=== PATIENT | female | born 1950 | race Caucasian/White ===

== ENCOUNTER 2017-04-25 09:00 | Emergency (ER) | payer MEDICARE, MEDICAID, SELFPAY ==
[2017-04-25 09:00] VITALS: BP 155/60; PULSE 74; RESP 18; TEMP 37.9; O2SAT 96; BMI 32.0
--- NOTE | 2017-04-25 09:07 | RAD_ITS ---
STUDY: X-RAY CHEST REASON FOR EXAM: Female, 67 years old. Fever and productive cough. TECHNIQUE: PA and lateral views of the chest. COMPARISON: Comparison is made with prior study dated April 19, 2015. FINDINGS: Right infrahilar infiltrate. There is no demonstrated pleural abnormality. Normal size heart. Normal mediastinum and artis. Normal visualized pulmonary arteries. There is atherosclerotic calcification of the aortic arch with tortuosity. There are degenerative changes of the visualized thoracic spine. Normal visualized ribs, clavicles, and shoulders. There is no demonstrated abnormality of the visualized soft tissue structures of the upper abdomen. RAD/Chest PA and Lateral IMPRESSION: Right infrahilar infiltrate. Electronically Signed: Brown Yanes MD at 9:59 EST Tel [phone], Service support ,
--- NOTE | 2017-04-25 09:14 | ED.VISSUMM ---
- ER Visit Summary Date of Service: 04/25/17 Chief Complaint: Headache, fever with chills, productive cough and myalgias arthralgias that started last evening History of Present Illness: The patient is a 67 F multiple medical problems who presents with flulike symptoms that started last evening. She complains of headache without photophobia or neck stiffness. She denies rash. She does complain of rhinorrhea, nasal congestion postnasal drainage as well as sore throat. She denies ear discomfort. She does have a cough which is productive. She states she has not looked at her sputum. She denies any chest pain. She does complain of myalgias and arthralgias. She states she did get a flu shot this year. She continues to smoke. She has no GI or symptoms. Please read written note for complete review of systems, which was otherwise negative. Physical Examination: No signs are marked for an elevated temperature and blood pressure. She appears ill. She does not appear toxic. HEENT exam is remarkable for rhinorrhea and postnasal drainage. There is no erythema or exudate. Neck is supple. TMs are normal. She has no photophobia. Lungs are clear to auscultation with good mirror bilateral. Heart is regular without murmur, gallop or rub. There is no asymmetry, swelling, discoloration, leg vein distention, palpable cords or tenderness along the distribution of the deep venous system. There are no skin lesions or rash noted. Exam is nonfocal. Test Results: Chest x-ray was reviewed by me and reveals an infiltrate on the lateral only. The radiologist interpretation was read and he is in agreement. Emergency Department Course and Treatment: Since patient has history of COPD and reports productive cough chest x-ray was obtained and rapid influenza test. Treatment Plan: She is not febrile, tachypnic, tachycardic or hypoxic she was treated as an outpatient. She received her first dose of antibiotic in the department. She was instructed to follow-up with Dr. Calero or Dr. Marx if not better within 48-72 hours. Disposition: Discharged to home Impression: Community-acquired pneumonia This note was generated with [employer] dictation software. It may contain incorrect words, spelling, and punctuation that were not noted in review of the chart prior to signing ED Disposition - Plan for ED Patient: Disposition: Home or Assisted Living Chief Complaint: Fever Instructions: ED Pneumonia Adult Prescriptions: Doxycycline [Vibramycin] 100 mg PO BID #14 cap Referrals: Feng Hayes MD [Primary Care Provider] - 3-5 Days if not improving Additional Instructions: Your prescription was electronically transmitted to [facility] [place] your designated pharmacy of choice
[2017-04-25 10:35] VITALS: O2SAT 95
[2017-04-25 10:45] VITALS: BP 162/68; PULSE 67; RESP 18; TEMP 39; O2SAT 95
[2017-04-25] MEDS: Doxycycline 100 MG CAPSULE PO (10:51)
--- NOTE | 2017-04-25 10:56 | ED.RN ---
1052-Verbal and written d/c instructions given. All questions answered. Aware of when to come back to ED and when to follow up with PCP. Gait slow and steady out of department.
== END 2017-04-25 10:55 | disposition home or self-care (01) ==
PROVIDERS: Emergency Provider Emergency Medicine; Family Provider Family Medicine; PCP Family Medicine
DX: J18.9 Pneumonia, unspecified organism (principal); J34.89 Other specified disorders of nose and nasal sinuses; R09.81 Nasal congestion; R09.82 Postnasal drip; J02.9 Acute pharyngitis, unspecified; I25.10 Atherosclerotic heart disease of native coronary artery without angina pectoris; J44.9 Chronic obstructive pulmonary disease, unspecified; I10 Essential (primary) hypertension; E78.00 Pure hypercholesterolemia, unspecified; I73.9 Peripheral vascular disease, unspecified; Z79.01 Long term (current) use of anticoagulants; Z79.02 Long term (current) use of antithrombotics/antiplatelets; Z79.899 Other long term (current) drug therapy; Z72.0 Tobacco use
CPT/HCPCS: 71046; 87804; 99283

== ENCOUNTER 2017-04-26 11:20 | Emergency (ER) | payer MEDICARE, MEDICAID, SELFPAY ==
[2017-04-26 11:22] VITALS: BP 123/67; PULSE 79; RESP 20; TEMP 38.3; O2SAT 94; BMI 32.0
[2017-04-26 11:50] VITALS: O2SAT 92
--- NOTE | 2017-04-26 12:00 | ED.VISSUMM ---
- ER Visit Summary Date of Service: 04/26/17 Chief Complaint: Seen yesterday for pneumonia and no better History of Present Illness: The patient is a 67 F seen by me yesterday and diagnosed with pneumonia. She was placed on antibiotics. She is taken a total of 3 doses. She was given first dose in the emergency department. She took a dose last evening and 1 dose today. She states she does not feel better. She denies headache, visual, ocular or auditory symptoms. Her cough is productive. There is no chest pain. There is no leg pain, swelling discoloration. She has no GI or symptoms. Daughter stated I want her admitted . Physical Examination: Vital signs are unremarkable. She is not hypoxic. She is not tachycardic or tachypneic. She is febrile with temperature 101 which is an improvement from yesterday. She does not appear ill or toxic. HEENT exam is remarkable for nasal congestion. Lungs reveal diminished breath sounds posteriorly on the right in the area of the infiltrate noted on x-ray obtained yesterday. There is egophony. Heart is regular without murmur, gallop or rub. Abdomen is soft nontender. Lower extremity exam reveals no swelling, discoloration, asymmetry, leg vein distention, palpable cords times on the disposition deep venous system. She is alert oriented ?3. Test Results: She was ambulated. Prior to ambulation pulse ox 93% on room air. During ambulation her pulse ox went up to 95%. Emergency Department Course and Treatment: Since she is not tachycardic, tachypnic or hypoxic and is not worse than yesterday and if anything better than yesterday based on my exam patient will be discharged home. Both the patient and the daughter were informed she does not meet criteria for admission. Daughter seemed miffed. Treatment Plan: To new antibiotics. Stop smoking. Disposition: Discharge to home to follow-up with her primary care physician Impression: Community acquired pneumonia, reevaluation This note was generated with [employer] dictation software. It may contain incorrect words, spelling, and punctuation that were not noted in review of the chart prior to signing ED Disposition - Plan for ED Patient: Disposition: Home or Assisted Living Chief Complaint: Shortness of Breath Instructions: ED Pneumonia Adult Referrals: Feng Hayes MD [Primary Care Provider] - 1-2 Days if not improving Additional Instructions: It is in your best interest to stop smoking.
[2017-04-26 12:08] VITALS: BP 138/79; PULSE 91; RESP 22; O2SAT 94
--- NOTE | 2017-04-26 12:09 | ED.RN ---
THIS NURSE REVIEWED D/C INSTRUCTIONS WITH PT. PT VERBALIZED UNDERSTANDING OF INSTRUCTIONS. PT DENIES FURTHER NEEDS OR QUESTIONS AT THIS TIME
== END 2017-04-26 12:10 | disposition home or self-care (01) ==
PROVIDERS: Emergency Provider Emergency Medicine; Family Provider Family Medicine; PCP Family Medicine
DX: J18.9 Pneumonia, unspecified organism (principal); E66.9 Obesity, unspecified; I25.10 Atherosclerotic heart disease of native coronary artery without angina pectoris; J44.9 Chronic obstructive pulmonary disease, unspecified; I10 Essential (primary) hypertension; E78.00 Pure hypercholesterolemia, unspecified; I25.2 Old myocardial infarction; I48.91 Unspecified atrial fibrillation; Z79.2 Long term (current) use of antibiotics; Z79.02 Long term (current) use of antithrombotics/antiplatelets; Z79.01 Long term (current) use of anticoagulants; Z79.899 Other long term (current) drug therapy; Z72.0 Tobacco use
CPT/HCPCS: 99282

== ENCOUNTER → 2017-05-06 09:48 | Outpatient (CLI) | payer MEDICARE, MEDICAID, SELFPAY ==
--- NOTE | 2017-05-06 11:00 | ADU_ITS ---
Reason For Study: PVD Right Velocities Left Velocities Common Femoral Artery, mid = 163 cm./sec. Common Femoral Artery, mid = 193 cm./sec. Supf Femoral Artery, prox = 41.6 cm./sec. Supf. Femoral Artery, prox = 172 cm./sec. Unable to obtain flow from SFA prox/mid through SFA prox/mid= 255 cm/s. SFA distal. Supf. Femoral Artery, mid = 61.3 cm./sec. Profunda Femoral Artery = 151 cm./sec. Supf. Femoral Artery, dist = 73.1 cm./sec. Popliteal Artery, mid = 63.9 cm./sec. Profunda Femoral Artery = 372 cm./sec. Post. Tibial Artery, prox = 61.6 cm./sec. Popliteal Artery, mid = 130 cm./sec. Post. Tibial Artery, mid = 65.7 cm./sec. Post. Tibial Artery, prox = 83.8 cm./sec. Post. Tibial Artery, dist = 78.6 cm./sec. Post Tibial Artery, mid = 102 cm./sec. Peroneal Artery, prox = 35.2 cm./sec. Post Tibial Artery, dist. = 256 cm./sec. Peroneal Artery, mid = 42.8 cm./sec. Peroneal Artery, prox = 45.7 cm./sec. Peroneal Artery,dist = 36.9 cm./sec. Peroneal Artery, mid = 76.8 cm./sec. Ant. Tibial Artery, prox = 24.6 cm./sec. Peroneal Artery,dist. = 81.5 cm./sec. Ant. Tibial Artery, mid = 34.6 cm./sec. Ant.Tibial Artery, prox = 38.1 cm./sec. Ant. Tibial Artery, dist = 35.8 cm./sec. Ant. Tibial Artery, distal = 69.8 cm./sec. Unable to obtain flow in Mid KELLY. Interpretation Summary Occluded right superficial femoral artery. 3 vessel right infra-geniculate run off Severe stenosis left profunda femoral artery Patent left superfcial femoral artery Greater than 50% stenosis left posterior tibial artery Possibly occluded left mid anterior tibial artery Ordering Physician: Sathish Gar Performed By: Russell Irene RVT
--- NOTE | 2017-05-06 15:35 | LEAS ---
Arterial Study - Arterial Study Arterial Study: Bilateral lower extremity noninvasive arterial exam with exercise Right lower extremity The right calf index at rest are 0.78 with a right PT and DP ankle-brachial index at rest of 0.70.61 respectively with a digital index of only 0.35. The right PT and DP have biphasic and monophasic Doppler waveforms. With exercise the right BARON goes from resting 0.7 to media after exercise 2.3 there is recovery at 5 minutes Left lower extremity Left calf index is 0.94. The left PT and DP ankle-brachial index at rest is 0.92 and 1. The digital index is 0.74. The left posterior tibial and dorsalis pedis demonstrate triphasic waveforms at rest. Volume pulse recordings demonstrate maintained waveforms at the calf ankle and digital level. With exercise the left BARON goes from resting 1 to immediately after exercise at 0.95. Impression Findings are consistent with occlusion of the right superficial femoral artery or inflow vessels.. Findings are well within the range of vascular claudication bordering upon rest pain. The left lower extremity would suggest mild occlusive disease with abnormal ankle-brachial index at the calf. There is a very slight decline with exercise. Critical ischemia is not identified. These findings would be correlating with mild vascular claudication. Location of the disease not identified on this examination. This examination is correlated with duplex imaging of bilateral lower extremity and on that examination occlusion of the right superficial femoral artery was identified Sathish Gar M.D., F.A.C.S.
== END ==
PROVIDERS: Family Provider Family Medicine; PCP Family Medicine; Visit Provider Surgery
DX: I73.9 Peripheral vascular disease, unspecified (principal); M79.606 Pain in leg, unspecified
CPT/HCPCS: 93924; 93925

== ENCOUNTER → 2017-05-28 10:05 | Outpatient (CLI) | payer MEDICARE, MEDICAID, SELFPAY ==
[2017-05-28 12:43] LABS: AST(SGOT) 19 U/L (15-37); Alanine Aminotransfer ALT/SGPT 31 U/L (13-56); Albumin, Serum 3.4 g/dL (3.2-5.0); Alkaline Phosphatase 114 U/L (45-117); Bilirubin, Direct 0.16 mg/dL (0.00-0.30); Cholesterol 125 mg/dL (200); Globulin 3.5 g/dL (2.2-4.2); High Density Lipoprotein 46 mg/dL; Protein, Total 6.9 g/dL (6.4-8.2); Triglycerides 109 mg/dL; Very Low Density Lipoprotein 22 mg/dL (5-40)
== END ==
PROVIDERS: Family Provider Family Medicine; PCP Family Medicine; Visit Provider Internal Medicine Cardiovascular Disease
DX: I25.10 Atherosclerotic heart disease of native coronary artery without angina pectoris (principal); E78.5 Hyperlipidemia, unspecified
CPT/HCPCS: 36415; 80061; 80076

== ENCOUNTER 2017-07-28 18:33 | Emergency (ER) | payer MEDICARE, MEDICAID, SELFPAY ==
[2017-07-28] VITALS (8 sets, daily range): BP systolic 137–222; BP diastolic 56–97; PULSE 46–57; RESP 17–98; O2SAT 95–97; BMI 32.3
--- NOTE | 2017-07-28 18:40 | RAD_ITS ---
XR Chest 1 View INDICATION: CHEST PAIN COMPARISON: October 01, 2016, April 25, 2017 FINDINGS: Heart size and pulmonary vascularity are within normal limits. The lungs are clear without evidence of airspace consolidation or pleural effusion. The osseous structures are grossly unremarkable. RAD/Chest 1 View (Portable) IMPRESSION: No radiographic evidence of acute intrathoracic disease. at 1902 Reported and signed by: Delmy Simmons MD Electronically Signed: Delmy Simmons MD at 19:01 EDT Tel , Service support ,
--- NOTE | 2017-07-28 18:40 | EKG12_ITS ---
Test Reason : CP Blood Pressure : / mmHG Vent. Rate : 057 BPM Atrial Rate : 057 BPM P-R Int : 180 ms QRS Dur : 108 ms QT Int : 500 ms P-R-T Axes : 066 -04 058 degrees QTc Int : 486 ms Sinus bradycardia Septal infarct , age undetermined Abnormal ECG Confirmed by HUYEN JEAN-BAPTISTE, TAYLOR ([id number]), proposal editor HARMONY CORRIGAN ([id number]) on 08/01/2017 2:51:12 PM Referred By: ZACHERY Confirmed By:TAYLOR MATSON MD
--- NOTE | 2017-07-28 18:41 | ED.RN ---
CALLED FOR EKG PER RN REQUEST, PULLED OLD EKG'S FOR
[2017-07-28 18:58] LABS: Absolute Lymphocyte Count 1.51 X10^3/ul (0.83-4.51); Absolute Neutrophil Count 4.7 X10^3/uL (2.0-7.7); Basophil# 0.01 X10^3/uL; Basophil% 0.1 % (0-1); Eosinophil# 0.17 X10^3/uL; Eosinophils% 2.5 % (0-5); Hematocrit 39.9 % (37-47); Hemoglobin 13.5 g/dl (12.0-15.0); Lymphocyte # 1.51 X10^3/ul (4.0); Lymphocyte % 22.1 % (19-41); Mean Corp Hgb Conc 33.8 g/gl (32-36); Mean Corpuscular Hgb 29.5 pg (27.0-32.0); Mean Corpuscular Volume 87.3 fL (81-99); Monocyte# 0.44 X10^3/uL; Monocyte% 6.5 % (0-10); Neutrophil # 4.67 X10^3/uL (2.7-7.7); Neutrophil % 68.5 % (47-70); POSITIVE COUNT NO; POSITIVE DIFFERENTIAL NO; POSITIVE MORPHOLOGY NO; Platelet Count 213 K/mm3 (150-450); RBC Distribution Width CV 13.7 % (11.6-14.6); RBC Distribution Width SD 43.2 fl (35.1-43.9); Red Blood Count 4.57 M/mm3 (4.2-5.4); White Blood Count 6.8 K/mm3 (4.4-11.0)
[2017-07-28] MEDS: Aspirin 81 MG TAB.CHEW 324 MG PO (18:59)
--- NOTE | 2017-07-28 18:59 | ED.VISSUMM ---
- ER Visit Summary Date of Service: 07/28/17 Chief Complaint: Chest pain History of Present Illness: The patient is a 67 F with history of significant coronary vascular disease status post stents by 7, paroxysmal atrial fibrillation, peripheral vascular disease presents to the emergency department chest pain. Patient follows with Dr. Treviño. She states she has been in her normal state of health. Today, at approximately 4:00, she had a left-sided chest pain that went into her left neck and left arm. It started while she was driving. She states that she took 3 of her nitro at home and help the pain. The pain then returned. She states this is very similar to when she is a heart attack in the past. She did have a stress test about a year ago. Her last heart catheterization she thinks was 2 years ago. She did have to get new stent at that time. She has been compliant with all of her medications. She is on Xarelto and Plavix. Physical Examination: Vital signs reviewed General: Well-nourished, well-developed Head: Normocephalic, atraumatic Eyes: Pupils equal and reactive, extraocular muscles intact Neck, supple, no lymphadenopathy Heart: Regular rate and rhythm Respiratory: No distress, clear bilaterally Abdomen: Soft, nontender, nondistended, no peritoneal signs Back: Nontender Extremities: Nontender, no edema, no cords Skin: Normal color no rash Neuro: Alert and oriented, no focal or lateralizing deficits Test Results: [] Emergency Department Course and Treatment: The patient presents with chest pain. She was given sublingual nitro nitro paste was applied. She was pain-free. Her initial EKG did not show acute ischemic change. A repeat EKG was also unremarkable. My plan was to admit the patient for cardiac rule out especially given her significant history. The patient states that she cannot stay. She has custody of her grandchild and has no one that can take care of it. I did discuss this with Dr. Treviño who actually came and saw the patient in the emergency department. He did agree with my plan for at least a repeat troponin to make sure she was not actively infarcting. The patient agreed with this. She had a repeat cardiac enzymes which were normal. A repeat EKG was also unchanged. She remained pain-free. We are going to increase her Imdur at this time. The patient will leave AGAINST MEDICAL ADVICE, but is aware that if anything changes she will return immediately. She does have capacity to make her own decisions. The patient is discharged. Treatment Plan: [] Disposition: Discharge Impression:. Chest pain with history of coronary vascular disease This note was generated with [employer] dictation software. It may contain incorrect words, spelling, and punctuation that were not noted in review of the chart prior to signing ED Disposition - Plan for ED Patient: Disposition: Home or Assisted Living Chief Complaint: Chest Pain Instructions: ED Chest Pain Atypical Unkn Cause Prescriptions: Isosorbide Mononitrate [Imdur] 60 mg PO BID #60 tab Referrals: Jaime Treviño MD [STAFF PHYSICIAN] -
[2017-07-28] MEDS: 0.9% Normal Saline 1,000 ML 150 ML IV (19:05)
--- NOTE | 2017-07-28 19:05 | EKG12_ITS ---
Test Reason : REPEAT Blood Pressure : / mmHG Vent. Rate : 047 BPM Atrial Rate : 047 BPM P-R Int : 154 ms QRS Dur : 104 ms QT Int : 536 ms P-R-T Axes : -15 -08 041 degrees QTc Int : 474 ms Sinus bradycardia Otherwise normal ECG Confirmed by TAYLOR MATSON MD ([id number]), primer expeditor and drier HARMONY CORRIGAN ([id number]) on 08/01/2017 2:51:33 PM Referred By: ADRIAN Confirmed By:TAYLOR MATSON MD
[2017-07-28 19:16] LABS: Anion Gap 6 (5-15); BUN 12 mg/dL (7-18); BUN/Creat Ratio 12.5 RATIO (10-20); Calcium,Total 8.9 mg/dL (8.5-10.1); Chloride 108 mmol/L (98-107); Creatinine, Serum 0.96 mg/dL (0.55-1.02); EST Glomerular Filtration Rate 61 mL/min (>60); Est Glom Filt Rate - Afr Amer 74 mL/min (>60); Estimated Creatinine Clearance 44.36 ml/min; Glucose 95 mg/dL (74-106); Potassium 3.6 mmol/L (3.5-5.1); Sodium Level 143 mmol/L (136-145)
[2017-07-28] MEDS: Nitroglycerin Oint 1 INCH PACKET TRANSDERM. (19:16)
--- NOTE | 2017-07-28 22:23 | ED.RN ---
REVIEWED D/C INSTRUCTIONS, FOLLOW UP CARE, AND S/S THAT WOULD WARRANT A RETURN TO THE ED WITH PT. PT VERBALIZED AN UNDERSTANDING AND DENIES FURTHER QUESTIONS FOR THIS RN. PT SKIN P/W/D, RESP EVEN AND UNLABORED, PT A&O X3, NO DISTRESS NOTED. PT AMBULATED OUT OF ED, GAIT STEADY.
== END 2017-07-28 22:24 | disposition home or self-care (01) ==
LOC: ED 19:04
PROVIDERS: Emergency Provider Emergency Medicine; Family Provider Family Medicine; PCP Family Medicine
DX: R07.9 Chest pain, unspecified (principal); I25.10 Atherosclerotic heart disease of native coronary artery without angina pectoris; R11.0 Nausea; R61 Generalized hyperhidrosis; R06.00 Dyspnea, unspecified; I73.9 Peripheral vascular disease, unspecified; I48.0 Paroxysmal atrial fibrillation; I25.2 Old myocardial infarction; E11.9 Type 2 diabetes mellitus without complications; I10 Essential (primary) hypertension; E78.00 Pure hypercholesterolemia, unspecified; Z87.891 Personal history of nicotine dependence; Z95.5 Presence of coronary angioplasty implant and graft; Z79.01 Long term (current) use of anticoagulants; Z79.02 Long term (current) use of antithrombotics/antiplatelets; Z79.899 Other long term (current) drug therapy
CPT/HCPCS: 71045; 80048; 84484; 85025; 93005; 96360; 96361; 99285; A4216

== ENCOUNTER → 2017-08-12 14:50 | Outpatient (CLI) | payer MEDICARE, MEDICAID, SELFPAY ==
[2017-08-12 17:07] LABS: Thyroid Stim Hormone (TSH) 1.85 uIU/mL (0.358-3.74)
== END ==
PROVIDERS: Physician Assistant Medical; Family Provider Family Medicine; PCP Family Medicine; Visit Provider Internal Medicine Cardiovascular Disease
DX: I10 Essential (primary) hypertension (principal)
CPT/HCPCS: 36415; 84436; 84443

== ENCOUNTER 2018-02-18 12:55 | Emergency (ER) | payer MEDICARE, MEDICAID, SELFPAY ==
[2018-02-18 12:55] VITALS: BMI 32.0
[2018-02-18 12:56] VITALS: BP 137/78; PULSE 56; RESP 16; TEMP 36.2; O2SAT 98; BMI 32.2
--- NOTE | 2018-02-18 13:15 | ED.VISSUMM ---
- ER Visit Summary Date of Service: 02/18/18 Chief Complaint: Left ring finger laceration History of Present Illness: The patient is a 68 F who presents with laceration to her left ring finger that occurred last night. Patient with using scissors and accidentally cut her left ring finger. Patient states the bleeding is been persistent. Patient states she is on Xarelto and Plavix. Patient denies any paresthesias or weakness. Patient states her last tetanus was less than 5 years ago. Patient states her pain is mild. Physical Examination: Vital signs are stable. Patient is afebrile. Patient is in no acute distress. Skin is warm and dry. There is a 1 cm partial-thickness avulsion laceration over the dorsal aspect of the PIP joint of the left ring finger. There is some mild bleeding noted. There is full range of motion of the MP, PIP, DIP joints. Sensation was intact light touch in all digits. Capillary refill is less than 2 seconds in all digits. The remaining physical exam is within normal limits. Emergency Department Course and Treatment: A Gelfoam and tube gauze dressing was applied. Patient was instructed to keep the left hand elevated. Patient was instructed to follow-up with her primary care physician in 5-7 days. Patient understood and was agreeable with the plan. All questions were answered. Disposition: Discharge home Impression: Avulsion laceration left ring finger This note was generated with [employer] dictation software. It may contain incorrect words, spelling, and punctuation that were not noted in review of the chart prior to signing ED Disposition - Plan for ED Patient: Chief Complaint: Laceration Diagnosis: Laceration of left ring finger w/o foreign body w/o damage to nail Instructions: ED Laceration Small Superf No Sutr, ED Laceration Old Not Sutr Referrals: Feng Hayes MD [Primary Care Provider] -
[2018-02-18 13:57] VITALS: BP 125/74; PULSE 62; RESP 14; O2SAT 98
== END 2018-02-18 14:00 | disposition home or self-care (01) ==
PROVIDERS: Emergency Provider Emergency Medicine; Family Provider Family Medicine; PCP Family Medicine
DX: S61.215A Laceration without foreign body of left ring finger without damage to nail, initial encounter (principal); W26.8XXA Contact with other sharp object(s), not elsewhere classified, initial encounter; Y93.9 Activity, unspecified; Y92.9 Unspecified place or not applicable; Z79.01 Long term (current) use of anticoagulants; Z79.02 Long term (current) use of antithrombotics/antiplatelets
CPT/HCPCS: 99283

== ENCOUNTER 2018-04-04 00:40 | Emergency (ER) | payer MEDICARE, MEDICAID, SELFPAY ==
[2018-04-04 00:41] VITALS: BP 146/67; PULSE 54; RESP 16; TEMP 36.8; O2SAT 98; BMI 32.4
--- NOTE | 2018-04-04 01:08 | ED.VISSUMM ---
- ER Visit Summary Date of Service: 04/04/18 Chief Complaint: Right leg wound History of Present Illness: The patient is a 68 F who presents with right leg wounds. About 1 week ago she tripped while walking up the steps and hit her right ha on the edge of some steps. She complains of sharp pain and some mild redness. She saw her primary care physician and was started on topical mupirocin as well as oral Keflex. She states the redness has not worsened but has not really changed either. No systemic symptoms such as fevers vomiting diarrhea. She is not diabetic. No leg swelling or calf pain. Physical Examination: Afebrile vitals are normal Moist mucous membranes Heart regular rate and rhythm Lungs clear Abdomen soft Patient has poorly healing 3 cm laceration of the right ha and a second 2 cm laceration. There is mild surrounding erythema more consistent with healing process then appearing cellulitic it is not hot to the touch there is no lymphangitic streaking Test Results: Not indicated Emergency Department Course and Treatment: I am not really convinced that the patient has cellulitis. This just appears to be poorly healing wound. There is no drainage. There is no streaking. It is not hot to the touch. She was advised to continue her current antibiotics but I would not change therapy. She was referred to the wound clinic. She understands return for new or worsening symptoms. She was discharged. Treatment Plan: [] Disposition: Discharge Impression: Wound check right leg This note was generated with [employer] dictation software. It may contain incorrect words, spelling, and punctuation that were not noted in review of the chart prior to signing ED Disposition - Plan for ED Patient: Chief Complaint: Other, Pain/Inj Referrals: Feng Hayes MD [Primary Care Provider] -
--- NOTE | 2018-04-04 01:10 | ED.DEP ---
ED Disposition - Plan for ED Patient: Chief Complaint: Other, Pain/Inj Instructions: ED Sutr Check No Infec Referrals: Feng Hayes MD [Primary Care Provider] - Clinic,Wound [None] -
[2018-04-04 01:25] VITALS: BP 140/74; PULSE 60; RESP 16; O2SAT 98
--- OUTSIDE RECORDS SUMMARY | 2018-06-08 09:04 | XMS RPT_ITS ---
:1950 Author Organization OHIP Support Name Relationship Address Phone R Unavailable Unavailable Unavailable WHITE, JEY Unavailable [address] + [place] [address] R Unavailable Unavailable Unavailable WHITE, JEY Unavailable [address] + [place] [address] R Unavailable Unavailable Unavailable WHITE, JEY Unavailable [address] + [place] [address] R Unavailable Unavailable Unavailable WHITE, JEY Unavailable [address] + [place] [address] R Unavailable Unavailable Unavailable WHITE, JEY Unavailable [address] + [place] [address] R Unavailable Unavailable Unavailable WHITE, JEY Unavailable [address] + [place] [address] R Unavailable Unavailable Unavailable WHITE, JEY Unavailable [address] + [place] [address] R Unavailable Unavailable Unavailable WHITE, JEY Unavailable [address] + [place] [address] R Unavailable Unavailable Unavailable WHITE, JEY Unavailable [address] + [place] [address] R Unavailable Unavailable Unavailable WHITE, JEY Unavailable [address] + [place] [address] R Unavailable Unavailable Unavailable WHITE, JEY Unavailable [address] + [place] [address] R Unavailable Unavailable Unavailable WHITE, JEY Unavailable [address] + [place] [address] R Unavailable Unavailable Unavailable WHITE, JEY Unavailable [address] + [place] [address] R Unavailable Unavailable Unavailable WHITE, JEY Unavailable [address] + [place] [address] R Unavailable Unavailable Unavailable WHITE, JEY Unavailable [address] + [place] [address] R Unavailable Unavailable Unavailable WHITE, JEY Unavailable [address] + [place] [address] R Unavailable Unavailable Unavailable WHITE, JEY Unavailable [address] + [place] [address] R Unavailable Unavailable Unavailable Care Team Providers Name Role Phone CORINNE GRACE (VOCATIONAL NURSING INSTRUCTOR) Attending Unavailable RUTTI, CORINNE (VOCATIONAL NURSING INSTRUCTOR) Referring Unavailable RUTTI, CORINNE (VOCATIONAL NURSING INSTRUCTOR) Attending Unavailable RUTTI, CORINNE (VOCATIONAL NURSING INSTRUCTOR) Referring Unavailable BRIANNE, CHERIE (VOCATIONAL NURSING INSTRUCTOR) Attending Unavailable CATHI HAYES) Attending Unavailable SUGEY, CORINNE (VOCATIONAL NURSING INSTRUCTOR) Referring Unavailable CATHI HAYES) Referring Unavailable RUTTI, CORINNE (VOCATIONAL NURSING INSTRUCTOR) Attending Unavailable FARIHA GUDINO Attending Unavailable CATHI HAYES) Attending Unavailable CATHI HAYES) Referring Unavailable BRIANNECHERIE MOHR (VOCATIONAL NURSING INSTRUCTOR) Attending Unavailable CATHI HAYES) Attending Unavailable PODLOGARAMINATA (VOCATIONAL NURSING INSTRUCTOR) Attending Unavailable CATHI HAYES) Referring Unavailable CATHI HAYES) Referring Unavailable JOSE LEAL (PT) Attending Unavailable PODLOGAMINATA KABA (VOCATIONAL NURSING INSTRUCTOR) Referring Unavailable FARIHA GUDINO Attending Unavailable CATHI HAYES) Attending Unavailable RUTTI, CORINNE (VANESSA) Attending Unavailable RUTTI, CORINNE (VANESSA) Attending Unavailable RUTTI, CORINNE (VOCATIONAL NURSING INSTRUCTOR) Referring Unavailable Bursley, Feng Primary Care Unavailable Johnathan Ponce Attending Unavailable Sathish Gar Attending Unavailable Bursley, Feng Referring Unavailable Bland, Werner Attending Unavailable Bursley, Feng Primary Care Unavailable Bursley, Feng Primary Care Unavailable Bland, Werner Attending Unavailable Sathish Gar Attending Unavailable Sathish Gar Referring Unavailable Bursley, Feng Primary Care Unavailable Sathish Gar Attending Unavailable Bursley, Feng Referring Unavailable Bursley, Feng Primary Care Unavailable Virgen Saha Attending Unavailable Kamila, Jackson Attending Unavailable Valorie Cox Referring Unavailable Bursley, Feng Primary Care Unavailable Kamila, Jaime Attending Unavailable Kamila, Jaime Referring Unavailable Bursley, Feng Primary Care Unavailable Sathish Gar Attending Unavailable Sathish Gar Attending Unavailable Bursley, Feng Primary Care Unavailable Antonio Mckeon Attending Unavailable CollierEvelyn Attending Unavailable Bursley, Feng Referring Unavailable Bursley, Feng Primary Care Unavailable Kamila, Jackson Attending Unavailable Kamila, Jackson Referring Unavailable Bursley, Feng Primary Care Unavailable Evelyn Collier Attending Unavailable Evelyn Collier Referring Unavailable Bursley, Feng Primary Care Unavailable Evelyn Collier Attending Unavailable Bursley, Feng Referring Unavailable Bursley, Feng Primary Care Unavailable Zack Marx Attending Unavailable Bursley, Feng Referring Unavailable Bursley, Feng Primary Care Unavailable Angel Can Attending Unavailable PROBLEMS PROBLEMS DATE TYPE CONDITION / CODE ATTENDING STATUS SOURCE 12/23/2017 Active Other specified NA Active [place] abnormal findings of Clinic Main blood chemistry / [place] R79.89(ICD-10) Repository 12/23/2017 Active Mixed hyperlipidemia NA Active [place] / E78.2(ICD-10) Clinic Main [place] Repository 11/25/2017 Unknown I25.10 - Collier, Active [place] Atherosclerotic heart [facility] coronary artery Repository without angina pectoris / I25.10(ICD-10) 11/25/2017 Unknown E78.5 - Collier, Active [place] Hyperlipidemia, [facility] unspecified / Hospital E78.5(ICD-10) Repository 11/25/2017 Unknown I48.0 - Paroxysmal Collier, Active [place] atrial fibrillation / [facility] I48.0(ICD-10) Hospital Repository 11/21/2017 Active Unknown / CHERIE PERKINS Active [place] UNK(Unknown) (VOCATIONAL NURSING INSTRUCTOR) Clinic Main [place] Repository 11/10/2017 Active Other injury of [facility] unspecified body Clinic Main region, initial [place] encounter / Repository T14.8XXA(ICD-10) 11/10/2017 Active Spontaneous NA [facility] ecchymoses / Clinic Main R23.3(ICD-10) [place] Repository 09/05/2017 Active Essential (primary) NA Active [place] hypertension / Clinic Main I10(ICD-10) [place] Repository 09/05/2017 Active 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 Clinic Main therapy / [place] Z79.899(ICD-10) Repository 08/12/2017 Unknown I10 - Essential Nando, Active [place] (primary) Evelyn Gerard [facility] hypertension / Hospital I10(ICD-10) Repository 08/12/2017 Unknown R07.9 - Chest pain, Nando, Active [place] unspecified / Evelyn Gerard [facility] R07.9(ICD-10) Hospital Repository 05/06/2017 Unknown M79.606 - Pain in CebulSathish Active [place] leg, unspecified / Community M79.606(ICD-10) Hospital Repository 06/20/2017 Unknown I73.9 - Peripheral CebuSathish amos Active [place] vascular disease, Community unspecified / Hospital I73.9(ICD-10) Repository 04/30/2017 Active Other specified NA Active [place] symptoms and signs Clinic Main involving the [place] circulatory and Repository respiratory systems / R09.89(ICD-10) PROCEDURES PROCEDURES No Procedure Records FoundRESULTS RESULTS PROGRESS Observed: 04/10/2018 Status: COMPLETED Source: [place] 1:01 PM [facility] REPOSITORY HNO ID: [id number] Author: Corinne Grace Service: (none) Author Type: Nurse Practitioner Type: Progress Notes Filed: 04/10/2018 1:50 PM Note Text: 04/10/2018 Patient presents with: Recheck: 1wk fall SUBJECTIVE: This is a 68 year old that is here today for follow up skin infection after a fall. She states that she feels that things are getting better. Her daughter is helping her clean and dress the wounds BID. She states that they seem to be getting smaller. polishing machine tender. No warmth. No drainage. No fever or chills. No streaking. She states that she has not had any further falls. She is now wearing shoes on the stairs that she fell on rather than house shoes. PAST MEDICAL HISTORY Diagnosis Date - Atrial fibrillation (HCC) 07/16/2011 - CAD (coronary artery disease) seeing Dr. Treviño - Chronic lower back pain - DDD (degenerative disc disease), lumbar - Depression - GERD (gastroesophageal reflux disease) - H/O heart artery stent 7 Stents, last 2006 - Hypertension - IBS (irritable bowel syndrome) - Myocardial infarction ([facility]) x2 - Obesity - Ovarian cancer ([facility]) 09/13/[address] Blank - PAD (peripheral artery disease) ([facility]) Dr. Sathish Gar - Restless leg syndrome 07/16/2011 - Sleep apnea on Bipap - Tobacco use - Vulvovaginitis 07/16/2011 ALLERGIES Patient has no known allergies. MEDICATIONS Current Outpatient Prescriptions: ranitidine (ZANTAC) 150 mg tablet Take 1 tablet by mouth twice daily. cephALEXin (KEFLEX) 500 mg capsule Take 1 capsule by mouth four times daily for 10 days. dicyclomine (BENTYL) 10 mg capsule Take 1 capsule by mouth before meals and at bedtime. mupirocin (BACTROBAN) 2 % cream Apply 1 application to affected area twice daily. Location: left ring finger ADVAIR DISKUS 500-50 mcg/dose dsdv Inhale 1 Puff as instructed once daily. phenazopyridine (PYRIDIUM) 100 mg tablet Take 1 tablet by mouth three times daily as needed. atorvastatin (LIPITOR) 40 mg tablet TAKE 1 TABLET EVERY DAY amitriptyline (ELAVIL) 25 mg tablet TAKE 3 TABLETS AT BEDTIME pramipexole (MIRAPEX) 1 mg tablet Take 1 tablet by mouth daily at bedtime. citalopram (CELEXA) 40 mg tablet TAKE 1 TABLET EVERY DAY Cholecalciferol, Vitamin D3, (VITAMIN D) 1,000 unit cap Take 1,000 Units by mouth once daily. isosorbide mononitrate ER (IMDUR) 60 mg 24 hr tablet Take 1 tablet by mouth once daily. metoprolol tartrate, short acting, (LOPRESSOR) 100 mg tablet Take 1 tablet by mouth twice daily. ascorbic acid, vitamin C, (VITAMIN C) 500 mg tablet Take 500 mg by mouth once daily. ALBUTEROL SULFATE (VENTOLIN HFA INHALATION) Inhale 1 Puff as instructed as needed. amLODIPine (NORVASC) 10 mg tablet Take 1 tablet by mouth once daily. clopidogrel (PLAVIX) 75 mg tablet Take 1 tablet by mouth once daily. amiodarone (PACERONE) 200 mg tablet Take 1 tablet by mouth once daily. Multivitamin capsule Take 1 capsule by mouth once daily. VITAMIN E, BULK, MISC lisinopril (ZESTRIL, PRINIVIL) 40 mg tablet Take 1 tablet by mouth once daily. acetaminophen (TYLENOL EXTRA STRENGTH) 500 mg tablet Take 500 mg by mouth every 6 hours as needed. diphenoxylate-atropine sulfate (LOMOTIL) 2.5-0.025 mg/5 mL liquid Take 5 mL by mouth four times daily as needed. rivaroxaban (XARELTO) 20 mg tablet Take 20 mg by mouth daily with dinner. MELATONIN ORAL Take by mouth once daily. lidocaine (LIDODERM) 5 %(700 mg/patch) Apply 1 Patch as directed every 12 hours. nitroglycerin sublingual (NITROSTAT) 0.4 mg SL tablet Dissolve 1 tablet under the tongue as needed. FOR CHEST PAIN. IF NO RELIEF CALL 911 No current facility-administered medications for this visit. Medications and allergies reviewed by this provider. SOCIAL HISTORY Social History Marital status: Spouse name: Years of education: Number of children: 3 Occupational History Occupation Employer Comment Retired Social History Main Topics Smoking status: Former Smoker Packs/day: 0.00 Years: 47.00 Types: Cigarettes Quit date: 04/24/2017 Smokeless tobacco: Never Used Comment: <5 per day Alcohol use: No Drug use: No Sexual activity: No Comment: Postmenopausal REVIEW OF SYSTEMS see HPI OBJECTIVE: BP 112/70 Pulse (!) 53 Resp 12 Wt 77.1 kg (170 lb) SpO2 98% BMI 32.51 kg/m? . Vital signs reviewed by this provider. PHYSICAL EXAMINATION: General appearance: Well appearing, alert, in no acute distress, well-hydrated, well nourished. Skin: Skin color, texture, turgor normal, no suspicious rashes or lesions. Proximal wound still open no drainage now measuring 1.5 x 0.5 with surrounding erythema 3 x 1.5 and distal mostly closed measuring 0.25 x 1 with surrounding erythema 1 x 1. Both improved. No heat. Lungs: lungs clear to auscultation. No wheezing, rhonchi, rales Heart: RRR without murmur, gallop, or rubs. No ectopy Extremities: No deformities, edema, see skin. Good capillary refill. ASSESSMENT/PLAN: 1. Skin infection - ICD9: 686.9, ICD10: L08.9 - Continue treatment with Cephalaxin (Keflex) - No lymphangetic streaking, this was defined for patient to watch for and to seek medical care immediately if appears - Follow up as needed if does not continue to improve Corinne Grace APRN.CNP CNOV Observed: 04/10/2018 Status: COMPLETED Source: [place] 12:40 PM [facility] REPOSITORY Office Visit (FAMPWS) KATHY PURI ([id number]) 1950 F Date Time Provider Department 04/10/18 12:40 PM CORINNE GRACE (VANESSA) FAMPWS During your visit today, we recorded the following information about you: Pulse Respiration Blood pressure Weight 53/minute 12/minute 112/70 77.1 kg Corinne Grace APRN.CNP 04/10/2018 1:50 PM Signed 04/10/2018 Patient presents with: Recheck: 1wk fall SUBJECTIVE: This is a 68 year old that is here today for follow up skin infection after a fall. She states that she feels that things are getting better. Her daughter is helping her clean and dress the wounds BID. She states that they seem to be getting smaller. polishing machine tender. No warmth. No drainage. No fever or chills. No streaking. She states that she has not had any further falls. She is now wearing shoes on the stairs that she fell on rather than house shoes. PAST MEDICAL HISTORY Diagnosis Date - Atrial fibrillation ([facility]) 07/16/2011 - CAD (coronary artery disease) seeing Dr. Treviño - Chronic lower back pain - DDD (degenerative disc disease), lumbar - Depression - GERD (gastroesophageal reflux disease) - H/O heart artery stent 7 Stents, last 2006 - Hypertension - IBS (irritable bowel syndrome) - Myocardial infarction ([facility]) x2 - Obesity - Ovarian cancer ([facility]) 09/13/[address] Blank - PAD (peripheral artery disease) ([facility]) Dr. Sathish Gar - Restless leg syndrome 07/16/2011 - Sleep apnea on Bipap - Tobacco use - Vulvovaginitis 07/16/2011 ALLERGIES Patient has no known allergies. MEDICATIONS Current Outpatient Prescriptions: ranitidine (ZANTAC) 150 mg tablet Take 1 tablet by mouth twice daily. cephALEXin (KEFLEX) 500 mg capsule Take 1 capsule by mouth four times daily for 10 days. dicyclomine (BENTYL) 10 mg capsule Take 1 capsule by mouth before meals and at bedtime. mupirocin (BACTROBAN) 2 % cream Apply 1 application to affected area twice daily. Location: left ring finger ADVAIR DISKUS 500-50 mcg/dose dsdv Inhale 1 Puff as instructed once daily. phenazopyridine (PYRIDIUM) 100 mg tablet Take 1 tablet by mouth three times daily as needed. atorvastatin (LIPITOR) 40 mg tablet TAKE 1 TABLET EVERY DAY amitriptyline (ELAVIL) 25 mg tablet TAKE 3 TABLETS AT BEDTIME pramipexole (MIRAPEX) 1 mg tablet Take 1 tablet by mouth daily at bedtime. citalopram (CELEXA) 40 mg tablet TAKE 1 TABLET EVERY DAY Cholecalciferol, Vitamin D3, (VITAMIN D) 1,000 unit cap Take 1,000 Units by mouth once daily. isosorbide mononitrate ER (IMDUR) 60 mg 24 hr tablet Take 1 tablet by mouth once daily. metoprolol tartrate, short acting, (LOPRESSOR) 100 mg tablet Take 1 tablet by mouth twice daily. ascorbic acid, vitamin C, (VITAMIN C) 500 mg tablet Take 500 mg by mouth once daily. ALBUTEROL SULFATE (VENTOLIN HFA INHALATION) Inhale 1 Puff as instructed as needed. amLODIPine (NORVASC) 10 mg tablet Take 1 tablet by mouth once daily. clopidogrel (PLAVIX) 75 mg tablet Take 1 tablet by mouth once daily. amiodarone (PACERONE) 200 mg tablet Take 1 tablet by mouth once daily. Multivitamin capsule Take 1 capsule by mouth once daily. VITAMIN E, BULK, MISC lisinopril (ZESTRIL, PRINIVIL) 40 mg tablet Take 1 tablet by mouth once daily. acetaminophen (TYLENOL EXTRA STRENGTH) 500 mg tablet Take 500 mg by mouth every 6 hours as needed. diphenoxylate-atropine sulfate (LOMOTIL) 2.5-0.025 mg/5 mL liquid Take 5 mL by mouth four times daily as needed. rivaroxaban (XARELTO) 20 mg tablet Take 20 mg by mouth daily with dinner. MELATONIN ORAL Take by mouth once daily. lidocaine (LIDODERM) 5 %(700 mg/patch) Apply 1 Patch as directed every 12 hours. nitroglycerin sublingual (NITROSTAT) 0.4 mg SL tablet Dissolve 1 tablet under the tongue as needed. FOR CHEST PAIN. IF NO RELIEF CALL 911 No current facility-administered medications for this visit. Medications and allergies reviewed by this provider. SOCIAL HISTORY Social History Marital status: Spouse name: Years of education: Number of children: 3 Occupational History Occupation Employer Comment Retired Social History Main Topics Smoking status: Former Smoker Packs/day: 0.00 Years: 47.00 Types: Cigarettes Quit date: 04/24/2017 Smokeless tobacco: Never Used Comment: <5 per day Alcohol use: No Drug use: No Sexual activity: No Comment: Postmenopausal REVIEW OF SYSTEMS see HPI OBJECTIVE: BP 112/70 Pulse (!) 53 Resp 12 Wt 77.1 kg (170 lb) SpO2 98% BMI 32.51 kg/m? . Vital signs reviewed by this provider. PHYSICAL EXAMINATION: General appearance: Well appearing, alert, in no acute distress, well-hydrated, well nourished. Skin: Skin color, texture, turgor normal, no suspicious rashes or lesions. Proximal wound still open no drainage now measuring 1.5 x 0.5 with surrounding erythema 3 x 1.5 and distal mostly closed measuring 0.25 x 1 with surrounding erythema 1 x 1. Both improved. No heat. Lungs: lungs clear to auscultation. No wheezing, rhonchi, rales Heart: RRR without murmur, gallop, or rubs. No ectopy Extremities: No deformities, edema, see skin. Good capillary refill. ASSESSMENT/PLAN: 1. Skin infection - ICD9: 686.9, ICD10: L08.9 - Continue treatment with Cephalaxin (Keflex) - No lymphangetic streaking, this was defined for patient to watch for and to seek medical care immediately if appears - Follow up as needed if does not continue to improve Corinne Grace APRN.VOCATIONAL NURSING INSTRUCTOR Referring Provider: CORINNE GRACE ([facility]) [[id number]] Allergies As of Date: 04/10/2018 (No Known Allergies) Date Reviewed: 04/10/2018 Reviewed by: Velia Saleh) EMMY Roy - Fully Assessed Reason for Visit: Recheck [92] Cmt: 1wk fall Primary Visit Diagnosis:Skin infection [L08.9] Prescriptions as of 04/10/2018 Sig: RANITIDINE 150 MG TABLET Take 1 tablet by mouth twice * CEPHALEXIN 500 MG CAPSULE Take 1 capsule by mouth four * DICYCLOMINE 10 MG CAPSULE Take 1 capsule by mouth befor* MUPIROCIN 2 % TOPICAL CREAM Apply 1 application to affect* ADVAIR DISKUS 500 MCG-50 MCG/* Inhale 1 Puff as instructed o* PHENAZOPYRIDINE 100 MG TABLET Take 1 tablet by mouth three * ATORVASTATIN 40 MG TABLET TAKE 1 TABLET EVERY DAY AMITRIPTYLINE 25 MG TABLET TAKE 3 TABLETS AT BEDTIME PRAMIPEXOLE 1 MG TABLET Take 1 tablet by mouth daily * CITALOPRAM 40 MG TABLET TAKE 1 TABLET EVERY DAY CHOLECALCIFEROL (VITAMIN D3) * Take 1,000 Units by mouth onc* ISOSORBIDE MONONITRATE ER 60 * Take 1 tablet by mouth once d* METOPROLOL TARTRATE 100 MG TA* Take 1 tablet by mouth twice * ASCORBIC ACID (VITAMIN C) 500* Take 500 mg by mouth once elliott* VENTOLIN HFA INHALATION Inhale 1 Puff as instructed a* AMLODIPINE 10 MG TABLET Take 1 tablet by mouth once d* CLOPIDOGREL 75 MG TABLET Take 1 tablet by mouth once d* AMIODARONE 200 MG TABLET Take 1 tablet by mouth once d* MULTIVITAMIN CAPSULE Take 1 capsule by mouth once * VITAMIN E (BULK) MISC LISINOPRIL 40 MG TABLET Take 1 tablet by mouth once d* ACETAMINOPHEN 500 MG TABLET Take 500 mg by mouth every 6 * DIPHENOXYLATE-ATROPINE 2.5 MG* Take 5 mL by mouth four times* RIVAROXABAN 20 MG TABLET Take 20 mg by mouth daily wit* MELATONIN ORAL Take by mouth once daily. LIDOCAINE 5 % TOPICAL PATCH Apply 1 Patch as directed orly* NITROGLYCERIN 0.4 MG SUBLINGU* Dissolve 1 tablet under the t* Problem List As Of Date 04/10/2018 Noted Resolved Vulvovaginitis [N76.0] INVALID FOR*01/13/2014 Atrial fibrillation [I48.91] INVALID FOR* Restless leg syndrome [G25.81] INVALID FOR* Hypertension [I10] Heart disease [I51.9] 01/29/2017 More... Pelvic mass in female [R19.00] INVALID FOR*05/07/2013 PAD (peripheral artery disease) [I73.9] INVALID FOR* History of myocardial infarction [I25.2] INVALID FOR* Ovarian cancer [C56.9] INVALID FOR*05/07/2013 Cellulitis, abdominal wall [L03.311] INVALID FOR*01/29/2017 Personal history of malignant neoplasm of ovary*INVALID FOR* Chronic pain [G89.29] INVALID FOR* Lumbar radiculopathy [M54.16] INVALID FOR* DDD (degenerative disc disease), lumbar [M51.36]INVALID FOR* Myofascial pain [M79.18] INVALID FOR* Pelvic pain INVALID FOR*01/02/2016 Urinary frequency [R35.0] INVALID FOR* Hematuria, microscopic [R31.29] INVALID FOR* Nocturia [R35.1] INVALID FOR* S/P coronary artery stent placement [Z95.5] INVALID FOR* Tobacco abuse [Z72.0] INVALID FOR* Family history of ischemic heart disease [Z82.4*INVALID FOR* Dyslipidemia [E78.5] INVALID FOR* Shortness of breath [R06.02] INVALID FOR* Pain of left lower extremity [M79.605] INVALID FOR* CAD (coronary artery disease) [I25.10] GERD (gastroesophageal reflux disease) [K21.9] Multiple falls [R29.6] INVALID FOR* Disposition: Return if symptoms worsen or fail to improve. Follow-up and Disposition History Recorded Encounter Status:Closed by CORINNE GRACE on 04/10/18 DISCHARGE INSTRUCTION Observed: 04/04/2018 Status: F Source: [place] 1:11 AM [facility] REPOSITORY [facility] Medical Records Department [address] [place] [address] Discharge Instruction 04/04/180 MR#: [id number] Acct: [id number] Name: KATHY PURI Rojas Rep #: [id number] : 1950 68 From: Johnathan Ponce MD PCP: Feng Hayes MD Status: PRE ER ED Disposition - Plan for ED Patient: Chief Complaint: Other, Pain/Inj Instructions: ED Sutr Check No Infec Referrals: Feng Hayes MD [Primary Care Provider] - Clinic,Wound [None] - What to do if you have Problems For any increased pain, shortness of breath, bleeding, nausea or vomiting, chest pain, or any unexpected problems, contact your Primary Care Provider. Call [facility] ([phone]) or report to the closest Emergency Room. Call 911 if necessary. 04/04/18 0111 <Electronically signed by Johnathan Ponce MD> Date Johnathan Ponce MD Cosigner Signature (If Indicated): Date CC: Feng Hayes MD EMERGENCY DEPARTMENT Observed: 04/04/2018 Status: F Source: [place] SUMMARY 1:10 AM [facility] REPOSITORY [facility] Medical Records Department [address] [place] [address] Emergency Department Summary 04/04/18 0108 MR#: [id number] Acct: [id number] Name: KATHY PURI Rep #: [id number] : 1950 68 From: Johnathan Ponce MD PCP: Feng Hayes MD Status: PRE ER - ER Visit Summary Date of Service: 04/04/18 Chief Complaint: Right leg wound History of Present Illness: The patient is a 68 F who presents with right leg wounds. About 1 week ago she tripped while walking up the steps and hit her right ha on the edge of some steps. She complains of sharp pain and some mild redness. She saw her primary care physician and was started on topical mupirocin as well as oral Keflex. She states the redness has not worsened but has not really changed either. No systemic symptoms such as fevers vomiting diarrhea. She is not diabetic. No leg swelling or calf pain. Physical Examination: Afebrile vitals are normal Moist mucous membranes Heart regular rate and rhythm Lungs clear Abdomen soft Patient has poorly healing 3 cm laceration of the right ha and a second 2 cm laceration. There is mild surrounding erythema more consistent with healing process then appearing cellulitic it is not hot to the touch there is no lymphangitic streaking Test Results: Not indicated Emergency Department Course and Treatment: I am not really convinced that the patient has cellulitis. This just appears to be poorly healing wound. There is no drainage. There is no streaking. It is not hot to the touch. She was advised to continue her current antibiotics but I would not change therapy. She was referred to the wound clinic. She understands return for new or worsening symptoms. She was discharged. Treatment Plan: [] Disposition: Discharge Impression: Wound check right leg This note was generated with Noom dictation software. It may contain incorrect words, spelling, and punctuation that were not noted in review of the chart prior to signing ED Disposition - Plan for ED Patient: Chief Complaint: Other, Pain/Inj Referrals: Feng Hayes MD [Primary Care Provider] - What to do if you have Problems For any increased pain, shortness of breath, bleeding, nausea or vomiting, chest pain, or any unexpected problems, contact your Primary Care Provider. Call [facility] ([phone]) or report to the closest Emergency Room. Call 911 if necessary. 04/04/18 0110 <Electronically signed by Johnathan Ponce MD> Date Johnathan Ponce MD Cosigner Signature (If Indicated): Date CC: Feng Hayes MD PROGRESS Observed: 04/01/2018 Status: COMPLETED Source: [place] 11:[address] [facility] [place] REPOSITORY HNO ID: [id number] Author: Corinne Grace Service: (none) Author Type: Nurse Practitioner Type: Progress Notes Filed: 04/01/2018 11:45 AM Note Text: 04/01/2018 Patient presents with: Fall: friday right leg SUBJECTIVE: This is a 68 year old that is here today for concern for wounds on her leg. She states that she fell this past weekend when she was going up the stairs. Her house shoe caught the step and she fell forward. She did not fall down the stairs and she did not hit her head or any other parts of her body. She has 2 scabbed wound on the right ha that are now red around them and her daughter was worried. She states that it bled a lot at the time, but has not bled at all since that day. She denies any drainage. She has been using bactroban ointment on it that she was prescribed for another skin concern last month. She has been washing it with soap and water. There is no drainage. She denies fever or chills. The area is warm to touch. She also has some bruising mostly to the ankle. She is able to bear weight and it is tender to touch, but she has broken her ankle before and she is not concerned that this is broken. No swelling. PAST MEDICAL HISTORY Diagnosis Date - Atrial fibrillation ([facility]) 07/16/2011 - CAD (coronary artery disease) seeing Dr. Treviño - Chronic lower back pain - DDD (degenerative disc disease), lumbar - Depression - GERD (gastroesophageal reflux disease) - H/O heart artery stent 7 Stents, last 2006 - Hypertension - IBS (irritable bowel syndrome) - Myocardial infarction ([facility]) x2 - Obesity - Ovarian cancer ([facility]) 09/13/[address] Blank - PAD (peripheral artery disease) ([facility]) Dr. Sathish Gar - Restless leg syndrome 07/16/2011 - Sleep apnea on Bipap - Tobacco use - Vulvovaginitis 07/16/2011 ALLERGIES Patient has no known allergies. MEDICATIONS Current Outpatient Prescriptions: ranitidine (ZANTAC) 150 mg tablet Take 1 tablet by mouth twice daily. dicyclomine (BENTYL) 10 mg capsule Take 1 capsule by mouth before meals and at bedtime. mupirocin (BACTROBAN) 2 % cream Apply 1 application to affected area twice daily. Location: left ring finger ADVAIR DISKUS 500-50 mcg/dose dsdv Inhale 1 Puff as instructed once daily. phenazopyridine (PYRIDIUM) 100 mg tablet Take 1 tablet by mouth three times daily as needed. atorvastatin (LIPITOR) 40 mg tablet TAKE 1 TABLET EVERY DAY amitriptyline (ELAVIL) 25 mg tablet TAKE 3 TABLETS AT BEDTIME pramipexole (MIRAPEX) 1 mg tablet Take 1 tablet by mouth daily at bedtime. citalopram (CELEXA) 40 mg tablet TAKE 1 TABLET EVERY DAY Cholecalciferol, Vitamin D3, (VITAMIN D) 1,000 unit cap Take 1,000 Units by mouth once daily. isosorbide mononitrate ER (IMDUR) 60 mg 24 hr tablet Take 1 tablet by mouth once daily. metoprolol tartrate, short acting, (LOPRESSOR) 100 mg tablet Take 1 tablet by mouth twice daily. ascorbic acid, vitamin C, (VITAMIN C) 500 mg tablet Take 500 mg by mouth once daily. ALBUTEROL SULFATE (VENTOLIN HFA INHALATION) Inhale 1 Puff as instructed as needed. amLODIPine (NORVASC) 10 mg tablet Take 1 tablet by mouth once daily. clopidogrel (PLAVIX) 75 mg tablet Take 1 tablet by mouth once daily. amiodarone (PACERONE) 200 mg tablet Take 1 tablet by mouth once daily. Multivitamin capsule Take 1 capsule by mouth once daily. VITAMIN E, BULK, MISC lisinopril (ZESTRIL, PRINIVIL) 40 mg tablet Take 1 tablet by mouth once daily. acetaminophen (TYLENOL EXTRA STRENGTH) 500 mg tablet Take 500 mg by mouth every 6 hours as needed. diphenoxylate-atropine sulfate (LOMOTIL) 2.5-0.025 mg/5 mL liquid Take 5 mL by mouth four times daily as needed. rivaroxaban (XARELTO) 20 mg tablet Take 20 mg by mouth daily with dinner. MELATONIN ORAL Take by mouth once daily. lidocaine (LIDODERM) 5 %(700 mg/patch) Apply 1 Patch as directed every 12 hours. nitroglycerin sublingual (NITROSTAT) 0.4 mg SL tablet Dissolve 1 tablet under the tongue as needed. FOR CHEST PAIN. IF NO RELIEF CALL 911 cephALEXin (KEFLEX) 500 mg capsule Take 1 capsule by mouth four times daily for 10 days. No current facility-administered medications for this visit. Medications and allergies reviewed by this provider. SOCIAL HISTORY Social History Marital status: Spouse name: Years of education: Number of children: 3 Occupational History Occupation Employer Comment Retired Social History Main Topics Smoking status: Former Smoker Packs/day: 0.00 Years: 47.00 Types: Cigarettes Quit date: 04/24/2017 Smokeless tobacco: Never Used Comment: <5 per day Alcohol use: No Drug use: No Sexual activity: No Comment: Postmenopausal REVIEW OF SYSTEMS see HPI OBJECTIVE: BP 114/68 Pulse 62 Resp 12 Wt 77.1 kg (170 lb) SpO2 99% BMI 32.51 kg/m? . Vital signs reviewed by this provider. PHYSICAL EXAMINATION: General appearance: Well appearing, alert, in no acute distress, well-hydrated, well nourished. Skin: Skin color, texture, turgor normal. 2 scabbed wounds to the right lower anterior leg. The distal one measures 2x1 with erythema surrounding equaling 3x2, the proximal one is 3.5x2 with erythema equalling 4.5x3. Erythema is warm to touch. No drainage. No swelling. + bruising to the anterior ankle. Lungs: lungs clear to auscultation. No wheezing, rhonchi, rales Heart: RRR without murmur, gallop, or rubs. No ectopy Extremities: No deformities, edema, skin discoloration, clubbing or cyanosis. Good capillary refill. , see skin ASSESSMENT/PLAN: 1. Skin infection - ICD9: 686.9, ICD10: L08.9 (primary diagnosis) - Begin treatment with Cephalaxin (Keflex) - No lymphangetic streaking, this was defined for patient to watch for and to seek medical care immediately if appears - Area of cellulitis defined with pen, seek further attention if this area continues to enlarge - Follow up for recheck in 1 week or sooner if needed 2. Fall (on) (from) other stairs and steps, initial encounter - ICD9: E880.9, ICD10: W10.8XXA Corinne Grace APRN.VANESSA CORDOVAOV Observed: 04/01/2018 Status: COMPLETED Source: [place] 11:20 AM [facility] REPOSITORY [facility] KATHY PURI ([id number]) 1950 F Date Time Provider Department 04/01/18 11:20 AM CORINNE GRACE (VANESSA) ANA During your visit today, we recorded the following information about you: Pulse Respiration Blood pressure Weight 62/minute 12/minute 114/68 77.1 kg Corinne Grace APRN.CNP 04/01/2018 11:45 AM Signed 04/01/2018 Patient presents with: Fall: friday right leg SUBJECTIVE: This is a 68 year old that is here today for concern for wounds on her leg. She states that she fell this past weekend when she was going up the stairs. Her house shoe caught the step and she fell forward. She did not fall down the stairs and she did not hit her head or any other parts of her body. She has 2 scabbed wound on the right ha that are now red around them and her daughter was worried. She states that it bled a lot at the time, but has not bled at all since that day. She denies any drainage. She has been using bactroban ointment on it that she was prescribed for another skin concern last month. She has been washing it with soap and water. There is no drainage. She denies fever or chills. The area is warm to touch. She also has some bruising mostly to the ankle. She is able to bear weight and it is tender to touch, but she has broken her ankle before and she is not concerned that this is broken. No swelling. PAST MEDICAL HISTORY Diagnosis Date - Atrial fibrillation ([facility]) 07/16/2011 - CAD (coronary artery disease) seeing Dr. Treviño - Chronic lower back pain - DDD (degenerative disc disease), lumbar - Depression - GERD (gastroesophageal reflux disease) - H/O heart artery stent 7 Stents, last 2006 - Hypertension - IBS (irritable bowel syndrome) - Myocardial infarction ([facility]) x2 - Obesity - Ovarian cancer ([facility]) 09/13/[address] Blank - PAD (peripheral artery disease) ([facility]) Dr. Sathish Gar - Restless leg syndrome 07/16/2011 - Sleep apnea on Bipap - Tobacco use - Vulvovaginitis 07/16/2011 ALLERGIES Patient has no known allergies. MEDICATIONS Current Outpatient Prescriptions: ranitidine (ZANTAC) 150 mg tablet Take 1 tablet by mouth twice daily. dicyclomine (BENTYL) 10 mg capsule Take 1 capsule by mouth before meals and at bedtime. mupirocin (BACTROBAN) 2 % cream Apply 1 application to affected area twice daily. Location: left ring finger ADVAIR DISKUS 500-50 mcg/dose dsdv Inhale 1 Puff as instructed once daily. phenazopyridine (PYRIDIUM) 100 mg tablet Take 1 tablet by mouth three times daily as needed. atorvastatin (LIPITOR) 40 mg tablet TAKE 1 TABLET EVERY DAY amitriptyline (ELAVIL) 25 mg tablet TAKE 3 TABLETS AT BEDTIME pramipexole (MIRAPEX) 1 mg tablet Take 1 tablet by mouth daily at bedtime. citalopram (CELEXA) 40 mg tablet TAKE 1 TABLET EVERY DAY Cholecalciferol, Vitamin D3, (VITAMIN D) 1,000 unit cap Take 1,000 Units by mouth once daily. isosorbide mononitrate ER (IMDUR) 60 mg 24 hr tablet Take 1 tablet by mouth once daily. metoprolol tartrate, short acting, (LOPRESSOR) 100 mg tablet Take 1 tablet by mouth twice daily. ascorbic acid, vitamin C, (VITAMIN C) 500 mg tablet Take 500 mg by mouth once daily. ALBUTEROL SULFATE (VENTOLIN HFA INHALATION) Inhale 1 Puff as instructed as needed. amLODIPine (NORVASC) 10 mg tablet Take 1 tablet by mouth once daily. clopidogrel (PLAVIX) 75 mg tablet Take 1 tablet by mouth once daily. amiodarone (PACERONE) 200 mg tablet Take 1 tablet by mouth once daily. Multivitamin capsule Take 1 capsule by mouth once daily. VITAMIN E, BULK, MISC lisinopril (ZESTRIL, PRINIVIL) 40 mg tablet Take 1 tablet by mouth once daily. acetaminophen (TYLENOL EXTRA STRENGTH) 500 mg tablet Take 500 mg by mouth every 6 hours as needed. diphenoxylate-atropine sulfate (LOMOTIL) 2.5-0.025 mg/5 mL liquid Take 5 mL by mouth four times daily as needed. rivaroxaban (XARELTO) 20 mg tablet Take 20 mg by mouth daily with dinner. MELATONIN ORAL Take by mouth once daily. lidocaine (LIDODERM) 5 %(700 mg/patch) Apply 1 Patch as directed every 12 hours. nitroglycerin sublingual (NITROSTAT) 0.4 mg SL tablet Dissolve 1 tablet under the tongue as needed. FOR CHEST PAIN. IF NO RELIEF CALL 911 cephALEXin (KEFLEX) 500 mg capsule Take 1 capsule by mouth four times daily for 10 days. No current facility-administered medications for this visit. Medications and allergies reviewed by this provider. SOCIAL HISTORY Social History Marital status: Spouse name: Years of education: Number of children: 3 Occupational History Occupation Employer Comment Retired Social History Main Topics Smoking status: Former Smoker Packs/day: 0.00 Years: 47.00 Types: Cigarettes Quit date: 04/24/2017 Smokeless tobacco: Never Used Comment: <5 per day Alcohol use: No Drug use: No Sexual activity: No Comment: Postmenopausal REVIEW OF SYSTEMS see HPI OBJECTIVE: BP 114/68 Pulse 62 Resp 12 Wt 77.1 kg (170 lb) SpO2 99% BMI 32.51 kg/m? . Vital signs reviewed by this provider. PHYSICAL EXAMINATION: General appearance: Well appearing, alert, in no acute distress, well-hydrated, well nourished. Skin: Skin color, texture, turgor normal. 2 scabbed wounds to the right lower anterior leg. The distal one measures 2x1 with erythema surrounding equaling 3x2, the proximal one is 3.5x2 with erythema equalling 4.5x3. Erythema is warm to touch. No drainage. No swelling. + bruising to the anterior ankle. Lungs: lungs clear to auscultation. No wheezing, rhonchi, rales Heart: RRR without murmur, gallop, or rubs. No ectopy Extremities: No deformities, edema, skin discoloration, clubbing or cyanosis. Good capillary refill. , see skin ASSESSMENT/PLAN: 1. Skin infection - ICD9: 686.9, ICD10: L08.9 (primary diagnosis) - Begin treatment with Cephalaxin (Keflex) - No lymphangetic streaking, this was defined for patient to watch for and to seek medical care immediately if appears - Area of cellulitis defined with pen, seek further attention if this area continues to enlarge - Follow up for recheck in 1 week or sooner if needed 2. Fall (on) (from) other stairs and steps, initial encounter - ICD9: E880.9, ICD10: W10.8XXA Corinnegeovanna Grace APRN.VOCATIONAL NURSING INSTRUCTOR Referring Provider: SELF [200] Allergies As of Date: 04/01/2018 (No Known Allergies) Date Reviewed: 04/01/2018 Reviewed by: Velia (Emmy) EMMY Roy - Fully Assessed Reason for Visit: Fall [218] Cmt: friday right leg Primary Visit Diagnosis:Skin infection [L08.9] Other Visit Diagnosis:Fall (on) (from) other stairs and steps, initial encounter [W10.8XXA] Order(s):cephALEXin (KEFLEX) 500 mg capsuleTake 1 capsule by mouth four times daily for 10 days.Disp: 40 capsuleRfl: 0 Prescriptions as of 04/01/2018 Sig: RANITIDINE 150 MG TABLET Take 1 tablet by mouth twice * DICYCLOMINE 10 MG CAPSULE Take 1 capsule by mouth befor* MUPIROCIN 2 % TOPICAL CREAM Apply 1 application to affect* ADVAIR DISKUS 500 MCG-50 MCG/* Inhale 1 Puff as instructed o* PHENAZOPYRIDINE 100 MG TABLET Take 1 tablet by mouth three * ATORVASTATIN 40 MG TABLET TAKE 1 TABLET EVERY DAY AMITRIPTYLINE 25 MG TABLET TAKE 3 TABLETS AT BEDTIME PRAMIPEXOLE 1 MG TABLET Take 1 tablet by mouth daily * CITALOPRAM 40 MG TABLET TAKE 1 TABLET EVERY DAY X RANITIDINE 150 MG TABLET Take 1 tablet by mouth twice * CHOLECALCIFEROL (VITAMIN D3) * Take 1,000 Units by mouth onc* ISOSORBIDE MONONITRATE ER 60 * Take 1 tablet by mouth once d* METOPROLOL TARTRATE 100 MG TA* Take 1 tablet by mouth twice * ASCORBIC ACID (VITAMIN C) 500* Take 500 mg by mouth once elliott* VENTOLIN HFA INHALATION Inhale 1 Puff as instructed a* AMLODIPINE 10 MG TABLET Take 1 tablet by mouth once d* CLOPIDOGREL 75 MG TABLET Take 1 tablet by mouth once d* AMIODARONE 200 MG TABLET Take 1 tablet by mouth once d* MULTIVITAMIN CAPSULE Take 1 capsule by mouth once * VITAMIN E (BULK) MISC LISINOPRIL 40 MG TABLET Take 1 tablet by mouth once d* ACETAMINOPHEN 500 MG TABLET Take 500 mg by mouth every 6 * DIPHENOXYLATE-ATROPINE 2.5 MG* Take 5 mL by mouth four times* RIVAROXABAN 20 MG TABLET Take 20 mg by mouth daily wit* MELATONIN ORAL Take by mouth once daily. LIDOCAINE 5 % TOPICAL PATCH Apply 1 Patch as directed roly* NITROGLYCERIN 0.4 MG SUBLINGU* Dissolve 1 tablet under the t* CEPHALEXIN 500 MG CAPSULE Take 1 capsule by mouth four * Problem List As Of Date 04/01/2018 Noted Resolved Vulvovaginitis [N76.0] INVALID FOR*01/13/2014 Atrial fibrillation [I48.91] INVALID FOR* Restless leg syndrome [G25.81] INVALID FOR* Hypertension [I10] Heart disease [I51.9] 01/29/2017 More... Pelvic mass in female [R19.00] INVALID FOR*05/07/2013 PAD (peripheral artery disease) [I73.9] INVALID FOR* History of myocardial infarction [I25.2] INVALID FOR* Ovarian cancer [C56.9] INVALID FOR*05/07/2013 Cellulitis, abdominal wall [L03.311] INVALID FOR*01/29/2017 Personal history of malignant neoplasm of ovary*INVALID FOR* Chronic pain [G89.29] INVALID FOR* Lumbar radiculopathy [M54.16] INVALID FOR* DDD (degenerative disc disease), lumbar [M51.36]INVALID FOR* Myofascial pain [M79.18] INVALID FOR* Pelvic pain INVALID FOR*01/02/2016 Urinary frequency [R35.0] INVALID FOR* Hematuria, microscopic [R31.29] INVALID FOR* Nocturia [R35.1] INVALID FOR* S/P coronary artery stent placement [Z95.5] INVALID FOR* Tobacco abuse [Z72.0] INVALID FOR* Family history of ischemic heart disease [Z82.4*INVALID FOR* Dyslipidemia [E78.5] INVALID FOR* Shortness of breath [R06.02] INVALID FOR* Pain of left lower extremity [M79.605] INVALID FOR* CAD (coronary artery disease) [I25.10] GERD (gastroesophageal reflux disease) [K21.9] Multiple falls [R29.6] INVALID FOR* Prescriptions ordered this encounter Disp Refills Start End CEPHALEXIN 500 MG CAPSULE 40 c* 0 04/01/2018 04/11/2018 Route: ORAL Sig: Take 1 capsule by mouth four times daily for 10 days. Disposition: Return in about 1 week (around 04/08/2018) for skin infection. Follow-up and Disposition History Recorded Encounter Status:Closed by CORINNE GRACE on 04/01/18 OBSOLETE Observed: 04/01/2018 Status: COMPLETED Source: [place] 12:00 AM [facility] REPOSITORY Refill ([facility]) KATHY PURI ([id number]) 1950 F Date Time Provider Department 04/01/18 CATHI HAYES) [facility] During your visit today, we recorded the following information about you: Marcela Oneill Ma 04/01/2018 9:30 AM Signed Patient has been identified by name and date of : Yes Pending Prescriptions Disp Refills RANITIDINE 150 MG TABLET 180 tablet 1 Sig: Take 1 tablet by mouth twice daily. MOUNA: No RX INSTRUCTIONS: Patient aware RX will be sent to pharmacy. No need to notify patient. Marcela Oneill Ma Last ov: 02/2018 Last refill: 10/2017 180 tablets 1 refill Nov: 03/2018 Allergies As of Date: 04/01/2018 (No Known Allergies) Date Reviewed: 03/05/2018 Reviewed by: Adriano Toscano Ma - Fully Assessed Reason for Visit: Refill Request [94] Order(s):ranitidine (ZANTAC) 150 mg tabletTake 1 tablet by mouth twice daily.Disp: 180 tabletRfl: 1 Prescriptions as of 04/01/2018 Sig: RANITIDINE 150 MG TABLET Take 1 tablet by mouth twice * DICYCLOMINE 10 MG CAPSULE Take 1 capsule by mouth befor* MUPIROCIN 2 % TOPICAL CREAM Apply 1 application to affect* ADVAIR DISKUS 500 MCG-50 MCG/* Inhale 1 Puff as instructed o* PHENAZOPYRIDINE 100 MG TABLET Take 1 tablet by mouth three * ATORVASTATIN 40 MG TABLET TAKE 1 TABLET EVERY DAY AMITRIPTYLINE 25 MG TABLET TAKE 3 TABLETS AT BEDTIME PRAMIPEXOLE 1 MG TABLET Take 1 tablet by mouth daily * CITALOPRAM 40 MG TABLET TAKE 1 TABLET EVERY DAY CHOLECALCIFEROL (VITAMIN D3) * Take 1,000 Units by mouth onc* ISOSORBIDE MONONITRATE ER 60 * Take 1 tablet by mouth once d* METOPROLOL TARTRATE 100 MG TA* Take 1 tablet by mouth twice * ASCORBIC ACID (VITAMIN C) 500* Take 500 mg by mouth once elliott* VENTOLIN HFA INHALATION Inhale 1 Puff as instructed a* AMLODIPINE 10 MG TABLET Take 1 tablet by mouth once d* CLOPIDOGREL 75 MG TABLET Take 1 tablet by mouth once d* AMIODARONE 200 MG TABLET Take 1 tablet by mouth once d* MULTIVITAMIN CAPSULE Take 1 capsule by mouth once * VITAMIN E (BULK) MISC LISINOPRIL 40 MG TABLET Take 1 tablet by mouth once d* ACETAMINOPHEN 500 MG TABLET Take 500 mg by mouth every 6 * DIPHENOXYLATE-ATROPINE 2.5 MG* Take 5 mL by mouth four times* RIVAROXABAN 20 MG TABLET Take 20 mg by mouth daily wit* MELATONIN ORAL Take by mouth once daily. LIDOCAINE 5 % TOPICAL PATCH Apply 1 Patch as directed orly* NITROGLYCERIN 0.4 MG SUBLINGU* Dissolve 1 tablet under the t* Problem List As Of Date 04/01/2018 Noted Resolved Vulvovaginitis [N76.0] INVALID FOR*01/13/2014 Atrial fibrillation [I48.91] INVALID FOR* Restless leg syndrome [G25.81] INVALID FOR* Hypertension [I10] Heart disease [I51.9] 01/29/2017 More... Pelvic mass in female [R19.00] INVALID FOR*05/07/2013 PAD (peripheral artery disease) [I73.9] INVALID FOR* History of myocardial infarction [I25.2] INVALID FOR* Ovarian cancer [C56.9] INVALID FOR*05/07/2013 Cellulitis, abdominal wall [L03.311] INVALID FOR*01/29/2017 Personal history of malignant neoplasm of ovary*INVALID FOR* Chronic pain [G89.29] INVALID FOR* Lumbar radiculopathy [M54.16] INVALID FOR* DDD (degenerative disc disease), lumbar [M51.36]INVALID FOR* Myofascial pain [M79.18] INVALID FOR* Pelvic pain INVALID FOR*01/02/2016 Urinary frequency [R35.0] INVALID FOR* Hematuria, microscopic [R31.29] INVALID FOR* Nocturia [R35.1] INVALID FOR* S/P coronary artery stent placement [Z95.5] INVALID FOR* Tobacco abuse [Z72.0] INVALID FOR* Family history of ischemic heart disease [Z82.4*INVALID FOR* Dyslipidemia [E78.5] INVALID FOR* Shortness of breath [R06.02] INVALID FOR* Pain of left lower extremity [M79.605] INVALID FOR* CAD (coronary artery disease) [I25.10] GERD (gastroesophageal reflux disease) [K21.9] Multiple falls [R29.6] INVALID FOR* Prescriptions ordered this encounter Disp Refills Start End RANITIDINE 150 MG TABLET 180 * 1 04/01/2018 Route: ORAL Sig: Take 1 tablet by mouth twice daily. Medications Discontinued During This Encounter ranitidine (ZANTAC) 150 mg tablet 180 * 1 11/07/2017 04/01/2018 Route: ORAL Sig: Take 1 tablet by mouth twice daily. Disc: Reason for discontinue is not on file. Encounter Status:Closed by CATHI HAYES MD on 04/01/18 OBSOLETE Observed: 03/27/2018 Status: COMPLETED Source: [place] 12:00 AM [facility] REPOSITORY Refill ([facility]) KATHY PURI ([id number]) 1950 F Date Time Provider Department 03/27/18 CATHI HAYES) [facility] During your visit today, we recorded the following information about you: Laura Butcherr 03/27/2018 3:37 PM Signed Patient has been identified by name and date of : Yes Pending Prescriptions Disp Refills DICYCLOMINE 10 MG CAPSULE 120 capsule 1 Sig: Take 1 capsule by mouth before meals and at bedtime. MOUNA: No RX INSTRUCTIONS: Patient aware RX will be sent to pharmacy. No need to notify patient. Laura Davila Psr Allergies As of Date: 03/27/2018 (No Known Allergies) Date Reviewed: 03/05/2018 Reviewed by: Adriano Toscano Ma - Fully Assessed Reason for Visit: Refill Request [94] Reason For Visit History Recorded Order(s):dicyclomine (BENTYL) 10 mg capsuleTake 1 capsule by mouth before meals and at bedtime.Disp: 120 capsuleRfl: 2 Prescriptions as of 03/27/2018 Sig: DICYCLOMINE 10 MG CAPSULE Take 1 capsule by mouth befor* MUPIROCIN 2 % TOPICAL CREAM Apply 1 application to affect* ADVAIR DISKUS 500 MCG-50 MCG/* Inhale 1 Puff as instructed o* PHENAZOPYRIDINE 100 MG TABLET Take 1 tablet by mouth three * ATORVASTATIN 40 MG TABLET TAKE 1 TABLET EVERY DAY AMITRIPTYLINE 25 MG TABLET TAKE 3 TABLETS AT BEDTIME PRAMIPEXOLE 1 MG TABLET Take 1 tablet by mouth daily * CITALOPRAM 40 MG TABLET TAKE 1 TABLET EVERY DAY RANITIDINE 150 MG TABLET Take 1 tablet by mouth twice * CHOLECALCIFEROL (VITAMIN D3) * Take 1,000 Units by mouth onc* ISOSORBIDE MONONITRATE ER 60 * Take 1 tablet by mouth once d* METOPROLOL TARTRATE 100 MG TA* Take 1 tablet by mouth twice * ASCORBIC ACID (VITAMIN C) 500* Take 500 mg by mouth once elliott* VENTOLIN HFA INHALATION Inhale 1 Puff as instructed a* AMLODIPINE 10 MG TABLET Take 1 tablet by mouth once d* CLOPIDOGREL 75 MG TABLET Take 1 tablet by mouth once d* AMIODARONE 200 MG TABLET Take 1 tablet by mouth once d* MULTIVITAMIN CAPSULE Take 1 capsule by mouth once * VITAMIN E (BULK) MISC LISINOPRIL 40 MG TABLET Take 1 tablet by mouth once d* ACETAMINOPHEN 500 MG TABLET Take 500 mg by mouth every 6 * DIPHENOXYLATE-ATROPINE 2.5 MG* Take 5 mL by mouth four times* RIVAROXABAN 20 MG TABLET Take 20 mg by mouth daily wit* MELATONIN ORAL Take by mouth once daily. LIDOCAINE 5 % TOPICAL PATCH Apply 1 Patch as directed orly* NITROGLYCERIN 0.4 MG SUBLINGU* Dissolve 1 tablet under the t* Problem List As Of Date 03/27/2018 Noted Resolved Vulvovaginitis [N76.0] INVALID FOR*01/13/2014 Atrial fibrillation [I48.91] INVALID FOR* Restless leg syndrome [G25.81] INVALID FOR* Hypertension [I10] Heart disease [I51.9] 01/29/2017 More... Pelvic mass in female [R19.00] INVALID FOR*05/07/2013 PAD (peripheral artery disease) [I73.9] INVALID FOR* History of myocardial infarction [I25.2] INVALID FOR* Ovarian cancer [C56.9] INVALID FOR*05/07/2013 Cellulitis, abdominal wall [L03.311] INVALID FOR*01/29/2017 Personal history of malignant neoplasm of ovary*INVALID FOR* Chronic pain [G89.29] INVALID FOR* Lumbar radiculopathy [M54.16] INVALID FOR* DDD (degenerative disc disease), lumbar [M51.36]INVALID FOR* Myofascial pain [M79.18] INVALID FOR* Pelvic pain INVALID FOR*01/02/2016 Urinary frequency [R35.0] INVALID FOR* Hematuria, microscopic [R31.29] INVALID FOR* Nocturia [R35.1] INVALID FOR* S/P coronary artery stent placement [Z95.5] INVALID FOR* Tobacco abuse [Z72.0] INVALID FOR* Family history of ischemic heart disease [Z82.4*INVALID FOR* Dyslipidemia [E78.5] INVALID FOR* Shortness of breath [R06.02] INVALID FOR* Pain of left lower extremity [M79.605] INVALID FOR* CAD (coronary artery disease) [I25.10] GERD (gastroesophageal reflux disease) [K21.9] Multiple falls [R29.6] INVALID FOR* Prescriptions ordered this encounter Disp Refills Start End DICYCLOMINE 10 MG CAPSULE 120 * 2 03/27/2018 Route: ORAL Sig: Take 1 capsule by mouth before meals and at bedtime. Medications Discontinued During This Encounter dicyclomine (BENTYL) 10 mg capsule 120 * 1 01/02/2018 03/27/2018 Cmt: Med-syn patient. If too soon, we will put new RX on hold for next cycle. Sig: take 1 capsule before meals and at bedtime Disc: Reason for discontinue is not on file. Encounter Status:Closed by CATHI HAYES MD on 03/27/18 PROGRESS Observed: 03/05/2018 Status: COMPLETED Source: [place] 12:01 PM [facility] REPOSITORY HNO ID: [id number] Author: Cathi Garrison) Abigail Service: (none) Author Type: Physician Type: Progress Notes Filed: 03/05/2018 1:37 PM Note Text: Chief Complaint Patient presents with: infected finger: left ring finger - cut on scissors while crocheting - 7 days ago HPI Kathy Puri is a 68 year old female who presents here today for Above Complaints.. Patient was crocheting about a week ago and cut her left ring finger with scissors on accident. Healing slowly and has been applying OTC antibacterial ointment. Noticed some redness around the wound without purulent drainage, streaking, fever/chills, warmth to touch, TTP. In today for evaluatoin. Past medical history, appointments, medications, allergies reviewed. Previous Medical History PAST MEDICAL HISTORY Diagnosis Date - Atrial fibrillation (HCC) 07/16/2011 - CAD (coronary artery disease) seeing Dr. Treviño - Chronic lower back pain - DDD (degenerative disc disease), lumbar - Depression - GERD (gastroesophageal reflux disease) - H/O heart artery stent 7 Stents, last 2006 - Hypertension - IBS (irritable bowel syndrome) - Myocardial infarction ([facility]) x2 - Obesity - Ovarian cancer ([facility]) 09/13/[address] Blank - PAD (peripheral artery disease) ([facility]) Dr. Sathish Gar - Restless leg syndrome 07/16/2011 - Sleep apnea on Bipap - Tobacco use - Vulvovaginitis 07/16/2011 Previous Surgical History PAST SURGICAL HISTORY Procedure Laterality Date - CATARACT EXTRACTION HX Bilateral 03/2017 - COLONOSCOP W/ OR W/O BRSH SPEC 06/16/13 Colonoscopy - EGD W/O OR W/BRUSH/WASH 06/16/13 EGD - REMOVE TONSILS/ADENOIDS,<12 Y/O - REVSC OPN/PRG FEM/POP W/ANGIOPLASTY UNI Right 01/05/15 - REVSC OPN/PRG FEM/POP W/ANGIOPLASTY UNI Left 02-15-15 - REVSC OPN/PRG FEM/POP W/ANGIOPLASTY UNI Left 09/23/2016 - REVSC OPN/PRQ FEM/POP W/STNT/ANGIOP [facility] 11-26-13 - REVSC OPN/PRQ FEM/POP W/STNT/ANGIOP [facility] 01/07/14 - STENTS (SPECIFY) 1999 AND 2006 7 Stents - TOTAL ABD HYSTEREC+LTD NODES 2012 DIOMEDES BSO ovarian cancer Family History FAMILY HISTORY Problem Relation Age of Onset - Heart Father [place] - Stroke Maternal Grandfather - Hypertension Sister - Psychiatry Sister Patient Allergies ALLERGIES No Known Allergies Current Medications Current Outpatient Prescriptions on File Prior to Visit: acetaminophen (TYLENOL EXTRA STRENGTH) 500 mg tablet Take 500 mg by mouth every 6 hours as needed. ADVAIR DISKUS 500-50 mcg/dose dsdv Inhale 1 Puff as instructed once daily. ALBUTEROL SULFATE (VENTOLIN HFA INHALATION) Inhale 1 Puff as instructed as needed. amiodarone (PACERONE) 200 mg tablet Take 1 tablet by mouth once daily. amitriptyline (ELAVIL) 25 mg tablet TAKE 3 TABLETS AT BEDTIME amLODIPine (NORVASC) 10 mg tablet Take 1 tablet by mouth once daily. ascorbic acid, vitamin C, (VITAMIN C) 500 mg tablet Take 500 mg by mouth once daily. atorvastatin (LIPITOR) 40 mg tablet TAKE 1 TABLET EVERY DAY Cholecalciferol, Vitamin D3, (VITAMIN D) 1,000 unit cap Take 1,000 Units by mouth once daily. citalopram (CELEXA) 40 mg tablet TAKE 1 TABLET EVERY DAY clopidogrel (PLAVIX) 75 mg tablet Take 1 tablet by mouth once daily. dicyclomine (BENTYL) 10 mg capsule take 1 capsule before meals and at bedtime diphenoxylate-atropine sulfate (LOMOTIL) 2.5-0.025 mg/5 mL liquid Take 5 mL by mouth four times daily as needed. isosorbide mononitrate ER (IMDUR) 60 mg 24 hr tablet Take 1 tablet by mouth once daily. lidocaine (LIDODERM) 5 %(700 mg/patch) Apply 1 Patch as directed every 12 hours. lisinopril (ZESTRIL, PRINIVIL) 40 mg tablet Take 1 tablet by mouth once daily. MELATONIN ORAL Take by mouth once daily. metoprolol tartrate, short acting, (LOPRESSOR) 100 mg tablet Take 1 tablet by mouth twice daily. Multivitamin capsule Take 1 capsule by mouth once daily. nitroglycerin sublingual (NITROSTAT) 0.4 mg SL tablet Dissolve 1 tablet under the tongue as needed. FOR CHEST PAIN. IF NO RELIEF CALL 911 phenazopyridine (PYRIDIUM) 100 mg tablet Take 1 tablet by mouth three times daily as needed. pramipexole (MIRAPEX) 1 mg tablet Take 1 tablet by mouth daily at bedtime. ranitidine (ZANTAC) 150 mg tablet Take 1 tablet by mouth twice daily. rivaroxaban (XARELTO) 20 mg tablet Take 20 mg by mouth daily with dinner. VITAMIN E, BULK, MISC No current facility-administered medications on file prior to visit. Social History Social History Marital status: Spouse name: Years of education: Number of children: 3 Occupational History Occupation Employer Comment Retired Social History Main Topics Smoking status: Former Smoker Packs/day: 0.00 Years: 47.00 Types: Cigarettes Quit date: 04/24/2017 Smokeless tobacco: Never Used Comment: <5 per day Alcohol use: No Drug use: No Sexual activity: No Comment: Postmenopausal Review of Symptoms REVIEW OF SYSTEMS See HPI EXAM: BP 148/78 Pulse (!) 54 Temp 36.1 ?C (96.9 ?F) (Tympanic) Resp 12 Wt 78.5 kg (173 lb) BMI 33.09 kg/m? General Appearance: Well appearing, alert, in no acute distress, well-hydrated, well nourished.. Skin: healing laceration over PIP of left 4th digit without cellulitis, streaking, or drainage. Health Maintenance List MAMMOGRAM due on 03/13/2018 STATIN MED ADHERENCE due on 03/17/2018 COLORECTAL CANCER SCREENING,SEE MODIFIER due on 06/16/2018 BP CONTROLLED (<130/80) due on 12/08/2018 LDL CHOLESTEROL due on 12/23/2018 ANNUAL PCP TEAM CHRONIC DISEASE VISIT due on 02/07/2019 DIABETES SCREEN due on 09/05/2020 LIPID SCREEN due on 12/23/2022 DTAP,TDAP,TD(2 - Td) due on 12/09/2027 BONE DENSITY Completed ADULT PREVNAR-13 Completed INFLUENZA Completed HEPATITIS C SCREENING Completed PNEUMOVAX AGE 65 AND OVER WITH 5YR LOOKBACK Completed ASSESSMENT/PLAN: 1. Laceration of finger of left hand without foreign body without damage to nail, unspecified finger, initial encounter - ICD9: 883.0, ICD10: S61.219A (primary diagnosis) Healing slowly. Start bactroban BID and update tetanus booster. To call with red flag symptoms as discussed. - TETANUS/DIPTHERIA BOOSTER (OVER 7), PF IM - MUPIROCIN 2 % TOPICAL CREAM 2. Need for vaccination - ICD9: V05.9, ICD10: Z23 - TETANUS/DIPTHERIA BOOSTER (OVER 7), PF IM - MUPIROCIN 2 % TOPICAL CREAM Cathi Hayes MD CNOV Observed: 03/05/2018 Status: COMPLETED Source: [place] 11:40 AM [facility] REPOSITORY [facility] KATHY PURI ([id number]) 1950 F Date Time Provider Department 03/05/18 11:40 AM [facility] HAYES[facility] During your visit today, we recorded the following information about you: Temperature Pulse Respiration Blood pressure 96.9 degrees 54/minute 12/minute 148/78 Weight 78.5 kg Cathi Hayes MD 03/05/2018 1:37 PM Signed Chief Complaint Patient presents with: infected finger: left ring finger - cut on scissors while crocheting - 7 days ago HPI Kathyrojas Puri is a 68 year old female who presents here today for Above Complaints.. Patient was crocheting about a week ago and cut her left ring finger with scissors on accident. Healing slowly and has been applying OTC antibacterial ointment. Noticed some redness around the wound without purulent drainage, streaking, fever/chills, warmth to touch, TTP. In today for evaluatoin. Past medical history, appointments, medications, allergies reviewed. Previous Medical History PAST MEDICAL HISTORY Diagnosis Date - Atrial fibrillation (HCC) 07/16/2011 - CAD (coronary artery disease) seeing Dr. Treviño - Chronic lower back pain - DDD (degenerative disc disease), lumbar - Depression - GERD (gastroesophageal reflux disease) - H/O heart artery stent 7 Stents, last 2006 - Hypertension - IBS (irritable bowel syndrome) - Myocardial infarction (HCC) x2 - Obesity - Ovarian cancer (HCC) 09/13/[address] Blank - PAD (peripheral artery disease) ([facility]) Dr. Sathish Gar - Restless leg syndrome 07/16/2011 - Sleep apnea on Bipap - Tobacco use - Vulvovaginitis 07/16/2011 Previous Surgical History PAST SURGICAL HISTORY Procedure Laterality Date - CATARACT EXTRACTION HX Bilateral 03/2017 - COLONOSCOP W/ OR W/O BRSH SPEC 06/16/13 Colonoscopy - EGD W/O OR W/BRUSH/WASH 06/16/13 EGD - REMOVE TONSILS/ADENOIDS,<12 Y/O - REVSC OPN/PRG FEM/POP W/ANGIOPLASTY [facility] Right 01/05/15 - REVSC OPN/PRG FEM/POP W/ANGIOPLASTY [facility] Left 02-15-15 - REVSC OPN/PRG FEM/POP W/ANGIOPLASTY [facility] Left 09/23/2016 - REVSC OPN/PRQ FEM/POP W/STNT/ANGIOP [facility] 11-26-13 - REVSC OPN/PRQ FEM/POP W/STNT/ANGIOP [facility] 01/07/14 - STENTS (SPECIFY) 1999 AND 2006 7 Stents - TOTAL ABD HYSTEREC+LTD NODES 2012 DIOMEDES BSO ovarian cancer Family History FAMILY HISTORY Problem Relation Age of Onset - Heart Father [place] - Stroke Maternal Grandfather - Hypertension Sister - Psychiatry Sister Patient Allergies ALLERGIES No Known Allergies Current Medications Current Outpatient Prescriptions on File Prior to Visit: acetaminophen (TYLENOL EXTRA STRENGTH) 500 mg tablet Take 500 mg by mouth every 6 hours as needed. ADVAIR DISKUS 500-50 mcg/dose dsdv Inhale 1 Puff as instructed once daily. ALBUTEROL SULFATE (VENTOLIN HFA INHALATION) Inhale 1 Puff as instructed as needed. amiodarone (PACERONE) 200 mg tablet Take 1 tablet by mouth once daily. amitriptyline (ELAVIL) 25 mg tablet TAKE 3 TABLETS AT BEDTIME amLODIPine (NORVASC) 10 mg tablet Take 1 tablet by mouth once daily. ascorbic acid, vitamin C, (VITAMIN C) 500 mg tablet Take 500 mg by mouth once daily. atorvastatin (LIPITOR) 40 mg tablet TAKE 1 TABLET EVERY DAY Cholecalciferol, Vitamin D3, (VITAMIN D) 1,000 unit cap Take 1,000 Units by mouth once daily. citalopram (CELEXA) 40 mg tablet TAKE 1 TABLET EVERY DAY clopidogrel (PLAVIX) 75 mg tablet Take 1 tablet by mouth once daily. dicyclomine (BENTYL) 10 mg capsule take 1 capsule before meals and at bedtime diphenoxylate-atropine sulfate (LOMOTIL) 2.5-0.025 mg/5 mL liquid Take 5 mL by mouth four times daily as needed. isosorbide mononitrate ER (IMDUR) 60 mg 24 hr tablet Take 1 tablet by mouth once daily. lidocaine (LIDODERM) 5 %(700 mg/patch) Apply 1 Patch as directed every 12 hours. lisinopril (ZESTRIL, PRINIVIL) 40 mg tablet Take 1 tablet by mouth once daily. MELATONIN ORAL Take by mouth once daily. metoprolol tartrate, short acting, (LOPRESSOR) 100 mg tablet Take 1 tablet by mouth twice daily. Multivitamin capsule Take 1 capsule by mouth once daily. nitroglycerin sublingual (NITROSTAT) 0.4 mg SL tablet Dissolve 1 tablet under the tongue as needed. FOR CHEST PAIN. IF NO RELIEF CALL 911 phenazopyridine (PYRIDIUM) 100 mg tablet Take 1 tablet by mouth three times daily as needed. pramipexole (MIRAPEX) 1 mg tablet Take 1 tablet by mouth daily at bedtime. ranitidine (ZANTAC) 150 mg tablet Take 1 tablet by mouth twice daily. rivaroxaban (XARELTO) 20 mg tablet Take 20 mg by mouth daily with dinner. VITAMIN E, BULK, MISC No current facility-administered medications on file prior to visit. Social History Social History Marital status: Spouse name: Years of education: Number of children: 3 Occupational History Occupation Employer Comment Retired Social History Main Topics Smoking status: Former Smoker Packs/day: 0.00 Years: 47.00 Types: Cigarettes Quit date: 04/24/2017 Smokeless tobacco: Never Used Comment: <5 per day Alcohol use: No Drug use: No Sexual activity: No Comment: Postmenopausal Review of Symptoms REVIEW OF SYSTEMS See HPI EXAM: BP 148/78 Pulse (!) 54 Temp 36.1 ?C (96.9 ?F) (Tympanic) Resp 12 Wt 78.5 kg (173 lb) BMI 33.09 kg/m? General Appearance: Well appearing, alert, in no acute distress, well-hydrated, well nourished.. Skin: healing laceration over PIP of left 4th digit without cellulitis, streaking, or drainage. Health Maintenance List MAMMOGRAM due on 03/13/2018 STATIN MED ADHERENCE due on 03/17/2018 COLORECTAL CANCER SCREENING,SEE MODIFIER due on 06/16/2018 BP CONTROLLED (<130/80) due on 12/08/2018 LDL CHOLESTEROL due on 12/23/2018 ANNUAL PCP TEAM CHRONIC DISEASE VISIT due on 02/07/2019 DIABETES SCREEN due on 09/05/2020 LIPID SCREEN due on 12/23/2022 DTAP,TDAP,TD(2 - Td) due on 12/09/2027 BONE DENSITY Completed ADULT PREVNAR-13 Completed INFLUENZA Completed HEPATITIS C SCREENING Completed PNEUMOVAX AGE 65 AND OVER WITH 5YR LOOKBACK Completed ASSESSMENT/PLAN: 1. Laceration of finger of left hand without foreign body without damage to nail, unspecified finger, initial encounter - ICD9: 883.0, ICD10: S61.219A (primary diagnosis) Healing slowly. Start bactroban BID and update tetanus booster. To call with red flag symptoms as discussed. - TETANUS/DIPTHERIA BOOSTER (OVER 7), PF IM - MUPIROCIN 2 % TOPICAL CREAM 2. Need for vaccination - ICD9: V05.9, ICD10: Z23 - TETANUS/DIPTHERIA BOOSTER (OVER 7), PF IM - MUPIROCIN 2 % TOPICAL CREAM Cathi Hayes MD Referring Provider: SELF [200] Allergies As of Date: 03/05/2018 (No Known Allergies) Date Reviewed: 03/05/2018 Reviewed by: Adriano Toscano Ma - Fully Assessed Reason for Visit: infected finger [Other] Cmt: left ring finger - cut on scissors while crocheting - 7 days ago Primary Visit Diagnosis:Laceration of finger of left hand without foreign body without damage to nail, unspecified finger, initial encounter [S61.219A] Other Visit Diagnosis:Need for vaccination [Z23] Order(s):TETANUS/DIPTHERIA BOOSTER (OVER 7), PF IM [[id number]] Order #: [id number] mupirocin (BACTROBAN) 2 % creamApply 1 application to affected area twice daily. Location: left ring fingerDisp: 1 TubeRfl: 1 Prescriptions as of 03/05/2018 Sig: ACETAMINOPHEN 500 MG TABLET Take 500 mg by mouth every 6 * ADVAIR DISKUS 500 MCG-50 MCG/* Inhale 1 Puff as instructed o* VENTOLIN HFA INHALATION Inhale 1 Puff as instructed a* AMIODARONE 200 MG TABLET Take 1 tablet by mouth once d* AMITRIPTYLINE 25 MG TABLET TAKE 3 TABLETS AT BEDTIME AMLODIPINE 10 MG TABLET Take 1 tablet by mouth once d* ASCORBIC ACID (VITAMIN C) 500* Take 500 mg by mouth once elliott* ATORVASTATIN 40 MG TABLET TAKE 1 TABLET EVERY DAY CHOLECALCIFEROL (VITAMIN D3) * Take 1,000 Units by mouth onc* CITALOPRAM 40 MG TABLET TAKE 1 TABLET EVERY DAY CLOPIDOGREL 75 MG TABLET Take 1 tablet by mouth once d* DICYCLOMINE 10 MG CAPSULE take 1 capsule before meals a* DIPHENOXYLATE-ATROPINE 2.5 MG* Take 5 mL by mouth four times* ISOSORBIDE MONONITRATE ER 60 * Take 1 tablet by mouth once d* LIDOCAINE 5 % TOPICAL PATCH Apply 1 Patch as directed orly* LISINOPRIL 40 MG TABLET Take 1 tablet by mouth once d* MELATONIN ORAL Take by mouth once daily. METOPROLOL TARTRATE 100 MG TA* Take 1 tablet by mouth twice * MULTIVITAMIN CAPSULE Take 1 capsule by mouth once * NITROGLYCERIN 0.4 MG SUBLINGU* Dissolve 1 tablet under the t* PHENAZOPYRIDINE 100 MG TABLET Take 1 tablet by mouth three * PRAMIPEXOLE 1 MG TABLET Take 1 tablet by mouth daily * RANITIDINE 150 MG TABLET Take 1 tablet by mouth twice * RIVAROXABAN 20 MG TABLET Take 20 mg by mouth daily wit* VITAMIN E (BULK) MISC MUPIROCIN 2 % TOPICAL CREAM Apply 1 application to affect* Problem List As Of Date 03/05/2018 Noted Resolved Vulvovaginitis [N76.0] INVALID FOR*01/13/2014 Atrial fibrillation [I48.91] INVALID FOR* Restless leg syndrome [G25.81] INVALID FOR* Hypertension [I10] Heart disease [I51.9] 01/29/2017 More... Pelvic mass in female [R19.00] INVALID FOR*05/07/2013 PAD (peripheral artery disease) [I73.9] INVALID FOR* History of myocardial infarction [I25.2] INVALID FOR* Ovarian cancer [C56.9] INVALID FOR*05/07/2013 Cellulitis, abdominal wall [L03.311] INVALID FOR*01/29/2017 Personal history of malignant neoplasm of ovary*INVALID FOR* Chronic pain [G89.29] INVALID FOR* Lumbar radiculopathy [M54.16] INVALID FOR* DDD (degenerative disc disease), lumbar [M51.36]INVALID FOR* Myofascial pain [M79.18] INVALID FOR* Pelvic pain INVALID FOR*01/02/2016 Urinary frequency [R35.0] INVALID FOR* Hematuria, microscopic [R31.29] INVALID FOR* Nocturia [R35.1] INVALID FOR* S/P coronary artery stent placement [Z95.5] INVALID FOR* Tobacco abuse [Z72.0] INVALID FOR* Family history of ischemic heart disease [Z82.4*INVALID FOR* Dyslipidemia [E78.5] INVALID FOR* Shortness of breath [R06.02] INVALID FOR* Pain of left lower extremity [M79.605] INVALID FOR* CAD (coronary artery disease) [I25.10] GERD (gastroesophageal reflux disease) [K21.9] Multiple falls [R29.6] INVALID FOR* Prescriptions ordered this encounter Disp Refills Start End MUPIROCIN 2 % TOPICAL CREAM 1 * 03/05/2018 Route: TOPICAL Sig: Apply 1 application to affected area twice daily. Location: left ring finger Encounter Status:Closed by CATHI HAYES MD on 03/05/18 EMERGENCY DEPARTMENT Observed: 02/18/2018 Status: F Source: [place] SUMMARY 1:24 PM [facility] REPOSITORY [facility] Medical Records Department [address] [place] [id number] Emergency Department Summary 02/18/18 1315 MR#: [id number] Acct: [id number] Name: KATHY PURI Rep #: [id number] : 1950 68 From: Angel Can DO PCP: Feng Hayes MD Status: PRE ER - ER Visit Summary Date of Service: 02/18/18 Chief Complaint: Left ring finger laceration History of Present Illness: The patient is a 68 F who presents with laceration to her left ring finger that occurred last night. Patient with using scissors and accidentally cut her left ring finger. Patient states the bleeding is been persistent. Patient states she is on Xarelto and Plavix. Patient denies any paresthesias or weakness. Patient states her last tetanus was less than 5 years ago. Patient states her pain is mild. Physical Examination: Vital signs are stable. Patient is afebrile. Patient is in no acute distress. Skin is warm and dry. There is a 1 cm partial- thickness avulsion laceration over the dorsal aspect of the PIP joint of the left ring finger. There is some mild bleeding noted. There is full range of motion of the MP, PIP, DIP joints. Sensation was intact light touch in all digits. Capillary refill is less than 2 seconds in all digits. The remaining physical exam is within normal limits. Emergency Department Course and Treatment: A Gelfoam and tube gauze dressing was applied. Patient was instructed to keep the left hand elevated. Patient was instructed to follow-up with her primary care physician in 5-7 days. Patient understood and was agreeable with the plan. All questions were answered. Disposition: Discharge home Impression: Avulsion laceration left ring finger This note was generated with Noom dictation software. It may contain incorrect words, spelling, and punctuation that were not noted in review of the chart prior to signing ED Disposition - Plan for ED Patient: Chief Complaint: Laceration Diagnosis: Laceration of left ring finger w/o foreign body w/o damage to nail Instructions: ED Laceration Small Superf No Sutr, ED Laceration Old Not Sutr Referrals: Feng Hayes MD [Primary Care Provider] - What to do if you have Problems For any increased pain, shortness of breath, bleeding, nausea or vomiting, chest pain, or any unexpected problems, contact your Primary Care Provider. Call [facility] ([phone]) or report to the closest Emergency Room. Call 911 if necessary. 02/18/18 1326 <Electronically signed by Angel Can DO> Date Angel Can DO Cosigner Signature (If Indicated): Date CC: Feng Hayes MD Observed: 02/07/2018 Status: F Source: [place] URINE CULTURE 2:03 PM [facility] REPOSITORY Sp. Request/Comment: - Specimen received in preservative Culture Result - 10,000 - <50,000 CFU/ml Escherichia coli --> ABNORMAL ALERT ORGANISM: Escherichia coli METHOD: Minimum inhibitory concentration(Vitek) Antibiotic Interp HOLLI Status Ampicillin SUSCEPTIBLE 4 F Gentamicin SUSCEPTIBLE <=1 F Trimeth sulfameth SUSCEPTIBLE <=20 F Cefazolin SUSCEPTIBLE <=4 F CLSI breakpoints for therapy of uncomplicated UTI's due to E.coli, K.pneumoniae, and P.mirabilis were applied and may be used to predict the activity of oral agents(cefaclor, cefdinir, cefpodoxime, cefp rozil, cefuroxime, cephalexin, loracarbef). Ciprofloxacin SUSCEPTIBLE <=0.25 F Nitrofurantoin SUSCEPTIBLE <=16 F Cefepime SUSCEPTIBLE <=1 F Piperacillin/Tazobac SUSCEPTIBLE <=4 F Ampicillin Sulbact SUSCEPTIBLE 4 F Ceftriaxone SUSCEPTIBLE <=1 F Meropenem SUSCEPTIBLE <=0.25 F Ertapenem SUSCEPTIBLE <=0.5 F Performed By: #### URCUL #### [facility] [address] [address] CNOV Observed: 02/07/2018 Status: COMPLETED Source: [place] 11:40 AM [facility] REPOSITORY Office Visit ([facility]) KATHY PURI ([id number]) 1950 F Date Time Provider Department 02/07/18 11:40 AM FARIHA GUDINO [facility] During your visit today, we recorded the following information about you: Temperature Pulse Respiration Blood pressure 97 degrees 60/minute 10/minute 138/86 Weight 77.1 kg Fariha Gudino MD 02/07/2018 12:00 PM Signed Chief Complaint Patient presents with: UTI HPI Kathy E White is a 68 year old female who presents here today for urinary issues. Two days of urinary frequency and dysuria; no fever, abd pain, vomiting, new back pain. No history of frequent or recurrent UTIs. Past medical history, appointments, medications, allergies reviewed. Previous Medical History PAST MEDICAL HISTORY Diagnosis Date - Atrial fibrillation (HCC) 07/16/2011 - CAD (coronary artery disease) seeing Dr. Treviño - Chronic lower back pain - DDD (degenerative disc disease), lumbar - Depression - GERD (gastroesophageal reflux disease) - H/O heart artery stent 7 Stents, last 2006 - Hypertension - IBS (irritable bowel syndrome) - Myocardial infarction ([facility]) x2 - Obesity - Ovarian cancer ([facility]) 09/13/[address] Blank - PAD (peripheral artery disease) ([facility]) Dr. Sathish Gar - Restless leg syndrome 07/16/2011 - Sleep apnea on Bipap - Tobacco use - Vulvovaginitis 07/16/2011 Previous Surgical History PAST SURGICAL HISTORY Procedure Laterality Date - CATARACT EXTRACTION HX Bilateral 03/2017 - COLONOSCOP W/ OR W/O [facility] SPEC 06/16/13 Colonoscopy - EGD W/O OR W/BRUSH/WASH 06/16/13 EGD - REMOVE TONSILS/ADENOIDS,<12 Y/O - REVSC OPN/PRG FEM/POP W/ANGIOPLASTY [facility] Right 01/05/15 - REVSC OPN/PRG FEM/POP W/ANGIOPLASTY [facility] Left 02-15-15 - REVSC OPN/PRG FEM/POP W/ANGIOPLASTY [facility] Left 09/23/2016 - REVSC OPN/PRQ FEM/POP W/STNT/ANGIOP [facility] 11-26-13 - REVSC OPN/PRQ FEM/POP W/STNT/ANGIOP [facility] 01/07/14 - STENTS (SPECIFY) 1999 AND 2006 7 Stents - TOTAL ABD HYSTEREC+LTD NODES 2011 DIOMEDES BSO ovarian cancer Family History FAMILY HISTORY Problem Relation Age of Onset - Heart Father [place] - Stroke Maternal Grandfather - Hypertension Sister - Psychiatry Sister Patient Allergies ALLERGIES No Known Allergies Current Medications Current Outpatient Prescriptions on File Prior to Visit: atorvastatin (LIPITOR) 40 mg tablet TAKE 1 TABLET EVERY DAY amitriptyline (ELAVIL) 25 mg tablet TAKE 3 TABLETS AT BEDTIME dicyclomine (BENTYL) 10 mg capsule take 1 capsule before meals and at bedtime pramipexole (MIRAPEX) 1 mg tablet Take 1 tablet by mouth daily at bedtime. citalopram (CELEXA) 40 mg tablet TAKE 1 TABLET EVERY DAY ranitidine (ZANTAC) 150 mg tablet Take 1 tablet by mouth twice daily. Cholecalciferol, Vitamin D3, (VITAMIN D) 1,000 unit cap Take 1,000 Units by mouth once daily. isosorbide mononitrate ER (IMDUR) 60 mg 24 hr tablet Take 1 tablet by mouth once daily. metoprolol tartrate, short acting, (LOPRESSOR) 100 mg tablet Take 1 tablet by mouth twice daily. ascorbic acid, vitamin C, (VITAMIN C) 500 mg tablet Take 500 mg by mouth once daily. ADVAIR DISKUS 500-50 mcg/dose dsdv Inhale 1 Puff as instructed once daily. ALBUTEROL SULFATE (VENTOLIN HFA INHALATION) Inhale 1 Puff as instructed as needed. amLODIPine (NORVASC) 10 mg tablet Take 1 tablet by mouth once daily. clopidogrel (PLAVIX) 75 mg tablet Take 1 tablet by mouth once daily. amiodarone (PACERONE) 200 mg tablet Take 1 tablet by mouth once daily. Multivitamin capsule Take 1 capsule by mouth once daily. VITAMIN E, BULK, MISC lisinopril (ZESTRIL, PRINIVIL) 40 mg tablet Take 1 tablet by mouth once daily. acetaminophen (TYLENOL EXTRA STRENGTH) 500 mg tablet Take 500 mg by mouth every 6 hours as needed. diphenoxylate-atropine sulfate (LOMOTIL) 2.5-0.025 mg/5 mL liquid Take 5 mL by mouth four times daily as needed. rivaroxaban (XARELTO) 20 mg tablet Take 20 mg by mouth daily with dinner. MELATONIN ORAL Take by mouth once daily. lidocaine (LIDODERM) 5 %(700 mg/patch) Apply 1 Patch as directed every 12 hours. nitroglycerin sublingual (NITROSTAT) 0.4 mg SL tablet Dissolve 1 tablet under the tongue as needed. FOR CHEST PAIN. IF NO RELIEF CALL 911 No current facility-administered medications on file prior to visit. Social History Social History Marital status: Spouse name: Years of education: Number of children: 3 Occupational History Occupation Employer Comment Retired Social History Main Topics Smoking status: Former Smoker Packs/day: 0.00 Years: 47.00 Types: Cigarettes Quit date: 04/24/2017 Smokeless tobacco: Never Used Comment: <5 per day Alcohol use: No Drug use: No Sexual activity: No Comment: Postmenopausal EXAM: BP 138/86 Pulse 60 Temp 36.1 ?C (97 ?F) (Right Tympanic) Resp 10 Wt 77.1 kg (170 lb) BMI 32.51 kg/m? General Appearance: Well appearing, alert, in no acute distress, well-hydrated, well nourished.. Lungs: lungs clear to auscultation. No wheezing, rhonchi, rales. Heart: RRR without murmur, gallop, or rubs. No ectopy. Abdomen: mild lower abd tenderness. Health Maintenance List STATIN MED ADHERENCE due on 02/14/2018 MAMMOGRAM due on 03/13/2018 COLORECTAL CANCER SCREENING,SEE MODIFIER due on 06/16/2018 ANNUAL PCP TEAM CHRONIC DISEASE VISIT due on 12/08/2018 BP CONTROLLED (<130/80) due on 12/08/2018 LDL CHOLESTEROL due on 12/23/2018 PAP EVERY 3 YEARS (65-80 YEARS OLD) due on 08/01/2020 DIABETES SCREEN due on 09/05/2020 LIPID SCREEN due on 12/23/2022 DTAP,TDAP,TD(2 - Td) due on 12/09/2027 BONE DENSITY Completed ADULT PREVNAR-13 Completed INFLUENZA Completed HEPATITIS C SCREENING Completed PNEUMOVAX AGE 65 AND OVER WITH 5YR LOOKBACK Completed Data reviewed UA pos leuk and blood ASSESSMENT/PLAN: 1. Acute cystitis with hematuria - ICD9: 595.0, ICD10: N30.01 - UA DIP, URINE (POC) - UA DIP, URINE (POC) - URINE CULTURE - PHENAZOPYRIDINE 100 MG TABLET -Macrobid Call if not improving in 3-4 days Fariha Gudino MD Referring Provider: SELF [200] Allergies As of Date: 02/07/2018 (No Known Allergies) Date Reviewed: 02/07/2018 Reviewed by: Krystin Martin Ma - Fully Assessed Reason for Visit: UTI [116] Primary Visit Diagnosis:Acute cystitis with hematuria [N30.01] Order(s):UA DIP, URINE (POC) [[id number]] Order #: [id number] UA DIP, URINE (POC) [[id number]] Order #: [id number]. #:[id number] URINE CULTURE [[id number]] Order #: [id number] phenazopyridine (PYRIDIUM) 100 mg tabletTake 1 tablet by mouth three times daily as needed.Disp: 6 tabletRfl: 1 nitrofurantoin monohydrate and macrocrystal (MACROBID) 100 mg capsuleTake 1 capsule by mouth twice daily with meals for 7 days.Disp: 14 capsuleRfl: 0 Prescriptions as of 02/07/2018 Sig: ATORVASTATIN 40 MG TABLET TAKE 1 TABLET EVERY DAY AMITRIPTYLINE 25 MG TABLET TAKE 3 TABLETS AT BEDTIME DICYCLOMINE 10 MG CAPSULE take 1 capsule before meals a* PRAMIPEXOLE 1 MG TABLET Take 1 tablet by mouth daily * CITALOPRAM 40 MG TABLET TAKE 1 TABLET EVERY DAY RANITIDINE 150 MG TABLET Take 1 tablet by mouth twice * CHOLECALCIFEROL (VITAMIN D3) * Take 1,000 Units by mouth onc* ISOSORBIDE MONONITRATE ER 60 * Take 1 tablet by mouth once d* METOPROLOL TARTRATE 100 MG TA* Take 1 tablet by mouth twice * ASCORBIC ACID (VITAMIN C) 500* Take 500 mg by mouth once elliott* ADVAIR DISKUS 500 MCG-50 MCG/* Inhale 1 Puff as instructed o* VENTOLIN HFA INHALATION Inhale 1 Puff as instructed a* AMLODIPINE 10 MG TABLET Take 1 tablet by mouth once d* CLOPIDOGREL 75 MG TABLET Take 1 tablet by mouth once d* AMIODARONE 200 MG TABLET Take 1 tablet by mouth once d* MULTIVITAMIN CAPSULE Take 1 capsule by mouth once * VITAMIN E (BULK) MISC LISINOPRIL 40 MG TABLET Take 1 tablet by mouth once d* ACETAMINOPHEN 500 MG TABLET Take 500 mg by mouth every 6 * DIPHENOXYLATE-ATROPINE 2.5 MG* Take 5 mL by mouth four times* RIVAROXABAN 20 MG TABLET Take 20 mg by mouth daily wit* MELATONIN ORAL Take by mouth once daily. LIDOCAINE 5 % TOPICAL PATCH Apply 1 Patch as directed orly* NITROGLYCERIN 0.4 MG SUBLINGU* Dissolve 1 tablet under the t* PHENAZOPYRIDINE 100 MG TABLET Take 1 tablet by mouth three * NITROFURANTOIN MONOHYDRATE AND * Take 1 capsule by mouth twice* Problem List As Of Date 02/07/2018 Noted Resolved Vulvovaginitis [N76.0] INVALID FOR*01/13/2014 Atrial fibrillation [I48.91] INVALID FOR* Restless leg syndrome [G25.81] INVALID FOR* Hypertension [I10] Heart disease [I51.9] 01/29/2017 More... Pelvic mass in female [R19.00] INVALID FOR*05/07/2013 PAD (peripheral artery disease) [I73.9] INVALID FOR* History of myocardial infarction [I25.2] INVALID FOR* Ovarian cancer [C56.9] INVALID FOR*05/07/2013 Cellulitis, abdominal wall [L03.311] INVALID FOR*01/29/2017 Personal history of malignant neoplasm of ovary*INVALID FOR* Chronic pain [G89.29] INVALID FOR* Lumbar radiculopathy [M54.16] INVALID FOR* DDD (degenerative disc disease), lumbar [M51.36]INVALID FOR* Myofascial pain [M79.18] INVALID FOR* Pelvic pain INVALID FOR*01/02/2016 Urinary frequency [R35.0] INVALID FOR* Hematuria, microscopic [R31.29] INVALID FOR* Nocturia [R35.1] INVALID FOR* S/P coronary artery stent placement [Z95.5] INVALID FOR* Tobacco abuse [Z72.0] INVALID FOR* Family history of ischemic heart disease [Z82.4*INVALID FOR* Dyslipidemia [E78.5] INVALID FOR* Shortness of breath [R06.02] INVALID FOR* Pain of left lower extremity [M79.605] INVALID FOR* CAD (coronary artery disease) [I25.10] GERD (gastroesophageal reflux disease) [K21.9] Multiple falls [R29.6] INVALID FOR* Prescriptions ordered this encounter Disp Refills Start End PHENAZOPYRIDINE 100 MG TABLET 6 ta* 1 02/07/2018 Route: ORAL Sig: Take 1 tablet by mouth three times daily as needed. NITROFURANTOIN MONOHYDRATE AND MACROCR* 14 c* 0 02/07/2018 02/14/2018 Route: ORAL Sig: Take 1 capsule by mouth twice daily with meals for 7 days. Disposition: Return if symptoms worsen or fail to improve. Follow-up and Disposition History Recorded Encounter Status:Closed by FARIHA GUDINO MD on 02/07/18 PROGRESS Observed: 02/07/2018 Status: COMPLETED Source: [place] 11:[address] [facility] REPOSITORY HNO ID: [id number] Author: Fariha Gudino Service: (none) Author Type: Physician Type: Progress Notes Filed: 02/07/2018 12:00 PM Note Text: Chief Complaint Patient presents with: UTI HPI Kathy Puri is a 68 year old female who presents here today for urinary issues. Two days of urinary frequency and dysuria; no fever, abd pain, vomiting, new back pain. No history of frequent or recurrent UTIs. Past medical history, appointments, medications, allergies reviewed. Previous Medical History PAST MEDICAL HISTORY Diagnosis Date - Atrial fibrillation (HCC) 07/16/2011 - CAD (coronary artery disease) seeing Dr. Treviño - Chronic lower back pain - DDD (degenerative disc disease), lumbar - Depression - GERD (gastroesophageal reflux disease) - H/O heart artery stent 7 Stents, last 2006 - Hypertension - IBS (irritable bowel syndrome) - Myocardial infarction ([facility]) x2 - Obesity - Ovarian cancer ([facility]) 09/13/[address] Blank - PAD (peripheral artery disease) ([facility]) Dr. Sathish Gar - Restless leg syndrome 07/16/2011 - Sleep apnea on Bipap - Tobacco use - Vulvovaginitis 07/16/2011 Previous Surgical History PAST SURGICAL HISTORY Procedure Laterality Date - CATARACT EXTRACTION HX Bilateral 03/2017 - COLONOSCOP W/ OR W/O [facility] SPEC 06/16/13 Colonoscopy - EGD W/O OR W/BRUSH/WASH 06/16/13 EGD - REMOVE TONSILS/ADENOIDS,<12 Y/O - REVSC OPN/PRG FEM/POP W/ANGIOPLASTY [facility]I Right 01/05/15 - REVSC OPN/PRG FEM/POP W/ANGIOPLASTY [facility] Left 02-15-15 - REVSC OPN/PRG FEM/POP W/ANGIOPLASTY [facility] Left 09/23/2016 - REVSC OPN/PRQ FEM/POP W/STNT/ANGIOP [facility] 11-26-13 - REVSC OPN/PRQ FEM/POP W/STNT/ANGIOP [facility] 01/07/14 - STENTS (SPECIFY) 1999 AND 2006 7 Stents - TOTAL ABD HYSTEREC+LTD NODES 2012 DIOMEDES BSO ovarian cancer Family History FAMILY HISTORY Problem Relation Age of Onset - Heart Father [place] - Stroke Maternal Grandfather - Hypertension Sister - Psychiatry Sister Patient Allergies ALLERGIES No Known Allergies Current Medications Current Outpatient Prescriptions on File Prior to Visit: atorvastatin (LIPITOR) 40 mg tablet TAKE 1 TABLET EVERY DAY amitriptyline (ELAVIL) 25 mg tablet TAKE 3 TABLETS AT BEDTIME dicyclomine (BENTYL) 10 mg capsule take 1 capsule before meals and at bedtime pramipexole (MIRAPEX) 1 mg tablet Take 1 tablet by mouth daily at bedtime. citalopram (CELEXA) 40 mg tablet TAKE 1 TABLET EVERY DAY ranitidine (ZANTAC) 150 mg tablet Take 1 tablet by mouth twice daily. Cholecalciferol, Vitamin D3, (VITAMIN D) 1,000 unit cap Take 1,000 Units by mouth once daily. isosorbide mononitrate ER (IMDUR) 60 mg 24 hr tablet Take 1 tablet by mouth once daily. metoprolol tartrate, short acting, (LOPRESSOR) 100 mg tablet Take 1 tablet by mouth twice daily. ascorbic acid, vitamin C, (VITAMIN C) 500 mg tablet Take 500 mg by mouth once daily. ADVAIR DISKUS 500-50 mcg/dose dsdv Inhale 1 Puff as instructed once daily. ALBUTEROL SULFATE (VENTOLIN HFA INHALATION) Inhale 1 Puff as instructed as needed. amLODIPine (NORVASC) 10 mg tablet Take 1 tablet by mouth once daily. clopidogrel (PLAVIX) 75 mg tablet Take 1 tablet by mouth once daily. amiodarone (PACERONE) 200 mg tablet Take 1 tablet by mouth once daily. Multivitamin capsule Take 1 capsule by mouth once daily. VITAMIN E, BULK, MISC lisinopril (ZESTRIL, PRINIVIL) 40 mg tablet Take 1 tablet by mouth once daily. acetaminophen (TYLENOL EXTRA STRENGTH) 500 mg tablet Take 500 mg by mouth every 6 hours as needed. diphenoxylate-atropine sulfate (LOMOTIL) 2.5-0.025 mg/5 mL liquid Take 5 mL by mouth four times daily as needed. rivaroxaban (XARELTO) 20 mg tablet Take 20 mg by mouth daily with dinner. MELATONIN ORAL Take by mouth once daily. lidocaine (LIDODERM) 5 %(700 mg/patch) Apply 1 Patch as directed every 12 hours. nitroglycerin sublingual (NITROSTAT) 0.4 mg SL tablet Dissolve 1 tablet under the tongue as needed. FOR CHEST PAIN. IF NO RELIEF CALL 911 No current facility-administered medications on file prior to visit. Social History Social History Marital status: Spouse name: Years of education: Number of children: 3 Occupational History Occupation Employer Comment Retired Social History Main Topics Smoking status: Former Smoker Packs/day: 0.00 Years: 47.00 Types: Cigarettes Quit date: 04/24/2017 Smokeless tobacco: Never Used Comment: <5 per day Alcohol use: No Drug use: No Sexual activity: No Comment: Postmenopausal EXAM: BP 138/86 Pulse 60 Temp 36.1 ?C (97 ?F) (Right Tympanic) Resp 10 Wt 77.1 kg (170 lb) BMI 32.51 kg/m? General Appearance: Well appearing, alert, in no acute distress, well-hydrated, well nourished.. Lungs: lungs clear to auscultation. No wheezing, rhonchi, rales. Heart: RRR without murmur, gallop, or rubs. No ectopy. Abdomen: mild lower abd tenderness. Health Maintenance List STATIN MED ADHERENCE due on 02/14/2018 MAMMOGRAM due on 03/13/2018 COLORECTAL CANCER SCREENING,SEE MODIFIER due on 06/16/2018 ANNUAL PCP TEAM CHRONIC DISEASE VISIT due on 12/08/2018 BP CONTROLLED (<130/80) due on 12/08/2018 LDL CHOLESTEROL due on 12/23/2018 PAP EVERY 3 YEARS (65-80 YEARS OLD) due on 08/01/2020 DIABETES SCREEN due on 09/05/2020 LIPID SCREEN due on 12/23/2022 DTAP,TDAP,TD(2 - Td) due on 12/09/2027 BONE DENSITY Completed ADULT PREVNAR-13 Completed INFLUENZA Completed HEPATITIS C SCREENING Completed PNEUMOVAX AGE 65 AND OVER WITH 5YR LOOKBACK Completed Data reviewed UA pos leuk and blood ASSESSMENT/PLAN: 1. Acute cystitis with hematuria - ICD9: 595.0, ICD10: N30.01 - UA DIP, URINE (POC) - UA DIP, URINE (POC) - URINE CULTURE - PHENAZOPYRIDINE 100 MG TABLET -Macrobid Call if not improving in 3-4 days Fariha Gudino MD PROGRESS Observed: 12/31/2017 Status: COMPLETED Source: [place] 1:[facility] PM [facility] RE[facility]ITORY HNO ID: [id number] Author: Jose (Pt) Elvis Service: (none) Author Type: Physical Therapist Type: Progress Notes Filed: 12/31/2017 1:32 PM Note Text: Episode Visit Count: 1 Therapist That Will Oversee The Plan Of Care: Jose Leal PT Start of Care Date: 12/31/17 Onset Date: 12/31/12 Plan of Care Certification Date: 12/31/17 Patient Identified by Name and Date of : Yes REHABILITATION AND SPORTS THERAPY PHYSICAL THERAPY EVALUATION PLAN OF CARE: Assessment: Kathy Puri presents with the chief complaint of clumsiness, weakness and balance deficits resulting in frequent falls. She presents with impairments of LE weakness/endurance deficits, balance deficits and reported frequent falls. She may benefit from skilled therapy services to improve strength, endurance, balance, safety, proper use of cane and prevent future falls and injuries from falls. Assessment Fall Risk : Inactive at risk Prognosis: Good Good due to: Prognosis may be limited;current objective clinical presentation;within-session changes at evaluation;good support system/ coping skills Prognosis may be limited by: chronic nature of impairments;limited tolerance to activity;multiple co- morbidities Goals for Episode of Care: created on 12/31/17 through 02/25/18 Patient will report no falls. Improve score on Timed Up and Go Test to 7.24 seconds to reflect decreased fall risk. Improve performance on 4 Stage Balance Test to 30 seconds for SLS to reflect decreased fall risk. [place] in home exercise program including cardiovascular exercise. Patient will demonstrate independent and proper use of assisstive device to allow for improved walking quality and safety therefore reducing the risk of falls. Patient will improve his/her AM-PAC T-scale score by 4 points to indicate a Minimal Clincial Important Difference. Increase strength of core and LEs functionally to WFL in order to increase standing and walking tolerance with increased safety and stability. G CODE REPORTING Based on clinical assessment and the score on the AM-PAC Scale Score Assessment Tool, the G code and corresponding severity modifiers are documented below. Evaluation: 12/31/2017 Current Status: Mobility: Walking and Moving Around: G8978 CJ 20-39% impaired Goal Status: Mobility: Walking and Moving Around: G8979 CJ 20-39% impaired Planned Interventions, Frequency, and Duration: Current Frequency: 2x/week Duration: 8 weeks Total Number of Visits Planned: 16 Planned Treatment Interventions: Therapeutic exercise;Neuromuscular re-education;Therapeutic activities;Self-senior living management;Gait Training;Patient/Family/Caregiver Education;Body Mechanics Training;Functional training;General Conditioning PLAN FOR NEXT VISIT: review and progress HEP as tolerated, begin high level balance and gait training since pt was encouraged to bring cane next visit and begin functional strength/endurance training for B LEs and core. Balance training is definitely appropriate but her falls may be related more to LE strength and endurance deficits from circulatory limitations and therefore strength training is appropriate. Patient demonstrates good understanding of plan of care and treatment. The above goals and plan of care were discussed and agreed upon by patient/family. SUBJECTIVE: Kathy Puri is a 67 year old female seen today for intermittent difficulties with balance and stability. She denies use of an assistive device. She reports falling daily. She reports that falls typically occur when she gets in a hurry. She denies any consistent explanation for falls. Pt reports circulatory problems in her LEs that cause her LE weakness and fatigue. She even reports that she may need additional vascular surgery on her LEs but that she is not currently a surgical candidate for 3 other reasons. Patient Goals: fall less to prevent injury Functional Limitations: stair negotiation;walking (prolonged walking) Prior Level of Function: Independent without limitations Relevant History Medical Conditions: Cardiac ([place] x2 in past and current chest pains, last [place] 2006, Afib) Surgical Conditions: Other: See Comment (7 stent placements in heart and one in each leg, ) Employment: Retired Home Environment Patient Lives With: (Daughter and grandson) Assistance Available: PRN Home Type: Multi-Level Entry To Home: Stairs;With Rail Number Of Stairs Into Home: 5 Number Of Stairs To Bed/Bath: 12 Stairs to Bed/Bath with: Unilateral Rail Equipment Owned: Cane Intake Information: Prescription present Previous Treatment: None Falls Interview: Two or more falls in the last year Falls Intervention: Falls Specific Functional Performance Tests Falls History # of falls in past year: 100 # of falls resulting in an injury in past year: 2 Pain Score: 0/10 Post Treatment Pain Score: 0/10 Pain Location: (no pain) Post Treatment Symptoms: Pt reported feeling generally better after session today OBJECTIVE MEASURES WITH LEVEL OF FUNCTION: Posture / Alignment Posture: Forward head;Rounded shoulders LE PROM R LE PROM: WNL L LE PROM : WNL LE Strength R LE Strength: Pt's reported functional difficulties are indications that she will benefit from increased functional LE strength. It is quite possible that pt's frequent falls are related to lack of LE strength and endurance and less related to pure balance deficits. She may be tripping because of poor foot clearance. L LE Strength: Pt's reported functional difficulties are indications that she will benefit from increased functional LE strength. It is quite possible that pt's frequent falls are related to lack of LE strength and endurance and less related to pure balance deficits. She may be tripping because of poor foot clearance. Gait Stairs: Pt reports frequent falls on the steps. Balance Dynamic Standing Balance: Tandem Walking (heel to toe) Tandem Walking: fair+ Functional Performance Test Results Assistive Device: (none) 30 Second Sit to Stand Test (reps): 13 reps Chair Stand Test: 13 reps Timed Up and Go (sec): 9.4 sec 4 Stage Balance Test Narrow base of support (sec): 60 sec Semi-tandem base of support (sec): 60 sec Tandem base of support (sec): 14 sec Single leg stance - right (sec): 33 sec Single leg stance - left (sec): 18 sec Education: Education Learning Preferences: Demonstration;Explanation;Performance;Printed Materials Barriers: None Learning/educational needs: Gait Training;Plan of Care;Home exercise program;Safety;Health promotion;Lifestyle changes Education Provided: Yes, see treatment interventions for education provided Education Provided To: Patient Education Mode/Type: Demonstration;Explanation/Discussion;Literature/Printed Materials;Performance Response to Education/Teach Back: States/Identifies;Return Demonstration;Requires Review/Additional Education TREATMENT: Evaluation Therapeutic Exercise: 1: Pt was educated on all exam findings and likely source of functional limitations. She was educated on recommended treatment plan with rationale. Pt was asked to bring her cane to next visit and to start using this. She was encouraged to pace herself with functional task performance at home to decrease fatigue and decrease risk of falls. She was instructed to always perform LE therex seated to decrease the risk of falls. She was educated on the dangers of furniture walking and that she should not do this. 2: *seated B ankle DF/PF 2x20 3: *seated B marching 2x10 4: *seated B alt knee extension 2x10 Skilled Intervention: Patient was educated in proper exercise technique and purpose for exercises. Reviewed and educated patient on additions/changes for home exercise program as above (*) Skilled judgment was provided in selection of appropriate interventions. Provided written instruction for home exercise program to facilitate proper performance and compliance. Correct performance of therapeutic exercises was facilitated with verbal, visual and tactile cuing. Billing: [facility]: Evaluation - Moderate Complexity (36297) Therapeutic Exercise (96982): 1:1 time: 15 minutes (1 unit: 8-22 mins) Total time: 45 minutes Jose Leal PT CNTHERAPY Observed: 12/31/2017 Status: COMPLETED Source: [place] 10:30 AM [facility] REPOSITORY OT/PT/Speech Visit (PTWS) KATHY PURI ([id number]) 1950 F Date Time Provider Department 12/31/17 10:30 AM JOSE LEAL (PT) PTWS Date Time Provider Department Center 12/31/2017 10:30 AM [id number], BRENT (PT) PTWS [facility] Reason for Visit: PT Eval [747] Patient Education [91] Visit Diagnosis:Multiple falls [R29.6] Allergies As of Date: 12/31/2017 (No Known Allergies) Date Reviewed: 12/08/2017 Reviewed by: Ivis Gerard (Kandis) KANDIS Muller - Fully Assessed Prescriptions as of 12/31/2017 Sig: CITALOPRAM 40 MG TABLET TAKE 1 TABLET EVERY DAY DICYCLOMINE 10 MG CAPSULE take 1 capsule before meals a* ATORVASTATIN 40 MG TABLET Take 1 tablet by mouth once d* RANITIDINE 150 MG TABLET Take 1 tablet by mouth twice * AMITRIPTYLINE 25 MG TABLET TAKE 3 TABLETS DAILY AT BEDTI* CHOLECALCIFEROL (VITAMIN D3) * Take 1,000 Units by mouth onc* ISOSORBIDE MONONITRATE ER 60 * Take 1 tablet by mouth once d* METOPROLOL TARTRATE 100 MG TA* Take 1 tablet by mouth twice * ASCORBIC ACID (VITAMIN C) 500* Take 500 mg by mouth once elliott* ADVAIR DISKUS 500 MCG-50 MCG/* Inhale 1 Puff as instructed o* VENTOLIN HFA INHALATION Inhale 1 Puff as instructed a* AMLODIPINE 10 MG TABLET Take 1 tablet by mouth once d* PRAMIPEXOLE 1 MG TABLET Take 1 tablet by mouth daily * CLOPIDOGREL 75 MG TABLET Take 1 tablet by mouth once d* AMIODARONE 200 MG TABLET Take 1 tablet by mouth once d* MULTIVITAMIN CAPSULE Take 1 capsule by mouth once * VITAMIN E (BULK) MISC LISINOPRIL 40 MG TABLET Take 1 tablet by mouth once d* ACETAMINOPHEN 500 MG TABLET Take 500 mg by mouth every 6 * DIPHENOXYLATE-ATROPINE 2.5 MG* Take 5 mL by mouth four times* RIVAROXABAN 20 MG TABLET Take 20 mg by mouth daily wit* MELATONIN ORAL Take by mouth once daily. LIDOCAINE 5 % TOPICAL PATCH Apply 1 Patch as directed oryl* NITROGLYCERIN 0.4 MG SUBLINGU* Dissolve 1 tablet under the t* Progress Notes: Jose Leal PT 12/31/2017 1:32 PM Signed Episode Visit Count: 1 Therapist That Will Oversee The Plan Of Care: Jose Leal PT Start of Care Date: 12/31/17 Onset Date: 12/31/12 Plan of Care Certification Date: 12/31/17 Patient Identified by Name and Date of : Yes REHABILITATION AND SPORTS THERAPY PHYSICAL THERAPY EVALUATION PLAN OF CARE: Assessment: Kathy Puri presents with the chief complaint of clumsiness, weakness and balance deficits resulting in frequent falls. She presents with impairments of LE weakness/endurance deficits, balance deficits and reported frequent falls. She may benefit from skilled therapy services to improve strength, endurance, balance, safety, proper use of cane and prevent future falls and injuries from falls. Assessment Fall Risk : Inactive at risk Prognosis: Good Good due to: Prognosis may be limited;current objective clinical presentation;within-session changes at evaluation;good support system/ coping skills Prognosis may be limited by: chronic nature of impairments;limited tolerance to activity;multiple co- morbidities Goals for Episode of Care: created on 12/31/17 through 02/25/18 Patient will report no falls. Improve score on Timed Up and Go Test to 7.24 seconds to reflect decreased fall risk. Improve performance on 4 Stage Balance Test to 30 seconds for SLS to reflect decreased fall risk. [place] in home exercise program including cardiovascular exercise. Patient will demonstrate independent and proper use of assisstive device to allow for improved walking quality and safety therefore reducing the risk of falls. Patient will improve his/her AM-PAC T-scale score by 4 points to indicate a Minimal Clincial Important Difference. Increase strength of core and LEs functionally to WFL in order to increase standing and walking tolerance with increased safety and stability. G CODE REPORTING Based on clinical assessment and the score on the AM-PAC Scale Score Assessment Tool, the G code and corresponding severity modifiers are documented below. Evaluation: 12/31/2017 Current Status: Mobility: Walking and Moving Around: [id number] 20-39% impaired Goal Status: Mobility: Walking and Moving Around: G8979 20-39% impaired Planned Interventions, Frequency, and Duration: Current Frequency: 2x/week Duration: 8 weeks Total Number of Visits Planned: 16 Planned Treatment Interventions: Therapeutic exercise;Neuromuscular re-education;Therapeutic activities;Self-senior living management;Gait Training;Patient/Family/Caregiver Education;Body Mechanics Training;Functional training;General Conditioning PLAN FOR NEXT VISIT: review and progress HEP as tolerated, begin high level balance and gait training since pt was encouraged to bring cane next visit and begin functional strength/endurance training for B LEs and core. Balance training is definitely appropriate but her falls may be related more to LE strength and endurance deficits from circulatory limitations and therefore strength training is appropriate. Patient demonstrates good understanding of plan of care and treatment. The above goals and plan of care were discussed and agreed upon by patient/family. SUBJECTIVE: Kathy Puri is a 67 year old female seen today for intermittent difficulties with balance and stability. She denies use of an assistive device. She reports falling daily. She reports that falls typically occur when she gets in a hurry. She denies any consistent explanation for falls. Pt reports circulatory problems in her LEs that cause her LE weakness and fatigue. She even reports that she may need additional vascular surgery on her LEs but that she is not currently a surgical candidate for 3 other reasons. Patient Goals: fall less to prevent injury Functional Limitations: stair negotiation;walking (prolonged walking) Prior Level of Function: Independent without limitations Relevant History Medical Conditions: Cardiac ([place] x2 in past and current chest pains, last [place] 2006, Afib) Surgical Conditions: Other: See Comment (7 stent placements in heart and one in each leg, ) Employment: Retired Home Environment Patient Lives With: (Daughter and grandson) Assistance Available: PRN Home Type: Multi-Level Entry To Home: Stairs;With Rail Number Of Stairs Into Home: 5 Number Of Stairs To Bed/Bath: 12 Stairs to Bed/Bath with: Unilateral Rail Equipment Owned: Cane Intake Information: Prescription present Previous Treatment: None Falls Interview: Two or more falls in the last year Falls Intervention: Falls Specific Functional Performance Tests Falls History # of falls in past year: 100 # of falls resulting in an injury in past year: 2 Pain Score: 0/10 Post Treatment Pain Score: 0/10 Pain Location: (no pain) Post Treatment Symptoms: Pt reported feeling generally better after session today OBJECTIVE MEASURES WITH LEVEL OF FUNCTION: Posture / Alignment Posture: Forward head;Rounded shoulders LE PROM R LE PROM: WNL L LE PROM : WNL LE Strength R LE Strength: Pt's reported functional difficulties are indications that she will benefit from increased functional LE strength. It is quite possible that pt's frequent falls are related to lack of LE strength and endurance and less related to pure balance deficits. She may be tripping because of poor foot clearance. L LE Strength: Pt's reported functional difficulties are indications that she will benefit from increased functional LE strength. It is quite possible that pt's frequent falls are related to lack of LE strength and endurance and less related to pure balance deficits. She may be tripping because of poor foot clearance. Gait Stairs: Pt reports frequent falls on the steps. Balance Dynamic Standing Balance: Tandem Walking (heel to toe) Tandem Walking: fair+ Functional Performance Test Results Assistive Device: (none) 30 Second Sit to Stand Test (reps): 13 reps Chair Stand Test: 13 reps Timed Up and Go (sec): 9.4 sec 4 Stage Balance Test Narrow base of support (sec): 60 sec Semi-tandem base of support (sec): 60 sec Tandem base of support (sec): 14 sec Single leg stance - right (sec): 33 sec Single leg stance - left (sec): 18 sec Education: Education Learning Preferences: Demonstration;Explanation;Performance;Printed Materials Barriers: None Learning/educational needs: Gait Training;Plan of Care;Home exercise program;Safety;Health promotion;Lifestyle changes Education Provided: Yes, see treatment interventions for education provided Education Provided To: Patient Education Mode/Type: Demonstration;Explanation/Discussion;Literature/Printed Materials;Performance Response to Education/Teach Back: States/Identifies;Return Demonstration;Requires Review/Additional Education TREATMENT: Evaluation Therapeutic Exercise: 1: Pt was educated on all exam findings and likely source of functional limitations. She was educated on recommended treatment plan with rationale. Pt was asked to bring her cane to next visit and to start using this. She was encouraged to pace herself with functional task performance at home to decrease fatigue and decrease risk of falls. She was instructed to always perform LE therex seated to decrease the risk of falls. She was educated on the dangers of furniture walking and that she should not do this. 2: *seated B ankle DF/PF 2x20 3: *seated B marching 2x10 4: *seated B alt knee extension 2x10 Skilled Intervention: Patient was educated in proper exercise technique and purpose for exercises. Reviewed and educated patient on additions/changes for home exercise program as above (*) Skilled judgment was provided in selection of appropriate interventions. Provided written instruction for home exercise program to facilitate proper performance and compliance. Correct performance of therapeutic exercises was facilitated with verbal, visual and tactile cuing. Billing: [facility]: Evaluation - Moderate Complexity (71091) Therapeutic Exercise (35895): 1:1 time: 15 minutes (1 unit: 8-22 mins) Total time: 45 minutes Jose Leal PT LIPID PANEL, BASIC Collected: 12/23/2017 Status: F Source: [place] 9:[address] [facility] [place] REPOSITORY TYPE CODE TESTS RESULT OUT OF REFERENCE UNITS RANGE LAB CHOL <200 mg/dL Cholesterol 127 Result Comment: <200 mg/dL, Desirable 200-239 mg/dL, Borderline high >239 mg/dL, High LAB TRIGLY <150 mg/dL Triglyceride 111 Result Comment: <150 mg/dL, Normal 150-199 mg/dL, Borderline high 200-499 mg/dL, High >499 mg/dL, Very high LAB HDL >39 mg/dL HDL-Cholesterol 45 Result Comment: 40-59 mg/dL, Acceptable >59 mg/dL, High: Negative risk factor for coronary heart disease <40 mg/dL, Low: Positive risk factor for coronary heart disease LAB LDL <100 mg/dL LDL-Cholesterol 60 Result Comment: <100 mg/dL, Optimal 100-129 mg/dL, Near optimal/above optimal 130-159 mg/dL, Borderline high 160-189 mg/dL, High >189 mg/dL, Very high Secondary prevention optimal LDL Cholesterol levels are recommended to be < 70 mg/dL LAB NONHDL <130 mg/dL Non HDL Cholesterol 82 Result Comment: <130 mg/dL, Optimal 130-159 mg/dL, Near optimal/above optimal 160-189 mg/dL, Borderline high 190-219 mg/dL, High >219 mg/dL, Very high Secondary prevention optimal non HDL Cholesterol levels are recommended to be < 100 mg/dL LAB FT hrs Fasting Time 13 LAB VLDL <30 mg/dL VLDL Cholesterol 22 LAB TCHDL <5.10 TC:HDL Ratio 2.82 LAB LDLHDL <2.54 LDL:HDL Ratio 1.33 Result Comment: Reference: 1. National Cholesterol Education Program ATP III Guideline At-A-Glance Quick Desk Reference: National Heart, Lung, and Blood [place]. National Institutes of Health. 2001: NIH Publication No. 01-3305. 2. An International Atherosclerosis Society position paper: global recommendations for the management of dyslipidemia: executive summary, Atherosclerosis. 2014: 232(2):410-413. Performed By: #### LIPB, STREV #### [facility] [address] [place], [place] [address] STAFF REV W CBCDIF Collected: 12/23/2017 Status: F Source: [place] 9:03 AM [facility] REPOSITORY TYPE CODE TESTS RESULT OUT OF REFERENCE UNITS RANGE LAB WBC 3.70-11.00 k/uL WBC 6.89 LAB RBC 3.90-5.20 m/uL RBC 4.28 LAB HGB 11.5-15.5 g/dL Hemoglobin 13.4 LAB HCT 36.0-46.0 % Hematocrit 39.3 LAB MCV 80.0-100.0 fL MCV 91.8 LAB MCH 26.0-34.0 pG MCH 31.3 LAB MCHC 30.5-36.0 g/dL MCHC 34.1 LAB RDWCV 11.5-15.0 % RDW-CV 13.1 LAB PLTCT 150-400 k/uL Platelet Count 206 LAB MPV 9.0-12.7 fL MPV 11.3 LAB ANEUT % Neut% 67.1 LAB AANEUT 1.45-7.50 k/uL Abs Neut 4.62 LAB ALYMP % Lymph% 22.9 LAB AALYMP 1.00-4.00 k/uL Abs Lymph 1.58 LAB AMONO % [place]% 7.4 LAB AAMONO <0.87 k/uL Abs [place] 0.51 LAB AEOS % Eosin% 2.2 LAB AAEOS <0.46 k/uL Abs Eosin 0.15 LAB ABASO % Baso% 0.4 LAB AABASO <0.11 k/uL Abs Baso 0.03 LAB AUNRBC 0 /100 WBC NRBCs 0.0 LAB ABNRBC <0.01 k/uL Absolute nRBC <0.01 LAB DTYP DTYPE Auto Diff LAB SREVW Staff Review SEE COMMENT Result Comment: The Staff Review on this sample was cancelled because the hematology analyzer did not flag any parameters as requiring manual review. If there is a specific clinical concern for which yo u would like a staff pathologist to review the blood smear, please call Lab Client Services within 28 days. Account Credited LAB SRPATH Pathologist The Staff Review on this sample was cancelled because the hematology analyzer did not flag any parameters as requiring manual review. If there is a specific clinical concern for which you would like a staff pathologist to review the blood smear, please call Lab Client Services within 28 days. Result Comment: Account Credited Performed By: #### LIPB, STREV #### [facility] [address] [place], [place] [address] PROGRESS Observed: 12/08/2017 Status: COMPLETED Source: [place] 10:[address] [facility] REPOSITORY HNO ID: [id number] Author: Aminata Valladares) Podlogar Service: (none) Author Type: Nurse Practitioner Type: Progress Notes Filed: 12/09/2017 7:26 AM Note Text: 12/08/2017 Patient presents with: Recheck: 3 month Imm/Inj: Flu Vaccine SUBJECTIVE: This is a 67 year old that is here today for Above Complaints. GERD: taking zantac 150 mg twice daily- sometimes will go a couple weeks and it will be ok then has a couple days will act up- will take TUMS and use milk which will help. Does not eat after 7PM. Has not elevated HOB as recommend. Reports she has tried decreasing foods that cause it but reports it does not seem to help. HTN: Patient is compliant with meds Yes Monitors bp at home: Yes. Getting similar to what we got today 11's over 60's Denies side effects: Yes. Chest pain: No. Dyspnea: No. Edema: No. Palpitations: No. Syncope: No. Headache: No. Dizziness: No. HYPERLIPIDEMIA: Patient is taking medications: Yes. Patient is watching diet: Yes. Patient denies myalgias: No. Patient denies gi upset: No Smoking: Smoking anywhere from 1-3 a day. Setting quit day for her birthday 2019. Fell last Thrusday while going up steps- had stuff in hands- reports fell forward onto carpet at stop of steps and fell on right hip. Denies pain or bruising today. Reports it tends to happen when she doesn't have her shoes on and is wearing footies or flip-flops. Has hand railings on stairs PAST MEDICAL HISTORY Diagnosis Date - Atrial fibrillation ([facility]) 07/16/2011 - CAD (coronary artery disease) seeing Dr. Treviño - Chronic lower back pain - DDD (degenerative disc disease), lumbar - Depression - GERD (gastroesophageal reflux disease) - H/O heart artery stent 7 Stents, last 2006 - Hypertension - IBS (irritable bowel syndrome) - Myocardial infarction ([facility]) x2 - Obesity - Ovarian cancer ([facility]) 09/13/[address] Blank - PAD (peripheral artery disease) ([facility]) Dr. Sathish Gar - Restless leg syndrome 07/16/2011 - Sleep apnea on Bipap - Tobacco use - Vulvovaginitis 07/16/2011 ALLERGIES Patient has no known allergies. MEDICATIONS Current Outpatient Prescriptions: dicyclomine (BENTYL) 10 mg capsule take 1 capsule before meals and at bedtime atorvastatin (LIPITOR) 40 mg tablet Take 1 tablet by mouth once daily. ranitidine (ZANTAC) 150 mg tablet Take 1 tablet by mouth twice daily. amitriptyline (ELAVIL) 25 mg tablet TAKE 3 TABLETS DAILY AT BEDTIME Cholecalciferol, Vitamin D3, (VITAMIN D) 1,000 unit cap Take 1,000 Units by mouth once daily. isosorbide mononitrate ER (IMDUR) 60 mg 24 hr tablet Take 1 tablet by mouth once daily. metoprolol tartrate, short acting, (LOPRESSOR) 100 mg tablet Take 1 tablet by mouth twice daily. citalopram (CELEXA) 40 mg tablet TAKE 1 TABLET EVERY DAY ascorbic acid, vitamin C, (VITAMIN C) 500 mg tablet Take 500 mg by mouth once daily. ADVAIR DISKUS 500-50 mcg/dose dsdv Inhale 1 Puff as instructed once daily. ALBUTEROL SULFATE (VENTOLIN HFA INHALATION) Inhale 1 Puff as instructed as needed. amLODIPine (NORVASC) 10 mg tablet Take 1 tablet by mouth once daily. pramipexole (MIRAPEX) 1 mg tablet Take 1 tablet by mouth daily at bedtime. clopidogrel (PLAVIX) 75 mg tablet Take 1 tablet by mouth once daily. amiodarone (PACERONE) 200 mg tablet Take 1 tablet by mouth once daily. Multivitamin capsule Take 1 capsule by mouth once daily. VITAMIN E, BULK, MISC diphenoxylate-atropine sulfate (LOMOTIL) 2.5-0.025 mg/5 mL liquid Take 5 mL by mouth four times daily as needed. rivaroxaban (XARELTO) 20 mg tablet Take 20 mg by mouth daily with dinner. MELATONIN ORAL Take by mouth once daily. lidocaine (LIDODERM) 5 %(700 mg/patch) Apply 1 Patch as directed every 12 hours. nitroglycerin sublingual (NITROSTAT) 0.4 mg SL tablet Dissolve 1 tablet under the tongue as needed. FOR CHEST PAIN. IF NO RELIEF CALL 911 lisinopril (ZESTRIL, PRINIVIL) 40 mg tablet Take 1 tablet by mouth once daily. acetaminophen (TYLENOL EXTRA STRENGTH) 500 mg tablet Take 500 mg by mouth every 6 hours as needed. No current facility-administered medications for this visit. Medications and allergies reviewed by this provider. SOCIAL HISTORY Social History Marital status: Spouse name: Years of education: Number of children: 3 Occupational History Occupation Employer Comment Retired Social History Main Topics Smoking status: Former Smoker Packs/day: 0.00 Years: 47.00 Types: Cigarettes Quit date: 04/24/2017 Smokeless tobacco: Never Used Comment: <5 per day Alcohol use: No Drug use: No Sexual activity: No Comment: Postmenopausal REVIEW OF SYSTEMS GENERAL: No weight loss, malaise or fevers RESPIRATORY: Negative for cough, hemoptysis, wheezing, COPD, dyspnea or shortness of breath CARDIOVASCULAR: Negative for chest pain, leg swelling, hypertension, CHF or palpitations GI: No nausea, vomiting, or diarrhea MUSCULOSKELETAL: See HPI SKIN: See HPI All other reviewed and negative other than HPI. OBJECTIVE: BP 110/56 (BP Site: Left Arm, BP Position: Sitting, BP Cuff Size: Regular Adult) Pulse (!) 58 Resp 16 Wt 76.7 kg (169 lb) BMI 32.32 kg/m? . Vital signs reviewed by this provider. APPEARANCE Well appearing, alert, in no acute distress, well-hydrated, well nourished. HEART RRR with normal S1 and S2, no murmurs, no gallops, no JVD appreciated LUNG clear to auscultation ABDOMEN bowel sounds normoactive, no bruits, soft, non-tender, non-distended EXTREMITIES Extremities normal, No deformities, No skin discoloration, No edema and Normal pulses bilaterally. SKIN Skin color, texture, turgor normal, no suspicious rashes or lesions HIPS: Location: bilateral Redness: Warmth Range of Motion: WNL Tenderness: none Pain with movement: None LDL CHOLESTEROL due on 04/22/2016 INFLUENZA(1) due on 11/15/2017 STATIN MED ADHERENCE due on 12/15/2017 MAMMOGRAM due on 03/13/2018 COLORECTAL CANCER SCREENING,SEE MODIFIER due on 06/16/2018 ANNUAL PCP TEAM CHRONIC DISEASE VISIT due on 11/21/2018 BP CONTROLLED (<130/80) due on 12/08/2018 LIPID SCREEN due on 04/22/2020 DIABETES SCREEN due on 09/05/2020 DTAP,TDAP,TD(2 - Td) due on 12/09/2027 BONE DENSITY Completed ADULT PREVNAR-13 Completed HEPATITIS C SCREENING Completed PNEUMOVAX AGE 65 AND OVER WITH 5YR LOOKBACK Completed ASSESSMENT/PLAN: 1. Essential hypertension - ICD9: 401.9, ICD10: I10 (primary diagnosis) - good control - Continue current medication(s) - Encouraged dietary sodium restriction/DASH diet - Recommended regular aerobic exercise. - Recommend home blood pressure monitoring, to bring results in on next visit - Discussed need and benefit for weight loss. - Recheck in 6 months, sooner should new symptoms or problems arise. - Goal of BP <130/80 - Patient counselled on smoking cessation. 2. Hyperlipidemia, mixed - ICD9: 272.2, ICD10: E78.2 - to be determined upon return of lab results - Continue current medication. - Encouraged following a low fat, low cholesterol diet. - Discussed the benefits of regular aerobic exercise and weight loss. - Encouraged following a low carbohydrate, healthy oil intake diet. - LIPID PANEL BASIC 3. Tobacco abuse - ICD9: 305.1, ICD10: Z72.0 - Cessation encouraged. - Physiologic and physical aspects of tobacco addiction as well as strategies for quitting were discussed. - Counseling was given focusing on the harmful effects of this addiction especially given the patient's medical condition(s) which will be worsened because of the chemicals in tobacco. - Counseling was given 3-4 minutes. 4. Frequent falls - ICD9: V15.88, ICD10: R29.6 - falls at home are mechanical and always involve the stairs which are wood without carpeting or consumer lender tape. Discussed adding consumer lender tape, wearingtennis shoes instead of flip flops or footies, and not carrying things up an down stairs. Does not feel she needs walker or cane. -FALLS RISK PLAN: The patient would benefit from a concentrated outpatient falls prevention program. Will evaluate and treat functional restrictions and develop a safe home exercise program. - CONSULT TO PHYSICAL THERAPY 5. Need for vaccination - ICD9: V05.9, ICD10: Z23 - INFLUENZA SEASONAL HIGH DOSE AGE 65+ Aminata Podlogar, LEGAL FILE CLERK.VOCATIONAL NURSING INSTRUCTOR Prescription instructions reviewed with patient as applicable. Patient advised if symptoms do not improve or if symptoms worsen sooner, to contact their primary care physician. Potential red flag symptoms discussed with the patient. Reviewed appropriate action plan to take if red flag symptoms occur. Patient agreeable to treatment plan. PROGRESS Observed: 12/08/2017 Status: COMPLETED Source: [place] 10:[address] [facility] [place] REPOSITORY [facility] ID: [id number] Author: Ivis Gerard (Kandis) KANDIS Muller Service: (none) Author Type: LICENSED NURSE Type: Progress Notes Filed: 12/09/2017 7:26 AM Note Text: 67 year old female here for INACTIVATED INFLUENZA VACCINE. 3159-3303 Season Patient is identified by name and date of : Yes [] CONTRAINDICATIONS color enhanced section Age less than 6 months? No Allergy to eggs, chicken, chicken feathers, or chicken dander? No Allergy to thimerosal (a preservative) or formaldehyde, gelatin? No History of severe reaction to any vaccine component or a previous dose of influenza vaccination? No History of Guillain-Simpson Syndrome within 6 weeks after a previous influenza vaccine? No Patient is not moderately or severely ill? No Current temperature greater or equal to 100.4F? No History of Bone Marrow Transplant prior 6 months or solid organ transplant in the past 3 months ? No History of fainting after a prior injection or medical procedure? No- ? If patient has fainted in the past, the CDC recommends sitting or lying down for 15 minutes after the vaccination. [] VERIFICATION color enhanced section Was the answer Yes for any of the above contraindications? No contraindications present. Acceptable to proceed with vaccine. Patient/guardian agrees the above answers are true to the best of their knowledge? Yes Flu vaccine information sheet given? Yes See immunization activity in [facility] for details of immunizations adminstered today. Patient age: [age] year old For The 7882-8417 Flu Season 6-35 months old: Fluzone 0.25 ml - IM (Preservative Free) 3 years of age: Fluzone 0.5 ml - IM (Preservative Free) 3 years and older: Fluzone 0.5 ml- IM-(with Preservatives) 65+ years old: 2-49 years old Fluzone High-Dose 0.5 ml - IM (Preservative Free) FLUMIST- intranasal REMEMBER: If patient is less than 9 years of age and this is the first vaccine of Influenza to be received in any flu season, they should receive a second dose in one months time. CNOV Observed: 12/08/2017 Status: COMPLETED Source: [place] 10:20 AM [facility] REPOSITORY Office Visit (FAMPWS) KATHY PURI ([id number]) 1950 F Date Time Provider Department 12/08/17 10:20 AM AMINATA BARRERA (VOCATIONAL NURSING INSTRUCTOR) FAMPWS During your visit today, we recorded the following information about you: Pulse Respiration Blood pressure Weight 58/minute 16/minute 110/56 76.7 kg Ivis Muller LPN, KANDIS 12/09/2017 7:26 AM Signed 67 year old female here for INACTIVATED INFLUENZA VACCINE. 6924-5688 Season Patient is identified by name and date of : Yes [] CONTRAINDICATIONS color enhanced section Age less than 6 months? No Allergy to eggs, chicken, chicken feathers, or chicken dander? No Allergy to thimerosal (a preservative) or formaldehyde, gelatin? No History of severe reaction to any vaccine component or a previous dose of influenza vaccination? No History of Guillain-Simpson Syndrome within 6 weeks after a previous influenza vaccine? No Patient is not moderately or severely ill? No Current temperature greater or equal to 100.4F? No History of Bone Marrow Transplant prior 6 months or solid organ transplant in the past 3 months ? No History of fainting after a prior injection or medical procedure? No- ? If patient has fainted in the past, the CDC recommends sitting or lying down for 15 minutes after the vaccination. [] VERIFICATION color enhanced section Was the answer Yes for any of the above contraindications? No contraindications present. Acceptable to proceed with vaccine. Patient/guardian agrees the above answers are true to the best of their knowledge? Yes Flu vaccine information sheet given? Yes See immunization activity in [facility] for details of immunizations adminstered today. Patient age: [age] year old For The 0052-3137 Flu Season 6-35 months old: Fluzone 0.25 ml - IM (Preservative Free) 3 years of age: Fluzone 0.5 ml - IM (Preservative Free) 3 years and older: Fluzone 0.5 ml- IM-(with Preservatives) 65+ years old: 2-49 years old Fluzone High-Dose 0.5 ml - IM (Preservative Free) FLUMIST- intranasal REMEMBER: If patient is less than 9 years of age and this is the first vaccine of Influenza to be received in any flu season, they should receive a second dose in one months time. Aminata Barrera, MAY.VOCATIONAL NURSING INSTRUCTOR 12/09/2017 7:26 AM Signed 12/08/2017 Patient presents with: Recheck: 3 month Imm/Inj: Flu Vaccine SUBJECTIVE: This is a 67 year old that is here today for Above Complaints. GERD: taking zantac 150 mg twice daily- sometimes will go a couple weeks and it will be ok then has a couple days will act up- will take TUMS and use milk which will help. Does not eat after 7PM. Has not elevated HOB as recommend. Reports she has tried decreasing foods that cause it but reports it does not seem to help. HTN: Patient is compliant with meds Yes Monitors bp at home: Yes. Getting similar to what we got today 11's over 60's Denies side effects: Yes. Chest pain: No. Dyspnea: No. Edema: No. Palpitations: No. Syncope: No. Headache: No. Dizziness: No. HYPERLIPIDEMIA: Patient is taking medications: Yes. Patient is watching diet: Yes. Patient denies myalgias: No. Patient denies gi upset: No Smoking: Smoking anywhere from 1-3 a day. Setting quit day for her birthday 2019. Fell last Thrusday while going up steps- had stuff in hands- reports fell forward onto carpet at stop of steps and fell on right hip. Denies pain or bruising today. Reports it tends to happen when she doesn't have her shoes on and is wearing footies or flip-flops. Has hand railings on stairs PAST MEDICAL HISTORY Diagnosis Date - Atrial fibrillation ([facility]) 07/16/2011 - CAD (coronary artery disease) seeing Dr. Treviño - Chronic lower back pain - DDD (degenerative disc disease), lumbar - Depression - GERD (gastroesophageal reflux disease) - H/O heart artery stent 7 Stents, last 2006 - Hypertension - IBS (irritable bowel syndrome) - Myocardial infarction ([facility]) x2 - Obesity - Ovarian cancer ([facility]) 09/13/[address] Blank - PAD (peripheral artery disease) ([facility]) Dr. Sathish Gar - Restless leg syndrome 07/16/2011 - Sleep apnea on Bipap - Tobacco use - Vulvovaginitis 07/16/2011 ALLERGIES Patient has no known allergies. MEDICATIONS Current Outpatient Prescriptions: dicyclomine (BENTYL) 10 mg capsule take 1 capsule before meals and at bedtime atorvastatin (LIPITOR) 40 mg tablet Take 1 tablet by mouth once daily. ranitidine (ZANTAC) 150 mg tablet Take 1 tablet by mouth twice daily. amitriptyline (ELAVIL) 25 mg tablet TAKE 3 TABLETS DAILY AT BEDTIME Cholecalciferol, Vitamin D3, (VITAMIN D) 1,000 unit cap Take 1,000 Units by mouth once daily. isosorbide mononitrate ER (IMDUR) 60 mg 24 hr tablet Take 1 tablet by mouth once daily. metoprolol tartrate, short acting, (LOPRESSOR) 100 mg tablet Take 1 tablet by mouth twice daily. citalopram (CELEXA) 40 mg tablet TAKE 1 TABLET EVERY DAY ascorbic acid, vitamin C, (VITAMIN C) 500 mg tablet Take 500 mg by mouth once daily. ADVAIR DISKUS 500-50 mcg/dose dsdv Inhale 1 Puff as instructed once daily. ALBUTEROL SULFATE (VENTOLIN HFA INHALATION) Inhale 1 Puff as instructed as needed. amLODIPine (NORVASC) 10 mg tablet Take 1 tablet by mouth once daily. pramipexole (MIRAPEX) 1 mg tablet Take 1 tablet by mouth daily at bedtime. clopidogrel (PLAVIX) 75 mg tablet Take 1 tablet by mouth once daily. amiodarone (PACERONE) 200 mg tablet Take 1 tablet by mouth once daily. Multivitamin capsule Take 1 capsule by mouth once daily. VITAMIN E, BULK, MISC diphenoxylate-atropine sulfate (LOMOTIL) 2.5-0.025 mg/5 mL liquid Take 5 mL by mouth four times daily as needed. rivaroxaban (XARELTO) 20 mg tablet Take 20 mg by mouth daily with dinner. MELATONIN ORAL Take by mouth once daily. lidocaine (LIDODERM) 5 %(700 mg/patch) Apply 1 Patch as directed every 12 hours. nitroglycerin sublingual (NITROSTAT) 0.4 mg SL tablet Dissolve 1 tablet under the tongue as needed. FOR CHEST PAIN. IF NO RELIEF CALL 911 lisinopril (ZESTRIL, PRINIVIL) 40 mg tablet Take 1 tablet by mouth once daily. acetaminophen (TYLENOL EXTRA STRENGTH) 500 mg tablet Take 500 mg by mouth every 6 hours as needed. No current facility-administered medications for this visit. Medications and allergies reviewed by this provider. SOCIAL HISTORY Social History Marital status: Spouse name: Years of education: Number of children: 3 Occupational History Occupation Employer Comment Retired Social History Main Topics Smoking status: Former Smoker Packs/day: 0.00 Years: 47.00 Types: Cigarettes Quit date: 04/24/2017 Smokeless tobacco: Never Used Comment: <5 per day Alcohol use: No Drug use: No Sexual activity: No Comment: Postmenopausal REVIEW OF SYSTEMS GENERAL: No weight loss, malaise or fevers RESPIRATORY: Negative for cough, hemoptysis, wheezing, COPD, dyspnea or shortness of breath CARDIOVASCULAR: Negative for chest pain, leg swelling, hypertension, CHF or palpitations GI: No nausea, vomiting, or diarrhea MUSCULOSKELETAL: See HPI SKIN: See HPI All other reviewed and negative other than HPI. OBJECTIVE: BP 110/56 (BP Site: Left Arm, BP Position: Sitting, BP Cuff Size: Regular Adult) Pulse (!) 58 Resp 16 Wt 76.7 kg (169 lb) BMI 32.32 kg/m? . Vital signs reviewed by this provider. APPEARANCE Well appearing, alert, in no acute distress, well- hydrated, well nourished. HEART RRR with normal S1 and S2, no murmurs, no gallops, no JVD appreciated LUNG clear to auscultation ABDOMEN bowel sounds normoactive, no bruits, soft, non-tender, non-distended EXTREMITIES Extremities normal, No deformities, No skin discoloration, No edema and Normal pulses bilaterally. SKIN Skin color, texture, turgor normal, no suspicious rashes or lesions HIPS: Location: bilateral Redness: Warmth Range of Motion: WNL Tenderness: none Pain with movement: None LDL CHOLESTEROL due on 04/22/2016 INFLUENZA(1) due on 11/15/2017 STATIN MED ADHERENCE due on 12/15/2017 MAMMOGRAM due on 03/13/2018 COLORECTAL CANCER SCREENING,SEE MODIFIER due on 06/16/2018 ANNUAL PCP TEAM CHRONIC DISEASE VISIT due on 11/21/2018 BP CONTROLLED (<130/80) due on 12/08/2018 LIPID SCREEN due on 04/22/2020 DIABETES SCREEN due on 09/05/2020 DTAP,TDAP,TD(2 - Td) due on 12/09/2027 BONE DENSITY Completed ADULT PREVNAR-13 Completed HEPATITIS C SCREENING Completed PNEUMOVAX AGE 65 AND OVER WITH 5YR LOOKBACK Completed ASSESSMENT/PLAN: 1. Essential hypertension - ICD9: 401.9, ICD10: I10 (primary diagnosis) - good control - Continue current medication(s) - Encouraged dietary sodium restriction/DASH diet - Recommended regular aerobic exercise. - Recommend home blood pressure monitoring, to bring results in on next visit - Discussed need and benefit for weight loss. - Recheck in 6 months, sooner should new symptoms or problems arise. - Goal of BP <130/80 - Patient counselled on smoking cessation. 2. Hyperlipidemia, mixed - ICD9: 272.2, ICD10: E78.2 - to be determined upon return of lab results - Continue current medication. - Encouraged following a low fat, low cholesterol diet. - Discussed the benefits of regular aerobic exercise and weight loss. - Encouraged following a low carbohydrate, healthy oil intake diet. - LIPID PANEL BASIC 3. Tobacco abuse - ICD9: 305.1, ICD10: Z72.0 - Cessation encouraged. - Physiologic and physical aspects of tobacco addiction as well as strategies for quitting were discussed. - Counseling was given focusing on the harmful effects of this addiction especially given the patient's medical condition(s) which will be worsened because of the chemicals in tobacco. - Counseling was given 3-4 minutes. 4. Frequent falls - ICD9: V15.88, ICD10: R29.6 - falls at home are mechanical and always involve the stairs which are wood without carpeting or consumer lender tape. Discussed adding consumer lender tape, wearingtennis shoes instead of flip flops or footies, and not carrying things up an down stairs. Does not feel she needs walker or cane. -FALLS RISK PLAN: The patient would benefit from a concentrated outpatient falls prevention program. Will evaluate and treat functional restrictions and develop a safe home exercise program. - CONSULT TO PHYSICAL THERAPY 5. Need for vaccination - ICD9: V05.9, ICD10: Z23 - INFLUENZA SEASONAL HIGH DOSE AGE 65+ Aminata Podlogar, LEGAL FILE CLERK.VOCATIONAL NURSING INSTRUCTOR Prescription instructions reviewed with patient as applicable. Patient advised if symptoms do not improve or if symptoms worsen sooner, to contact their primary care physician. Potential red flag symptoms discussed with the patient. Reviewed appropriate action plan to take if red flag symptoms occur. Patient agreeable to treatment plan. Aminata Barrera, MERLIN 12/08/2017 12:32 PM Addendum ADVICE FOR PATIENTS WITH REFLUX (LPR = LARYNGOPHARNGEAL REFLUX) 1. Elevate headboard of your bed about 8 inches. use bed blocks so as to create an incline to sleep on. Be sure the bed is secure. Pillows do not work well. Bed blocks can be purchased at a medical supply store or made with bricks, concrete blocks or boards. 2. Moderate or avoid cigarettes, fatty foods, alcohoL, chocolate, coffee,citrus juices and tomato products. 3. Avoid Valium, sleeping pills and aspirin. 4. Avoid late evening meals. Never eat within 2 hours of bedtime. 5. If you are overweight, try vigorously to trim down. 6. Antacids should be taken in full dose immediately after meals and at bedtime. Liquid antacids are more effective than tablets. 7. Over the counter medications for decreasing acid production are available and may be effective. They are advertised as Axid AR, Pepcid AC, Tagamet HB and Zantac 75. Follow directions carefully if you try them. 8. If more vigorous management is required with prescription medications or even surgery, we prefer to have this discussed with and managed by your vp customer development or family physician. 9. If taking medication TWICE A DAY it is best taken on an empty stomach as follows: Dose 1: Upon awakening (don't eat for about 30 minutes) Dose 2: 30-60 minutes before dinner (if you forget, or cannot time that dose, take it before bed.) 10. If taking medication ONCE A DAY, it can be taken as Dose 1 or Dose 2 as listed above. WHAT YOU CAN DO TO PREVENT FALLS Many falls can be prevented. By making some changes, you can lower your chances of falling. Four things YOU can do to prevent falls for you* and your caregiver 1. Begin a regular exercise program Exercise is one of the most important ways to lower your chances of falling. It makes you stronger and helps you feel better. Exercises that improve balance and coordination (like Lasha Chi) are the most helpful. Lack of exercise leads to weakness and increases your chances of falling. Ask your doctor or health care provider about the best type of exercise program for you. 2. Have your health care provider review your medicines Have your doctor or pharmacist review all the medicines you take, even boxp-lgs-jldxruv medicines. As you get older, the way medicines work in your body can change. Some medicines, or combinations of medicines, can make you sleepy or dizzy and can cause you to fall. 3. Have your vision checked Have your eyes checked by an eye doctor at least once a year. You may be wearing the wrong glasses or have a condition like glaucoma or cataracts that limits your vision. Poor vision can increase your chances of falling. 4. Make your home safer About half of all falls happen at home. To make your home safer: ? Remove things you can trip over (like papers, books, clothes, and shoes) from stairs and places where you walk. ? Remove small throw rugs or use double-sided tape to keep the rugs from slipping. ? Keep items you use often in cabinets you can reach easily without using a step stool. ? Have grab bars put in next to your toilet and in the tub or shower. ? Use non-slip mats in the bathtub and on shower floors. ? Improve the lighting in your home. ? As you get older, you need brighter lights to see well. ? Hang light-weight curtains or shades to reduce glare. ? Have handrails and lights put in on all staircases. ? Wear shoes both inside and outside the house. ? Avoid going barefoot or wearing slippers. For more information, contact: Centers for Disease Control and Prevention 090-540-8550 www.cdc.gov/injury * This information may not apply if you have certain medical conditions. Referring Provider: CATHI HAYES) [[id number]] Allergies As of Date: 12/08/2017 (No Known Allergies) Date Reviewed: 12/08/2017 Reviewed by: Ivis Gerard (Kandis) KANDIS Muller - Fully Assessed Reason for Visit: Recheck [92] Cmt: 3 month Imm/Inj [58] Cmt: Flu Vaccine Reason For Visit History Recorded Primary Visit Diagnosis:Essential hypertension [I10] Other Visit Diagnoses:Hyperlipidemia, mixed [E78.2] Tobacco abuse [Z72.0] Frequent falls [R29.6] Need for vaccination [Z23] Order(s):INFLUENZA SEASONAL HIGH DOSE AGE 65+ [80213XMP] Order #: [id number] LIPID PANEL BASIC [SQLIPB] Order #: [id number] FUTURE CONSULT TO PHYSICAL THERAPY [9032] Order #: [id number]: 1 FALLS RISK EDUCATION [2802437] Order #: [id number]: 1 Prescriptions as of 12/08/2017 Sig: DICYCLOMINE 10 MG CAPSULE take 1 capsule before meals a* ATORVASTATIN 40 MG TABLET Take 1 tablet by mouth once d* RANITIDINE 150 MG TABLET Take 1 tablet by mouth twice * AMITRIPTYLINE 25 MG TABLET TAKE 3 TABLETS DAILY AT BEDTI* CHOLECALCIFEROL (VITAMIN D3) * Take 1,000 Units by mouth onc* ISOSORBIDE MONONITRATE ER 60 * Take 1 tablet by mouth once d* METOPROLOL TARTRATE 100 MG TA* Take 1 tablet by mouth twice * CITALOPRAM 40 MG TABLET TAKE 1 TABLET EVERY DAY ASCORBIC ACID (VITAMIN C) 500* Take 500 mg by mouth once elliott* ADVAIR DISKUS 500 MCG-50 MCG/* Inhale 1 Puff as instructed o* VENTOLIN HFA INHALATION Inhale 1 Puff as instructed a* AMLODIPINE 10 MG TABLET Take 1 tablet by mouth once d* PRAMIPEXOLE 1 MG TABLET Take 1 tablet by mouth daily * CLOPIDOGREL 75 MG TABLET Take 1 tablet by mouth once d* AMIODARONE 200 MG TABLET Take 1 tablet by mouth once d* MULTIVITAMIN CAPSULE Take 1 capsule by mouth once * VITAMIN E (BULK) MISC DIPHENOXYLATE-ATROPINE 2.5 MG* Take 5 mL by mouth four times* RIVAROXABAN 20 MG TABLET Take 20 mg by mouth daily wit* MELATONIN ORAL Take by mouth once daily. LIDOCAINE 5 % TOPICAL PATCH Apply 1 Patch as directed orly* NITROGLYCERIN 0.4 MG SUBLINGU* Dissolve 1 tablet under the t* LISINOPRIL 40 MG TABLET Take 1 tablet by mouth once d* ACETAMINOPHEN 500 MG TABLET Take 500 mg by mouth every 6 * Problem List As Of Date 12/08/2017 Noted Resolved Vulvovaginitis [N76.0] INVALID FOR*01/13/2014 Atrial fibrillation [I48.91] INVALID FOR* Restless leg syndrome [G25.81] INVALID FOR* Hypertension [I10] Heart disease [I51.9] 01/29/2017 More... Pelvic mass in female [R19.00] INVALID FOR*05/07/2013 PAD (peripheral artery disease) [I73.9] INVALID FOR* History of myocardial infarction [I25.2] INVALID FOR* Ovarian cancer [C56.9] INVALID FOR*05/07/2013 Cellulitis, abdominal wall [L03.311] INVALID FOR*01/29/2017 Personal history of malignant neoplasm of ovary*INVALID FOR* Chronic pain [G89.29] INVALID FOR* Lumbar radiculopathy [M54.16] INVALID FOR* DDD (degenerative disc disease), lumbar [M51.36]INVALID FOR* Myofascial pain [M79.1] INVALID FOR* Pelvic pain INVALID FOR*01/02/2016 Urinary frequency [R35.0] INVALID FOR* Hematuria, microscopic [R31.29] INVALID FOR* Nocturia [R35.1] INVALID FOR* S/P coronary artery stent placement [Z95.5] INVALID FOR* Tobacco abuse [Z72.0] INVALID FOR* Family history of ischemic heart disease [Z82.4*INVALID FOR* Dyslipidemia [E78.5] INVALID FOR* Shortness of breath [R06.02] INVALID FOR* Pain of left lower extremity [M79.605] INVALID FOR* CAD (coronary artery disease) [I25.10] GERD (gastroesophageal reflux disease) [K21.9] Other instructions from your clinician: ADVICE FOR PATIENTS WITH REFLUX (LPR = LARYNGOPHARNGEAL REFLUX) 1. Elevate headboard of your bed about 8 inches. use bed blocks so as to create an incline to sleep on. Be sure the bed is secure. Pillows do not work well. Bed blocks can be purchased at a medical supply store or made with bricks, concrete blocks or boards. 2. Moderate or avoid cigarettes, fatty foods, alcohoL, chocolate, coffee,citrus juices and tomato products. 3. Avoid Valium, sleeping pills and aspirin. 4. Avoid late evening meals. Never eat within 2 hours of bedtime. 5. If you are overweight, try vigorously to trim down. 6. Antacids should be taken in full dose immediately after meals and at bedtime. Liquid antacids are more effective than tablets. 7. Over the counter medications for decreasing acid production are available and may be effective. They are advertised as Axid AR, Pepcid AC, Tagamet HB and Zantac 75. Follow directions carefully if you try them. 8. If more vigorous management is required with prescription medications or even surgery, we prefer to have this discussed with and managed by your vp customer development or family physician. 9. If taking medication TWICE A DAY it is best taken on an empty stomach as follows: Dose 1: Upon awakening (don't eat for about 30 minutes) Dose 2: 30-60 minutes before dinner (if you forget, or cannot time that dose, take it before bed.) 10. If taking medication ONCE A DAY, it can be taken as Dose 1 or Dose 2 as listed above. WHAT YOU CAN DO TO PREVENT FALLS Many falls can be prevented. By making some changes, you can lower your chances of falling. Four things YOU can do to prevent falls for you* and your caregiver 1. Begin a regular exercise program Exercise is one of the most important ways to lower your chances of falling. It makes you stronger and helps you feel better. Exercises that improve balance and coordination (like Lasha Chi) are the most helpful. Lack of exercise leads to weakness and increases your chances of falling. Ask your doctor or health care provider about the best type of exercise program for you. 2. Have your health care provider review your medicines Have your doctor or pharmacist review all the medicines you take, even uxvz-qgq-vdkbedm medicines. As you get older, the way medicines work in your body can change. Some medicines, or combinations of medicines, can make you sleepy or dizzy and can cause you to fall. 3. Have your vision checked Have your eyes checked by an eye doctor at least once a year. You may be wearing the wrong glasses or have a condition like glaucoma or cataracts that limits your vision. Poor vision can increase your chances of falling. 4. Make your home safer About half of all falls happen at home. To make your home safer: ? Remove things you can trip over (like papers, books, clothes, and shoes) from stairs and places where you walk. ? Remove small throw rugs or use double-sided tape to keep the rugs from slipping. ? Keep items you use often in cabinets you can reach easily without using a step stool. ? Have grab bars put in next to your toilet and in the tub or shower. ? Use non-slip mats in the bathtub and on shower floors. ? Improve the lighting in your home. ? As you get older, you need brighter lights to see well. ? Hang light-weight curtains or shades to reduce glare. ? Have handrails and lights put in on all staircases. ? Wear shoes both inside and outside the house. ? Avoid going barefoot or wearing slippers. For more information, contact: Centers for Disease Control and Prevention [phone] www.cdc.gov/injury * This information may not apply if you have certain medical conditions. Follow-up and Disposition History Recorded Encounter Status:Closed by AMINATA BARRERA CNP on 12/09/17 CARDIOLOGY VISIT Observed: 11/27/2017 Status: F Source: [facility] 10:37 AM [facility] REPOSITORY [facility] [address] [place] [address] OFFICE VISIT Date of Service: 11/25/17 MR#: [id number] Acct: [id number] Name: KATHY PURI Rep #: [id number] : 1950 Provider: Evelyn Collier Age/Sex: 67/F Location: [facility] [place] Status: Signed HPI HPI Details: KATHY PURI, is a 67 F who presents to the office today for a cardiovascular follow-up. She has a history of paroxysmal atrial fibrillation, coronary artery disease with angioplasty and stenting of her RCA and angioplasty of her first obtuse marginal and hyperlipidemia. She also has a history of peripheral arterial disease and does see Dr. Gar for this. Pt was supposed to have a stress test done in August, this was not done. Pt sts that she had one episodes of chest pain while doing laundry, this lasted 10-15 seconds. She has not needed to use any NTG. Her exercise tolerance is stable, she joined the [facility]. She does not have any worsening SOB. She does not have any orthopnea. She does not have any lightheadedness/dizziness. She does not have any syncope. She does occasionally have palpitations- this occurs a few times a day, this does not last long. She does not have any edema. Intake Vital Signs11/25/17 Height 5 ft 2 in 11/25/17 Weight: 166 lb 11/25/17 Body Mass Index (BMI) 30.3 11/25/17 Blood Pressure 142/64 11/25/17 Blood Pressure Location Lt brachial Intake Visit Reasons: 5 M Technical Sales Representatives Required: No Accompanied by: Grandson Is patient in pain?: No Allergies No Known Allergies Allergy (Verified 11/25/17 11:12) Medications Amitriptyline HCl [Elavil] 75 mg PO QHS 11/25/13 [History Confirmed 11/25/17] Citalopram [Celexa] 40 mg PO DAILY 11/25/13 [History Confirmed 11/25/17] Multivitamins,Therapeutic [Multivitamin] 1 tab PO DAILY 11/25/13 [History Confirmed 11/25/17] Pramipexole Di-HCl [Mirapex] 1 mg PO QHS 11/25/13 [History Confirmed 11/25/17] Albuterol Inhaler [Ventolin Hfa] 1 - 2 puff INHALATION Q4H PRN PRN #1 inhaler 10/02/16 [Rx Confirmed 11/25/17] Dicyclomine HCl 10 mg PO 4X/DAY 04/25/17 [History Confirmed 11/25/17] Melatonin 3 mg PO QHS PRN 04/25/17 [History Confirmed 11/25/17] amlodipine 10 mg tablet 10 mg PO DAILY #90 tab 05/20/17 [Rx Confirmed 11/25/17] atorvastatin 40 mg tablet 40 mg PO QDAY 05/20/17 [History Confirmed 11/25/17] lisinopril 40 mg tablet 40 mg PO BID #180 tab 05/20/17 [Rx Confirmed 11/25/17] nitroglycerin 0.4 mg sublingual tablet 0.4 mg SUBLINGUAL Q5M PRN #25 tab 05/20/17 [Rx Confirmed 11/25/17] fluticasone 500 mcg-salmeterol 50 mcg/dose blistr powdr for inhalation 1 inh INHALATION Q12H #60 ea 06/04/17 [Rx Confirmed 11/25/17] metoprolol tartrate 50 mg tablet 50 mg PO BID #180 tab 07/29/17 [Rx Confirmed 11/25/17] amiodarone 200 mg tablet 200 mg PO DAILY #90 tab 08/12/17 [Rx Confirmed 11/25/17] isosorbide mononitrate ER 60 mg tablet,extended release 24 hr 60 mg PO BID #180 tab 08/12/17 [Rx Confirmed 11/25/17] ranitidine 150 mg tablet PO 90 Days #180 08/12/17 [History Confirmed 11/25/17] rivaroxaban 20 mg tablet 20 mg PO DAILY #90 tab 08/12/17 [Rx Confirmed 11/25/17] vitamin E (dl, acetate) 400 unit capsule 400 unit PO QDAY 08/12/17 [History Confirmed 11/25/17] clopidogrel 75 mg tablet 75 mg PO DAILY #90 tab 11/25/17 [Rx Confirmed 11/25/17] Ejection fraction %: 60 to 64 PFSH Medical History Nicotine abuse (Chronic) Atherosclerotic peripheral vascular disease (Chronic) Atherosclerotic heart disease of [place] coronary artery without angina pectoris (Chronic) Encounter for long-term (current) use of other medications (Chronic) Body mass index 32.0-32.9, adult (Chronic) Family history of hypertension (Chronic) Tobacco abuse (Chronic) Dyspnea on exertion (Chronic) Wheezing (Chronic) Obesity (Chronic) Paroxysmal atrial fibrillation (Chronic) Tobacco user (Chronic) Atrial fibrillation with RVR (Chronic) Hypokalemia (Resolved) HTN (hypertension) (Chronic) IBS (irritable bowel syndrome) (Chronic) Non-STEMI (non-ST elevated myocardial infarction) (Chronic) HLD (hyperlipidemia) (Chronic) Anxiety and depression (Chronic) Angina pectoris (Resolved) CAD (coronary artery disease) (Chronic) PAD (peripheral artery disease) (Chronic) Surgical History History of left heart catheterization (Chronic) Stented coronary artery (Chronic) History of coronary angioplasty (Resolved) History of bilateral leg stents (Resolved) History of bunionectomy of right great toe (Resolved) History of hysterectomy (Resolved) History of tonsillectomy (Resolved) Status post left foot surgery (Resolved) Family History Father Heart disease Hypertension Seizures Sister CVA (cerebral vascular accident) Hypertension Other Family history of hypertension Social History Smoking Status: Light Smoker (<10/day) second hand exposure: No alcohol intake: never substance use type: does not use caffeine: No what type of physical activity do you participate in: none ROS Const Const: Negative for weakness, fatigue, fever(s) or headache(s) Eyes Eyes: Negative for blind spots, loss of peripheral vision or transient loss of vision ENT ENT: Negative for headache(s), dizziness, tinnitus or Nosebleed/epistaxis Cardio Chest Pain: Yes Edema: None Muscle aches with walking: None Resp Respiratory: Positive for SOB with activity; negative for SOB at rest, SOB orthopnea\SOB lying down or Cough GI GI: Negative nausea, vomiting, heartburn or vomiting blood/hematemesis : Negative for hematuria Musc Musc: Negative for muscle aches/ myalgia Neuro Neuro: Negative for weakness, headache(s), dizziness, near syncope, syncope, lightheadedness or orthostatic symptoms Igor Hematologic/Lymphatic: Negative for easy bleeding Endo Endo: Negative for fatigue Cardiology Exam Const Appearance: cooperative, healthy appearing, well developed, well groomed and no acute distress Nutritional Appearance: well nourished and average body habitus Orientation: alert, awake and oriented x3 Head Head: normal to inspection, normocephalic and atraumatic Ears: hearing grossly normal bilaterally and external ears normal Nose: external nose normal, nasal mucous membranes and turbinates normal, nares normal, septum normal, no nasal discharge Face and Sinus: face symmetric Mouth: oral mucosae normal, tongue normal, oropharynx normal and moist mucous membranes Teeth and gingiva: dentition normal Throat: posterior oropharynx normal, tonsils normal and uvula midline Eyes General: appearance normal, both eyes and all related structures Eyelids: eyelids normal Conjunctivae: conjunctivae normal Pupils: PERRL, normal by confrontation and accommodation normal EOM: EOM intact bilaterally Neck Neck: normal visual inspection, trachea midline and no JVD JVD: +5 Carotids: normal carotid upstroke and bounding pulses Chest Chest inspection: normal inspection of the chest, symmetric chest movement and normal respiratory effort Auscultation: Bilateral: Clear to Auscultation Cardio Palpation: normal PMI Rate: regular rate Rhythm: regular rhythm Heart sounds: S1 normal, S2 normal and normal, physiologic split S2; negative rub, gallop or murmur GI GI: normal to inspection, soft, no hepatosplenomegaly and bowel sounds present Neuro General: alert, awake, oriented x3, no focal sensory deficit, gait normal and moves all extremities Skin Skin: no rashes or lesions noted Extremities Pulses: Normal: Right Femoral Pulse, Left Femoral Pulse, Right Dorsalis Pedis Pulse, Left Dorsalis Pedis Pulse, Right Posterior Tibial Pulse, Left Posterior Tibial Pulse, Right Radial Pulse, Left Radial Pulse Lower Extremity Edema: None: Bilateral Musculoskel Musculoskeletal: No joint tenderness Psych Psychological: normal affect Supplemental Info Echocardiogram in 2017 demonstrated ejection fraction 60%. Mild to moderate concentric LVH. Left atrium is mildly enlarged. Mild to moderate mitral calcification. Mild to moderate mitral insufficiency. Mild tricuspid insufficiency. Trivial aortic and pulmonic insufficiency. Assessment AND Plan 1. Atherosclerosis of [place] coronary artery of [place] heart without angina pectoris I25.10 PTCA with CARMEN to distal CX and OM 03/20/99; PTCA and CARMEN of distal RCA and PTCA of ostium of posterolateral branch for stent jailing; PTCA and CARMEN to RCA including PDA descending branch with multiple complex CARMEN 02/20; PTCA and CARMEN to RCA in-stent restenosis @ [facility] 04/21/2015 Plan - GABRIELLA Mancuso Patient has not needed to use any additional nitroglycerin since her emergency room stay. She was advised that if she has any worsening symptoms of chest discomfort or continued use of nitroglycerin that she should give our office a call and we will obtain a stress test at that time. She did have a stress test last year which was negative for ischemia. Orders Orders: 2. Essential hypertension I10 Plan - GABRIELLA Mancuso Blood pressure is well controlled on current medications, we do not recommend any changes at this time. 3. Pure hypercholesterolemia E78.00; E78.0 Plan - GABRIELLA Mancuso Patient is due to have her lipids checked in the near future. Will adjust medications accordingly. 4. Atrial fibrillation with RVR I48.91 Paroxsymal Plan - GABRIELLA Mancuso Patient has maintained sinus rhythm. She is on amiodarone. Will continue to monitor hepatic and thyroid panels routinely. She will also remain on a factor Xa inhibitor. 5. PAD (peripheral artery disease) I73.9 Plan - GABRIELLA Mancuso Patient does follow with Dr. Hurley for this. Plan Detail Other Orders Orders: Other Medications New: Refilled: Additional Comments - GABRIELLA Mancuso Discussed with Dr. Treviño, he agrees with plan of care. Thank you for allowing us to participate in patient's plan of care, if you have any questions please do not hesitate to call. This note was generated using a voice recognition system and there may be incorrect words, spelling or punctuation errors that were not noted when reviewing the office note prior to saving. Follow Up 6 Months (6-9 months RANGE AIDE) Coding Level of Care Code Off vis,est,level 3 Diagnoses Atherosclerosis of [place] coronary artery of [place] heart without angina pectoris I25.10 [place] vs. transplanted heart: [place] heart Essential hypertension I10 Hypertension type: essential hypertension Pure hypercholesterolemia E78.00; E78.0 Hyperlipidemia type: pure hypercholesterolemia Atrial fibrillation with RVR I48.91 PAD (peripheral artery disease) I73.9 Coding Level of Care Code Off vis,est,level 3 Diagnoses Atherosclerosis of [place] coronary artery of [place] heart without angina pectoris I25.10 [place] vs. transplanted heart: [place] heart Essential hypertension I10 Hypertension type: essential hypertension Pure hypercholesterolemia E78.00; E78.0 Hyperlipidemia type: pure hypercholesterolemia Atrial fibrillation with RVR I48.91 PAD (peripheral artery disease) I73.9 11/25/17 1153 <Electronically signed by Evelyn QUIROZ> Date Evelyn QUIROZ 11/27/17 1037<Electronically signed by Jaime Treviño MD> Cosigner Signature: Date (if applicable) Jaime Treviño MD CC: Feng Hayes [facility] Observed: 11/25/2017 Status: COMPLETED Source: [place] 12:00 AM [facility] REPOSITORY Patient Outreach (INTMWH) KATHY PURI ([id number]) 1950 F Date Time Provider Department 11/25/17 CATHI HAYES) [facility] During your visit today, we recorded the following information about you: Allergies As of Date: 11/25/2017 (No Known Allergies) Date Reviewed: 11/21/2017 Reviewed by: Adriano Toscano Ma - Fully Assessed Visit Diagnosis:Medication management [Z79.899] Order(s):LIPID PANEL BASIC [SQLIPB] Order #: [id number] FUTURE Prescriptions as of 11/25/2017 Sig: ATORVASTATIN 40 MG TABLET Take 1 tablet by mouth once d* RANITIDINE 150 MG TABLET Take 1 tablet by mouth twice * AMITRIPTYLINE 25 MG TABLET TAKE 3 TABLETS DAILY AT BEDTI* CHOLECALCIFEROL (VITAMIN D3) * Take 1,000 Units by mouth onc* ISOSORBIDE MONONITRATE ER 60 * Take 1 tablet by mouth once d* METOPROLOL TARTRATE 100 MG TA* Take 1 tablet by mouth twice * X CITALOPRAM 40 MG TABLET TAKE 1 TABLET EVERY DAY ASCORBIC ACID (VITAMIN C) 500* Take 500 mg by mouth once elliott* ADVAIR DISKUS 500 MCG-50 MCG/* Inhale 1 Puff as instructed o* VENTOLIN HFA INHALATION Inhale 1 Puff as instructed a* AMLODIPINE 10 MG TABLET Take 1 tablet by mouth once d* PRAMIPEXOLE 1 MG TABLET Take 1 tablet by mouth daily * CLOPIDOGREL 75 MG TABLET Take 1 tablet by mouth once d* AMIODARONE 200 MG TABLET Take 1 tablet by mouth once d* X DICYCLOMINE 10 MG CAPSULE Take 1 capsule by mouth befor* MULTIVITAMIN CAPSULE Take 1 capsule by mouth once * VITAMIN E (BULK) MISC LISINOPRIL 40 MG TABLET Take 1 tablet by mouth once d* ACETAMINOPHEN 500 MG TABLET Take 500 mg by mouth every 6 * DIPHENOXYLATE-ATROPINE 2.5 MG* Take 5 mL by mouth four times* RIVAROXABAN 20 MG TABLET Take 20 mg by mouth daily wit* MELATONIN ORAL Take by mouth once daily. LIDOCAINE 5 % TOPICAL PATCH Apply 1 Patch as directed orly* NITROGLYCERIN 0.4 MG SUBLINGU* Dissolve 1 tablet under the t* Problem List As Of Date 11/25/2017 Noted Resolved Vulvovaginitis [N76.0] INVALID FOR*01/13/2014 Atrial fibrillation [I48.91] INVALID FOR* Restless leg syndrome [G25.81] INVALID FOR* Hypertension [I10] Heart disease [I51.9] 01/29/2017 More... Pelvic mass in female [R19.00] INVALID FOR*05/07/2013 PAD (peripheral artery disease) [I73.9] INVALID FOR* History of myocardial infarction [I25.2] INVALID FOR* Ovarian cancer [C56.9] INVALID FOR*05/07/2013 Cellulitis, abdominal wall [L03.311] INVALID FOR*01/29/2017 Personal history of malignant neoplasm of ovary*INVALID FOR* Chronic pain [G89.29] INVALID FOR* Lumbar radiculopathy [M54.16] INVALID FOR* DDD (degenerative disc disease), lumbar [M51.36]INVALID FOR* Myofascial pain [M79.18] INVALID FOR* Pelvic pain INVALID FOR*01/02/2016 Urinary frequency [R35.0] INVALID FOR* Hematuria, microscopic [R31.29] INVALID FOR* Nocturia [R35.1] INVALID FOR* S/P coronary artery stent placement [Z95.5] INVALID FOR* Tobacco abuse [Z72.0] INVALID FOR* Family history of ischemic heart disease [Z82.4*INVALID FOR* Dyslipidemia [E78.5] INVALID FOR* Shortness of breath [R06.02] INVALID FOR* Pain of left lower extremity [M79.605] INVALID FOR* CAD (coronary artery disease) [I25.10] GERD (gastroesophageal reflux disease) [K21.9] Encounter Status:Closed by SURY RANDHAWA on 12/26/17 JEFF Observed: 11/21/2017 Status: COMPLETED Source: [place] 10:40 AM [facility] REPOSITORY Office Visit (FAMPWS) KATHY PURI ([id number]) 1950 F Date Time Provider Department 11/21/17 10:40 AM CATHI HAYES) [facility] During your visit today, we recorded the following information about you: Pulse Respiration Blood pressure Weight 56/minute 12/minute 138/76 74.8 kg Cathi Hayes MD 11/21/2017 11:35 AM Signed Chief Complaint Patient presents with: issues with arms HPI Kathy Xie Jaxson is a 67 year old female who presents here today for Above Complaints.. Patient seen on 11/10 for same complaint, thinks petechial rash is worsening. Spreading up her right arm with some itching. Denies pain, bleeding, increased bruising. Reviewed recent CBC which showed normal platelets. Past medical history, appointments, medications, allergies reviewed. Previous Medical History PAST MEDICAL HISTORY Diagnosis Date - Atrial fibrillation ([facility]) 07/16/2011 - CAD (coronary artery disease) seeing Dr. Treviño - Chronic lower back pain - DDD (degenerative disc disease), lumbar - Depression - GERD (gastroesophageal reflux disease) - H/O heart artery stent 7 Stents, last 2006 - Hypertension - IBS (irritable bowel syndrome) - Myocardial infarction ([facility]) x2 - Obesity - Ovarian cancer ([facility]) 09/13/[address] Blank - PAD (peripheral artery disease) ([facility]) Dr. Sathish Gar - Restless leg syndrome 07/16/2011 - Sleep apnea on Bipap - Tobacco use - Vulvovaginitis 07/16/2011 Previous Surgical History PAST SURGICAL HISTORY Procedure Laterality Date - CATARACT EXTRACTION HX Bilateral 03/2017 - COLONOSCOP W/ OR W/O [facility] SPEC 06/16/13 Colonoscopy - EGD W/O OR W/BRUSH/WASH 06/16/13 EGD - REMOVE TONSILS/ADENOIDS,<12 Y/O - REVSC OPN/PRG FEM/POP W/ANGIOPLASTY UNI Right 01/05/15 - REVSC OPN/PRG FEM/POP W/ANGIOPLASTY UNI Left 02-15-15 - REVSC OPN/PRG FEM/POP W/ANGIOPLASTY UNI Left 09/23/2016 - REVSC OPN/PRQ FEM/POP W/STNT/ANGIOP VSL 11-26-13 - REVSC OPN/PRQ FEM/POP W/STNT/ANGIOP VS 01/07/14 - STENTS (SPECIFY) 1999 AND 2006 7 Stents - TOTAL ABD HYSTEREC+LTD NODES 2011 DIOMEDES BSO ovarian cancer Family History FAMILY HISTORY Problem Relation Age of Onset - Heart Father [place] - Stroke Maternal Grandfather - Hypertension Sister - Psychiatry Sister Patient Allergies ALLERGIES No Known Allergies Current Medications Current Outpatient Prescriptions on File Prior to Visit: atorvastatin (LIPITOR) 40 mg tablet Take 1 tablet by mouth once daily. ranitidine (ZANTAC) 150 mg tablet Take 1 tablet by mouth twice daily. amitriptyline (ELAVIL) 25 mg tablet TAKE 3 TABLETS DAILY AT BEDTIME Cholecalciferol, Vitamin D3, (VITAMIN D) 1,000 unit cap Take 1,000 Units by mouth once daily. isosorbide mononitrate ER (IMDUR) 60 mg 24 hr tablet Take 1 tablet by mouth once daily. metoprolol tartrate, short acting, (LOPRESSOR) 100 mg tablet Take 1 tablet by mouth twice daily. citalopram (CELEXA) 40 mg tablet TAKE 1 TABLET EVERY DAY ascorbic acid, vitamin C, (VITAMIN C) 500 mg tablet Take 500 mg by mouth once daily. ADVAIR DISKUS 500-50 mcg/dose dsdv Inhale 1 Puff as instructed once daily. ALBUTEROL SULFATE (VENTOLIN HFA INHALATION) Inhale 1 Puff as instructed as needed. amLODIPine (NORVASC) 10 mg tablet Take 1 tablet by mouth once daily. dicyclomine (BENTYL) 10 mg capsule Take 1 capsule by mouth before meals and at bedtime. pramipexole (MIRAPEX) 1 mg tablet Take 1 tablet by mouth daily at bedtime. clopidogrel (PLAVIX) 75 mg tablet Take 1 tablet by mouth once daily. amiodarone (PACERONE) 200 mg tablet Take 1 tablet by mouth once daily. Multivitamin capsule Take 1 capsule by mouth once daily. VITAMIN E, BULK, MISC lisinopril (ZESTRIL, PRINIVIL) 40 mg tablet Take 1 tablet by mouth once daily. acetaminophen (TYLENOL EXTRA STRENGTH) 500 mg tablet Take 500 mg by mouth every 6 hours as needed. diphenoxylate-atropine sulfate (LOMOTIL) 2.5-0.025 mg/5 mL liquid Take 5 mL by mouth four times daily as needed. rivaroxaban (XARELTO) 20 mg tablet Take 20 mg by mouth daily with dinner. MELATONIN ORAL Take by mouth once daily. lidocaine (LIDODERM) 5 %(700 mg/patch) Apply 1 Patch as directed every 12 hours. nitroglycerin sublingual (NITROSTAT) 0.4 mg SL tablet Dissolve 1 tablet under the tongue as needed. FOR CHEST PAIN. IF NO RELIEF CALL 911 No current facility-administered medications on file prior to visit. Social History Social History Marital status: Spouse name: Years of education: Number of children: 3 Occupational History Occupation Employer Comment Retired Social History Main Topics Smoking status: Former Smoker Packs/day: 0.00 Years: 47.00 Types: Cigarettes Quit date: 04/24/2017 Smokeless tobacco: Never Used Comment: <5 per day Alcohol use: No Drug use: No Sexual activity: No Comment: Postmenopausal Review of Symptoms REVIEW OF SYSTEMS See HPI EXAM: BP 138/76 Pulse (!) 56 Resp 12 Wt 74.8 kg (165 lb) BMI 31.56 kg/m? General Appearance: Well appearing, alert, in no acute distress, well-hydrated, well nourished.. Skin: bruising on forearms bilaterally without signs of infection, hematoma or active bleeding. Petechiae as well, right worse than left . Health Maintenance List BP CONTROLLED (<130/80) due on 1967 DTAP,TDAP,TD(1 - Tdap) due on 01/24/1968 LDL CHOLESTEROL due on 04/22/2016 INFLUENZA(1) due on 11/15/2017 STATIN MED ADHERENCE due on 12/15/2017 MAMMOGRAM due on 03/13/2018 COLORECTAL CANCER SCREENING,SEE MODIFIER due on 06/16/2018 ANNUAL PCP TEAM CHRONIC DISEASE VISIT due on 11/10/2018 LIPID SCREEN due on 04/22/2020 DIABETES SCREEN due on 09/05/2020 BONE DENSITY Completed ADULT PREVNAR-13 Completed HEPATITIS C SCREENING Completed PNEUMOVAX AGE 65 AND OVER WITH 5YR LOOKBACK Completed Data reviewed Component Latest Ref Rng AND Units 09/05/2017 11/10/2017 WBC 3.70 - 11.00 k/uL 7.69 6.71 RBC 3.90 - 5.20 m/uL 4.47 4.60 Hemoglobin 11.5 - 15.5 g/dL 13.4 13.4 Hematocrit 36.0 - 46.0 % 39.8 41.7 MCV 80.0 - 100.0 fL 89.0 90.7 MCH 26.0 - 34.0 pG 30.0 29.1 MCHC 30.5 - 36.0 g/dL 33.7 32.1 RDW-CV 11.5 - 15.0 % 13.1 13.2 Platelet Count 150 - 400 k/uL 204 201 MPV 9.0 - 12.7 fL 11.9 11.9 Neut% % 70.2 Abs Neut (ANC) 1.45 - 7.50 k/uL 4.69 Lymph% % 20.6 Abs Lymph 1.00 - 4.00 k/uL 1.38 [place]% % 6.9 Abs [place] <0.87 k/uL 0.46 Eosin% % 1.9 Abs Eosin <0.46 k/uL 0.13 Baso% % 0.4 Abs Baso <0.11 k/uL 0.03 Nucleated Reds 0 /100 WBC 0.1 (H) Absolute nRBC <0.01 k/uL <0.01 0.01 (H) Diff Type Auto Diff Protein, Total 6.3 - 8.0 g/dL 6.5 Albumin 3.9 - 4.9 g/dL 3.9 Calcium 8.5 - 10.2 mg/dL 9.3 Bilirubin, Total 0.2 - 1.3 mg/dL 0.2 Alkaline Phosphatase 32 - 117 U/L 96 AST 13 - 35 U/L 21 Glucose 74 - 99 mg/dL 98 BUN 7 - 21 mg/dL 16 Creatinine 0.58 - 0.96 mg/dL 0.91 Sodium 136 - 144 mmol/L 140 Potassium 3.7 - 5.1 mmol/L 4.1 Chloride 97 - 105 mmol/L 105 CO2 22 - 30 mmol/L 25 Anion Gap 9 - 18 mmol/L 10 ALT 7 - 38 U/L 9 eGFR- >60 eGFR-All Other Races . >60 Hemoglobin A1C 4.3 - 5.6 % 5.4 Estimated Average Glucose mg/dL 108 ASSESSMENT/PLAN: 1. Petechial rash - ICD9: 782.7, ICD10: R23.3 (primary diagnosis) Refer to derm for biopsy, possible vasculitis. Hydrocortisone cream for itching PRN. - CONSULT TO DERMATOLOGY 2. Abnormal CBC - ICD9: 790.6, ICD10: R79.89 Repeat CBC for elevated nucleated RBCs. - CBC + DIFF - STAFF REVIEW WITH CBC AND DIFF Cathi Hayes MD Referring Provider: SELF [200] Allergies As of Date: 11/21/2017 (No Known Allergies) Date Reviewed: 11/21/2017 Reviewed by: Adriano Toscano Ma - Fully Assessed Reason for Visit: issues with arms [Other] Primary Visit Diagnosis:Petechial rash [R23.3] Other Visit Diagnosis:Abnormal CBC [R79.89] Order(s):CONSULT TO DERMATOLOGY [9006] Order #: [id number]: 1 STAFF REVIEW WITH CBC AND DIFF [SQSTREV] Order #: [id number] FUTURE Prescriptions as of 11/21/2017 Sig: ATORVASTATIN 40 MG TABLET Take 1 tablet by mouth once d* RANITIDINE 150 MG TABLET Take 1 tablet by mouth twice * AMITRIPTYLINE 25 MG TABLET TAKE 3 TABLETS DAILY AT BEDTI* CHOLECALCIFEROL (VITAMIN D3) * Take 1,000 Units by mouth onc* ISOSORBIDE MONONITRATE ER 60 * Take 1 tablet by mouth once d* METOPROLOL TARTRATE 100 MG TA* Take 1 tablet by mouth twice * CITALOPRAM 40 MG TABLET TAKE 1 TABLET EVERY DAY ASCORBIC ACID (VITAMIN C) 500* Take 500 mg by mouth once elliott* ADVAIR DISKUS 500 MCG-50 MCG/* Inhale 1 Puff as instructed o* VENTOLIN HFA INHALATION Inhale 1 Puff as instructed a* AMLODIPINE 10 MG TABLET Take 1 tablet by mouth once d* DICYCLOMINE 10 MG CAPSULE Take 1 capsule by mouth befor* PRAMIPEXOLE 1 MG TABLET Take 1 tablet by mouth daily * CLOPIDOGREL 75 MG TABLET Take 1 tablet by mouth once d* AMIODARONE 200 MG TABLET Take 1 tablet by mouth once d* MULTIVITAMIN CAPSULE Take 1 capsule by mouth once * VITAMIN E (BULK) MISC LISINOPRIL 40 MG TABLET Take 1 tablet by mouth once d* ACETAMINOPHEN 500 MG TABLET Take 500 mg by mouth every 6 * DIPHENOXYLATE-ATROPINE 2.5 MG* Take 5 mL by mouth four times* RIVAROXABAN 20 MG TABLET Take 20 mg by mouth daily wit* MELATONIN ORAL Take by mouth once daily. LIDOCAINE 5 % TOPICAL PATCH Apply 1 Patch as directed orly* NITROGLYCERIN 0.4 MG SUBLINGU* Dissolve 1 tablet under the t* Problem List As Of Date 11/21/2017 Noted Resolved Vulvovaginitis [N76.0] INVALID FOR*01/13/2014 Atrial fibrillation [I48.91] INVALID FOR* Restless leg syndrome [G25.81] INVALID FOR* Hypertension [I10] Heart disease [I51.9] 01/29/2017 More... Pelvic mass in female [R19.00] INVALID FOR*05/07/2013 PAD (peripheral artery disease) [I73.9] INVALID FOR* History of myocardial infarction [I25.2] INVALID FOR* Ovarian cancer [C56.9] INVALID FOR*05/07/2013 Cellulitis, abdominal wall [L03.311] INVALID FOR*01/29/2017 Personal history of malignant neoplasm of ovary*INVALID FOR* Chronic pain [G89.29] INVALID FOR* Lumbar radiculopathy [M54.16] INVALID FOR* DDD (degenerative disc disease), lumbar [M51.36]INVALID FOR* Myofascial pain [M79.1] INVALID FOR* Pelvic pain INVALID FOR*01/02/2016 Urinary frequency [R35.0] INVALID FOR* Hematuria, microscopic [R31.29] INVALID FOR* Nocturia [R35.1] INVALID FOR* S/P coronary artery stent placement [Z95.5] INVALID FOR* Tobacco abuse [Z72.0] INVALID FOR* Family history of ischemic heart disease [Z82.4*INVALID FOR* Dyslipidemia [E78.5] INVALID FOR* Shortness of breath [R06.02] INVALID FOR* Pain of left lower extremity [M79.605] INVALID FOR* CAD (coronary artery disease) [I25.10] GERD (gastroesophageal reflux disease) [K21.9] Disposition: Return if symptoms worsen or fail to improve. Follow-up and Disposition History Recorded Encounter Status:Closed by CATHI HAYES MD on 11/21/17 PROGRESS Observed: 11/21/2017 Status: COMPLETED Source: [place] 10:[address] [facility] [place] REPOSITORY HNO ID: [id number] Author: Cathi Garrison) Abigail Service: (none) Author Type: Physician Type: Progress Notes Filed: 11/21/2017 11:35 AM Note Text: Chief Complaint Patient presents with: issues with arms HPI Kathy Puri is a 67 year old female who presents here today for Above Complaints.. Patient seen on 11/10 for same complaint, thinks petechial rash is worsening. Spreading up her right arm with some itching. Denies pain, bleeding, increased bruising. Reviewed recent CBC which showed normal platelets. Past medical history, appointments, medications, allergies reviewed. Previous Medical History PAST MEDICAL HISTORY Diagnosis Date - Atrial fibrillation ([facility]) 07/16/2011 - CAD (coronary artery disease) seeing Dr. Treviño - Chronic lower back pain - DDD (degenerative disc disease), lumbar - Depression - GERD (gastroesophageal reflux disease) - H/O heart artery stent 7 Stents, last 2006 - Hypertension - IBS (irritable bowel syndrome) - Myocardial infarction ([facility]) x2 - Obesity - Ovarian cancer ([facility]) 09/13/[address] Blank - PAD (peripheral artery disease) ([facility]) Dr. Sathish Gar - Restless leg syndrome 07/16/2011 - Sleep apnea on Bipap - Tobacco use - Vulvovaginitis 07/16/2011 Previous Surgical History PAST SURGICAL HISTORY Procedure Laterality Date - CATARACT EXTRACTION HX Bilateral 03/2017 - COLONOSCOP W/ OR W/O [facility] SPEC 06/16/13 Colonoscopy - EGD W/O OR W/BRUSH/WASH 06/16/13 EGD - REMOVE TONSILS/ADENOIDS,<12 Y/O - REVSC OPN/PRG FEM/POP W/ANGIOPLASTY UNI Right 01/05/15 - REVSC OPN/PRG FEM/POP W/ANGIOPLASTY UNI Left 02-15-15 - REVSC OPN/PRG FEM/POP W/ANGIOPLASTY UNI Left 09/23/2016 - REVSC OPN/PRQ FEM/POP W/STNT/ANGIOP VS 11-26-13 - REVSC OPN/PRQ FEM/POP W/STNT/ANGIOP VSL 01/07/14 - STENTS (SPECIFY) 1999 AND 2006 7 Stents - TOTAL ABD HYSTEREC+LTD NODES 2012 DIOMEDES BSO ovarian cancer Family History FAMILY HISTORY Problem Relation Age of Onset - Heart Father [place] - Stroke Maternal Grandfather - Hypertension Sister - Psychiatry Sister Patient Allergies ALLERGIES No Known Allergies Current Medications Current Outpatient Prescriptions on File Prior to Visit: atorvastatin (LIPITOR) 40 mg tablet Take 1 tablet by mouth once daily. ranitidine (ZANTAC) 150 mg tablet Take 1 tablet by mouth twice daily. amitriptyline (ELAVIL) 25 mg tablet TAKE 3 TABLETS DAILY AT BEDTIME Cholecalciferol, Vitamin D3, (VITAMIN D) 1,000 unit cap Take 1,000 Units by mouth once daily. isosorbide mononitrate ER (IMDUR) 60 mg 24 hr tablet Take 1 tablet by mouth once daily. metoprolol tartrate, short acting, (LOPRESSOR) 100 mg tablet Take 1 tablet by mouth twice daily. citalopram (CELEXA) 40 mg tablet TAKE 1 TABLET EVERY DAY ascorbic acid, vitamin C, (VITAMIN C) 500 mg tablet Take 500 mg by mouth once daily. ADVAIR DISKUS 500-50 mcg/dose dsdv Inhale 1 Puff as instructed once daily. ALBUTEROL SULFATE (VENTOLIN HFA INHALATION) Inhale 1 Puff as instructed as needed. amLODIPine (NORVASC) 10 mg tablet Take 1 tablet by mouth once daily. dicyclomine (BENTYL) 10 mg capsule Take 1 capsule by mouth before meals and at bedtime. pramipexole (MIRAPEX) 1 mg tablet Take 1 tablet by mouth daily at bedtime. clopidogrel (PLAVIX) 75 mg tablet Take 1 tablet by mouth once daily. amiodarone (PACERONE) 200 mg tablet Take 1 tablet by mouth once daily. Multivitamin capsule Take 1 capsule by mouth once daily. VITAMIN E, BULK, MISC lisinopril (ZESTRIL, PRINIVIL) 40 mg tablet Take 1 tablet by mouth once daily. acetaminophen (TYLENOL EXTRA STRENGTH) 500 mg tablet Take 500 mg by mouth every 6 hours as needed. diphenoxylate-atropine sulfate (LOMOTIL) 2.5-0.025 mg/5 mL liquid Take 5 mL by mouth four times daily as needed. rivaroxaban (XARELTO) 20 mg tablet Take 20 mg by mouth daily with dinner. MELATONIN ORAL Take by mouth once daily. lidocaine (LIDODERM) 5 %(700 mg/patch) Apply 1 Patch as directed every 12 hours. nitroglycerin sublingual (NITROSTAT) 0.4 mg SL tablet Dissolve 1 tablet under the tongue as needed. FOR CHEST PAIN. IF NO RELIEF CALL 911 No current facility-administered medications on file prior to visit. Social History Social History Marital status: Spouse name: Years of education: Number of children: 3 Occupational History Occupation Employer Comment Retired Social History Main Topics Smoking status: Former Smoker Packs/day: 0.00 Years: 47.00 Types: Cigarettes Quit date: 04/24/2017 Smokeless tobacco: Never Used Comment: <5 per day Alcohol use: No Drug use: No Sexual activity: No Comment: Postmenopausal Review of Symptoms REVIEW OF SYSTEMS See HPI EXAM: BP 138/76 Pulse (!) 56 Resp 12 Wt 74.8 kg (165 lb) BMI 31.56 kg/m? General Appearance: Well appearing, alert, in no acute distress, well-hydrated, well nourished.. Skin: bruising on forearms bilaterally without signs of infection, hematoma or active bleeding. Petechiae as well, right worse than left . Health Maintenance List BP CONTROLLED (<130/80) due on 1967 DTAP,TDAP,TD(1 - Tdap) due on 01/24/1968 LDL CHOLESTEROL due on 04/22/2016 INFLUENZA(1) due on 11/15/2017 STATIN MED ADHERENCE due on 12/15/2017 MAMMOGRAM due on 03/13/2018 COLORECTAL CANCER SCREENING,SEE MODIFIER due on 06/16/2018 ANNUAL PCP TEAM CHRONIC DISEASE VISIT due on 11/10/2018 LIPID SCREEN due on 04/22/2020 DIABETES SCREEN due on 09/05/2020 BONE DENSITY Completed ADULT PREVNAR-13 Completed HEPATITIS C SCREENING Completed PNEUMOVAX AGE 65 AND OVER WITH 5YR LOOKBACK Completed Data reviewed Component Latest Ref Rng AND Units 09/05/2017 11/10/2017 WBC 3.70 - 11.00 k/uL 7.69 6.71 RBC 3.90 - 5.20 m/uL 4.47 4.60 Hemoglobin 11.5 - 15.5 g/dL 13.4 13.4 Hematocrit 36.0 - 46.0 % 39.8 41.7 MCV 80.0 - 100.0 fL 89.0 90.7 MCH 26.0 - 34.0 pG 30.0 29.1 MCHC 30.5 - 36.0 g/dL 33.7 32.1 RDW-CV 11.5 - 15.0 % 13.1 13.2 Platelet Count 150 - 400 k/uL 204 201 MPV 9.0 - 12.7 fL 11.9 11.9 Neut% % 70.2 Abs Neut (ANC) 1.45 - 7.50 k/uL 4.69 Lymph% % 20.6 Abs Lymph 1.00 - 4.00 k/uL 1.38 [place]% % 6.9 Abs [place] <0.87 k/uL 0.46 Eosin% % 1.9 Abs Eosin <0.46 k/uL 0.13 Baso% % 0.4 Abs Baso <0.11 k/uL 0.03 Nucleated Reds 0 /100 WBC 0.1 (H) Absolute nRBC <0.01 k/uL <0.01 0.01 (H) Diff Type Auto Diff Protein, Total 6.3 - 8.0 g/dL 6.5 Albumin 3.9 - 4.9 g/dL 3.9 Calcium 8.5 - 10.2 mg/dL 9.3 Bilirubin, Total 0.2 - 1.3 mg/dL 0.2 Alkaline Phosphatase 32 - 117 U/L 96 AST 13 - 35 U/L 21 Glucose 74 - 99 mg/dL 98 BUN 7 - 21 mg/dL 16 Creatinine 0.58 - 0.96 mg/dL 0.91 Sodium 136 - 144 mmol/L 140 Potassium 3.7 - 5.1 mmol/L 4.1 Chloride 97 - 105 mmol/L 105 CO2 22 - 30 mmol/L 25 Anion Gap 9 - 18 mmol/L 10 ALT 7 - 38 U/L 9 eGFR- >60 eGFR-All Other Races . >60 Hemoglobin A1C 4.3 - 5.6 % 5.4 Estimated Average Glucose mg/dL 108 ASSESSMENT/PLAN: 1. Petechial rash - ICD9: 782.7, ICD10: R23.3 (primary diagnosis) Refer to derm for biopsy, possible vasculitis. Hydrocortisone cream for itching PRN. - CONSULT TO DERMATOLOGY 2. Abnormal CBC - ICD9: 790.6, ICD10: R79.89 Repeat CBC for elevated nucleated RBCs. - CBC + DIFF - STAFF REVIEW WITH CBC AND DIFF Cathi Hayes MD Observed: 11/21/2017 Status: F Source: [place] BACT/CAND VAG GRM [facility] 9:31 AM [facility] REPOSITORY Sp. Request/Comment: - Swab Smear Result - BACTERIAL VAGINOSIS RESULT: Stain results indicate mixed morphotypes consistent with transition from normal vaginal jordana. No Yeast observed Performed By: #### BVCNSM #### [facility] [address] [place], [place] [address] CNOV Observed: 11/21/2017 Status: COMPLETED Source: [place] 9:00 AM [facility] REPOSITORY Office Visit (WOOB) KATHY PURI ([id number]) 1950 F Date Time Provider Department 11/21/17 9:00 AM CHERIE PERKINS (VANESSA) WOOB During your visit today, we recorded the following information about you: Blood pressure Weight 130/66 75.2 kg Cherie Perkins APRN.CNP 11/21/2017 9:30 AM Signed Kathy Xie Jaxson is a 67 year old female who presents for vaginal pruritis and discharge for 1 week(s). Vaginal discharge: moderate amount, thin and white. Itching: YES Dyspareunia: No Fever/chills: No Abdominal pain: Yes, Bladder: Negative for dysuria or frequency Bowel: No blood in stool, pain with BM, tarry stool, persistent diarrhea or constipation Any new sexual partners or concern for STD exposure: Not sexually active Are you currently taking any medications to treat vaginitis: No Do you use feminine sprays, douches or deodorants: No Menstrual cycle: no menses - postmenopausal Past medical, surgical, social history, medications and allergies reviewed and updated. OBJECTIVE: Wt 165 lb 12.8 oz (75.2kg) GENERAL: Well developed, well nourished in no apparent distress ABDOMEN: soft, non-tender and no masses PELVIC: external genitalia normal, normal Bartholin's glands, urethra, [place]'s glands, no vulvar lesions, physiologic discharge present, normal appearing perineal body and perianal region, cervix surgically absent BIMANUAL: non-tender and uterus surgically absent. RECTOVAGINAL: deferred. ASSESSMENT/PLAN: B/O BV- negative BV/yeast culture sent Recommended using [email or web address] Will call with results Cherie Perkins, LEGAL FILE CLERK.VOCATIONAL NURSING INSTRUCTOR Referring Provider: SELF [[id number]] Allergies As of Date: 11/21/2017 (No Known Allergies) Date Reviewed: 11/21/2017 Reviewed by: Cherie (Vanessa) Brianne - Fully Assessed Reason for Visit: Vaginal Infection [241] Cmt: itching, discharge and odor x1 week Primary Visit Diagnosis:Acute vaginitis [N76.0] Order(s):RAPID BV B/O [[id number]] Order #: [id number] BACT/CHAYO VAG GRAM STAIN [SQBVCNSM] Order #: [id number] FUTURE Prescriptions as of 11/21/2017 Sig: ATORVASTATIN 40 MG TABLET Take 1 tablet by mouth once d* RANITIDINE 150 MG TABLET Take 1 tablet by mouth twice * AMITRIPTYLINE 25 MG TABLET TAKE 3 TABLETS DAILY AT BEDTI* CHOLECALCIFEROL (VITAMIN D3) * Take 1,000 Units by mouth onc* ISOSORBIDE MONONITRATE ER 60 * Take 1 tablet by mouth once d* METOPROLOL TARTRATE 100 MG TA* Take 1 tablet by mouth twice * CITALOPRAM 40 MG TABLET TAKE 1 TABLET EVERY DAY ASCORBIC ACID (VITAMIN C) 500* Take 500 mg by mouth once elliott* ADVAIR DISKUS 500 MCG-50 MCG/* Inhale 1 Puff as instructed o* VENTOLIN HFA INHALATION Inhale 1 Puff as instructed a* AMLODIPINE 10 MG TABLET Take 1 tablet by mouth once d* DICYCLOMINE 10 MG CAPSULE Take 1 capsule by mouth befor* PRAMIPEXOLE 1 MG TABLET Take 1 tablet by mouth daily * CLOPIDOGREL 75 MG TABLET Take 1 tablet by mouth once d* AMIODARONE 200 MG TABLET Take 1 tablet by mouth once d* MULTIVITAMIN CAPSULE Take 1 capsule by mouth once * VITAMIN E (BULK) MISC LISINOPRIL 40 MG TABLET Take 1 tablet by mouth once d* ACETAMINOPHEN 500 MG TABLET Take 500 mg by mouth every 6 * DIPHENOXYLATE-ATROPINE 2.5 MG* Take 5 mL by mouth four times* RIVAROXABAN 20 MG TABLET Take 20 mg by mouth daily wit* MELATONIN ORAL Take by mouth once daily. LIDOCAINE 5 % TOPICAL PATCH Apply 1 Patch as directed orly* NITROGLYCERIN 0.4 MG SUBLINGU* Dissolve 1 tablet under the t* Problem List As Of Date 11/21/2017 Noted Resolved Vulvovaginitis [N76.0] INVALID FOR*01/13/2014 Atrial fibrillation [I48.91] INVALID FOR* Restless leg syndrome [G25.81] INVALID FOR* Hypertension [I10] Heart disease [I51.9] 01/29/2017 More... Pelvic mass in female [R19.00] INVALID FOR*05/07/2013 PAD (peripheral artery disease) [I73.9] INVALID FOR* History of myocardial infarction [I25.2] INVALID FOR* Ovarian cancer [C56.9] INVALID FOR*05/07/2013 Cellulitis, abdominal wall [L03.311] INVALID FOR*01/29/2017 Personal history of malignant neoplasm of ovary*INVALID FOR* Chronic pain [G89.29] INVALID FOR* Lumbar radiculopathy [M54.16] INVALID FOR* DDD (degenerative disc disease), lumbar [M51.36]INVALID FOR* Myofascial pain [M79.1] INVALID FOR* Pelvic pain INVALID FOR*01/02/2016 Urinary frequency [R35.0] INVALID FOR* Hematuria, microscopic [R31.29] INVALID FOR* Nocturia [R35.1] INVALID FOR* S/P coronary artery stent placement [Z95.5] INVALID FOR* Tobacco abuse [Z72.0] INVALID FOR* Family history of ischemic heart disease [Z82.4*INVALID FOR* Dyslipidemia [E78.5] INVALID FOR* Shortness of breath [R06.02] INVALID FOR* Pain of left lower extremity [M79.605] INVALID FOR* CAD (coronary artery disease) [I25.10] GERD (gastroesophageal reflux disease) [K21.9] Encounter Status:Closed by CHERIE PERKINS on 11/21/17 PROGRESS Observed: 11/21/2017 Status: COMPLETED Source: [place] 8:53 AM [facility] REPOSITORY HNO ID: [id number] Author: Cherie Perkins Service: (none) Author Type: Nurse Practitioner Type: Progress Notes Filed: 11/21/2017 9:30 AM Note Text: Kathyrojas Puri is a 67 year old female who presents for vaginal pruritis and discharge for 1 week(s). Vaginal discharge: moderate amount, thin and white. Itching: YES Dyspareunia: No Fever/chills: No Abdominal pain: Yes, Bladder: Negative for dysuria or frequency Bowel: No blood in stool, pain with BM, tarry stool, persistent diarrhea or constipation Any new sexual partners or concern for STD exposure: Not sexually active Are you currently taking any medications to treat vaginitis: No Do you use feminine sprays, douches or deodorants: No Menstrual cycle: no menses - postmenopausal Past medical, surgical, social history, medications and allergies reviewed and updated. OBJECTIVE: Wt 165 lb 12.8 oz (75.2kg) GENERAL: Well developed, well nourished in no apparent distress ABDOMEN: soft, non-tender and no masses PELVIC: external genitalia normal, normal Bartholin's glands, urethra, [place]'s glands, no vulvar lesions, physiologic discharge present, normal appearing perineal body and perianal region, cervix surgically absent BIMANUAL: non-tender and uterus surgically absent. RECTOVAGINAL: deferred. ASSESSMENT/PLAN: B/O BV- negative BV/yeast culture sent Recommended using [email or web address] Will call with results Cherie Perkins APRN.VANESSA CABALLERO Observed: 11/11/2017 Status: COMPLETED Source: [place] 12:00 AM [facility] REPOSITORY Telephone (FAMPWS) JAXSONKATHY ([id number]) 1950 F Date Time Provider Department 8/28/18 CATHI HAYES) FAMPWS During your visit today, we recorded the following information about you: Bhavesh Snow, RN, RN 11/11/2017 9:26 AM Signed Pt calls requesting results of labs done yesterday. Aware PCP is out of office this AM. Component Results Component Value Range AND Units Status Performing Lab WBC 6.71 3.70 - 11.00 k/uL Final CCM RBC 4.60 3.90 - 5.20 m/uL Final CCM Hemoglobin 13.4 11.5 - 15.5 g/dL Final CCM Hematocrit 41.7 36.0 - 46.0 % Final CCM MCV 90.7 80.0 - 100.0 fL Final CCM MCH 29.1 26.0 - 34.0 pG Final CCM MCHC 32.1 30.5 - 36.0 g/dL Final CCM RDW-CV 13.2 11.5 - 15.0 % Final CCM Platelet Count 201 150 - 400 k/uL Final CCM MPV 11.9 9.0 - 12.7 fL Final CCM Neut% 70.2 % Final CCM Abs Neut (ANC) 4.69 1.45 - 7.50 k/uL Final CCM Lymph% 20.6 % Final CCM Abs Lymph 1.38 1.00 - 4.00 k/uL Final CCM [place]% 6.9 % Final CCM Abs [place] 0.46 <0.87 k/uL Final CCM Eosin% 1.9 % Final CCM Abs Eosin 0.13 <0.46 k/uL Final CCM Baso% 0.4 % Final CCM Abs Baso 0.03 <0.11 k/uL Final CCM Nucleated Reds 0.1 (H) 0 /100 WBC Final CCM Absolute nRBC 0.01 (H) <0.01 k/uL Final CCM Diff Type Auto Diff Final CCM Cathi Hayes MD 11/11/2017 12:01 PM Signed See results. Adriano Toscano Ma 11/11/2017 12:33 PM Signed Patient notified of results via [facility] [employer]. Chloe oDyle LPN 11/12/2017 9:58 AM Signed Patient returned call and went over results, notes from Dr Hayes that had been sent by my chart patient does not have my chart access anymore changed on her chart. Allergies As of Date: 11/11/2017 (No Known Allergies) Date Reviewed: 11/10/2017 Reviewed by: Adriano Toscano Ma - Fully Assessed Reason for Visit: Results [95] Prescriptions as of 11/11/2017 Sig: ATORVASTATIN 40 MG TABLET Take 1 tablet by mouth once d* RANITIDINE 150 MG TABLET Take 1 tablet by mouth twice * AMITRIPTYLINE 25 MG TABLET TAKE 3 TABLETS DAILY AT BEDTI* AMOXICILLIN 875 MG-POTASSIUM * Take 1 tablet by mouth twice * CHOLECALCIFEROL (VITAMIN D3) * Take 1,000 Units by mouth onc* ISOSORBIDE MONONITRATE ER 60 * Take 1 tablet by mouth once d* METOPROLOL TARTRATE 100 MG TA* Take 1 tablet by mouth twice * CITALOPRAM 40 MG TABLET TAKE 1 TABLET EVERY DAY ASCORBIC ACID (VITAMIN C) 500* Take 500 mg by mouth once elliott* ADVAIR DISKUS 500 MCG-50 MCG/* Inhale 1 Puff as instructed o* VENTOLIN HFA INHALATION Inhale 1 Puff as instructed a* AMLODIPINE 10 MG TABLET Take 1 tablet by mouth once d* DICYCLOMINE 10 MG CAPSULE Take 1 capsule by mouth befor* PRAMIPEXOLE 1 MG TABLET Take 1 tablet by mouth daily * CLOPIDOGREL 75 MG TABLET Take 1 tablet by mouth once d* AMIODARONE 200 MG TABLET Take 1 tablet by mouth once d* MULTIVITAMIN CAPSULE Take 1 capsule by mouth once * VITAMIN E (BULK) MISC LISINOPRIL 40 MG TABLET Take 1 tablet by mouth once d* ACETAMINOPHEN 500 MG TABLET Take 500 mg by mouth every 6 * DIPHENOXYLATE-ATROPINE 2.5 MG* Take 5 mL by mouth four times* RIVAROXABAN 20 MG TABLET Take 20 mg by mouth daily wit* MELATONIN ORAL Take by mouth once daily. LIDOCAINE 5 % TOPICAL PATCH Apply 1 Patch as directed orly* NITROGLYCERIN 0.4 MG SUBLINGU* Dissolve 1 tablet under the t* Problem List As Of Date 11/11/2017 Noted Resolved Vulvovaginitis [N76.0] INVALID FOR*01/13/2014 Atrial fibrillation [I48.91] INVALID FOR* Restless leg syndrome [G25.81] INVALID FOR* Hypertension [I10] Heart disease [I51.9] 01/29/2017 More... Pelvic mass in female [R19.00] INVALID FOR*05/07/2013 PAD (peripheral artery disease) [I73.9] INVALID FOR* History of myocardial infarction [I25.2] INVALID FOR* Ovarian cancer [C56.9] INVALID FOR*05/07/2013 Cellulitis, abdominal wall [L03.311] INVALID FOR*01/29/2017 Personal history of malignant neoplasm of ovary*INVALID FOR* Chronic pain [G89.29] INVALID FOR* Lumbar radiculopathy [M54.16] INVALID FOR* DDD (degenerative disc disease), lumbar [M51.36]INVALID FOR* Myofascial pain [M79.1] INVALID FOR* Pelvic pain INVALID FOR*01/02/2016 Urinary frequency [R35.0] INVALID FOR* Hematuria, microscopic [R31.29] INVALID FOR* Nocturia [R35.1] INVALID FOR* S/P coronary artery stent placement [Z95.5] INVALID FOR* Tobacco abuse [Z72.0] INVALID FOR* Family history of ischemic heart disease [Z82.4*INVALID FOR* Dyslipidemia [E78.5] INVALID FOR* Shortness of breath [R06.02] INVALID FOR* Pain of left lower extremity [M79.605] INVALID FOR* CAD (coronary artery disease) [I25.10] GERD (gastroesophageal reflux disease) [K21.9] Encounter Status:Closed by ADRIANO TOSCANO MA on 11/11/17 CBC AND DIFFERENTIAL Collected: 11/10/2017 Status: F Source: [place] 1:42 PM [facility] REPOSITORY TYPE CODE TESTS RESULT OUT OF REFERENCE UNITS RANGE LAB WBC 3.70-11.00 k/uL WBC 6.71 LAB RBC 3.90-5.20 m/uL RBC 4.60 LAB HGB 11.5-15.5 g/dL Hemoglobin 13.4 LAB HCT 36.0-46.0 % Hematocrit 41.7 LAB MCV 80.0-100.0 fL MCV 90.7 LAB MCH 26.0-34.0 pG MCH 29.1 LAB MCHC 30.5-36.0 g/dL MCHC 32.1 LAB RDWCV 11.5-15.0 % RDW-CV 13.2 LAB PLTCT 150-400 k/uL Platelet Count 201 LAB MPV 9.0-12.7 fL MPV 11.9 LAB ANEUT % Neut% 70.2 LAB AANEUT 1.45-7.50 k/uL Abs Neut 4.69 LAB ALYMP % Lymph% 20.6 LAB AALYMP 1.00-4.00 k/uL Abs Lymph 1.38 LAB AMONO % [place]% 6.9 LAB AAMONO <0.87 k/uL Abs [place] 0.46 LAB AEOS % Eosin% 1.9 LAB AAEOS <0.46 k/uL Abs Eosin 0.13 LAB ABASO % Baso% 0.4 LAB AABASO <0.11 k/uL Abs Baso 0.03 LAB AUNRBC 0 /100 WBC NRBCs High 0.1 LAB ABNRBC <0.01 k/uL Absolute High nRBC 0.01 LAB DTYP DTYPE Auto Diff Performed By: #### CBCDIF #### [facility] [address] [place] [address] PROGRESS Observed: 11/10/2017 Status: COMPLETED Source: [place] 1:[address] [facility] REPOSITORY HNO ID: [id number] Author: Cathi Garrison) Abigail Service: (none) Author Type: Physician Type: Progress Notes Filed: 11/10/2017 1:46 PM Note Text: Chief Complaint Patient presents with: blood blisters on arms x 4 days HPI Kathy Puri is a 67 year old female who presents here today for Above Complaints.. States that she noticed bruising on her forearms bilaterally without obvious cause. Taking Xarelto and plavix as prescribed without other bruising or bleeding. Denies recent trauma or falls. Has not had any recent lightheadedness/vertigo, SOB, syncope. Past medical history, appointments, medications, allergies reviewed. Previous Medical History PAST MEDICAL HISTORY Diagnosis Date - Atrial fibrillation (HCC) 07/16/2011 - CAD (coronary artery disease) seeing Dr. Treviño - Chronic lower back pain - DDD (degenerative disc disease), lumbar - Depression - GERD (gastroesophageal reflux disease) - H/O heart artery stent 7 Stents, last 2006 - Hypertension - IBS (irritable bowel syndrome) - Myocardial infarction ([facility]) x2 - Obesity - Ovarian cancer ([facility]) 09/13/[address] Blank - PAD (peripheral artery disease) ([facility]) Dr. Sathish Gar - Restless leg syndrome 07/16/2011 - Sleep apnea on Bipap - Tobacco use - Vulvovaginitis 07/16/2011 Previous Surgical History PAST SURGICAL HISTORY Procedure Laterality Date - CATARACT EXTRACTION HX Bilateral 03/2017 - COLONOSCOP W/ OR W/O BRSH SPEC 06/16/13 Colonoscopy - EGD W/O OR W/BRUSH/WASH 06/16/13 EGD - REMOVE TONSILS/ADENOIDS,<12 Y/O - REVSC OPN/PRG FEM/POP W/ANGIOPLASTY UNI Right 01/05/15 - REVSC OPN/PRG FEM/POP W/ANGIOPLASTY UNI Left 02-15-15 - REVSC OPN/PRG FEM/POP W/ANGIOPLASTY UNI Left 09/23/2016 - REVSC OPN/PRQ FEM/POP W/STNT/ANGIOP [facility] 11-26-13 - REVSC OPN/PRQ FEM/POP W/STNT/ANGIOP VS 01/07/14 - STENTS (SPECIFY) 1999 AND 2006 7 Stents - TOTAL ABD HYSTEREC+LTD NODES 2011 DIOMEDES BSO ovarian cancer Family History FAMILY HISTORY Problem Relation Age of Onset - Heart Father [place] - Stroke Maternal Grandfather - Hypertension Sister - Psychiatry Sister Patient Allergies ALLERGIES No Known Allergies Current Medications Current Outpatient Prescriptions on File Prior to Visit: atorvastatin (LIPITOR) 40 mg tablet Take 1 tablet by mouth once daily. ranitidine (ZANTAC) 150 mg tablet Take 1 tablet by mouth twice daily. amitriptyline (ELAVIL) 25 mg tablet TAKE 3 TABLETS DAILY AT BEDTIME amoxicillin-clavulanic acid (AUGMENTIN) 875-125 mg per tablet Take 1 tablet by mouth twice daily for 10 days. Cholecalciferol, Vitamin D3, (VITAMIN D) 1,000 unit cap Take 1,000 Units by mouth once daily. isosorbide mononitrate ER (IMDUR) 60 mg 24 hr tablet Take 1 tablet by mouth once daily. metoprolol tartrate, short acting, (LOPRESSOR) 100 mg tablet Take 1 tablet by mouth twice daily. citalopram (CELEXA) 40 mg tablet TAKE 1 TABLET EVERY DAY ascorbic acid, vitamin C, (VITAMIN C) 500 mg tablet Take 500 mg by mouth once daily. ADVAIR DISKUS 500-50 mcg/dose dsdv Inhale 1 Puff as instructed once daily. ALBUTEROL SULFATE (VENTOLIN HFA INHALATION) Inhale 1 Puff as instructed as needed. amLODIPine (NORVASC) 10 mg tablet Take 1 tablet by mouth once daily. dicyclomine (BENTYL) 10 mg capsule Take 1 capsule by mouth before meals and at bedtime. pramipexole (MIRAPEX) 1 mg tablet Take 1 tablet by mouth daily at bedtime. clopidogrel (PLAVIX) 75 mg tablet Take 1 tablet by mouth once daily. amiodarone (PACERONE) 200 mg tablet Take 1 tablet by mouth once daily. Multivitamin capsule Take 1 capsule by mouth once daily. VITAMIN E, BULK, MISC lisinopril (ZESTRIL, PRINIVIL) 40 mg tablet Take 1 tablet by mouth once daily. acetaminophen (TYLENOL EXTRA STRENGTH) 500 mg tablet Take 500 mg by mouth every 6 hours as needed. diphenoxylate-atropine sulfate (LOMOTIL) 2.5-0.025 mg/5 mL liquid Take 5 mL by mouth four times daily as needed. rivaroxaban (XARELTO) 20 mg tablet Take 20 mg by mouth daily with dinner. MELATONIN ORAL Take by mouth once daily. lidocaine (LIDODERM) 5 %(700 mg/patch) Apply 1 Patch as directed every 12 hours. nitroglycerin sublingual (NITROSTAT) 0.4 mg SL tablet Dissolve 1 tablet under the tongue as needed. FOR CHEST PAIN. IF NO RELIEF CALL 911 No current facility-administered medications on file prior to visit. Social History Social History Marital status: Spouse name: Years of education: Number of children: 3 Occupational History Occupation Employer Comment Retired Social History Main Topics Smoking status: Former Smoker Packs/day: 0.00 Years: 47.00 Types: Cigarettes Quit date: 04/24/2017 Smokeless tobacco: Never Used Comment: <5 per day Alcohol use: No Drug use: No Sexual activity: No Comment: Postmenopausal Review of Symptoms REVIEW OF SYSTEMS GENERAL: No weight loss, malaise or fevers RESPIRATORY: Negative for cough, hemoptysis, wheezing, COPD, dyspnea or shortness of breath CARDIOVASCULAR: Negative for chest pain, leg swelling, hypertension, CHF or palpitations GI: No nausea, vomiting, or diarrhea SKIN: See HPI EXAM: BP 136/74 Pulse (!) 54 Resp 12 Wt 73.9 kg (163 lb) BMI 31.18 kg/m? General Appearance: Well appearing, alert, in no acute distress, well-hydrated, well nourished.. Skin: bruising on forearms bilaterally without signs of infection, hematoma or active bleeding. Petechiae as well, right worse than left . Lungs: Lungs clear to auscultation. No wheezing, rhonchi, rales. Heart: RRR without murmur, gallop, or rubs. No ectopy. Health Maintenance List DTAP,TDAP,TD(1 - Tdap) due on 01/24/1968 LDL CHOLESTEROL due on 04/22/2016 INFLUENZA(1) due on 11/15/2017 STATIN MED ADHERENCE due on 11/15/2017 MAMMOGRAM due on 03/13/2018 COLORECTAL CANCER SCREENING,SEE MODIFIER due on 06/16/2018 ANNUAL PCP TEAM CHRONIC DISEASE VISIT due on 11/06/2018 BLOOD PRESSURE CONTROLLED due on 11/06/2018 LIPID SCREEN due on 04/22/2020 DIABETES SCREEN due on 09/05/2020 BONE DENSITY Completed ADULT PREVNAR-13 Completed HEPATITIS C SCREENING Completed PNEUMOVAX AGE 65 AND OVER WITH 5YR LOOKBACK Completed ASSESSMENT/PLAN: 1. Bruising - ICD9: 924.9, ICD10: T14.8XXA (primary diagnosis) Likely 2/2 xarelto and plavix. Will check CBC and call with results. Advised caution as slight bumps can cause bleeding on these medications. To call with worsening symptoms. - CBC + DIFF 2. Petechiae - ICD9: 782.7, ICD10: R23.3 See above. - CBC + DIFF Cathi Hayes MD CNOV Observed: 11/10/2017 Status: COMPLETED Source: [place] 1:20 PM [facility] REPOSITORY Office Visit (FAMPWS) KATHY PURI ([id number]) 1950 F Date Time Provider Department 11/10/17 1:20 PM CATHI HAYES) FAMPWS During your visit today, we recorded the following information about you: Pulse Respiration Blood pressure Weight 54/minute 12/minute 136/74 73.9 kg Cathi Hayes MD 11/10/2017 1:46 PM Signed Chief Complaint Patient presents with: blood blisters on arms x 4 days HPI Kathy Puri is a 67 year old female who presents here today for Above Complaints.. States that she noticed bruising on her forearms bilaterally without obvious cause. Taking Xarelto and plavix as prescribed without other bruising or bleeding. Denies recent trauma or falls. Has not had any recent lightheadedness/vertigo, SOB, syncope. Past medical history, appointments, medications, allergies reviewed. Previous Medical History PAST MEDICAL HISTORY Diagnosis Date - Atrial fibrillation (HCC) 07/16/2011 - CAD (coronary artery disease) seeing Dr. Treviño - Chronic lower back pain - DDD (degenerative disc disease), lumbar - Depression - GERD (gastroesophageal reflux disease) - H/O heart artery stent 7 Stents, last 2006 - Hypertension - IBS (irritable bowel syndrome) - Myocardial infarction ([facility]) x2 - Obesity - Ovarian cancer ([facility]) 09/13/[address] Blank - PAD (peripheral artery disease) ([facility]) Dr. Sathish Gar - Restless leg syndrome 07/16/2011 - Sleep apnea on Bipap - Tobacco use - Vulvovaginitis 07/16/2011 Previous Surgical History PAST SURGICAL HISTORY Procedure Laterality Date - CATARACT EXTRACTION HX Bilateral 03/2017 - COLONOSCOP W/ OR W/O BRSH SPEC 06/16/13 Colonoscopy - EGD W/O OR W/BRUSH/WASH 06/16/13 EGD - REMOVE TONSILS/ADENOIDS,<12 Y/O - REVSC OPN/PRG FEM/POP W/ANGIOPLASTY UNI Right 01/05/15 - REVSC OPN/PRG FEM/POP W/ANGIOPLASTY UNI Left 02-15-15 - REVSC OPN/PRG FEM/POP W/ANGIOPLASTY [facility] Left 09/23/2016 - REVSC OPN/PRQ FEM/POP W/STNT/ANGIOP [facility] 11-26-13 - REVSC OPN/PRQ FEM/POP W/STNT/ANGIOP [facility] 01/07/14 - STENTS (SPECIFY) 1999 AND 2006 7 Stents - TOTAL ABD HYSTEREC+LTD NODES 2012 DIOMEDES BSO ovarian cancer Family History FAMILY HISTORY Problem Relation Age of Onset - Heart Father [place] - Stroke Maternal Grandfather - Hypertension Sister - Psychiatry Sister Patient Allergies ALLERGIES No Known Allergies Current Medications Current Outpatient Prescriptions on File Prior to Visit: atorvastatin (LIPITOR) 40 mg tablet Take 1 tablet by mouth once daily. ranitidine (ZANTAC) 150 mg tablet Take 1 tablet by mouth twice daily. amitriptyline (ELAVIL) 25 mg tablet TAKE 3 TABLETS DAILY AT BEDTIME amoxicillin-clavulanic acid (AUGMENTIN) 875-125 mg per tablet Take 1 tablet by mouth twice daily for 10 days. Cholecalciferol, Vitamin D3, (VITAMIN D) 1,000 unit cap Take 1,000 Units by mouth once daily. isosorbide mononitrate ER (IMDUR) 60 mg 24 hr tablet Take 1 tablet by mouth once daily. metoprolol tartrate, short acting, (LOPRESSOR) 100 mg tablet Take 1 tablet by mouth twice daily. citalopram (CELEXA) 40 mg tablet TAKE 1 TABLET EVERY DAY ascorbic acid, vitamin C, (VITAMIN C) 500 mg tablet Take 500 mg by mouth once daily. ADVAIR DISKUS 500-50 mcg/dose dsdv Inhale 1 Puff as instructed once daily. ALBUTEROL SULFATE (VENTOLIN HFA INHALATION) Inhale 1 Puff as instructed as needed. amLODIPine (NORVASC) 10 mg tablet Take 1 tablet by mouth once daily. dicyclomine (BENTYL) 10 mg capsule Take 1 capsule by mouth before meals and at bedtime. pramipexole (MIRAPEX) 1 mg tablet Take 1 tablet by mouth daily at bedtime. clopidogrel (PLAVIX) 75 mg tablet Take 1 tablet by mouth once daily. amiodarone (PACERONE) 200 mg tablet Take 1 tablet by mouth once daily. Multivitamin capsule Take 1 capsule by mouth once daily. VITAMIN E, BULK, MISC lisinopril (ZESTRIL, PRINIVIL) 40 mg tablet Take 1 tablet by mouth once daily. acetaminophen (TYLENOL EXTRA STRENGTH) 500 mg tablet Take 500 mg by mouth every 6 hours as needed. diphenoxylate-atropine sulfate (LOMOTIL) 2.5-0.025 mg/5 mL liquid Take 5 mL by mouth four times daily as needed. rivaroxaban (XARELTO) 20 mg tablet Take 20 mg by mouth daily with dinner. MELATONIN ORAL Take by mouth once daily. lidocaine (LIDODERM) 5 %(700 mg/patch) Apply 1 Patch as directed every 12 hours. nitroglycerin sublingual (NITROSTAT) 0.4 mg SL tablet Dissolve 1 tablet under the tongue as needed. FOR CHEST PAIN. IF NO RELIEF CALL 911 No current facility-administered medications on file prior to visit. Social History Social History Marital status: Spouse name: Years of education: Number of children: 3 Occupational History Occupation Employer Comment Retired Social History Main Topics Smoking status: Former Smoker Packs/day: 0.00 Years: 47.00 Types: Cigarettes Quit date: 04/24/2017 Smokeless tobacco: Never Used Comment: <5 per day Alcohol use: No Drug use: No Sexual activity: No Comment: Postmenopausal Review of Symptoms REVIEW OF SYSTEMS GENERAL: No weight loss, malaise or fevers RESPIRATORY: Negative for cough, hemoptysis, wheezing, COPD, dyspnea or shortness of breath CARDIOVASCULAR: Negative for chest pain, leg swelling, hypertension, CHF or palpitations GI: No nausea, vomiting, or diarrhea SKIN: See HPI EXAM: BP 136/74 Pulse (!) 54 Resp 12 Wt 73.9 kg (163 lb) BMI 31.18 kg/m? General Appearance: Well appearing, alert, in no acute distress, well-hydrated, well nourished.. Skin: bruising on forearms bilaterally without signs of infection, hematoma or active bleeding. Petechiae as well, right worse than left . Lungs: Lungs clear to auscultation. No wheezing, rhonchi, rales. Heart: RRR without murmur, gallop, or rubs. No ectopy. Health Maintenance List DTAP,TDAP,TD(1 - Tdap) due on 01/24/1968 LDL CHOLESTEROL due on 04/22/2016 INFLUENZA(1) due on 11/15/2017 STATIN MED ADHERENCE due on 11/15/2017 MAMMOGRAM due on 03/13/2018 COLORECTAL CANCER SCREENING,SEE MODIFIER due on 06/16/2018 ANNUAL PCP TEAM CHRONIC DISEASE VISIT due on 11/06/2018 BLOOD PRESSURE CONTROLLED due on 11/06/2018 LIPID SCREEN due on 04/22/2020 DIABETES SCREEN due on 09/05/2020 BONE DENSITY Completed ADULT PREVNAR-13 Completed HEPATITIS C SCREENING Completed PNEUMOVAX AGE 65 AND OVER WITH 5YR LOOKBACK Completed ASSESSMENT/PLAN: 1. Bruising - ICD9: 924.9, ICD10: T14.8XXA (primary diagnosis) Likely 2/2 xarelto and plavix. Will check CBC and call with results. Advised caution as slight bumps can cause bleeding on these medications. To call with worsening symptoms. - CBC + DIFF 2. Petechiae - ICD9: 782.7, ICD10: R23.3 See above. - CBC + DIFF Cathi Hayes MD Referring Provider: SELF [200] Allergies As of Date: 11/10/2017 (No Known Allergies) Date Reviewed: 11/10/2017 Reviewed by: Adriano Toscano Ma - Fully Assessed Reason for Visit: blood blisters on arms x 4 days [Other] Primary Visit Diagnosis:Bruising [T14.8XXA] Other Visit Diagnosis:Petechiae [R23.3] Order(s):CBC + DIFF [SQCBCDIF] Order #: [id number] FUTURE Prescriptions as of 11/10/2017 Sig: ATORVASTATIN 40 MG TABLET Take 1 tablet by mouth once d* RANITIDINE 150 MG TABLET Take 1 tablet by mouth twice * AMITRIPTYLINE 25 MG TABLET TAKE 3 TABLETS DAILY AT BEDTI* AMOXICILLIN 875 MG-POTASSIUM * Take 1 tablet by mouth twice * CHOLECALCIFEROL (VITAMIN D3) * Take 1,000 Units by mouth onc* ISOSORBIDE MONONITRATE ER 60 * Take 1 tablet by mouth once d* METOPROLOL TARTRATE 100 MG TA* Take 1 tablet by mouth twice * CITALOPRAM 40 MG TABLET TAKE 1 TABLET EVERY DAY ASCORBIC ACID (VITAMIN C) 500* Take 500 mg by mouth once elliott* ADVAIR DISKUS 500 MCG-50 MCG/* Inhale 1 Puff as instructed o* VENTOLIN HFA INHALATION Inhale 1 Puff as instructed a* AMLODIPINE 10 MG TABLET Take 1 tablet by mouth once d* DICYCLOMINE 10 MG CAPSULE Take 1 capsule by mouth befor* PRAMIPEXOLE 1 MG TABLET Take 1 tablet by mouth daily * CLOPIDOGREL 75 MG TABLET Take 1 tablet by mouth once d* AMIODARONE 200 MG TABLET Take 1 tablet by mouth once d* MULTIVITAMIN CAPSULE Take 1 capsule by mouth once * VITAMIN E (BULK) MISC LISINOPRIL 40 MG TABLET Take 1 tablet by mouth once d* ACETAMINOPHEN 500 MG TABLET Take 500 mg by mouth every 6 * DIPHENOXYLATE-ATROPINE 2.5 MG* Take 5 mL by mouth four times* RIVAROXABAN 20 MG TABLET Take 20 mg by mouth daily wit* MELATONIN ORAL Take by mouth once daily. LIDOCAINE 5 % TOPICAL PATCH Apply 1 Patch as directed orly* NITROGLYCERIN 0.4 MG SUBLINGU* Dissolve 1 tablet under the t* Problem List As Of Date 11/10/2017 Noted Resolved Vulvovaginitis [N76.0] INVALID FOR*01/13/2014 Atrial fibrillation [I48.91] INVALID FOR* Restless leg syndrome [G25.81] INVALID FOR* Hypertension [I10] Heart disease [I51.9] 01/29/2017 More... Pelvic mass in female [R19.00] INVALID FOR*05/07/2013 PAD (peripheral artery disease) [I73.9] INVALID FOR* History of myocardial infarction [I25.2] INVALID FOR* Ovarian cancer [C56.9] INVALID FOR*05/07/2013 Cellulitis, abdominal wall [L03.311] INVALID FOR*01/29/2017 Personal history of malignant neoplasm of ovary*INVALID FOR* Chronic pain [G89.29] INVALID FOR* Lumbar radiculopathy [M54.16] INVALID FOR* DDD (degenerative disc disease), lumbar [M51.36]INVALID FOR* Myofascial pain [M79.1] INVALID FOR* Pelvic pain INVALID FOR*01/02/2016 Urinary frequency [R35.0] INVALID FOR* Hematuria, microscopic [R31.29] INVALID FOR* Nocturia [R35.1] INVALID FOR* S/P coronary artery stent placement [Z95.5] INVALID FOR* Tobacco abuse [Z72.0] INVALID FOR* Family history of ischemic heart disease [Z82.4*INVALID FOR* Dyslipidemia [E78.5] INVALID FOR* Shortness of breath [R06.02] INVALID FOR* Pain of left lower extremity [M79.605] INVALID FOR* CAD (coronary artery disease) [I25.10] GERD (gastroesophageal reflux disease) [K21.9] Disposition: Return if symptoms worsen or fail to improve. Follow-up and Disposition History Recorded Encounter Status:Closed by CATHI HAYES MD on 11/10/17 FEDERICO Observed: 11/10/2017 Status: COMPLETED Source: [place] 12:00 AM [facility] REPOSITORY Telephone (FAMPWS) JAXSONKATHY Rojas ([id number]) 1950 F Date Time Provider Department 11/10/17 [facility]AYES[facility] During your visit today, we recorded the following information about you: Bhavesh Snow, RN, RN 11/10/2017 10:34 AM Signed Pt calls stating she has blood blisters on her arms x 4 days. States one opened and is sore, the others are intact and tender to touch. Pt denies injury, contact with anything unusual. Pt on blood thinners. Scheduled same day appt with PCP. Allergies As of Date: 11/10/2017 (No Known Allergies) Date Reviewed: 11/10/2017 Reviewed by: Adriano Toscano Ma - Fully Assessed Reason for Visit: Blood Blisters [Other] Prescriptions as of 11/10/2017 Sig: ATORVASTATIN 40 MG TABLET Take 1 tablet by mouth once d* RANITIDINE 150 MG TABLET Take 1 tablet by mouth twice * AMITRIPTYLINE 25 MG TABLET TAKE 3 TABLETS DAILY AT BEDTI* AMOXICILLIN 875 MG-POTASSIUM * Take 1 tablet by mouth twice * CHOLECALCIFEROL (VITAMIN D3) * Take 1,000 Units by mouth onc* ISOSORBIDE MONONITRATE ER 60 * Take 1 tablet by mouth once d* METOPROLOL TARTRATE 100 MG TA* Take 1 tablet by mouth twice * CITALOPRAM 40 MG TABLET TAKE 1 TABLET EVERY DAY ASCORBIC ACID (VITAMIN C) 500* Take 500 mg by mouth once elliott* ADVAIR DISKUS 500 MCG-50 MCG/* Inhale 1 Puff as instructed o* VENTOLIN HFA INHALATION Inhale 1 Puff as instructed a* AMLODIPINE 10 MG TABLET Take 1 tablet by mouth once d* DICYCLOMINE 10 MG CAPSULE Take 1 capsule by mouth befor* PRAMIPEXOLE 1 MG TABLET Take 1 tablet by mouth daily * CLOPIDOGREL 75 MG TABLET Take 1 tablet by mouth once d* AMIODARONE 200 MG TABLET Take 1 tablet by mouth once d* MULTIVITAMIN CAPSULE Take 1 capsule by mouth once * VITAMIN E (BULK) MISC LISINOPRIL 40 MG TABLET Take 1 tablet by mouth once d* ACETAMINOPHEN 500 MG TABLET Take 500 mg by mouth every 6 * DIPHENOXYLATE-ATROPINE 2.5 MG* Take 5 mL by mouth four times* RIVAROXABAN 20 MG TABLET Take 20 mg by mouth daily wit* MELATONIN ORAL Take by mouth once daily. LIDOCAINE 5 % TOPICAL PATCH Apply 1 Patch as directed orly* NITROGLYCERIN 0.4 MG SUBLINGU* Dissolve 1 tablet under the t* Problem List As Of Date 11/10/2017 Noted Resolved Vulvovaginitis [N76.0] INVALID FOR*01/13/2014 Atrial fibrillation [I48.91] INVALID FOR* Restless leg syndrome [G25.81] INVALID FOR* Hypertension [I10] Heart disease [I51.9] 01/29/2017 More... Pelvic mass in female [R19.00] INVALID FOR*05/07/2013 PAD (peripheral artery disease) [I73.9] INVALID FOR* History of myocardial infarction [I25.2] INVALID FOR* Ovarian cancer [C56.9] INVALID FOR*05/07/2013 Cellulitis, abdominal wall [L03.311] INVALID FOR*01/29/2017 Personal history of malignant neoplasm of ovary*INVALID FOR* Chronic pain [G89.29] INVALID FOR* Lumbar radiculopathy [M54.16] INVALID FOR* DDD (degenerative disc disease), lumbar [M51.36]INVALID FOR* Myofascial pain [M79.1] INVALID FOR* Pelvic pain INVALID FOR*01/02/2016 Urinary frequency [R35.0] INVALID FOR* Hematuria, microscopic [R31.29] INVALID FOR* Nocturia [R35.1] INVALID FOR* S/P coronary artery stent placement [Z95.5] INVALID FOR* Tobacco abuse [Z72.0] INVALID FOR* Family history of ischemic heart disease [Z82.4*INVALID FOR* Dyslipidemia [E78.5] INVALID FOR* Shortness of breath [R06.02] INVALID FOR* Pain of left lower extremity [M79.605] INVALID FOR* CAD (coronary artery disease) [I25.10] GERD (gastroesophageal reflux disease) [K21.9] Encounter Status:Closed by BHAVESH SNOW on 11/10/17 JEFF Observed: 11/06/2017 Status: COMPLETED Source: [place] 4:20 PM [facility] REPOSITORY Office Visit (FAMPWS) KATHY PURI ([id number]) 1950 F Date Time Provider Department 11/06/17 4:20 PM [facility] During your visit today, we recorded the following information about you: Pulse Respiration Blood pressure Weight 76/minute 16/minute 118/72 73.2 kg Fariha Gudino MD 11/07/2017 4:25 PM Signed Chief Complaint Patient presents with: Abdominal Pain: x1 day HPI Kathy Rojas Puri is a 67 year old female who presents here today for an acute visit. Abdominal pain - Diagnosed with IBS 20 years ago, she occasionally has flare ups that medication will control. Pain started yesterday morning and felt on the verge of severe menstrual cramps and labor. States that none of her medications are really helping her. Pain located mid lower abdomen, rates pain a 6/10 currently and described as sore and tender. Denies any vomiting. Admits to being nauseas and having minimal diarrhea. Doesn't know if she has any blood in her stool. Colonoscopy in 2013; did show multiple diverticuli Past medical history, appointments, medications, allergies reviewed. Previous Medical History PAST MEDICAL HISTORY Diagnosis Date - Atrial fibrillation (HCC) 07/16/2011 - CAD (coronary artery disease) seeing Dr. Treviño - Chronic lower back pain - DDD (degenerative disc disease), lumbar - Depression - GERD (gastroesophageal reflux disease) - H/O heart artery stent 7 Stents, last 2006 - Hypertension - IBS (irritable bowel syndrome) - Myocardial infarction ([facility]) x2 - Obesity - Ovarian cancer ([facility]) 09/13/[address] Blank - PAD (peripheral artery disease) ([facility]) Dr. Sathish Gar - Restless leg syndrome 07/16/2011 - Sleep apnea on Bipap - Tobacco use - Vulvovaginitis 07/16/2011 Previous Surgical History PAST SURGICAL HISTORY Procedure Laterality Date - CATARACT EXTRACTION HX Bilateral 03/2017 - COLONOSCOP W/ OR W/O BRSH SPEC 06/16/13 Colonoscopy - EGD W/O OR W/BRUSH/WASH 06/16/13 EGD - REMOVE TONSILS/ADENOIDS,<12 Y/O - REVSC OPN/PRG FEM/POP W/ANGIOPLASTY UNI Right 01/05/15 - REVSC OPN/PRG FEM/POP W/ANGIOPLASTY UNI Left 02-15-15 - REVSC OPN/PRG FEM/POP W/ANGIOPLASTY UNI Left 09/23/2016 - REVSC OPN/PRQ FEM/POP W/STNT/ANGIOP SM VSL 11-26-13 - REVSC OPN/PRQ FEM/POP W/STNT/ANGIOP VSL 01/07/14 - STENTS (SPECIFY) 1999 AND 2006 7 Stents - TOTAL ABD HYSTEREC+LTD NODES 2012 DIOMEDES BSO ovarian cancer Family History FAMILY HISTORY Problem Relation Age of Onset - Heart Father [place] - Stroke Maternal Grandfather - Hypertension Sister - Psychiatry Sister Patient Allergies ALLERGIES No Known Allergies Current Medications Current Outpatient Prescriptions on File Prior to Visit: Cholecalciferol, Vitamin D3, (VITAMIN D) 1,000 unit cap Take 1,000 Units by mouth once daily. ranitidine (ZANTAC) 150 mg tablet TAKE 1 TABLET TWICE DAILY atorvastatin (LIPITOR) 40 mg tablet Take 1 tablet by mouth once daily. isosorbide mononitrate ER (IMDUR) 60 mg 24 hr tablet Take 1 tablet by mouth once daily. metoprolol tartrate, short acting, (LOPRESSOR) 100 mg tablet Take 1 tablet by mouth twice daily. citalopram (CELEXA) 40 mg tablet TAKE 1 TABLET EVERY DAY amitriptyline (ELAVIL) 25 mg tablet TAKE 3 TABLETS DAILY AT BEDTIME ascorbic acid, vitamin C, (VITAMIN C) 500 mg tablet Take 500 mg by mouth once daily. ADVAIR DISKUS 500-50 mcg/dose dsdv Inhale 1 Puff as instructed once daily. ALBUTEROL SULFATE (VENTOLIN HFA INHALATION) Inhale 1 Puff as instructed as needed. amLODIPine (NORVASC) 10 mg tablet Take 1 tablet by mouth once daily. dicyclomine (BENTYL) 10 mg capsule Take 1 capsule by mouth before meals and at bedtime. pramipexole (MIRAPEX) 1 mg tablet Take 1 tablet by mouth daily at bedtime. clopidogrel (PLAVIX) 75 mg tablet Take 1 tablet by mouth once daily. amiodarone (PACERONE) 200 mg tablet Take 1 tablet by mouth once daily. Multivitamin capsule Take 1 capsule by mouth once daily. VITAMIN E, BULK, MISC lisinopril (ZESTRIL, PRINIVIL) 40 mg tablet Take 1 tablet by mouth once daily. acetaminophen (TYLENOL EXTRA STRENGTH) 500 mg tablet Take 500 mg by mouth every 6 hours as needed. diphenoxylate-atropine sulfate (LOMOTIL) 2.5-0.025 mg/5 mL liquid Take 5 mL by mouth four times daily as needed. rivaroxaban (XARELTO) 20 mg tablet Take 20 mg by mouth daily with dinner. MELATONIN ORAL Take by mouth once daily. lidocaine (LIDODERM) 5 %(700 mg/patch) Apply 1 Patch as directed every 12 hours. nitroglycerin sublingual (NITROSTAT) 0.4 mg SL tablet Dissolve 1 tablet under the tongue as needed. FOR CHEST PAIN. IF NO RELIEF CALL 911 No current facility-administered medications on file prior to visit. Social History Social History Marital status: Spouse name: Years of education: Number of children: 3 Occupational History Occupation Employer Comment Retired Social History Main Topics Smoking status: Former Smoker Packs/day: 0.00 Years: 47.00 Types: Cigarettes Quit date: 04/24/2017 Smokeless tobacco: Never Used Comment: <5 per day Alcohol use: No Drug use: No Sexual activity: No Comment: Postmenopausal EXAM: BP 118/72 (BP Site: Right Arm, BP Position: Sitting, BP Cuff Size: Regular Adult) Pulse 76 Resp 16 Wt 73.2 kg (161 lb 6.4 oz) BMI 30.87 kg/m? General Appearance: Well appearing, alert, in no acute distress, well-hydrated, well nourished.. Lungs: Lungs clear to auscultation. No wheezing, rhonchi, rales. Heart: RRR without murmur, gallop, or rubs. No ectopy. Abdomen: soft, normal bowel sounds, mild LLQ tenderness, no guarding or rebound. Health Maintenance List BLOOD PRESSURE CONTROLLED due on 1967 DTAP,TDAP,TD(1 - Tdap) due on 01/24/1968 LDL CHOLESTEROL due on 04/22/2016 INFLUENZA(1) due on 11/15/2017 STATIN MED ADHERENCE due on 11/15/2017 MAMMOGRAM due on 03/13/2018 COLORECTAL CANCER SCREENING,SEE MODIFIER due on 06/16/2018 ANNUAL PCP TEAM CHRONIC DISEASE VISIT due on 10/15/2018 LIPID SCREEN due on 04/22/2020 DIABETES SCREEN due on 09/05/2020 BONE DENSITY Completed ADULT PREVNAR-13 Completed HEPATITIS C SCREENING Completed PNEUMOVAX AGE 65 AND OVER WITH 5YR LOOKBACK Completed Data reviewed None ASSESSMENT/PLAN: 1. Diverticulitis - ICD9: 562.11, ICD10: K57.92 Augmentin, advance diet as able Call if not improving in 2-4 days I agree with the Chief Complaint, ROS, and Past Histories independently gathered by the clinical support assistant and the remaining scribed note accurately describes my personal service to the patient. Fariha Gudino MD The documentation for this note was completed by Alberta Christine Ma acting as scribe for Fariha Gudino MD. November 06, 2017 4:04 PM. Referring Provider: SELF [200] Allergies As of Date: 11/06/2017 (No Known Allergies) Date Reviewed: 11/06/2017 Reviewed by: Alberta Christine Ma - Fully Assessed Reason for Visit: Abdominal Pain [1] Cmt: x1 day Primary Visit Diagnosis:Diverticulitis [K57.92] Order(s):amoxicillin-clavulanic acid (AUGMENTIN) 875-125 mg per tabletTake 1 tablet by mouth twice daily for 10 days.Disp: 14 tabletRfl: 0 Prescriptions as of 11/06/2017 Sig: CHOLECALCIFEROL (VITAMIN D3) * Take 1,000 Units by mouth onc* X RANITIDINE 150 MG TABLET TAKE 1 TABLET TWICE DAILY X ATORVASTATIN 40 MG TABLET Take 1 tablet by mouth once d* ISOSORBIDE MONONITRATE ER 60 * Take 1 tablet by mouth once d* METOPROLOL TARTRATE 100 MG TA* Take 1 tablet by mouth twice * CITALOPRAM 40 MG TABLET TAKE 1 TABLET EVERY DAY X AMITRIPTYLINE 25 MG TABLET TAKE 3 TABLETS DAILY AT BEDTI* ASCORBIC ACID (VITAMIN C) 500* Take 500 mg by mouth once elliott* ADVAIR DISKUS 500 MCG-50 MCG/* Inhale 1 Puff as instructed o* VENTOLIN HFA INHALATION Inhale 1 Puff as instructed a* AMLODIPINE 10 MG TABLET Take 1 tablet by mouth once d* DICYCLOMINE 10 MG CAPSULE Take 1 capsule by mouth befor* PRAMIPEXOLE 1 MG TABLET Take 1 tablet by mouth daily * CLOPIDOGREL 75 MG TABLET Take 1 tablet by mouth once d* AMIODARONE 200 MG TABLET Take 1 tablet by mouth once d* MULTIVITAMIN CAPSULE Take 1 capsule by mouth once * VITAMIN E (BULK) MISC LISINOPRIL 40 MG TABLET Take 1 tablet by mouth once d* ACETAMINOPHEN 500 MG TABLET Take 500 mg by mouth every 6 * DIPHENOXYLATE-ATROPINE 2.5 MG* Take 5 mL by mouth four times* RIVAROXABAN 20 MG TABLET Take 20 mg by mouth daily wit* MELATONIN ORAL Take by mouth once daily. LIDOCAINE 5 % TOPICAL PATCH Apply 1 Patch as directed orly* NITROGLYCERIN 0.4 MG SUBLINGU* Dissolve 1 tablet under the t* AMOXICILLIN 875 MG-POTASSIUM * Take 1 tablet by mouth twice * Problem List As Of Date 11/06/2017 Noted Resolved Vulvovaginitis [N76.0] INVALID FOR*01/13/2014 Atrial fibrillation [I48.91] INVALID FOR* Restless leg syndrome [G25.81] INVALID FOR* Hypertension [I10] Heart disease [I51.9] 01/29/2017 More... Pelvic mass in female [R19.00] INVALID FOR*05/07/2013 PAD (peripheral artery disease) [I73.9] INVALID FOR* History of myocardial infarction [I25.2] INVALID FOR* Ovarian cancer [C56.9] INVALID FOR*05/07/2013 Cellulitis, abdominal wall [L03.311] INVALID FOR*01/29/2017 Personal history of malignant neoplasm of ovary*INVALID FOR* Chronic pain [G89.29] INVALID FOR* Lumbar radiculopathy [M54.16] INVALID FOR* DDD (degenerative disc disease), lumbar [M51.36]INVALID FOR* Myofascial pain [M79.1] INVALID FOR* Pelvic pain INVALID FOR*01/02/2016 Urinary frequency [R35.0] INVALID FOR* Hematuria, microscopic [R31.29] INVALID FOR* Nocturia [R35.1] INVALID FOR* S/P coronary artery stent placement [Z95.5] INVALID FOR* Tobacco abuse [Z72.0] INVALID FOR* Family history of ischemic heart disease [Z82.4*INVALID FOR* Dyslipidemia [E78.5] INVALID FOR* Shortness of breath [R06.02] INVALID FOR* Pain of left lower extremity [M79.605] INVALID FOR* CAD (coronary artery disease) [I25.10] GERD (gastroesophageal reflux disease) [K21.9] Prescriptions ordered this encounter Disp Refills Start End AMOXICILLIN 875 MG-POTASSIUM CLAVULA* 14 t* 0 11/06/2017 11/16/2017 Route: ORAL Sig: Take 1 tablet by mouth twice daily for 10 days. Medications Discontinued During This Encounter Ketorolac Tromethamine (ACLUAR LS) 0* 0 05/15/2017 11/06/2017 Class: Historical Med Route: LEFT EYE Sig: Use 1 Drop in the left eye four times daily. 3 days before surgery and continue after surgery. Disc: Course of therapy completed Disposition: Return if symptoms worsen or fail to improve. Follow-up and Disposition History Recorded Encounter Status:Closed by FARIHA GUDINO MD on 11/07/17 [place]GRESS Observed: 11/06/2017 Status: COMPLETED Source: [place] 4:[address] [facility] [place] REPOSITORY O ID: [id number] Author: Fariha Gudino Service: (none) Author Type: Physician Type: Progress Notes Filed: 11/07/2017 4:25 PM Note Text: Chief Complaint Patient presents with: Abdominal Pain: x1 day HPI Kathy Puri is a 67 year old female who presents here today for an acute visit. Abdominal pain - Diagnosed with IBS 20 years ago, she occasionally has flare ups that medication will control. Pain started yesterday morning and felt on the verge of severe menstrual cramps and labor. States that none of her medications are really helping her. Pain located mid lower abdomen, rates pain a 6/10 currently and described as sore and tender. Denies any vomiting. Admits to being nauseas and having minimal diarrhea. Doesn't know if she has any blood in her stool. Colonoscopy in 2013; did show multiple diverticuli Past medical history, appointments, medications, allergies reviewed. Previous Medical History PAST MEDICAL HISTORY Diagnosis Date - Atrial fibrillation (HCC) 07/16/2011 - CAD (coronary artery disease) seeing Dr. Treviño - Chronic lower back pain - DDD (degenerative disc disease), lumbar - Depression - GERD (gastroesophageal reflux disease) - H/O heart artery stent 7 Stents, last 2006 - Hypertension - IBS (irritable bowel syndrome) - Myocardial infarction (HCC) x2 - Obesity - Ovarian cancer (HCC) 09/13/[address] Blank - PAD (peripheral artery disease) ([facility]) Dr. Sathish Gar - Restless leg syndrome 07/16/2011 - Sleep apnea on Bipap - Tobacco use - Vulvovaginitis 07/16/2011 Previous Surgical History PAST SURGICAL HISTORY Procedure Laterality Date - CATARACT EXTRACTION HX Bilateral 03/2017 - COLONOSCOP W/ OR W/O BRSH SPEC 06/16/13 Colonoscopy - EGD W/O OR W/BRUSH/WASH 06/16/13 EGD - REMOVE TONSILS/ADENOIDS,<12 Y/O - REVSC OPN/PRG FEM/POP W/ANGIOPLASTY [facility] Right 01/05/15 - REVSC OPN/PRG FEM/POP W/ANGIOPLASTY [facility] Left 02-15-15 - REVSC OPN/PRG FEM/POP W/ANGIOPLASTY [facility] Left 09/23/2016 - REVSC OPN/PRQ FEM/POP W/STNT/ANGIOP VSL 11-26-13 - REVSC OPN/PRQ FEM/POP W/STNT/ANGIOP VS 01/07/14 - STENTS (SPECIFY) 1999 AND 2006 7 Stents - TOTAL ABD HYSTEREC+LTD NODES 2011 DIOMEDES BSO ovarian cancer Family History FAMILY HISTORY Problem Relation Age of Onset - Heart Father [place] - Stroke Maternal Grandfather - Hypertension Sister - Psychiatry Sister Patient Allergies ALLERGIES No Known Allergies Current Medications Current Outpatient Prescriptions on File Prior to Visit: Cholecalciferol, Vitamin D3, (VITAMIN D) 1,000 unit cap Take 1,000 Units by mouth once daily. ranitidine (ZANTAC) 150 mg tablet TAKE 1 TABLET TWICE DAILY atorvastatin (LIPITOR) 40 mg tablet Take 1 tablet by mouth once daily. isosorbide mononitrate ER (IMDUR) 60 mg 24 hr tablet Take 1 tablet by mouth once daily. metoprolol tartrate, short acting, (LOPRESSOR) 100 mg tablet Take 1 tablet by mouth twice daily. citalopram (CELEXA) 40 mg tablet TAKE 1 TABLET EVERY DAY amitriptyline (ELAVIL) 25 mg tablet TAKE 3 TABLETS DAILY AT BEDTIME ascorbic acid, vitamin C, (VITAMIN C) 500 mg tablet Take 500 mg by mouth once daily. ADVAIR DISKUS 500-50 mcg/dose dsdv Inhale 1 Puff as instructed once daily. ALBUTEROL SULFATE (VENTOLIN HFA INHALATION) Inhale 1 Puff as instructed as needed. amLODIPine (NORVASC) 10 mg tablet Take 1 tablet by mouth once daily. dicyclomine (BENTYL) 10 mg capsule Take 1 capsule by mouth before meals and at bedtime. pramipexole (MIRAPEX) 1 mg tablet Take 1 tablet by mouth daily at bedtime. clopidogrel (PLAVIX) 75 mg tablet Take 1 tablet by mouth once daily. amiodarone (PACERONE) 200 mg tablet Take 1 tablet by mouth once daily. Multivitamin capsule Take 1 capsule by mouth once daily. VITAMIN E, BULK, MISC lisinopril (ZESTRIL, PRINIVIL) 40 mg tablet Take 1 tablet by mouth once daily. acetaminophen (TYLENOL EXTRA STRENGTH) 500 mg tablet Take 500 mg by mouth every 6 hours as needed. diphenoxylate-atropine sulfate (LOMOTIL) 2.5-0.025 mg/5 mL liquid Take 5 mL by mouth four times daily as needed. rivaroxaban (XARELTO) 20 mg tablet Take 20 mg by mouth daily with dinner. MELATONIN ORAL Take by mouth once daily. lidocaine (LIDODERM) 5 %(700 mg/patch) Apply 1 Patch as directed every 12 hours. nitroglycerin sublingual (NITROSTAT) 0.4 mg SL tablet Dissolve 1 tablet under the tongue as needed. FOR CHEST PAIN. IF NO RELIEF CALL 911 No current facility-administered medications on file prior to visit. Social History Social History Marital status: Spouse name: Years of education: Number of children: 3 Occupational History Occupation Employer Comment Retired Social History Main Topics Smoking status: Former Smoker Packs/day: 0.00 Years: 47.00 Types: Cigarettes Quit date: 04/24/2017 Smokeless tobacco: Never Used Comment: <5 per day Alcohol use: No Drug use: No Sexual activity: No Comment: Postmenopausal EXAM: BP 118/72 (BP Site: Right Arm, BP Position: Sitting, BP Cuff Size: Regular Adult) Pulse 76 Resp 16 Wt 73.2 kg (161 lb 6.4 oz) BMI 30.87 kg/m? General Appearance: Well appearing, alert, in no acute distress, well-hydrated, well nourished.. Lungs: Lungs clear to auscultation. No wheezing, rhonchi, rales. Heart: RRR without murmur, gallop, or rubs. No ectopy. Abdomen: soft, normal bowel sounds, mild LLQ tenderness, no guarding or rebound. Health Maintenance List BLOOD PRESSURE CONTROLLED due on 1967 DTAP,TDAP,TD(1 - Tdap) due on 01/24/1968 LDL CHOLESTEROL due on 04/22/2016 INFLUENZA(1) due on 11/15/2017 STATIN MED ADHERENCE due on 11/15/2017 MAMMOGRAM due on 03/13/2018 COLORECTAL CANCER SCREENING,SEE MODIFIER due on 06/16/2018 ANNUAL PCP TEAM CHRONIC DISEASE VISIT due on 10/15/2018 LIPID SCREEN due on 04/22/2020 DIABETES SCREEN due on 09/05/2020 BONE DENSITY Completed ADULT PREVNAR-13 Completed HEPATITIS C SCREENING Completed PNEUMOVAX AGE 65 AND OVER WITH 5YR LOOKBACK Completed Data reviewed None ASSESSMENT/PLAN: 1. Diverticulitis - ICD9: 562.11, ICD10: K57.92 Augmentin, advance diet as able Call if not improving in 2-4 days I agree with the Chief Complaint, ROS, and Past Histories independently gathered by the clinical support assistant and the remaining scribed note accurately describes my personal service to the patient. Fariha Gudino MD The documentation for this note was completed by Alberta Christine Ma acting as scribe for Fariha Gudino MD. November 06, 2017 4:04 PM. PROGRESS Observed: 10/15/2017 Status: COMPLETED Source: [place] 9:[address] [facility] REPOSITORY HNO ID: [id number] Author: Corinne Grace Service: (none) Author Type: Nurse Practitioner Type: Progress Notes Filed: 10/15/2017 9:39 AM Note Text: 10/15/2017 Patient presents with: Abrasion: left side of nose started as pin prick and spread in two days SUBJECTIVE: This is a 67 year old that is here today for skin change on nose. She states that on 10/12, she thought that she had a small pimple the size of a pin prick. She admits to picking at it and it bled significantly. She is on plavix and xarelto, but a friend mentioned that she should not be on 2 blood thinners and the pharmacist she asked agreed. She discussed with her data entry technician Dr. Treviño's office and she was told that they work differently and he would like her to stay on both. She woke up the next morning to the left nostril being red, swollen and looking like an abrasion. It is tender to touch- sharp. She states that it was never blistered. She denies burning pain. It has not changed in size over the last 2 days. She denies fever or chills, CP, or SOB. She has not used anything to treat. PAST MEDICAL HISTORY Diagnosis Date - Atrial fibrillation ([facility]) 07/16/2011 - CAD (coronary artery disease) seeing Dr. Treviño - Chronic lower back pain - DDD (degenerative disc disease), lumbar - Depression - GERD (gastroesophageal reflux disease) - H/O heart artery stent 7 Stents, last 2006 - Hypertension - IBS (irritable bowel syndrome) - Myocardial infarction ([facility]) x2 - Obesity - Ovarian cancer ([facility]) 09/13/[address] Blank - PAD (peripheral artery disease) ([facility]) Dr. Sathish Gar - Restless leg syndrome 07/16/2011 - Sleep apnea on Bipap - Tobacco use - Vulvovaginitis 07/16/2011 ALLERGIES Patient has no known allergies. MEDICATIONS Current Outpatient Prescriptions: Cholecalciferol, Vitamin D3, (VITAMIN D) 1,000 unit cap Take 1,000 Units by mouth once daily. ranitidine (ZANTAC) 150 mg tablet TAKE 1 TABLET TWICE DAILY atorvastatin (LIPITOR) 40 mg tablet Take 1 tablet by mouth once daily. isosorbide mononitrate ER (IMDUR) 60 mg 24 hr tablet Take 1 tablet by mouth once daily. metoprolol tartrate, short acting, (LOPRESSOR) 100 mg tablet Take 1 tablet by mouth twice daily. citalopram (CELEXA) 40 mg tablet TAKE 1 TABLET EVERY DAY amitriptyline (ELAVIL) 25 mg tablet TAKE 3 TABLETS DAILY AT BEDTIME ascorbic acid, vitamin C, (VITAMIN C) 500 mg tablet Take 500 mg by mouth once daily. ADVAIR DISKUS 500-50 mcg/dose dsdv Inhale 1 Puff as instructed once daily. Ketorolac Tromethamine (ACLUAR LS) 0.4 % drop Use 1 Drop in the left eye four times daily. 3 days before surgery and continue after surgery. ALBUTEROL SULFATE (VENTOLIN HFA INHALATION) Inhale 1 Puff as instructed as needed. amLODIPine (NORVASC) 10 mg tablet Take 1 tablet by mouth once daily. dicyclomine (BENTYL) 10 mg capsule Take 1 capsule by mouth before meals and at bedtime. pramipexole (MIRAPEX) 1 mg tablet Take 1 tablet by mouth daily at bedtime. clopidogrel (PLAVIX) 75 mg tablet Take 1 tablet by mouth once daily. amiodarone (PACERONE) 200 mg tablet Take 1 tablet by mouth once daily. Multivitamin capsule Take 1 capsule by mouth once daily. VITAMIN E, BULK, MISC lisinopril (ZESTRIL, PRINIVIL) 40 mg tablet Take 1 tablet by mouth once daily. acetaminophen (TYLENOL EXTRA STRENGTH) 500 mg tablet Take 500 mg by mouth every 6 hours as needed. diphenoxylate-atropine sulfate (LOMOTIL) 2.5-0.025 mg/5 mL liquid Take 5 mL by mouth four times daily as needed. rivaroxaban (XARELTO) 20 mg tablet Take 20 mg by mouth daily with dinner. MELATONIN ORAL Take by mouth once daily. lidocaine (LIDODERM) 5 %(700 mg/patch) Apply 1 Patch as directed every 12 hours. nitroglycerin sublingual (NITROSTAT) 0.4 mg SL tablet Dissolve 1 tablet under the tongue as needed. FOR CHEST PAIN. IF NO RELIEF CALL 911 mupirocin (BACTROBAN) 2 % cream Apply 1 application to affected area three times daily for 10 days. No current facility-administered medications for this visit. Medications and allergies reviewed by this provider. SOCIAL HISTORY Social History Marital status: Spouse name: Years of education: Number of children: 3 Occupational History Occupation Employer Comment Retired Social History Main Topics Smoking status: Former Smoker Packs/day: 0.00 Years: 47.00 Types: Cigarettes Quit date: 04/24/2017 Smokeless tobacco: Never Used Comment: <5 per day Alcohol use: No Drug use: No Sexual activity: No Comment: Postmenopausal REVIEW OF SYSTEMS see HPI OBJECTIVE: BP 122/80 Pulse (!) 56 Resp 16 Wt 73.9 kg (163 lb) BMI 31.18 kg/m? . Vital signs reviewed by this provider. PHYSICAL EXAMINATION: General appearance: Well appearing, alert, in no acute distress, well-hydrated, well nourished. Skin: skin on left nostril erythematous, slightly swollen with an appearance of an abrasion with darker scabbed areas. Tender to touch. Rough texture. No vesicles or drainage. No heat to touch. Lungs: Lungs clear to auscultation. No wheezing, rhonchi, rales Heart: RRR without murmur, gallop, or rubs. No ectopy ASSESSMENT/PLAN: 1. Skin infection - ICD9: 686.9, ICD10: L08.9 - Begin treatment with bactroban - keep area clean and dry- wash with gentle soap, no scents. - No lymphangetic streaking, this was defined for patient to watch for and to seek medical care immediately if appears - Area of cellulitis defined, seek further attention if this area continues to enlarge - with description of sharp pain, did discuss shingles and what to watch for- immediately needs to be seen if going toward eye - follow up in 1 week or sooner if no improvement or worsening symptoms. Corinne Grace APRN.[facility] Observed: 10/15/2017 Status: COMPLETED Source: [place] 9:00 AM [facility] REPOSITORY Office Visit (FAMPWS) KATHY PURI ([id number]) 1950 F Date Time Provider Department 10/15/17 9:00 AM CORINNE GRACE ([facility]) FAMPWS During your visit today, we recorded the following information about you: Pulse Respiration Blood pressure Weight 56/minute 16/minute 122/80 73.9 kg Corinne Grace APRN.CNP 10/15/2017 9:39 AM Signed 10/15/2017 Patient presents with: Abrasion: left side of nose started as pin prick and spread in two days SUBJECTIVE: This is a 67 year old that is here today for skin change on nose. She states that on 10/12, she thought that she had a small pimple the size of a pin prick. She admits to picking at it and it bled significantly. She is on plavix and xarelto, but a friend mentioned that she should not be on 2 blood thinners and the pharmacist she asked agreed. She discussed with her data entry technician Dr. Treviño's office and she was told that they work differently and he would like her to stay on both. She woke up the next morning to the left nostril being red, swollen and looking like an abrasion. It is tender to touch- sharp. She states that it was never blistered. She denies burning pain. It has not changed in size over the last 2 days. She denies fever or chills, CP, or SOB. She has not used anything to treat. PAST MEDICAL HISTORY Diagnosis Date - Atrial fibrillation ([facility]) 07/16/2011 - CAD (coronary artery disease) seeing Dr. Treviño - Chronic lower back pain - DDD (degenerative disc disease), lumbar - Depression - GERD (gastroesophageal reflux disease) - H/O heart artery stent 7 Stents, last 2006 - Hypertension - IBS (irritable bowel syndrome) - Myocardial infarction ([facility]) x2 - Obesity - Ovarian cancer ([facility]) 09/13/[address] Blank - PAD (peripheral artery disease) ([facility]) Dr. Sathish aGr - Restless leg syndrome 07/16/2011 - Sleep apnea on Bipap - Tobacco use - Vulvovaginitis 07/16/2011 ALLERGIES Patient has no known allergies. MEDICATIONS Current Outpatient Prescriptions: Cholecalciferol, Vitamin D3, (VITAMIN D) 1,000 unit cap Take 1,000 Units by mouth once daily. ranitidine (ZANTAC) 150 mg tablet TAKE 1 TABLET TWICE DAILY atorvastatin (LIPITOR) 40 mg tablet Take 1 tablet by mouth once daily. isosorbide mononitrate ER (IMDUR) 60 mg 24 hr tablet Take 1 tablet by mouth once daily. metoprolol tartrate, short acting, (LOPRESSOR) 100 mg tablet Take 1 tablet by mouth twice daily. citalopram (CELEXA) 40 mg tablet TAKE 1 TABLET EVERY DAY amitriptyline (ELAVIL) 25 mg tablet TAKE 3 TABLETS DAILY AT BEDTIME ascorbic acid, vitamin C, (VITAMIN C) 500 mg tablet Take 500 mg by mouth once daily. ADVAIR DISKUS 500-50 mcg/dose dsdv Inhale 1 Puff as instructed once daily. Ketorolac Tromethamine (ACLUAR LS) 0.4 % drop Use 1 Drop in the left eye four times daily. 3 days before surgery and continue after surgery. ALBUTEROL SULFATE (VENTOLIN HFA INHALATION) Inhale 1 Puff as instructed as needed. amLODIPine (NORVASC) 10 mg tablet Take 1 tablet by mouth once daily. dicyclomine (BENTYL) 10 mg capsule Take 1 capsule by mouth before meals and at bedtime. pramipexole (MIRAPEX) 1 mg tablet Take 1 tablet by mouth daily at bedtime. clopidogrel (PLAVIX) 75 mg tablet Take 1 tablet by mouth once daily. amiodarone (PACERONE) 200 mg tablet Take 1 tablet by mouth once daily. Multivitamin capsule Take 1 capsule by mouth once daily. VITAMIN E, BULK, MISC lisinopril (ZESTRIL, PRINIVIL) 40 mg tablet Take 1 tablet by mouth once daily. acetaminophen (TYLENOL EXTRA STRENGTH) 500 mg tablet Take 500 mg by mouth every 6 hours as needed. diphenoxylate-atropine sulfate (LOMOTIL) 2.5-0.025 mg/5 mL liquid Take 5 mL by mouth four times daily as needed. rivaroxaban (XARELTO) 20 mg tablet Take 20 mg by mouth daily with dinner. MELATONIN ORAL Take by mouth once daily. lidocaine (LIDODERM) 5 %(700 mg/patch) Apply 1 Patch as directed every 12 hours. nitroglycerin sublingual (NITROSTAT) 0.4 mg SL tablet Dissolve 1 tablet under the tongue as needed. FOR CHEST PAIN. IF NO RELIEF CALL 911 mupirocin (BACTROBAN) 2 % cream Apply 1 application to affected area three times daily for 10 days. No current facility-administered medications for this visit. Medications and allergies reviewed by this provider. SOCIAL HISTORY Social History Marital status: Spouse name: Years of education: Number of children: 3 Occupational History Occupation Employer Comment Retired Social History Main Topics Smoking status: Former Smoker Packs/day: 0.00 Years: 47.00 Types: Cigarettes Quit date: 04/24/2017 Smokeless tobacco: Never Used Comment: <5 per day Alcohol use: No Drug use: No Sexual activity: No Comment: Postmenopausal REVIEW OF SYSTEMS see HPI OBJECTIVE: BP 122/80 Pulse (!) 56 Resp 16 Wt 73.9 kg (163 lb) BMI 31.18 kg/m? . Vital signs reviewed by this provider. PHYSICAL EXAMINATION: General appearance: Well appearing, alert, in no acute distress, well-hydrated, well nourished. Skin: skin on left nostril erythematous, slightly swollen with an appearance of an abrasion with darker scabbed areas. Tender to touch. Rough texture. No vesicles or drainage. No heat to touch. Lungs: Lungs clear to auscultation. No wheezing, rhonchi, rales Heart: RRR without murmur, gallop, or rubs. No ectopy ASSESSMENT/PLAN: 1. Skin infection - ICD9: 686.9, ICD10: L08.9 - Begin treatment with bactroban - keep area clean and dry- wash with gentle soap, no scents. - No lymphangetic streaking, this was defined for patient to watch for and to seek medical care immediately if appears - Area of cellulitis defined, seek further attention if this area continues to enlarge - with description of sharp pain, did discuss shingles and what to watch for- immediately needs to be seen if going toward eye - follow up in 1 week or sooner if no improvement or worsening symptoms. Corinne Grace APRN.[facility] Referring Provider: SELF [[id number]] Allergies As of Date: 10/15/2017 (No Known Allergies) Date Reviewed: 10/15/2017 Reviewed by: Corinne ([facility]) Sugey - Fully Assessed Reason for Visit: Abrasion [1954] Cmt: left side of nose started as pin prick and spread in two days Primary Visit Diagnosis:Skin infection [L08.9] Order(s):mupirocin (BACTROBAN) 2 % creamApply 1 application to affected area three times daily for 10 days.Disp: 1 TubeRfl: 0 Prescriptions as of 10/15/2017 Sig: CHOLECALCIFEROL (VITAMIN D3) * Take 1,000 Units by mouth onc* RANITIDINE 150 MG TABLET TAKE 1 TABLET TWICE DAILY ATORVASTATIN 40 MG TABLET Take 1 tablet by mouth once d* ISOSORBIDE MONONITRATE ER 60 * Take 1 tablet by mouth once d* METOPROLOL TARTRATE 100 MG TA* Take 1 tablet by mouth twice * CITALOPRAM 40 MG TABLET TAKE 1 TABLET EVERY DAY AMITRIPTYLINE 25 MG TABLET TAKE 3 TABLETS DAILY AT BEDTI* ASCORBIC ACID (VITAMIN C) 500* Take 500 mg by mouth once elliott* ADVAIR DISKUS 500 MCG-50 MCG/* Inhale 1 Puff as instructed o* KETOROLAC 0.4 % EYE DROPS Use 1 Drop in the left eye fo* VENTOLIN HFA INHALATION Inhale 1 Puff as instructed a* AMLODIPINE 10 MG TABLET Take 1 tablet by mouth once d* DICYCLOMINE 10 MG CAPSULE Take 1 capsule by mouth befor* PRAMIPEXOLE 1 MG TABLET Take 1 tablet by mouth daily * CLOPIDOGREL 75 MG TABLET Take 1 tablet by mouth once d* AMIODARONE 200 MG TABLET Take 1 tablet by mouth once d* MULTIVITAMIN CAPSULE Take 1 capsule by mouth once * VITAMIN E (BULK) MISC LISINOPRIL 40 MG TABLET Take 1 tablet by mouth once d* ACETAMINOPHEN 500 MG TABLET Take 500 mg by mouth every 6 * DIPHENOXYLATE-ATROPINE 2.5 MG* Take 5 mL by mouth four times* RIVAROXABAN 20 MG TABLET Take 20 mg by mouth daily wit* MELATONIN ORAL Take by mouth once daily. LIDOCAINE 5 % TOPICAL PATCH Apply 1 Patch as directed orly* NITROGLYCERIN 0.4 MG SUBLINGU* Dissolve 1 tablet under the t* MUPIROCIN 2 % TOPICAL CREAM Apply 1 application to affect* Medication notes this encounter CIPROFLOXACIN 0.3 % EYE DROPS >> Velia Roy MA, MA 10/15/2017 8:58 AM >> VELIA ROY FriOct 15, 2017 8:58 AM No longer taking PREDNISOLONE ACETATE 1 % EYE DROPS,SUSPENSION >> Velia Roy MA, MA 10/15/2017 8:59 AM >> VELIA ROY FriOct 15, 2017 8:59 AM No longer taking Problem List As Of Date 10/15/2017 Noted Resolved Vulvovaginitis [N76.0] INVALID FOR*01/13/2014 Atrial fibrillation [I48.91] INVALID FOR* Restless leg syndrome [G25.81] INVALID FOR* Hypertension [I10] Heart disease [I51.9] 01/29/2017 More... Pelvic mass in female [R19.00] INVALID FOR*05/07/2013 PAD (peripheral artery disease) [I73.9] INVALID FOR* History of myocardial infarction [I25.2] INVALID FOR* Ovarian cancer [C56.9] INVALID FOR*05/07/2013 Cellulitis, abdominal wall [L03.311] INVALID FOR*01/29/2017 Personal history of malignant neoplasm of ovary*INVALID FOR* Chronic pain [G89.29] INVALID FOR* Lumbar radiculopathy [M54.16] INVALID FOR* DDD (degenerative disc disease), lumbar [M51.36]INVALID FOR* Myofascial pain [M79.1] INVALID FOR* Pelvic pain INVALID FOR*01/02/2016 Urinary frequency [R35.0] INVALID FOR* Hematuria, microscopic [R31.29] INVALID FOR* Nocturia [R35.1] INVALID FOR* S/P coronary artery stent placement [Z95.5] INVALID FOR* Tobacco abuse [Z72.0] INVALID FOR* Family history of ischemic heart disease [Z82.4*INVALID FOR* Dyslipidemia [E78.5] INVALID FOR* Shortness of breath [R06.02] INVALID FOR* Pain of left lower extremity [M79.605] INVALID FOR* CAD (coronary artery disease) [I25.10] GERD (gastroesophageal reflux disease) [K21.9] Prescriptions ordered this encounter Disp Refills Start End MUPIROCIN 2 % TOPICAL CREAM 1 Tu* 0 10/15/2017 10/25/2017 Route: TOPICAL Sig: Apply 1 application to affected area three times daily for 10 days. Medications Discontinued During This Encounter prednisoLONE acetate (PRED FORTE, EC* 1 05/15/2017 10/15/2017 Class: Historical Med Route: LEFT EYE Sig: Use 1 Drop in the left eye four times daily. 3 days before surgery and continue after surgery. Disc: Reason for discontinue is not on file. ciprofloxacin HCl (CILOXAN) 0.3 % op* 0 05/15/2017 10/15/2017 Class: Historical Med Route: LEFT EYE Sig: Use 1 Drop in the left eye four times daily. 3 days before surgery then continue after surgery. Disc: Reason for discontinue is not on file. Encounter Status:Closed by CORINNE GRACE on 10/15/17 CBC Collected: 09/05/2017 Status: F Source: [place] 9:44 AM [facility] REPOSITORY TYPE CODE TESTS RESULT OUT OF REFERENCE UNITS RANGE LAB WBC 3.70-11.00 k/uL WBC 7.69 LAB RBC 3.90-5.20 m/uL RBC 4.47 LAB HGB 11.5-15.5 g/dL Hemoglobin 13.4 LAB HCT 36.0-46.0 % Hematocrit 39.8 LAB MCV 80.0-100.0 fL MCV 89.0 LAB MCH 26.0-34.0 pG MCH 30.0 LAB MCHC 30.5-36.0 g/dL MCHC 33.7 LAB RDWCV 11.5-15.0 % RDW-CV 13.1 LAB PLTCT 150-400 k/uL Platelet Count 204 LAB MPV 9.0-12.7 fL MPV 11.9 LAB ABSNUC <0.01 k/uL Absolute nRBC <0.01 Performed By: #### CBC, CMP #### [facility] [address] [place] [address] COMP METABOLIC PANEL Collected: 09/05/2017 Status: F Source: [place] 9:44 AM [facility] REPOSITORY TYPE CODE TESTS RESULT OUT OF REFERENCE UNITS RANGE LAB TP 6.3-8.0 g/dL Protein, Total 6.5 LAB ALB 3.9-4.9 g/dL Albumin 3.9 LAB CA 8.5-10.2 mg/dL Calcium, Total 9.3 LAB TBIL 0.2-1.3 mg/dL Bilirubin, Total 0.2 LAB ALKP 32-117 U/L Alkaline Phosphatase 96 LAB AST 13-35 U/L AST 21 LAB GLU 74-99 mg/dL Glucose 98 Result Comment: The [place] [employer] Association (ADA) provides guidance for cutoff values for fasting glucose and random glucose. The ADA defines fasting as no caloric intake for at least 8 hours. Fas ting plasma glucose results between 100 to 125 mg/dL indicate increased risk for diabetes (prediabetes). Fasting plasma glucose results greater than or equal to 126 mg/dL meet the criteria for diagnosis of diabetes. In the absence of unequivocal hyperglycemia, results should be confirmed by repeat testing. In a patient with classic symptoms of hyperglycemia or hyperglycemic crisis, random plasma glucose results greater than or equal to 200 mg/dL meet the criteria for diagnosis of diabetes. Reference: Standards of Medical Care in Diabetes 2016, [place] [employer] Association. Diabetes Care. 2016.39(Suppl 1). LAB BUN 7-21 mg/dL BUN 16 LAB CRET 0.58-0.96 mg/dL Creatinine 0.91 LAB NA 136-144 mmol/L Sodium 140 LAB K 3.7-5.1 mmol/L Potassium 4.1 LAB CL 97-105 mmol/L Chloride 105 LAB CO2 22-30 mmol/L CO2 25 LAB AGAP 9-18 mmol/L Anion Gap 10 LAB ALT 7-38 U/L ALT 9 LAB GFRAA eGFR- Amer. >60 LAB GFRNAA . eGFR-All Other Races >60 Result Comment: eGFR (Estimated GFR) Units of measure: mL/min/1.73 meters squared eGFR is derived from the reexpressed MDRD Study equation using the following parameters: serum creatinine, age, gender and race. The creatinine assay has been calibrated to be traceable to IDMS. An eGFR <60 mL/min/1.73m2 for >3 months is consistent with chronic kidney disease. Refer to KDOQI guidelines for clinical interpretation. In patients with unstable renal function, e.g. those with acute kidney injury, the eGFR may not accurately reflect actual GFR. Performed By: #### CBC, CMP #### [facility] [address], [place] [address] HEMOGLOBIN A1C Collected: 09/05/2017 Status: F Source: [place] 9:44 AM [facility] REPOSITORY TYPE CODE TESTS RESULT OUT OF REFERENCE UNITS RANGE LAB HGBA1C 4.3-5.6 % Hemoglobin A1c 5.4 LAB HBA0 mg/dL Est. Average Glucose 108 Result Comment: eAG: (Estimated average glucose) is a calculated value from HgbA1c and is floor representative of the average blood glucose level in the last 2-3 month period. Performed By: #### HBA1C #### [facility] [address], [place] [address] PROGRESS Observed: 09/05/2017 Status: COMPLETED Source: [place] 9:03 AM [facility] REPOSITORY HNO ID: [id number] Author: Cathi Garrison) Abigail Service: (none) Author Type: Physician Type: Progress Notes Filed: 09/05/2017 9:52 AM Note Text: Chief Complaint Patient presents with: F/U 3 Month HPI Kathy Puri is a 67 year old female who presents here today for 3 month follow up. Had fall at home 8-9 days ago going up the stairs. Tripped and feel sideways onto the railing and hit her left arm causing bruising. Healing slowly without any significant pain and has normal ROM. Had fall at home on the stairs about 1-2 months ago landing on left hip. Denies pain or bruising there today. Also notes that she was seen in the [facility] ED for chest pain about a month ago and followed up with Dr. Treviño after discharge. Left AMA from the ED after nitro paste. Was supposed to have stress test, but has been having trouble getting approved. Needs to call Dr. Treviño's office. At follow up appointment, she believes they changed her dose of Imdur, but records for this are not available. Has not had any further chest pain. Using Bipap nightly for BELLE which is working well. GERD symptoms uncontrolled on Zantac. Has been on Prilosec in the past that worked well for her. Discussed interaction of PPI with plavix. Will have her work on lifestyle changes and continue Tums PRN. Smoking 2-3 cigarettes per day and is working on cutting it out completely. Hopes to be done by the end of summer. Discussed quit date and benefits of smoking. Quit date: October 14. Reviewed recent normal lipid panel on external labs. Past medical history, appointments, medications, allergies reviewed. Previous Medical History PAST MEDICAL HISTORY Diagnosis Date - Atrial fibrillation (HCC) 07/16/2011 - CAD (coronary artery disease) seeing Dr. Treviño - Chronic lower back pain - DDD (degenerative disc disease), lumbar - Depression - GERD (gastroesophageal reflux disease) - H/O heart artery stent 7 Stents, last 2006 - Hypertension - IBS (irritable bowel syndrome) - Myocardial infarction (HCC) x2 - Obesity - Ovarian cancer (HCC) 09/13/[address] Blank - PAD (peripheral artery disease) ([facility]) Dr. Sathish Gar - Restless leg syndrome 07/16/2011 - Sleep apnea on Bipap - Tobacco use - Vulvovaginitis 07/16/2011 Previous Surgical History PAST SURGICAL HISTORY Procedure Laterality Date - COLONOSCOP W/ OR W/O [facility] SPEC 06/16/13 Colonoscopy - EGD W/O OR W/BRUSH/WASH 06/16/13 EGD - REMOVE TONSILS/ADENOIDS,<12 Y/O - REVSC OPN/PRG FEM/POP W/ANGIOPLASTY UNI Right 01/05/15 - REVSC OPN/PRG FEM/POP W/ANGIOPLASTY UNI Left 02-15-15 - REVSC OPN/PRG FEM/POP W/ANGIOPLASTY UNI Left 09/23/2016 - REVSC OPN/PRQ FEM/POP W/STNT/ANGIOP SM VSL 11-26-13 - REVSC OPN/PRQ FEM/POP W/STNT/ANGIOP VSL 01/07/14 - STENTS (SPECIFY) 1999 AND 2006 7 Stents - TOTAL ABD HYSTEREC+LTD NODES 2011 DIOMEDES BSO ovarian cancer Family History FAMILY HISTORY Problem Relation Age of Onset - Heart Father [place] - Stroke Maternal Grandfather - Hypertension Sister - Psychiatry Sister Patient Allergies ALLERGIES No Known Allergies Current Medications Current Outpatient Prescriptions on File Prior to Visit: ranitidine (ZANTAC) 150 mg tablet TAKE 1 TABLET TWICE DAILY atorvastatin (LIPITOR) 40 mg tablet Take 1 tablet by mouth once daily. isosorbide mononitrate ER (IMDUR) 60 mg 24 hr tablet Take 1 tablet by mouth once daily. metoprolol tartrate, short acting, (LOPRESSOR) 100 mg tablet Take 1 tablet by mouth twice daily. citalopram (CELEXA) 40 mg tablet TAKE 1 TABLET EVERY DAY amitriptyline (ELAVIL) 25 mg tablet TAKE 3 TABLETS DAILY AT BEDTIME ascorbic acid, vitamin C, (VITAMIN C) 500 mg tablet Take 500 mg by mouth once daily. ADVAIR DISKUS 500-50 mcg/dose dsdv Inhale 1 Puff as instructed once daily. ALBUTEROL SULFATE (VENTOLIN HFA INHALATION) Inhale 1 Puff as instructed as needed. amLODIPine (NORVASC) 10 mg tablet Take 1 tablet by mouth once daily. dicyclomine (BENTYL) 10 mg capsule Take 1 capsule by mouth before meals and at bedtime. pramipexole (MIRAPEX) 1 mg tablet Take 1 tablet by mouth daily at bedtime. clopidogrel (PLAVIX) 75 mg tablet Take 1 tablet by mouth once daily. amiodarone (PACERONE) 200 mg tablet Take 1 tablet by mouth once daily. Multivitamin capsule Take 1 capsule by mouth once daily. VITAMIN E, BULK, MISC lisinopril (ZESTRIL, PRINIVIL) 40 mg tablet Take 1 tablet by mouth once daily. acetaminophen (TYLENOL EXTRA STRENGTH) 500 mg tablet Take 500 mg by mouth every 6 hours as needed. rivaroxaban (XARELTO) 20 mg tablet Take 20 mg by mouth daily with dinner. MELATONIN ORAL Take by mouth once daily. lidocaine (LIDODERM) 5 %(700 mg/patch) Apply 1 Patch as directed every 12 hours. nitroglycerin sublingual (NITROSTAT) 0.4 mg SL tablet Dissolve 1 tablet under the tongue as needed. FOR CHEST PAIN. IF NO RELIEF CALL 911 ciprofloxacin HCl (CILOXAN) 0.3 % ophthalmic solution Use 1 Drop in the left eye four times daily. 3 days before surgery then continue after surgery. Ketorolac Tromethamine (ACLUAR LS) 0.4 % drop Use 1 Drop in the left eye four times daily. 3 days before surgery and continue after surgery. prednisoLONE acetate (PRED FORTE, ECONOPRED PLUS) 1 % ophthalmic suspension Use 1 Drop in the left eye four times daily. 3 days before surgery and continue after surgery. diphenoxylate-atropine sulfate (LOMOTIL) 2.5-0.025 mg/5 mL liquid Take 5 mL by mouth four times daily as needed. (Patient not taking: Reported on 09/05/2017 ) No current facility-administered medications on file prior to visit. Social History Social History Marital status: Spouse name: Years of education: Number of children: 3 Occupational History Occupation Employer Comment Retired Social History Main Topics Smoking status: Former Smoker Packs/day: 0.00 Years: 47.00 Types: Cigarettes Quit date: 04/24/2017 Smokeless tobacco: Never Used Comment: <5 per day Alcohol use: No Drug use: No Sexual activity: No Comment: Postmenopausal Review of Symptoms REVIEW OF SYSTEMS GENERAL: No weight loss, malaise or fevers RESPIRATORY: Negative for cough, hemoptysis, wheezing, COPD, dyspnea or shortness of breath CARDIOVASCULAR: Negative for chest pain, leg swelling, hypertension, CHF or palpitations GI: No nausea, vomiting, or diarrhea MUSCULOSKELETAL: See HPI SKIN: See HPI EXAM: BP 134/82 Pulse 60 Resp 16 Wt 74.4 kg (164 lb) BMI 31.37 kg/m? General Appearance: Well appearing, alert, in no acute distress, well-hydrated, well nourished.. Skin: 3-4 cm of bruising on left upper arm in various stages of healing. No evidence of hematoma. Non tender. Lungs: Lungs clear to auscultation. No wheezing, rhonchi, rales. Heart: RRR without murmur, gallop, or rubs. No ectopy. Abdomen: Normal abdominal exam, Abdomen soft, non-tender. Bowel sounds normal. No masses, organomegaly. Extremities: No deformities, edema, skin discoloration, clubbing or cyanosis. Good capillary refill. . HIP: Location: left Redness: No. Warmth: No. Range of motion: WNL Tenderness over trochanteric bursa: No Pain with movement: Yes, external rotation. Health Maintenance List DTAP,TDAP,TD(1 - Tdap) due on 01/24/1968 ZOSTER VACCINE (SHINGRIX)(1 of 2) due on 1999 PNEUMOVAX AGE 65 AND OVER WITH 5YR LOOKBACK(1) due on 08/30/2016 MAMMOGRAM due on 03/13/2018 DIABETES SCREEN due on 04/22/2018 COLORECTAL CANCER SCREENING,SEE MODIFIER due on 06/16/2018 LIPID SCREEN due on 04/22/2020 BONE DENSITY Completed ADULT PREVNAR-13 Completed INFLUENZA Completed HEPATITIS C SCREENING Completed ASSESSMENT/PLAN: 1. Fall in home, initial encounter - ICD9: E888.9, E849.0, ICD10: W19.XXXA, Y92.009 (primary diagnosis) Falls at home were mechanical and always involved stairs which are wood without carpeting or consumer lender tape. Discussed adding consumer lender to middle of stairs to help with sliding. Does not feel she needs walker or cane at this time. Will recheck in 3 months. 2. Superficial bruising of arm, left, initial encounter - ICD9: 923.9, ICD10: S40.022A Healing, will monitor and check CBC. 3. Paroxysmal atrial fibrillation (HCC) - ICD9: 427.31, ICD10: I48.0 Rate controlled. Continue current regimen and follow up with cardiology. 4. Essential hypertension - ICD9: 401.9, ICD10: I10 - good control - Continue current medication(s) - Encouraged dietary sodium restriction/DASH diet - Recommended regular aerobic exercise. - Reviewed risks of HTN and principles of treatment - Goal of BP <140/90 - COMP METABOLIC PANEL - CBC 5. PAD (peripheral artery disease) (HCC) - ICD9: 443.9, ICD10: I73.9 Continue Plavix, stop smoking, follow up with Dr. Gar regarding future vascular procedure after she stops smoking. 6. Coronary artery disease involving [place] coronary artery of [place] heart without angina pectoris - ICD9: 414.01, ICD10: I25.10 Asymptomatic. Continue current regimen. Recommendations per cardiology. 7. Gastroesophageal reflux disease, esophagitis presence not specified - ICD9: 530.81, ICD10: K21.9 - Discussed lifestyle modifications including losing weight, limiting caffeine, no meals three hours before sleep and head of bed elevation - Continue treatment with Zantac 150 mg BID 8. Dyslipidemia - ICD9: 272.4, ICD10: E78.5 - good control - Continue current medication. - Encouraged following a low fat, low cholesterol diet. - Discussed the benefits of regular aerobic exercise and weight loss. 9. Tobacco abuse - ICD9: 305.1, ICD10: Z72.0 - Cessation encouraged. - Physiologic and physical aspects of tobacco addiction as well as strategies for quitting were discussed. - Counseling was given focusing on the harmful effects of this addiction especially given the patient's medical condition(s) which will be worsened because of the chemicals in tobacco. 10. Need for vaccination - ICD9: V05.9, ICD10: Z23 - PNEUMOCOCCAL IMMUNIZATION PPSV 23 Cathi Hayes MD CNOV Observed: 09/05/2017 Status: COMPLETED Source: [place] 9:00 AM [facility] REPOSITORY Office Visit (FAMPWS) KATHY PURI ([id number]) 1950 F Date Time Provider Department 09/05/17 9:00 AM CATHI HAYES) FAMPWS During your visit today, we recorded the following information about you: Pulse Respiration Blood pressure Weight 60/minute 16/minute 134/82 74.4 kg Cathi Hayes MD 09/05/2017 9:52 AM Signed Chief Complaint Patient presents with: F/U 3 Month HPI Kathy Puri is a 67 year old female who presents here today for 3 month follow up. Had fall at home 8-9 days ago going up the stairs. Tripped and feel sideways onto the railing and hit her left arm causing bruising. Healing slowly without any significant pain and has normal ROM. Had fall at home on the stairs about 1-2 months ago landing on left hip. Denies pain or bruising there today. Also notes that she was seen in the [facility] ED for chest pain about a month ago and followed up with Dr. Treviño after discharge. Left AMA from the ED after nitro paste. Was supposed to have stress test, but has been having trouble getting approved. Needs to call Dr. Treviño's office. At follow up appointment, she believes they changed her dose of Imdur, but records for this are not available. Has not had any further chest pain. Using Bipap nightly for BELLE which is working well. GERD symptoms uncontrolled on Zantac. Has been on Prilosec in the past that worked well for her. Discussed interaction of PPI with plavix. Will have her work on lifestyle changes and continue Tums PRN. Smoking 2-3 cigarettes per day and is working on cutting it out completely. Hopes to be done by the end of summer. Discussed quit date and benefits of smoking. Quit date: October 14. Reviewed recent normal lipid panel on external labs. Past medical history, appointments, medications, allergies reviewed. Previous Medical History PAST MEDICAL HISTORY Diagnosis Date - Atrial fibrillation (HCC) 07/16/2011 - CAD (coronary artery disease) seeing Dr. Treviño - Chronic lower back pain - DDD (degenerative disc disease), lumbar - Depression - GERD (gastroesophageal reflux disease) - H/O heart artery stent 7 Stents, last 2006 - Hypertension - IBS (irritable bowel syndrome) - Myocardial infarction (HCC) x2 - Obesity - Ovarian cancer (HCC) 09/13/[address] Blank - PAD (peripheral artery disease) ([facility]) Dr. Sathish Gar - Restless leg syndrome 07/16/2011 - Sleep apnea on Bipap - Tobacco use - Vulvovaginitis 07/16/2011 Previous Surgical History PAST SURGICAL HISTORY Procedure Laterality Date - COLONOSCOP W/ OR W/O [facility] SPEC 06/16/13 Colonoscopy - EGD W/O OR W/BRUSH/WASH 06/16/13 EGD - REMOVE TONSILS/ADENOIDS,<12 Y/O - REVSC OPN/PRG FEM/POP W/ANGIOPLASTY UNI Right 01/05/15 - REVSC OPN/PRG FEM/POP W/ANGIOPLASTY UNI Left 02-15-15 - REVSC OPN/PRG FEM/POP W/ANGIOPLASTY UNI Left 09/23/2016 - REVSC OPN/PRQ FEM/POP W/STNT/ANGIOP VSL 11-26-13 - REVSC OPN/PRQ FEM/POP W/STNT/ANGIOP [facility] 01/07/14 - STENTS (SPECIFY) 1999 AND 2006 7 Stents - TOTAL ABD HYSTEREC+LTD NODES 2011 DIOMEDES BSO ovarian cancer Family History FAMILY HISTORY Problem Relation Age of Onset - Heart Father [place] - Stroke Maternal Grandfather - Hypertension Sister - Psychiatry Sister Patient Allergies ALLERGIES No Known Allergies Current Medications Current Outpatient Prescriptions on File Prior to Visit: ranitidine (ZANTAC) 150 mg tablet TAKE 1 TABLET TWICE DAILY atorvastatin (LIPITOR) 40 mg tablet Take 1 tablet by mouth once daily. isosorbide mononitrate ER (IMDUR) 60 mg 24 hr tablet Take 1 tablet by mouth once daily. metoprolol tartrate, short acting, (LOPRESSOR) 100 mg tablet Take 1 tablet by mouth twice daily. citalopram (CELEXA) 40 mg tablet TAKE 1 TABLET EVERY DAY amitriptyline (ELAVIL) 25 mg tablet TAKE 3 TABLETS DAILY AT BEDTIME ascorbic acid, vitamin C, (VITAMIN C) 500 mg tablet Take 500 mg by mouth once daily. ADVAIR DISKUS 500-50 mcg/dose dsdv Inhale 1 Puff as instructed once daily. ALBUTEROL SULFATE (VENTOLIN HFA INHALATION) Inhale 1 Puff as instructed as needed. amLODIPine (NORVASC) 10 mg tablet Take 1 tablet by mouth once daily. dicyclomine (BENTYL) 10 mg capsule Take 1 capsule by mouth before meals and at bedtime. pramipexole (MIRAPEX) 1 mg tablet Take 1 tablet by mouth daily at bedtime. clopidogrel (PLAVIX) 75 mg tablet Take 1 tablet by mouth once daily. amiodarone (PACERONE) 200 mg tablet Take 1 tablet by mouth once daily. Multivitamin capsule Take 1 capsule by mouth once daily. VITAMIN E, BULK, MISC lisinopril (ZESTRIL, PRINIVIL) 40 mg tablet Take 1 tablet by mouth once daily. acetaminophen (TYLENOL EXTRA STRENGTH) 500 mg tablet Take 500 mg by mouth every 6 hours as needed. rivaroxaban (XARELTO) 20 mg tablet Take 20 mg by mouth daily with dinner. MELATONIN ORAL Take by mouth once daily. lidocaine (LIDODERM) 5 %(700 mg/patch) Apply 1 Patch as directed every 12 hours. nitroglycerin sublingual (NITROSTAT) 0.4 mg SL tablet Dissolve 1 tablet under the tongue as needed. FOR CHEST PAIN. IF NO RELIEF CALL 911 ciprofloxacin HCl (CILOXAN) 0.3 % ophthalmic solution Use 1 Drop in the left eye four times daily. 3 days before surgery then continue after surgery. Ketorolac Tromethamine (ACLUAR LS) 0.4 % drop Use 1 Drop in the left eye four times daily. 3 days before surgery and continue after surgery. prednisoLONE acetate (PRED FORTE, ECONOPRED PLUS) 1 % ophthalmic suspension Use 1 Drop in the left eye four times daily. 3 days before surgery and continue after surgery. diphenoxylate-atropine sulfate (LOMOTIL) 2.5-0.025 mg/5 mL liquid Take 5 mL by mouth four times daily as needed. (Patient not taking: Reported on 09/05/2017 ) No current facility-administered medications on file prior to visit. Social History Social History Marital status: Spouse name: Years of education: Number of children: 3 Occupational History Occupation Employer Comment Retired Social History Main Topics Smoking status: Former Smoker Packs/day: 0.00 Years: 47.00 Types: Cigarettes Quit date: 04/24/2017 Smokeless tobacco: Never Used Comment: <5 per day Alcohol use: No Drug use: No Sexual activity: No Comment: Postmenopausal Review of Symptoms REVIEW OF SYSTEMS GENERAL: No weight loss, malaise or fevers RESPIRATORY: Negative for cough, hemoptysis, wheezing, COPD, dyspnea or shortness of breath CARDIOVASCULAR: Negative for chest pain, leg swelling, hypertension, CHF or palpitations GI: No nausea, vomiting, or diarrhea MUSCULOSKELETAL: See HPI SKIN: See HPI EXAM: BP 134/82 Pulse 60 Resp 16 Wt 74.4 kg (164 lb) BMI 31.37 kg/m? General Appearance: Well appearing, alert, in no acute distress, well-hydrated, well nourished.. Skin: 3-4 cm of bruising on left upper arm in various stages of healing. No evidence of hematoma. Non tender. Lungs: Lungs clear to auscultation. No wheezing, rhonchi, rales. Heart: RRR without murmur, gallop, or rubs. No ectopy. Abdomen: Normal abdominal exam, Abdomen soft, non-tender. Bowel sounds normal. No masses, organomegaly. Extremities: No deformities, edema, skin discoloration, clubbing or cyanosis. Good capillary refill. . HIP: Location: left Redness: No. Warmth: No. Range of motion: WNL Tenderness over trochanteric bursa: No Pain with movement: Yes, external rotation. Health Maintenance List DTAP,TDAP,TD(1 - Tdap) due on 01/24/1968 ZOSTER VACCINE (SHINGRIX)(1 of 2) due on 1999 PNEUMOVAX AGE 65 AND OVER WITH 5YR LOOKBACK(1) due on 08/30/2016 MAMMOGRAM due on 03/13/2018 DIABETES SCREEN due on 04/22/2018 COLORECTAL CANCER SCREENING,SEE MODIFIER due on 06/16/2018 LIPID SCREEN due on 04/22/2020 BONE DENSITY Completed ADULT PREVNAR-13 Completed INFLUENZA Completed HEPATITIS C SCREENING Completed ASSESSMENT/PLAN: 1. Fall in home, initial encounter - ICD9: E888.9, E849.0, ICD10: W19.XXXA, Y92.009 (primary diagnosis) Falls at home were mechanical and always involved stairs which are wood without carpeting or consumer lender tape. Discussed adding consumer lender to middle of stairs to help with sliding. Does not feel she needs walker or cane at this time. Will recheck in 3 months. 2. Superficial bruising of arm, left, initial encounter - ICD9: 923.9, ICD10: S40.022A Healing, will monitor and check CBC. 3. Paroxysmal atrial fibrillation (HCC) - ICD9: 427.31, ICD10: I48.0 Rate controlled. Continue current regimen and follow up with cardiology. 4. Essential hypertension - ICD9: 401.9, ICD10: I10 - good control - Continue current medication(s) - Encouraged dietary sodium restriction/DASH diet - Recommended regular aerobic exercise. - Reviewed risks of HTN and principles of treatment - Goal of BP <140/90 - COMP METABOLIC PANEL - CBC 5. PAD (peripheral artery disease) (HCC) - ICD9: 443.9, ICD10: I73.9 Continue Plavix, stop smoking, follow up with Dr. Gar regarding future vascular procedure after she stops smoking. 6. Coronary artery disease involving [place] coronary artery of [place] heart without angina pectoris - ICD9: 414.01, ICD10: I25.10 Asymptomatic. Continue current regimen. Recommendations per cardiology. 7. Gastroesophageal reflux disease, esophagitis presence not specified - ICD9: 530.81, ICD10: K21.9 - Discussed lifestyle modifications including losing weight, limiting caffeine, no meals three hours before sleep and head of bed elevation - Continue treatment with Zantac 150 mg BID 8. Dyslipidemia - ICD9: 272.4, ICD10: E78.5 - good control - Continue current medication. - Encouraged following a low fat, low cholesterol diet. - Discussed the benefits of regular aerobic exercise and weight loss. 9. Tobacco abuse - ICD9: 305.1, ICD10: Z72.0 - Cessation encouraged. - Physiologic and physical aspects of tobacco addiction as well as strategies for quitting were discussed. - Counseling was given focusing on the harmful effects of this addiction especially given the patient's medical condition(s) which will be worsened because of the chemicals in tobacco. 10. Need for vaccination - ICD9: V05.9, ICD10: Z23 - PNEUMOCOCCAL IMMUNIZATION PPSV 23 Cathi Hayes MD Referring Provider: CORINNE GRACE ([facility]) [[id number]] Allergies As of Date: 09/05/2017 (No Known Allergies) Date Reviewed: 09/05/2017 Reviewed by: Adriano Toscano Ma - Fully Assessed Reason for Visit: F/U 3 Month [443] Primary Visit Diagnosis:Fall in home, initial encounter [W19.XXXA, Y92.009] Other Visit Diagnoses:Superficial bruising of arm, left, initial encounter [S40.022A] Paroxysmal atrial fibrillation (HCC) [I48.0] Essential hypertension [I10] PAD (peripheral artery disease) ([facility]) [I73.9] Coronary artery disease involving [place] coronary artery of [place] heart without angina pectoris [I25.10] Gastroesophageal reflux disease, esophagitis presence not specified [K21.9] Dyslipidemia [E78.5] Tobacco abuse [Z72.0] Need for vaccination [Z23] Order(s):PNEUMOCOCCAL IMMUNIZATION PPSV 23 [[id number]] Order #: [id number] COMP METABOLIC PANEL [SQCMP] Order #: [id number] FUTURE CBC [SQCBC] Order #: [id number] FUTURE Prescriptions as of 09/05/2017 Sig: CHOLECALCIFEROL (VITAMIN D3) * Take 1,000 Units by mouth onc* RANITIDINE 150 MG TABLET TAKE 1 TABLET TWICE DAILY ATORVASTATIN 40 MG TABLET Take 1 tablet by mouth once d* ISOSORBIDE MONONITRATE ER 60 * Take 1 tablet by mouth once d* METOPROLOL TARTRATE 100 MG TA* Take 1 tablet by mouth twice * CITALOPRAM 40 MG TABLET TAKE 1 TABLET EVERY DAY AMITRIPTYLINE 25 MG TABLET TAKE 3 TABLETS DAILY AT BEDTI* ASCORBIC ACID (VITAMIN C) 500* Take 500 mg by mouth once elliott* ADVAIR DISKUS 500 MCG-50 MCG/* Inhale 1 Puff as instructed o* VENTOLIN HFA INHALATION Inhale 1 Puff as instructed a* AMLODIPINE 10 MG TABLET Take 1 tablet by mouth once d* DICYCLOMINE 10 MG CAPSULE Take 1 capsule by mouth befor* PRAMIPEXOLE 1 MG TABLET Take 1 tablet by mouth daily * CLOPIDOGREL 75 MG TABLET Take 1 tablet by mouth once d* AMIODARONE 200 MG TABLET Take 1 tablet by mouth once d* MULTIVITAMIN CAPSULE Take 1 capsule by mouth once * VITAMIN E (BULK) MISC LISINOPRIL 40 MG TABLET Take 1 tablet by mouth once d* ACETAMINOPHEN 500 MG TABLET Take 500 mg by mouth every 6 * RIVAROXABAN 20 MG TABLET Take 20 mg by mouth daily wit* MELATONIN ORAL Take by mouth once daily. LIDOCAINE 5 % TOPICAL PATCH Apply 1 Patch as directed orly* NITROGLYCERIN 0.4 MG SUBLINGU* Dissolve 1 tablet under the t* CIPROFLOXACIN 0.3 % EYE DROPS Use 1 Drop in the left eye fo* KETOROLAC 0.4 % EYE DROPS Use 1 Drop in the left eye fo* PREDNISOLONE ACETATE 1 % EYE * Use 1 Drop in the left eye fo* DIPHENOXYLATE-ATROPINE 2.5 MG* Take 5 mL by mouth four times* Patient not taking: Reported on 09/05/2017 Problem List As Of Date 09/05/2017 Noted Resolved Vulvovaginitis [N76.0] INVALID FOR*01/13/2014 Atrial fibrillation [I48.91] INVALID FOR* Restless leg syndrome [G25.81] INVALID FOR* Hypertension [I10] Heart disease [I51.9] 01/29/2017 More... Pelvic mass in female [R19.00] INVALID FOR*05/07/2013 PAD (peripheral artery disease) [I73.9] INVALID FOR* History of myocardial infarction [I25.2] INVALID FOR* Ovarian cancer [C56.9] INVALID FOR*05/07/2013 Cellulitis, abdominal wall [L03.311] INVALID FOR*01/29/2017 Personal history of malignant neoplasm of ovary*INVALID FOR* Chronic pain [G89.29] INVALID FOR* Lumbar radiculopathy [M54.16] INVALID FOR* DDD (degenerative disc disease), lumbar [M51.36]INVALID FOR* Myofascial pain [M79.1] INVALID FOR* Pelvic pain INVALID FOR*01/02/2016 Urinary frequency [R35.0] INVALID FOR* Hematuria, microscopic [R31.29] INVALID FOR* Nocturia [R35.1] INVALID FOR* S/P coronary artery stent placement [Z95.5] INVALID FOR* Tobacco abuse [Z72.0] INVALID FOR* Family history of ischemic heart disease [Z82.4*INVALID FOR* Dyslipidemia [E78.5] INVALID FOR* Shortness of breath [R06.02] INVALID FOR* Pain of left lower extremity [M79.605] INVALID FOR* CAD (coronary artery disease) [I25.10] GERD (gastroesophageal reflux disease) [K21.9] Disposition: Return in about 3 months (around 12/06/2017). Follow-up and Disposition History Recorded Encounter Status:Closed by CATHI HAYES MD on 09/05/17 CARDIOLOGY VISIT Observed: 08/27/2017 Status: F Source: [place] RE[place] 8:21 AM [facility] REPOSITORY [facility] [address] [place] [address] OFFICE VISIT Date of Service: 08/12/17 MR#: [id number] Acct: [id number] Name: KATHY PURI Rep #: [id number] : 1950 Provider: Evelyn Collier Age/Sex: 67/F Location: [facility] Status: Signed HPI HPI Details: KATHY PURI, is a 67 F who presents to the office today for a follow-up visit from an emergency room stay. She has a history of paroxysmal atrial fibrillation, coronary artery disease with angioplasty and stenting of her RCA and angioplasty of her first obtuse marginal and hyperlipidemia. She also has a history of peripheral arterial disease and does see Dr. Gar for this. Her troponins were negative, her isosorbide was increased. They had recommended that she stay overnight for further evaluation however patient declined Pt sts that she had taken 3 NTG which eased the chest pain prior to her coming to the ER. She She has had chest tightness since her ER visit. She describes that as chest pain/heaviness that radiated around to her back and down her arm. She has not used NTG since her ER visit. She does have SOB with exertion, she was SOB walking to our office. She does not feel that this is worse than before. She does not have any lightheadedness/dizziness. She does not have any syncope. She does occasionally have palpitations. She does not have any edema. 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 Accompanied by: grandson Is patient in pain?: No Allergies No Known Allergies Allergy (Verified 08/12/17 13:58) Medications Amitriptyline HCl [Elavil] 75 mg PO QHS 11/25/13 [History Confirmed 08/12/17] Citalopram [Celexa] 40 mg PO DAILY 11/25/13 [History Confirmed 08/12/17] Multivitamins,Therapeutic [Multivitamin] 1 tab PO DAILY 11/25/13 [History Confirmed 08/12/17] Pramipexole Di-HCl [Mirapex] 1 mg PO QHS 11/25/13 [History Confirmed 08/12/17] Albuterol Inhaler [Ventolin Hfa] 1 - 2 puff INHALATION Q4H PRN PRN #1 inhaler 10/02/16 [Rx Confirmed 08/12/17] Dicyclomine HCl 10 mg PO 4X/DAY 04/25/17 [History Confirmed 08/12/17] Melatonin 3 mg PO QHS PRN 04/25/17 [History Confirmed 08/12/17] amlodipine 10 mg tablet 10 mg PO DAILY #90 tab 05/20/17 [Rx Confirmed 08/12/17] atorvastatin 40 mg tablet 40 mg PO QDAY 05/20/17 [History Confirmed 08/12/17] clopidogrel 75 mg tablet 75 mg PO DAILY #90 tab 05/20/17 [Rx Confirmed 08/12/17] lisinopril 40 mg tablet 40 mg PO BID #180 tab 05/20/17 [Rx Confirmed 08/12/17] nitroglycerin 0.4 mg sublingual tablet 0.4 mg SUBLINGUAL Q5M PRN #25 tab 05/20/17 [Rx Confirmed 08/12/17] fluticasone 500 mcg-salmeterol 50 mcg/dose blistr powdr for inhalation 1 inh INHALATION Q12H #60 ea 06/04/17 [Rx Confirmed 08/12/17] metoprolol tartrate 50 mg tablet 50 mg PO BID #180 tab 07/29/17 [Rx Confirmed 08/12/17] amiodarone 200 mg tablet 200 mg PO DAILY #90 tab 08/12/17 [Rx Confirmed 08/12/17] isosorbide mononitrate ER 60 mg tablet,extended release 24 hr 60 mg PO BID #180 tab 08/12/17 [Rx Confirmed 08/12/17] ranitidine 150 mg tablet PO 90 Days #180 08/12/17 [History Confirmed 08/12/17] rivaroxaban 20 mg tablet 20 mg PO DAILY #90 tab 08/12/17 [Rx Confirmed 08/12/17] vitamin E (dl, acetate) 400 unit capsule 400 unit PO QDAY 08/12/17 [History Confirmed 08/12/17] Ejection fraction %: 60 to 64 PFSH Medical History Nicotine abuse (Chronic) Atherosclerotic peripheral vascular disease (Chronic) Atherosclerotic heart disease of [place] coronary artery without angina pectoris (Chronic) Encounter for long-term (current) use of other medications (Chronic) Body mass index 32.0-32.9, adult (Chronic) Family history of hypertension (Chronic) Tobacco abuse (Chronic) Dyspnea on exertion (Chronic) Wheezing (Chronic) Obesity (Chronic) Paroxysmal atrial fibrillation (Chronic) Tobacco user (Chronic) Atrial fibrillation with RVR (Chronic) Hypokalemia (Resolved) HTN (hypertension) (Chronic) IBS (irritable bowel syndrome) (Chronic) Non-STEMI (non-ST elevated myocardial infarction) (Chronic) HLD (hyperlipidemia) (Chronic) Anxiety and depression (Chronic) Angina pectoris (Resolved) CAD (coronary artery disease) (Chronic) PAD (peripheral artery disease) (Chronic) Surgical History History of left heart catheterization (Chronic) Stented coronary artery (Chronic) History of coronary angioplasty (Resolved) Family History Father Heart disease Hypertension Seizures Sister CVA (cerebral vascular accident) Hypertension Other Family history of hypertension Social History Smoking Status: Current every day smoker second hand exposure: No alcohol intake: current alcohol intake frequency: 0-2 drinks per day substance use type: does not use what type of physical activity do you participate in: none ROS Const Const: Negative for weakness, fatigue, fever(s) or headache(s) Eyes Eyes: Negative for blind spots, loss of peripheral vision or transient loss of vision ENT ENT: Negative for headache(s), dizziness, tinnitus or Nosebleed/epistaxis Cardio Chest Pain: Yes Palpitations: Yes Edema: None Muscle aches with walking: None Resp Respiratory: Positive for SOB with activity; negative for SOB at rest, SOB orthopnea\SOB lying down or Cough GI GI: Negative nausea, vomiting, heartburn or vomiting blood/hematemesis : Negative for hematuria Musc Musc: Negative for muscle aches/ myalgia Neuro Neuro: Negative for weakness, headache(s), dizziness, near syncope, syncope, lightheadedness or orthostatic symptoms Igor Hematologic/Lymphatic: Negative for easy bleeding Endo Endo: Negative for fatigue Cardiology Exam Const Appearance: cooperative, healthy appearing, well developed, well groomed and no acute distress Nutritional Appearance: well nourished and average body habitus Orientation: alert, awake and oriented x3 Head Head: normal to inspection, normocephalic and atraumatic Ears: hearing grossly normal bilaterally and external ears normal Nose: external nose normal, nasal mucous membranes and turbinates normal, nares normal, septum normal, no nasal discharge Face and Sinus: face symmetric Mouth: oral mucosae normal, tongue normal, oropharynx normal and moist mucous membranes Teeth and gingiva: dentition normal Throat: posterior oropharynx normal, tonsils normal and uvula midline Eyes General: appearance normal, both eyes and all related structures Eyelids: eyelids normal Conjunctivae: conjunctivae normal Pupils: PERRL, normal by confrontation and accommodation normal EOM: EOM intact bilaterally Neck Neck: normal visual inspection, trachea midline and no JVD JVD: +5 Carotids: normal carotid upstroke and bounding pulses Chest Chest inspection: normal inspection of the chest, symmetric chest movement and normal respiratory effort Auscultation: Bilateral: Clear to Auscultation Cardio Palpation: normal PMI Rate: regular rate Rhythm: regular rhythm Heart sounds: S1 normal, S2 normal and normal, physiologic split S2; negative rub, gallop or murmur GI GI: normal to inspection, soft, no hepatosplenomegaly and bowel sounds present Neuro General: alert, awake, oriented x3, no focal sensory deficit, gait normal and moves all extremities Skin Skin: no rashes or lesions noted Extremities Pulses: Normal: Right Femoral Pulse, Left Femoral Pulse, Right Dorsalis Pedis Pulse, Left Dorsalis Pedis Pulse, Right Posterior Tibial Pulse, Left Posterior Tibial Pulse, Right Radial Pulse, Left Radial Pulse Lower Extremity Edema: None: Bilateral Musculoskel Musculoskeletal: No joint tenderness Psych Psychological: normal affect Supplemental Info Echocardiogram in 2017 demonstrated ejection fraction 60%. Mild to moderate concentric LVH. Left atrium is mildly enlarged. Mild to moderate mitral calcification. Mild to moderate mitral insufficiency. Mild tricuspid insufficiency. Trivial aortic and pulmonic insufficiency. Assessment AND Plan 1. Coronary artery disease of [place] artery of [place] heart with stable angina pectoris I25.118 Plan - GABRIELLA Mancuso Patient has had that episode of angina. Would like to obtain a stress test to evaluate for ischemia. She is tolerating the increased dose of isosorbide. Will follow up accordingly after stress test. 2. Hyperlipidemia, unspecified hyperlipidemia type E78.5 Plan - GABRIELLA Mancuso Lipid profile from May 2017 demonstrates total cholesterol 125, HDL 46, LDL 57. Will not make any adjustments. 3. Essential hypertension I10 Plan - GABRIELLA Mancuso Blood pressure is well controlled on current medications, we do not recommend any changes at this time. Orders Orders: 4. Paroxysmal atrial fibrillation I48.0 Plan - GABRIELLA Mancuso Patient has not had any symptomatic recurrence that she is aware of. She will continue with a rate limiting medications. She will also continue with a factor Xa inhibitor. Plan Detail Other Orders Orders: Other Medications New: Refilled: Additional Comments - GABRIELLA Mancuso Thank you for allowing us to participate in patient's plan of care, if you have any questions please do not hesitate to call. This note was generated using a voice recognition system and there may be incorrect words, spelling or punctuation errors that were not noted when reviewing the office note prior to saving. Follow Up 08/12/17 (Keep as is) Coding Level of Care Code Off vis,est,level 4 Diagnoses Coronary artery disease of [place] artery of [place] heart with stable angina pectoris I25.118 Coronary Disease-Associated Artery/Lesion type: [place] artery [place] vs. transplanted heart: [place] heart Associated angina: with stable angina Hyperlipidemia, unspecified hyperlipidemia type E78.5 Hyperlipidemia type: unspecified Essential hypertension I10 Hypertension type: essential hypertension Paroxysmal atrial fibrillation I48.0 Coding Level of Care Code Off vis,est,level 4 Diagnoses Coronary artery disease of [place] artery of [place] heart with stable angina pectoris I25.118 Coronary Disease-Associated Artery/Lesion type: [place] artery [place] vs. transplanted heart: [place] heart Associated angina: with stable angina Hyperlipidemia, unspecified hyperlipidemia type E78.5 Hyperlipidemia type: unspecified Essential hypertension I10 Hypertension type: essential hypertension Paroxysmal atrial fibrillation I48.0 08/12/17 1442 <Electronically signed by Evelyn QUIROZ> Date Evelyn QUIROZ 08/27/17 0821<Electronically signed by Jaime Treviño MD> Cosigner Signature: Date (if applicable) Jaime Treviño MD CC: Feng Hayes MD CNPTOUTREACH Observed: 08/19/2017 Status: COMPLETED Source: [place] 12:00 AM [facility] REPOSITORY Patient Outreach (INT[facility]) KATHY PURI ([id number]) 1950 F Date Time Provider Department 08/19/17 CATHI HAYES) [facility] During your visit today, we recorded the following information about you: Allergies As of Date: 08/19/2017 (No Known Allergies) Date Reviewed: 08/01/2017 Reviewed by: Cherie Valladares) Brianne - Fully Assessed Visit Diagnosis:Medication management [Z79.899] Order(s):HGB A1C [CAWXX9Y] Order #: [id number] FUTURE LIPID PANEL BASIC [SQLIPB] Order #: [id number] FUTURE Prescriptions as of 08/19/2017 Sig: X RANITIDINE 150 MG TABLET TAKE 1 TABLET TWICE DAILY X ATORVASTATIN 40 MG TABLET Take 1 tablet by mouth once d* ISOSORBIDE MONONITRATE ER 60 * Take 1 tablet by mouth once d* METOPROLOL TARTRATE 100 MG TA* Take 1 tablet by mouth twice * X CITALOPRAM 40 MG TABLET TAKE 1 TABLET EVERY DAY X AMITRIPTYLINE 25 MG TABLET TAKE 3 TABLETS DAILY AT BEDTI* ASCORBIC ACID (VITAMIN C) 500* Take 500 mg by mouth once elliott* ADVAIR DISKUS 500 MCG-50 MCG/* Inhale 1 Puff as instructed o* VENTOLIN HFA INHALATION Inhale 1 Puff as instructed a* X CIPROFLOXACIN 0.3 % EYE DROPS Use 1 Drop in the left eye fo* X KETOROLAC 0.4 % EYE DROPS Use 1 Drop in the left eye fo* X PREDNISOLONE ACETATE 1 % EYE * Use 1 Drop in the left eye fo* AMLODIPINE 10 MG TABLET Take 1 tablet by mouth once d* PRAMIPEXOLE 1 MG TABLET Take 1 tablet by mouth daily * CLOPIDOGREL 75 MG TABLET Take 1 tablet by mouth once d* AMIODARONE 200 MG TABLET Take 1 tablet by mouth once d* X DICYCLOMINE 10 MG CAPSULE Take 1 capsule by mouth befor* MULTIVITAMIN CAPSULE Take 1 capsule by mouth once * VITAMIN E (BULK) MISC LISINOPRIL 40 MG TABLET Take 1 tablet by mouth once d* ACETAMINOPHEN 500 MG TABLET Take 500 mg by mouth every 6 * DIPHENOXYLATE-ATROPINE 2.5 MG* Take 5 mL by mouth four times* RIVAROXABAN 20 MG TABLET Take 20 mg by mouth daily wit* MELATONIN ORAL Take by mouth once daily. LIDOCAINE 5 % TOPICAL PATCH Apply 1 Patch as directed orly* NITROGLYCERIN 0.4 MG SUBLINGU* Dissolve 1 tablet under the t* Problem List As Of Date 08/19/2017 Noted Resolved Vulvovaginitis [N76.0] INVALID FOR*01/13/2014 Atrial fibrillation [I48.91] INVALID FOR* Restless leg syndrome [G25.81] INVALID FOR* Hypertension [I10] Heart disease [I51.9] 01/29/2017 More... Pelvic mass in female [R19.00] INVALID FOR*05/07/2013 PAD (peripheral artery disease) [I73.9] INVALID FOR* History of myocardial infarction [I25.2] INVALID FOR* Ovarian cancer [C56.9] INVALID FOR*05/07/2013 Cellulitis, abdominal wall [L03.311] INVALID FOR*01/29/2017 Personal history of malignant neoplasm of ovary*INVALID FOR* Chronic pain [G89.29] INVALID FOR* Lumbar radiculopathy [M54.16] INVALID FOR* DDD (degenerative disc disease), lumbar [M51.36]INVALID FOR* Myofascial pain [M79.18] INVALID FOR* Pelvic pain INVALID FOR*01/02/2016 Urinary frequency [R35.0] INVALID FOR* Hematuria, microscopic [R31.29] INVALID FOR* Nocturia [R35.1] INVALID FOR* S/P coronary artery stent placement [Z95.5] INVALID FOR* Tobacco abuse [Z72.0] INVALID FOR* Family history of ischemic heart disease [Z82.4*INVALID FOR* Dyslipidemia [E78.5] INVALID FOR* Shortness of breath [R06.02] INVALID FOR* Pain of left lower extremity [M79.605] INVALID FOR* CAD (coronary artery disease) [I25.10] GERD (gastroesophageal reflux disease) [K21.9] Encounter Status:Closed by EPIC, PRODUSER on 12/26/17 T4 TOTAL, THYROXIN Collected: 08/12/2017 Status: F Source: [place] 2:53 PM [facility] REPOSITORY TYPE CODE TESTS RESULT OUT OF RANGE REFERENCE UNITS LAB L501.9310 4.8-13.9 ug/dL T4 Normal THYROXIN 12.0 Performed By: #### L501.9310, L501.9520 #### [facility] [address]. [place], [place], [address] THYROID STIM HORMONE Collected: 08/12/2017 Status: F Source: [place] (TSH) 2:53 PM [facility] REPOSITORY TYPE CODE TESTS RESULT OUT OF RANGE REFERENCE UNITS LAB L501.9520 0.358-3.74 uIU/mL Normal TSH 1.85 Performed By: #### L501.9310, L501.9520 #### [facility] [address]. [place], [place], [address] PROGRESS Observed: 08/07/2017 Status: COMPLETED Source: [place] 1:32 PM [facility] REPOSITORY O ID: [id number] Author: Lena Juan Psr Service: (none) Author Type: (none) Type: Progress Notes Filed: 08/07/2017 1:32 PM Note Text: pap logged, letter sent. Lena Juan Psr 12 LEAD ELECTROCARDIOGRAM Observed: 08/01/2017 Status: F Source: [place] 2:52 PM [facility] REPOSITORY [facility] Cardiovascular Services [address] [place] [address] 12 Lead EKG 07/28/171915 MR#: [id number] Acct: [id number] Name: KATHY PURI Rep #: [id number] : 1950 67 From: Jaime Treviño MD Attending Dr: Status: DEP ER Ordering Dr: Antonio Mckeon MD Date: 07/28/17 Location: ED Sex: F C Admitted: Test Reason : REPEAT Blood Pressure : / mmHG Vent. Rate : 047 BPM Atrial Rate : 047 BPM P-R Int : 154 ms QRS Dur : 104 ms QT Int : 536 ms P-R-T Axes : -15 -08 041 degrees QTc Int : 474 ms Sinus bradycardia Otherwise normal ECG Confirmed by JAIME TREVIÑO MD ([id number]), managing editor DELMY CORRIGAN ([id number]) on 08/01/2017 2:51:33 PM Referred By: ADRIAN Confirmed By:JAIME TREVIÑO MD 08/01/171450 Date Jaime Treviño MD CC: Feng Hayes MD; Antonio Mckeon MD Signed 12 LEAD ELECTROCARDIOGRAM Observed: 08/01/2017 Status: F Source: [place] 2:51 PM [facility] REPOSITORY [facility] Cardiovascular Services [address] [place] [id number] 12 Lead EKG 07/28/17 1837 MR#: [id number] Acct: [id number] Name: KATHY PURI Rep #: [id number] : 1950 67 From: Jaime Treviño MD Attending Dr: Status: DEP ER Ordering Dr: Antonio Mckeon MD Date: 07/28/17 Location: ED Sex: F C Admitted: Test Reason : CP Blood Pressure : / mmHG Vent. Rate : 057 BPM Atrial Rate : 057 BPM P-R Int : 180 ms QRS Dur : 108 ms QT Int : 500 ms P-R-T Axes : 066 -04 058 degrees QTc Int : 486 ms Sinus bradycardia Septal infarct , age undetermined Abnormal ECG Confirmed by JAIME TREVIÑO MD ([id number]), managing editor DELMY CORRIGAN ([id number]) on 08/01/2017 2:51:12 PM Referred By: ADRIAN/FROY Confirmed By:JAIME TREVIÑO MD 08/01/17 639 Date Jaime Treviño MD CC: Feng Hayes MD; Antonio Mckeon MD Signed Observed: 08/01/2017 Status: F Source: [place] BACT/CAND VAG [facility] 10:[address] [facility] REPOSITORY Sp. Request/Comment: - Swab Smear Result - Stain results consistent with bacterial vaginosis. No Yeast observed Few Polymorphonuclear leukocytes Few Epithelial cells Performed By: #### BVCNSM #### [facility] [address] [place], [place] [address] CYTOLOGY Observed: 08/01/2017 Status: F Source: [place] 9:[address] [facility] REPOSITORY Specimen originated from [facility] Specimen #: [id number] Submitting Physician: CHERIE PERKINS SPECIMEN SUBMITTED A: VAGINAL VAULT,DIAGNOSTIC, FLUID FINAL DIAGNOSIS A. VAGINAL VAULT,DIAGNOSTIC, FLUID Satisfactory for interpretation. Negative for intraepithelial lesion or malignancy. This specimen has been analyzed by the ThinPrep Imaging System, an automated imaging and review system, which assists the laboratory in evaluating cells on ThinPrep Pap tests. Following automated imaging, selected ruffin from every slide are reviewed by a automobile wrecker. NARENDRA Lopez (ASCP) (Electronic Signature) CLINICAL DATA HIST MALIGNANCY H/O OVARIAN CANCER HPV Testing: Yes, Reflex HPV for ASCUS Date of Last Menstrual Period: Hysterectomy STAINS A: VAGINAL VAULT,DIAGNOSTIC, FLUID THIN PREP CLINICAL TRANSFORMATION SPECIALIST Elinor Humphries M.D., Recyclable Materials Sorter Date of Report: 08/07/2017 Date of Procedure: 08/01/2017 Date of Receipt: 08/04/2017 Submitted by: CHERIE PERKINS Location: [facility] Diagnostic interpretation performed at [facility], [address], [facility] [address]. The Pap Smear is a screening test for cervical cancer. False negative results occur with all screening tests, emphasizing the need for rescreening at recommended intervals, and clinical correlation. CNOV Observed: 08/01/2017 Status: COMPLETED Source: [place] 9:[address] [facility] [place] REPOSITORY Office Visit (WOOB) KATHY PURI ([id number]) 1950 F Date Time Provider Department 08/01/17 9:30 AM CHERIE PERKINS (VANESSA) [facility] During your visit today, we recorded the following information about you: Blood pressure Weight Height 152/80 75.8 kg 1.54 m Cherie Perkins APRN.CNP 08/01/2017 10:00 AM Signed Kathy Xie Jaxson is a 67 year old who presents for her annual gynecologic exam with complaints, vaginal discharge and vaginal itching. Postmenopausal: Yes since 2011 HRT use: No. Last Pap: 2016 normal History of abnormal pap: Yes benign Last mammogram: 2017 normal History of abnormal mammogram: No Sexually active: No Obstetric History T3 L3 SAB0 TAB0 Ectopic0 Multiple0 Live Births0 Comment: Vaginal deliveries X 3 PAST MEDICAL HISTORY Diagnosis Date - Atrial fibrillation ([facility]) 07/16/2011 - CAD (coronary artery disease) seeing Dr. Treivño - Chronic lower back pain - DDD (degenerative disc disease), lumbar - Depression - GERD (gastroesophageal reflux disease) - H/O heart artery stent 7 Stents, last 2006 - Hypertension - IBS (irritable bowel syndrome) - Myocardial infarction ([facility]) x2 - Obesity - Ovarian cancer ([facility]) 09/13/[address] Blank - PAD (peripheral artery disease) ([facility]) Dr. Sathish Gar - Restless leg syndrome 07/16/2011 - Sleep apnea on Bipap - Tobacco use - Vulvovaginitis 07/16/2011 PAST SURGICAL HISTORY Procedure Laterality Date - COLONOSCOP W/ OR W/O BRSH SPEC 06/16/13 Colonoscopy - EGD W/O OR W/BRUSH/WASH 06/16/13 EGD - REMOVE TONSILS/ADENOIDS,<12 Y/O - REVSC OPN/PRG FEM/POP W/ANGIOPLASTY UNI Right 01/05/15 - REVSC OPN/PRG FEM/POP W/ANGIOPLASTY UNI Left 02-15-15 - REVSC OPN/PRG FEM/POP W/ANGIOPLASTY UNI Left 09/23/2016 - REVSC OPN/PRQ FEM/POP W/STNT/ANGIOP SM VSL 11-26-13 - REVSC OPN/PRQ FEM/POP W/STNT/ANGIOP SM VSL 01/07/14 - STENTS (SPECIFY) 1999 AND 2006 7 Stents - TOTAL ABD HYSTEREC+LTD NODES 2012 DIOMEDES BSO ovarian cancer FAMILY HISTORY Problem Relation Age of Onset - Heart Father [place] - Stroke Maternal Grandfather - Hypertension Sister - Psychiatry Sister SOCIAL HISTORY Social History Substance Use Topics - Smoking status: Former Smoker Years: 47.00 Types: Cigarettes Quit date: 04/24/2017 - Smokeless tobacco: Never Used Comment: <5 per day - Alcohol use No REVIEW OF SYSTEMS Abdomen: No abdominal pain, nausea, vomiting, or constipation. No bloating, early satiety, indigestion, or increased flatulence. IBS- diarrhea Bladder: No dysuria, gross hematuria, urinary frequency, urinary urgency, or incontinence Breast: No breast lumps, nipple d/c, overlying skin changes, redness or skin retraction Allergies and current medication updated:Yes EXAM: There were no vitals taken for this visit. GENERAL: pleasant, female in no apparent distress HEENT: Normocephalic, atraumatic, mucus membranes moist and no lesions NECK: Supple, full range of motion, no adenopathy and thyroid normal DERMATOLOGY: Normal, without lesions, non-icteric and non-hirsute BREAST: soft, non-tender, symmetric, no dominant mass, normal nipple-areolar complex, no lymphadenopathy and no nipple discharge CHEST: Normal inspiratory effort ABDOMEN: soft, non-tender and no masses PELVIC: external genitalia normal, normal Bartholin's glands, urethra, [place]'s glands, no vulvar lesions, physiologic discharge present, normal appearing perineal body and perianal region, cervix surgically absent BIMANUAL: non-tender and uterus surgically absent RECTOVAGINAL: deferred. NEURO: alert and oriented x3,exam grossly non-focal EXTREMITIES: normal ASSESSMENT/PLAN: 1) Health maintenance: Pap done with HPV. Pap/HPV up to date. Mammogram ordered Nutrition, exercise and routine health maintenance exams reviewed. Calcium/Vitamin D supplementation information provided. 2) Follow up one year or sooner as needed 3) Diflucan ordered 4) BV and yeast sent Cherie Perkins, MAY.VANESSA Juan Psr 08/07/2017 1:32 PM Signed pap logged, letter sent. Lena Juan Psr Referring Provider: SELF [200] Allergies As of Date: 08/01/2017 (No Known Allergies) Date Reviewed: 08/01/2017 Reviewed by: Cherie Valladares) Brianne - Fully Assessed Reason for Visit: Yearly Exam [187] Primary Visit Diagnosis:Encounter for gynecological examination without abnormal finding [Z01.419] Other Visit Diagnoses:Encounter for screening mammogram for malignant neoplasm of breast [Z12.31] Personal history of ovarian cancer [Z85.43] Vaginal irritation [N89.8] Order(s):DENTON SCREENING [[id number]] Order #: [id number] FUTURE PAP FLUID VAGINAL VAULT DIAGNOSTIC [[id number]] Order #: [id number]. #:[id number] [] fluconazole (DIFLUCAN) 150 mg tabletTake 1 tablet by mouth one time only for 1 dose.Disp: 1 tabletRfl: 0 BACT/CHAYO VAG GRAM STAIN [SQBVCNSM] Order #: [id number] FUTURE Prescriptions as of 08/01/2017 Sig: ISOSORBIDE MONONITRATE ER 60 * Take 1 tablet by mouth once d* METOPROLOL TARTRATE 100 MG TA* Take 1 tablet by mouth twice * CITALOPRAM 40 MG TABLET TAKE 1 TABLET EVERY DAY AMITRIPTYLINE 25 MG TABLET TAKE 3 TABLETS DAILY AT BEDTI* ASCORBIC ACID (VITAMIN C) 500* Take 500 mg by mouth once elliott* ADVAIR DISKUS 500 MCG-50 MCG/* Inhale 1 Puff as instructed o* VENTOLIN HFA INHALATION Inhale 1 Puff as instructed a* AMLODIPINE 10 MG TABLET Take 1 tablet by mouth once d* DICYCLOMINE 10 MG CAPSULE Take 1 capsule by mouth befor* PRAMIPEXOLE 1 MG TABLET Take 1 tablet by mouth daily * CLOPIDOGREL 75 MG TABLET Take 1 tablet by mouth once d* AMIODARONE 200 MG TABLET Take 1 tablet by mouth once d* X RANITIDINE 150 MG TABLET Take 1 tablet by mouth twice * X ATORVASTATIN 40 MG TABLET Take 1 tablet by mouth once d* MULTIVITAMIN CAPSULE Take 1 capsule by mouth once * VITAMIN E (BULK) MISC LISINOPRIL 40 MG TABLET Take 1 tablet by mouth once d* ACETAMINOPHEN 500 MG TABLET Take 500 mg by mouth every 6 * DIPHENOXYLATE-ATROPINE 2.5 MG* Take 5 mL by mouth four times* RIVAROXABAN 20 MG TABLET Take 20 mg by mouth daily wit* MELATONIN ORAL Take by mouth once daily. LIDOCAINE 5 % TOPICAL PATCH Apply 1 Patch as directed orly* NITROGLYCERIN 0.4 MG SUBLINGU* Dissolve 1 tablet under the t* FLUCONAZOLE 150 MG TABLET Take 1 tablet by mouth one ti* CIPROFLOXACIN 0.3 % EYE DROPS Use 1 Drop in the left eye fo* KETOROLAC 0.4 % EYE DROPS Use 1 Drop in the left eye fo* PREDNISOLONE ACETATE 1 % EYE * Use 1 Drop in the left eye fo* Problem List As Of Date 08/01/2017 Noted Resolved Vulvovaginitis [N76.0] INVALID FOR*01/13/2014 Atrial fibrillation [I48.91] INVALID FOR* Restless leg syndrome [G25.81] INVALID FOR* Hypertension [I10] Heart disease [I51.9] 01/29/2017 More... Pelvic mass in female [R19.00] INVALID FOR*05/07/2013 PAD (peripheral artery disease) [I73.9] INVALID FOR* History of myocardial infarction [I25.2] INVALID FOR* Ovarian cancer [C56.9] INVALID FOR*05/07/2013 Cellulitis, abdominal wall [L03.311] INVALID FOR*01/29/2017 Personal history of malignant neoplasm of ovary*INVALID FOR* Chronic pain [G89.29] INVALID FOR* Lumbar radiculopathy [M54.16] INVALID FOR* DDD (degenerative disc disease), lumbar [M51.36]INVALID FOR* Myofascial pain [M79.1] INVALID FOR* Pelvic pain INVALID FOR*01/02/2016 Urinary frequency [R35.0] INVALID FOR* Hematuria, microscopic [R31.29] INVALID FOR* Nocturia [R35.1] INVALID FOR* S/P coronary artery stent placement [Z95.5] INVALID FOR* Tobacco abuse [Z72.0] INVALID FOR* Family history of ischemic heart disease [Z82.4*INVALID FOR* Dyslipidemia [E78.5] INVALID FOR* Shortness of breath [R06.02] INVALID FOR* Pain of left lower extremity [M79.605] INVALID FOR* CAD (coronary artery disease) [I25.10] GERD (gastroesophageal reflux disease) [K21.9] Prescriptions ordered this encounter Disp Refills Start End FLUCONAZOLE 150 MG TABLET 1 ta* 0 08/01/2017 08/01/2017 Route: ORAL Sig: Take 1 tablet by mouth one time only for 1 dose. Disposition: Return in about 1 year (around 08/01/2018) for Routine CLINICAL TRANSFORMATION SPECIALIST exam. Follow-up and Disposition History Recorded Letter Text Cherie Perkins CNP [facility] [address], [place] [address] Kathy Puri [address] [facility] [address] 08/07/2017 [facility]: [id number] Dear Kathy, We are pleased to inform you that your recent Pap Test was within normal limits. Because Pap tests are so effective in the early detection of cervical cancer, you are encouraged to continue having the test at regular intervals. You will be due for a 1 year Gynecological Exam after this date 08/07/2018. If you have any questions regarding the above information, do not hesitate to call our office at between the hours of 8:00 a.m. and 5:00 p.m. Sincerely, Cherie Perkins CNP Encounter Status:Closed by CHERIE PERKINS on 08/01/17 PROGRESS Observed: 08/01/2017 Status: COMPLETED Source: [place] 9:[address] [facility] REPOSITORY O ID: [id number] Author: Cherie (Pre Press Proofer) Brianne Service: (none) Author Type: Nurse Practitioner Type: Progress Notes Filed: 08/01/2017 10:00 AM Note Text: Kathy Puri is a 67 year old who presents for her annual gynecologic exam with complaints, vaginal discharge and vaginal itching. Postmenopausal: Yes since 2011 HRT use: No. Last Pap: 2016 normal History of abnormal pap: Yes benign Last mammogram: 2017 normal History of abnormal mammogram: No Sexually active: No Obstetric History T3 L3 SAB0 TAB0 Ectopic0 Multiple0 Live Births0 Comment: Vaginal deliveries X 3 PAST MEDICAL HISTORY Diagnosis Date - Atrial fibrillation ([facility]) 07/16/2011 - CAD (coronary artery disease) seeing Dr. Treviño - Chronic lower back pain - DDD (degenerative disc disease), lumbar - Depression - GERD (gastroesophageal reflux disease) - H/O heart artery stent 7 Stents, last 2006 - Hypertension - IBS (irritable bowel syndrome) - Myocardial infarction ([facility]) x2 - Obesity - Ovarian cancer ([facility]) 09/13/[address] Blank - PAD (peripheral artery disease) ([facility]) Dr. Sathish Gar - Restless leg syndrome 07/16/2011 - Sleep apnea on Bipap - Tobacco use - Vulvovaginitis 07/16/2011 PAST SURGICAL HISTORY Procedure Laterality Date - COLONOSCOP W/ OR W/O BRSH SPEC 06/16/13 Colonoscopy - EGD W/O OR W/BRUSH/WASH 06/16/13 EGD - REMOVE TONSILS/ADENOIDS,<12 Y/O - REVSC OPN/PRG FEM/POP W/ANGIOPLASTY UNI Right 01/05/15 - REVSC OPN/PRG FEM/POP W/ANGIOPLASTY UNI Left 02-15-15 - REVSC OPN/PRG FEM/POP W/ANGIOPLASTY [facility] Left 09/23/2016 - REVSC OPN/PRQ FEM/POP W/STNT/ANGIOP VS 11-26-13 - REVSC OPN/PRQ FEM/POP W/STNT/ANGIOP [facility] 01/07/14 - STENTS (SPECIFY) 1999 AND 2006 7 Stents - TOTAL ABD HYSTEREC+LTD NODES 2012 DIOMEDES BSO ovarian cancer FAMILY HISTORY Problem Relation Age of Onset - Heart Father [place] - Stroke Maternal Grandfather - Hypertension Sister - Psychiatry Sister SOCIAL HISTORY Social History Substance Use Topics - Smoking status: Former Smoker Years: 47.00 Types: Cigarettes Quit date: 04/24/2017 - Smokeless tobacco: Never Used Comment: <5 per day - Alcohol use No REVIEW OF SYSTEMS Abdomen: No abdominal pain, nausea, vomiting, or constipation. No bloating, early satiety, indigestion, or increased flatulence. IBS- diarrhea Bladder: No dysuria, gross hematuria, urinary frequency, urinary urgency, or incontinence Breast: No breast lumps, nipple d/c, overlying skin changes, redness or skin retraction Allergies and current medication updated:Yes EXAM: There were no vitals taken for this visit. GENERAL: pleasant, female in no apparent distress HEENT: Normocephalic, atraumatic, mucus membranes moist and no lesions NECK: Supple, full range of motion, no adenopathy and thyroid normal DERMATOLOGY: Normal, without lesions, non-icteric and non-hirsute BREAST: soft, non-tender, symmetric, no dominant mass, normal nipple-areolar complex, no lymphadenopathy and no nipple discharge CHEST: Normal inspiratory effort ABDOMEN: soft, non-tender and no masses PELVIC: external genitalia normal, normal Bartholin's glands, urethra, [place]'s glands, no vulvar lesions, physiologic discharge present, normal appearing perineal body and perianal region, cervix surgically absent BIMANUAL: non-tender and uterus surgically absent RECTOVAGINAL: deferred. NEURO: alert and oriented x3,exam grossly non-focal EXTREMITIES: normal ASSESSMENT/PLAN: 1) Health maintenance: Pap done with HPV. Pap/HPV up to date. Mammogram ordered Nutrition, exercise and routine health maintenance exams reviewed. Calcium/Vitamin D supplementation information provided. 2) Follow up one year or sooner as needed 3) Diflucan ordered 4) BV and yeast sent Cherie Perkins APRN.[facility] EMERGENCY DEPARTMENT Observed: 07/28/2017 Status: F Source: [place] SUMMARY 11:18 PM [facility] REPOSITORY [facility] Medical Records Department [address] [place] [address] Emergency Department Summary 07/28/17 1859 MR#: [id number] Acct: [id number] Name: KATHY PURI Rep #: [id number] : 1950 67 From: Antonio Mckeon MD PCP: Feng Hayes MD Status: DEP ER - ER Visit Summary Date of Service: 07/28/17 Chief Complaint: Chest pain History of Present Illness: The patient is a 67 F with history of significant coronary vascular disease status post stents by 7, paroxysmal atrial fibrillation, peripheral vascular disease presents to the emergency department chest pain. Patient follows with Dr. Treviño. She states she has been in her normal state of health. Today, at approximately 4:00, she had a left-sided chest pain that went into her left neck and left arm. It started while she was driving. She states that she took 3 of her nitro at home and help the pain. The pain then returned. She states this is very similar to when she is a heart attack in the past. She did have a stress test about a year ago. Her last heart catheterization she thinks was 2 years ago. She did have to get new stent at that time. She has been compliant with all of her medications. She is on Xarelto and Plavix. Physical Examination: Vital signs reviewed General: Well-nourished, well-developed Head: Normocephalic, atraumatic Eyes: Pupils equal and reactive, extraocular muscles intact Neck, supple, no lymphadenopathy Heart: Regular rate and rhythm Respiratory: No distress, clear bilaterally Abdomen: Soft, nontender, nondistended, no peritoneal signs Back: Nontender Extremities: Nontender, no edema, no cords Skin: Normal color no rash Neuro: Alert and oriented, no focal or lateralizing deficits Test Results: [] Emergency Department Course and Treatment: The patient presents with chest pain. She was given sublingual nitro nitro paste was applied. She was pain-free. Her initial EKG did not show acute ischemic change. A repeat EKG was also unremarkable. My plan was to admit the patient for cardiac rule out especially given her significant history. The patient states that she cannot stay. She has custody of her grandchild and has no one that can take care of it. I did discuss this with Dr. Treviño who actually came and saw the patient in the emergency department. He did agree with my plan for at least a repeat troponin to make sure she was not actively infarcting. The patient agreed with this. She had a repeat cardiac enzymes which were normal. A repeat EKG was also unchanged. She remained pain-free. We are going to increase her Imdur at this time. The patient will leave AGAINST MEDICAL ADVICE, but is aware that if anything changes she will return immediately. She does have capacity to make her own decisions. The patient is discharged. Treatment Plan: [] Disposition: Discharge Impression:. Chest pain with history of coronary vascular disease This note was generated with Noom dictation software. It may contain incorrect words, spelling, and punctuation that were not noted in review of the chart prior to signing ED Disposition - Plan for ED Patient: Disposition: Home or Assisted Living Chief Complaint: Chest Pain Instructions: ED Chest Pain Atypical Unkn Cause Prescriptions: Isosorbide Mononitrate [Imdur] 60 mg PO BID #60 tab Referrals: Jaime Treviño MD [STAFF PHYSICIAN] - What to do if you have Problems For any increased pain, shortness of breath, bleeding, nausea or vomiting, chest pain, or any unexpected problems, contact your Primary Care Provider. Call [facility] ([phone]) or report to the closest Emergency Room. Call 911 if necessary. 07/28/17 2318 <Electronically signed by Antonio Mckeon MD> Date Antonio Mckeon MD Cosigner Signature (If Indicated): Date CC: Feng Hayes MD TROPONIN-I Collected: 07/28/2017 Status: F Source: [place] 9:40 PM [facility] REPOSITORY Order Comment: Comments: Should be drawn 2H after initial Troponin obtained TYPE CODE TESTS RESULT OUT OF RANGE REFERENCE UNITS LAB L501.4010 <0.045 ng/mL Normal < 0.015 TROPONIN-I Result Comment: TROPONIN-I EXPECTED VALUES <0.045 Negative 0.045 - 0.590 Consistent with Cardiac Damage > OR = 0.600 Critical Value Not every elevated troponin is indicative of [place]. These values should be used with clinical judgement in examining the patient's clinical picture for diagnosis. To establish a diagnosis of [place] versus myocardial injury, there must be a demonstrated rise and/or fall in the troponin values, in addition to ischemic symptoms, EKG changes, new regional wall motion abnormality, and/or angiographical evidence. PLEASE NOTE: REFERENCE RANGES EDITED 17 Performed By: #### L501.4010 #### [facility] [address] [place], [address] CHEST 1 VIEW Observed: 07/28/2017 Status: F Source: [place] ([place]) 6:40 PM [facility] REPOSITORY [facility] Imaging Services [address] [place] [address] Chest 1 View (Portable) MR#: [id number] Acct: [id number] Name: KATHY PURI Rep #: [id number] : 1950 F 67 From: Delmy Simmons MD PCP: Feng Hayes MD Status: REG ER Study: Chest 1 View (Portable) Date of Exam: 07/28/17 Exam# [id number] Ordering Dr: Antonio Mckeon MD XR Chest 1 View INDICATION: CHEST PAIN COMPARISON: October 01, 2016, April 25, 2017 FINDINGS: Heart size and pulmonary vascularity are within normal limits. The lungs are clear without evidence of airspace consolidation or pleural effusion. The osseous structures are grossly unremarkable. RAD/Chest 1 View (Portable) IMPRESSION: No radiographic evidence of acute intrathoracic disease. at 1902 Reported and signed by: Delmy Simmons MD Electronically Signed: Delmy Simmons MD at 19:01 EDT Tel , Service support , CC: Feng Hayes MD; Antonio Mckeon MD [employer] Coach: Signed CBC W/DIFF, AUTOMATED Collected: 07/28/2017 Status: F Source: [place] 6:37 PM [facility] REPOSITORY TYPE CODE TESTS RESULT OUT OF RANGE REFERENCE UNITS LAB L100.1000 4.4-11.0 K/mm3 Normal WBC 6.8 LAB L100.1200 4.2-5.4 M/mm3 Normal RBC 4.57 LAB L100.1300 12.0-15.0 g/dl Normal HGB 13.5 LAB L100.1400 37-47 % Normal HCT 39.9 LAB L100.1500 81-99 fL Normal MCV 87.3 LAB L100.1600 27.0-32.0 pg Normal MCH 29.5 LAB L100.1700 32-36 g/gl Normal MCHC 33.8 LAB L100.1810 11.6-14.6 % Normal RDW CV 13.7 LAB L100.1820 35.1-43.9 fl Normal RDW SD 43.2 LAB L100.1900 150-450 K/mm3 Normal PLT 213 LAB L100.2000 6.2-12.0 fl Normal MPV 11.0 LAB L100.2100 47-70 % Normal NEUT% 68.5 LAB L100.2200 19-41 % Normal LY% 22.1 LAB L100.2300 0-10 % Normal MONO% 6.5 LAB L100.2400 0-5 % Normal EO% 2.5 LAB L100.2500 0-1 % Normal BASO% 0.1 LAB L100.2550 0.0-0.9 % Normal IM GRAN % 0.300 Result Comment: IG% - Immature Granulocytes (promyelocytes, myelocytes and metamyelocytes) > 1% indicates that a LEFT SHIFT is Present. LAB L100.2620 2.0-7.7 X10 3/uL Normal Absolute Neut 4.7 LAB L100.2720 0.83-4.51 X10 3/ul Normal Absolute Lymph 1.51 Performed By: #### L100.0100 #### [facility] [address] [place], [address] BASIC METABOLIC Collected: 07/28/2017 Status: F Source: [place] PROFILE ([facility]) 6:37 PM [facility] REPOSITORY TYPE CODE TESTS RESULT OUT OF RANGE REFERENCE UNITS LAB L501.0100 74-106 mg/dL Normal GLU 95 Result Comment: Please note revised GLUCOSE reference range effective 2017. LAB L501.1000 7-18 mg/dL Normal BUN 12 LAB L501.1100 0.55-1.02 mg/dL Normal CREAT,SERUM 0.96 Result Comment: The validity of the calculated GFR AND GFRAA in patients over 70 years has not been determined. Clinical correlation is essential. LAB L501.1110 >60 mL/min Normal EST GFR 61 Result Comment: Non- GFR Calc LAB L501.1115 >60 mL/min Normal EST GFR - AA 74 Result Comment: GFR Calc LAB L501.1255 ml/min Normal Estimated CRCL 44.36 LAB L501.1300 10-20 RATIO Normal BUN/CRE 12.5 LAB L501.2200 8.5-10 mg/dL Normal .1 CA 8.9 LAB L501.5300 136-14 mmol/L Normal 5 NA 143 LAB L501.5600 3.5-5. mmol/L Normal 1 K 3.6 LAB L501.5900 98-107 mmol/L High CL 108 LAB L501.6100 21.0-3 mmol/L Normal 2.0 CO2 29.0 LAB L501.6200 5-15 Normal GAP 6 Performed By: #### L500.2500, L501.4010 #### [facility] [address] [facility] [place], [place], [address] TROPONIN-I Collected: 07/28/2017 Status: F Source: [place] 6:37 PM [facility] REPOSITORY TYPE CODE TESTS RESULT OUT OF RANGE REFERENCE UNITS LAB L501.4010 <0.045 ng/mL Normal < 0.015 TROPONIN-I Result Comment: TROPONIN-I EXPECTED VALUES <0.045 Negative 0.045 - 0.590 Consistent with Cardiac Damage > OR = 0.600 Critical Value Not every elevated troponin is indicative of [place]. These values should be used with clinical judgement in examining the patient's clinical picture for diagnosis. To establish a diagnosis of [place] versus myocardial injury, there must be a demonstrated rise and/or fall in the troponin values, in addition to ischemic symptoms, EKG changes, new regional wall motion abnormality, and/or angiographical evidence. PLEASE NOTE: REFERENCE RANGES EDITED 17 Performed By: #### L500.2500, L501.4010 #### [facility] [address] [place], [place], [address] LIVER PROFILE Collected: 05/28/2017 Status: F Source: [place] 10:08 AM [facility] REPOSITORY TYPE CODE TESTS RESULT OUT OF RANGE REFERENCE UNITS LAB L501.1500 6.4-8.2 g/dL Normal T PROT 6.9 LAB L501.1800 3.2-5.0 g/dL Normal ALB 3.4 LAB L501.1950 2.2-4.2 g/dL Normal GLOB 3.5 LAB L501.4100 15-37 U/L Normal AST 19 LAB L501.4305 45-117 U/L Normal ALK P 114 LAB L501.4405 13-56 U/L Normal ALT 31 Result Comment: Please note revised ALT reference range effective 2017. LAB L501.4600 0.20-1.00 mg/dL Normal T BILI 0.60 LAB L501.4700 0.00-0.30 mg/dL Normal D BILI 0.16 Performed By: #### L500.3400, L500.4100 #### [facility] [address] [facility] [place], [place], [address] LIPID PROFILE Collected: 05/28/2017 Status: F Source: [place] 10:08 AM [facility] REPOSITORY TYPE CODE TESTS RESULT OUT OF RANGE REFERENCE UNITS LAB L501.4900 200 mg/dL Normal CHOL 125 Result Comment: <200 mg/dL Desirable 200-240 mg/dL Borderline >240 mg/dL High Risk LAB L501.5000 mg/dL Normal TRIG 109 Result Comment: The drugs N-Acetylcysteine and Metamizole may falsely depress this assay. Serum Triglycerides Reference Interval Normal <150 mg/dL Borderline high 150 - 199 mg/dL High 200 - 499 mg/dL Very High > or = 500 mg/dL LAB L501.6400 mg/dL Normal HDL 46 Result Comment: The drugs N-Acetylcysteine and Metamizole may falsely depress this assay. Reference Range HDL <40 mg/dL Low HDL Cholesterol HDL >or= 60 mg/dL High HDL Cholesterol LAB L501.6500 0-130 mg/dL Normal LDL 57 LAB L501.6600 5-40 mg/dL Normal VLDL 22 Performed By: #### L500.3400, L500.4100 #### [facility] [address] [facility] [place], [place], [address] CNOV Observed: 05/22/2017 Status: COMPLETED Source: [place] 10:20 AM [facility] REPOSITORY Office Visit (FAMPWS) KATHY PURI ([id number]) 1950 F Date Time Provider Department 05/22/17 10:20 AM CORINNE GRACE (VANESSA) FAMPWS During your visit today, we recorded the following information about you: Temperature Pulse Respiration Blood pressure 98.1 degrees 102/minute 16/minute 102/76 Weight 77.6 kg Corinne Grace CNP 05/22/2017 12:43 PM Signed 05/22/2017 Patient presents with: F/U 3 months SUBJECTIVE: This is a 67 year old that is here today for follow up chronic conditions. She states that she recovered well from the pneumonia. HTN: Ms. Puri indicates that she is feeling well and denies any symptoms referable to elevated blood pressure. Specifically denies headache, palpitations, dyspnea and peripheral edema. Patient denies any side effects of her medication(s) and is compliant with their regimen. She does not check BP's generally. Kathy gets minimal exercise. She watches her diet for sodium, low fat and low cholesterol most of the time. Last 3 Encounter BP Readings: Date: BP: 05/22/2017 102/76 04/28/2017 112/68 02/13/2017 138/70 Cardiac: She saw Dr. Treviño yesterday and ordered blood work and f/u in 6 months. She states that he did not make any medical changes. She states that the JVD that was noted resolved on its own. No new symptoms. She has required nitro twice since the last time she was seen in this office. PAD: Dr. Gar wants her to stop smoking. Lose weight and exercise before he will do more stents or procedures. Car not working, so walking more now. She smokes in the attic and she has been able to cut back by leaving her cigarettes up there. She states that she doesn't see them, so doen't think about wanting to smoke. She is down from 9-10 cigarettes a day to 3. She is confident that she will be able to quit using this method. He will f/u with her in 6 months to discuss a bypass as long as she can make these changes. No concerns from pt today. GERD: zantac works, but not always. No certain triggers. Will occasionally wake up with sour taste in mouth. Does not eat 3 hours before bed. She does drink quite a bit of caffinated coffee a day and chews a lot of gum. She feels that she can cut back on the caffeine and switch to decaf coffee and she can cut out the peppermint to see if she will notice a change in symptoms. Depression/Anxiety/Sleep: She states that she has been doing well until son had stroke 2 weeks ago, she states that she is struggling at times. She is seeing a counsleor every 2 weeks and able to go more if needed. She does not have a strong relationship with her sons and their wives, so the fact that she doesn't see her grandchildren is hard. She feels that she is able to manage right now with the new stressors and will reach out if needed. Fall: she mentions that she fell down a few stairs a couple to times in the last couple of months. It was more like a lose of footing that required her to fall back and sit hard. She denies tripping. Denies feeling dizzy or lightheaded. She is wondering if it should be her strength or balance that is causing it. She denies any injury from these falls other than some slight soreness for a couple of days after. PAST MEDICAL HISTORY Diagnosis Date - Atrial fibrillation ([facility]) 07/16/2011 - CAD (coronary artery disease) seeing Dr. Treviño - Chronic lower back pain - DDD (degenerative disc disease), lumbar - Depression - GERD (gastroesophageal reflux disease) - H/O heart artery stent 7 Stents, last 2006 - Hypertension - IBS (irritable bowel syndrome) - Myocardial infarction ([facility]) x2 - Obesity - Ovarian cancer ([facility]) 09/13/[address] Blank - PAD (peripheral artery disease) ([facility]) Dr. Sathish Gar - Restless leg syndrome 07/16/2011 - Sleep apnea on Bipap - Tobacco use - Vulvovaginitis 07/16/2011 ALLERGIES Review of patient's allergies indicates no known allergies. MEDICATIONS Current Outpatient Prescriptions: ascorbic acid, vitamin C, (VITAMIN C) 500 mg tablet Take 500 mg by mouth once daily. ciprofloxacin HCl (CILOXAN) 0.3 % ophthalmic solution Use 1 Drop in the left eye four times daily. 3 days before surgery then continue after surgery. ADVAIR DISKUS 500-50 mcg/dose dsdv Inhale 1 Puff as instructed once daily. prednisoLONE acetate (PRED FORTE, ECONOPRED PLUS) 1 % ophthalmic suspension Use 1 Drop in the left eye four times daily. 3 days before surgery and continue after surgery. ALBUTEROL SULFATE (VENTOLIN HFA INHALATION) Inhale 1 Puff as instructed as needed. ranitidine (ZANTAC) 150 mg tablet Take 1 tablet by mouth twice daily. amLODIPine (NORVASC) 10 mg tablet Take 1 tablet by mouth once daily. dicyclomine (BENTYL) 10 mg capsule Take 1 capsule by mouth before meals and at bedtime. pramipexole (MIRAPEX) 1 mg tablet Take 1 tablet by mouth daily at bedtime. isosorbide mononitrate ER (IMDUR) 60 mg 24 hr tablet Take 1 tablet by mouth once daily. clopidogrel (PLAVIX) 75 mg tablet Take 1 tablet by mouth once daily. amiodarone (PACERONE) 200 mg tablet Take 1 tablet by mouth once daily. atorvastatin (LIPITOR) 40 mg tablet Take 1 tablet by mouth once daily. citalopram (CELEXA) 40 mg tablet Take 1 tablet by mouth once daily. amitriptyline (ELAVIL) 25 mg tablet Take 3 tablets by mouth daily at bedtime. Multivitamin capsule Take 1 capsule by mouth once daily. VITAMIN E, BULK, MISC lisinopril (ZESTRIL, PRINIVIL) 40 mg tablet Take 1 tablet by mouth once daily. acetaminophen (TYLENOL EXTRA STRENGTH) 500 mg tablet Take 500 mg by mouth every 6 hours as needed. diphenoxylate-atropine sulfate (LOMOTIL) 2.5-0.025 mg/5 mL liquid Take 5 mL by mouth four times daily as needed. rivaroxaban (XARELTO) 20 mg tablet Take 20 mg by mouth daily with dinner. MELATONIN ORAL Take by mouth once daily. lidocaine (LIDODERM) 5 %(700 mg/patch) Apply 1 Patch as directed every 12 hours. nitroglycerin sublingual (NITROSTAT) 0.4 mg SL tablet Dissolve 1 tablet under the tongue as needed. FOR CHEST PAIN. IF NO RELIEF CALL 911 metoprolol tartrate, short acting, (LOPRESSOR) 100 mg tablet Take 100 mg by mouth twice daily. Ketorolac Tromethamine (ACLUAR LS) 0.4 % drop Use 1 Drop in the left eye four times daily. 3 days before surgery and continue after surgery. doxycycline hyclate (VIBRAMYCIN) 100 mg capsule hydrOXYzine (ATARAX) 10 mg/[address] 1-2 drops on tongue, wait 1/2 hour, if not drowsy may repeat CALCIUM CARBONATE (CALCIUM 300 ORAL) Take by mouth. triamcinolone acetonide (KENALOG) 0.1 % cream Apply 1 application to affected area twice daily. Apply sparingly to area for rash/itching. No current facility-administered medications for this visit. Medications and allergies reviewed by this provider. SOCIAL HISTORY Social History Marital status: Spouse name: Years of education: Number of children: 3 Occupational History Occupation Employer Comment Retired Social History Main Topics Smoking status: Former Smoker Packs/day: 0.00 Years: 47.00 Types: Cigarettes Quit date: 04/24/2017 Smokeless status: Never Used Comment: ANDlt;5 per day Alcohol use: No Drug use: No Sexual activity: No Comment: Postmenopausal REVIEW OF SYSTEMS see HPI OBJECTIVE: BP 102/76 (BP Site: Left Arm, BP Position: Sitting, BP Cuff Size: Regular Adult) Pulse 102 Temp 36.7 ?C (98.1 ?F) (Left Tympanic) Resp 16 Wt 77.6 kg (171 lb 1.9 oz) SpO2 97% BMI 32.87 kg/m2. Vital signs reviewed by this provider. PHYSICAL EXAMINATION: General appearance: Well appearing, alert, in no acute distress, well-hydrated, well nourished. Head: Normocephalic, no masses, lesions, tenderness or abnormalities Eyes: Anicteric sclera. Pupils are equally round and reactive to light. Extraocular movements are intact. Neck: Supple, no adenopathy; thyroid symmetric, normal size, no bruits, no JVD Lungs: Lungs clear to auscultation. No wheezing, rhonchi, rales Heart: RRR without murmur, gallop, or rubs. No ectopy Abdomen: Normal abdominal exam, Abdomen soft, non-tender. Bowel sounds normal. No masses, organomegaly Extremities: No deformities, edema, clubbing or cyanosis. Good capillary refill. ASSESSMENT/PLAN: 1. Essential hypertension - ICD9: 401.9, ICD10: I10 (primary diagnosis) - good control - Continue current medication(s) - Encouraged dietary sodium restriction/DASH diet - Recommended regular aerobic exercise. - Discussed need and benefit for weight loss. - Recheck in 3 months, sooner should new symptoms or problems arise. - Goal of BP ANDlt;140/90 - Patient counselled on smoking cessation. - Recommended no refined sugar, low refined starch, healthy oil intake (olive oil), healthy protein (fish) along the lines of the Mediterranean diet. 2. Dyslipidemia - ICD9: 272.4, ICD10: E78.5 - to be determined upon return of lab results- she believes that this was ordered by Dr. Treviño- will need to get records - Continue current medication. 3. PAD (peripheral artery disease) (HCC) - ICD9: 443.9, ICD10: I73.9 - continue to follow with Dr. Gar and follow plan developed with him 4. Gastroesophageal reflux disease, esophagitis presence not specified - ICD9: 530.81, ICD10: K21.9 - Discussed lifestyle modifications including losing weight, limiting caffeine, no meals three hours before sleep and head of bed elevation - Continue treatment with Zantac 150 mg BID 5. Fall, sequela - ICD9: 909.4, E929.3, ICD10: W19.XXXS - Discussed home safety - discussed monitoring symptoms that may be surrounding the time of a fall if it occurs again - CONSULT TO PHYSICAL THERAPY - Follow up if having more frequent falls 6. Tobacco abuse - ICD9: 305.1, ICD10: Z72.0 - commended efforts made to cut back. Encouraged to reach out if she would like pharmacological treatment - Cessation encouraged. - Physiologic and physical aspects of tobacco addiction as well as strategies for quitting were discussed. - Counseling was given focusing on the harmful effects of this addiction especially given the patient's medical condition(s) which will be worsened because of the chemicals in tobacco. Corinne Grace CNP Referring Provider: CORINNE GRACE ([facility]) [[id number]] Allergies As of Date: 05/22/2017 (No Known Allergies) Date Reviewed: 05/22/2017 Reviewed by: James Palma Ma - Fully Assessed Reason for Visit: F/U 3 months [1176] Primary Visit Diagnosis:Essential hypertension [I10] Other Visit Diagnoses:Dyslipidemia [E78.5] PAD (peripheral artery disease) (HCC) [I73.9] Gastroesophageal reflux disease, esophagitis presence not specified [K21.9] Fall, sequela [W19.XXXS] Tobacco abuse [Z72.0] Order(s):CONSULT TO PHYSICAL THERAPY [9032] Order #: [id number]: 1 Prescriptions as of 05/22/2017 Sig: ASCORBIC ACID (VITAMIN C) 500* Take 500 mg by mouth once elliott* CIPROFLOXACIN 0.3 % EYE DROPS Use 1 Drop in the left eye fo* ADVAIR DISKUS 500 MCG-50 MCG/* Inhale 1 Puff as instructed o* PREDNISOLONE ACETATE 1 % EYE * Use 1 Drop in the left eye fo* VENTOLIN HFA INHALATION Inhale 1 Puff as instructed a* RANITIDINE 150 MG TABLET Take 1 tablet by mouth twice * AMLODIPINE 10 MG TABLET Take 1 tablet by mouth once d* DICYCLOMINE 10 MG CAPSULE Take 1 capsule by mouth befor* PRAMIPEXOLE 1 MG TABLET Take 1 tablet by mouth daily * ISOSORBIDE MONONITRATE ER 60 * Take 1 tablet by mouth once d* CLOPIDOGREL 75 MG TABLET Take 1 tablet by mouth once d* AMIODARONE 200 MG TABLET Take 1 tablet by mouth once d* ATORVASTATIN 40 MG TABLET Take 1 tablet by mouth once d* CITALOPRAM 40 MG TABLET Take 1 tablet by mouth once d* AMITRIPTYLINE 25 MG TABLET Take 3 tablets by mouth daily* MULTIVITAMIN CAPSULE Take 1 capsule by mouth once * VITAMIN E (BULK) MISC LISINOPRIL 40 MG TABLET Take 1 tablet by mouth once d* ACETAMINOPHEN 500 MG TABLET Take 500 mg by mouth every 6 * DIPHENOXYLATE-ATROPINE 2.5 MG* Take 5 mL by mouth four times* RIVAROXABAN 20 MG TABLET Take 20 mg by mouth daily wit* MELATONIN ORAL Take by mouth once daily. LIDOCAINE 5 % TOPICAL PATCH Apply 1 Patch as directed orly* NITROGLYCERIN 0.4 MG SUBLINGU* Dissolve 1 tablet under the t* * METOPROLOL TARTRATE 100 MG TA* Take 100 mg by mouth twice da* KETOROLAC 0.4 % EYE DROPS Use 1 Drop in the left eye fo* Medication notes this encounter DOXYCYCLINE HYCLATE 100 MG CAPSULE >> James Haumesser Emmy 05/22/2017 9:52 AM >> HAUMESSER JAMES BOOTH [facility] May 22, 2017 9:52 AM Therapy complete. HYDROXYZINE HCL 10 MG/5 ML ORAL SOLUTION >> James Haumesser Emmy 05/22/2017 9:52 AM >> HAUMESSER JAMES BOOTH Saniya May 22, 2017 9:52 AM Therapy complete. CALCIUM 300 ORAL >> James Haumesser Emmy 05/22/2017 9:50 AM >> HAUMESSER JAMES BOOTH [facility] May 22, 2017 9:50 AM Vitamin C >> James Haumesser Emmy 05/22/2017 9:51 AM >> HAUMESSER JAMES BOOTH Saniya May 22, 2017 9:51 AM >> James Haumesser Emmy 05/22/2017 9:51 AM >> HAUMESSER JAMES BOOTH [facility] May 22, 2017 9:51 AM No longer taking. TRIAMCINOLONE ACETONIDE 0.1 % TOPICAL CREAM >> James Haumesser Emmy 05/22/2017 9:53 AM >> HAUMESSER JAMES BOOTH [facility] May 22, 2017 9:53 AM Therapy complete. Problem List As Of Date 05/22/2017 Noted Resolved Vulvovaginitis [N76.0] INVALID FOR*01/13/2014 Atrial fibrillation [I48.91] INVALID FOR* Restless leg syndrome [G25.81] INVALID FOR* Hypertension [I10] Heart disease [I51.9] 01/29/2017 More... Pelvic mass in female [R19.00] INVALID FOR*05/07/2013 PAD (peripheral artery disease) [I73.9] INVALID FOR* History of myocardial infarction [I25.2] INVALID FOR* Ovarian cancer [C56.9] INVALID FOR*05/07/2013 Cellulitis, abdominal wall [L03.311] INVALID FOR*01/29/2017 Personal history of malignant neoplasm of ovary*INVALID FOR* Chronic pain [G89.29] INVALID FOR* Lumbar radiculopathy [M54.16] INVALID FOR* DDD (degenerative disc disease), lumbar [M51.36]INVALID FOR* Myofascial pain [M79.1] INVALID FOR* Pelvic pain INVALID FOR*01/02/2016 Urinary frequency [R35.0] INVALID FOR* Hematuria, microscopic [R31.29] INVALID FOR* Nocturia [R35.1] INVALID FOR* S/P coronary artery stent placement [Z95.5] INVALID FOR* Tobacco abuse [Z72.0] INVALID FOR* Family history of ischemic heart disease [Z82.4*INVALID FOR* Dyslipidemia [E78.5] INVALID FOR* Shortness of breath [R06.02] INVALID FOR* Pain of left lower extremity [M79.605] INVALID FOR* CAD (coronary artery disease) [I25.10] GERD (gastroesophageal reflux disease) [K21.9] Medications Discontinued During This Encounter doxycycline hyclate (VIBRAMYCIN) 100* 04/25/2017 05/22/2017 Class: Historical Med Sig: Disc: Reason for discontinue is not on file. hydrOXYzine (ATARAX) 10 mg/5 mL syrup 100 * 1 03/19/2017 05/22/2017 Sig: Place 1-2 drops on tongue, wait 1/2 hour, if not drowsy may repeat Disc: Reason for discontinue is not on file. CALCIUM CARBONATE (CALCIUM 300 ORAL) 05/22/2017 Class: Historical Med Route: ORAL Sig: Take by mouth. Disc: Reason for discontinue is not on file. triamcinolone acetonide (KENALOG) 0.* 01/29/2017 05/22/2017 Class: Med Update Route: TOPICAL Sig: Apply 1 application to affected area twice daily. Apply sparingly to area for rash/itching. Disc: Reason for discontinue is not on file. Disposition: Return in about 3 months (around 08/22/2017). Follow-up and Disposition History Recorded Encounter Status:Closed by CORINNE GRACE on 05/22/17 PROGRESS Observed: 05/22/2017 Status: COMPLETED Source: [place] 10:[address] [facility] [place] REPOSITORY HNO ID: [id number] Author: Corinne ([employer]) Sugey Service: (none) Author Type: Nurse Practitioner Type: Progress Notes Filed: 05/22/2017 12:43 PM Note Text: 05/22/2017 Patient presents with: F/U 3 months SUBJECTIVE: This is a 67 year old that is here today for follow up chronic conditions. She states that she recovered well from the pneumonia. HTN: Ms. Puri indicates that she is feeling well and denies any symptoms referable to elevated blood pressure. Specifically denies headache, palpitations, dyspnea and peripheral edema. Patient denies any side effects of her medication(s) and is compliant with their regimen. She does not check BP's generally. Kathy gets minimal exercise. She watches her diet for sodium, low fat and low cholesterol most of the time. Last 3 Encounter BP Readings: Date: BP: 05/22/2017 102/76 04/28/2017 112/68 02/13/2017 138/70 Cardiac: She saw Dr. Treviño yesterday and ordered blood work and f/u in 6 months. She states that he did not make any medical changes. She states that the JVD that was noted resolved on its own. No new symptoms. She has required nitro twice since the last time she was seen in this office. PAD: Dr. Gar wants her to stop smoking. Lose weight and exercise before he will do more stents or procedures. Car not working, so walking more now. She smokes in the attic and she has been able to cut back by leaving her cigarettes up there. She states that she doesn't see them, so doen't think about wanting to smoke. She is down from 9-10 cigarettes a day to 3. She is confident that she will be able to quit using this method. He will f/u with her in 6 months to discuss a bypass as long as she can make these changes. No concerns from pt today. GERD: zantac works, but not always. No certain triggers. Will occasionally wake up with sour taste in mouth. Does not eat 3 hours before bed. She does drink quite a bit of caffinated coffee a day and chews a lot of gum. She feels that she can cut back on the caffeine and switch to decaf coffee and she can cut out the peppermint to see if she will notice a change in symptoms. Depression/Anxiety/Sleep: She states that she has been doing well until son had stroke 2 weeks ago, she states that she is struggling at times. She is seeing a counsleor every 2 weeks and able to go more if needed. She does not have a strong relationship with her sons and their wives, so the fact that she doesn't see her grandchildren is hard. She feels that she is able to manage right now with the new stressors and will reach out if needed. Fall: she mentions that she fell down a few stairs a couple to times in the last couple of months. It was more like a lose of footing that required her to fall back and sit hard. She denies tripping. Denies feeling dizzy or lightheaded. She is wondering if it should be her strength or balance that is causing it. She denies any injury from these falls other than some slight soreness for a couple of days after. PAST MEDICAL HISTORY Diagnosis Date - Atrial fibrillation ([facility]) 07/16/2011 - CAD (coronary artery disease) seeing Dr. Treviño - Chronic lower back pain - DDD (degenerative disc disease), lumbar - Depression - GERD (gastroesophageal reflux disease) - H/O heart artery stent 7 Stents, last 2006 - Hypertension - IBS (irritable bowel syndrome) - Myocardial infarction ([facility]) x2 - Obesity - Ovarian cancer ([facility]) 09/13/[address] Blank - PAD (peripheral artery disease) ([facility]) Dr. Sathish Gar - Restless leg syndrome 07/16/2011 - Sleep apnea on Bipap - Tobacco use - Vulvovaginitis 07/16/2011 ALLERGIES Review of patient's allergies indicates no known allergies. MEDICATIONS Current Outpatient Prescriptions: ascorbic acid, vitamin C, (VITAMIN C) 500 mg tablet Take 500 mg by mouth once daily. ciprofloxacin HCl (CILOXAN) 0.3 % ophthalmic solution Use 1 Drop in the left eye four times daily. 3 days before surgery then continue after surgery. ADVAIR DISKUS 500-50 mcg/dose dsdv Inhale 1 Puff as instructed once daily. prednisoLONE acetate (PRED FORTE, ECONOPRED PLUS) 1 % ophthalmic suspension Use 1 Drop in the left eye four times daily. 3 days before surgery and continue after surgery. ALBUTEROL SULFATE (VENTOLIN HFA INHALATION) Inhale 1 Puff as instructed as needed. ranitidine (ZANTAC) 150 mg tablet Take 1 tablet by mouth twice daily. amLODIPine (NORVASC) 10 mg tablet Take 1 tablet by mouth once daily. dicyclomine (BENTYL) 10 mg capsule Take 1 capsule by mouth before meals and at bedtime. pramipexole (MIRAPEX) 1 mg tablet Take 1 tablet by mouth daily at bedtime. isosorbide mononitrate ER (IMDUR) 60 mg 24 hr tablet Take 1 tablet by mouth once daily. clopidogrel (PLAVIX) 75 mg tablet Take 1 tablet by mouth once daily. amiodarone (PACERONE) 200 mg tablet Take 1 tablet by mouth once daily. atorvastatin (LIPITOR) 40 mg tablet Take 1 tablet by mouth once daily. citalopram (CELEXA) 40 mg tablet Take 1 tablet by mouth once daily. amitriptyline (ELAVIL) 25 mg tablet Take 3 tablets by mouth daily at bedtime. Multivitamin capsule Take 1 capsule by mouth once daily. VITAMIN E, BULK, MISC lisinopril (ZESTRIL, PRINIVIL) 40 mg tablet Take 1 tablet by mouth once daily. acetaminophen (TYLENOL EXTRA STRENGTH) 500 mg tablet Take 500 mg by mouth every 6 hours as needed. diphenoxylate-atropine sulfate (LOMOTIL) 2.5-0.025 mg/5 mL liquid Take 5 mL by mouth four times daily as needed. rivaroxaban (XARELTO) 20 mg tablet Take 20 mg by mouth daily with dinner. MELATONIN ORAL Take by mouth once daily. lidocaine (LIDODERM) 5 %(700 mg/patch) Apply 1 Patch as directed every 12 hours. nitroglycerin sublingual (NITROSTAT) 0.4 mg SL tablet Dissolve 1 tablet under the tongue as needed. FOR CHEST PAIN. IF NO RELIEF CALL 911 metoprolol tartrate, short acting, (LOPRESSOR) 100 mg tablet Take 100 mg by mouth twice daily. Ketorolac Tromethamine (ACLUAR LS) 0.4 % drop Use 1 Drop in the left eye four times daily. 3 days before surgery and continue after surgery. doxycycline hyclate (VIBRAMYCIN) 100 mg capsule hydrOXYzine (ATARAX) 10 mg/[address] 1-2 drops on tongue, wait 1/2 hour, if not drowsy may repeat CALCIUM CARBONATE (CALCIUM 300 ORAL) Take by mouth. triamcinolone acetonide (KENALOG) 0.1 % cream Apply 1 application to affected area twice daily. Apply sparingly to area for rash/itching. No current facility-administered medications for this visit. Medications and allergies reviewed by this provider. SOCIAL HISTORY Social History Marital status: Spouse name: Years of education: Number of children: 3 Occupational History Occupation Employer Comment Retired Social History Main Topics Smoking status: Former Smoker Packs/day: 0.00 Years: 47.00 Types: Cigarettes Quit date: 04/24/2017 Smokeless status: Never Used Comment: <5 per day Alcohol use: No Drug use: No Sexual activity: No Comment: Postmenopausal REVIEW OF SYSTEMS see HPI OBJECTIVE: BP 102/76 (BP Site: Left Arm, BP Position: Sitting, BP Cuff Size: Regular Adult) Pulse 102 Temp 36.7 ?C (98.1 ?F) (Left Tympanic) Resp 16 Wt 77.6 kg (171 lb 1.9 oz) SpO2 97% BMI 32.87 kg/m2. Vital signs reviewed by this provider. PHYSICAL EXAMINATION: General appearance: Well appearing, alert, in no acute distress, well-hydrated, well nourished. Head: Normocephalic, no masses, lesions, tenderness or abnormalities Eyes: Anicteric sclera. Pupils are equally round and reactive to light. Extraocular movements are intact. Neck: Supple, no adenopathy; thyroid symmetric, normal size, no bruits, no JVD Lungs: Lungs clear to auscultation. No wheezing, rhonchi, rales Heart: RRR without murmur, gallop, or rubs. No ectopy Abdomen: Normal abdominal exam, Abdomen soft, non-tender. Bowel sounds normal. No masses, organomegaly Extremities: No deformities, edema, clubbing or cyanosis. Good capillary refill. ASSESSMENT/PLAN: 1. Essential hypertension - ICD9: 401.9, ICD10: I10 (primary diagnosis) - good control - Continue current medication(s) - Encouraged dietary sodium restriction/DASH diet - Recommended regular aerobic exercise. - Discussed need and benefit for weight loss. - Recheck in 3 months, sooner should new symptoms or problems arise. - Goal of BP <140/90 - Patient counselled on smoking cessation. - Recommended no refined sugar, low refined starch, healthy oil intake (olive oil), healthy protein (fish) along the lines of the Mediterranean diet. 2. Dyslipidemia - ICD9: 272.4, ICD10: E78.5 - to be determined upon return of lab results- she believes that this was ordered by Dr. Treviño- will need to get records - Continue current medication. 3. PAD (peripheral artery disease) (HCC) - ICD9: 443.9, ICD10: I73.9 - continue to follow with Dr. Gar and follow plan developed with him 4. Gastroesophageal reflux disease, esophagitis presence not specified - ICD9: 530.81, ICD10: K21.9 - Discussed lifestyle modifications including losing weight, limiting caffeine, no meals three hours before sleep and head of bed elevation - Continue treatment with Zantac 150 mg BID 5. Fall, sequela - ICD9: 909.4, E929.3, ICD10: W19.XXXS - Discussed home safety - discussed monitoring symptoms that may be surrounding the time of a fall if it occurs again - CONSULT TO PHYSICAL THERAPY - Follow up if having more frequent falls 6. Tobacco abuse - ICD9: 305.1, ICD10: Z72.0 - commended efforts made to cut back. Encouraged to reach out if she would like pharmacological treatment - Cessation encouraged. - Physiologic and physical aspects of tobacco addiction as well as strategies for quitting were discussed. - Counseling was given focusing on the harmful effects of this addiction especially given the patient's medical condition(s) which will be worsened because of the chemicals in tobacco. Corinne Grace CNP CARDIOLOGY VISIT Observed: 05/20/2017 Status: F Source: [place] 10:53 AM [facility] REPOSITORY [facility] [address] [place] [address] OFFICE VISIT Date of Service: 05/20/17 MR#: [id number] Acct: [id number] Name: KATHY PURI Rep #: [id number] : 1950 Provider: Jaime Treviño MD Age/Sex: 67/F Location: [facility] [place] Status: Signed [facility] Chief Complaint: Follow-up visit. Details: KATHY PURI, is a 67 F who presents to the office today for a follow-up visit. She is a lady with a history of coronary artery disease paroxysmal atrial fibrillation status post angioplasty and stenting of her right coronary artery as well as her first acute marginal vessel. She returns for routine follow-up visit. She denies any chest discomfort suggestive of angina. She did have an episode of sharp chest pain which came on suddenly she went to the emergency room was evaluated and was told that it was unlikely to be a myocardial ischemic event. She is done well since then denying any dizziness or diaphoresis no near syncope or syncope. She has been compliant with her medications. She still uses tobacco products but very infrequently and a very small amount. Her physical exam today demonstrates clear lung ruffin regular rate and rhythm and no pedal edema. Intake Vital Signs05/20/17 Height 5 ft 2 in 05/20/17 Weight: 170 lb 05/20/17 Body Mass Index (BMI) 31.1 05/20/17 Blood Pressure 124/60 05/20/17 Blood Pressure Location Lt brachial Intake Visit Reasons: 6 M FU Is patient in pain?: No Allergies No Known Allergies Allergy (Verified 05/19/17 09:45) Medications Amitriptyline HCl [Elavil] 75 mg PO QHS 11/25/13 [History Confirmed 05/20/17] Citalopram [Celexa] 40 mg PO DAILY 11/25/13 [History Confirmed 05/20/17] Multivitamins,Therapeutic [Multivitamin] 1 tab PO DAILY 11/25/13 [History Confirmed 05/20/17] Pramipexole Di-HCl [Mirapex] 1 mg PO QHS 11/25/13 [History Confirmed 05/20/17] Amiodarone HCl 200 mg PO DAILY 07/06/16 [History Confirmed 05/20/17] Rivaroxaban [Xarelto] 20 mg PO DAILY 07/06/16 [History Confirmed 05/20/17] Lidocaine [Lidoderm Patch] 1 patch TOPICAL PRN PRN 09/20/16 [History Confirmed 05/20/17] Albuterol Inhaler [Ventolin Hfa] 1 - 2 puff INHALATION Q4H PRN PRN #1 inhaler 10/02/16 [Rx Confirmed 05/20/17] Metoprolol Tartrate [Lopressor (beta declan)] 50 mg PO BID #60 tab 10/02/16 [Rx Confirmed 05/20/17] Dicyclomine HCl 10 mg PO 4X/DAY 04/25/17 [History Confirmed 05/20/17] Melatonin 3 mg PO QHS PRN 04/25/17 [History Confirmed 05/20/17] lansoprazole 30 mg capsule,delayed release 30 mg PO QDAY cap 05/14/17 [History Confirmed 05/20/17] amlodipine 10 mg tablet 10 mg PO DAILY #90 tab 05/20/17 [Rx Confirmed 05/20/17] atorvastatin 40 mg tablet 40 mg PO QDAY 05/20/17 [History Confirmed 05/20/17] clopidogrel 75 mg tablet 75 mg PO DAILY #90 tab 05/20/17 [Rx Confirmed 05/20/17] fluticasone 500 mcg-salmeterol 50 mcg/dose blistr powdr for inhalation 1 inh INHALATION Q12H 05/20/17 [History Confirmed 05/20/17] isosorbide mononitrate ER 60 mg tablet,extended release 24 hr 60 mg PO QAM 05/20/17 [History Confirmed 05/20/17] ketorolac 0.4 % eye drops 3 drp OPHTHALMIC Q6H PRN ml 05/20/17 [History Confirmed 05/20/17] lisinopril 40 mg tablet 40 mg PO BID #180 tab 05/20/17 [Rx Confirmed 05/20/17] nitroglycerin 0.4 mg sublingual tablet 0.4 mg SUBLINGUAL Q5M PRN #25 tab 05/20/17 [Rx Confirmed 05/20/17] ranitidine 150 mg capsule 150 mg PO BID cap 05/20/17 [History Confirmed 05/20/17] PFSH Medical History Nicotine abuse (Chronic) Atherosclerotic peripheral vascular disease (Chronic) Atherosclerotic heart disease of [place] coronary artery without angina pectoris (Chronic) Encounter for long-term (current) use of other medications (Chronic) Body mass index 32.0-32.9, adult (Chronic) Family history of hypertension (Chronic) Tobacco abuse (Chronic) Dyspnea on exertion (Chronic) Wheezing (Chronic) Obesity (Chronic) Paroxysmal atrial fibrillation (Chronic) Tobacco user (Chronic) Atrial fibrillation with RVR (Chronic) Hypokalemia (Resolved) HTN (hypertension) (Chronic) IBS (irritable bowel syndrome) (Chronic) Non-STEMI (non-ST elevated myocardial infarction) (Chronic) HLD (hyperlipidemia) (Chronic) Anxiety and depression (Chronic) Angina pectoris (Resolved) CAD (coronary artery disease) (Chronic) PAD (peripheral artery disease) (Chronic) Surgical History History of left heart catheterization (Chronic) Stented coronary artery (Chronic) History of coronary angioplasty (Resolved) Family History Father Heart disease Hypertension Seizures Sister CVA (cerebral vascular accident) Hypertension Other Family history of hypertension Social History Smoking Status: Current every day smoker second hand exposure: No alcohol intake: current alcohol intake frequency: 0-2 drinks per day substance use type: does not use what type of physical activity do you participate in: none ROS Const Const: Negative for fatigue, weakness, body ache, fever(s), headache(s), chills, frequent falls, night sweats, daytime sleepiness, difficulty sleeping, excessive sweating, weight gain, weight loss, increased appetite, poor appetite, anorexia or other Eyes Eyes: Negative for blind spots, loss of peripheral vision, transient loss of vision, blurry vision, change in vision, double vision, floaters, tunnel vision or other ENT ENT: Negative for headache(s), dizziness, hearing loss, tinnitus, Nosebleed/epistaxis, balance problems, post nasal drip, lip swelling, tongue swelling, bleeding gums, hoarseness, neck pain, dry mouth or other Cardio Chest Pain: Yes (A couple episodes past 2 weeks, son had CVA, under much stress) Frequency: other (most recent episode last ) Onset: at rest Location: other (outer left breast near ribcage and armpit) Duration: brief (one minute) Exacerbation: other (spontaneous) Relieving: other (spontaneous) Palpitations: Yes Edema: None Muscle aches with walking: None Resp Respiratory: Positive for SOB with activity; negative for SOB at rest, SOB orthopnea\SOB lying down, Coughing up blood/hemoptysis, chest congestion, pain on inspiration, snoring, stridor, wheezing, crackles, paroxysmal nocturnal dyspnea or other GI GI: Negative nausea, vomiting, heartburn, constipation, belching, bloating, cramping, vomiting blood/hematemesis, bright, red blood in stools, black,tarry stools, loose stools, Difficulty Swallowing or other : Negative for hematuria, frequent nighttime urination/ nocturia, erectile dysfunction or abnormal vaginal bleeding Musc Musc: Negative for balance problems, muscle aches/ myalgia, muscle weakness or joint pain Skin Skin: Negative redness, non-healing lesions, rash, unusual bruising, skin ulcer, wounds, jaundice or other Neuro Neuro: Negative for weakness, headache(s), frequent falls, blurry vision, double vision, dizziness, lightheadedness, near syncope, syncope, orthostatic symptoms, confusion, memory loss, restless legs, vertigo, seizures, lack of coordination or other Igor Hematologic/Lymphatic: Negative for easy bleeding, easy bruising, enlarged lymph nodes or other Endo Endo: Negative for fatigue, excessive sweating, cold intolerance, heat intolerance, flushing, increased thirst/drinking, increased hunger, hair loss, hair growth or other Psych Psych: Negative for anxiety, depression, thoughts of harming anyone, thoughts of harming yourself, visual hallucinations, panic attacks or audible hallucinations Allergy Allergy/Immunology: Negative for lip swelling, Negative for tongue swelling, Negative for rash, Negative for throat swelling, Negative for hives Cardiology Exam Const Appearance: cooperative, healthy appearing, well developed, well groomed and no acute distress Nutritional Appearance: well nourished and average body habitus Orientation: alert, awake and oriented x3 Head Head: normal to inspection, normocephalic and atraumatic Ears: hearing grossly normal bilaterally and external ears normal Nose: external nose normal, nasal mucous membranes and turbinates normal, nares normal, septum normal, no nasal discharge Face and Sinus: face symmetric Mouth: oral mucosae normal, tongue normal, oropharynx normal and moist mucous membranes Teeth and gingiva: dentition normal Throat: posterior oropharynx normal, tonsils normal and uvula midline Eyes General: appearance normal, both eyes and all related structures Eyelids: eyelids normal Conjunctivae: conjunctivae normal Pupils: PERRL, normal by confrontation and accommodation normal EOM: EOM intact bilaterally Neck Neck: normal visual inspection, trachea midline and no JVD JVD: +5 Carotids: normal carotid upstroke and bounding pulses Chest Chest inspection: normal inspection of the chest, symmetric chest movement and normal respiratory effort Auscultation: Bilateral: Clear to Auscultation Cardio Palpation: normal PMI Rate: regular rate Rhythm: regular rhythm Heart sounds: S1 normal, S2 normal and normal, physiologic split S2; negative rub, gallop or murmur GI GI: normal to inspection, soft, no hepatosplenomegaly and bowel sounds present Neuro General: alert, awake, oriented x3, no focal sensory deficit, gait normal and moves all extremities Skin Skin: no rashes or lesions noted Extremities Pulses: Normal: Right Femoral Pulse, Left Femoral Pulse, Right Dorsalis Pedis Pulse, Left Dorsalis Pedis Pulse, Right Posterior Tibial Pulse, Left Posterior Tibial Pulse, Right Radial Pulse, Left Radial Pulse Lower Extremity Edema: None: Bilateral Musculoskel Musculoskeletal: No joint tenderness Psych Psychological: normal affect Assessment AND Plan 1. Atherosclerosis of [place] coronary artery of [place] heart without angina pectoris I25.10 PTCA with CARMEN to distal CX and OM 03/20/99; PTCA and CARMEN of distal RCA and PTCA of ostium of posterolateral branch for stent jailing; PTCA and CARMEN to RCA including PDA descending branch with multiple complex CARMEN 02/20; PTCA and CARMEN to RCA in-stent restenosis @ [facility] 04/21/2015 Plan She continues to do well at this time and the plan is to remain on the same medications without any changes. Smoking cessation has been emphasized to her. Her last stress test in September 2016 did not demonstrate any evidence of ischemia. Orders Orders: 2. Paroxysmal atrial fibrillation I48.0 Plan She appears to be maintaining sinus rhythm on the current medical therapy. She is on a factor X inhibitor as well as the amiodarone for maintenance of sinus rhythm. 3. Essential hypertension I10 Plan Her blood pressure appears to be under good control on the current medical regimen and I would not suggest any changes. Her last echocardiogram had demonstrated preserved ejection fraction with mild mitral tricuspid and aortic regurgitation. 4. PAD (peripheral artery disease) I73.9 Plan She does have mild peripheral vascular disease and smoking cessation has been emphasized. She had lower extremity duplex study performed a few weeks ago and the findings were consistent with occlusion of the right superficial femoral artery or inflow blood vessels. No critical ischemia was noted. She will continue to follow-up with Dr. Gar 5. Hyperlipidemia, unspecified hyperlipidemia type E78.5 Plan He is on high intensity statin which will be continued especially in light of her peripheral vascular disease and her coronary disease. Her most recent lipid profile demonstrated total cholesterol 121 LDL of 50 and HDL of 37. A repeat will be performed to optimize her care. Orders Orders: Plan Detail Other Medications New: Discontinued: Follow Up 6 Months (mmm) Coding Level of Care Code Off vis,est,level 4 Diagnoses Atherosclerosis of [place] coronary artery of [place] heart without angina pectoris I25.10 [place] vs. transplanted heart: [place] heart Paroxysmal atrial fibrillation I48.0 Essential hypertension I10 Hypertension type: essential hypertension PAD (peripheral artery disease) I73.9 Hyperlipidemia, unspecified hyperlipidemia type E78.5 Hyperlipidemia type: unspecified Coding Level of Care Code Off vis,est,level 4 Diagnoses Atherosclerosis of [place] coronary artery of [place] heart without angina pectoris I25.10 [place] vs. transplanted heart: [place] heart Paroxysmal atrial fibrillation I48.0 Essential hypertension I10 Hypertension type: essential hypertension PAD (peripheral artery disease) I73.9 Hyperlipidemia, unspecified hyperlipidemia type E78.5 Hyperlipidemia type: unspecified 05/20/17 1053 <Electronically signed by Jaime Treviño MD> Date Jaime Treviño MD Cosigner Signature: Date (if applicable) CC: Feng Hayes MD SURGERY VISIT REPORT Observed: 05/08/2017 Status: F Source: [place] 5:52 PM [facility] [address] [place] [address] OFFICE VISIT Date of Service: 05/08/17 MR#: [id number] Acct: [id number] Name: KATHY PURI Rep #: [id number] : 1950 Provider: Sathish Gar MD Age/Sex: 67/F Location: [facility] Status: Signed with Addenda ADDENDUM by Sathish Gar MD on 05/08/17 at 1752 Addendum entered and electronically signed by Sathish Gar MD 05/08/17 17:52: Unfortunately this chart got closed before documentation could be complete. This is a 67-year-old female. She presents for a 30 minute evve-vs-lsku consultative appointment today regarding bilateral lower extremity peripheral vascular occlusive disease. It is of note that she has had previous bilateral lower extremity superficial femoral artery stenting. Images demonstrate that on February 15, 2015 her right superficial femoral artery was stented and patent at that time. She had an occluded right posterior tibial at that time. More recently on September 23, 2016 while treating her left lower extremity it was identified that she had complete occlusion of the right superficial femoral artery within the stented area. On September 23, 2016 I performed a abdominal pelvic left lower extremity arteriogram with 8 x 40 mm conquest angioplasty of in-stent stenosis within her left superficial femoral artery. Her most recent noninvasive testing was at the [facility] on May 06, 2017. Her right lower extremity demonstrates PT and DP ABIs of 0.7 and 0.61. The digital index is 0.35. The left lower extremity demonstrates PT and DP ankle- brachial indices are 0.92 and 1 respectively. The digital index is 0.74. With exercise the left BARON goes from a resting 1 to media after exercise at 0.95 demonstrating patency of her left superficial femoral artery stenting without evidence that would suggest recurrent stenosis. Also on May 06, 2017 at [facility] she had duplex imaging of bilateral lower extremities. There is no evidence for any in-stent stenosis within the left superficial femoral artery. There are elevated velocities within the left profundofemoral artery consistent with high-grade stenosis. There is a velocity elevation within the distal left posterior tibial at 256 cm/s and there is a velocity decline within the left proximal anterior tibial artery at only 38 cm second. In the mid left anterior tibial artery flow cannot be identified. The patient has been a long-term cigarette smoker. She has stopped in the recent past. She is overweight but she states that she is attempting to lose weight. She has atrial fibrillation and at [place] a cardiovascular disease and she is on both Xarelto and Plavix. Primary care physician is Dr. Hayes and data entry technician is Dr. Jaime Treviño Although patient does do some walking watching a grandchild. She does not have a intentional daily exercise program. She does claudicate with her right lower extremity. She is interested in wanting to know what can be done with her right lower extremity. Physical exam Bilateral femoral pulses are 3+. Left popliteal is 3+. Left PT 3+. Left DP 0 Right PT is 2+. Right DP is 1+ Impression I have reviewed the patient's previous images of September 2016 demonstrating the occlusion within the right superficial femoral artery stent. That stent goes all the way down to the superior popliteal. I do not believe that it would be likely with the anticipated duration of time that she has been occluded that recanalization of such a long area of stenting would be beneficial. I discussed this with the patient. Therefore I believe that if she develops progressive symptoms then treatment option might be a femoral below-knee bypass graft. She would need to have extensive vein available to allow that to occur. As noted she is on 2 different anticoagulants which also would need to be held for such an extensive procedure. At this point I do not believe the patient has critical ischemia to her right foot. I have encouraged her to continue to diet and lose weight. I have strongly encouraged her to initiate a daily exercise program which could be as simple as walking or utilizing an exercise bicycle. At this point I am not pursuing venous duplex mapping of her great saphenous veins. I am not in favor at this moment of pursuing thoughts of right lower extremity femoral-popliteal bypass. I am strongly recommending medical maximization of her care. She has had an opportunity to ask and have questions answered. I anticipate seeing her back in the office at 6 months time though certainly could see her return sooner if there is a change in her symptoms. I appreciate the ongoing opportunity of assisting with her surgical care. Cc: Dr. Abigail Newmanori Sathish Gar M.D., F.A.C.S. Intake Allergies No Known Allergies Allergy (Verified 05/08/17 09:29) Medications Amitriptyline HCl [Elavil] 75 mg PO QHS 11/25/13 [History Confirmed 05/08/17] Citalopram [Celexa] 40 mg PO DAILY 11/25/13 [History Confirmed 05/08/17] Isosorbide Mononitrate [Imdur] 30 mg PO DAILY 11/25/13 [History Confirmed 05/08/17] Lisinopril [Zestril] 40 mg PO BID 11/25/13 [History Confirmed 05/08/17] Multivitamins,Therapeutic [Multivitamin] 1 tab PO DAILY 11/25/13 [History Confirmed 05/08/17] Pramipexole Di-HCl [Mirapex] 1 mg PO QHS 11/25/13 [History Confirmed 05/08/17] Clopidogrel Bisulfate [Plavix] 75 mg PO DAILY 05/10/15 [History Confirmed 05/08/17] Amiodarone HCl 200 mg PO DAILY 07/06/16 [History Confirmed 05/08/17] Atorvastatin Calcium [Lipitor] 40 mg PO QHS 07/06/16 [History Confirmed 05/08/17] Rivaroxaban [Xarelto] 20 mg PO DAILY 07/06/16 [History Confirmed 05/08/17] Lidocaine [Lidoderm Patch] 1 patch TOPICAL PRN PRN 09/20/16 [History Confirmed 05/08/17] Nitroglycerin [Nitrostat] 0.4 mg SUBLINGUAL Q5M PRN 09/20/16 [History Confirmed 05/08/17] Amlodipine [Norvasc] 10 mg PO DAILY 10/01/16 [History Confirmed 05/08/17] Albuterol Inhaler [Ventolin Hfa] 1 - 2 puff INHALATION Q4H PRN PRN #1 inhaler 10/02/16 [Rx Confirmed 05/08/17] Fluticasone/Salmeterol [Advair 250-50 Diskus] 1 ea IH BID #1 blst.w.dev 10/02/16 [Rx Confirmed 05/08/17] Metoprolol Tartrate [Lopressor (beta declan)] 50 mg PO BID #60 tab 10/02/16 [Rx Confirmed 05/08/17] Dicyclomine HCl 10 mg PO 4X/DAY 04/25/17 [History Confirmed 05/08/17] Doxycycline [Vibramycin] 100 mg PO BID #14 cap 04/25/17 [Rx Confirmed 05/08/17] Melatonin 3 mg PO QHS PRN 04/25/17 [History Confirmed 05/08/17] Assessment AND Plan 1. PAD (peripheral artery disease) I73.9 Plan - Sathish Gar MD Medical maximization of her care. Surgical follow-up 6 months. If her right lower extremity deteriorates then could consider a right femoral below-knee popliteal bypass. She would need to have adequate great saphenous vein to allow that to occur. I anticipate ongoing future follow-up of her currently patent stented left superficial femoral artery with no symptoms involving the left leg at this time. As noted her right SFA stent is completely occluded. Sathish Gar M.D., F.A.C.S. [id number] 05/08/17 3971 <Electronically signed by Sathish Gar MD> Date Sathish Gar MD cc: * Signed Intake Intake Visit Reasons: LEG PAIN/HX LEG STENT, F/U PVR @ [facility] 05/06/2017 Technical Sales Representatives Required: No Is patient in pain?: No Allergies No Known Allergies Allergy (Verified 05/08/17 09:29) Medications Amitriptyline HCl [Elavil] 75 mg PO QHS 11/25/13 [History Confirmed 05/08/17] Citalopram [Celexa] 40 mg PO DAILY 11/25/13 [History Confirmed 05/08/17] Isosorbide Mononitrate [Imdur] 30 mg PO DAILY 11/25/13 [History Confirmed 05/08/17] Lisinopril [Zestril] 40 mg PO BID 11/25/13 [History Confirmed 05/08/17] Multivitamins,Therapeutic [Multivitamin] 1 tab PO DAILY 11/25/13 [History Confirmed 05/08/17] Pramipexole Di-HCl [Mirapex] 1 mg PO QHS 11/25/13 [History Confirmed 05/08/17] Clopidogrel Bisulfate [Plavix] 75 mg PO DAILY 05/10/15 [History Confirmed 05/08/17] Amiodarone HCl 200 mg PO DAILY 07/06/16 [History Confirmed 05/08/17] Atorvastatin Calcium [Lipitor] 40 mg PO QHS 07/06/16 [History Confirmed 05/08/17] Rivaroxaban [Xarelto] 20 mg PO DAILY 07/06/16 [History Confirmed 05/08/17] Lidocaine [Lidoderm Patch] 1 patch TOPICAL PRN PRN 09/20/16 [History Confirmed 05/08/17] Nitroglycerin [Nitrostat] 0.4 mg SUBLINGUAL Q5M PRN 09/20/16 [History Confirmed 05/08/17] Amlodipine [Norvasc] 10 mg PO DAILY 10/01/16 [History Confirmed 05/08/17] Albuterol Inhaler [Ventolin Hfa] 1 - 2 puff INHALATION Q4H PRN PRN #1 inhaler 10/02/16 [Rx Confirmed 05/08/17] Fluticasone/Salmeterol [Advair 250-50 Diskus] 1 ea IH BID #1 blst.w.dev 10/02/16 [Rx Confirmed 05/08/17] Metoprolol Tartrate [Lopressor (beta declan)] 50 mg PO BID #60 tab 10/02/16 [Rx Confirmed 05/08/17] Dicyclomine HCl 10 mg PO 4X/DAY 04/25/17 [History Confirmed 05/08/17] Doxycycline [Vibramycin] 100 mg PO BID #14 cap 04/25/17 [Rx Confirmed 05/08/17] Melatonin 3 mg PO QHS PRN 04/25/17 [History Confirmed 05/08/17] PFSH Medical History Atherosclerotic heart disease of [place] coronary artery without angina pectoris (Chronic) Encounter for long-term (current) use of other medications (Chronic) Body mass index 32.0-32.9, adult (Chronic) Family history of hypertension (Chronic) Tobacco abuse (Chronic) Dyspnea on exertion (Chronic) Wheezing (Chronic) Obesity (Chronic) Paroxysmal atrial fibrillation (Chronic) Tobacco user (Chronic) Atrial fibrillation with RVR (Chronic) Hypokalemia (Acute) HTN (hypertension) (Chronic) IBS (irritable bowel syndrome) (Chronic) Non-STEMI (non-ST elevated myocardial infarction) (Chronic) HLD (hyperlipidemia) (Chronic) Anxiety and depression (Chronic) Angina pectoris (Acute) CAD (coronary artery disease) (Chronic) PAD (peripheral artery disease) (Chronic) Surgical History Presence of coronary angioplasty implant and graft (Resolved) History of coronary angioplasty (Resolved) S/P PTCA (percutaneous transluminal coronary angioplasty) (Resolved) Family History Father Heart disease Hypertension Seizures Sister CVA (cerebral vascular accident) Hypertension Social History Smoking Status: Current every day smoker second hand exposure: No alcohol intake: current alcohol intake frequency: 0-2 drinks per day substance use type: does not use what type of physical activity do you participate in: none HPI HPI HPI: KATHY PURI, is a 67 F who presents to the office today for 05/08/17 3704 <Electronically signed by Sathish Gar MD> Date Sathish Gar MD Cosigner Signature: Date (if applicable) CC: LOWER EXT ARTERIAL Observed: 05/06/2017 Status: F Source: [facility] 3:40 PM [facility] REPOSITORY [facility] Cardiovascular Services [address] [place] [address] 05/06/17 1535 MR#: [id number] Acct: [id number] Name: KATHY PURI Rep #: [id number] : 1950 67 From: Sathish Gar MD Attending Dr: Sathish Gar MD Status: REG CLI Ordering Dr: Date: 05/06/17 Location: [facility] Sex: F C Admitted: Arterial Study - Arterial Study Arterial Study: Bilateral lower extremity noninvasive arterial exam with exercise Right lower extremity The right calf index at rest are 0.78 with a right PT and DP ankle-brachial index at rest of 0.70.61 respectively with a digital index of only 0.35. The right PT and DP have biphasic and monophasic Doppler waveforms. With exercise the right BARON goes from resting 0.7 to media after exercise 2.3 there is recovery at 5 minutes Left lower extremity Left calf index is 0.94. The left PT and DP ankle-brachial index at rest is 0.92 and 1. The digital index is 0.74. The left posterior tibial and dorsalis pedis demonstrate triphasic waveforms at rest. Volume pulse recordings demonstrate maintained waveforms at the calf ankle and digital level. With exercise the left BARON goes from resting 1 to immediately after exercise at 0.95. Impression Findings are consistent with occlusion of the right superficial femoral artery or inflow vessels.. Findings are well within the range of vascular claudication bordering upon rest pain. The left lower extremity would suggest mild occlusive disease with abnormal ankle-brachial index at the calf. There is a very slight decline with exercise. Critical ischemia is not identified. These findings would be correlating with mild vascular claudication. Location of the disease not identified on this examination. This examination is correlated with duplex imaging of bilateral lower extremity and on that examination occlusion of the right superficial femoral artery was identified Sathish Gar M.D., F.A.C.S. 05/06/17 1540 <Electronically signed by Sathish Gar MD> Date Sathish Gar MD CC: Feng Hayes MD; Sathish Gar MD Date Dictated: 05/06/17 1535 Date Transcribed: 05/06/171534 High School Sports Coach: CHANDNI Signed ARTERIAL DUPLEX US Observed: 05/06/2017 Status: F Source: [facility] 3:29 PM [facility] REPOSITORY [facility] Cardiovascular Services [address] [place] [address] Art Duplex US Bilat Lower Ext 05/06/17 0952 MR#: [id number] Acct: [id number] Name: KATHY PURI Rep #: [id number] : 1950 67 From: Sathish Gar MD Attending Dr: Sathish Gar MD Status: REG CLI Ordering Dr: Sathish Gar MD Date: 05/06/17 Location: [facility] Sex: F C Admitted: Reason For Study: PVD Right Velocities Left Velocities Common Femoral Artery, mid = 163 cm./sec. Common Femoral Artery, mid = 193 cm./sec. Supf Femoral Artery, prox = 41.6 cm./sec. Supf. Femoral Artery, prox = 172 cm./sec. Unable to obtain flow from SFA prox/mid through SFA prox/mid= 255 cm/s. SFA distal. Supf. Femoral Artery, mid = 61.3 cm./sec. Profunda Femoral Artery = 151 cm./sec. Supf. Femoral Artery, dist = 73.1 cm./sec. Popliteal Artery, mid = 63.9 cm./sec. Profunda Femoral Artery = 372 cm./sec. Post. Tibial Artery, prox = 61.6 cm./sec. Popliteal Artery, mid = 130 cm./sec. Post. Tibial Artery, mid = 65.7 cm./sec. Post. Tibial Artery, prox = 83.8 cm./sec. Post. Tibial Artery, dist = 78.6 cm./sec. Post Tibial Artery, mid = 102 cm./sec. Peroneal Artery, prox = 35.2 cm./sec. Post Tibial Artery, dist. = 256 cm./sec. Peroneal Artery, mid = 42.8 cm./sec. Peroneal Artery, prox = 45.7 cm./sec. Peroneal Artery,dist = 36.9 cm./sec. Peroneal Artery, mid = 76.8 cm./sec. Ant. Tibial Artery, prox = 24.6 cm./sec. Peroneal Artery,dist. = 81.5 cm./sec. Ant. Tibial Artery, mid = 34.6 cm./sec. Ant.Tibial Artery, prox = 38.1 cm./sec. Ant. Tibial Artery, dist = 35.8 cm./sec. Ant. Tibial Artery, distal = 69.8 cm./sec. Unable to obtain flow in Mid KELLY. Interpretation Summary Occluded right superficial femoral artery. 3 vessel right infra-geniculate run off Severe stenosis left profunda femoral artery Patent left superfcial femoral artery Greater than 50% stenosis left posterior tibial artery Possibly occluded left mid anterior tibial artery Ordering Physician: Sathish Gar Performed By: Russell Irene RVT 05/06/17 1528 Date Sathish Gar MD CC: Feng Hayes MD; Sathish Gar MD Date Dictated: 05/06/17 0952 Date Transcribed: 05/06/178 High School Sports Coach: Signed PROGRESS Observed: 04/28/2017 Status: COMPLETED Source: [place] 11:[address] [facility] REPOSITORY HNO ID: [id number] Author: Corinne (Vanessa) Sugey Service: (none) Author Type: Nurse Practitioner Type: Progress Notes Filed: 04/28/2017 12:49 PM Note Text: 04/28/2017 Patient presents with: Cough: [facility] 04/26/17 SUBJECTIVE: This is a 67 year old that is here today for PNA. She was seen and diagnosed with PNA in right infrahilar at [facility] 04/25/17. She was prescribed Doxycycline BID for 7 days. Influenza negative. She returned to [facility] 04/26 stating that she was not better and daughter requesting admission. Admission criteria was not met and she was discharged home. She states that she thought she she follow up with PCP. She states that she is no better, but when asking specific symptoms that she had per the [facility] documentation, she denies SCHMID now stating that she did have one initially and the myalgias have improved. She states that the highest temp she has was Friday 102.1 and yesterday as high as about 100 up and down throughout the day. She states that she is treating fever with tylenol. She stopped smoking last . SOB with exertion. Productive cough- yellow/green. Nasal congestion and occasional rhinorrhea after blowing nose. She is on day 3 of doxycycline. She is drinking 6-9 16 oz water bottles a day, not eating much. She is tired and napping often. She denies CP, SCHMID, change in vision, dizziness, lightheadedness, edema, rash, sore throat, ear pain, facial tenderness, nausea, vomiting. PAST MEDICAL HISTORY Diagnosis Date - Atrial fibrillation (HCC) 07/16/2011 - CAD (coronary artery disease) seeing Dr. Treviño - Chronic lower back pain - DDD (degenerative disc disease), lumbar - Depression - GERD (gastroesophageal reflux disease) - H/O heart artery stent 7 Stents, last 2006 - Hypertension - IBS (irritable bowel syndrome) - Myocardial infarction x2 - Obesity - Ovarian cancer ([facility]) 09/13/[address] Blank - PAD (peripheral artery disease) ([facility]) Dr. Sathish Gar - Restless leg syndrome 07/16/2011 - Sleep apnea on Bipap - Tobacco use - Vulvovaginitis 07/16/2011 ALLERGIES Review of patient's allergies indicates no known allergies. MEDICATIONS Current Outpatient Prescriptions: doxycycline hyclate (VIBRAMYCIN) 100 mg capsule pramipexole (MIRAPEX) 1 mg tablet Take 1 tablet by mouth daily at bedtime. hydrOXYzine (ATARAX) 10 mg/[address] 1-2 drops on tongue, wait 1/2 hour, if not drowsy may repeat citalopram (CELEXA) 40 mg tablet Take 1 tablet by mouth once daily. amitriptyline (ELAVIL) 25 mg tablet Take 3 tablets by mouth daily at bedtime. amLODIPine (NORVASC) 10 mg tablet Take 10 mg by mouth once daily. ranitidine (ZANTAC) 150 mg tablet Take 150 mg by mouth twice daily. Multivitamin capsule Take 1 capsule by mouth once daily. VITAMIN E, BULK, MISC CALCIUM CARBONATE (CALCIUM 300 ORAL) Take by mouth. triamcinolone acetonide (KENALOG) 0.1 % cream Apply 1 application to affected area twice daily. Apply sparingly to area for rash/itching. atorvastatin (LIPITOR) 40 mg tablet Take 1 tablet by mouth once daily. dicyclomine (BENTYL) 10 mg capsule Take 1 capsule by mouth before meals and at bedtime. lisinopril (ZESTRIL, PRINIVIL) 40 mg tablet Take 1 tablet by mouth once daily. acetaminophen (TYLENOL EXTRA STRENGTH) 500 mg tablet Take 500 mg by mouth every 6 hours as needed. diphenoxylate-atropine sulfate (LOMOTIL) 2.5-0.025 mg/5 mL liquid Take 5 mL by mouth four times daily as needed. rivaroxaban (XARELTO) 20 mg tablet Take 20 mg by mouth daily with dinner. amiodarone (PACERONE) 200 mg tablet Take 200 mg by mouth once daily. MELATONIN ORAL Take by mouth once daily. clopidogrel (PLAVIX) 75 mg tablet lidocaine (LIDODERM) 5 %(700 mg/patch) Apply 1 Patch as directed every 12 hours. nitroglycerin sublingual (NITROSTAT) 0.4 mg SL tablet Dissolve 1 tablet under the tongue as needed. FOR CHEST PAIN. IF NO RELIEF CALL 911 isosorbide mononitrate ER (IMDUR) 60 mg 24 hr tablet Take 1 tablet by mouth once daily. metoprolol tartrate, short acting, (LOPRESSOR) 100 mg tablet Take 100 mg by mouth twice daily. No current facility-administered medications for this visit. Medications and allergies reviewed by this provider. SOCIAL HISTORY Social History Marital status: Spouse name: Years of education: Number of children: 3 Occupational History Occupation Employer Comment Retired Social History Main Topics Smoking status: Former Smoker Packs/day: 0.00 Years: 47.00 Types: Cigarettes Quit date: 04/24/2017 Smokeless status: Never Used Comment: <5 per day Alcohol use: No Drug use: No Sexual activity: No Comment: Postmenopausal REVIEW OF SYSTEMS see HPI OBJECTIVE: BP 112/68 Pulse 69 Temp 37.2 ?C (99 ?F) (Temporal Artery) Resp 12 Wt 76.7 kg (169 lb) SpO2 96% BMI 32.46 kg/m2. Vital signs reviewed by this provider. PHYSICAL EXAMINATION: General appearance: Well appearing, alert, in no acute distress, well-hydrated, well nourished., Overweight Skin: Skin color, texture, turgor normal, no suspicious rashes or lesions Head: Normocephalic, no masses, lesions, tenderness or abnormalities Eyes: Anicteric sclera. Pupils are equally round and reactive to light. Extraocular movements are intact. Ears: External ears normal, canals clear, TMs normal Nose/Sinuses: Nares normal, septum midline, mucosa normal, no drainage or sinus tenderness Oropharynx: Positive findings: mild oropharyngeal erythema Neck: Positive findings: pulsating on the right side near the clavicle while sitting up at 90 degrees and when laying back at 45 degrees moves up the neck Lungs: Lungs clear to auscultation. No wheezing, rhonchi, rales Heart: RRR without murmur, gallop, or rubs. No ectopy Extremities: No deformities, edema, skin discoloration, clubbing or cyanosis. Good capillary refill. , Pulses: 2+ Neuro: Negative findings: speech normal, mental status intact, normal gait ASSESSMENT/PLAN: 1. Bacterial pneumonia - ICD9: 482.9, ICD10: J15.9 (primary diagnosis) - continue treatment as prescribed - Appears improved based on documentation from [facility] - discussed importance of adding protein in diet even if decreased appetite to assist with healing and provide energy - Encouraged coughing and deep breathing - Consider humidifier at night - follow up with worsening symptoms or no improvement after antibiotic course 2. JVD (jugular venous distension) - ICD9: 785.9, ICD10: R09.89 - Patient believes that this is a new finding - She has a cardiac history and is followed by Dr. Treviño. Will obtain Echo and may need to follow up with him based on results. Prior study 09/21/15 showed EF 55% mildly enlarged left atrium, mild to mod mitral annular calcification, 1+ mitral valve insufficiency, 1+ aortic valve insufficiency. - Discussed need for ER with any CP, increased SOB, dizziness, lightheadedness, change in mental status, or with any new concerning symptoms. - ECHO Corinne Grace CNP EMERGENCY DEPARTMENT Observed: 04/26/2017 Status: F Source: [place] SUMMARY 12:05 PM [facility] REPOSITORY [facility] Medical Records Department [address] [place] [address] Emergency Department Summary 04/26/17 1200 MR#: [id number] Acct: [id number] Name: KATHY PURI Rep #: [id number] : 1950 67 From: Werner Bland MD PCP: Feng Hayes MD Status: REG ER - ER Visit Summary Date of Service: 04/26/17 Chief Complaint: Seen yesterday for pneumonia and no better History of Present Illness: The patient is a 67 F seen by me yesterday and diagnosed with pneumonia. She was placed on antibiotics. She is taken a total of 3 doses. She was given first dose in the emergency department. She took a dose last evening and 1 dose today. She states she does not feel better. She denies headache, visual, ocular or auditory symptoms. Her cough is productive. There is no chest pain. There is no leg pain, swelling discoloration. She has no GI or symptoms. Daughter stated I want her admitted . Physical Examination: Vital signs are unremarkable. She is not hypoxic. She is not tachycardic or tachypneic. She is febrile with temperature 101 which is an improvement from yesterday. She does not appear ill or toxic. HEENT exam is remarkable for nasal congestion. Lungs reveal diminished breath sounds posteriorly on the right in the area of the infiltrate noted on x-ray obtained yesterday. There is egophony. Heart is regular without murmur, gallop or rub. Abdomen is soft nontender. Lower extremity exam reveals no swelling, discoloration, asymmetry, leg vein distention, palpable cords times on the disposition deep venous system. She is alert oriented 3. Test Results: She was ambulated. Prior to ambulation pulse ox 93% on room air. During ambulation her pulse ox went up to 95%. Emergency Department Course and Treatment: Since she is not tachycardic, tachypnic or hypoxic and is not worse than yesterday and if anything better than yesterday based on my exam patient will be discharged home. Both the patient and the daughter were informed she does not meet criteria for admission. Daughter seemed miffed. Treatment Plan: To new antibiotics. Stop smoking. Disposition: Discharge to home to follow-up with her primary care physician Impression: Community acquired pneumonia, reevaluation This note was generated with Noom dictation software. It may contain incorrect words, spelling, and punctuation that were not noted in review of the chart prior to signing ED Disposition - Plan for ED Patient: Disposition: Home or Assisted Living Chief Complaint: Shortness of Breath Instructions: ED Pneumonia Adult Referrals: Feng Hayes MD [Primary Care Provider] - 1-2 Days if not improving Additional Instructions: It is in your best interest to stop smoking. What to do if you have Problems For any increased pain, shortness of breath, bleeding, nausea or vomiting, chest pain, or any unexpected problems, contact your Primary Care Provider. Call [facility] ([phone]) or report to the closest Emergency Room. Call 911 if necessary. 04/26/17 1205 <Electronically signed by Werner Bland MD> Date Werner Bland MD Cosigner Signature (If Indicated): Date CC: Feng Hayes MD EMERGENCY DEPARTMENT Observed: 04/25/2017 Status: F Source: [place] SUMMARY 10:34 AM [facility] REPOSITORY [facility] Medical Records Department [address] [place] [address] Emergency Department Summary 04/25/17 0914 MR#: [id number] Acct: [id number] Name: KATHY PURI Rep #: [id number] : 1950 67 From: Werner Bland MD PCP: Feng Hayes MD Status: REG ER - ER Visit Summary Date of Service: 04/25/17 Chief Complaint: Headache, fever with chills, productive cough and myalgias arthralgias that started last evening History of Present Illness: The patient is a 67 F multiple medical problems who presents with flulike symptoms that started last evening. She complains of headache without photophobia or neck stiffness. She denies rash. She does complain of rhinorrhea, nasal congestion postnasal drainage as well as sore throat. She denies ear discomfort. She does have a cough which is productive. She states she has not looked at her sputum. She denies any chest pain. She does complain of myalgias and arthralgias. She states she did get a flu shot this year. She continues to smoke. She has no GI or symptoms. Please read written note for complete review of systems, which was otherwise negative. Physical Examination: No signs are marked for an elevated temperature and blood pressure. She appears ill. She does not appear toxic. HEENT exam is remarkable for rhinorrhea and postnasal drainage. There is no erythema or exudate. Neck is supple. TMs are normal. She has no photophobia. Lungs are clear to auscultation with good mirror bilateral. Heart is regular without murmur, gallop or rub. There is no asymmetry, swelling, discoloration, leg vein distention, palpable cords or tenderness along the distribution of the deep venous system. There are no skin lesions or rash noted. Exam is nonfocal. Test Results: Chest x-ray was reviewed by me and reveals an infiltrate on the lateral only. The radiologist interpretation was read and he is in agreement. Emergency Department Course and Treatment: Since patient has history of COPD and reports productive cough chest x-ray was obtained and rapid influenza test. Treatment Plan: She is not febrile, tachypnic, tachycardic or hypoxic she was treated as an outpatient. She received her first dose of antibiotic in the department. She was instructed to follow-up with Dr. Calero or Dr. Marx if not better within 48-72 hours. Disposition: Discharged to home Impression: Community-acquired pneumonia This note was generated with Noom dictation software. It may contain incorrect words, spelling, and punctuation that were not noted in review of the chart prior to signing ED Disposition - Plan for ED Patient: Disposition: Home or Assisted Living Chief Complaint: Fever Instructions: ED Pneumonia Adult Prescriptions: Doxycycline [Vibramycin] 100 mg PO BID #14 cap Referrals: Feng Hayes MD [Primary Care Provider] - 3-5 Days if not improving Additional Instructions: Your prescription was electronically transmitted to [facility] your designated pharmacy of choice What to do if you have Problems For any increased pain, shortness of breath, bleeding, nausea or vomiting, chest pain, or any unexpected problems, contact your Primary Care Provider. Call [facility] ([phone]) or report to the closest Emergency Room. Call 911 if necessary. 04/25/17 1034 <Electronically signed by Werner Bland MD> Date Werner Bland MD Cosigner Signature (If Indicated): Date CC: Feng Hayes MD; Zack Marx MD Observed: 04/25/2017 Status: F Source: [facility] INFLUENZA A+B (RAPID 9:[facility] REPOSITORY Order Date: 04/25/17 FLU A/B Rapid Negative test results should be confirmed by culture. Order Rapid Viral Culture for Influenzae A+B ([id number]) if clinically indicated. Influenza Ag, Direct Presumptive NEGATIVE for Influenza A/B Antigen (See Note) Performed By: #### M101.0101 #### [facility] [address] [place], [address] CHEST PA AND LATERAL Observed: 04/25/2017 Status: F Source: [place] 9:09 AM [facility] REPOSITORY [facility] Imaging Services [address] [place] [address] Chest PA and Lateral MR#: [id number] Acct: [id number] Name: KATHY PURI Rep #: [id number] : 1950 F 67 From: Brown Yanes MD PCP: Feng Hayes MD Status: REG ER Study: Chest PA and Lateral Date of Exam: 04/25/17 Exam# [id number] Ordering Dr: Werner Bland MD STUDY: X-RAY CHEST REASON FOR EXAM: Female, 67 years old. Fever and productive cough. TECHNIQUE: PA and lateral views of the chest. COMPARISON: Comparison is made with prior study dated April 19, 2015. FINDINGS: Right infrahilar infiltrate. There is no demonstrated pleural abnormality. Normal size heart. Normal mediastinum and artis. Normal visualized pulmonary arteries. There is atherosclerotic calcification of the aortic arch with tortuosity. There are degenerative changes of the visualized thoracic spine. Normal visualized ribs, clavicles, and shoulders. There is no demonstrated abnormality of the visualized soft tissue structures of the upper abdomen. RAD/Chest PA and Lateral IMPRESSION: Right infrahilar infiltrate. Electronically Signed: Brown Yanes MD at 9:59 EST Tel [phone], Service support , CC: Feng Hayes MD; Werner Bland MD [employer]: Signed ALLERGIES ALLERGIES DATE TYPE / CODE NAME / CODE REACTION SEVERITY SOURCE 02/18/2018 Drug No Known Unknown [facility] Allergy/416 Allergies/X05378 Hospital 710224(SNOM 0388(RXNORM) Repository ED CT) Drug NO KNOWN [facility] Class/49341 ALLERGIES Main [place] 1003(SNOMED Repository CT) ENCOUNTERS ENCOUNTERS ADMIT/DISCHARGE ACCOUNT ADMITTING ENCOUNTER LOCATION SOURCE NUMBER CLASS 04/10/2018/04/10/19 [id number] Ambulatory [address] Repository 04/04/2018/04/04/19 [id number] Emergency [address] ing:ED Repository 04/01/2018/04/02/19 [id number] Ambulatory [address] Repository 03/05/2018/03/06/20 [id number] Ambulatory [address] Repository 02/18/2018/02/19/20 [id number] Emergency [address] ing:ED Repository 02/07/2018/02/10/20 [id number] Ambulatory [address] Repository 12/31/2017/01/02/20 [id number] Ambulatory [address] Repository 12/23/2017/12/24/19 [id number] Ambulatory [address] Repository 12/08/2017/12/10/19 [id number] Ambulatory [address] Repository 11/27/2017 [id number] Ambulatory BMSBuilding:B [place] [facility] Repository 11/25/2017/11/26/19 [id number] Ambulatory BMSBuilding:B [place] 18 MS.WHG [facility] Repository 11/21/2017/11/25/19 [id number] Ambulatory [address] Repository 11/21/2017/11/25/19 [id number] Ambulatory [address] Repository 11/10/2017/11/11/19 [id number] Ambulatory [address] Repository 11/10/2017/11/12/19 [id number] Ambulatory [address] Repository 11/06/2017/11/11/19 [id number] Ambulatory [address] Repository 10/15/2017/10/17/19 [id number] Ambulatory [address] Repository 09/05/2017/09/06/19 [id number] Ambulatory [address] Repository 09/05/2017/09/09/19 [id number] Ambulatory [address] Repository 08/27/2017 [id number] [facility] Rep[facility] 08/12/2017 [id number] Ambulatory [facility] ing:LAB Repository 08/12/2017/08/13/19 [id number] Ambulatory BMSBuilding:B [place] [facility] Repository 08/01/2017/08/06/19 [id number] Ambulatory [address] Repository 07/28/2017/07/29/19 [id number] Emergency [address] HospitalBuild Hospital ing:ED Repository 05/28/2017 [id number] [facility] Repository 05/22/2017/05/27/19 [id number] Ambulatory [address] Repository 05/20/2017/05/21/19 [id number] Ambulatory BMSBuilding:B [place] 18 [facility] Repository 05/19/2017 [id number] Ambulatory BMSBuilding:B [place] [facility] Repository 05/08/2017/05/08/19 [id number] Ambulatory BMSBuilding:B [place] [facility] Repository 05/06/2017 [id number] Ambulatory [facility] Hospital ing:CVS Repository 05/06/2017 [id number] Ambulatory BMSBuilding:B [place] MS.CF.[facility] Repository 05/06/2017 [id number] Ambulatory BMSBuilding:B [place] MS.[facility] Repository 04/30/2017/05/06/19 [id number] Ambulatory [address] Repository 04/28/2017/04/28/19 [id number] Ambulatory [address] Repository 04/26/2017/04/26/19 [id number] Emergency [place] ing:ED Repository 04/25/2017/04/25/19 [id number] Emergency [place] [facility] ing:ED Repository 04/22/2017 [id number] Ambulatory BMSBuilding:B [place] MS.[facility] Repository PAYERS PAYERS ENCOUNTER GUARANTOR PAYER SUBSCRIBER SOURCE 04/04/2018 KATHY Xie Primary Insurance:[facility] KATHY E [place] [id number] N MCRDUAL COMP HMO* NOT WHITEDOB: [facility] Number: [id number], [place] [id number] Repository 60[address]Mct: (330) Date:7030-56-75PI [phone] (HP) [address] [place] [phone]: 04/04/2018 Secondary NOT GIVENUNK [place] Insurance:SELF PAY [facility] Number: Effective Repository Date:2018-04-04 02/18/2018 KATHY Xie Primary Insurance:[facility] KATHY E [place] [id number] N MCRDUAL COMP HMO* NOT WHITEDOB: [facility] JS [facility] Number: [id number], [place] [id number] Repository [address]Lhy: (330) Date:9787-83-93ZP [phone] (HP) [address] [place] [phone]: 02/18/2018 Secondary NOT GIVENUNK [place] Insurance:SELF PAY [facility] Number: Effective Repository Date:2018-02-18 11/27/2017 KATHY Xie Primary Insurance:O KATHY E [place] [id number] N [facility]ARE[facility] WHITEDOB: [facility] BRITANY Number: [id number], [place] [id number] Repository [address]Xsi: (330) Date:5956-71-11NO [phone] (HP) [address] [place] [phone]: 11/27/2017 Secondary KATHY E [place] Insurance:MEDICAIDPol WHITEDOB: Community [facility] Number: [id number] Hospital [id number] Repository Date:2017-09-16 11/27/2017 Tertiary NOT GIVENUNK [place] Insurance:SELF PAY [facility] Number: Effective Repository Date:2017-11-20 11/25/2017 KATHY E Primary Insurance:UHC KATHY E [place] [id number] N COMMUNITY PLANPolicy [facility]OB[facility] Number: [id number], [place] [id number] Repository [address]Bhj: (330) Date:7325-27-33ZE [phone] () [address] [place] [address]FU: 11/25/2017 Secondary NOT GIVENUNK [place] Insurance:SELF PAY [facility] Number: Effective Repository Date:2017-11-25 08/27/2017 KATHY E Primary Insurance:C KATHY E [place] [id number] N MCRDUAL COMP HMO* NOT WHITEDOB: [facility] BRITANYE CONT[facility] Number: [id number], [place] [id number] Repository [address]Cqe: (330) Date:6046-01-82RL [phone] () [place], [place] [address]LW: 08/27/2017 Secondary NOT GIVENUNK [place] Insurance:SELF PAY [facility] Number: Effective Repository Date:2017-08-12 08/12/2017 KATHY E Primary Insurance:O KATHY E [place] [id number] N MEDICAREPolicy WHITEDOB: Counts include 234 beds at the [facility] Number: [id number] [facility] [id number] Repository [place] [address]Dxz: Date:2685-96-55DU [address] [place] [address] () [phone]: 08/12/2017 Secondary KATHY E [place] Insurance:MEDICAIDPol WHITEDOB: Community icy Number: [id number] Hospital [id number] Repository Date:2017-08-12 08/12/2017 Tertiary NOT GIVENUNK [place] Insurance:SELF PAY [facility] Number: Effective Repository Date:2017-08-12 08/12/2017 KATHY E Primary Insurance:MMO KATHY E [place] [id number] N MEDICAREPolicy WHITEDOB: Counts include 234 beds at the [facility] Number: [id number] Health Network [id number] Repository [place] [address]Kdu: Date:0982-92-37JY [address] [place] [address] () [phone]: 08/12/2017 Secondary KATHY E [place] Insurance:MEDICAIDPol WHITEDOB: [facility] ic Number: [id number] Hospital [id number] Repository Date:2017-08-04 08/12/2017 Tertiary NOT GIVENUNK [place] Insurance:SELF PAY [facility] Number: Effective Repository Date:2017-08-12 07/28/2017 KATHY E Primary Insurance:MMO KATHY E [place] [id number] N MEDICAREPolicy WHITEDOB: Counts include 234 beds at the [facility] Number: [id number], [place] [id number] Repository [address]Rkl: (330) Date:6056-41-74GN [phone] () [address] [place] [phone]: 07/28/2017 Secondary KATHY E [place] Insurance:MEDICAIDPol WHITEDOB: [facility] ic Number: [id number] Hospital [id number] Repository Date:2017-07-28 07/28/2017 Tertiary NOT GIVENUNK [place] Insurance:SELF PAY [facility] Number: Effective Repository Date:2017-07-28 05/28/2017 KATHY E Primary Insurance:MMO KATHY E [place] [id number] N MEDICAREPolicy WHITEDOB: Counts include 234 beds at the [facility] Number: [id number], [place] [id number] Repository [address]Yxb: (330) Date:9269-27-88TY [phone] () [address] [place] [phone]: 05/28/2017 Secondary KATHY E [place] Insurance:MEDICAIDPol WHITEDOB: Community icy Number: [id number] Hospital [id number] Repository Date:2017-05-28 05/28/2017 Tertiary NOT GIVENUNK [place] Insurance:SELF PAY [facility]: Effective Repository Date:2017-05-28 05/20/2017 KATHY E Primary Insurance:MMO KATHY E [place] [id number] N MEDICAREPolicy WHITEDOB: [facility] Number: [id number], [place] [id number] Repository [address]Rax: (330) Date:7980-95-15BG [phone] () [address] [place] [phone]: 05/20/2017 Secondary KATHY E [place] Insurance:MEDICAIDPol WHITEDOB: Community icy Number: [id number] Hospital [id number] Repository Date:2017-02-23 05/20/2017 Tertiary NOT GIVENUNK [place] Insurance:SELF PAY [facility] Number: Effective Repository Date:2017-02-23 05/19/2017 KATHY E Primary Insurance:MMO KATHY E [place] [id number] N MEDICAREPolicy WHITEDOB: [facility] Number: [id number], [place] [id number] Repository [address]Qpq: (330) Date:9468-16-75YG [phone] () [address] [place] [phone]: 05/19/2017 Secondary KATHY E [place] Insurance:MEDICAIDPol WHITEDOB: Community icy Number: [id number] Hospital [id number] Repository Date:2017-05-19 05/19/2017 Tertiary NOT GIVENUNK [place] Insurance:SELF PAY [facility] Number: Effective Repository Date:2017-05-19 05/08/2017 KATHY E Primary Insurance:MMO KATHY E [place] [id number] N MEDICAREPolicy [facility]OB: [facility] Number: [id number], [place] [id number] Repository [address]Khc: (330) Date:5295-98-41SO [phone] () [address] [place], [place] [phone]: 05/08/2017 Secondary KATHY E [place] Insurance:MEDICAIDPol WHITEDOB: [facility] ic Number: [id number] Hospital [id number] Repository Date:2017-04-18 05/08/2017 Tertiary NOT GIVENUNK [place] Insurance:SELF PAY [facility] Number: Effective Repository Date:2017-04-18 05/06/2017 KATHY E Primary Insurance:MMO KATHY E [place] [id number] N MEDICAREPolicy WHITEDOB: Counts include 234 beds at the [facility] Number: [id number], [place] [id number] Repository [address]Joy: (330) Date:8273-09-95DB [phone] () [address] [place], [place] [phone]: 05/06/2017 Secondary KATHY E [place] Insurance:MEDICAIDPol WHITEDOB: [facility] Number: [id number] Hospital [id number] Repository Date:2017-04-09 05/06/2017 Tertiary NOT GIVENUNK [place] Insurance:SELF PAY [facility] Number: Effective Repository Date:2017-04-09 05/06/2017 KATHY E Primary Insurance:MMO KATHY E [place] [id number] N MEDICAREPolicy WHITEDOB: Counts include 234 beds at the [facility] Number: [id number], [place] [id number] Repository 48[address]Wyv: (330) Date:0121-59-79AS [phone] () [address] [place] [id number]: 05/06/2017 Secondary KATHY E [place] Insurance:MEDICAIDPol WHITEDOB: [facility] icy Number: [id number] [id number] Repository Date:2017-04-09 05/06/2017 Tertiary NOT GIVENUNK [place] Insurance:SELF PAY [facility]: Effective Repository Date:2017-05-06 05/06/2017 KATHY E Primary Insurance:MMO KATHY E [place] [id number] N MEDICAREPolicy [facility]: [id number], [place] [id number] Repository [address]Fzw: (330) Date:7298-56-04WL [phone] () [address] [place], [place] [phone]: 05/06/2017 Secondary KATHY E [place] Insurance:MEDICAIDPol WHITEDOB: [facility] icy Number: [id number] [id number] Repository Date:2017-04-09 05/06/2017 Tertiary NOT GIVENUNK [place] Insurance:SELF PAY [facility]: Effective Repository Date:2017-05-06 04/26/2017 KATHY E Primary Insurance:MMO KATHY E [place] [id number] N MEDICAREPolicy WHITEDOB: Counts include 234 beds at the [facility] Number: [id number], [place] [id number] Repository [address]Van: (330) Date:2380-93-03PY [phone] () [address] [place] [id number]: 04/26/2017 Secondary KATHY E [place] Insurance:MEDICAIDPol WHITEDOB: [facility] ic Number: [id number] [id number] Repository Date:2017-04-26 04/26/2017 Tertiary NOT GIVENUNK [place] Insurance:SELF PAY [facility] Number: Effective Repository Date:2017-04-26 04/25/2017 KATHY E Primary Insurance:MMO KATHY E [place] [id number] N MEDICAREPolicy WHITEDOB: Counts include 234 beds at the [facility] Number: [id number], [place] [id number] Repository [address]Bmz: ([facility]) Date:9104-91-45XX [phone] () [address] [place] [id number]: 04/25/2017 Secondary KATHY E [place] Insurance:MEDICAIDPol WHITEDOB: Community icy Number: [id number] Hospital [id number] Repository Date:2017-04-25 04/25/2017 Tertiary NOT GIVENUNK [place] Insurance:SELF PAY [facility] Number: Effective Repository Date:2017-04-25 04/22/2017 KATHY E Primary Insurance:MMO KATHY E [place] [id number] N MEDICAREPolicy WHITEDOB: Community [place]UCKEYE Number: [id number], [place] [id number] Repository [address]Eip: / (HP) Date:8108-04-13[address], [place] [phone]: 04/22/2017 Secondary KATHY E [place] Insurance:MEDICAIDPol WHITEDOB: Community icy Number: [id number] [facility] [id number] Repository Date:2017-04-16 04/22/2017 Tertiary NOT GIVENUNK [place] Insurance:SELF PAY [facility] Number: Effective Repository Date:2017-04-16
== END 2018-04-04 01:28 | disposition home or self-care (01) ==
LOC: ED 01:22
PROVIDERS: Emergency Provider Emergency Medicine; Family Provider Family Medicine; PCP Family Medicine
DX: S81.811A Laceration without foreign body, right lower leg, initial encounter (principal); W01.198A Fall on same level from slipping, tripping and stumbling with subsequent striking against other object, initial encounter; Y93.01 Activity, walking, marching and hiking; Y92.9 Unspecified place or not applicable; I10 Essential (primary) hypertension; E78.00 Pure hypercholesterolemia, unspecified; Z79.01 Long term (current) use of anticoagulants; Z79.899 Other long term (current) drug therapy; Z72.0 Tobacco use
CPT/HCPCS: 99282; A4216

== ENCOUNTER 2018-07-07 06:27 | Day surgery (SDC) | payer MEDICARE, MEDICAID, SELFPAY ==
[2018-06-15 15:45] VITALS: BMI 32.4
[2018-07-07] VITALS (7 sets, daily range): BP systolic 95–136; BP diastolic 45–86; PULSE 42–48; RESP 16; TEMP 36.1–37; O2SAT 92–100; BMI 30.7
--- NOTE | 2018-07-07 08:08 | OP.ENDO_ITS ---
07/07/2018 Feng Hayes Re : Colonoscopy procedure for Kathy Hayes This procedure was performed on Saturday, July 07, 2018. My impressions and recommendations are as follows: Impressions : - Preparation of the colon was fair. - Hemorrhoids found on perianal exam. - Diverticulosis in the sigmoid colon and in the descending colon. - The examination was otherwise normal. - No specimens collected. Recommendations : - Discharge patient to home. - Resume previous diet. - Continue present medications. - Repeat colonoscopy in 5 years for surveillance. My findings are described in the full procedure note, which is enclosed. If I can be of further assistance, please feel free to contact me at Doctor phone number(s): Work: . Sincerely, Sathish Gar MD 07/07/2018 8:08:06 AM This report has been signed electronically.
== END 2018-07-07 08:52 | disposition home or self-care (01) ==
LOC: EN 06:29 → AC 06:29
PROVIDERS: Family Provider Family Medicine; PCP Family Medicine; Referring Provider Family Medicine; Visit Provider Surgery
PROC: 0DJD8ZZ Inspection of Lower Intestinal Tract, Via Natural or Artificial Opening Endoscopic (ICD-10-PCS; CPT 45378; principal; 2018-07-07 07:25)
DX: Z86.010 Personal history of colon polyps (principal); K57.30 Diverticulosis of large intestine without perforation or abscess without bleeding; K64.9 Unspecified hemorrhoids; I25.10 Atherosclerotic heart disease of native coronary artery without angina pectoris; I73.9 Peripheral vascular disease, unspecified; E66.9 Obesity, unspecified; Z68.32 Body mass index [BMI] 32.0-32.9, adult; I48.0 Paroxysmal atrial fibrillation; I11.0 Hypertensive heart disease with heart failure; I50.9 Heart failure, unspecified; K58.9 Irritable bowel syndrome, unspecified; I25.2 Old myocardial infarction; F41.9 Anxiety disorder, unspecified; F32.9 Major depressive disorder, single episode, unspecified; M19.90 Unspecified osteoarthritis, unspecified site; R01.1 Cardiac murmur, unspecified; J44.9 Chronic obstructive pulmonary disease, unspecified; G47.30 Sleep apnea, unspecified; G25.81 Restless legs syndrome; K21.9 Gastro-esophageal reflux disease without esophagitis; E78.00 Pure hypercholesterolemia, unspecified; Z85.43 Personal history of malignant neoplasm of ovary; Z86.2 Personal history of diseases of the blood and blood-forming organs and certain disorders involving the immune mechanism; Z78.0 Asymptomatic menopausal state; Z95.5 Presence of coronary angioplasty implant and graft; Z79.01 Long term (current) use of anticoagulants; Z79.899 Other long term (current) drug therapy; F17.200 Nicotine dependence, unspecified, uncomplicated
CPT/HCPCS: 45378; J7120

== ENCOUNTER 2018-08-02 12:23 | Emergency (ER) | payer MEDICARE, MEDICAID, SELFPAY ==
[2018-07-07 06:50] VITALS: BMI 30.7
[2018-08-02 12:24] VITALS: BP 190/83; PULSE 54; RESP 16; TEMP 36.3; O2SAT 96; BMI 28.9
--- NOTE | 2018-08-02 12:38 | ED.VIS.LOWEX ---
History of Present Illness Chief Complaint: Lower Extremity Injury Informant: Patient Occurred: Today Onset: Today Context: Sudden Onset - tripped and fell down 2 steps, bent her toe back in process Quality of Pain: Throbbing Location: left great toe Current Severity: Moderate Maximum Severity: Severe Associated Symptoms: Negative for: Parasthesia, Weakness, Loss of Funtion Narrative: bumped her left knee, but otherwise no other injuries. able to walk ok. on Plavix and Xarelto; hx of 7 coronary stents and afib. - Past Medical History (1) Anxiety and depression Status: Chronic (2) Atherosclerotic peripheral vascular disease Status: Chronic (3) CAD (coronary artery disease) Status: Chronic (4) Emphysema of lung Status: Chronic (5) HLD (hyperlipidemia) Status: Chronic (6) HTN (hypertension) Status: Chronic (7) IBS (irritable bowel syndrome) Status: Chronic (8) BELLE (obstructive sleep apnea) Status: Chronic Comment: Supposed to be on BiPAP (9) Paroxysmal atrial fibrillation Status: Chronic Past Medical History - Allergies and Home Meds Allergies/Adverse Reactions: Allergies No Known Allergies Allergy (Verified 08/02/18 12:23) Primary Care Physician: Feng Hayes MD [Primary Care Provider] - Surgical History: - - LE intervention for PAD per Dr. Gar, cardiac catheterizations w/ total PCI x 7, Lower back injections, DIOMEDES, T+A, R foot surgery. Smoking Status: Former smoker - Family History Maternal Family History: Family History (Last Reviewed 06/15/18 @ 15:45 by Sarah Regalado) Father Heart disease Hypertension Seizures Sister CVA (cerebral vascular accident) Hypertension Other Family history of hypertension Family History: Reports: Diabetes, High Cholesterol, Heart Disease, Hypertension, Stroke Paternal Family History: Family History (Last Reviewed 06/15/18 @ 15:45 by Sarah Regalado) Father Heart disease Hypertension Seizures Sister CVA (cerebral vascular accident) Hypertension Other Family history of hypertension Family History: Reports: Diabetes, High Cholesterol, Heart Disease, Hypertension, Stroke Review of Systems Musculoskeletal: Reports: Swelling, Extremity Pain Skin: Reports: - - bruising left toe. Denies: Wounds Hematologic: Reports: Easy bruising, Easy bleeding Physical Exam Vital Signs/Narrative: Vital Signs Temp Pulse Resp BP Pulse Ox 08/02/18 12:24 97.4 F L 54 L 16 190/83 H 96 Inital Vital Signs reviewed: Yes - Extremity Exam Left Toe: Contusion, Limited ROM, - - left great toe. tender throughout. nail less tender, painted.. Negative for: Deformity General: Well nourished, Well developed Head: Normocephalic, Atraumatic Skin: Normal color, No rash, - - skin intact, no lacs Neurological: Alert, Oriented x3, Cranial nerves II-XII grossly intact, Normal Strength, Normal Sensation Psychological: Normal affect, Normal Mood Diagnostic/Tx/Re-eval Clinical Impression(s) from Imaging Studies Foot X-Ray 08/02/18 12:42 IMPRESSION: No fracture or dislocation. Mild degenerative changes of the first metatarsal phalangeal joint. Plantar calcaneal spur. Electronically Signed: Jorge Ernst, at 13:28 EDT Tel , Service support , - Medical Decision Making X-rays show no fracture, all of the bruising she has is more likely due to the anticoagulants she takes. Reassured. Offered a postop shoe, supportive care advised. ED Disposition - Plan for ED Patient: Disposition: Home or Assisted Living Diagnosis: Contusion of left great toe without damage to nail Instructions: ED Contusion Lower Ext Referrals: Feng Hayes MD [Primary Care Provider] - As Needed ()
--- NOTE | 2018-08-02 12:42 | RAD_ITS ---
STUDY: X-RAY - LEFT FOOT CLINICAL: Female, 68 years old. First toe pain and swelling. TECHNIQUE: 3 view(s) of the foot. COMPARISON: None. FINDINGS: There is no evidence of fracture or dislocation. There are mild degenerative changes at the first metatarsophalangeal joint. There is a plantar calcaneal spur noted. There are no radiodense foreign bodies. RAD/Foot min 3 Views IMPRESSION: No fracture or dislocation. Mild degenerative changes of the first metatarsal phalangeal joint. Plantar calcaneal spur. Electronically Signed: Jorge Dukes, at 13:28 EDT Tel , Service support ,
[2018-08-02 14:04] VITALS: BP 169/72; PULSE 54; RESP 16; O2SAT 96
== END 2018-08-02 14:05 | disposition home or self-care (01) ==
PROVIDERS: Emergency Provider Emergency Medicine; Family Provider Family Medicine; PCP Family Medicine
DX: S90.112A Contusion of left great toe without damage to nail, initial encounter (principal); M77.32 Calcaneal spur, left foot; W10.9XXA Fall (on) (from) unspecified stairs and steps, initial encounter; Y93.9 Activity, unspecified; Y92.9 Unspecified place or not applicable; F32.9 Major depressive disorder, single episode, unspecified; F41.9 Anxiety disorder, unspecified; I25.10 Atherosclerotic heart disease of native coronary artery without angina pectoris; J43.9 Emphysema, unspecified; E78.5 Hyperlipidemia, unspecified; I10 Essential (primary) hypertension; K58.9 Irritable bowel syndrome, unspecified; G47.33 Obstructive sleep apnea (adult) (pediatric); I48.0 Paroxysmal atrial fibrillation; Z95.5 Presence of coronary angioplasty implant and graft; Z79.01 Long term (current) use of anticoagulants; Z79.02 Long term (current) use of antithrombotics/antiplatelets; Z79.899 Other long term (current) drug therapy; Z87.891 Personal history of nicotine dependence
CPT/HCPCS: 73630; 99283

== ENCOUNTER → 2018-09-07 | Outpatient (CLI) | payer MEDICARE, MEDICAID, SELFPAY ==
--- NOTE | 2018-09-07 10:53 | ART_ITS ---
Reason For Study: PAD Procedure A bilateral lower extremity continuous wave Doppler with analog waveform analysis,segmental pressures,and ankle brachial indexes with exercise. Left Segmental Pressures Left brachial= 144mmHg. Left posterior tibial artery = 150mmHg. Left dorsalis pedis artery = 129mmHg. Left digit = 99 mmHg. The left dorsalis pedis waveforms are biphasic. The left posterior tibial artery waveforms are triphasic. Right Segmental Pressures Right brachial= 148mmHg. Right calf = 109mmHg. Right posterior tibial artery = 92mmHg. Right dorsalis pedis artery = 98mmHg. Right digit = 54 mmHg. The right dorsalis pedis waveforms are monophasic. The right posterior tibial artery waveforms are monophasic. Indices The right ankle brachial index by the dorsalis pedis is 0.66. The right ankle brachial index by the posterior tibial artery is 0.62. The right digital-brachial index is 0.36. The right post exercise ankle brachial index is 0.14. The left ankle brachial index by the dorsalis pedis is 0.87. The left ankle brachial index by the posterior tibial artery is 1.01. The left digital-brachial index is 0.67. The left post exercise ankle brachial index is 0.78. Interpretation Summary Suspect occlusion of the right superficical femoral artery with findings in the range of vascular claudication. This is consistent with duplex imaging that had previously identified occlusion of the right superficial femoral artery on 05/06/17. Marked decline with exercise and recovery at 9 minutes. Severe distal small vessel disease. Normal left PT BARON and mildly abnormal left DP index of 0.87 at rest but decline with exercise and recovery at 7 minutes consistent with vascular claudication. Abnormal left digital index of 0.67 consistent with moderate disease. Ordering Physician: Sathish Gar Referring Physician: Morgan Hayes Performed By: Jacqueline Coffman RVT
== END | disposition home or self-care (01) ==
LOC: CVS 10:50
PROVIDERS: Family Provider Family Medicine; PCP Family Medicine; Referring Provider Surgery; Visit Provider Surgery
DX: I73.9 Peripheral vascular disease, unspecified (principal)
CPT/HCPCS: 93924

== ENCOUNTER 2018-09-20 13:00 | Emergency (ER) | payer MEDICARE, MEDICAID, SELFPAY ==
[2018-09-11 15:18] VITALS: BMI 28.9
[2018-09-20 13:01] VITALS: BP 120/64; PULSE 53; RESP 16; TEMP 36.6; O2SAT 97; BMI 31.1
--- NOTE | 2018-09-20 13:28 | ED.VISSUMM ---
- ER Visit Summary Date of Service: 09/20/18 Chief Complaint: [Wound to nose] History of Present Illness: The patient is a 68 F [the emergency department with a wound on her nose for the last 3 days. Patient states that initially she felt like her nose needed itched and when she scratched it with her finger she noticed that she developed some bleeding from the nose. Patient then dabbed it with a wet paper towel. She developed what looked like abrasions to the top of the nose is been bleeding off and on. Patient is on Plavix and Xarelto. Patient has history of coronary artery disease as well as history of A. fib and hypertension. Patient denies any insect bites coming in contact with any chemicals.] Physical Examination: [HEENT-PERRLA, EOMI. Cranial nerves II through XII grossly intact. TMs clear. Mucous membranes moist. No adenopathy. Nose-patient has what appears like superficial abrasions to the top of the nose with several small areas of punctate bleeding noted. I attempted to clean the wound with some saline and small area had some capillary bleeding that I was able to stop with silver nitrate stick. Cardiovascular-regular rate and rhythm without murmur or ectopy Lungs-clear to auscultation, chest wall stable without crepitus or subcu emphysema Abdomen-normoactive bowel sounds, soft, nontender, no rebound or rigidity, no peritoneal signs. Extremities-intact ?4, normal range of motion, normal pulses, atraumatic] Test Results: [None indicated] Emergency Department Course and Treatment: [Silver nitrate stick to stop bleeding to the top of the nose.] Treatment Plan: [Patient will be started on Keflex. Patient advised to use bacitracin ointment to the wound.] Disposition: [Discharged home stable condition. Patient advised to follow-up with primary care physician for wound check in 3 to 5 days.] Impression: [Abrasion to nose] This note was generated with [employer] dictation software. It may contain incorrect words, spelling, and punctuation that were not noted in review of the chart prior to signing ED Disposition - Plan for ED Patient: Referrals: Feng Hayes MD [Primary Care Provider] -
--- NOTE | 2018-09-20 13:30 | ED.DEP ---
ED Disposition - Plan for ED Patient: Instructions: Abrasion Prescriptions: Cephalexin [Keflex] 500 mg PO Q6 #40 cap Prescription Printed Referrals: Feng Hayes MD [Primary Care Provider] - 3-5 Days
== END 2018-09-20 13:48 | disposition home or self-care (01) ==
LOC: ED 13:37
PROVIDERS: Emergency Provider Emergency Medicine; Family Provider Family Medicine; PCP Family Medicine
DX: S00.31XA Abrasion of nose, initial encounter (principal); X58.XXXA Exposure to other specified factors, initial encounter; Y93.9 Activity, unspecified; Y92.9 Unspecified place or not applicable; I25.10 Atherosclerotic heart disease of native coronary artery without angina pectoris; I48.91 Unspecified atrial fibrillation; I10 Essential (primary) hypertension; Z79.02 Long term (current) use of antithrombotics/antiplatelets; Z79.01 Long term (current) use of anticoagulants; Z79.899 Other long term (current) drug therapy; Z72.0 Tobacco use
CPT/HCPCS: 99282

== ENCOUNTER → 2018-09-25 | Outpatient (CLI) | payer MEDICARE, SELFPAY ==
[2018-09-11 15:18] VITALS: BMI 28.9
[2018-09-22 09:55] VITALS: BMI 30.3
--- NOTE | 2018-09-25 07:46 | ADUL_ITS ---
Reason For Study: PAOD Left Velocities Ext Iliac Artery, dist = 196 cm./sec. Common Femoral Artery, mid = 132.6 cm./sec. Supf. Femoral Artery, prox = 323.7 cm./sec. Supf. Femoral Artery, mid = 86.7 cm./sec. Supf. Femoral Artery, dist = 85.5 cm./sec. Profunda Femoral Artery = 200.2 cm./sec. Popliteal Artery, proximal, = 146.2 cm./sec. Popliteal Artery, mid = 97.9 cm./sec. Popliteal Artery, distal = 125.3 cm./sec. Post. Tibial Artery, prox = 91.6 cm./sec. Post Tibial Artery, mid = 79.4 cm./sec. Post Tibial Artery, dist. = 122 cm./sec. Peroneal Artery, prox = 55.4 cm./sec. Peroneal Artery, mid = 74.3 cm./sec. Peroneal Artery,dist. = 62 cm./sec. Ant.Tibial Artery, prox = 85.1 cm./sec. Ant Tibial Artery, mid = 72.3 cm./sec. Ant. Tibial Artery, distal = 68.8 cm./sec. Procedure Exam performed in department. Interpretation Summary >50% stenosis proximal left superficial femoral artery within area of stent. Otherwise patent left lower extremity arteries. Ordering Physician: Sathish Gar Referring Physician: Morgan Hayes Performed By: Jacqueline Coffman RVT
--- NOTE | 2018-09-25 07:46 | VDLE_ITS ---
Reason For Study: Pre op testing RIGHT LEFT GSV Prox thigh, 0.36 x 0.36 cm. GSV Prox thigh, 0.52 x 0.52 cm. GSV Mid thigh, 0.36 x 0.37 cm. GSV Mid thigh, 0.38 x 0.41 cm. GSV Distal thigh, 0.42 x 0.45 cm. GSV Distal thigh, 0.47 x 0.48 cm. GSV Prox calf, 0.52 x 0.53 cm. GSV Prox calf, 0.42 x 0.42 cm. GSV Mid calf, 0.27 x 0.31 cm. GSV Mid calf, 0.34 x 0.37 cm. GSV Distal calf, 0.35 x 0.38 cm. GSV Distal calf, 0.35 x 0.35 cm. SSV Prox, 0.33 x 0.33 cm. SSV Prox, 0.06 x 0.07 cm. SSV Mid, 0.30 x 0.31 cm. SSV Mid, 0.18 x 0.22 cm. SSV Distal, 0.27 x 0.28 cm. SSV Distal, 0.24 x 0.28 cm. Procedure Exam performed in department. Interpretation Summary Patent and compressible bilateral great saphenous veins and small saphenous veins with dimensions as noted. Ordering Physician: Sathish Gar Referring Physician: Morgan Hayes Performed By: Jacqueline Coffman RVT
--- NOTE | 2018-09-25 08:54 | CT_ITS ---
STUDY: CTA OF THE ABDOMINAL AORTA AND BILATERAL LOWER EXTREMITIES REASON FOR EXAM: Female, 68 years old. Leg pain RADIATION DOSAGE (If Supplied By Facility): CTDIvol = ( 9.31 ) mGy, DLP = ( 1082.26 ) mGycm TECHNIQUE: Axial CT angiography multi-detector data acquisition was obtained from the diaphragm to the toes following intravenous administration of 100 IV Isovue 370. Axial images and MIP images were reconstructed from the axial data set. Post-processing of the angiographic images was performed, with multiplanar reformation and 3D reconstruction. Individualized dose optimization techniques were used for this CT. TECHNICAL QUALITY: Good COMPARISON: None. Descriptors of Narrowing: None (0%) Mild (< 50%) Moderate (50-70%) Severe (70-90%) Subtotal/Total Occlusion (90-100%) Non-Evaluable (technically non-diagnostic FINDINGS: There is atelectasis noted at the lung bases. Visualized portions of the heart and pericardium are within normal limits. There are no calcified gallstones present. The spleen is enlarged, measuring 13.9 cm. The liver, pancreas, adrenal glands and kidneys are within normal limits. There is no bowel obstruction or inflammation. The appendix is normal. There is a large amount of stool in the colon, consistent with constipation. There is no abdominal or pelvic free air, free fluid or lymphadenopathy. There are no destructive osseous lesions. VESSELS: Abdominal aorta: 4.2 x 4.2 cm infrarenal abdominal aortic aneurysm. No evidence of dissection. Celiac and superior mesenteric arteries: No demonstrated narrowing. Inferior mesenteric artery: No demonstrated narrowing. Right renal artery(arteries): No demonstrated narrowing. Left renal artery(arteries): No demonstrated narrowing. Right common iliac artery: No demonstrated narrowing. Right external iliac artery: There is mild diffuse narrowing. Right internal iliac artery: There is mild diffuse narrowing. Left common iliac artery: There is mild diffuse narrowing. Left external iliac artery: There is mild diffuse narrowing. Left internal iliac artery: There is mild diffuse narrowing. RIGHT LOWER EXTREMITY Right common femoral artery: No demonstrated narrowing. Right profundus femoris: No demonstrated narrowing. Right superficial femoral: Occluded stent with reconstitution of the right popliteal artery. Right popliteal artery: No demonstrated narrowing. Right tibioperoneal trunk: No demonstrated narrowing. Right anterior tibial artery: No demonstrated narrowing. Right posterior tibial artery: No demonstrated narrowing. Right peroneal artery: No demonstrated narrowing. LEFT LOWER EXTREMITY Left common femoral artery: No demonstrated narrowing. Left profundus femoris: No demonstrated narrowing. Left superficial femoral: Patent stent. Left popliteal artery: No demonstrated narrowing. Left tibioperoneal trunk: No demonstrated narrowing. Left anterior tibial artery: Patent proximally, but occluded in its mid to distal portions. Left posterior tibial artery: No demonstrated narrowing. Left peroneal artery: No demonstrated narrowing. CT/CTA Abd w/Runoff W/WO Contrast IMPRESSION: 4.2 x 4.2 cm infrarenal abdominal aortic aneurysm. No evidence of aortic dissection. Occluded stent in the right superficial femoral artery with reconstitution of the right popliteal artery. Patent stent in the left superficial femoral artery. Electronically Signed: Jorge Dukes, at 17:04 EDT Tel , Service support ,
[2018-09-25 09:06] LABS: CREATININE FINGERSTICK 0.9 mg/dL (0.55-1.02); EGFR FINGERSTICK > 60.0000 mL/min (>60)
== END | disposition home or self-care (01) ==
LOC: CVS 07:44
PROVIDERS: Family Provider Family Medicine; PCP Family Medicine; Referring Provider Surgery; Visit Provider Surgery
DX: Z01.818 Encounter for other preprocedural examination (principal); I77.9 Disorder of arteries and arterioles, unspecified
CPT/HCPCS: 75635; 93926; 93970; Q9967

== ENCOUNTER → 2018-10-02 | Outpatient (CLI) | payer MEDICARE, MEDICAID, SELFPAY ==
[2018-09-22 09:55] VITALS: BMI 30.3
[2018-09-29 15:29] VITALS: BMI 30.3
--- NOTE | 2018-10-02 15:31 | STRESSREP ---
Stress Test Report Oncologic myocardial perfusion stress test. 68-year-old lady with a history of previous angioplasty of her right coronary artery and obtuse marginal vessel. Stress protocol: Resting EKG demonstrates sinus bradycardia with a rate of 48 bpm normal intervals are noted resting blood pressure 160/62 mmHg. 0.4 mg of regadenoson was infused per usual protocol followed by rapid intravenous illness flush injection continuous EKG monitoring was performed. The patient maintained sinus rhythm throughout the recording. The maximum heart rate attained was 51 bpm which was 33% of maximum predicted heart rate and maximum workload was 1 metabolic equivalent. At rest there were no ST or T wave changes noted suggest abnormal flow reserve at peak infusion nonspecific ST-T wave changes were noted. Resting blood pressure was noted to be 160/62 mmHg final blood pressures 152/68 mmHg. Myocardial perfusion protocol. 11.4 mCi of technetium 99m sestamibi was injected at rest. 0.4 mg of regadenoson was infused per usual protocol. At peak infusion 32.7 mCi of technetium 99m sestamibi was injected stress images were obtained stress and rest images were reconstructed in comparing the short axis vertical and horizontal long axis. Gated images were also obtained Perfusion SPECT analysis: Review of the stress images demonstrate normal uptake of tracer noted in all areas of myocardium. There is mild reduction in the mid anterior wall which is also present on the stress images. The resting images demonstrate a similar pattern. The above may be suggestive of anterior breast wall attenuation. No obvious ischemia is noted. Gated SPECT analysis: The gated ejection fraction is noted to be 69%. Conclusion: Normal pharmacologic myocardial perfusion stress test. Preserved ejection fraction.
== END | disposition home or self-care (01) ==
LOC: CVS 06:17
PROVIDERS: Family Provider Family Medicine; PCP Family Medicine; Referring Provider Internal Medicine Cardiovascular Disease; Visit Provider Internal Medicine Cardiovascular Disease
DX: Z01.810 Encounter for preprocedural cardiovascular examination (principal); I25.10 Atherosclerotic heart disease of native coronary artery without angina pectoris; I10 Essential (primary) hypertension; Z95.5 Presence of coronary angioplasty implant and graft
CPT/HCPCS: 78452; 93017; A9500; A4216; J2785

== ENCOUNTER 2018-12-31 11:49 | Emergency (ER) | payer MEDICARE, MEDICAID, SELFPAY ==
[2018-09-29 15:29] VITALS: BMI 30.3
[2018-12-31 11:49] VITALS: BP 141/72; PULSE 86; RESP 16; TEMP 36.7; O2SAT 96; BMI 29.8
--- NOTE | 2018-12-31 11:56 | RAD_ITS ---
STUDY: X-RAY - RIGHT HAND REASON FOR EXAM: Pain and swelling, fall yesterday with fifth finger injury. TECHNIQUE: 3 view(s) of the hand. COMPARISON: None. FINDINGS: Normal radiocarpal articulation. Normal distal radioulnar joint. Normal visualized carpal bones. There is mild triscaphe joint space narrowing. Normal carpometacarpal articulation of the thumb. Normal second through fifth carpometacarpal joints. Normal metacarpi. Normal metacarpophalangeal joint of the thumb. Normal interphalangeal joint of the thumb. Normal proximal and distal phalanges of the thumb. Normal metacarpophalangeal joints of the second through fifth fingers. There is mild joint space narrowing of the third through fifth distal interphalangeal joints. Normal phalanges of the second through fifth fingers. The soft tissue structures are unremarkable. 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 No demonstrated fracture. Electronically Signed: North Castillo MD at 12:32 EDT Tel , Service support ,
--- NOTE | 2018-12-31 11:57 | ED.VIS.GEN ---
History of Present Illness Chief Complaint: Upper Extremity Injury Informant: Patient Onset: Yesterday Current Severity: Mild Narrative: Presents with injury to the right fifth digit she indicates she fell yesterday and somehow injured her hand she has difficulty with full flexion of the right fifth digit no elbow injury no numbness weeks paresthesias no other complaints he is on Plavix and Xarelto for heart condition is been stable she did not hit her head and her only complaint is the right fifth digit Past Medical History - Allergies and Home Meds Allergies/Adverse Reactions: Allergies No Known Allergies Allergy (Verified 12/31/18 11:51) Primary Care Physician: Feng Hayes MD [Primary Care Provider] - Past Medical History: - Surgical History: - - LE intervention for PAD per Dr. Gar, cardiac catheterizations w/ total PCI x 7, Lower back injections, DIOMEDES, T+A, R foot surgery. Smoking Status: Current some day smoker - Family History Maternal Family History: Family History (Last Reviewed 09/29/18 @ 15:28 by Laura Narayan) Father Heart disease Hypertension Seizures Sister CVA (cerebral vascular accident) Hypertension Other Family history of hypertension Family History: Reports: Diabetes, High Cholesterol, Heart Disease, Hypertension, Stroke Paternal Family History: Family History (Last Reviewed 09/29/18 @ 15:28 by Laura Narayan) Father Heart disease Hypertension Seizures Sister CVA (cerebral vascular accident) Hypertension Other Family history of hypertension Family History: Reports: Diabetes, High Cholesterol, Heart Disease, Hypertension, Stroke Review of Systems ROS: - Includes as above General: Denies: Chills, Fever, Sweats Eyes: Denies: Visual changes - bilaterally, Diplopia ENT: Denies: Rhinorrhea, Sore throat Cardiovascular: Denies: Chest pain, Palpitations Respiratory: Denies: Dyspnea, Cough, Dyspnea on exertion Gastrointestinal: Denies: Abdominal pain, Nausea, Vomiting, Diarrhea, Melena, Hematochezia Genitourinary: Denies: Dysuria, Hematuria, Frequency Musculoskeletal: Reports: Extremity Pain. Denies: Back pain Skin: Denies: Rash, Wounds Neurological: Denies: Headache, Weakness, Numbness Physical Exam Vital Signs/Narrative: Vital Signs Temp Pulse Resp BP Pulse Ox 12/31/18 11:49 98.1 F 86 16 141/72 H 96 General: Well nourished, Well developed, No Acute Distress Head: Normocephalic, Atraumatic Eyes: Perrl, EOMI ENT: Moist mucous membranes, No rhinorrhea Neck: Supple, Nontender Cardiovascular: Regular rate, Regular rhythm, No murmurs Respiratory: No distress, CTA bilaterally, Chest nontender Abdomen: Soft, Nontender, Nondistended, Normal bowel sounds Back: Nontender, Normal Inspection Extremities: Nontender, No edema, - - Very mild pain over the PIP joint fifth digit she is able to flex and extend but is slightly limited to that digit no numbness weeks paresthesias no stability no deformity otherwise Skin: Normal color, No rash Neurological: Alert, Oriented x3, Cranial nerves II-XII grossly intact, Normal Strength, Normal Sensation Psychological: Normal affect, Normal Mood Diagnostic/Tx/Re-eval - Medical Decision Making X-ray of the hand and fifth digit show no acute ab normality arthritis, explained that the patient at this time explained the concept of occult injury she is fitted with a aluminum splint ice elevation she will follow-up with orthopedics cable installation manager Dr. Dl Zhou and return for change in symptoms she will be given 4 [place] use at bedtime as she is on Xarelto and Plavix Home stable Final impression rt Hand fifth digit injury ED Disposition - Plan for ED Patient: Diagnosis: Right hand fifth digit injury Instructions: CRUSH INJURY, Hand/Finger Prescriptions: Hydrocodone Bitart/Apap 5-325 [[place] 5MG-325MG] 1 tab PO Q4H PRN PRN 2 Days #7 tab PRN Reason: Pain Prescription Printed Referrals: Feng Hayes MD [Primary Care Provider] -
[2018-12-31 11:59] VITALS: RESP 18
[2018-12-31] MEDS: Acetaminophen 325 MG Tablet 650 MG PO (12:24)
[2018-12-31 12:51] VITALS: RESP 16
== END 2018-12-31 12:51 | disposition home or self-care (01) ==
LOC: ED 12:19
PROVIDERS: Emergency Provider Emergency Medicine; Family Provider Family Medicine; PCP Family Medicine
DX: S69.91XA Unspecified injury of right wrist, hand and finger(s), initial encounter (principal); W19.XXXA Unspecified fall, initial encounter; Y93.9 Activity, unspecified; Y92.9 Unspecified place or not applicable; I73.9 Peripheral vascular disease, unspecified; I51.9 Heart disease, unspecified; Z79.02 Long term (current) use of antithrombotics/antiplatelets; Z79.01 Long term (current) use of anticoagulants; Z79.899 Other long term (current) drug therapy; F17.200 Nicotine dependence, unspecified, uncomplicated
CPT/HCPCS: 73130; 99283

== ENCOUNTER → 2019-01-07 10:39 | Outpatient (CLI) | payer MEDICARE, MEDICAID, SELFPAY ==
[2018-12-31 11:49] VITALS: BMI 29.8
== END ==
PROVIDERS: Family Provider Family Medicine; PCP Family Medicine; Referring Provider Nurse Practitioner Family; Visit Provider Nurse Practitioner Family
DX: I49.9 Cardiac arrhythmia, unspecified (principal); R06.02 Shortness of breath
CPT/HCPCS: 93225; 93226

== ENCOUNTER 2019-01-31 11:08 | Emergency (ER) | payer MEDICARE, MEDICAID, SELFPAY ==
[2019-01-20 15:03] VITALS: BMI 29.9
[2019-01-31 11:09] VITALS: BP 152/82; PULSE 84; RESP 18; TEMP 36.1; O2SAT 99; BMI 30.4
--- NOTE | 2019-01-31 11:29 | CT_ITS ---
STUDY: CT ABDOMEN AND PELVIS WITHOUT CONTRAST REASON FOR EXAM: Female, 69 years old. Trauma and low back pain RADIATION DOSAGE (If Supplied By Facility): CTDIvol = ( 11.64 ) mGy, DLP = ( 497.28 ) mGycm TECHNIQUE: Transaxial images were obtained from the dome of the diaphragm to the symphysis pubis without oral contrast, and without intravenous contrast. Sagittal and coronal images were reconstructed. Individualized dose optimization techniques were used for this CT. COMPARISON: September 25, 2018 CTA abdomen pelvis FINDINGS: Lung bases demonstrate no evidence for consolidative process. No pericardial effusion. Patchy groundglass densities with intralobular septal thickening seen may relate with congestive changes. Liver and spleen demonstrate no focal lesions. Gallbladder slightly distended. The pancreas are within normal limits. The adrenal glands appear unremarkable. Right-sided renal cysts measuring up to 5 mm No evidence for hydronephrosis. There is redemonstration of abdominal aortic aneurysm seen infrarenally measuring up to 4.4 cm in greatest dimension with peripheral calcifications. Ectasia of the common iliac arteries also seen. Uncomplicated colonic diverticulosis. Nonobstructive bowel gas pattern Normal appendix Stent device is within the common femoral arteries partially visualized. No definite evidence for acute pelvic fractures. Degenerative changes in the cervical spine. Mild wedging of the lower thoracic vertebrae of indeterminate age. Spondylotic changes with multilevel neural foraminal narrowing in the lumbar spine also seen. Spinous processes are intact. Transverse processes are intact IMPRESSION: No evidence for intra-abdominal visceral organ injury is placed on this noncontrast CT. No definite evidence for pelvic fractures. Redemonstration of infrarenal abdominal aortic aneurysm measuring up to 4.4 cm x 4.4 cm essentially similar to previous exam. Electronically Signed: Sudheer Dafne, at 12:31 EST Tel , Service support , CT/Abdomen/Pelvis without Cont
[2019-01-31] MEDS: Acetaminophen 325 MG Tablet 650 MG PO (12:33)
[2019-01-31] MEDS: Ketorolac 15 MG/ML Vial IV (12:33)
--- NOTE | 2019-01-31 13:06 | ED.VIS.GEN ---
History of Present Illness Chief Complaint: Back Informant: Patient Onset: Today Narrative: 69-year-old female presents with back pain. States that she was going up the stairs and tripped. States she did not fall but did stiffen and began to have pain in her left lower back. Denies any trauma. Does have a history of back pain in the past. Has taken aspirin without relief. She denies any urinary retention, saddle anesthesia or stool incontinence. Denies any numbness or weakness. Past Medical History - Allergies and Home Meds Allergies/Adverse Reactions: Allergies No Known Allergies Allergy (Verified 01/31/19 11:10) Primary Care Physician: Feng Hayes MD [Primary Care Provider] - Surgical History: - - LE intervention for PAD per Dr. Gar, cardiac catheterizations w/ total PCI x 7, Lower back injections, DIOMEDES, T+A, R foot surgery. Smoking Status: Current every day smoker - Family History Maternal Family History: Family History (Last Reviewed 09/29/18 @ 15:28 by Laura Narayan) Father Heart disease Hypertension Seizures Sister CVA (cerebral vascular accident) Hypertension Other Family history of hypertension Family History: Reports: Diabetes, High Cholesterol, Heart Disease, Hypertension, Stroke Paternal Family History: Family History (Last Reviewed 09/29/18 @ 15:28 by Laura Narayan) Father Heart disease Hypertension Seizures Sister CVA (cerebral vascular accident) Hypertension Other Family history of hypertension Family History: Reports: Diabetes, High Cholesterol, Heart Disease, Hypertension, Stroke Review of Systems General: Denies: Chills, Fever Cardiovascular: Denies: Chest pain, Palpitations Respiratory: Denies: Dyspnea, Cough, Dyspnea on exertion Gastrointestinal: Denies: Abdominal pain, Nausea, Vomiting Genitourinary: Denies: Dysuria, Hematuria, Frequency Musculoskeletal: Reports: Back pain. Denies: Extremity Pain Skin: Denies: Rash, Wounds Neurological: Denies: Headache, Weakness, Numbness Physical Exam Vital Signs/Narrative: Vital Signs Temp Pulse Resp BP Pulse Ox 01/31/19 11:09 97.0 F L 84 18 152/82 H 99 General: Well nourished, Well developed, No Acute Distress Head: Normocephalic, Atraumatic Eyes: Perrl, EOMI ENT: Moist mucous membranes, No rhinorrhea Neck: Supple, Nontender Cardiovascular: Regular rate, Regular rhythm, No murmurs Respiratory: No distress, CTA bilaterally, Chest nontender Abdomen: Soft, Nontender, Nondistended, Normal bowel sounds Back: - - To left lower lumbar paraspinal muscles and SI region. Extremities: Tenderness, - - 5 out of 5 motor and lower extremities. 2/4 patellar reflexes. Plantar flexion intact. EHL intact. Skin: Normal color, No rash Neurological: Alert, Oriented x3, Cranial nerves II-XII grossly intact, Normal Strength, Normal Sensation Psychological: Normal affect, Normal Mood Diagnostic/Tx/Re-eval - Medical Decision Making Evaluated for back pain. This is nontraumatic. No signs of cauda equina. Given Toradol and Tylenol. I do not feel imaging is indicated. She is neurovascular intact. Appears to be a muscle strain. Patient will be given Tylenol for home. Instructed to follow-up with her primary care provider. Patient was then discharged home ED Disposition - Plan for ED Patient: Disposition: Home or Assisted Living Diagnosis: Back pain Instructions: BACK PAIN (Acute or Chronic) Prescriptions: Acetaminophen [Tylenol Extra Strength] 500 mg PO Q4H PRN PRN #20 tablet PRN Reason: Pain Score 1-10/10 Referrals: Feng Hayes MD [Primary Care Provider] - 3-5 Days
[2019-01-31 13:34] VITALS: RESP 18
== END 2019-01-31 13:34 | disposition home or self-care (01) ==
PROVIDERS: Emergency Provider Emergency Medicine; Family Provider Family Medicine; PCP Family Medicine
DX: S39.012A Strain of muscle, fascia and tendon of lower back, initial encounter (principal); X50.1XXA Overexertion from prolonged static or awkward postures, initial encounter; Y93.9 Activity, unspecified; Y92.9 Unspecified place or not applicable; F17.200 Nicotine dependence, unspecified, uncomplicated
CPT/HCPCS: 74176; 99283; A4216

== ENCOUNTER 2019-03-17 13:59 | Inpatient (IN) | payer MEDICARE, MEDICAID, SELFPAY ==
[2019-03-17] VITALS (9 sets, daily range): BP systolic 98–190; BP diastolic 73–109; PULSE 97–116; RESP 18–24; TEMP 36.8–36.9; O2SAT 94–97; BMI 28.3; BMI 30.5
--- NOTE | 2019-03-17 14:27 | EKG12_ITS ---
Test Reason : SOB Blood Pressure : / mmHG Vent. Rate : 101 BPM Atrial Rate : 057 BPM P-R Int : 000 ms QRS Dur : 112 ms QT Int : 406 ms P-R-T Axes : 000 019 000 degrees QTc Int : 526 ms Atrial fibrillation Incomplete left bundle branch block Nonspecific ST and T wave abnormality Prolonged QT Abnormal ECG Confirmed by GILBERT JEAN-BAPTISTE, FRANCIS ([id number]), food expeditor LIGIA GUTIERREZ ([id number]) on 03/19/2019 2:18:39 PM Referred By: Fernanda Puri Confirmed By:FRANCIS HUNT MD
--- NOTE | 2019-03-17 14:30 | RAD_ITS ---
STUDY: X-RAY CHEST REASON FOR EXAM: Female, 69 years old. SOB WITH PRODUCTIVE COUGH FOR OVER A WEEK, AND ABD PAIN WITH CONSTIPATION. TECHNIQUE: AP COMPARISON: 07/28/2017 FINDINGS: EKG leads project over the chest. Central pulmonary vascular congestion with interstitial reticular opacities new since the prior study. There is slight blunting of bilateral costophrenic angles. There is moderate cardiac enlargement. Normal mediastinum and artis. There is prominence of the pulmonary hilar arteries and peripheral pulmonary arteries, consistent with congestive heart failure (CHF). There is atherosclerotic calcification of the aortic arch with tortuosity. No acute bony process. There is no demonstrated abnormality of the visualized soft tissue structures of the upper abdomen. RAD/Chest 1 View (Portable) IMPRESSION: Unfavorable change. CHF with interstitial edema and trace effusions. Electronically Signed: Hugo Spaulding MD ([place]) at 15:00 EST , Service support ,
--- NOTE | 2019-03-17 14:36 | ED.RN ---
PT REPORTS SOB IS WITH EXERTION AND FEELS LIKE CP AND GETS DIAPHORETIC RESOLVES ABOUT MIN AFTER RESTING.,
--- NOTE | 2019-03-17 14:36 | ED.VIS.GEN ---
History of Present Illness Chief Complaint: General Illness Detail of Chief Complaint: Exertional chest pain and dyspnea, constipation and cough Informant: Patient Onset: Days - Patient states she has not had a bowel movement in 5 to 6 days. She states she is not flagellated. She denies history of abdominal surgery. Is not eaten well for the past several days., Weeks - Exertional chest pain and dyspnea for 2 to 3 weeks. Patient states if she carries a 12 pack of pop she now becomes short of breath after walking 20 feet with chest heaviness that subsides after sitting for 2 to 3 minutes. Context: Onset with activity, Sudden Onset Timing: Intermittent Quality: Pressure/heaviness Location: Midsternal Current Severity: - - No chest discomfort complains of vague abdominal pain Maximum Severity: Moderate Worsened by: Chest pain related to exertion Relieved by: Rest Associated Symptoms: Dyspnea and diaphoresis Narrative: Patient is an elderly woman with history of coronary disease who presents with 3 complaints. She has had exertional chest pain and dyspnea for the past 2 to 3 weeks. She made the comment that if she carries a 5 pound bag of sugar or a 12 pack of pop she becomes short of breath sweaty and has chest heaviness. Her symptoms resolve after sitting for 2 to 3 minutes. She also reports cough. She does have history of lung problems. Her cough is nonproductive. She denies history of PE or DVT. She denies black, maroon or bloody stool. She does have history of IBS. She also reports constipation with no flatus. No history of abdominal surgery. Prior similar symptoms: Yes Recent Illness/Hospitalization: No - Past Medical History (1) Abdominal aortic aneurysm (AAA) Status: Acute (2) Atherosclerotic peripheral vascular disease Status: Chronic (3) Essential (primary) hypertension Status: Chronic (4) HLD (hyperlipidemia) Status: Chronic (5) Nicotine dependence Status: Chronic (6) Non-STEMI (non-ST elevated myocardial infarction) Status: Chronic (7) Paroxysmal atrial fibrillation Status: Chronic (8) History of coronary artery stent placement Status: Resolved Comment: [id number] LCx and OM 03/20/99; PCI-CARMEN of distal RCA and POBA-ostium of posterolateral branch for stent jailing; PCI-CARMEN to RCA and PDA 02/20; PCI-CARMEN to ISR-RCA 04/21/2015 Past Medical History - Allergies and Home Meds Allergies/Adverse Reactions: Allergies No Known Allergies Allergy (Verified 03/17/19 14:00) Primary Care Physician: Feng Hayes MD [Primary Care Provider] - Prior records reviewed: Yes Surgical History: - - LE intervention for PAD per Dr. Gar, cardiac catheterizations w/ total PCI x 7, Lower back injections, DIOMEDES, T+A, R foot surgery. Lives: Alone Smoking Status: Current every day smoker Alcohol: None Drugs: None - Family History Maternal Family History: Family History (Last Reviewed 09/29/18 @ 15:28 by Laura Narayan) Father Heart disease Hypertension Seizures Sister CVA (cerebral vascular accident) Hypertension Other Family history of hypertension Family History: Reports: Diabetes, High Cholesterol, Heart Disease, Hypertension, Stroke Paternal Family History: Family History (Last Reviewed 09/29/18 @ 15:28 by Laura Narayan) Father Heart disease Hypertension Seizures Sister CVA (cerebral vascular accident) Hypertension Other Family history of hypertension Family History: Reports: Diabetes, High Cholesterol, Heart Disease, Hypertension, Stroke Review of Systems General: Denies: Chills, Fever, Subjective, Sweats Eyes: Denies: Visual changes - bilaterally, Blurred Vision - bilaterally ENT: Denies: Bilateral ear pain, Rhinorrhea, Sore throat Cardiovascular: Reports: Chest pain, Palpitations Respiratory: Reports: Dyspnea, Cough, Dyspnea on exertion. Denies: Sputum, Orthopnea, Paroxysmal nocturnal dyspnea Gastrointestinal: Reports: Abdominal pain, Constipation. Denies: Nausea, Vomiting, Diarrhea, Melena, Hematochezia Genitourinary: Denies: Dysuria, Hematuria, Frequency Musculoskeletal: Denies: Myalgias, Arthralgias, Neck pain, Back pain, Swelling, Extremity Pain, -, - Neurological: Denies: Headache, Weakness, Numbness Endocrine: Denies: Polyuria, Polydipsia Hematologic: Reports: - - Patient states she is taking Plavix and Xarelto. Denies: Easy bruising, Easy bleeding Physical Exam Vital Signs/Narrative: Vital Signs Temp Pulse Resp BP Pulse Ox 03/17/19 14:00 98.3 F 116 H 24 H 190/109 H 95 Inital Vital Signs reviewed: Yes General: Well nourished, Well developed, No Acute Distress Head: Normocephalic, Atraumatic Eyes: Perrl, EOMI ENT: Moist mucous membranes, No rhinorrhea Neck: Supple, Nontender, No lymphadenopathy, No JVD Cardiovascular: Regular rate, Regular rhythm, No murmurs, Normal S1, Normal S2 Respiratory: No distress, CTA bilaterally, Chest nontender Abdomen: Soft, Nontender, Nondistended, Normal bowel sounds Rectal: - - No stool in the rectal vault. Material that was noted on examining finger was brown in color. Back: Nontender, Normal Inspection. Negative for: CVA tenderness, Spinal tenderness Extremities: Nontender, No edema. Negative for: Tenderness, Calf Tenderness Skin: No rash, No Trauma, Pallor. Negative for: Cyanosis, Diaphoresis, Jaundice Neurological: Alert, Oriented x3, Cranial nerves II-XII grossly intact, Normal Strength, Normal Sensation Psychological: Normal affect, Normal Mood Diagnostic/Tx/Re-eval Chest X-Ray - ED: 1 View, Normal, Bony Structures, Cardiomegaly, CHF Impressions Chest X-Ray 03/17/19 14:30 IMPRESSION: Unfavorable change. CHF with interstitial edema and trace effusions. Electronically Signed: Hugo Spaulding MD ([place]) at 15:00 EST , Service support , 03/17/19 14:30 Chest 1 View (Portable) [RAD] Stat Laboratory Results 03/17/19 14:30 WBC 7.9 RBC 3.92 L Hgb 11.2 L Hct 34.5 L MCV 88.0 MCH 28.6 MCHC 32.5 RDW Std Deviation 44.4 H RDW Coeff of Natalie 14.0 Plt Count 192 MPV 10.9 Immature Gran % (Auto) 0.400 Neut % (Auto) 79.8 H Lymph % (Auto) 12.1 L Foard % (Auto) 5.9 Eos % (Auto) 1.5 Baso % (Auto) 0.3 Absolute Neuts (auto) 6.3 Absolute Lymphs (auto) 0.95 Nucleated RBC % 0 Agrees there is evidence of congestive heart failure. Patient has classic exertional angina. Spoke with hospitalist she is to be admitted. - EKG Initial EKG Interpretation: Atrial Fibrillation - Ventricular rate is 101. QRS duration 112 ms. QT duration 406 ms. There is a nonspecific intraventricular conduction delay. QT interval is prolonged. This is different from the EKG obtained July 28, 2017. - Medical Decision Making Reyna has classic angina per anthony criteria. EKG and troponin was obtained. Chest x-ray is obtained to assess for pneumonia versus congestive heart failure versus dyspnea secondary to angina. Patient does appear pale. Will obtain CBC to assess H&H. Basic melena panel was obtained to assess renal function. Received Lasix for CHF. Nitropaste for preload reduction. She was not given aspirin since she is on Plavix and Xarelto because of increased risk of bleeding. - Critical Care Time Critical care time (excluding procedures): Discussing w/Patient &/or Family/[employer]al Inspector, Discussing w/Consultants, Arranging Admission or Transfer - cc time 22 minutes ED Disposition - Plan for ED Patient: Disposition: Acute Care Hospital [facility] Diagnosis: Unstable angina pectoris due to coronary arteriosclerosis, Acute congestive heart failure, Atrial fibrillation Referrals: Feng Hayes MD [Primary Care Provider] -
[2019-03-17 14:45] LABS: Absolute Lymphocyte Count 0.95 X10^3/uL (0.83-4.51); Absolute Neutrophil Count 6.3 X10^3/uL (2.0-7.7); Basophil# 0.02 X10^3/uL; Basophil% 0.3 % (0-1); Eosinophil# 0.12 X10^3/uL; Eosinophils% 1.5 % (0-5); Hematocrit 34.5 % (37-47); Hemoglobin 11.2 g/dL (12.0-15.0); Lymphocyte # 0.95 X10^3/ul (4.0); Lymphocyte % 12.1 % (19-41); Mean Corp Hgb Conc 32.5 g/dL (32-36); Mean Corpuscular Hgb 28.6 pg (27.0-32.0); Mean Platelet Vol. 10.9 fl (6.2-12.0); Monocyte# 0.46 X10^3/uL; Monocyte% 5.9 % (0-10); NRBC Flagged by Analyzer 0 % (0-5); Neutrophil # 6.27 X10^3/uL (2.7-7.7); Neutrophil % 79.8 % (47-70); Platelet Count 192 K/mm3 (150-450); RBC Distribution Width SD 44.4 fl (35.1-43.9); Red Blood Count 3.92 M/mm3 (4.2-5.4); White Blood Count 7.9 K/mm3 (4.4-11.0)
[2019-03-17] MEDS: Nitroglycerin Oint 1 INCH PACKET TRANSDERM. (15:08)
[2019-03-17 15:09] LABS: Anion Gap 7 (5-15); BUN 15 mg/dL (7-18); BUN/Creat Ratio 18.7 RATIO (10-20); Calcium,Total 8.7 mg/dL (8.5-10.1); Chloride 111 mmol/L (98-107); EST Glomerular Filtration Rate 75 mL/min (>60); Est Glom Filt Rate - Afr Amer 91 mL/min (>60); Estimated Creatinine Clearance 51.75 ml/min; Glucose 112 mg/dL (74-106); Potassium 3.7 mmol/L (3.5-5.1); Sodium Level 142 mmol/L (136-145)
--- NOTE | 2019-03-17 15:13 | NURSING ---
PCU WHITE EXERTIONAL UNSTABLE ANGINA, CHF, ATRIAL FIB
--- NOTE | 2019-03-17 15:39 | PCM.HP.STD ---
Problem List (1) Chest pain Status: Acute (2) Acute congestive heart failure Status: Acute (3) PAD (peripheral artery disease) Status: Chronic (4) Abdominal aortic aneurysm (AAA) Status: Chronic Qualifiers: Presence of rupture: without rupture Qualified Code(s): I71.4 - Abdominal aortic aneurysm, without rupture (5) Nicotine dependence Status: Chronic (6) Essential (primary) hypertension Status: Chronic (7) History of coronary artery stent placement Status: Resolved Comment: [id number] LCx and OM 03/20/99; PCI-CARMEN of distal RCA and POBA-ostium of posterolateral branch for stent jailing; PCI-CARMEN to RCA and PDA 02/20; PCI-CARMEN to ISR-RCA 04/21/2015 (8) Paroxysmal atrial fibrillation Status: Chronic (9) HLD (hyperlipidemia) Status: Chronic Qualifiers: Hyperlipidemia type: pure hypercholesterolemia Qualified Code(s): E78.00 - Pure hypercholesterolemia, unspecified; E78.0 - Pure hypercholesterolemia (10) Unstable angina pectoris due to coronary arteriosclerosis Status: Acute History of Present Illness Date of Admission: 03/17/19 Chief Complaint: CP and SOB The patient is a 69 year old F with pmhx of CAD with 7 prior stents, PAD with leg stents, paroxysmal Afib, ongoing nicotine abuse, suspected COPD, HLD, HTN, anxiety, who presents to the ER with c/o SOB and Chest pain She has been feeling SOB progressively worsening for about 3 weeks. She also has intermittent chest pain. These both occur with exertion especially with climbing stairs, also with short walks and lifting anything at least 5lbs or more. She has chest pain described as a vice on her chest squeezing her. This is associated with the SOB. Deep breaths improve her CP. It lasts about 3 mins when it occurs. Also when she gets CP she feels faint. She has noticed that she has LLE pitting edema, and notes PND and orthopnea. She had a stress test in September 2018 that was negative. She went to see Dr. Treviño before xmas and her metoprolol was increased. She had an outpatient holter monitor that showed Afib and tachycardia. She has been smoking since age 13, and lately smokes about 1 pack every 2-3 days, however with her SOB she has been unable to smoke. She also complains of constipation and no BM since friday. [] Past Medical History Past Medical History (Chronic Problems): Chronic Problems (Last Reviewed 09/29/18 @ 15:28 by Laura Narayan) PAD (peripheral artery disease) (Chronic) Abdominal aortic aneurysm (AAA) (Chronic) Claudication in peripheral vascular disease (Chronic) Nicotine dependence (Chronic) Essential (primary) hypertension (Chronic) Atherosclerotic peripheral vascular disease (Chronic) Atherosclerotic heart disease of [place] coronary artery without angina pectoris (Chronic) [id number] LCx and OM 03/20/99; PCI-CARMEN of distal RCA and POBA-ostium of posterolateral branch for stent jailing; PCI-CARMEN to RCA and PDA 02/20; PCI-CARMEN to ISR-RCA 04/21/2015 Paroxysmal atrial fibrillation (Chronic) Non-STEMI (non-ST elevated myocardial infarction) (Chronic) HLD (hyperlipidemia) (Chronic) Medical History: Medical History (Last Reviewed 09/29/18 @ 15:28 by Laura Narayan) Abdominal aortic aneurysm (AAA) (Acute) I71.4 Claudication in peripheral vascular disease (Chronic) I73.9 Nicotine dependence (Chronic) F17.200 Essential (primary) hypertension (Chronic) I10 Atherosclerotic peripheral vascular disease (Chronic) I70.209 Atherosclerotic heart disease of [place] coronary artery without angina pectoris (Chronic) I25.10 [id number] LCx and OM 03/20/99; PCI-CARMEN of distal RCA and POBA-ostium of posterolateral branch for stent jailing; PCI-CARMEN to RCA and PDA 02/20; PCI-CARMEN to ISR-RCA 04/21/2015 Paroxysmal atrial fibrillation (Chronic) I48.0 Non-STEMI (non-ST elevated myocardial infarction) (Chronic) I21.4 HLD (hyperlipidemia) (Chronic) E78.5 Anxiety and depression F41.8 Emphysema of lung J43.9 IBS (irritable bowel syndrome) BELLE (obstructive sleep apnea) Supposed to be on BiPAP Obesity E66.9 Angina pectoris (Resolved) I20.9 Atrial fibrillation with RVR (Resolved) I48.91 Paroxsymal History of hysterectomy Z90.710 Hypokalemia (Resolved) E87.6 Dyspnea on exertion (Inactive) R06.09 Wheezing (Inactive) R06.2 Allergies No Known Allergies Allergy (Verified 03/17/19 14:00) Home Medications: Ambulatory Orders Medication Instructions Recorded Amitriptyline HCl [Elavil] 75 mg PO QHS 11/25/13 Citalopram [Celexa] 40 mg PO DAILY 11/25/13 Multivitamins,Therapeutic 1 tab PO DAILY 11/25/13 [Multivitamin] Pramipexole Di-HCl [Mirapex] 1 mg PO QHS 11/25/13 Melatonin 3 mg PO QHS PRN 04/25/17 atorvastatin 40 mg tablet 40 mg PO QDAY 05/20/17 nitroglycerin 0.4 mg sublingual 0.4 mg SUBLINGUAL Q5M PRN #25 tab 05/20/17 tablet ranitidine HCl 150 mg tablet 150 mg PO DAILY 90 Days #180 08/12/17 vitamin E (dl, acetate) 400 unit 400 unit PO QDAY 08/12/17 capsule clopidogrel 75 mg tablet 75 mg PO DAILY #90 tab 11/25/17 ascorbic acid (vitamin C) 500 mg 500 mg PO DAILY cap 06/15/18 capsule cholecalciferol (vitamin D3) 1,000 1,000 unit PO DAILY 06/15/18 unit capsule lidocaine 5 % topical patch 1 patch TOPICAL DAILY 06/15/18 albuterol sulfate 90 mcg/actuation 1 - 2 puff INHALATION Q4H PRN PRN 06/16/18 aerosol inhaler #1 inhaler rivaroxaban 20 mg tablet 20 mg PO DAILY #90 tab 11/13/18 amlodipine 10 mg tablet 10 mg PO DAILY #90 tab 11/18/18 isosorbide mononitrate 60 mg 60 mg PO BID #180 tab 11/18/18 tablet,extended release 24 hr lisinopril 40 mg tablet 40 mg PO BID #180 tab 11/18/18 amiodarone 200 mg tablet 200 mg PO DAILY #90 tab 11/26/18 metoprolol tartrate 50 mg tablet 100 mg PO BID #180 tab 01/20/19 Acetaminophen [Tylenol Extra 500 mg PO Q4H PRN PRN #20 tab 01/31/19 Strength] Surgical History: Surgical History (Last Reviewed 09/29/18 @ 15:28 by Laura Narayan) History of coronary artery stent placement (Resolved) Onset Date: 04/21/15 Z95.5 [id number] LCx and OM 03/20/99; PCI-CARMEN of distal RCA and POBA-ostium of posterolateral branch for stent jailing; PCI-CARMEN to RCA and PDA 02/20; PCI-CARMEN to ISR-RCA 04/21/2015 History of bilateral leg stents History of bunionectomy of right great toe Z98.890 History of colonoscopy Onset Date: ~06/2018 Z98.890 History of left heart catheterization Z98.890 03/20/99, 07/31/99,12/21/02, 06/2003, 02/2007, 12/2010, 04/20/15 History of tonsillectomy Z90.89 Hx of APLL Right X2-01/05/15, 11/26/13 Left X2- 02/15/15, 09/23/2016 Hx of hysterectomy Z90.710 Status post left foot surgery Z98.890 Surgical History: - - LE intervention for PAD per Dr. Gar, cardiac catheterizations w/ total PCI x 7, Lower back injections, DIOMEDES, T+A, R foot surgery. 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 DIRECTOR history Lives: Alone Smoking Status: Current every day smoker Tobacco Use: Cigarettes Alcohol: None Drugs: None - *Family History Maternal Family History: Family History (Last Reviewed 09/29/18 @ 15:28 by Laura Narayan) Father Heart disease Hypertension Seizures Sister CVA (cerebral vascular accident) Hypertension Other Family history of hypertension History Items: Diabetes, High Cholesterol, Heart Disease, Hypertension, Stroke Paternal Family History: Family History (Last Reviewed 09/29/18 @ 15:28 by Laura Narayan) Father Heart disease Hypertension Seizures Sister CVA (cerebral vascular accident) Hypertension Other Family history of hypertension History Items: Diabetes, High Cholesterol, Heart Disease, Hypertension, Stroke Review of Systems Constitutional: Denies: Chills, Fever, Weight Change HEENT: Denies: Head Aches, Sinus Congestion, Sinus Drainage Cardiovascular: Reports: Chest Pain, Edema, Light Headedness, Orthopnea, Paroxysmal Noc. Dyspnea. Denies: Palpitations Respiratory: Reports: Shortness of Breath, Shortness of breath at rest, Shortness of breath upon exertion. Denies: Cough, Pleuritic Pain, Sputum production Gastrointestinal: Denies: Abdominal Pain, Nausea, Vomiting Genitourinary: Denies: Dysuria Musculoskeletal: Denies: Joint Pain, Joint Tenderness Skin: Denies: Rash, Wounds Neurological: Denies: Numbness, Tingling, Focal weakness Psychiatric: Denies: Anxiety, Depression, Homicidal Ideations, Suicidal Ideations Hematologic/ Lymphatic: Denies: Easy Bruising, Easy Bleeding VTE Information - Inpt Only VTE Present on Admission: No VTE Mechan Device Prophylaxis: None VTE Pharm Prophylaxis ordered?: Yes Patient Problems: Active and Suspected Problems (Last Reviewed 09/29/18 @ 15:28 by Laura Narayan) Unstable angina pectoris due to coronary arteriosclerosis (Acute) Acute congestive heart failure (Acute) Atrial fibrillation (Acute) Chest pain (Acute) - Physical Exam Vitals/I&O's: Vital Signs Temp Pulse Resp BP Pulse Ox 98.3 F 110 H 20 H 137/92 H 94 03/17/19 14:00 03/17/19 15:12 03/17/19 15:12 03/17/19 15:12 03/17/19 15:12 Oxygen Flow Rate (L/min) 2 Oxygen Delivery Method Nasal Cannula Weight: 155 lb Body Mass Index (BMI) 28.3 General: Alert, Oriented x3, Cooperative HEENT: Atraumatic, PERRLA, EOMI, Normocephalic Neck: Supple, No JVD, Negative Carotid Bruits Lungs: Clear to auscultation, Normal air movement Cardiovascular: No murmurs, Irregular Rate, Tachycardic Abdomen: Bowel Sounds Present, Soft, Non Tender Extremities: Capillary Refill Less than 3 Seconds, Edema - LLE 2+ pitting edema Skin: No rashes, No breakdown Musculoskeletal: No Tenderness to Palpation of Joints or Extremities Neurological: Cranial nerves II-XII grossly intact Psych/Mental Status: Normal Affect, Appropriate, Alert and oriented to time, place, person, mood and affect Laboratory Results 03/17/19 14:30: WBC 7.9, RBC 3.92 L, Hgb 11.2 L, Hct 34.5 L, MCV 88.0, MCH 28.6, MCHC 32.5, RDW Std Deviation 44.4 H, RDW Coeff of Natalie 14.0, Plt Count 192, MPV 10.9, Immature Gran % (Auto) 0.400, Neut % (Auto) 79.8 H, Lymph % (Auto) 12.1 L, [place] % (Auto) 5.9, Eos % (Auto) 1.5, Baso % (Auto) 0.3, Absolute Neuts (auto) 6.3, Absolute Lymphs (auto) 0.95, Nucleated RBC % 0 03/17/19 14:30: Sodium 142, Potassium 3.7, Chloride 111 H, Carbon Dioxide 24.0, Anion Gap 7, BUN 15, Creatinine 0.80, Estim Creat Clear Calc 51.75, Est GFR (MDRD) Af Amer 91, Est GFR (MDRD) Non-Af 75, BUN/Creatinine Ratio 18.7, Glucose 112 H, Calcium 8.7, Troponin I < 0.015 Assessment/Plan All Active Problems (Last Reviewed 09/29/18 @ 15:28 by Laura Narayan) Unstable angina pectoris due to coronary arteriosclerosis (Acute) Acute congestive heart failure (Acute) Atrial fibrillation (Acute) Chest pain (Acute) Preop cardiovascular exam (Acute) History of coronary artery stent placement (Resolved 04/21/15) Angina pectoris (Resolved) Atrial fibrillation with RVR (Resolved) Hypokalemia (Resolved) 1. Unstable angina - Vice like chest pain worse with exertion especially stairs but consistently occurs with any light exertion. trop neg. EKG with incomplete LBBB, nonspecific ST changes. Obtain prior EKG. 09/2018 negative stress test. Serial EKGs, cycle troponin, consult cardiology, prn nitro. Check BNP and Echo. 2. Acute diastolic CHF exacerbation - no prior hx CHF. EF 69% during last stress test. increased PND and orthopnea, LLE pitting edema, CXR with CHF, interstitial edema, trace pleural effusions. BNP pending. Obtain echo. Check TSH. Start IV lasix. Fluid/Na restrict, daily weights, trend I/O. 3. Long QT - QTc 526 on initial EKG, need to obtain prior EKGs. check serial EKGs, avoid qt prolonging agents. She is on amiodarone 4. pAfib - 12/2018 holter monitor with tachycardia and afib. Pt on xarelto, metoprolol. Mildly tachy here. Check Mag, TSH. 5. CAD - 7 stents prior. Continues to smoke. Continue plavix, statin, metoprolol, lisinopril, imdur. 6. Nicotine abuse - as above still smokes, suspected underlying COPD - prn aerosols. Patch if desired. 7. hx ovarian cancer in remission since 2011 8. hx AAA - CT abd 01/2019 with no significant change, aneurysm 4.4 cmx 4.4 cm. 9. HTN - stable 10. HLD - statin 11. PAD - prior stents, pt of Dr. Gar. 12. Anx/Dep - citalopram DVT ppx: xarelto This patient was seen by Werner Prince PA-C under the supervision of Dr. Puri.
--- NOTE | 2019-03-17 15:55 | EKG12_ITS ---
Test Reason : EKG CHANGE Blood Pressure : / mmHG Vent. Rate : 066 BPM Atrial Rate : 066 BPM P-R Int : 184 ms QRS Dur : 110 ms QT Int : 464 ms P-R-T Axes : 060 025 090 degrees QTc Int : 486 ms Normal sinus rhythm Nonspecific ST and T wave abnormality Prolonged QT Abnormal ECG When compared with ECG of 18-MAR-2019 09:29, MANUAL COMPARISON REQUIRED, DATA IS UNCONFIRMED Confirmed by HUYEN JEAN-BAPTISTE, TAYLOR ([id number]), map editor MAREN GRIMES ([id number]) on 03/23/2019 9:14:05 AM Referred By: Fernanda Puri Confirmed By:TAYLOR MATSON MD
--- NOTE | 2019-03-17 15:55 | ECHOD_ITS ---
Reason For Study: CHF Procedure This was a 2D Doppler, Color Flow transthoracic echocardiogram. Exam performed portable in ICU/CCU. Left Ventricle Normal LV size. Left ventricular systolic function is lower limits of normal. The estimated ejection fraction is 50 %. Unable to assess diastolic dysfunction due to arrhythmia. Mid-Inferior: Mildly hypokinetic. Infero-Basal: Hypokinetic. Basal inferoseptal: Hypokinetic. Right Ventricle Normal RV size. Normal systolic function. Atria The left atrium is moderately enlarged. Normal right atrium. Mitral Valve Mild focal mitral valve calcification of the posterior leaflet. Moderate (2+) eccentric mitral valve insufficiency. Tricuspid Valve Normal tricuspid valve. Mild tricuspid valve insufficiency. Pulmonary artery systolic pressure is 32 mmHg. Aortic Valve Mild focal aortic valve calcification. Trisinus/trileaflet aortic valve. Mild (1+) eccentric aortic valve insufficiency. Pulmonic Valve Normal pulmonic valve. MMode/2D Measurements & Calculations LVIDd: 5.3 cm IVSd: 1.0 cm LVOT diam: 2.0 cm LVIDs: 4.1 cm LVPWd: 1.0 cm LVOT area: 3.3 cm2 RVDd: 3.5 cm FS: 22.6 % Ao root diam: 3.3 cm LAV(MOD-bp): 109.9 ml LVAd ap4: 34.1 cm2 LAV(MOD-bp) Indexed: 62.5 ml/m2 EDV(MOD-sp4): 123.9 ml LAV(MOD-sp2): 90.2 ml EDV(sp4-el): 131.4 ml LAV(MOD-sp4): 133.9 ml LVAs ap4: 26.5 cm2 ESV(MOD-sp4): 86.4 ml ESV(sp4-el): 87.2 ml EF(MOD-sp4): 30.2 % EF(sp4-el): 33.6 % SV(MOD-sp4): 37.5 ml SV(sp4-el): 44.2 ml LA A4 area: 33.1 cm2 LA dimension(2D): 5.1 cm RA A4 area: 14.6 cm2 Doppler Measurements & Calculations MV V2 max: 158.0 cm/sec Ao V2 max: 108.2 cm/sec AI max isaac: 447.1 cm/sec MV max P.0 mmHg Ao max P.7 mmHg AI max P.0 mmHg MV V2 mean: 104.2 cm/sec ADAN(V,D): 2.9 cm2 AI dec slope: 466.3 cm/sec2 MV mean P.9 mmHg AI P1/2t: 280.8 msec MV V2 VTI: 25.8 cm LV V1 max: 95.5 cm/sec PA V2 max: 86.9 cm/sec PI end-d isaac: 120.3 cm/sec LV V1 max P.7 mmHg TR max isaac: 262.0 cm/sec TR max P.4 mmHg Interpretation Summary Normal LV size. Left ventricular systolic function is lower limits of normal. The estimated ejection fraction is 50 %. Unable to assess diastolic dysfunction due to arrhythmia. Moderate (2+) eccentric mitral valve insufficiency. The left atrium is moderately enlarged. Mild (1+) eccentric aortic valve insufficiency. Compared to the previous the wall motion abnormality is new Ordering Physician: Fernanda Puri Referring Physician: CATHI FONTANA Performed By: Sudha Ivan, HORACE, RVT
[2019-03-17 17:05] LABS: Magnesium 1.9 mg/dL (1.6-2.6); Thyroid Stim Hormone (TSH) 2.09 uIU/mL (0.358-3.74)
[2019-03-17] MEDS: Furosemide 40 MG/4 ML Vial IV (17:08)
[2019-03-17] MEDS: Morphine 2 MG/ML Syringe IV (17:24)
[2019-03-17] MEDS: Aspirin 325 MG Tablet PO (17:47)
[2019-03-17 17:51] LABS: Partial Thromboplast Time 29.2 Seconds (24.1-36.2)
[2019-03-17] MEDS: MELATONIN 3 MG TABLET PO (21:58)
[2019-03-17] MEDS: Isosorbide Mononitrate 60 MG Tablet PO (21:59)
[2019-03-17] MEDS: Atorvastatin Calcium 40 MG Tablet PO (22:00)
[2019-03-17] MEDS: Amitriptyline 25 MG Tablet 75 MG PO (22:00)
[2019-03-17] MEDS: Lisinopril 40 MG Tablet PO (22:00)
[2019-03-17] MEDS: Pramipexole Di-HCl 1 MG Tablet PO (22:01)
[2019-03-17] MEDS: Metoprolol Tartrate 100 MG Tablet PO (22:12)
[2019-03-18] VITALS (25 sets, daily range): BP systolic 109–147; BP diastolic 66–88; PULSE 91–116; RESP 15–30; TEMP 35.9–36.8; O2SAT 89–99; BMI 29.9
[2019-03-18 05:12] LABS: Absolute Lymphocyte Count 1.51 X10^3/uL (0.83-4.51); Absolute Neutrophil Count 5.4 X10^3/uL (2.0-7.7); Basophil# 0.02 X10^3/uL; Basophil% 0.3 % (0-1); Eosinophil# 0.13 X10^3/uL; Eosinophils% 1.7 % (0-5); Hematocrit 35.1 % (37-47); Hemoglobin 11.6 g/dL (12.0-15.0); Lymphocyte # 1.51 X10^3/ul (4.0); Lymphocyte % 19.9 % (19-41); Mean Corpuscular Hgb 29.3 pg (27.0-32.0); Mean Corpuscular Volume 88.6 fL (81-99); Monocyte# 0.46 X10^3/uL; Monocyte% 6.1 % (0-10); NRBC Flagged by Analyzer 0 % (0-5); Neutrophil # 5.44 X10^3/uL (2.7-7.7); Neutrophil % 71.7 % (47-70); Platelet Count 206 K/mm3 (150-450); RBC Distribution Width CV 14.2 % (11.6-14.6); RBC Distribution Width SD 45.5 fl (35.1-43.9); Red Blood Count 3.96 M/mm3 (4.2-5.4); White Blood Count 7.6 K/mm3 (4.4-11.0)
[2019-03-18 05:23] LABS: International Normalized Ratio 1.4; Prothrombin Time (Protime)PT. 17.2 SECONDS (11.7-14.9)
[2019-03-18 05:30] LABS: Anion Gap 6 (5-15); BUN 21 mg/dL (7-18); BUN/Creat Ratio 23.3 RATIO (10-20); Chloride 109 mmol/L (98-107); Cholesterol 108 mg/dL (200); EST Glomerular Filtration Rate 66 mL/min (>60); Est Glom Filt Rate - Afr Amer 79 mL/min (>60); Glucose 102 mg/dL (74-106); High Density Lipoprotein 40 mg/dL; Potassium 3.6 mmol/L (3.5-5.1); Sodium Level 143 mmol/L (136-145); Triglycerides 111 mg/dL; Very Low Density Lipoprotein 22 mg/dL (5-40)
--- NOTE | 2019-03-18 05:55 | EKG12_ITS ---
Test Reason : AM EKG Blood Pressure : / mmHG Vent. Rate : 107 BPM Atrial Rate : 234 BPM P-R Int : 000 ms QRS Dur : 108 ms QT Int : 422 ms P-R-T Axes : 000 018 -71 degrees QTc Int : 563 ms Atrial fibrillation with premature ventricular or aberrantly conducted complexes Incomplete left bundle branch block Nonspecific ST and T wave abnormality Prolonged QT Abnormal ECG When compared with ECG of 17-MAR-2019 16:57, MANUAL COMPARISON REQUIRED, DATA IS UNCONFIRMED Confirmed by HUYEN JEAN-BAPTISTE, TAYLOR ([id number]), city editor MAREN GRIMES ([id number]) on 03/23/2019 9:09:02 AM Referred By: Fernanda Puri Confirmed By:TAYLOR MATSON MD
[2019-03-18] MEDS: Amiodarone 200 MG Tablet PO (06:12)
[2019-03-18] MEDS: amLODIPine 10 MG Tablet PO (06:12)
[2019-03-18] MEDS: Lisinopril 40 MG Tablet PO ×2 (06:12→21:38)
[2019-03-18] MEDS: Aspirin 81 MG TAB.CHEW PO (06:12)
[2019-03-18] MEDS: Metoprolol Tartrate 100 MG Tablet PO ×2 (06:12→21:38)
[2019-03-18] MEDS: Clopidogrel Bisulfate 75 MG Tablet PO (06:12)
[2019-03-18] MEDS: Isosorbide Mononitrate 60 MG Tablet PO ×2 (06:13→21:37)
[2019-03-18] MEDS: 0.9% Normal Saline 1,000 ML 15 ML IV (06:58)
[2019-03-18] MEDS: 0.9% Saline Lock 10 ML Syringe IV ×2 (06:58→13:19)
--- NOTE | 2019-03-18 07:55 | CON.PCM_ITS ---
Reason for Consult Date of Consultation: 03/18/19 Reason for Consultation: Chest discomfort History of Present Illness: The patient is a 69 year old F with a history of hypertension, paroxysmal atrial fibrillation, peripheral vascular disease, coronary artery disease status post previous angioplasty and stenting of the right coronary artery in multiple distributions as well as the circumflex artery. She presented to the emergency room with chest discomfort described as a heaviness with some palpitations. She is also had some shortness of breath. She had undergone a stress test in September of this year which demonstrated no obvious ischemia. She did have her metoprolol increased later this year because of increased palpitations. She had remotely undergone angioplasty of the mid right coronary artery as well as the distal right coronary artery. In 2015 she underwent a cardiac catheterization which demonstrated in-stent restenosis of the proximal right coronary artery for which she underwent angioplasty and restenting. [] Past Medical History Allergies/Adverse Reactions: Allergies No Known Allergies Allergy (Verified 03/17/19 14:00) Home Medications: Ambulatory Orders Medication Instructions Recorded Amitriptyline HCl [Elavil] 75 mg PO QHS 11/25/13 Citalopram [Celexa] 40 mg PO DAILY 11/25/13 Multivitamins,Therapeutic 1 tab PO DAILY 11/25/13 [Multivitamin] Pramipexole Di-HCl [Mirapex] 1 mg PO QHS 11/25/13 Melatonin 3 mg PO QHS PRN 04/25/17 atorvastatin 40 mg tablet 40 mg PO BID 05/20/17 nitroglycerin 0.4 mg sublingual 0.4 mg SUBLINGUAL Q5M PRN #25 tab 05/20/17 tablet ranitidine HCl 150 mg tablet 150 mg PO DAILY 90 Days #180 08/12/17 vitamin E (dl, acetate) 400 unit 400 unit PO QDAY 08/12/17 capsule clopidogrel 75 mg tablet 75 mg PO DAILY #90 tab 11/25/17 ascorbic acid (vitamin C) 500 mg 500 mg PO DAILY cap 06/15/18 capsule cholecalciferol (vitamin D3) 1,000 1,000 unit PO DAILY 06/15/18 unit capsule lidocaine 5 % topical patch 1 patch TOPICAL DAILY 06/15/18 albuterol sulfate 90 mcg/actuation 1 - 2 puff INHALATION Q4H PRN PRN 06/16/18 aerosol inhaler #1 inhaler rivaroxaban 20 mg tablet 20 mg PO DAILY #90 tab 11/13/18 amlodipine 10 mg tablet 10 mg PO DAILY #90 tab 11/18/18 isosorbide mononitrate 60 mg 60 mg PO BID #180 tab 11/18/18 tablet,extended release 24 hr lisinopril 40 mg tablet 40 mg PO BID #180 tab 11/18/18 amiodarone 200 mg tablet 200 mg PO DAILY #90 tab 11/26/18 metoprolol tartrate 50 mg tablet 100 mg PO BID #180 tab 01/20/19 Acetaminophen [Tylenol Extra 500 mg PO Q4H PRN PRN #20 tab 01/31/19 Strength] Past Medical History (Chronic Problems): Chronic Problems (Last Reviewed 09/29/18 @ 15:28 by Laura Narayan) PAD (peripheral artery disease) (Chronic) Abdominal aortic aneurysm (AAA) (Chronic) Claudication in peripheral vascular disease (Chronic) Nicotine dependence (Chronic) Essential (primary) hypertension (Chronic) Atherosclerotic peripheral vascular disease (Chronic) Atherosclerotic heart disease of [place] coronary artery without angina pectoris (Chronic) DAO-ZIW-lwioek LCx and OM 03/20/99; PCI-CARMEN of distal RCA and POBA-ostium of posterolateral branch for stent jailing; PCI-CARMEN to RCA and PDA 02/20; PCI- CARMEN to ISR-RCA 04/21/2015 Paroxysmal atrial fibrillation (Chronic) Non-STEMI (non-ST elevated myocardial infarction) (Chronic) HLD (hyperlipidemia) (Chronic) Surgical History: - - LE intervention for PAD per Dr. Gar, cardiac catheterizations w/ total PCI x 7, Lower back injections, DIOMEDES, T+A, R foot s urgery. 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 history - *Family History Maternal Family History: Family History (Last Reviewed 09/29/18 @ 15:28 by Laura Narayan) Father Heart disease Hypertension Seizures Sister CVA (cerebral vascular accident) Hypertension Other Family history of hypertension History Items: Diabetes, High Cholesterol, Heart Disease, Hypertension, Stroke Paternal Family History: Family History (Last Reviewed 09/29/18 @ 15:28 by Laura Narayan) Father Heart disease Hypertension Seizures Sister CVA (cerebral vascular accident) Hypertension Other Family history of hypertension History Items: Diabetes, High Cholesterol, Heart Disease, Hypertension, Stroke Lives: Alone Smoking Status: Current every day smoker Tobacco Use: Cigarettes Alcohol: None Drugs: None Review of Systems - Review of Systems General: Denies: Fever, Night Sweats, Fatigue HEENT: Denies: Vision Change Cardiovascular: Reports: Chest Discomfort at Rest, Chest Discomfort with Exertion. Denies: Chest Discomfort, Shortness of Breath, Orthopnea, PND, Peripheral Edema, Palpitations, Lightheadedness, Dizziness, Near Syncope, Syncope Respiratory: Denies: Cough, Sputum Production, Hemoptysis Gastrointestinal: Denies: Hematemesis, Hematochezia, Melena Genitourinary: Denies: Dysuria, Hematuria Skin: Denies: Rash Neurological: Denies: Dizziness Psychiatric: Denies: Anxiety Endocrine: Denies: Heat Intolerance Hematologic/ Lymphatic: Denies: Lymph Node Enlargement Subjectve: Pleasant lady in no distress Objective: Vital Signs Temp Pulse Resp BP Pulse Ox 97.7 F L 109 H 18 133/73 H 96 03/18/19 06:10 03/18/19 06:50 03/18/19 06:10 03/18/19 06:12 03/18/19 06:10 Oxygen Flow Rate (L/min) 2 Oxygen Delivery Method Nasal Cannula Weight: 164 lb 7.437 oz Body Mass Index (BMI) 30.5 Intake and Output for Last 24 Hours 03/16/19 03/17/19 03/18/19 23:59 23:59 23:59 Intake Total 360 / 360 Output Total 1825 / 1825 Balance -1465 / -1465 General: Awake, Alert, Oriented x 3 HEENT: PERRL, EOMI, Sclera Non Icteric Neck: Supple, Good ROM, No Lymph Node Enlargement Lungs: Clear to auscultation Cardiovascular: Irregular Rhythm, Normal S1, Normal S2, No Murmurs, No Rubs, No Gallops Vascular: No Carotid Bruits, Normal Femoral Pulses, Normal Radial Pulses, Normal Dorsalis Pedal Pulse, Normal Posterior Tibial Pulses Abdomen: Bowel Sounds Present, Soft, Non Tender, No HSM, No Organomegaly Extremities: No Cyanosis, No Clubbing, No edema Musculoskeletal: No Erythema Skin: No Rashes Lymphatic: No Lymph Node Enlargement Neurological: No Focal Motor or Sensory Deficit 03/17/19 14:30: WBC 7.9, RBC 3.92 L, Hgb 11.2 L, Hct 34.5 L, MCV 88.0, MCH 28.6, MCHC 32.5, Plt Count 192, MPV 10.9, Immature Gran % (Auto) 0.400, Neut % (Auto) 79.8 H, Lymph % (Auto) 12.1 L, Spink % (Auto) 5.9, Eos % (Auto) 1.5, Baso % (Auto) 0.3, Absolute Neuts (auto) 6.3, Nucleated RBC % 0 03/17/19 14:30: Sodium 142, Potassium 3.7, Chloride 111 H, Carbon Dioxide 24.0, Anion Gap 7, BUN 15, Creatinine 0.80, Est GFR (MDRD) Af Amer 91, Est GFR (MDRD) Non-Af 75, BUN/Creatinine Ratio 18.7, Glucose 112 H, Calcium 8.7, Troponin I < 0.015 03/17/19 14:30: Magnesium 1.9 03/17/19 14:30: B-Natriuretic Peptide 680.0 H 03/17/19 14:30: APTT 29.2 03/17/19 17:34: Troponin I < 0.015 03/17/19 20:29: Troponin I < 0.015 03/18/19 04:55: Sodium 143, Potassium 3.6, Chloride 109 H, Carbon Dioxide 28.0, Anion Gap 6, BUN 21 H, Creatinine 0.90, Est GFR (MDRD) Af Amer 79, Est GFR (MDRD) Non-Af 66, BUN/Creatinine Ratio 23.3 H, Glucose 102, Calcium 8.0 L, Triglycerides 111, Cholesterol 108, LDL Cholesterol 46, VLDL Cholesterol 22, HDL Cholesterol 40 03/18/19 04:55: WBC 7.6, RBC 3.96 L, Hgb 11.6 L, Hct 35.1 L, MCV 88.6, MCH 29.3, MCHC 33.0, Plt Count 206, MPV 11.0, Immature Gran % (Auto) 0.300, Neut % (Auto) 71.7 H, Lymph % (Auto) 19.9, Spink % (Auto) 6.1, Eos % (Auto) 1.7, Baso % (Auto) 0.3, Absolute Neuts (auto) 5.4, Nucleated RBC % 0 03/18/19 04:55: PT 17.2 H, INR 1.4 Rhythm: EKG: Atrial fibrillation with a rapid ventricular response rate ECHO: Stress Test: Cardiac Cath: PCI: CT Surgery: Holter monitor: EPS: PPM: CXR: Chest CT Scan: Assessment/Plan 1. Chest discomfort * Patient presents with recurrent chest discomfort. The above is suggestive of her previous angina. She has had previous angioplasty and stenting as well as a stress test in September 2018 which did not demonstrate any obvious ischemia. The plan would be for her to undergo repeat cardiac catheterization which she did this morning. It demonstrated the following: Normal left main coronary artery Left anterior descending artery with mild disease First diagonal vessel with 30% proximal ostial stenosis Second diagonal vessel with ostial 50% stenosis Ramus intermedius with mild disease Left circumflex artery which is totally occluded Dominant large right coronary artery with previous stenting involving the proximal vessel which is patent, the mid vessel which is patent, the distal PDA which is also patent. There is an area between the mid and distal PDA with an 80% stenotic lesion. The origin of the posterolateral branch also has a probable 70 to 80% stenosis with poststenotic aneurysmal area. Left ventricular function appears to be fair with an estimated EF of 50%. Postprocedure will resume aspirin, clopidogrel, and Xarelto. 2. Hypertension * Patient's blood pressure appears to be under good control and I would not recommend we make any major changes. * 3. Hyperlipidemia * Continue with aggressive risk factor modification. * 4. Peripheral vascular disease * Patient has known peripheral vascular disease. Unfortunately she continues to use tobacco products. She has been admonished about the above. * 5. Atrial fibrillation * Patient has atrial fibrillation with a controlled ventricular response rate. * Will resume anticoagulation with Xarelto after groin is healed * Continue beta-declan for rate control. * * Thank you for allowing me to participate in the care of your patient. Please don't hesitate to call if any issues arise
--- NOTE | 2019-03-18 07:57 | NURSING ---
Report called to EZEKIEL Langston in ICU
--- NOTE | 2019-03-18 08:13 | CL.D_ITS ---
Patient Name: CURLY MORALES Study Date: 03/18/2019 Performing: Jaime Treviño MD Ht: 61.81 inches 157 cm : 1950 Wt: 165.35 lbs 75 kg Age: 69 Gender: female BSA: 1.76 PROCEDURE(S) PERFORMED [id number]/LV [id number] W OR WO PTCA, SINGLE CORONARY ARTERY CLINICAL PROFILE AND INDICATIONS Indications: Worsening Angina Heart Failure: None Stress/Imaging Stress/Image Study Performed: No CAD Presentations: Unstable angina. CONCLUSIONS Coronary artery disease with mild disease noted in the left anterior descending artery, mild ostial d iagonal vessels, severe disease noted in the mid to distal right coronary artery. Previously placed stents in the right coronary artery noted to be patent. RECOMMENDATIONS Referred for immediate PCI DESCRIPTION OF PROCEDURE The patient arrived to the procedure lab. The risks and benefits of the procedure as well as a full d escription of our services here and current unavailability of surgical backup were fully explained to the patient and/or their significant other prior to the catheterization. The Timeout was completed, verifying the correct patient and procedure. The patient's procedural site was prepped and draped in the usual fashion. Local anesthetic was given subcutaneously to right groin region with Lidocaine 2%. Using a modified Seldinger technique, arterial access was obtained via the right femoral artery, a 5 Fr sheath was inserted. Left Coronary Artery selective angiography was performed in multiple views u sing a 5 Fr. JL4 catheter. Right Coronary Artery selective angiography was then performed in multiple views using a 5 Fr. 3DRC (Dk) catheter. Left Ventriculography was performed in KHAN projection using a 5 Fr. Pigtail catheter. LV to AO pullback pressures were then recorded. CORONARY ANGIOGRAPHY DOMINANCE: Right Dominant LEFT HEART ASSESSMENT Left Ventricular Ejection Fraction: by LV Gram 50 % Inferior Mid Hypokinesis - Mild Normal Left Ventricular systolic function Depressed Left Ventricular systolic function LEFT MAIN: Mild calcification LEFT ANTERIOR DESCENDING ARTERY: Mild luminal irregularities less than 30% DIAGONAL 1: Ostial - 40 % Stenosis DIAGONAL 2: Ostial - 50 % Stenosis CIRCUMFLEX ARTERY: Previously placed stent is occluded RIGHT CORONARY ARTERY: There is a proximally placed stent which appears to be patent with mild in-manjula nt stenosis and a mid right coronary artery stent with approximately 30 to 40% in-stent stenosis. Th ere is a stent placed in the posterior descending artery with minimal in-stent stenosis. Between the mid right coronary artery stent in the PDA stent there is an area of narrowing which is stent free o f approximately 80%. The origin of the posterior lateral branch also has a 75% stenotic lesion with a small area of post aneurysmal dilatation. COLLATERAL FLOW: Collateral flow from Left to Left COMPLICATIONS PROCEDURE MEDICATIONS Versed 1 mg IV Versed 1 mg IV Oxygen: 2 L/min via nasal cannula Heparin 6000 unit(s) IV 03/18/2019 07:57:22 IV Fluids: .9 NaCl increased to W/O ml/hr 03/18/2019 07:58:29 SUMMARY OF HEMODYNAMIC DATA Time AIR REST ECG 07:18:05 AO 121/71 (92) SA 07:37:35 AO 129/75 (96) 07:41:03 LV 137/10, 20 07:45:07 LV 137/10, 20 07:45:13 LV 125/12, 23 07:45:49 LVp 125/16, 22 07:45:53 AOp 128/21 (79) 07:45:58 Signed By Jaime Trevioñ MD On 03/18/2019 08:12:50 Jaime Treviño MD
[2019-03-18 08:45] LABS: ACT Activated Clotting Time 153 sec (74-137)
--- NOTE | 2019-03-18 08:53 | CL.I_ITS ---
Patient Name: CURLY MORALES Study Date: 03/18/2019 Performing: Raji Sinha MD Ht: 61.81 inches 157 cm : 1950 Wt: 165.35 lbs 75 kg Age: 69 Gender: female BSA: 1.76 Amended PROCEDURE(S) PERFORMED [id number] W OR WO PTCA, SINGLE CORONARY ARTERY [id number], EACH ADD'L CORONARY ART, SAME MAJOR [id number] W OR WO PTCA, EACH ADD'L ARTERY, SAME MAJOR CLINICAL PROFILE AND CO-MORBIDITIES Indications: Worsening Angina, ACS > 24 hrs, Worsening Angina, Stable Known CAD Heart Failure: Newly Diagnosed: No, NYHA Class: 1, Heart Failure Type: Systolic Stress/Imaging Stress/Image Study Performed: No Stress/Image Study Performed: No Angina Classification Anginal Classification w/in 2 Weeks: CCS III CAD Presentations: Unstable angina. Unstable angina. Other: Dyspnea on exertion Comorbidities/Risk Factors: Current/Recent Smoker (< 1year) Hypertension Dyslipidemia Prior PCI CONCLUSIONS Successful PTCA/CARMEN to proximal PDA with a 2.5 x 24 Promus Synergy, post dilated throughout with a 2. 5 x 8 NC balloon; 85%-->0%, no dissection. Successful PTCA/CARMEN distal RCA with a 3.0 x 16 Promus Synergy, post dilated throughout with a 3.5 x 8 NC Balloon; 75%-->0%, no dissection. Successful PCI with PTCA to the ostial PL branch with a 2.0 x 12 Emerge balloon; 85%--10%, no dissect ion. Manual sheath removal. RECOMMENDATIONS Highly recommend quitting all tobacco products Follow up with primary delivery driver/supervisor Risk factor modification ASA Indefinitley Plavix for at least 12 months Routine post interventional care Refer for Outpatient Cardiac Rehab Manual sheath removal per protocol Follow up with Dr. Treviño Manual sheath removal. F/u with Dr Gar for RLE in stent stenosis and claudication sx. DESCRIPTION OF PROCEDURE The patient arrived to the procedure lab. The risks and benefits of the procedure as well as a full d escription of our services here and current unavailability of surgical backup were fully explained to the patient and/or their significant other prior to the catheterization. The Timeout was completed, verifying the correct patient and procedure. The patient's procedural site was prepped and draped in the usual fashion. Local anesthetic was given subcutaneously to right groin region with Lidocaine 2% Using a modified Seldinger technique,arterial access was obtained via the right femoral artery, a 5Fr sheath was inserted. Left Coronary Artery selective angiography was performed in multiple views usin g a 5 Fr. JL4 catheter. Right Coronary Artery selective angiography was then performed in multiple vi ews using a 5 Fr. 3DRC (Dk) catheter. Left Ventriculography was performed in KHAN projection usi ng a 5 Fr. Pigtail catheter. LV to AO pullback pressures were then recorded.The images were reviewed and options discussed. A decision was then made to proceed with an Intervention, IVUS o r other adjunct procedure. Arterial sheath was exchanged for a 6 Fr x 45cm Sheath. AL 1 Guide catheter was inserted and enga ged into the RCA. BMW Guide wire was advanced to the RPL. BMW (2) Guide wire was advanced to the Righ t PDA. 2.0 x 12 Emerge Balloon catheter was inserted. Balloon catheter was advanced across lesion in the RPL proximal PTCA balloon inflated at 9 atms for 20 secs. PTCA balloon inflated at 10 atms for 10 secs. 2.0 x 12 Emerge Balloon catheter was advanced across lesion in the right posterior descending, proximal. PTCA balloon inflated at 10 atms for 12 secs. PTCA balloon inflated at 8 atms for 8 secs. PTCA balloon inflated at 12 atms for 10 secs. 2.5 x 24 Synergy Drug Eluting stent was advanced across the lesion in the right posterior descending, proximal. Angiogram performed pre stent deployment. 2. 5 x 8 NC Emerge Balloon catheter was inserted post stent. Angiogram performed pre balloon dilatation. Angiogram performed post balloon dilatation. 2.0 x 12 Emerge Balloon catheter was inserted. Balloon catheter was advanced across lesion in the RPL Branch proximal PTCA balloon inflat ed at 10 atms for 25 secs. Angiogram performed post balloon dilatation. 2.0 x [address] was advanced across lesion in the right coronary, distal. PTCA balloon inflated at 12 atms for 6 secs. PTCA balloon inflated at 12 atms for 9 secs. 3.0 x 16 Synergy Drug Eluting stent was advanced a cross the lesion in the right coronary, distal. Angiogram performed pre stent deployment. Angiogram p erformed post stent deployment. 3.5 x 8 NC Emerge Balloon catheter was inserted post stent. Angiogram performed post balloon dilatation. Contrast was injected through the sheath and the Right Iliac and Femoral artery were assessed for possible closure device. The arterial sheath was pulled and manual compression applied until hemostasis is achieved. INTERVENTION INFORMATION LESION SITE: RPL (1st) Lesion Complexity: High/C, lesion at bifurcation: Yes, thrombus present: No, lesion length: 20 mm, cu lprit lesion: Yes, In-stent restenosis: Yes Pre Stenosis: 85 % Pre intervention EVELINA flow: 3 PROCEDURE: Drug Eluting Stent with pre and post dilatation Post Stenosis: 10 % Post intervention EVELINA flow: 3 Lesion Devices: Cruz .014 BMW [place] Straight 190cm Medtronic 6 Fr AL1.0 100cm Guide Catheter Luc Sci EMERGE MR 2.00x12 BALLOON LESION SITE: RT PDA (Proximal) Lesion Complexity: Non-High/Non-C, lesion at bifurcation: Yes, thrombus present: No, lesion length: 1 0 mm, culprit lesion: No Pre Stenosis: 85 % Pre intervention EVELINA flow: 3 PROCEDURE: Balloon Angioplasty Post Stenosis: 0 % Post intervention EVELINA flow: 3 Lesion Devices: Medtronic 6 Fr AL1.0 100cm Guide Catheter Cruz .014 BMW [place] Straight 190cm Luc Sci EMERGE MR 2.00x12 BALLOON Luc Sci Synergy MR CARMEN 2.50x24 Luc Sci NC EMERGE MR 2.50x08 BALLOON LESION SITE: RCA (Distal) Lesion Complexity: Non-High/Non-C, lesion at bifurcation: No, thrombus present: No, lesion length: 16 mm, culprit lesion: No, In-stent restenosis: Yes Pre Stenosis: 75 % Pre intervention EVELINA flow: 3 PROCEDURE: Drug Eluting Stent with pre and post dilatation 0 % Post intervention EVELINA flow: 3 Lesion Devices: Medtronic 6 Fr AL1.0 100cm Guide Catheter Cruz .014 BMW [place] Straight 190cm Luc Sci EMERGE MR 2.00x12 BALLOON Luc Sci Synergy MR CARMEN 3.00x16 Luc Sci NC EMERGE MR 3.50x08 BALLOON COMPLICATIONS No Complications PROCEDURE MEDICATIONS Versed 1 mg IV Versed 1 mg IV Oxygen: 2 L/min via nasal cannula Oxygen: 4 L/min via nasal cannula Heparin 6000 unit(s) IV 03/18/2019 07:57:22 IV Fluids: .9 NaCl increased to W/O ml/hr 03/18/2019 07:58:29 SUMMARY OF HEMODYNAMIC DATA Time AIR REST ECG 07:18:05 AO 121/71 (92) SA 07:37:35 AO 129/75 (96) 07:41:03 LV 137/10, 20 07:45:07 LV 137/10, 20 07:45:13 LV 125/12, 23 07:45:49 LVp 125/16, 22 07:45:53 AOp 128/21 (79) 07:45:58 Signed By Raji Sinha MD On 03/24/2019 10:16:46 AM Signed By Raji Sinha MD On 03/18/2019 08:52:33 Raji Sinha MD
--- NOTE | 2019-03-18 09:16 | EKG12_ITS ---
Test Reason : POST CATH Blood Pressure : / mmHG Vent. Rate : 112 BPM Atrial Rate : 113 BPM P-R Int : 000 ms QRS Dur : 114 ms QT Int : 370 ms P-R-T Axes : 000 019 103 degrees QTc Int : 505 ms Atrial fibrillation Septal infarct , age undetermined Abnormal ECG When compared with ECG of 18-MAR-2019 06:16, MANUAL COMPARISON REQUIRED, DATA IS UNCONFIRMED Confirmed by HUYEN JEAN-BAPTISTE, TAYLOR ([id number]), order editor MAREN GRIMES ([id number]) on 03/23/2019 9:14:21 AM Referred By: Fernanda Puri Confirmed By:TAYLOR MATSON MD
[2019-03-18] MEDS: 0.9% Normal Saline 1,000 ML 150 ML IV (09:27)
[2019-03-18] MEDS: LORazepam 1 MG Tablet PO (09:44)
--- NOTE | 2019-03-18 10:00 | EKG12_ITS ---
Test Reason : CP Blood Pressure : / mmHG Vent. Rate : 103 BPM Atrial Rate : 125 BPM P-R Int : 000 ms QRS Dur : 108 ms QT Int : 402 ms P-R-T Axes : 000 018 -17 degrees QTc Int : 526 ms Atrial fibrillation Nonspecific ST and T wave abnormality Prolonged QT Abnormal ECG Confirmed by HUYEN JEAN-BAPTISTE, TAYLOR ([id number]), editor city MAREN GRIMES ([id number]) on 03/23/2019 9:21:17 AM Referred By: Fernanda Puri Confirmed By:TAYLOR MATSON MD
--- NOTE | 2019-03-18 11:12 | CRPHASE1 ---
Patient Communication Former Patient:: Phase II PHII Cardiac Rehab Discussed with Patient:: Yes Guide to Cardiac Rehab Given to Patient:: Yes Cardiac Rehab Facility Choice List Given to Patient:: Yes - PT ATTEND [facility] CR IN 2016 Choice Program [facility] CR PHII:: Communication Given to CR, Refer to [facility] Risk Factors/Lifestyle Smoking Status: Current every day smoker Hx Hypertension: Yes Hx Diabetes Mellitus Type 1: No Hx Metabolic Disorders: Yes Hx Dyslipidemia: Yes Hx Obesity: Yes Height: 5 ft 2 in Weight:: 164 lb BMI: 29.9 Post-Menopausal: Yes Family History: Family History (Last Reviewed 09/29/18 @ 15:28 by Laura Narayan) Father Heart disease Hypertension Seizures Sister CVA (cerebral vascular accident) Hypertension Other Family history of hypertension Laboratory Values: Cardiac Rehab Phase I Labs Triglycerides 111 mg/dL (-199) 03/18/19 04:55 Cholesterol 108 mg/dL (200) 03/18/19 04:55 LDL Cholesterol 46 mg/dL (0-130) 03/18/19 04:55 HDL Cholesterol 40 mg/dL (40-) 03/18/19 04:55 Phase I Education Given On:: [place], Nutrition, Antiplatelet medication, CHF, Smoking cessation, Diabetes - Type I, Diabetes - Type II - BOOKLET GIVEN WELL PHONE # TO CR IF HAS ANY QUESTIONS Issues Affecting Care:: None Knowledge of Condition:: Yes - PREVIOUS STENTS ADN CR CLASSES Hospital Course Pain Description: Pressure - PRESSURE AND DYSPNEA Medical/Surgical History Angina:: Yes CAD:: Yes Pulmonary:: Yes COPD:: Yes Asthma:: Yes Diabetes:: No Hypertension:: Yes Dyslipidemia:: Yes Arrhythmias:: Yes - A FIB PAD:: Yes PTCA:: Yes - 2015 AND 2019 ICD:: No Pacemaker:: No Discharge/Home/Social Eval Discharge Disposition: Home - PT ATTENDED CARDIAC REHAB IN 2016 Cardiac Rehabilitation Info Cardiac Rehabilitation Program Information: Cardiac Rehabilitation is important for patients like you who are recovering from a heart problem. Cardiac rehabilitation programs are recognized as integral to the continued care of the patient with coronary heart disease. The cardiac rehabilitation program is designed to optimize a patient's physical, psychological, and social functioning. Health home child care provider work in cardiac rehabilitation programs and assist you with getting the treatments you need to get stronger and healthier - like exercise, healthy eating habits, and medications. Cardiac rehabilitation has been show to help people with heart problems live longer and have better life enjoyment than people who do not go to cardiac rehabilitation. Please contact the Cardiac Rehabilitation Program at [facility] at in two weeks if you have not heard from them.
--- NOTE | 2019-03-18 11:16 | CRPH1.INST_ITS ---
General Education CAD and cardiac anatomy and function:: Not instructed Explanation of diagnoses and procedures:: Not instructed Sign/Symptoms of NE:: Patient communicates acknowledgment, Needs reinforcement Antiplatelet therapy: Patient communicates acknowledgment, Needs reinforcement Proper use of NTG-SL: Not instructed Emergency procedures and activation of EMS: Patient communicates acknowledgment, Needs reinforcement Compliance of all prescribed medications: Patient communicates acknowledgment, Needs reinforcement Smoking Patient Nicotine/Smoking Risk Factors Are:: Cigarettes - WILL ENCOURAGE SMOKE CESSATION PROGRAM ODELL ATTENDS CR PHASE II EVAL Nicotine/Smoking Response Code:: Not instructed Dyslipidemia Dyslipidemia Response Code:: Not instructed Overweight/Obesity Patient Overweight/Obesity Risk Factors Are:: Obesity - > or = 30 - BMI 29.9 Overweight/Obesity:: Not instructed Hypertension Recommendations Include:: Maintain BP <130/85, BP <130/80 if diabetic, DASH diet patrick guidelines, Decrease/maintain normal body weight, Moderation of ETOH - BOOKLET WITH RISH FACTOR MODIFICATIONS GIVEN, ALSO PRIOR CR PATIENT Hypertension:: Not instructed Heart Disease Patient Heart Disease Risk Factors Are:: Previous cardiac event Heart Disease Response Code:: Needs reinforcement Diabetes Patient Diabetes Risk Factors Are:: No documented hx of diabetes Metabolic Syndrome Metabolic Syndrome Response Code:: Not instructed Sedentary Sedentary Response Code:: Not instructed Stress Stress Response Code:: Not instructed
[2019-03-18] MEDS: Citalopram 20 MG Tablet 40 MG PO (12:36)
[2019-03-18] MEDS: Famotidine 20 MG Tablet PO (12:36)
[2019-03-18] MEDS: Morphine 2 MG/ML Syringe IV (13:19)
[2019-03-18] MEDS: Lidocaine 5% Patch 1 PATCH TOPICAL (16:00)
[2019-03-18] MEDS: Furosemide 40 MG/4 ML Vial IV (17:05)
--- NOTE | 2019-03-18 17:41 | PCM.PROGNOTE ---
Subjective: Patient was seen and examined today, she underwent coronary artery catheterization today with balloon angioplasty 3 lesions in the right coronary artery, a drug-eluting stent was also placed in the right coronary artery in the RPL branch. At the time my examination today, patient has no complaints of any chest pain or shortness of breath. - Physical Exam Vitals/I&O's: Vital Signs Temp Pulse Resp BP Pulse Ox 98.1 F 99 18 139/77 H 93 03/18/19 12:10 03/18/19 17:00 03/18/19 17:00 03/18/19 17:00 03/18/19 17:00 Oxygen Flow Rate (L/min) 4 Oxygen Delivery Method Nasal Cannula Weight: 74.389 kg Body Mass Index (BMI) 30.5 Intake and Output for Last 24 Hours 03/16/19 03/17/19 03/18/19 23:59 23:59 23:59 Intake Total 360 / 360 1285.5 / 1285.5 Output Total 1825 / 1825 300 / 300 Balance -1465 / -1465 985.5 / 985.5 General: Alert, Oriented x3, Cooperative, No apparent distress, Well developed, Well nourished HEENT: Atraumatic, PERRLA, EOMI, Normocephalic Oral: Moist Mucosa Neck: Supple, Trachea Midline, Thyroid Normal Size and Texture Lungs: Clear to auscultation, Normal air movement, No rhonchi, No wheeze, No rales Cardiovascular: Regular rate, No murmurs Abdomen: Bowel Sounds Present, Soft, Non Tender, Non-Distended Extremities: No clubbing, No cyanosis, No edema, Capillary Refill Less than 3 Seconds Skin: No rashes, No breakdown Musculoskeletal: No Tenderness to Palpation of Joints or Extremities Neurological: Cranial nerves II-XII grossly intact, Neuro grossly intact, Sensory exam intact to light touch and pain, Coordination normal Psych/Mental Status: Normal Affect, Appropriate, Alert and oriented to time, place, person, mood and affect Laboratory Results 03/17/19 14:30: APTT 29.2 03/17/19 17:34: Troponin I < 0.015 03/17/19 20:29: Troponin I < 0.015 03/18/19 04:55: Sodium 143, Potassium 3.6, Chloride 109 H, Carbon Dioxide 28.0, Anion Gap 6, BUN 21 H, Creatinine 0.90, Estim Creat Clear Calc 46.00, Est GFR (MDRD) Af Amer 79, Est GFR (MDRD) Non-Af 66, BUN/Creatinine Ratio 23.3 H, Glucose 102, Calcium 8.0 L, Triglycerides 111, Cholesterol 108, LDL Cholesterol 46, VLDL Cholesterol 22, HDL Cholesterol 40 03/18/19 04:55: WBC 7.6, RBC 3.96 L, Hgb 11.6 L, Hct 35.1 L, MCV 88.6, MCH 29.3, MCHC 33.0, RDW Std Deviation 45.5 H, RDW Coeff of Natalie 14.2, Plt Count 206, MPV 11.0, Immature Gran % (Auto) 0.300, Neut % (Auto) 71.7 H, Lymph % (Auto) 19.9, Frontier % (Auto) 6.1, Eos % (Auto) 1.7, Baso % (Auto) 0.3, Absolute Neuts (auto) 5.4, Absolute Lymphs (auto) 1.51, Nucleated RBC % 0 03/18/19 04:55: PT 17.2 H, INR 1.4 03/18/19 08:33: Activated Clotting Time 153 H Current Medications Acetaminophen (Tylenol) 650 mg PO Q6H PRN PRN PRN Reason: Pain Score 1-3/10 Hydrocodone Bitart/Acetaminophen ([place] 5mg-325mg) 1 - 2 tablet PO Q4H PRN PRN PRN Reason: Pain Score 4-10/10 Al Hydroxide/Mg Hydroxide (Mylanta Ii) 15 - 30 ml PO Q4H PRN PRN PRN Reason: INDIGESTION Albuterol Sulfate (Ventolin Aerosols) 2.5 mg INHALATION Q2H PRN PRN PRN Reason: dyspnea, wheezing Amiodarone HCl (Cordarone) 200 mg PO DAILY [facility] Last Admin: 03/18/19 06:12 Dose: 200 mg Documented by: Amitriptyline HCl (Elavil) 75 mg PO QHS [facility] Last Admin: 03/17/19 22:00 Dose: 75 mg Documented by: Amlodipine Besylate (Norvasc) 10 mg PO DAILY [facility] Last Admin: 03/18/19 06:12 Dose: 10 mg Documented by: Aspirin (Ecotrin) 81 mg PO DAILY@0800 [facility] Atorvastatin Calcium (Lipitor) 40 mg PO QHS [facility] Last Admin: 03/17/19 22:00 Dose: 40 mg Documented by: Atropine Sulfate () 0.5 mg IV UD PRN PRN Reason: HR <50 bpm Citalopram Hydrobromide (Celexa) 40 mg PO DAILY [facility] Last Admin: 03/18/19 12:36 Dose: 40 mg Documented by: Clopidogrel Bisulfate (Plavix) 75 mg PO DAILY [facility] Last Admin: 03/18/19 06:12 Dose: 75 mg Documented by: Famotidine (Pepcid) 20 mg PO DAILY [facility] Last Admin: 03/18/19 12:36 Dose: 20 mg Documented by: Furosemide (Lasix) 40 mg IV BID@1000,1800 [facility] Last Admin: 03/18/19 17:05 Dose: 40 mg Documented by: Glucagon () 1 mg IM .X1 PRN PRN Reason: Hypoglycemia Heparin Sodium (Beef Lung) (Heparin 500 Unit/5 Ml (100/Ml)) 500 unit IV UD PRN PRN Reason: HEPARIN FLUSH Hydralazine HCl (Apresoline Iv) 10 mg IV Q4H PRN PRN PRN Reason: SBP > 160 Dextrose (Dextrose 10%-Water) 250 mls @ 999 mls/hr IV .Q16M PRN; Protocol PRN Reason: HYPOGLYCEMIA Sodium Chloride () 250 mls @ 15 mls/hr IV .[id number] PRN PRN Reason: Saline Flush Sodium Chloride () 250 mls @ 15 mls/hr IV .[id number] PRN PRN Reason: Additional IVPB Infusion Sodium Chloride () 1,000 mls @ 0 mls/hr IV .Q0M [facility] Last Infusion: 03/18/19 12:40 Dose: Infused Documented by: Isosorbide Mononitrate (Imdur) 60 mg PO BID [facility] Last Admin: 03/18/19 06:13 Dose: 60 mg Documented by: Labetalol HCl (Trandate) 5 mg IV X1 PRN PRN Reason: SBP > 160 PRIOR TO SHEATH PULL Lidocaine (Lidoderm Patch) 1 patch TOPICAL DAILY [facility]; Protocol Last Admin: 03/18/19 16:00 Dose: 1 patch Documented by: Lisinopril (Zestril) 40 mg PO BID [facility] Last Admin: 03/18/19 06:12 Dose: 40 mg Documented by: Lorazepam (Ativan) 1 mg PO Q6H PRN PRN PRN Reason: BACK SPASMS/ANXIETY Last Admin: 03/18/19 09:44 Dose: 1 mg Documented by: Magnesium Hydroxide (Milk Of Magnesia) 30 ml PO DAILY PRN PRN Reason: Constipation Melatonin (Melatonin) 3 mg PO QHS PRN PRN PRN Reason: INSOMNIA Last Admin: 03/17/19 21:58 Dose: 3 mg Documented by: Metoclopramide HCl (Reglan) 5 mg IV Q6H PRN PRN PRN Reason: NAUSEA/VOMITING Metoprolol Tartrate (Lopressor (Beta Alyssa)) 100 mg PO BID [facility] Last Admin: 03/18/19 06:12 Dose: 100 mg Documented by: Morphine Sulfate () 2 - 4 mg IV Q4H PRN PRN PRN Reason: Pain Score 1-10/10 Morphine Sulfate () 2 - 4 mg IV Q4H PRN PRN Last Admin: 03/18/19 13:19 Dose: 2 mg Documented by: Nitroglycerin (Nitrostat) 0.4 mg SUBLINGUAL Q5M PRN PRN Reason: CARDIAC/CHEST PAIN Nutritional Formula (Lactose Free) (Ensure Enlive) 120 ml PO 4X/DAY [facility] Last Admin: 03/18/19 17:05 Dose: Not Given Documented by: Ondansetron HCl (Zofran) 4 mg IV Q8H PRN PRN PRN Reason: NAUSEA/VOMITING Pramipexole Dihydrochloride (Mirapex) 1 mg PO QHS [facility] Last Admin: 03/17/19 22:01 Dose: 1 mg Documented by: Sodium Chloride () 10 - 40 ml IV UD PRN PRN Reason: SALINE FLUSH Last Admin: 03/18/19 13:19 Dose: 10 ml Documented by: Sodium Chloride () 500 ml IV BOLUS PRN PRN Reason: VASO-VAGAL PROTOCOL Medical Necessity - Tobacco Use Smoking Status: Current every day smoker Tobacco Use: Cigarettes Assessment/Plan All Active Problems (Last Updated 03/18/19 @ 17:30 by Anuja Gaviria) Unstable angina pectoris due to coronary arteriosclerosis (Resolved) History of coronary artery stent placement (Resolved 03/18/19) Chest pain (Resolved) Angina pectoris (Resolved) Atrial fibrillation with RVR (Resolved) Hypokalemia (Resolved) Preop cardiovascular exam (Resolved) #1 unstable angina-continue medications per cardiology #2 occlusive coronary artery disease right coronary artery-postop day 0 balloon angioplasty with drug-eluting stent right posterior lateral branch of the right coronary artery and drug-eluting stent placement and distal right coronary artery #3 essential hypertension #4 hyperlipidemia #5 chronic atrial fib #6 peripheral artery disease #7 acute diastolic CHF-continue IV Lasix Code Visit Inpatient E&M: 96259 Subs Hosp L2
[2019-03-18] MEDS: Atorvastatin Calcium 40 MG Tablet PO (21:38)
[2019-03-18] MEDS: Amitriptyline 25 MG Tablet 75 MG PO (21:38)
[2019-03-18] MEDS: Pramipexole Di-HCl 1 MG Tablet PO (21:38)
[2019-03-19] VITALS (32 sets, daily range): BP systolic 91–149; BP diastolic 45–65; PULSE 48–97; RESP 12–26; TEMP 36.1–36.9; O2SAT 88–100
--- NOTE | 2019-03-19 00:30 | EKG12_ITS ---
Test Reason : AM EKG Blood Pressure : / mmHG Vent. Rate : 051 BPM Atrial Rate : 051 BPM P-R Int : 180 ms QRS Dur : 104 ms QT Int : 504 ms P-R-T Axes : 054 018 051 degrees QTc Int : 464 ms Sinus bradycardia with Premature supraventricular complexes Septal infarct , age undetermined Abnormal ECG When compared with ECG of 18-MAR-2019 09:29, MANUAL COMPARISON REQUIRED, DATA IS UNCONFIRMED Confirmed by HUYEN JEAN-BAPTISTE, TAYLOR ([id number]), editorial cartoonist MAREN GRIMES ([id number]) on 03/23/2019 9:13:51 AM Referred By: Fernanda Puri Confirmed By:TAYLOR MATSON MD
--- NOTE | 2019-03-19 00:42 | RAD_ITS ---
STUDY: X-RAY CHEST REASON FOR EXAM: Female, 69 years old. SOB/CHEST PAIN TECHNIQUE: Portable chest COMPARISON: 03/17/2019 FINDINGS: There is stable cardiomegaly. There is development of left lower lobe infiltrate and atelectasis. There there is new right lower lobe infiltrate and subsegmental atelectasis. Is no demonstrated pleural abnormality. There is mild improvement of upper lobe pulmonary vascularity. There are small bilateral pleural effusions. Normal mediastinum and artis. Normal visualized pulmonary arteries. Normal visualized aortic arch and descending thoracic aorta. Normal visualized thoracic spine. Normal visualized ribs, clavicles, and shoulders. There is no demonstrated abnormality of the visualized soft tissue structures of the upper abdomen. RAD/Chest 1 View (Portable) IMPRESSION: Stable cardiomegaly Development of new bilateral lower lobe infiltrates and atelectasis likely pneumonia Improving pulmonary venous congestion Small bilateral pleural effusions Electronically Signed: Sathish Yoo, at 4:05 EST Tel , Service support ,
--- NOTE | 2019-03-19 00:45 | PN_ITS ---
Progress Note Parents report that patient heart rate on monitor was 0 and later on it went into the 30s. Patient had these symptoms while in bed after she had returned from using the bathroom. She had a PCI with stent placed on same day. Patient was seen and examined at bedside. Will replace magnesium and potassium. Of note magnesium was 1.9. Stop Beta-blockers for now. Pacemaker pads already placed on by nursing team. Nurse report discussing the case with enrollment management director who is okay with above orders. Cardiology will follow patient's in a.m. On examination heart: S1-S2 was present with normal rhythm. Patient was wheezing,mild. Bowel sounds were present. Sinus rhythm with a prolonged QTC in the 480s. Bedside orders: Repeat BMP. Check troponin. We will get a chest x-ray. At home patient use a CPAP/BiPAP; resume. STROKE Vital Signs/Narrative: Vital Signs Pulse Resp BP BP Pulse Ox 03/18/19 23:00 98 23 H 143/72 H 97 03/18/19 22:00 100 22 H 147/80 H 95 03/18/19 21:38 100 140/83 H 03/18/19 21:00 99 23 H 140/83 H 98
[2019-03-19] MEDS: Morphine 2 MG/ML Syringe IV (00:49)
[2019-03-19 00:50] LABS: Absolute Lymphocyte Count 1.42 X10^3/uL (0.83-4.51); Absolute Neutrophil Count 6.9 X10^3/uL (2.0-7.7); Basophil# 0.03 X10^3/uL; Basophil% 0.3 % (0-1); Eosinophil# 0.16 X10^3/uL; Eosinophils% 1.8 % (0-5); Hematocrit 35.1 % (37-47); Hemoglobin 11.7 g/dL (12.0-15.0); Lymphocyte # 1.42 X10^3/ul (4.0); Lymphocyte % 15.7 % (19-41); Mean Corp Hgb Conc 33.3 g/dL (32-36); Mean Corpuscular Hgb 29.3 pg (27.0-32.0); Mean Platelet Vol. 10.7 fl (6.2-12.0); Monocyte% 5.5 % (0-10); NRBC Flagged by Analyzer 0 % (0-5); Neutrophil # 6.87 X10^3/uL (2.7-7.7); Neutrophil % 76.3 % (47-70); Platelet Count 234 K/mm3 (150-450); RBC Distribution Width CV 13.9 % (11.6-14.6); RBC Distribution Width SD 44.2 fl (35.1-43.9); Red Blood Count 3.99 M/mm3 (4.2-5.4)
[2019-03-19] MEDS: Potassium Chloride 10mEq/100mL 10 MEQ/100 ML IV.SOLN. 100 MEQ IV BOLUS ×4 (01:08→05:08)
[2019-03-19 01:09] LABS: Anion Gap 5 (5-15); BUN 24 mg/dL (7-18); BUN/Creat Ratio 24.9 RATIO (10-20); Calcium,Total 8.7 mg/dL (8.5-10.1); Chloride 107 mmol/L (98-107); Creatinine, Serum 0.96 mg/dL (0.55-1.02); EST Glomerular Filtration Rate 61 mL/min (>60); Est Glom Filt Rate - Afr Amer 74 mL/min (>60); Estimated Creatinine Clearance 43.13 ml/min; Glucose 144 mg/dL (74-106); Sodium Level 139 mmol/L (136-145)
[2019-03-19 04:20] LABS: Hematocrit 30.3 % (37-47); Hemoglobin 10.1 g/dL (12.0-15.0); Mean Corp Hgb Conc 33.3 g/dL (32-36); Mean Corpuscular Hgb 29.6 pg (27.0-32.0); Mean Corpuscular Volume 88.9 fL (81-99); Mean Platelet Vol. 11.1 fl (6.2-12.0); Platelet Count 185 K/mm3 (150-450); RBC Distribution Width SD 45.1 fl (35.1-43.9); Red Blood Count 3.41 M/mm3 (4.2-5.4); White Blood Count 6.8 K/mm3 (4.4-11.0)
[2019-03-19 05:11] LABS: AST(SGOT) 30 U/L (15-37); Alanine Aminotransfer ALT/SGPT 51 U/L (13-56); Albumin, Serum 2.9 g/dL (3.2-5.0); Alkaline Phosphatase 145 U/L (45-117); Anion Gap 4 (5-15); BUN 25 mg/dL (7-18); BUN/Creat Ratio 29.1 RATIO (10-20); Calcium,Total 7.9 mg/dL (8.5-10.1); Chloride 107 mmol/L (98-107); Cholesterol 99 mg/dL (200); Creatinine, Serum 0.86 mg/dL (0.55-1.02); EST Glomerular Filtration Rate 70 mL/min (>60); Est Glom Filt Rate - Afr Amer 84 mL/min (>60); Estimated Creatinine Clearance 48.14 ml/min; Globulin 2.9 g/dL (2.2-4.2); Glucose 130 mg/dL (74-106); High Density Lipoprotein 35 mg/dL; Potassium 4.3 mmol/L (3.5-5.1); Protein, Total 5.8 g/dL (6.4-8.2); Sodium Level 139 mmol/L (136-145); Triglycerides 122 mg/dL; Very Low Density Lipoprotein 24 mg/dL (5-40)
--- NOTE | 2019-03-19 06:34 | CON.PCM_ITS ---
Reason for Consult Date of Consultation: 03/19/19 Reason for Consultation: Acute hypoxemic respiratory failure History of Present Illness: The patient is a 69-year-old female, with a history as outlined below, who initially presented to the emergency department on March 17 with complaints of shortness of breath, chest pain and cough. The patient was previously being followed by Dr. Zack Marx in the pulmonary medicine clinic due to a history of emphysema, obstructive sleep apnea with pap noncompliance and tobacco dependency. She is also followed by Dr. Treviño in the cardiology clinic due to a history of paroxysmal atrial fibrillation and coronary artery disease. The patient is a current everyday smoker. She did report that prior to her hospitalization she did have a mild productive cough. However, since being admitted, her cough has improved. On presentation to the emergency department, the patient was noted to be afebrile, tachycardic and hypertensive with a blood pressure of 190/109 mmHg. Initial laboratory evaluation revealed no evidence of a leukocytosis. Chemistry profile was largely unremarkable. Initial troponin was negative. However, BNP was elevated to 680. Initial plain film chest x-ray revealed interstitial prominence likely secondary to edema. The patient was subsequently admitted to the hospital with unstable angina and suspected decompensated heart failure. The patient was subsequently seen in consultation by cardiology. She was taken for cardiac catheterization on March 18. A drug-eluting stent was placed to the proximal PDA and distal RCA. No immediate complications were noted post procedure. Overnight, the patient apparently developed worsening shortness of breath and significant bradycardia. The patient does not apparently have a baseline supplemental oxygen requirement but was requiring upwards of 4 L/min via nasal cannula, which was then transition to BiPAP overnight. She did have a mild troponin elevation overnight which peaked at 0.523. Surface echocardiogram from March 18 revealed normal LV size with ejection function at the lower limits of normal. Pulmonary artery systolic pressure was estimated to be 32 mmHg. The patient's beta-declan, which included metoprolol at 100 mg twice daily, was subsequently placed on hold. Nevertheless, she still remains on amiodarone and Norvasc. A repeat chest x-ray was obtained this morning and revealed findings concerning for a left lower lobe infiltrate. There was small bilateral pleural effusions along with what appears to be atelectasis in the right lower lobe. Past Medical History Past Medical History (Chronic Problems): Chronic Problems (Last Updated 03/18/19 @ 17:30 by Anuja Gaviria) Acute on chronic diastolic (congestive) heart failure (Chronic) PAD (peripheral artery disease) (Chronic) Abdominal aortic aneurysm (AAA) (Chronic) Claudication in peripheral vascular disease (Chronic) Nicotine dependence (Chronic) Essential (primary) hypertension (Chronic) Atherosclerotic peripheral vascular disease (Chronic) Atherosclerotic heart disease of [place] coronary artery without angina pectoris (Chronic) Paroxysmal atrial fibrillation (Chronic) Non-STEMI (non-ST elevated myocardial infarction) (Chronic 04/21/15) HLD (hyperlipidemia) (Chronic) Medical History: Medical History (Last Updated 03/18/19 @ 17:30 by Anuja Gaviria) Acute on chronic diastolic (congestive) heart failure (Chronic) I50.33 Unstable angina pectoris due to coronary arteriosclerosis (Resolved) I25.110 PAD (peripheral artery disease) (Chronic) I73.9 Abdominal aortic aneurysm (AAA) (Chronic) I71.4 Claudication in peripheral vascular disease (Chronic) I73.9 Nicotine dependence (Chronic) F17.200 Essential (primary) hypertension (Chronic) I10 Atherosclerotic peripheral vascular disease (Chronic) I70.209 Atherosclerotic heart disease of [place] coronary artery without angina pectoris (Chronic) I25.10 Paroxysmal atrial fibrillation (Chronic) I48.0 Non-STEMI (non-ST elevated myocardial infarction) (Chronic) Onset Date: 04/21/15 I21.4 HLD (hyperlipidemia) (Chronic) E78.5 Anxiety and depression F41.8 Emphysema of lung J43.9 IBS (irritable bowel syndrome) BELLE (obstructive sleep apnea) Supposed to be on BiPAP Obesity E66.9 Angina pectoris (Resolved) I20.9 Atrial fibrillation with RVR (Resolved) I48.91 Paroxsymal History of hysterectomy Z90.710 Hypokalemia (Resolved) E87.6 Dyspnea on exertion (Inactive) R06.09 Wheezing (Inactive) R06.2 Allergies No Known Allergies Allergy (Verified 03/17/19 14:00) Home Medications: Ambulatory Orders Medication Instructions Recorded Amitriptyline HCl [Elavil] 75 mg PO QHS 11/25/13 Citalopram [Celexa] 40 mg PO DAILY 11/25/13 Multivitamins,Therapeutic 1 tab PO DAILY 11/25/13 [Multivitamin] Pramipexole Di-HCl [Mirapex] 1 mg PO QHS 11/25/13 Melatonin 3 mg PO QHS PRN 04/25/17 atorvastatin 40 mg tablet 40 mg PO BID 05/20/17 nitroglycerin 0.4 mg sublingual 0.4 mg SUBLINGUAL Q5M PRN #25 tab 05/20/17 tablet ranitidine HCl 150 mg tablet 150 mg PO DAILY 90 Days #180 08/12/17 vitamin E (dl, acetate) 400 unit 400 unit PO QDAY 08/12/17 capsule clopidogrel 75 mg tablet 75 mg PO DAILY #90 tab 11/25/17 ascorbic acid (vitamin C) 500 mg 500 mg PO DAILY cap 06/15/18 capsule cholecalciferol (vitamin D3) 25 1,000 unit PO DAILY 06/15/18 mcg (1,000 unit) capsule lidocaine 5 % topical patch 1 patch TOPICAL DAILY 06/15/18 albuterol sulfate 90 mcg/actuation 1 - 2 puff INHALATION Q4H PRN PRN 06/16/18 aerosol inhaler #1 inhaler rivaroxaban 20 mg tablet 20 mg PO DAILY #90 tab 11/13/18 amlodipine 10 mg tablet 10 mg PO DAILY #90 tab 11/18/18 isosorbide mononitrate 60 mg 60 mg PO BID #180 tab 11/18/18 tablet,extended release 24 hr lisinopril 40 mg tablet 40 mg PO BID #180 tab 11/18/18 amiodarone 200 mg tablet 200 mg PO DAILY #90 tab 11/26/18 metoprolol tartrate 50 mg tablet 100 mg PO BID #180 tab 01/20/19 Acetaminophen [Tylenol Extra 500 mg PO Q4H PRN PRN #20 tab 01/31/19 Strength] Surgical History: Surgical History (Last Updated 03/18/19 @ 17:27 by Anuja Gaviria) History of coronary artery stent placement (Resolved) Onset Date: 03/18/19 Z95.5 [id number] LCx and OM 03/20/99; PCI-CARMEN of distal RCA and POBA-ostium of posterolateral branch for stent jailing; PCI-CARMEN to RCA and PDA 02/20; PCI- CARMEN to ISR-RCA 04/21/2015; [id number]-Asjb RPDA w/ 2.5 x 24 mm Promus Stent and Distal RCA w/ 3.0 x 16 mm Promus Stent and POBA Ostial RPLB 03/18/2019 History of bilateral leg stents History of bunionectomy of right great toe Z98.890 History of colonoscopy Onset Date: ~06/2018 Z98.890 History of left heart catheterization Z98.890 03/20/99, 07/31/99,12/21/02, 06/2003, 02/2007, 12/2010, 04/20/15 History of tonsillectomy Z90.89 Hx of APLL Right X2-01/05/15, 11/26/13 Left X2- 02/15/15, 09/23/2016 Hx of hysterectomy Z90.710 Status post left foot surgery Z98.890 Surgical History: - - LE intervention for PAD per Dr. Gar, cardiac catheterizations w/ total PCI x 7, Lower back injections, DIOMEDES, T+A, R foot surgery. 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 history Lives: Alone Smoking Status: Current every day smoker Tobacco Use: Cigarettes Alcohol: None Drugs: None - *Family History Maternal Family History: Family History (Last Reviewed 09/29/18 @ 15:28 by Laura Narayan) Father Heart disease Hypertension Seizures Sister CVA (cerebral vascular accident) Hypertension Other Family history of hypertension History Items: Diabetes, High Cholesterol, Heart Disease, Hypertension, Stroke Paternal Family History: Family History (Last Reviewed 09/29/18 @ 15:28 by Laura Narayan) Father Heart disease Hypertension Seizures Sister CVA (cerebral vascular accident) Hypertension Other Family history of hypertension History Items: Diabetes, High Cholesterol, Heart Disease, Hypertension, Stroke Review of Systems Constitutional: Denies: Chills, Fever Eyes: Denies: Blurred vision, Double vision HEENT: Denies: Head Aches, Sinus Congestion, Sinus Drainage Cardiovascular: Denies: Chest Pain, Palpitations Respiratory: Reports: Shortness of Breath. Denies: Cough, Sputum production Gastrointestinal: Denies: Abdominal Pain, Nausea, Vomiting Genitourinary: Denies: Dysuria Musculoskeletal: Denies: Joint Pain, Joint Tenderness Skin: Denies: Rash, Wounds Neurological: Denies: Numbness, Tingling, Focal weakness Psychiatric: Reports: Anxiety, Depression Hematologic/ Lymphatic: Denies: Easy Bruising, Easy Bleeding Objective: The patient's most recent lab work, culture data and imaging studies have all been personally reviewed. - Physical Exam Vitals/I&O's: Vital Signs Temp Pulse Resp BP Pulse Ox 97.1 F L 50 L 19 H 114/58 L 100 03/19/19 04:00 03/19/19 06:00 03/19/19 06:00 03/19/19 06:00 03/19/19 06:00 Oxygen Flow Rate (L/min) 4 Oxygen Delivery Method Bi-pap Weight: 164 lb Body Mass Index (BMI) 30.5 Intake and Output for Last 24 Hours 03/17/19 03/18/19 03/19/19 23:59 23:59 23:59 Intake Total 360 / 360 1485.5 / 1725.5 744.50 / 744.50 Output Total 1825 / 1825 800 / 2500 1700 / 1700 Balance -1465 / -1465 685.5 / -774.5 -955.50 / -955.50 General: Alert, Oriented x3, Cooperative, No apparent distress, - - Sitting upright in bed on nasal cannula supplemental oxygen. HEENT: Atraumatic, PERRLA, Normocephalic Oral: No Gingival or Mucosal Lesions/ Ulcerations Neck: Supple, No Nodes, Trachea Midline Lungs: No rhonchi, No wheeze, No rales, Diminished Cardiovascular: Normal S1, Normal S2, No murmurs, Bradycardic Abdomen: Bowel Sounds Present, Soft, Non Tender Extremities: No clubbing, No cyanosis Skin: No breakdown Musculoskeletal: No Tenderness to Palpation of Joints or Extremities, No Muscle Wasting Lymphatic: No Cervical, Supraclavicular, or Inguinal Adenopathy Neurological: Cranial nerves II-XII grossly intact, Neuro grossly intact Psych/Mental Status: Alert and oriented to time, place, person, mood and affect Labs (Last 48 Hours) 03/17/19 03/17/19 03/17/19 14:30 14:30 14:30 WBC 7.9 RBC 3.92 L Hgb 11.2 L Hct 34.5 L MCV 88.0 MCH 28.6 MCHC 32.5 RDW Std Deviation 44.4 H RDW Coeff of Natalie 14.0 Plt Count 192 MPV 10.9 Immature Gran % (Auto) 0.400 Neut % (Auto) 79.8 H Lymph % (Auto) 12.1 L [place] % (Auto) 5.9 Eos % (Auto) 1.5 Baso % (Auto) 0.3 Absolute Neuts (auto) 6.3 Absolute Lymphs (auto) 0.95 Nucleated RBC % 0 PT INR APTT Activated Clotting Time Sodium 142 Potassium 3.7 Chloride 111 H Carbon Dioxide 24.0 Anion Gap 7 BUN 15 Creatinine 0.80 Estim Creat Clear Calc 51.75 Est GFR (MDRD) Af Amer 91 Est GFR (MDRD) Non-Af 75 BUN/Creatinine Ratio 18.7 Glucose 112 H Calcium 8.7 Magnesium 1.9 Total Bilirubin AST ALT Alkaline Phosphatase Troponin I < 0.015 B-Natriuretic Peptide Total Protein Albumin Globulin Albumin/Globulin Ratio Triglycerides Cholesterol LDL Cholesterol VLDL Cholesterol HDL Cholesterol TSH 2.09 03/17/19 03/17/19 03/17/19 14:30 14:30 17:34 WBC RBC Hgb Hct MCV MCH MCHC RDW Std Deviation RDW Coeff of Natalie Plt Count MPV Immature Gran % (Auto) Neut % (Auto) Lymph % (Auto) [place] % (Auto) Eos % (Auto) Baso % (Auto) Absolute Neuts (auto) Absolute Lymphs (auto) Nucleated RBC % PT INR APTT 29.2 Activated Clotting Time Sodium Potassium Chloride Carbon Dioxide Anion Gap BUN Creatinine Estim Creat Clear Calc Est GFR (MDRD) Af Amer Est GFR (MDRD) Non-Af BUN/Creatinine Ratio Glucose Calcium Magnesium Total Bilirubin AST ALT Alkaline Phosphatase Troponin I < 0.015 B-Natriuretic Peptide 680.0 H Total Protein Albumin Globulin Albumin/Globulin Ratio Triglycerides Cholesterol LDL Cholesterol VLDL Cholesterol HDL Cholesterol TSH 03/17/19 03/18/19 03/18/19 20:29 04:55 04:55 WBC 7.6 RBC 3.96 L Hgb 11.6 L Hct 35.1 L MCV 88.6 MCH 29.3 MCHC 33.0 RDW Std Deviation 45.5 H RDW Coeff of Natalie 14.2 Plt Count 206 MPV 11.0 Immature Gran % (Auto) 0.300 Neut % (Auto) 71.7 H Lymph % (Auto) 19.9 [place] % (Auto) 6.1 Eos % (Auto) 1.7 Baso % (Auto) 0.3 Absolute Neuts (auto) 5.4 Absolute Lymphs (auto) 1.51 Nucleated RBC % 0 PT INR APTT Activated Clotting Time Sodium 143 Potassium 3.6 Chloride 109 H Carbon Dioxide 28.0 Anion Gap 6 BUN 21 H Creatinine 0.90 Estim Creat Clear Calc 46.00 Est GFR (MDRD) Af Amer 79 Est GFR (MDRD) Non-Af 66 BUN/Creatinine Ratio 23.3 H Glucose 102 Calcium 8.0 L Magnesium Total Bilirubin AST ALT Alkaline Phosphatase Troponin I < 0.015 B-Natriuretic Peptide Total Protein Albumin Globulin Albumin/Globulin Ratio Triglycerides 111 Cholesterol 108 LDL Cholesterol 46 VLDL Cholesterol 22 HDL Cholesterol 40 TSH 03/18/19 03/18/19 03/19/19 04:55 08:33 00:40 WBC 9.0 RBC 3.99 L Hgb 11.7 L Hct 35.1 L MCV 88.0 MCH 29.3 MCHC 33.3 RDW Std Deviation 44.2 H RDW Coeff of Natalie 13.9 Plt Count 234 MPV 10.7 Immature Gran % (Auto) 0.400 Neut % (Auto) 76.3 H Lymph % (Auto) 15.7 L [place] % (Auto) 5.5 Eos % (Auto) 1.8 Baso % (Auto) 0.3 Absolute Neuts (auto) 6.9 Absolute Lymphs (auto) 1.42 Nucleated RBC % 0 PT 17.2 H INR 1.4 APTT Activated Clotting Time 153 H Sodium Potassium Chloride Carbon Dioxide Anion Gap BUN Creatinine Estim Creat Clear Calc Est GFR (MDRD) Af Amer Est GFR (MDRD) Non-Af BUN/Creatinine Ratio Glucose Calcium Magnesium Total Bilirubin AST ALT Alkaline Phosphatase Troponin I B-Natriuretic Peptide Total Protein Albumin Globulin Albumin/Globulin Ratio Triglycerides Cholesterol LDL Cholesterol VLDL Cholesterol HDL Cholesterol TSH 03/19/19 03/19/19 03/19/19 00:40 04:00 04:00 WBC 6.8 RBC 3.41 L Hgb 10.1 L Hct 30.3 L MCV 88.9 MCH 29.6 MCHC 33.3 RDW Std Deviation 45.1 H RDW Coeff of Natalie 14.0 Plt Count 185 MPV 11.1 Immature Gran % (Auto) Neut % (Auto) Lymph % (Auto) [place] % (Auto) Eos % (Auto) Baso % (Auto) Absolute Neuts (auto) Absolute Lymphs (auto) Nucleated RBC % PT INR APTT Activated Clotting Time Sodium 139 139 Potassium 4.0 4.3 Chloride 107 107 Carbon Dioxide 27.0 28.0 Anion Gap 5 4 L BUN 24 H 25 H Creatinine 0.96 0.86 Estim Creat Clear Calc 43.13 48.14 Est GFR (MDRD) Af Amer 74 84 Est GFR (MDRD) Non-Af 61 70 BUN/Creatinine Ratio 24.9 H 29.1 H Glucose 144 H 130 H Calcium 8.7 7.9 L Magnesium Total Bilirubin 0.50 AST 30 ALT 51 Alkaline Phosphatase 145 H Troponin I 0.523 H B-Natriuretic Peptide Total Protein 5.8 L Albumin 2.9 L Globulin 2.9 Albumin/Globulin Ratio 1.0 Triglycerides 122 Cholesterol 99 LDL Cholesterol 40 VLDL Cholesterol 24 HDL Cholesterol 35 L TSH 03/19/19 04:00 WBC RBC Hgb Hct MCV MCH MCHC RDW Std Deviation RDW Coeff of Natalie Plt Count MPV Immature Gran % (Auto) Neut % (Auto) Lymph % (Auto) [place] % (Auto) Eos % (Auto) Baso % (Auto) Absolute Neuts (auto) Absolute Lymphs (auto) Nucleated RBC % PT INR APTT Activated Clotting Time Sodium Potassium Chloride Carbon Dioxide Anion Gap BUN Creatinine Estim Creat Clear Calc Est GFR (MDRD) Af Amer Est GFR (MDRD) Non-Af BUN/Creatinine Ratio Glucose Calcium Magnesium Total Bilirubin AST ALT Alkaline Phosphatase Troponin I 0.419 H B-Natriuretic Peptide Total Protein Albumin Globulin Albumin/Globulin Ratio Triglycerides Cholesterol LDL Cholesterol VLDL Cholesterol HDL Cholesterol TSH Clinical Impression(s) from Imaging Studies Chest X-Ray 03/17/19 14:30 IMPRESSION: Unfavorable change. CHF with interstitial edema and trace effusions. Electronically Signed: Hugo Spaulding MD ([place]) at 15:00 EST , Service support , Chest X-Ray 03/19/19 00:42 IMPRESSION: Stable cardiomegaly Development of new bilateral lower lobe infiltrates and atelectasis likely pneumonia Improving pulmonary venous congestion Small bilateral pleural effusions Electronically Signed: Sathish Yoo at 4:05 EST Tel , Service support , Current Medications Acetaminophen (Tylenol) 650 mg PO Q6H PRN PRN PRN Reason: Pain Score 1-3/10 Hydrocodone Bitart/Acetaminophen ([place] 5mg-325mg) 1 - 2 tablet PO Q4H PRN PRN PRN Reason: Pain Score 4-10/10 Al Hydroxide/Mg Hydroxide (Mylanta Ii) 15 - 30 ml PO Q4H PRN PRN PRN Reason: INDIGESTION Albuterol Sulfate (Ventolin Aerosols) 2.5 mg INHALATION Q2H PRN PRN PRN Reason: dyspnea, wheezing Amiodarone HCl (Cordarone) 200 mg PO DAILY [facility] Last Admin: 03/18/19 06:12 Dose: 200 mg Documented by: Amitriptyline HCl (Elavil) 75 mg PO QHS [facility] Last Admin: 03/18/19 21:38 Dose: 75 mg Documented by: Amlodipine Besylate (Norvasc) 10 mg PO DAILY [facility] Last Admin: 03/18/19 06:12 Dose: 10 mg Documented by: Aspirin (Ecotrin) 81 mg PO DAILY@0800 [facility] Atorvastatin Calcium (Lipitor) 40 mg PO QHS [facility] Last Admin: 03/18/19 21:38 Dose: 40 mg Documented by: Atropine Sulfate () 0.5 mg IV UD PRN PRN Reason: HR <50 bpm Citalopram Hydrobromide (Celexa) 40 mg PO DAILY [facility] Last Admin: 03/18/19 12:36 Dose: 40 mg Documented by: Clopidogrel Bisulfate (Plavix) 75 mg PO DAILY [facility] Last Admin: 03/18/19 06:12 Dose: 75 mg Documented by: Famotidine (Pepcid) 20 mg PO DAILY [facility] Last Admin: 03/18/19 12:36 Dose: 20 mg Documented by: Furosemide (Lasix) 40 mg IV BID@1000,1800 [facility] Last Admin: 03/18/19 17:05 Dose: 40 mg Documented by: Glucagon () 1 mg IM .X1 PRN PRN Reason: Hypoglycemia Heparin Sodium (Beef Lung) (Heparin 500 Unit/5 Ml (100/Ml)) 500 unit IV UD PRN PRN Reason: HEPARIN FLUSH Hydralazine HCl (Apresoline Iv) 10 mg IV Q4H PRN PRN PRN Reason: SBP > 160 Dextrose (Dextrose 10%-Water) 250 mls @ 999 mls/hr IV .Q16M PRN; Protocol PRN Reason: HYPOGLYCEMIA Sodium Chloride () 250 mls @ 15 mls/hr IV .[id number] PRN PRN Reason: Saline Flush Last Infusion: 03/19/19 01:14 Dose: 0 mls/hr Documented by: Sodium Chloride () 250 mls @ 15 mls/hr IV .[id number] PRN PRN Reason: Additional IVPB Infusion Last Infusion: 03/19/19 01:14 Dose: 0 mls/hr Documented by: Sodium Chloride () 1,000 mls @ 0 mls/hr IV .Q0M JARED Last Infusion: 03/18/19 12:40 Dose: Infused Documented by: Isosorbide Mononitrate (Imdur) 60 mg PO BID [facility] Last Admin: 03/18/19 21:37 Dose: 60 mg Documented by: Lidocaine (Lidoderm Patch) 1 patch TOPICAL DAILY [facility]; Protocol Last Admin: 03/18/19 16:00 Dose: 1 patch Documented by: Lisinopril (Zestril) 40 mg PO BID [facility] Last Admin: 03/18/19 21:38 Dose: 40 mg Documented by: Lorazepam (Ativan) 1 mg PO Q6H PRN PRN PRN Reason: BACK SPASMS/ANXIETY Last Admin: 03/18/19 09:44 Dose: 1 mg Documented by: Magnesium Hydroxide (Milk Of Magnesia) 30 ml PO DAILY PRN PRN Reason: Constipation Melatonin (Melatonin) 3 mg PO QHS PRN PRN PRN Reason: INSOMNIA Last Admin: 03/17/19 21:58 Dose: 3 mg Documented by: Metoclopramide HCl (Reglan) 5 mg IV Q6H PRN PRN PRN Reason: NAUSEA/VOMITING Morphine Sulfate () 2 - 4 mg IV Q4H PRN PRN PRN Reason: Pain Score 1-10/10 Morphine Sulfate () 2 - 4 mg IV Q4H PRN PRN Last Admin: 03/19/19 00:49 Dose: 2 mg Documented by: Nitroglycerin (Nitrostat) 0.4 mg SUBLINGUAL Q5M PRN PRN Reason: CARDIAC/CHEST PAIN Nutritional Formula (Lactose Free) (Ensure Enlive) 120 ml PO 4X/DAY [facility] Last Admin: 03/18/19 21:39 Dose: Not Given Documented by: Ondansetron HCl (Zofran) 4 mg IV Q8H PRN PRN PRN Reason: NAUSEA/VOMITING Pramipexole Dihydrochloride (Mirapex) 1 mg PO QHS [facility] Last Admin: 03/18/19 21:38 Dose: 1 mg Documented by: Sodium Chloride () 10 - 40 ml IV UD PRN PRN Reason: SALINE FLUSH Last Admin: 03/18/19 13:19 Dose: 10 ml Documented by: Sodium Chloride () 500 ml IV BOLUS PRN PRN Reason: VASO-VAGAL PROTOCOL Assessment/Plan RECOMMENDATIONS: 1. I do not see an indication for antibiotics at this time. 2. Wean supplemental oxygen to maintain saturations at or above 90%. 3. Check BNP, and if elevated, start IV lasix. 4. Encourage incentive spirometer use and mobilize patient as tolerated. 5. Continue bronchodilators. IMPRESSIONS: 1. Acute Hypoxemic Respiratory Failure The patient has had a supplemental oxygen requirement over the course of the hospitalization and did require BIPAP for a period of time overnight. The CXR from this morning appears to be most consistent with effusions and atelectasis, as opposed to focal infiltrates. Given that the patient has no systemic signs of infection and does not currently have a productive cough, I do not feel that antibiotics are indicated. I would plan to check a BNP, and if elevated, start patient on IV lasix. Encourage incentive spirometer use and mobilize patient as tolerated. 2. Continuous tobacco dependency I personally spent 5 minutes discussing the deleterious effects of continued tobacco use with the patient, including modalities which could be utilized to achieve a smoke-free lifestyle. 3. Atrial fibrillation/hypertension/hyperlipidemia Complicates care, management, recovery and prognosis. Continue medical management per cardiology recommendations. This note was generated with [employer] dictation software. It may contain incorrect words, spelling, and punctuation that were not noted in checking the note before signing. Code Visit Inpatient E&M: 01316 Init Hosp L3 - Behavior Interventions Behavior Intervention: 90066 Smoking Cessation 3-10 min
[2019-03-19 08:20] LABS: BNP,B-Type NATRIURETIC PEPTIDE 622.8 pg/mL (0-100)
--- NOTE | 2019-03-19 09:02 | PN.CARD_ITS ---
Subjectve: Patient was doing well up until last evening around 12:20 AM when she got up to go to the bathroom, and had a 9-second sinus pause with a junctional escape rhythm, no presyncope or syncope but the patient did note that she did not feel herself. This then reverted back to normal sinus rhythm/sinus bradycardia. It appears that recently her metoprolol was increased from 50 twice daily to 100 mg twice daily. She continues on amiodarone. No chest pain symptoms. Right groin is clean/dry/intact without evidence of thrills, bruits or hematoma. She also had some shortness of breath and a chest x-ray demonstrated possible bilateral lower infiltrates versus congestive heart failure. The patient has bilateral lower lung field crackles on physical exam today. Her chest x-ray is not to appreciably different than previous chest x-rays. Currently on 4 L nasal cannula which she is not on at home. Objective: Vital Signs Temp Pulse Resp BP Pulse Ox 97.5 F L 54 L 19 H 113/55 L 93 03/19/19 08:00 03/19/19 08:00 03/19/19 08:00 03/19/19 08:00 03/19/19 08:00 Oxygen Flow Rate (L/min) 4 Oxygen Delivery Method Nasal Cannula Weight: 164 lb Body Mass Index (BMI) 30.5 Intake and Output for Last 24 Hours 03/17/19 03/18/19 03/19/19 23:59 23:59 23:59 Intake Total 360 / 360 1485.5 / 1725.5 744.50 / 744.50 Output Total 1825 / 1825 800 / 2500 1700 / 1700 Balance -1465 / -1465 685.5 / -774.5 -955.50 / -955.50 General: Awake, Alert, Oriented x 3 HEENT: PERRL, EOMI, Sclera Non Icteric Neck: Supple, Good ROM, No Lymph Node Enlargement Lungs: Rales - Carlos Bases Cardiovascular: Regular Rhythm, Normal S2, No Rubs, No Gallops Murmur Murmur: Grade 2/6, Holosystolic Vascular: No Carotid Bruits, Normal Femoral Pulses, Normal Radial Pulses, Normal Dorsalis Pedal Pulse, Normal Posterior Tibial Pulses Abdomen: Bowel Sounds Present, Soft, Non Tender, No HSM, No Organomegaly Extremities: No Cyanosis, No Clubbing, No edema Neurological: No Focal Motor or Sensory Deficit 03/19/19 00:40: WBC 9.0, RBC 3.99 L, Hgb 11.7 L, Hct 35.1 L, MCV 88.0, MCH 29.3, MCHC 33.3, Plt Count 234, MPV 10.7, Immature Gran % (Auto) 0.400, Neut % (Auto) 76.3 H, Lymph % (Auto) 15.7 L, [place] % (Auto) 5.5, Eos % (Auto) 1.8, Baso % (Auto) 0.3, Absolute Neuts (auto) 6.9, Nucleated RBC % 0 03/19/19 00:40: Sodium 139, Potassium 4.0, Chloride 107, Carbon Dioxide 27.0, Anion Gap 5, BUN 24 H, Creatinine 0.96, Est GFR (MDRD) Af Amer 74, Est GFR (MDRD) Non-Af 61, BUN/Creatinine Ratio 24.9 H, Glucose 144 H, Calcium 8.7, Troponin I 0.523 H 03/19/19 04:00: WBC 6.8, RBC 3.41 L, Hgb 10.1 L, Hct 30.3 L, MCV 88.9, MCH 29.6, MCHC 33.3, Plt Count 185, MPV 11.1 03/19/19 04:00: Sodium 139, Potassium 4.3, Chloride 107, Carbon Dioxide 28.0, Anion Gap 4 L, BUN 25 H, Creatinine 0.86, Est GFR (MDRD) Af Amer 84, Est GFR (MDRD) Non-Af 70, BUN/Creatinine Ratio 29.1 H, Glucose 130 H, Calcium 7.9 L, Total Bilirubin 0.50, Triglycerides 122, Cholesterol 99, LDL Cholesterol 40, VLDL Cholesterol 24, HDL Cholesterol 35 L 03/19/19 04:00: Troponin I 0.419 H 03/19/19 04:00: B-Natriuretic Peptide 622.8 H 03/19/19 06:54: Troponin I 0.431 H Rhythm: EKG: Sinus bradycardia, old inferior and possible anteroseptal wall myocardial infarction. No acute changes. ECHO: EF of 50%, RVSP of approximately 32 mmHg, 1-2+ mitral vegetation. Stress Test: Cardiac Cath: PCI: CT Surgery: Holter monitor: EPS: PPM: CXR: Chest CT Scan: Medical Necessity - Tobacco Use Smoking Status: Current every day smoker Tobacco Use: Cigarettes Assessment/Plan 1. Coronary artery disease: The patient presented with recurrent anginal symptoms as well as non-ST elevation myocardial infarction. She underwent repeat catheterization yesterday followed by angioplasty and stenting of her RCA and balloon angioplasty only of her ostium posterior lateral branch. Subsequent to this the patient had an episode of sinus pause followed by a junctional escape rhythm which was relatively asymptomatic. She reverted back to sinus bradycardia. She had no chest pain symptoms during that time. Patient is on both high-dose beta-declan therapy, as well as amiodarone for her previous atrial fibrillation. I recommend decreasing her Lopressor back down to 50 mg p.o. twice daily, and continuing amiodarone 200 mg a day. In addition I recommend Lasix 40 mg IV x1 given what appears to be some mild congestive heart failure subsequent to her catheterization and post catheterization hydration therapy. Would also recommend starting her on Lasix 40 mg p.o. daily for her mild LV dysfunction, and mild pulmonary hypertension. I would recommend trying to wean the patient off of oxygen this afternoon and if this is successful, would then recommend discharge home versus keeping her 1 more day. 2. Atrial fibrillation: The patient is currently in normal sinus rhythm and is maintained on this with amiodarone. She has a history of COPD and sees Dr. Marx and recently has been consulted by Dr. Medina for her shortness of breath and hypoxemia. May consider a 6-minute walk test prior to discharge home to see if she requires home oxygen therapy. Would recommend restarting Xarelto on Friday. Her right groin is clean/dry/intact and she is currently in sinus rhythm. 3. Tobacco cessation: I strongly encouraged the patient to refrain from tobacco products. 4. Hyperlipidemia: Continue Lipitor therapy. Repeat lipid profile after cardiac rehab. 5. Provided the patient is off of oxygen and does not require home oxygen, and has no further sinus pauses, she may be discharged home this afternoon otherwise keep 1 more day. Code Visit Inpatient E&M: 37888 Subs Hosp L2
--- NOTE | 2019-03-19 09:21 | CASEMGMT ---
RN CM Assessment Presentation: Respiratory Failure Intro role of CM and purpose of RN CM assessment to patient in room. Pt is awake, alert and able to participate in assessment. Demographics, PCP and Pharmacy verified. Pt states she is independent at home, lives with her daughter. States she is independent with ADL and IADL. PCP: Dr. Morgan Hayes Specialists: Dr. Treviño Pharmacy: [facility] Insurance: [employer] Prescription Benefit: yes LNOK: Daughter Argelia Puri Living Arrangements: Lives in 3 story home. Bedrooms on second floor, and attic area on 3rd floor that pt uses as her area. States all stairways have hand rails and though slow, pt states she is able to manage stairs @ home. Daughter is available to assist. Transportation: drives, or daughter drives DME: [employer] only. If Home oxygen is needed - [facility] first choice. See green sheet on front of chart. HHC/SNF: none Patient DC goals: Home with family DC PLAN: Home with family. May need home oxygen testing prior to discharge. Hailee DHILLON RN ACM
[2019-03-19] MEDS: 0.9% Saline Lock 10 ML Syringe IV (09:45)
[2019-03-19] MEDS: Furosemide 40 MG/4 ML Vial IV ×2 (09:45→18:27)
[2019-03-19] MEDS: Citalopram 20 MG Tablet 40 MG PO (09:45)
[2019-03-19] MEDS: Aspirin E.C. 81 MG Tablet PO (09:46)
[2019-03-19] MEDS: Isosorbide Mononitrate 60 MG Tablet PO ×2 (09:46→22:01)
[2019-03-19] MEDS: Amiodarone 200 MG Tablet PO (09:46)
[2019-03-19] MEDS: Famotidine 20 MG Tablet PO (09:46)
[2019-03-19] MEDS: Clopidogrel Bisulfate 75 MG Tablet PO (09:46)
[2019-03-19] MEDS: Metoprolol Tartrate 50 MG Tablet PO ×2 (09:51→22:00)
[2019-03-19] MEDS: Lisinopril 40 MG Tablet PO ×2 (11:08→22:01)
[2019-03-19] MEDS: amLODIPine 10 MG Tablet PO (11:08)
--- NOTE | 2019-03-19 19:05 | PCM.PROGNOTE ---
Subjective: Patient was seen and examined today, she remains on nasal cannula O2 at 2 L, pulmonary medicine saw the patient today in consultation. Patient's cardiac medication was adjusted by cardiology. - Physical Exam Vitals/I&O's: Vital Signs Temp Pulse Resp BP Pulse Ox 98.5 F 60 24 H 115/52 L 93 03/19/19 18:00 03/19/19 18:00 03/19/19 18:00 03/19/19 18:00 03/19/19 18:00 Oxygen Flow Rate (L/min) 2 Oxygen Delivery Method Nasal Cannula Weight: 74.389 kg Body Mass Index (BMI) 30.5 Intake and Output for Last 24 Hours 03/17/19 03/18/19 03/19/19 23:59 23:59 23:59 Intake Total 360 / 360 1485.5 / 1725.5 1364.50 / 1364.50 Output Total 1825 / 1825 800 / 2500 2800 / 2800 Balance -1465 / -1465 685.5 / -774.5 -1435.50 / -1435.50 General: Alert, Oriented x3, Cooperative, No apparent distress, Well developed, Well nourished HEENT: Atraumatic, PERRLA, EOMI, Normocephalic Oral: Moist Mucosa Neck: Supple, Trachea Midline, Thyroid Normal Size and Texture Lungs: Normal air movement, Wheezes - Scattered expiratory wheezes are noted over the right lung field Cardiovascular: PMI Normal, Irregular Rate, No rub noted Abdomen: Bowel Sounds Present, Soft, Non Tender, Non-Distended Extremities: No clubbing, No cyanosis, No edema, Capillary Refill Less than 3 Seconds Skin: No rashes, No breakdown Musculoskeletal: No Tenderness to Palpation of Joints or Extremities Neurological: Cranial nerves II-XII grossly intact, Neuro grossly intact, Sensory exam intact to light touch and pain Psych/Mental Status: Normal Affect, Appropriate, Alert and oriented to time, place, person, mood and affect Laboratory Results 03/19/19 00:40: WBC 9.0, RBC 3.99 L, Hgb 11.7 L, Hct 35.1 L, MCV 88.0, MCH 29.3, MCHC 33.3, RDW Std Deviation 44.2 H, RDW Coeff of Natalie 13.9, Plt Count 234, MPV 10.7, Immature Gran % (Auto) 0.400, Neut % (Auto) 76.3 H, Lymph % (Auto) 15.7 L, [place] % (Auto) 5.5, Eos % (Auto) 1.8, Baso % (Auto) 0.3, Absolute Neuts (auto) 6.9, Absolute Lymphs (auto) 1.42, Nucleated RBC % 0 03/19/19 00:40: Sodium 139, Potassium 4.0, Chloride 107, Carbon Dioxide 27.0, Anion Gap 5, BUN 24 H, Creatinine 0.96, Estim Creat Clear Calc 43.13, Est GFR (MDRD) Af Amer 74, Est GFR (MDRD) Non-Af 61, BUN/Creatinine Ratio 24.9 H, Glucose 144 H, Calcium 8.7, Troponin I 0.523 H 03/19/19 04:00: WBC 6.8, RBC 3.41 L, Hgb 10.1 L, Hct 30.3 L, MCV 88.9, MCH 29.6, MCHC 33.3, RDW Std Deviation 45.1 H, RDW Coeff of Natalie 14.0, Plt Count 185, MPV 11.1 03/19/19 04:00: Sodium 139, Potassium 4.3, Chloride 107, Carbon Dioxide 28.0, Anion Gap 4 L, BUN 25 H, Creatinine 0.86, Estim Creat Clear Calc 48.14, Est GFR (MDRD) Af Amer 84, Est GFR (MDRD) Non-Af 70, BUN/Creatinine Ratio 29.1 H, Glucose 130 H, Calcium 7.9 L, Total Bilirubin 0.50, AST 30, ALT 51, Alkaline Phosphatase 145 H, Total Protein 5.8 L, Albumin 2.9 L, Globulin 2.9, Albumin/Globulin Ratio 1.0, Triglycerides 122, Cholesterol 99, LDL Cholesterol 40, VLDL Cholesterol 24, HDL Cholesterol 35 L 03/19/19 04:00: Troponin I 0.419 H 03/19/19 04:00: B-Natriuretic Peptide 622.8 H 03/19/19 06:54: Troponin I 0.431 H Current Medications Acetaminophen (Tylenol) 650 mg PO Q6H PRN PRN PRN Reason: Pain Score 1-3/10 Hydrocodone Bitart/Acetaminophen ([place] 5mg-325mg) 1 - 2 tablet PO Q4H PRN PRN PRN Reason: Pain Score 4-10/10 Al Hydroxide/Mg Hydroxide (Mylanta Ii) 15 - 30 ml PO Q4H PRN PRN PRN Reason: INDIGESTION Albuterol Sulfate (Ventolin Aerosols) 2.5 mg INHALATION Q2H PRN PRN PRN Reason: dyspnea, wheezing Amiodarone HCl (Cordarone) 200 mg PO DAILY [facility] Last Admin: 03/19/19 09:46 Dose: 200 mg Documented by: Amitriptyline HCl (Elavil) 75 mg PO QHS [facility] Last Admin: 03/18/19 21:38 Dose: 75 mg Documented by: Amlodipine Besylate (Norvasc) 10 mg PO DAILY [facility] Last Admin: 03/19/19 11:08 Dose: 10 mg Documented by: Aspirin (Ecotrin) 81 mg PO DAILY@0800 [facility] Last Admin: 03/19/19 09:46 Dose: 81 mg Documented by: Atorvastatin Calcium (Lipitor) 40 mg PO QHS [facility] Last Admin: 03/18/19 21:38 Dose: 40 mg Documented by: Atropine Sulfate () 0.5 mg IV UD PRN PRN Reason: HR <50 bpm Citalopram Hydrobromide (Celexa) 40 mg PO DAILY [facility] Last Admin: 03/19/19 09:45 Dose: 40 mg Documented by: Clopidogrel Bisulfate (Plavix) 75 mg PO DAILY [facility] Last Admin: 03/19/19 09:46 Dose: 75 mg Documented by: Famotidine (Pepcid) 20 mg PO DAILY [facility] Last Admin: 03/19/19 09:46 Dose: 20 mg Documented by: Furosemide (Lasix) 40 mg PO DAILY [facility] Glucagon () 1 mg IM .X1 PRN PRN Reason: Hypoglycemia Heparin Sodium (Beef Lung) (Heparin 500 Unit/5 Ml (100/Ml)) 500 unit IV UD PRN PRN Reason: HEPARIN FLUSH Hydralazine HCl (Apresoline Iv) 10 mg IV Q4H PRN PRN PRN Reason: SBP > 160 Dextrose (Dextrose 10%-Water) 250 mls @ 999 mls/hr IV .Q16M PRN; Protocol PRN Reason: HYPOGLYCEMIA Sodium Chloride () 250 mls @ 15 mls/hr IV .[id number] PRN PRN Reason: Saline Flush Last Infusion: 03/19/19 01:14 Dose: 0 mls/hr Documented by: Sodium Chloride () 250 mls @ 15 mls/hr IV .[id number] PRN PRN Reason: Additional IVPB Infusion Last Infusion: 03/19/19 01:14 Dose: 0 mls/hr Documented by: Sodium Chloride () 1,000 mls @ 0 mls/hr IV .Q0M [facility] Last Infusion: 03/18/19 12:40 Dose: Infused Documented by: Isosorbide Mononitrate (Imdur) 60 mg PO BID [facility] Last Admin: 03/19/19 09:46 Dose: 60 mg Documented by: Lidocaine (Lidoderm Patch) 1 patch TOPICAL DAILY [facility]; Protocol Last Admin: 03/19/19 09:47 Dose: Not Given Documented by: Lisinopril (Zestril) 40 mg PO BID [facility] Last Admin: 03/19/19 11:08 Dose: 40 mg Documented by: Magnesium Hydroxide (Milk Of Magnesia) 30 ml PO DAILY PRN PRN Reason: Constipation Metoclopramide HCl (Reglan) 5 mg IV Q6H PRN PRN PRN Reason: NAUSEA/VOMITING Metoprolol Tartrate (Lopressor (Beta Alyssa)) 50 mg PO BID [facility] Last Admin: 03/19/19 09:51 Dose: 50 mg Documented by: Nitroglycerin (Nitrostat) 0.4 mg SUBLINGUAL Q5M PRN PRN Reason: CARDIAC/CHEST PAIN Nutritional Formula (Lactose Free) (Ensure Enlive) 120 ml PO 4X/DAY [facility] Last Admin: 03/19/19 17:01 Dose: 120 ml Documented by: Ondansetron HCl (Zofran) 4 mg IV Q8H PRN PRN PRN Reason: NAUSEA/VOMITING Pramipexole Dihydrochloride (Mirapex) 1 mg PO QHS [facility] Last Admin: 03/18/19 21:38 Dose: 1 mg Documented by: Sodium Chloride () 10 - 40 ml IV UD PRN PRN Reason: SALINE FLUSH Last Admin: 03/19/19 09:45 Dose: 10 ml Documented by: Sodium Chloride () 500 ml IV BOLUS PRN PRN Reason: VASO-VAGAL PROTOCOL Medical Necessity - Tobacco Use Smoking Status: Current every day smoker Tobacco Use: Cigarettes Assessment/Plan All Active Problems (Last Updated 03/18/19 @ 17:30 by Anuja Gaviria) Unstable angina pectoris due to coronary arteriosclerosis (Resolved) History of coronary artery stent placement (Resolved 03/18/19) Chest pain (Resolved) Angina pectoris (Resolved) Atrial fibrillation with RVR (Resolved) Hypokalemia (Resolved) Preop cardiovascular exam (Resolved) #1 unstable angina-continue medications per cardiology #2 occlusive coronary artery disease right coronary artery-postop day 1 balloon angioplasty with drug-eluting stent proximal PDA and PTCA and drug-eluting stent placement distal right coronary artery #3 essential hypertension #4 hyperlipidemia #5 chronic atrial fib #6 peripheral artery disease #7 acute diastolic CHF-continue IV Lasix #8 acute hypoxic respiratory failure-probably in part secondary to congestive heart failure and probably atelectasis-continue to monitor patient, pulmonary medicine is seeing patient Code Visit Inpatient E&M: 64678 Subs Hosp L2
[2019-03-19] MEDS: HYDROcodone Bitartrate/Apap 5/325 Tablet PO (19:36)
[2019-03-19] MEDS: Amitriptyline 25 MG Tablet 75 MG PO (21:59)
[2019-03-19] MEDS: Pramipexole Di-HCl 1 MG Tablet PO (22:00)
[2019-03-19] MEDS: Atorvastatin Calcium 40 MG Tablet PO (22:01)
[2019-03-20] VITALS (27 sets, daily range): BP systolic 105–143; BP diastolic 37–106; PULSE 48–79; RESP 12–35; TEMP 36.3–36.7; O2SAT 86–100
--- NOTE | 2019-03-20 06:09 | PN.CARD_ITS ---
Subjectve: Patient seen and evaluated. Appears to be doing better today. Had a more restful night. Objective: Vital Signs Temp Pulse Resp BP Pulse Ox 97.6 F L 51 L 15 130/70 H 96 03/20/19 04:00 03/20/19 05:00 03/20/19 05:00 03/20/19 05:00 03/20/19 05:00 Oxygen Flow Rate (L/min) 2 Oxygen Delivery Method Bi-pap Weight: 164 lb Body Mass Index (BMI) 30.5 Intake and Output for Last 24 Hours 03/18/19 03/19/19 03/20/19 23:59 23:59 23:59 Intake Total 1485.5 / 1725.5 1364.50 / 1604.50 240 / 240 Output Total 800 / 2500 2800 / 3200 400 / 400 Balance 685.5 / -774.5 -1435.50 / -1595.50 -160 / -160 General: Awake, Alert, Oriented x 3 HEENT: PERRL, EOMI, Sclera Non Icteric Neck: Supple, Good ROM, No Lymph Node Enlargement Lungs: Clear to auscultation Cardiovascular: Regular Rhythm, Normal S1, Normal S2, No Murmurs, No Rubs, No Gallops Vascular: No Carotid Bruits, Normal Femoral Pulses, Normal Radial Pulses, Normal Dorsalis Pedal Pulse, Normal Posterior Tibial Pulses Abdomen: Bowel Sounds Present, Soft, Non Tender, No HSM, No Organomegaly Extremities: No Cyanosis, No Clubbing, No edema Musculoskeletal: No Erythema Skin: No Rashes Lymphatic: No Lymph Node Enlargement Neurological: No Focal Motor or Sensory Deficit Psych/Mental Status: Appropriate 03/19/19 04:00: B-Natriuretic Peptide 622.8 H 03/19/19 06:54: Troponin I 0.431 H Rhythm: EKG: ECHO: Stress Test: Cardiac Cath: PCI: CT Surgery: Holter monitor: EPS: PPM: CXR: Chest CT Scan: Medical Necessity - Tobacco Use Smoking Status: Current every day smoker Tobacco Use: Cigarettes Assessment/Plan 1. Chest discomfort * Patient presented with recurrent chest discomfort. The above is suggestive of her previous angina. She has had previous angioplasty and stenting as well as a stress test in September 2018 which did not demonstrate any obvious ischemia. Her cardiac catheterization demonstrated the following. Normal left main coronary artery Left anterior descending artery with mild disease First diagonal vessel with 30% proximal ostial stenosis Second diagonal vessel with ostial 50% stenosis Ramus intermedius with mild disease Left circumflex artery which is totally occluded Dominant large right coronary artery with previous stenting involving the proximal vessel which is patent, the mid vessel which is patent, the distal PDA which is also patent. There is an area between the mid and distal PDA with an 80% stenotic lesion. The origin of the posterolateral branch also has a probable 70 to 80% stenosis with poststenotic aneurysmal area. Left ventricular function appears to be fair with an estimated EF of 50%. Postprocedure will resume aspirin, clopidogrel, and Xarelto. She underwent angioplasty and stenting of the posterior descending artery as well as the posterolateral vessel. Yesterday she did develop a 9-second pause for which her beta-declan dose was reduced to 50 mg Lopressor twice daily together with the amiodarone. * She did have an episode last night with a 5-second pause which was asymptomatic. I would recommend discontinuing the beta-declan but continuing the amiodarone for now. I would like us to observe her for at least another day. * 2. Hypertension * Patient's blood pressure appears to be under good control and I would not recommend we make any major changes. * 3. Hyperlipidemia * Continue with aggressive risk factor modification. * 4. Peripheral vascular disease * Patient has known peripheral vascular disease. Unfortunately she continues to use tobacco products. She has been admonished about the above. * 5. Atrial fibrillation * Patient has atrial fibrillation with a controlled ventricular response rate. * Will resume anticoagulation with Xarelto after groin is healed * disContinue beta-declan for rate control due to the bradycardia arrhythmia. * * Thank you for allowing me to participate in the care of your patient. Please don't hesitate to call if any issues arise
--- NOTE | 2019-03-20 06:20 | PCM.PN.INT ---
Subjective: The patient was seen and examined at the bedside this morning. Events from the last 24 hours have been reviewed. The patient is currently afebrile and hemodynamically stable. The patient did receive IV Lasix on 2 occasions yesterday. Her creatinine remains stable this morning. She is currently documented to be overall net -2.3 L for the hospital admission. The patient yesterday was able to be weaned down to 2 L/min. Overnight, she did tolerate BiPAP therapy. However, she once again experienced bradycardic episodes with a sinus pause. The patient was already evaluated by cardiology this morning and her beta-declan was discontinued. Objective: The patient's most recent lab work, culture data and imaging studies have all been personally reviewed. General: - - Sleeping but arousable to verbal stimulation. HEENT: Atraumatic, PERRLA, Normocephalic Oral: No Gingival or Mucosal Lesions/ Ulcerations Neck: Supple, No Nodes, Trachea Midline Lungs: No rhonchi, No wheeze, No rales, Diminished Cardiovascular: Normal S1, Normal S2, No murmurs, Bradycardic Abdomen: Bowel Sounds Present, Soft, Non Tender Extremities: No clubbing, No cyanosis Skin: No breakdown Musculoskeletal: No Tenderness to Palpation of Joints or Extremities Lymphatic: No Cervical, Supraclavicular, or Inguinal Adenopathy Neurological: Neuro grossly intact Psych/Mental Status: Normal Affect, Appropriate Vital Signs Temp Pulse Resp BP Pulse Ox 97.6 F L 48 L 15 116/52 L 98 03/20/19 04:00 03/20/19 06:00 03/20/19 06:00 03/20/19 06:00 03/20/19 06:00 Oxygen Flow Rate (L/min) 2 Oxygen Delivery Method Bi-pap Weight: 164 lb Body Mass Index (BMI) 30.5 Intake and Output for Last 24 Hours 03/18/19 03/19/19 03/20/19 23:59 23:59 23:59 Intake Total 1485.5 / 1725.5 1364.50 / 1604.50 240 / 240 Output Total 800 / 2500 2800 / 3200 400 / 400 Balance 685.5 / -774.5 -1435.50 / -1595.50 -160 / -160 Labs (Last 48 Hours) 03/18/19 03/19/19 03/19/19 08:33 00:40 00:40 WBC 9.0 RBC 3.99 L Hgb 11.7 L Hct 35.1 L MCV 88.0 MCH 29.3 MCHC 33.3 RDW Std Deviation 44.2 H RDW Coeff of Natalie 13.9 Plt Count 234 MPV 10.7 Immature Gran % (Auto) 0.400 Neut % (Auto) 76.3 H Lymph % (Auto) 15.7 L [place] % (Auto) 5.5 Eos % (Auto) 1.8 Baso % (Auto) 0.3 Absolute Neuts (auto) 6.9 Absolute Lymphs (auto) 1.42 Nucleated RBC % 0 Activated Clotting Time 153 H Sodium 139 Potassium 4.0 Chloride 107 Carbon Dioxide 27.0 Anion Gap 5 BUN 24 H Creatinine 0.96 Estim Creat Clear Calc 43.13 Est GFR (MDRD) Af Amer 74 Est GFR (MDRD) Non-Af 61 BUN/Creatinine Ratio 24.9 H Glucose 144 H Calcium 8.7 Total Bilirubin AST ALT Alkaline Phosphatase Troponin I 0.523 H B-Natriuretic Peptide Total Protein Albumin Globulin Albumin/Globulin Ratio Triglycerides Cholesterol LDL Cholesterol VLDL Cholesterol HDL Cholesterol 03/19/19 03/19/19 03/19/19 04:00 04:00 04:00 WBC 6.8 RBC 3.41 L Hgb 10.1 L Hct 30.3 L MCV 88.9 MCH 29.6 MCHC 33.3 RDW Std Deviation 45.1 H RDW Coeff of Natalie 14.0 Plt Count 185 MPV 11.1 Immature Gran % (Auto) Neut % (Auto) Lymph % (Auto) [place] % (Auto) Eos % (Auto) Baso % (Auto) Absolute Neuts (auto) Absolute Lymphs (auto) Nucleated RBC % Activated Clotting Time Sodium 139 Potassium 4.3 Chloride 107 Carbon Dioxide 28.0 Anion Gap 4 L BUN 25 H Creatinine 0.86 Estim Creat Clear Calc 48.14 Est GFR (MDRD) Af Amer 84 Est GFR (MDRD) Non-Af 70 BUN/Creatinine Ratio 29.1 H Glucose 130 H Calcium 7.9 L Total Bilirubin 0.50 AST 30 ALT 51 Alkaline Phosphatase 145 H Troponin I 0.419 H B-Natriuretic Peptide Total Protein 5.8 L Albumin 2.9 L Globulin 2.9 Albumin/Globulin Ratio 1.0 Triglycerides 122 Cholesterol 99 LDL Cholesterol 40 VLDL Cholesterol 24 HDL Cholesterol 35 L 03/19/19 03/19/19 04:00 06:54 WBC RBC Hgb Hct MCV MCH MCHC RDW Std Deviation RDW Coeff of Natalie Plt Count MPV Immature Gran % (Auto) Neut % (Auto) Lymph % (Auto) [place] % (Auto) Eos % (Auto) Baso % (Auto) Absolute Neuts (auto) Absolute Lymphs (auto) Nucleated RBC % Activated Clotting Time Sodium Potassium Chloride Carbon Dioxide Anion Gap BUN Creatinine Estim Creat Clear Calc Est GFR (MDRD) Af Amer Est GFR (MDRD) Non-Af BUN/Creatinine Ratio Glucose Calcium Total Bilirubin AST ALT Alkaline Phosphatase Troponin I 0.431 H B-Natriuretic Peptide 622.8 H Total Protein Albumin Globulin Albumin/Globulin Ratio Triglycerides Cholesterol LDL Cholesterol VLDL Cholesterol HDL Cholesterol Clinical Impression(s) from Imaging Studies Chest X-Ray 03/17/19 14:30 IMPRESSION: Unfavorable change. CHF with interstitial edema and trace effusions. Electronically Signed: Hugo Spaulding MD ([place]) at 15:00 EST , Service support , Chest X-Ray 03/19/19 00:42 IMPRESSION: Stable cardiomegaly Development of new bilateral lower lobe infiltrates and atelectasis likely pneumonia Improving pulmonary venous congestion Small bilateral pleural effusions Electronically Signed: Sathish Yoo at 4:05 EST Tel , Service support , Medical Necessity - Tobacco Use Smoking Status: Current every day smoker Tobacco Use: Cigarettes Assessment/Plan All Active Problems (Last Updated 03/18/19 @ 17:30 by Anuja Gaviria) Unstable angina pectoris due to coronary arteriosclerosis (Resolved) History of coronary artery stent placement (Resolved 03/18/19) Chest pain (Resolved) Angina pectoris (Resolved) Atrial fibrillation with RVR (Resolved) Hypokalemia (Resolved) Preop cardiovascular exam (Resolved) RECOMMENDATIONS: 1. Continue to wean supplemental oxygen to maintain saturations at or above 90%. 2. Encourage incentive spirometer use and mobilize patient as tolerated. 3. Continue empiric BiPAP therapy with naps and nightly. 4. Continue attempts at diuresis. 5. Perform walking oximetry study prior to consideration for discharge home. 6. Outpatient pulmonary follow-up within 2 weeks of discharge is recommended. IMPRESSIONS: 1. Acute Hypoxemic Respiratory Failure The patient has had a supplemental oxygen requirement over the course of the hospitalization and did eventually require BiPAP initiation. Her need for overnight BiPAP support was likely secondary to known obstructive sleep apnea, for which she is noncompliant with use of nocturnal Pap therapy. Her plain film chest x-ray revealed findings consistent with effusions and atelectasis, as opposed to focal infiltrates. The patient has not demonstrated any systemic signs of infection and does not currently have a productive cough. Therefore, antibiotics were never indicated. BNP was elevated, nevertheless. The patient's oxygen requirement decreased in the setting of IV diuresis. I would recommend continuing attempts at volume optimization with diuretic therapy. Wean supplemental oxygen and encourage incentive spirometer use. Ideally, the patient should follow-up in the pulmonary medicine clinic within 2 weeks of discharge from the hospital. 2. Continuous tobacco dependency Tobacco cessation counseling was provided. Nicotine replacement therapy can be offered to the patient while admitted to the hospital. I would recommend that repeat pulmonary function studies be obtained on an outpatient basis. 3. Atrial fibrillation/hypertension/hyperlipidemia Complicates care, management, recovery and prognosis. Continue medical management per cardiology recommendations. This note was generated with [employer] dictation software. It may contain incorrect words, spelling, and punctuation that were not noted in checking the note before signing. Code Visit Inpatient E&M: 63321 Subs Hosp L2
[2019-03-20] MEDS: Citalopram 20 MG Tablet 40 MG PO (09:52)
[2019-03-20] MEDS: Lisinopril 40 MG Tablet PO ×2 (09:52→21:12)
[2019-03-20] MEDS: Lidocaine 5% Patch 1 PATCH TOPICAL (09:53)
[2019-03-20] MEDS: Famotidine 20 MG Tablet PO (09:55)
[2019-03-20] MEDS: Furosemide 40 MG Tablet PO (09:55)
[2019-03-20] MEDS: amLODIPine 10 MG Tablet PO (09:56)
[2019-03-20] MEDS: Isosorbide Mononitrate 60 MG Tablet PO ×2 (09:56→21:11)
[2019-03-20] MEDS: Amiodarone 200 MG Tablet PO (09:56)
[2019-03-20] MEDS: Aspirin E.C. 81 MG Tablet PO (09:58)
--- NOTE | 2019-03-20 10:00 | EKG12_ITS ---
Test Reason : AM Blood Pressure : / mmHG Vent. Rate : 049 BPM Atrial Rate : 049 BPM P-R Int : 164 ms QRS Dur : 110 ms QT Int : 550 ms P-R-T Axes : -01 018 -37 degrees QTc Int : 496 ms Marked sinus bradycardia Nonspecific T wave abnormality Prolonged QT Abnormal ECG Confirmed by GILBERT JEAN-BAPTISTE, FRANCIS ([id number]), pictures editor HARMONY CORRIGAN ([id number]) on 03/24/2019 12:57:46 PM Referred By: Fernanda Puri Confirmed By:FRANCIS HUNT MD
[2019-03-20] MEDS: Clopidogrel Bisulfate 75 MG Tablet PO (10:03)
--- NOTE | 2019-03-20 17:55 | PN_ITS ---
Subjective: Patient was seen and examined today in ICU, she remains on nasal cannula oxygen at this time. Patient has no complaints of any chest pain or shortness of breath. Patient's beta-declan today was discontinued by cardiology due to sinus pauses. - Physical Exam Vitals/I&O's: Vital Signs Temp Pulse Resp BP Pulse Ox 98.1 F 62 22 H 142/68 H 98 03/20/19 12:00 03/20/19 17:43 03/20/19 17:00 03/20/19 17:00 03/20/19 17:43 Oxygen Flow Rate (L/min) 4 Oxygen Delivery Method Nasal Cannula Weight: 74.389 kg Body Mass Index (BMI) 30.5 Intake and Output for Last 24 Hours 03/18/19 03/19/19 03/20/19 23:59 23:59 23:59 Intake Total 1485.5 / 1725.5 1364.50 / 1604.50 840 / 840 Output Total 800 / 2500 2800 / 3200 850 / 850 Balance 685.5 / -774.5 -1435.50 / -1595.50 -10 / -10 General: Alert, Oriented x3, Cooperative, No apparent distress, Well developed HEENT: Atraumatic, PERRLA, EOMI, Normocephalic Oral: Moist Mucosa Neck: Supple, Trachea Midline, Thyroid Normal Size and Texture Lungs: Clear to auscultation, Normal air movement, No rhonchi, No wheeze, No rales Cardiovascular: PMI Normal, Irregular Rate, No rub noted, No Gallop Abdomen: Bowel Sounds Present, Soft, Non Tender, Non-Distended, No hernias noted Extremities: No clubbing, No cyanosis, No edema, Capillary Refill Less than 3 Seconds Skin: No rashes, No breakdown Musculoskeletal: No Tenderness to Palpation of Joints or Extremities Neurological: Cranial nerves II-XII grossly intact, Neuro grossly intact, Sensory exam intact to light touch and pain, Coordination normal Psych/Mental Status: Normal Affect, Appropriate, Alert and oriented to time, place, person, mood and affect Current Medications Acetaminophen (Tylenol) 650 mg PO Q6H PRN PRN PRN Reason: Pain Score 1-3/10 Hydrocodone Bitart/Acetaminophen ([place] 5mg-325mg) 1 - 2 tablet PO Q4H PRN PRN PRN Reason: Pain Score 4-10/10 Last Admin: 03/19/19 19:36 Dose: 2 tablet Documented by: Al Hydroxide/Mg Hydroxide (Mylanta Ii) 15 - 30 ml PO Q4H PRN PRN PRN Reason: INDIGESTION Albuterol Sulfate (Ventolin Aerosols) 2.5 mg INHALATION Q2H PRN PRN PRN Reason: dyspnea, wheezing Amiodarone HCl (Cordarone) 200 mg PO DAILY [facility] Last Admin: 03/20/19 09:56 Dose: 200 mg Documented by: Amitriptyline HCl (Elavil) 75 mg PO QHS [facility] Last Admin: 03/19/19 21:59 Dose: 75 mg Documented by: Amlodipine Besylate (Norvasc) 10 mg PO DAILY [facility] Last Admin: 03/20/19 09:56 Dose: 10 mg Documented by: Aspirin (Ecotrin) 81 mg PO DAILY@0800 [facility] Last Admin: 03/20/19 09:58 Dose: 81 mg Documented by: Atorvastatin Calcium (Lipitor) 40 mg PO QHS [facility] Last Admin: 03/19/19 22:01 Dose: 40 mg Documented by: Atropine Sulfate () 0.5 mg IV UD PRN PRN Reason: HR <50 bpm Citalopram Hydrobromide (Celexa) 40 mg PO DAILY [facility] Last Admin: 03/20/19 09:52 Dose: 40 mg Documented by: Clopidogrel Bisulfate (Plavix) 75 mg PO DAILY [facility] Last Admin: 03/20/19 10:03 Dose: 75 mg Documented by: Famotidine (Pepcid) 20 mg PO DAILY [facility] Last Admin: 03/20/19 09:55 Dose: 20 mg Documented by: Furosemide (Lasix) 40 mg PO DAILY [facility] Last Admin: 03/20/19 09:55 Dose: 40 mg Documented by: Glucagon () 1 mg IM .X1 PRN PRN Reason: Hypoglycemia Heparin Sodium (Beef Lung) (Heparin 500 Unit/5 Ml (100/Ml)) 500 unit IV UD PRN PRN Reason: HEPARIN FLUSH Hydralazine HCl (Apresoline Iv) 10 mg IV Q4H PRN PRN PRN Reason: SBP > 160 Dextrose (Dextrose 10%-Water) 250 mls @ 999 mls/hr IV .Q16M PRN; Protocol PRN Reason: HYPOGLYCEMIA Sodium Chloride () 250 mls @ 15 mls/hr IV .[id number] PRN PRN Reason: Saline Flush Last Infusion: 03/19/19 19:44 Dose: Infused Documented by: Sodium Chloride () 250 mls @ 15 mls/hr IV .[id number] PRN PRN Reason: Additional IVPB Infusion Last Infusion: 03/19/19 19:43 Dose: Infused Documented by: Sodium Chloride () 1,000 mls @ 0 mls/hr IV .Q0M [facility] Last Infusion: 03/18/19 12:40 Dose: Infused Documented by: Isosorbide Mononitrate (Imdur) 60 mg PO BID [facility] Last Admin: 03/20/19 09:56 Dose: 60 mg Documented by: Lidocaine (Lidoderm Patch) 1 patch TOPICAL DAILY [facility]; Protocol Last Admin: 03/20/19 09:53 Dose: 1 patch Documented by: Lisinopril (Zestril) 40 mg PO BID [facility] Last Admin: 03/20/19 09:52 Dose: 40 mg Documented by: Magnesium Hydroxide (Milk Of Magnesia) 30 ml PO DAILY PRN PRN Reason: Constipation Metoclopramide HCl (Reglan) 5 mg IV Q6H PRN PRN PRN Reason: NAUSEA/VOMITING Nitroglycerin (Nitrostat) 0.4 mg SUBLINGUAL Q5M PRN PRN Reason: CARDIAC/CHEST PAIN Nutritional Formula (Lactose Free) (Ensure Enlive) 120 ml PO 4X/DAY [facility] Last Admin: 03/20/19 13:07 Dose: 120 ml Documented by: Ondansetron HCl (Zofran) 4 mg IV Q8H PRN PRN PRN Reason: NAUSEA/VOMITING Pramipexole Dihydrochloride (Mirapex) 1 mg PO QHS [facility] Last Admin: 03/19/19 22:00 Dose: 1 mg Documented by: Sodium Chloride () 10 - 40 ml IV UD PRN PRN Reason: SALINE FLUSH Last Admin: 03/19/19 09:45 Dose: 10 ml Documented by: Sodium Chloride () 500 ml IV BOLUS PRN PRN Reason: VASO-VAGAL PROTOCOL Medical Necessity - Tobacco Use Smoking Status: Current every day smoker Tobacco Use: Cigarettes Assessment/Plan All Active Problems (Last Updated 03/18/19 @ 17:30 by Anuja Gaviria) Unstable angina pectoris due to coronary arteriosclerosis (Resolved) History of coronary artery stent placement (Resolved 03/18/19) Chest pain (Resolved) Angina pectoris (Resolved) Atrial fibrillation with RVR (Resolved) Hypokalemia (Resolved) Preop cardiovascular exam (Resolved) #1 unstable angina-continue medications per cardiology #2 occlusive coronary artery disease right coronary artery-postop day 2 balloon angioplasty with drug-eluting stent proximal PDA and PTCA and drug-eluting stent placement distal right coronary artery #3 essential hypertension #4 hyperlipidemia #5 chronic atrial fib #6 peripheral artery disease #7 acute diastolic CHF-continue IV Lasix #8 acute hypoxic respiratory failure-probably in part secondary to congestive heart failure and probably atelectasis-continue to monitor patient, pulmonary medicine is seeing patient Code Visit Inpatient E&M: 46479 Subs Hosp L2
[2019-03-20] MEDS: HYDROcodone Bitartrate/Apap 5/325 Tablet PO (21:10)
[2019-03-20] MEDS: Pramipexole Di-HCl 1 MG Tablet PO (21:11)
[2019-03-20] MEDS: Amitriptyline 25 MG Tablet 75 MG PO (21:11)
[2019-03-20] MEDS: Atorvastatin Calcium 40 MG Tablet PO (21:12)
[2019-03-21] VITALS (24 sets, daily range): BP systolic 108–151; BP diastolic 46–96; PULSE 55–69; RESP 12–23; TEMP 36.6–37; O2SAT 90–100
--- NOTE | 2019-03-21 06:34 | PCM.PN.INT ---
Subjective: The patient was seen and examined at the bedside this morning. Events from the last 24 hours have been reviewed. The patient is currently afebrile, hemodynamically stable and maintaining appropriate oxygen saturations on 3 L/min via nasal cannula. The patient tolerated BiPAP overnight. No further sinus pauses were noted overnight. The patient is currently documented to be overall net -2.7 L for the hospital admission. Objective: The patient's most recent lab work, culture data and imaging studies have all been personally reviewed. General: Alert, Cooperative, No apparent distress HEENT: Atraumatic, PERRLA, Normocephalic Oral: No Gingival or Mucosal Lesions/ Ulcerations Neck: Supple, No Nodes, Trachea Midline Lungs: No rhonchi, No wheeze, No rales, Diminished Cardiovascular: Regular rate, Regular Rhythm, Normal S1, Normal S2, No murmurs Abdomen: Bowel Sounds Present, Soft, Non Tender, Non-Distended Extremities: No clubbing, No cyanosis, No edema Skin: No breakdown Musculoskeletal: No Tenderness to Palpation of Joints or Extremities, No Muscle Wasting Lymphatic: No Cervical, Supraclavicular, or Inguinal Adenopathy Neurological: Cranial nerves II-XII grossly intact, Neuro grossly intact Psych/Mental Status: Alert and oriented to time, place, person, mood and affect Vital Signs Temp Pulse Resp BP Pulse Ox 97.8 F 60 19 H 151/52 H 99 03/21/19 00:00 03/21/19 06:00 03/21/19 06:00 03/21/19 06:00 03/21/19 06:00 Oxygen Flow Rate (L/min) [ 4 AMBULATION with Oxygen] Oxygen Flow Rate (L/min) [ 0 AMBULATING on Room Air] Oxygen Flow Rate (L/min) 4 Oxygen Delivery Method Nasal Cannula Weight: 167 lb 1.766 oz Body Mass Index (BMI) 30.5 Intake and Output for Last 24 Hours 03/19/19 03/20/19 03/21/19 23:59 23:59 23:59 Intake Total 1364.50 / 1604.50 840 / 1080 240 / 240 Output Total 2800 / 3200 850 / 950 750 / 750 Balance -1435.50 / -1595.50 -10 / 130 -510 / -510 Labs (Last 48 Hours) 03/19/19 03/19/19 04:00 06:54 Troponin I 0.431 H B-Natriuretic Peptide 622.8 H Clinical Impression(s) from Imaging Studies Chest X-Ray 03/17/19 14:30 IMPRESSION: Unfavorable change. CHF with interstitial edema and trace effusions. Electronically Signed: Hugo Spaulding MD ([place]) at 15:00 EST , Service support , Chest X-Ray 03/19/19 00:42 IMPRESSION: Stable cardiomegaly Development of new bilateral lower lobe infiltrates and atelectasis likely pneumonia Improving pulmonary venous congestion Small bilateral pleural effusions Electronically Signed: Sathish Yoo at 4:05 EST Tel , Service support , Medical Necessity - Tobacco Use Smoking Status: Current every day smoker Tobacco Use: Cigarettes Assessment/Plan All Active Problems (Last Updated 03/18/19 @ 17:30 by Anuja Gaviria) Unstable angina pectoris due to coronary arteriosclerosis (Resolved) History of coronary artery stent placement (Resolved 03/18/19) Chest pain (Resolved) Angina pectoris (Resolved) Atrial fibrillation with RVR (Resolved) Hypokalemia (Resolved) Preop cardiovascular exam (Resolved) RECOMMENDATIONS: 1. Continue to wean supplemental oxygen to maintain saturations at or above 90%. 2. Encourage incentive spirometer use and mobilize patient as tolerated. 3. Continue empiric BiPAP therapy with naps and nightly. 4. Continue attempts at diuresis. 5. Perform walking oximetry study prior to consideration for discharge home. 6. Outpatient pulmonary follow-up within 2 weeks of discharge is recommended. IMPRESSIONS: 1. Acute Hypoxemic Respiratory Failure The patient has had a supplemental oxygen requirement over the course of the hospitalization and did eventually require BiPAP initiation. Her need for overnight BiPAP support was likely secondary to known obstructive sleep apnea, for which she is noncompliant with use of nocturnal Pap therapy. Her plain film chest x-ray revealed findings consistent with effusions and atelectasis, as opposed to focal infiltrates. The patient has not demonstrated any systemic signs of infection and does not currently have a productive cough. Therefore, antibiotics were never indicated. BNP was elevated, nevertheless. The patient's oxygen requirement decreased in the setting of diuresis. I would recommend continuing attempts at volume optimization with diuretic therapy. Wean supplemental oxygen and encourage incentive spirometer use. Ideally, the patient should follow-up in the pulmonary medicine clinic within 2 weeks of discharge from the hospital. She is in need of repeat pulmonary function studies, given her continued tobacco utilization. 2. Continuous tobacco dependency Tobacco cessation counseling was provided. Nicotine replacement therapy can be offered to the patient while admitted to the hospital. I would recommend that repeat pulmonary function studies be obtained on an outpatient basis. 3. Atrial fibrillation/hypertension/hyperlipidemia Complicates care, management, recovery and prognosis. Continue medical management per cardiology recommendations. This note was generated with [employer] dictation software. It may contain incorrect words, spelling, and punctuation that were not noted in checking the note before signing. Code Visit Inpatient E&M: 89961 Subs Hosp L2
[2019-03-21] MEDS: Lidocaine 5% Patch 1 PATCH TOPICAL (08:29)
[2019-03-21] MEDS: Citalopram 20 MG Tablet 40 MG PO (08:31)
[2019-03-21] MEDS: Isosorbide Mononitrate 60 MG Tablet PO ×2 (08:31→22:48)
[2019-03-21] MEDS: Clopidogrel Bisulfate 75 MG Tablet PO (08:32)
[2019-03-21] MEDS: Amiodarone 200 MG Tablet PO (08:33)
[2019-03-21] MEDS: Lisinopril 40 MG Tablet PO ×2 (08:33→22:49)
[2019-03-21] MEDS: Famotidine 20 MG Tablet PO (08:33)
[2019-03-21] MEDS: Aspirin E.C. 81 MG Tablet PO (08:33)
[2019-03-21] MEDS: amLODIPine 10 MG Tablet PO (08:33)
[2019-03-21] MEDS: Furosemide 40 MG/4 ML Vial IV ×2 (09:01→17:12)
[2019-03-21] MEDS: 0.9% Saline Lock 10 ML Syringe IV ×2 (09:02→17:12)
--- NOTE | 2019-03-21 11:25 | PCM.PROGNOTE ---
Subjective: Patient was seen and examined today, she still is requiring supplemental oxygen, she appears comfortable and does not complain of any chest pain. Patient is going to be moved to PCU today for further care, tomorrow if the patient is still requiring oxygen, she may have to go home on nasal cannula oxygen short-term. - Physical Exam Vitals/I&O's: Vital Signs Temp Pulse Resp BP Pulse Ox 98.1 F 62 18 131/49 H 98 03/21/19 08:00 03/21/19 10:00 03/21/19 10:00 03/21/19 09:00 03/21/19 10:00 Oxygen Flow Rate (L/min) [ 4 AMBULATION with Oxygen] Oxygen Flow Rate (L/min) [ 0 AMBULATING on Room Air] Oxygen Flow Rate (L/min) 2 Oxygen Delivery Method Nasal Cannula Weight: 75.8 kg Body Mass Index (BMI) 30.5 Intake and Output for Last 24 Hours 03/19/19 03/20/19 03/21/19 23:59 23:59 23:59 Intake Total 1364.50 / 1604.50 840 / 1080 240 / 240 Output Total 2800 / 3200 850 / 950 750 / 750 Balance -1435.50 / -1595.50 -10 / 130 -510 / -510 General: Alert, Oriented x3, Cooperative HEENT: Atraumatic, PERRLA, EOMI, Normocephalic Oral: Moist Mucosa Neck: Supple, No JVD, Negative Carotid Bruits Lungs: Normal air movement, Wheezes - Scattered expiratory wheezes are noted bilaterally Cardiovascular: No murmurs, PMI Normal, Irregular Rate, No rub noted Abdomen: Bowel Sounds Present, Soft, Non Tender Extremities: No clubbing, No cyanosis, No edema, Capillary Refill Less than 3 Seconds Skin: No rashes, No breakdown Musculoskeletal: No Tenderness to Palpation of Joints or Extremities Neurological: Cranial nerves II-XII grossly intact, Neuro grossly intact, Sensory exam intact to light touch and pain Psych/Mental Status: Normal Affect, Appropriate, Alert and oriented to time, place, person, mood and affect Current Medications Acetaminophen (Tylenol) 650 mg PO Q6H PRN PRN PRN Reason: Pain Score 1-3/10 Hydrocodone Bitart/Acetaminophen ([place] 5mg-325mg) 1 - 2 tablet PO Q4H PRN PRN PRN Reason: Pain Score 4-10/10 Last Admin: 03/20/19 21:10 Dose: 2 tablet Documented by: Al Hydroxide/Mg Hydroxide (Mylanta Ii) 15 - 30 ml PO Q4H PRN PRN PRN Reason: INDIGESTION Albuterol Sulfate (Ventolin Aerosols) 2.5 mg INHALATION Q2H PRN PRN PRN Reason: dyspnea, wheezing Amiodarone HCl (Cordarone) 200 mg PO DAILY [facility] Last Admin: 03/21/19 08:33 Dose: 200 mg Documented by: Amitriptyline HCl (Elavil) 75 mg PO QHS [facility] Last Admin: 03/20/19 21:11 Dose: 75 mg Documented by: Amlodipine Besylate (Norvasc) 10 mg PO DAILY [facility] Last Admin: 03/21/19 08:33 Dose: 10 mg Documented by: Aspirin (Ecotrin) 81 mg PO DAILY@0800 [facility] Last Admin: 03/21/19 08:33 Dose: 81 mg Documented by: Atorvastatin Calcium (Lipitor) 40 mg PO QHS [facility] Last Admin: 03/20/19 21:12 Dose: 40 mg Documented by: Atropine Sulfate () 0.5 mg IV UD PRN PRN Reason: HR <50 bpm Citalopram Hydrobromide (Celexa) 40 mg PO DAILY [facility] Last Admin: 03/21/19 08:31 Dose: 40 mg Documented by: Clopidogrel Bisulfate (Plavix) 75 mg PO DAILY [facility] Last Admin: 03/21/19 08:32 Dose: 75 mg Documented by: Famotidine (Pepcid) 20 mg PO DAILY [facility] Last Admin: 03/21/19 08:33 Dose: 20 mg Documented by: Furosemide (Lasix) 40 mg IV BID@1000,1800 [facility] Last Admin: 03/21/19 09:01 Dose: 40 mg Documented by: Glucagon () 1 mg IM .X1 PRN PRN Reason: Hypoglycemia Heparin Sodium (Beef Lung) (Heparin 500 Unit/5 Ml (100/Ml)) 500 unit IV UD PRN PRN Reason: HEPARIN FLUSH Hydralazine HCl (Apresoline Iv) 10 mg IV Q4H PRN PRN PRN Reason: SBP > 160 Dextrose (Dextrose 10%-Water) 250 mls @ 999 mls/hr IV .Q16M PRN; Protocol PRN Reason: HYPOGLYCEMIA Sodium Chloride () 250 mls @ 15 mls/hr IV .[id number] PRN PRN Reason: Saline Flush Last Infusion: 03/19/19 19:44 Dose: Infused Documented by: Sodium Chloride () 250 mls @ 15 mls/hr IV .[id number] PRN PRN Reason: Additional IVPB Infusion Last Infusion: 03/19/19 19:43 Dose: Infused Documented by: Sodium Chloride () 1,000 mls @ 0 mls/hr IV .Q0M [facility] Last Infusion: 03/18/19 12:40 Dose: Infused Documented by: Isosorbide Mononitrate (Imdur) 60 mg PO BID [facility] Last Admin: 03/21/19 08:31 Dose: 60 mg Documented by: Lidocaine (Lidoderm Patch) 1 patch TOPICAL DAILY [facility]; Protocol Last Admin: 03/21/19 08:29 Dose: 1 patch Documented by: Lisinopril (Zestril) 40 mg PO BID [facility] Last Admin: 03/21/19 08:33 Dose: 40 mg Documented by: Magnesium Hydroxide (Milk Of Magnesia) 30 ml PO DAILY PRN PRN Reason: Constipation Metoclopramide HCl (Reglan) 5 mg IV Q6H PRN PRN PRN Reason: NAUSEA/VOMITING Nitroglycerin (Nitrostat) 0.4 mg SUBLINGUAL Q5M PRN PRN Reason: CARDIAC/CHEST PAIN Nutritional Formula (Lactose Free) (Ensure Enlive) 120 ml PO 4X/DAY [facility] Last Admin: 03/21/19 08:31 Dose: 120 ml Documented by: Ondansetron HCl (Zofran) 4 mg IV Q8H PRN PRN PRN Reason: NAUSEA/VOMITING Pramipexole Dihydrochloride (Mirapex) 1 mg PO QHS [facility] Last Admin: 03/20/19 21:11 Dose: 1 mg Documented by: Sodium Chloride () 10 - 40 ml IV UD PRN PRN Reason: SALINE FLUSH Last Admin: 03/21/19 09:02 Dose: 10 ml Documented by: Sodium Chloride () 500 ml IV BOLUS PRN PRN Reason: VASO-VAGAL PROTOCOL Medical Necessity - Tobacco Use Smoking Status: Current every day smoker Tobacco Use: Cigarettes Assessment/Plan All Active Problems (Last Updated 03/18/19 @ 17:30 by Anuja Gaviria) Unstable angina pectoris due to coronary arteriosclerosis (Resolved) History of coronary artery stent placement (Resolved 03/18/19) Chest pain (Resolved) Angina pectoris (Resolved) Atrial fibrillation with RVR (Resolved) Hypokalemia (Resolved) Preop cardiovascular exam (Resolved) #1 unstable angina-continue medications per cardiology #2 occlusive coronary artery disease right coronary artery-postop day 3 balloon angioplasty with drug-eluting stent proximal PDA and PTCA and drug-eluting stent placement distal right coronary artery #3 essential hypertension #4 hyperlipidemia #5 chronic atrial fib #6 peripheral artery disease #7 acute diastolic CHF-continue IV Lasix #8 acute hypoxic respiratory failure-probably in part secondary to congestive heart failure and probably atelectasis-continue to monitor patient, pulmonary medicine is seeing patient Code Visit Inpatient E&M: 93635 Subs Hosp L2
--- NOTE | 2019-03-21 16:41 | NURSING ---
report called to pcu for transfer to room 117,transferred per bed with belongings
[2019-03-21] MEDS: Amitriptyline 25 MG Tablet 75 MG PO (22:48)
[2019-03-21] MEDS: Pramipexole Di-HCl 1 MG Tablet PO (22:49)
[2019-03-21] MEDS: Atorvastatin Calcium 40 MG Tablet PO (22:49)
[2019-03-22] VITALS (10 sets, daily range): BP systolic 146–161; BP diastolic 67–70; PULSE 56–141; RESP 12–19; TEMP 36.6–36.7; O2SAT 94–97
--- NOTE | 2019-03-22 07:09 | PN.CARD_ITS ---
Subjectve: Patient seen and evaluated. Appears to be doing much better this morning. No further pauses noted. Objective: Vital Signs Temp Pulse Resp BP Pulse Ox 97.9 F 71 16 147/67 H 95 03/22/19 04:00 03/22/19 04:04 03/22/19 04:00 03/22/19 04:00 03/22/19 04:00 Oxygen Flow Rate (L/min) [ 4 AMBULATION with Oxygen] Oxygen Flow Rate (L/min) [ 0 AMBULATING on Room Air] Oxygen Flow Rate (L/min) 2 Oxygen Delivery Method Nasal Cannula Weight: 165 lb 12.602 oz Body Mass Index (BMI) 30.5 Intake and Output for Last 24 Hours 03/20/19 03/21/19 03/22/19 23:59 23:59 23:59 Intake Total 840 / 1080 540 / 780 540 / 540 Output Total 850 / 950 2650 / 2650 Balance -10 / 130 -2110 / -1870 540 / 540 General: Awake, Alert, Oriented x 3 HEENT: PERRL, EOMI, Sclera Non Icteric Neck: Supple, Good ROM, No Lymph Node Enlargement Lungs: Clear to auscultation Cardiovascular: Regular Rhythm, Normal S1, Normal S2, No Murmurs, No Rubs, No Gallops Vascular: No Carotid Bruits, Normal Femoral Pulses, Normal Radial Pulses, Normal Dorsalis Pedal Pulse, Normal Posterior Tibial Pulses Abdomen: Bowel Sounds Present, Soft, Non Tender, No HSM, No Organomegaly Extremities: No Cyanosis, No Clubbing, No edema Musculoskeletal: No Erythema Skin: No Rashes Lymphatic: No Lymph Node Enlargement Neurological: No Focal Motor or Sensory Deficit Psych/Mental Status: Appropriate Rhythm: EKG: ECHO: Stress Test: Cardiac Cath: PCI: CT Surgery: Holter monitor: EPS: PPM: CXR: Chest CT Scan: Medical Necessity - Tobacco Use Smoking Status: Current every day smoker Tobacco Use: Cigarettes Assessment/Plan 1. Chest discomfort * Patient presented with recurrent chest discomfort. The above is suggestive of her previous angina. She has had previous angioplasty and stenting as well as a stress test in September 2018 which did not demonstrate any obvious ischemia. Her cardiac catheterization demonstrated the following. Normal left main coronary artery Left anterior descending artery with mild disease First diagonal vessel with 30% proximal ostial stenosis Second diagonal vessel with ostial 50% stenosis Ramus intermedius with mild disease Left circumflex artery which is totally occluded Dominant large right coronary artery with previous stenting involving the proximal vessel which is patent, the mid vessel which is patent, the distal PDA which is also patent. There is an area between the mid and distal PDA with an 80% stenotic lesion. The origin of the posterolateral branch also has a probable 70 to 80% stenosis with poststenotic aneurysmal area. Left ventricular function appears to be fair with an estimated EF of 50%. Postprocedure will resume aspirin, clopidogrel, and Xarelto. She underwent angioplasty and stenting of the posterior descending artery as well as the posterolateral vessel. * She has had no further pauses since being off the beta-declan 2. Hypertension * Patient's blood pressure appears to be under good control and I would not recommend we make any major changes. * 3. Hyperlipidemia * Continue with aggressive risk factor modification. * 4. Peripheral vascular disease * Patient has known peripheral vascular disease. Unfortunately she continues to use tobacco products. She has been admonished about the above. * 5. Atrial fibrillation * Patient has atrial fibrillation with a controlled ventricular response rate. * Will resume anticoagulation with Xarelto * 6 mild congestive heart failure * She does appear to have mild congestive heart failure and will remain on daily Lasix dose. * Thank you for allowing me to participate in the care of your patient. Please don't hesitate to call if any issues arise
[2019-03-22] MEDS: Aspirin E.C. 81 MG Tablet PO (09:42)
[2019-03-22] MEDS: Lisinopril 40 MG Tablet PO (09:42)
[2019-03-22] MEDS: Furosemide 40 MG Tablet PO (09:42)
[2019-03-22] MEDS: Clopidogrel Bisulfate 75 MG Tablet PO (09:42)
[2019-03-22] MEDS: Citalopram 20 MG Tablet 40 MG PO (09:42)
[2019-03-22] MEDS: Amiodarone 200 MG Tablet PO (09:42)
[2019-03-22] MEDS: amLODIPine 10 MG Tablet PO (09:42)
[2019-03-22] MEDS: Isosorbide Mononitrate 60 MG Tablet PO (09:42)
[2019-03-22] MEDS: Lidocaine 5% Patch 1 PATCH TOPICAL (09:45)
[2019-03-22] MEDS: Famotidine 20 MG Tablet PO (09:53)
--- NOTE | 2019-03-22 10:44 | EKG12_ITS ---
Test Reason : RHYTHYM CHANGE, AFIB Blood Pressure : / mmHG Vent. Rate : 125 BPM Atrial Rate : 238 BPM P-R Int : 000 ms QRS Dur : 110 ms QT Int : 374 ms P-R-T Axes : 000 -06 190 degrees QTc Int : 539 ms Atrial flutter with variable A-V block ST & T wave abnormality, consider lateral ischemia Abnormal ECG Confirmed by GILBERT JEAN-BAPTISTE, FRANCIS ([id number]), newspaper editor HARMONY CORRIGAN ([id number]) on 03/24/2019 11:40:56 AM Referred By: Fernanda Puri Confirmed By:FRANCIS HUNT MD
--- NOTE | 2019-03-22 10:46 | PCM.PN.PUL ---
Subjective: Patient did well overnight. No acute issues were reported. Patient reportedly had a walking oximetry prior to my arrival and did not drop lower than 94%. Patient feels strong enough to go home. Patient has been tolerating BiPAP overnight. Patient with no complaints at this time. - Physical Exam Vitals/I&O's: Vital Signs Temp Pulse Resp BP Pulse Ox 36.7 C 73 19 H 161/70 H 97 03/22/19 09:33 03/22/19 09:33 03/22/19 09:33 03/22/19 09:33 03/22/19 09:33 Oxygen Flow Rate (L/min) [ 4 AMBULATION with Oxygen] Oxygen Flow Rate (L/min) [ 0 AMBULATING on Room Air] Oxygen Flow Rate (L/min) 2 Oxygen Delivery Method Room Air Weight: 75.2 kg Body Mass Index (BMI) 30.5 Intake and Output for Last 24 Hours 03/20/19 03/21/19 03/22/19 23:59 23:59 23:59 Intake Total 840 / 1080 540 / 780 540 / 540 Output Total 850 / 950 2650 / 2650 Balance -10 / 130 -2110 / -1870 540 / 540 General: Alert, Oriented x3, Cooperative, No apparent distress, Well developed, Well nourished, - - No conversational dyspnea. HEENT: Atraumatic, PERRLA, EOMI, Normocephalic, - - No scleral icterus or injection noted Oral: Moist Mucosa, No Gingival or Mucosal Lesions/ Ulcerations Neck: Supple, No JVD, No Nodes, Trachea Midline Lungs: No rhonchi, No wheeze, No rales, Diminished, - - Symmetric expansion. Cardiovascular: Regular rate, Regular Rhythm, Normal S1, Normal S2, No murmurs, No rub noted, No Gallop Abdomen: Bowel Sounds Present, Soft, Non Tender, Non-Distended Extremities: No clubbing, No cyanosis, No edema Skin: No rashes, No breakdown Musculoskeletal: No Tenderness to Palpation of Joints or Extremities Lymphatic: No Cervical, Supraclavicular, or Inguinal Adenopathy Neurological: Cranial nerves II-XII grossly intact, Neuro grossly intact, Motor Exam 5/5 strength throughout Psych/Mental Status: Alert and oriented to time, place, person, mood and affect Current Medications Acetaminophen (Tylenol) 650 mg PO Q6H PRN PRN PRN Reason: Pain Score 1-3/10 Hydrocodone Bitart/Acetaminophen ([place] 5mg-325mg) 1 - 2 tablet PO Q4H PRN PRN PRN Reason: Pain Score 4-10/10 Last Admin: 03/20/19 21:10 Dose: 2 tablet Documented by: Al Hydroxide/Mg Hydroxide (Mylanta Ii) 15 - 30 ml PO Q4H PRN PRN PRN Reason: INDIGESTION Albuterol Sulfate (Ventolin Aerosols) 2.5 mg INHALATION Q2H PRN PRN PRN Reason: dyspnea, wheezing Amiodarone HCl (Cordarone) 200 mg PO DAILY [facility] Last Admin: 03/22/19 09:42 Dose: 200 mg Documented by: Amitriptyline HCl (Elavil) 75 mg PO QHS [facility] Last Admin: 03/21/19 22:48 Dose: 75 mg Documented by: Amlodipine Besylate (Norvasc) 10 mg PO DAILY [facility] Last Admin: 03/22/19 09:42 Dose: 10 mg Documented by: Aspirin (Ecotrin) 81 mg PO DAILY@0800 [facility] Last Admin: 03/22/19 09:42 Dose: 81 mg Documented by: Atorvastatin Calcium (Lipitor) 40 mg PO QHS [facility] Last Admin: 03/21/19 22:49 Dose: 40 mg Documented by: Citalopram Hydrobromide (Celexa) 40 mg PO DAILY [facility] Last Admin: 03/22/19 09:42 Dose: 40 mg Documented by: Clopidogrel Bisulfate (Plavix) 75 mg PO DAILY [facility] Last Admin: 03/22/19 09:42 Dose: 75 mg Documented by: Famotidine (Pepcid) 20 mg PO DAILY [facility] Last Admin: 03/22/19 09:53 Dose: 20 mg Documented by: Furosemide (Lasix) 40 mg PO DAILY [facility] Last Admin: 03/22/19 09:42 Dose: 40 mg Documented by: Heparin Sodium (Beef Lung) (Heparin 500 Unit/5 Ml (100/Ml)) 500 unit IV UD PRN PRN Reason: HEPARIN FLUSH Sodium Chloride () 250 mls @ 15 mls/hr IV .[id number] PRN PRN Reason: Saline Flush Last Infusion: 03/19/19 19:44 Dose: Infused Documented by: Sodium Chloride () 250 mls @ 15 mls/hr IV .[id number] PRN PRN Reason: Additional IVPB Infusion Last Infusion: 03/19/19 19:43 Dose: Infused Documented by: Sodium Chloride () 1,000 mls @ 0 mls/hr IV .Q0M [facility] Last Infusion: 03/18/19 12:40 Dose: Infused Documented by: Isosorbide Mononitrate (Imdur) 60 mg PO BID [facility] Last Admin: 03/22/19 09:42 Dose: 60 mg Documented by: Lidocaine (Lidoderm Patch) 1 patch TOPICAL DAILY [facility]; Protocol Last Admin: 03/22/19 09:45 Dose: 1 patch Documented by: Lisinopril (Zestril) 40 mg PO BID [facility] Last Admin: 03/22/19 09:42 Dose: 40 mg Documented by: Magnesium Hydroxide (Milk Of Magnesia) 30 ml PO DAILY PRN PRN Reason: Constipation Nitroglycerin (Nitrostat) 0.4 mg SUBLINGUAL Q5M PRN PRN Reason: CARDIAC/CHEST PAIN Ondansetron HCl (Zofran) 4 mg IV Q8H PRN PRN PRN Reason: NAUSEA/VOMITING Pramipexole Dihydrochloride (Mirapex) 1 mg PO QHS [facility] Last Admin: 03/21/19 22:49 Dose: 1 mg Documented by: Rivaroxaban (Xarelto) 20 mg PO DAILY@1700 [facility] Sodium Chloride () 10 - 40 ml IV UD PRN PRN Reason: SALINE FLUSH Last Admin: 03/21/19 17:12 Dose: 10 ml Documented by: Medical Necessity - Tobacco Use Smoking Status: Current every day smoker Tobacco Use: Cigarettes Assessment/Plan All Active Problems (Last Updated 03/18/19 @ 17:30 by Anuja Gaviria) Unstable angina pectoris due to coronary arteriosclerosis (Resolved) History of coronary artery stent placement (Resolved 03/18/19) Chest pain (Resolved) Angina pectoris (Resolved) Atrial fibrillation with RVR (Resolved) Hypokalemia (Resolved) Preop cardiovascular exam (Resolved) RECOMMENDATIONS: 1. Consider outpatient polysomnogram for evaluation of obstructive sleep apnea and PFT 2. Encourage incentive spirometer use and mobilize patient as tolerated. 3. Diuresis per primary service 4. Outpatient pulmonary follow-up within 2 weeks of discharge is recommended. IMPRESSIONS: 1. Acute Hypoxemic Respiratory Failure secondary to probable acute diastolic congestive heart failure Patient appears to be responding well to diuretic therapy. Patient was able to tolerate ambulation without supplemental oxygen. Would defer to hospitalist on continued diuresis. Patient would benefit from initiation of BiPAP therapy at home, but has not been compliant in the past. This would require a repeat polysomnogram. Okay to discharge from a pulmonary perspective with follow-up in our office in 2 weeks. 2. Continuous tobacco dependency Tobacco cessation counseling was provided. Nicotine replacement therapy can be offered to the patient while admitted to the hospital. Pulmonary function test can be completed as an outpatient for quantification and clarification of underlying lung disorder. 3. Atrial fibrillation/hypertension/hyperlipidemia Complicates care, management, recovery and prognosis. Continue medical management per cardiology recommendations. Code Visit Inpatient E&M: 80775 Subs Hosp L2
--- NOTE | 2019-03-22 12:18 | PCM.DC ---
- Discharge Diagnoses Current Active Problems: Current Active and Chronic Problems (Last Updated 03/18/19 @ 17:30 by Anuja Gaviria) Acute on chronic diastolic (congestive) heart failure (Chronic) PAD (peripheral artery disease) (Chronic) You will use the following diet at home:: Cardiac Your food should be the consistency of: Regular Your liquids should be the consistency of: Regular/Thin Discharge Activity: Return to Normal Activity Call your doctor if you observe: Fever of 101 or Higher, Shortness of breath, Dizziness, Fainting spells, Swelling in the ankles, Chest pain, Increased palpitations (irregular heartbeat) Allergies/Adverse Reactions: Allergies No Known Allergies Allergy (Verified 03/17/19 14:00) Medications to take at Discharge Amitriptyline HCl [Elavil] 75 mg PO QHS 11/25/13 Citalopram [Celexa] 40 mg PO DAILY 11/25/13 Multivitamins,Therapeutic [Multivitamin] 1 tab PO DAILY 11/25/13 Pramipexole Di-HCl [Mirapex] 1 mg PO QHS 11/25/13 Melatonin 3 mg PO QHS PRN 04/25/17 atorvastatin 40 mg tablet 40 mg PO BID 05/20/17 nitroglycerin 0.4 mg sublingual tablet 0.4 mg SUBLINGUAL Q5M PRN #25 tab 05/20/17 ranitidine HCl 150 mg tablet 150 mg PO DAILY 90 Days #180 08/12/17 vitamin E (dl, acetate) 400 unit capsule 400 unit PO QDAY 08/12/17 clopidogrel 75 mg tablet 75 mg PO DAILY #90 tab 11/25/17 ascorbic acid (vitamin C) 500 mg capsule 500 mg PO DAILY cap 06/15/18 cholecalciferol (vitamin D3) 25 mcg (1,000 unit) capsule 1,000 unit PO DAILY 06/15/18 lidocaine 5 % topical patch 1 patch TOPICAL DAILY 06/15/18 albuterol sulfate 90 mcg/actuation aerosol inhaler 1 - 2 puff INHALATION Q4H PRN PRN #1 inhaler 06/16/18 rivaroxaban 20 mg tablet 20 mg PO DAILY #90 tab 11/13/18 amlodipine 10 mg tablet 10 mg PO DAILY #90 tab 11/18/18 isosorbide mononitrate 60 mg tablet,extended release 24 hr 60 mg PO BID #180 tab 11/18/18 lisinopril 40 mg tablet 40 mg PO BID #180 tab 11/18/18 amiodarone 200 mg tablet 200 mg PO DAILY #90 tab 11/26/18 Acetaminophen [Tylenol] 500 mg PO Q4H PRN PRN #20 tab 01/31/19 Aspirin E.C. [Ecotrin] 81 mg PO DAILY@0800 #30 tab 03/22/19 Furosemide [Lasix] 40 mg PO DAILY #30 tab 03/22/19 The following prescriptions were given: Aspirin E.C. [Ecotrin] 81 mg PO DAILY@0800 #30 tab Transmission Status: Pending to [facility] Furosemide [Lasix] 40 mg PO DAILY #30 tab Transmission Status: Pending to [facility] Primary Care Physician: Feng Hayes MD [Primary Care Provider] - Please follow up with your Primary Care Physician in: 3-5 days Test Results: Test results from this visit will be discussed in further detail at your follow-up appointment, if applicable. Please Follow Up With: Jaime Treviño MD When: 1-2 weeks
--- NOTE | 2019-03-22 12:20 | PCM.DC.SUM ---
Discharge Date and Diagnosis Date of Admission: 03/17/19 Date of Discharge: 03/22/19 - Secondary Discharge Diagnosis Chronic Problems (Last Updated 03/18/19 @ 17:30 by Anuja Gaviria) Acute on chronic diastolic (congestive) heart failure (Chronic) PAD (peripheral artery disease) (Chronic) Abdominal aortic aneurysm (AAA) (Chronic) Claudication in peripheral vascular disease (Chronic) Nicotine dependence (Chronic) Essential (primary) hypertension (Chronic) Atherosclerotic peripheral vascular disease (Chronic) Atherosclerotic heart disease of [place] coronary artery without angina pectoris (Chronic) Paroxysmal atrial fibrillation (Chronic) Non-STEMI (non-ST elevated myocardial infarction) (Chronic 04/21/15) HLD (hyperlipidemia) (Chronic) Hospital Course and Treatment Imaging Results: CXR: IMPRESSION: Unfavorable change. CHF with interstitial edema and trace effusions. Echo: Interpretation Summary Normal LV size. Left ventricular systolic function is lower limits of normal. The estimated ejection fraction is 50 %. Unable to assess diastolic dysfunction due to arrhythmia. Moderate (2+) eccentric mitral valve insufficiency. The left atrium is moderately enlarged. Mild (1+) eccentric aortic valve insufficiency. Compared to the previous the wall motion abnormality is new Cardiac Cath: CLINICAL PROFILE AND CO-MORBIDITIES Indications: Worsening Angina, ACS > 24 hrs, Worsening Angina, Stable Known CAD Heart Failure: Newly Diagnosed: No, NYHA Class: 1, Heart Failure Type: Systolic Stress/Imaging Stress/Image Study Performed: No Stress/Image Study Performed: No Angina Classification Anginal Classification w/in 2 Weeks: CCS III CAD Presentations: Unstable angina. Unstable angina. Other: Dyspnea on exertion Comorbidities/Risk Factors: Current/Recent Smoker (< 1year) Hypertension Dyslipidemia Prior PCI CONCLUSIONS Successful PTCA/CARMEN to proximal PDA with a 2.5 x 24 Promus Synergy, post dilated throughout with a 2.5 x 8 NC balloon; 85%-->0%, no dissection. Successful PTCA/CARMEN distal RCA with a 3.0 x 16 Promus Synergy, post dilated throughout with a 3.5 x 8 NC Balloon; 75%-->0%, no dissection. Successful PCI with PTCA to the ostial PL branch with a 2.0 x 12 Emerge balloon; 85%--10%, no dissection. Manual sheath removal. RECOMMENDATIONS Highly recommend quitting all tobacco products Follow up with primary butter fat tester Risk factor modification ASA Indefinitley Plavix for at least 12 months Routine post interventional care Refer for Outpatient Cardiac Rehab Manual sheath removal per protocol Follow up with Dr. Treviño Manual sheath removal. F/u with Dr Gar for RLE in stent stenosis and claudication sx. Consults: Cardiology Pulmonology Operations: None Procedures: 2-D Echocardiogram, Cardiac catheterization Summary of Care Provided: Per HPI: The patient is a 69 year old F with pmhx of CAD with 7 prior stents, PAD with leg stents, paroxysmal Afib, ongoing nicotine abuse, suspected COPD, HLD, HTN, anxiety, who presents to the ER with c/o SOB and Chest pain She has been feeling SOB progressively worsening for about 3 weeks. She also has intermittent chest pain. These both occur with exertion especially with climbing stairs, also with short walks and lifting anything at least 5lbs or more. She has chest pain described as a vice on her chest squeezing her. This is associated with the SOB. Deep breaths improve her CP. It lasts about 3 mins when it occurs. Also when she gets CP she feels faint. She has noticed that she has LLE pitting edema, and notes PND and orthopnea. She had a stress test in September 2018 that was negative. She went to see Dr. Treviño before xmas and her metoprolol was increased. She had an outpatient holter monitor that showed Afib and tachycardia. She has been smoking since age 13, and lately smokes about 1 pack every 2-3 days, however with her SOB she has been unable to smoke. She also complains of constipation and no BM since friday. Hospital Course: 1. CAD status post stents with unstable angina/HTN/HLD/chronic A. fib/tobacco [id number]-old female who is a former smoker, states that she quit during this admission, presented with chest pain and elevated troponin indicative of unstable angina. She has had a extensive previous cardiac history with multiple stents. She was found to have another cardiac lesion and had a another drug-eluting stent placed in the distal right coronary artery. She was continued on Xarelto and started on aspirin and Plavix for the new stent. Her stay was complicated by an episode of significant bradycardia and a rhythm pauses on EKG. Her beta-alyssa was discontinued per cardiology and she was continued on amiodarone only. Prior to discharge she went back into A. fib with heart rates in the low 100s. She was asymptomatic and therefore was felt safe to go home per cardiology with a Holter monitor. She will need to follow-up with cardiology in 1 to 2 weeks as well as continue dual antiplatelet therapy for 12 months on top of her Xarelto. We also discussed cessation of all tobacco products which she agrees to. There are no major changes made to her previous blood pressure medications, Lasix was added. 2. Acute hypoxic respiratory failure secondary to possible CHF/BELLE-on her chest x-ray on admission there was signs of fluid overload, this is likely secondary to her unstable angina and NSTEMI. Her BNP was elevated to 680 on admission, and she was started and discharged on Lasix. Her echo did not show any systolic dysfunction and diastolic dysfunction could not be assessed secondary to her chronic A. fib. Prior to discharge she was returned to room air which she tolerated, and she had an ambulatory pulse ox which did not go below 94% on room air. Therefore she can be discharged home with outpatient follow-up to pulmonology in 2 weeks. She does not wear her CPAP mask at home, however she did like the mask that was provided here in the hospital, this can be taken care of on an outpatient basis. 3. Her other medical diagnoses were evaluated and her home medications were continued where appropriate - Physical Exam Vitals/I&O's: Vital Signs Temp Pulse Resp BP Pulse Ox 98.0 F 141 H 19 H 161/70 H 97 03/22/19 09:33 03/22/19 11:28 03/22/19 09:33 03/22/19 09:33 03/22/19 09:33 Oxygen Flow Rate (L/min) [ 4 AMBULATION with Oxygen] Oxygen Flow Rate (L/min) [ 0 AMBULATING on Room Air] Oxygen Flow Rate (L/min) 2 Oxygen Delivery Method Room Air Weight: 165 lb 12.602 oz Body Mass Index (BMI) 30.5 Intake and Output for Last 24 Hours 03/20/19 03/21/19 03/22/19 23:59 23:59 23:59 Intake Total 840 / 1080 540 / 780 990 / 990 Output Total 850 / 950 2650 / 2650 Balance -10 / 130 -2110 / -1870 990 / 990 General: Alert, Oriented x3, Cooperative, No apparent distress HEENT: Atraumatic, PERRLA, EOMI, Normocephalic Oral: Moist Mucosa Neck: Supple, No JVD Lungs: Clear to auscultation, Normal air movement, No rhonchi, No wheeze, No rales, Diminished Cardiovascular: Regular rate, Regular Rhythm, Normal S1, Normal S2, No murmurs Abdomen: Soft, Non Tender, Non-Distended, No Hepato-splenomegaly Extremities: No edema, Capillary Refill Less than 3 Seconds Skin: No rashes, No breakdown Neurological: Neuro grossly intact, Sensory exam intact to light touch and pain Psych/Mental Status: Normal Affect, Appropriate Current Medications Acetaminophen (Tylenol) 650 mg PO Q6H PRN PRN PRN Reason: Pain Score 1-3/10 Hydrocodone Bitart/Acetaminophen ([place] 5mg-325mg) 1 - 2 tablet PO Q4H PRN PRN PRN Reason: Pain Score 4-10/10 Last Admin: 03/20/19 21:10 Dose: 2 tablet Documented by: Al Hydroxide/Mg Hydroxide (Mylanta Ii) 15 - 30 ml PO Q4H PRN PRN PRN Reason: INDIGESTION Albuterol Sulfate (Ventolin Aerosols) 2.5 mg INHALATION Q2H PRN PRN PRN Reason: dyspnea, wheezing Amiodarone HCl (Cordarone) 200 mg PO DAILY ON LICENSE OF [facility] Last Admin: 03/22/19 09:42 Dose: 200 mg Documented by: Amitriptyline HCl (Elavil) 75 mg PO QHS ON LICENSE OF [facility] Last Admin: 03/21/19 22:48 Dose: 75 mg Documented by: Amlodipine Besylate (Norvasc) 10 mg PO DAILY ON LICENSE OF [facility] Last Admin: 03/22/19 09:42 Dose: 10 mg Documented by: Aspirin (Ecotrin) 81 mg PO DAILY@0800 ON LICENSE OF [facility] Last Admin: 03/22/19 09:42 Dose: 81 mg Documented by: Atorvastatin Calcium (Lipitor) 40 mg PO QHS ON LICENSE OF [facility] Last Admin: 03/21/19 22:49 Dose: 40 mg Documented by: Citalopram Hydrobromide (Celexa) 40 mg PO DAILY ON LICENSE OF [facility] Last Admin: 03/22/19 09:42 Dose: 40 mg Documented by: Clopidogrel Bisulfate (Plavix) 75 mg PO DAILY ON LICENSE OF [facility] Last Admin: 03/22/19 09:42 Dose: 75 mg Documented by: Famotidine (Pepcid) 20 mg PO DAILY ON LICENSE OF [facility] Last Admin: 03/22/19 09:53 Dose: 20 mg Documented by: Furosemide (Lasix) 40 mg PO DAILY ON LICENSE OF [facility] Last Admin: 03/22/19 09:42 Dose: 40 mg Documented by: Heparin Sodium (Beef Lung) (Heparin 500 Unit/5 Ml (100/Ml)) 500 unit IV UD PRN PRN Reason: HEPARIN FLUSH Sodium Chloride () 250 mls @ 15 mls/hr IV .[id number] PRN PRN Reason: Saline Flush Last Infusion: 03/19/19 19:44 Dose: Infused Documented by: Sodium Chloride () 250 mls @ 15 mls/hr IV .[id number] PRN PRN Reason: Additional IVPB Infusion Last Infusion: 03/19/19 19:43 Dose: Infused Documented by: Sodium Chloride () 1,000 mls @ 0 mls/hr IV .Q0M ON LICENSE OF [facility] Last Infusion: 03/18/19 12:40 Dose: Infused Documented by: Isosorbide Mononitrate (Imdur) 60 mg PO BID ON LICENSE OF [facility] Last Admin: 03/22/19 09:42 Dose: 60 mg Documented by: Lidocaine (Lidoderm Patch) 1 patch TOPICAL DAILY ON LICENSE OF [facility]; Protocol Last Admin: 03/22/19 09:45 Dose: 1 patch Documented by: Lisinopril (Zestril) 40 mg PO BID ON LICENSE OF [facility] Last Admin: 03/22/19 09:42 Dose: 40 mg Documented by: Magnesium Hydroxide (Milk Of Magnesia) 30 ml PO DAILY PRN PRN Reason: Constipation Nitroglycerin (Nitrostat) 0.4 mg SUBLINGUAL Q5M PRN PRN Reason: CARDIAC/CHEST PAIN Ondansetron HCl (Zofran) 4 mg IV Q8H PRN PRN PRN Reason: NAUSEA/VOMITING Pramipexole Dihydrochloride (Mirapex) 1 mg PO QHS ON LICENSE OF [facility] Last Admin: 03/21/19 22:49 Dose: 1 mg Documented by: Rivaroxaban (Xarelto) 20 mg PO DAILY@1700 ON LICENSE OF [facility] Sodium Chloride () 10 - 40 ml IV UD PRN PRN Reason: SALINE FLUSH Last Admin: 03/21/19 17:12 Dose: 10 ml Documented by: Discharge Activity: Return to Normal Activity Call your doctor if you observe: Fever of 101 or Higher, Shortness of breath, Dizziness, Fainting spells, Swelling in the ankles, Chest pain, Increased palpitations (irregular heartbeat) Home Medications: Medications to take at Discharge Amitriptyline HCl [Elavil] 75 mg PO QHS 11/25/13 Citalopram [Celexa] 40 mg PO DAILY 11/25/13 Multivitamins,Therapeutic [Multivitamin] 1 tab PO DAILY 11/25/13 Pramipexole Di-HCl [Mirapex] 1 mg PO QHS 11/25/13 Melatonin 3 mg PO QHS PRN 04/25/17 atorvastatin 40 mg tablet 40 mg PO BID 05/20/17 nitroglycerin 0.4 mg sublingual tablet 0.4 mg SUBLINGUAL Q5M PRN #25 tab 05/20/17 ranitidine HCl 150 mg tablet 150 mg PO DAILY 90 Days #180 08/12/17 vitamin E (dl, acetate) 400 unit capsule 400 unit PO QDAY 08/12/17 clopidogrel 75 mg tablet 75 mg PO DAILY #90 tab 11/25/17 ascorbic acid (vitamin C) 500 mg capsule 500 mg PO DAILY cap 06/15/18 cholecalciferol (vitamin D3) 25 mcg (1,000 unit) capsule 1,000 unit PO DAILY 06/15/18 lidocaine 5 % topical patch 1 patch TOPICAL DAILY 06/15/18 albuterol sulfate 90 mcg/actuation aerosol inhaler 1 - 2 puff INHALATION Q4H PRN PRN #1 inhaler 06/16/18 rivaroxaban 20 mg tablet 20 mg PO DAILY #90 tab 11/13/18 amlodipine 10 mg tablet 10 mg PO DAILY #90 tab 11/18/18 isosorbide mononitrate 60 mg tablet,extended release 24 hr 60 mg PO BID #180 tab 11/18/18 lisinopril 40 mg tablet 40 mg PO BID #180 tab 11/18/18 amiodarone 200 mg tablet 200 mg PO DAILY #90 tab 11/26/18 Acetaminophen [Tylenol] 500 mg PO Q4H PRN PRN #20 tab 01/31/19 Aspirin E.C. [Ecotrin] 81 mg PO DAILY@0800 #30 tab 03/22/19 Furosemide [Lasix] 40 mg PO DAILY #30 tab 03/22/19 Following Prescrptions Were Given to Patient: Aspirin E.C. [Ecotrin] 81 mg PO DAILY@0800 #30 tab Transmission Status: Pending to [facility] Furosemide [Lasix] 40 mg PO DAILY #30 tab Transmission Status: Pending to [facility] Primary Care Physician: Feng Hayes MD [Primary Care Provider] - Please follow up with your Primary Care Physician in: 3-5 days Please Follow Up With: Jaime Treviño MD When: 1-2 weeks Please Follow Up With: Zack Marx MD When: 2 weeks Disposition: Home Minutes spent on discharge:: 35 Patient Condition:: Stable Medical Necessity - Tobacco Use Smoking Status: Current every day smoker Tobacco Use: Cigarettes Meaningful Use Info Meaningful Use Diagnoses (Choose all that apply): AMI, CHF - AMI Aspirin given w/in 24hrs of arrival?: Yes ASA at discharge?: Yes Statins at discharge?: Yes Rodney/ARB at discharge?: Yes Beta Alyssa at discharge?: No Reason Beta Alyssa not ordered:: Hypotension Done w/ Acute VA measure.: Yes - CHF RODNEY/ARB ordered at discharge?: Yes Documented LVEF (%): 50 Code Visit Inpatient E&M: 15718 Disch Hosp
--- NOTE | 2019-03-22 12:43 | PHA.DC.MC ---
Pharmacy Service has performed discharge medication reconciliation and counseling for this patient. 1. ASPIRIN 81MG PO DAILY 2. FUROSEMIDE 40MG PO DAILY The patient's discharge medication list was reviewed for discrepancies and discrepancies were resolved. Home Medications Amitriptyline HCl [Elavil] 75 mg PO QHS 11/25/13 Citalopram [Celexa] 40 mg PO DAILY 11/25/13 Multivitamins,Therapeutic [Multivitamin] 1 tab PO DAILY 11/25/13 Pramipexole Di-HCl [Mirapex] 1 mg PO QHS 11/25/13 Melatonin 3 mg PO QHS PRN 04/25/17 atorvastatin 40 mg tablet 40 mg PO BID 05/20/17 nitroglycerin 0.4 mg sublingual tablet 0.4 mg SUBLINGUAL Q5M PRN #25 tab 05/20/17 ranitidine HCl 150 mg tablet 150 mg PO DAILY 90 Days #180 08/12/17 vitamin E (dl, acetate) 400 unit capsule 400 unit PO QDAY 08/12/17 clopidogrel 75 mg tablet 75 mg PO DAILY #90 tab 11/25/17 ascorbic acid (vitamin C) 500 mg capsule 500 mg PO DAILY cap 06/15/18 cholecalciferol (vitamin D3) 25 mcg (1,000 unit) capsule 1,000 unit PO DAILY 06/15/18 lidocaine 5 % topical patch 1 patch TOPICAL DAILY 06/15/18 albuterol sulfate 90 mcg/actuation aerosol inhaler 1 - 2 puff INHALATION Q4H PRN PRN #1 inhaler 06/16/18 rivaroxaban 20 mg tablet 20 mg PO DAILY #90 tab 11/13/18 amlodipine 10 mg tablet 10 mg PO DAILY #90 tab 11/18/18 isosorbide mononitrate 60 mg tablet,extended release 24 hr 60 mg PO BID #180 tab 11/18/18 lisinopril 40 mg tablet 40 mg PO BID #180 tab 11/18/18 amiodarone 200 mg tablet 200 mg PO DAILY #90 tab 11/26/18 Acetaminophen [Tylenol] 500 mg PO Q4H PRN PRN #20 tab 01/31/19 Aspirin E.C. [Ecotrin] 81 mg PO DAILY@0800 #30 tab 03/22/19 Furosemide [Lasix] 40 mg PO DAILY #30 tab 03/22/19 The patient was counseled on the following discharge medications and changes in medications for homegoing were reviewed. The Reason for Use, instructions for use, and potential side effects were reviewed for all new medications. The patient's questions regarding all of their medications were answered. The patient was able to verbally demonstrate an understanding of their discharge medications.
--- NOTE | 2019-03-23 15:29 | CASEMGMT ---
Case Management DC F/u call: DC Date: 03/22/2019 DC Diagnosis: Non Listed. Hospital Course: 1. CAD status post stents with unstable angina/HTN/HLD/chronic A. fib/tobacco abuse 2. Acute hypoxic respiratory failure secondary to possible CHF/BELLE DC Disposition: Home with Holter Monitor Lace/Strata: 29/06 Called patient listed cell phone on demographics, no answer and VM did not verify identity, therefor no VM left. Patient has a scheduled f/u appointment with Rosaura Klein CNP 04/06/[address] Hayes 03/25/2019 at 1025. Hortensia Whitmore RNCM
== END 2019-03-22 15:42 | disposition home or self-care (01) | DRG 246 ==
LOC: ED 15:08 → PCU 15:25 → ICU 03-18 08:01 → PCU 03-22 07:17 → ICU 03-22 13:54 → PCU 03-22 13:54
PROVIDERS: Hospitalist; Internal Medicine; Internal Medicine Cardiovascular Disease; Internal Medicine Critical Care Medicine; Admitting Provider Family Medicine; Emergency Provider Emergency Medicine; Family Provider Family Medicine; PCP Family Medicine; Referring Provider Family Medicine; Visit Provider Family Medicine
DX: I25.110 Atherosclerotic heart disease of native coronary artery with unstable angina pectoris (principal); J96.01 Acute respiratory failure with hypoxia; I21.4 Non-ST elevation (NSTEMI) myocardial infarction; I50.33 Acute on chronic diastolic (congestive) heart failure; I48.20 Chronic atrial fibrillation, unspecified; T82.855A Stenosis of coronary artery stent, initial encounter; I11.0 Hypertensive heart disease with heart failure; I71.4 Abdominal aortic aneurysm, without rupture; R00.1 Bradycardia, unspecified; E78.5 Hyperlipidemia, unspecified; I25.2 Old myocardial infarction; Z95.5 Presence of coronary angioplasty implant and graft; F17.210 Nicotine dependence, cigarettes, uncomplicated; Z85.43 Personal history of malignant neoplasm of ovary; Z79.02 Long term (current) use of antithrombotics/antiplatelets; Z79.01 Long term (current) use of anticoagulants; I73.9 Peripheral vascular disease, unspecified; G47.33 Obstructive sleep apnea (adult) (pediatric)
CPT/HCPCS: 36415; 71045; 80048; 80053; 80061; 83735; 83880; 84443; 84484; 85025; 85027; 85347; 85610; 85730; 92921; 92928; 92929; 93005; 93306; 93458; 94002; 94003; 97116; 97162; 97802; 99152; 99153; 99251; 99285; 99406; 99407; J7030; J7050; Q9957; Q9967; A4216; C1725; C1769; C1874; C1887; C1894; C9600; C9601; G0463; J1940

== ENCOUNTER → 2019-03-30 07:51 | Outpatient (CLI) | payer MEDICARE, SELFPAY ==
[2019-03-17 16:34] VITALS: BMI 30.5
[2019-03-18 11:16] VITALS: BMI 29.9
--- NOTE | 2019-03-30 08:26 | PCM.CR.HP2 ---
CR - History & Physical - General Arrival date:: 03/30/19 Arrival time:: 08:50 Date of Referral:: 03/18/19 Date of CR Evaluation:: 03/30/19 Referring Physician: DR. MATSON Primary Diagnosis: PCI WITH STENT - History of Present Cardiac Event Onset Date: Enter Onset Date of cardiac illnesses in Comment field below Current stable Angina Pectoris:: No Acute Myocardial Infarction within 12 months:: Yes Coronary Artery Bypass Graft:: No Heart valve replacement or repair:: No PTCA or coronary stenting:: Yes - TOTAL OF 9 STENTS Heart or Heart-Lung Transplant:: No Heart Failure EF <35%:: No - EF IS 50% Type of Symptoms:: CRUSHING CP WITH NAUSEA Interventions with present event:: STENT X2 Were there any complications?: NONE - Medications Home Medications: Ambulatory Orders Medication Instructions Recorded Amitriptyline HCl [Elavil] 75 mg PO QHS 11/25/13 Citalopram [Celexa] 40 mg PO DAILY 11/25/13 Multivitamins,Therapeutic 1 tab PO DAILY 11/25/13 [Multivitamin] Pramipexole Di-HCl [Mirapex] 1 mg PO QHS 11/25/13 Melatonin 3 mg PO QHS PRN 04/25/17 atorvastatin 40 mg tablet 40 mg PO BID 05/20/17 nitroglycerin 0.4 mg sublingual 0.4 mg SUBLINGUAL Q5M PRN #25 tab 05/20/17 tablet ranitidine HCl 150 mg tablet 150 mg PO DAILY 90 Days #180 08/12/17 vitamin E (dl, acetate) 400 unit 400 unit PO QDAY 08/12/17 capsule clopidogrel 75 mg tablet 75 mg PO DAILY #90 tab 11/25/17 ascorbic acid (vitamin C) 500 mg 500 mg PO DAILY cap 06/15/18 capsule cholecalciferol (vitamin D3) 25 1,000 unit PO DAILY 06/15/18 mcg (1,000 unit) capsule lidocaine 5 % topical patch 1 patch TOPICAL DAILY 06/15/18 albuterol sulfate 90 mcg/actuation 1 - 2 puff INHALATION Q4H PRN PRN 06/16/18 aerosol inhaler #1 inhaler rivaroxaban 20 mg tablet 20 mg PO DAILY #90 tab 11/13/18 amlodipine 10 mg tablet 10 mg PO DAILY #90 tab 11/18/18 isosorbide mononitrate 60 mg 60 mg PO BID #180 tab 11/18/18 tablet,extended release 24 hr lisinopril 40 mg tablet 40 mg PO BID #180 tab 11/18/18 amiodarone 200 mg tablet 200 mg PO DAILY #90 tab 11/26/18 Acetaminophen [Tylenol] 500 mg PO Q4H PRN PRN #20 tab 01/31/19 Aspirin E.C. [Ecotrin] 81 mg PO DAILY@0800 #30 tab 03/22/19 Furosemide [Lasix] 40 mg PO DAILY #30 tab 03/22/19 - Allergies Allergies/Adverse Reactions: Allergies No Known Allergies Allergy (Verified 03/17/19 14:00) - Sleep Disorder Evaluation Hx of Sleep Apnea: Yes Do you snore loudly (louder than talking or can be heard through closed doors)?: Yes Do you often feel tired/ fatigued/ sleepy during daytime?: Yes Has anyone observed you stop breathing during sleep?: Yes History of Hypertension (for STOP score): Yes - PT REQUESTS A REFERRAL, STATES SHE WAS EVAL FOR SLEEP APNEA YRS AGO BUT NEVER FELT COMFORTABLE WITH THE EQUIPMENT STOP Results: Positive Advanced Directives - Advanced Directives Power of Software Engineering Project Manager: No Living Will: No Advance Directives Information Provided: Yes - PT INFORMED OF AVAIL IN MEDICAL RECORD DEPT OF THESE ADV DIRECTIVES Advance Directives on File: No DNR Order?:: No Past Medical History - Past Medical Illness Medical History: Past Medical History (Last Updated 03/27/19 @ 16:08 by Anuja Gaviria) 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 01/21/2019 Essential (primary) hypertension (Chronic) I10 HLD (hyperlipidemia) (Chronic) E78.5 Non-STEMI (non-ST elevated myocardial infarction) (Chronic) Onset Date: 03/19/19 I21.4 04/21/2015, 03/19/2019 Peripheral vascular occlusive disease (Chronic) I73.9 Bilateral SFA stents. Occluded Right SFA and angioplasty of in-stent stenosis of her left SFA. COPD (chronic obstructive pulmonary disease) (Chronic) J44.9 BELLE (obstructive sleep apnea) (Chronic) Supposed to be on BiPAP Nicotine dependence (Chronic) F17.200 Anxiety and depression F41.8 Claudication in peripheral vascular disease I73.9 Emphysema of lung J43.9 IBS (irritable bowel syndrome) Obesity E66.9 Angina pectoris (Resolved) I20.9 Atrial fibrillation with RVR (Resolved) I48.91 Paroxsymal History of hysterectomy Z90.710 Hypokalemia (Resolved) E87.6 Unstable angina pectoris due to coronary arteriosclerosis (Resolved) I25.110 Dyspnea on exertion (Inactive) R06.09 PAD (peripheral artery disease) (Inactive) I73.9 Wheezing (Inactive) R06.2 - Past Surgical History Surgical History: Past Surgical History (Last Updated 03/27/19 @ 16:07 by Anuja Gaviria) History of coronary artery stent placement (Resolved) Onset Date: 03/18/19 Z95.5 [id number] LCx and OM 03/20/99; PCI-CARMEN of distal RCA and POBA-ostium of posterolateral branch for stent jailing; PCI-CARMEN to RCA and PDA 02/20; PCI-CARMEN to ISR-RCA 04/21/2015; [id number]-[id number] RPDA w/ 2.5 x 24 mm Promus Stent and Distal RCA w/ 3.0 x 16 mm Promus Stent and POBA Ostial RPLB 03/18/2019 History of angioplasty of peripheral vessel Z98.62 Bilateral SFA stents. Occluded Right SFA and angioplasty of in-stent stenosis of her left SFA. History of bilateral leg stents History of bunionectomy of right great toe Z98.890 History of colonoscopy Onset Date: ~06/2018 Z98.890 History of left heart catheterization Z98.890 03/20/99, 07/31/99,12/21/02, 06/2003, 02/2007, 12/2010, 04/20/15 History of tonsillectomy Z90.89 Hx of APLL Right X2-01/05/15, 11/26/13 Left X2- 02/15/15, 09/23/2016 Hx of hysterectomy Z90.710 Status post left foot surgery Z98.890 Surgical History: - - LE intervention for PAD per Dr. Hoskins, cardiac catheterizations w/ total PCI x 7, Lower back injections, DIOMEDES, T+A, R foot surgery. - Family History Summary Family History: Family History (Last Reviewed 09/29/18 @ 15:28 by Laura Narayan) Father Heart disease Hypertension Seizures Sister CVA (cerebral vascular accident) Hypertension Other Family history of hypertension Social History - Smoking History Smoking Status: Former smoker Years Smokin Packs Smoked per Day: 0.5 Hx Smoking Cessation Date: 03/18/19 Hx Tobacco Use: Yes Hx Smoking Exposure: Yes - Alcohol Use Alcohol Usage: No - Substance Abuse Hx Substance Use: No - Occupation Occupation (List type of work in comments):: Retired - Hobbies, Recreation, Social Activities Hobbies: Other - [employer], PUZZLES, DECOR[employer] AND REDECOR[employer] Recreational Activities: I am able to engage in most, but not all activities Social Environment - Status Marital Status: - Current Living Arrangements Living Environment:: Family - DAUGHTER AND GRANDSON - Children How many children do you have?: 3 Do any of your children live nearby?: Yes - DAUGHTER LIVES WITH PT - Safety Do you feel safe in your surroundings?: Yes - Assistance Do you need any assistance at home?: NONE Review of Systems - Review of Systems Hints: Right click = Denies ([place]ash). Left click = Reports ([place]) Review of Present Symptoms: Reports: Shortness of Breath with Exertion, PVD - I HAVE 2 STENTS IN LEGS, ONE IN EACH-DR. HOSKINS, Heart Arrhythmia/Irregularities - IN AND OUT OF A FIB, Appetite - Normal, Sleep - Normal. Denies: Shortness of Breath at Rest, Operative Discomfort, Angina, Wound Healing - NON-APPLICABLE, Dizziness/Lightheadedness, Fatigue - Pain Is Patient Pain Free?: Yes Risk Factor Assessment - Chief Complaint Chief Complaint: CURRENT PCI PT HERE TODAY FOR INITIAL CR EVALUATION - Vital Signs Temperature: 98.6 F Respiratory Rate: 16 Pulse Ox: 96 Blood Pressure: 100/62 Nailbeds:: PINK - Pulse Pulse Rate: 80 Pulse Rhythm: Irregular - Hypertension How long have you been treated?: SINCE 1999 On medication(s)?: YES, LISINOPRIL Blood Pressure Sitting - Left Arm: 100/60 - Stress Stress: Recent - STRESS BETWEEN HER DAUGHTER AND SELF,WE SEE THINGS DIFFERENTLY - Blood Cholesterol/Lipids Total Cholesterol (mg/dL) Goal = less than 200 mg/dL: 99 HDL Cholesterol (mg/dL) Goal = less than 40 mg/dL: 35 LDL Cholesterol (mg/dL) Goal = less than 70 mg/dL: 40 Triglycerides (mg/dL) Goal = less than 150 mg/dL: 122 - Diabetes Nutrition Referral for Diabetes: No - Obesity Height: 5 ft 2 in Weight:: 165 lb Weight in Pounds: 165.0 lbs Weight Source: Stated by Patient Body Mass Index (BMI): 30.2 - Physical Inactivity Physical Inactivity: Recreational activity - Risk Stratification Risk Guidelines: Lowest Risk: Risk Factor for Smoking, Risk Factor for Dyslipidemia, Risk Factor for Diabetes, Risk Factor for Obesity - BMI 30.5, Risk Factor for Hypertension, Moderate Risk: Risk Factor for Sedentary Lifestyle, Risk Factor for Depression - TAKE MEDICATION FOR DEPRESSION, Highest Risk: Risk Factor for Obesity - For Smoking Smoking Risk Guidelines: Smoking Low Risk: None or quit greater than 6 months ago. Smoking Moderate Risk: Smoker or quit 6 months or less ago. Smoking High Risk: Smoker - For Dyslipidemia Dyslipidemia Risk Guidelines: Low Risk: Moderate Risk: High Risk: 15-25% fat 25.1-29% fat >/= 30% fat. <7% sat fat 7-9% sat fat >9% sat fat. <150 mg chol 150-299 mg chol >/= 300 mg chol. LDL <100 LDL 100-129 LDL >/= 130. Chol/HDL ratio <5.0 Chol/HDL ratio 5.0-6.0 Chol/HDL ratio >6.0. Triglycerides <100 Triglycerides 100-149 Triglycerides >/= 150 - For Diabetes Mellitus Diabetes Risk Guidelines: Diabetes Low Risk: HgA1c <6.5% and/or FBG <120. Diabetes Moderate Risk: HgA1c 6.6-7.9% and/or FBG 120-180. Diabetes High Risk: HgA1c >/= 8% and/or FBG >180 - For Obesity/Overweight Obesity/Overweight Risk Guidelines: Obesity Low Risk: BMI <25.0. Obesity Moderate Risk: BMI 25-29.9. Obesity High Risk: BMI >/= 30.0 - For Hypertension Hypertension Risk Guidelines: Hypertension Low Risk: Systolic <120 and Diastolic <80. Hypertension Moderate Risk: Systolic 120-139 and Diastolic 80-89. Hypertension High Risk: Systolic >/= 140 and Diastolic >/= 90 - For Sedentary Lifestyle Sedentary Lifestyle Risk Guidelines: Sedentary Lifestyle Low Risk: >/= 1,500 kcal/week. Sedentary Lifestyle Moderate Risk: 700-1,499 kcal/week. Sedentary Lifestyle High Risk: < 700 kcal/week - For Depression Depression Risk Guidelines: Depression Low Risk: Not clinically depressed. Depression Moderate Risk: Mildly depressed. Depression High Risk: Clinically depressed - Family History Family History: Family History (Last Reviewed 09/29/18 @ 15:28 by Laura Narayan) Father Heart disease Hypertension Seizures Sister CVA (cerebral vascular accident) Hypertension Other Family history of hypertension Motivation - Motivation to Participate On a scale of 1 to 10, how prepared are you to commit to attending program?: 10 What do you see as barriers to successfully being able to complete the program?: NONE What do you see as the benefits of succesfully completing the program? In other words, what do you hope to get out of participating in the program?: PEACE OF MIND Are there issues you are dealing with that will interfere with completing the program?: NONE Do you have a spouse or signficant other, family or friends who will help support you to complete the program?: DAUGHTER
--- NOTE | 2019-03-30 08:27 | PCM.CR.ITP ---
General Information - General Information Admitting Diagnosis: PCI WITH STENT - Education/Goals Individual Counseling: Initial Assessment: Stress - DAUGHTE LIVES WITH PT Cardiac Rehabilitation Goals: 1. Maintain the individual as the primary focus of care. 2. To improve the patient's quality of life. 3. Identification of cardiac risk factors and provide cardiac risk factor management. 4. Enhance the psychosocial status of the patient. 5. Reconditioning enough to allow the patient to resume customary activities. 6. Control symptoms of cardiac disease Scale for measuring improvement of personal goals: Enter appropriate number in Comments. 2 = Unchanged. 3 = Slightly Better. 4 = Moderate Improvement. 5 = Met my Goal Personal Goals: Initial Assessment: Quit smoking (participate in smoking cessation - PT QUIT SINCE STENT 03/18/19, Improve management of stress and emotions, Improve energy level, Participate in home exercise program, Get back to work, or to resume activities faster, Improve knowledge of cardiac disease, Improve muscle strength and endurance, Improve diet and eating habits (eat healthier), Control risk factors (learn risk factor modification) Exercise - Initial Assessment - Visit Date of Eval: 03/30/19 - Stages of Change Stages of Change:: Action - Physician Prescribed Exercise Modalities: Treadmill, Biodyne, Rower, Airdyne, NuStep, SciFit Frequency (days/week): 3x/week for 12 weeks [36 sessions] Intensity: 60-80% age predicted maximum heart rate reserve Target Heart Rate:: 97-127 - Hypertension Do any of the following apply?: Yes, Medication - LISINOPRIL - Intervention Home Exercise/Activity Goal:: Sitting Time <3 hrs/day - Education Goals:: Warm-up, RPE JODI Scale, S/S, Safe Exercise, Self-Monitoring - Exercise Program Goals Exercise Program Goals: Aerobic Activity >30 min, B/P <130/80 Nutrition - Initial Assessment - Program Goals Nutrition Program Goals: LDL <70. Total Cholesterol <200. HDL >45. Triglycerides <150. HgbA1C <7%. BMI <25 - Stages of Change Stages of Change:: Action - Lipids Total Cholesterol (mg/dL) Goal = less than 200 mg/dL: 99 HDL Cholesterol (mg/dL) Goal = less than 45 mg/dL: 35 LDL Cholesterol (mg/dL) Goal = less than 70 mg/dL: 40 Triglycerides (mg/dL) Goal = less than 150 mg/dL: 122 Lipid Medication: ATORVASTATIN - Diabetes Diabetes:: No Do you monitor your blood sugar at home?: No - Weight Management Height: 5 ft 2 in Weight:: 165 lb - Intervention Referral to dietitian:: No Referral to Diabetic Clinic:: No Will attend diet classes:: Yes - CR CLASSES - Education Gave educational materials for:: Signs & symptoms of hypoglycemia, Signs & symptoms of hyperglycemia, Relate diabetes to coronary artery disease, Healthy eating - PT INFORMED OF THE 0N-LINE EDUCATION MATERIAL WELL Tobacco - Initial Assessment - Program Goals Tobacco Program Goals: Complete smoking cessation. Attend education classes. Improve Knowledge Test score - Stage of Change Stages of Change:: Action - Learning Barriers Learning Barriers: Vision, Ready to Learn - Family Support Do you have family support?: Yes - Tobacco Use Tobacco Use: Non-smoker How long ago did you quit using tobacco products?: Less than 6 months ago Years Smokin Do you use smokeless tobacco?: No - Intervention Smoking Cessation Referral:: No - PT IS RECENT NON-SMOKER. ENCOURAGED TO LET US KNOW IF SHE DESIRES SMOKE ISAIAH Individual Education/Counseling:: No Education Schedule Given:: Yes - CR CLASSES - Education Attended class for:: Treating Heart Disease, How The Heart Works, What it means to have Heart Disease, How Coronary Artery Disease is Diagnosed, Heart Procedures, What Heart Medications Do, Risk Factors & Modifications, Living an Active Life, Nutrition, Emotions & Heart Disease, Stress Management & Relaxation, Sleep Disorders & Heart Disease - PT INFORMED OF THE EDUCATION MATERIAL AVAIL ON-LINE AT [facility] WEBSITE Psychosocial - Initial Assess - Target Goals Target Goals: Assess presence or absence of depression. Using a valid screening tool, maximizes coping skills. Positive support system - Stages of Change Stages of Change:: Action - Psychosocial Test Tool Used:: HANDS Depression Questionnaire - Intervention PS - Interventions: Yes Attend Stress Management Classes - CR CLASSES, Yes Uses Stress Management Skills - CR CLASSES, No Referral to Mental Health, No Referral to [facility] Case Management, No Referral to Physician - Education Gave educational materials for:: Coping techniques, Signs & symptoms of depression, Stress management, Relaxation techniques - INFORMED OF CR EDUCATION MATERIAL AVAIL ON [facility] WEBSITE - Patient/Program Goal Preventative Medication(s):: Aspirin, ARTURO inhibitor, Clopidogrel, Statin/lipid - Assistive Devices Assistive Devices:: None Fall Risk Assessed:: Yes Patient Health Questionnaire Initial Assessment 1. Little interest or pleasure in doing things: Several days 2. Feeling down, depressed, or hopeless: Not at all 3. Trouble falling or staying asleep, or sleeping too much: Not at all 4. Feeling tired or having little energy: Several days 5. Poor appetite or overeating: Several days 6. Feeling bad about yourself -- or that you are a failure or have let yourself or your family down: Not at all 7. Trouble concentrating on things, such as reading the newspaper or watching television: Not at all 8. Moving or speaking so slowly that other people could have noticed. Or the opposite - being so fidgety or restless that you have been moving around a lot more than usual: Not at all 9. Thoughts that you would be better off , or of hurting yourself in some way: Not at all How difficult have these problems made it for you to do your work, take care of things at home, or get along with other people?: Somewhat difficult Total Score: 3 JOSE-Q SV Test - Statements CAD is a disease of the arteries in the heart: False Examples of risk factors for heart disease: True Angina is chest pain or discomfort: True The benefits of resistance training include: True Eating more meat and dairy products: False Anti-platelet medications such as aspirin are important: True The only effective way to manage stress: False An exercise warm-up slowly increases heart rate: True Prepared, processed foods usually have high sodium: True Depression is common after a heart attack: True The statin medications lower cholesterol: True To control blood pressure, lower the amount of sodium: True If someone gets chest discomfort during walking: False Transfats are partially hydrogenated vegetable oils: I Don't Know Sleep apnea that is not treated increases the risk: False To control cholesterol, one should become a vegetarian: False Someone knows if he/she is exercising at the right level: I Don't Know Diabetes cannot be prevented with exercise & health eating: I Don't Know Stress is a large risk for heart attack: True A diet that can help lower blood pressure is rich in: I Don't Know - Total Score Total Correct Responses: 16 Self-Efficacy Initial Assessment We would like to know how confident you are in doing certain activities. Please select your confidence level for:: Select your confidence level for the following using the scale 1-10 where 1 is not at all confident and 10 is totally confident. Your score is the average of all 6 responses. Fatigue: How confident are you that you can keep the fatigue caused by your disease from interfering with the things you want to do? Select Number: 3 Physical Discomfort or Pain: How confident are you that you can keep the physical discomfort or pain of your disease from interfering with the things you want to do? Emotional Distress: How confident are you that you can keep the emotional distress caused by your disease from interfering with the things you want to do? Select Number: 3 Other Symptoms or Health Problems: How confident are you that you can keep other symptoms or health problems from interfering with the things you want to do? Select Number: 3 Different Tasks and Activities: How confident are you that you can do the different tasks and activities needed to manage your health condition so as to reduce your need to see a doctor? Select Number: 2 Medication: How confident are you that you can do things other than just taking medication to reduce how much your illness affects your everyday life? Select Number: 2 Nutrition Survey - Nutrition Survey Instructions Scoring Instructions: Scoring is as follows: Yes = 1 points. No = 0 point. Patient score that is >/=12 is considered to be at potential nutritional risk and could benefit from a referral to a registered dietitian. - Nutrition Survey Initial Have you lost >10 lbs over the past 2 months without trying?: Yes Are you following a special diet at home for diabetes, low fat, or low salt?: Yes Are you interested in meeting with a dietitian for help understanding your diet?: Yes Do you eat less than 3 meals a day?: Yes Do you eat fatty meats (gillette, sausage, ribs, etc), fried foods, desserts, large amounts of salad dressings, margarine, butter, or cheese most days?: Yes Do you have food allergies? [Enter types in comment field]: No Do you eat in restaurants more than 3 times a week?: No Do you season food with salt, seasoning salt, or garlic salt?: No Do you used canned, boxed, frozen meals, or soups, seasoning packets?: No Total Score:: 5
[2019-03-30 09:02] VITALS: BP 100/60; BP 100/62; PULSE 80; RESP 16; TEMP 37; O2SAT 96; BMI 30.2
== END ==
PROVIDERS: Family Provider Family Medicine; PCP Family Medicine; Referring Provider Internal Medicine Cardiovascular Disease; Visit Provider Internal Medicine Cardiovascular Disease
DX: I25.10 Atherosclerotic heart disease of native coronary artery without angina pectoris (principal); I48.0 Paroxysmal atrial fibrillation; I11.0 Hypertensive heart disease with heart failure; I50.33 Acute on chronic diastolic (congestive) heart failure; I71.4 Abdominal aortic aneurysm, without rupture; E78.5 Hyperlipidemia, unspecified; I25.2 Old myocardial infarction; I73.9 Peripheral vascular disease, unspecified; J43.9 Emphysema, unspecified; F41.8 Other specified anxiety disorders; E66.9 Obesity, unspecified; K58.9 Irritable bowel syndrome, unspecified; Z98.62 Peripheral vascular angioplasty status; Z95.5 Presence of coronary angioplasty implant and graft; Z79.82 Long term (current) use of aspirin; Z79.01 Long term (current) use of anticoagulants; Z79.899 Other long term (current) drug therapy; Z87.891 Personal history of nicotine dependence

== ENCOUNTER → 2019-04-05 11:02 | Outpatient (CLI) | payer MEDICARE, MEDICAID, SELFPAY ==
[2019-03-18 11:16] VITALS: BMI 29.9
[2019-03-30 10:19] VITALS: BMI 28.9
== END ==
PROVIDERS: Family Provider Family Medicine; PCP Family Medicine; Referring Provider Internal Medicine Cardiovascular Disease; Visit Provider Internal Medicine Cardiovascular Disease
DX: I48.0 Paroxysmal atrial fibrillation (principal); I11.0 Hypertensive heart disease with heart failure; I50.33 Acute on chronic diastolic (congestive) heart failure; I25.110 Atherosclerotic heart disease of native coronary artery with unstable angina pectoris; I71.4 Abdominal aortic aneurysm, without rupture; F17.209 Nicotine dependence, unspecified, with unspecified nicotine-induced disorders; I25.2 Old myocardial infarction; Z95.5 Presence of coronary angioplasty implant and graft
CPT/HCPCS: 93225; 93226; 93798

== ENCOUNTER → 2019-04-14 09:15 | Outpatient (CLI) | payer MEDICARE, MEDICAID, SELFPAY ==
[2019-03-18 11:16] VITALS: BMI 29.9
[2019-04-06 08:27] VITALS: BMI 28.9
[2019-04-14 09:30] VITALS: PULSE 61; PULSE 62; PULSE 65; PULSE 73; PULSE 76; PULSE 77; O2SAT 93; O2SAT 95; O2SAT 96; O2SAT 97; O2SAT 98; O2SAT 99
--- NOTE | 2019-04-15 07:32 | WT_ITS ---
PSN 6 Minute Walk Test - 6 Minute Walk Test 6 Minute Walk Test: 6 Minute Walk Test PSN:6-Minute Walk Test Start: 04/14/19 09:47 Freq: Status: Active Protocol: [id number] Document 04/14/19 09:30 [facility] (Rec: 04/14/19 09:52 [facility] [id number]) 6 Minute Walk Test Date Performed 04/14/19 Time Performed 09:30 Height 5 ft 2 in Weight: 158 lb Weight in Pounds 158.[address]: Maya Klein Assistive device used: None Pre-test Oxygen Delivery Method Room Air Pulse Ox (%) 96 Pulse Rate (60-100 beats/min) 62 Dyspnea Sadie Scale (0-10) 0 Exertion Sadie Scale (6-20) 6 1st minute Oxygen Delivery Method Room Air Pulse Ox (%) 98 Pulse Rate (60-100 beats/min) 61 2nd minute Oxygen Delivery Method Room Air Pulse Ox (%) 96 Pulse Rate (60-100 beats/min) 73 3rd minute Oxygen Delivery Method Room Air Pulse Ox (%) 95 Pulse Rate (60-100 beats/min) 76 4th minute Oxygen Delivery Method Room Air Pulse Ox (%) 93 Pulse Rate (60-100 beats/min) 76 5th minute Oxygen Delivery Method Room Air Pulse Ox (%) 97 Pulse Rate (60-100 beats/min) 77 6th minute Oxygen Delivery Method Room Air Pulse Ox (%) 99 Pulse Rate (60-100 beats/min) 73 Dyspnea Sadie Scale (0-10) 1 Exertion Sadie Scale (6-20) 11 Post-test Oxygen Delivery Method Room Air Pulse Ox (%) 99 Pulse Rate (60-100 beats/min) 65 Full Laps Walked 16 Partial Lap, Number of Tiles Walked 13 Total Distance Walked (ft) 957 - Interpretation Interpretation: The patient ambulated 957 feet over the course of 6 minutes beginning on room air without assistive devices or breaks. Pretesting oxygen saturation was noted to be 96% on room air. With ambulation, the tameka oxygen saturation was 93%. There was no significant exertional oxygen desaturation. - Recommendations Recommendations: There is no indication for the use of supplemental oxygen at this time.
== END ==
PROVIDERS: PCP Family Medicine; Referring Provider Nurse Practitioner Acute Care; Visit Provider Nurse Practitioner Acute Care
DX: J44.9 Chronic obstructive pulmonary disease, unspecified (principal)
CPT/HCPCS: 94618

== ENCOUNTER 2019-04-16 08:00 | Outpatient (RCR) | payer MEDICARE, MEDICAID, SELFPAY ==
[2019-03-18 11:16] VITALS: BMI 29.9
[2019-03-30 09:02] VITALS: BMI 30.2
[2019-03-30 10:19] VITALS: BMI 28.9
== END 2019-04-16 23:59 ==
LOC: CR 08:00
PROVIDERS: Family Provider Family Medicine; PCP Family Medicine; Referring Provider Internal Medicine Cardiovascular Disease; Visit Provider Internal Medicine Cardiovascular Disease
DX: I11.0 Hypertensive heart disease with heart failure (principal); I50.33 Acute on chronic diastolic (congestive) heart failure; I25.110 Atherosclerotic heart disease of native coronary artery with unstable angina pectoris; I71.4 Abdominal aortic aneurysm, without rupture; F17.200 Nicotine dependence, unspecified, uncomplicated; I70.209 Unspecified atherosclerosis of native arteries of extremities, unspecified extremity; I25.10 Atherosclerotic heart disease of native coronary artery without angina pectoris; I21.4 Non-ST elevation (NSTEMI) myocardial infarction; I48.0 Paroxysmal atrial fibrillation; Z95.5 Presence of coronary angioplasty implant and graft
CPT/HCPCS: 93798

== ENCOUNTER → 2019-04-21 22:54 | Outpatient (CLI) | payer MEDICARE, MEDICAID, SELFPAY ==
[2019-03-18 11:16] VITALS: BMI 29.9
[2019-04-06 08:27] VITALS: BMI 28.9
== END ==
PROVIDERS: PCP Family Medicine; Referring Provider Nurse Practitioner Acute Care; Visit Provider Nurse Practitioner Acute Care
DX: G47.33 Obstructive sleep apnea (adult) (pediatric) (principal); J44.9 Chronic obstructive pulmonary disease, unspecified
CPT/HCPCS: 95811

== ENCOUNTER → 2019-04-27 11:03 | Outpatient (CLI) | payer MEDICARE, MEDICAID, SELFPAY ==
[2019-03-18 11:16] VITALS: BMI 29.9
[2019-04-06 08:27] VITALS: BMI 28.9
--- NOTE | 2019-04-28 13:37 | PFT ---
INTRODUCTION: The patient is a 69-year-old female that presents for pulmonary function studies secondary to a diagnosis of COPD. Respiratory therapy reports good patient effort. Bronchodilators were used during testing. INTERPRETATION: Forced expiration spirometry demonstrates no evidence of a large airways obstructive ventilatory defect. There was no significant response to aerosolized bronchodilators. Spirograms are of good quality and plateau normally. Body plethysmography was performed and reveals lung volumes to be within normal limits. Diffusing capacity by single breath CO is at the lower limits of normal. When compared to previous pulmonary function studies from October 2016, there has been a 12% reduction in diffusing capacity. IMPRESSION: Normal spirometry and lung volumes. Diffusing capacity is at the lower limits of normal.
== END ==
PROVIDERS: PCP Family Medicine; Referring Provider Nurse Practitioner Acute Care; Visit Provider Nurse Practitioner Acute Care
DX: J44.9 Chronic obstructive pulmonary disease, unspecified (principal)
CPT/HCPCS: 94060; 94726; 94729

== ENCOUNTER 2019-05-14 08:00 | Outpatient (RCR) | payer MEDICARE, MEDICAID, SELFPAY ==
[2019-03-18 11:16] VITALS: BMI 29.9
[2019-04-06 08:27] VITALS: BMI 28.9
--- NOTE | 2019-04-30 08:06 | CR.ITP_ITS ---
Diagnosis - General Information Admitting Diagnosis: PCI w/CORONARY STENTING Personal Learning Style:: Audio/Visual, Written Barriers to Learning: No Barriers Stage of change r/t lifestyle modifications:: Action Gave educational material for:: Treating Heart Disease, Emotions & Heart Disease, Stress Management & Relaxation, Sleep Disorders & Heart Disease, How The Heart Works, What it means to have Heart Disease, How Coronary Artery Disease is Diagnosed, Heart Procedures, What Heart Medications Do, Risk Factors & Modifications, Living an Active Life, Nutrition - Education/Goals Individual Counseling: Initial Assessment: Nicotine/Smoking, Abnormal Cholesterol Levels, High Blood Pressure, Overweight/Obesity Cardiac Rehabilitation Goals: 1. Maintain the individual as the primary focus of care. 2. To improve the patient's quality of life. 3. Identification of cardiac risk factors and provide cardiac risk factor management. 4. Enhance the psychosocial status of the patient. 5. Reconditioning enough to allow the patient to resume customary activities. 6. Control symptoms of cardiac disease Personal Goals: Initial Assessment: Quit smoking (participate in smoking cessation, Improve management of stress and emotions, Improve energy level, Participate in home exercise program, Get back to work, or to resume activities faster, Improve knowledge of cardiac disease, Improve muscle strength and endurance, Improve diet and eating habits (eat healthier), Control risk factors (learn risk factor modification) Scale for measuring improvement of personal goals: Enter appropriate number in Comments. 2 = Unchanged. 3 = Slightly Better. 4 = Moderate Improvement. 5 = Met my Goal - Diagnosis & Disease Process Outcomes/Goals: Pt IDs own risk factors & lifestyle modifications by Session 10, Verbalizes symptoms of angina & response by session 3., Pt independently manages Plan/Interventions: Assist Pt to ID & engage in lifestyle modification to reduce CVD risk, Instruct on individual risk factors, Review symptoms of angina & em ergency actions, Review secondary diagnosis & identify educational needs. 30 day Reassessments:: Progressing - Safety Referral to Physical Therapy: No Referral to [facility] Case Management: No Fall Risk Assessed:: Yes Assistive Devices:: None Exercise - 30-day Assessment - Visit Date of Eval: 04/30/19 Session #:: 12 - Physician Prescribed Exercise Modalities: Treadmill, Airdyne, NuStep Frequency: 3x/week for 12 weeks [36 sessions] Intensity: 60-80% of age predicted maximum heart rate reserve Current METSs:: 3.5 Target Heart Rate:: 97-127 Current RPE:: 12-13 Maximum Excercise HR:: 109 Resting Blood Pressure: 124/66 Maximum Exercise Blood Pressure: 198/60 EKG Type: NSR with rare PAC Current Physical Activity or Exercising minutes: 30 MIN TWICE DAILY - Outcomes & Goals Goals:: Verbalizes understanding of THR, RPE & goal METS by session 6, Documents in home exercise log/reports 30 min aerobic 5 day/wk by DC, Demonstrates accurate pulse taking by DC - Intervention & Plan Exercise Program Goals: Instruct on personal THR & RPE, Instruct on MET level & personal MET goal, Show patient to take own pulse /validate performance until accurate, Instruct on home exercise - 30-day Reassessments 30 day Reassessments:: Progressing - Physical Activity Home Exercise Physical Activity - Home Exercise: Safe Exercise, Warm-up, Self-monitoring, Cool-Down, Home Exercise > 30 min Daily, Sitting Time <3 hours/daily - Outcomes & Goals Outcomes/Goals: Demonstrates correct Warm-up/exercise Cool-Down (S3) if = 2.5 METs, Verbalizes symptoms of exercise intolerance by Session 3 (S3), Demonstrate safe equipment use (S3) & follows exercise prescrition (6) - Intervention & Plan Plan/Intervention: Instruct warm-up & cool-down if exercising at > 2 METs, Instruct on symptoms of exercise intolerance & actions to take, Instruct & monitor on saf, Assess intial functional capacity & safety risk - 30-day Reassessments 30 day Reassessments:: Progressing Nutrition - 30-Day Assessment - Program Goals Nutrition Program Goals: LDL <100 optimal. 100 - 129 Near optimal. 130 - 159 Borderline High. 160 - 189 High. Total Cholesterol <200 desirable. 200 - 239 Borderline High. >/= 240 High. HDL < 40 Low >/=60 High. Triglycerides <150 desirable. <199 optimal. VlDL 5 - 40. HgbA1C <7%. BMI <25 Patient has diagnosis of Hyperlipidemia (ICD E78)?: Yes - Visit Date of Assessment:: 04/30/19 Session #:: 12 - Cholesterol/Lipids Triglycerides (mg/dL): 122 - 03/19/2019 Total Cholesterol (mg/dL): 99 LDL Cholesterol (mg/dL): 40 HDL Cholesterol (mg/dL): 35 Determine presence & major risk factors that modify LDL goal: Cigarette smoking, Hypertension or hypertensive medication, Low HDL cholesterol <40 mg/dL*, Family history of premature CHD in Male < 55 years: female <65 yearsFa, Age men > 45 years; women >/= 55 years Outcomes/Goals: Pt IDs own risk factors & lifestyle modifications by Session 10, Verbalizes symptoms of angina & response by session 3., Pt independently manages Intervention/Plan: Instruct on personal lipid levels & lipid goals/NCEP guidelines, Instruct on cholesterol Referral to dietitian:: Yes - MEDICAL NUTRITION THERAPY - Diabetes (Other Core Measures) Diabetes Type: Not Applicable - Weight Mgt (Other Care) Not Applicable: Yes Height: 5 ft 2 in Weight:: 162 lb BMI: 29.6 Diagnosis Overweight/Obesity BMI> 30% ICD-10 E66: Yes Outcomes/Goals: Pt sets, maintains & shows weight loss goal & trend during rehab Intervention/Plan: Instruct on ideal BMI & set weight loss goal w/patient, Assist pt to ID & incorporate diet changes for weight loss by S9, Refer to Structured Weight Loss program as appropriate, Encourage goal of using 250- 300dcal per session for weight loss 30 day Reassessments:: Not Met - Healthy Eating Habits Will attend diet classes:: Yes Outcomes/Goals:: Consume diet rich in vegs,fruits,whole grain/high fiber,fish,lean meat, Limit sat/trans fats,cholesterol & added salts & sugars Intervention/Plan:: Assess current eating habits 30-day Reassessments:: Progressing - Education Gave educational materials for:: Healthy eating Medical- 30-Day Assessment - Visit Date of Eval: 04/30/19 Session #:: 12 - Medication Compliance Preventative Medication(s):: Aspirin, Clopidogrel/P2Y12 inhibit, Statin/lipid, Beta declan H/O mental health issues: depression, anxiety, or addiction?: No Doesn?t believe in the benefits of treatment?: No Believes medications are unnecessary or harmful?: No Has a concern about medication side effects?: No Expresses concern over the cost of medications?: No Outcomes/Goals: Verbalizes medications,desired effect & common side effects @ DC, Pt self-reports following medication regimen, Keeps card in wallet w/medications listed by DC Interventions/plans: Instruct on medication effects & side effects, Review medication list w/patient every two weeks, Instruct importance of taking meds as ordered & assist problem solving 30-day Reassessments:: Progressing - Tobacco Use Tobacco Use: Cigarettes Do you use smokeless tobacco?: Yes Outcomes/Goals: Smoking cessation achieved or maintained by discharge, Identify aids/strategies for achieving smoking cessation by session 6 Interventions/plan: Instruct on effects of smoking & provide smoking cessation resource, Assist pt to set quit date & provide encouragement, Assist pt to develop strategies to achieve/maintain quit date, Assist pt w/nicotine replacement & medication for cessation success 30-day Reassessments:: Progressing Reassessment Notes & Comments:: ANNETTE STATES SHE HAS CUT BACK BUT CANNOT INDICATE HOW MANY SHE SMOKES PER DAY. - Hypertension Hypertension Diagnosis:: Hypertension ICD-10 I10 Resting Blood Pressure:: 124/66 [employer] Hypertension Guidelines: [employer] Hypertension Guidelines. Normal BP Less than 120/80. Elevated BP 120/80. Hypertension Stage 1: BP 130-139/80-89. Hypertesnion Stage 2: BP 140 or higher/90 or higher. Hypertension Crisis: BP higher than 180/120 Peak Exercise Blood Pressure:: 198/60 Outcomes/Goals: Able to verbalize/achieve optimal blood pressure <130/80, Incorporates diet changes & exercise for blood pressure control by DC Interventions/plan: Instruct on optimal blood pressure, hypertension & medications, Instruct on effects of sodium, alcohol, stress, exercise &hypertension 30 day Reassessments:: Progressing - Tobacco Cessation Referral Smoking Cessation Referral:: Yes - PATIENT IS STILL SMOKING AND EXPRESSED A DESIRE TO QUIT. Individual Education/Counseling:: Yes Education Schedule Given:: Yes Psychosocial - 30-Day Assess - VIsit Date of Eval: 04/30/19 Not Applicable: Yes History of previous Mental disease:: No - Target Goals Target Goals: Assess presence or absence of depression. Using a valid screening tool, maximizes coping skills. Positive support system - Psychosocial Test Tool Used:: Yobany Hernandez QOL Cardiac, PHQ-9 Questionnaire phq-9 Severity: Severity. 1-4 Minimal Depression. 5-9 Mild Depression. 10-14 Moderate Depression. 15-19 Moderately Sever Depression. 20-27 Severe Depression. Rule: Total Score:: 3 - Referral to Behavioral Health PS - Interventions: Yes Attend Stress Management Classes, No Referral to Behavioral Health if PHQ-9 score >9:, No Referral to [facility], No Referral to Physician if PHQ-9 if score is 5-9: - Outcomes/Goals: See list Psychosocial Outcomes/Goals:: ID's personal stressors & 2 strategies to manage stress by discharge - Intervention/Plan: See List Interventions/Plan:: Assess stressors,coping strategies & signs of derpression on admission, Instruct/assist pt to develop coping & personal stress Mgt strategies, Instruct patient to recognize signs & symptoms of depression, Instruct patient to recog Patient Health Questionnaire 30-Day Re-eval Assessment 1. Little interest or pleasure in doing things: Several days 2. Feeling down, depressed, or hopeless: Not at all 3. Trouble falling or staying asleep, or sleeping too much: Not at all 4. Feeling tired or having little energy: Several days 5. Poor appetite or overeating: Several days 6. Feeling bad about yourself -- or that you are a failure or have let yourself or your family down: Not at all 7. Trouble concentrating on things, such as reading the newspaper or watching television: Not at all 8. Moving or speaking so slowly that other people could have noticed. Or the opposite - being so fidgety or restless that you have been moving around a lot more than usual: Not at all 9. Thoughts that you would be better off , or of hurting yourself in some way: Not at all How difficult have these problems made it for you to do your work, take care of things at home, or get along with other people?: Not difficult at all Total Score: 3 Self-Efficacy 30-Day Re-eval Assessment We would like to know how confident you are in doing certain activities. Please select your confidence level for:: Select your confidence level for the following using the scale 1-10 where 1 is not at all confident and 10 is totally confident. Your score is the average of all 6 responses. Fatigue: How confident are you that you can keep the fatigue caused by your disease from interfering with the things you want to do? Select Number: 5 Physical Discomfort or Pain: How confident are you that you can keep the physical discomfort or pain of your disease from interfering with the things you want to do? Select Number: 5 Emotional Distress: How confident are you that you can keep the emotional distress caused by your disease from interfering with the things you want to do? Select Number: 5 Other Symptoms or Health Problems: How confident are you that you can keep other symptoms or health problems from interfering with the things you want to do? Select Number: 4 Different Tasks and Activities: How confident are you that you can do the different tasks and activities needed to manage your health condition so as to reduce your need to see a doctor? Select Number: 5 Medication: How confident are you that you can do things other than just taking medication to reduce how much your illness affects your everyday life? Select Number: 6 Total Score:: 5
[2019-04-30 08:16] VITALS: BP 124/66; BP 198/60; BMI 29.6
== END 2019-05-15 23:59 ==
LOC: CR 08:00
PROVIDERS: Family Provider Family Medicine; PCP Family Medicine; Referring Provider Internal Medicine Cardiovascular Disease; Visit Provider Internal Medicine Cardiovascular Disease
DX: I11.0 Hypertensive heart disease with heart failure (principal); I50.33 Acute on chronic diastolic (congestive) heart failure; I25.110 Atherosclerotic heart disease of native coronary artery with unstable angina pectoris; I71.4 Abdominal aortic aneurysm, without rupture; F17.200 Nicotine dependence, unspecified, uncomplicated; I70.209 Unspecified atherosclerosis of native arteries of extremities, unspecified extremity; I25.10 Atherosclerotic heart disease of native coronary artery without angina pectoris; I21.4 Non-ST elevation (NSTEMI) myocardial infarction; I48.0 Paroxysmal atrial fibrillation; Z95.5 Presence of coronary angioplasty implant and graft
CPT/HCPCS: 93798

== ENCOUNTER 2019-05-30 18:10 | Emergency (ER) | payer MEDICARE, MEDICAID, SELFPAY ==
[2019-04-06 08:27] VITALS: BMI 28.9
[2019-05-21 09:23] VITALS: BMI 28.7
[2019-05-30 18:12] VITALS: BP 106/70; PULSE 59; RESP 17; TEMP 36.8; O2SAT 98; BMI 29.5
--- NOTE | 2019-05-30 19:07 | ED.VIS.GEN ---
History of Present Illness Chief Complaint: Lower Extremity Injury Detail of Chief Complaint: Right leg pain Informant: Patient Onset: Days - 4 days Context: Gradual Onset Current Severity: Moderate Maximum Severity: Moderate Narrative: Patient presents with right leg pain ongoing for the past 4 days. She denies any known injury. She reports pain from her right lower back down to the bottom of her foot. She is had sciatica on the left previously but never on the right. She has also has a history of peripheral arterial disease and has stents in both legs. She states she attempted to call her vascular surgeon to be seen but was told to follow-up with her PCP. She has an appointment tomorrow morning, however realize that she is supposed to be in cardiac rehab at the same time so just came to the emergency room tonight secondary to increased pain. She is been taking Tylenol without significant improvement. - Past Medical History (1) Abdominal aortic aneurysm (AAA) Status: Chronic Comment: Redemonstration of infrarenal abdominal aortic aneurysm measuring up to 4.4 cm x 4.4 cm essentially similar to previous exam. 01/21/2019 (2) Acute on chronic diastolic (congestive) heart failure Status: Chronic (3) Atherosclerotic heart disease of [place] coronary artery without angina pectoris Status: Chronic (4) COPD (chronic obstructive pulmonary disease) Status: Chronic (5) Essential (primary) hypertension Status: Chronic (6) HLD (hyperlipidemia) Status: Chronic (7) Non-STEMI (non-ST elevated myocardial infarction) Status: Chronic Comment: 04/21/2015, 03/19/2019 (8) BELLE (obstructive sleep apnea) Status: Chronic Comment: Supposed to be on BiPAP (9) Paroxysmal atrial fibrillation Status: Chronic (10) Peripheral vascular occlusive disease Status: Chronic Comment: Bilateral SFA stents. Occluded Right SFA and angioplasty of in-stent stenosis of her left SFA. (11) History of coronary artery stent placement Status: Resolved Comment: [id number] LCx and OM 03/20/99; PCI-CARMEN of distal RCA and POBA-ostium of posterolateral branch for stent jailing; PCI-CARMEN to RCA and PDA 02/20; PCI-CARMEN to ISR-RCA 04/21/2015; [id number] RPDA w/ 2.5 x 24 mm Promus Stent and Distal RCA w/ 3.0 x 16 mm Promus Stent and POBA Ostial RPLB 03/18/2019 Past Medical History - Allergies and Home Meds Allergies/Adverse Reactions: Allergies lisinopril Allergy (Verified 04/09/19 09:37) tongue swelling Primary Care Physician: Feng Hayes MD [Primary Care Provider] - 3-5 Days if not improving Prior records reviewed: Yes Surgical History: - - LE intervention for PAD per Dr. Gar, cardiac catheterizations w/ total PCI x 7, Lower back injections, DIOMEDES, T+A, R foot surgery. Smoking Status: Former smoker - Family History Maternal Family History: Family History (Last Reviewed 04/06/19 @ 08:36 by CHINO Hurley) Father Heart disease Hypertension Seizures Sister CVA (cerebral vascular accident) Hypertension Other Family history of hypertension Family History: Reports: Diabetes, High Cholesterol, Heart Disease, Hypertension, Stroke Paternal Family History: Family History (Last Reviewed 04/06/19 @ 08:36 by CHINO Hurley) Father Heart disease Hypertension Seizures Sister CVA (cerebral vascular accident) Hypertension Other Family history of hypertension Family History: Reports: Diabetes, High Cholesterol, Heart Disease, Hypertension, Stroke Review of Systems General: Denies: Chills, Fever Eyes: Denies: Visual changes - bilaterally ENT: Denies: Bilateral ear pain Cardiovascular: Denies: Chest pain Respiratory: Denies: Dyspnea, Cough Gastrointestinal: Denies: Abdominal pain, Nausea, Vomiting, Diarrhea Genitourinary: Denies: Dysuria Musculoskeletal: Reports: Extremity Pain Skin: Denies: Rash Neurological: Reports: Parasthesia. Denies: Weakness Hematologic: Denies: Easy bruising Allergy: Denies: Uticaria Physical Exam Vital Signs/Narrative: Vital Signs Temp Pulse Resp BP Pulse Ox 05/30/19 18:12 98.2 F 59 L 17 106/70 98 Inital Vital Signs reviewed: Yes General: Well nourished, Well developed Head: Normocephalic ENT: Moist mucous membranes Neck: Supple Cardiovascular: Regular rate, Regular rhythm Respiratory: No distress, CTA bilaterally Abdomen: Soft, Nontender Back: - - Reproducible tenderness of the right sciatic notch. No midline thoracic or lumbar tenderness. Extremities: Nontender, - - No reproducible tenderness over the musculature of the thigh or calf. No significant edema noted. Strong distal pulses and normal sensation are noted on testing. Skin: Normal color, No rash Neurological: Alert, Oriented x3, Normal Strength, Normal Sensation Psychological: Normal affect Diagnostic/Tx/Re-eval - Medical Decision Making Patient's exam findings are consistent with sciatica. Because she does have history of arterial disease with stents I will have her come back tomorrow for an arterial study of her legs to ensure no problems with that. Patient has strong distal pulse with a warm foot at this time. She will be treated with a new prescription for [place] as well as Flexeril. She was warned of the sedating side effect of this medication and understands. Because she is on blood thinners I will not add steroids as I do not want to cause increased gastric irritation. Patient voices understanding and agreement. ED Disposition - Plan for ED Patient: Disposition: Home or Assisted Living Diagnosis: Sciatica Instructions: BACK PAIN w/ SCIATICA Prescriptions: cycloBENZAPRine HCl [Flexeril] 10 mg PO TID PRN #20 tab PRN Reason: Muscle Spasm Prescription Printed Hydrocodone Bitart/Apap 5-325 [[place] 5MG-325MG] 1 tab PO Q6H PRN PRN 3 Days #10 tab PRN Reason: Pain Prescription Printed Referrals: Feng Hayes MD [Primary Care Provider] - 3-5 Days if not improving
[2019-05-30 19:55] VITALS: BP 175/75; PULSE 59; RESP 18; O2SAT 98
== END 2019-05-30 19:58 | disposition home or self-care (01) ==
LOC: ED 19:15
PROVIDERS: Emergency Provider Emergency Medicine; PCP Family Medicine
DX: M54.41 Lumbago with sciatica, right side (principal); I71.4 Abdominal aortic aneurysm, without rupture; I11.0 Hypertensive heart disease with heart failure; I50.33 Acute on chronic diastolic (congestive) heart failure; I25.10 Atherosclerotic heart disease of native coronary artery without angina pectoris; J44.9 Chronic obstructive pulmonary disease, unspecified; E78.5 Hyperlipidemia, unspecified; I25.2 Old myocardial infarction; I48.0 Paroxysmal atrial fibrillation; I73.9 Peripheral vascular disease, unspecified; G47.33 Obstructive sleep apnea (adult) (pediatric); Z95.5 Presence of coronary angioplasty implant and graft; Z95.828 Presence of other vascular implants and grafts; Z79.82 Long term (current) use of aspirin; Z79.899 Other long term (current) drug therapy; Z87.891 Personal history of nicotine dependence
CPT/HCPCS: 99282

== ENCOUNTER 2019-06-02 08:00 | Outpatient (RCR) | payer MEDICARE, MEDICAID, SELFPAY ==
[2019-04-06 08:27] VITALS: BMI 28.9
[2019-04-30 08:16] VITALS: BMI 29.6
[2019-05-16 00:51] VITALS: BP 124/66; BP 198/60
--- NOTE | 2019-05-21 09:14 | CR.ITP_ITS ---
Diagnosis - General Information Admitting Diagnosis: PCI w/coronary stenting Personal Learning Style:: Audio/Visual, Written Barriers to Learning: No Barriers Stage of change r/t lifestyle modifications:: Action Gave educational material for:: Treating Heart Disease, Emotions & Heart Disease, Stress Management & Relaxation, Sleep Disorders & Heart Disease, How The Heart Works, What it means to have Heart Disease, How Coronary Artery Disease is Diagnosed, Heart Procedures, What Heart Medications Do, Risk Factors & Modifications, Living an Active Life, Nutrition - Education/Goals Individual Counseling: Initial Assessment: Nicotine/Smoking - continued tobacco abuse, Abnormal Cholesterol Levels - HLD, High Blood Pressure - HTN, Overweight/Obesity - BMI 30.5 Cardiac Rehabilitation Goals: 1. Maintain the individual as the primary focus of care. 2. To improve the patient's quality of life. 3. Identification of cardiac risk factors and provide cardiac risk factor management. 4. Enhance the psychosocial status of the patient. 5. Reconditioning enough to allow the patient to resume customary activities. 6. Control symptoms of cardiac disease Personal Goals: Initial Assessment: Quit smoking (participate in smoking cessation - 2, Improve management of stress and emotions - 3, Improve energy level - 4, Participate in home exercise program - 3, Get back to work, or to resume activities faster - 4, Improve knowledge of cardiac disease - 4, Improve muscle strength and endurance - 4, Improve diet and eating habits (eat healthier) - 3, Control risk factors (learn risk factor modification) - 3 Scale for measuring improvement of personal goals: Enter appropriate number in Comments. 2 = Unchanged. 3 = Slightly Better. 4 = Moderate Improvement. 5 = Met my Goal Exercise - 60-day Assessment - Visit Date of Eval: 05/21/19 Session #:: 22 - Physician Prescribed Exercise Modalities: Treadmill, Rower, Airdyne, NuStep Frequency: 3x/week for 12 weeks [36 sessions] Intensity: 60-80% of age predicted maximum heart rate reserve Current METSs:: 3.5 UNCHANGED Target Heart Rate:: 97-127 Current RPE:: 11-14 Maximum Excercise HR:: 114 Resting Blood Pressure: 148/64 Maximum Exercise Blood Pressure: 192/62 EKG Type: NSR w/BBB rare PVCs. Current Physical Activity or Exercising minutes: Daily active sits <3 hours, no regular home exercise - Outcomes & Goals Goals:: Verbalizes understanding of THR, RPE & goal METS by session 6, Documents in home exercise log/reports 30 min aerobic 5 day/wk by DC, Demonstrates accurate pulse taking by DC - Intervention & Plan Exercise Program Goals: Instruct on personal THR & RPE, Instruct on MET level & personal MET goal, Show patient to take own pulse /validate performance until accurate, Instruct on home exercise - 30-day Reassessments 30 day Reassessments:: Progressing - Physical Activity Home Exercise Physical Activity - Home Exercise: Safe Exercise, Warm-up, Self-monitoring, Cool-Down, Home Exercise > 30 min Daily, Sitting Time <3 hours/daily - Outcomes & Goals Outcomes/Goals: Demonstrates correct Warm-up/exercise Cool-Down (S3) if = 2.5 METs, Verbalizes symptoms of exercise intolerance by Session 3 (S3) - Intervention & Plan Plan/Intervention: Instruct warm-up & cool-down if exercising at > 2 METs, Instruct on symptoms of exercise intolerance & actions to take, Instruct & monitor on saf, Assess intial functional capacity & safety risk - 30-day Reassessments 30 day Reassessments:: Progressing Nutrition - 60-Day Assessment - Program Goals Nutrition Program Goals: LDL <100 optimal. 100 - 129 Near optimal. 130 - 159 B orderline High. 160 - 189 High. Total Cholesterol <200 desirable. 200 - 239 Borderline High. >/= 240 High. HDL < 40 Low >/=60 High. Triglycerides <150 desirable. <199 optimal. VlDL 5 - 40. HgbA1C <7%. BMI <25 Patient has diagnosis of Hyperlipidemia (ICD E78)?: Yes - Visit Date of Assessment:: 05/21/19 Session #:: 22 - Cholesterol/Lipids Triglycerides (mg/dL): 122 - 03/19/2019 Total Cholesterol (mg/dL): 99 LDL Cholesterol (mg/dL): 40 HDL Cholesterol (mg/dL): 35 Determine presence & major risk factors that modify LDL goal: Cigarette smoking, Hypertension or hypertensive medication, Low HDL cholesterol <40 mg/dL*, Age men > 45 years; women >/= 55 years Outcomes/Goals: Pt IDs own risk factors & lifestyle modifications by Session 10, Verbalizes symptoms of angina & response by session 3., Pt independently manages Intervention/Plan: Instruct on personal lipid levels & lipid goals/NCEP guidelines, Instruct on cholesterol Referral to dietitian:: Yes 30-day Reassessments:: Progressing - Diabetes (Other Core Measures) Diabetes Type: Not Applicable - Weight Mgt (Other Care) Not Applicable: No Height: 5 ft 2 in Weight:: 157 lb BMI: 28.7 Diagnosis Overweight/Obesity BMI> 30% ICD-10 E66: No Diagnosis High BMI/Morbid Obesity BMI> 35% ICD-10 Z68: No Outcomes/Goals: Pt sets, maintains & shows weight loss goal & trend during rehab Intervention/Plan: Instruct on ideal BMI & set weight loss goal w/patient, Assist pt to ID & incorporate diet changes for weight loss by S9, Encourage goal of using 250-300dcal per session for weight loss 30 day Reassessments:: Progressing - Healthy Eating Habits Will attend diet classes:: Yes Outcomes/Goals:: Consume diet rich in vegs,fruits,whole grain/high fiber,fish,lean meat, Limit sat/trans fats,cholesterol & added salts & sugars Intervention/Plan:: Assess current eating habits 30-day Reassessments:: Progressing - Education Gave educational materials for:: Healthy eating Medical- 60-Day Assessment - Visit Date of Eval: 05/21/19 Session #:: 22 - Medication Compliance Preventative Medication(s):: Aspirin, Clopidogrel/P2Y12 inhibit, Statin/lipid, Beta declan H/O mental health issues: depression, anxiety, or addiction?: No Doesn?t believe in the benefits of treatment?: No Believes medications are unnecessary or harmful?: No Has a concern about medication side effects?: No Expresses concern over the cost of medications?: No Outcomes/Goals: Verbalizes medications,desired effect & common side effects @ DC, Pt self-reports following medication regimen, Keeps card in wallet w/medications listed by DC Interventions/plans: Instruct on medication effects & side effects, Review medication list w/patient every two weeks, Instruct importance of taking meds as ordered & assist problem solving 30-day Reassessments:: Progressing - Tobacco Use Tobacco Use: Cigarettes Do you use smokeless tobacco?: No Outcomes/Goals: Smoking cessation achieved or maintained by discharge, Identify aids/strategies for achieving smoking cessation by session 6 Interventions/plan: Instruct on effects of smoking & provide smoking cessation resource, Assist pt to set quit date & provide encouragement, Assist pt to develop strategies to achieve/maintain quit date, Assist pt w/nicotine replacement & medication for cessation success 30-day Reassessments:: Not Met - Hypertension Hypertension Diagnosis:: Hypertension ICD-10 I10 Resting Blood Pressure:: 148/84 [employer] Hypertension Guidelines: [employer] Hypertension Guidelines. Normal BP Less than 120/80. Elevated BP 120/80. Hypertension Stage 1: BP 130-139/80-89. Hypertesnion Stage 2: BP 140 or higher/90 or higher. Hypertension Crisis: BP higher than 180/120 Peak Exercise Blood Pressure:: 192/62 Outcomes/Goals: Able to verbalize/achieve optimal blood pressure <130/80, Incorporates diet changes & exercise for blood pressure control by DC Interventions/plan: Instruct on optimal blood pressure, hypertension & medications, Instruct on effects of sodium, alcohol, stress, exercise &hypertension 30 day Reassessments:: Progressing - Tobacco Cessation Referral Smoking Cessation Referral:: Yes Individual Education/Counseling:: Yes Education Schedule Given:: Yes Psychosocial - 60-Day Assess - VIsit Date of Eval: 05/21/19 Session #:: 22 Not Applicable: Yes History of previous Mental disease:: No History of Emotional Disorders: Anxious - Target Goals Target Goals: Assess presence or absence of depression. Using a valid screening tool, maximizes coping skills. Positive support system - Psychosocial Test Tool Used:: [employer] QOL Cardiac, PHQ-9 Questionnaire phq-9 Severity: Severity. 1-4 Minimal Depression. 5-9 Mild Depression. 10-14 Moderate Depression. 15-19 Moderately Sever Depression. 20-27 Severe Depression. Rule: - Referral to Behavioral Health PS - Interventions: Yes Attend Stress Management Classes, No Referral to Behavioral Health if PHQ-9 score >9:, No Referral to [facility], No Referral to Physician if PHQ-9 if score is 5-9: - Outcomes/Goals: See list Psychosocial Outcomes/Goals:: ID's personal stressors & 2 strategies to manage stress by discharge - Intervention/Plan: See List Interventions/Plan:: Assess stressors,coping strategies & signs of derpression on admission, Instruct/assist pt to develop coping & personal stress Mgt strategies, Refer to Behavioral Health if appropriate, Refer to Physician if appropriate, Instruct patient to recognize signs & symptoms of depression, Instruct patient to recog Patient Health Questionnaire 60-Day Re-eval Assessment 1. Little interest or pleasure in doing things: Several days 2. Feeling down, depressed, or hopeless: Not at all 3. Trouble falling or staying asleep, or sleeping too much: Not at all 4. Feeling tired or having little energy: Several days 5. Poor appetite or overeating: Several days 6. Feeling bad about yourself -- or that you are a failure or have let yourself or your family down: Not at all 7. Trouble concentrating on things, such as reading the newspaper or watching television: Not at all 8. Moving or speaking so slowly that other people could have noticed. Or the opposite - being so fidgety or restless that you have been moving around a lot more than usual: Not at all 9. Thoughts that you would be better off , or of hurting yourself in some way: Not at all How difficult have these problems made it for you to do your work, take care of things at home, or get along with other people?: Not difficult at all Total Score: 3 Self-Efficacy 60-Day Re-eval Assessment We would like to know how confident you are in doing certain activities. Please select your confidence level for:: Select your confidence level for the following using the scale 1-10 where 1 is not at all confident and 10 is totally confident. Your score is the average of all 6 responses. Fatigue: How confident are you that you can keep the fatigue caused by your disease from interfering with the things you want to do? Select Number: 6 Physical Discomfort or Pain: How confident are you that you can keep the physical discomfort or pain of your disease from interfering with the things you want to do? Select Number: 6 Emotional Distress: How confident are you that you can keep the emotional distress caused by your disease from interfering with the things you want to do? Select Number: 6 Other Symptoms or Health Problems: How confident are you that you can keep other symptoms or health problems from interfering with the things you want to do? Select Number: 7 Different Tasks and Activities: How confident are you that you can do the different tasks and activities needed to manage your health condition so as to reduce your need to see a doctor? Select Number: 8 Medication: How confident are you that you can do things other than just taking medication to reduce how much your illness affects your everyday life? Select Number: 7 Total Score:: 6
[2019-05-21 09:23] VITALS: BP 148/64; BP 148/84; BP 192/62; BMI 28.7
== END 2019-06-15 23:59 ==
LOC: CR 08:00
PROVIDERS: Family Provider Family Medicine; PCP Family Medicine; Referring Provider Internal Medicine Cardiovascular Disease; Visit Provider Internal Medicine Cardiovascular Disease
DX: I11.0 Hypertensive heart disease with heart failure (principal); I50.33 Acute on chronic diastolic (congestive) heart failure; I25.110 Atherosclerotic heart disease of native coronary artery with unstable angina pectoris; I71.4 Abdominal aortic aneurysm, without rupture; I70.209 Unspecified atherosclerosis of native arteries of extremities, unspecified extremity; I21.4 Non-ST elevation (NSTEMI) myocardial infarction; I48.0 Paroxysmal atrial fibrillation; Z95.5 Presence of coronary angioplasty implant and graft; F17.200 Nicotine dependence, unspecified, uncomplicated
CPT/HCPCS: 93798

== ENCOUNTER 2019-06-02 23:16 | Emergency (ER) | payer MEDICARE, MEDICAID, SELFPAY ==
[2019-05-21 09:23] VITALS: BMI 28.7
[2019-06-02 23:17] VITALS: BP 156/73; PULSE 76; RESP 18; TEMP 36.6; O2SAT 98; BMI 29.9
--- NOTE | 2019-06-02 23:29 | ED.VIS.GEN ---
History of Present Illness Chief Complaint: Itching Detail of Chief Complaint: Rash Informant: Patient Onset: Days Context: Gradual Onset Current Severity: Moderate Maximum Severity: Moderate Narrative: Patient was seen here 3 days ago secondary to right leg pain. She had reproducible pain of the sciatic notch and was diagnosed with sciatica. Patient states that 2 days ago she started to notice a rash. She has a few spots on her buttocks, posterior thigh, and bottom of her foot. She is never had shingles previously. She is currently on [place] and Flexeril for pain. - Past Medical History (1) Abdominal aortic aneurysm (AAA) Status: Chronic Comment: Redemonstration of infrarenal abdominal aortic aneurysm measuring up to 4.4 cm x 4.4 cm essentially similar to previous exam. 01/21/2019 (2) Atherosclerotic heart disease of [place] coronary artery without angina pectoris Status: Chronic (3) COPD (chronic obstructive pulmonary disease) Status: Chronic (4) Essential (primary) hypertension Status: Chronic (5) HLD (hyperlipidemia) Status: Chronic (6) Non-STEMI (non-ST elevated myocardial infarction) Status: Chronic Comment: 04/21/2015, 03/19/2019 (7) BELLE (obstructive sleep apnea) Status: Chronic Comment: Supposed to be on BiPAP (8) Paroxysmal atrial fibrillation Status: Chronic (9) Peripheral vascular occlusive disease Status: Chronic Comment: Bilateral SFA stents. Occluded Right SFA and angioplasty of in-stent stenosis of her left SFA. (10) History of coronary artery stent placement Status: Resolved Comment: [id number] LCx and OM 03/20/99; PCI-CARMEN of distal RCA and POBA-ostium of posterolateral branch for stent jailing; PCI-CARMEN to RCA and PDA 02/20; PCI-CARMEN to ISR-RCA 04/21/2015; [id number] RPDA w/ 2.5 x 24 mm Promus Stent and Distal RCA w/ 3.0 x 16 mm Promus Stent and POBA Ostial RPLB 03/18/2019 Past Medical History - Allergies and Home Meds Allergies/Adverse Reactions: Allergies lisinopril Allergy (Verified 06/02/19 23:20) tongue swelling Primary Care Physician: Feng aHyes MD [Primary Care Provider] - 1 Week Prior records reviewed: Yes Surgical History: - - LE intervention for PAD per Dr. Cebul, cardiac catheterizations w/ total PCI x 7, Lower back injections, DIOMEDES, T+A, R foot surgery. Lives: Alone Smoking Status: Former smoker - Family History Maternal Family History: Family History (Last Reviewed 04/06/19 @ 08:36 by CHINO Hurley) Father Heart disease Hypertension Seizures Sister CVA (cerebral vascular accident) Hypertension Other Family history of hypertension Family History: Reports: Diabetes, High Cholesterol, Heart Disease, Hypertension, Stroke Paternal Family History: Family History (Last Reviewed 04/06/19 @ 08:36 by CHINO Hurley) Father Heart disease Hypertension Seizures Sister CVA (cerebral vascular accident) Hypertension Other Family history of hypertension Family History: Reports: Diabetes, High Cholesterol, Heart Disease, Hypertension, Stroke Review of Systems General: Denies: Chills, Fever Eyes: Denies: Visual changes - bilaterally ENT: Denies: Bilateral ear pain Cardiovascular: Denies: Chest pain Respiratory: Denies: Dyspnea, Cough Gastrointestinal: Denies: Abdominal pain, Nausea, Vomiting Musculoskeletal: Reports: Extremity Pain Skin: Reports: Rash Neurological: Denies: Headache, Parasthesia Allergy: Denies: Uticaria Physical Exam Vital Signs/Narrative: Vital Signs Temp Pulse Resp BP Pulse Ox 06/02/19 23:17 97.9 F 76 18 156/73 H 98 Inital Vital Signs reviewed: Yes General: Well nourished, Well developed Head: Normocephalic ENT: Moist mucous membranes Neck: Supple Cardiovascular: Regular rate, Regular rhythm Respiratory: No distress, CTA bilaterally Abdomen: Soft, Nontender Skin: Pallor, - - Patient has erythematous clusters over the right medial buttock, right posterior thigh, and over the plantar surface of the foot. These lesions are consistent with shingles. No secondary sign of bacterial infection. Neurological: Oriented x3, Normal Strength, Normal Sensation Psychological: Normal affect Diagnostic/Tx/Re-eval - Medical Decision Making [place] for pain. We will add steroids as well as acyclovir. Patient is on ranitidine for stomach acid. ED Disposition - Plan for ED Patient: Disposition: Home or Assisted Living Diagnosis: Shingles Instructions: Shingles (Herpes Zoster) Prescriptions: Prednisone [Deltasone] 40 mg PO DAILY #10 tab Prescription Printed Hydrocodone Bitart/Apap 5-325 [[place] 5MG-325MG] 1 tab PO Q6H PRN PRN 3 Days #10 tab PRN Reason: Pain Prescription Printed Acyclovir [Zovirax] 800 mg PO 5X/DAY #35 tab Prescription Printed Referrals: Feng Hayes MD [Primary Care Provider] - 1 Week
[2019-06-02] MEDS: Acyclovir 800 MG Tablet PO (23:42)
[2019-06-02] MEDS: predniSONE 20 MG Tablet 40 MG PO (23:42)
== END 2019-06-02 23:50 | disposition home or self-care (01) ==
LOC: ED 23:43
PROVIDERS: Emergency Provider Emergency Medicine; PCP Family Medicine
DX: B02.9 Zoster without complications (principal); I71.4 Abdominal aortic aneurysm, without rupture; I25.10 Atherosclerotic heart disease of native coronary artery without angina pectoris; J44.9 Chronic obstructive pulmonary disease, unspecified; I10 Essential (primary) hypertension; E78.5 Hyperlipidemia, unspecified; I25.2 Old myocardial infarction; G47.33 Obstructive sleep apnea (adult) (pediatric); I48.0 Paroxysmal atrial fibrillation; I73.9 Peripheral vascular disease, unspecified; Z95.5 Presence of coronary angioplasty implant and graft; Z79.82 Long term (current) use of aspirin; Z79.899 Other long term (current) drug therapy; Z87.891 Personal history of nicotine dependence
CPT/HCPCS: 99283

== ENCOUNTER → 2019-07-20 09:26 | Outpatient (CLI) | payer MEDICARE, MEDICAID, SELFPAY ==
[2019-05-21 09:23] VITALS: BMI 28.7
[2019-07-09 10:04] VITALS: BMI 29.9
== END ==
PROVIDERS: PCP Family Medicine; Referring Provider Physician Assistant Medical; Visit Provider Physician Assistant Medical
DX: I48.0 Paroxysmal atrial fibrillation (principal); I25.10 Atherosclerotic heart disease of native coronary artery without angina pectoris; Z95.5 Presence of coronary angioplasty implant and graft; I11.0 Hypertensive heart disease with heart failure; I50.33 Acute on chronic diastolic (congestive) heart failure; I71.4 Abdominal aortic aneurysm, without rupture; I21.4 Non-ST elevation (NSTEMI) myocardial infarction; I45.5 Other specified heart block; R00.2 Palpitations
CPT/HCPCS: 93225; 93226

== ENCOUNTER → 2019-07-22 09:34 | Outpatient (CLI) | payer MEDICARE, MEDICAID, SELFPAY ==
[2019-05-21 09:23] VITALS: BMI 28.7
[2019-07-09 10:04] VITALS: BMI 29.9
[2019-07-16 09:26] VITALS: BMI 29.5
--- NOTE | 2019-07-22 09:38 | ART_ITS ---
Reason For Study: PAD Procedure A bilateral lower extremity continuous wave Doppler with analog waveform analysis,segmental pressures,and ankle brachial indexes without exercise. Left Segmental Pressures Left brachial= 137mmHg. Left calf = 148mmHg. Left posterior tibial artery = 135mmHg. Left dorsalis pedis artery = 131mmHg. The left posterior tibial artery waveforms are triphasic. The left dorsalis pedis waveforms are biphasic. Right Segmental Pressures Right brachial= 140mmHg. Right calf = 92mmHg. Right posterior tibial artery = 90mmHg. Right dorsalis pedis artery = 85mmHg. The right dorsalis pedis waveforms are monophasic. The right posterior tibial artery waveforms are monophasic. Indices The right ankle brachial index by the dorsalis pedis is .61. The right ankle brachial index by the posterior tibial artery is .64. The left ankle brachial index by the dorsalis pedis is .94. The left ankle brachial index by the posterior tibial artery is .96. Interpretation Summary Monophasic Doppler waveforms are noted at ankle level on the right. Triphasic and biphasic Doppler waveforms are noted at ankle level on the left. Pulse-volume recording waveform amplitudes appear mildly diminished at calf and ankle level on the right. The resting right ankle-brachial index is moderately diminished. The resting left ankle-brachial index is normal. There is evidence of moderate arterial occlusive disease at ankle level on the right. Arterial flow appears to be normal in the left lower extremity. Ordering Physician: Feng Hayes Performed By: MO BRANDON Evan
== END ==
PROVIDERS: PCP Family Medicine; Referring Provider Family Medicine; Visit Provider Family Medicine
DX: I73.9 Peripheral vascular disease, unspecified (principal)
CPT/HCPCS: 93923

== ENCOUNTER 2019-08-13 08:00 | Outpatient (RCR) | payer MEDICARE, MEDICAID, SELFPAY ==
[2019-05-21 09:23] VITALS: BMI 28.7
[2019-06-16 00:40] VITALS: BP 148/64; BP 148/84; BP 192/62
--- NOTE | 2019-06-18 06:29 | PCM.CR.ITP ---
Exercise - Initial Assessment - Visit Date of Eval: 06/18/19 - Patient CR suspended due to COVID-19 and Cardiac Rehab closing for June 2019.
[2019-07-09 10:04] VITALS: BMI 29.9
--- NOTE | 2019-07-16 09:16 | PCM.CR.ITP ---
Diagnosis - General Information Admitting Diagnosis: PCI with stent Personal Learning Style:: Audio/Visual, Demonstration, Group, Individual Preference, Written Stage of change r/t lifestyle modifications:: Action Gave educational material for:: Treating Heart Disease, Emotions & Heart Disease, Stress Management & Relaxation, Sleep Disorders & Heart Disease, How The Heart Works, What it means to have Heart Disease, How Coronary Artery Disease is Diagnosed, Heart Procedures, What Heart Medications Do, Risk Factors & Modifications, Living an Active Life, Nutrition - Education/Goals Cardiac Rehabilitation Goals: 1. Maintain the individual as the primary focus of care. 2. To improve the patient's quality of life. 3. Identification of cardiac risk factors and provide cardiac risk factor management. 4. Enhance the psychosocial status of the patient. 5. Reconditioning enough to allow the patient to resume customary activities. 6. Control symptoms of cardiac disease Scale for measuring improvement of personal goals: Enter appropriate number in Comments. 2 = Unchanged. 3 = Slightly Better. 4 = Moderate Improvement. 5 = Met my Goal - Diagnosis & Disease Process Outcomes/Goals: Pt IDs own risk factors & lifestyle modifications by Session 10, Verbalizes symptoms of angina & response by session 3., Pt independently manages, Other Additional Outcomes/Goals: Plan/Interventions: Assist Pt to ID & engage in lifestyle modification to reduce CVD risk, Instruct on individual risk factors, Review symptoms of angina & emergency actions, Review secondary diagnosis & identify educational needs., Other see comment 30 day Reassessments:: Progressing 30 day Reassessments:: Progressing 30 day Reassessments:: Progressing 30 day Reassessments:: Progressing - Safety Referral to Physical Therapy: No Referral to [facility] Case Management: No Fall Risk Assessed:: Yes Assistive Devices:: None Exercise - 90-day Assessment - Visit Date of Eval: 07/16/19 Session #:: 28 Comments:: Pt was on hold for COVID 19 precaution. Pt is now resuming rehab. - Physician Prescribed Exercise Modalities: Treadmill, Airdyne, NuStep Frequency: 3x/week for 12 weeks [36 sessions] Intensity: 60-80% of age predicted maximum heart rate reserve Current METSs:: 4 Target Heart Rate:: 97-127 Current RPE:: 12 Maximum Excercise HR:: 92 Resting Blood Pressure: 146/60 Maximum Exercise Blood Pressure: 180/60 EKG Type: Atrial flutter/NSR - Outcomes & Goals Goals:: Verbalizes understanding of THR, RPE & goal METS by session 6, Documents in home exercise log/reports 30 min aerobic 5 day/wk by DC, Demonstrates accurate pulse taking by DC, Other additional outcome/goals: see below - Intervention & Plan Exercise Program Goals: Instruct on personal THR & RPE, Instruct on MET level & personal MET goal, Show patient to take own pulse /validate performance until accurate, Instruct on home exercise, Other additional plan/int - 30-day Reassessments 30 day Reassessments:: Progressing - Physical Activity Home Exercise Physical Activity - Home Exercise: Safe Exercise, Warm-up, Self-monitoring, Cool-Down, Home Exercise > 30 min Daily, Sitting Time <3 hours/daily - Outcomes & Goals Outcomes/Goals: Demonstrates correct Warm-up/exercise Cool-Down (S3) if = 2.5 METs, Verbalizes symptoms of exercise intolerance by Session 3 (S3), Demonstrate safe equipment use (S3) & follows exercise prescrition (6), Other: See below - Intervention & Plan Plan/Intervention: Instruct warm-up & cool-down if exercising at > 2 METs, Instruct on symptoms of exercise intolerance & actions to take, Instruct & monitor on saf, Assess intial functional capacity & safety risk, Other See below - 30-day Reassessments 30 day Reassessments:: Progressing Nutrition - 90-Day Assessment - Program Goals Nutrition Program Goals: LDL <100 optimal. 100 - 129 Near optimal. 130 - 159 Borderline High. 160 - 189 High. Total Cholesterol <200 desirable. 200 - 239 Borderline High. >/= 240 High. HDL < 40 Low >/=60 High. Triglycerides <150 desirable. <199 optimal. VlDL 5 - 40. HgbA1C <7%. BMI <25 Patient has diagnosis of Hyperlipidemia (ICD E78)?: Yes - Visit Date of Assessment:: 07/16/19 Session #:: 28 - Cholesterol/Lipids Determine presence & major risk factors that modify LDL goal: Cigarette smoking, Hypertension or hypertensive medication, Low HDL cholesterol <40 mg/dL*, Family history of premature CHD in Male < 55 years: female <65 yearsFa, Age men > 45 years; women >/= 55 years Outcomes/Goals: Pt IDs own risk factors & lifestyle modifications by Session 10, Verbalizes symptoms of angina & response by session 3., Pt independently manages, Other Additional Outcomes/Goals: Intervention/Plan: Advocate for lipid panel cholesterol medication if applicable, Instruct on personal lipid levels & lipid goals/NCEP guidelines, Instruct on cholesterol, Other additional plan/int Referral to dietitian:: Yes 30-day Reassessments:: Progressing - Diabetes (Other Core Measures) 30-day Reassessments:: Progressing - Weight Mgt (Other Care) Height: 5 ft 2 in Weight:: 73.255 kg BMI: 29.5 Outcomes/Goals: Pt sets, maintains & shows weight loss goal & trend during rehab, Other additional outcomes/goals Intervention/Plan: Instruct on ideal BMI & set weight loss goal w/patient, Assist pt to ID & incorporate diet changes for weight loss by S9, Refer to Structured Weight Loss program as appropriate, Encourage goal of using 250-300dcal per session for weight loss, Other additional plan/interventions 30 day Reassessments:: Progressing - Healthy Eating Habits Will attend diet classes:: Yes Outcomes/Goals:: Consume diet rich in vegs,fruits,whole grain/high fiber,fish,lean meat, Limit sat/trans fats,cholesterol & added salts & sugars, Other additional outcome/goals: 30-day Reassessments:: Progressing - Education Gave educational materials for:: Signs & symptoms of hypoglycemia, Signs & symptoms of hyperglycemia, Relate diabetes to coronary artery disease, Healthy eating Medical- 90-Day Assessment - Visit Date of Eval: 07/16/19 Session #:: 28 - Medication Compliance H/O mental health issues: depression, anxiety, or addiction?: No Believes medications are unnecessary or harmful?: No Has a concern about medication side effects?: No Expresses concern over the cost of medications?: No Outcomes/Goals: Verbalizes medications,desired effect & common side effects @ DC, Pt self-reports following medication regimen, Keeps card in wallet w/medications listed by DC, Other additional outcome/goals: Interventions/plans: Instruct on medication effects & side effects, Review medication list w/patient every two weeks, Instruct importance of taking meds as ordered & assist problem solving, Other additional 30-day Reassessments:: Progressing - Tobacco Use Tobacco Use: Cigarettes Do you use smokeless tobacco?: No Interventions/plan: Instruct on effects of smoking & provide smoking cessation resource, Assist pt to set quit date & provide encouragement, Assist pt to develop strategies to achieve/maintain quit date, Assist pt w/nicotine replacement & medication for cessation success, Other additional plan/interventions 30-day Reassessments:: Progressing - Hypertension [place] [employer] Hypertension Guidelines: [place] [employer] Hypertension Guidelines. Normal BP Less than 120/80. Elevated BP 120/80. Hypertension Stage 1: BP 130-139/80-89. Hypertesnion Stage 2: BP 140 or higher/90 or higher. Hypertension Crisis: BP higher than 180/120 Outcomes/Goals: Able to verbalize/achieve optimal blood pressure <130/80, Incorporates diet changes & exercise for blood pressure control by DC, Other additional outcomes/goals 30 day Reassessments:: Progressing - Tobacco Cessation Referral Smoking Cessation Referral:: Yes Individual Education/Counseling:: Yes Education Schedule Given:: Yes Psychosocial - 90-Day Assess - VIsit Date of Eval: 07/16/19 Session #:: 28 History of Emotional Disorders: Anxious - Target Goals Target Goals: Assess presence or absence of depression. Using a valid screening tool, maximizes coping skills. Positive support system - Psychosocial Test Tool Used:: [employer] QOL Cardiac, PHQ-9 Questionnaire phq-9 Severity: Severity. 1-4 Minimal Depression. 5-9 Mild Depression. 10-14 Moderate Depression. 15-19 Moderately Sever Depression. 20-27 Severe Depression. Rule: - Outcomes/Goals: See list Psychosocial Outcomes/Goals:: ID's personal stressors & 2 strategies to manage stress by discharge, Other Additional outcome/goals: - Intervention/Plan: See List Interventions/Plan:: Assess stressors,coping strategies & signs of derpression on admission, Instruct/assist pt to develop coping & personal stress Mgt strategies, Refer to Behavioral Health if appropriate, Refer to Physician if appropriate, Instruct patient to recognize signs & symptoms of depression, Instruct patient to recog, Other additional plan/intervention - 30-day Reassessments: 30 day Reassessments:: Progressing Patient Health Questionnaire 90-Day Re-eval Assessment 1. Little interest or pleasure in doing things: Several days 2. Feeling down, depressed, or hopeless: Not at all 3. Trouble falling or staying asleep, or sleeping too much: Not at all 4. Feeling tired or having little energy: Several days 5. Poor appetite or overeating: Several days 6. Feeling bad about yourself -- or that you are a failure or have let yourself or your family down: Not at all 7. Trouble concentrating on things, such as reading the newspaper or watching television: Not at all 8. Moving or speaking so slowly that other people could have noticed. Or the opposite - being so fidgety or restless that you have been moving around a lot more than usual: Not at all 9. Thoughts that you would be better off , or of hurting yourself in some way: Not at all How difficult have these problems made it for you to do your work, take care of things at home, or get along with other people?: Not difficult at all Total Score: 3 Self-Efficacy 90-Day Re-eval Assessment We would like to know how confident you are in doing certain activities. Please select your confidence level for:: Select your confidence level for the following using the scale 1-10 where 1 is not at all confident and 10 is totally confident. Your score is the average of all 6 responses. Fatigue: How confident are you that you can keep the fatigue caused by your disease from interfering with the things you want to do? Select Number: 6 Physical Discomfort or Pain: How confident are you that you can keep the physical discomfort or pain of your disease from interfering with the things you want to do? Select Number: 6 Emotional Distress: How confident are you that you can keep the emotional distress caused by your disease from interfering with the things you want to do? Select Number: 6 Other Symptoms or Health Problems: How confident are you that you can keep other symptoms or health problems from interfering with the things you want to do? Select Number: 7 Different Tasks and Activities: How confident are you that you can do the different tasks and activities needed to manage your health condition so as to reduce your need to see a doctor? Select Number: 8 Medication: How confident are you that you can do things other than just taking medication to reduce how much your illness affects your everyday life? Select Number: 7 Total Score:: 6
[2019-07-16 09:26] VITALS: BP 146/60; BMI 29.5
== END 2019-08-15 23:59 ==
LOC: CR 08:00
PROVIDERS: Family Provider Family Medicine; PCP Family Medicine; Referring Provider Internal Medicine Cardiovascular Disease; Visit Provider Internal Medicine Cardiovascular Disease
DX: I11.0 Hypertensive heart disease with heart failure (principal); I50.33 Acute on chronic diastolic (congestive) heart failure; I25.110 Atherosclerotic heart disease of native coronary artery with unstable angina pectoris; I71.4 Abdominal aortic aneurysm, without rupture; F17.200 Nicotine dependence, unspecified, uncomplicated; I70.209 Unspecified atherosclerosis of native arteries of extremities, unspecified extremity; I25.10 Atherosclerotic heart disease of native coronary artery without angina pectoris; I21.4 Non-ST elevation (NSTEMI) myocardial infarction; I48.0 Paroxysmal atrial fibrillation; Z95.5 Presence of coronary angioplasty implant and graft
CPT/HCPCS: 93798

== ENCOUNTER 2019-08-16 06:16 | Outpatient (RCR) | payer MEDICARE, MEDICAID, SELFPAY ==
[2019-07-09 10:04] VITALS: BMI 29.9
[2019-07-16 09:26] VITALS: BMI 29.5
[2019-08-16 00:16] VITALS: BP 146/60; BP 148/84; BP 192/62
== END 2019-09-14 23:59 ==
LOC: CR 06:16
PROVIDERS: Family Provider Family Medicine; PCP Family Medicine; Referring Provider Internal Medicine Cardiovascular Disease; Visit Provider Internal Medicine Cardiovascular Disease
DX: I11.0 Hypertensive heart disease with heart failure (principal); I50.33 Acute on chronic diastolic (congestive) heart failure; I25.110 Atherosclerotic heart disease of native coronary artery with unstable angina pectoris; I71.4 Abdominal aortic aneurysm, without rupture; F17.200 Nicotine dependence, unspecified, uncomplicated; I21.4 Non-ST elevation (NSTEMI) myocardial infarction; I48.0 Paroxysmal atrial fibrillation; Z95.5 Presence of coronary angioplasty implant and graft; I70.219 Atherosclerosis of native arteries of extremities with intermittent claudication, unspecified extremity
CPT/HCPCS: 93798

== ENCOUNTER 2019-08-17 10:55 | Day surgery (SDC) | payer MEDICARE, MEDICAID, SELFPAY ==
[2019-07-09 10:04] VITALS: BMI 29.9
[2019-07-16 09:26] VITALS: BMI 29.5
--- NOTE | 2019-08-16 14:01 | RAD_ITS ---
STUDY: X-RAY CHEST REASON FOR EXAM: Female, 69 years old. SOB/DYSPNEA PATIENT STATES HAS A HX OF AFIB AND SEVERAL STENTS HAVE BEEN INSERTED. PATIENT HAVING A HEART CATH TOMORROW. TECHNIQUE: PA and lateral views of the chest. COMPARISON: Comparison is made with prior study dated March 19, 2019. FINDINGS: Mild increased markings at the lung bases suggest mild basilar scarring. There is no demonstrated pleural abnormality. Normal size heart. Normal mediastinum and artis. Normal visualized pulmonary arteries. There is atherosclerotic calcification of the aortic arch with tortuosity. There are degenerative changes of the visualized thoracic spine. Normal visualized ribs, clavicles, and shoulders. There is no demonstrated abnormality of the visualized soft tissue structures of the upper abdomen. RAD/Chest PA and Lateral IMPRESSION: Mild increased markings at the lung bases suggest some mild basilar scarring. Electronically Signed: Brown Yanes, at 14:35 EDT , Service support ,
[2019-08-16 15:58] LABS: Anion Gap 8 (5-15); BUN 23 mg/dL (7-18); BUN/Creat Ratio 22.5 RATIO (10-20); Calcium,Total 8.7 mg/dL (8.5-10.1); Chloride 107 mmol/L (98-107); Creatinine, Serum 1.02 mg/dL (0.55-1.02); EST Glomerular Filtration Rate 57 mL/min (>60); Est Glom Filt Rate - Afr Amer 69 mL/min (>60); Glucose 84 mg/dL (74-106); Potassium 3.5 mmol/L (3.5-5.1); Sodium Level 144 mmol/L (136-145)
--- NOTE | 2019-08-16 16:51 | PCM.HP.BLA ---
History and Physical Date of Admission: 08/17/19 Addendum: Per Dr. Treviño: Patient was seen having presented for cardioversion. Was noted to be in an atrial flutter with a 2-1 block. This was asymptomatic. In view of the fact that she has had paroxysmal atrial fibrillation I did not think that cardioverting her would be giving her any symptomatic improvement. It was therefore decided to continue her on her current medications and follow her in the office. She can continue cardiac rehabilitation at home. Patient did not proceed with cardioversion. CURLY MORALES, is a 69 F who presents to the laboratory engineer today for an outpatient cardioversion. She has a history of paroxysmal atrial fibrillation, coronary artery disease with angioplasty and stenting of her RCA and angioplasty of her first obtuse marginal and hyperlipidemia. She was admitted to the hospital in March 2019 with chest pain and shortness of breath she underwent angioplasty and stenting of the posterior descending artery as well as the right posterior lateral vessel following cardiac catheterization. She was admitted to the intensive care unit postop and developed some shortness of breath. An echocardiogram demonstrated ejection fraction of 50%. She also had a 9-second pause after her beta-declan dose had been increased it was reduced and this resulted in a 5-second pause this was discontinued and she was observed in the hospital for a few days with no other significant abnormalities. The plan was for her to continue the amiodarone, the beta-declan was discontinued. A previous Holter in December 2018 demonstrated 9% atrial fibrillation with an average heart rate of 84 bpm. She continues with shortness of breath with activity and intermittent lightheadedness with exertion when rolling over in bed. She recently underwent a Holter monitor that was negative for pauses on 07/20/2019. This showed atrial fibrillation approximately 2.3% of scan. She contact the office on 08/11/2019 with lightheaded and dizziness while on treadmill. Conservative medical management was recommended and it was felt at that time that her symptoms correlated with paroxysmal atrial fibrillation. She has had intermittent episodes of atrial fibrillation throughout cardiac rehab. She presents today for outpatient cardioversion. She denies any chest, arm, jaw, or neck discomfort suggestive of angina. She denies any edema, claudication, syncope, presyncope, blood in urine, blood in stool, or fatigue. Intake Vital Signs: See EMR Intake Visit Reasons: DCCV Allergies No Known Allergies Allergy (Verified 03/30/19 10:19) Medications See EMR [facility] Medical History Atherosclerotic heart disease of [place] coronary artery without angina pectoris (Chronic) Paroxysmal atrial fibrillation (Chronic) Acute on chronic diastolic (congestive) heart failure (Chronic) Abdominal aortic aneurysm (AAA) (Chronic) Essential (primary) hypertension (Chronic) HLD (hyperlipidemia) (Chronic) Non-STEMI (non-ST elevated myocardial infarction) (Chronic 03/19/19) Peripheral vascular occlusive disease (Chronic) COPD (chronic obstructive pulmonary disease) (Chronic) BELLE (obstructive sleep apnea) (Chronic) Nicotine dependence (Chronic) Anxiety and depression (Chronic) Claudication in peripheral vascular disease (Chronic) Emphysema of lung (Chronic) IBS (irritable bowel syndrome) (Chronic) Obesity (Chronic) Angina pectoris (Resolved) Atrial fibrillation with RVR (Resolved) History of hysterectomy (Resolved) Hypokalemia (Resolved) Unstable angina pectoris due to coronary arteriosclerosis (Resolved) Dyspnea on exertion (Inactive) PAD (peripheral artery disease) (Inactive) Wheezing (Inactive) Surgical History History of coronary artery stent placement (Resolved 03/18/19) History of angioplasty of peripheral vessel (Resolved) History of bilateral leg stents (Resolved) History of bunionectomy of right great toe (Resolved) History of colonoscopy (Resolved ~06/2018) History of left heart catheterization (Resolved) History of tonsillectomy (Resolved) Hx of APLL (Resolved) Hx of hysterectomy (Resolved) Status post left foot surgery (Resolved) Family History Father Heart disease Hypertension Seizures Sister CVA (cerebral vascular accident) Hypertension Other Family history of hypertension Social History (Updated 03/30/19 @ 11:47 by Jaime Treviño MD) Smoking Status: Former smoker second hand exposure: No alcohol intake: never substance use type: does not use caffeine: Yes what type of physical activity do you participate in: none ROS Const Const: Negative for fatigue, weakness, headache(s), frequent falls, difficulty sleeping or excessive sweating Eyes Eyes: Negative for loss of peripheral vision, transient loss of vision, blurry vision, double vision or tunnel vision ENT ENT: Negative for headache(s), dizziness, Nosebleed/epistaxis or balance problems Cardio Chest Pain: No Palpitations: No Edema: None Muscle aches with walking: None Resp Respiratory: Positive for SOB with activity; negative for SOB at rest, SOB orthopnea\SOB lying down, Cough or paroxysmal nocturnal dyspnea GI GI: Negative nausea, vomiting, heartburn or black,tarry stools : Negative for hematuria Musc Musc: Negative for muscle aches/ myalgia, muscle weakness, joint pain or balance problems Skin Skin: Negative non-healing lesions, rash or unusual bruising Neuro Neuro: Positive for lightheadedness (with exertion and when rolling over in bed); negative for dizziness, near syncope, syncope, orthostatic symptoms, frequent falls, headache(s), weakness, blurry vision, double vision or lack of coordination Igor Hematologic/Lymphatic: Negative for easy bleeding or easy bruising Endo Endo: Negative for fatigue, excessive sweating or increased thirst/drinking Psych Psych: Negative for anxiety or depression Allergy Allergy/Immunology: Negative for hives, Negative for rash Cardiology Exam Const Appearance: cooperative, healthy appearing, no acute distress, well developed and well groomed Nutritional Appearance: average body habitus and well nourished Orientation: alert, awake and oriented x3 Head Head: normal to inspection, normocephalic and atraumatic Ears: hearing grossly normal bilaterally and external ears normal Nose: external nose normal, nares normal, nasal mucous membranes and turbinates normal, septum normal, no nasal discharge Face and Sinus: face symmetric Mouth: oral mucosae normal, tongue normal, oropharynx normal and moist mucous membranes Teeth and gingiva: dentition normal Throat: posterior oropharynx normal, tonsils normal and uvula midline Eyes General: appearance normal, both eyes and all related structures Eyelids: eyelids normal Conjunctivae: conjunctivae normal Pupils: PERRL, normal by confrontation and accommodation normal EOM: EOM intact bilaterally Neck Neck: normal visual inspection, trachea midline and no JVD JVD: +5 Carotids: normal carotid upstroke and bounding pulses Chest Chest inspection: normal inspection of the chest, symmetric chest movement and normal respiratory effort Auscultation: Bilateral: Clear to Auscultation Cardio Palpation: normal PMI Rate: regular rate Rhythm: irregular rhythm Heart sounds: S1 normal, S2 normal and normal, physiologic split S2; negative rub, gallop or murmur GI GI: normal to inspection, soft, no hepatosplenomegaly and bowel sounds present Neuro General: alert, awake, oriented x3, gait normal, moves all extremities and no focal sensory deficit Skin Skin: no rashes or lesions noted Extremities Pulses: Normal: Right Femoral Pulse, Left Femoral Pulse, Right Dorsalis Pedis Pulse, Left Dorsalis Pedis Pulse, Right Posterior Tibial Pulse, Left Posterior Tibial Pulse, Right Radial Pulse, Left Radial Pulse Lower Extremity Edema: None: Bilateral Musculoskel Musculoskeletal: No joint tenderness Psych Psychological: normal affect Assessment & Plan 1. History of coronary artery stent placement Z95.5 [id number] LCx and OM 03/20/99; PCI-CARMEN of distal RCA and POBA-ostium of posterolateral branch for stent jailing; PCI-CARMEN to RCA and PDA 02/20; PCI-CARMEN to ISR-RCA 04/21/2015; [id number] RPDA w/ 2.5 x 24 mm Promus Stent and Distal RCA w/ 3.0 x 16 mm Promus Stent and POBA Ostial RPLB 03/18/2019 Plan She does have a history of previous coronary artery disease status post recent angioplasty and stenting of the posterior descending artery and posterolateral vessel. We will continue to observe her and continue with cardiac rehab 2. Paroxysmal atrial fibrillation I48.0 Plan Her Holter monitor on 07/20/2019 showed an average heart rate of 60 bpm in sinus rhythm, minimum heart of 52 beats minute sinus bradycardia, and maximum heart rate of 100 beats minute in atrial fibrillation. Longest R-R interval was 1.4 seconds. Atrial fibrillation occurred at 2.3% of total scan. She will proceed with outpatient cardioversion as long as her presenting rhythm is atrial fibrillation. She will continue with amiodarone and carvedilol therapy. She also continue with Xarelto therapy. 3. Essential (primary) hypertension I10 Plan Her blood pressure appears to be under good control on the current medical therapy and no other major changes will be made. 4. Pure hypercholesterolemia E78.00 Plan She does have a history of hyperlipidemia and will continue with aggressive risk factor modification. This note was generated using a voice recognition system and there may be incorrect words, spelling or punctuation that were not noted when reviewing the office note prior to saving.
== END 2019-08-17 12:05 | disposition home or self-care (01) ==
LOC: CLSP 10:56
PROVIDERS: PCP Family Medicine; Referring Provider Internal Medicine Cardiovascular Disease; Visit Provider Internal Medicine Cardiovascular Disease
DX: R06.00 Dyspnea, unspecified (principal); E78.5 Hyperlipidemia, unspecified; F17.200 Nicotine dependence, unspecified, uncomplicated; G47.33 Obstructive sleep apnea (adult) (pediatric); I21.4 Non-ST elevation (NSTEMI) myocardial infarction; I25.10 Atherosclerotic heart disease of native coronary artery without angina pectoris; I48.0 Paroxysmal atrial fibrillation; I48.19 Other persistent atrial fibrillation; I11.0 Hypertensive heart disease with heart failure; I50.33 Acute on chronic diastolic (congestive) heart failure; I71.4 Abdominal aortic aneurysm, without rupture; I73.9 Peripheral vascular disease, unspecified; J44.9 Chronic obstructive pulmonary disease, unspecified; Z95.5 Presence of coronary angioplasty implant and graft
CPT/HCPCS: 71046; 80048; 93005

== ENCOUNTER → 2019-08-20 08:32 | Outpatient (CLI) | payer MEDICARE, MEDICAID, SELFPAY ==
[2019-07-09 10:04] VITALS: BMI 29.9
[2019-07-16 09:26] VITALS: BMI 29.5
--- NOTE | 2019-08-20 08:33 | AAAS_ITS ---
Reason For Study: AAA Aorta Measurements Aorta Doppler Measurements Proximal aorta measures2.15 x 2.11cm. in cross- Peak systolic flow velocities within the proximal sectional axis. aorta measure 85.1 cm/sec. Proximal aorta measures2.06cm. in longitudinal Peak systolic flow velocities within the mid aorta axis. measure 46.8 cm/sec. Mid aorta measures4.10 x 4.10cm. in cross- Peak systolic flow velocities within the distal sectional axis. aorta measure 30.2 cm/sec. Mid aorta measures4.05cm. in longitudinal axis. Distal aorta measures3.65cm. in cross-sectional axis. Left Iliac Artery Left iliac artery measures 0.70 x 0.72 cm. in the cross-sectional axis. Left iliac artery measures 0.71 cm. in the longitudinal axis. Peak systolic velocity in the left iliac artery measures 138.9 cm/sec. Right Iliac Artery Right iliac artery measures 0.68 x 0.66 cm. in the cross-sectional axis. Right iliac artery measures 0.65 cm. in the longitudinal axis. Peak systolic velocity in the right iliac artery measures 164.9 cm/sec. Procedure Aorta IVC Iliac vasculature or bypass grafts 73721. Exam performed in department. Interpretation Summary Mid abdominal aorta 4.1 x 4.1 cm aneurysm Right iliac 0.68 x 0.66 cm Left iliac 0.7 x 0.72 cm Minimally increased velocity flow bilateral iliacs Ordering Physician: Sathish Gar Referring Physician: Morgan Hayes Performed By: Jacqueline Coffman RVT
== END ==
PROVIDERS: PCP Family Medicine; Referring Provider Surgery; Visit Provider Surgery
DX: I71.4 Abdominal aortic aneurysm, without rupture (principal)
CPT/HCPCS: 76706

== ENCOUNTER 2019-08-30 08:06 | Observation (INO) | payer MEDICARE, MEDICAID, SELFPAY ==
[2019-07-09 10:04] VITALS: BMI 29.9
[2019-07-16 09:26] VITALS: BMI 29.5
[2019-08-30] VITALS (9 sets, daily range): BP systolic 116–144; BP diastolic 54–69; PULSE 55–62; RESP 16–18; TEMP 36.7–36.9; O2SAT 92–99; BMI 29.9; BMI 28.7
--- NOTE | 2019-08-30 08:08 | RAD_ITS ---
STUDY: X-RAY CHEST REASON FOR EXAM: Female, 69 years old. Chest pain. TECHNIQUE: Single AP portable view of the chest. COMPARISON: Comparison is made with prior study dated August 16, 2019. FINDINGS: EKG electrodes are seen. No focal infiltrate is seen. Minimal increased markings at the lung bases suggest some mild scarring. There is no demonstrated pleural abnormality. There is borderline cardiomegaly. Normal mediastinum and artis. Normal visualized pulmonary arteries. There is atherosclerotic calcification of the aortic arch with tortuosity. There are degenerative changes of the visualized thoracic spine. Normal visualized ribs, clavicles, and shoulders. There is no demonstrated abnormality of the visualized soft tissue structures of the upper abdomen. RAD/Chest 1 View (Portable) IMPRESSION: No acute abnormality is seen. Electronically Signed: Brown Yanes, at 8:48 EDT , Service support ,
--- NOTE | 2019-08-30 08:08 | EKG12_ITS ---
Test Reason : CP Blood Pressure : / mmHG Vent. Rate : 059 BPM Atrial Rate : 059 BPM P-R Int : 152 ms QRS Dur : 112 ms QT Int : 508 ms P-R-T Axes : -09 -17 070 degrees QTc Int : 502 ms Sinus bradycardia Incomplete left bundle branch block Nonspecific ST abnormality Abnormal ECG Confirmed by GILBERT JEAN-BAPTISTE, FRANCIS ([id number]), senior editor HARMONY CORRIGAN ([id number]) on 08/31/2019 11:15:35 AM Referred By: ADRIAN Confirmed By:FRANCIS HUNT MD
--- NOTE | 2019-08-30 08:13 | ED.VIS.GEN ---
History of Present Illness Chief Complaint: Chest Pain Informant: Patient Onset: Today Context: Sudden Onset Timing: Continuous Current Severity: Moderate Maximum Severity: Moderate Narrative: The patient is a 69-year-old female significant cardiovascular history including ME with 3 stents, atrial fibrillation who is anticoagulated, hypertension, and hyperlipidemia that presents to the emergency department with chest pain, neck pain, and back pain. The patient states awoke from sleep. She describes a squeezing pain in her left chest that goes into her neck and left arm. She states this pain feels very similar when she is had a prior ME in the past. Her last heart catheterization was in March of this year where she did receive another stent. She states that she just finished cardiac rehab. She has been compliant with her medications. Prior similar symptoms: Yes Recent Illness/Hospitalization: No Past Medical History - Allergies and Home Meds Allergies/Adverse Reactions: Allergies lisinopril Allergy (Verified 08/30/19 08:10) tongue swelling Primary Care Physician: Feng Hayes MD [Primary Care Provider] - Prior records reviewed: Yes Past Medical History: - - Coronary vascular disease, atrial fibrillation, prior ME, hypertension Surgical History: noncontributory, - - LE intervention for PAD per Dr. Gar, cardiac catheterizations w/ total PCI x 7, Lower back injections, DIOMEDES, T+A, R foot surgery. - Family History Maternal Family History: Family History (Last Reviewed 07/08/19 @ 10:45 by Skylar White) Father Heart disease Hypertension Seizures Sister CVA (cerebral vascular accident) Hypertension Other Family history of hypertension Family History: Reports: Diabetes, High Cholesterol, Heart Disease, Hypertension, Stroke Paternal Family History: Family History (Last Reviewed 07/08/19 @ 10:45 by Skylar White) Father Heart disease Hypertension Seizures Sister CVA (cerebral vascular accident) Hypertension Other Family history of hypertension Family History: Reports: Diabetes, High Cholesterol, Heart Disease, Hypertension, Stroke Review of Systems General: Denies: Chills, Fever, Sweats Eyes: Denies: Visual changes - bilaterally, Diplopia ENT: Denies: Rhinorrhea, Sore throat Cardiovascular: Reports: Chest pain. Denies: Palpitations Respiratory: Reports: Dyspnea. Denies: Cough, Dyspnea on exertion Gastrointestinal: Denies: Abdominal pain, Nausea, Vomiting, Diarrhea, Melena, Hematochezia Genitourinary: Denies: Dysuria, Hematuria, Frequency Musculoskeletal: Denies: Back pain, Extremity Pain Skin: Denies: Rash, Wounds Neurological: Denies: Headache, Weakness, Numbness Physical Exam Vital Signs/Narrative: Vital Signs Temp Pulse Resp BP Pulse Ox 08/30/19 08:07 98.5 F 62 16 144/68 H 98 Inital Vital Signs reviewed: Yes General: Well nourished, Well developed, No Acute Distress Head: Normocephalic, Atraumatic Eyes: Perrl, EOMI ENT: Moist mucous membranes, No rhinorrhea Neck: Supple, Nontender Cardiovascular: Regular rate, Regular rhythm, No murmurs Respiratory: No distress, CTA bilaterally, Chest nontender Abdomen: Soft, Nontender, Nondistended, Normal bowel sounds Back: Nontender, Normal Inspection Extremities: Nontender, No edema Skin: Normal color, No rash Neurological: Alert, Oriented x3, Cranial nerves II-XII grossly intact, Normal Strength, Normal Sensation Psychological: Normal affect, Normal Mood Diagnostic/Tx/Re-eval Chest X-Ray - ED: 1 View, Normal, Lungs, Mediastinum, Cardiomegaly Abnormal Lab Results 08/30/19 08/30/19 08:15 08:15 WBC 7.6 RBC 4.17 L Hgb 12.3 Hct 37.6 MCV 90.2 MCH 29.5 MCHC 32.7 RDW Std Deviation 42.7 RDW Coeff of Natalie 13.2 Plt Count 308 MPV 9.3 Immature Gran % (Auto) 0.500 Neut % (Auto) 72.0 H Lymph % (Auto) 15.5 L [place] % (Auto) 7.2 Eos % (Auto) 4.1 Baso % (Auto) 0.7 Absolute Neuts (auto) 5.5 Absolute Lymphs (auto) 1.18 Nucleated RBC % 0 Sodium 140 Potassium 3.4 L Chloride 105 Carbon Dioxide 31.0 Anion Gap 4 L BUN 23 H Creatinine 1.12 H Estim Creat Clear Calc 36.97 Est GFR (MDRD) Af Amer 62 Est GFR (MDRD) Non-Af 51 L BUN/Creatinine Ratio 20.5 H Glucose 97 Calcium 9.1 Magnesium 2.2 Troponin I < 0.015 - Rhythm Strip Rhythm Strip: Sinus Rhythm Rate: 80 Ectopy: None - EKG Initial EKG Interpretation: Sinus Rhythm, No Acute Injury Pattern Prior: Changed - Medical Decision Making The patient presents with chest pain and back pain that woke her from sleep. She states this is very similar to symptoms she had when she had a prior ME. EKG was obtained on patient arrival. It was sinus rhythm with an incomplete bundle. There is no acute ischemic change. Patient was given aspirin and sublingual nitro along with Nitropaste with market improvement of her pain. Cardiac enzymes were negative. Chest x-ray does not show focal infiltrative process. Given the patient's significant cardiac history, along with her description of pain, I do feel that she would benefit from observation for further cardiac work-up. Impression 1. Chest pain 2. History of coronary vascular disease with stents ED Disposition - Plan for ED Patient: Referrals: Feng Hayes MD [Primary Care Provider] -
[2019-08-30 08:20] LABS: Absolute Lymphocyte Count 1.18 X10^3/uL (0.83-4.51); Absolute Neutrophil Count 5.5 X10^3/uL (2.0-7.7); Basophil# 0.05 X10^3/uL; Basophil% 0.7 % (0-1); Eosinophil# 0.31 X10^3/uL; Eosinophils% 4.1 % (0-5); Hematocrit 37.6 % (37-47); Hemoglobin 12.3 g/dL (12.0-15.0); Lymphocyte # 1.18 X10^3/ul (4.0); Lymphocyte % 15.5 % (19-41); Mean Corp Hgb Conc 32.7 g/dL (32-36); Mean Corpuscular Hgb 29.5 pg (27.0-32.0); Mean Corpuscular Volume 90.2 fL (81-99); Mean Platelet Vol. 9.3 fl (6.2-12.0); Monocyte# 0.55 X10^3/uL; Monocyte% 7.2 % (0-10); NRBC Flagged by Analyzer 0 % (0-5); Platelet Count 308 K/mm3 (150-450); RBC Distribution Width CV 13.2 % (11.6-14.6); RBC Distribution Width SD 42.7 fl (35.1-43.9); Red Blood Count 4.17 M/mm3 (4.2-5.4); White Blood Count 7.6 K/mm3 (4.4-11.0)
[2019-08-30] MEDS: Nitroglycerin Oint 1 INCH PACKET TRANSDERM. (08:31)
[2019-08-30] MEDS: Aspirin 81 MG TAB.CHEW 324 MG PO (08:31)
[2019-08-30 08:36] LABS: Anion Gap 4 (5-15); BUN 23 mg/dL (7-18); BUN/Creat Ratio 20.5 RATIO (10-20); Calcium,Total 9.1 mg/dL (8.5-10.1); Chloride 105 mmol/L (98-107); Creatinine, Serum 1.12 mg/dL (0.55-1.02); EST Glomerular Filtration Rate 51 mL/min (>60); Est Glom Filt Rate - Afr Amer 62 mL/min (>60); Estimated Creatinine Clearance 36.97 ml/min; Glucose 97 mg/dL (74-106); Magnesium 2.2 mg/dL (1.6-2.6); Potassium 3.4 mmol/L (3.5-5.1); Sodium Level 140 mmol/L (136-145)
--- NOTE | 2019-08-30 09:02 | NURSING ---
DR YAIR CAMPBELL
--- NOTE | 2019-08-30 09:03 | PCM.HP.STD ---
Problem List (1) Atypical chest pain Status: Acute (2) BELLE (obstructive sleep apnea) Status: Chronic Comment: Bipap 17/13 cm of H2O (3) Atherosclerotic heart disease of [place] coronary artery without angina pectoris Status: Chronic Qualifiers: [place] vs. transplanted heart: [place] heart Qualified Code(s): I25.10 - Atherosclerotic heart disease of [place] coronary artery without angina pectoris (4) History of coronary artery stent placement Status: Inactive Comment: [id number] LCx and OM 03/20/99; PCI-CARMEN of distal RCA and POBA-ostium of posterolateral branch for stent jailing; PCI-CARMEN to RCA and PDA 02/20; PCI-CARMEN to ISR-RCA 04/21/2015; [id number] RPDA w/ 2.5 x 24 mm Promus Stent and Distal RCA w/ 3.0 x 16 mm Promus Stent and POBA Ostial RPLB 03/18/2019 (5) Paroxysmal atrial fibrillation Status: Chronic (6) Acute on chronic diastolic (congestive) heart failure Status: Chronic (7) Abdominal aortic aneurysm (AAA) Status: Chronic Qualifiers: Presence of rupture: without rupture Qualified Code(s): I71.4 - Abdominal aortic aneurysm, without rupture Comment: Redemonstration of infrarenal abdominal aortic aneurysm measuring up to 4.4 cm x 4.4 cm essentially similar to previous exam. 01/21/2019 (8) Essential (primary) hypertension Status: Chronic (9) HLD (hyperlipidemia) Status: Chronic Qualifiers: Hyperlipidemia type: pure hypercholesterolemia Qualified Code(s): E78.00 - Pure hypercholesterolemia, unspecified; E78.0 - Pure hypercholesterolemia (10) Non-STEMI (non-ST elevated myocardial infarction) Status: Chronic Comment: 04/21/2015, 03/19/2019 (11) Peripheral vascular occlusive disease Status: Chronic Comment: Bilateral SFA stents. Occluded Right SFA and angioplasty of in-stent stenosis of her left SFA. (12) COPD (chronic obstructive pulmonary disease) Status: Chronic Qualifiers: COPD type: unspecified COPD Qualified Code(s): J44.9 - Chronic obstructive pulmonary disease, unspecified (13) BELLE (obstructive sleep apnea) Status: Chronic Comment: Supposed to be on BiPAP (14) Nicotine dependence Status: Chronic Qualifiers: Nicotine product type: cigarettes Substance use status: in remission Qualified Code(s): F17.211 - Nicotine dependence, cigarettes, in remission History of Present Illness Date of Admission: 08/30/19 Chief Complaint: Chest pain today The patient is a 69 year old F with history of coronary artery disease and coronary stents came to ED with chest pain that started about 7 AM, felt like heaviness, but 5?6/10 intensity with radiation to intrascapular area, left upper extremity with tingling sensation and left carotid. This was associated with mild shortness of breath but no palpitation, diaphoresis, near syncope or syncope. Patient took 2 sublingual nitro tablets and her morning pills. She still felt heaviness and came to ER. [] In ED, vitals are in acceptable range except her heart rate 55/min. Twelve-lead EKG shows sinus bradycardia, incomplete left bundle branch block, QRS 112 ms, QTC 402 ms. Previous EKG on 04/18/2019 shows sinus rhythm with first-degree AV block at [address]-T changes noted. Basic labs done in the ER shows BUN 23, creatinine 1.12. K3.4. Past Medical History Past Medical History (Chronic Problems): Chronic Problems (Last Reviewed 07/08/19 @ 10:45 by Skylar White) BELLE (obstructive sleep apnea) (Chronic) Bipap 17/13 cm of H2O Atherosclerotic heart disease of [place] coronary artery without angina pectoris (Chronic) Paroxysmal atrial fibrillation (Chronic) Acute on chronic diastolic (congestive) heart failure (Chronic) Abdominal aortic aneurysm (AAA) (Chronic) Redemonstration of infrarenal abdominal aortic aneurysm measuring up to 4.4 cm x 4.4 cm essentially similar to previous exam. 01/21/2019 Essential (primary) hypertension (Chronic) HLD (hyperlipidemia) (Chronic) Non-STEMI (non-ST elevated myocardial infarction) (Chronic 03/19/19) 04/21/2015, 03/19/2019 Peripheral vascular occlusive disease (Chronic) Bilateral SFA stents. Occluded Right SFA and angioplasty of in-stent stenosis of her left SFA. COPD (chronic obstructive pulmonary disease) (Chronic) BELLE (obstructive sleep apnea) (Chronic) Supposed to be on BiPAP Nicotine dependence (Chronic) Medical History: Medical History (Last Reviewed 07/08/19 @ 10:45 by Skylar White) Atherosclerotic heart disease of [place] coronary artery without angina pectoris (Chronic) I25.10 Paroxysmal atrial fibrillation (Chronic) I48.0 Acute on chronic diastolic (congestive) heart failure (Chronic) I50.33 Abdominal aortic aneurysm (AAA) (Chronic) I71.4 Redemonstration of infrarenal abdominal aortic aneurysm measuring up to 4.4 cm x 4.4 cm essentially similar to previous exam. 01/21/2019 Essential (primary) hypertension (Chronic) I10 HLD (hyperlipidemia) (Chronic) E78.5 Non-STEMI (non-ST elevated myocardial infarction) (Chronic) Onset Date: 03/19/19 I21.4 04/21/2015, 03/19/2019 Peripheral vascular occlusive disease (Chronic) I73.9 Bilateral SFA stents. Occluded Right SFA and angioplasty of in-stent stenosis of her left SFA. COPD (chronic obstructive pulmonary disease) (Chronic) J44.9 BELLE (obstructive sleep apnea) (Chronic) Supposed to be on BiPAP Nicotine dependence (Chronic) F17.200 Anxiety and depression F41.8 Claudication in peripheral vascular disease I73.9 Emphysema of lung J43.9 IBS (irritable bowel syndrome) Obesity E66.9 Angina pectoris (Resolved) I20.9 Atrial fibrillation with RVR (Resolved) I48.91 Paroxsymal Hypokalemia (Resolved) E87.6 Unstable angina pectoris due to coronary arteriosclerosis (Resolved) I25.110 Dyspnea on exertion (Inactive) R06.09 PAD (peripheral artery disease) (Inactive) I73.9 Wheezing (Inactive) R06.2 Allergies lisinopril Allergy (Verified 08/30/19 08:10) tongue swelling Home Medications: Ambulatory Orders Medication Instructions Recorded Amitriptyline HCl [Elavil] 75 mg PO QHS 11/25/13 Citalopram [Celexa] 40 mg PO DAILY 11/25/13 Multivitamins,Therapeutic 1 tab PO DAILY 11/25/13 [Multivitamin] Pramipexole Di-HCl [Mirapex] 1 mg PO QHS 11/25/13 Melatonin 3 mg PO QHS PRN 04/25/17 nitroglycerin 0.4 mg sublingual 0.4 mg SUBLINGUAL Q5M PRN #25 tab 05/20/17 tablet vitamin E (dl, acetate) 400 unit 400 unit PO QDAY 08/12/17 capsule clopidogrel 75 mg tablet 75 mg PO DAILY #90 tab 11/25/17 ascorbic acid (vitamin C) 500 mg 500 mg PO DAILY cap 06/15/18 capsule cholecalciferol (vitamin D3) 25 1,000 unit PO DAILY 06/15/18 mcg (1,000 unit) capsule lidocaine 5 % topical patch 1 patch TOPICAL DAILY 06/15/18 albuterol sulfate 90 mcg/actuation 1 - 2 puff INHALATION Q4H PRN PRN 06/16/18 aerosol inhaler #1 inhaler amlodipine 10 mg tablet 10 mg PO DAILY #90 tab 11/18/18 amiodarone 200 mg tablet 200 mg PO DAILY #90 tab 11/26/18 Acetaminophen [Tylenol] 500 mg PO Q4H PRN PRN #20 tab 01/31/19 Aspirin E.C. [Ecotrin] 81 mg PO DAILY@0800 #30 tab 03/22/19 Furosemide [Lasix] 40 mg PO DAILY #30 tab 03/22/19 atorvastatin 40 mg tablet 40 mg PO DAILY tab 07/09/19 carvedilol 6.25 mg tablet 6.25 mg PO BID #60 tab 07/09/19 dicyclomine 10 mg capsule 10 mg PO 4X/DAY 07/09/19 famotidine 20 mg tablet 20 mg PO DAILY 07/09/19 gabapentin 300 mg capsule 300 mg PO TID 07/09/19 Fluticasone Propion/Salmeterol 1 ea IH BID 08/30/19 [Wixela 500-50 Inhub] Isosorbide Mononitrate [Isosorbide 60 mg PO DAILY 08/30/19 Mononitrate ER] Lisinopril [Zestril] 40 mg PO DAILY 08/30/19 Metoprolol Tartrate 25 mg PO DAILY 08/30/19 Ranitidine [Zantac] 150 mg PO DAILY 08/30/19 Rivaroxaban [Xarelto] 20 mg PO DAILY 08/30/19 Surgical History: Surgical History (Last Reviewed 07/08/19 @ 10:45 by Skylar White) History of coronary artery stent placement (Resolved) Onset Date: 03/18/19 Z95.5 [id number] LCx and OM 03/20/99; PCI-CARMEN of distal RCA and POBA-ostium of posterolateral branch for stent jailing; PCI-CARMEN to RCA and PDA 02/20; PCI-CARMEN to ISR-RCA 04/21/2015; [id number]-QAK-Urnb RPDA w/ 2.5 x 24 mm Promus Stent and Distal RCA w/ 3.0 x 16 mm Promus Stent and POBA Ostial RPLB 03/18/2019 History of angioplasty of peripheral vessel Z98.62 Bilateral SFA stents. Occluded Right SFA and angioplasty of in-stent stenosis of her left SFA. History of bilateral leg stents History of bunionectomy of right great toe Z98.890 History of colonoscopy Onset Date: ~06/2018 Z98.890 History of hysterectomy Z90.710 History of left heart catheterization Z98.890 03/20/99, 07/31/99,12/21/02, 06/2003, 02/2007, 12/2010, 04/20/15 History of tonsillectomy Z90.89 Hx of APLL Right X2-01/05/15, 11/26/13 Left X2- 02/15/15, 09/23/2016 Hx of hysterectomy Z90.710 Status post left foot surgery Z98.890 Surgical History: noncontributory, - - LE intervention for PAD per Dr. Gar, cardiac catheterizations w/ total PCI x 7, Lower back injections, DIOMEDES, T+A, R foot surgery. 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 Smoking Status: Unknown if ever smoked - *Family History Maternal Family History: Family History (Last Reviewed 07/08/19 @ 10:45 by Skylar White) Father Heart disease Hypertension Seizures Sister CVA (cerebral vascular accident) Hypertension Other Family history of hypertension History Items: Diabetes, High Cholesterol, Heart Disease, Hypertension, Stroke Paternal Family History: Family History (Last Reviewed 07/08/19 @ 10:45 by Skylar White) Father Heart disease Hypertension Seizures Sister CVA (cerebral vascular accident) Hypertension Other Family history of hypertension History Items: Diabetes, High Cholesterol, Heart Disease, Hypertension, Stroke Review of Systems Constitutional: Denies: Chills, Fever, Weight Change HEENT: Denies: Head Aches, Sinus Congestion, Sinus Drainage Cardiovascular: Reports: Chest Pain, Chest Pressure, Chest Tightness. Denies: Palpitations Respiratory: Reports: Shortness of breath at rest, Shortness of breath upon exertion. Denies: Cough, Sputum production Gastrointestinal: Denies: Abdominal Pain, Nausea, Vomiting Genitourinary: Denies: Dysuria, Frequency, Retention, Urgency Musculoskeletal: Denies: Joint Pain, Joint Tenderness Skin: Denies: Rash, Wounds Neurological: Denies: Focal weakness, Numbness, Tingling Psychiatric: Denies: Anxiety, Depression, Homicidal Ideations, Suicidal Ideations Hematologic/ Lymphatic: Denies: Easy Bruising, Easy Bleeding VTE Information - Inpt Only VTE Present on Admission: No VTE Mechan Device Prophylaxis: None VTE Pharm Prophylaxis ordered?: Yes Patient Problems: Active and Suspected Problems (Last Reviewed 07/08/19 @ 10:45 by Skylar White) Atypical chest pain (Acute) - Physical Exam Vitals/I&O's: Vital Signs Temp Pulse Resp BP Pulse Ox 98.5 F 60 16 144/69 H 99 08/30/19 08:07 08/30/19 08:31 08/30/19 08:07 08/30/19 08:31 08/30/19 08:20 Oxygen Flow Rate (L/min) 2 Oxygen Delivery Method Nasal Cannula Weight: 163 lb 9.6 oz Body Mass Index (BMI) 29.9 General: Alert, Oriented x3, Cooperative HEENT: Atraumatic, PERRLA, EOMI, Normocephalic Oral: No Gingival or Mucosal Lesions/ Ulcerations, Dry Mucosa Neck: Supple, No JVD, Negative Carotid Bruits Lungs: Clear to auscultation, Normal air movement, No rhonchi, No wheeze, No rales Cardiovascular: Regular rate, Regular Rhythm, Normal S1, Normal S2, No murmurs Abdomen: Bowel Sounds Present, Soft, Non Tender, Non-Distended Extremities: No edema, Capillary Refill Less than 3 Seconds Skin: No rashes, No breakdown Musculoskeletal: No Tenderness to Palpation of Joints or Extremities, Arthritic Changes Neurological: Cranial nerves II-XII grossly intact, Deep Tendon Reflexes 2+/4 and Symmetrical, Neuro grossly intact Psych/Mental Status: Normal Affect, Appropriate Laboratory Results 08/30/19 08:15: WBC 7.6, RBC 4.17 L, Hgb 12.3, Hct 37.6, MCV 90.2, MCH 29.5, MCHC 32.7, RDW Std Deviation 42.7, RDW Coeff of Natalie 13.2, Plt Count 308, MPV 9.3, Immature Gran % (Auto) 0.500, Neut % (Auto) 72.0 H, Lymph % (Auto) 15.5 L, [place] % (Auto) 7.2, Eos % (Auto) 4.1, Baso % (Auto) 0.7, Absolute Neuts (auto) 5.5, Absolute Lymphs (auto) 1.18, Nucleated RBC % 0 08/30/19 08:15: Sodium 140, Potassium 3.4 L, Chloride 105, Carbon Dioxide 31.0, Anion Gap 4 L, BUN 23 H, Creatinine 1.12 H, Estim Creat Clear Calc 36.97, Est GFR (MDRD) Af Amer 62, Est GFR (MDRD) Non-Af 51 L, BUN/Creatinine Ratio 20.5 H, Glucose 97, Calcium 9.1, Magnesium 2.2, Troponin I < 0.015 Current Medications Nitroglycerin (Nitrostat) 0.4 mg SUBLINGUAL Q5M PRN PRN Reason: Chest pain Assessment/Plan All Active Problems (Last Reviewed 07/08/19 @ 10:45 by Skylar White) Atypical chest pain (Acute) Angina pectoris (Resolved) Atrial fibrillation with RVR (Resolved) Chest pain (Resolved) Hypokalemia (Resolved) Preop cardiovascular exam (Resolved) Unstable angina pectoris due to coronary arteriosclerosis (Resolved) This 69-year-old patient woman with history of coronary artery status post multiple stents, chronic heart failure with preserved EF came to ED with sudden onset of chest pain along with shortness of breath suspicion of unstable angina 1. Atypical chest pain: Patient is being admitted in PCU. Serial troponin and EKG. If troponins negative, treadmill nuclear stress test tomorrow a.m. 2. Chronic diastolic heart failure: Last echo on March 2019 reported as EF 50%, HFpEF. Left atrium moderately large, 2+ eccentric MR 1+ AR. Hold Lasix as patient looks dehydrated with elevated BUN and creatinine than his baseline. Baseline creatinine 1.02. BUN/creatinine 23/1.12. IV fluid normal saline 75 mils per hour for 1 L. 3. Coronary artery disease status post multiple stents and peripheral vascular occlusive disease status post bilateral SFA stent: Last cardiac cath in March 2019 reported as dominant large RCA with area between mid and distal PDA about 80% stenotic lesion and 70 to 80% of posterior lateral branch stenosis with poststenotic aneurysm. Had PCI and stenting of PDA and posterolateral vessel. Patient is on aspirin, Plavix, isosorbide mononitrate, Coreg and statin 4. Paroxysmal A. fib: On amiodarone and Xarelto. Prolonged QTc interval, QTC 502 ms 5. COPD, obstructive sleep apnea on CPAP: Patient home inhaler, albuterol inhaler and fluticasone/salmeterol 1 inhalation twice daily continued. No clinical findings suggestive of acute exacerbation. Last PFT done in April 2019 reported as normal spirometry and lung volumes DLCO at lower limit of normal. She follows Dr. Marx. 6. Hypertension, dyslipidemia, cigarette smoking/nicotine dependence, anxiety: Blood pressure is controlled. On amlodipine and Coreg. Patient is not taking lisinopril. Citalopram is hold secondary to prolonged QTc interval. DVT prophylaxis: On Xarelto. Living will/advanced directive/end of life care: Patient does not have living will or advanced directive. After discussion of procedures involved with full code, DNR CC arrest and DNR CC, the patient opted for DNR-CC Arrest Patient does not want artificial life support including intubation, tube feed, ventilator and/chest compression, central venous catheter, vasopressor and DC shock if needed DNR CC arrest. Total time spent in [id number] encounter in discussion of advanced directive 16 minutes. OBSV E&M: 90141 Initial observation care L3 Procedures: 14810 Advncd Care Plan 30 Min
--- NOTE | 2019-08-30 09:06 | NURSING ---
PCU OBS KINA MAZARIEGOS
--- NOTE | 2019-08-30 10:18 | EKG12_ITS ---
Test Reason : ADMISSION: CP Blood Pressure : / mmHG Vent. Rate : 057 BPM Atrial Rate : 057 BPM P-R Int : 154 ms QRS Dur : 108 ms QT Int : 502 ms P-R-T Axes : -10 -16 062 degrees QTc Int : 488 ms Sinus bradycardia Incomplete left bundle branch block Borderline ECG Confirmed by GILBERT JEAN-BAPTISTE, FRANCIS ([id number]), material expeditor MAREN GRIMES ([id number]) on 09/01/2019 1:26:49 PM Referred By: YAIR Confirmed By:FRANCIS HUNT MD
--- NOTE | 2019-08-30 10:26 | CASEMGMT ---
Per Chloe FALCON, pt states that she had a bipap/cpap at home and that she couldn't get supplies and that the company came and took it away. Call to [facility] sleep lab and per compliance report from the last 30 days, pt only used machine 12 days and for an average of 33min, so only 26hours out of 30 days. Per Zully, this is the 2nd time that pt has been non-compliant with pap therapy at home and had equipment taken away. Zully also states that pt will have to go thru all testing to set up again. Pt updated at this time, voices understanding and states that it was set up with [employer]. Pt states that she had problems with equipment and [employer] never came out to check it. THis [facility]KIEL PALMER [facility] and [facility] refused, stating 'I have another cpap at home, I will just use that.' I don't want to deal with them([employer]) again. SStmaxwell FALCON CM
[2019-08-30 10:58] LABS: AST(SGOT) 18 U/L (15-37); Alanine Aminotransfer ALT/SGPT 27 U/L (13-56); Albumin, Serum 3.2 g/dL (3.2-5.0); Alkaline Phosphatase 122 U/L (45-117); Bilirubin, Direct 0.14 mg/dL (0.00-0.30); Globulin 3.6 g/dL (2.2-4.2); Protein, Total 6.8 g/dL (6.4-8.2)
[2019-08-30] MEDS: 0.9% Normal Saline 1,000 ML 75 ML IV (11:06)
[2019-08-30] MEDS: Ipratropium/Albuterol Sulfate 3 ML AMPUL.NEB INHALATION (14:06)
--- NOTE | 2019-08-30 14:36 | STRESSREP ---
Stress Test Report Pharmacologic myocardial perfusion stress test. 69-year-old lady with a history of coronary disease and chest pain. Stress protocol: Resting EKG demonstrates normal sinus rhythm with a rate of 57 bpm. Resting blood pressure is 110/74 mmHg. 0.4 mg of regadenoson was infused per usual protocol followed by rapid intravenous saline flush injection continuous EKG monitoring was performed. The maximum heart rate attained was 77 bpm which was 51% of maximum predicted heart rate the maximum workload was 1 metabolic equivalent. At rest there were no ST or T wave changes noted to suggest abnormal flow reserve at peak infusion nonspecific ST-T wave changes were noted with no meet the criteria for ischemia. The final blood pressure was 124/62 mmHg. Myocardial perfusion protocol. 12.0 mCi of technetium 99m sestamibi was injected at rest. 0.4 mg of regadenoson was infused per usual protocol. At peak infusion 36.0 mCi of technetium 99m sestamibi was injected stress images were obtained stress and rest images were reconstructed and compared in the short axis vertical long horizontal long axis. Gated images were also obtained Perfusion SPECT analysis: Review of the stress images demonstrate normal uptake of tracer noted in all areas of myocardium the resting images similar demonstrate normal uptake of tracer noted in all areas of the myocardium. No areas of reversibility are noted suggest ischemia no previous infarct is noted. Gated SPECT analysis: The gated ejection fraction is 56%. Conclusion: Normal pharmacologic myocardial perfusion stress test. Preserved ejection fraction.
--- NOTE | 2019-08-30 15:10 | DS.PCM_ITS ---
Discharge Date and Diagnosis - Problem List Patient Problems: Active and Suspected Problems (Last Reviewed 07/08/19 @ 10:45 by Skylar White) Atypical chest pain (Acute) Date of Admission: 08/30/19 Date of Discharge: 08/30/19 - Primary Discharge Diagnosis Acute Problems: Active Problems (Last Reviewed 07/08/19 @ 10:45 by Skylar White) Atypical chest pain (Acute) Acute coronary syndrome ruled out - Secondary Discharge Diagnosis Chronic Problems: Chronic Problems (Last Reviewed 07/08/19 @ 10:45 by Skylar White) BELLE (obstructive sleep apnea) (Chronic) Bipap 17/13 cm of H2O Atherosclerotic heart disease of [place] coronary artery without angina pectoris (Chronic) Paroxysmal atrial fibrillation (Chronic) Acute on chronic diastolic (congestive) heart failure (Chronic) Abdominal aortic aneurysm (AAA) (Chronic) Redemonstration of infrarenal abdominal aortic aneurysm measuring up to 4.4 cm x 4.4 cm essentially similar to previous exam. 01/21/2019 Essential (primary) hypertension (Chronic) HLD (hyperlipidemia) (Chronic) Non-STEMI (non-ST elevated myocardial infarction) (Chronic 03/19/19) 04/21/2015, 03/19/2019 Peripheral vascular occlusive disease (Chronic) Bilateral SFA stents. Occluded Right SFA and angioplasty of in-stent stenosis of her left SFA. COPD (chronic obstructive pulmonary disease) (Chronic) BELLE (obstructive sleep apnea) (Chronic) Supposed to be on BiPAP Nicotine dependence (Chronic) Hospital Course and Treatment Imaging Results: 08/30/19 08:08 Chest 1 View (Portable) [RAD] Stat 08/30/19 11:01 Nuclear Stress Test - Chemical [NM] Routine Operations: None Summary of Care Provided: The patient is a 69 year old F with history of multiple coronary stents, chronic heart failure preserved EF came to ER with chest pain severe shortness of breath. Serial EKG was done which shows no significant ST-T changes sensitive ischemia. Serial troponins negative. Patient had pharmacological stress test which shows no ischemia. Patient EKG shows sinus bradycardia at 57 bpm with incomplete left bundle branch, LAD. Repeat QTc interval shows 438 ms, improved from previous EKG 502 ms Patient has history of coronary artery disease with multiple stents, last one in March 2019 when she had 1 a stent in distal PDA and one posterolateral branch. She also proximal A. fib on amiodarone and Xarelto. Her home medications aspirin, Plavix, losartan 100, Coreg and atorvastatin continued. She also history of COPD, obstructive sleep apnea on CPAP. She follows Dr. Marx, is on maintenance inhaler, fluticasone/salmeterol, 500/50 mcg, 1 inhalation twice daily. No acute exacerbation. Her other comorbidities including hypertension, dyslipidemia are controlled. Advised cigarette smoking quitting Discharge medication reconciliation done. Discharge follow-up instructions completed. Discharge process discussed with the patient and all questions were answered to patient's satisfaction. Citalopram dose was decreased to 20 mg daily from tomorrow after holding today. Total time spent, exact 35 minutes on discharge meds reconciliation, examination, coordination of care with nurses and ancillary staff, review of imaging and blood test and discussion with the patient on follow-up instructions Patient Problems: Active and Suspected Problems (Last Reviewed 07/08/19 @ 10:45 by Skylar White) Atypical chest pain (Acute) - Physical Exam Vitals/I&O's: Vital Signs Temp Pulse Resp BP Pulse Ox 98.1 F 55 L 16 121/58 H 92 08/30/19 09:47 08/30/19 10:41 08/30/19 09:47 08/30/19 09:47 08/30/19 09:47 Oxygen Flow Rate (L/min) 2 Oxygen Delivery Method Room Air Weight: 157 lb Body Mass Index (BMI) 28.7 Intake and Output for Last 24 Hours 08/28/19 08/29/19 08/30/19 23:59 23:59 23:59 Intake Total 88.75 / 88.75 Balance 88.75 / 88.75 Laboratory Results 08/30/19 08:15: WBC 7.6, RBC 4.17 L, Hgb 12.3, Hct 37.6, MCV 90.2, MCH 29.5, MCHC 32.7, RDW Std Deviation 42.7, RDW Coeff of Natalie 13.2, Plt Count 308, MPV 9.3, Immature Gran % (Auto) 0.500, Neut % (Auto) 72.0 H, Lymph % (Auto) 15.5 L, [place] % (Auto) 7.2, Eos % (Auto) 4.1, Baso % (Auto) 0.7, Absolute Neuts (auto) 5.5, Absolute Lymphs (auto) 1.18, Nucleated RBC % 0 08/30/19 08:15: Sodium 140, Potassium 3.4 L, Chloride 105, Carbon Dioxide 31.0, Anion Gap 4 L, BUN 23 H, Creatinine 1.12 H, Estim Creat Clear Calc 36.97, Est GFR (MDRD) Af Amer 62, Est GFR (MDRD) Non-Af 51 L, BUN/Creatinine Ratio 20.5 H, Glucose 97, Calcium 9.1, Magnesium 2.2, Troponin I < 0.015 08/30/19 10:30: Total Bilirubin 0.40, Direct Bilirubin 0.14, AST 18, ALT 27, Alkaline Phosphatase 122 H, Troponin I < 0.015, Total Protein 6.8, Albumin 3.2, Globulin 3.6 08/30/19 13:55: Troponin I < 0.015 Current Medications Acetaminophen (Tylenol) 650 mg PO Q6H PRN PRN PRN Reason: Pain Score 1-10/Temp > 100.7 F Albuterol Sulfate (Ventolin Aerosols) 2.5 mg INHALATION Q4H PRN PRN Reason: Dyspnea, wheezing Albuterol/Ipratropium (Duoneb) 3 ml INHALATION Q6HWA.RT [facility] Last Admin: 08/30/19 14:06 Dose: 3 ml Documented by: Amiodarone HCl (Cordarone) 200 mg PO DAILY [facility] Last Admin: 08/30/19 11:11 Dose: Not Given Documented by: Amitriptyline HCl (Elavil) 75 mg PO QHS [facility] Amlodipine Besylate (Norvasc) 10 mg PO DAILY [facility] Last Admin: 08/30/19 11:12 Dose: Not Given Documented by: Aspirin (Ecotrin) 81 mg PO DAILY@0800 [facility] Atorvastatin Calcium (Lipitor) 40 mg PO DAILY@2200 [facility] Budesonide (Pulmicort Aerosol) 0.5 mg INHALATION Q12H.RT [facility] Carvedilol (Coreg) 6.25 mg PO BID [facility] Last Admin: 08/30/19 11:11 Dose: Not Given Documented by: Clopidogrel Bisulfate (Plavix) 75 mg PO QHS [facility] Dextrose (D50w Syringe) 0 gm IV X1 PRN; Protocol PRN Reason: Hypoglycemia Dicyclomine HCl (Bentyl) 10 mg PO ACHS [facility] Famotidine (Pepcid) 20 mg PO QHS [facility] Furosemide (Lasix) 40 mg PO DAILY [facility] Last Admin: 08/30/19 11:12 Dose: Not Given Documented by: Gabapentin (Neurontin) 300 mg PO QHS [facility] Glucagon () 1 mg IM .X1 PRN PRN Reason: Hypoglycemia Sodium Chloride () 250 mls @ 15 mls/hr IV .[id number] PRN PRN Reason: Saline Flush Sodium Chloride () 250 mls @ 15 mls/hr IV .[id number] PRN PRN Reason: Additional IVPB Infusion Sodium Chloride () 1,000 mls @ 75 mls/hr IV .[id number] [facility] Stop: 08/30/19 23:37 Last Infusion: 08/30/19 14:20 Dose: 75 mls/hr Documented by: Isosorbide Mononitrate (Imdur) 60 mg PO DAILY [facility] Last Admin: 08/30/19 11:11 Dose: Not Given Documented by: Lidocaine (Lidoderm Patch) 1 patch TOPICAL DAILY PRN PRN; Protocol PRN Reason: Pain Score 1-10/10 Melatonin (Melatonin) 3 mg PO QHS PRN PRN Reason: insomnia Morphine Sulfate () 2 mg IV Q3H PRN PRN PRN Reason: Pain Score 6-10/10 Nitroglycerin (Nitrostat) 0.4 mg SUBLINGUAL Q5M PRN PRN Reason: CHEST Oxycodone HCl (Oxyir) 5 mg PO Q4H PRN PRN PRN Reason: Pain Score 4-5/10 Pramipexole Dihydrochloride (Mirapex) 1 mg PO QHS [facility] Prochlorperazine Edisylate (Compazine Iv) 5 mg IV Q4H PRN PRN PRN Reason: Breakthrough Nausea/Vomiting Rivaroxaban (Xarelto) 20 mg PO DAILY@1700 [facility] Senna/Docusate Sodium (Senokot-S, Sunni-Colace) 2 tablet PO BID PRN PRN PRN Reason: Constipation Sodium Chloride () 10 - 40 ml IV UD PRN PRN Reason: SALINE FLUSH Vitamin E (Vitamin E) 400 units PO BID [facility] Discharge Activity: May Not Drive - FOR 2-3 DAYS Call your doctor if you observe: Fever of 101 or Higher, Coldness, Increased Pain, Change in Color, Inability to urinate, Inability to have a bowel movement, Using more than one pad per hour, Shortness of breath, Dizziness, Fainting spells, Swelling in the ankles, Chest pain, Prolonged hiccoughing, Increased palpitations (irregular heartbeat), Calf discomfort, Uncontrolled pain Home Medications: Medications to take at Discharge Amitriptyline HCl [Elavil] 75 mg PO QHS 11/25/13 Multivitamins,Therapeutic [Multivitamin] 1 tab PO DAILY 11/25/13 Pramipexole Di-HCl [Mirapex] 1 mg PO QHS 11/25/13 Melatonin 3 mg PO QHS PRN 04/25/17 nitroglycerin 0.4 mg sublingual tablet 0.4 mg SUBLINGUAL Q5M PRN #25 tab 05/20/17 vitamin E (dl, acetate) 400 unit capsule 400 unit PO BID 08/12/17 ascorbic acid (vitamin C) 500 mg capsule 500 mg PO DAILY cap 06/15/18 cholecalciferol (vitamin D3) 25 mcg (1,000 unit) capsule 1,000 unit PO DAILY 06/15/18 lidocaine 5 % topical patch 1 patch TOPICAL DAILY PRN 06/15/18 albuterol sulfate 90 mcg/actuation aerosol inhaler 1 - 2 puff INHALATION Q4H PRN PRN #1 inhaler 06/16/18 amlodipine 10 mg tablet 10 mg PO DAILY #90 tab 11/18/18 amiodarone 200 mg tablet 200 mg PO DAILY #90 tab 11/26/18 Acetaminophen [Tylenol] 500 mg PO Q4H PRN PRN #20 tab 01/31/19 Aspirin E.C. [Ecotrin] 81 mg PO DAILY@0800 #30 tab 03/22/19 atorvastatin 40 mg tablet 40 mg PO QHS tab 07/09/19 carvedilol 6.25 mg tablet 6.25 mg PO BID #60 tab 07/09/19 dicyclomine 10 mg capsule 10 mg PO 4X/DAY 07/09/19 famotidine 20 mg tablet 20 mg PO QHS 07/09/19 gabapentin 300 mg capsule 300 mg PO QHS 07/09/19 Citalopram [Celexa] 20 mg PO QHS #0 08/30/19 Clopidogrel Bisulfate [Plavix] 75 mg PO QHS 08/30/19 Fluticasone Propion/Salmeterol [Wixela 500-50 Inhub] 1 ea IH PRN PRN 08/30/19 Furosemide [Lasix] 40 mg PO DAILY #30 tab 08/30/19 Isosorbide Mononitrate [Isosorbide Mononitrate ER] 60 mg PO DAILY 08/30/19 Metoprolol Tartrate 25 mg PO DAILY 08/30/19 Rivaroxaban [Xarelto] 20 mg PO QHS 08/30/19 Primary Care Physician: Feng Hayes MD [Primary Care Provider] - Please follow up with your Primary Care Physician in: IN 1-2 weeks Please Follow Up With: Jaime Treviño MD When: in 4 weeks Medical Necessity - Tobacco Use Smoking Status: Former smoker Meaningful Use Info Meaningful Use Diagnoses (Choose all that apply): None applicable OBSV E&M: 24027 Observ/hosp same date L3
--- NOTE | 2019-08-30 15:27 | CASEMGMT ---
SW completed Healthcare Power of [employer] and Healthcare Living Will with patient. Copies were made and given to patient along with originals. Copies were also placed in patient's chart. Hawa BEST
== END 2019-08-30 15:09 | disposition home or self-care (01) ==
LOC: ED 08:35 → PCU 09:16
PROVIDERS: Admitting Provider Internal Medicine; Emergency Provider Emergency Medicine; PCP Family Medicine; Visit Provider Internal Medicine
DX: R07.89 Other chest pain (principal); G47.33 Obstructive sleep apnea (adult) (pediatric); I48.0 Paroxysmal atrial fibrillation; I25.10 Atherosclerotic heart disease of native coronary artery without angina pectoris; I11.0 Hypertensive heart disease with heart failure; I50.32 Chronic diastolic (congestive) heart failure; I25.2 Old myocardial infarction; J44.9 Chronic obstructive pulmonary disease, unspecified; I73.9 Peripheral vascular disease, unspecified; E78.5 Hyperlipidemia, unspecified; M54.9 Dorsalgia, unspecified; M54.2 Cervicalgia; M79.602 Pain in left arm; Z79.899 Other long term (current) drug therapy; Z79.82 Long term (current) use of aspirin; Z79.02 Long term (current) use of antithrombotics/antiplatelets; Z95.5 Presence of coronary angioplasty implant and graft; Z87.891 Personal history of nicotine dependence; F41.9 Anxiety disorder, unspecified; F32.9 Major depressive disorder, single episode, unspecified; Z79.01 Long term (current) use of anticoagulants
CPT/HCPCS: 36415; 71045; 78452; 80048; 80076; 83735; 84484; 85025; 93005; 93017; 94640; 96360; 96361; 97802; 99218; 99285; A9500; J7030; A4216; G0378; J2785

== ENCOUNTER → 2019-10-08 15:37 | Outpatient (CLI) | payer MEDICARE, MEDICAID, SELFPAY ==
[2019-07-16 09:26] VITALS: BMI 29.5
[2019-08-30 09:43] VITALS: BMI 28.7
[2019-10-08 17:38] LABS: AST(SGOT) 20 U/L (15-37); Alanine Aminotransfer ALT/SGPT 22 U/L (13-56); Albumin, Serum 3.6 g/dL (3.2-5.0); Alkaline Phosphatase 120 U/L (45-117); Bilirubin, Direct 0.15 mg/dL (0.00-0.30); Globulin 3.6 g/dL (2.2-4.2); Protein, Total 7.2 g/dL (6.4-8.2); Thyroid Stim Hormone (TSH) 2.86 uIU/mL (0.358-3.74)
== END ==
PROVIDERS: PCP Family Medicine; Referring Provider Physician Assistant Medical; Visit Provider Physician Assistant Medical
DX: I48.0 Paroxysmal atrial fibrillation (principal); E78.00 Pure hypercholesterolemia, unspecified
CPT/HCPCS: 36415; 80076; 84443

== ENCOUNTER → 2019-11-19 07:47 | Outpatient (CLI) | payer MEDICARE, MEDICAID, SELFPAY ==
[2019-07-16 09:26] VITALS: BMI 29.5
[2019-11-15 07:46] VITALS: BMI 29.9
--- NOTE | 2019-11-19 07:48 | CT_ITS ---
STUDY: LOW DOSE CT LUNG CANCER SCREENING REASON FOR EXAM: Female, 69 years old. TOBACCO USE, 1/2 PPD X 30 YRS. RADIATION DOSAGE (If Supplied By Facility): CTDIvol = ( 3.02 ) mGy, DLP = ( 99.68 ) mGycm TECHNIQUE: No contrast was administered. Low dose technique was utilized (average mAS-38 and kVp 120). 1.25 mm axial source images with a slice interval of 1.25-mm were reconstructed in lung windows. 2.5 mm axial source images with a slice interval of 2.5-mm were reconstructed in lung windows. 5.0 mm axial source images with a slice interval of 5.0-mm were reconstructed in soft tissue windows. Nodule measured using lung windows on PACS and/or independent workstation with automated measurement of minimum and maximum diameter. Nodule measurement reported as average diameter rounded to the nearest whole number. Growth is defined as an increase ins size of greater than 1.5 mm. COMPARISON: None. NODULES: No nodules are seen. Emphysema: Mild degree of the linear scarring at the lung bases. Endobronchial lesion: None Aorta: Atherosclerotic plaque formation of the aortic arch and descending thoracic aorta. Coronary arteries: Coronary artery calcification. Heart: Unremarkable. Pulmonary artery: Unremarkable. Mediastinal nodes: Small benign-appearing mediastinal lymph nodes. Other chest and abdominal findings: Degenerative changes of the thoracic spine. CT/Low Dose CT Lung Screening IMPRESSION: Lung-RADS category 2 - Continue annual screening with LDCT in 12 months. IMPORTANT NOTES FOR USE: ACR Lung-RADS Version 1.0 Assessment Categories Release Date: July 12, 2013 Category: Coded 0-4 bases on nodule(s) with highest degree of suspicion. Negative screen is defined as categories 1 and 2; a positive screen is defined as categories 3 and 4. Category 3 and 4A nodules that are unchanged on interval CT should be coded as category 2, and individuals returned to screening in 12 months. Category 4X: Category 3 or 4 nodules with additional imaging findings that increase the suspicion of lung cancer, such as spiculation, GGN that doubles in size in 1 year, enlarged lymph notes, etc. Category Modifiers: S (significant finding unrelated to lung cancer) and C (prior history of treated lung cancer) may be added to the 0-4 Lung-RADS Electronically Signed: Brown Yanes, at 9:39 EDT , Service support ,
== END ==
PROVIDERS: PCP Family Medicine; Referring Provider Nurse Practitioner Acute Care; Visit Provider Nurse Practitioner Acute Care
DX: F17.210 Nicotine dependence, cigarettes, uncomplicated (principal)
CPT/HCPCS: G0297

== ENCOUNTER 2019-11-23 14:52 | Observation (INO) | payer MEDICARE, MEDICAID, SELFPAY ==
[2019-07-16 09:26] VITALS: BMI 29.5
[2019-11-15 07:46] VITALS: BMI 29.9
[2019-11-23] VITALS (9 sets, daily range): BP systolic 122–177; BP diastolic 50–85; PULSE 55–60; RESP 13–16; TEMP 36.1–37; O2SAT 96–98; BMI 30.3; BMI 29.7
--- NOTE | 2019-11-23 14:59 | RAD_ITS ---
STUDY: X-RAY CHEST REASON FOR EXAM: Female, 69 years old. CHEST PAIN TECHNIQUE: Single AP portable view of the chest. COMPARISON: 08/30/2019 FINDINGS: EKG leads overlie the chest The lungs are clear and expanded. There is no demonstrated pleural abnormality. Normal size heart. Normal mediastinum and artis. Normal visualized pulmonary arteries. There is atherosclerotic calcification of the aortic arch with tortuosity. Normal visualized thoracic spine. Normal visualized ribs, clavicles, and shoulders. There is no demonstrated abnormality of the visualized soft tissue structures of the upper abdomen. RAD/Chest 1 View (Portable) IMPRESSION: No acute pulmonary process Electronically Signed: Bill Hsu MD at 15:41 EDT , Service support ,
--- NOTE | 2019-11-23 14:59 | EKG12_ITS ---
Test Reason : CP ADMIT Blood Pressure : / mmHG Vent. Rate : 055 BPM Atrial Rate : 055 BPM P-R Int : 148 ms QRS Dur : 112 ms QT Int : 494 ms P-R-T Axes : 019 -11 023 degrees QTc Int : 472 ms Sinus bradycardia Incomplete left bundle branch block Nonspecific ST abnormality Abnormal ECG When compared with ECG of 23-NOV-2019 14:56, MANUAL COMPARISON REQUIRED, DATA IS UNCONFIRMED Confirmed by MARTIN JEAN-BAPTISTE, GABO ([id number]), desk editor LIGIA GTUIERREZ ([id number]) on 11/29/2019 1:31:13 PM Referred By: DR HANCOCK Confirmed By:TITA SALAZAR MD
--- NOTE | 2019-11-23 15:03 | ED.DCSUM_ITS ---
- ER Visit Summary Date of Service: 11/23/19 Chief Complaint: Chest pain History of Present Illness: The patient is a 69 F presenting with chest pain. She states this started around noon. She states she was taking down outdoor decorations and she started to have midsternal chest heaviness. She states the pain radiates to her jaw. She had associated diaphoresis, nausea, shortness of breath with this. She took 3 nitro prior to arrival. Her pain went from a 10 to an 8. She was given aspirin per EMS. She has history of CAD, CHF, hypertension, hypercholesteremia, A. fib. She is a smoker. Physical Examination: Vitals are stable. Patient is afebrile. Alert no acute distress. HEENT exam is unremarkable. Neck is supple. Lungs are clear and equal bilaterally. Heart is regular rate and rhythm. Abdomen is soft nontender nondistended. Extremities are unremarkable. Skin is warm and dry. No focal neurologic deficit. Remainder of exam is unremarkable. Emergency Department Course and Treatment: EKG is sinus bradycardia rate of 57, similar to previous. Patient was given morphine, Zofran. Chest x-ray shows no acute process. CBC unremarkable. Chemistries unremarkable. Troponin is negative. Patient is chest pain-free on reevaluation. Discussed with the hospitalist for observation. Disposition: Observation Impression: Chest pain This note was generated with Bango dictation software. It may contain incorrect words, spelling, and punctuation that were not noted in review of the chart prior to signing ED Disposition - Plan for ED Patient: Disposition: Acute Care [facility]
[2019-11-23] MEDS: Morphine 4 MG/ML Syringe IV (15:30)
[2019-11-23] MEDS: Ondansetron 4 MG/2 ML Vial IV (15:30)
[2019-11-23 15:38] LABS: Absolute Lymphocyte Count 1.49 X10^3/uL (0.83-4.51); Absolute Neutrophil Count 8.8 X10^3/uL (2.0-7.7); Basophil# 0.03 X10^3/uL; Basophil% 0.3 % (0-1); Eosinophil# 0.18 X10^3/uL; Eosinophils% 1.6 % (0-5); Hematocrit 40.1 % (37-47); Hemoglobin 13.3 g/dL (12.0-15.0); Lymphocyte # 1.49 X10^3/ul (4.0); Lymphocyte % 13.6 % (19-41); Mean Corp Hgb Conc 33.2 g/dL (32-36); Mean Corpuscular Hgb 29.5 pg (27.0-32.0); Mean Corpuscular Volume 88.9 fL (81-99); Mean Platelet Vol. 11.1 fl (6.2-12.0); Monocyte# 0.46 X10^3/uL; Monocyte% 4.2 % (0-10); NRBC Flagged by Analyzer 0 % (0-5); Neutrophil # 8.76 X10^3/uL (2.7-7.7); Neutrophil % 79.8 % (47-70); Platelet Count 223 K/mm3 (150-450); RBC Distribution Width CV 12.6 % (11.6-14.6); RBC Distribution Width SD 41.1 fl (35.1-43.9); Red Blood Count 4.51 M/mm3 (4.2-5.4)
[2019-11-23 15:55] LABS: Anion Gap 5 (5-15); BUN 16 mg/dL (7-18); BUN/Creat Ratio 15.8 RATIO (10-20); Calcium,Total 8.9 mg/dL (8.5-10.1); Chloride 106 mmol/L (98-107); Creatinine, Serum 1.01 mg/dL (0.55-1.02); EST Glomerular Filtration Rate 58 mL/min (>60); Est Glom Filt Rate - Afr Amer 70 mL/min (>60); Estimated Creatinine Clearance 40.99 ml/min; Glucose 92 mg/dL (74-106); Lipase 96 U/L (73-393); Potassium 3.5 mmol/L (3.5-5.1); Sodium Level 142 mmol/L (136-145)
--- NOTE | 2019-11-23 17:00 | PCM.HP.STD ---
Problem List (1) Chest pain Status: Acute (2) Abdominal aortic aneurysm (AAA) Status: Chronic Qualifiers: Comment: Redemonstration of infrarenal abdominal aortic aneurysm measuring up to 4.4 cm x 4.4 cm essentially similar to previous exam. 01/21/2019 (3) Acute on chronic diastolic (congestive) heart failure Status: Chronic (4) COPD (chronic obstructive pulmonary disease) Status: Chronic Qualifiers: (5) Essential (primary) hypertension Status: Chronic (6) History of coronary artery stent placement Status: Inactive Comment: [id number] LCx and OM 03/20/99; PCI-CARMEN of distal RCA and POBA-ostium of posterolateral branch for stent jailing; PCI-CARMEN to RCA and PDA 02/20; PCI-CARMEN to ISR-RCA 04/21/2015; [id number] RPDA w/ 2.5 x 24 mm Promus Stent and Distal RCA w/ 3.0 x 16 mm Promus Stent and POBA Ostial RPLB 03/18/2019 (7) HLD (hyperlipidemia) Status: Chronic Qualifiers: (8) Nicotine dependence Status: Chronic Qualifiers: (9) BELLE (obstructive sleep apnea) Status: Chronic Comment: Bipap 17/13 cm of H2O (10) Paroxysmal atrial fibrillation Status: Chronic (11) Peripheral vascular occlusive disease Status: Chronic Comment: Bilateral SFA stents. Occluded Right SFA and angioplasty of in-stent stenosis of her left SFA. History of Present Illness Date of Admission: 11/23/19 Chief Complaint: chest pain The patient is a 69 year old F with past medical history as above, extensive cardiac history, notably recent stent placement in March of this year, recent stress test in August of this year that was negative, who presents to the hospital with complaints of chest pain. She states that this began earlier today approximately noon. She was at rest when it started. She describes it as a pressure that began in her abdomen with bloating and moved into her chest and then radiated into her left arm and her neck and jaw bilaterally. The chest pain continued after 3 doses of nitro with some relief, after receiving 4 doses of baby aspirin in the ER completely resolved. At the moment she has no chest pain, shortness of breath, diaphoresis, lightheadedness or dizziness, palpitations. The patient does continue to smoke. She states that prior to today she has not had any chest pain. [] Past Medical History Past Medical History (Chronic Problems): Chronic Problems (Last Reviewed 11/15/19 @ 07:50 by Maya Klein HAND STONECUTTER, HAND STONECUTTER-C) BELLE (obstructive sleep apnea) (Chronic) Bipap 17/13 cm of H2O Atherosclerotic heart disease of [place] coronary artery without angina pectoris (Chronic) Paroxysmal atrial fibrillation (Chronic) Acute on chronic diastolic (congestive) heart failure (Chronic) Abdominal aortic aneurysm (AAA) (Chronic) Redemonstration of infrarenal abdominal aortic aneurysm measuring up to 4.4 cm x 4.4 cm essentially similar to previous exam. 01/21/2019 Essential (primary) hypertension (Chronic) HLD (hyperlipidemia) (Chronic) Non-STEMI (non-ST elevated myocardial infarction) (Chronic 03/19/19) 04/21/2015, 03/19/2019 Peripheral vascular occlusive disease (Chronic) Bilateral SFA stents. Occluded Right SFA and angioplasty of in-stent stenosis of her left SFA. COPD (chronic obstructive pulmonary disease) (Chronic) BELLE (obstructive sleep apnea) (Chronic) Supposed to be on BiPAP Nicotine dependence (Chronic) Medical History: Medical History (Last Reviewed 11/15/19 @ 07:50 by Maya Klein HAND STONECUTTER, HAND STONECUTTER-C) Atherosclerotic heart disease of [place] coronary artery without angina pectoris (Chronic) I25.10 Paroxysmal atrial fibrillation (Chronic) I48.0 Acute on chronic diastolic (congestive) heart failure (Chronic) I50.33 Abdominal aortic aneurysm (AAA) (Chronic) I71.4 Redemonstration of infrarenal abdominal aortic aneurysm measuring up to 4.4 cm x 4.4 cm essentially similar to previous exam. 01/21/2019 Essential (primary) hypertension (Chronic) I10 HLD (hyperlipidemia) (Chronic) E78.5 Non-STEMI (non-ST elevated myocardial infarction) (Chronic) Onset Date: 03/19/19 I21.4 04/21/2015, 03/19/2019 Peripheral vascular occlusive disease (Chronic) I73.9 Bilateral SFA stents. Occluded Right SFA and angioplasty of in-stent stenosis of her left SFA. COPD (chronic obstructive pulmonary disease) (Chronic) J44.9 BELLE (obstructive sleep apnea) (Chronic) Supposed to be on BiPAP Nicotine dependence (Chronic) F17.200 Anxiety and depression F41.8 Claudication in peripheral vascular disease I73.9 Emphysema of lung J43.9 IBS (irritable bowel syndrome) Obesity E66.9 Angina pectoris (Resolved) I20.9 Atrial fibrillation with RVR (Resolved) I48.91 Paroxsymal Hypokalemia (Resolved) E87.6 Unstable angina pectoris due to coronary arteriosclerosis (Resolved) I25.110 Dyspnea on exertion (Inactive) R06.09 PAD (peripheral artery disease) (Inactive) I73.9 Wheezing (Inactive) R06.2 Allergies lisinopril Allergy (Verified 11/15/19 07:28) tongue swelling Home Medications: Ambulatory Orders Medication Instructions Recorded Amitriptyline HCl [Elavil] 75 mg PO QHS 11/25/13 Multivitamins,Therapeutic 1 tab PO DAILY 11/25/13 [Multivitamin] Pramipexole Di-HCl [Mirapex] 1 mg PO QHS 11/25/13 nitroglycerin 0.4 mg sublingual 0.4 mg SUBLINGUAL Q5M PRN #25 tab 05/20/17 tablet ascorbic acid (vitamin C) 500 mg 500 mg PO BID cap 06/15/18 capsule albuterol sulfate 90 mcg/actuation 1 - 2 puff INHALATION Q4H PRN PRN 06/16/18 aerosol inhaler #1 inhaler Acetaminophen [Tylenol] 500 mg PO Q4H PRN PRN #20 tab 01/31/19 atorvastatin 40 mg tablet 40 mg PO QHS tab 07/09/19 dicyclomine 10 mg capsule 10 mg PO 4X/DAY 07/09/19 famotidine 20 mg tablet 20 mg PO BID 07/09/19 gabapentin 300 mg capsule 300 mg PO QHS 07/09/19 Clopidogrel Bisulfate [Plavix] 75 mg PO QHS 08/30/19 Furosemide [Lasix] 40 mg PO DAILY #30 tab 08/30/19 Rivaroxaban [Xarelto] 20 mg PO QHS 08/30/19 isosorbide mononitrate 60 mg 60 mg PO DAILY tab 10/08/19 tablet,extended release 24 hr Amiodarone HCl 200 mg PO DAILY 11/23/19 Amlodipine Besylate 10 mg PO DAILY 11/23/19 Aspirin E.C. [Ecotrin] 81 mg PO DAILY@199911/23/19 Carvedilol 6.25 mg PO BID 11/23/19 Cholecalciferol (Vitamin D3) 1,000 unit PO DAILY 11/23/19 [Vitamin D3] Vitamin E 400 unit PO BID 11/23/19 Surgical History: Surgical History (Last Reviewed 11/15/19 @ 07:50 by Maya Klein HAND STONECUTTER, HAND STONECUTTER-C) History of coronary artery stent placement (Inactive) Onset Date: 03/18/19 Z95.5 [id number] LCx and OM 03/20/99; PCI-CARMEN of distal RCA and POBA-ostium of posterolateral branch for stent jailing; PCI-CARMEN to RCA and PDA 02/20; PCI-CARMEN to ISR-RCA 04/21/2015; [id number] RPDA w/ 2.5 x 24 mm Promus Stent and Distal RCA w/ 3.0 x 16 mm Promus Stent and POBA Ostial RPLB 03/18/2019 History of angioplasty of peripheral vessel Z98.62 Bilateral SFA stents. Occluded Right SFA and angioplasty of in-stent stenosis of her left SFA. History of bilateral leg stents History of bunionectomy of right great toe Z98.890 History of colonoscopy Onset Date: ~06/2018 Z98.890 History of hysterectomy Z90.710 History of left heart catheterization Z98.890 03/20/99, 07/31/99,12/21/02, 06/2003, 02/2007, 12/2010, 04/20/15 History of tonsillectomy Z90.89 Hx of APLL Right X2-01/05/15, 11/26/13 Left X2- 02/15/15, 09/23/2016 Hx of hysterectomy Z90.710 Status post left foot surgery Z98.890 Surgical History: noncontributory, - - LE intervention for PAD per Dr. Gar, cardiac catheterizations w/ total PCI x 7, Lower back injections, DIOMEDES, T+A, R foot surgery. 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 SPECIALIST history Lives: Alone Smoking Status: Current every day smoker Tobacco Use: Cigarettes Alcohol: None Drugs: None - *Family History Maternal Family History: Family History (Last Reviewed 11/23/19 @ 17:03 by Werner QUIROZ, PA) Father Heart disease Hypertension Seizures Sister CVA (cerebral vascular accident) Hypertension Other Family history of hypertension History Items: Diabetes, High Cholesterol, Heart Disease, Hypertension, Stroke Paternal Family History: Family History (Last Reviewed 11/23/19 @ 17:03 by GABRIELLA Bullock) Father Heart disease Hypertension Seizures Sister CVA (cerebral vascular accident) Hypertension Other Family history of hypertension History Items: Diabetes, High Cholesterol, Heart Disease, Hypertension, Stroke Review of Systems Constitutional: Denies: Chills, Fever, Weight Change HEENT: Denies: Head Aches, Sinus Congestion, Sinus Drainage Cardiovascular: Reports: Chest Pain, Chest Pressure. Denies: Edema, Heaviness, Light Headedness, Palpitations, Paroxysmal Noc. Dyspnea, Syncope Respiratory: Denies: Cough, Shortness of Breath, Shortness of breath at rest, Sputum production, Wheezing Gastrointestinal: Reports: Abdominal Pain. Denies: Diarrhea, Nausea, Vomiting Genitourinary: Denies: Dysuria Musculoskeletal: Denies: Joint Pain, Joint Tenderness Skin: Denies: Rash, Wounds Neurological: Denies: Numbness, Tingling, Focal weakness Psychiatric: Denies: Anxiety, Depression, Homicidal Ideations, Suicidal Ideations Hematologic/ Lymphatic: Denies: Easy Bruising, Easy Bleeding VTE Information - Inpt Only VTE Present on Admission: No VTE Mechan Device Prophylaxis: None VTE Pharm Prophylaxis ordered?: Yes Patient Problems: Active and Suspected Problems (Last Reviewed 11/15/19 @ 07:50 by Maya Klein HAND STONECUTTER, HAND STONECUTTER-C) Chest pain (Acute) - Physical Exam Vitals/I&O's: Vital Signs Temp Pulse Resp BP Pulse Ox 98.5 F 58 L 15 150/85 H 97 11/23/19 14:59 11/23/19 16:08 11/23/19 16:08 11/23/19 14:59 11/23/19 14:59 Oxygen Flow Rate (L/min) 2 Oxygen Delivery Method Nasal Cannula Weight: 165 lb 12.602 oz Body Mass Index (BMI) 30.3 General: Alert, Oriented x3, Cooperative HEENT: Atraumatic, PERRLA, EOMI, Normocephalic Neck: Supple, No JVD, Negative Carotid Bruits Lungs: Clear to auscultation, Normal air movement Cardiovascular: Regular rate, No murmurs Abdomen: Bowel Sounds Present, Soft, Non Tender, Obese Extremities: No edema, Capillary Refill Less than 3 Seconds Skin: No rashes, No breakdown Musculoskeletal: No Tenderness to Palpation of Joints or Extremities Neurological: Cranial nerves II-XII grossly intact Psych/Mental Status: Normal Affect, Appropriate Laboratory Results 11/23/19 15:04: WBC 11.0, RBC 4.51, Hgb 13.3, Hct 40.1, MCV 88.9, MCH 29.5, MCHC 33.2, RDW Std Deviation 41.1, RDW Coeff of Natalie 12.6, Plt Count 223, MPV 11.1, Immature Gran % (Auto) 0.500, Neut % (Auto) 79.8 H, Lymph % (Auto) 13.6 L, [place] % (Auto) 4.2, Eos % (Auto) 1.6, Baso % (Auto) 0.3, Absolute Neuts (auto) 8.8 H, Absolute Lymphs (auto) 1.49, Nucleated RBC % 0 11/23/19 15:04: Sodium 142, Potassium 3.5, Chloride 106, Carbon Dioxide 31.0, Anion Gap 5, BUN 16, Creatinine 1.01, Estim Creat Clear Calc 40.99, Est GFR (MDRD) Af Amer 70, Est GFR (MDRD) Non-Af 58 L, BUN/Creatinine Ratio 15.8, Glucose 92, Calcium 8.9, Troponin I < 0.015, Lipase 96 Assessment/Plan All Active Problems (Last Reviewed 11/15/19 @ 07:50 by Maya Klein HAND STONECUTTER, HAND STONECUTTER-C) Chest pain (Acute) Smoking greater than 30 pack years (Acute) Atypical chest pain (Acute) Angina pectoris (Resolved) Atrial fibrillation with RVR (Resolved) Chest pain (Resolved) Hypokalemia (Resolved) Preop cardiovascular exam (Resolved) Unstable angina pectoris due to coronary arteriosclerosis (Resolved) 1. Chest pain in the setting of CAD, stents placed Mar 2019, stress neg August 2019 - troponin negative. EKG with no new changes. CXR neg. Lipase neg. Cardiology consult - cardiology to see the patient in the AM. Pt may need heart cath. Continue aspirin, plavix, statin, lipitor, imdur, Cycle enzymes, repeat AM EKG. PRN nitro. 2. pAfib - currently SR rate controlled. Continue amiodarone, carvedilol, xarelto. 3. Nicotine abuse - patch if desired. pt need complete nicotine cessation 4. PAD - hx stent, continue aspirin, statin, amlodipine 5. COPD - no acute exacerbation - prn aerosols. 6. Hx AAA - ultrasound 09/03 shows 4.1x4.1 cm aneurysm. DVT ppx: xarelto. This patient was seen by Werner Prince PA-C under the supervision of Doctor Powers.
--- NOTE | 2019-11-23 17:15 | ED.RN ---
per DR Powers, pt informed that she will not have a cath tomorrow d/t being xarelto, pt must by off xarelto for 2 days. And d/t pt c/o abd bloating, pt will not be receiving bentyl while in the hospital d/t side effect of abd bloating.
--- NOTE | 2019-11-23 19:00 | EKG12_ITS ---
Test Reason : CP Blood Pressure : / mmHG Vent. Rate : 057 BPM Atrial Rate : 057 BPM P-R Int : 162 ms QRS Dur : 116 ms QT Int : 502 ms P-R-T Axes : 014 000 072 degrees QTc Int : 488 ms Sinus bradycardia Incomplete left bundle branch block Nonspecific ST and T wave abnormality Abnormal ECG Confirmed by MARTIN JEAN-BAPTISTE, GABO ([id number]), design editor MAREN GRIMES ([id number]) on 11/26/2019 1:27:19 PM Referred By: MIHAI Confirmed By:TITA SALAZAR MD
[2019-11-23] MEDS: Aspirin E.C. 81 MG Tablet PO (20:04)
[2019-11-23] MEDS: Pramipexole Di-HCl 1 MG Tablet PO (22:04)
[2019-11-23] MEDS: Atorvastatin Calcium 40 MG Tablet PO (22:04)
[2019-11-23] MEDS: Amitriptyline 25 MG Tablet 75 MG PO (22:04)
[2019-11-23] MEDS: Gabapentin 300 MG Capsule PO (22:05)
[2019-11-23] MEDS: Famotidine 20 MG Tablet PO (22:05)
[2019-11-23] MEDS: Clopidogrel Bisulfate 75 MG Tablet PO (22:05)
[2019-11-24] VITALS (14 sets, daily range): BP systolic 136–165; BP diastolic 61–85; PULSE 54–57; RESP 16–54; TEMP 36.4–36.9; O2SAT 92–97
--- NOTE | 2019-11-24 07:39 | CON.PCM_ITS ---
Reason for Consult Date of Consultation: 11/24/19 Reason for Consultation: Chest pain History of Present Illness: The patient is a 69 year old F who presented to the emergency room with chest discomfort. She has a history of paroxysmal atrial fibrillation, coronary artery disease with angioplasty and stenting of her RCA and angioplasty of her first obtuse marginal and hyperlipidemia. Her last percutaneous intervention was in 2015. In March 2019 she underwent stenting of the posterior descending as well as the right posterior lateral. She also has a history of hypertension. She also has a history of peripheral arterial disease and apparently scheduled to undergo surgery on her right superficial femoral artery. Following her stenting she had complained of shortness of breath. Echocardiogram demonstrated an EF of 50%. She also had a 9-second pause after her beta-declan dose had been increased it was reduced and this resulted in a 5-second pause this was discontinued and she was observed in the hospital for a few days with no other significant abnormalities. She presented to the emergency room yesterday with chest discomfort she had previously undergone a stress test earlier this year. Her EKG did not demonstrate any significant abnormalities. I was called to evaluate her chest pain. Past Medical History Allergies/Adverse Reactions: Allergies lisinopril Allergy (Verified 11/15/19 07:28) tongue swelling Home Medications: Ambulatory Orders Medication Instructions Recorded Amitriptyline HCl [Elavil] 75 mg PO QHS 11/25/13 Multivitamins,Therapeutic 1 tab PO DAILY 11/25/13 [Multivitamin] Pramipexole Di-HCl [Mirapex] 1 mg PO QHS 11/25/13 nitroglycerin 0.4 mg sublingual 0.4 mg SUBLINGUAL Q5M PRN #25 tab 05/20/17 tablet ascorbic acid (vitamin C) 500 mg 500 mg PO BID cap 06/15/18 capsule albuterol sulfate 90 mcg/actuation 1 - 2 puff INHALATION Q4H PRN PRN 06/16/18 aerosol inhaler #1 inhaler Acetaminophen [Tylenol] 500 mg PO Q4H PRN PRN #20 tab 01/31/19 atorvastatin 40 mg tablet 40 mg PO QHS tab 07/09/19 dicyclomine 10 mg capsule 10 mg PO 4X/DAY 07/09/19 famotidine 20 mg tablet 20 mg PO BID 07/09/19 gabapentin 300 mg capsule 300 mg PO QHS 07/09/19 Clopidogrel Bisulfate [Plavix] 75 mg PO QHS 08/30/19 Furosemide [Lasix] 40 mg PO DAILY #30 tab 08/30/19 Rivaroxaban [Xarelto] 20 mg PO QHS 08/30/19 isosorbide mononitrate 60 mg 60 mg PO DAILY tab 10/08/19 tablet,extended release 24 hr Amiodarone HCl 200 mg PO DAILY 11/23/19 Amlodipine Besylate 10 mg PO DAILY 11/23/19 Aspirin E.C. [Ecotrin] 81 mg PO DAILY@199911/23/19 Carvedilol 6.25 mg PO BID 11/23/19 Cholecalciferol (Vitamin D3) 1,000 unit PO DAILY 11/23/19 [Vitamin D3] Vitamin E 400 unit PO BID 11/23/19 Past Medical History (Chronic Problems): Chronic Problems (Last Reviewed 11/15/19 @ 07:50 by Maya Klein MANAGER COMMODITIES, MANAGER COMMODITIES-C) BELLE (obstructive sleep apnea) (Chronic) Bipap 17/13 cm of H2O Atherosclerotic heart disease of [place] coronary artery without angina pectoris (Chronic) Paroxysmal atrial fibrillation (Chronic) Acute on chronic diastolic (congestive) heart failure (Chronic) Abdominal aortic aneurysm (AAA) (Chronic) Redemonstration of infrarenal abdominal aortic aneurysm measuring up to 4.4 cm x 4.4 cm essentially similar to previous exam. 01/21/2019 Essential (primary) hypertension (Chronic) HLD (hyperlipidemia) (Chronic) Non-STEMI (non-ST elevated myocardial infarction) (Chronic 03/19/19) 04/21/2015, 03/19/2019 Peripheral vascular occlusive disease (Chronic) Bilateral SFA stents. Occluded Right SFA and angioplasty of in-stent stenosis of her left SFA. COPD (chronic obstructive pulmonary disease) (Chronic) BELLE (obstructive sleep apnea) (Chronic) Supposed to be on BiPAP Nicotine dependence (Chronic) Surgical History: noncontributory, - - LE intervention for PAD per Dr. Gar, cardiac catheterizations w/ total PCI x 7, Lower back injections, DIOMEDES, T+A, R foot surgery. 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 BENCH INSPECTOR history - *Family History Maternal Family History: Family History (Last Reviewed 11/23/19 @ 17:03 by Werner Prince PA, PA) Father Heart disease Hypertension Seizures Sister CVA (cerebral vascular accident) Hypertension Other Family history of hypertension History Items: Diabetes, High Cholesterol, Heart Disease, Hypertension, Stroke Paternal Family History: Family History (Last Reviewed 11/23/19 @ 17:03 by GABRIELLA Bullock) Father Heart disease Hypertension Seizures Sister CVA (cerebral vascular accident) Hypertension Other Family history of hypertension History Items: Diabetes, High Cholesterol, Heart Disease, Hypertension, Stroke Lives: Alone Smoking Status: Current every day smoker Tobacco Use: Cigarettes Alcohol: None Drugs: None Review of Systems - Review of Systems General: Denies: Fever, Night Sweats, Fatigue HEENT: Denies: Vision Change Cardiovascular: Denies: Chest Discomfort, Shortness of Breath, Orthopnea, PND, Peripheral Edema, Palpitations, Lightheadedness, Dizziness, Near Syncope, Syncope Respiratory: Denies: Cough, Sputum Production, Hemoptysis Gastrointestinal: Denies: Hematemesis, Hematochezia, Melena Genitourinary: Denies: Dysuria, Hematuria Skin: Denies: Rash Psychiatric: Denies: Anxiety Endocrine: Denies: Unexplained Weight Loss Subjectve: Patient seen and evaluated. Objective: Vital Signs Temp Pulse Resp BP Pulse Ox 97.5 F L 56 L 16 142/61 H 97 11/24/19 03:50 11/24/19 07:00 11/24/19 03:50 11/24/19 03:50 11/24/19 03:50 Oxygen Flow Rate (L/min) 2 Oxygen Delivery Method Nasal Cannula Weight: 162 lb 8 oz Body Mass Index (BMI) 29.7 Intake and Output for Last 24 Hours 11/22/19 11/23/19 11/24/19 23:59 23:59 23:59 Intake Total 240 / 240 240 / 240 Balance 240 / 240 240 / 240 General: Awake, Alert, Oriented x 3 HEENT: PERRL, EOMI, Sclera Non Icteric Neck: Supple, Good ROM, No Lymph Node Enlargement Lungs: Clear to auscultation Cardiovascular: Regular Rhythm, Normal S1, Normal S2, No Murmurs, No Rubs, No Gallops Vascular: No Carotid Bruits, Normal Femoral Pulses, Normal Radial Pulses, Normal Dorsalis Pedal Pulse, Normal Posterior Tibial Pulses Abdomen: Bowel Sounds Present, Soft, Non Tender, No HSM, No Organomegaly Extremities: No Cyanosis, No Clubbing, No edema Musculoskeletal: No Erythema Skin: No Rashes Lymphatic: No Lymph Node Enlargement Neurological: No Focal Motor or Sensory Deficit 11/23/19 15:04: WBC 11.0, RBC 4.51, Hgb 13.3, Hct 40.1, MCV 88.9, MCH 29.5, MCHC 33.2, Plt Count 223, MPV 11.1, Immature Gran % (Auto) 0.500, Neut % (Auto) 79.8 H, Lymph % (Auto) 13.6 L, [place] % (Auto) 4.2, Eos % (Auto) 1.6, Baso % (Auto) 0.3, Absolute Neuts (auto) 8.8 H, Nucleated RBC % 0 11/23/19 15:04: Sodium 142, Potassium 3.5, Chloride 106, Carbon Dioxide 31.0, Anion Gap 5, BUN 16, Creatinine 1.01, Est GFR (MDRD) Af Amer 70, Est GFR (MDRD) Non-Af 58 L, BUN/Creatinine Ratio 15.8, Glucose 92, Calcium 8.9, Troponin I < 0.015 11/23/19 19:15: Troponin I < 0.015 11/23/19 22:27: Troponin I < 0.015 Rhythm: EKG: Normal sinus rhythm with no acute changes ECHO: Stress Test: Cardiac Cath: PCI: CT Surgery: Holter monitor: EPS: PPM: CXR: Chest CT Scan: Assessment/Plan 1. Chest discomfort * Patient presents with recurrent chest discomfort. She has undergone cardiac catheterization angioplasty and stenting earlier this year as well as stress test which have been normal. However she says that the above discomfort is reminiscent of her previous chest discomfort. My recommendation at this time will be for us to pursue an invasive approach with a cardiac catheterization and depending on the results further recommendations will be made. * She is currently on Xarelto and this will be held for 24 hours. I have expressed this to her she understands and agrees to proceed. * 2. Cardiac dysrhythmias * Patient has not had any further cardiac dysrhythmias this admission. We will continue to monitor via telemetry monitoring. Patient can start Xarelto tomorrow. * 3. Hypertension * Good control on the current medical therapy. Will recommend to discontinue Lasix and add hydrochlorothiazide and Cardura 2 mg a day. No other major changes will be made. * * Thank you for allowing me to participate in the care of your patient. Please don't hesitate to call if any issues arise. * * Addendum: Cardiac catheterization performed demonstrated the following: Normal left main coronary artery. Left anterior descending artery with mild disease. Second diagonal vessel with ostial 60% stenosis. Small subtotally occluded left circumflex artery with left to left collaterals. Dominant large right coronary artery previously stented with patent stents noted in 50% ostial posterolateral vessel noted. Preserved left ventricular ejection fraction. Based on the above angiographic findings the patient will be continued on medical therapy.
--- NOTE | 2019-11-24 09:11 | CASEMGMT ---
According to the [facility] website, the following are in-network tertiary facilities: [facility], [place], [facility], [facility], [facility], [facility], and . Barbara FALCON CM
[2019-11-24] MEDS: Aspirin E.C. 81 MG Tablet PO (09:38)
[2019-11-24] MEDS: Famotidine 20 MG Tablet PO (09:38)
[2019-11-24] MEDS: Clopidogrel Bisulfate 75 MG Tablet PO (09:38)
--- NOTE | 2019-11-24 11:14 | NURSING ---
Patient off floor for heart cath at this time
--- NOTE | 2019-11-24 13:17 | CL.D_ITS ---
Patient Name: CURLY MORALES Study Date: 11/24/2019 Performing: Jaime Treviño MD Ht: 61.81 inches 157 cm : 1950 Wt: 163.14 lbs 74 kg Age: 69 Gender: female BSA: 1.75 PROCEDURE(S) PERFORMED [id number]/LV CLINICAL PROFILE AND INDICATIONS Indications: Worsening Angina Heart Failure: None Stress/Imaging Stress/Image Study Performed: No CAD Presentations: Unstable angina. CONCLUSIONS Patent previously paced stent with small subtotal LCX RECOMMENDATIONS Medical therapy DESCRIPTION OF PROCEDURE The patient arrived to the procedure lab. The risks and benefits of the procedure as well as a full d escription of our services here and current unavailability of surgical backup were fully explained to the patient and/or their significant other prior to the catheterization. The Timeout was completed, verifying the correct patient and procedure. The patient's procedural site was prepped and draped in the usual fashion. Local anesthetic was given subcutaneously to right radial region with Lidocaine 2% . Local anesthetic was given subcutaneously to right brachial region with Lidocaine 2%. Local anesthe tic was given subcutaneously to left radial region with Lidocaine 2%. Using a modified Seldinger tech nique, arterial access was obtained via the left radial artery, a 6Fr sheath was inserted. Left Mat nary Artery selective angiography was performed in multiple views using a 5 Fr. JL4 catheter. Right C oronary Artery selective angiography was then performed in multiple views using a 5 Fr. 3DRC (Dk) catheter. Left Ventriculography was performed in KHAN projection using a 5 Fr. Pigtail catheter. LV to AO pullback pressures were then recorded.The arterial sheath was pulled and a TR Ban d was applied for hemostasis CORONARY ANGIOGRAPHY DOMINANCE: Right Dominant LEFT HEART ASSESSMENT Left Ventricular Ejection Fraction: by LV Gram 60 % Normal LV wall motion Normal Left Ventricular systolic function LEFT MAIN: Mild calcification, No significant disease noted LEFT ANTERIOR DESCENDING ARTERY: Mild luminal irregularities DIAGONAL 2: Ostial - 60 % Stenosis CIRCUMFLEX ARTERY: PROX CIRC: subtotatly occluded RIGHT CORONARY ARTERY: MID RCA: Previously placed stent is patent DISTAL RCA: Previously placed stent is patent RT PLV: 60 % Stenosis COLLATERAL FLOW: Collateral flow from Left to Left COMPLICATIONS No Complications PROCEDURE MEDICATIONS Fentanyl 50 mcg IV Versed 1 mg IV Versed 1 mg IV Oxygen: 2 L/min via nasal cannula Heparin diluted in 23cc Heparinized saline. Patient given 10cc IA of this solution. 11/24/2019 12:42:2 7 Verapamil 2.5mg, Ntg 100mcgs, 2000 units of Heparin diluted in 23cc Heparinized saline. Patient give n 10cc IA of this solution. 11/24/2019 12:42:27 SUMMARY OF HEMODYNAMIC DATA Time AIR REST ECG 11:29:43 AO 155/59 (93) SA 12:47:48 LV 166/14, 19 13:01:27 LV 165/13, 17 13:01:33 LV 158/14, 20 13:02:26 LV 159/12, 19 13:02:33 LVp 152/49, 55 13:02:39 AOp 161/57 (94) 13:02:44 Signed By Jaime Treviño MD On 11/24/2019 13:17:06 Jaime Treviño MD
[2019-11-24] MEDS: Acetaminophen 500 MG Tablet PO (13:44)
[2019-11-24] MEDS: 0.9% Normal Saline 1,000 ML 75 ML IV (13:45)
--- NOTE | 2019-11-24 13:45 | PN_ITS ---
<Werner Prince - Last Filed: 11/24/19 13:45> Patient Problems: Active and Suspected Problems (Last Reviewed 11/15/19 @ 07:50 by Maya Klein MOTOR TRANSPORT INSPECTOR, MOTOR TRANSPORT INSPECTOR-C) Chest pain (Acute) Reason for Visit: chest pain Subjective: This morning the patient still complains of chest pressure in the midsternal region, epigastric region, and into the neck. No shortness of breath, lightheadedness, or dizziness. Patient seen and examined prior to heart catheterization. Vitals/I&O's: Vital Signs Temp Pulse Resp BP Pulse Ox 98.1 F 54 L 18 151/75 H 93 11/24/19 13:30 11/24/19 13:30 11/24/19 13:30 11/24/19 13:30 11/24/19 13:30 Oxygen Flow Rate (L/min) 2 Oxygen Delivery Method Room Air Weight: 162 lb 8 oz Body Mass Index (BMI) 29.7 Intake and Output for Last 24 Hours 11/22/19 11/23/19 11/24/19 23:59 23:59 23:59 Intake Total 240 / 240 300 / 300 Balance 240 / 240 300 / 300 General: Alert, Oriented x3, Cooperative HEENT: Atraumatic, PERRLA, EOMI, Normocephalic Neck: Supple, No JVD, Negative Carotid Bruits Lungs: Clear to auscultation, Normal air movement Cardiovascular: Regular rate, No murmurs Abdomen: Bowel Sounds Present, Soft, Non Tender Extremities: No edema, Capillary Refill Less than 3 Seconds Skin: No rashes, No breakdown Musculoskeletal: No Tenderness to Palpation of Joints or Extremities Neurological: Cranial nerves II-XII grossly intact Psych/Mental Status: Normal Affect, Appropriate, Alert and oriented to time, place, person, mood and affect Laboratory Results 11/23/19 15:04: WBC 11.0, RBC 4.51, Hgb 13.3, Hct 40.1, MCV 88.9, MCH 29.5, MCHC 33.2, RDW Std Deviation 41.1, RDW Coeff of Natalie 12.6, Plt Count 223, MPV 11.1, Immature Gran % (Auto) 0.500, Neut % (Auto) 79.8 H, Lymph % (Auto) 13.6 L, Rush % (Auto) 4.2, Eos % (Auto) 1.6, Baso % (Auto) 0.3, Absolute Neuts (auto) 8.8 H, Absolute Lymphs (auto) 1.49, Nucleated RBC % 0 11/23/19 15:04: Sodium 142, Potassium 3.5, Chloride 106, Carbon Dioxide 31.0, Anion Gap 5, BUN 16, Creatinine 1.01, Estim Creat Clear Calc 40.99, Est GFR (MDRD) Af Amer 70, Est GFR (MDRD) Non-Af 58 L, BUN/Creatinine Ratio 15.8, Glucose 92, Calcium 8.9, Troponin I < 0.015, Lipase 96 11/23/19 19:15: Troponin I < 0.015 11/23/19 22:27: Troponin I < 0.015 Current Medications Acetaminophen (Tylenol) 500 mg PO Q4H PRN PRN PRN Reason: Pain Score 1-10 Last Admin: 11/24/19 13:44 Dose: 500 mg Documented by: Amiodarone HCl (Cordarone) 200 mg PO DAILY [facility] Last Admin: 11/24/19 10:24 Dose: Not Given Documented by: Amitriptyline HCl (Elavil) 75 mg PO QHS [facility] Last Admin: 11/23/19 22:04 Dose: 75 mg Documented by: Amlodipine Besylate (Norvasc) 10 mg PO DAILY [facility] Last Admin: 11/24/19 10:23 Dose: Not Given Documented by: Aspirin (Ecotrin) 81 mg PO DAILY@1999 [facility] Last Admin: 11/24/19 09:38 Dose: 81 mg Documented by: Atorvastatin Calcium (Lipitor) 40 mg PO QHS [facility] Last Admin: 11/23/19 22:04 Dose: 40 mg Documented by: Carvedilol (Coreg) 6.25 mg PO BID [facility] Last Admin: 11/24/19 10:23 Dose: Not Given Documented by: Clopidogrel Bisulfate (Plavix) 75 mg PO QHS [facility] Last Admin: 11/24/19 09:38 Dose: 75 mg Documented by: Doxazosin Mesylate (Cardura) 2 mg PO QHS [facility] Famotidine (Pepcid) 20 mg PO BID [facility] Last Admin: 11/24/19 09:38 Dose: 20 mg Documented by: Gabapentin (Neurontin) 300 mg PO QHS [facility] Last Admin: 11/23/19 22:05 Dose: 300 mg Documented by: Hydrochlorothiazide (Hctz) 25 mg PO DAILY [facility] Sodium Chloride () 1,000 mls @ 0 mls/hr IV .Q0M [facility] Sodium Chloride () 1,000 mls @ 75 mls/hr IV .[id number] [facility] Last Admin: 11/24/19 13:45 Dose: 75 mls/hr Documented by: Isosorbide Mononitrate (Imdur) 60 mg PO DAILY [facility] Last Admin: 11/24/19 10:23 Dose: Not Given Documented by: Morphine Sulfate () 4 mg IV Q3H PRN PRN PRN Reason: Pain Score 6-10/10 Ondansetron HCl (Zofran) 4 mg IV Q8H PRN PRN PRN Reason: NAUSEA/VOMITING Pramipexole Dihydrochloride (Mirapex) 1 mg PO QHS [facility] Last Admin: 11/23/19 22:04 Dose: 1 mg Documented by: Sodium Chloride () 10 - 40 ml IV UD PRN PRN Reason: SALINE FLUSH STROKE Vital Signs/Narrative: Vital Signs Temp Pulse Resp BP Pulse Ox 11/24/19 13:30 98.1 F 54 L 18 151/75 H 93 Medical Necessity - Tobacco Use Smoking Status: Current every day smoker Tobacco Use: Cigarettes Assessment/Plan All Active Problems (Last Reviewed 11/15/19 @ 07:50 by Maya Klein MOTOR TRANSPORT INSPECTOR, MOTOR TRANSPORT INSPECTOR- C) Chest pain (Acute) Smoking greater than 30 pack years (Acute) Atypical chest pain (Acute) Angina pectoris (Resolved) Atrial fibrillation with RVR (Resolved) Chest pain (Resolved) Hypokalemia (Resolved) Preop cardiovascular exam (Resolved) Unstable angina pectoris due to coronary arteriosclerosis (Resolved) 1. Chest pain in the setting of CAD, stents placed Mar 2019, stress neg August 2019 - troponin negative. EKG with no new changes. CXR neg. Lipase neg. cardiology took the patient for heart catheterization today, no intervention was performed, medical therapy was recommended. 2. pAfib - currently SR rate controlled. Continue amiodarone, carvedilol, xarelto. 3. Nicotine abuse - patch if desired. pt need complete nicotine cessation 4. PAD - hx stent, continue aspirin, statin, amlodipine 5. COPD - no acute exacerbation - prn aerosols. 6. Hx AAA - ultrasound 6/20 shows 4.1x4.1 cm aneurysm. DVT ppx: xarelto. This patient was seen by Werner Prince PA-C under the supervision of Doctor Danielle <Anjana Santos - Last Filed: 11/24/19 16:11> Vitals/I&O's: Vital Signs Temp Pulse Resp BP Pulse Ox 98.0 F 56 L 18 164/64 H 94 11/24/19 15:15 11/24/19 16:05 11/24/19 16:05 11/24/19 16:05 11/24/19 16:05 Oxygen Flow Rate (L/min) 2 Oxygen Delivery Method Room Air Weight: 162 lb 8 oz Body Mass Index (BMI) 29.7 Intake and Output for Last 24 Hours 11/22/19 11/23/19 11/24/19 23:59 23:59 23:59 Intake Total 240 / 240 300 / 300 Balance 240 / 240 300 / 300 Laboratory Results 11/23/19 19:15: Troponin I < 0.015 11/23/19 22:27: Troponin I < 0.015 Current Medications Acetaminophen (Tylenol) 500 mg PO Q4H PRN PRN PRN Reason: Pain Score 1-10/10 Last Admin: 11/24/19 13:44 Dose: 500 mg Documented by: Amiodarone HCl (Cordarone) 200 mg PO DAILY [facility] Last Admin: 11/24/19 10:24 Dose: Not Given Documented by: Amitriptyline HCl (Elavil) 75 mg PO QHS [facility] Last Admin: 11/23/19 22:04 Dose: 75 mg Documented by: Amlodipine Besylate (Norvasc) 10 mg PO DAILY [facility] Last Admin: 11/24/19 10:23 Dose: Not Given Documented by: Aspirin (Ecotrin) 81 mg PO DAILY@1999 [facility] Last Admin: 11/24/19 09:38 Dose: 81 mg Documented by: Atorvastatin Calcium (Lipitor) 40 mg PO QHS [facility] Last Admin: 11/23/19 22:04 Dose: 40 mg Documented by: Carvedilol (Coreg) 6.25 mg PO BID [facility] Last Admin: 11/24/19 10:23 Dose: Not Given Documented by: Clopidogrel Bisulfate (Plavix) 75 mg PO QHS [facility] Last Admin: 11/24/19 09:38 Dose: 75 mg Documented by: Doxazosin Mesylate (Cardura) 2 mg PO QHS [facility] Famotidine (Pepcid) 20 mg PO BID [facility] Last Admin: 11/24/19 09:38 Dose: 20 mg Documented by: Gabapentin (Neurontin) 300 mg PO QHS [facility] Last Admin: 11/23/19 22:05 Dose: 300 mg Documented by: Hydrochlorothiazide (Hctz) 25 mg PO DAILY [facility] Sodium Chloride () 1,000 mls @ 0 mls/hr IV .Q0M [facility] Sodium Chloride () 1,000 mls @ 75 mls/hr IV .[id number] [facility] Last Admin: 11/24/19 13:45 Dose: 75 mls/hr Documented by: Isosorbide Mononitrate (Imdur) 60 mg PO DAILY [facility] Last Admin: 11/24/19 10:23 Dose: Not Given Documented by: Morphine Sulfate () 4 mg IV Q3H PRN PRN PRN Reason: Pain Score 6-10/10 Ondansetron HCl (Zofran) 4 mg IV Q8H PRN PRN PRN Reason: NAUSEA/VOMITING Pramipexole Dihydrochloride (Mirapex) 1 mg PO QHS [facility] Last Admin: 11/23/19 22:04 Dose: 1 mg Documented by: Sodium Chloride () 10 - 40 ml IV UD PRN PRN Reason: SALINE FLUSH STROKE Vital Signs/Narrative: Vital Signs Temp Pulse Resp BP Pulse Ox 11/24/19 16:05 56 L 18 164/64 H 94 11/24/19 15:15 98.0 F 56 L 18 150/75 H 96 11/24/19 15:00 56 L 11/24/19 14:48 93 11/24/19 14:45 57 L 18 144/66 H 93 11/24/19 14:15 56 L 165/85 H 92 11/24/19 14:00 55 L 54 H 136/78 H 93 11/24/19 13:45 54 L 18 145/62 H 92 11/24/19 13:30 98.1 F 54 L 18 151/75 H 93 Assessment/Plan Patient seen by Werner Prince PA-C under my supervision Patient seen and examined. She was admitted with a complaint of chest pain. She has a significant cardiac history and so she is going for cardiac cath today. She has no complaints this morning. Chest pain has resolved. Review systems otherwise negative. O/E: Vital Signs Temp Pulse Resp BP Pulse Ox 98.0 F 56 L 18 164/64 H 94 11/24/19 15:15 11/24/19 16:05 11/24/19 16:05 11/24/19 16:05 11/24/19 16:05 General: Alert, Oriented x3, Cooperative HEENT: Atraumatic, PERRLA, EOMI, Normocephalic Neck: Supple, No JVD, Negative Carotid Bruits Lungs: Clear to auscultation, Normal air movement Cardiovascular: Regular rate, No murmurs Abdomen: Bowel Sounds Present, Soft, Non Tender Extremities: No edema, Capillary Refill Less than 3 Seconds Skin: No rashes, No breakdown Musculoskeletal: No Tenderness to Palpation of Joints or Extremities Neurological: Cranial nerves II-XII grossly intact Psych/Mental Status: Normal Affect, Appropriate, Alert and oriented to time, place, person, mood and affect Plan is for cardiac cath today. Note, cardiac cath was done which showed patent stents. Medical management therefore located. Continue aspirin and statin. Lasix was stopped and she was started on hydrochlorothiazide. Plan is for discharge home today. Patient also counseled to quit smoking. Rest as per Werner Prince PA-C's notes which I have reviewed and endorsed. OBSV E&M: [id number] Subsequent observation care L2
--- NOTE | 2019-11-24 14:14 | PCM.DC ---
- Discharge Diagnoses Current Active Problems: Current Active and Chronic Problems (Last Reviewed 11/15/19 @ 07:50 by Maya Klein DIESEL POWER SHOVEL OPERATOR, DIESEL POWER SHOVEL OPERATOR-C) Chest pain (Acute) You will use the following diet at home:: Cardiac Your food should be the consistency of: Regular Your liquids should be the consistency of: Regular/Thin Discharge Activity: Return to Normal Activity Call your doctor if you observe: Shortness of breath, Chest pain Allergies/Adverse Reactions: Allergies lisinopril Allergy (Verified 11/15/19 07:28) tongue swelling Medications to take at Discharge Amitriptyline HCl [Elavil] 75 mg PO QHS 11/25/13 Multivitamins,Therapeutic [Multivitamin] 1 tab PO DAILY 11/25/13 Pramipexole Di-HCl [Mirapex] 1 mg PO QHS 11/25/13 nitroglycerin 0.4 mg sublingual tablet 0.4 mg SUBLINGUAL Q5M PRN #25 tab 05/20/17 ascorbic acid (vitamin C) 500 mg capsule 500 mg PO BID cap 06/15/18 albuterol sulfate 90 mcg/actuation aerosol inhaler 1 - 2 puff INHALATION Q4H PRN PRN #1 inhaler 06/16/18 Acetaminophen [Tylenol] 500 mg PO Q4H PRN PRN #20 tab 01/31/19 atorvastatin 40 mg tablet 40 mg PO QHS tab 07/09/19 dicyclomine 10 mg capsule 10 mg PO 4X/DAY 07/09/19 famotidine 20 mg tablet 20 mg PO BID 07/09/19 gabapentin 300 mg capsule 300 mg PO QHS 07/09/19 Clopidogrel Bisulfate [Plavix] 75 mg PO QHS 08/30/19 Rivaroxaban [Xarelto] 20 mg PO QHS 08/30/19 isosorbide mononitrate 60 mg tablet,extended release 24 hr 60 mg PO DAILY tab 10/08/19 Amiodarone HCl 200 mg PO DAILY 11/23/19 Amlodipine Besylate 10 mg PO DAILY 11/23/19 Aspirin E.C. [Ecotrin] 81 mg PO DAILY@199911/23/19 Carvedilol 6.25 mg PO BID 11/23/19 Cholecalciferol (Vitamin D3) [Vitamin D3] 1,000 unit PO DAILY 11/23/19 Vitamin E 400 unit PO BID 11/23/19 Doxazosin Mesylate [Cardura] 2 mg PO QHS #30 tab 11/24/19 Hydrochlorothiazide [Hctz] 25 mg PO DAILY #30 tab 11/24/19 The following prescriptions were given: Doxazosin Mesylate [Cardura] 2 mg PO QHS #30 tab Transmission Status: Pending to [facility] Hydrochlorothiazide [Hctz] 25 mg PO DAILY #30 tab Transmission Status: Pending to [facility] Primary Care Physician: Feng Hayes MD [Primary Care Provider] - Please follow up with your Primary Care Physician in: 1-2 weeks Test Results: Test results from this visit will be discussed in further detail at your follow-up appointment, if applicable. Please Follow Up With: Evelyn Collier PA When: as directed Proposed Discharge Date: 11/24/19
--- NOTE | 2019-11-24 14:15 | DS.PCM_ITS ---
<Werner Prince - Last Filed: 11/24/19 14:15> Discharge Date and Diagnosis - Problem List Patient Problems: Active and Suspected Problems (Last Reviewed 11/15/19 @ 07:50 by Maya Klein FLOATING OPERATOR, FLOATING OPERATOR-C) Chest pain (Acute) Date of Admission: 11/23/19 Date of Discharge: 11/24/19 - Primary Discharge Diagnosis Acute Problems: Active Problems (Last Reviewed 11/15/19 @ 07:50 by Maya Klein FLOATING OPERATOR, FLOATING OPERATOR-C) Chest pain 2/2 CAD Ongoing nicotine abuse - Secondary Discharge Diagnosis Chronic Problems: Chronic Problems (Last Reviewed 11/15/19 @ 07:50 by Maya Klein FLOATING OPERATOR, FLOATING OPERATOR-C) BELLE (obstructive sleep apnea) (Chronic) Bipap 17/13 cm of H2O Atherosclerotic heart disease of [place] coronary artery without angina pectoris (Chronic) Paroxysmal atrial fibrillation (Chronic) Acute on chronic diastolic (congestive) heart failure (Chronic) Abdominal aortic aneurysm (AAA) (Chronic) Redemonstration of infrarenal abdominal aortic aneurysm measuring up to 4.4 cm x 4.4 cm essentially similar to previous exam. 01/21/2019 Essential (primary) hypertension (Chronic) HLD (hyperlipidemia) (Chronic) Non-STEMI (non-ST elevated myocardial infarction) (Chronic 03/19/19) 04/21/2015, 03/19/2019 Peripheral vascular occlusive disease (Chronic) Bilateral SFA stents. Occluded Right SFA and angioplasty of in-stent stenosis of her left SFA. COPD (chronic obstructive pulmonary disease) (Chronic) BELLE (obstructive sleep apnea) (Chronic) Supposed to be on BiPAP Nicotine dependence (Chronic) Hospital Course and Treatment Imaging Results: Diagnostics: RAD/Chest 1 View (Portable) IMPRESSION: No acute pulmonary process Left Heart Cath: CONCLUSIONS Patent previously paced stent with small subtotal LCX RECOMMENDATIONS Medical therapy Consults: Cardiology - [facility] Operations: None Procedures: Cardiac catheterization Summary of Care Provided: Hospital course: The patient is a 69 year old F past medical history as above notably coronary artery disease with multiple stents, most recently earlier this year, followed by a negative stress test in August of this year, with ongoing nicotine abuse who presented to the emergency room with chest pain. This was described as a pain in the epigastric area, substernal chest, and radiating into the neck and jaw bilaterally. In the ER she had a negative EKG, negative troponin, negative chest x-ray. Given her significant cardiac history cardiology was consulted who recommended a heart cath the following day. Patient was admitted on PCU and placed on telemetry with no events overnight. Troponin was negative x3. She was taken for heart cath the following day which demonstrated patent previously placed stent with a small subtotal left circumflex. Medical therapy was advised. At this time cardiology recommended stopping Lasix, starting hydrochlorothiazide, and starting Cardura. The patient was discharged home in stable condition. She will need follow-up with her PCP in 1 to 2 weeks, and follow-up with cardiology as directed. The patient still smokes at least 7 cigarettes/day, I discussed with her the importance of quitting smoking completely given her cardiac health. She stated that she wanted to attempt to quit cold turkey on her own without anyone else's help. This patient was seen by Werner Prince PA-C under the supervision of Doctor Danielle. [] Patient Problems: Active and Suspected Problems (Last Reviewed 11/15/19 @ 07:50 by Maya Klein FLOATING OPERATOR, FLOATING OPERATOR-C) Chest pain (Acute) - Physical Exam Vitals/I&O's: Vital Signs Temp Pulse Resp BP Pulse Ox 98.1 F 55 L 54 H 136/78 H 93 11/24/19 13:30 11/24/19 14:00 11/24/19 14:00 11/24/19 14:00 11/24/19 14:00 Oxygen Flow Rate (L/min) 2 Oxygen Delivery Method Room Air Weight: 162 lb 8 oz Body Mass Index (BMI) 29.7 Intake and Output for Last 24 Hours 11/22/19 11/23/19 11/24/19 23:59 23:59 23:59 Intake Total 240 / 240 300 / 300 Balance 240 / 240 300 / 300 General: Alert, Oriented x3, Cooperative HEENT: Atraumatic, PERRLA, EOMI, Normocephalic Neck: Supple, No JVD, Negative Carotid Bruits Lungs: Clear to auscultation, Normal air movement Cardiovascular: Regular rate, No murmurs Abdomen: Bowel Sounds Present, Soft, Non Tender Extremities: No edema, Capillary Refill Less than 3 Seconds Skin: No rashes, No breakdown Musculoskeletal: No Tenderness to Palpation of Joints or Extremities Neurological: Cranial nerves II-XII grossly intact Psych/Mental Status: Normal Affect, Appropriate, Alert and oriented to time, place, person, mood and affect Laboratory Results 11/23/19 15:04: WBC 11.0, RBC 4.51, Hgb 13.3, Hct 40.1, MCV 88.9, MCH 29.5, MCHC 33.2, RDW Std Deviation 41.1, RDW Coeff of Natalie 12.6, Plt Count 223, MPV 11.1, Immature Gran % (Auto) 0.500, Neut % (Auto) 79.8 H, Lymph % (Auto) 13.6 L, Loup % (Auto) 4.2, Eos % (Auto) 1.6, Baso % (Auto) 0.3, Absolute Neuts (auto) 8.8 H, Absolute Lymphs (auto) 1.49, Nucleated RBC % 0 11/23/19 15:04: Sodium 142, Potassium 3.5, Chloride 106, Carbon Dioxide 31.0, Anion Gap 5, BUN 16, Creatinine 1.01, Estim Creat Clear Calc 40.99, Est GFR (MDRD) Af Amer 70, Est GFR (MDRD) Non-Af 58 L, BUN/Creatinine Ratio 15.8, Glucose 92, Calcium 8.9, Troponin I < 0.015, Lipase 96 11/23/19 19:15: Troponin I < 0.015 11/23/19 22:27: Troponin I < 0.015 Current Medications Acetaminophen (Tylenol) 500 mg PO Q4H PRN PRN PRN Reason: Pain Score 1-10/10 Last Admin: 11/24/19 13:44 Dose: 500 mg Documented by: Amiodarone HCl (Cordarone) 200 mg PO DAILY [facility] Last Admin: 11/24/19 10:24 Dose: Not Given Documented by: Amitriptyline HCl (Elavil) 75 mg PO QHS [facility] Last Admin: 11/23/19 22:04 Dose: 75 mg Documented by: Amlodipine Besylate (Norvasc) 10 mg PO DAILY [facility] Last Admin: 11/24/19 10:23 Dose: Not Given Documented by: Aspirin (Ecotrin) 81 mg PO DAILY@1999 [facility] Last Admin: 11/24/19 09:38 Dose: 81 mg Documented by: Atorvastatin Calcium (Lipitor) 40 mg PO QHS [facility] Last Admin: 09/08/20 22:04 Dose: 40 mg Documented by: Carvedilol (Coreg) 6.25 mg PO BID [facility] Last Admin: 11/24/19 10:23 Dose: Not Given Documented by: Clopidogrel Bisulfate (Plavix) 75 mg PO QHS [facility] Last Admin: 11/24/19 09:38 Dose: 75 mg Documented by: Doxazosin Mesylate (Cardura) 2 mg PO QHS [facility] Famotidine (Pepcid) 20 mg PO BID [facility] Last Admin: 11/24/19 09:38 Dose: 20 mg Documented by: Gabapentin (Neurontin) 300 mg PO QHS [facility] Last Admin: 11/23/19 22:05 Dose: 300 mg Documented by: Hydrochlorothiazide (Hctz) 25 mg PO DAILY [facility] Sodium Chloride () 1,000 mls @ 0 mls/hr IV .Q0M [facility] Sodium Chloride () 1,000 mls @ 75 mls/hr IV .[id number] [facility] Last Admin: 11/24/19 13:45 Dose: 75 mls/hr Documented by: Isosorbide Mononitrate (Imdur) 60 mg PO DAILY [facility] Last Admin: 11/24/19 10:23 Dose: Not Given Documented by: Morphine Sulfate () 4 mg IV Q3H PRN PRN PRN Reason: Pain Score 6-10/10 Ondansetron HCl (Zofran) 4 mg IV Q8H PRN PRN PRN Reason: NAUSEA/VOMITING Pramipexole Dihydrochloride (Mirapex) 1 mg PO QHS [facility] Last Admin: 11/23/19 22:04 Dose: 1 mg Documented by: Sodium Chloride () 10 - 40 ml IV UD PRN PRN Reason: SALINE FLUSH Discharge Diet: Low fat/ Low Cholesterol, 2000 mg Sodium Diet Discharge Activity: Return to Normal Activity Call your doctor if you observe: Shortness of breath, Chest pain Home Medications: Medications to take at Discharge Amitriptyline HCl [Elavil] 75 mg PO QHS 11/25/13 Multivitamins,Therapeutic [Multivitamin] 1 tab PO DAILY 11/25/13 Pramipexole Di-HCl [Mirapex] 1 mg PO QHS 11/25/13 nitroglycerin 0.4 mg sublingual tablet 0.4 mg SUBLINGUAL Q5M PRN #25 tab 05/20/17 ascorbic acid (vitamin C) 500 mg capsule 500 mg PO BID cap 06/15/18 albuterol sulfate 90 mcg/actuation aerosol inhaler 1 - 2 puff INHALATION Q4H PRN PRN #1 inhaler 06/16/18 Acetaminophen [Tylenol] 500 mg PO Q4H PRN PRN #20 tab 01/31/19 atorvastatin 40 mg tablet 40 mg PO QHS tab 07/09/19 dicyclomine 10 mg capsule 10 mg PO 4X/DAY 07/09/19 famotidine 20 mg tablet 20 mg PO BID 07/09/19 gabapentin 300 mg capsule 300 mg PO QHS 07/09/19 Clopidogrel Bisulfate [Plavix] 75 mg PO QHS 08/30/19 Rivaroxaban [Xarelto] 20 mg PO QHS 08/30/19 isosorbide mononitrate 60 mg tablet,extended release 24 hr 60 mg PO DAILY tab 10/08/19 Amiodarone HCl 200 mg PO DAILY 11/23/19 Amlodipine Besylate 10 mg PO DAILY 11/23/19 Aspirin E.C. [Ecotrin] 81 mg PO DAILY@199911/23/19 Carvedilol 6.25 mg PO BID 11/23/19 Cholecalciferol (Vitamin D3) [Vitamin D3] 1,000 unit PO DAILY 11/23/19 Vitamin E 400 unit PO BID 11/23/19 Doxazosin Mesylate [Cardura] 2 mg PO QHS #30 tab 11/24/19 Hydrochlorothiazide [Hctz] 25 mg PO DAILY #30 tab 11/24/19 Following Prescriptions Were Given to Patient: Doxazosin Mesylate [Cardura] 2 mg PO QHS #30 tab Transmission Status: Received by [facility] Hydrochlorothiazide [Hctz] 25 mg PO DAILY #30 tab Transmission Status: Received by [facility] Primary Care Physician: Feng Hayes MD [Primary Care Provider] - Please follow up with your Primary Care Physician in: 1-2 weeks Please Follow Up With: Evelyn Collier PA When: as directed Disposition: Home Minutes spent on discharge:: 35 Patient Condition:: Stable Medical Necessity - Tobacco Use Smoking Status: Current every day smoker Tobacco Use: Cigarettes Meaningful Use Info Meaningful Use Diagnoses (Choose all that apply): None applicable <Anjana Santos - Last Filed: 11/24/19 14:42> Discharge Date and Diagnosis - Primary Discharge Diagnosis Acute Problems: Active Problems (Last Reviewed 11/15/19 @ 07:50 by Maya Klein FLOATING OPERATOR, FLOATING OPERATOR-C) Chest pain (Acute) - Secondary Discharge Diagnosis Chronic Problems: Chronic Problems (Last Reviewed 11/15/19 @ 07:50 by Maya Klein FLOATING OPERATOR, FLOATING OPERATOR-C) BELLE (obstructive sleep apnea) (Chronic) Bipap 17/13 cm of H2O Atherosclerotic heart disease of [place] coronary artery without angina pectoris (Chronic) Paroxysmal atrial fibrillation (Chronic) Acute on chronic diastolic (congestive) heart failure (Chronic) Abdominal aortic aneurysm (AAA) (Chronic) Redemonstration of infrarenal abdominal aortic aneurysm measuring up to 4.4 cm x 4.4 cm essentially similar to previous exam. 01/21/2019 Essential (primary) hypertension (Chronic) HLD (hyperlipidemia) (Chronic) Non-STEMI (non-ST elevated myocardial infarction) (Chronic 03/19/19) 04/21/2015, 03/19/2019 Peripheral vascular occlusive disease (Chronic) Bilateral SFA stents. Occluded Right SFA and angioplasty of in-stent stenosis of her left SFA. COPD (chronic obstructive pulmonary disease) (Chronic) BELLE (obstructive sleep apnea) (Chronic) Supposed to be on BiPAP Nicotine dependence (Chronic) Hospital Course and Treatment Summary of Care Provided: Patient seen by Werner Prince PA-C under my supervision. The patient is a 69 year old F with a past medical history significant for CAD with multiple stents was admitted through the ED with a complaint of chest pain and epigastric pain which radiated to the neck and jaw with associated numbness and tingling. EKG done showed no acute ST changes. Troponins x3 were negative and chest x-ray showed no acute cardiopulmonary process. Given her extensive cardiac history, cardiology was consulted and patient had a cardiac cath on 11/24/2019 which showed a patent previously placed stent with small subtotal left circumflex artery. Medical management was advised and cardiology recommended stopping Lasix and starting patient on hydrochlorothiazide. She was also started on Cardura. Patient was counseled strongly to quit smoking but she still smokes at least 7 cigarettes a day. Patient remained stable and was discharged home on 11/24/2019. She is to follow-up with her primary care doctor and follow-up with cardiology. Patient seen and examined prior to discharge. Symptoms had resolved. She denied any chest pain, shortness of breath, palpitations, dizziness, nausea vomiting or diarrhea. Review of signs otherwise negative. Labs and vitals reviewed. Home medication reviewed and reconciled. O/E: Vital Signs Temp Pulse Resp BP Pulse Ox 98.1 F 56 L 54 H 165/85 H 92 11/24/19 13:30 11/24/19 14:15 11/24/19 14:00 11/24/19 14:15 11/24/19 14:15 [] General: Alert, Oriented x3, Cooperative HEENT: Atraumatic, PERRLA, EOMI, Normocephalic Neck: Supple, No JVD, Negative Carotid Bruits Lungs: Clear to auscultation, Normal air movement Cardiovascular: Regular rate, No murmurs Abdomen: Bowel Sounds Present, Soft, Non Tender Extremities: No edema, Capillary Refill Less than 3 Seconds Skin: No rashes, No breakdown Musculoskeletal: No Tenderness to Palpation of Joints or Extremities Neurological: Cranial nerves II-XII grossly intact Psych/Mental Status: Normal Affect, Appropriate, Alert and oriented to time, place, person, mood and affect Plan is for discharge home today. Rest as per Werner Prince PA-C's notes were reviewed and endorsed. - Physical Exam Vitals/I&O's: Vital Signs Temp Pulse Resp BP Pulse Ox 98.1 F 56 L 54 H 165/85 H 92 11/24/19 13:30 11/24/19 14:15 11/24/19 14:00 11/24/19 14:15 11/24/19 14:15 Oxygen Flow Rate (L/min) 2 Oxygen Delivery Method Room Air Weight: 162 lb 8 oz Body Mass Index (BMI) 29.7 Intake and Output for Last 24 Hours 11/22/19 11/23/19 11/24/19 23:59 23:59 23:59 Intake Total 240 / 240 300 / 300 Balance 240 / 240 300 / 300 Laboratory Results 11/23/19 15:04: WBC 11.0, RBC 4.51, Hgb 13.3, Hct 40.1, MCV 88.9, MCH 29.5, MCHC 33.2, RDW Std Deviation 41.1, RDW Coeff of Natalie 12.6, Plt Count 223, MPV 11.1, Immature Gran % (Auto) 0.500, Neut % (Auto) 79.8 H, Lymph % (Auto) 13.6 L, Loup % (Auto) 4.2, Eos % (Auto) 1.6, Baso % (Auto) 0.3, Absolute Neuts (auto) 8.8 H, Absolute Lymphs (auto) 1.49, Nucleated RBC % 0 11/23/19 15:04: Sodium 142, Potassium 3.5, Chloride 106, Carbon Dioxide 31.0, Anion Gap 5, BUN 16, Creatinine 1.01, Estim Creat Clear Calc 40.99, Est GFR (MDRD) Af Amer 70, Est GFR (MDRD) Non-Af 58 L, BUN/Creatinine Ratio 15.8, Glucose 92, Calcium 8.9, Troponin I < 0.015, Lipase 96 11/23/19 19:15: Troponin I < 0.015 11/23/19 22:27: Troponin I < 0.015 Current Medications Acetaminophen (Tylenol) 500 mg PO Q4H PRN PRN PRN Reason: Pain Score 1-10/10 Last Admin: 11/24/19 13:44 Dose: 500 mg Documented by: Amiodarone HCl (Cordarone) 200 mg PO DAILY [facility] Last Admin: 11/24/19 10:24 Dose: Not Given Documented by: Amitriptyline HCl (Elavil) 75 mg PO QHS [facility] Last Admin: 11/23/19 22:04 Dose: 75 mg Documented by: Amlodipine Besylate (Norvasc) 10 mg PO DAILY [facility] Last Admin: 11/24/19 10:23 Dose: Not Given Documented by: Aspirin (Ecotrin) 81 mg PO DAILY@1999 [facility] Last Admin: 11/24/19 09:38 Dose: 81 mg Documented by: Atorvastatin Calcium (Lipitor) 40 mg PO QHS [facility] Last Admin: 11/23/19 22:04 Dose: 40 mg Documented by: Carvedilol (Coreg) 6.25 mg PO BID [facility] Last Admin: 11/24/19 10:23 Dose: Not Given Documented by: Clopidogrel Bisulfate (Plavix) 75 mg PO QHS [facility] Last Admin: 11/24/19 09:38 Dose: 75 mg Documented by: Doxazosin Mesylate (Cardura) 2 mg PO QHS [facility] Famotidine (Pepcid) 20 mg PO BID [facility] Last Admin: 11/24/19 09:38 Dose: 20 mg Documented by: Gabapentin (Neurontin) 300 mg PO QHS [facility] Last Admin: 11/23/19 22:05 Dose: 300 mg Documented by: Hydrochlorothiazide (Hctz) 25 mg PO DAILY [facility] Sodium Chloride () 1,000 mls @ 0 mls/hr IV .Q0M [facility] Sodium Chloride () 1,000 mls @ 75 mls/hr IV .[id number] [facility] Last Admin: 11/24/19 13:45 Dose: 75 mls/hr Documented by: Isosorbide Mononitrate (Imdur) 60 mg PO DAILY [facility] Last Admin: 11/24/19 10:23 Dose: Not Given Documented by: Morphine Sulfate () 4 mg IV Q3H PRN PRN PRN Reason: Pain Score 6-10/10 Ondansetron HCl (Zofran) 4 mg IV Q8H PRN PRN PRN Reason: NAUSEA/VOMITING Pramipexole Dihydrochloride (Mirapex) 1 mg PO QHS [facility] Last Admin: 11/23/19 22:04 Dose: 1 mg Documented by: Sodium Chloride () 10 - 40 ml IV UD PRN PRN Reason: SALINE FLUSH OBSV E&M: [id number] Observation care discharge
--- NOTE | 2019-11-24 15:53 | CHAPLAIN ---
Type of Pastoral Visit _x__ Initial Visit ___ Follow-up Visit ___ On-call Visit ___ General Patient Visit ___ Spiritual Assessment ___ Family Conference ___ Bereavement ___ Rapid Response ___ Code Blue ___ Other (describe below) Pastoral Care Referral From _x__ Patient ___ Family ___ Nurse ___ Physician ___ Bilingual Kindergarten Teacher ___ Demonstrator [employer] ___ Other (describe below) Sacrament/Intervention _x__ Active listening ___ Anointing ___ Oriental Orthodox ___ Bereavement ___ Communion ___ Ursula exploration ___ _x__ Life review _x__ Prayer ___ Reconciliation ___ Sacrament of Sick ___ Supportive presence ___ Wedding ___ Other (describe below) Pastoral Comments
== END 2019-11-24 16:40 | disposition home or self-care (01) ==
LOC: ED 15:50 → PCU 17:20
PROVIDERS: Admitting Provider Internal Medicine; Emergency Provider Emergency Medicine; PCP Family Medicine; Visit Provider Student in an Organized Health Care Education/Training Program
DX: I25.110 Atherosclerotic heart disease of native coronary artery with unstable angina pectoris (principal); I11.0 Hypertensive heart disease with heart failure; I50.32 Chronic diastolic (congestive) heart failure; J44.9 Chronic obstructive pulmonary disease, unspecified; E78.5 Hyperlipidemia, unspecified; G47.33 Obstructive sleep apnea (adult) (pediatric); F17.210 Nicotine dependence, cigarettes, uncomplicated; I48.0 Paroxysmal atrial fibrillation; I73.9 Peripheral vascular disease, unspecified; I25.2 Old myocardial infarction; F41.9 Anxiety disorder, unspecified; F32.9 Major depressive disorder, single episode, unspecified; K58.9 Irritable bowel syndrome, unspecified; E66.9 Obesity, unspecified; Z79.899 Other long term (current) drug therapy; Z95.5 Presence of coronary angioplasty implant and graft; Z79.02 Long term (current) use of antithrombotics/antiplatelets; Z79.01 Long term (current) use of anticoagulants; Z79.82 Long term (current) use of aspirin; Z68.30 Body mass index [BMI] 30.0-30.9, adult
CPT/HCPCS: 36415; 71045; 80048; 83690; 84484; 85025; 93005; 93458; 96361; 96374; 96375; 99152; 99153; 99218; 99285; J7030; Q9967; A4216; C1769; C1894; G0378; J2405

== ENCOUNTER 2020-01-01 08:01 | Inpatient (IN) | payer MEDICARE, MEDICAID, SELFPAY ==
[2020-01-01] VITALS (14 sets, daily range): BP systolic 96–176; BP diastolic 36–77; PULSE 58–133; RESP 19–26; TEMP 37–38.8; O2SAT 87–99; BMI 28.7
--- NOTE | 2020-01-01 08:23 | EKG12_ITS ---
Test Reason : SOB Blood Pressure : / mmHG Vent. Rate : 070 BPM Atrial Rate : 057 BPM P-R Int : 000 ms QRS Dur : 108 ms QT Int : 426 ms P-R-T Axes : 072 -06 096 degrees QTc Int : 460 ms Wandering atrial pacemaker with some junctional beats Incomplete left bundle branch block Nonspecific ST and T wave abnormality Abnormal ECG Confirmed by MARTIN JEAN-BAPTISTE, GABO ([id number]), photography editor MAREN GRIMES ([id number]) on 01/14/2020 9:36:47 A M Referred By: HODA Confirmed By:TITA SALAZAR MD
--- NOTE | 2020-01-01 08:25 | ED.VIS.GEN ---
History of Present Illness Chief Complaint: General Illness Informant: Patient, Family Narrative: Family states the patient has been disoriented for several days. They note some decreased p.o. A cough with sputum production. She told triage she has had a runny nose and sore throat she tells me no. She denies diarrhea or vomiting. She notes generalized myalgias and malaise. Increased sleeping. Family states they are using a tympanic thermometer at home but have not noticed a fever. Family is unsure of her medications but did bring her pillbox but unfortunately not the names of the medicines. She is a [facility] patient. - Past Medical History (1) Smoking greater than 30 pack years Status: Chronic Comment: Low-dose CT lung screening due November 2020 (2) BELLE (obstructive sleep apnea) Status: Chronic Comment: Bipap 17/13 cm of H2O (3) Atherosclerotic heart disease of [place] coronary artery without angina pectoris Status: Chronic (4) History of coronary artery stent placement Status: Chronic Comment: [id number] LCx and OM 03/20/99; PCI-CARMEN of distal RCA and POBA-ostium of posterolateral branch for stent jailing; PCI-CARMEN to RCA and PDA 02/20; PCI-CARMEN to ISR-RCA 04/21/2015; [id number] RPDA w/ 2.5 x 24 mm Promus Stent and Distal RCA w/ 3.0 x 16 mm Promus Stent and POBA Ostial RPLB 03/18/2019 (5) Paroxysmal atrial fibrillation Status: Chronic (6) Acute on chronic diastolic (congestive) heart failure Status: Chronic (7) Abdominal aortic aneurysm (AAA) Status: Chronic Comment: Redemonstration of infrarenal abdominal aortic aneurysm measuring up to 4.4 cm x 4.4 cm essentially similar to previous exam. 01/21/2019 (8) Essential (primary) hypertension Status: Chronic (9) HLD (hyperlipidemia) Status: Chronic (10) Peripheral vascular occlusive disease Status: Chronic Comment: Bilateral SFA stents. Occluded Right SFA and angioplasty of in-stent stenosis of her left SFA. (11) COPD (chronic obstructive pulmonary disease) Status: Chronic Past Medical History - Allergies and Home Meds Allergies/Adverse Reactions: Allergies lisinopril Allergy (Verified 01/01/20 08:06) tongue swelling Primary Care Physician: Feng Hayes MD [Primary Care Provider] - Surgical History: noncontributory, - - LE intervention for PAD per Dr. Gar, cardiac catheterizations w/ total PCI x 7, Lower back injections, DIOMEDES, T+A, R foot surgery. Lives: With Family Smoking Status: Current every day smoker Drugs: None - Family History Maternal Family History: Family History (Last Reviewed 12/15/19 @ 09:52 by Evelyn QUIROZ, PA) Father Heart disease Hypertension Seizures Sister CVA (cerebral vascular accident) Hypertension Other Family history of hypertension Family History: Reports: Diabetes, High Cholesterol, Heart Disease, Hypertension, Stroke Paternal Family History: Family History (Last Reviewed 12/15/19 @ 09:52 by Evelyn QUIROZ, PA) Father Heart disease Hypertension Seizures Sister CVA (cerebral vascular accident) Hypertension Other Family history of hypertension Family History: Reports: Diabetes, High Cholesterol, Heart Disease, Hypertension, Stroke Review of Systems General: Reports: Chills, Malaise. Denies: Fever, Sweats Eyes: Denies: Visual changes - bilaterally, Diplopia ENT: Reports: Rhinorrhea, Sore throat Cardiovascular: Denies: Chest pain, Palpitations Respiratory: Reports: Dyspnea, Cough, Sputum, Dyspnea on exertion Gastrointestinal: Denies: Abdominal pain, Nausea, Vomiting, Diarrhea, Melena, Hematochezia Genitourinary: Denies: Dysuria, Hematuria, Frequency Musculoskeletal: Denies: Back pain, Extremity Pain Skin: Denies: Rash, Wounds Neurological: Reports: Weakness - Generalized. Denies: Headache, Numbness Physical Exam Vital Signs/Narrative: Vital Signs Temp Pulse Resp BP Pulse Ox 01/01/20 08:03 102.3 F H 74 16 118/58 L 90 Inital Vital Signs reviewed: Yes General: Well nourished, Well developed, No Acute Distress Head: Normocephalic, Atraumatic Eyes: Perrl, EOMI ENT: Moist mucous membranes, No rhinorrhea Neck: Supple, Nontender Cardiovascular: Regular rate, Regular rhythm, No murmurs Respiratory: No distress, CTA bilaterally, Chest nontender Abdomen: Soft, Nontender, Nondistended, Normal bowel sounds Back: Nontender, Normal Inspection Extremities: Nontender, No edema Skin: No rash, Pallor Neurological: Alert - Alert and orientated to place time and self but confused with basic questions, Cranial nerves II-XII grossly intact, Normal Strength, Normal Sensation Diagnostic/Tx/Re-eval STUDY: X-RAY CHEST REASON FOR EXAM: Female, 69 years old. cough, body aches,disoriented TECHNIQUE: Single AP portable view of the chest. COMPARISON: 11/23/2019 FINDINGS: EKG leads overlie the chest Chronic interstitial changes in both lung ruffin with development of subtle opacification in the right lower lobe without effusion. There is no demonstrated pleural abnormality. Normal size heart. Normal mediastinum and artis. Normal visualized pulmonary arteries. There is atherosclerotic calcification of the aortic arch with tortuosity. There are diffuse degenerative changes of the visualized thoracic spine. There is degenerative osteoarthritis of the bilateral shoulders. There is no demonstrated abnormality of the visualized soft tissue structures of the upper abdomen. IMPRESSION: Development of opacification the right lower lung field since the previous study, follow-up recommended to assure complete resolution Electronically Signed: Signature for MD Bill Huertas MD at 9:38 EDT , Service support , Laboratory Last Values WBC 8.0 K/mm3 (4.4-11.0) 01/01/20 08:25 RBC 4.19 M/mm3 (4.2-5.4) L 01/01/20 08:25 Hgb 12.2 g/dL (12.0-15.0) 01/01/20 08:25 Hct 37.4 % (37-47) 01/01/20 08:25 MCV 89.3 fL (81-99) 01/01/20 08:25 MCH 29.1 pg (27.0-32.0) 01/01/20 08:25 MCHC 32.6 g/dL (32-36) 01/01/20 08:25 RDW Std Deviation 44.1 fl (35.1-43.9) H 01/01/20 08:25 RDW Coeff of Natalie 13.5 % (11.6-14.6) 01/01/20 08:25 Plt Count 146 K/mm3 (150-450) L 01/01/20 08:25 MPV 12.1 fl (6.2-12.0) H 01/01/20 08:25 Immature Gran % (Auto) 0.400 % (0.0-0.9) 01/01/20 08:25 Neut % (Auto) 86.2 % (47-70) H 01/01/20 08:25 Lymph % (Auto) 6.7 % (19-41) L 01/01/20 08:25 [place] % (Auto) 6.5 % (0-10) 01/01/20 08:25 Eos % (Auto) 0.1 % (0-5) 01/01/20 08:25 Baso % (Auto) 0.1 % (0-1) 01/01/20 08:25 Absolute Neuts (auto) 6.9 X10^3/uL (2.0-7.7) 01/01/20 08:25 Absolute Lymphs (auto) 0.54 X10^3/uL (0.83-4.51) L 01/01/20 08:25 Nucleated RBC % 0 % (0-5) 01/01/20 08:25 Platelet Estimate ADEQUATE (ADEQ) 01/01/20 08:25 RBC Morphology NORM C+C NORMAL (NORM C&C) 01/01/20 08:25 PT 24.4 SECONDS (11.7-14.9) H 01/01/20 08:25 INR 2.3 01/01/20 08:25 APTT 32.2 Seconds (24.1-36.2) 01/01/20 08:25 Sodium 133 mmol/L (136-145) L 01/01/20 08:25 Potassium 3.6 mmol/L (3.5-5.1) 01/01/20 08:25 Chloride 99 mmol/L (98-107) 01/01/20 08:25 Carbon Dioxide 29.0 mmol/L (21.0-32.0) 01/01/20 08:25 Anion Gap 5 (5-15) 01/01/20 08:25 BUN 20 mg/dL (7-18) H 01/01/20 08:25 Creatinine 0.99 mg/dL (0.55-1.02) 01/01/20 08:25 Estim Creat Clear Calc 43.74 ml/min 01/01/20 08:25 Est GFR (MDRD) Af Amer 71 mL/min (>60) 01/01/20 08:25 Est GFR (MDRD) Non-Af 59 mL/min (>60) L 01/01/20 08:25 BUN/Creatinine Ratio 20.1 RATIO (10-20) H 01/01/20 08:25 Glucose 96 mg/dL (74-106) 01/01/20 08:25 Lactic Acid 1.1 mmol/L (0.4-1.9) 01/01/20 08:25 Calcium 8.3 mg/dL (8.5-10.1) L 01/01/20 08:25 Total Bilirubin 0.70 mg/dL (0.20-1.00) 01/01/20 08:25 AST 30 U/L (15-37) 01/01/20 08:25 ALT 25 U/L (13-56) 01/01/20 08:25 Alkaline Phosphatase 100 U/L (45-117) 01/01/20 08:25 Troponin I < 0.015 ng/mL (<0.045) 01/01/20 08:25 Total Protein 7.0 g/dL (6.4-8.2) 01/01/20 08:25 Albumin 3.3 g/dL (3.2-5.0) 01/01/20 08:25 Globulin 3.7 g/dL (2.2-4.2) 01/01/20 08:25 Albumin/Globulin Ratio 0.9 RATIO (0.9-2.4) 01/01/20 08:25 Abnormal Lab Results 01/01/20 01/01/20 01/01/20 08:25 08:25 08:25 WBC 8.0 RBC 4.19 L Hgb 12.2 Hct 37.4 MCV 89.3 MCH 29.1 MCHC 32.6 RDW Std Deviation 44.1 H RDW Coeff of Natalie 13.5 Plt Count 146 L MPV 12.1 H Immature Gran % (Auto) 0.400 Neut % (Auto) 86.2 H Lymph % (Auto) 6.7 L [place] % (Auto) 6.5 Eos % (Auto) 0.1 Baso % (Auto) 0.1 Absolute Neuts (auto) 6.9 Absolute Lymphs (auto) 0.54 L Nucleated RBC % 0 Platelet Estimate ADEQUATE RBC Morphology NORM C+C PT 24.4 H INR 2.3 APTT 32.2 Sodium 133 L Potassium 3.6 Chloride 99 Carbon Dioxide 29.0 Anion Gap 5 BUN 20 H Creatinine 0.99 Estim Creat Clear Calc 43.74 Est GFR (MDRD) Af Amer 71 Est GFR (MDRD) Non-Af 59 L BUN/Creatinine Ratio 20.1 H Glucose 96 Lactic Acid Calcium 8.3 L Total Bilirubin 0.70 AST 30 ALT 25 Alkaline Phosphatase 100 Troponin I < 0.015 Total Protein 7.0 Albumin 3.3 Globulin 3.7 Albumin/Globulin Ratio 0.9 Urine Color Urine Clarity Urine pH Ur Specific [place] Urine Protein Urine Glucose (UA) Urine Ketones Urine Occult Blood Urine Nitrite Urine Bilirubin Urine Urobilinogen Ur Leukocyte Esterase Urine RBC Urine WBC Ur Squamous Epith Cells Urine Bacteria Urine Mucus COVID-19 (ORI) 01/01/20 01/01/20 01/01/20 08:25 08:40 08:40 WBC RBC Hgb Hct MCV MCH MCHC RDW Std Deviation RDW Coeff of Natalie Plt Count MPV Immature Gran % (Auto) Neut % (Auto) Lymph % (Auto) [place] % (Auto) Eos % (Auto) Baso % (Auto) Absolute Neuts (auto) Absolute Lymphs (auto) Nucleated RBC % Platelet Estimate RBC Morphology PT INR APTT Sodium Potassium Chloride Carbon Dioxide Anion Gap BUN Creatinine Estim Creat Clear Calc Est GFR (MDRD) Af Amer Est GFR (MDRD) Non-Af BUN/Creatinine Ratio Glucose Lactic Acid 1.1 Calcium Total Bilirubin AST ALT Alkaline Phosphatase Troponin I Total Protein Albumin Globulin Albumin/Globulin Ratio Urine Color Urine Clarity Urine pH Ur Specific [place] Urine Protein Urine Glucose (UA) Urine Ketones Urine Occult Blood Urine Nitrite Urine Bilirubin Urine Urobilinogen Ur Leukocyte Esterase Urine RBC Urine WBC Ur Squamous Epith Cells Urine Bacteria Urine Mucus COVID-19 (ORI) Cancelled Detected - Medical Decision Making The patient received IV fluids and Tylenol. Chest x-ray is consistent with pneumonia. Basic labs showed a normal white count with a very mild thrombocytopenia. Lactic acid is normal. Blood cultures were sent as well as a COVID test which is pending. patient received Rocephin and azithromycin for antibiotics. Covid-19 test returned positive. She continues to require supplemental oxygen to keep oxygen saturation greater than 88%. She continues to have some mild encephalopathy as evidenced by me reminding her that she should keep the oxygen in her nose and her not knowing that she had taken her oxygen and put it in between her eyes. ED Disposition - Plan for ED Patient: Disposition: Acute Care [facility] Diagnosis: Pneumonia, Encephalopathy acute, Sepsis, COVID-19 Referrals: Feng Hayes MD [Primary Care Provider] -
[2020-01-01 08:48] LABS: Absolute Lymphocyte Count 0.54 X10^3/uL (0.83-4.51); Absolute Neutrophil Count 6.9 X10^3/uL (2.0-7.7); Basophil# 0.01 X10^3/uL; Basophil% 0.1 % (0-1); Eosinophil# 0.01 X10^3/uL; Eosinophils% 0.1 % (0-5); Hematocrit 37.4 % (37-47); Hemoglobin 12.2 g/dL (12.0-15.0); Lymphocyte # 0.54 X10^3/ul (4.0); Lymphocyte % 6.7 % (19-41); Mean Corp Hgb Conc 32.6 g/dL (32-36); Mean Corpuscular Hgb 29.1 pg (27.0-32.0); Mean Corpuscular Volume 89.3 fL (81-99); Mean Platelet Vol. 12.1 fl (6.2-12.0); Monocyte# 0.52 X10^3/uL; Monocyte% 6.5 % (0-10); NRBC Flagged by Analyzer 0 % (0-5); Neutrophil % 86.2 % (47-70); POSITIVE DIFFERENTIAL YES; Platelet Count 146 K/mm3 (150-450); RBC Distribution Width CV 13.5 % (11.6-14.6); RBC Distribution Width SD 44.1 fl (35.1-43.9); Red Blood Count 4.19 M/mm3 (4.2-5.4)
[2020-01-01 08:50] LABS: Differential Indicated SCAN CRITERIA MET
--- NOTE | 2020-01-01 08:50 | RAD_ITS ---
STUDY: X-RAY CHEST REASON FOR EXAM: Female, 69 years old. cough, body aches,disoriented TECHNIQUE: Single AP portable view of the chest. COMPARISON: 11/23/2019 FINDINGS: EKG leads overlie the chest Chronic interstitial changes in both lung ruffin with development of subtle opacification in the right lower lobe without effusion. There is no demonstrated pleural abnormality. Normal size heart. Normal mediastinum and artis. Normal visualized pulmonary arteries. There is atherosclerotic calcification of the aortic arch with tortuosity. There are diffuse degenerative changes of the visualized thoracic spine. There is degenerative osteoarthritis of the bilateral shoulders. There is no demonstrated abnormality of the visualized soft tissue structures of the upper abdomen. RAD/Chest 1 View (Portable) IMPRESSION: Development of opacification the right lower lung field since the previous study, follow-up recommended to assure complete resolution Electronically Signed: Bill Hsu MD at 9:38 EDT , Service support ,
[2020-01-01 09:16] LABS: International Normalized Ratio 2.3; Prothrombin Time (Protime)PT. 24.4 SECONDS (11.7-14.9)
[2020-01-01 09:17] LABS: Partial Thromboplast Time 32.2 Seconds (24.1-36.2)
[2020-01-01 09:18] LABS: ALB/GLOB Ratio 0.9 RATIO (0.9-2.4); AST(SGOT) 30 U/L (15-37); Alanine Aminotransfer ALT/SGPT 25 U/L (13-56); Albumin, Serum 3.3 g/dL (3.2-5.0); Alkaline Phosphatase 100 U/L (45-117); Anion Gap 5 (5-15); BUN 20 mg/dL (7-18); BUN/Creat Ratio 20.1 RATIO (10-20); Calcium,Total 8.3 mg/dL (8.5-10.1); Chloride 99 mmol/L (98-107); Creatinine, Serum 0.99 mg/dL (0.55-1.02); EST Glomerular Filtration Rate 59 mL/min (>60); Est Glom Filt Rate - Afr Amer 71 mL/min (>60); Estimated Creatinine Clearance 43.74 ml/min; Globulin 3.7 g/dL (2.2-4.2); Glucose 96 mg/dL (74-106); Potassium 3.6 mmol/L (3.5-5.1); Sodium Level 133 mmol/L (136-145)
[2020-01-01 09:19] LABS: Lactic Acid 1.1 mmol/L (0.4-1.9)
[2020-01-01 09:21] LABS: Platelet Estimate ADEQUATE (ADEQ); Red Cell Morphology NORM C+C NORMAL (NORM C&C)
[2020-01-01] MEDS: 0.9% Normal Saline 1,000 ML 999 ML IV ×2 (09:44→10:33)
[2020-01-01] MEDS: Ceftriaxone 1 GM/50 ML BAG IV (09:44)
[2020-01-01] MEDS: Acetaminophen 500 MG Tablet 1000 MG PO (09:52)
[2020-01-01 11:26] LABS: Color, Urine Yellow (Yellow); Glucose, Dipstick Normal (Normal); Ketone-Dipstick 5 mg/dl (Negative); Leukocyte Esterase-Dipstick 25 /ul (Negative); Nitrite-Dipstick Negative (Negative); Occult Blood-Urine 10 /ul (Negative); Protein-Dipstick 30 mg/dl (Negative); Red Blood Cells-Urine 0 SEEN /hpf (0-5); Urine Bilirubin Dipstick Negative (Negative); Urine Clarity Sl. Cloudy (Clear); Urine Urobilinogen 1 mg/dl (Normal)
[2020-01-01 11:32] LABS: Squamous Epithelial Cells - UA 0-5 SEEN /hpf (5-10); White Blood Cells 0-5 SEEN /hpf (0-5)
[2020-01-01 11:33] LABS: Bacteria RARE /hpf (None Seen); Mucous, Urine 1+ /hpf (<or=2+)
[2020-01-01] MEDS: 0.9% Normal Saline 1,000 ML 150 ML IV (12:08)
--- NOTE | 2020-01-01 14:09 | ED.RN ---
PT SLEEPING. AWAKENS EASILY.
--- NOTE | 2020-01-01 14:40 | ED.RN ---
lab called critical of covid +
--- NOTE | 2020-01-01 14:59 | NURSING ---
COVID UNIT COVID 19 PNEUMONIA [facility]
--- NOTE | 2020-01-01 16:10 | HP.PCM_ITS ---
Problem List (1) Pneumonia Status: Acute (2) Encephalopathy acute Status: Acute (3) Sepsis Status: Acute (4) COVID-19 Status: Acute (5) Chest pain Status: Acute (6) Smoking greater than 30 pack years Status: Chronic Comment: Low-dose CT lung screening due November 2020 (7) Atypical chest pain Status: Acute (8) BELLE (obstructive sleep apnea) Status: Chronic Comment: Bipap 17/13 cm of H2O (9) Atherosclerotic heart disease of [place] coronary artery without angina pectoris Status: Chronic Qualifiers: [place] vs. transplanted heart: [place] heart Qualified Code(s): I25.10 - Atherosclerotic heart disease of [place] coronary artery without angina pectoris (10) History of coronary artery stent placement Status: Chronic Comment: [id number] LCx and OM 03/20/99; PCI-CARMEN of distal RCA and POBA-ostium of posterolateral branch for stent jailing; PCI-CARMEN to RCA and PDA 02/20; PCI-CARMEN to ISR-RCA 04/21/2015; QOC-CBS-Ftvy RPDA w/ 2.5 x 24 mm Promus Stent and Distal RCA w/ 3.0 x 16 mm Promus Stent and POBA Ostial RPLB 03/18/2019 (11) Paroxysmal atrial fibrillation Status: Chronic (12) Acute on chronic diastolic (congestive) heart failure Status: Chronic (13) Abdominal aortic aneurysm (AAA) Status: Chronic Qualifiers: Comment: Redemonstration of infrarenal abdominal aortic aneurysm measuring up to 4.4 cm x 4.4 cm essentially similar to previous exam. 01/21/2019 (14) Essential (primary) hypertension Status: Chronic (15) HLD (hyperlipidemia) Status: Chronic Qualifiers: (16) Non-STEMI (non-ST elevated myocardial infarction) Status: Chronic Comment: 04/21/2015, 03/19/2019 (17) Peripheral vascular occlusive disease Status: Chronic Comment: Bilateral SFA stents. Occluded Right SFA and angioplasty of in-stent stenosis of her left SFA. (18) COPD (chronic obstructive pulmonary disease) Status: Chronic Qualifiers: (19) BELLE (obstructive sleep apnea) Status: Chronic Comment: Supposed to be on BiPAP (20) Nicotine dependence Status: Chronic Qualifiers: History of Present Illness Date of Admission: 01/01/20 Ms Puri is a 69 yo female with multiple medical comorbidities as listed below who presented to the ED on 01/01/2020 after being disoriented for the last few days. Per family, with whom she lives, she has had a cough with sputum production, a cough, myalgias, decreased PO intake, fatigue, and malaise. No temperature has noted with a tympanic thermometer. In the ED she was febrile with a temp of 100.9, HR was in the 60's, BP was slightly elevated, she was tachypneic and had an O2 sat of 93% on 3 L. She has no white count. Plt count was 146 which is down from baseline, she is mildly hyponatremic at 133, her troponin was neg, and her COVID-19 is positive. Blood and urine cx were done in the ED. Respiratory Viral panel was negative. Her CXR shows patchy B basilar infiltrates. She was admitted to the the COVID-19 unit and started on Decadron. Pulmonary and ID were consulted for the consideration of Remdesivir and convalescent plasma. I will give her empiric abx but suspicion for bacterial infection is low. Past Medical History Past Medical History (Chronic Problems): Chronic Problems (Last Reviewed 12/15/19 @ 09:52 by Evelyn QUIROZ, PA) Smoking greater than 30 pack years (Chronic) Low-dose CT lung screening due November 2020 BELLE (obstructive sleep apnea) (Chronic) Bipap 17/13 cm of H2O Atherosclerotic heart disease of [place] coronary artery without angina pectoris (Chronic) History of coronary artery stent placement (Chronic 03/18/19) [id number] LCx and OM 03/20/99; PCI-CARMEN of distal RCA and POBA-ostium of posterolateral branch for stent jailing; PCI-CARMEN to RCA and PDA 02/20; PCI- CARMEN to ISR-RCA 04/21/2015; HIC-CKR-Ieae RPDA w/ 2.5 x 24 mm Promus Stent and Distal RCA w/ 3.0 x 16 mm Promus Stent and POBA Ostial RPLB 03/18/2019 Paroxysmal atrial fibrillation (Chronic) Acute on chronic diastolic (congestive) heart failure (Chronic) Abdominal aortic aneurysm (AAA) (Chronic) Redemonstration of infrarenal abdominal aortic aneurysm measuring up to 4.4 cm x 4.4 cm essentially similar to previous exam. 01/21/2019 Essential (primary) hypertension (Chronic) HLD (hyperlipidemia) (Chronic) Non-STEMI (non-ST elevated myocardial infarction) (Chronic 03/19/19) 04/21/2015, 03/19/2019 Peripheral vascular occlusive disease (Chronic) Bilateral SFA stents. Occluded Right SFA and angioplasty of in-stent stenosis of her left SFA. COPD (chronic obstructive pulmonary disease) (Chronic) BELLE (obstructive sleep apnea) (Chronic) Supposed to be on BiPAP Nicotine dependence (Chronic) Medical History: Medical History (Last Reviewed 01/01/20 @ 16:[address] Josselyn Reis, DO) Atherosclerotic heart disease of [place] coronary artery without angina pectoris (Chronic) I25.10 Paroxysmal atrial fibrillation (Chronic) I48.0 Acute on chronic diastolic (congestive) heart failure (Chronic) I50.33 Abdominal aortic aneurysm (AAA) (Chronic) I71.4 Redemonstration of infrarenal abdominal aortic aneurysm measuring up to 4.4 cm x 4.4 cm essentially similar to previous exam. 01/21/2019 Essential (primary) hypertension (Chronic) I10 HLD (hyperlipidemia) (Chronic) E78.5 Non-STEMI (non-ST elevated myocardial infarction) (Chronic) Onset Date: 03/19/19 I21.4 04/21/2015, 03/19/2019 Peripheral vascular occlusive disease (Chronic) I73.9 Bilateral SFA stents. Occluded Right SFA and angioplasty of in-stent stenosis of her left SFA. COPD (chronic obstructive pulmonary disease) (Chronic) J44.9 BELLE (obstructive sleep apnea) (Chronic) Supposed to be on BiPAP Nicotine dependence (Chronic) F17.200 Anxiety and depression F41.8 Claudication in peripheral vascular disease I73.9 Emphysema of lung J43.9 IBS (irritable bowel syndrome) Obesity E66.9 Angina pectoris (Resolved) I20.9 Atrial fibrillation with RVR (Resolved) I48.91 Paroxsymal Hypokalemia (Resolved) E87.6 Unstable angina pectoris due to coronary arteriosclerosis (Resolved) I25.110 Dyspnea on exertion (Inactive) R06.09 PAD (peripheral artery disease) (Inactive) I73.9 Wheezing (Inactive) R06.2 Allergies lisinopril Allergy (Verified 01/01/20 08:06) tongue swelling Home Medications: Ambulatory Orders Medication Instructions Recorded Amitriptyline HCl [Elavil] 75 mg PO QHS 11/25/13 Multivitamins,Therapeutic 1 tab PO DAILY 11/25/13 [Multivitamin] nitroglycerin 0.4 mg sublingual 0.4 mg SUBLINGUAL Q5M PRN #25 tab 05/20/17 tablet ascorbic acid (vitamin C) 500 mg 500 mg PO BID cap 06/15/18 capsule albuterol sulfate 90 mcg/actuation 1 - 2 puff INHALATION Q4H PRN PRN 06/16/18 aerosol inhaler #1 inhaler Acetaminophen [Tylenol] 500 mg PO Q4H PRN PRN #20 tab 01/31/19 atorvastatin 40 mg tablet 40 mg PO QHS tab 07/09/19 dicyclomine 10 mg capsule 10 mg PO 4X/DAY 07/09/19 famotidine 20 mg tablet 20 mg PO BID 07/09/19 gabapentin 300 mg capsule 300 mg PO QHS 07/09/19 Clopidogrel Bisulfate [Plavix] 75 mg PO QHS 08/30/19 Rivaroxaban [Xarelto] 20 mg PO QHS 08/30/19 isosorbide mononitrate 60 mg 60 mg PO DAILY tab 10/08/19 tablet,extended release 24 hr Amlodipine Besylate 10 mg PO DAILY 11/23/19 Aspirin E.C. [Ecotrin] 81 mg PO DAILY@199911/23/19 Carvedilol 6.25 mg PO BID 11/23/19 Cholecalciferol (Vitamin D3) 1,000 unit PO DAILY 11/23/19 [Vitamin D3] Vitamin E 400 unit PO BID 11/23/19 Hydrochlorothiazide [Hctz] 25 mg PO DAILY #30 tab 11/24/19 amiodarone 200 mg tablet 100 mg PO DAILY tab 12/15/19 duloxetine 30 mg capsule,delayed 30 mg PO DAILY 12/15/19 release Surgical History: Surgical History (Last Reviewed 01/01/20 @ 16:[address] Josselyn Reis, DO) History of coronary artery stent placement (Chronic) Onset Date: 03/18/19 Z95.5 BBX-OLX-nrarhe LCx and OM 03/20/99; PCI-CARMEN of distal RCA and POBA-ostium of posterolateral branch for stent jailing; PCI-CARMEN to RCA and PDA 02/20; PCI- CARMEN to ISR-RCA 04/21/2015; DWU-EYS-Sxic RPDA w/ 2.5 x 24 mm Promus Stent and Distal RCA w/ 3.0 x 16 mm Promus Stent and POBA Ostial RPLB 03/18/2019 History of angioplasty of peripheral vessel Z98.62 Bilateral SFA stents. Occluded Right SFA and angioplasty of in-stent stenosis of her left SFA. History of bilateral leg stents History of bunionectomy of right great toe Z98.890 History of colonoscopy Onset Date: ~06/2018 Z98.890 History of hysterectomy Z90.710 History of left heart catheterization Onset Date: 11/25/19 Z98.890 03/20/99, 07/31/99,12/21/02, 06/2003, 02/2007, 12/2010, 04/20/15, 11/25/2019 History of tonsillectomy Z90.89 Hx of APLL Right X2-01/05/15, 11/26/13 Left X2- 02/15/15, 09/23/2016 Hx of hysterectomy Z90.710 Status post left foot surgery Z98.890 Surgical History: noncontributory, - - LE intervention for PAD per Dr. Gar, cardiac catheterizations w/ total PCI x 7, Lower back injections, DIOMEDES, T+A, R foot surgery. 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 Josselyn Reis DO) Father Heart disease Hypertension Seizures Sister CVA (cerebral vascular accident) Hypertension Other Family history of hypertension History Items: Diabetes, High Cholesterol, Heart Disease, Hypertension, Stroke Paternal Family History: Family History (Last Reviewed 01/01/20 @ 16:[address] Josselyn Reis DO) Father Heart disease Hypertension Seizures Sister CVA (cerebral vascular accident) Hypertension Other Family history of hypertension History Items: Diabetes, High Cholesterol, Heart Disease, Hypertension, Stroke Review of Systems Constitutional: Reports: Anorexia, Chills, Fever, Malaise, Weakness, Fatigue. Denies: Night Sweats, Weight Change Eyes: Denies: Blurred vision, Conjunctivae Inflammation, Drainage, Eyelid Inflammation, Pain, Redness, Vision Change HEENT: Denies: Difficulty Hearing, Difficulty Swallowing, Ear Pain, Eye Pain, Hard of Hearing, Head Aches, Hearing Changes, Nasal bleeding, Nasal Congestion, Post Nasal Drip, Sinus Congestion, Sinus Drainage, Sore Throat, Visual Changes Cardiovascular: Denies: Chest Pain, Claudication, Chest Pressure, Chest Tightness, Edema, Heaviness, Light Headedness, Orthopnea, Palpitations, Paroxysmal Noc. Dyspnea, Syncope Respiratory: Reports: Cough, Shortness of Breath, Shortness of breath at rest, Shortness of breath upon exertion, Sputum production. Denies: Hemoptysis, Pleuritic Pain, Wheezing Gastrointestinal: Denies: Abdominal Pain, Constipation, Diarrhea, Dyspepsia, Hematemesis, Hematochezia, Nausea, Melena, Vomiting Genitourinary: Denies: Dysuria, Frequency, Hematuria, Hesitancy, Incontinence, Nocturia, Retention, Urgency Musculoskeletal: Denies: Back Pain, Joint Pain, Joint stiffness, Joint swelling, Joint Tenderness, Muscle pain, Neck Pain Skin: Denies: Dryness, Jaundice, Lesions, Pruritis, Rash, Skin Changes, Wounds Neurological: Denies: Balance problems, Blurred vision, Double vision, Change in Speech, Slurred speech, Confusion, Difficulty swallowing, Focal weakness, Headaches, Incoordination, Numbness, Tingling, Tremor, Seizures Psychiatric: Reports: Anxiety, Depression Endocrine: Denies: Change in Body Habitus, Heat/ Cold Intolerance, Polydipsia, Polyuria Hematologic/ Lymphatic: Denies: Adenopathy, Anemia, Easy Bruising, Easy Bleeding, Petechiae, Purpura VTE Information - Inpt Only VTE Present on Admission: No VTE Mechan Device Prophylaxis: SCD's VTE Pharm Prophylaxis ordered?: No Patient Problems: Active and Suspected Problems (Last Reviewed 12/15/19 @ 09:52 by Evelyn QUIROZ, PA) Pneumonia (Acute) Encephalopathy acute (Acute) Sepsis (Acute) COVID-19 (Acute) - Physical Exam Vitals/I&O's: Vital Signs Temp Pulse Resp BP Pulse Ox 100.3 F H 61 24 H 131/53 H 98 01/01/20 15:16 01/01/20 15:16 01/01/20 15:16 01/01/20 15:16 01/01/20 15:16 Oxygen Flow Rate (L/min) 3 Oxygen Delivery Method Nasal Cannula Weight: 70.76 kg Body Mass Index (BMI) 27.6 Intake and Output for Last 24 Hours 12/30/19 12/31/19 01/01/20 23:59 23:59 23:59 Intake Total 2304 / 230 Balance 2304 General: Alert, Oriented x3, Cooperative, No apparent distress, Well developed, Well nourished, - - older WF lying in bed, appears non-toxic HEENT: Atraumatic, PERRLA, EOMI, Normocephalic, EAC Clear Oral: No Gingival or Mucosal Lesions/ Ulcerations, Dry Mucosa, - - fair dentition Neck: Supple, No JVD, No Nodes, Trachea Midline, Thyroid Normal Size and Texture Lungs: No rhonchi, No wheeze, Diminished, Rales - few at bases Cardiovascular: Regular rate, Regular Rhythm, Normal S1, Normal S2, No murmurs, No Ectopic Activity, No rub noted, No Gallop Abdomen: Bowel Sounds Present, Soft, Non Tender, Non-Distended, No Hepato- splenomegaly, No hernias noted Extremities: No clubbing, No cyanosis, No edema, Capillary Refill Less than 3 Seconds, Peripheral Pulses Normal Skin: No rashes, No breakdown Musculoskeletal: No Tenderness to Palpation of Joints or Extremities, No Muscle Wasting, Arthritic Changes Lymphatic: No Cervical, Supraclavicular, or Inguinal Adenopathy Neurological: Cranial nerves II-XII grossly intact, Neuro grossly intact, Muscle tone normal, Coordination normal Psych/Mental Status: Normal Affect, Appropriate, - - very pleasant Microbiology Past 72 Hours 01/01/20 12:00 Mucosa - Nose Respiratory Panel (PCR) - Final Laboratory Results 01/01/20 08:25: WBC 8.0, RBC 4.19 L, Hgb 12.2, Hct 37.4, MCV 89.3, MCH 29.1, MCHC 32.6, RDW Std Deviation 44.1 H, RDW Coeff of Natalie 13.5, Plt Count 146 L, MPV 12.1 H, Immature Gran % (Auto) 0.400, Neut % (Auto) 86.2 H, Lymph % (Auto) 6.7 L, [place] % (Auto) 6.5, Eos % (Auto) 0.1, Baso % (Auto) 0.1, Absolute Neuts (auto) 6.9, Absolute Lymphs (auto) 0.54 L, Nucleated RBC % 0, Platelet Estimate ADEQUATE, RBC Morphology NORM C+C 01/01/20 08:25: PT 24.4 H, INR 2.3, APTT 32.2 01/01/20 08:25: Sodium 133 L, Potassium 3.6, Chloride 99, Carbon Dioxide 29.0, Anion Gap 5, BUN 20 H, Creatinine 0.99, Estim Creat Clear Calc 43.74, Est GFR (MDRD) Af Amer 71, Est GFR (MDRD) Non-Af 59 L, BUN/Creatinine Ratio 20.1 H, Glucose 96, Calcium 8.3 L, Total Bilirubin 0.70, AST 30, ALT 25, Alkaline Phosphatase 100, Troponin I < 0.015, Total Protein 7.0, Albumin 3.3, Globulin 3.7, Albumin/Globulin Ratio 0.9 01/01/20 08:25: Lactic Acid 1.1 01/01/20 08:40: COVID-19 (ORI) Cancelled 01/01/20 08:40: COVID-19 (ORI) Detected 01/01/20 11:19: Urine Color Yellow, Urine Clarity Sl. Cloudy, Urine pH 5.0, Ur Specific [place] 1.020, Urine Protein 30 H, Urine Glucose (UA) Normal, Urine Ketones 5 H, Urine Occult Blood 10 H, Urine Nitrite Negative, Urine Bilirubin Negative, Urine Urobilinogen 1 H, Ur Leukocyte Esterase 25 H, Urine RBC 0 SEEN, Urine WBC 0-5 SEEN, Ur Squamous Epith Cells 0-5 SEEN, Urine Bacteria RARE, Urine Mucus 1+ Current Medications Sodium Chloride () 1,000 mls @ 150 mls/hr IV .[id number] FOR[facility]LY [facility], 1928–1983 Last Admin: 01/01/20 12:08 Dose: 150 mls/hr Documented by: Assessment/Plan All Active Problems (Last Reviewed 12/15/19 @ 09:52 by Evelyn Collier PA, PA) Pneumonia (Acute) Encephalopathy acute (Acute) Sepsis (Acute) COVID-19 (Acute) Chest pain (Acute) Atypical chest pain (Acute) Angina pectoris (Resolved) Atrial fibrillation with RVR (Resolved) Chest pain (Resolved) Hypokalemia (Resolved) Preop cardiovascular exam (Resolved) Unstable angina pectoris due to coronary arteriosclerosis (Resolved) Acute Hypoxic Respiratory Failure 2/2 COVID-19 -supplemental O2 as needed -on 3 L with SpO2 93% -has sig potential to decompensate quickly -BIPAP at hs unclear on settings so will use 02/19 for now -Decadron started day 03/26 -APAP for fevers -PT/OT for anticipated debility -consult ID/pulm for remdesivir and convalescent plasma Sepsis 2/2 above -see above -empiric zosyn -check MRSA PCR -cx pending but low suspicion for bacterial infection Metabolic Encephalopathy 2/2 COVID19 infection -monitor Thrombocytopenia -suspect related to viral syndrome -monitor -146 today Hyponatremia -suspect hypovolemia -IVF NS at 50 cc/hr CAD/HTN/HPL/PAD -continue asa/statin/coreg/plavix/isosorbide -hold HCTZ for now -had cath 11/24/2019 and EF was 60%, Patent previously paced stent with small subtotal LCX and medical therapy recommended PAF -continue BB and amiodarone -cont NOAC but switch to Eliquis with COVID19 and SAM potential COPD -aerosols prn for now BELLE -BIPAP at HS AAA -was 4.1x4.1 on US 08/2019 Anxiety/Depression -continue home meds Neuropathy -hold gabapentin for now with MS issues Overweight -recommend wgt loss DVT Prophylaxis -NOAC Code Status -Full -daughter to make decisions if pt unable per d/w pt Inpatient E&M: 39487 Init Hosp L3
[2020-01-01] MEDS: 0.9% Normal Saline 1,000 ML 50 ML IV (17:16)
--- NOTE | 2020-01-01 18:06 | PCM.PN.BLA ---
Progress Note Nursing staff mentioned that patient is getting more short of breath, tachypneic and requiring nonrebreather mask. I went to see the patient and she states that actually she feels little bit better than when she was down in the ED. Obviously, she is tachypneic, on nonrebreather mask. She received 2 L of IV fluids in the ED. Chest: Bilateral rhonchi, crackles. Short of breath. Plan: ABG, DC IV fluids, IV Lasix 40 mg x 1. CODE STATUS: Full code, discussed with the patient. She is agreed to CPR, intubation and mechanical ventilation. STROKE Vital Signs/Narrative: Vital Signs Temp Pulse Resp BP Pulse Ox 01/01/20 17:50 102 F H 70 20 H 176/65 H 87 01/01/20 16:09 100.9 F H 63 22 H 140/68 H 93 01/01/20 15:16 100.3 F H 61 24 H 131/53 H 98 01/01/20 14:07 98.6 F 58 L 19 H 117/50 L 92
[2020-01-01 18:21] LABS: Allen Test Positive; Base Excess -1 mmol/L (-2 to +2); Bicarbonate 22.5 mmol/L (22-26); Blood Gas Specimen Type ART; FI02 100; O2 Delivery Device NRB; PO2 56 mmHG (75-100); SITE L Radial; SO2 91 % (95-99); Total Carbon Dioxide 24 mmol/L; pCO2 31.9 mmHg (35-45); pH 7.46 (7.35-7.45)
[2020-01-01] MEDS: Furosemide 40 MG/4 ML Vial IV (18:26)
[2020-01-01] MEDS: Acetaminophen 325 MG Tablet 650 MG PO (18:29)
--- NOTE | 2020-01-01 18:48 | NURSING ---
pt found confused with removal of airvo HR in 140s, O2sat in 70s. Airvo placed again, pt reoriented, HRR eventually back to SR in the 70s
[2020-01-01 20:43] LABS: M R Staph aureus DNA By PCR Negative (Negative); Probe Check PASS; Specimen Processing Control PASS
[2020-01-01] MEDS: APIXABAN 5 MG TABLET PO (21:15)
[2020-01-01] MEDS: Amitriptyline 25 MG Tablet 75 MG PO (21:15)
[2020-01-01] MEDS: Aspirin E.C. 81 MG Tablet PO (21:16)
[2020-01-01] MEDS: Dicyclomine 10 MG Capsule PO (21:16)
[2020-01-01] MEDS: Clopidogrel Bisulfate 75 MG Tablet PO (21:16)
[2020-01-01] MEDS: Atorvastatin Calcium 40 MG Tablet PO (21:16)
[2020-01-01] MEDS: 0.9% Saline Lock 10 ML Syringe IV (21:16)
[2020-01-01] MEDS: Ascorbic Acid 500 MG Tablet PO (21:16)
[2020-01-01] MEDS: Carvedilol 6.25 MG Tablet PO (21:16)
[2020-01-01] MEDS: Famotidine 20 MG Tablet PO (21:20)
[2020-01-02] VITALS (20 sets, daily range): BP systolic 103–138; BP diastolic 47–86; PULSE 51–62; RESP 18–24; TEMP 36.6–38.2; O2SAT 93–100
[2020-01-02 04:41] LABS: Absolute Lymphocyte Count 0.74 X10^3/uL (0.83-4.51); Absolute Neutrophil Count 5.2 X10^3/uL (2.0-7.7); Eosinophil# 0.03 X10^3/uL; Eosinophils% 0.5 % (0-5); Hematocrit 33.1 % (37-47); Hemoglobin 10.8 g/dL (12.0-15.0); Lymphocyte # 0.74 X10^3/ul (4.0); Lymphocyte % 11.5 % (19-41); Mean Corp Hgb Conc 32.6 g/dL (32-36); Mean Corpuscular Hgb 29.2 pg (27.0-32.0); Mean Corpuscular Volume 89.5 fL (81-99); Mean Platelet Vol. 11.5 fl (6.2-12.0); Monocyte# 0.48 X10^3/uL; Monocyte% 7.4 % (0-10); NRBC Flagged by Analyzer 0 % (0-5); Neutrophil # 5.19 X10^3/uL (2.7-7.7); Neutrophil % 80.4 % (47-70); Platelet Count 114 K/mm3 (150-450); RBC Distribution Width CV 13.2 % (11.6-14.6); RBC Distribution Width SD 43.1 fl (35.1-43.9); White Blood Count 6.5 K/mm3 (4.4-11.0)
[2020-01-02 05:07] LABS: ALB/GLOB Ratio 0.8 RATIO (0.9-2.4); AST(SGOT) 39 U/L (15-37); Alanine Aminotransfer ALT/SGPT 32 U/L (13-56); Albumin, Serum 2.7 g/dL (3.2-5.0); Alkaline Phosphatase 74 U/L (45-117); Anion Gap 6 (5-15); BUN 21 mg/dL (7-18); BUN/Creat Ratio 22.2 RATIO (10-20); Calcium,Total 7.5 mg/dL (8.5-10.1); Chloride 101 mmol/L (98-107); Creatinine, Serum 0.95 mg/dL (0.55-1.02); EST Glomerular Filtration Rate 62 mL/min (>60); Est Glom Filt Rate - Afr Amer 75 mL/min (>60); Estimated Creatinine Clearance 43.58 ml/min; Globulin 3.2 g/dL (2.2-4.2); Glucose 78 mg/dL (74-106); Magnesium 1.9 mg/dL (1.6-2.6); Phosphorus 2.7 mg/dL (2.5-4.9); Potassium 2.8 mmol/L (3.5-5.1); Protein, Total 5.9 g/dL (6.4-8.2); Sodium Level 134 mmol/L (136-145); Thyroid Stim Hormone (TSH) 0.38 uIU/mL (0.358-3.74)
[2020-01-02] MEDS: Acetaminophen 325 MG Tablet 650 MG PO (05:25)
[2020-01-02] MEDS: Dicyclomine 10 MG Capsule PO ×4 (05:25→22:53)
[2020-01-02] MEDS: Potassium Chloride 10mEq/100mL 10 MEQ/100 ML IV.SOLN. 100 MEQ IV BOLUS ×4 (05:49→10:51)
[2020-01-02] MEDS: 0.9% Saline Lock 10 ML Syringe IV ×3 (05:49→23:03)
[2020-01-02] MEDS: Ondansetron 4 MG/2 ML Vial IV (08:42)
[2020-01-02] MEDS: dexAMETHasone 4 MG Tablet 6 MG PO (08:44)
[2020-01-02] MEDS: Multivitamins,Therapeutic Tablet 1 TABLET PO (08:46)
[2020-01-02] MEDS: APIXABAN 5 MG TABLET PO ×2 (08:46→22:52)
[2020-01-02] MEDS: Ascorbic Acid 500 MG Tablet PO ×2 (08:46→22:52)
[2020-01-02] MEDS: amLODIPine 10 MG Tablet PO (08:46)
[2020-01-02] MEDS: Isosorbide Mononitrate 60 MG Tablet PO (08:46)
[2020-01-02] MEDS: DULoxetine Hcl 30 MG Capsule PO (08:47)
[2020-01-02] MEDS: Amiodarone 200 MG Tablet 100 MG PO (08:47)
[2020-01-02] MEDS: Carvedilol 6.25 MG Tablet PO ×2 (08:47→22:52)
--- NOTE | 2020-01-02 10:31 | PCM.PN.HOSP ---
Patient Problems: Active and Suspected Problems (Last Reviewed 01/01/20 @ 16:[address] Josselyn Reis, DO) Pneumonia (Acute) Encephalopathy acute (Acute) Sepsis (Acute) COVID-19 (Acute) Chest pain (Acute) Atypical chest pain (Acute) Subjective: Pt decompensated last evening about a hour after she arrived to the floor and is now requiring HFNC. States that she feels better now. Vitals/I&O's: Vital Signs Temp Pulse Resp BP Pulse Ox 99.8 F H 56 L 18 125/54 H 97 01/02/20 09:00 01/02/20 09:00 01/02/20 09:00 01/02/20 09:00 01/02/20 09:00 Oxygen Flow Rate (L/min) 40 Oxygen Delivery Method Airvo Weight: 72.3 kg Body Mass Index (BMI) 28.7 Intake and Output for Last 24 Hours 12/31/19 01/01/20 01/02/20 23:59 23:59 23:59 Intake Total 3111.67 / 3261.67 855.21 / 855.21 Output Total 750 / 1730 1230 / 1230 Balance 2361.67 / 1531.67 -374.79 / -374.79 General: Alert, Oriented x3, Cooperative, No apparent distress, Well developed, Well nourished, - - Older WF on HFNC/AIRVO, appears comfortable and appropriately interactive HEENT: Atraumatic, PERRLA, EOMI, Normocephalic, EAC Clear Oral: Moist Mucosa Lungs: No rhonchi, No wheeze, No rales, Diminished Cardiovascular: Normal S1, Normal S2, No murmurs, No Ectopic Activity, Bradycardic - mild and asymptomatic, No rub noted, No Gallop, - - irreg Abdomen: Bowel Sounds Present, Soft, Non Tender, Non-Distended, No Hepato-splenomegaly, Obese, No hernias noted Extremities: No clubbing, No cyanosis, No edema, Capillary Refill Less than 3 Seconds, Peripheral Pulses Normal Skin: No rashes Neurological: Cranial nerves II-XII grossly intact, Neuro grossly intact Psych/Mental Status: Normal Affect, Appropriate, - - very pleasant Microbiology Past 72 Hours 01/01/20 12:00 Mucosa - Nose Respiratory Panel (PCR) - Final Laboratory Results 01/01/20 08:40: COVID-19 (ORI) Cancelled 01/01/20 08:40: COVID-19 (ORI) Detected 01/01/20 11:19: Urine Color Yellow, Urine Clarity Sl. Cloudy, Urine pH 5.0, Ur Specific [place] 1.020, Urine Protein 30 H, Urine Glucose (UA) Normal, Urine Ketones 5 H, Urine Occult Blood 10 H, Urine Nitrite Negative, Urine Bilirubin Negative, Urine Urobilinogen 1 H, Ur Leukocyte Esterase 25 H, Urine RBC 0 SEEN, Urine WBC 0-5 SEEN, Ur Squamous Epith Cells 0-5 SEEN, Urine Bacteria RARE, Urine Mucus 1+ 01/01/20 18:10: Specimen Type ART, Sample Site L Radial, pH 7.46 H, Bicarbonate Actual 22.5, Total CO2 24, Base Excess -1, O2 Saturation 91 L, O2 % 100, ABG pCO2 31.9 L, ABG pO2 56 L, Shaan Test Positive, O2 Delivery Device NRB 01/01/20 18:30: MRSA (PCR) Negative 01/02/20 04:21: WBC 6.5, RBC 3.70 L, Hgb 10.8 L, Hct 33.1 L, MCV 89.5, MCH 29.2, MCHC 32.6, RDW Std Deviation 43.1, RDW Coeff of Natalie 13.2, Plt Count 114 L, MPV 11.5, Immature Gran % (Auto) 0.200, Neut % (Auto) 80.4 H, Lymph % (Auto) 11.5 L, Dale % (Auto) 7.4, Eos % (Auto) 0.5, Baso % (Auto) 0.0, Absolute Neuts (auto) 5.2, Absolute Lymphs (auto) 0.74 L, Nucleated RBC % 0 01/02/20 04:21: Sodium 134 L, Potassium 2.8 L, Chloride 101, Carbon Dioxide 27.0, Anion Gap 6, BUN 21 H, Creatinine 0.95, Estim Creat Clear Calc 43.58, Est GFR (MDRD) Af Amer 75, Est GFR (MDRD) Non-Af 62, BUN/Creatinine Ratio 22.2 H, Glucose 78, Calcium 7.5 L, Phosphorus 2.7, Magnesium 1.9, Total Bilirubin 0.70, AST 39 H, ALT 32, Alkaline Phosphatase 74, Total Protein 5.9 L, Albumin 2.7 L, Globulin 3.2, Albumin/Globulin Ratio 0.8 L, TSH 0.38 Current Medications Acetaminophen (Acetaminophen 325 Mg Tablet) 650 mg PO Q6H PRN PRN PRN Reason: Pain Score 1-10/Temp > 100.7 F Last Admin: 01/02/20 05:25 Dose: 650 mg Documented by: Albuterol Sulfate (Albuterol 2.5 Mg/3 Ml Vial.Neb.) 2.5 mg INHALATION Q2H PRN PRN PRN Reason: Shortness of Breath/Wheezing Amiodarone HCl (Amiodarone 200 Mg Tablet) 100 mg PO DAILY [facility] Last Admin: 01/02/20 08:47 Dose: 100 mg Documented by: Amitriptyline HCl (Amitriptyline 25 Mg Tablet) 75 mg PO QHS [facility] Last Admin: 01/01/20 21:15 Dose: 75 mg Documented by: Amlodipine Besylate (Amlodipine 10 Mg Tablet) 10 mg PO DAILY [facility] Last Admin: 01/02/20 08:46 Dose: 10 mg Documented by: Apixaban (Apixaban 5 Mg Tablet) 5 mg PO BID [facility] Last Admin: 01/02/20 08:46 Dose: 5 mg Documented by: Ascorbic Acid (Ascorbic Acid 500 Mg Tablet) 500 mg PO BID [facility] Last Admin: 01/02/20 08:46 Dose: 500 mg Documented by: Aspirin (Aspirin E.C. 81 Mg Tablet) 81 mg PO QHS [facility] Last Admin: 01/01/20 21:16 Dose: 81 mg Documented by: Atorvastatin Calcium (Atorvastatin Calcium 40 Mg Tablet) 40 mg PO QHS [facility] Last Admin: 01/01/20 21:16 Dose: 40 mg Documented by: Carvedilol (Carvedilol 6.25 Mg Tablet) 6.25 mg PO BID [facility] Last Admin: 01/02/20 08:47 Dose: 6.25 mg Documented by: Cholecalciferol (Cholecalciferol (Vit D3) 1,000 Unit (25mcg)) 1,000 unit PO DAILY [facility] Last Admin: 01/02/20 08:46 Dose: 1,000 unit Documented by: Clopidogrel Bisulfate (Clopidogrel Bisulfate 75 Mg Tablet) 75 mg PO QHS [facility] Last Admin: 01/01/20 21:16 Dose: 75 mg Documented by: [facility] ([facility] 4 [facility] Last Admin: 01/02/20 08:44 Dose: 6 mg Documented by: Dicyclomine HCl (Dicyclomine 10 Mg Capsule) 10 mg PO 0400,1000,1600,2200 [facility] Last Admin: 01/02/20 08:48 Dose: 10 mg Documented by: Duloxetine HCl (Duloxetine Hcl 30 Mg Capsule) 30 mg PO DAILY [facility] Last Admin: 01/02/20 08:47 Dose: 30 mg Documented by: Famotidine (Famotidine 20 Mg Tablet) 20 mg PO QHS [facility] Last Admin: 01/01/20 21:20 Dose: 20 mg Documented by: Sodium Chloride () 250 mls @ 15 mls/hr IV .[id number] PRN PRN Reason: Saline Flush Sodium Chloride () 250 mls @ 15 mls/hr IV .[id number] PRN PRN Reason: Additional IVPB Infusion Piperacillin Sod/Tazobactam (Sod 3.375 gm/ Sodium Chloride) 50 mls @ 12.5 mls/hr IV Q8 [facility] Last Infusion: 01/02/20 05:49 Dose: 12.5 mls/hr Documented by: Isosorbide Mononitrate (Isosorbide Mononitrate 60 Mg Tablet) 60 mg PO DAILY [facility] Last Admin: 01/02/20 08:46 Dose: 60 mg Documented by: Melatonin (Melatonin 3 Mg Tablet) 3 mg PO QHS PRN PRN PRN Reason: INSOMNIA Morphine Sulfate (Morphine 2 Mg/Ml Syringe) 2 mg IV Q3H PRN PRN PRN Reason: Pain Score 6-10 Multivitamins (Multivitamins,Therapeutic Tablet) 1 tablet PO DAILY [facility] Last Admin: 01/02/20 08:46 Dose: 1 tablet Documented by: Nitroglycerin (Nitroglycerin (Inpatient Use) 0.4 Mg Tab.Subl) 0.4 mg SUBLINGUAL Q5M PRN PRN Reason: .CHEST PAIN Ondansetron HCl (Ondansetron 4 Mg/2 Ml Vial) 4 mg IV Q8H PRN PRN PRN Reason: NAUSEA/VOMITING Last Admin: 01/02/20 08:42 Dose: 4 mg Documented by: Sodium Chloride (0.9% Saline Lock 10 Ml Syringe) 10 - 40 ml IV UD PRN PRN Reason: SALINE FLUSH Last Admin: 01/02/20 08:42 Dose: 10 ml Documented by: Throat Lozenges (Benzocaine/Menthol 1 Lozenge) 1 lozenge MUCOUS MEM Q2H PRN PRN PRN Reason: SORE THROAT STROKE Vital Signs/Narrative: Vital Signs Temp Pulse Resp BP Pulse Ox 01/02/20 09:00 99.8 F H 56 L 18 125/54 H 97 01/02/20 08:30 97 01/02/20 07:00 58 L 01/02/20 06:53 99.9 F H Medical Necessity - Tobacco Use Smoking Status: Current every day smoker Assessment/Plan All Active Problems (Last Reviewed 01/01/20 @ 16:[address] Josselyn Reis, DO) Pneumonia (Acute) Encephalopathy acute (Acute) Sepsis (Acute) COVID-19 (Acute) Chest pain (Acute) Atypical chest pain (Acute) Angina pectoris (Resolved) Atrial fibrillation with RVR (Resolved) Chest pain (Resolved) Hypokalemia (Resolved) Preop cardiovascular exam (Resolved) Unstable angina pectoris due to coronary arteriosclerosis (Resolved) Acute Hypoxic Respiratory Failure 2/2 COVID-19 -supplemental O2 as needed -now on Airvo HFNC at 40 LPM and 60% FiO2 with SpO2 97% -has sig potential to decompensate quickly and require mech vent -continue NOAC--> pt on Xarelto but will use Eliquis for now 2/2 risk of SMA with COVID -BIPAP at hs unclear on settings so will use 02/19 for now -Decadron started day 04/26 -APAP for fevers -PT/OT for anticipated debility -consult ID/pulm for remdesivir and convalescent plasma -d/w Dr. Marx Sepsis 2/2 above -see above -continue empiric zosyn until cx result -MRSA PCR was neg -cx pending but low suspicion for bacterial infection Metabolic Encephalopathy 2/2 COVID19 infection -monitor -improved some today Thrombocytopenia -suspect related to viral syndrome -monitor -114 today Hyponatremia -stable -monitor CAD/HTN/HPL/PAD -continue asa/statin/coreg/plavix/isosorbide -hold HCTZ for now -had cath 11/24/2019 and EF was 60%, Patent previously paced stent with small subtotal LCX and medical therapy recommended PAF -continue BB and amiodarone -cont NOAC but switch to Eliquis with COVID19 and SAM potential COPD -aerosols prn for now BELLE -BIPAP at HS AAA -was 4.1x4.1 on US 08/2019 Anxiety/Depression -continue home meds Neuropathy -continue to hold gabapentin for now with MS issues Overweight -recommend wgt loss DVT Prophylaxis -NOAC Code Status -Full -daughter to make decisions if pt unable per d/w pt Inpatient E&M: 10710 Subs Hosp L2
--- NOTE | 2020-01-02 11:18 | PCM.CONS.PUL ---
Problem List (1) Pneumonia Status: Acute (2) Encephalopathy acute Status: Acute (3) COVID-19 Status: Acute (4) Atypical chest pain Status: Acute (5) BELLE (obstructive sleep apnea) Status: Chronic Comment: Bipap 17/13 cm of H2O (6) Atherosclerotic heart disease of [place] coronary artery without angina pectoris Status: Chronic Qualifiers: [place] vs. transplanted heart: [place] heart Qualified Code(s): I25.10 - Atherosclerotic heart disease of [place] coronary artery without angina pectoris (7) History of coronary artery stent placement Status: Chronic Comment: [id number] LCx and OM 03/20/99; PCI-CARMEN of distal RCA and POBA-ostium of posterolateral branch for stent jailing; PCI-CARMEN to RCA and PDA 02/20; PCI-CARMEN to ISR-RCA 04/21/2015; [id number]-MRI-[id number] RPDA w/ 2.5 x 24 mm Promus Stent and Distal RCA w/ 3.0 x 16 mm Promus Stent and POBA Ostial RPLB 03/18/2019 (8) Acute on chronic diastolic (congestive) heart failure Status: Chronic (9) Abdominal aortic aneurysm (AAA) Status: Chronic Qualifiers: Comment: Redemonstration of infrarenal abdominal aortic aneurysm measuring up to 4.4 cm x 4.4 cm essentially similar to previous exam. 01/21/2019 (10) Essential (primary) hypertension Status: Chronic (11) HLD (hyperlipidemia) Status: Chronic Qualifiers: (12) Non-STEMI (non-ST elevated myocardial infarction) Status: Chronic Comment: 04/21/2015, 03/19/2019 (13) Peripheral vascular occlusive disease Status: Chronic Comment: Bilateral SFA stents. Occluded Right SFA and angioplasty of in-stent stenosis of her left SFA. (14) COPD (chronic obstructive pulmonary disease) Status: Chronic Qualifiers: (15) BELLE (obstructive sleep apnea) Status: Chronic Comment: Supposed to be on BiPAP Reason for Consult Date of Consultation: 01/02/20 Reason for Consultation: Acute hypoxic respiratory failure History of Present Illness: The patient is a 69 year old F, with past medical history listed below and well-known to me from the outpatient office, who presented to [facility] on 01/01/2020 secondary to confusion and decreased p.o. intake for several days. Patient reportedly had had a cough productive of sputum, rhinorrhea and a sore throat. Patient denied any diarrhea, nausea or vomiting. Patient has had generalized myalgias, chills and sleep. Patient does not have a fever, but does not have a thermometer at home. On presentation to the ER, patient was noted to be febrile at 102.3 ?F and saturating 90%. Chest x-ray had shown a right lower lobe infiltrate. Patient did not have a leukocytosis, but INR was elevated at 2.3. Creatinine was within normal limits. Lactate and troponin were negative. Remaining chemistries were unremarkable. Patient had a COVID-19 test returned positive. Patient was placed on Rocephin and azithromycin. Patient's mentation reportedly improved with increased supplemental oxygen and patient was admitted to the cohort unit. Since being on the cohort unit, patient has been transitioned to high flow nasal cannula oxygen to maintain saturations. Patient reports that she feels subjectively improved compared to previous. Patient had not attempted to contact our office with the development of symptoms. Patient is not able to provide much in review of systems as she states that she just feels fine now. Review of systems provided by patient is not reliable in my opinion. Past Medical History Past Medical History (Chronic Problems): Chronic Problems (Last Reviewed 01/01/20 @ 16:[address] Josselyn Reis, DO) Smoking greater than 30 pack years (Chronic) Low-dose CT lung screening due November 2020 BELLE (obstructive sleep apnea) (Chronic) Bipap 17/13 cm of H2O Atherosclerotic heart disease of [place] coronary artery without angina pectoris (Chronic) History of coronary artery stent placement (Chronic 03/18/19) [id number] LCx and OM 03/20/99; PCI-CARMEN of distal RCA and POBA-ostium of posterolateral branch for stent jailing; PCI-CARMEN to RCA and PDA 02/20; PCI-CARMEN to ISR-RCA 04/21/2015; RQN-NBD-Heoy RPDA w/ 2.5 x 24 mm Promus Stent and Distal RCA w/ 3.0 x 16 mm Promus Stent and POBA Ostial RPLB 03/18/2019 Paroxysmal atrial fibrillation (Chronic) Acute on chronic diastolic (congestive) heart failure (Chronic) Abdominal aortic aneurysm (AAA) (Chronic) Redemonstration of infrarenal abdominal aortic aneurysm measuring up to 4.4 cm x 4.4 cm essentially similar to previous exam. 01/21/2019 Essential (primary) hypertension (Chronic) HLD (hyperlipidemia) (Chronic) Non-STEMI (non-ST elevated myocardial infarction) (Chronic 03/19/19) 04/21/2015, 03/19/2019 Peripheral vascular occlusive disease (Chronic) Bilateral SFA stents. Occluded Right SFA and angioplasty of in-stent stenosis of her left SFA. COPD (chronic obstructive pulmonary disease) (Chronic) BELLE (obstructive sleep apnea) (Chronic) Supposed to be on BiPAP Nicotine dependence (Chronic) Medical History: Medical History (Last Reviewed 01/01/20 @ 16:[address] Josselyn Reis, DO) Atherosclerotic heart disease of [place] coronary artery without angina pectoris (Chronic) I25.10 Paroxysmal atrial fibrillation (Chronic) I48.0 Acute on chronic diastolic (congestive) heart failure (Chronic) I50.33 Abdominal aortic aneurysm (AAA) (Chronic) I71.4 Redemonstration of infrarenal abdominal aortic aneurysm measuring up to 4.4 cm x 4.4 cm essentially similar to previous exam. 01/21/2019 Essential (primary) hypertension (Chronic) I10 HLD (hyperlipidemia) (Chronic) E78.5 Non-STEMI (non-ST elevated myocardial infarction) (Chronic) Onset Date: 03/19/19 I21.4 04/21/2015, 03/19/2019 Peripheral vascular occlusive disease (Chronic) I73.9 Bilateral SFA stents. Occluded Right SFA and angioplasty of in-stent stenosis of her left SFA. COPD (chronic obstructive pulmonary disease) (Chronic) J44.9 BELLE (obstructive sleep apnea) (Chronic) Supposed to be on BiPAP Nicotine dependence (Chronic) F17.200 Anxiety and depression F41.8 Claudication in peripheral vascular disease I73.9 Emphysema of lung J43.9 IBS (irritable bowel syndrome) Obesity E66.9 Angina pectoris (Resolved) I20.9 Atrial fibrillation with RVR (Resolved) I48.91 Paroxsymal Hypokalemia (Resolved) E87.6 Unstable angina pectoris due to coronary arteriosclerosis (Resolved) I25.110 Dyspnea on exertion (Inactive) R06.09 PAD (peripheral artery disease) (Inactive) I73.9 Wheezing (Inactive) R06.2 Allergies lisinopril Allergy (Verified 01/01/20 08:06) tongue swelling Home Medications: Ambulatory Orders Medication Instructions Recorded Amitriptyline HCl [Elavil] 75 mg PO QHS 11/25/13 Multivitamins,Therapeutic 1 tab PO DAILY 11/25/13 [Multivitamin] nitroglycerin 0.4 mg sublingual 0.4 mg SUBLINGUAL Q5M PRN #25 tab 05/20/17 tablet ascorbic acid (vitamin C) 500 mg 500 mg PO BID cap 06/15/18 capsule albuterol sulfate 90 mcg/actuation 1 - 2 puff INHALATION Q4H PRN PRN 06/16/18 aerosol inhaler #1 inhaler Acetaminophen [Tylenol] 500 mg PO Q4H PRN PRN #20 tab 01/31/19 atorvastatin 40 mg tablet 40 mg PO QHS tab 07/09/19 dicyclomine 10 mg capsule 10 mg PO 4X/DAY 07/09/19 famotidine 20 mg tablet 20 mg PO BID 07/09/19 gabapentin 300 mg capsule 300 mg PO TID 07/09/19 Clopidogrel Bisulfate [Plavix] 75 mg PO QHS 08/30/19 Rivaroxaban [Xarelto] 20 mg PO QHS 08/30/19 isosorbide mononitrate 60 mg 60 mg PO DAILY tab 10/08/19 tablet,extended release 24 hr Amlodipine Besylate 10 mg PO DAILY 11/23/19 Aspirin E.C. [Ecotrin] 81 mg PO DAILY@199911/23/19 Carvedilol 6.25 mg PO BID 11/23/19 Cholecalciferol (Vitamin D3) 1,000 unit PO DAILY 11/23/19 [Vitamin D3] Vitamin E 400 unit PO BID 11/23/19 Hydrochlorothiazide [Hctz] 25 mg PO DAILY #30 tab 11/24/19 amiodarone 200 mg tablet 200 mg PO DAILY tab 12/15/19 duloxetine 30 mg capsule,delayed 30 mg PO DAILY 12/15/19 release Doxazosin Mesylate [Cardura] 2 mg PO QHS 01/02/20 Furosemide 40 mg PO DAILY 01/02/20 Surgical History: Surgical History (Last Reviewed 01/01/20 @ 16:[address] Josselyn Reis DO) History of coronary artery stent placement (Chronic) Onset Date: 03/18/19 Z95.5 [id number] LCx and OM 03/20/99; PCI-CARMEN of distal RCA and POBA-ostium of posterolateral branch for stent jailing; PCI-CARMEN to RCA and PDA 02/20; PCI-CARMEN to ISR-RCA 04/21/2015; YLU-NUI-Obet RPDA w/ 2.5 x 24 mm Promus Stent and Distal RCA w/ 3.0 x 16 mm Promus Stent and POBA Ostial RPLB 03/18/2019 History of angioplasty of peripheral vessel Z98.62 Bilateral SFA stents. Occluded Right SFA and angioplasty of in-stent stenosis of her left SFA. History of bilateral leg stents History of bunionectomy of right great toe Z98.890 History of colonoscopy Onset Date: ~06/2018 Z98.890 History of hysterectomy Z90.710 History of left heart catheterization Onset Date: 11/25/19 Z98.890 03/20/99, 07/31/99,12/21/02, 06/2003, 02/2007, 12/2010, 04/20/15, 11/25/2019 History of tonsillectomy Z90.89 Hx of APLL Right X2-01/05/15, 11/26/13 Left X2- 02/15/15, 09/23/2016 Hx of hysterectomy Z90.710 Status post left foot surgery Z98.890 Surgical History: noncontributory, - - LE intervention for PAD per Dr. Gar, cardiac catheterizations w/ total PCI x 7, Lower back injections, DIOMEDES, T+A, R foot surgery. Psychiatric History: Anxiety, Depression [employer] History: No pertinent [employer] history Lives: With Family Smoking Status: Current every day smoker Alcohol: Rare Drugs: None - *Family History Maternal Family History: Family History (Last Reviewed 01/01/20 @ 16:[address] Josselyn Reis DO) Father Heart disease Hypertension Seizures Sister CVA (cerebral vascular accident) Hypertension Other Family history of hypertension History Items: Diabetes, High Cholesterol, Heart Disease, Hypertension, Stroke Paternal Family History: Family History (Last Reviewed 01/01/20 @ 16:[address] Josselyn Reis DO) Father Heart disease Hypertension Seizures Sister CVA (cerebral vascular accident) Hypertension Other Family history of hypertension History Items: Diabetes, High Cholesterol, Heart Disease, Hypertension, Stroke Review of Systems Unable to obtain accurate/complete ROS d/t: See HPI Patient Problems: Active and Suspected Problems (Last Reviewed 01/01/20 @ 16:[address] Josselyn Reis, DO) Pneumonia (Acute) Encephalopathy acute (Acute) Sepsis (Acute) COVID-19 (Acute) Chest pain (Acute) Atypical chest pain (Acute) Objective: Chest x-ray was personally reviewed. Patient does have a pulmonary function test from April 2019 showing a isolated reduction in diffusing capacity, but walking oximetry did not show a need for supplemental oxygen previously. Patient did have a low-dose CT scan completed in November that was within normal limits. Patient was recently placed on doxycycline secondary to reported COPD exacerbation. - Physical Exam Vitals/I&O's: Vital Signs Temp Pulse Resp BP Pulse Ox 37.7 C H 56 L 18 125/54 H 97 01/02/20 09:00 01/02/20 09:00 01/02/20 09:00 01/02/20 09:00 01/02/20 09:00 Oxygen Flow Rate (L/min) 40 Oxygen Delivery Method Airvo Weight: 72.3 kg Body Mass Index (BMI) 28.7 Intake and Output for Last 24 Hours 12/31/19 01/01/20 01/02/20 23:59 23:59 23:59 Intake Total 3111.67 / 3261.67 1000.00 / 1000.00 Output Total 750 / 1730 1230 / 1230 Balance 2361.67 / 1531.67 -230.00 / -230.00 General: Alert, Cooperative, Disoriented, - - Mild conversational dyspnea. HEENT: Atraumatic, PERRLA, EOMI, Normocephalic, - - No scleral icterus or injection noted Oral: Moist Mucosa, No Gingival or Mucosal Lesions/ Ulcerations Neck: Supple, No JVD, No Nodes, Trachea Midline Lungs: No rhonchi, No rales, Diminished, Wheezes, - - Symmetric expansion. Cardiovascular: Normal S1, Normal S2, No murmurs, Bradycardic, No rub noted, No Gallop Abdomen: Bowel Sounds Present, Soft, Non Tender, Non-Distended Extremities: No clubbing, No cyanosis, No edema, Capillary Refill Less than 3 Seconds Skin: No rashes, No breakdown Musculoskeletal: No Tenderness to Palpation of Joints or Extremities Lymphatic: No Cervical, Supraclavicular, or Inguinal Adenopathy Neurological: Cranial nerves II-XII grossly intact, Neuro grossly intact, Motor Exam 5/5 strength throughout Psych/Mental Status: Appropriate, Restless Microbiology Past 72 Hours 01/01/20 12:00 Mucosa - Nose Respiratory Panel (PCR) - Final Laboratory Results 01/01/20 08:40: COVID-19 (ORI) Cancelled 01/01/20 08:40: COVID-19 (ORI) Detected 01/01/20 11:19: Urine Color Yellow, Urine Clarity Sl. Cloudy, Urine pH 5.0, Ur Specific [place] 1.020, Urine Protein 30 H, Urine Glucose (UA) Normal, Urine Ketones 5 H, Urine Occult Blood 10 H, Urine Nitrite Negative, Urine Bilirubin Negative, Urine Urobilinogen 1 H, Ur Leukocyte Esterase 25 H, Urine RBC 0 SEEN, Urine WBC 0-5 SEEN, Ur Squamous Epith Cells 0-5 SEEN, Urine Bacteria RARE, Urine Mucus 1+ 01/01/20 18:10: Specimen Type ART, Sample Site L Radial, pH 7.46 H, Bicarbonate Actual 22.5, Total CO2 24, Base Excess -1, O2 Saturation 91 L, O2 % 100, ABG pCO2 31.9 L, ABG pO2 56 L, Shaan Test Positive, O2 Delivery Device NRB 01/01/20 18:30: MRSA (PCR) Negative 01/02/20 04:21: WBC 6.5, RBC 3.70 L, Hgb 10.8 L, Hct 33.1 L, MCV 89.5, MCH 29.2, MCHC 32.6, RDW Std Deviation 43.1, RDW Coeff of Natalie 13.2, Plt Count 114 L, MPV 11.5, Immature Gran % (Auto) 0.200, Neut % (Auto) 80.4 H, Lymph % (Auto) 11.5 L, [place] % (Auto) 7.4, Eos % (Auto) 0.5, Baso % (Auto) 0.0, Absolute Neuts (auto) 5.2, Absolute Lymphs (auto) 0.74 L, Nucleated RBC % 0 01/02/20 04:21: Sodium 134 L, Potassium 2.8 L, Chloride 101, Carbon Dioxide 27.0, Anion Gap 6, BUN 21 H, Creatinine 0.95, Estim Creat Clear Calc 43.58, Est GFR (MDRD) Af Amer 75, Est GFR (MDRD) Non-Af 62, BUN/Creatinine Ratio 22.2 H, Glucose 78, Calcium 7.5 L, Phosphorus 2.7, Magnesium 1.9, Total Bilirubin 0.70, AST 39 H, ALT 32, Alkaline Phosphatase 74, Total Protein 5.9 L, Albumin 2.7 L, Globulin 3.2, Albumin/Globulin Ratio 0.8 L, TSH 0.38 Current Medications Acetaminophen (Acetaminophen 325 Mg Tablet) 650 mg PO Q6H PRN PRN PRN Reason: Pain Score 1-10/Temp > 100.7 F Last Admin: 01/02/20 05:25 Dose: 650 mg Documented by: Albuterol Sulfate (Albuterol 2.5 Mg/3 Ml Vial.Neb.) 2.5 mg INHALATION Q2H PRN PRN PRN Reason: Shortness of Breath/Wheezing Amiodarone HCl (Amiodarone 200 Mg Tablet) 100 mg PO DAILY [facility] Last Admin: 01/02/20 08:47 Dose: 100 mg Documented by: Amitriptyline HCl (Amitriptyline 25 Mg Tablet) 75 mg PO QHS [facility] Last Admin: 01/01/20 21:15 Dose: 75 mg Documented by: Amlodipine Besylate (Amlodipine 10 Mg Tablet) 10 mg PO DAILY [facility] Last Admin: 01/02/20 08:46 Dose: 10 mg Documented by: Apixaban (Apixaban 5 Mg Tablet) 5 mg PO BID [facility] Last Admin: 01/02/20 08:46 Dose: 5 mg Documented by: Ascorbic Acid (Ascorbic Acid 500 Mg Tablet) 500 mg PO BID [facility] Last Admin: 01/02/20 08:46 Dose: 500 mg Documented by: Aspirin (Aspirin E.C. 81 Mg Tablet) 81 mg PO QHS [facility] Last Admin: 01/01/20 21:16 Dose: 81 mg Documented by: Atorvastatin Calcium (Atorvastatin Calcium 40 Mg Tablet) 40 mg PO QHS [facility] Last Admin: 01/01/20 21:16 Dose: 40 mg Documented by: Carvedilol (Carvedilol 6.25 Mg Tablet) 6.25 mg PO BID [facility] Last Admin: 01/02/20 08:47 Dose: 6.25 mg Documented by: Cholecalciferol (Cholecalciferol (Vit D3) 1,000 Unit (25mcg)) 1,000 unit PO DAILY [facility] Last Admin: 01/02/20 08:46 Dose: 1,000 unit Documented by: Clopidogrel Bisulfate (Clopidogrel Bisulfate 75 Mg Tablet) 75 mg PO QHS [facility] Last Admin: 01/01/20 21:16 Dose: 75 mg Documented by: Dexamethasone (Dexamethasone 4 Mg Tablet) 6 mg PO DAILYCM [facility] Last Admin: 01/02/20 08:44 Dose: 6 mg Documented by: Dicyclomine HCl (Dicyclomine 10 Mg Capsule) 10 mg PO 0400,1000,1600,2200 [facility] Last Admin: 01/02/20 08:48 Dose: 10 mg Documented by: Duloxetine HCl (Duloxetine Hcl 30 Mg Capsule) 30 mg PO DAILY [facility] Last Admin: 01/02/20 08:47 Dose: 30 mg Documented by: Famotidine (Famotidine 20 Mg Tablet) 20 mg PO QHS [facility] Last Admin: 01/01/20 21:20 Dose: 20 mg Documented by: Sodium Chloride () 250 mls @ 15 mls/hr IV .[id number] PRN PRN Reason: Saline Flush Sodium Chloride () 250 mls @ 15 mls/hr IV .[id number] PRN PRN Reason: Additional IVPB Infusion Piperacillin Sod/Tazobactam (Sod 3.375 gm/ Sodium Chloride) 50 mls @ 12.5 mls/hr IV Q8 [facility] Last Infusion: 01/02/20 10:34 Dose: Infused Documented by: Isosorbide Mononitrate (Isosorbide Mononitrate 60 Mg Tablet) 60 mg PO DAILY [facility] Last Admin: 01/02/20 08:46 Dose: 60 mg Documented by: Melatonin (Melatonin 3 Mg Tablet) 3 mg PO QHS PRN PRN PRN Reason: INSOMNIA Morphine Sulfate (Morphine 2 Mg/Ml Syringe) 2 mg IV Q3H PRN PRN PRN Reason: Pain Score 6-10 Multivitamins (Multivitamins,Therapeutic Tablet) 1 tablet PO DAILY [facility] Last Admin: 01/02/20 08:46 Dose: 1 tablet Documented by: Nitroglycerin (Nitroglycerin (Inpatient Use) 0.4 Mg Tab.Subl) 0.4 mg SUBLINGUAL Q5M PRN PRN Reason: .CHEST PAIN Ondansetron HCl (Ondansetron 4 Mg/2 Ml Vial) 4 mg IV Q8H PRN PRN PRN Reason: NAUSEA/VOMITING Last Admin: 01/02/20 08:42 Dose: 4 mg Documented by: Sodium Chloride (0.9% Saline Lock 10 Ml Syringe) 10 - 40 ml IV UD PRN PRN Reason: SALINE FLUSH Last Admin: 01/02/20 08:42 Dose: 10 ml Documented by: Throat Lozenges (Benzocaine/Menthol 1 Lozenge) 1 lozenge MUCOUS MEM Q2H PRN PRN PRN Reason: SORE THROAT Clinical Impression(s) from Imaging Studies Chest X-Ray 01/01/20 08:50 IMPRESSION: Development of opacification the right lower lung field since the previous study, follow-up recommended to assure complete resolution Electronically Signed: Bill Hsu MD at 9:38 EDT , Service support , Assessment/Plan All Active Problems (Last Reviewed 01/01/20 @ 16:[address] Josselyn Reis, ) Pneumonia (Acute) Encephalopathy acute (Acute) Sepsis (Acute) COVID-19 (Acute) Chest pain (Acute) Atypical chest pain (Acute) Angina pectoris (Resolved) Atrial fibrillation with RVR (Resolved) Chest pain (Resolved) Hypokalemia (Resolved) Preop cardiovascular exam (Resolved) Unstable angina pectoris due to coronary arteriosclerosis (Resolved) RECOMMENDATIONS: 1. Obtain pro calcitonin, CRP and type and screen 2. Initiate convalescent serum. Reevaluate for Remdesivir tomorrow 3. Wean oxygen as tolerated 4. Continue with Decadron and anticoagulation IMPRESSIONS: 1. Acute hypoxic respiratory failure secondary to COVID-19 Patient with significant FiO2 requirements at this time. Patient was on Xarelto at baseline, but given concern for acute kidney injury, agree with transition to Eliquis therapy. Patient should have BiPAP rescue if necessary, especially with sleeping. Continue with Decadron. Patient will be initiated on convalescent plasma, but feels that she is improving and does not really need experimental therapy unless she gets worse. Will reevaluate for Remdesivir tomorrow. Reasonable to continue with empiric antibiotics. Will obtain a pro calcitonin and CRP. 2. Metabolic encephalopathy secondary to probable hypoxia Patient's mentation appears to be improving. Patient did not recognize me despite seeing me multiple times in the past in the office. Unclear how much history she is able to provide reliably. We will continue with delirium protocol. 3. Anxiety/depression/paroxysmal A. fib/CAD/hyperlipidemia/peripheral artery disease/thrombocytopenia/hyponatremia/AAA/neuropathy Complicates care, management, recovery and prognosis. Recommend holding gabapentin given metabolic encephalopathy. Other medications can likely be continued. Patient did have a stent placed in the last 2 weeks, so antiplatelet therapy will need to be continued. Inpatient E&M: [id number] Init Hosp L3
[2020-01-02 14:27] LABS: Procalcitonin 0.41 ng/mL (0.00-0.09)
[2020-01-02] MEDS: Famotidine 20 MG Tablet PO (22:52)
[2020-01-02] MEDS: Aspirin E.C. 81 MG Tablet PO (22:52)
[2020-01-02] MEDS: Amitriptyline 25 MG Tablet 75 MG PO (22:52)
[2020-01-02] MEDS: Clopidogrel Bisulfate 75 MG Tablet PO (22:52)
[2020-01-02] MEDS: Atorvastatin Calcium 40 MG Tablet PO (22:52)
[2020-01-02] MEDS: MELATONIN 3 MG TABLET PO (22:54)
[2020-01-03] VITALS (14 sets, daily range): BP systolic 112–146; BP diastolic 44–59; PULSE 54–62; RESP 16–20; TEMP 36.4–37; O2SAT 89–98
[2020-01-03] MEDS: Dicyclomine 10 MG Capsule PO ×4 (03:36→21:18)
[2020-01-03 06:27] LABS: Absolute Lymphocyte Count 0.46 X10^3/uL (0.83-4.51); Absolute Neutrophil Count 4.3 X10^3/uL (2.0-7.7); Hemoglobin 9.8 g/dL (12.0-15.0); Lymphocyte # 0.46 X10^3/ul (4.0); Lymphocyte % 9.1 % (19-41); Mean Corp Hgb Conc 32.7 g/dL (32-36); Mean Corpuscular Hgb 29.3 pg (27.0-32.0); Mean Corpuscular Volume 89.6 fL (81-99); Mean Platelet Vol. 11.9 fl (6.2-12.0); Monocyte# 0.28 X10^3/uL; Monocyte% 5.5 % (0-10); NRBC Flagged by Analyzer 0 % (0-5); Neutrophil # 4.31 X10^3/uL (2.7-7.7); POSITIVE DIFFERENTIAL YES; Platelet Count 110 K/mm3 (150-450); RBC Distribution Width CV 13.2 % (11.6-14.6); RBC Distribution Width SD 43.2 fl (35.1-43.9); Red Blood Count 3.35 M/mm3 (4.2-5.4); White Blood Count 5.1 K/mm3 (4.4-11.0)
[2020-01-03 06:36] LABS: Differential Indicated SCAN CRITERIA MET
[2020-01-03 06:52] LABS: Differential Comment SCANNED
[2020-01-03 07:03] LABS: ALB/GLOB Ratio 0.8 RATIO (0.9-2.4); AST(SGOT) 74 U/L (15-37); Alanine Aminotransfer ALT/SGPT 55 U/L (13-56); Albumin, Serum 2.8 g/dL (3.2-5.0); Alkaline Phosphatase 75 U/L (45-117); Anion Gap 7 (5-15); BUN 27 mg/dL (7-18); BUN/Creat Ratio 32.8 RATIO (10-20); Chloride 103 mmol/L (98-107); Creatinine, Serum 0.82 mg/dL (0.55-1.02); EST Glomerular Filtration Rate 73 mL/min (>60); Est Glom Filt Rate - Afr Amer 88 mL/min (>60); Estimated Creatinine Clearance 50.49 ml/min; Globulin 3.6 g/dL (2.2-4.2); Glucose 106 mg/dL (74-106); Potassium 3.7 mmol/L (3.5-5.1); Protein, Total 6.4 g/dL (6.4-8.2); Sodium Level 135 mmol/L (136-145)
--- NOTE | 2020-01-03 07:37 | PN_ITS ---
Patient Problems: Active and Suspected Problems (Last Reviewed 01/01/20 @ 16:[address] Josselyn Reis DO) Pneumonia (Acute) Encephalopathy acute (Acute) Sepsis (Acute) COVID-19 (Acute) Chest pain (Acute) Atypical chest pain (Acute) Reason for Visit: COVID-19 pneumonia Subjective: Patient is a 69-year-old lady admitted with progressive shortness of breath and assessment of acute hypoxic respiratory failure secondary to COVID-19 pneumonia made admitted to regular nursing floor for further management Objective: GENERAL: cooperative HEENT: Atraumatic; EYES; Anicteric, Normal Conjunctiva NECK; supple, normal thyroid, RESPIRATORY: Diminished to auscultation CARDIOVASCULAR: Regular S1 S2, GI: soft, normoactive bowel sounds, : No Renal angle tenderness; EXTREMITIES: No edema, no clubbing, MUSCULOSKELETAL: no muscle waisting NEURO: Awake; no lateralizing signs. SKIN: No Rash PSYCH; Flat affect Vitals/I&O's: Vital Signs Temp Pulse Resp BP Pulse Ox 98.0 F 54 L 16 125/55 H 89 01/03/20 03:38 01/03/20 06:58 01/03/20 06:58 01/03/20 03:38 01/03/20 06:58 Oxygen Flow Rate (L/min) 40 Oxygen Delivery Method Airvo Weight: 72.6 kg Body Mass Index (BMI) 28.7 Intake and Output for Last 24 Hours 01/01/20 01/02/20 01/03/20 23:59 23:59 23:59 Intake Total 3111.67 / 3261.67 2570.00 / 2570.00 290 / 290 Output Total 750 / 1730 1230 / 1230 Balance 2361.67 / 1531.67 1340.00 / 1340.00 290 / 290 Microbiology Past 72 Hours 01/01/20 12:00 Mucosa - Nose Respiratory Panel (PCR) - Final Laboratory Results 01/02/20 12:00: C-React Prot Ext Range 174.00 H 01/02/20 12:00: Procalcitonin 0.41 H 01/02/20 12:00: Blood Type A POSITIVE, Antibody Screen NEGATIVE 01/03/20 05:50: WBC 5.1, RBC 3.35 L, Hgb 9.8 L, Hct 30.0 L, MCV 89.6, MCH 29.3, MCHC 32.7, RDW Std Deviation 43.2, RDW Coeff of Natalie 13.2, Plt Count 110 L, MPV 11.9, Immature Gran % (Auto) 0.400, Neut % (Auto) 85.0 H, Lymph % (Auto) 9.1 L, [place] % (Auto) 5.5, Eos % (Auto) 0.0, Baso % (Auto) 0.0, Absolute Neuts (auto) 4.3, Absolute Lymphs (auto) 0.46 L, Nucleated RBC % 0, Differential Comment SCANNED 01/03/20 05:50: Sodium 135 L, Potassium 3.7, Chloride 103, Carbon Dioxide 25.0, Anion Gap 7, BUN 27 H, Creatinine 0.82, Estim Creat Clear Calc 50.49, Est GFR (MDRD) Af Amer 88, Est GFR (MDRD) Non-Af 73, BUN/Creatinine Ratio 32.8 H, Glucose 106, Calcium 8.0 L, Total Bilirubin 0.60, AST 74 H, ALT 55, Alkaline Phosphatase 75, Total Protein 6.4, Albumin 2.8 L, Globulin 3.6, Albumin/Globulin Ratio 0.8 L Current Medications Acetaminophen (Acetaminophen 325 Mg Tablet) 650 mg PO Q6H PRN PRN PRN Reason: Pain Score 1-10/Temp > 100.7 F Last Admin: 01/02/20 05:25 Dose: 650 mg Documented by: Albuterol Sulfate (Albuterol 2.5 Mg/3 Ml Vial.Neb.) 2.5 mg INHALATION Q2H PRN PRN PRN Reason: Shortness of Breath/Wheezing Amiodarone HCl (Amiodarone 200 Mg Tablet) 100 mg PO DAILY [facility] Last Admin: 01/02/20 08:47 Dose: 100 mg Documented by: Amitriptyline HCl (Amitriptyline 25 Mg Tablet) 75 mg PO QHS [facility] Last Admin: 01/02/20 22:52 Dose: 75 mg Documented by: Amlodipine Besylate (Amlodipine 10 Mg Tablet) 10 mg PO DAILY [facility] Last Admin: 01/02/20 08:46 Dose: 10 mg Documented by: Apixaban (Apixaban 5 Mg Tablet) 5 mg PO BID [facility] Last Admin: 01/02/20 22:52 Dose: 5 mg Documented by: Ascorbic Acid (Ascorbic Acid 500 Mg Tablet) 500 mg PO BID [facility] Last Admin: 01/02/20 22:52 Dose: 500 mg Documented by: Aspirin (Aspirin E.C. 81 Mg Tablet) 81 mg PO QHS [facility] Last Admin: 01/02/20 22:52 Dose: 81 mg Documented by: Atorvastatin Calcium (Atorvastatin Calcium 40 Mg Tablet) 40 mg PO QHS [facility] Last Admin: 01/02/20 22:52 Dose: 40 mg Documented by: Carvedilol (Carvedilol 6.25 Mg Tablet) 6.25 mg PO BID [facility] Last Admin: 01/02/20 22:52 Dose: 6.25 mg Documented by: Cholecalciferol (Cholecalciferol (Vit D3) 1,000 Unit (25mcg)) 1,000 unit PO DAILY [facility] Last Admin: 01/02/20 08:46 Dose: 1,000 unit Documented by: Clopidogrel Bisulfate (Clopidogrel Bisulfate 75 Mg Tablet) 75 mg PO QHS [facility] Last Admin: 01/02/20 22:52 Dose: 75 mg Documented by: [facility] ([facility] Mg [facility] Last Admin: 01/02/20 08:44 Dose: 6 mg Documented by: Dicyclomine HCl (Dicyclomine 10 Mg Capsule) 10 mg PO 0400,1000,1600,2200 [facility] Last Admin: 01/03/20 03:36 Dose: 10 mg Documented by: Duloxetine HCl (Duloxetine Hcl 30 Mg Capsule) 30 mg PO DAILY [facility] Last Admin: 01/02/20 08:47 Dose: 30 mg Documented by: Famotidine (Famotidine 20 Mg Tablet) 20 mg PO QHS [facility] Last Admin: 01/02/20 22:52 Dose: 20 mg Documented by: Sodium Chloride () 250 mls @ 15 mls/hr IV .[id number] PRN PRN Reason: Saline Flush Sodium Chloride () 250 mls @ 15 mls/hr IV .[id number] PRN PRN Reason: Additional IVPB Infusion Piperacillin Sod/Tazobactam (Sod 3.375 gm/ Sodium Chloride) 50 mls @ 12.5 mls/hr IV Q8 [facility] Last Admin: 01/03/20 05:58 Dose: 12.5 mls/hr Documented by: Isosorbide Mononitrate (Isosorbide Mononitrate 60 Mg Tablet) 60 mg PO DAILY [facility] Last Admin: 01/02/20 08:46 Dose: 60 mg Documented by: Melatonin (Melatonin 3 Mg Tablet) 3 mg PO QHS PRN PRN PRN Reason: INSOMNIA Last Admin: 01/02/20 22:54 Dose: 3 mg Documented by: Morphine Sulfate (Morphine 2 Mg/Ml Syringe) 2 mg IV Q3H PRN PRN PRN Reason: Pain Score 6-10 Multivitamins (Multivitamins,Therapeutic Tablet) 1 tablet PO DAILY [facility] Last Admin: 01/02/20 08:46 Dose: 1 tablet Documented by: Nitroglycerin (Nitroglycerin (Inpatient Use) 0.4 Mg Tab.Subl) 0.4 mg SUBLINGUAL Q5M PRN PRN Reason: .CHEST PAIN Ondansetron HCl (Ondansetron 4 Mg/2 Ml Vial) 4 mg IV Q8H PRN PRN PRN Reason: NAUSEA/VOMITING Last Admin: 01/02/20 08:42 Dose: 4 mg Documented by: Sodium Chloride (0.9% Saline Lock 10 Ml Syringe) 10 - 40 ml IV UD PRN PRN Reason: SALINE FLUSH Last Admin: 01/02/20 23:03 Dose: 10 ml Documented by: Throat Lozenges (Benzocaine/Menthol 1 Lozenge) 1 lozenge MUCOUS MEM Q2H PRN PRN PRN Reason: SORE THROAT STROKE Vital Signs/Narrative: Vital Signs Temp Pulse Resp BP Pulse Ox 01/03/20 06:58 54 L 16 89 01/03/20 03:39 93 01/03/20 03:38 98.0 F 57 L 20 H 125/55 H 94 Medical Necessity - Tobacco Use Smoking Status: Current every day smoker Assessment/Plan All Active Problems (Last Reviewed 01/01/20 @ 16:[address] Josselyn Reis, DO) Pneumonia (Acute) Encephalopathy acute (Acute) Sepsis (Acute) COVID-19 (Acute) Chest pain (Acute) Atypical chest pain (Acute) Angina pectoris (Resolved) Atrial fibrillation with RVR (Resolved) Chest pain (Resolved) Hypokalemia (Resolved) Preop cardiovascular exam (Resolved) Unstable angina pectoris due to coronary arteriosclerosis (Resolved) Patient is a 69-year-old lady admitted with progressive shortness of breath and assessment of acute hypoxic respiratory failure secondary to COVID-19 pneumonia made admitted to regular nursing floor for further management 1. Acute hypoxic respiratory failure ?Secondary to COVID-19 pneumonia admitted to regular nursing floor managed with noninvasive ventilation with Airvo maintain saturation greater than 94. Patient also managed with systemic anticoagulation with Eliquis as well as Decadron. Patient has been seen in consultation . Sepsis secondary to above Management as discussed above. WBC count remains elevated 3. Acute metabolic encephalopathy ?Secondary to COVID-19 infection patient level of sensorium continues to improve 4. Thrombocytopenia -Due to COVID-19 infection monitoring counts 5. Mild hyponatremia ?Sodium levels back within normal limit patient is on HCTZ at home held 6. Hypertension - Blood pressure controlled, home medications continued with dose adjustment as needed 7. Dyslipidemia -Patient is on statin therapy, continued at home dose 9. Peripheral arterial disease ?Patient is on antiplatelet 10. Paroxysmal atrial fibrillation ?Rate controlled patient is on beta-blockers as well as amiodarone in addition to systemic anticoagulation 11. COPD ?Aerosol treatments as needed 12. Obstructive sleep apnea ?BiPAP at night 13. Depression with anxiety ?Patient is on amitriptyline 14. Peripheral neuropathy ?Patient is on gabapentin apparently held in view of patient being encephalopathic on admission 15. DVT prophylaxis ?Patient is on Eliquis CODE STATUS full code Active Medications Acetaminophen (Acetaminophen 325 Mg Tablet) 650 mg PO Q6H PRN PRN PRN Reason: Pain Score 1-10/Temp > 100.7 F Last Admin: 01/02/20 05:25 Dose: 650 mg Documented by: Albuterol Sulfate (Albuterol 2.5 Mg/3 Ml Vial.Neb.) 2.5 mg INHALATION Q2H PRN PRN PRN Reason: Shortness of Breath/Wheezing Amiodarone HCl (Amiodarone 200 Mg Tablet) 100 mg PO DAILY [facility] Last Admin: 01/02/20 08:47 Dose: 100 mg Documented by: Amitriptyline HCl (Amitriptyline 25 Mg Tablet) 75 mg PO QHS [facility] Last Admin: 01/02/20 22:52 Dose: 75 mg Documented by: Amlodipine Besylate (Amlodipine 10 Mg Tablet) 10 mg PO DAILY [facility] Last Admin: 01/02/20 08:46 Dose: 10 mg Documented by: Apixaban (Apixaban 5 Mg Tablet) 5 mg PO BID [facility] Last Admin: 01/02/20 22:52 Dose: 5 mg Documented by: Ascorbic Acid (Ascorbic Acid 500 Mg Tablet) 500 mg PO BID [facility] Last Admin: 01/02/20 22:52 Dose: 500 mg Documented by: Aspirin (Aspirin E.C. 81 Mg Tablet) 81 mg PO QHS [facility] Last Admin: 01/02/20 22:52 Dose: 81 mg Documented by: Atorvastatin Calcium (Atorvastatin Calcium 40 Mg Tablet) 40 mg PO QHS [facility] Last Admin: 01/02/20 22:52 Dose: 40 mg Documented by: Carvedilol (Carvedilol 6.25 Mg Tablet) 6.25 mg PO BID [facility] Last Admin: 01/02/20 22:52 Dose: 6.25 mg Documented by: Cholecalciferol (Cholecalciferol (Vit D3) 1,000 Unit (25mcg)) 1,000 unit PO ONDINA LY [facility] Last Admin: 01/02/20 08:46 Dose: 1,000 unit Documented by: Clopidogrel Bisulfate (Clopidogrel Bisulfate 75 Mg Tablet) 75 mg PO QHS [facility] Last Admin: 01/02/20 22:52 Dose: 75 mg Documented by: Dexamethasone (Dexamethasone 4 Mg Tablet) 6 mg PO DAILYCM [facility] Last Admin: 01/02/20 08:44 Dose: 6 mg Documented by: Dicyclomine HCl (Dicyclomine 10 Mg Capsule) 10 mg PO 0400,1000,1600,2200 [facility] Last Admin: 01/03/20 03:36 Dose: 10 mg Documented by: Duloxetine HCl (Duloxetine Hcl 30 Mg Capsule) 30 mg PO DAILY [facility] Last Admin: 01/02/20 08:47 Dose: 30 mg Documented by: Famotidine (Famotidine 20 Mg Tablet) 20 mg PO QHS [facility] Last Admin: 01/02/20 22:52 Dose: 20 mg Documented by: Sodium Chloride () 250 mls @ 15 mls/hr IV .[id number] PRN PRN Reason: Saline Flush Sodium Chloride () 250 mls @ 15 mls/hr IV .[id number] PRN PRN Reason: Additional IVPB Infusion Piperacillin Sod/Tazobactam (Sod 3.375 gm/ Sodium Chloride) 50 mls @ 12.5 mls/hr IV Q8 [facility] Last Admin: 01/03/20 05:58 Dose: 12.5 mls/hr Documented by: Isosorbide Mononitrate (Isosorbide Mononitrate 60 Mg Tablet) 60 mg PO DAILY [facility] Last Admin: 01/02/20 08:46 Dose: 60 mg Documented by: Melatonin (Melatonin 3 Mg Tablet) 3 mg PO QHS PRN PRN PRN Reason: INSOMNIA Last Admin: 01/02/20 22:54 Dose: 3 mg Documented by: Morphine Sulfate (Morphine 2 Mg/Ml Syringe) 2 mg IV Q3H PRN PRN PRN Reason: Pain Score 6-10 Multivitamins (Multivitamins,Therapeutic Tablet) 1 tablet PO DAILY [facility] Last Admin: 01/02/20 08:46 Dose: 1 tablet Documented by: Nitroglycerin (Nitroglycerin (Inpatient Use) 0.4 Mg Tab.Subl) 0.4 mg SUBLINGUAL Q5M PRN PRN Reason: .CHEST PAIN Ondansetron HCl (Ondansetron 4 Mg/2 Ml Vial) 4 mg IV Q8H PRN PRN PRN Reason: NAUSEA/VOMITING Last Admin: 01/02/20 08:42 Dose: 4 mg Documented by: Sodium Chloride (0.9% Saline Lock 10 Ml Syringe) 10 - 40 ml IV UD PRN PRN Reason: SALINE FLUSH Last Admin: 01/02/20 23:03 Dose: 10 ml Documented by: Throat Lozenges (Benzocaine/Menthol 1 Lozenge) 1 lozenge MUCOUS MEM Q2H PRN PRN PRN Reason: SORE THROAT Inpatient E&M: [id number] [facility] L2
[2020-01-03] MEDS: dexAMETHasone 4 MG Tablet 6 MG PO (08:57)
[2020-01-03] MEDS: Amiodarone 200 MG Tablet 100 MG PO (08:58)
[2020-01-03] MEDS: amLODIPine 10 MG Tablet PO (08:59)
[2020-01-03] MEDS: DULoxetine Hcl 30 MG Capsule PO (08:59)
[2020-01-03] MEDS: Ascorbic Acid 500 MG Tablet PO ×2 (08:59→21:17)
[2020-01-03] MEDS: Carvedilol 6.25 MG Tablet PO ×2 (08:59→21:17)
[2020-01-03] MEDS: Isosorbide Mononitrate 60 MG Tablet PO (08:59)
[2020-01-03] MEDS: Multivitamins,Therapeutic Tablet 1 TABLET PO (08:59)
[2020-01-03] MEDS: APIXABAN 5 MG TABLET PO ×2 (08:59→21:17)
[2020-01-03] MEDS: 0.9% Saline Lock 10 ML Syringe IV ×3 (09:04→21:17)
--- NOTE | 2020-01-03 14:00 | PCM.PN.PUL ---
Patient Problems: Active and Suspected Problems (Last Reviewed 01/01/20 @ 16:[address] Josselyn Reis DO) Pneumonia (Acute) Encephalopathy acute (Acute) Sepsis (Acute) COVID-19 (Acute) Chest pain (Acute) Atypical chest pain (Acute) Subjective: The patient was seen and examined at the bedside this morning. Events from the last 24 hours have been reviewed. The patient is currently afebrile, hemodynamically stable and maintaining appropriate oxygen saturations on 2 L/min via nasal cannula. Breathing quality has overall improved. Objective: The patient's most recent lab work, culture data and imaging studies have all been personally reviewed. Coronavirus PCR was positive on December 31. Respiratory viral panel was negative. Blood and urine cultures have shown no growth to date. - Physical Exam Vitals/I&O's: Vital Signs Temp Pulse Resp BP Pulse Ox 97.6 F L 54 L 20 H 146/59 H 94 01/03/20 08:55 01/03/20 08:55 01/03/20 08:55 01/03/20 08:55 01/03/20 11:50 Oxygen Flow Rate (L/min) 2 Oxygen Delivery Method Nasal Cannula Weight: 160 lb 0.889 oz Body Mass Index (BMI) 28.7 Intake and Output for Last 24 Hours 01/01/20 01/02/20 01/03/20 23:59 23:59 23:59 Intake Total 3111.67 / 3261.67 2570.00 / 2570.00 340 / 340 Output Total 750 / 1730 1230 / 1230 Balance 2361.67 / 1531.67 1340.00 / 1340.00 340 / 340 General: Alert, Cooperative HEENT: Atraumatic, Normocephalic Oral: No Gingival or Mucosal Lesions/ Ulcerations Neck: Supple, No Nodes, Trachea Midline Lungs: Diminished Cardiovascular: Normal S1, Normal S2, Bradycardic Abdomen: Bowel Sounds Present, Soft, Non Tender Extremities: No clubbing, No cyanosis, No edema Skin: No breakdown Musculoskeletal: No Tenderness to Palpation of Joints or Extremities Lymphatic: No Cervical, Supraclavicular, or Inguinal Adenopathy Neurological: Cranial nerves II-XII grossly intact, Neuro grossly intact Psych/Mental Status: Flat Affect Labs (Last 48 Hours) 01/01/20 01/01/20 01/01/20 08:40 18:10 18:30 WBC RBC Hgb Hct MCV MCH MCHC RDW Std Deviation RDW Coeff of Natalie Plt Count MPV Immature Gran % (Auto) Neut % (Auto) Lymph % (Auto) Tripp % (Auto) Eos % (Auto) Baso % (Auto) Absolute Neuts (auto) Absolute Lymphs (auto) Nucleated RBC % Differential Comment Specimen Type ART Sample Site L Radial pH 7.46 H Bicarbonate Actual 22.5 Total CO2 24 Base Excess -1 O2 Saturation 91 L O2 % 100 ABG pCO2 31.9 L ABG pO2 56 L Shaan Test Positive O2 Delivery Device NRB Sodium Potassium Chloride Carbon Dioxide Anion Gap BUN Creatinine Estim Creat Clear Calc Est GFR (MDRD) Af Amer Est GFR (MDRD) Non-Af BUN/Creatinine Ratio Glucose Calcium Phosphorus Magnesium Total Bilirubin AST ALT Alkaline Phosphatase C-React Prot Ext Range Total Protein Albumin Globulin Albumin/Globulin Ratio Procalcitonin TSH COVID-19 (ORI) Detected MRSA (PCR) Negative Blood Type Antibody Screen 01/02/20 01/02/20 01/02/20 04:21 04:21 12:00 WBC 6.5 RBC 3.70 L Hgb 10.8 L Hct 33.1 L MCV 89.5 MCH 29.2 MCHC 32.6 RDW Std Deviation 43.1 RDW Coeff of Natalie 13.2 Plt Count 114 L MPV 11.5 Immature Gran % (Auto) 0.200 Neut % (Auto) 80.4 H Lymph % (Auto) 11.5 L Tripp % (Auto) 7.4 Eos % (Auto) 0.5 Baso % (Auto) 0.0 Absolute Neuts (auto) 5.2 Absolute Lymphs (auto) 0.74 L Nucleated RBC % 0 Differential Comment Specimen Type Sample Site pH Bicarbonate Actual Total CO2 Base Excess O2 Saturation O2 % ABG pCO2 ABG pO2 Shaan Test O2 Delivery Device Sodium 134 L Potassium 2.8 L Chloride 101 Carbon Dioxide 27.0 Anion Gap 6 BUN 21 H Creatinine 0.95 Estim Creat Clear Calc 43.58 Est GFR (MDRD) Af Amer 75 Est GFR (MDRD) Non-Af 62 BUN/Creatinine Ratio 22.2 H Glucose 78 Calcium 7.5 L Phosphorus 2.7 Magnesium 1.9 Total Bilirubin 0.70 AST 39 H ALT 32 Alkaline Phosphatase 74 C-React Prot Ext Range 174.00 H Total Protein 5.9 L Albumin 2.7 L Globulin 3.2 Albumin/Globulin Ratio 0.8 L Procalcitonin TSH 0.38 COVID-19 (ORI) MRSA (PCR) Blood Type Antibody Screen 01/02/20 01/02/20 01/03/20 12:00 12:00 05:50 WBC 5.1 RBC 3.35 L Hgb 9.8 L Hct 30.0 L MCV 89.6 MCH 29.3 MCHC 32.7 RDW Std Deviation 43.2 RDW Coeff of Natalie 13.2 Plt Count 110 L MPV 11.9 Immature Gran % (Auto) 0.400 Neut % (Auto) 85.0 H Lymph % (Auto) 9.1 L Tripp % (Auto) 5.5 Eos % (Auto) 0.0 Baso % (Auto) 0.0 Absolute Neuts (auto) 4.3 Absolute Lymphs (auto) 0.46 L Nucleated RBC % 0 Differential Comment SCANNED Specimen Type Sample Site pH Bicarbonate Actual Total CO2 Base Excess O2 Saturation O2 % ABG pCO2 ABG pO2 Shaan Test O2 Delivery Device Sodium Potassium Chloride Carbon Dioxide Anion Gap BUN Creatinine Estim Creat Clear Calc Est GFR (MDRD) Af Amer Est GFR (MDRD) Non-Af BUN/Creatinine Ratio Glucose Calcium Phosphorus Magnesium Total Bilirubin AST ALT Alkaline Phosphatase C-React Prot Ext Range Total Protein Albumin Globulin Albumin/Globulin Ratio Procalcitonin 0.41 H TSH COVID-19 (ORI) MRSA (PCR) Blood Type A POSITIVE Antibody Screen NEGATIVE 01/03/20 05:50 WBC RBC Hgb Hct MCV MCH MCHC RDW Std Deviation RDW Coeff of Natalie Plt Count MPV Immature Gran % (Auto) Neut % (Auto) Lymph % (Auto) Tripp % (Auto) Eos % (Auto) Baso % (Auto) Absolute Neuts (auto) Absolute Lymphs (auto) Nucleated RBC % Differential Comment Specimen Type Sample Site pH Bicarbonate Actual Total CO2 Base Excess O2 Saturation O2 % ABG pCO2 ABG pO2 Shaan Test O2 Delivery Device Sodium 135 L Potassium 3.7 Chloride 103 Carbon Dioxide 25.0 Anion Gap 7 BUN 27 H Creatinine 0.82 Estim Creat Clear Calc 50.49 Est GFR (MDRD) Af Amer 88 Est GFR (MDRD) Non-Af 73 BUN/Creatinine Ratio 32.8 H Glucose 106 Calcium 8.0 L Phosphorus Magnesium Total Bilirubin 0.60 AST 74 H ALT 55 Alkaline Phosphatase 75 C-React Prot Ext Range Total Protein 6.4 Albumin 2.8 L Globulin 3.6 Albumin/Globulin Ratio 0.8 L Procalcitonin TSH COVID-19 (ORI) MRSA (PCR) Blood Type Antibody Screen Microbiology 01/01/20 11:19 Urine, Clean Catch Urine Culture - Final Culture exhibits no growth. 01/01/20 08:25 Blood Culture (Wb) - Anticubital Left Blood Culture - Preliminary No growth in 48 hours. 01/01/20 08:25 Blood Culture (Wb) - Left Hand Blood Culture - Preliminary No growth in 48 hours. 01/01/20 12:00 Mucosa - Nose Respiratory Panel (PCR) - Final Clinical Impression(s) from Imaging Studies Chest X-Ray 01/01/20 08:50 IMPRESSION: Development of opacification the right lower lung field since the previous study, follow-up recommended to assure complete resolution Electronically Signed: Bill Hsu MD at 9:38 EDT , Service support , Current Medications Acetaminophen (Acetaminophen 325 Mg Tablet) 650 mg PO Q6H PRN PRN PRN Reason: Pain Score 1-10/Temp > 100.7 F Last Admin: 01/02/20 05:25 Dose: 650 mg Documented by: Albuterol Sulfate (Albuterol 2.5 Mg/3 Ml Vial.Neb.) 2.5 mg INHALATION Q2H PRN PRN PRN Reason: Shortness of Breath/Wheezing Amiodarone HCl (Amiodarone 200 Mg Tablet) 100 mg PO DAILY [facility] Last Admin: 01/03/20 08:58 Dose: 100 mg Documented by: Amitriptyline HCl (Amitriptyline 25 Mg Tablet) 75 mg PO QHS [facility] Last Admin: 01/02/20 22:52 Dose: 75 mg Documented by: Amlodipine Besylate (Amlodipine 10 Mg Tablet) 10 mg PO DAILY [facility] Last Admin: 01/03/20 08:59 Dose: 10 mg Documented by: Apixaban (Apixaban 5 Mg Tablet) 5 mg PO BID [facility] Last Admin: 01/03/20 08:59 Dose: 5 mg Documented by: Ascorbic Acid (Ascorbic Acid 500 Mg Tablet) 500 mg PO BID [facility] Last Admin: 01/03/20 08:59 Dose: 500 mg Documented by: Aspirin (Aspirin E.C. 81 Mg Tablet) 81 mg PO QHS [facility] Last Admin: 01/02/20 22:52 Dose: 81 mg Documented by: Atorvastatin Calcium (Atorvastatin Calcium 40 Mg Tablet) 40 mg PO QHS [facility] Last Admin: 01/02/20 22:52 Dose: 40 mg Documented by: Carvedilol (Carvedilol 6.25 Mg Tablet) 6.25 mg PO BID [facility] Last Admin: 01/03/20 08:59 Dose: 6.25 mg Documented by: Cholecalciferol (Cholecalciferol (Vit D3) 1,000 Unit (25mcg)) 1,000 unit PO DAILY [facility] Last Admin: 01/03/20 08:59 Dose: 1,000 unit Documented by: Clopidogrel Bisulfate (Clopidogrel Bisulfate 75 Mg Tablet) 75 mg PO QHS [facility] Last Admin: 01/02/20 22:52 Dose: 75 mg Documented by: [facility] Last Admin: 01/03/20 08:57 Dose: 6 mg Documented by: Dicyclomine HCl (Dicyclomine 10 Mg Capsule) 10 mg PO 0400,1000,1600,2200 [facility] Last Admin: 01/03/20 08:58 Dose: 10 mg Documented by: Duloxetine HCl (Duloxetine Hcl 30 Mg Capsule) 30 mg PO DAILY [facility] Last Admin: 01/03/20 08:59 Dose: 30 mg Documented by: Famotidine (Famotidine 20 Mg Tablet) 20 mg PO QHS [facility] Last Admin: 01/02/20 22:52 Dose: 20 mg Documented by: Sodium Chloride () 250 mls @ 15 mls/hr IV .[id number] PRN PRN Reason: Saline Flush Sodium Chloride () 250 mls @ 15 mls/hr IV .[id number] PRN PRN Reason: Additional IVPB Infusion Piperacillin Sod/Tazobactam (Sod 3.375 gm/ Sodium Chloride) 50 mls @ 12.5 mls/hr IV Q8 [facility] Last Infusion: 01/03/20 09:58 Dose: Infused Documented by: Isosorbide Mononitrate (Isosorbide Mononitrate 60 Mg Tablet) 60 mg PO DAILY [facility] Last Admin: 01/03/20 08:59 Dose: 60 mg Documented by: Melatonin (Melatonin 3 Mg Tablet) 3 mg PO QHS PRN PRN PRN Reason: INSOMNIA Last Admin: 01/02/20 22:54 Dose: 3 mg Documented by: Morphine Sulfate (Morphine 2 Mg/Ml Syringe) 2 mg IV Q3H PRN PRN PRN Reason: Pain Score 6-10 Multivitamins (Multivitamins,Therapeutic Tablet) 1 tablet PO DAILY [facility] Last Admin: 01/03/20 08:59 Dose: 1 tablet Documented by: Nitroglycerin (Nitroglycerin (Inpatient Use) 0.4 Mg Tab.Subl) 0.4 mg SUBLINGUAL Q5M PRN PRN Reason: .CHEST PAIN Ondansetron HCl (Ondansetron 4 Mg/2 Ml Vial) 4 mg IV Q8H PRN PRN PRN Reason: NAUSEA/VOMITING Last Admin: 01/02/20 08:42 Dose: 4 mg Documented by: Sodium Chloride (0.9% Saline Lock 10 Ml Syringe) 10 - 40 ml IV UD PRN PRN Reason: SALINE FLUSH Last Admin: 01/03/20 09:04 Dose: 10 ml Documented by: Throat Lozenges (Benzocaine/Menthol 1 Lozenge) 1 lozenge MUCOUS MEM Q2H PRN PRN PRN Reason: SORE THROAT Medical Necessity - Tobacco Use Smoking Status: Current every day smoker Assessment/Plan All Active Problems (Last Reviewed 01/01/20 @ 16:[address] Josselyn Reis, DO) Pneumonia (Acute) Encephalopathy acute (Acute) Sepsis (Acute) COVID-19 (Acute) Chest pain (Acute) Atypical chest pain (Acute) Angina pectoris (Resolved) Atrial fibrillation with RVR (Resolved) Chest pain (Resolved) Hypokalemia (Resolved) Preop cardiovascular exam (Resolved) Unstable angina pectoris due to coronary arteriosclerosis (Resolved) RECOMMENDATIONS: 1. Continue to wean supplemental oxygen to maintain saturations at or above 90%. 2. Continue systemic anticoagulation and Decadron (x 10 days). 3. Continue antimicrobials per infectious diseases recommendations. 4. Encourage incentive spirometer use and mobilize patient as tolerated. 5. At this time, will sign off from a pulmonary/critical care perspective. Please call with any additional questions. IMPRESSIONS: 1. Acute hypoxic respiratory failure secondary to COVID-19 Plan to continue current supportive measures with supplemental oxygen to maintain saturations at or above 90%. The patient has already received convalescent plasma. She remains systemically anticoagulated on Eliquis and is currently receiving Decadron with plans to complete a 10-day treatment course. Antibiotics will be continued per infectious diseases recommendations. Given the overall improvement in the patient's respiratory status over the last 24 hours, I do not see an indication for remdesivir. 2. Anxiety/depression/paroxysmal A. fib/CAD/hyperlipidemia/peripheral artery disease/thrombocytopenia/hyponatremia/AAA/neuropathy Complicates care, management, recovery and prognosis. Continue home medications as indicated. This note was generated with [employer] dictation software. It may contain incorrect words, spelling, and punctuation that were not noted in checking the note before signing. Inpatient E&M: 53819 Subs Hosp L2
--- NOTE | 2020-01-03 14:54 | CON.PCM_ITS ---
Problem List (1) COVID-19 Status: Acute Reason for Consult: covid Consulted by: Dr. Newton History of Present Illness: The patient is a 69 year old F who presented with headache, diarrhea, cough with some green sputum, confusion, and change in smell. Some fever. Daughter and grandchild at home are also sick. Came to ED, admitted on dex. Feeling better. Off O2 this AM. Full ROS performed and neg except as noted above - Medical History Past Medical History (Chronic Problems): Chronic Problems (Last Reviewed 01/01/20 @ 16:[address] 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) History of coronary artery stent placement (Chronic 03/18/19) [id number] LCx and OM 03/20/99; PCI-CARMEN of distal RCA and POBA-ostium of posterolateral branch for stent jailing; PCI-CARMEN to RCA and PDA 02/20; PCI- CARMEN to ISR-RCA 04/21/2015; [id number] RPDA w/ 2.5 x 24 mm Promus Stent and Distal RCA w/ 3.0 x 16 mm Promus Stent and POBA Ostial RPLB 03/18/2019 Paroxysmal atrial fibrillation (Chronic) Acute on chronic diastolic (congestive) heart failure (Chronic) Abdominal aortic aneurysm (AAA) (Chronic) Redemonstration of infrarenal abdominal aortic aneurysm measuring up to 4.4 cm x 4.4 cm essentially similar to previous exam. 01/21/2019 Essential (primary) hypertension (Chronic) HLD (hyperlipidemia) (Chronic) Non-STEMI (non-ST elevated myocardial infarction) (Chronic 03/19/19) 04/21/2015, 03/19/2019 Peripheral vascular occlusive disease (Chronic) Bilateral SFA stents. Occluded Right SFA and angioplasty of in-stent stenosis of her left SFA. COPD (chronic obstructive pulmonary disease) (Chronic) BELLE (obstructive sleep apnea) (Chronic) Supposed to be on BiPAP Nicotine dependence (Chronic) Allergies/Adverse Reactions: Allergies lisinopril Allergy (Verified 01/01/20 08:06) tongue swelling Home Medications: Ambulatory Orders Medication Instructions Recorded Amitriptyline HCl [Elavil] 75 mg PO QHS 11/25/13 Multivitamins,Therapeutic 1 tab PO DAILY 11/25/13 [Multivitamin] nitroglycerin 0.4 mg sublingual 0.4 mg SUBLINGUAL Q5M PRN #25 tab 05/20/17 tablet ascorbic acid (vitamin C) 500 mg 500 mg PO BID cap 06/15/18 capsule albuterol sulfate 90 mcg/actuation 1 - 2 puff INHALATION Q4H PRN PRN 06/16/18 aerosol inhaler #1 inhaler Acetaminophen [Tylenol] 500 mg PO Q4H PRN PRN #20 tab 01/31/19 atorvastatin 40 mg tablet 40 mg PO QHS tab 07/09/19 dicyclomine 10 mg capsule 10 mg PO 4X/DAY 07/09/19 famotidine 20 mg tablet 20 mg PO BID 07/09/19 gabapentin 300 mg capsule 300 mg PO TID 07/09/19 Clopidogrel Bisulfate [Plavix] 75 mg PO QHS 08/30/19 Rivaroxaban [Xarelto] 20 mg PO QHS 08/30/19 isosorbide mononitrate 60 mg 60 mg PO DAILY tab 10/08/19 tablet,extended release 24 hr Amlodipine Besylate 10 mg PO DAILY 11/23/19 Aspirin E.C. [Ecotrin] 81 mg PO DAILY@199911/23/19 Carvedilol 6.25 mg PO BID 11/23/19 Cholecalciferol (Vitamin D3) 1,000 unit PO DAILY 11/23/19 [Vitamin D3] Vitamin E 400 unit PO BID 11/23/19 Hydrochlorothiazide [Hctz] 25 mg PO DAILY #30 tab 11/24/19 amiodarone 200 mg tablet 200 mg PO DAILY tab 12/15/19 duloxetine 30 mg capsule,delayed 30 mg PO DAILY 12/15/19 release Doxazosin Mesylate [Cardura] 2 mg PO QHS 01/02/20 Furosemide 40 mg PO DAILY 01/02/20 - Social History SMOKING STATUS:: Current every day smoker Vital Signs Temp Pulse Resp BP Pulse Ox 98.1 F 59 L 18 112/44 L 96 01/03/20 14:45 01/03/20 14:45 01/03/20 14:45 01/03/20 14:45 01/03/20 14:45 Oxygen Flow Rate (L/min) 2 Oxygen Delivery Method Nasal Cannula Weight: 72.6 kg Body Mass Index (BMI) 28.7 Microbiology Past 72 Hours 01/01/20 11:19 Urine Culture - Final Urine, Clean Catch Culture exhibits no growth. 01/01/20 08:25 Blood Culture - Preliminary Blood Culture (Wb) - Anticubital Left No growth in 48 hours. 01/01/20 08:25 Blood Culture - Preliminary Blood Culture (Wb) - Left Hand No growth in 48 hours. 01/01/20 12:00 Respiratory Panel (PCR) - Final Mucosa - Nose Laboratory Tests Past 24 Hrs 01/02/20 01/03/20 01/03/20 12:00 05:50 05:50 WBC 5.1 RBC 3.35 L Hgb 9.8 L Hct 30.0 L MCV 89.6 MCH 29.3 MCHC 32.7 RDW Std Deviation 43.2 RDW Coeff of Natalie 13.2 Plt Count 110 L MPV 11.9 Immature Gran % (Auto) 0.400 Neut % (Auto) 85.0 H Lymph % (Auto) 9.1 L Sequoyah % (Auto) 5.5 Eos % (Auto) 0.0 Baso % (Auto) 0.0 Absolute Neuts (auto) 4.3 Absolute Lymphs (auto) 0.46 L Nucleated RBC % 0 Differential Comment SCANNED Sodium 135 L Potassium 3.7 Chloride 103 Carbon Dioxide 25.0 Anion Gap 7 BUN 27 H Creatinine 0.82 Estim Creat Clear Calc 50.49 Est GFR (MDRD) Af Amer 88 Est GFR (MDRD) Non-Af 73 BUN/Creatinine Ratio 32.8 H Glucose 106 Calcium 8.0 L Total Bilirubin 0.60 AST 74 H ALT 55 Alkaline Phosphatase 75 Total Protein 6.4 Albumin 2.8 L Globulin 3.6 Albumin/Globulin Ratio 0.8 L Blood Type A POSITIVE Antibody Screen NEGATIVE - Other Studies Radiology: [] reviewed Other Studies: [] Route of nutrition/ use of supplements: [] Nutritional Intake: [] IV Site: [] Jones Catheter: [] - Physical Exam General: Alert, Oriented x3, Cooperative, No apparent distress HEENT: Atraumatic, PERRLA, EOMI Neck: Supple, No Nodes Lungs: Diminished Cardiovascular: Regular rate, Regular Rhythm Abdomen: Soft, Non Tender, Non-Distended Extremities: No edema Skin: No rashes IV Site: Peripheral, without redness Musculoskeletal: No Tenderness to Palpation of Joints or Extremities Neurological: Cranial nerves II-XII grossly intact - Assessment/Plan Antibiotics: [] Assessment/Plan: [] Active and Suspected Problems (Last Reviewed 01/01/20 @ 16:[address] Josselyn Reis, DO) Pneumonia (Acute) Encephalopathy acute (Acute) Sepsis (Acute) COVID-19 (Acute) Chest pain (Acute) Atypical chest pain (Acute) covid with hypoxia - on dex, feeling better, O2 much improved. Ok for discharge home to complete 10 total days of steroids. Recommended quarantine for 7 more days, and family who live with her should get tested. Will follow, thank you
--- NOTE | 2020-01-03 15:15 | CASEMGMT ---
RN CM called patient for initial transition planning/care coordination assessment. RN CM introduced self and role at [facility]. Patient is alert and oriented. Patient willing to participate in assessment and is able to answer all questions appropriately. Care providers, pharmacy, and demographics verified. Patient wishes to discharge home, denies need for home health at this time. Patient states she has no further needs or concerns at this time. CM to follow for discharge planning needs that may arise. PCP: Abigail Specialists: Francisco J, artillery specialist; Kamila engine mechanic Preferred Pharmacy: [facility] Insurance: [employer] Prescription Benefit: yes Living Will/HPOA: none LNOK: daughter Living Arrangements: Patient lives with daughter and son and in 2 story home. Patient is able to ambulate stairs and is independent at home. Transportation: self/ daughter DME/HHC: Patient states she has cane, nebulizer, bipap (but needs new supplies). Denies previous HHC or SNF Disposition Plan: Patient to discharge home with family support and follow-up plans in place. Will monitor need for home oxygen at discharge. Jacqueline CRANDALLN, RN, CM
[2020-01-03] MEDS: Famotidine 20 MG Tablet PO (21:17)
[2020-01-03] MEDS: Amitriptyline 25 MG Tablet 75 MG PO (21:18)
[2020-01-03] MEDS: Atorvastatin Calcium 40 MG Tablet PO (21:18)
[2020-01-03] MEDS: Clopidogrel Bisulfate 75 MG Tablet PO (21:18)
[2020-01-03] MEDS: Aspirin E.C. 81 MG Tablet PO (21:18)
[2020-01-04] VITALS (8 sets, daily range): BP systolic 126–157; BP diastolic 49–101; PULSE 52–72; RESP 16–18; TEMP 36.4–36.5; O2SAT 93–96
[2020-01-04] MEDS: Dicyclomine 10 MG Capsule PO ×4 (04:55→21:11)
[2020-01-04 07:31] LABS: Absolute Lymphocyte Count 0.42 X10^3/uL (0.83-4.51); Absolute Neutrophil Count 6.4 X10^3/uL (2.0-7.7); Basophil# 0.01 X10^3/uL; Basophil% 0.1 % (0-1); Lymphocyte # 0.42 X10^3/ul (4.0); Lymphocyte % 5.8 % (19-41); Mean Corp Hgb Conc 32.3 g/dL (32-36); Mean Corpuscular Hgb 29.2 pg (27.0-32.0); Mean Corpuscular Volume 90.6 fL (81-99); Mean Platelet Vol. 11.7 fl (6.2-12.0); Monocyte# 0.37 X10^3/uL; Monocyte% 5.1 % (0-10); NRBC Flagged by Analyzer 0 % (0-5); Neutrophil # 6.42 X10^3/uL (2.7-7.7); Neutrophil % 88.4 % (47-70); POSITIVE DIFFERENTIAL YES; Platelet Count 146 K/mm3 (150-450); RBC Distribution Width CV 13.2 % (11.6-14.6); RBC Distribution Width SD 43.1 fl (35.1-43.9); Red Blood Count 3.42 M/mm3 (4.2-5.4); White Blood Count 7.3 K/mm3 (4.4-11.0)
[2020-01-04 07:35] LABS: Differential Indicated SCAN CRITERIA MET
[2020-01-04 07:55] LABS: ALB/GLOB Ratio 0.8 RATIO (0.9-2.4); AST(SGOT) 97 U/L (15-37); Alanine Aminotransfer ALT/SGPT 90 U/L (13-56); Alkaline Phosphatase 82 U/L (45-117); Anion Gap 6 (5-15); BUN 24 mg/dL (7-18); BUN/Creat Ratio 30.8 RATIO (10-20); Calcium,Total 8.4 mg/dL (8.5-10.1); Chloride 105 mmol/L (98-107); Creatinine, Serum 0.78 mg/dL (0.55-1.02); EST Glomerular Filtration Rate 77 mL/min (>60); Est Glom Filt Rate - Afr Amer 94 mL/min (>60); Globulin 3.7 g/dL (2.2-4.2); Glucose 101 mg/dL (74-106); Potassium 3.7 mmol/L (3.5-5.1); Protein, Total 6.7 g/dL (6.4-8.2); Sodium Level 139 mmol/L (136-145)
[2020-01-04] MEDS: dexAMETHasone 4 MG Tablet 6 MG PO (08:48)
[2020-01-04] MEDS: Amiodarone 200 MG Tablet 100 MG PO (08:49)
[2020-01-04] MEDS: DULoxetine Hcl 30 MG Capsule PO (08:50)
[2020-01-04] MEDS: Isosorbide Mononitrate 60 MG Tablet PO (08:50)
[2020-01-04] MEDS: APIXABAN 5 MG TABLET PO ×2 (08:50→21:11)
[2020-01-04] MEDS: Carvedilol 6.25 MG Tablet PO ×2 (08:50→21:10)
[2020-01-04] MEDS: Multivitamins,Therapeutic Tablet 1 TABLET PO (08:50)
[2020-01-04] MEDS: Ascorbic Acid 500 MG Tablet PO ×2 (08:51→21:11)
[2020-01-04] MEDS: amLODIPine 10 MG Tablet PO (08:51)
--- NOTE | 2020-01-04 10:40 | PN_ITS ---
Patient Problems: Active and Suspected Problems (Last Reviewed 01/01/20 @ 16:[address] Josselyn Reis DO) Pneumonia (Acute) Encephalopathy acute (Acute) Sepsis (Acute) COVID-19 (Acute) Chest pain (Acute) Atypical chest pain (Acute) Reason for Visit: Covid 19 pneumonia Acute encephalopathy Subjective: Patient was reported to be delirious and agitated during the night. Had a discussion with patient's daughter Argelia Puri, patient has apparently had episodes of confusion in the past intermittently for the past 6 months. Did explain to patient's daughter about her mom who may be ready for discharge within a day or 2. We will involve case management regarding patient's disposition Objective: GENERAL: cooperative HEENT: Atraumatic; EYES; Anicteric, Normal Conjunctiva NECK; supple, normal thyroid, RESPIRATORY: Diminished to auscultation CARDIOVASCULAR: Regular S1 S2, GI: soft, normoactive bowel sounds, : No Renal angle tenderness; EXTREMITIES: No edema, no clubbing, MUSCULOSKELETAL: no muscle waisting NEURO: Awake; no lateralizing signs. SKIN: No Rash PSYCH; Flat affect Vitals/I&O's: Vital Signs Temp Pulse Resp BP Pulse Ox 97.7 F L 58 L 16 131/56 H 95 01/04/20 08:45 01/04/20 08:45 01/04/20 08:45 01/04/20 08:45 01/04/20 08:45 Oxygen Flow Rate (L/min) 2 Oxygen Delivery Method Room Air Weight: 72.3 kg Body Mass Index (BMI) 28.7 Intake and Output for Last 24 Hours 01/02/20 01/03/20 01/04/20 23:59 23:59 23:59 Intake Total 2570.00 / 2570.00 1410 / 1410 158.96 / 158.96 Output Total 1230 / 1230 Balance 1340.00 / 1340.00 1410 / 1410 158.96 / 158.96 Microbiology Past 72 Hours 01/01/20 11:19 Urine, Clean Catch Urine Culture - Final Culture exhibits no growth. 01/01/20 08:25 Blood Culture (Wb) - Anticubital Left Blood Culture - Preliminary No growth in 48 hours. 01/01/20 08:25 Blood Culture (Wb) - Left Hand Blood Culture - Preliminary No growth in 48 hours. 01/01/20 12:00 Mucosa - Nose Respiratory Panel (PCR) - Final Laboratory Results 01/04/20 06:34: WBC 7.3, RBC 3.42 L, Hgb 10.0 L, Hct 31.0 L, MCV 90.6, MCH 29.2, MCHC 32.3, RDW Std Deviation 43.1, RDW Coeff of Natalie 13.2, Plt Count 146 L, MPV 11.7, Immature Gran % (Auto) 0.600, Neut % (Auto) 88.4 H, Lymph % (Auto) 5.8 L, [place] % (Auto) 5.1, Eos % (Auto) 0.0, Baso % (Auto) 0.1, Absolute Neuts (auto) 6.4, Absolute Lymphs (auto) 0.42 L, Nucleated RBC % 0, Differential Comment COMMENT 01/04/20 06:34: Sodium 139, Potassium 3.7, Chloride 105, Carbon Dioxide 28.0, Anion Gap 6, BUN 24 H, Creatinine 0.78, Estim Creat Clear Calc 41.40, Est GFR (MDRD) Af Amer 94, Est GFR (MDRD) Non-Af 77, BUN/Creatinine Ratio 30.8 H, Glucose 101, Calcium 8.4 L, Total Bilirubin 0.60, AST 97 H, ALT 90 H, Alkaline Phosphatase 82, Total Protein 6.7, Albumin 3.0 L, Globulin 3.7, Albumin/Globulin Ratio 0.8 L Current Medications Acetaminophen (Acetaminophen 325 Mg Tablet) 650 mg PO Q6H PRN PRN PRN Reason: Pain Score 1-10/Temp > 100.7 F Last Admin: 01/02/20 05:25 Dose: 650 mg Documented by: Albuterol Sulfate (Albuterol 2.5 Mg/3 Ml Vial.Neb.) 2.5 mg INHALATION Q2H PRN PRN PRN Reason: Shortness of Breath/Wheezing Amiodarone HCl (Amiodarone 200 Mg Tablet) 100 mg PO DAILY [facility] Last Admin: 01/04/20 08:49 Dose: 100 mg Documented by: Amitriptyline HCl (Amitriptyline 25 Mg Tablet) 75 mg PO QHS [facility] Last Admin: 01/03/20 21:18 Dose: 75 mg Documented by: Amlodipine Besylate (Amlodipine 10 Mg Tablet) 10 mg PO DAILY [facility] Last Admin: 01/04/20 08:51 Dose: 10 mg Documented by: Amoxicillin/Clavulanate Potassium (Amox/Clavulanate 875 Mg Tablet) 875 mg PO BID [facility] Apixaban (Apixaban 5 Mg Tablet) 5 mg PO BID [facility] Last Admin: 01/04/20 08:50 Dose: 5 mg Documented by: Ascorbic Acid (Ascorbic Acid 500 Mg Tablet) 500 mg PO BID [facility] Last Admin: 01/04/20 08:51 Dose: 500 mg Documented by: Aspirin (Aspirin E.C. 81 Mg Tablet) 81 mg PO QHS [facility] Last Admin: 01/03/20 21:18 Dose: 81 mg Documented by: Atorvastatin Calcium (Atorvastatin Calcium 40 Mg Tablet) 40 mg PO QHS [facility] Last Admin: 01/03/20 21:18 Dose: 40 mg Documented by: Carvedilol (Carvedilol 6.25 Mg Tablet) 6.25 mg PO BID [facility] Last Admin: 01/04/20 08:50 Dose: 6.25 mg Documented by: Cholecalciferol (Cholecalciferol (Vit D3) 1,000 Unit (25mcg)) 1,000 unit PO DAILY [facility] Last Admin: 01/04/20 08:51 Dose: 1,000 unit Documented by: Clopidogrel Bisulfate (Clopidogrel Bisulfate 75 Mg Tablet) 75 mg PO QHS [facility] Last Admin: 01/03/20 21:18 Dose: 75 mg Documented by: Dexamethasone ([facility]ex[facility] 4 Mg Tablet) [facility] Last Admin: 01/04/20 08:48 Dose: 6 mg Documented by: Dicyclomine HCl (Dicyclomine 10 Mg Capsule) 10 mg PO 0400,1000,1600,2200 [facility] Last Admin: 01/04/20 09:36 Dose: 10 mg Documented by: Duloxetine HCl (Duloxetine Hcl 30 Mg Capsule) 30 mg PO DAILY [facility] Last Admin: 01/04/20 08:50 Dose: 30 mg Documented by: Famotidine (Famotidine 20 Mg Tablet) 20 mg PO QHS [facility] Last Admin: 01/03/20 21:17 Dose: 20 mg Documented by: Sodium Chloride () 250 mls @ 15 mls/hr IV .[id number] PRN PRN Reason: Saline Flush Sodium Chloride () 250 mls @ 15 mls/hr IV .[id number] PRN PRN Reason: Additional IVPB Infusion Isosorbide Mononitrate (Isosorbide Mononitrate 60 Mg Tablet) 60 mg PO DAILY [facility] Last Admin: 01/04/20 08:50 Dose: 60 mg Documented by: Melatonin (Melatonin 3 Mg Tablet) 3 mg PO QHS PRN PRN PRN Reason: INSOMNIA Last Admin: 01/02/20 22:54 Dose: 3 mg Documented by: Morphine Sulfate (Morphine 2 Mg/Ml Syringe) 2 mg IV Q3H PRN PRN PRN Reason: Pain Score 6-10 Multivitamins (Multivitamins,Therapeutic Tablet) 1 tablet PO DAILY [facility] Last Admin: 01/04/20 08:50 Dose: 1 tablet Documented by: Nitroglycerin (Nitroglycerin (Inpatient Use) 0.4 Mg Tab.Subl) 0.4 mg SUBLINGUAL Q5M PRN PRN Reason: .CHEST PAIN Ondansetron HCl (Ondansetron 4 Mg/2 Ml Vial) 4 mg IV Q8H PRN PRN PRN Reason: NAUSEA/VOMITING Last Admin: 01/02/20 08:42 Dose: 4 mg Documented by: Sodium Chloride (0.9% Saline Lock 10 Ml Syringe) 10 - 40 ml IV UD PRN PRN Reason: SALINE FLUSH Last Admin: 01/03/20 21:17 Dose: 10 ml Documented by: Throat Lozenges (Benzocaine/Menthol 1 Lozenge) 1 lozenge MUCOUS MEM Q2H PRN PRN PRN Reason: SORE THROAT STROKE Vital Signs/Narrative: Vital Signs Temp Pulse Resp BP Pulse Ox 01/04/20 08:45 97.7 F L 58 L 16 131/56 H 95 01/04/20 07:00 58 L Medical Necessity - Tobacco Use Smoking Status: Current every day smoker Assessment/Plan All Active Problems (Last Reviewed 01/01/20 @ 16:[address] Josselyn Reis, DO) Pneumonia (Acute) Encephalopathy acute (Acute) Sepsis (Acute) COVID-19 (Acute) Chest pain (Acute) Atypical chest pain (Acute) Angina pectoris (Resolved) Atrial fibrillation with RVR (Resolved) Chest pain (Resolved) Hypokalemia (Resolved) Preop cardiovascular exam (Resolved) Unstable angina pectoris due to coronary arteriosclerosis (Resolved) Patient is a 69-year-old lady admitted with progressive shortness of breath and assessment of acute hypoxic respiratory failure secondary to COVID-19 pneumonia made admitted to regular nursing floor for further management 1. Acute hypoxic respiratory failure ?Secondary to COVID-19 pneumonia admitted to regular nursing floor managed with noninvasive ventilation with Airvo maintain saturation greater than 94. Patient also managed with systemic anticoagulation with Eliquis as well as Decadron. Patient has been seen in consultation . Sepsis secondary to above Management as discussed above. WBC count remains elevated 3. Acute metabolic encephalopathy ?Secondary to COVID-19 infection patient level of sensorium continues to improve 4. Thrombocytopenia -Due to COVID-19 infection monitoring counts 5. Mild hyponatremia ?Sodium levels back within normal limit patient is on HCTZ at home held 6. Hypertension - Blood pressure controlled, home medications continued with dose adjustment as needed 7. Dyslipidemia -Patient is on statin therapy, continued at home dose 9. Peripheral arterial disease ?Patient is on antiplatelet 10. Paroxysmal atrial fibrillation ?Rate controlled patient is on beta-blockers as well as amiodarone in addition to systemic anticoagulation 11. COPD ?Aerosol treatments as needed 12. Obstructive sleep apnea ?BiPAP at night 13. Depression with anxiety ?Patient is on amitriptyline 14. Peripheral neuropathy ?Patient is on gabapentin apparently held in view of patient being encephalopathic on admission 15. DVT prophylaxis ?Patient is on Eliquis 16. Acute encephalopathy ?Do suspect underlying dementia with behavioral agitation prescribed Seroquel 25 mg p.o. nightly 17. Disposition ?Case management to discuss disposition with daughter. Inpatient E&M: 92076 Subs Hosp L2
--- NOTE | 2020-01-04 10:42 | CASEMGMT ---
EZEKIEL PALMER Note: Call received from physician that daughter stated her mother cannot come back to her apartment on discharge. EZEKIEL PALMER called to patient in room. Patient is confused and had difficulty giving straight answer when discussing her living arrangements. EZEKIEL PALMER was not able to ascertain if patient rents this condo or if her daughter does. EZEKIEL PALMER asked patient to contact daughter and discuss dc plans. The patient states she went out without a mask and my daughter is mad at me. -Daughter called to hospital and spoke with EZEKIEL PALMER. Daughter was informed that patient cannot stay @ hospital until COVID negative and plan would be for her to return home with daughter under COVID isolation. Discussed that daughter will need masks, gloves and wipes to clean surfaces. Daughter will contact her physician to discuss how long she and her son also need to be quarantined. Reinforced that daughter will need to be home until her quarantine is complete, so she will be there to assist her mother. Reviewed as they have only one bathroom that surfaces will need to be cleaned after each use. Daughter states she doesn't like this, but I don't have anywhere else for her to go. Reassurance given that detailed instructions would be given on dc re: isolation and quarantine. -Dr. Newton updated on above and that daughter is concerned re: patient's confusion. Plan is to start Seroquel at night. Hailee DHILLON RN ACM
[2020-01-04] MEDS: Amox/Clavulanate 875 MG Tablet PO ×2 (11:32→21:10)
--- NOTE | 2020-01-04 15:10 | PCM.PN.ID ---
Patient Problems: Active and Suspected Problems (Last Reviewed 01/01/20 @ 16:[address] Josselyn Reis DO) Pneumonia (Acute) Encephalopathy acute (Acute) Sepsis (Acute) COVID-19 (Acute) Chest pain (Acute) Atypical chest pain (Acute) Subjective: Feeling better, no fever, some cough. - Physical Exam Vitals/I&O's: Vital Signs Temp Pulse Resp BP Pulse Ox 97.7 F L 59 L 16 142/65 H 96 01/04/20 14:30 01/04/20 14:30 01/04/20 14:30 01/04/20 14:30 01/04/20 14:30 Oxygen Flow Rate (L/min) 2 Oxygen Delivery Method Room Air Weight: 72.3 kg Body Mass Index (BMI) 28.7 Intake and Output for Last 24 Hours 01/02/20 01/03/20 01/04/20 23:59 23:59 23:59 Intake Total 2570.00 / 2570.00 1410 / 1410 518.96 / 518.96 Output Total 1230 / 1230 Balance 1340.00 / 1340.00 1410 / 1410 518.96 / 518.96 General: Alert, Cooperative, No apparent distress Lungs: Clear to auscultation, Normal air movement Cardiovascular: Regular rate, Regular Rhythm Abdomen: Soft, Non Tender, Non-Distended Skin: No rashes Microbiology Past 72 Hours 01/01/20 11:19 Urine, Clean Catch Urine Culture - Final Culture exhibits no growth. 01/01/20 08:25 Blood Culture (Wb) - Anticubital Left Blood Culture - Preliminary No growth in 48 hours. 01/01/20 08:25 Blood Culture (Wb) - Left Hand Blood Culture - Preliminary No growth in 48 hours. 01/01/20 12:00 Mucosa - Nose Respiratory Panel (PCR) - Final Laboratory Results 01/04/20 06:34: WBC 7.3, RBC 3.42 L, Hgb 10.0 L, Hct 31.0 L, MCV 90.6, MCH 29.2, MCHC 32.3, RDW Std Deviation 43.1, RDW Coeff of Natalie 13.2, Plt Count 146 L, MPV 11.7, Immature Gran % (Auto) 0.600, Neut % (Auto) 88.4 H, Lymph % (Auto) 5.8 L, [place] % (Auto) 5.1, Eos % (Auto) 0.0, Baso % (Auto) 0.1, Absolute Neuts (auto) 6.4, Absolute Lymphs (auto) 0.42 L, Nucleated RBC % 0, Differential Comment COMMENT 01/04/20 06:34: Sodium 139, Potassium 3.7, Chloride 105, Carbon Dioxide 28.0, Anion Gap 6, BUN 24 H, Creatinine 0.78, Estim Creat Clear Calc 41.40, Est GFR (MDRD) Af Amer 94, Est GFR (MDRD) Non-Af 77, BUN/Creatinine Ratio 30.8 H, Glucose 101, Calcium 8.4 L, Total Bilirubin 0.60, AST 97 H, ALT 90 H, Alkaline Phosphatase 82, Total Protein 6.7, Albumin 3.0 L, Globulin 3.7, Albumin/Globulin Ratio 0.8 L Current Medications Acetaminophen (Acetaminophen 325 Mg Tablet) 650 mg PO Q6H PRN PRN PRN Reason: Pain Score 1-10/Temp > 100.7 F Last Admin: 01/02/20 05:25 Dose: 650 mg Documented by: Albuterol Sulfate (Albuterol 2.5 Mg/3 Ml Vial.Neb.) 2.5 mg INHALATION Q2H PRN PRN PRN Reason: Shortness of Breath/Wheezing Amiodarone HCl (Amiodarone 200 Mg Tablet) 100 mg PO DAILY [facility] Last Admin: 01/04/20 08:49 Dose: 100 mg Documented by: Amitriptyline HCl (Amitriptyline 25 Mg Tablet) 75 mg PO QHS [facility] Last Admin: 01/03/20 21:18 Dose: 75 mg Documented by: Amlodipine Besylate (Amlodipine 10 Mg Tablet) 10 mg PO DAILY [facility] Last Admin: 01/04/20 08:51 Dose: 10 mg Documented by: Amoxicillin/Clavulanate Potassium (Amox/Clavulanate 875 Mg Tablet) 875 mg PO BID [facility] Last Admin: 01/04/20 11:32 Dose: 875 mg Documented by: Apixaban (Apixaban 5 Mg Tablet) 5 mg PO BID [facility] Last Admin: 01/04/20 08:50 Dose: 5 mg Documented by: Ascorbic Acid (Ascorbic Acid 500 Mg Tablet) 500 mg PO BID [facility] Last Admin: 01/04/20 08:51 Dose: 500 mg Documented by: Aspirin (Aspirin E.C. 81 Mg Tablet) 81 mg PO QHS [facility] Last Admin: 01/03/20 21:18 Dose: 81 mg Documented by: Atorvastatin Calcium (Atorvastatin Calcium 40 Mg Tablet) 40 mg PO QHS [facility] Last Admin: 01/03/20 21:18 Dose: 40 mg Documented by: Carvedilol (Carvedilol 6.25 Mg Tablet) 6.25 mg PO BID [facility] Last Admin: 01/04/20 08:50 Dose: 6.25 mg Documented by: Cholecalciferol (Cholecalciferol (Vit D3) 1,000 Unit (25mcg)) 1,000 unit PO DAILY [facility] Last Admin: 01/04/20 08:51 Dose: 1,000 unit Documented by: Clopidogrel Bisulfate (Clopidogrel Bisulfate 75 Mg Tablet) 75 mg PO QHS [facility] Last Admin: 01/03/20 21:18 Dose: 75 mg Documented by: [facility]amethasone ([facility] 4 Mg Tablet) [facility] Last Admin: 01/04/20 08:48 Dose: 6 mg Documented by: Dicyclomine HCl (Dicyclomine 10 Mg Capsule) 10 mg PO 0400,1000,1600,2200 [facility] Last Admin: 01/04/20 09:36 Dose: 10 mg Documented by: Duloxetine HCl (Duloxetine Hcl 30 Mg Capsule) 30 mg PO DAILY [facility] Last Admin: 01/04/20 08:50 Dose: 30 mg Documented by: Famotidine (Famotidine 20 Mg Tablet) 20 mg PO QHS [facility] Last Admin: 01/03/20 21:17 Dose: 20 mg Documented by: Sodium Chloride () 250 mls @ 15 mls/hr IV .[id number] PRN PRN Reason: Saline Flush Sodium Chloride () 250 mls @ 15 mls/hr IV .[id number] PRN PRN Reason: Additional IVPB Infusion Isosorbide Mononitrate (Isosorbide Mononitrate 60 Mg Tablet) 60 mg PO DAILY [facility] Last Admin: 01/04/20 08:50 Dose: 60 mg Documented by: Melatonin (Melatonin 3 Mg Tablet) 3 mg PO QHS PRN PRN PRN Reason: INSOMNIA Last Admin: 01/02/20 22:54 Dose: 3 mg Documented by: Morphine Sulfate (Morphine 2 Mg/Ml Syringe) 2 mg IV Q3H PRN PRN PRN Reason: Pain Score 6-10 Multivitamins (Multivitamins,Therapeutic Tablet) 1 tablet PO DAILY [facility] Last Admin: 01/04/20 08:50 Dose: 1 tablet Documented by: Nitroglycerin (Nitroglycerin (Inpatient Use) 0.4 Mg Tab.Subl) 0.4 mg SUBLINGUAL Q5M PRN PRN Reason: .CHEST PAIN Ondansetron HCl (Ondansetron 4 Mg/2 Ml Vial) 4 mg IV Q8H PRN PRN PRN Reason: NAUSEA/VOMITING Last Admin: 01/02/20 08:42 Dose: 4 mg Documented by: Quetiapine Fumarate (Quetiapine 25 Mg Tablet) 25 mg PO QHS [facility] Sodium Chloride (0.9% Saline Lock 10 Ml Syringe) 10 - 40 ml IV UD PRN PRN Reason: SALINE FLUSH Last Admin: 01/03/20 21:17 Dose: 10 ml Documented by: Throat Lozenges (Benzocaine/Menthol 1 Lozenge) 1 lozenge MUCOUS MEM Q2H PRN PRN PRN Reason: SORE THROAT Medical Necessity - Tobacco Use Smoking Status: Current every day smoker Route of nutrition/ use of supplements: [] Nutritional Intake: [] IV Site: [] Jones Catheter: [] - Assessment/Plan Antibiotics: [] Assessment/Plan: [] Active and Suspected Problems (Last Reviewed 01/01/20 @ 16:[address] Josselyn Reis, DO) Pneumonia (Acute) Encephalopathy acute (Acute) Sepsis (Acute) COVID-19 (Acute) Chest pain (Acute) Atypical chest pain (Acute) covid with hypoxia - on dex, feeling better, O2 improved. Ok for discharge home to complete 10 total days of steroids. Recommended quarantine for 7 more days, and family who live with her should get tested. Will follow
--- NOTE | 2020-01-04 20:07 | NURSING ---
multiple people have called floor to get medical updates on pt because pt is calling her friends/family on her cell phone asking people to come and get her, instructed friends/family to call husbandry person as she has been updated and will need to discuss discharge planning with disease case manager tomorrow. pt came out of room reoriented pt and instructed her to remain in her room x2.
[2020-01-04] MEDS: Atorvastatin Calcium 40 MG Tablet PO (21:10)
[2020-01-04] MEDS: Amitriptyline 25 MG Tablet 75 MG PO (21:10)
[2020-01-04] MEDS: Clopidogrel Bisulfate 75 MG Tablet PO ×2 (21:10)
[2020-01-04] MEDS: Famotidine 20 MG Tablet PO (21:10)
[2020-01-04] MEDS: QUEtiapine 25 MG Tablet PO (21:11)
[2020-01-04] MEDS: Aspirin E.C. 81 MG Tablet PO (21:11)
[2020-01-05 03:40] VITALS: BP 168/73; PULSE 61; RESP 18; TEMP 36.3; O2SAT 93
[2020-01-05] MEDS: Dicyclomine 10 MG Capsule PO ×4 (03:54→22:12)
[2020-01-05 06:44] LABS: Absolute Lymphocyte Count 0.95 X10^3/uL (0.83-4.51); Absolute Neutrophil Count 5.4 X10^3/uL (2.0-7.7); Basophil# 0.02 X10^3/uL; Basophil% 0.3 % (0-1); Eosinophil# 0.01 X10^3/uL; Eosinophils% 0.1 % (0-5); Hematocrit 32.2 % (37-47); Hemoglobin 10.4 g/dL (12.0-15.0); Lymphocyte # 0.95 X10^3/ul (4.0); Lymphocyte % 13.7 % (19-41); Mean Corp Hgb Conc 32.3 g/dL (32-36); Mean Corpuscular Volume 89.7 fL (81-99); Mean Platelet Vol. 11.5 fl (6.2-12.0); Monocyte# 0.41 X10^3/uL; Monocyte% 5.9 % (0-10); NRBC Flagged by Analyzer 0 % (0-5); Neutrophil # 5.43 X10^3/uL (2.7-7.7); Neutrophil % 78.6 % (47-70); POSITIVE MORPHOLOGY YES; Platelet Count 177 K/mm3 (150-450); RBC Distribution Width CV 13.1 % (11.6-14.6); RBC Distribution Width SD 42.9 fl (35.1-43.9); Red Blood Count 3.59 M/mm3 (4.2-5.4); White Blood Count 6.9 K/mm3 (4.4-11.0)
[2020-01-05 06:58] LABS: Differential Indicated SCAN CRITERIA MET
[2020-01-05 07:02] LABS: Differential Comment SCANNED
[2020-01-05 07:09] LABS: ALB/GLOB Ratio 0.8 RATIO (0.9-2.4); AST(SGOT) 103 U/L (15-37); Alanine Aminotransfer ALT/SGPT 116 U/L (13-56); Albumin, Serum 2.9 g/dL (3.2-5.0); Alkaline Phosphatase 80 U/L (45-117); Anion Gap 6 (5-15); BUN 24 mg/dL (7-18); BUN/Creat Ratio 29.2 RATIO (10-20); Calcium,Total 8.5 mg/dL (8.5-10.1); Chloride 112 mmol/L (98-107); Creatinine, Serum 0.82 mg/dL (0.55-1.02); EST Glomerular Filtration Rate 73 mL/min (>60); Est Glom Filt Rate - Afr Amer 88 mL/min (>60); Estimated Creatinine Clearance 50.49 ml/min; Globulin 3.8 g/dL (2.2-4.2); Glucose 91 mg/dL (74-106); Potassium 3.7 mmol/L (3.5-5.1); Protein, Total 6.7 g/dL (6.4-8.2); Sodium Level 142 mmol/L (136-145)
--- NOTE | 2020-01-05 09:13 | NURSING ---
Daughter phones with concern about patient going home due to confusion. Wants patient placed somewhere. Consult placed for CM regarding same. Dr. Newton also made aware.
[2020-01-05 09:26] VITALS: BP 148/70; PULSE 71; RESP 17; TEMP 37.4; O2SAT 96
[2020-01-05] MEDS: dexAMETHasone 4 MG Tablet 6 MG PO (09:38)
[2020-01-05] MEDS: Amox/Clavulanate 875 MG Tablet PO ×2 (09:40→22:12)
[2020-01-05] MEDS: Amiodarone 200 MG Tablet 100 MG PO (09:41)
[2020-01-05] MEDS: DULoxetine Hcl 30 MG Capsule PO (09:42)
[2020-01-05] MEDS: Carvedilol 6.25 MG Tablet PO ×2 (09:42→22:12)
[2020-01-05] MEDS: Isosorbide Mononitrate 60 MG Tablet PO (09:42)
[2020-01-05] MEDS: APIXABAN 5 MG TABLET PO ×2 (09:42→22:12)
[2020-01-05] MEDS: Ascorbic Acid 500 MG Tablet PO ×2 (09:43→22:12)
[2020-01-05] MEDS: Multivitamins,Therapeutic Tablet 1 TABLET PO (09:43)
[2020-01-05] MEDS: amLODIPine 10 MG Tablet PO (09:43)
[2020-01-05 09:55] VITALS: O2SAT 95
--- NOTE | 2020-01-05 10:45 | PCM.PN.HOSP ---
Patient Problems: Active and Suspected Problems (Last Reviewed 01/01/20 @ 16:[address] Josselyn Reis DO) Pneumonia (Acute) Encephalopathy acute (Acute) Sepsis (Acute) COVID-19 (Acute) Chest pain (Acute) Atypical chest pain (Acute) Reason for Visit: COVID-19 pneumonia. Subjective: Patient seen still remains agitated. Did discuss with patient's daughter regarding patient being discharged home however, Patient's daughter preference will be for patient to be discharged to correction facility Objective: GENERAL: cooperative HEENT: Atraumatic; EYES; Anicteric, Normal Conjunctiva NECK; supple, normal thyroid, RESPIRATORY: Diminished to auscultation CARDIOVASCULAR: Regular S1 S2, GI: soft, normoactive bowel sounds, : No Renal angle tenderness; EXTREMITIES: No edema, no clubbing, MUSCULOSKELETAL: no muscle waisting NEURO: Awake; no lateralizing signs. SKIN: No Rash PSYCH; Flat affect Vitals/I&O's: Vital Signs Temp Pulse Resp BP Pulse Ox 99.3 F H 71 17 148/70 H 96 01/05/20 09:26 01/05/20 09:26 01/05/20 09:26 01/05/20 09:26 01/05/20 09:26 Oxygen Flow Rate (L/min) 2 Oxygen Delivery Method Room Air Weight: 72.3 kg Body Mass Index (BMI) 28.7 Intake and Output for Last 24 Hours 01/03/20 01/04/20 01/05/20 23:59 23:59 23:59 Intake Total 1410 / 1410 1868.96 / 1868.96 360 / 360 Balance 1410 / 1410 1868.96 / 1868.96 360 / 360 Microbiology Past 72 Hours 01/01/20 11:19 Urine, Clean Catch Urine Culture - Final Culture exhibits no growth. 01/01/20 08:25 Blood Culture (Wb) - Anticubital Left Blood Culture - Preliminary No growth in 48 hours. 01/01/20 08:25 Blood Culture (Wb) - Left Hand Blood Culture - Preliminary No growth in 48 hours. Laboratory Results 01/05/20 05:56: WBC 6.9, RBC 3.59 L, Hgb 10.4 L, Hct 32.2 L, MCV 89.7, MCH 29.0, MCHC 32.3, RDW Std Deviation 42.9, RDW Coeff of Natalie 13.1, Plt Count 177, MPV 11.5, Immature Gran % (Auto) 1.400 H, Neut % (Auto) 78.6 H, Lymph % (Auto) 13.7 L, [place] % (Auto) 5.9, Eos % (Auto) 0.1, Baso % (Auto) 0.3, Absolute Neuts (auto) 5.4, Absolute Lymphs (auto) 0.95, Nucleated RBC % 0, Differential Comment SCANNED 01/05/20 05:56: Sodium 142, Potassium 3.7, Chloride 112 H, Carbon Dioxide 24.0, Anion Gap 6, BUN 24 H, Creatinine 0.82, Estim Creat Clear Calc 50.49, Est GFR (MDRD) Af Amer 88, Est GFR (MDRD) Non-Af 73, BUN/Creatinine Ratio 29.2 H, Glucose 91, Calcium 8.5, Total Bilirubin 0.60, AST 103 H, ALT 116 H, Alkaline Phosphatase 80, Total Protein 6.7, Albumin 2.9 L, Globulin 3.8, Albumin/Globulin Ratio 0.8 L Current Medications Acetaminophen (Acetaminophen 325 Mg Tablet) 650 mg PO Q6H PRN PRN PRN Reason: Pain Score 1-10/Temp > 100.7 F Last Admin: 01/02/20 05:25 Dose: 650 mg Documented by: Albuterol Sulfate (Albuterol 2.5 Mg/3 Ml Vial.Neb.) 2.5 mg INHALATION Q2H PRN PRN PRN Reason: Shortness of Breath/Wheezing Amiodarone HCl (Amiodarone 200 Mg Tablet) 100 mg PO DAILY [facility] Last Admin: 01/05/20 09:41 Dose: 100 mg Documented by: Amitriptyline HCl (Amitriptyline 25 Mg Tablet) 75 mg PO QHS [facility] Last Admin: 01/04/20 21:10 Dose: 75 mg Documented by: Amlodipine Besylate (Amlodipine 10 Mg Tablet) 10 mg PO DAILY [facility] Last Admin: 01/05/20 09:43 Dose: 10 mg Documented by: Amoxicillin/Clavulanate Potassium (Amox/Clavulanate 875 Mg Tablet) 875 mg PO BID [facility] Last Admin: 01/05/20 09:40 Dose: 875 mg Documented by: Apixaban (Apixaban 5 Mg Tablet) 5 mg PO BID [facility] Last Admin: 01/05/20 09:42 Dose: 5 mg Documented by: Ascorbic Acid (Ascorbic Acid 500 Mg Tablet) 500 mg PO BID [facility] Last Admin: 01/05/20 09:43 Dose: 500 mg Documented by: Aspirin (Aspirin E.C. 81 Mg Tablet) 81 mg PO QHS [facility] Last Admin: 01/04/20 21:11 Dose: 81 mg Documented by: Atorvastatin Calcium (Atorvastatin Calcium 40 Mg Tablet) 40 mg PO QHS [facility] Last Admin: 01/04/20 21:10 Dose: 40 mg Documented by: Carvedilol (Carvedilol 6.25 Mg Tablet) 6.25 mg PO BID [facility] Last Admin: 01/05/20 09:42 Dose: 6.25 mg Documented by: Cholecalciferol (Cholecalciferol (Vit D3) 1,000 Unit (25mcg)) 1,000 unit PO DAILY [facility] Last Admin: 01/05/20 09:43 Dose: 1,000 unit Documented by: Clopidogrel Bisulfate (Clopidogrel Bisulfate 75 Mg Tablet) 75 mg PO QHS [facility] Last Admin: 01/04/20 21:10 Dose: 75 mg Documented by: Dexamethasone ([facility] 4 Mg [facility]) [facility] Last Admin: 01/05/20 09:38 Dose: 6 mg Documented by: Dicyclomine HCl (Dicyclomine 10 Mg Capsule) 10 mg PO 0400,1000,1600,2200 [facility] Last Admin: 01/05/20 09:40 Dose: 10 mg Documented by: Duloxetine HCl (Duloxetine Hcl 30 Mg Capsule) 30 mg PO DAILY [facility] Last Admin: 01/05/20 09:42 Dose: 30 mg Documented by: Famotidine (Famotidine 20 Mg Tablet) 20 mg PO QHS [facility] Last Admin: 01/04/20 21:10 Dose: 20 mg Documented by: Sodium Chloride () 250 mls @ 15 mls/hr IV .[id number] PRN PRN Reason: Saline Flush Sodium Chloride () 250 mls @ 15 mls/hr IV .[id number] PRN PRN Reason: Additional IVPB Infusion Isosorbide Mononitrate (Isosorbide Mononitrate 60 Mg Tablet) 60 mg PO DAILY [facility] Last Admin: 01/05/20 09:42 Dose: 60 mg Documented by: Melatonin (Melatonin 3 Mg Tablet) 3 mg PO QHS PRN PRN PRN Reason: INSOMNIA Last Admin: 01/02/20 22:54 Dose: 3 mg Documented by: Morphine Sulfate (Morphine 2 Mg/Ml Syringe) 2 mg IV Q3H PRN PRN PRN Reason: Pain Score 6-10 Multivitamins (Multivitamins,Therapeutic Tablet) 1 tablet PO DAILY [facility] Last Admin: 01/05/20 09:43 Dose: 1 tablet Documented by: Nitroglycerin (Nitroglycerin (Inpatient Use) 0.4 Mg Tab.Subl) 0.4 mg SUBLINGUAL Q5M PRN PRN Reason: .CHEST PAIN Ondansetron HCl (Ondansetron 4 Mg/2 Ml Vial) 4 mg IV Q8H PRN PRN PRN Reason: NAUSEA/VOMITING Last Admin: 01/02/20 08:42 Dose: 4 mg Documented by: Quetiapine Fumarate (Quetiapine 25 Mg Tablet) 25 mg PO QHS [facility] Last Admin: 01/04/20 21:11 Dose: 25 mg Documented by: Sodium Chloride (0.9% Saline Lock 10 Ml Syringe) 10 - 40 ml IV UD PRN PRN Reason: SALINE FLUSH Last Admin: 01/03/20 21:17 Dose: 10 ml Documented by: Throat Lozenges (Benzocaine/Menthol 1 Lozenge) 1 lozenge MUCOUS MEM Q2H PRN PRN PRN Reason: SORE THROAT STROKE Vital Signs/Narrative: Vital Signs Temp Pulse Resp BP Pulse Ox 01/05/20 09:26 99.3 F H 71 17 148/70 H 96 Medical Necessity - Tobacco Use Smoking Status: Current every day smoker Assessment/Plan All Active Problems (Last Reviewed 01/01/20 @ 16:[address] Josselyn Reis, DO) Pneumonia (Acute) Encephalopathy acute (Acute) Sepsis (Acute) COVID-19 (Acute) Chest pain (Acute) Atypical chest pain (Acute) Angina pectoris (Resolved) Atrial fibrillation with RVR (Resolved) Chest pain (Resolved) Hypokalemia (Resolved) Preop cardiovascular exam (Resolved) Unstable angina pectoris due to coronary arteriosclerosis (Resolved) Patient is a 69-year-old lady admitted with progressive shortness of breath and assessment of acute hypoxic respiratory failure secondary to COVID-19 pneumonia made admitted to regular nursing floor for further management 1. Acute hypoxic respiratory failure ?Secondary to COVID-19 pneumonia admitted to regular nursing floor managed with noninvasive ventilation with Airvo maintain saturation greater than 94. Patient also managed with systemic anticoagulation with Eliquis as well as Decadron. Patient has been seen in consultation ?01/05/2020; plan is for patient to be discharged home to complete a 10-day course of Decadron as well as recommended by infectious disease 2. Sepsis secondary to above Management as discussed above. WBC count remains elevated 3. Acute metabolic encephalopathy ?Secondary to COVID-19 infection patient level of sensorium continues to improve 4. Thrombocytopenia -Due to COVID-19 infection monitoring counts 5. Mild hyponatremia ?Sodium levels back within normal limit patient is on HCTZ at home held 6. Hypertension - Blood pressure controlled, home medications continued with dose adjustment as needed 7. Dyslipidemia -Patient is on statin therapy, continued at home dose 9. Peripheral arterial disease ?Patient is on antiplatelet 10. Paroxysmal atrial fibrillation ?Rate controlled patient is on beta-blockers as well as amiodarone in addition to systemic anticoagulation 11. COPD ?Aerosol treatments as needed 12. Obstructive sleep apnea ?BiPAP at night 13. Depression with anxiety ?Patient is on amitriptyline 14. Peripheral neuropathy ?Patient is on gabapentin apparently held in view of patient being encephalopathic on admission 15. DVT prophylaxis ?Patient is on Eliquis 16. Acute encephalopathy ?Do suspect underlying dementia with behavioral agitation prescribed Seroquel 25 mg p.o. nightly 17. Disposition ?Case management to discuss disposition with daughter. Inpatient E&M: 34921 Subs Hosp L2
--- NOTE | 2020-01-05 10:51 | CASEMGMT ---
Addendum entered by Therese Samuels 01/05/20 13:59: Follow up call to [facility] and left for Valorie requesting determination if they can accept pt. ARAVIND Tran Original Note: Social Work SW received referral that pt dgt is requesting placement. Phone call to Argelia Puri, pt dgt. Argelia confirms that pt does have a living will and a health care POA naming Argelia. Dgt has documentation but is unable to bring to hospital due to being in quarantine. Argelia stating that pt lives with argelia and argelia's son in a two story home. Prior to illness and hospitalization, pt was exhibiting signs of confusion and Argelia states she talked to pt PCP about possible dementia, however tests were not run by PCP prior to pt illness. Argelia does not feel pt is able to return home at this time as pt is not able to follow directions and would not be safe at home as Argelia does work and pt would be home alone. Argelia is requesting SNF placement and is uncertain if it is short term or computer terminal operator placement. [facility] informed Argelia that no facility in [facility] is able to accept covid + patients and [facility] could investigate facilities that are accepting Covid patients and in network with insurance. Argelia has no preference on facility. Phone call to [facility] who confirms that they are accepting Covid positive pt and they believe they accept pt insurance. Referral faxed to [facility] and will await determination. Plan: SNF, pending acceptance and insurance precert ARAVIND Tran
[2020-01-05 16:55] VITALS: BP 155/70; PULSE 72; RESP 18; TEMP 36.6; O2SAT 95
--- NOTE | 2020-01-05 16:57 | PN.ID_ITS ---
Patient Problems: Active and Suspected Problems (Last Reviewed 01/01/20 @ 16:[address] Josselyn Reis, DO) Pneumonia (Acute) Encephalopathy acute (Acute) Sepsis (Acute) COVID-19 (Acute) Chest pain (Acute) Atypical chest pain (Acute) Subjective: Feeling fine, says she is leaving. No fever. - Physical Exam Vitals/I&O's: Vital Signs Temp Pulse Resp BP Pulse Ox 99.3 F H 71 17 148/70 H 95 01/05/20 09:26 01/05/20 09:26 01/05/20 09:26 01/05/20 09:26 01/05/20 09:55 Oxygen Flow Rate (L/min) 2 Oxygen Delivery Method Room Air Weight: 72.3 kg Body Mass Index (BMI) 28.7 Intake and Output for Last 24 Hours 01/03/20 01/04/20 01/05/20 23:59 23:59 23:59 Intake Total 1410 / 1410 1868.96 / 1868.96 840 / 840 Balance 1410 / 1410 1868.96 / 1868.96 840 / 840 General: Alert, Cooperative, No apparent distress Lungs: Clear to auscultation, Normal air movement Cardiovascular: Regular rate, Regular Rhythm Abdomen: Soft, Non Tender, Non-Distended Skin: No rashes Microbiology Past 72 Hours 01/01/20 11:19 Urine, Clean Catch Urine Culture - Final Culture exhibits no growth. 01/01/20 08:25 Blood Culture (Wb) - Anticubital Left Blood Culture - Preliminary No growth in 48 hours. 01/01/20 08:25 Blood Culture (Wb) - Left Hand Blood Culture - Preliminary No growth in 48 hours. Laboratory Results 01/05/20 05:56: WBC 6.9, RBC 3.59 L, Hgb 10.4 L, Hct 32.2 L, MCV 89.7, MCH 29.0, MCHC 32.3, RDW Std Deviation 42.9, RDW Coeff of Natalie 13.1, Plt Count 177, MPV 11.5, Immature Gran % (Auto) 1.400 H, Neut % (Auto) 78.6 H, Lymph % (Auto) 13.7 L, [place] % (Auto) 5.9, Eos % (Auto) 0.1, Baso % (Auto) 0.3, Absolute Neuts (auto) 5.4, Absolute Lymphs (auto) 0.95, Nucleated RBC % 0, Differential Comment SCANNED 01/05/20 05:56: Sodium 142, Potassium 3.7, Chloride 112 H, Carbon Dioxide 24.0, Anion Gap 6, BUN 24 H, Creatinine 0.82, Estim Creat Clear Calc 50.49, Est GFR (MDRD) Af Amer 88, Est GFR (MDRD) Non-Af 73, BUN/Creatinine Ratio 29.2 H, Glucose 91, Calcium 8.5, Total Bilirubin 0.60, AST 103 H, ALT 116 H, Alkaline Phosphatase 80, Total Protein 6.7, Albumin 2.9 L, Globulin 3.8, Albumin/Globulin Ratio 0.8 L Current Medications Acetaminophen (Acetaminophen 325 Mg Tablet) 650 mg PO Q6H PRN PRN PRN Reason: Pain Score 1-10/Temp > 100.7 F Last Admin: 01/02/20 05:25 Dose: 650 mg Documented by: Albuterol Sulfate (Albuterol 2.5 Mg/3 Ml Vial.Neb.) 2.5 mg INHALATION Q2H PRN PRN PRN Reason: Shortness of Breath/Wheezing Amiodarone HCl (Amiodarone 200 Mg Tablet) 100 mg PO DAILY [facility] Last Admin: 01/05/20 09:41 Dose: 100 mg Documented by: Amitriptyline HCl (Amitriptyline 25 Mg Tablet) 75 mg PO QHS [facility] Last Admin: 01/04/20 21:10 Dose: 75 mg Documented by: Amlodipine Besylate (Amlodipine 10 Mg Tablet) 10 mg PO DAILY [facility] Last Admin: 01/05/20 09:43 Dose: 10 mg Documented by: Amoxicillin/Clavulanate Potassium (Amox/Clavulanate 875 Mg Tablet) 875 mg PO BID [facility] Last Admin: 01/05/20 09:40 Dose: 875 mg Documented by: Apixaban (Apixaban 5 Mg Tablet) 5 mg PO BID [facility] Last Admin: 01/05/20 09:42 Dose: 5 mg Documented by: Ascorbic Acid (Ascorbic Acid 500 Mg Tablet) 500 mg PO BID [facility] Last Admin: 01/05/20 09:43 Dose: 500 mg Documented by: Aspirin (Aspirin E.C. 81 Mg Tablet) 81 mg PO QHS [facility] Last Admin: 01/04/20 21:11 Dose: 81 mg Documented by: Atorvastatin Calcium (Atorvastatin Calcium 40 Mg Tablet) 40 mg PO QHS [facility] Last Admin: 01/04/20 21:10 Dose: 40 mg Documented by: Carvedilol (Carvedilol 6.25 Mg Tablet) 6.25 mg PO BID [facility] Last Admin: 01/05/20 09:42 Dose: 6.25 mg Documented by: Cholecalciferol (Cholecalciferol (Vit D3) 1,000 Unit (25mcg)) 1,000 unit PO ONDINA LY [facility] Last Admin: 01/05/20 09:43 Dose: 1,000 unit Documented by: Clopidogrel Bisulfate (Clopidogrel Bisulfate 75 Mg Tablet) 75 mg PO QHS [facility] Last Admin: 01/04/20 21:10 Dose: 75 mg Documented by: Dexamethasone ([facility] 4 Mg Tablet) [facility] Last Admin: 01/05/20 09:38 Dose: 6 mg Documented by: Dicyclomine HCl (Dicyclomine 10 Mg Capsule) 10 mg PO 0400,1000,1600,2200 [facility] Last Admin: 01/05/20 09:40 Dose: 10 mg Documented by: Duloxetine HCl (Duloxetine Hcl 30 Mg Capsule) 30 mg PO DAILY [facility] Last Admin: 01/05/20 09:42 Dose: 30 mg Documented by: Famotidine (Famotidine 20 Mg Tablet) 20 mg PO QHS [facility] Last Admin: 01/04/20 21:10 Dose: 20 mg Documented by: Sodium Chloride () 250 mls @ 15 mls/hr IV .[id number] PRN PRN Reason: Saline Flush Sodium Chloride () 250 mls @ 15 mls/hr IV .[id number] PRN PRN Reason: Additional IVPB Infusion Isosorbide Mononitrate (Isosorbide Mononitrate 60 Mg Tablet) 60 mg PO DAILY [facility] Last Admin: 01/05/20 09:42 Dose: 60 mg Documented by: Melatonin (Melatonin 3 Mg Tablet) 3 mg PO QHS PRN PRN PRN Reason: INSOMNIA Last Admin: 01/02/20 22:54 Dose: 3 mg Documented by: Morphine Sulfate (Morphine 2 Mg/Ml Syringe) 2 mg IV Q3H PRN PRN PRN Reason: Pain Score 6-10 Multivitamins (Multivitamins,Therapeutic Tablet) 1 tablet PO DAILY [facility] Last Admin: 01/05/20 09:43 Dose: 1 tablet Documented by: Nitroglycerin (Nitroglycerin (Inpatient Use) 0.4 Mg Tab.Subl) 0.4 mg SUBLINGUAL Q5M PRN PRN Reason: .CHEST PAIN Nutritional Formula (Lactose Free) (Ensure Enlive 120 Ml Liquid) 120 ml PO 4X/DAY [facility] Ondansetron HCl (Ondansetron 4 Mg/2 Ml Vial) 4 mg IV Q8H PRN PRN PRN Reason: NAUSEA/VOMITING Last Admin: 01/02/20 08:42 Dose: 4 mg Documented by: Quetiapine Fumarate (Quetiapine 25 Mg Tablet) 25 mg PO QHS [facility] Last Admin: 01/04/20 21:11 Dose: 25 mg Documented by: Sodium Chloride (0.9% Saline Lock 10 Ml Syringe) 10 - 40 ml IV UD PRN PRN Reason: SALINE FLUSH Last Admin: 01/03/20 21:17 Dose: 10 ml Documented by: Throat Lozenges (Benzocaine/Menthol 1 Lozenge) 1 lozenge MUCOUS MEM Q2H PRN PRN PRN Reason: SORE THROAT Medical Necessity - Tobacco Use Smoking Status: Current every day smoker Route of nutrition/ use of supplements: [] Nutritional Intake: [] IV Site: [] Jones Catheter: [] - Assessment/Plan Antibiotics: [] Assessment/Plan: [] Active and Suspected Problems (Last Reviewed 01/01/20 @ 16:[address] Josselyn Reis, DO) Pneumonia (Acute) Encephalopathy acute (Acute) Sepsis (Acute) COVID-19 (Acute) Chest pain (Acute) Atypical chest pain (Acute) covid with hypoxia - on dex, feeling better, O2 improved. Ok for discharge home to complete 10 total days of steroids. Recommended quarantine for 7 more days, and family who live with her should get tested. Stop augmentin tomorrow. Will follow
[2020-01-05 22:11] VITALS: BP 148/83; PULSE 72; RESP 18; TEMP 37.1; O2SAT 96
[2020-01-05] MEDS: Atorvastatin Calcium 40 MG Tablet PO (22:12)
[2020-01-05] MEDS: MELATONIN 3 MG TABLET PO (22:12)
[2020-01-05] MEDS: Amitriptyline 25 MG Tablet 75 MG PO (22:12)
[2020-01-05] MEDS: Famotidine 20 MG Tablet PO (22:12)
[2020-01-05] MEDS: Aspirin E.C. 81 MG Tablet PO (22:12)
[2020-01-05] MEDS: QUEtiapine 25 MG Tablet PO (22:12)
--- NOTE | 2020-01-06 01:00 | NURSING ---
Pt attempted to come out of room and when asked to shut her door she stated she was going to leave. Pt came into dee without mask on and began searching for the exit. [facility] RNs tried to redirect her back into her room and remind her that she is positive Covid and cannot be wandering around or leaving the hospital. ordered x1 IM Haldol but Pt finally went to room. Haldol not given at this time since pt stayed in room. She then continuously called the background investigator department, family members, and friends. She claimed the RN was not giving her her meds, was stealing her prescription meds and giving them to other patients, the staff was keeping the door closed at all times so noone would hear how she was being treated, etc.
--- NOTE | 2020-01-06 04:38 | NURSING ---
Pt turned lights off in room at this time. Vital signs are due and Bentyl is due to be given, but with the major irritation of the pt these will be bypassed for now.
--- NOTE | 2020-01-06 07:32 | PN_ITS ---
Patient Problems: Active and Suspected Problems (Last Reviewed 01/01/20 @ 16:[address] Josselyn Reis, DO) Pneumonia (Acute) Encephalopathy acute (Acute) Sepsis (Acute) COVID-19 (Acute) Chest pain (Acute) Atypical chest pain (Acute) Reason for Visit: Acute COVID-19 infection Subjective: She has seen still remains delirious pacing about in the hallway. Insistent on being discharged. Case management on case plans for patient to be discharged to a custodial facility per family's wishes pending insurance precertification Objective: GENERAL: Agitated HEENT: Atraumatic; EYES; Anicteric, Normal Conjunctiva NECK; supple, normal thyroid, RESPIRATORY: Diminished to auscultation CARDIOVASCULAR: Regular S1 S2, GI: soft, normoactive bowel sounds, : No Renal angle tenderness; EXTREMITIES: No edema, no clubbing, MUSCULOSKELETAL: no muscle waisting NEURO: Awake; no lateralizing signs. SKIN: No Rash PSYCH; agitated Vitals/I&O's: Vital Signs Temp Pulse Resp BP Pulse Ox 98.8 F 72 18 148/83 H 96 01/05/20 22:11 01/05/20 22:11 01/05/20 22:11 01/05/20 22:11 01/05/20 22:11 Oxygen Flow Rate (L/min) 2 Oxygen Delivery Method Room Air Weight: 72.3 kg Body Mass Index (BMI) 28.7 Intake and Output for Last 24 Hours 01/04/20 01/05/20 01/06/20 23:59 23:59 23:59 Intake Total 1868.96 / 1868.96 1200 / 1200 Balance 1868.96 / 1868.96 1200 / 1200 Microbiology Past 72 Hours 01/01/20 11:19 Urine, Clean Catch Urine Culture - Final Culture exhibits no growth. 01/01/20 08:25 Blood Culture (Wb) - Anticubital Left Blood Culture - Pre liminary No growth in 48 hours. 01/01/20 08:25 Blood Culture (Wb) - Left Hand Blood Culture - Preliminary No growth in 48 hours. Current Medications Acetaminophen (Acetaminophen 325 Mg Tablet) 650 mg PO Q6H PRN PRN PRN Reason: Pain Score 1-10/Temp > 100.7 F Last Admin: 01/02/20 05:25 Dose: 650 mg Documented by: Albuterol Sulfate (Albuterol 2.5 Mg/3 Ml Vial.Neb.) 2.5 mg INHALATION Q2H PRN PRN PRN Reason: Shortness of Breath/Wheezing Amiodarone HCl (Amiodarone 200 Mg Tablet) 100 mg PO DAILY [facility] Last Admin: 01/05/20 09:41 Dose: 100 mg Documented by: Amitriptyline HCl (Amitriptyline 25 Mg Tablet) 75 mg PO QHS [facility] Last Admin: 01/05/20 22:12 Dose: 75 mg Documented by: Amlodipine Besylate (Amlodipine 10 Mg Tablet) 10 mg PO DAILY [facility] Last Admin: 01/05/20 09:43 Dose: 10 mg Documented by: Amoxicillin/Clavulanate Potassium (Amox/Clavulanate 875 Mg Tablet) 875 mg PO BID [facility] Last Admin: 01/05/20 22:12 Dose: 875 mg Documented by: Apixaban (Apixaban 5 Mg Tablet) 5 mg PO BID [facility] Last Admin: 01/05/20 22:12 Dose: 5 mg Documented by: Ascorbic Acid (Ascorbic Acid 500 Mg Tablet) 500 mg PO BID [facility] Last Admin: 01/05/20 22:12 Dose: 500 mg Documented by: Aspirin (Aspirin E.C. 81 Mg Tablet) 81 mg PO QHS [facility] Last Admin: 01/05/20 22:12 Dose: 81 mg Documented by: Atorvastatin Calcium (Atorvastatin Calcium 40 Mg Tablet) 40 mg PO QHS [facility] Last Admin: 01/05/20 22:12 Dose: 40 mg Documented by: Carvedilol (Carvedilol 6.25 Mg Tablet) 6.25 mg PO BID [facility] Last Admin: 01/05/20 22:12 Dose: 6.25 mg Documented by: Cholecalciferol (Cholecalciferol (Vit D3) 1,000 Unit (25mcg)) 1,000 unit PO DAILY [facility] Last Admin: 01/05/20 09:43 Dose: 1,000 unit Documented by: Clopidogrel Bisulfate (Clopidogrel Bisulfate 75 Mg Tablet) 75 mg PO QHS [facility] Last Admin: 01/04/20 21:10 Dose: 75 mg Documented by: Dexamethasone ([facility] 4 Mg Tablet) [facility] Last Admin: 01/05/20 09:38 Dose: 6 mg Documented by: Dicyclomine HCl (Dicyclomine 10 Mg Capsule) 10 mg PO 0400,1000,1600,2200 [facility] Last Admin: 01/06/20 04:03 Dose: Not Given Documented by: Duloxetine HCl (Duloxetine Hcl 30 Mg Capsule) 30 mg PO DAILY [facility] Last Admin: 01/05/20 09:42 Dose: 30 mg Documented by: Famotidine (Famotidine 20 Mg Tablet) 20 mg PO QHS [facility] Last Admin: 01/05/20 22:12 Dose: 20 mg Documented by: Sodium Chloride () 250 mls @ 15 mls/hr IV .[id number] PRN PRN Reason: Saline Flush Sodium Chloride () 250 mls @ 15 mls/hr IV .[id number] PRN PRN Reason: Additional IVPB Infusion Isosorbide Mononitrate (Isosorbide Mononitrate 60 Mg Tablet) 60 mg PO DAILY [facility] Last Admin: 01/05/20 09:42 Dose: 60 mg Documented by: Melatonin (Melatonin 3 Mg Tablet) 3 mg PO QHS PRN PRN PRN Reason: INSOMNIA Last Admin: 01/05/20 22:12 Dose: 3 mg Documented by: Morphine Sulfate (Morphine 2 Mg/Ml Syringe) 2 mg IV Q3H PRN PRN PRN Reason: Pain Score 6-10 Multivitamins (Multivitamins,Therapeutic Tablet) 1 tablet PO DAILY [facility] Last Admin: 01/05/20 09:43 Dose: 1 tablet Documented by: Nitroglycerin (Nitroglycerin (Inpatient Use) 0.4 Mg Tab.Subl) 0.4 mg SUBLINGUAL Q5M PRN PRN Reason: .CHEST PAIN Nutritional Formula (Lactose Free) (Ensure Enlive 120 Ml Liquid) 120 ml PO 4X/DAY [facility] Last Admin: 01/05/20 22:12 Dose: Not Given Documented by: Ondansetron HCl (Ondansetron 4 Mg/2 Ml Vial) 4 mg IV Q8H PRN PRN PRN Reason: NAUSEA/VOMITING Last Admin: 01/02/20 08:42 Dose: 4 mg Documented by: Quetiapine Fumarate (Quetiapine 25 Mg Tablet) 25 mg PO QHS [facility] Last Admin: 01/05/20 22:12 Dose: 25 mg Documented by: Sodium Chloride (0.9% Saline Lock 10 Ml Syringe) 10 - 40 ml IV UD PRN PRN Reason: SALINE FLUSH Last Admin: 01/03/20 21:17 Dose: 10 ml Documented by: Throat Lozenges (Benzocaine/Menthol 1 Lozenge) 1 lozenge MUCOUS MEM Q2H PRN PRN PRN Reason: SORE THROAT Medical Necessity - Tobacco Use Smoking Status: Current every day smoker Assessment/Plan All Active Problems (Last Reviewed 01/01/20 @ 16:[address] Josselyn Reis, DO) Pneumonia (Acute) Encephalopathy acute (Acute) Sepsis (Acute) COVID-19 (Acute) Chest pain (Acute) Atypical chest pain (Acute) Angina pectoris (Resolved) Atrial fibrillation with RVR (Resolved) Chest pain (Resolved) Hypokalemia (Resolved) Preop cardiovascular exam (Resolved) Unstable angina pectoris due to coronary arteriosclerosis (Resolved) Patient is a 69-year-old lady admitted with progressive shortness of breath and assessment of acute hypoxic respiratory failure secondary to COVID-19 pneumonia made admitted to regular nursing floor for further management 1. Acute hypoxic respiratory failure ?Secondary to COVID-19 pneumonia admitted to regular nursing floor managed with noninvasive ventilation with Airvo maintain saturation greater than 94. Patient also managed with systemic anticoagulation with Eliquis as well as Decadron. Patient has been seen in consultation ?01/05/2020; plan is for patient to be discharged home to complete a 10-day course of Decadron as well as recommended by infectious disease ?01/05/2020; patient has remained afebrile for the past 24 hours.Plan is for patient to be transferred to a custodial facility pending insurance precertification 2. Sepsis secondary to above Management as discussed above. WBC count remains elevated 3. Acute metabolic encephalopathy ?Secondary to COVID-19 infection patient level of sensorium continues to improve 4. Thrombocytopenia -Due to COVID-19 infection monitoring counts 5. Mild hyponatremia ?Sodium levels back within normal limit patient is on HCTZ at home held 6. Hypertension - Blood pressure controlled, home medications continued with dose adjustment as needed 7. Dyslipidemia -Patient is on statin therapy, continued at home dose 9. Peripheral arterial disease ?Patient is on antiplatelet 10. Paroxysmal atrial fibrillation ?Rate controlled patient is on beta-blockers as well as amiodarone in addition to systemic anticoagulation 11. COPD ?Aerosol treatments as needed 12. Obstructive sleep apnea ?BiPAP at night 13. Depression with anxiety ?Patient is on amitriptyline 14. Peripheral neuropathy ?Patient is on gabapentin apparently held in view of patient being encephalopathic on admission 15. DVT prophylaxis ?Patient is on Eliquis 16. Acute encephalopathy ?Do suspect underlying dementia with behavioral agitation prescribed Seroquel 25 mg p.o. nightly 17. Disposition ?Case management to discuss disposition with daughter. Inpatient E&M: [id number] Subs Hosp L2
[2020-01-06 08:45] VITALS: PULSE 71; RESP 16; TEMP 37.3; O2SAT 98
--- NOTE | 2020-01-06 09:01 | CASEMGMT ---
Addendum entered by Memo Valente 01/06/20 10:22: SNF referral is being made by [facility]. See note. Original Note: RN CM Note: the patient remains confused, leaving the patient room without a mask, calling 911 per nursing and daughter has stated she cannot take care of her at home with being so confused. Per Dr. Newton, the patient has suspected underlying dementia. Call and Referral to [facility] to evaluate for need for geripsych intervention vs home due to complex discharge situation with family and patient. Hailee CRANDALLN RN ACM
--- NOTE | 2020-01-06 09:26 | CASEMGMT ---
Social Work Note Pt is medically ready for discharge. Per notes, pt is confused and was having some paranoia. [facility] placed a call to pt's daughter Argelia to continue discussion of discharge plans. [facility]O explained that pt is medically ready for discharge today. Argelia is adamant that pt is not able to return home at this time due to pt's confusion. KOKO asked Argelia if pt was having wondering behaviors or paranoia at home before this and Argelia stated no. Argelia again states her entire family doesn't feel it is safe for pt to return home. [facility]O explained that pt is walking well (150ft supervision) and that pt will likely get denied SNF. Argelia states that she spoke to pt yesterday and pt is not happy with her. Argelia states pt has already told her that pt is planning on coming home and getting in her car. Argelia states it is not safe for pt to taking her car anywhere due to pt's confusion. KOKO asked Argelia if she thought about taking pt's keys away, taking engine out of car, or placing pt's car somewhere else. Argelia states that the pt will then get really upset with her if she does that. Argelia states if you want to send her home send her home but if anything happens to her I am holding you all responsible. Argelia states I have written down every conversation I've had with staff. Argelia states I am the POA and I am saying pt cannot come home. [facility]O explained that this worker hasn't heard back from [facility] yet so this worker will follow up with [facility]. KOKO asked Argelia if [facility] is not able to accept pt if she had another choice for facility and Argelia stated no that's what the social workers at the hospital are for. KOKO explained that this worker was just asking because this worker didn't know if another SW had explored other SNF with Argelia yesterday. Argelia stated no. KOKO explained that this worker will follow up with [facility] and keep Argelia updated. Argelia states understanding. KOKO placed a call to Genet in admissions at [facility] and left message asking about referral. SW waiting for call back. Pt will need pre-cert and/or LOC under medicaid. Plan: SNF pending acceptance and pre-cert Jacqueline Diaz AXLE BEARING POLISHER, ACCOUNTS PAYABLE ASSISTANT
--- NOTE | 2020-01-06 12:11 | CASEMGMT ---
Social Work Note SW hasn't heard back from [facility] regarding referral. Per previous notes, pt's daughter Argelia has no preference in facility for pt. SW reviewed list of SNF that accept COVID positive patients. [facility] in [place]: No longer taking COVID+ pts [facility] in [place]: No Longer taking COVID+ pts [facility]: 58 minutes away from pt's listed address. They are taking COVID+ pt's and accept pt's insurance [facility]: 52 minutes away from pt's listed address. They are taking COVID+ pt's and accept [facility]'s insurance [facility] [place] [facility]: 1 hr 15 minutes away from pt's address. Not accepting COVID+ pt's at this time. [facility]: 58 minutes away from pt's address. Left message for Christina in admissions. [facility]: 57 minutes from pt's address. SW attempted to call admissions, no answer. [facility]: 1 hr 16 minutes from pt's address. They are taking COVID+ pt's but beds are limited and per Caroline with intake they are filling beds with people in the system. SW faxed both referrals to [facility] and [facility]. SW waiting for responses from facilities. Plan: SNF pending acceptance and pre-cert Jacqueline Diaz AIRCRAFT POWERPLANT REPAIRER, STRAWHAT INSPECTOR AND PACKER
[2020-01-06] MEDS: Multivitamins,Therapeutic Tablet 1 TABLET PO (13:08)
[2020-01-06] MEDS: Amiodarone 200 MG Tablet 100 MG PO (13:09)
[2020-01-06] MEDS: APIXABAN 5 MG TABLET PO ×2 (13:09→21:30)
[2020-01-06] MEDS: Carvedilol 6.25 MG Tablet PO ×2 (13:09→21:26)
[2020-01-06] MEDS: Ascorbic Acid 500 MG Tablet PO ×2 (13:10→21:25)
[2020-01-06] MEDS: DULoxetine Hcl 30 MG Capsule PO (13:10)
[2020-01-06] MEDS: amLODIPine 10 MG Tablet PO (13:10)
[2020-01-06] MEDS: Isosorbide Mononitrate 60 MG Tablet PO (13:10)
[2020-01-06] MEDS: Dicyclomine 10 MG Capsule PO ×2 (13:10→21:24)
[2020-01-06] MEDS: dexAMETHasone 4 MG Tablet 6 MG PO (13:10)
--- NOTE | 2020-01-06 13:52 | PCM.PN.ID ---
Patient Problems: Active and Suspected Problems (Last Reviewed 01/01/20 @ 16:[address] Josselyn Reis, DO) Pneumonia (Acute) Encephalopathy acute (Acute) Sepsis (Acute) COVID-19 (Acute) Chest pain (Acute) Atypical chest pain (Acute) Subjective: Breathing fine, says she's leaving - Physical Exam Vitals/I&O's: Vital Signs Temp Pulse Resp BP Pulse Ox 99.1 F 71 16 148/83 H 98 01/06/20 08:45 01/06/20 08:45 01/06/20 08:45 01/05/20 22:11 01/06/20 08:45 Oxygen Flow Rate (L/min) 2 Oxygen Delivery Method Room Air Weight: 72.3 kg Body Mass Index (BMI) 28.7 Intake and Output for Last 24 Hours 01/04/20 01/05/20 01/06/20 23:59 23:59 23:59 Intake Total 1868.96 / 1868.96 1200 / 1200 450 / 450 Balance 1868.96 / 1868.96 1200 / 1200 450 / 450 General: Alert, Cooperative, No apparent distress Lungs: Clear to auscultation, Normal air movement Cardiovascular: Regular rate, Regular Rhythm Abdomen: Soft, Non Tender, Non-Distended Skin: No rashes Microbiology Past 72 Hours 01/01/20 08:25 Blood Culture (Wb) - Anticubital Left Blood Culture - Final No growth in 5 days. 01/01/20 08:25 Blood Culture (Wb) - Left Hand Blood Culture - Final No growth in 5 days. Current Medications Acetaminophen (Acetaminophen 325 Mg Tablet) 650 mg PO Q6H PRN PRN PRN Reason: Pain Score 1-10/Temp > 100.7 F Last Admin: 01/02/20 05:25 Dose: 650 mg Documented by: Albuterol Sulfate (Albuterol 2.5 Mg/3 Ml Vial.Neb.) 2.5 mg INHALATION Q2H PRN PRN PRN Reason: Shortness of Breath/Wheezing Amiodarone HCl (Amiodarone 200 Mg Tablet) 100 mg PO DAILY [facility] Last Admin: 01/06/20 13:09 Dose: 100 mg Documented by: Amitriptyline HCl (Amitriptyline 25 Mg Tablet) 75 mg PO QHS [facility] Last Admin: 01/05/20 22:12 Dose: 75 mg Documented by: Amlodipine Besylate (Amlodipine 10 Mg Tablet) 10 mg PO DAILY [facility] Last Admin: 01/06/20 13:10 Dose: 10 mg Documented by: Apixaban (Apixaban 5 Mg Tablet) 5 mg PO BID [facility] Last Admin: 01/06/20 13:09 Dose: 5 mg Documented by: Ascorbic Acid (Ascorbic Acid 500 Mg Tablet) 500 mg PO BID [facility] Last Admin: 01/06/20 13:10 Dose: 500 mg Documented by: Aspirin (Aspirin E.C. 81 Mg Tablet) 81 mg PO QHS [facility] Last Admin: 01/05/20 22:12 Dose: 81 mg Documented by: Atorvastatin Calcium (Atorvastatin Calcium 40 Mg Tablet) 40 mg PO QHS [facility] Last Admin: 01/05/20 22:12 Dose: 40 mg Documented by: Carvedilol (Carvedilol 6.25 Mg Tablet) 6.25 mg PO BID [facility] Last Admin: 01/06/20 13:09 Dose: 6.25 mg Documented by: Cholecalciferol (Cholecalciferol (Vit D3) 1,000 Unit (25mcg)) 1,000 unit PO DAILY [facility] Last Admin: 01/06/20 13:10 Dose: 1,000 unit Documented by: Clopidogrel Bisulfate (Clopidogrel Bisulfate 75 Mg Tablet) 75 mg PO QHS [facility] Last Admin: 01/04/20 21:10 Dose: 75 mg Documented by: Dexamethasone (D[facility] 4 Mg Tablet) [facility] Last Admin: 01/06/20 13:10 Dose: 6 mg Documented by: Dicyclomine HCl (Dicyclomine 10 Mg Capsule) 10 mg PO 0400,1000,1600,2200 [facility] Last Admin: 01/06/20 13:10 Dose: 10 mg Documented by: Duloxetine HCl (Duloxetine Hcl 30 Mg Capsule) 30 mg PO DAILY [facility] Last Admin: 01/06/20 13:10 Dose: 30 mg Documented by: Famotidine (Famotidine 20 Mg Tablet) 20 mg PO QHS [facility] Last Admin: 01/05/20 22:12 Dose: 20 mg Documented by: Sodium Chloride () 250 mls @ 15 mls/hr IV .[id number] PRN PRN Reason: Saline Flush Sodium Chloride () 250 mls @ 15 mls/hr IV .[id number] PRN PRN Reason: Additional IVPB Infusion Isosorbide Mononitrate (Isosorbide Mononitrate 60 Mg Tablet) 60 mg PO DAILY [facility] Last Admin: 01/06/20 13:10 Dose: 60 mg Documented by: Melatonin (Melatonin 3 Mg Tablet) 3 mg PO QHS PRN PRN PRN Reason: INSOMNIA Last Admin: 01/05/20 22:12 Dose: 3 mg Documented by: Morphine Sulfate (Morphine 2 Mg/Ml Syringe) 2 mg IV Q3H PRN PRN PRN Reason: Pain Score 6-10 Multivitamins (Multivitamins,Therapeutic Tablet) 1 tablet PO DAILY [facility] Last Admin: 01/06/20 13:08 Dose: 1 tablet Documented by: Nitroglycerin (Nitroglycerin (Inpatient Use) 0.4 Mg Tab.Subl) 0.4 mg SUBLINGUAL Q5M PRN PRN Reason: .CHEST PAIN Nutritional Formula (Lactose Free) (Ensure Enlive 120 Ml Liquid) 120 ml PO 4X/DAY [facility] Last Admin: 01/06/20 13:12 Dose: 120 ml Documented by: Ondansetron HCl (Ondansetron 4 Mg/2 Ml Vial) 4 mg IV Q8H PRN PRN PRN Reason: NAUSEA/VOMITING Last Admin: 01/02/20 08:42 Dose: 4 mg Documented by: Quetiapine Fumarate (Quetiapine 25 Mg Tablet) 25 mg PO QHS [facility] Last Admin: 01/05/20 22:12 Dose: 25 mg Documented by: Sodium Chloride (0.9% Saline Lock 10 Ml Syringe) 10 - 40 ml IV UD PRN PRN Reason: SALINE FLUSH Last Admin: 01/03/20 21:17 Dose: 10 ml Documented by: Throat Lozenges (Benzocaine/Menthol 1 Lozenge) 1 lozenge MUCOUS MEM Q2H PRN PRN PRN Reason: SORE THROAT Medical Necessity - Tobacco Use Smoking Status: Current every day smoker Route of nutrition/ use of supplements: [] Nutritional Intake: [] IV Site: [] Jones Catheter: [] - Assessment/Plan Antibiotics: [] Assessment/Plan: [] Active and Suspected Problems (Last Reviewed 01/01/20 @ 16:[address] Josselyn Reis DO) Pneumonia (Acute) Encephalopathy acute (Acute) Sepsis (Acute) COVID-19 (Acute) Chest pain (Acute) Atypical chest pain (Acute) covid with hypoxia - on dex, feeling better, O2 improved. Ok for discharge home off of steroids. Recommended quarantine for 5 more days, and family who live with her should get tested. Stop augmentin today. Will follow as needed, d/w nursing
[2020-01-06 13:56] VITALS: O2SAT 98
--- NOTE | 2020-01-06 14:45 | PCM.TXEXTCAR ---
- Diet 01/05/20 12:53 Diet: Regular - General Food consistency:: Regular Liquid Consistency:: Regular/Thin Is pt able to select menu?: Yes - Routine Orders/Code Status Code Status: Full Code - Therapies Physical Therapy: Eval and Treat Occupational Therapy: Eval and Treat - Allergies/Procedures Done in Hospital Allergies/Adverse Reactions: Allergies lisinopril Allergy (Verified 01/01/20 08:06) tongue swelling - Type of Care/Length of Stay Estimated LOS: Convalescent Care Less Than 30 days Type of Care Needed: Skilled Rehab Potential: Good Prognosis: Good - Additional Orders/Day of Discharge Day of Discharge: 01/06/20 - Dietary and Speech Recommendations Dietitian Recommendations/Changes: Will liberalize diet to Regular and add ONS at medpass d/t pt decreased po intake and 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 - Follow Up Care Primary Care Physician: Feng Hayes MD [Primary Care Provider] - Please follow up with your Primary Care Physician in: in 2 weeks
--- NOTE | 2020-01-06 14:51 | PCM.DC.SUM ---
Discharge Date and Diagnosis - Problem List Patient Problems: Active and Suspected Problems (Last Reviewed 01/01/20 @ 16:[address] Josselyn Reis DO) Pneumonia (Acute) Encephalopathy acute (Acute) Sepsis (Acute) COVID-19 (Acute) Chest pain (Acute) Atypical chest pain (Acute) Date of Admission: 01/01/20 Date of Discharge: 01/06/20 - Primary Discharge Diagnosis Acute Problems: Active Problems (Last Reviewed 01/01/20 @ 16:[address] Josselyn Reis DO) Pneumonia (Acute) Encephalopathy acute (Acute) Sepsis (Acute) COVID-19 (Acute) Chest pain (Acute) Atypical chest pain (Acute) - Secondary Discharge Diagnosis Chronic Problems: Chronic Problems (Last Reviewed 01/01/20 @ 16:[address] Josselyn Reis DO) Smoking greater than 30 pack years (Chronic) Low-dose CT lung screening due November 2020 BELLE (obstructive sleep apnea) (Chronic) Bipap 17/13 cm of H2O Atherosclerotic heart disease of [place] coronary artery without angina pectoris (Chronic) History of coronary artery stent placement (Chronic 03/18/19) [id number] LCx and OM 03/20/99; PCI-CARMEN of distal RCA and POBA-ostium of posterolateral branch for stent jailing; PCI-CARMEN to RCA and PDA 02/20; PCI-CARMEN to ISR-RCA 04/21/2015; [id number] RPDA w/ 2.5 x 24 mm Promus Stent and Distal RCA w/ 3.0 x 16 mm Promus Stent and POBA Ostial RPLB 03/18/2019 Paroxysmal atrial fibrillation (Chronic) Acute on chronic diastolic (congestive) heart failure (Chronic) Abdominal aortic aneurysm (AAA) (Chronic) Redemonstration of infrarenal abdominal aortic aneurysm measuring up to 4.4 cm x 4.4 cm essentially similar to previous exam. 01/21/2019 Essential (primary) hypertension (Chronic) HLD (hyperlipidemia) (Chronic) Non-STEMI (non-ST elevated myocardial infarction) (Chronic 03/19/19) 04/21/2015, 03/19/2019 Peripheral vascular occlusive disease (Chronic) Bilateral SFA stents. Occluded Right SFA and angioplasty of in-stent stenosis of her left SFA. COPD (chronic obstructive pulmonary disease) (Chronic) BELLE (obstructive sleep apnea) (Chronic) Supposed to be on BiPAP Nicotine dependence (Chronic) Hospital Course and Treatment Operations: None Summary of Care Provided: Patient is a 69-year-old lady admitted with progressive shortness of breath and assessment of acute hypoxic respiratory failure secondary to COVID-19 pneumonia made admitted to regular nursing floor for further management 1. Acute hypoxic respiratory failure ?Secondary to COVID-19 pneumonia admitted to regular nursing floor managed with noninvasive ventilation with Airvo maintain saturation greater than 94. Patient also managed with systemic anticoagulation with Eliquis as well as Decadron. Patient has been seen in consultation ?01/06/2020; was transferred to a longterm facility once insurance precertification was obtained 2. Sepsis secondary to above Management as discussed above. WBC count remains elevated 3. Acute metabolic encephalopathy ?Secondary to COVID-19 infection patient level of sensorium continues to improve 4. Thrombocytopenia -Due to COVID-19 infection monitoring counts 5. Mild hyponatremia ?Sodium levels back within normal limit patient is on HCTZ at home held 6. Hypertension - Blood pressure controlled, home medications continued with dose adjustment as needed 7. Dyslipidemia -Patient is on statin therapy, continued at home dose 9. Peripheral arterial disease ?Patient is on antiplatelet 10. Paroxysmal atrial fibrillation ?Rate controlled patient is on beta-blockers as well as amiodarone in addition to systemic anticoagulation 11. COPD ?Aerosol treatments as needed 12. Obstructive sleep apnea ?BiPAP at night 13. Depression with anxiety ?Patient is on amitriptyline 14. Peripheral neuropathy ?Patient is on gabapentin apparently held in view of patient being encephalopathic on admission 15. DVT prophylaxis ?Patient is on Eliquis 16. Acute encephalopathy ?Do suspect underlying dementia with behavioral agitation prescribed Seroquel 25 mg p.o. nightly 17. Disposition ?Case management to discuss disposition with daughter. Patient Problems: Active and Suspected Problems (Last Reviewed 01/01/20 @ 16:[address] Josselyn Reis, DO) Pneumonia (Acute) Encephalopathy acute (Acute) Sepsis (Acute) COVID-19 (Acute) Chest pain (Acute) Atypical chest pain (Acute) Objective: HEENT: Atraumatic; EYES; Anicteric, Normal Conjunctiva NECK; supple, normal thyroid, RESPIRATORY: Diminished to auscultation CARDIOVASCULAR: Regular S1 S2, GI: soft, normoactive bowel sounds, : No Renal angle tenderness; EXTREMITIES: No edema, no clubbing, MUSCULOSKELETAL: no muscle waisting NEURO: Awake; no lateralizing signs. SKIN: No Rash - Physical Exam Vitals/I&O's: Vital Signs Temp Pulse Resp BP Pulse Ox 99.1 F 71 16 148/83 H 98 01/06/20 08:45 01/06/20 08:45 01/06/20 08:45 01/05/20 22:11 01/06/20 13:56 Oxygen Flow Rate (L/min) 2 Oxygen Delivery Method Room Air Weight: 72.3 kg Body Mass Index (BMI) 28.7 Intake and Output for Last 24 Hours 01/04/20 01/05/20 01/06/20 23:59 23:59 23:59 Intake Total 1868.96 / 1868.96 1200 / 1200 450 / 450 Balance 1868.96 / 1868.96 1200 / 1200 450 / 450 Microbiology Past 72 Hours 01/01/20 08:25 Blood Culture (Wb) - Anticubital Left Blood Culture - Final No growth in 5 days. 01/01/20 08:25 Blood Culture (Wb) - Left Hand Blood Culture - Final No growth in 5 days. Current Medications Acetaminophen (Acetaminophen 325 Mg Tablet) 650 mg PO Q6H PRN PRN PRN Reason: Pain Score 1-10/Temp > 100.7 F Last Admin: 01/02/20 05:25 Dose: 650 mg Documented by: Albuterol Sulfate (Albuterol 2.5 Mg/3 Ml Vial.Neb.) 2.5 mg INHALATION Q2H PRN PRN PRN Reason: Shortness of Breath/Wheezing Amiodarone HCl (Amiodarone 200 Mg Tablet) 100 mg PO DAILY [facility] Last Admin: 01/06/20 13:09 Dose: 100 mg Documented by: Amitriptyline HCl (Amitriptyline 25 Mg Tablet) 75 mg PO QHS [facility] Last Admin: 01/05/20 22:12 Dose: 75 mg Documented by: Amlodipine Besylate (Amlodipine 10 Mg Tablet) 10 mg PO DAILY [facility] Last Admin: 01/06/20 13:10 Dose: 10 mg Documented by: Apixaban (Apixaban 5 Mg Tablet) 5 mg PO BID [facility] Last Admin: 01/06/20 13:09 Dose: 5 mg Documented by: Ascorbic Acid (Ascorbic Acid 500 Mg Tablet) 500 mg PO BID [facility] Last Admin: 01/06/20 13:10 Dose: 500 mg Documented by: Aspirin (Aspirin E.C. 81 Mg Tablet) 81 mg PO QHS [facility] Last Admin: 01/05/20 22:12 Dose: 81 mg Documented by: Atorvastatin Calcium (Atorvastatin Calcium 40 Mg Tablet) 40 mg PO QHS [facility] Last Admin: 01/05/20 22:12 Dose: 40 mg Documented by: Carvedilol (Carvedilol 6.25 Mg Tablet) 6.25 mg PO BID [facility] Last Admin: 01/06/20 13:09 Dose: 6.25 mg Documented by: Cholecalciferol (Cholecalciferol (Vit D3) 1,000 Unit (25mcg)) 1,000 unit PO DAILY [facility] Last Admin: 01/06/20 13:10 Dose: 1,000 unit Documented by: Clopidogrel Bisulfate (Clopidogrel Bisulfate 75 Mg Tablet) 75 mg PO QHS [facility] Last Admin: 01/04/20 21:10 Dose: 75 mg Documented by: Dexamethasone (Dexamethasone 4 Mg Tablet) 6 mg PO DAILYCM [facility] Last Admin: 01/06/20 13:10 Dose: 6 mg Documented by: Dicyclomine HCl (Dicyclomine 10 Mg Capsule) 10 mg PO 0400,1000,1600,2200 [facility] Last Admin: 01/06/20 13:10 Dose: 10 mg Documented by: Duloxetine HCl (Duloxetine Hcl 30 Mg Capsule) 30 mg PO DAILY [facility] Last Admin: 01/06/20 13:10 Dose: 30 mg Documented by: Famotidine (Famotidine 20 Mg Tablet) 20 mg PO QHS [facility] Last Admin: 01/05/20 22:12 Dose: 20 mg Documented by: Sodium Chloride () 250 mls @ 15 mls/hr IV .[id number] PRN PRN Reason: Saline Flush Sodium Chloride () 250 mls @ 15 mls/hr IV .[id number] PRN PRN Reason: Additional IVPB Infusion Isosorbide Mononitrate (Isosorbide Mononitrate 60 Mg Tablet) 60 mg PO DAILY [facility] Last Admin: 01/06/20 13:10 Dose: 60 mg Documented by: Melatonin (Melatonin 3 Mg Tablet) 3 mg PO QHS PRN PRN PRN Reason: INSOMNIA Last Admin: 01/05/20 22:12 Dose: 3 mg Documented by: Morphine Sulfate (Morphine 2 Mg/Ml Syringe) 2 mg IV Q3H PRN PRN PRN Reason: Pain Score 6-10 Multivitamins (Multivitamins,Therapeutic Tablet) 1 tablet PO DAILY [facility] Last Admin: 01/06/20 13:08 Dose: 1 tablet Documented by: Nitroglycerin (Nitroglycerin (Inpatient Use) 0.4 Mg Tab.Subl) 0.4 mg SUBLINGUAL Q5M PRN PRN Reason: .CHEST PAIN Nutritional Formula (Lactose Free) (Ensure Enlive 120 Ml Liquid) 120 ml PO 4X/DAY [facility] Last Admin: 01/06/20 13:12 Dose: 120 ml Documented by: Ondansetron HCl (Ondansetron 4 Mg/2 Ml Vial) 4 mg IV Q8H PRN PRN PRN Reason: NAUSEA/VOMITING Last Admin: 01/02/20 08:42 Dose: 4 mg Documented by: Quetiapine Fumarate (Quetiapine 25 Mg Tablet) 25 mg PO QHS [facility] Last Admin: 01/05/20 22:12 Dose: 25 mg Documented by: Sodium Chloride (0.9% Saline Lock 10 Ml Syringe) 10 - 40 ml IV UD PRN PRN Reason: SALINE FLUSH Last Admin: 01/03/20 21:17 Dose: 10 ml Documented by: Throat Lozenges (Benzocaine/Menthol 1 Lozenge) 1 lozenge MUCOUS MEM Q2H PRN PRN PRN Reason: SORE THROAT Discharge Diet: No Restrictions Discharge Activity: Return to Normal Activity Home Medications: Medications to take at Discharge Amitriptyline HCl [Elavil] 75 mg PO QHS 11/25/13 Multivitamins,Therapeutic [Multivitamin] 1 tab PO DAILY 11/25/13 nitroglycerin 0.4 mg sublingual tablet 0.4 mg SUBLINGUAL Q5M PRN #25 tab 05/20/17 ascorbic acid (vitamin C) 500 mg capsule 500 mg PO BID cap 06/15/18 albuterol sulfate 90 mcg/actuation aerosol inhaler 1 - 2 puff INHALATION Q4H PRN PRN #1 inhaler 06/16/18 Acetaminophen [Tylenol] 500 mg PO Q4H PRN PRN #20 tab 01/31/19 atorvastatin 40 mg tablet 40 mg PO QHS tab 07/09/19 dicyclomine 10 mg capsule 10 mg PO 4X/DAY 07/09/19 famotidine 20 mg tablet 20 mg PO BID 07/09/19 gabapentin 300 mg capsule 300 mg PO TID 07/09/19 Clopidogrel Bisulfate [Plavix] 75 mg PO QHS 08/30/19 Rivaroxaban [Xarelto] 20 mg PO QHS 08/30/19 isosorbide mononitrate 60 mg tablet,extended release 24 hr 60 mg PO DAILY tab 10/08/19 Amlodipine Besylate 10 mg PO DAILY 11/23/19 Aspirin E.C. [Ecotrin] 81 mg PO DAILY@199911/23/19 Carvedilol 6.25 mg PO BID 11/23/19 Cholecalciferol (Vitamin D3) [Vitamin D3] 1,000 unit PO DAILY 11/23/19 Vitamin E 400 unit PO BID 11/23/19 amiodarone 200 mg tablet 200 mg PO DAILY tab 12/15/19 duloxetine 30 mg capsule,delayed release 30 mg PO DAILY 12/15/19 Doxazosin Mesylate [Cardura] 2 mg PO QHS 01/02/20 Ensure Enlive 120 ml PO 4X/DAY liquid 01/06/20 Melatonin 3 mg PO QHS PRN PRN tab 01/06/20 Quetiapine Fumarate [Seroquel] 25 mg PO QHS tab 01/06/20 Primary Care Physician: Feng Hayes MD [Primary Care Provider] - Please follow up with your Primary Care Physician in: in 2 weeks Disposition: Retirement facility Minutes spent on discharge:: 45 Patient Condition:: Stable Medical Necessity - Tobacco Use Smoking Status: Current every day smoker Meaningful Use Info Meaningful Use Diagnoses (Choose all that apply): None applicable Inpatient E&M: 00361 Disch Hosp
--- NOTE | 2020-01-06 15:26 | NURSING ---
removed sitter from room
--- NOTE | 2020-01-06 15:49 | CASEMGMT ---
Social Work Note KOKO received call from Hawa at [facility] [phone] stating they are able to accept pt and will submit for pre-cert. KOKO then received message from Hawa that pre-cert has been obtained and pt is able to discharge today. KOKO went down to [facility] to update staff. KOKO then updated that pt has had a sitter today. KOKO informed that the sitter wasn't due to behavior but due to the fact that pt is COVID+ and was trying to wander around the dee without a mask on and staff couldn't have pt exposing staff and other people to COVID. RN stated that if pt wasn't COVID+, they wouldn't have a sitter with pt. Pt is able to be redirected and hasn't required Haldol. The sitter is mostly for comfort and to keep pt company. KOKO spoke with Hawa at [facility] and updated her on above information. KKOO explained that pt's sitter is NOT behavioral and it is only due to the fact that pt is COVID+ and was trying to wander the halls without a mask on. KOKO explained that pt is confused, able to be redirected and hasn't required Haldol. Hawa states that pt will not be allowed to wander in the halls either at [facility] as pt could expose the rest of the hospital to COVID and since it is still considered a sitter, pt will NOT be able to admit today. Pt has to be sitter free for 24 hours. Hawa states she will update [employer] tomorrow and hopefully pre-cert will still be good. KOKO updated charge nurse and RN. KOKO placed a call to pt's daughter Argelia and updated her that pt has been accepted to [facility], pre-cert has been obtained but pt will not be able to discharge today due to pt having sitter. Argelia states understanding. KOKO received call from Jarod with [facility] stating pt's daughter had called her with concerns about pt's confusion and pt returning home. KOKO updated Jarod on plan for pt to admit to [facility]. Jarod just asked to be updated when pt discharges. KOKO updated physician on how pt will need to be sitter free for 24 hours, will not be able to discharge today. Plan: [facility]. Pt will need to be sitter free for 24 hours. Pt will not be able to get Haldol either. Jacqueline Diaz FAST FOOD MANAGER, INSTALLATION AND REPAIR TECHNICIAN
[2020-01-06 17:36] VITALS: BP 135/61; PULSE 61; RESP 16; TEMP 37.2; O2SAT 97
[2020-01-06 21:23] VITALS: BP 159/70; PULSE 63; RESP 16; TEMP 37.2; O2SAT 100
[2020-01-06] MEDS: Amitriptyline 25 MG Tablet 75 MG PO (21:25)
[2020-01-06] MEDS: QUEtiapine 25 MG Tablet PO (21:25)
[2020-01-06] MEDS: MELATONIN 3 MG TABLET PO (21:26)
[2020-01-06] MEDS: Atorvastatin Calcium 40 MG Tablet PO (21:26)
[2020-01-06] MEDS: Clopidogrel Bisulfate 75 MG Tablet PO (21:26)
[2020-01-06] MEDS: Famotidine 20 MG Tablet PO (21:26)
[2020-01-06] MEDS: Aspirin E.C. 81 MG Tablet PO (21:26)
[2020-01-07 02:52] VITALS: BP 150/70; PULSE 63; RESP 16; TEMP 37; O2SAT 99
[2020-01-07 07:05] VITALS: O2SAT 92
[2020-01-07 07:34] LABS: Absolute Lymphocyte Count 1.24 X10^3/uL (0.83-4.51); Absolute Neutrophil Count 6.8 X10^3/uL (2.0-7.7); Basophil# 0.02 X10^3/uL; Basophil% 0.2 % (0-1); Hematocrit 33.9 % (37-47); Lymphocyte # 1.24 X10^3/ul (4.0); Mean Corp Hgb Conc 32.4 g/dL (32-36); Mean Corpuscular Hgb 28.9 pg (27.0-32.0); Mean Corpuscular Volume 89.2 fL (81-99); Mean Platelet Vol. 10.1 fl (6.2-12.0); Monocyte# 0.53 X10^3/uL; NRBC Flagged by Analyzer 0 % (0-5); Neutrophil % 77.1 % (47-70); Platelet Count 275 K/mm3 (150-450); RBC Distribution Width CV 12.9 % (11.6-14.6); RBC Distribution Width SD 41.9 fl (35.1-43.9); White Blood Count 8.8 K/mm3 (4.4-11.0)
[2020-01-07] MEDS: Dicyclomine 10 MG Capsule PO (07:42)
[2020-01-07] MEDS: Amiodarone 200 MG Tablet 100 MG PO (07:42)
[2020-01-07] MEDS: Multivitamins,Therapeutic Tablet 1 TABLET PO (07:42)
[2020-01-07] MEDS: amLODIPine 10 MG Tablet PO (07:43)
[2020-01-07] MEDS: Carvedilol 6.25 MG Tablet PO (07:43)
[2020-01-07] MEDS: DULoxetine Hcl 30 MG Capsule PO (07:43)
[2020-01-07] MEDS: Ascorbic Acid 500 MG Tablet PO (07:43)
[2020-01-07] MEDS: APIXABAN 5 MG TABLET PO (07:43)
[2020-01-07] MEDS: Isosorbide Mononitrate 60 MG Tablet PO (07:43)
[2020-01-07] MEDS: dexAMETHasone 4 MG Tablet 6 MG PO (07:43)
[2020-01-07 07:46] VITALS: BP 176/73; PULSE 63; RESP 16; TEMP 37.1; O2SAT 95
[2020-01-07 08:13] LABS: ALB/GLOB Ratio 0.8 RATIO (0.9-2.4); AST(SGOT) 42 U/L (15-37); Alanine Aminotransfer ALT/SGPT 85 U/L (13-56); Albumin, Serum 3.2 g/dL (3.2-5.0); Alkaline Phosphatase 91 U/L (45-117); Anion Gap 5 (5-15); BUN 20 mg/dL (7-18); BUN/Creat Ratio 29.1 RATIO (10-20); Calcium,Total 8.8 mg/dL (8.5-10.1); Chloride 110 mmol/L (98-107); Creatinine, Serum 0.69 mg/dL (0.55-1.02); EST Glomerular Filtration Rate 90 mL/min (>60); Est Glom Filt Rate - Afr Amer 108 mL/min (>60); Globulin 3.9 g/dL (2.2-4.2); Glucose 100 mg/dL (74-106); Protein, Total 7.1 g/dL (6.4-8.2); Sodium Level 142 mmol/L (136-145)
--- NOTE | 2020-01-07 09:59 | PN_ITS ---
Patient Problems: Active and Suspected Problems (Last Reviewed 01/01/20 @ 16:[address] Josselyn Reis DO) Pneumonia (Acute) Encephalopathy acute (Acute) Sepsis (Acute) COVID-19 (Acute) Chest pain (Acute) Atypical chest pain (Acute) Reason for Visit: COVID-19 infection Subjective: Plan was for patient to have been transferred to [facility] facility however due to her agitation and patient has been set up at discharge was canceled. Plan is for patient to be transferred to the [facility] facility today if she remains calm throughout the day. Per nursing staff she had a relatively uneventful night. Objective: GENERAL: In no distress HEENT: Atraumatic; EYES; Anicteric, Normal Conjunctiva NECK; supple, normal thyroid, RESPIRATORY: Diminished to auscultation CARDIOVASCULAR: Regular S1 S2, GI: soft, normoactive bowel sounds, : No Renal angle tenderness; EXTREMITIES: No edema, no clubbing, MUSCULOSKELETAL: no muscle waisting NEURO: Awake; no lateralizing signs. SKIN: No Rash PSYCH; flat affect Vitals/I&O's: Vital Signs Temp Pulse Resp BP Pulse Ox 98.7 F 63 16 176/73 H 95 01/07/20 07:46 01/07/20 07:46 01/07/20 07:46 01/07/20 07:46 01/07/20 07:46 Oxygen Flow Rate (L/min) 2 Oxygen Delivery Method Room Air Weight: 68.4 kg Body Mass Index (BMI) 28.7 Intake and Output for Last 24 Hours 01/05/20 01/06/20 01/07/20 23:59 23:59 23:59 Intake Total 1200 / 1200 450 / 550 100 / 100 Balance 1200 / 1200 450 / 550 100 / 100 Microbiology Past 72 Hours 01/01/20 08:25 Blood Culture (Wb) - Anticubital Left Blood Culture - Final No growth in 5 days. 01/01/20 08:25 Blood Culture (Wb) - Left Hand Blood Culture - Final No growth in 5 days. Laboratory Results 01/07/20 07:08: WBC 8.8, RBC 3.80 L, Hgb 11.0 L, Hct 33.9 L, MCV 89.2, MCH 28.9, MCHC 32.4, RDW Std Deviation 41.9, RDW Coeff of Natalie 12.9, Plt Count 275, MPV 10.1, Immature Gran % (Auto) 2.700 H, Neut % (Auto) 77.1 H, Lymph % (Auto) 14.0 L, Cocke % (Auto) 6.0, Eos % (Auto) 0.0, Baso % (Auto) 0.2, Absolute Neuts (auto) 6.8, Absolute Lymphs (auto) 1.24, Nucleated RBC % 0 01/07/20 07:08: Sodium 142, Potassium 4.0, Chloride 110 H, Carbon Dioxide 27.0, Anion Gap 5, BUN 20 H, Creatinine 0.69, Estim Creat Clear Calc 41.40, Est GFR (MDRD) Af Amer 108, Est GFR (MDRD) Non-Af 90, BUN/Creatinine Ratio 29.1 H, Glucose 100, Calcium 8.8, Total Bilirubin 0.70, AST 42 H, ALT 85 H, Alkaline Phosphatase 91, Total Protein 7.1, Albumin 3.2, Globulin 3.9, Albumin/Globulin Ratio 0.8 L Current Medications Acetaminophen (Acetaminophen 325 Mg Tablet) 650 mg PO Q6H PRN PRN PRN Reason: Pain Score 1-10/Temp > 100.7 F Last Admin: 01/02/20 05:25 Dose: 650 mg Documented by: Albuterol Sulfate (Albuterol 2.5 Mg/3 Ml Vial.Neb.) 2.5 mg INHALATION Q2H PRN PRN PRN Reason: Shortness of Breath/Wheezing Amiodarone HCl (Amiodarone 200 Mg Tablet) 100 mg PO DAILY [facility] Last Admin: 01/07/20 07:42 Dose: 100 mg Documented by: Amitriptyline HCl (Amitriptyline 25 Mg Tablet) 75 mg PO QHS [facility] Last Admin: 01/06/20 21:25 Dose: 75 mg Documented by: Amlodipine Besylate (Amlodipine 10 Mg Tablet) 10 mg PO DAILY [facility] Last Admin: 01/07/20 07:43 Dose: 10 mg Documented by: Apixaban (Apixaban 5 Mg Tablet) 5 mg PO BID [facility] Last Admin: 01/07/20 07:43 Dose: 5 mg Documented by: Ascorbic Acid (Ascorbic Acid 500 Mg Tablet) 500 mg PO BID [facility] Last Admin: 01/07/20 07:43 Dose: 500 mg Documented by: Aspirin (Aspirin E.C. 81 Mg Tablet) 81 mg PO QHS [facility] Last Admin: 01/06/20 21:26 Dose: 81 mg Documented by: Atorvastatin Calcium (Atorvastatin Calcium 40 Mg Tablet) 40 mg PO QHS [facility] Last Admin: 01/06/20 21:26 Dose: 40 mg Documented by: Carvedilol (Carvedilol 6.25 Mg Tablet) 6.25 mg PO BID [facility] Last Admin: 01/07/20 07:43 Dose: 6.25 mg Documented by: Cholecalciferol (Cholecalciferol (Vit D3) 1,000 Unit (25mcg)) 1,000 unit PO DAILY [facility] Last Admin: 01/07/20 07:44 Dose: 1,000 unit Documented by: Clopidogrel Bisulfate (Clopidogrel Bisulfate 75 Mg Tablet) 75 mg PO QHS [facility] Last Admin: 01/06/20 21:26 Dose: 75 mg Documented by: Dexamethasone (Dexamethasone 4 Mg Tablet) 6 mg PO DAILYCM [facility] Last Admin: 01/07/20 07:43 Dose: 6 mg Documented by: Dicyclomine HCl (Dicyclomine 10 Mg Capsule) 10 mg PO 0400,1000,1600,2200 [facility] Last Admin: 01/07/20 07:42 Dose: 10 mg Documented by: Duloxetine HCl (Duloxetine Hcl 30 Mg Capsule) 30 mg PO DAILY [facility] Last Admin: 01/07/20 07:43 Dose: 30 mg Documented by: Famotidine (Famotidine 20 Mg Tablet) 20 mg PO QHS [facility] Last Admin: 01/06/20 21:26 Dose: 20 mg Documented by: Sodium Chloride () 250 mls @ 15 mls/hr IV .[id number] PRN PRN Reason: Saline Flush Sodium Chloride () 250 mls @ 15 mls/hr IV .[id number] PRN PRN Reason: Additional IVPB Infusion Isosorbide Mononitrate (Isosorbide Mononitrate 60 Mg Tablet) 60 mg PO DAILY [facility] Last Admin: 01/07/20 07:43 Dose: 60 mg Documented by: Melatonin (Melatonin 3 Mg Tablet) 3 mg PO QHS PRN PRN PRN Reason: INSOMNIA Last Admin: 01/06/20 21:26 Dose: 3 mg Documented by: Morphine Sulfate (Morphine 2 Mg/Ml Syringe) 2 mg IV Q3H PRN PRN PRN Reason: Pain Score 6-10 Multivitamins (Multivitamins,Therapeutic Tablet) 1 tablet PO DAILY [facility] Last Admin: 01/07/20 07:42 Dose: 1 tablet Documented by: Nitroglycerin (Nitroglycerin (Inpatient Use) 0.4 Mg Tab.Subl) 0.4 mg SUBLINGUAL Q5M PRN PRN Reason: .CHEST PAIN Nutritional Formula (Lactose Free) (Ensure Enlive 120 Ml Liquid) 120 ml PO 4X/DAY [facility] Last Admin: 01/07/20 07:55 Dose: Not Given Documented by: Ondansetron HCl (Ondansetron 4 Mg/2 Ml Vial) 4 mg IV Q8H PRN PRN PRN Reason: NAUSEA/VOMITING Last Admin: 01/02/20 08:42 Dose: 4 mg Documented by: Quetiapine Fumarate (Quetiapine 25 Mg Tablet) 25 mg PO QHS [facility] Last Admin: 01/06/20 21:25 Dose: 25 mg Documented by: Sodium Chloride (0.9% Saline Lock 10 Ml Syringe) 10 - 40 ml IV UD PRN PRN Reason: SALINE FLUSH Last Admin: 01/03/20 21:17 Dose: 10 ml Documented by: Throat Lozenges (Benzocaine/Menthol 1 Lozenge) 1 lozenge MUCOUS MEM Q2H PRN PRN PRN Reason: SORE THROAT STROKE Vital Signs/Narrative: Vital Signs Temp Pulse Resp BP Pulse Ox 01/07/20 07:46 98.7 F 63 16 176/73 H 95 Medical Necessity - Tobacco Use Smoking Status: Current every day smoker Assessment/Plan All Active Problems (Last Reviewed 01/01/20 @ 16:[address] Josselyn Reis, DO) Pneumonia (Acute) Encephalopathy acute (Acute) Sepsis (Acute) COVID-19 (Acute) Chest pain (Acute) Atypical chest pain (Acute) Angina pectoris (Resolved) Atrial fibrillation with RVR (Resolved) Chest pain (Resolved) Hypokalemia (Resolved) Preop cardiovascular exam (Resolved) Unstable angina pectoris due to coronary arteriosclerosis (Resolved) Patient is a 69-year-old lady admitted with progressive shortness of breath and assessment of acute hypoxic respiratory failure secondary to COVID-19 pneumonia made admitted to regular nursing floor for further management 1. Acute hypoxic respiratory failure ?Secondary to COVID-19 pneumonia admitted to regular nursing floor managed with noninvasive ventilation with Airvo maintain saturation greater than 94. Patient also managed with systemic anticoagulation with Eliquis as well as Decadron. Patient has been seen in consultation ?01/05/2020; plan is for patient to be discharged home to complete a 10-day course of Decadron as well as recommended by infectious disease ?01/05/2020; patient has remained afebrile for the past 24 hours.Plan is for [facility] to be transferred to a [facility] pending insurance precertification -01/07/2020; patient was approved for transfer to [facility] facility however due to her agitation the day prior to discharge was placed on hold. 2. Sepsis secondary to above Management as discussed above. WBC count remains elevated 3. Acute metabolic encephalopathy ?Secondary to COVID-19 infection patient level of sensorium continues to improve 4. Thrombocytopenia -Due to COVID-19 infection monitoring counts 5. Mild hyponatremia ?Sodium levels back within normal limit patient is on HCTZ at home held 6. Hypertension - Blood pressure controlled, home medications continued with dose adjustment as needed 7. Dyslipidemia -Patient is on statin therapy, continued at home dose 9. Peripheral arterial disease ?Patient is on antiplatelet 10. Paroxysmal atrial fibrillation ?Rate controlled patient is on beta-blockers as well as amiodarone in addition to systemic anticoagulation 11. COPD ?Aerosol treatments as needed 12. Obstructive sleep apnea ?BiPAP at night 13. Depression with anxiety ?Patient is on amitriptyline 14. Peripheral neuropathy ?Patient is on gabapentin apparently held in view of patient being encephalopathic on admission 15. DVT prophylaxis ?Patient is on Eliquis 16. Acute encephalopathy ?Do suspect underlying dementia with behavioral agitation prescribed Seroquel 25 mg p.o. nightly 17. Disposition ?Case management to discuss disposition with daughter. Inpatient E&M: 01235 Subs Hosp L2
--- NOTE | 2020-01-07 11:13 | CASEMGMT ---
Social Work KOKO spoke with RN who states pt has been without sitter since yesterday at 1500. Pt did not receive Haldol or Ativan. Nursing staff has been in and out of room frequently but pt did not require sitter. KOKO placed call to Hawa at [facility] and explained the above. Pt is able to be admitted today. Transportation arranged with [facility] for 2:00 pick and shovel worker. 7000 form completed and orders faxed to facility. Nursing updated. Phone call to pt dgt and informed of d/c plan. Dgt understanding and agreeable with d/c plan. ARAVIND Tran
--- NOTE | 2020-01-07 14:48 | NURSING ---
pt left via ambulance
== END 2020-01-07 14:48 | disposition skilled nursing facility (03) | DRG 871 ==
LOC: ED 14:35 → MS2 15:44
PROVIDERS: Internal Medicine Critical Care Medicine; Admitting Provider Internal Medicine; Emergency Provider Emergency Medicine; PCP Family Medicine; Visit Provider Internal Medicine
DX: A41.89 Other specified sepsis (principal); U07.1 COVID-19; J12.89 Other viral pneumonia; G93.41 Metabolic encephalopathy; J96.01 Acute respiratory failure with hypoxia; I50.33 Acute on chronic diastolic (congestive) heart failure; E87.1 Hypo-osmolality and hyponatremia; J44.0 Chronic obstructive pulmonary disease with (acute) lower respiratory infection; E86.1 Hypovolemia; D69.6 Thrombocytopenia, unspecified; E78.5 Hyperlipidemia, unspecified; G47.33 Obstructive sleep apnea (adult) (pediatric); F41.8 Other specified anxiety disorders; G62.9 Polyneuropathy, unspecified; I11.0 Hypertensive heart disease with heart failure; I71.4 Abdominal aortic aneurysm, without rupture; I48.0 Paroxysmal atrial fibrillation; Z95.5 Presence of coronary angioplasty implant and graft; I25.2 Old myocardial infarction; I25.10 Atherosclerotic heart disease of native coronary artery without angina pectoris; E66.9 Obesity, unspecified; Z68.28 Body mass index [BMI] 28.0-28.9, adult; Z79.01 Long term (current) use of anticoagulants; Z79.82 Long term (current) use of aspirin; Z79.899 Other long term (current) drug therapy; F17.200 Nicotine dependence, unspecified, uncomplicated; Z79.02 Long term (current) use of antithrombotics/antiplatelets
CPT/HCPCS: 36415; 36600; 71045; 80053; 81001; 82803; 83605; 83735; 84100; 84145; 84443; 84484; 85025; 85610; 85730; 86140; 86850; 86900; 86901; 87040; 87086; 87633; 87635; 87641; 93005; 94660; 94760; 94762; 97110; 97116; 97162; 97166; 97530; 97535; 99251; 99281; 99285; 99406; J7030; A4216; G0463; J1940; J2405; U0003

== ENCOUNTER 2020-03-11 03:59 | Emergency (ER) | payer MEDICARE, MEDICAID, SELFPAY ==
[2019-07-16 09:26] VITALS: BMI 29.5
[2020-03-07 11:00] VITALS: BMI 28.3
[2020-03-11 04:01] VITALS: BP 101/75; PULSE 112; RESP 18; TEMP 36; O2SAT 97; BMI 30.7
--- NOTE | 2020-03-11 04:27 | ED.VIS.GEN ---
History of Present Illness Chief Complaint: Lower Extremity Injury Narrative: This patient is a 70-year-old female who presents with a bleeding wound. She got up out of bed and excellently kicked the floor with her right great toe. She has had bleeding since that time which she was unable to control so contacted EMS and was brought here. She is on aspirin, Plavix, Xarelto. She does complain of pain at the toe. No other recent illness. No fevers cough vomiting diarrhea. Past Medical History - Allergies and Home Meds Allergies/Adverse Reactions: Allergies lisinopril Allergy (Verified 03/11/20 04:01) tongue swelling Primary Care Physician: Feng Hayes MD [Primary Care Provider] - Past Medical History: - - Coronary artery disease, atrial fibrillation Surgical History: noncontributory, - - LE intervention for PAD per Dr. Gar, cardiac catheterizations w/ total PCI x 7, Lower back injections, DIOMEDES, T+A, R foot surgery. Smoking Status: Current every day smoker - Family History Maternal Family History: Family History (Last Reviewed 02/02/20 @ 12:33 by Yoanna Gonzales) Father Heart disease Hypertension Seizures Sister CVA (cerebral vascular accident) Hypertension Other Family history of hypertension Family History: Reports: Diabetes, High Cholesterol, Heart Disease, Hypertension, Stroke Paternal Family History: Family History (Last Reviewed 02/02/20 @ 12:33 by Yoanna Gonzales) Father Heart disease Hypertension Seizures Sister CVA (cerebral vascular accident) Hypertension Other Family history of hypertension Family History: Reports: Diabetes, High Cholesterol, Heart Disease, Hypertension, Stroke Review of Systems All systems negative except as indicated General: Denies: Fever Eyes: Denies: Visual changes - bilaterally ENT: Denies: Bilateral ear pain Cardiovascular: Denies: Chest pain Gastrointestinal: Denies: Vomiting, Diarrhea Musculoskeletal: Denies: Myalgias Skin: Reports: Wounds. Denies: Rash Neurological: Denies: Headache Hematologic: Reports: Easy bruising, Easy bleeding Physical Exam Vital Signs/Narrative: Vital Signs Temp Pulse Resp BP Pulse Ox 03/11/20 04:01 96.8 F L 112 H 18 101/75 97 Inital Vital Signs reviewed: Yes General: Well nourished Head: Normocephalic Eyes: EOMI ENT: Moist mucous membranes Neck: Supple Cardiovascular: Regular rhythm, Tachycardia Respiratory: No distress Extremities: - - There is a 1 cm laceration over the superior medial aspect of the right great toe at the level of the nail fold. The nail itself is not avulsed. Laceration extends from the nail fold. Brisk capillary refill distally sensation intact light touch Skin: Normal color Neurological: Alert Psychological: Normal affect Diagnostic/Tx/Re-eval - Medical Decision Making Patient underwent a digital block with 1% lidocaine without epinephrine. Good anesthesia was achieved. Tourniquet applied with a rubber band and hemostat. Hemostasis achieved. Wound was cleansed with sterile saline. A single 4?0 nonabsorbable suture was placed. Hemostatic dressing applied. After the rubber band was removed bleeding appears to be controlled. 3 view toe x-ray was obtained. On my interpretation this shows a fracture at the medial and proximal portion of the distal phalanx of the first toe of the right foot. Toes will be ekaterina taped and patient will be given a postoperative shoe. Given that she does have an overlying laceration we will cover with oral antibiotics as this may communicate is an open fracture. Patient was referred to orthopedics. ED Disposition - Plan for ED Patient: Disposition: Home or Assisted Living Diagnosis: Toe fracture, Toe laceration Instructions: ED Fracture, Toe, Open, ED Laceration: All Closures Prescriptions: Cephalexin [Keflex] 500 mg PO Q6 #40 cap Prescription Printed Hydrocodone Bitart/Apap 5-325 [[place] 5MG-325MG] 1 tab PO Q6H PRN PRN 3 Days #10 tab PRN Reason: Pain Prescription Printed Referrals: Feng Hayes MD [Primary Care Provider] - Brian Carlson DO [STAFF PHYSICIAN] -
--- NOTE | 2020-03-11 04:30 | RAD_ITS ---
STUDY: X-RAY RIGHT FOOT, THE GREAT TOE REASON FOR EXAM: Female, 70 years old patient with right-sided great toe injury. There is uncontrolled bleeding. TECHNIQUE: 3 view(s) of the toe were obtained. COMPARISON: Radiographs of the right foot dated 04/14/2016. FINDINGS: There is demineralization of the metatarsus. Patient appears to have had previous surgery of the first metatarsal possibly secondary to osteotomy. There is arthrosis of the metatarsophalangeal (M.T.P.) joint. There is arthrosis of the interphalangeal joint. There appears to be an intra-articular fracture of the distal phalanx of the hallux. The proximal phalanx appears to be intact. There is soft tissue swelling of the hallux. RAD/Toe(s) Min 2 Views IMPRESSION: 1. Acute fracture distal phalanx of the hallux with associated soft tissue contusion. 2. Osteoporosis. 3. Moderately severe degenerative arthropathy at the first metatarsophalangeal joint. Electronically Signed: Tiki Luevano MD at 4:57 EST , Service support ,
[2020-03-11 05:10] VITALS: RESP 16
[2020-03-11] MEDS: Cephalexin 250 MG Capsule 500 MG PO (05:12)
[2020-03-11] MEDS: Lidocaine 2% (20 ml mdv) 20 ML Vial 10 ML INFILT (05:25)
== END 2020-03-11 06:27 | disposition home or self-care (01) ==
PROVIDERS: Emergency Provider Emergency Medicine; PCP Family Medicine
DX: S92.421A Displaced fracture of distal phalanx of right great toe, initial encounter for closed fracture (principal); S91.111A Laceration without foreign body of right great toe without damage to nail, initial encounter; W22.09XA Striking against other stationary object, initial encounter; Y93.9 Activity, unspecified; Y92.9 Unspecified place or not applicable; I25.10 Atherosclerotic heart disease of native coronary artery without angina pectoris; I48.91 Unspecified atrial fibrillation; Z79.82 Long term (current) use of aspirin; Z79.01 Long term (current) use of anticoagulants; Z79.02 Long term (current) use of antithrombotics/antiplatelets; Z79.899 Other long term (current) drug therapy; F17.200 Nicotine dependence, unspecified, uncomplicated
CPT/HCPCS: 12001; 73660; 99285

== ENCOUNTER → 2020-03-15 20:03 | Outpatient (CLI) | payer MEDICARE, MEDICAID, SELFPAY ==
[2019-07-16 09:26] VITALS: BMI 29.5
[2020-02-02 12:50] VITALS: BMI 29.9
[2020-03-11 04:01] VITALS: BMI 30.7
== END ==
PROVIDERS: PCP Family Medicine; Visit Provider Nurse Practitioner Acute Care
DX: G47.33 Obstructive sleep apnea (adult) (pediatric) (principal)
CPT/HCPCS: 95811

== ENCOUNTER 2020-03-27 14:06 | Inpatient (IN) | payer MEDICARE, MEDICAID, SELFPAY ==
[2019-07-16 09:26] VITALS: BMI 29.5
--- NOTE | 2020-03-20 16:09 | RAD_ITS ---
STUDY: X-RAY CHEST REASON FOR EXAM: Female, 70 years old. PRE-OP CHEST XRAY FOR PACEMAKER PLACEMENT FRIDAY. TECHNIQUE: PA and lateral views of the chest. COMPARISON: 11/23/2019 FINDINGS: The lungs are clear and expanded. There is no demonstrated pleural abnormality. Normal size heart. Normal mediastinum and artis. Normal visualized pulmonary arteries. Normal visualized aortic arch and descending thoracic aorta. Normal visualized thoracic spine. Normal visualized ribs, clavicles, and shoulders. There is no demonstrated abnormality of the visualized soft tissue structures of the upper abdomen. RAD/Chest PA and Lateral IMPRESSION: Normal x-ray examination of the chest. Electronically Signed: Daniel Kimbrough MD at 16:26 EST Tel , Service support ,
[2020-03-20 16:33] LABS: Bacteria 0 SEEN /hpf (None Seen); Mucous, Urine 0 SEEN /hpf (<or=2+); Red Blood Cells-Urine 0 SEEN /hpf (0-5); Squamous Epithelial Cells - UA 0 SEEN /hpf (5-10); White Blood Cells 0 SEEN /hpf (0-5)
[2020-03-20 17:18] LABS: Hematocrit 32.7 % (37-47); Hemoglobin 11.2 g/dL (12.0-15.0); Mean Corp Hgb Conc 34.3 g/dL (32-36); Mean Corpuscular Hgb 29.5 pg (27.0-32.0); Mean Corpuscular Volume 86.1 fL (81-99); Mean Platelet Vol. 11.1 fl (6.2-12.0); Platelet Count 246 K/mm3 (150-450); RBC Distribution Width SD 38.9 fl (35.1-43.9); White Blood Count 5.9 K/mm3 (4.4-11.0)
[2020-03-20 17:25] LABS: International Normalized Ratio 1.7
[2020-03-20 17:31] LABS: Color, Urine Yellow (Yellow); Glucose, Dipstick Normal (Normal); Ketone-Dipstick Negative (Negative); Leukocyte Esterase-Dipstick Negative /ul (Negative); Nitrite-Dipstick Negative (Negative); Occult Blood-Urine Negative /ul (Negative); Protein-Dipstick Negative (Negative); Urine Bilirubin Dipstick Negative (Negative); Urine Clarity Clear (Clear); Urine Urobilinogen Normal (Normal)
[2020-03-20 18:07] LABS: Anion Gap 8 (5-15); BUN 43 mg/dL (7-18); BUN/Creat Ratio 33.9 RATIO (10-20); Chloride 96 mmol/L (98-107); Creatinine, Serum 1.27 mg/dL (0.55-1.02); EST Glomerular Filtration Rate 44 mL/min (>60); Est Glom Filt Rate - Afr Amer 53 mL/min (>60); Glucose 111 mg/dL (74-106); Potassium 2.9 mmol/L (3.5-5.1); Sodium Level 136 mmol/L (136-145)
[2020-03-24 08:54] VITALS: BMI 28.3
[2020-03-27] VITALS (15 sets, daily range): BP systolic 102–117; BP diastolic 71–83; PULSE 102–122; RESP 18–20; TEMP 36.5–37.1; O2SAT 94–99; BMI 28.3
--- NOTE | 2020-03-27 05:00 | HP_ITS ---
HPI HPI History of Present Illness Details: This is a 70-year-old female that presents here today for a hospital follow-up. She has a history of paroxysmal atrial fibrillation, coronary artery disease with angioplasty and stenting of her RCA and angioplasty of her first obtuse marginal and hyperlipidemia. Her last percutaneous intervention was in 2015. In March 2019 she underwent stenting of the posterior descending as well as the right posterior lateral. She also has a history of hypertension. She also has a history of peripheral arterial disease and apparently scheduled to undergo surgery on her right superficial femoral artery. Following her stenting she had complained of shortness of breath. Echocardiogram demonstrated an EF of 50%. She also had a 9-second pause after her beta-declan dose had been increased it was reduced and this resulted in a 5-second pause this was discontinued and she was observed in the hospital for a few days with no other significant abnormalities. The plan was for her to continue the amiodarone, the beta-declan was discontinued. However the BB was restarted. In June during a phone visit we stopped her metoprolol and started coreg to help with better BP control. In November she was noted to have bradycardia, her amiodarone was decreased. We obtain a 30 day event monitor a 4.4 second pause was noted, her amiodarone was stopped. She was in the hospital in December for COVID pneumonia and acute metabolic encephalopathy and spent a few weeks in a SNF. She returns today for a f/u. EKG today demonstrated Atrial fib with a HR of 145. Since being home she has had occasional chest pain. These episodes are vague in her description. She has not needed any NTG. She feels her breathing has been okay. She has noticed Afib episodes. She is not aware of it at this moment. She notices these a few times a day. She does not check her HR at home. She does not have a pulse oximeter or Bp cuff at home. She does have lightheadedness/dizziness- she notes that this is with walking steps and positional changes. She does not have any edema. She does have an appt for a sleep study next week. Intake Vital Signs 03/07/20 Height 5 ft 2 in 03/07/20 Weight: 155 lb 03/07/20 BMI 28.3 03/07/20 BP 111/74 03/07/20 Blood Pressure Location Lt brachial 03/07/20 Position Sitting 03/07/20 Respiration 18 03/07/20 Pulse 119 H 03/07/20 Pulse Source Monitor 03/07/20 Pulse Oximetry (%) 98 Intake Visit Reasons: 6 wk fu Certified Personal Trainer Required: No Accompanied by: None Is patient in pain?: No Allergies lisinopril Allergy (Verified 03/07/20 10:58) tongue swelling Medications Amitriptyline HCl [Elavil] 75 mg PO QHS 11/25/13 [History Confirmed 03/07/20] Multivitamins,Therapeutic [Multivitamin] 1 tab PO DAILY 11/25/13 [History Confirmed 03/07/20] nitroglycerin 0.4 mg sublingual tablet 0.4 mg SUBLINGUAL Q5M PRN #25 tab 05/20/17 [Rx Confirmed 03/07/20] albuterol sulfate 90 mcg/actuation aerosol inhaler 1 - 2 puff INHALATION Q4H PRN PRN #1 inhaler 06/16/18 [Rx Confirmed 03/07/20] Acetaminophen [Tylenol] 500 mg PO Q4H PRN PRN #20 tab 01/31/19 [Rx Confirmed 03/07/20] atorvastatin 40 mg tablet 40 mg PO QHS tab 07/09/19 [History Confirmed 03/07/20] dicyclomine 10 mg capsule 10 mg PO 4X/DAY 07/09/19 [History Confirmed 03/07/20] famotidine 20 mg tablet 20 mg PO BID 07/09/19 [History Confirmed 03/07/20] gabapentin 300 mg capsule 300 mg PO TID 07/09/19 [History Confirmed 03/07/20] Clopidogrel Bisulfate [Plavix] 75 mg PO QHS 08/30/19 [History Confirmed 03/07/20] Rivaroxaban [Xarelto] 20 mg PO QHS 08/30/19 [History Confirmed 03/07/20] isosorbide mononitrate 60 mg tablet,extended release 24 hr 60 mg PO DAILY tab 10/08/19 [History Confirmed 03/07/20] Aspirin E.C. [Ecotrin] 81 mg PO DAILY@199911/23/19 [History Confirmed 03/07/20] duloxetine 30 mg capsule,delayed release 30 mg PO DAILY 12/15/19 [History Confirmed 03/07/20] Doxazosin Mesylate [Cardura] 2 mg PO QHS 01/02/20 [History Confirmed 03/07/20] Melatonin 3 mg PO QHS PRN PRN tab 01/06/20 [Rx Confirmed 03/07/20] hydrochlorothiazide 25 mg tablet 25 mg PO DAILY tab 02/02/20 [History Confirmed 03/07/20] amlodipine 10 mg tablet 10 mg PO DAILY 03/07/20 [History Confirmed 03/07/20] carvedilol 12.5 mg tablet 12.5 mg PO BID #60 tab 03/07/20 [Rx Confirmed 03/07/20] furosemide 20 mg tablet 40 mg PO DAILY tab 03/07/20 [History Confirmed 03/07/20] rotigotine 1 mg/24 hour transdermal 24 hour patch 2 mg TOPICAL DAILY ea 03/07/20 [History Confirmed 03/07/20] [facility] Medical History (Updated 03/08/20 @ 09:35 by Anuja Gaviria) Pneumonia due to 2019 novel coronavirus (Resolved 01/01/20) COVID-19 (Chronic 01/01/20) COPD (chronic obstructive pulmonary disease) (Chronic) BELLE (obstructive sleep apnea) (Chronic) Smoking greater than 30 pack years (Chronic) Nicotine dependence (Chronic) Atherosclerotic heart disease of [place] coronary artery without angina pectoris (Chronic) Paroxysmal atrial fibrillation (Chronic) Acute on chronic diastolic (congestive) heart failure (Chronic) Abdominal aortic aneurysm (AAA) (Chronic) Essential (primary) hypertension (Chronic) HLD (hyperlipidemia) (Chronic) Non-STEMI (non-ST elevated myocardial infarction) (Chronic 03/19/19) Peripheral vascular occlusive disease (Chronic) Anxiety and depression (Chronic) Claudication in peripheral vascular disease (Chronic) Emphysema of lung (Chronic) IBS (irritable bowel syndrome) (Chronic) Obesity (Chronic) Angina pectoris (Resolved) Atrial fibrillation with RVR (Resolved) Hypokalemia (Resolved) Sepsis (Resolved 01/01/20) Unstable angina pectoris due to coronary arteriosclerosis (Resolved) Dyspnea on exertion (Inactive) PAD (peripheral artery disease) (Inactive) Wheezing (Inactive) Surgical History History of coronary artery stent placement (Chronic 03/18/19) History of angioplasty of peripheral vessel (Resolved) History of bilateral leg stents (Resolved) History of bunionectomy of right great toe (Resolved) History of colonoscopy (Resolved ~06/2018) History of hysterectomy (Resolved) History of left heart catheterization (Resolved 11/25/19) History of tonsillectomy (Resolved) Hx of APLL (Resolved) Hx of hysterectomy (Resolved) Status post left foot surgery (Resolved) Family History Father Heart disease Hypertension Seizures Sister CVA (cerebral vascular accident) Hypertension Other Family history of hypertension Social History (Updated 03/08/20 @ 15:21 by Evelyn Collier PA, PA) Smoking Status: Current every day smoker second hand exposure: No alcohol intake: never substance use type: does not use caffeine: Yes what type of physical activity do you participate in: none Cardiology Exam Const Appearance: cooperative, healthy appearing, no acute distress, well developed and well groomed Nutritional Appearance: average body habitus and well nourished Orientation: alert, awake and oriented x3 Head Head: normal to inspection, normocephalic and atraumatic Ears: hearing grossly normal bilaterally and external ears normal Nose: external nose normal, nares normal, nasal mucous membranes and turbinates normal, septum normal, no nasal discharge Face and Sinus: face symmetric Mouth: oral mucosae normal, tongue normal, oropharynx normal and moist mucous membranes Teeth and gingiva: dentition normal Throat: posterior oropharynx normal, tonsils normal and uvula midline Eyes General: appearance normal, both eyes and all related structures Eyelids: eyelids normal Conjunctivae: conjunctivae normal Pupils: PERRL, normal by confrontation and accommodation normal EOM: EOM intact bilaterally Neck Neck: normal visual inspection, trachea midline and no JVD JVD: +5 Carotids: normal carotid upstroke and bounding pulses Chest Chest inspection: normal inspection of the chest, symmetric chest movement and normal respiratory effort Auscultation: Bilateral: Clear to Auscultation Cardio Palpation: normal PMI Rate: tachycardic Rhythm: irregular rhythm Heart sounds: S1 normal, S2 normal and normal, physiologic split S2; negative rub, gallop or murmur GI GI: normal to inspection, soft, no hepatosplenomegaly and bowel sounds present Neuro General: alert, awake, oriented x3, gait normal, moves all extremities and no focal sensory deficit Skin Skin: no rashes or lesions noted Extremities Pulses: Normal: Right Femoral Pulse, Left Femoral Pulse, Right Dorsalis Pedis Pulse, Left Dorsalis Pedis Pulse, Right Posterior Tibial Pulse, Left Posterior Tibial Pulse, Right Radial Pulse, Left Radial Pulse Lower Extremity Edema: None: Bilateral Musculoskel Musculoskeletal: No joint tenderness Psych Psychological: normal affect Assessment & Plan 1. Paroxysmal atrial fibrillation I48.0 Plan Patient does have evidence of tachybradycardia syndrome. Unfortunately she is in atrial fibrillation with RVR today. She is not symptomatic with this. Would like to increase her Coreg to 12.5 mg twice a day. However I am concerned about her history of pauses. This was reviewed with her. We will monitor closely. We will bring her in next week for an EKG and further evaluation. Plan would be to pursue a pacemaker for her tachybradycardia syndrome so that we can optimize her medications. Patient Instructions Increase your coreg to 12.5 mg twice a day Orders Orders: 12 Lead EKG performed by FANNY 03/07/20 2. Atherosclerosis of [place] coronary artery of [place] heart without angina pectoris I25.10 Plan Stable, from a cardiac standpoint patient does not have any symptoms of angina. Reviewed recent heart catheterization. We recommend that they continue with current aggressive medical management and risk factor modification. 3. Essential hypertension I10 Plan Blood pressure is on the lower side however with her elevated heart rate would like to increase her Coreg to 12.5 mg twice a day. She will return next week for further assessment. 4. Pure hypercholesterolemia E78.5 Plan This is managed by her primary care doctor. She will continue with moderate intensity statin. 5. Abdominal aortic aneurysm (AAA) without rupture I71.4 Redemonstration of infrarenal abdominal aortic aneurysm measuring up to 4.4 cm x 4.4 cm essentially similar to previous exam. 01/21/2019 Plan She has followed with Dr. Gar for this. Recommend that she continue to do so. Plan Detail Other Medications Changed: From: carvedilol must administer with a meal/food 6.25 mg PO BID heart To: carvedilol 12.5 mg PO BID 60 tabs 6RF heart Follow Up 03/07/20 (EKG next week- on a friday when PREMIUM REPRESENTATIVE is here) Coding Level of Care Code Off vis,est,level 4 Diagnoses Paroxysmal atrial fibrillation I48.0 Atherosclerosis of [place] coronary artery of [place] heart without angina pectoris I25.10 ??[place] vs. transplanted heart: [place] heart Essential hypertension I10 Pure hypercholesterolemia E78.5 Abdominal aortic aneurysm (AAA) without rupture I71.4 Coding Level of Care Code Off vis,est,level 4 Diagnoses Paroxysmal atrial fibrillation I48.0 Atherosclerosis of [place] coronary artery of [place] heart without angina pectoris I25.10 ??[place] vs. transplanted heart: [place] heart Essential hypertension I10 Pure hypercholesterolemia E78.5 Abdominal aortic aneurysm (AAA) without rupture I71.4 Supplemental Info Supplemental Information Echocardiogram 03/2019: Normal LV size. Left ventricular systolic function is lower limits of normal. The estimated ejection fraction is 50 %. Unable to assess diastolic dysfunction due to arrhythmia. Moderate (2+) eccentric mitral valve insufficiency. The left atrium is moderately enlarged. Mild (1+) eccentric aortic valve insufficiency. Compared to the previous the wall motion abnormality is new CORONARY ANGIOGRAPHY 11/2019 DOMINANCE: Right Dominant LEFT HEART ASSESSMENT Left Ventricular Ejection Fraction: by LV Gram 60 % Normal LV wall motion Normal Left Ventricular systolic function LEFT MAIN: Mild calcification, No significant disease noted LEFT ANTERIOR DESCENDING ARTERY: Mild luminal irregularities DIAGONAL 2: Ostial - 60 % Stenosis CIRCUMFLEX ARTERY: PROX CIRC: subtotatly occluded RIGHT CORONARY ARTERY: MID RCA: Previously placed stent is patent DISTAL RCA: Previously placed stent is patent RT PLV: 60 % Stenosis COLLATERAL FLOW: Collateral flow from Left to Left Diagnostics Electrocardiogram 03/07/20 Chest X-Ray 01/01/20
[2020-03-27 11:38] LABS: Potassium 4.8 mmol/L (3.5-5.1)
[2020-03-27] MEDS: Cefazolin 2 GM in 0.9% Normal Saline 100 ML IV (12:25)
--- NOTE | 2020-03-27 14:16 | CL.IE_ITS ---
Patient: CURLY MORALES Study Date: 03/27/2020 Performing: Jaime Treviño MD : 1950 Age: 70 Gender: female PROCEDURES PERFORMED [id number] PACER INSERT+DUAL LEADS INDICATIONS Sinoatrial node dysfunction/Sick sinus syndrome PROCEDURE DETAILS The patient was brought to the Catheterization Lab in the postabsorptive nonsedated state. Infor med consent was obtained prior to the procedure. Local anesthetic was given subcutaneously to the le ft subclavian region with Lidocaine 2%. Access was achieved and a guidewire was advanced into the lef t subclavian vein. Incision was made to the left subclavicular area. PPM ventricular lead was inserte d / positioned to right ventricular septal wall. PPM ventricular lead testing performed. PPM ventricu lar lead testing performed. The sheath was then removed. PPM atrial lead was inserted / positioned to the right atrial appendage. PPM atrial lead testing performed. PPM atrial lead was repositioned and checked. The Ventricular PM lead sutured in place with 2-0 Vicryl. The Atrial lead sutured in place w ith 2-0 Vicryl. Device pocket was irrigated with antibiotic. PPM generator was attached to the lead(s ) and inserted into the pocket. The PPM generator was sutured in place with 2-0 Silk. Subcutaneous closure was completed with 3-0 Vicryl. Skin closure was completed with 4-0 Vicryl. Instr ument, sponge, and needle counts were noted to be normal. The patient tolerated the procedure well. Estimated Blood Loss: 8 ml's IMPLANTED / EX-PLANTED DEVICES IMPLANTED DEVICE(S): PPM Ventricular lead - [employer] Inspector: [employer], Model # 7841 , Serial # [id number] PPM Atrial lead - [employer] Inspector: [employer], Model # 7840 , Serial # [id number] PPM Generator - Customs And Border [employer] Inspector: [employer], Model # l111 , Serial # [id number] DEVICE PARAMETERS ATRIAL LEAD PARAMETERS: impedence- 528 (OHMS) VENTRICULAR LEAD PARAMETERS: R wave- 12.7 (mV) threshold- .5 (V) impedence- 686 (OHMS) DEVICE PARAMETERS: rate response off Mode- ddd Lower rate- 60 Upper rate- 130 CONCLUSIONS / RECOMMENDATIONS PROCEDURE MEDICATIONS Versed 1 mg IV Fentanyl 50 mcg IV Fentanyl 25 mcg IV Fentanyl 25 mcg IV Oxygen: 2 L/min via nasal cannula Ancef 2 Gm IV @ 03/27/2020 12:25:06 Signed By Jaime Treviño MD On 03/27/2020 14:14:29 Jaime Treviño MD
[2020-03-27] MEDS: Acetaminophen 500 MG Tablet PO (15:06)
[2020-03-27] MEDS: Metoprolol Tartrate 5 MG/5 ML Vial IV (17:19)
[2020-03-27] MEDS: 0.9% Saline Lock 10 ML Syringe IV (17:19)
[2020-03-27] MEDS: Gabapentin 300 MG Capsule PO (17:20)
[2020-03-27] MEDS: Carvedilol 12.5 MG Tablet PO (18:41)
[2020-03-27] MEDS: Aspirin E.C. 81 MG Tablet PO (18:41)
[2020-03-27] MEDS: Famotidine 20 MG Tablet PO (21:41)
[2020-03-27] MEDS: Amitriptyline 25 MG Tablet 75 MG PO (21:41)
[2020-03-27] MEDS: Atorvastatin Calcium 40 MG Tablet PO (21:41)
[2020-03-27] MEDS: MELATONIN 3 MG TABLET PO (21:41)
--- NOTE | 2020-03-27 22:10 | PCS.PANDOC ---
PANDEMIC DOCUMENTATION INITIATED: Date: 03/27/20 Time: 14:24
[2020-03-28] VITALS (34 sets, daily range): BP systolic 101–138; BP diastolic 58–88; PULSE 80–127; RESP 12–22; TEMP 36.7–37.2; O2SAT 84–100
--- NOTE | 2020-03-28 02:41 | NURSING ---
Pt. anxious with SpO2 79% on 2L n/c. Non-rebreather applied, SpO2 to 96% with RT at bedside.
--- NOTE | 2020-03-28 03:43 | RAD_ITS ---
STUDY: X-RAY CHEST REASON FOR EXAM: Female, 70 years old. Shortness of breath. Pacemaker insertion March 27, 2020. TECHNIQUE: AP portable chest. COMPARISON: March 20, 2020. FINDINGS: The lungs are clear and expanded. There is no demonstrated pleural abnormality. No pneumothorax.. There is now mild cardiomegaly. Normal mediastinum and artis. Mild pulmonary vascular congestion. Atherosclerotic calcification of the aortic arch. Cardiac pacemaker left hemithorax. Leads in the expected locations. Normal visualized thoracic spine. Normal visualized ribs, clavicles, and shoulders. There is no demonstrated abnormality of the visualized soft tissue structures of the upper abdomen. RAD/Chest 1 View (Portable) IMPRESSION: Mild cardiomegaly with mild vascular congestion. Cardiac pacemaker left hemithorax. Electronically Signed: Juanpablo Johnson MD at 4:07 EST , Service support ,
[2020-03-28] MEDS: 0.9% Saline Lock 10 ML Syringe IV ×4 (03:57→17:34)
[2020-03-28] MEDS: Furosemide 40 MG/4 ML Vial IV ×2 (03:58→07:57)
[2020-03-28] MEDS: Digoxin 250 MCG/ML Ampul 500 MCG IV (03:58)
--- NOTE | 2020-03-28 04:05 | PCM.PN.HOSP ---
Reason for Visit: Pacemaker placement Subjective: Patient with SOB on a non rebreather mask. Also with Afib with RVR and some runs of no sustained V-tach. Vitals/I&O's: Vital Signs Temp Pulse Resp BP Pulse Ox 98.5 F 110 H 18 112/74 98 03/27/20 21:37 03/27/20 23:00 03/27/20 21:37 03/27/20 21:37 03/27/20 21:37 Oxygen Flow Rate (L/min) 2 Oxygen Delivery Method Nasal Cannula Weight: 70.307 kg Body Mass Index (BMI) 28.3 Intake and Output for Last 24 Hours 03/26/20 03/27/20 03/28/20 23:59 23:59 23:59 Intake Total 790 / 790 Output Total 200 / 200 Balance 590 / 590 General: Alert, Oriented x3 - Patient oriented to self; place and year. Does not remember the month, Cooperative HEENT: Atraumatic, PERRLA, EOMI, Normocephalic Neck: Supple, No JVD, Negative Carotid Bruits Lungs: Rales - modearte, Short of Breath, Tachypneic, Using Accessory Muscles - conversational dyspnea, Wheezes - mild Cardiovascular: Normal S1, Normal S2, No murmurs, Irregular Rate, Tachycardic Abdomen: Bowel Sounds Present, Soft, Non Tender Extremities: No edema, Capillary Refill Less than 3 Seconds Skin: No rashes, No breakdown Musculoskeletal: No Tenderness to Palpation of Joints or Extremities Neurological: Cranial nerves II-XII grossly intact Psych/Mental Status: Normal Affect, Appropriate Laboratory Results 03/27/20 11:10: Potassium 4.8 Current Medications Acetaminophen (Acetaminophen 500 Mg Tablet) 500 mg PO Q4H PRN PRN PRN Reason: Pain Score 1-10 Last Admin: 03/27/20 15:06 Dose: 500 mg Documented by: Amitriptyline HCl (Amitriptyline 25 Mg Tablet) 75 mg PO QHS [facility] Last Admin: 03/27/20 21:41 Dose: 75 mg Documented by: Amlodipine Besylate (Amlodipine 10 Mg Tablet) 10 mg PO DAILY [facility] Aspirin (Aspirin E.C. 81 Mg Tablet) 81 mg PO DAILY@1999 [facility] Last Admin: 03/27/20 18:41 Dose: 81 mg Documented by: Atorvastatin Calcium (Atorvastatin Calcium 40 Mg Tablet) 40 mg PO QHS [facility] Last Admin: 03/27/20 21:41 Dose: 40 mg Documented by: Carvedilol (Carvedilol 12.5 Mg Tablet) 12.5 mg PO BID [facility] Last Admin: 03/27/20 18:41 Dose: 12.5 mg Documented by: Duloxetine HCl (Duloxetine Hcl 30 Mg Capsule) 30 mg PO DAILY [facility] Famotidine (Famotidine 20 Mg Tablet) 20 mg PO BID [facility] Last Admin: 03/27/20 21:41 Dose: 20 mg Documented by: Furosemide (Furosemide 40 Mg Tablet) 40 mg PO DAILY [facility] Gabapentin (Gabapentin 300 Mg Capsule) 300 mg PO TIDCM [facility] Last Admin: 03/27/20 17:20 Dose: 300 mg Documented by: Hydrochlorothiazide (Hydrochlorothiazide 25 Mg Tablet) 25 mg PO DAILY [facility] Sodium Chloride () 1,000 mls @ 0 mls/hr IV .Q0M JARED Sodium Chloride () 250 mls @ 15 mls/hr IV .[id number] PRN PRN Reason: Saline Flush Sodium Chloride () 250 mls @ 15 mls/hr IV .[id number] PRN PRN Reason: Additional IVPB Infusion Isosorbide Mononitrate (Isosorbide Mononitrate 60 Mg Tablet) 60 mg PO DAILY [facility] Melatonin (Melatonin 3 Mg Tablet) 3 mg PO QHS PRN PRN PRN Reason: INSOMNIA Last Admin: 03/27/20 21:41 Dose: 3 mg Documented by: Multivitamins (Multivitamins,Therapeutic Tablet) 1 tablet PO DAILYCM [facility] Nitroglycerin (Nitroglycerin (Inpatient Use) 0.4 Mg Tab.Subl) 0.4 mg SUBLINGUAL Q5M PRN PRN Reason: CHEST Potassium Chloride (Potassium Chloride 20 Meq Tablet) 20 meq PO BIDCM [facility] Last Admin: 03/27/20 17:20 Dose: 20 meq Documented by: Rotigotine (Rotigotine 2 Mg Patch) 2 mg TD DAILY [facility] Sodium Chloride (0.9% Saline Lock 10 Ml Syringe) 10 - 40 ml IV UD PRN PRN Reason: SALINE FLUSH Last Admin: 03/27/20 17:19 Dose: 10 ml Documented by: Medical Necessity - Tobacco Use Smoking Status: Current every day smoker Assessment/Plan All Active Problems (Last Updated 03/18/20 @ 11:24 by Zenobia Moffett) Tachy-erica syndrome (Acute) Pneumonia due to 2019 novel coronavirus (Resolved 01/01/20) Angina pectoris (Resolved) Atrial fibrillation with RVR (Resolved) Atypical chest pain (Resolved) Chest pain (Resolved) Chest pain (Resolved 01/01/20) Encephalopathy acute (Resolved) Hypokalemia (Resolved) Pneumonia (Resolved) Preop cardiovascular exam (Resolved) Unstable angina pectoris due to coronary arteriosclerosis (Resolved) Patient with tachybradycardia syndrome status post pacemaker placement postop day 1 with shortness of breath; A. fib with RVR as well as episodes of nonsustained V. tach. Congestive heart failure Bedside chest x-ray interpreted by myself showed vascular congestion with bipolar pacemaker; worsened from previous. Lasix IV push ordered by cardiology On nonrebreather mask with oxygen saturation 95 to 97%. We will continue to monitor patient. If work of breathing worsens will consider BiPAP. Atrial fibrillation with RVR/nonsustained V. tach. On telemetry. Digoxin per cardiology. CBC; BMP and magnesium in a.m. Pacemaker was interrogated. Inpatient E&M: 76595 Subs Hosp L3
[2020-03-28] MEDS: dilTIAZem 25 MG/5 ML Vial 20 MG IV BOLUS (05:04)
[2020-03-28 05:41] LABS: Blood Gas Specimen Type VEN; O2 Delivery Device BiPAP; PEEP 8; PS 14; SITE R Radial; VBG BASE EXCESS -3 mmol/L (-1.0-3.5); VBG Bicarbonate 22 mmol/L (22-26); VBG PO2 36 mmHg (25-40); VBG SO2 67 % (50-70); VBG TCO2 23 mmol/L (23-33); VBG pCO2 38.9 mmHg (41-51); VBG pH 7.37 (7.32-7.42)
[2020-03-28 05:45] LABS: Absolute Lymphocyte Count 0.68 X10^3/uL (0.83-4.51); Absolute Neutrophil Count 8.1 X10^3/uL (2.0-7.7); Basophil# 0.03 X10^3/uL; Basophil% 0.3 % (0-1); Eosinophil# 0.05 X10^3/uL; Eosinophils% 0.5 % (0-5); Hematocrit 31.5 % (37-47); Hemoglobin 10.1 g/dL (12.0-15.0); Lymphocyte # 0.68 X10^3/ul (4.0); Lymphocyte % 7.1 % (19-41); Mean Corp Hgb Conc 32.1 g/dL (32-36); Mean Corpuscular Hgb 28.1 pg (27.0-32.0); Mean Corpuscular Volume 87.5 fL (81-99); Mean Platelet Vol. 11.3 fl (6.2-12.0); Monocyte# 0.67 X10^3/uL; NRBC Flagged by Analyzer 0 % (0-5); Neutrophil % 84.7 % (47-70); Platelet Count 165 K/mm3 (150-450); RBC Distribution Width CV 13.2 % (11.6-14.6); RBC Distribution Width SD 41.2 fl (35.1-43.9); White Blood Count 9.6 K/mm3 (4.4-11.0)
[2020-03-28 06:08] LABS: Anion Gap 8 (5-15); BUN 36 mg/dL (7-18); BUN/Creat Ratio 28.8 RATIO (10-20); Calcium,Total 8.5 mg/dL (8.5-10.1); Chloride 107 mmol/L (98-107); Creatinine, Serum 1.25 mg/dL (0.55-1.02); EST Glomerular Filtration Rate 45 mL/min (>60); Est Glom Filt Rate - Afr Amer 54 mL/min (>60); Estimated Creatinine Clearance 32.65 ml/min; Glucose 107 mg/dL (74-106); Magnesium 1.9 mg/dL (1.6-2.6); Potassium 4.9 mmol/L (3.5-5.1); Sodium Level 135 mmol/L (136-145)
[2020-03-28 06:53] LABS: Ferritin 50 ng/mL (8-252)
--- NOTE | 2020-03-28 07:07 | ECHOL_ITS ---
Reason For Study: CHF Procedure This was a limited 2D transthoracic echocardiogram. Exam performed portable in patient room. Left Ventricle Normal LV size. Moderate global left ventricular systolic dysfunction. The estimated ejection fraction is 40 %. No regional wall motion abnormalities noted. Right Ventricle Normal RV size. ICD or pacer leads identified within the right ventricle. Normal systolic function. Atria Normal left atrium. Normal right atrium. Mitral Valve Normal mitral valve. Mild (1+) eccentric mitral valve insufficiency. Tricuspid Valve Normal tricuspid valve. Mild to moderate (1-2+) tricuspid valve insufficiency. Pulmonary artery systolic pressure is 35 mmHg. Aortic Valve Trisinus/trileaflet aortic valve. Mild focal aortic valve calcification. Pulmonic Valve Normal pulmonic valve. Great Vessels Normal aortic root. The pulmonary artery is normal size. Normal inferior vena cava. Pericardium/Pleural No pericardial effusion. MMode/2D Measurements & Calculations LVIDd: 5.2 cm IVSd: 0.99 cm LVAd ap4: 33.5 cm2 LVIDs: 4.1 cm LVPWd: 0.96 cm EDV(MOD-sp4): 126.9 ml FS: 20.0 % EDV(sp4-el): 129.7 ml LVAs ap4: 25.5 cm2 ESV(MOD-sp4): 79.2 ml ESV(sp4-el): 80.2 ml EF(MOD-sp4): 37.6 % EF(sp4-el): 38.2 % SV(MOD-sp4): 47.7 ml SV(sp4-el): 49.5 ml Doppler Measurements & Calculations TR max isaac: 282.3 cm/sec TR max P.9 mmHg Interpretation Summary Normal LV size. Moderate global left ventricular systolic dysfunction. The estimated ejection fraction is 40 %. Mild (1+) eccentric mitral valve insufficiency. Pulmonary artery systolic pressure is 35 mmHg. Ordering Physician: Jaime Treviño Referring Physician: CATHI FONTANA Performed By: Karen Bates RDCS
--- NOTE | 2020-03-28 08:37 | NURSING ---
Echocardiogram being performed at the bedside, patient tolerating well. No needs voiced.
--- NOTE | 2020-03-28 09:04 | PN.CARD_ITS ---
Subjectve: Events of last night noted. I was notified at approximately 3 AM of the patient being short of breath and tachycardic. Called in some preliminary orders. Objective: Vital Signs Temp Pulse Resp BP Pulse Ox 98.4 F 117 H 20 H 125/81 H 100 03/28/20 08:01 03/28/20 08:45 03/28/20 08:30 03/28/20 08:45 03/28/20 08:01 Oxygen Flow Rate (L/min) 14 Oxygen Delivery Method Bi-pap Weight: 162 lb 7.691 oz Body Mass Index (BMI) 28.3 Intake and Output for Last 24 Hours 03/26/20 03/27/20 03/28/20 23:59 23:59 23:59 Intake Total 790 / 790 128.58 / 128.58 Output Total 200 / 200 600 / 600 Balance 590 / 590 -471.42 / -471.42 General: Awake, Alert, Oriented x 3, In Acute Distress HEENT: PERRL, EOMI, Sclera Non Icteric Neck: Supple, Good ROM, No Lymph Node Enlargement Lungs: Diminished Carlos Bases Cardiovascular: Irregular Rhythm, Normal S1, Normal S2, No Murmurs, No Rubs, No Gallops 03/27/20 11:10: Potassium 4.8 03/28/20 05:36: VBG pH 7.37, VBG pO2 36, VBG HCO3 22, VBG O2 Sat (Calc) 67, VBG Base Excess -3 L 03/28/20 05:39: WBC 9.6, RBC 3.60 L, Hgb 10.1 L, Hct 31.5 L, MCV 87.5, MCH 28.1, MCHC 32.1, Plt Count 165, MPV 11.3, Immature Gran % (Auto) 0.400, Neut % (Auto) 84.7 H, Lymph % (Auto) 7.1 L, [place] % (Auto) 7.0, Eos % (Auto) 0.5, Baso % (Auto) 0.3, Absolute Neuts (auto) 8.1 H, Nucleated RBC % 0 03/28/20 05:39: Sodium 135 L, Potassium 4.9, Chloride 107, Carbon Dioxide 20.0 L , Anion Gap 8, BUN 36 H, Creatinine 1.25 H, Est GFR (MDRD) Af Amer 54 L, Est GFR (MDRD) Non-Af 45 L, BUN/Creatinine Ratio 28.8 H, Glucose 107 H, Calcium 8.5, Magnesium 1.9 03/28/20 05:39: Ferritin 50 03/28/20 05:39: Troponin I 0.049 H Rhythm: EKG: ECHO: Stress Test: Cardiac Cath: PCI: CT Surgery: Holter monitor: EPS: PPM: CXR: Chest CT Scan: Medical Necessity - Tobacco Use Smoking Status: Current every day smoker Assessment/Plan 1. Congestive heart failure acute systolic * Patient appears to have gone into acute systolic congestive heart failure. The above was likely as a result of atrial fibrillation with rapid ventricular response rate, IV fluids, on top of a previous cardiomyopathy. Ischemia cannot be completely excluded. * Echocardiogram performed this morning demonstrates global reduction in left ventricular systolic function estimated at 35 to 40% * Will continue aggressive IV diuresis * Will wean off BiPAP as tolerated * Was switched from carvedilol to metoprolol for better rate control * Will continue digoxin * As an outpatient will consider DC cardioversion after patient has been started on anticoagulation. * 2. Atrial fibrillation with rapid ventricular response rate * Patient is noted to be in atrial fibrillation with a rapid ventricular response rate. Anticoagulation has been held due to the pacemaker insertion * Will rate control with beta-declan and digoxin * Continue intravenous Cardizem for now and wean as appropriate * Will likely consider DC cardioversion as an outpatient * 3. Status post pacemaker implantation * Pacemaker interrogation this morning demonstrates normally functioning pacer * No pneumothorax noted on chest x-ray * Evidence of fluid redistribution suggestive of congestive heart failure * Will follow up in pacemaker clinic April 03 at 11 AM * 4. Coronary artery disease * Patient has known coronary artery disease * Mild troponin elevation at this time likely from demand ischemia * Will follow * * Appreciate the help of the night nurses as well as the night hospitalist Dr. Oliver
[2020-03-28] MEDS: Multivitamins,Therapeutic Tablet 1 TABLET PO (09:14)
[2020-03-28] MEDS: Isosorbide Mononitrate 60 MG Tablet PO (09:15)
[2020-03-28] MEDS: Gabapentin 300 MG Capsule PO ×2 (09:15→17:33)
[2020-03-28] MEDS: DULoxetine Hcl 30 MG Capsule PO (09:15)
[2020-03-28] MEDS: Furosemide 40 MG Tablet PO (09:16)
[2020-03-28] MEDS: Famotidine 20 MG Tablet PO ×2 (09:18→20:54)
[2020-03-28] MEDS: Metoprolol Tartrate 50 MG Tablet PO ×2 (09:23→20:55)
--- NOTE | 2020-03-28 10:33 | CASEMGMT ---
EZEKIEL PALMER assessment: Face to Face with patient for initial transition planning/care coordination assessment. EZEKIEL PALMER introduced self and role at [facility], pt voices understanding and consents to assessment at this time. Pt is lying in bed in no distress at this time. Pt is A/Ox4 at this time and answers all questions appropriately at this time. Pt is currently on room air at this time. Care providers, pharmacy, and demographics verified at this time. Presentation: OP for pacer, then went into HF/Afib so made inpt Admitting dx: Tachy erica syndrome PCP: Abigail Specialists: Kamila cardio Luciano Pharmacy: [facility] Insurance: [employer] Prescription Benefit: Yes Living Will/HPOA: Pt states has LW/HPOA and is aware that they are on file at [facility] at this time. Pt states her daughter, Argelia Puri, is HPOA. LNOK: Argelia Puri, daughter/HPOA Living Arrangements: Pt states lives with daughter in 2 story home and states no concerns at home at this time. Pt states is independent with ADL's. Transportation: Pt states drives self and states no transportation concerns at this time. DME/HHC: Pt states no current DME at this time and states no need for any DME at this time. Pt states no hx of HHC or SNF in the past. Pt states no concerns with going home at time of discharge. Pt states is retired. Pt states does smokes 1-3cigarettes daily and does not drink ETOH. Pt states no further concerns/needs at this time. CM to follow for home oxygen testing and any further discharge planning/needs. Advised pt to ask for CM if any further questions/concerns/needs arise, voices understanding. Pt Goal: Home Plan: [place] EZEKIEL PALMER
[2020-03-28 13:46] LABS: Allen Test Positive; Base Excess 1 mmol/L (-2 to +2); Bicarbonate 25.7 mmol/L (22-26); Blood Gas Specimen Type ART; FI02 32; O2 Delivery Device Cannula; PO2 62 mmHG (75-100); SITE L Radial; SO2 92 % (95-99); Total Carbon Dioxide 27 mmol/L; pCO2 41.2 mmHg (35-45)
[2020-03-28] MEDS: Furosemide 20 MG/2 ML VIAL IV (17:32)
[2020-03-28] MEDS: Aspirin E.C. 81 MG Tablet PO (20:54)
[2020-03-28] MEDS: Atorvastatin Calcium 40 MG Tablet PO (20:55)
[2020-03-28] MEDS: Amitriptyline 25 MG Tablet 75 MG PO (20:55)
[2020-03-29] VITALS (9 sets, daily range): BP systolic 118–126; BP diastolic 71–95; PULSE 105–130; RESP 19–21; TEMP 37.1–37.4; O2SAT 91–94
--- NOTE | 2020-03-29 07:40 | PN.CARD_ITS ---
Objective: Vital Signs Temp Pulse Resp BP Pulse Ox 99.3 F H 118 H 19 H 118/74 94 03/29/20 03:14 03/29/20 07:27 03/29/20 03:14 03/29/20 03:14 03/29/20 03:14 Oxygen Flow Rate (L/min) 3 Oxygen Delivery Method Nasal Cannula Weight: 157 lb 6.561 oz Body Mass Index (BMI) 28.3 Intake and Output for Last 24 Hours 03/27/20 03/28/20 03/29/20 23:59 23:59 23:59 Intake Total 790 / 790 804.83 / 804.83 240 / 240 Output Total 200 / 200 3100 / 3100 200 / 200 Balance 590 / 590 -2295.17 / -2295.17 40 / 40 General: Awake, Alert, Oriented x 3 HEENT: PERRL, EOMI, Sclera Non Icteric Neck: Supple, Good ROM, No Lymph Node Enlargement Lungs: Clear to auscultation Cardiovascular: Regular Rhythm, Normal S1, Normal S2, No Murmurs, No Rubs, No Gallops Vascular: No Carotid Bruits, Normal Femoral Pulses, Normal Radial Pulses, Normal Dorsalis Pedal Pulse, Normal Posterior Tibial Pulses Abdomen: Bowel Sounds Present, Soft, Non Tender, No HSM, No Organomegaly Extremities: No Cyanosis, No Clubbing, No edema Musculoskeletal: No Erythema Lymphatic: No Lymph Node Enlargement Neurological: No Focal Motor or Sensory Deficit 03/28/20 05:39: Troponin I 0.049 H 03/28/20 13:38: pH 7.40, Bicarbonate Actual 25.7, Base Excess 1, O2 Saturation 92 L, ABG pCO2 41.2, ABG pO2 62 L, Shaan Test Positive Rhythm: EKG: ECHO: Stress Test: Cardiac Cath: PCI: CT Surgery: Holter monitor: EPS: PPM: CXR: Chest CT Scan: Medical Necessity - Tobacco Use Smoking Status: Current every day smoker Assessment/Plan 1. Congestive heart failure acute systolic * Patient appears to have gone into acute systolic congestive heart failure. The above was likely as a result of atrial fibrillation with rapid ventricular response rate, IV fluids, on top of a previous cardiomyopathy. Ischemia cannot be completely excluded. * Echocardiogram performed this morning demonstrates global reduction in left ventricular systolic function estimated at 35 to 40% * Will continue aggressive IV diuresis * Will wean off BiPAP as tolerated * Was switched from carvedilol to metoprolol for better rate control * Will continue digoxin * As an outpatient will consider DC cardioversion after patient has been started on anticoagulation. * 2. Atrial fibrillation with rapid ventricular response rate * Patient is noted to be in atrial fibrillation with a rapid ventricular response rate. Anticoagulation has been held due to the pacemaker insertion * Will rate control with beta-declan and digoxin * * Will likely consider DC cardioversion as an outpatient * 3. Status post pacemaker implantation * Pacemaker interrogation this morning demonstrates normally functioning pacer * No pneumothorax noted on chest x-ray * Evidence of fluid redistribution suggestive of congestive heart failure * Will follow up in pacemaker clinic April 03 at 11 AM * 4. Coronary artery disease * Patient has known coronary artery disease * Mild troponin elevation at this time likely from demand ischemia * Will follow * *
--- NOTE | 2020-03-29 07:41 | PCM.DC.PACE ---
Discharge Diet: No Restrictions Discharge Activity: Return to Normal Activity - as you feel able. No excessive stretching. No lifting your arm over your head (keep elbow below shoulder level) until seen for your pacemaker check. Do not lift your elbow away from your side until you are seen for your first visit. Keep the arm sling on if it helps remind you not to lift your arm. Additional Activity Instructions:: May shower or bathe on []. Do not scrub the incision or soak in the tub. Just wash with soap and let the water run over the incision. Gently pat dry with towel. Medications: Take your pain medication as directed. Refer to your discharge instruction sheet for a list of medications you are to take. Call your doctor if your incision/area has: Continuous Slow Oozing, Sudden Increased Bleeding, Increased Pain/ Swelling, Increased Redness, Foul Smelling Discharge, Swelling at the incision site Call your doctor if you observe: Fever of 101 or Higher, Shortness of breath, Dizziness, Fainting spells, Swelling in the ankles, Chest pain, Prolonged hiccoughing, Increased palpitations (irregular heartbeat) Suture Line Care: Avoid Pulling/Pushing, Avoid Pinching/Bending Cleanse incision/area with: Do not get Incision Wet, Keep Dressing Clean & Dry Additional Dressing/Incision Instructions:: When dressing is removed, wash and dry incision. Keep covered with a light bandage if it is rubbing against your clothing. Do not cover the incision with an airtight bandage. Change the bandage daily. Do not remove steri strips. The strips will fall off on their own. Additional Instructions: Signs and Symptoms to Report to Your Doctor at Once - call your doctor's office or Doctor's Registry ([phone]) Call [phone] or go to the nearest Emergency Department if you feel you need urgent care. *Infection (fever, increased redness or swelling at the incision site, drainage from the incision increased pain at the pacemaker site) *Shortness of breath *Dizziness *Fainting spells *Swelling in the ankles *Chest pain *Prolonged hiccoughing *Increased palpitaitons (irregular heartbeat) Medications: Take your pain medication as directed. Refer to your discharge instruction sheet for a list of medications you are to take. Allergies/Adverse Reactions: Allergies lisinopril Allergy (Verified 03/11/20 04:01) tongue swelling Medications to take at Discharge Amitriptyline HCl [Elavil] 75 mg PO QHS 11/25/13 Multivitamins,Therapeutic [Multivitamin] 1 tab PO DAILY 11/25/13 nitroglycerin 0.4 mg sublingual tablet 0.4 mg SUBLINGUAL Q5M PRN #25 tab 05/20/17 albuterol sulfate 90 mcg/actuation aerosol inhaler 1 - 2 puff INHALATION Q4H PRN PRN #1 inhaler 06/16/18 atorvastatin 40 mg tablet 40 mg PO QHS tab 07/09/19 dicyclomine 10 mg capsule 10 mg PO 4X/DAY 07/09/19 famotidine 20 mg tablet 20 mg PO BID 07/09/19 gabapentin 300 mg capsule 300 mg PO TID 07/09/19 Clopidogrel Bisulfate [Plavix] 75 mg PO QHS 08/30/19 isosorbide mononitrate 60 mg tablet,extended release 24 hr 60 mg PO DAILY tab 10/08/19 Aspirin E.C. [Ecotrin] 81 mg PO DAILY@199911/23/19 duloxetine 30 mg capsule,delayed release 30 mg PO DAILY 12/15/19 Doxazosin Mesylate [Cardura] 2 mg PO QHS 01/02/20 Melatonin 3 mg PO QHS PRN PRN tab 01/06/20 amlodipine 10 mg tablet 10 mg PO DAILY 03/07/20 furosemide 20 mg tablet 40 mg PO DAILY tab 03/07/20 rotigotine 1 mg/24 hour transdermal 24 hour patch 2 mg TOPICAL DAILY ea 03/07/20 Cephalexin [Keflex] 500 mg PO Q6 #40 cap 03/11/20 potassium chloride 20 mEq tablet,extended release 20 meq PO BID #60 tab 03/21/20 Metoprolol Tartrate [Lopressor (beta declan)] 50 mg PO BID #90 tab 03/29/20 The following prescriptions were given: Metoprolol Tartrate [Lopressor (beta declan)] 50 mg PO BID #90 tab Transmission Status: Pending to [id number] Primary Care Physician: Feng Hayes MD [Primary Care Provider] - Test Results: Test results from this visit will be discussed in further detail at your follow-up appointment, if applicable. Please Follow Up With: Pacemaker clinic April 03 AM Proposed Discharge Date: 03/29/20
[2020-03-29] MEDS: Gabapentin 300 MG Capsule PO (08:42)
[2020-03-29] MEDS: Metoprolol Tartrate 50 MG Tablet PO (08:42)
[2020-03-29] MEDS: Furosemide 40 MG Tablet PO (08:42)
[2020-03-29] MEDS: Famotidine 20 MG Tablet PO (08:42)
[2020-03-29] MEDS: Multivitamins,Therapeutic Tablet 1 TABLET PO (08:42)
[2020-03-29] MEDS: Isosorbide Mononitrate 60 MG Tablet PO (08:43)
--- NOTE | 2020-03-29 11:44 | PHA.DC.MR ---
Pharmacy Service has performed discharge medication reconciliation for this patient. The patient's discharge medication list was reviewed for discrepancies and discrepancies were resolved. Home Medications Amitriptyline HCl [Elavil] 75 mg PO QHS 11/25/13 Multivitamins,Therapeutic [Multivitamin] 1 tab PO DAILY 11/25/13 nitroglycerin 0.4 mg sublingual tablet 0.4 mg SUBLINGUAL Q5M PRN #25 tab 05/20/17 albuterol sulfate 90 mcg/actuation aerosol inhaler 1 - 2 puff INHALATION Q4H PRN PRN #1 inhaler 06/16/18 atorvastatin 40 mg tablet 40 mg PO QHS tab 07/09/19 dicyclomine 10 mg capsule 10 mg PO 4X/DAY 07/09/19 famotidine 20 mg tablet 20 mg PO BID 07/09/19 gabapentin 300 mg capsule 300 mg PO TID 07/09/19 Clopidogrel Bisulfate [Plavix] 75 mg PO QHS 08/30/19 isosorbide mononitrate 60 mg tablet,extended release 24 hr 60 mg PO DAILY tab 10/08/19 Aspirin E.C. [Ecotrin] 81 mg PO DAILY@199911/23/19 duloxetine 30 mg capsule,delayed release 30 mg PO DAILY 12/15/19 Doxazosin Mesylate [Cardura] 2 mg PO QHS 01/02/20 Melatonin 3 mg PO QHS PRN PRN tab 01/06/20 amlodipine 10 mg tablet 10 mg PO DAILY 03/07/20 furosemide 20 mg tablet 40 mg PO DAILY tab 03/07/20 rotigotine 1 mg/24 hour transdermal 24 hour patch 2 mg TOPICAL DAILY ea 03/07/20 Cephalexin [Keflex] 500 mg PO Q6 #40 cap 03/11/20 potassium chloride 20 mEq tablet,extended release 20 meq PO BID #60 tab 03/21/20 Metoprolol Tartrate [Lopressor (beta declan)] 50 mg PO BID #90 tab 03/29/20
== END 2020-03-29 11:27 | disposition home or self-care (01) | DRG 260 ==
LOC: PCU 03-28 06:21 → CLSP 03-28 06:24 → PCU 03-28 08:12
PROVIDERS: Hospitalist; Admitting Provider Internal Medicine Cardiovascular Disease; PCP Family Medicine; Referring Provider Internal Medicine Cardiovascular Disease; Visit Provider Internal Medicine Cardiovascular Disease
DX: I48.0 Paroxysmal atrial fibrillation (principal); I50.21 Acute systolic (congestive) heart failure; I24.8 Other forms of acute ischemic heart disease; I47.2 Ventricular tachycardia; I49.5 Sick sinus syndrome; I25.10 Atherosclerotic heart disease of native coronary artery without angina pectoris; I11.0 Hypertensive heart disease with heart failure; E78.5 Hyperlipidemia, unspecified; I71.4 Abdominal aortic aneurysm, without rupture; J44.9 Chronic obstructive pulmonary disease, unspecified; G47.33 Obstructive sleep apnea (adult) (pediatric); I25.2 Old myocardial infarction; I73.9 Peripheral vascular disease, unspecified; E78.00 Pure hypercholesterolemia, unspecified; F41.9 Anxiety disorder, unspecified; F32.9 Major depressive disorder, single episode, unspecified; K58.9 Irritable bowel syndrome, unspecified; E66.9 Obesity, unspecified; Z68.28 Body mass index [BMI] 28.0-28.9, adult; Z95.0 Presence of cardiac pacemaker; Z87.01 Personal history of pneumonia (recurrent); Z86.16 Personal history of COVID-19; Z86.19 Personal history of other infectious and parasitic diseases; Z79.02 Long term (current) use of antithrombotics/antiplatelets; Z79.82 Long term (current) use of aspirin; Z79.899 Other long term (current) drug therapy; F17.200 Nicotine dependence, unspecified, uncomplicated
CPT/HCPCS: 33208; 36415; 36600; 71045; 71046; 80048; 81001; 82728; 82803; 83735; 84132; 84484; 85025; 85027; 85610; 93308; 94002; 94762; 99152; 99153; J7040; J7050; A4216; C1894; J1940

== ENCOUNTER 2020-04-22 09:42 | Inpatient (IN) | payer MEDICARE, MEDICAID, SELFPAY ==
[2019-07-16 09:26] VITALS: BMI 29.5
[2020-03-27 15:42] VITALS: BMI 28.3
[2020-04-22] VITALS (15 sets, daily range): BP systolic 96–119; BP diastolic 64–76; PULSE 104–145; RESP 13–22; TEMP 35.8–36.7; O2SAT 94–100; BMI 30.4; BMI 28.1; BMI 28.2
--- NOTE | 2020-04-22 10:06 | RAD_ITS ---
STUDY: X-RAY CHEST REASON FOR EXAM: Female, 70 years old. chest pain TECHNIQUE: Single AP portable view of the chest. COMPARISON: 03/28/2020 FINDINGS: Left subclavian dual-lead pacemaker which is unchanged. The lungs are clear and expanded. There is no demonstrated pleural abnormality. There is moderate cardiac enlargement. Normal mediastinum and artis. Normal visualized pulmonary arteries. There is atherosclerotic calcification of the aortic arch with tortuosity. Normal visualized thoracic spine. Normal visualized ribs, clavicles, and shoulders. There is no demonstrated abnormality of the visualized soft tissue structures of the upper abdomen. RAD/Chest 1 View (Portable) IMPRESSION: No active disease. Electronically Signed: Daniel Kimbrough MD at 11:03 EST Tel , Service support ,
--- NOTE | 2020-04-22 10:06 | EKG12_ITS ---
Test Reason : CP Blood Pressure : / mmHG Vent. Rate : 138 BPM Atrial Rate : 138 BPM P-R Int : 000 ms QRS Dur : 108 ms QT Int : 334 ms P-R-T Axes : 000 -02 180 degrees QTc Int : 506 ms Atrial fibrillation with rapid ventricular response Incomplete left bundle branch block ST & T wave abnormality, consider lateral ischemia Abnormal ECG Confirmed by HUYEN JEAN-BAPTISTE, TAYLOR ([id number]), assistant editor MAREN GRIMES ([id number]) on 04/25/2020 8:16:04 AM Referred By: HARIKA Confirmed By:TAYLOR MATSON MD
--- NOTE | 2020-04-22 10:07 | ED.VIS.GEN ---
History of Present Illness Chief Complaint: Chest Pain Informant: Patient Narrative: 70-year-old female presenting with chest pain and shortness of breath. Patient describes her chest pain as a tightness in her chest. She states she was feeling unwell this morning and did not want to eat breakfast. Patient also states that she has a long history of atrial fibrillation and is anticoagulated on Xarelto. She takes metoprolol as well. Patient states that she recently had a pacemaker placed, but also states that her heart rate has been tachycardic since that time. Patient denies fever, chills, change in taste or smell. Past Medical History - Allergies and Home Meds Allergies/Adverse Reactions: Allergies lisinopril Allergy (Verified 04/22/20 09:43) tongue swelling Surgical History: noncontributory, - - LE intervention for PAD per Dr. Gar, cardiac catheterizations w/ total PCI x 7, Lower back injections, DIOMEDES, T+A, R foot surgery. Smoking Status: Current every day smoker - Family History Maternal Family History: Family History (Last Reviewed 02/02/20 @ 12:33 by Yoanna Gonzales) Father Heart disease Hypertension Seizures Sister CVA (cerebral vascular accident) Hypertension Other Family history of hypertension Family History: Reports: Diabetes, High Cholesterol, Heart Disease, Hypertension, Stroke Paternal Family History: Family History (Last Reviewed 02/02/20 @ 12:33 by Yoanna Gonzales) Father Heart disease Hypertension Seizures Sister CVA (cerebral vascular accident) Hypertension Other Family history of hypertension Family History: Reports: Diabetes, High Cholesterol, Heart Disease, Hypertension, Stroke Review of Systems General: Denies: Chills, Fever, Sweats Eyes: Denies: Visual changes - bilaterally, Diplopia ENT: Denies: Rhinorrhea, Sore throat Cardiovascular: Reports: Chest pain, Heart racing Respiratory: Reports: Dyspnea. Denies: Cough Gastrointestinal: Reports: Nausea. Denies: Abdominal pain, Vomiting Genitourinary: Denies: Dysuria, Hematuria Musculoskeletal: Denies: Myalgias, Arthralgias Skin: Denies: Rash, Abscess Neurological: Denies: Headache, Weakness, Parasthesia, Numbness Psych: Denies: Depression, Anxiety Physical Exam Vital Signs/Narrative: Vital Signs Temp Pulse Resp BP Pulse Ox 04/22/20 09:49 132 H 18 94 04/22/20 09:45 96.8 F L 140 H 13 112/76 97 Inital Vital Signs reviewed: Yes General: Well nourished Head: Normocephalic, Atraumatic Eyes: Perrl, EOMI ENT: Moist mucous membranes, No rhinorrhea Cardiovascular: Irregular, Tachycardia Respiratory: No distress, CTA bilaterally Extremities: Nontender, No edema Skin: Normal color, No rash. Negative for: Cyanosis, Diaphoresis Neurological: Alert, Oriented x3, Cranial nerves II-XII grossly intact Psychological: Normal affect, Normal Mood Diagnostic/Tx/Re-eval Clinical Impression(s) from Imaging Studies Chest X-Ray 04/22/20 10:06 IMPRESSION: No active disease. Electronically Signed: Daniel Kimbrough MD at 11:03 EST Tel , Service support , Laboratory Data 04/22/20 04/22/20 04/22/20 10:00 10:00 10:17 WBC 6.5 RBC 3.49 L Hgb 9.3 L Hct 30.0 L MCV 86.0 MCH 26.6 L MCHC 31.0 L RDW Std Deviation 44.5 H RDW Coeff of Natalie 14.6 Plt Count 240 MPV 10.2 Immature Gran % (Auto) 0.300 Neut % (Auto) 74.1 H Lymph % (Auto) 13.6 L [place] % (Auto) 10.0 Eos % (Auto) 1.7 Baso % (Auto) 0.3 Absolute Neuts (auto) 4.8 Absolute Lymphs (auto) 0.88 Nucleated RBC % 0 Sodium 134 L Potassium 3.6 Chloride 100 Carbon Dioxide 27.0 Anion Gap 7 BUN 33 H Creatinine 1.32 H Estim Creat Clear Calc 30.92 Est GFR (MDRD) Af Amer 51 L Est GFR (MDRD) Non-Af 42 L BUN/Creatinine Ratio 25.0 H Glucose 112 H Calcium 8.9 Troponin I < 0.015 B-Natriuretic Peptide 534.3 H - Rhythm Strip Rhythm Strip: A-fib Rate: 138 - EKG Initial EKG Interpretation: Atrial Fibrillation - RVR at 138 bpm - Medical Decision Making 70-year-old female presenting with chest pain and shortness of breath. She states she has been tachycardic since she had a pacemaker put in. Today she just felt generally unwell with her chest pain and shortness of breath. She denies fever, chills, change in taste or smell, exposure to Covid. Patient's EKG performed on arrival and interpreted by myself shows atrial fibrillation with rapid ventricular response at 138 bpm. Chest x-ray is interpreted by myself shows no acute process. Radiology does agree. Patient's troponin is negative. Her BNP is elevated over 500. And is slightly increased as well. Patient was given Cardizem 20 mg however her blood pressure is about 100 systolic when she is done. It did drop a little bit lower however heart rate did not significantly respond and at rest she is about 115 to 120 bpm. I did speak with Dr. Shepard who recommended that we admit the patient for monitoring given that her heart rate has been fast for a while. Patient was discussed with hospitalist and we will do 1 more dose of Lopressor in the ER. After this we will determine whether that she needs to change medications such as digoxin. Patient was counseled on findings and admission plan. She is comfortable at this point. Impression: 1. A. fib RVR 2. SAM 3. Chest pain ED Disposition - Plan for ED Patient:
[2020-04-22 10:15] LABS: Absolute Lymphocyte Count 0.88 X10^3/uL (0.83-4.51); Absolute Neutrophil Count 4.8 X10^3/uL (2.0-7.7); Basophil# 0.02 X10^3/uL; Basophil% 0.3 % (0-1); Eosinophil# 0.11 X10^3/uL; Eosinophils% 1.7 % (0-5); Hemoglobin 9.3 g/dL (12.0-15.0); Lymphocyte # 0.88 X10^3/ul (4.0); Lymphocyte % 13.6 % (19-41); Mean Corpuscular Hgb 26.6 pg (27.0-32.0); Mean Platelet Vol. 10.2 fl (6.2-12.0); Monocyte# 0.65 X10^3/uL; NRBC Flagged by Analyzer 0 % (0-5); Neutrophil # 4.81 X10^3/uL (2.7-7.7); Neutrophil % 74.1 % (47-70); Platelet Count 240 K/mm3 (150-450); RBC Distribution Width CV 14.6 % (11.6-14.6); RBC Distribution Width SD 44.5 fl (35.1-43.9); Red Blood Count 3.49 M/mm3 (4.2-5.4); White Blood Count 6.5 K/mm3 (4.4-11.0)
[2020-04-22] MEDS: dilTIAZem 25 MG/5 ML Vial 20 MG IV BOLUS (10:21)
[2020-04-22] MEDS: 0.9% Normal Saline 1,000 ML 1000 ML IV (10:21)
[2020-04-22 10:40] LABS: Anion Gap 7 (5-15); BUN 33 mg/dL (7-18); Calcium,Total 8.9 mg/dL (8.5-10.1); Chloride 100 mmol/L (98-107); Creatinine, Serum 1.32 mg/dL (0.55-1.02); EST Glomerular Filtration Rate 42 mL/min (>60); Est Glom Filt Rate - Afr Amer 51 mL/min (>60); Estimated Creatinine Clearance 30.92 ml/min; Glucose 112 mg/dL (74-106); Potassium 3.6 mmol/L (3.5-5.1); Sodium Level 134 mmol/L (136-145)
[2020-04-22 10:44] LABS: BNP,B-Type NATRIURETIC PEPTIDE 534.3 pg/mL (0-100)
[2020-04-22] MEDS: Metoprolol Tartrate 5 MG/5 ML Vial IV (12:27)
--- NOTE | 2020-04-22 13:42 | HP.PCM_ITS ---
<Werner Prince - Last Filed: 04/22/20 13:42> Problem List (1) Atrial fibrillation with RVR Status: Acute (2) Persistent atrial fibrillation Status: Chronic (3) Tachy-erica syndrome Status: Chronic (4) History of coronary artery stent placement Status: Chronic Comment: [id number] LCx and OM 03/20/99; PCI-CARMEN of distal RCA and POBA-ostium of posterolateral branch for stent jailing; PCI-CARMEN to RCA and PDA 02/20; PCI-CARMEN to ISR-RCA 04/21/2015; [id number] RPDA w/ 2.5 x 24 mm Promus Stent and Distal RCA w/ 3.0 x 16 mm Promus Stent and POBA Ostial RPLB 03/18/2019 (5) Abdominal aortic aneurysm (AAA) Status: Chronic Comment: Redemonstration of infrarenal abdominal aortic aneurysm measuring up to 4.4 cm x 4.4 cm essentially similar to previous exam. 01/21/2019 (6) Essential (primary) hypertension Status: Chronic (7) HLD (hyperlipidemia) Status: Chronic (8) Peripheral vascular occlusive disease Status: Chronic Comment: Bilateral SFA stents. Occluded Right SFA and angioplasty of in-stent stenosis of her left SFA. History of Present Illness Date of Admission: 04/22/20 Chief Complaint: Chest pain The patient is a 70 year old F past medical history notable for paroxysmal atrial fibrillation, tachybradycardia syndrome with a recent pacemaker kathryn cement, CAD with prior stents, peripheral artery disease with prior stents, ischemic cardiomyopathy, systolic congestive heart failure, struct of sleep apnea, who presented to the emergency room with complains of chest pain. She woke up with this pain this morning. It is described as a chest pressure across her entire anterior chest. She has some shortness of breath, lightheadedness, dizziness as well. She has a nonproductive cough. She has no notable lower extremity edema. Patient was brought to the emergency room and found to have atrial fibrillation with rapid ventricular response with a heart rate into the 130s and 140s. She was recently here with this as well at which time she was treated with metoprolol and digoxin. Since that last admission she had had her pacemaker placed, this was done by Dr. Treviño. She was given IV Cardizem and Lopressor in the ER with minimal improvement. Patient states that this feels exactly like when she had her last TX. [] Past Medical History Past Medical History (Chronic Problems): Chronic Problems (Last Updated 04/04/20 @ 18:47 by Anuja Gaviria) Non-ischemic cardiomyopathy (Chronic) Persistent atrial fibrillation (Chronic) History of permanent cardiac pacemaker placement (Chronic 03/27/20) Tachy-erica syndrome (Chronic) Sinus pause (Chronic) 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) Atherosclerotic heart disease of [place] coronary artery without angina pectoris (Chronic) Non-STEMI (non-ST elevated myocardial infarction) (Chronic 03/19/19) 04/21/2015, 03/19/2019 History of coronary artery stent placement (Chronic 03/18/19) [id number] LCx and OM 03/20/99; PCI-CARMEN of distal RCA and POBA-ostium of posterolateral branch for stent jailing; PCI-CARMEN to RCA and PDA 02/20; PCI- CARMEN to ISR-RCA 04/21/2015; [id number] RPDA w/ 2.5 x 24 mm Promus Stent and Distal RCA w/ 3.0 x 16 mm Promus Stent and POBA Ostial RPLB 03/18/2019 Paroxysmal atrial fibrillation (Chronic) Abdominal aortic aneurysm (AAA) (Chronic) Redemonstration of infrarenal abdominal aortic aneurysm measuring up to 4.4 cm x 4.4 cm essentially similar to previous exam. 01/21/2019 Essential (primary) hypertension (Chronic) HLD (hyperlipidemia) (Chronic) Peripheral vascular occlusive disease (Chronic) Bilateral SFA stents. Occluded Right SFA and angioplasty of in-stent stenosis of her left SFA. COPD (chronic obstructive pulmonary disease) (Chronic) BELLE (obstructive sleep apnea) (Chronic) Bipap 17/13 cm of H2O Smoking greater than 30 pack years (Chronic) Low-dose CT lung screening due November 2020 Nicotine dependence (Chronic) Medical History: Medical History (Last Updated 04/04/20 @ 18:47 by Anuja Gaviria) Non-ischemic cardiomyopathy (Chronic) I42.8 Persistent atrial fibrillation (Chronic) I48.19 Tachy-erica syndrome (Chronic) I49.5 Sinus pause (Chronic) I45.5 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) I50.43 Atherosclerotic heart disease of [place] coronary artery without angina pectoris (Chronic) I25.10 Non-STEMI (non-ST elevated myocardial infarction) (Chronic) Onset Date: 03/19/19 I21.4 04/21/2015, 03/19/2019 Paroxysmal atrial fibrillation (Chronic) I48.0 Abdominal aortic aneurysm (AAA) (Chronic) I71.4 Redemonstration of infrarenal abdominal aortic aneurysm measuring up to 4.4 cm x 4.4 cm essentially similar to previous exam. 01/21/2019 Essential (primary) hypertension (Chronic) I10 HLD (hyperlipidemia) (Chronic) E78.5 Peripheral vascular occlusive disease (Chronic) I73.9 Bilateral SFA stents. Occluded Right SFA and angioplasty of in-stent stenosis of her left SFA. COPD (chronic obstructive pulmonary disease) (Chronic) J44.9 BELLE (obstructive sleep apnea) (Chronic) G47.33 Bipap 17/13 cm of H2O Smoking greater than 30 pack years (Chronic) F17.210 Low-dose CT lung screening due November 2020 Nicotine dependence (Chronic) F17.200 Anxiety and depression F41.8 Claudication in peripheral vascular disease I73.9 Emphysema of lung J43.9 IBS (irritable bowel syndrome) Obesity E66.9 Angina pectoris (Resolved) I20.9 Atrial fibrillation with RVR (Resolved) I48.91 Paroxsymal COVID-19 Onset Date: 01/01/20 U07.1 Hypokalemia (Resolved) E87.6 Pneumonia due to 2019 novel coronavirus Onset Date: 01/01/20 U07.1, J12.89 Sepsis Onset Date: 01/01/20 A41.9 Unstable angina pectoris due to coronary arteriosclerosis (Resolved) I25.110 Acute on chronic diastolic (congestive) heart failure (Inactive) I50.33 Dyspnea on exertion (Inactive) R06.09 PAD (peripheral artery disease) (Inactive) I73.9 Wheezing (Inactive) R06.2 Allergies lisinopril Allergy (Verified 04/22/20 09:43) tongue swelling Home Medications: Ambulatory Orders Medication Instructions Recorded Amitriptyline HCl [Elavil] 75 mg PO QHS 11/25/13 Multivitamins,Therapeutic 1 tab PO DAILY 11/25/13 [Multivitamin] nitroglycerin 0.4 mg sublingual 0.4 mg SUBLINGUAL Q5M PRN #25 tab 05/20/17 tablet albuterol sulfate 90 mcg/actuation 1 - 2 puff INHALATION Q4H PRN PRN 06/16/18 aerosol inhaler #1 inhaler atorvastatin 40 mg tablet 40 mg PO QHS tab 07/09/19 dicyclomine 10 mg capsule 10 mg PO 4X/DAY 07/09/19 famotidine 20 mg tablet 20 mg PO BID 07/09/19 gabapentin 300 mg capsule 300 mg PO TID 07/09/19 Clopidogrel Bisulfate [Plavix] 75 mg PO QHS 08/30/19 isosorbide mononitrate 60 mg 60 mg PO DAILY tab 10/08/19 tablet,extended release 24 hr Aspirin E.C. [Ecotrin] 81 mg PO DAILY@199911/23/19 Doxazosin Mesylate [Cardura] 2 mg PO QHS 01/02/20 Melatonin 3 mg PO QHS PRN PRN tab 01/06/20 amlodipine 10 mg tablet 10 mg PO DAILY 03/07/20 furosemide 20 mg tablet 40 mg PO DAILY tab 03/07/20 rotigotine 1 mg/24 hour 2 mg TOPICAL DAILY ea 03/07/20 transdermal 24 hour patch potassium chloride 20 mEq 20 meq PO BID #60 tab 03/21/20 tablet,extended release Metoprolol Tartrate [Lopressor 50 mg PO BID #90 tab 03/29/20 (beta declan)] Surgical History: Surgical History (Last Updated 04/04/20 @ 18:49 by Anuja Gaviria) History of permanent cardiac pacemaker placement (Chronic) Onset Date: 03/27/20 Z95.0 History of coronary artery stent placement (Chronic) Onset Date: 03/18/19 Z95.5 [id number] LCx and OM 03/20/99; PCI-CARMEN of distal RCA and POBA-ostium of posterolateral branch for stent jailing; PCI-CARMEN to RCA and PDA 02/20; PCI- CARMEN to ISR-RCA 04/21/2015; [id number] RPDA w/ 2.5 x 24 mm Promus Stent and Distal RCA w/ 3.0 x 16 mm Promus Stent and POBA Ostial RPLB 03/18/2019 History of angioplasty of peripheral vessel Z98.62 Bilateral SFA stents. Occluded Right SFA and angioplasty of in-stent stenosis of her left SFA. History of bilateral leg stents History of bunionectomy of right great toe Z98.890 History of colonoscopy Onset Date: 06/2018 Z98.890 History of hysterectomy Z90.710 History of left heart catheterization Onset Date: 11/25/19 Z98.890 03/20/99, 07/31/99,12/21/02, 06/2003, 02/2007, 12/2010, 04/20/15, 11/25/2019 History of tonsillectomy Z90.89 Hx of APLL Right X2-01/05/15, 11/26/13 Left X2- 02/15/15, 09/23/2016 Hx of hysterectomy Z90.710 Status post left foot surgery Z98.890 Surgical History: noncontributory, - - LE intervention for PAD per Dr. Gar, cardiac catheterizations w/ total PCI x 7, Lower back injections, DIOMEDES, T+A, R foot surgery. 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 Smoking Status: Current every day smoker - *Family History Maternal Family History: Family History (Last Reviewed 04/22/20 @ 13:45 by GABRIELLA Bullock) Father Heart disease Hypertension Seizures Sister CVA (cerebral vascular accident) Hypertension Other Family history of hypertension History Items: Diabetes, High Cholesterol, Heart Disease, Hypertension, Stroke Paternal Family History: Family History (Last Reviewed 04/22/20 @ 13:45 by Werner QUIROZ PA) Father Heart disease Hypertension Seizures Sister CVA (cerebral vascular accident) Hypertension Other Family history of hypertension History Items: Diabetes, High Cholesterol, Heart Disease, Hypertension, Stroke Review of Systems Constitutional: Denies: Chills, Fever, Weight Change HEENT: Denies: Head Aches, Sinus Congestion, Sinus Drainage Cardiovascular: Reports: Chest Pain, Heaviness, Light Headedness. Denies: Palpitations Respiratory: Reports: Shortness of Breath. Denies: Cough, Shortness of breath at rest, Sputum production Gastrointestinal: Denies: Abdominal Pain, Nausea, Vomiting Genitourinary: Denies: Dysuria Musculoskeletal: Denies: Joint Pain, Joint Tenderness, Muscle pain Skin: Denies: Lesions, Rash, Wounds Neurological: Denies: Numbness, Tingling, Focal weakness Psychiatric: Denies: Anxiety, Depression, Homicidal Ideations, Suicidal Ideations Hematologic/ Lymphatic: Denies: Easy Bruising, Easy Bleeding VTE Information - Inpt Only VTE Present on Admission: No VTE Mechan Device Prophylaxis: None VTE Pharm Prophylaxis ordered?: Yes - Physical Exam Vitals/I&O's: Vital Signs Temp Pulse Resp BP Pulse Ox 97.9 F 111 H 16 109/65 95 04/22/20 13:19 04/22/20 13:19 04/22/20 13:19 04/22/20 13:19 04/22/20 13:19 Oxygen Flow Rate (L/min) 2 Oxygen Delivery Method Room Air Weight: 154 lb 1.6 oz Body Mass Index (BMI) 28.1 Intake and Output for Last 24 Hours 04/20/20 04/21/20 04/22/20 23:59 23:59 23:59 Intake Total 1000 / 1000 Balance 1000 / 1000 General: Alert, Oriented x3, Cooperative HEENT: Atraumatic, PERRLA, EOMI, Normocephalic Neck: Supple, No JVD, Negative Carotid Bruits Lungs: Clear to auscultation, Normal air movement Cardiovascular: No murmurs, Irregular Rate, Tachycardic Abdomen: Bowel Sounds Present, Soft, Non Tender Extremities: No edema, Capillary Refill Less than 3 Seconds Skin: No rashes, No breakdown Musculoskeletal: No Tenderness to Palpation of Joints or Extremities Neurological: Cranial nerves II-XII grossly intact Psych/Mental Status: Normal Affect, Appropriate, Alert and oriented to time, place, person, mood and affect Laboratory Results 04/22/20 10:00: WBC 6.5, RBC 3.49 L, Hgb 9.3 L, Hct 30.0 L, MCV 86.0, MCH 26.6 L , MCHC 31.0 L, RDW Std Deviation 44.5 H, RDW Coeff of Natalie 14.6, Plt Count 240, MPV 10.2, Immature Gran % (Auto) 0.300, Neut % (Auto) 74.1 H, Lymph % (Auto) 13.6 L, [place] % (Auto) 10.0, Eos % (Auto) 1.7, Baso % (Auto) 0.3, Absolute Neuts (auto) 4.8, Absolute Lymphs (auto) 0.88, Nucleated RBC % 0 04/22/20 10:00: Sodium 134 L, Potassium 3.6, Chloride 100, Carbon Dioxide 27.0, Anion Gap 7, BUN 33 H, Creatinine 1.32 H, Estim Creat Clear Calc 30.92, Est GFR (MDRD) Af Amer 51 L, Est GFR (MDRD) Non-Af 42 L, BUN/Creatinine Ratio 25.0 H, Glucose 112 H, Calcium 8.9, Troponin I < 0.015 04/22/20 10:17: B-Natriuretic Peptide 534.3 H Current Medications Acetaminophen (Acetaminophen 325 Mg Tablet) 650 mg PO Q6H PRN PRN PRN Reason: Pain Score 1-10/Temp > 100.7 F Amitriptyline HCl (Amitriptyline 25 Mg Tablet) 75 mg PO QHS JARED Aspirin (Aspirin E.C. 81 Mg Tablet) 81 mg PO DAILY@2000 JARED Atorvastatin Calcium (Atorvastatin Calcium 40 Mg Tablet) 40 mg PO QHS JARED Clopidogrel Bisulfate (Clopidogrel Bisulfate 75 Mg Tablet) 75 mg PO QHS JARED Famotidine (Famotidine 20 Mg Tablet) 20 mg PO QHS JARED Gabapentin (Gabapentin 300 Mg Capsule) 300 mg PO TID JARED Sodium Chloride () 1,000 mls @ 75 mls/hr IV .[id number] JARED Melatonin (Melatonin 3 Mg Tablet) 3 mg PO QHS PRN PRN PRN Reason: INSOMNIA Metoprolol Tartrate (Metoprolol Tartrate 50 Mg Tablet) 75 mg PO BID JARED Ondansetron HCl (Ondansetron 4 Mg/2 Ml Vial) 4 mg IV Q8H PRN PRN PRN Reason: NAUSEA/VOMITING Assessment/Plan All Active Problems (Last Updated 04/04/20 @ 18:47 by Anuja Gaviria) Atrial fibrillation with RVR (Acute) Angina pectoris (Resolved) Atrial fibrillation with RVR (Resolved) Atypical chest pain (Resolved) Chest pain (Resolved) Chest pain (Resolved 01/01/20) Encephalopathy acute (Resolved) Hypokalemia (Resolved) Pneumonia (Resolved) Preop cardiovascular exam (Resolved) Unstable angina pectoris due to coronary arteriosclerosis (Resolved) 1. Atrial fibrillation with rapid ventricular response-history of paroxysmal atrial fibrillation, recent admission with the same. Patient already treated with IV Cardizem and metoprolol with minimal improvement. Will continue home metoprolol. Last admission required digoxin. Will consult cardiology. It does not appear that she is on oral anticoagulation. 2. History of tachybradycardia syndrome with recent pacer placement by Dr. Treviño. 3. Chest pain-patient states that this feels exactly like her last TX. We will cycle troponins. EKG shows A. fib RVR, will need a repeat EKG when her rate is better controlled. Initial troponin is negative. 4. History of systolic congestive heart failure-she does have some rales on exam, elevated BNP, and shortness of breath. She does not have increased oxygen demand at this time. Continue home Lasix, trial IV x1. 5. CAD with prior multiple stents-10 in the past-continue aspirin, statin, Imdur, metoprolol DVT prophylaxis: Lovenox This patient was seen by Werner Prince PA-C under the supervision of Doctor Ryne. <Josias Michele F - Last Filed: 04/22/20 15:38> History of Present Illness The patient is a 70 year old F [] Past Medical History Medical History: Medical History (Last Updated 04/04/20 @ 18:47 by Anuja Gaviria) Non-ischemic cardiomyopathy (Chronic) I42.8 Persistent atrial fibrillation (Chronic) I48.19 Tachy-erica syndrome (Chronic) I49.5 Sinus pause (Chronic) I45.5 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) I50.43 Atherosclerotic heart disease of [place] coronary artery without angina pectoris (Chronic) I25.10 Non-STEMI (non-ST elevated myocardial infarction) (Chronic) Onset Date: 03/19/19 I21.4 04/21/2015, 03/19/2019 Paroxysmal atrial fibrillation (Chronic) I48.0 Abdominal aortic aneurysm (AAA) (Chronic) I71.4 Redemonstration of infrarenal abdominal aortic aneurysm measuring up to 4.4 cm x 4.4 cm essentially similar to previous exam. 01/21/2019 Essential (primary) hypertension (Chronic) I10 HLD (hyperlipidemia) (Chronic) E78.5 Peripheral vascular occlusive disease (Chronic) I73.9 Bilateral SFA stents. Occluded Right SFA and angioplasty of in-stent sten osis of her left SFA. COPD (chronic obstructive pulmonary disease) (Chronic) J44.9 BELLE (obstructive sleep apnea) (Chronic) G47.33 Bipap 17/13 cm of H2O Smoking greater than 30 pack years (Chronic) F17.210 Low-dose CT lung screening due November 2020 Nicotine dependence (Chronic) F17.200 Anxiety and depression F41.8 Claudication in peripheral vascular disease I73.9 Emphysema of lung J43.9 IBS (irritable bowel syndrome) Obesity E66.9 Angina pectoris (Resolved) I20.9 Atrial fibrillation with RVR (Resolved) I48.91 Paroxsymal COVID-19 Onset Date: 01/01/20 U07.1 Hypokalemia (Resolved) E87.6 Pneumonia due to 2019 novel coronavirus Onset Date: 01/01/20 U07.1, J12.89 Sepsis Onset Date: 01/01/20 A41.9 Unstable angina pectoris due to coronary arteriosclerosis (Resolved) I25.110 Acute on chronic diastolic (congestive) heart failure (Inactive) I50.33 Dyspnea on exertion (Inactive) R06.09 PAD (peripheral artery disease) (Inactive) I73.9 Wheezing (Inactive) R06.2 Allergies lisinopril Allergy (Verified 04/22/20 09:43) tongue swelling Surgical History: Surgical History (Last Updated 04/04/20 @ 18:49 by Anuja Gaviria) History of permanent cardiac pacemaker placement (Chronic) Onset Date: 03/27/20 Z95.0 History of coronary artery stent placement (Chronic) Onset Date: 03/18/19 Z95.5 [id number] LCx and OM 03/20/99; PCI-CARMEN of distal RCA and POBA-ostium of posterolateral branch for stent jailing; PCI-CARMEN to RCA and PDA 02/20; PCI- CARMEN to ISR-RCA 04/21/2015; [id number] RPDA w/ 2.5 x 24 mm Promus Stent and Distal RCA w/ 3.0 x 16 mm Promus Stent and POBA Ostial RPLB 03/18/2019 History of angioplasty of peripheral vessel Z98.62 Bilateral SFA stents. Occluded Right SFA and angioplasty of in-stent stenosis of her left SFA. History of bilateral leg stents History of bunionectomy of right great toe Z98.890 History of colonoscopy Onset Date: 06/2018 Z98.890 History of hysterectomy Z90.710 History of left heart catheterization Onset Date: 11/25/19 Z98.890 03/20/99, 07/31/99,12/21/02, 06/2003, 02/2007, 12/2010, 04/20/15, 11/25/2019 History of tonsillectomy Z90.89 Hx of APLL Right X2-01/05/15, 11/26/13 Left X2- 02/15/15, 09/23/2016 Hx of hysterectomy Z90.710 Status post left foot surgery Z98.890 - *Family History Maternal Family History: Family History (Last Reviewed 04/22/20 @ 13:45 by Werner QUIROZ PA) Father Heart disease Hypertension Seizures Sister CVA (cerebral vascular accident) Hypertension Other Family history of hypertension Paternal Family History: Family History (Last Reviewed 04/22/20 @ 13:45 by Werner QUIROZ, PA) Father Heart disease Hypertension Seizures Sister CVA (cerebral vascular accident) Hypertension Other Family history of hypertension - Physical Exam Vitals/I&O's: Vital Signs Temp Pulse Resp BP Pulse Ox 97.9 F 145 H 16 109/65 95 04/22/20 13:19 04/22/20 15:25 04/22/20 13:19 04/22/20 15:25 04/22/20 13:19 Oxygen Flow Rate (L/min) 2 Oxygen Delivery Method Room Air Weight: 154 lb 1.6 oz Body Mass Index (BMI) 28.1 Intake and Output for Last 24 Hours 04/20/20 04/21/20 04/22/20 23:59 23:59 23:59 Intake Total 1000 / 1000 Balance 1000 / 1000 Laboratory Results 04/22/20 10:00: WBC 6.5, RBC 3.49 L, Hgb 9.3 L, Hct 30.0 L, MCV 86.0, MCH 26.6 L , MCHC 31.0 L, RDW Std Deviation 44.5 H, RDW Coeff of Natalie 14.6, Plt Count 240, MPV 10.2, Immature Gran % (Auto) 0.300, Neut % (Auto) 74.1 H, Lymph % (Auto) 13.6 L, [place] % (Auto) 10.0, Eos % (Auto) 1.7, Baso % (Auto) 0.3, Absolute Neuts (auto) 4.8, Absolute Lymphs (auto) 0.88, Nucleated RBC % 0 04/22/20 10:00: Sodium 134 L, Potassium 3.6, Chloride 100, Carbon Dioxide 27.0, Anion Gap 7, BUN 33 H, Creatinine 1.32 H, Estim Creat Clear Calc 30.92, Est GFR (MDRD) Af Amer 51 L, Est GFR (MDRD) Non-Af 42 L, BUN/Creatinine Ratio 25.0 H, Glucose 112 H, Calcium 8.9, Troponin I < 0.015 04/22/20 10:17: B-Natriuretic Peptide 534.3 H 04/22/20 14:00: Troponin I < 0.015 Current Medications Acetaminophen (Acetaminophen 325 Mg Tablet) 650 mg PO Q6H PRN PRN PRN Reason: Pain Score 1-10/Temp > 100.7 F Amitriptyline HCl (Amitriptyline 25 Mg Tablet) 75 mg PO QHS JARED Aspirin (Aspirin E.C. 81 Mg Tablet) 81 mg PO DAILY@2000 JARED Atorvastatin Calcium (Atorvastatin Calcium 40 Mg Tablet) 40 mg PO QHS JARED Clopidogrel Bisulfate (Clopidogrel Bisulfate 75 Mg Tablet) 75 mg PO QHS JARED Digoxin (Digoxin 250 Mcg/Ml Ampul) 125 mcg IV DAILY JARED Famotidine (Famotidine 20 Mg Tablet) 20 mg PO QHS JARED Gabapentin (Gabapentin 300 Mg Capsule) 300 mg PO TID JARED Sodium Chloride () 1,000 mls @ 75 mls/hr IV .[id number] JARED Melatonin (Melatonin 3 Mg Tablet) 3 mg PO QHS PRN PRN PRN Reason: INSOMNIA Metoprolol Tartrate (Metoprolol Tartrate 50 Mg Tablet) 75 mg PO BID JARED Ondansetron HCl (Ondansetron 4 Mg/2 Ml Vial) 4 mg IV Q8H PRN PRN PRN Reason: NAUSEA/VOMITING Addendum: Dr. Michele I personally examined the patient and reviewed the chart. I agree with the above. 70-year-old female presents from home with chest pain, shortness of breath and just not feeling right today. In the ER she was found to be in A. fib with RVR as well as SAM, she was initially given a bolus of 20 of Cardizem and then 5 of Lopressor to control her heart rate however she has maintained in the 110's to 130's. She is already on Xarelto as well as metoprolol she said that she has had a pacemaker placed but states that she has been tachycardic since that time. Will obtain troponins, will increase metoprolol from 50 twice daily to 75 twice daily. And will consult cardiology for assistance. She may need amiodarone or digoxin depending on what her blood pressures can support.
--- NOTE | 2020-04-22 15:18 | CON.PCM_ITS ---
Reason for Consult Date of Consultation: 04/22/20 History of Present Illness: The patient is a 70 year old F [, patient seen and evaluated today at bedside, along with the nursing staff daughter at bedside at time of evaluation Presented to the ER with the symptoms of chest pressure. Patient has extensive cardiac history with multiple coronary stents to the distal left circumflex and right coronary artery last cardiac authorization was in March 18, 2019 which she had PCI and stent of distal RCA and RPDA. Also patient had a history of persistent atrial fibrillation with tachybradycardia arrhythmia and had pacemaker recently in March 27, 2020 her primary hospice massage therapist She been on treatment with beta-declan for A. fib control with digoxin and anticoagulation Xarelto. Also patient had a history of peripheral vascular disease with bilateral SFA/stent Patient continues to smoke, lives at home with the daughter and grandson and had history of COPD, acute on chronic diastolic heart failure, hypertension, hyperlipidemia Cardiac exam underlying cardiac rhythm is A. fib with RVR There is no heart murmur Review of the electrocardiogram showed A. fib with RVR with incomplete left bundle branch block As well there is ST?T wave abnormality clearly demonstrated in the lateral leads. Assessment and plan; 1. We will hold on Xarelto 2. We will start on IV heparin tomorrow for clinical diagnosis of acute coronary syndrome/to rule out RI Initial set of cardiac biomarkers have been negative 3. For better rate control will add digoxin to the current dose of beta-declan 4. We will start on low-dose nitroglycerin as needed. 5. We will evaluate with Lexiscan sestamibi marker perfusion study on Friday, to assess for patency of her coronary stent And evaluate for progression of CAD. Explained cardiac care plan in detail to the patient, daughter and nursing staff. Her primary hospice massage therapist will resume cardiac care plan on Friday. Past Medical History Allergies/Adverse Reactions: Allergies lisinopril Allergy (Verified 04/22/20 09:43) tongue swelling Home Medications: Ambulatory Orders Medication Instructions Recorded Amitriptyline HCl [Elavil] 75 mg PO QHS 11/25/13 Multivitamins,Therapeutic 1 tab PO DAILY 11/25/13 [Multivitamin] nitroglycerin 0.4 mg sublingual 0.4 mg SUBLINGUAL Q5M PRN #25 tab 05/20/17 tablet albuterol sulfate 90 mcg/actuation 1 - 2 puff INHALATION Q4H PRN PRN 06/16/18 aerosol inhaler #1 inhaler atorvastatin 40 mg tablet 40 mg PO QHS tab 07/09/19 dicyclomine 10 mg capsule 10 mg PO 4X/DAY 07/09/19 famotidine 20 mg tablet 20 mg PO BID 07/09/19 gabapentin 300 mg capsule 300 mg PO TID 07/09/19 Clopidogrel Bisulfate [Plavix] 75 mg PO QHS 08/30/19 isosorbide mononitrate 60 mg 60 mg PO DAILY tab 10/08/19 tablet,extended release 24 hr Aspirin E.C. [Ecotrin] 81 mg PO DAILY@199911/23/19 Doxazosin Mesylate [Cardura] 2 mg PO QHS 01/02/20 Melatonin 3 mg PO QHS PRN PRN tab 01/06/20 amlodipine 10 mg tablet 10 mg PO DAILY 03/07/20 furosemide 20 mg tablet 40 mg PO DAILY tab 03/07/20 rotigotine 1 mg/24 hour 2 mg TOPICAL DAILY ea 03/07/20 transdermal 24 hour patch potassium chloride 20 mEq 20 meq PO BID #60 tab 03/21/20 tablet,extended release Metoprolol Tartrate [Lopressor 50 mg PO BID #90 tab 03/29/20 (beta declan)] Past Medical History (Chronic Problems): Chronic Problems (Last Updated 04/04/20 @ 18:47 by Anuja Gaviria) Non-ischemic cardiomyopathy (Chronic) Persistent atrial fibrillation (Chronic) History of permanent cardiac pacemaker placement (Chronic 03/27/20) Tachy-erica syndrome (Chronic) Sinus pause (Chronic) 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) Atherosclerotic heart disease of [place] coronary artery without angina pectoris (Chronic) Non-STEMI (non-ST elevated myocardial infarction) (Chronic 03/19/19) 04/21/2015, 03/19/2019 History of coronary artery stent placement (Chronic 03/18/19) [id number] LCx and OM 03/20/99; PCI-CARMEN of distal RCA and POBA-ostium of posterolateral branch for stent jailing; PCI-CARMEN to RCA and PDA 02/20; PCI- CARMEN to ISR-RCA 04/21/2015; WCL-BHJ-Flcg RPDA w/ 2.5 x 24 mm Promus Stent and Distal RCA w/ 3.0 x 16 mm Promus Stent and POBA Ostial RPLB 03/18/2019 Paroxysmal atrial fibrillation (Chronic) Abdominal aortic aneurysm (AAA) (Chronic) Redemonstration of infrarenal abdominal aortic aneurysm measuring up to 4.4 cm x 4.4 cm essentially similar to previous exam. 01/21/2019 Essential (primary) hypertension (Chronic) HLD (hyperlipidemia) (Chronic) Peripheral vascular occlusive disease (Chronic) Bilateral SFA stents. Occluded Right SFA and angioplasty of in-stent stenosis of her left SFA. COPD (chronic obstructive pulmonary disease) (Chronic) BELLE (obstructive sleep apnea) (Chronic) Bipap 17/13 cm of H2O Smoking greater than 30 pack years (Chronic) Low-dose CT lung screening due November 2020 Nicotine dependence (Chronic) Surgical History: noncontributory, - - LE intervention for PAD per Dr. Gar, cardiac catheterizations w/ total PCI x 7, Lower back injections, DIOMEDES, T+A, R foot surgery. Psychiatric History: Anxiety, Depression STATEMENT PROCESSOR History: No pertinent STATEMENT PROCESSOR history - *Family History Maternal Family History: Family History (Last Reviewed 04/22/20 @ 13:45 by Werner QUIROZ, PA) Father Heart disease Hypertension Seizures Sister CVA (cerebral vascular accident) Hypertension Other Family history of hypertension History Items: Diabetes, High Cholesterol, Heart Disease, Hypertension, Stroke Paternal Family History: Family History (Last Reviewed 04/22/20 @ 13:45 by Werner QUIROZ, PA) Father Heart disease Hypertension Seizures Sister CVA (cerebral vascular accident) Hypertension Other Family history of hypertension History Items: Diabetes, High Cholesterol, Heart Disease, Hypertension, Stroke Smoking Status: Current every day smoker Objective: Vital Signs Temp Pulse Resp BP Pulse Ox 97.9 F 111 H 16 109/65 95 04/22/20 13:19 04/22/20 13:19 04/22/20 13:19 04/22/20 13:19 04/22/20 13:19 Oxygen Flow Rate (L/min) 2 Oxygen Delivery Method Room Air Weight: 154 lb 1.6 oz Body Mass Index (BMI) 28.1 Intake and Output for Last 24 Hours 04/20/20 04/21/20 04/22/20 23:59 23:59 23:59 Intake Total 1000 / 1000 Balance 1000 / 1000 General: Awake, Alert, Oriented x 3 HEENT: PERRL, EOMI, Sclera Non Icteric Neck: Supple, Good ROM, No Lymph Node Enlargement Lungs: Clear to auscultation Cardiovascular: Regular Rhythm, Normal S1, Normal S2, No Murmurs, No Rubs, No Gallops 04/22/20 10:00: WBC 6.5, RBC 3.49 L, Hgb 9.3 L, Hct 30.0 L, MCV 86.0, MCH 26.6 L , MCHC 31.0 L, Plt Count 240, MPV 10.2, Immature Gran % (Auto) 0.300, Neut % (Auto) 74.1 H, Lymph % (Auto) 13.6 L, [place] % (Auto) 10.0, Eos % (Auto) 1.7, Baso % (Auto) 0.3, Absolute Neuts (auto) 4.8, Nucleated RBC % 0 04/22/20 10:00: Sodium 134 L, Potassium 3.6, Chloride 100, Carbon Dioxide 27.0, Anion Gap 7, BUN 33 H, Creatinine 1.32 H, Est GFR (MDRD) Af Amer 51 L, Est GFR (MDRD) Non-Af 42 L, BUN/Creatinine Ratio 25.0 H, Glucose 112 H, Calcium 8.9, Troponin I < 0.015 04/22/20 10:17: B-Natriuretic Peptide 534.3 H 04/22/20 14:00: Troponin I < 0.015 Rhythm: A. fib with RVR EKG: Atrial fibrillation with rapid ventricular rate, incomplete left bundle branch block, ST?T wave abnormality with lateral myocardial ischemia.
[2020-04-22] MEDS: Digoxin 250 MCG/ML Ampul IV (15:25)
[2020-04-22] MEDS: Gabapentin 300 MG Capsule PO ×2 (16:00→21:25)
[2020-04-22] MEDS: 0.9% Normal Saline 1,000 ML 75 ML IV (16:00)
[2020-04-22] MEDS: Metoprolol Tartrate 50 MG Tablet 75 MG PO (18:58)
[2020-04-22] MEDS: Aspirin E.C. 81 MG Tablet PO (19:52)
[2020-04-22] MEDS: Amitriptyline 25 MG Tablet 75 MG PO (21:24)
[2020-04-22] MEDS: Atorvastatin Calcium 40 MG Tablet PO (21:24)
[2020-04-22] MEDS: SALMETEROL IH (21:25)
[2020-04-22] MEDS: FLUTICASONE PROPION IH (21:25)
[2020-04-22] MEDS: Famotidine 20 MG Tablet PO (21:25)
[2020-04-22] MEDS: Clopidogrel Bisulfate 75 MG Tablet PO (21:25)
[2020-04-23] VITALS (13 sets, daily range): BP systolic 100–118; BP diastolic 45–74; PULSE 98–123; RESP 16–18; TEMP 36.3–36.9; O2SAT 88–99
[2020-04-23] MEDS: Metoprolol Tartrate 5 MG/5 ML Vial IV (03:13)
[2020-04-23] MEDS: 0.9% Normal Saline 1,000 ML 75 ML IV ×2 (03:13→16:58)
[2020-04-23] MEDS: Gabapentin 300 MG Capsule PO ×3 (05:52→22:41)
[2020-04-23 07:21] LABS: Absolute Lymphocyte Count 0.95 X10^3/uL (0.83-4.51); Basophil# 0.05 X10^3/uL; Basophil% 0.7 % (0-1); Eosinophil# 0.14 X10^3/uL; Eosinophils% 2.1 % (0-5); Hematocrit 31.6 % (37-47); Hemoglobin 9.5 g/dL (12.0-15.0); Lymphocyte # 0.95 X10^3/ul (4.0); Lymphocyte % 14.2 % (19-41); Mean Corp Hgb Conc 30.1 g/dL (32-36); Mean Corpuscular Hgb 26.8 pg (27.0-32.0); Mean Platelet Vol. 10.5 fl (6.2-12.0); Monocyte# 0.54 X10^3/uL; Monocyte% 8.1 % (0-10); NRBC Flagged by Analyzer 0 % (0-5); Neutrophil # 4.99 X10^3/uL (2.7-7.7); Neutrophil % 74.6 % (47-70); Platelet Count 223 K/mm3 (150-450); RBC Distribution Width CV 14.6 % (11.6-14.6); RBC Distribution Width SD 46.7 fl (35.1-43.9); Red Blood Count 3.55 M/mm3 (4.2-5.4); White Blood Count 6.7 K/mm3 (4.4-11.0)
[2020-04-23 07:50] LABS: Anion Gap 9 (5-15); BUN 39 mg/dL (7-18); BUN/Creat Ratio 29.8 RATIO (10-20); Calcium,Total 8.3 mg/dL (8.5-10.1); Chloride 104 mmol/L (98-107); Creatinine, Serum 1.31 mg/dL (0.55-1.02); EST Glomerular Filtration Rate 43 mL/min (>60); Est Glom Filt Rate - Afr Amer 51 mL/min (>60); Estimated Creatinine Clearance 31.15 ml/min; Glucose 88 mg/dL (74-106); Potassium 3.2 mmol/L (3.5-5.1); Sodium Level 139 mmol/L (136-145)
[2020-04-23] MEDS: SALMETEROL IH ×2 (09:25→22:43)
[2020-04-23] MEDS: FLUTICASONE PROPION IH ×2 (09:25→22:43)
[2020-04-23] MEDS: Metoprolol Tartrate 50 MG Tablet 75 MG PO ×2 (09:25→22:40)
[2020-04-23] MEDS: Digoxin 250 MCG/ML Ampul 125 MCG IV (09:25)
--- NOTE | 2020-04-23 11:02 | PN_ITS ---
Patient Problems: Active and Suspected Problems (Last Updated 04/04/20 @ 18:47 by Anuja Gaviria) Atrial fibrillation with RVR (Acute) Subjective: Doing better, got some sleep overnight. Heart rate is little bit better controlled. No chest pain Vitals/I&O's: Vital Signs Temp Pulse Resp BP Pulse Ox 98.3 F 102 H 18 103/45 L 98 04/23/20 09:28 04/23/20 09:28 04/23/20 09:28 04/23/20 09:28 04/23/20 09:28 Oxygen Flow Rate (L/min) 2 Oxygen Delivery Method Room Air Weight: 154 lb 1.6 oz Body Mass Index (BMI) 28.1 Intake and Output for Last 24 Hours 04/21/20 04/22/20 04/23/20 23:59 23:59 23:59 Intake Total 1200 / 1200 1240 / 1240 Output Total 1800 / 1800 Balance -600 / -600 1240 / 1240 General: Alert, Oriented x3, Cooperative, No apparent distress HEENT: Atraumatic, PERRLA, EOMI, Normocephalic Oral: Moist Mucosa Neck: Supple, No JVD Lungs: Clear to auscultation, Normal air movement, No rhonchi, No wheeze, No rales, Diminished Cardiovascular: Regular Rhythm, Normal S1, Normal S2, No murmurs, Tachycardic Abdomen: Soft, Non Tender, Non-Distended, No Hepato-splenomegaly Extremities: No edema, Capillary Refill Less than 3 Seconds Skin: No rashes, No breakdown Neurological: Neuro grossly intact, Sensory exam intact to light touch and pain Psych/Mental Status: Normal Affect, Appropriate Laboratory Results 04/22/20 14:00: Troponin I < 0.015 04/22/20 16:55: Troponin I < 0.015 04/23/20 06:10: WBC 6.7, RBC 3.55 L, Hgb 9.5 L, Hct 31.6 L, MCV 89.0, MCH 26.8 L , MCHC 30.1 L, RDW Std Deviation 46.7 H, RDW Coeff of Natalie 14.6, Plt Count 223, M PV 10.5, Immature Gran % (Auto) 0.300, Neut % (Auto) 74.6 H, Lymph % (Auto) 14.2 L, [place] % (Auto) 8.1, Eos % (Auto) 2.1, Baso % (Auto) 0.7, Absolute Neuts (auto) 5.0, Absolute Lymphs (auto) 0.95, Nucleated RBC % 0 04/23/20 06:10: Sodium 139, Potassium 3.2 L, Chloride 104, Carbon Dioxide 26.0, Anion Gap 9, BUN 39 H, Creatinine 1.31 H, Estim Creat Clear Calc 31.15, Est GFR (MDRD) Af Amer 51 L, Est GFR (MDRD) Non-Af 43 L, BUN/Creatinine Ratio 29.8 H, Glucose 88, Calcium 8.3 L Current Medications Acetaminophen (Acetaminophen 325 Mg Tablet) 650 mg PO Q6H PRN PRN PRN Reason: Pain Score 1-10/Temp > 100.7 F Amitriptyline HCl (Amitriptyline 25 Mg Tablet) 75 mg PO QHS [facility] Last Admin: 04/22/20 21:24 Dose: 75 mg Documented by: Aspirin (Aspirin E.C. 81 Mg Tablet) 81 mg PO DAILY@1999 [facility] Last Admin: 04/22/20 19:52 Dose: 81 mg Documented by: Atorvastatin Calcium (Atorvastatin Calcium 40 Mg Tablet) 40 mg PO QHS [facility] Last Admin: 04/22/20 21:24 Dose: 40 mg Documented by: Clopidogrel Bisulfate (Clopidogrel Bisulfate 75 Mg Tablet) 75 mg PO QHS [facility] Last Admin: 04/22/20 21:25 Dose: 75 mg Documented by: Digoxin (Digoxin 250 Mcg/Ml Ampul) 125 mcg IV DAILY [facility] Last Admin: 04/23/20 09:25 Dose: 125 mcg Documented by: Famotidine (Famotidine 20 Mg Tablet) 20 mg PO QHS [facility] Last Admin: 04/22/20 21:25 Dose: 20 mg Documented by: Gabapentin (Gabapentin 300 Mg Capsule) 300 mg PO TID [facility] Last Admin: 04/23/20 05:52 Dose: 300 mg Documented by: Sodium Chloride () 1,000 mls @ 75 mls/hr IV .[id number] [facility] Last Admin: 04/23/20 03:13 Dose: 75 mls/hr Documented by: Sodium Chloride () 250 mls @ 15 mls/hr IV .[id number] PRN PRN Reason: Saline Flush Melatonin (Melatonin 3 Mg Tablet) 3 mg PO QHS PRN PRN PRN Reason: INSOMNIA Metoprolol Tartrate (Metoprolol Tartrate 50 Mg Tablet) 75 mg PO BID [facility] Last Admin: 04/23/20 09:25 Dose: 75 mg Documented by: Metoprolol Tartrate (Metoprolol Tartrate 5 Mg/5 Ml Vial) 5 mg IV Q1H PRN PRN PRN Reason: for HR >110 Last Admin: 04/23/20 03:13 Dose: 5 mg Documented by: Ondansetron HCl (Ondansetron 4 Mg/2 Ml Vial) 4 mg IV Q8H PRN PRN PRN Reason: NAUSEA/VOMITING Rotigotine (Rotigotine 2 Mg Patch) 2 mg TD DAILY@2200 [facility] Last Admin: 04/22/20 23:53 Dose: 2 mg Documented by: Sodium Chloride (0.9% Saline Lock 10 Ml Syringe) 10 - 40 ml IV UD PRN PRN Reason: SALINE FLUSH STROKE Vital Signs/Narrative: Vital Signs Temp Pulse Resp BP Pulse Ox 04/23/20 09:28 98.3 F 102 H 18 103/45 L 98 04/23/20 09:25 102 H Medical Necessity - Tobacco Use Smoking Status: Current every day smoker Assessment/Plan All Active Problems (Last Updated 04/04/20 @ 18:47 by Anuja Gaviria) Atrial fibrillation with RVR (Acute) Angina pectoris (Resolved) Atrial fibrillation with RVR (Resolved) Atypical chest pain (Resolved) Chest pain (Resolved) Chest pain (Resolved 01/01/20) Encephalopathy acute (Resolved) Hypokalemia (Resolved) Pneumonia (Resolved) Preop cardiovascular exam (Resolved) Unstable angina pectoris due to coronary arteriosclerosis (Resolved) 1. Paroxysmal A. fib with RVR and chest pain/tachybradycardia syndrome status post pacemaker/CAD status post stent/chronic systolic CHF/tobacco abuse/HTN/HLD/PAD -Hold her Xarelto and place her on a heparin drip today -Increase metoprolol from 50 milligrams twice daily to 75 mg twice daily, continue with digoxin -May need to go up on metoprolol -Troponins are negative, plan for an echo tomorrow as well as a stress test -Continue with aspirin and Plavix, she will have to resume her Xarelto on discharge -We will continue with IV fluids for now secondary to her SAM, can resume Lasix when able -Because the increase in her metoprolol, will hold her other blood pressure medications for now and make adjustments as necessary -Continue with Lipitor -Discussed smoking cessation, she does not want a nicotine patch 2. COPD -Not a current exacerbation -Can continue with her home fluticasone/salmeterol combo 3. Anxiety/depression -Stable -Continue with Elavil DVT: Heparin drip Inpatient E&M: 50117 Subs Hosp L2
[2020-04-23 12:02] LABS: Partial Thromboplast Time 25.3 Seconds (24.1-36.2)
[2020-04-23] MEDS: Heparin Injection (Vial) 5,000 UNIT/ML VIAL 4000 UNIT IV (12:36)
[2020-04-23] MEDS: HEPARIN/D5w 25,000 UNITS 25,000 UNITS/250 ML IV.SOLN. 8 UNITS IV (12:37)
--- NOTE | 2020-04-23 13:07 | PN.CARD_ITS ---
Objective: Vital Signs Temp Pulse Resp BP Pulse Ox 98.3 F 102 H 18 103/45 L 98 04/23/20 09:28 04/23/20 09:28 04/23/20 09:28 04/23/20 09:28 04/23/20 09:28 Oxygen Flow Rate (L/min) 2 Oxygen Delivery Method Room Air Weight: 154 lb 1.6 oz Body Mass Index (BMI) 28.1 Intake and Output for Last 24 Hours 04/21/20 04/22/20 04/23/20 23:59 23:59 23:59 Intake Total 1200 / 1200 1240 / 1240 Output Total 1800 / 1800 Balance -600 / -600 1240 / 1240 Cardiovascular: Irregular Rhythm 04/22/20 14:00: Troponin I < 0.015 04/22/20 16:55: Troponin I < 0.015 04/23/20 06:10: WBC 6.7, RBC 3.55 L, Hgb 9.5 L, Hct 31.6 L, MCV 89.0, MCH 26.8 L , MCHC 30.1 L, Plt Count 223, MPV 10.5, Immature Gran % (Auto) 0.300, Neut % (Auto) 74.6 H, Lymph % (Auto) 14.2 L, [place] % (Auto) 8.1, Eos % (Auto) 2.1, Baso % (Auto) 0.7, Absolute Neuts (auto) 5.0, Nucleated RBC % 0 04/23/20 06:10: Sodium 139, Potassium 3.2 L, Chloride 104, Carbon Dioxide 26.0, Anion Gap 9, BUN 39 H, Creatinine 1.31 H, Est GFR (MDRD) Af Amer 51 L, Est GFR (MDRD) Non-Af 43 L, BUN/Creatinine Ratio 29.8 H, Glucose 88, Calcium 8.3 L 04/23/20 06:10: APTT 25.3 04/23/20 07:06: Magnesium 2.0 Rhythm: Rhythm is A. fib with better controlled ventricular rate with the current treatment Medical Necessity - Tobacco Use Smoking Status: Current every day smoker Assessment/Plan 49-year-old patient, admitted with palpitation and underlying A. fib with RVR Patient has extensive cardiac history with prior multiple coronary artery stents. Today her symptoms of abdominal pain and she had very minor atypical chest pain as well. On review of the telemetry underlying rhythm is A. fib with better controlled ventricular rate on beta-declan and digoxin. Discuss cardiac care plan in detail 1. We will plan for evaluation further with Lexiscan sestamibi myocardial perfusion study. 2. We will hold anticoagulation with Xarelto for now we will continue on heparin 3. Patient will be seen and followed for further cardiac evaluation by the primary operations administrative assistant Cardiac care plan discussed in detail today with the patient and nursing staff
[2020-04-23] MEDS: Ondansetron 4 MG/2 ML Vial IV (13:17)
[2020-04-23] MEDS: Dicyclomine 10 MG Capsule PO ×2 (16:58→22:39)
[2020-04-23 18:33] LABS: Partial Thromboplast Time 51.8 Seconds (24.1-36.2)
[2020-04-23] MEDS: Aspirin E.C. 81 MG Tablet PO (19:46)
[2020-04-23] MEDS: Amitriptyline 25 MG Tablet 75 MG PO (22:39)
[2020-04-23] MEDS: Atorvastatin Calcium 40 MG Tablet PO (22:39)
[2020-04-23] MEDS: MELATONIN 3 MG TABLET PO (22:40)
[2020-04-23] MEDS: Clopidogrel Bisulfate 75 MG Tablet PO (22:41)
[2020-04-23] MEDS: Famotidine 20 MG Tablet PO (22:42)
[2020-04-24] VITALS (7 sets, daily range): BP systolic 104–118; BP diastolic 67–78; PULSE 91–116; RESP 18; TEMP 36.5–36.9; O2SAT 92–98
[2020-04-24 00:10] LABS: Partial Thromboplast Time 46.1 Seconds (24.1-36.2)
--- NOTE | 2020-04-24 05:55 | EKG12_ITS ---
Test Reason : AM EKG Blood Pressure : / mmHG Vent. Rate : 101 BPM Atrial Rate : 085 BPM P-R Int : 000 ms QRS Dur : 112 ms QT Int : 356 ms P-R-T Axes : 000 010 251 degrees QTc Int : 461 ms Atrial fibrillation with occasional ventricular-paced complexes Low voltage QRS Septal infarct , age undetermined ST & T wave abnormality, consider lateral ischemia Abnormal ECG Confirmed by HUYEN JEAN-BAPTISTE, TAYLOR ([id number]), scientific editor MAREN GRIMES ([id number]) on 04/25/2020 8:29:28 AM Referred By: NOE Confirmed By:TAYLOR MATSON MD
[2020-04-24] MEDS: 0.9% Normal Saline 1,000 ML 75 ML IV (06:13)
[2020-04-24 06:40] LABS: Partial Thromboplast Time 40.9 Seconds (24.1-36.2)
[2020-04-24] MEDS: Heparin Injection (Vial) 5,000 UNIT/ML VIAL IV (07:00)
[2020-04-24 07:01] LABS: Anion Gap 7 (5-15); BUN 38 mg/dL (7-18); BUN/Creat Ratio 28.4 RATIO (10-20); Calcium,Total 8.1 mg/dL (8.5-10.1); Chloride 106 mmol/L (98-107); Creatinine, Serum 1.34 mg/dL (0.55-1.02); EST Glomerular Filtration Rate 41 mL/min (>60); Est Glom Filt Rate - Afr Amer 50 mL/min (>60); Estimated Creatinine Clearance 30.46 ml/min; Glucose 86 mg/dL (74-106); Potassium 3.8 mmol/L (3.5-5.1); Sodium Level 138 mmol/L (136-145)
[2020-04-24] MEDS: Digoxin 125 MCG Tablet PO (11:05)
[2020-04-24] MEDS: Dicyclomine 10 MG Capsule PO (11:05)
[2020-04-24] MEDS: Metoprolol Tartrate 50 MG Tablet 75 MG PO (11:05)
--- NOTE | 2020-04-24 11:05 | STRESSREP ---
Stress Test Report Pharmacologic myocardial perfusion stress test. 70-year-old lady with a history of coronary artery disease atrial fibrillation status post permanent pacemaker implantation. Stress protocol: Resting KG demonstrates atrial fibrillation with a rate of 107 bpm normal intervals are noted resting blood pressure is 102/64 mmHg occasional paced beats are noted. 0.4 mg of regadenoson was infused per usual protocol followed by Intravenous saline flush injection continuous EKG monitoring was performed. Nonspecific ST-T wave changes are noted at rest and during infusion. The maximum heart rate was 126 bpm which was 84% of max impacted heart rate the maximum workload was 1 metabolic equivalent. The resting blood pressure is 102/64 with a final blood pressure 120/80 mmHg. Myocardial perfusion protocol. 11.1 mCi of technetium 99m sestamibi was injected at rest. 0.4 mg of regadenoson was infused per usual protocol. At peak infusion 33.3 mCi of technetium 99m sestamibi was injected stress images were obtained stress and rest images were reconstructed and compared in the short axis vertical long horizontal long axis. Gated images were also obtained Perfusion SPECT analysis: Review of the stress images demonstrate a normal cardiac silhouette size. There is mild reduction of perfusion noted in the basal inferior wall on the stress images with a similar pattern on the resting images. Minimal perfusion improvement around the edges are noted suggesting mild jose-infarct ischemia. The rest of the [place] appear to be well perfused. Gated SPECT analysis: The gated ejection fraction of 36%. Conclusion: Mildly abnormal myocardial perfusion stress test with evidence of previous basal inferior infarct and minimal jose-infarct ischemia. Mild cardiomyopathy present.
[2020-04-24] MEDS: FLUTICASONE PROPION IH (11:06)
[2020-04-24] MEDS: SALMETEROL IH (11:06)
--- NOTE | 2020-04-24 11:08 | PN.CARD_ITS ---
Subjectve: Patient seen and evaluated. Appears to be doing well. Objective: Vital Signs Temp Pulse Resp BP Pulse Ox 98.1 F 105 H 18 118/67 92 04/24/20 11:01 04/24/20 11:05 04/24/20 11:01 04/24/20 11:01 04/24/20 11:01 Oxygen Flow Rate (L/min) 5 Oxygen Delivery Method Room Air Weight: 154 lb 1.6 oz Body Mass Index (BMI) 28.1 Intake and Output for Last 24 Hours 04/22/20 04/23/20 04/24/20 23:59 23:59 23:59 Intake Total 1200 / 1200 3128.27 / 3128.27 1350.13 / 1350.13 Output Total 1800 / 1800 Balance -600 / -600 3128.27 / 3128.27 1350.13 / 1350.13 General: Awake, Alert, Oriented x 3 HEENT: PERRL, EOMI, Sclera Non Icteric Neck: Supple, Good ROM, No Lymph Node Enlargement Lungs: Clear to auscultation Cardiovascular: Irregular Rhythm, Normal S1, Normal S2, No Murmurs, No Rubs, No Gallops 04/23/20 06:10: APTT 25.3 04/23/20 07:06: Magnesium 2.0 04/23/20 18:03: APTT 51.8 H 04/23/20 23:55: APTT 46.1 H 04/24/20 06:10: Sodium 138, Potassium 3.8, Chloride 106, Carbon Dioxide 25.0, Anion Gap 7, BUN 38 H, Creatinine 1.34 H, Est GFR (MDRD) Af Amer 50 L, Est GFR (MDRD) Non-Af 41 L, BUN/Creatinine Ratio 28.4 H, Glucose 86, Calcium 8.1 L 04/24/20 06:10: APTT 40.9 H Rhythm: EKG: ECHO: Stress Test: Cardiac Cath: PCI: CT Surgery: Holter monitor: EPS: PPM: CXR: Chest CT Scan: Medical Necessity - Tobacco Use Smoking Status: Current every day smoker Assessment/Plan 1. Atrial fibrillation * Patient presented with atrial fibrillation with rapid ventricular response rate. Appears to be doing better at this time with beta-declan. I will suggest increasing the metoprolol to 100 mg twice a day. I will give her an extra 25 mg of metoprolol today. * Will resume anticoagulation. * Will obtain echocardiogram to assess ventricular function. 2. Coronary artery disease * Patient had previous angioplasty and stenting of the right coronary artery and circumflex artery. Recent stent was in October of last year. The stress test performed today does not demonstrate any significant ischemia and therefore medical therapy will be continued. * 3. Status post pacemaker implantation * Patient is status post dual-chamber pacemaker implantation. * Will continue to follow the above in the office.
[2020-04-24] MEDS: Metoprolol Tartrate 25 MG Tablet PO (11:57)
--- NOTE | 2020-04-24 12:44 | DCINST_ITS ---
- Discharge Diagnoses Current Active Problems: Current Active and Chronic Problems (Last Updated 04/04/20 @ 18:47 by Anuja Gaviria) Atrial fibrillation with RVR (Acute) Persistent atrial fibrillation (Chronic) Tachy-erica syndrome (Chronic) History of coronary artery stent placement (Chronic 03/18/19) [id number] LCx and OM 03/20/99; PCI-CARMEN of distal RCA and POBA-ostium of posterolateral branch for stent jailing; PCI-CARMEN to RCA and PDA 02/20; PCI- CARMEN to ISR-RCA 04/21/2015; [id number] RPDA w/ 2.5 x 24 mm Promus Stent and Distal RCA w/ 3.0 x 16 mm Promus Stent and POBA Ostial RPLB 03/18/2019 Abdominal aortic aneurysm (AAA) (Chronic) Redemonstration of infrarenal abdominal aortic aneurysm measuring up to 4.4 cm x 4.4 cm essentially similar to previous exam. 01/21/2019 Essential (primary) hypertension (Chronic) HLD (hyperlipidemia) (Chronic) Peripheral vascular occlusive disease (Chronic) Bilateral SFA stents. Occluded Right SFA and angioplasty of in-stent stenosis of her left SFA. You will use the following diet at home:: No restrictions Your food should be the consistency of: Regular Your liquids should be the consistency of: Regular/Thin Discharge Activity: Return to Normal Activity Weight Bearing Status: Full weight bearing Allergies/Adverse Reactions: Allergies lisinopril Allergy (Verified 04/22/20 09:43) tongue swelling Medications to take at Discharge Amitriptyline HCl [Elavil] 75 mg PO QHS 11/25/13 albuterol sulfate 90 mcg/actuation aerosol inhaler 1 - 2 puff INHALATION Q4H PRN PRN #1 inhaler 06/16/18 atorvastatin 40 mg tablet 40 mg PO QHS tab 07/09/19 dicyclomine 10 mg capsule 10 mg PO 4X/DAY 07/09/19 famotidine 20 mg tablet 20 mg PO BID 07/09/19 gabapentin 300 mg capsule 300 mg PO TID 07/09/19 Clopidogrel Bisulfate [Plavix] 75 mg PO QHS 08/30/19 Aspirin E.C. [Ecotrin] 81 mg PO DAILY@199911/23/19 Melatonin 3 mg PO QHS PRN PRN tab 10/22/20 furosemide 20 mg tablet 40 mg PO DAILY tab 03/07/20 rotigotine 1 mg/24 hour transdermal 24 hour patch 2 mg TOPICAL DAILY ea 03/07/20 Fluticasone Propion/Salmeterol [Wixela 500-50 Inhub] 1 ea IH BID 04/22/20 Potassium Chloride [K-Tab ER] 20 meq PO BID 04/22/20 Digoxin [Lanoxin] 125 mcg PO DAILY #30 tab 04/24/20 Metoprolol Tartrate [Lopressor (beta declan)] 100 mg PO BID #60 tab 04/24/20 Rivaroxaban [Xarelto] 20 mg PO DAILY@1700 tab 04/24/20 The following prescriptions were given: Digoxin [Lanoxin] 125 mcg PO DAILY #30 tab Transmission Status: Pending to [facility] Metoprolol Tartrate [Lopressor (beta declan)] 100 mg PO BID #60 tab Transmission Status: Pending to [facility] Primary Care Physician: Feng Hayes MD [Primary Care Provider] - Please follow up with your Primary Care Physician in: in 2-3 weeks Test Results: Test results from this visit will be discussed in further detail at your follow- up appointment, if applicable. Please Follow Up With: Jaime Treviño MD When: as directed
--- NOTE | 2020-04-24 16:00 | CASEMGMT ---
Readmission chart review: Pt was initially admitted for pacer placement 03/27-03/29/20 for tachy/erica syndrome and ended up staying an extra night as she went into Afib/HF. Pt was discharged home at that time. Pt returned to [facility] ED on 04/22/20 for c/o CP/SOB that started that am. Pt's HR upon arrival was 140 and pt was in Afib at that time. Pt was seen by Dr. Shepard, started on Digoxin and scheduled for stress test on 04/24/20. Per Dr. Treviño, stress test does not demostrate any significant ischemia and medical therapy to continue. Dr. Treviño also stated to increase pt's metoprolol to 100mg twice daily at this time. Pt then to be discharged. CM to follow for any further discharge planning/needs. Barbara FALCON CM
--- NOTE | 2020-04-25 11:52 | CASEMGMT ---
EZEKIEL CM DC PHONE CALL DC DATE: 04/24/20 DC Disposition: Home Diagnosis on Discharge: Afib RVR/ Pacemaker placement LACE/STRATA: 13 Attempted call to patient. No answer and no messaging with name identifier. Hailee CRANDALLN RN AC
--- NOTE | 2020-04-25 17:34 | PCM.DC.SUM ---
Discharge Date and Diagnosis - Problem List Patient Problems: Active and Suspected Problems (Last Updated 04/04/20 @ 18:47 by Anuja Gaviria) Atrial fibrillation with RVR (Acute) Date of Admission: 04/22/20 Date of Discharge: 04/24/20 - Primary Discharge Diagnosis Acute Problems: Active Problems (Last Updated 04/04/20 @ 18:47 by Anuja Gaviria) Atrial fibrillation with RVR (Acute) Coronary artery disease Chronic obstructive pulmonary disease Anxiety/depression Chronic kidney disease stage III Hypokalemia - Secondary Discharge Diagnosis Chronic Problems: Chronic Problems (Last Updated 04/04/20 @ 18:47 by Anuja Gaviria) Non-ischemic cardiomyopathy (Chronic) Persistent atrial fibrillation (Chronic) History of permanent cardiac pacemaker placement (Chronic 03/27/20) Tachy-erica syndrome (Chronic) Sinus pause (Chronic) 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) Atherosclerotic heart disease of [place] coronary artery without angina pectoris (Chronic) Non-STEMI (non-ST elevated myocardial infarction) (Chronic 03/19/19) 04/21/2015, 03/19/2019 History of coronary artery stent placement (Chronic 03/18/19) [id number] LCx and OM 03/20/99; PCI-CARMEN of distal RCA and POBA-ostium of posterolateral branch for stent jailing; PCI-CARMEN to RCA and PDA 02/20; PCI-CARMEN to ISR-RCA 04/21/2015; PIL-GDW-Htdc RPDA w/ 2.5 x 24 mm Promus Stent and Distal RCA w/ 3.0 x 16 mm Promus Stent and POBA Ostial RPLB 03/18/2019 Paroxysmal atrial fibrillation (Chronic) Abdominal aortic aneurysm (AAA) (Chronic) Redemonstration of infrarenal abdominal aortic aneurysm measuring up to 4.4 cm x 4.4 cm essentially similar to previous exam. 01/21/2019 Essential (primary) hypertension (Chronic) HLD (hyperlipidemia) (Chronic) Peripheral vascular occlusive disease (Chronic) Bilateral SFA stents. Occluded Right SFA and angioplasty of in-stent stenosis of her left SFA. COPD (chronic obstructive pulmonary disease) (Chronic) BELLE (obstructive sleep apnea) (Chronic) Bipap 17/13 cm of H2O Smoking greater than 30 pack years (Chronic) Low-dose CT lung screening due November 2020 Nicotine dependence (Chronic) Hospital Course and Treatment Operations: None Procedures: Nuclear stress test Summary of Care Provided: The patient is a 70 year old F was seen in the emergency room at [facility] with a chief complaint of chest pain and shortness of breath. Patient has a history of chronic atrial fibrillation and she currently was on Xarelto. Work-up in the emergency room included an EKG which showed the patient to be in atrial fibrillation with rapid ventricular response at 138, chest x-ray did not show any acute process, patient's beta natruretic peptide was elevated, she was given Cardizem IV in the emergency room which did help slightly with rate control. Emergency room physician talked with the on-call internet application developer who recommended that the patient be admitted for monitoring. Patient's creatinine was elevated but it appears that this might be the patient's baseline creatinine. Potassium was slightly low at 3.2. Patient was admitted to PCU and she was seen in consultation by cardiology, she was given digoxin and her medications were adjusted for rate control. On 04/24/2020, patient underwent a resting nuclear stress test which showed no evidence of reversible ischemia, she was seen by cardiology on that date and they recommended that the patient follow-up as an outpatient and have an echocardiogram. On 04/24/2020, patient was seen and examined: On examination she appeared in good health and spirits, she does not appear to be in any distress. Vital signs as documented. Skin warm and dry and without overt rashes. Neck without JVD, thyroid appears normal, trachea is midline, neck is supple. Lungs clear, normal air movement was noted. Heart exam notable for irregular rhythm, normal sounds and absence of murmurs, rubs or gallops. Abdomen unremarkable and without evidence of organomegaly, masses, or abdominal aortic enlargement, bowel sounds are present in all 4 quadrants, no abdominal tenderness was noted. Extremities nonedematous, no cyanosis was noted, no clubbing was noted. Neuro: Cranial nerves II through XII are grossly intact, no focal motor deficits were noted, sensation to light touch and pinprick is intact, motor exam 5/5 throughout. Psych: Patient is alert and oriented x3, she does not appear anxious or depressed, she does not appear agitated. On 04/24/2020, patient was seen and examined and felt to be stable for discharge home. Patient Problems: Active and Suspected Problems (Last Updated 04/04/20 @ 18:47 by Anuja Gaviria) Atrial fibrillation with RVR (Acute) - Physical Exam Vitals/I&O's: Vital Signs Temp Pulse Resp BP Pulse Ox 98.1 F 96 18 118/67 92 04/24/20 11:01 04/24/20 11:57 04/24/20 11:01 04/24/20 11:01 04/24/20 11:01 Oxygen Flow Rate (L/min) 5 Oxygen Delivery Method Room Air Weight: 69.899 kg Body Mass Index (BMI) 28.1 Intake and Output for Last 24 Hours 04/23/20 04/24/20 04/25/20 23:59 23:59 23:59 Intake Total 3128.27 / 3128.27 1710.13 / 1710.13 Balance 3128.27 / 3128.27 1710.13 / 1710.13 Discharge Activity: Return to Normal Activity Weight Bearing Status: Full weight bearing Home Medications: Medications to take at Discharge Amitriptyline HCl [Elavil] 75 mg PO QHS 11/25/13 albuterol sulfate 90 mcg/actuation aerosol inhaler 1 - 2 puff INHALATION Q4H PRN PRN #1 inhaler 06/16/18 atorvastatin 40 mg tablet 40 mg PO QHS tab 07/09/19 dicyclomine 10 mg capsule 10 mg PO 4X/DAY 07/09/19 famotidine 20 mg tablet 20 mg PO BID 07/09/19 gabapentin 300 mg capsule 300 mg PO TID 07/09/19 Clopidogrel Bisulfate [Plavix] 75 mg PO QHS 08/30/19 Aspirin E.C. [Ecotrin] 81 mg PO DAILY@199911/23/19 Melatonin 3 mg PO QHS PRN PRN tab 01/06/20 furosemide 20 mg tablet 40 mg PO DAILY tab 03/07/20 rotigotine 1 mg/24 hour transdermal 24 hour patch 2 mg TOPICAL DAILY ea 03/07/20 Fluticasone Propion/Salmeterol [Wixela 500-50 Inhub] 1 ea IH BID 04/22/20 Potassium Chloride [K-Tab ER] 20 meq PO BID 04/22/20 Digoxin [Lanoxin] 125 mcg PO DAILY #30 tab 04/24/20 Metoprolol Tartrate [Lopressor (beta declan)] 100 mg PO BID #60 tab 04/24/20 Rivaroxaban [Xarelto] 20 mg PO DAILY@1700 tab 04/24/20 Following Prescriptions Were Given to Patient: Digoxin [Lanoxin] 125 mcg PO DAILY #30 tab Transmission Status: Received by [facility] Metoprolol Tartrate [Lopressor (beta declan)] 100 mg PO BID #60 tab Transmission Status: Received by [facility] Primary Care Physician: Feng Hayes MD [Primary Care Provider] - Please follow up with your Primary Care Physician in: in 2-3 weeks Please Follow Up With: Jaime Treviño MD When: as directed Disposition: Home Minutes spent on discharge:: 32 Patient Condition:: Stable Medical Necessity - Tobacco Use Smoking Status: Current every day smoker Meaningful Use Info Meaningful Use Diagnoses (Choose all that apply): None applicable Inpatient E&M: [id number] [facility]
== END 2020-04-24 13:46 | disposition home or self-care (01) | DRG 309 ==
LOC: ED 11:25 → PCU 12:38
PROVIDERS: Admitting Provider Family Medicine; Emergency Provider Student in an Organized Health Care Education/Training Program; PCP Family Medicine; Visit Provider Internal Medicine
DX: I48.0 Paroxysmal atrial fibrillation (principal); I13.0 Hypertensive heart and chronic kidney disease with heart failure and stage 1 through stage 4 chronic kidney disease, or unspecified chronic kidney disease; I50.42 Chronic combined systolic (congestive) and diastolic (congestive) heart failure; N18.30 Chronic kidney disease, stage 3 unspecified; I44.7 Left bundle-branch block, unspecified; E78.5 Hyperlipidemia, unspecified; I25.5 Ischemic cardiomyopathy; I25.2 Old myocardial infarction; I49.5 Sick sinus syndrome; J44.9 Chronic obstructive pulmonary disease, unspecified; I42.8 Other cardiomyopathies; F41.8 Other specified anxiety disorders; I73.9 Peripheral vascular disease, unspecified; I71.4 Abdominal aortic aneurysm, without rupture; G47.33 Obstructive sleep apnea (adult) (pediatric); I25.10 Atherosclerotic heart disease of native coronary artery without angina pectoris; Z79.82 Long term (current) use of aspirin; Z79.01 Long term (current) use of anticoagulants; Z95.5 Presence of coronary angioplasty implant and graft; Z95.0 Presence of cardiac pacemaker; Z86.19 Personal history of other infectious and parasitic diseases; Z79.02 Long term (current) use of antithrombotics/antiplatelets; Z79.899 Other long term (current) drug therapy; F17.200 Nicotine dependence, unspecified, uncomplicated
CPT/HCPCS: 36415; 71045; 78452; 80048; 83735; 83880; 84484; 85025; 85730; 93005; 93017; 99285; 99406; A9500; J7030; A4216; J2405; J2785

== ENCOUNTER 2020-05-17 14:37 | Emergency (ER) | payer MEDICARE, MEDICAID, SELFPAY ==
[2019-07-16 09:26] VITALS: BMI 29.5
[2020-04-22 13:18] VITALS: BMI 28.1
[2020-05-17 14:39] VITALS: BP 137/105; PULSE 91; RESP 16; TEMP 35.8; O2SAT 95; BMI 25.9
--- NOTE | 2020-05-17 14:52 | EKG12_ITS ---
Test Reason : FALL Blood Pressure : / mmHG Vent. Rate : 089 BPM Atrial Rate : 187 BPM P-R Int : 000 ms QRS Dur : 106 ms QT Int : 364 ms P-R-T Axes : 000 -17 246 degrees QTc Int : [address] & T wave abnormality, consider inferolateral ischemia Abnormal ECG Confirmed by GILBERT JEAN-BAPTISTE, FRANCIS ([id number]), slot editor MAREN GRIMES ([id number]) on 05/22/2020 2:34:47 PM Referred By: FABIO Confirmed By:FRANCIS HUNT MD
--- NOTE | 2020-05-17 14:52 | CT_ITS ---
STUDY: CT HEAD STROKE PROTOCOL W/O CONTRAST INJECTION REASON FOR EXAM: Female, 70 years old. Neuro deficit, acute, stroke suspected RADIATION DOSAGE (If Supplied By Facility): CTDIvol = ( 60.81 ) mGy, DLP = ( 998.67 ) mGycm TECHNIQUE: Transaxial CT imaging of the brain was performed without administration of intravenous contrast material. Individualized dose optimization techniques were used for this CT. COMPARISON: Comparison is made with prior study dated 11/28/2016. FINDINGS: Normal soft tissue structures. Normal calvarium. There is mild cerebral atrophy with widening of the extra-axial spaces and ventricular dilatation. Normal white matter tracts of the cerebral hemispheres. Normal basal ganglia and thalami. Normal brainstem. Normal cerebellum. Stable prominence of the cisterna magna. There is no intracranial hemorrhage. There are no findings of an acute ischemic infarction. Normal visualized paranasal sinuses. CT/STROKE Brain/Head without Cont IMPRESSION: Chronic involutional changes of the brain. N.B. : The above information has been verbally conveyed by Brown Yanes MD to [facility] on 05/17/2020 15:53:14 (ET). Electronically Signed: Brown Yanes MD at 15:54 EST , Service support ,
[2020-05-17 15:24] VITALS: BP 112/70; PULSE 94; RESP 18; O2SAT 97
--- NOTE | 2020-05-17 15:34 | RAD_ITS ---
STUDY: X-RAY CHEST REASON FOR EXAM: Female, 70 years old. Neuro deficit, acute, stroke suspected TECHNIQUE: Single AP portable view of the chest. COMPARISON: Comparison is made with prior study dated 04/22/2020. FINDINGS: EKG electrodes are seen. The lungs are clear and expanded. There is no demonstrated pleural abnormality. Mild cardiomegaly. A left-sided dual-chamber pacemaker is seen. Normal mediastinum and artis. Normal visualized pulmonary arteries. There is atherosclerotic calcification of the aortic arch with tortuosity. Normal visualized thoracic spine. Normal visualized ribs, clavicles, and shoulders. There is no demonstrated abnormality of the visualized soft tissue structures of the upper abdomen. RAD/Chest 1 View IMPRESSION: No acute abnormality is seen. Electronically Signed: Brown Yanes MD at 15:47 EST , Service support ,
[2020-05-17 15:36] LABS: Absolute Lymphocyte Count 1.15 X10^3/uL (0.83-4.51); Absolute Neutrophil Count 5.4 X10^3/uL (2.0-7.7); Basophil# 0.03 X10^3/uL; Basophil% 0.4 % (0-1); Eosinophil# 0.07 X10^3/uL; Hematocrit 41.7 % (37-47); Hemoglobin 12.9 g/dL (12.0-15.0); Lymphocyte # 1.15 X10^3/ul (4.0); Mean Corp Hgb Conc 30.9 g/dL (32-36); Mean Corpuscular Hgb 26.2 pg (27.0-32.0); Mean Corpuscular Volume 84.6 fL (81-99); Mean Platelet Vol. 10.8 fl (6.2-12.0); Monocyte# 0.51 X10^3/uL; Monocyte% 7.1 % (0-10); NRBC Flagged by Analyzer 0 % (0-5); Neutrophil # 5.42 X10^3/uL (2.7-7.7); Neutrophil % 75.4 % (47-70); Platelet Count 262 K/mm3 (150-450); RBC Distribution Width CV 15.7 % (11.6-14.6); RBC Distribution Width SD 47.1 fl (35.1-43.9); Red Blood Count 4.93 M/mm3 (4.2-5.4); White Blood Count 7.2 K/mm3 (4.4-11.0)
[2020-05-17 15:51] LABS: International Normalized Ratio 1.8; Prothrombin Time (Protime)PT. 20.1 SECONDS (11.7-14.9)
[2020-05-17 15:53] LABS: Partial Thromboplast Time 28.5 Seconds (24.1-36.2)
[2020-05-17 15:58] LABS: Anion Gap 9 (5-15); BUN 35 mg/dL (7-18); BUN/Creat Ratio 21.5 RATIO (10-20); Calcium,Total 9.5 mg/dL (8.5-10.1); Chloride 99 mmol/L (98-107); Creatinine, Serum 1.63 mg/dL (0.55-1.02); EST Glomerular Filtration Rate 33 mL/min (>60); Est Glom Filt Rate - Afr Amer 40 mL/min (>60); Estimated Creatinine Clearance 25.04 ml/min; Glucose 132 mg/dL (74-106); Potassium 3.5 mmol/L (3.5-5.1); Sodium Level 139 mmol/L (136-145)
[2020-05-17 17:17] VITALS: BP 141/52; PULSE 85; RESP 16; O2SAT 94
[2020-05-17 17:36] LABS: Mucous, Urine 0 SEEN /hpf (<or=2+); Red Blood Cells-Urine 0 SEEN /hpf (0-5)
[2020-05-17 17:40] LABS: Color, Urine Yellow (Yellow); Glucose, Dipstick Normal (Normal); Ketone-Dipstick 5 mg/dl (Negative); Leukocyte Esterase-Dipstick 25 /ul (Negative); Nitrite-Dipstick Negative (Negative); Occult Blood-Urine Negative /ul (Negative); Protein-Dipstick Negative (Negative); Specific Gravity, Urine 1.015 (1.002-1.030); Urine Bilirubin Dipstick Negative (Negative); Urine Clarity Clear (Clear); Urine Urobilinogen Normal (Normal)
[2020-05-17 17:47] LABS: Bacteria RARE /hpf (None Seen); Hyaline Cast 0-5 SEEN /lpf (0-5); Squamous Epithelial Cells - UA 0-5 SEEN /hpf (5-10); White Blood Cells 0-5 SEEN /hpf (0-5)
--- NOTE | 2020-05-17 18:29 | ED.DCSUM_ITS ---
- ER Visit Summary Date of Service: 05/17/20 Chief Complaint: Confusion History of Present Illness: The patient is a 70 F presenting with an episode of confusion which occurred this morning. She states when she woke up she did not know where she was and felt very disoriented. She states she walked around her house confused. She was upset that she did not know where she was and called her daughter. She states these symptoms lasted 15 to 20 minutes. She had associated nausea and vertigo at the time. She denies chest pain or shortness of breath. She has a mild headache. She states she fell last Friday and hit her head but did not lose consciousness. She states she has been falling frequently. She had Covid in December and has recovered since. She called her primary care physician and international broadcast music librarian office and was advised to come to the ED. Physical Examination: Vitals are stable. Patient is afebrile. Alert no acute distress. HEENT exam is unremarkable. Neck is supple. Lungs are clear and equal bilaterally. Heart is irregularly irregular Abdomen is soft nontender nondistended. Extremities are unremarkable. Skin is warm and dry. No focal neurologic deficit. NIH 0 Remainder of exam is unremarkable. Emergency Department Course and Treatment: EKG is A. fib rate of [address] depression and T wave inversion, similar to previous. CBC, chemistries unremarkable other than glucose 132, BUN 35, creatinine 1.63. INR 1.8. Urinalysis unremarkable. Troponin 0.017. Chest x-ray shows no acute process. CT head shows chronic changes. Discussed with hospitalist. He does not feel patient requires admission to the hospital. Discussed with cardiology. EKG also reviewed by Dr. Treviño. Patient is scheduled to have cardioversion on Friday. Recommends cardioversion in the ED. Patient initially consented to th is procedure but then declined. She states she is tired of all these medical tests and treatments and just wants to go home. She took her IV out and eloped from the emergency department. Disposition: Elopement Impression: Confusion, resolved; chronic atrial fibrillation This note was generated with Amperion[employer] software. It may contain incorrect words, spelling, and punctuation that were not noted in review of the chart prior to signing ED Disposition - Plan for ED Patient: Disposition: Home or Assisted Living Instructions: ED Confusion Referrals: Feng Hayes MD [Primary Care Provider] - Jaime Treviño MD [STAFF PHYSICIAN] -
--- NOTE | 2020-05-17 18:36 | ED.DEP ---
ED Disposition - Plan for ED Patient: Instructions: ED Confusion Referrals: Feng Hayes MD [Primary Care Provider] - Jaime Treviño MD [STAFF PHYSICIAN] -
== END 2020-05-17 19:02 | disposition home or self-care (01) ==
LOC: ED 15:15
PROVIDERS: Emergency Provider Emergency Medicine; PCP Family Medicine
DX: R41.0 Disorientation, unspecified (principal); I48.20 Chronic atrial fibrillation, unspecified; Z53.21 Procedure and treatment not carried out due to patient leaving prior to being seen by health care provider; I25.10 Atherosclerotic heart disease of native coronary artery without angina pectoris; Z79.01 Long term (current) use of anticoagulants; Z79.02 Long term (current) use of antithrombotics/antiplatelets; Z79.899 Other long term (current) drug therapy; Z87.891 Personal history of nicotine dependence
CPT/HCPCS: 70450; 71045; 80048; 81001; 84484; 85025; 85610; 85730; 93005; 99284; A4216

== ENCOUNTER 2020-05-19 09:56 | Day surgery (SDC) | payer MEDICARE, MEDICAID, SELFPAY ==
[2019-07-16 09:26] VITALS: BMI 29.5
[2020-03-27 15:42] VITALS: BMI 28.3
[2020-05-18 10:41] VITALS: BMI 28.3
--- NOTE | 2020-05-19 12:30 | CARDIOVERS ---
Cardioversion Cardioversion: DC cardioversion. 70-year-old lady with a history of atrial fibrillation status post pacemaker placement. Patient on anticoagulation. The patient was seen by Dr. Marx of the critical care division. Informed consent was obtained. Anterior posterior pads were applied. The patient was then administered 4 mg of intravenous etomidate. 200 J of synchronized DC cardioversion energy were applied with prompt reversal to AV sequential pacing. Patient tolerated the procedure well. Conclusion: Successful DC cardioversion to AV sequential paced rhythm. Continue current medications. Continue amiodarone 200 mg twice daily for 2 weeks and then 200 mg daily.
--- NOTE | 2020-05-19 12:53 | PCM.OP.PRO ---
Problem List (1) Atrial fibrillation with RVR Status: Acute (2) Abdominal aortic aneurysm (AAA) Status: Chronic Qualifiers: Comment: Redemonstration of infrarenal abdominal aortic aneurysm measuring up to 4.4 cm x 4.4 cm essentially similar to previous exam. 01/21/2019 (3) Atherosclerotic heart disease of [place] coronary artery without angina pectoris Status: Chronic Qualifiers: (4) COPD (chronic obstructive pulmonary disease) Status: Chronic Qualifiers: (5) Essential (primary) hypertension Status: Chronic (6) HLD (hyperlipidemia) Status: Chronic Qualifiers: (7) History of permanent cardiac pacemaker placement Status: Chronic (8) Nicotine dependence Status: Chronic Qualifiers: (9) Non-ischemic cardiomyopathy Status: Chronic (10) BELLE (obstructive sleep apnea) Status: Chronic Comment: Bipap 17/13 cm of H2O (11) Peripheral vascular occlusive disease Status: Chronic Comment: Bilateral SFA stents. Occluded Right SFA and angioplasty of in-stent stenosis of her left SFA. Procedure Report Date of Procedure: 05/19/20 - Conscious sedation CONSCIOUS SEDATION REPORT BRIEF HISTORY OF PRESENT ILLNESS: The patient is a 70-year-old female who presented to [facility] for an elective outpatient cardioversion due to underlying atrial fibrillation. The patient is well-known to me from the pulmonary office. The patient reports no PO intake since midnight. The patient does have a history of obstructive sleep apnea. The patient reports a history of smoking and COPD. The patient denies any recent constitutional symptoms such as fevers, chills, nausea or vomiting. The patient denies previous anesthetic complications. Patient's last known ejection fraction was 40%. Patient did take Xarelto on the day of the procedure PHYSICAL EXAMINATION: VITAL SIGNS: Reviewed and were acceptable. GENERAL: The patient is a female, in no apparent distress, speaking in full sentences. HEENT: Normocephalic, atraumatic. Mucous membranes are moist and pink. Good mouth opening noted. Trachea is midline. Good neck mobility. MP II CHEST: S1, S2 irregularly irregular. No murmurs, rubs or gallops were noted. LUNGS: Clear to auscultation bilaterally without appreciable wheezes, rales or rhonchi. ABDOMEN: Soft, nontender, nondistended. Positive bowel sounds. EXTREMITIES: There is no clubbing, cyanosis or edema. ASA Class: II DESCRIPTION OF PROCEDURE: After confirmation of informed consent, the patient's anesthesia plan was reviewed in detail. Etomidate was chosen. Risks and benefits were reviewed and the patient agreed to proceed. At 12:12 PM, the patient was given 4 mg of etomidate. The patient achieved an appropriate level of sedation and received 1 attempt synchronized cardioversion, at [address] Treviño at the bedside. This was successful in achieving normal sinus rhythm. The patient was monitored until 12:23 PM, at which time the patient reached their baseline mental status and function. The patient tolerated the procedure well. COMPLICATIONS: None ESTIMATED BLOOD LOSS: None RECOMMENDATIONS: Okay to recover in usual fashion. [id number]: Other Procedure See Report - [id number]
--- NOTE | 2020-05-26 08:08 | PCM.HP.BLA ---
History and Physical Date of Admission: 05/19/20 History of Present Illness This is a 70-year-old female that presents here today for a cardioversion. She has a history of paroxysmal atrial fibrillation, coronary artery disease with angioplasty and stenting of her RCA and angioplasty of her first obtuse marginal and hyperlipidemia. Her last percutaneous intervention was in 2015. In March 2019 she underwent stenting of the posterior descending as well as the right posterior lateral. She also has a history of hypertension. She also has a history of peripheral arterial disease and apparently scheduled to undergo surgery on her right superficial femoral artery. She underwent a pacemaker placement for sick sinus syndrome in March 2020. She does have a history of paroxysmal atrial fibrillation. Her atrial fibrillation is difficult to control as she does have tachybradycardia syndrome. She had been on amiodarone in the past and she was noted to have a 4.4-second pause. She was admitted to [facility] on April 22 with atrial fibrillation with RVR. Troponins were slightly elevated, her Xarelto was held and due to plans of a heart catheterization. She did have a stress test which was negative for ischemia. Her metoprolol was increased to 100 mg twice a day. Her Xarelto was restarted. She was discharged home on April 24. She did have a pacemaker placed for her tachybradycardia syndrome on March 27, 2020. Post pacemaker implantation she had pulmonary edema due to her atrial flutter with RVR. She did undergo an echocardiogram which demonstrated an ejection fraction of 40%. This is slightly lower than previous, ejection fraction in March 2019 was 50%. She was restarted on her Xarelto on 04/04/2020. With plans of a cardioversion May 08, 2020. 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) Atherosclerotic heart disease of [place] coronary artery without angina pectoris (Chronic) Non-STEMI (non-ST elevated myocardial infarction) (Chronic 03/19/19) Paroxysmal atrial fibrillation (Chronic) Abdominal aortic aneurysm (AAA) (Chronic) Essential (primary) hypertension (Chronic) HLD (hyperlipidemia) (Chronic) Peripheral vascular occlusive disease (Chronic) COPD (chronic obstructive pulmonary disease) (Chronic) BELLE (obstructive sleep apnea) (Chronic) Smoking greater than 30 pack years (Chronic) Nicotine dependence (Chronic) Anxiety and depression (Chronic) Claudication in peripheral vascular disease (Chronic) Emphysema of lung (Chronic) IBS (irritable bowel syndrome) (Chronic) Obesity (Chronic) Angina pectoris (Resolved) Atrial fibrillation with RVR (Resolved) COVID-19 (Resolved 01/01/20) Hypokalemia (Resolved) Pneumonia due to 2019 novel coronavirus (Resolved 01/01/20) Sepsis (Resolved 01/01/20) Unstable angina pectoris due to coronary arteriosclerosis (Resolved) Acute on chronic diastolic (congestive) heart failure (Inactive) Dyspnea on exertion (Inactive) PAD (peripheral artery disease) (Inactive) Wheezing (Inactive) Surgical History History of permanent cardiac pacemaker placement (Chronic 03/27/20) History of coronary artery stent placement (Chronic 03/18/19) History of angioplasty of peripheral vessel (Resolved) History of bilateral leg stents (Resolved) History of bunionectomy of right great toe (Resolved) History of cardioversion (Resolved 05/19/20) History of colonoscopy (Resolved 06/2018) History of hysterectomy (Resolved) History of left heart catheterization (Resolved 11/25/19) History of tonsillectomy (Resolved) Hx of APLL (Resolved) Hx of hysterectomy (Resolved) Status post left foot surgery (Resolved) Family History Father Heart disease Hypertension Seizures Sister CVA (cerebral vascular accident) Hypertension Other Family history of hypertension Social History Smoking Status: Light Smoker (<10/day) second hand exposure: No alcohol intake: never substance use type: does not use caffeine: Yes what type of physical activity do you participate in: none ROS Const Const: Positive for fatigue; negative for weakness, fever(s) or headache(s) Eyes Eyes: Negative for blind spots, loss of peripheral vision or transient loss of vision ENT ENT: Negative for headache(s), dizziness, tinnitus or Nosebleed/epistaxis Cardio Chest Pain: Yes Palpitations: Yes Edema: None Muscle aches with walking: None Resp Respiratory: Positive for SOB with activity, SOB at rest and Cough; negative for SOB orthopnea\SOB lying down GI GI: Negative nausea, vomiting, heartburn or vomiting blood/hematemesis : Negative for hematuria Musc Musc: Negative for muscle aches/ myalgia Neuro Neuro: Negative for dizziness, lightheadedness, near syncope, syncope, orthostatic symptoms, headache(s) or weakness Igor Hematologic/Lymphatic: Negative for easy bleeding Endo Endo: Positive for fatigue Cardiology Exam Const Appearance: cooperative, healthy appearing, no acute distress, well developed and well groomed Nutritional Appearance: average body habitus and well nourished Orientation: alert, awake and oriented x3 Head Head: normal to inspection, normocephalic and atraumatic Ears: hearing grossly normal bilaterally and external ears normal Nose: external nose normal, nares normal, nasal mucous membranes and turbinates normal, septum normal, no nasal discharge Face and Sinus: face symmetric Mouth: oral mucosae normal, tongue normal, oropharynx normal and moist mucous membranes Teeth and gingiva: dentition normal Throat: posterior oropharynx normal, tonsils normal and uvula midline Eyes General: appearance normal, both eyes and all related structures Eyelids: eyelids normal Conjunctivae: conjunctivae normal Pupils: PERRL, normal by confrontation and accommodation normal EOM: EOM intact bilaterally Neck Neck: normal visual inspection, trachea midline and no JVD JVD: +5 Carotids: normal carotid upstroke and bounding pulses Chest Chest inspection: normal inspection of the chest, symmetric chest movement and normal respiratory effort Auscultation: Bilateral: Clear to Auscultation Cardio Palpation: normal PMI Rate: tachycardic Rhythm: irregular rhythm Heart sounds: S1 normal, S2 normal and normal, physiologic split S2; negative rub, gallop or murmur GI GI: normal to inspection, soft, no hepatosplenomegaly and bowel sounds present Neuro General: alert, awake, oriented x3, gait normal, moves all extremities and no focal sensory deficit Skin Skin: no rashes or lesions noted Extremities Pulses: Normal: Right Posterior Tibial Pulse, Left Posterior Tibial Pulse, Right Radial Pulse, Left Radial Pulse Lower Extremity Edema: None: Bilateral Musculoskel Musculoskeletal: No joint tenderness Psych Psychological: normal affect Assessment & Plan Problems 1. Atrial fibrillation with RVR I48.91 2. Non-ischemic cardiomyopathy I42.8 3. Atherosclerosis of [place] coronary artery of [place] heart without angina pectoris I25.10 4. Essential hypertension I10 5. Pure hypercholesterolemia E78.5 6. History of permanent cardiac pacemaker placement Z95.0 Plan - GABRIELLA Knott Patient is scheduled to undergo a cardioversion today. She has been anticoagulated for at least 1 month on her Xarelto. She will also continue with her high dose of metoprolol she is also on digoxin. We will be able to continue to monitor her atrial fibrillation through her pacemaker interrogations. For her coronary artery disease with her recent stenting in November 2019 she remains on her Plavix, metoprolol, isosorbide, and atorvastatin. In regards to her nonischemic cardiomyopathy she remains on her furosemide. She will follow-up in the office closely.
== END 2020-05-19 13:10 | disposition home or self-care (01) ==
LOC: CLSP 10:03
PROVIDERS: PCP Family Medicine; Referring Provider Internal Medicine Cardiovascular Disease; Visit Provider Internal Medicine Cardiovascular Disease
DX: I48.0 Paroxysmal atrial fibrillation (principal); I42.8 Other cardiomyopathies; I25.10 Atherosclerotic heart disease of native coronary artery without angina pectoris; E78.5 Hyperlipidemia, unspecified; Z95.0 Presence of cardiac pacemaker; I25.5 Ischemic cardiomyopathy; I11.0 Hypertensive heart disease with heart failure; I50.43 Acute on chronic combined systolic (congestive) and diastolic (congestive) heart failure; I25.2 Old myocardial infarction; I71.4 Abdominal aortic aneurysm, without rupture; I73.9 Peripheral vascular disease, unspecified; J44.9 Chronic obstructive pulmonary disease, unspecified; G47.33 Obstructive sleep apnea (adult) (pediatric); I49.5 Sick sinus syndrome; Z95.5 Presence of coronary angioplasty implant and graft; F41.9 Anxiety disorder, unspecified; F32.9 Major depressive disorder, single episode, unspecified; K58.9 Irritable bowel syndrome, unspecified; E66.9 Obesity, unspecified; Z86.16 Personal history of COVID-19; Z87.01 Personal history of pneumonia (recurrent); Z86.19 Personal history of other infectious and parasitic diseases; Z79.02 Long term (current) use of antithrombotics/antiplatelets; Z79.01 Long term (current) use of anticoagulants; Z79.899 Other long term (current) drug therapy; F17.200 Nicotine dependence, unspecified, uncomplicated
CPT/HCPCS: 92960; 93005; J7040

== ENCOUNTER 2020-05-21 11:39 | Emergency (ER) | payer MEDICARE, MEDICAID, SELFPAY ==
[2019-07-16 09:26] VITALS: BMI 29.5
[2020-05-18 10:41] VITALS: BMI 28.3
[2020-05-21 11:41] VITALS: BP 143/76; PULSE 67; RESP 18; TEMP 35.7; O2SAT 100; BMI 23.8
--- NOTE | 2020-05-21 11:50 | RAD_ITS ---
STUDY: X-RAY CHEST REASON FOR EXAM: Female, 70 years old. Cough TECHNIQUE: Single AP portable view of the chest. COMPARISON: May 17, 2020 chest x-ray FINDINGS: There is a left-sided pacer with leads overlying the right atrium and ventricle. The lungs are clear and expanded. There is no demonstrated pleural abnormality. There is mild cardiac enlargement. Normal mediastinum and artis. Normal visualized pulmonary arteries. There is atherosclerotic calcification of the aortic arch with tortuosity. There are diffuse degenerative changes of the visualized thoracic spine. Normal visualized ribs, clavicles, and shoulders. There is no demonstrated abnormality of the visualized soft tissue structures of the upper abdomen. RAD/Chest 1 View (Portable) IMPRESSION: Degenerative changes, as described above. Left-sided pacemaker. Mild cardiomegaly. No demonstrated acute cardiopulmonary process. Electronically Signed: Melita Douglas MD at 12:41 EST Tel , Service support ,
--- NOTE | 2020-05-21 11:55 | ED.VIS.GEN ---
History of Present Illness Chief Complaint: General Illness Informant: Patient Narrative: 80-year-old female presenting with a mild cough and runny nose. She states she had COVID-19 in December. She recovered well. Patient states she called the urgent care who told her since she had recent cardioversion she needs to come to the emergency room. Patient denies chest pain, palpitations, shortness of breath. She denies nausea or vomiting. She says she has mild body aches. Has not had a fever. - Past Medical History (1) Atrial fibrillation with RVR Status: Chronic (2) Abdominal aortic aneurysm (AAA) Status: Chronic Comment: Redemonstration of infrarenal abdominal aortic aneurysm measuring up to 4.4 cm x 4.4 cm essentially similar to previous exam. 01/21/2019 (3) Acute on chronic combined systolic (congestive) and diastolic (congestive) heart failure Status: Chronic (4) COPD (chronic obstructive pulmonary disease) Status: Chronic (5) Essential (primary) hypertension Status: Chronic (6) HLD (hyperlipidemia) Status: Chronic Past Medical History - Allergies and Home Meds Allergies/Adverse Reactions: Allergies lisinopril Allergy (Verified 05/21/20 11:41) tongue swelling Primary Care Physician: Feng Hayes MD [Primary Care Provider] - Prior records reviewed: Yes Surgical History: noncontributory, - - LE intervention for PAD per Dr. Gar, cardiac catheterizations w/ total PCI x 7, Lower back injections, DIOMEDES, T+A, R foot surgery. Lives: Alone Smoking Status: Current every day smoker Alcohol: None Drugs: None - Family History Maternal Family History: Family History (Last Reviewed 04/22/20 @ 13:45 by GABRIELLA Bullock) Father Heart disease Hypertension Seizures Sister CVA (cerebral vascular accident) Hypertension Other Family history of hypertension Family History: Reports: Diabetes, High Cholesterol, Heart Disease, Hypertension, Stroke Paternal Family History: Family History (Last Reviewed 04/22/20 @ 13:45 by GABRIELLA Bullock) Father Heart disease Hypertension Seizures Sister CVA (cerebral vascular accident) Hypertension Other Family history of hypertension Family History: Reports: Diabetes, High Cholesterol, Heart Disease, Hypertension, Stroke Review of Systems General: Denies: Chills, Fever, Sweats Eyes: Denies: Visual changes - bilaterally, Diplopia ENT: Reports: Rhinorrhea. Denies: Sore throat Cardiovascular: Denies: Chest pain, Palpitations Respiratory: Reports: Cough. Denies: Dyspnea, Sputum Gastrointestinal: Denies: Abdominal pain, Nausea, Vomiting Genitourinary: Denies: Dysuria, Hematuria Musculoskeletal: Reports: Myalgias. Denies: Arthralgias, Neck pain Skin: Denies: Rash, Abscess Neurological: Denies: Headache, Weakness, Parasthesia Psych: Denies: Depression, Anxiety Physical Exam Vital Signs/Narrative: Vital Signs Temp Pulse Resp BP Pulse Ox 05/21/20 11:41 96.2 F L 67 18 143/76 H 100 Inital Vital Signs reviewed: Yes General: Well nourished, No Acute Distress Head: Normocephalic, Atraumatic Eyes: Perrl, EOMI ENT: Moist mucous membranes, Nasal congestion, Sinus tenderness, - - Rhinorrhea Neck: Supple, Nontender Respiratory: No distress, CTA bilaterally Extremities: Nontender, No edema Skin: Normal color, No rash Neurological: Alert, Oriented x3, Cranial nerves II-XII grossly intact Psychological: Normal affect, Normal Mood ED Disposition - Plan for ED Patient: Disposition: Home or Assisted Living Instructions: Acute Sinusitis Referrals: Feng Hayes MD [Primary Care Provider] -
[2020-05-21 12:52] VITALS: BP 138/75; PULSE 68; RESP 16; O2SAT 98
== END 2020-05-21 12:52 | disposition home or self-care (01) ==
PROVIDERS: Emergency Provider Student in an Organized Health Care Education/Training Program; PCP Family Medicine
DX: J01.90 Acute sinusitis, unspecified (principal); I11.0 Hypertensive heart disease with heart failure; I48.91 Unspecified atrial fibrillation; I50.42 Chronic combined systolic (congestive) and diastolic (congestive) heart failure; J44.9 Chronic obstructive pulmonary disease, unspecified; I71.4 Abdominal aortic aneurysm, without rupture; E78.5 Hyperlipidemia, unspecified; Z86.16 Personal history of COVID-19; Z95.0 Presence of cardiac pacemaker; Z79.01 Long term (current) use of anticoagulants; Z79.899 Other long term (current) drug therapy; F17.200 Nicotine dependence, unspecified, uncomplicated
CPT/HCPCS: 71045; 99282

== ENCOUNTER 2020-06-06 17:13 | Observation (INO) | payer MEDICARE, MEDICAID, SELFPAY ==
[2019-07-16 09:26] VITALS: BMI 29.5
[2020-06-06] VITALS (9 sets, daily range): BP systolic 126–153; BP diastolic 78–83; PULSE 97–104; RESP 12–30; TEMP 36.3–37.6; O2SAT 88–98; BMI 26.9; BMI 28.0; BMI 27.1
--- NOTE | 2020-06-06 17:46 | CT_ITS ---
INDICATION: confusion EXAMINATION: CT BRAIN - CT Head or Brain W/O Contrast Injection TECHNIQUE: Multiple axial images were obtained of the head without intravenous contrast. A radiation dose optimization technique was used for this scan. IV Contrast dosage and agent: None. COMPARISON: 05/17/2020 FINDINGS: BRAIN PARENCHYMA: No intra- or extra-axial hemorrhage. No evidence of acute infarct. Mild periventricular white matter ischemic changes. No intracranial mass or mass effect. There is preservation of the martines/white matter interface. Posterior fossa structures are unremarkable. Incidental finding of fadi cisterna magna which is normal developmental variant CSF SPACES: Appropriate for age. No hydrocephalus. Basal cisterns are patent. Partial empty sella deformity likely of no significance CALVARIUM, SKULL BASE, PARANASAL SINUSES AND MASTOID AIR CELLS: Clear. No discrete lytic or blastic abnormalities. ORBITS: Status post bilateral optic lens implants. Calcification of cavernous carotids. ASPECTS Score for Acute Strokes: 12/24 CT/Brain/Head without Contrast IMPRESSION: Mild periventricular white matter ischemic changes. No evidence for acute intracranial bleed Electronically Signed: Mahin Watkins MD at 18:46 EDT , Service support ,
--- NOTE | 2020-06-06 17:46 | EKG12_ITS ---
Test Reason : FALL Blood Pressure : / mmHG Vent. Rate : 101 BPM Atrial Rate : 101 BPM P-R Int : 246 ms QRS Dur : 110 ms QT Int : 388 ms P-R-T Axes : 084 000 256 degrees QTc Int : 503 ms Atrial tachycardia with 2:[address] & T wave abnormality, consider inferior ischemia ST & T wave abnormality, consider anterolateral ischemia Abnormal ECG Confirmed by HUYEN JEAN-BAPTISTE, TAYLOR ([id number]), newspaper managing editor MAREN GRIMES ([id number]) on 06/07/2020 1:56:14 PM Referred By: BB Confirmed By:TAYLOR MATSON MD
--- NOTE | 2020-06-06 17:49 | ED.VIS.GEN ---
History of Present Illness Chief Complaint: Confusion Informant: Patient, Family Onset: Days - Several Context: Gradual Onset Timing: Intermittent Quality: Visual and auditory hallucinations Current Severity: Moderate Maximum Severity: Moderate Worsened by: Unknown Relieved by: Unknown Associated Symptoms: Intermittent chest heaviness, dyspnea with exertion, headaches Narrative: Patient had an accidental fall 3-4 weeks ago, hitting her head, she was seen in the emergency department several days after that and had a negative CT scan. She continues to have headaches. For the past week or maybe a little less, she has been having dyspnea with little exertion or bending over, or lying flat. Associated chest heaviness, palpitations, weakness with those symptoms. Has a significant cardiac history. States she has 10 stents, still on Plavix in addition to Xarelto because of a history of atrial fibrillation and had a recent cardioversion, also has a pacemaker because of tachybradycardia syndrome. For the past several days she has been having some visual and auditory hallucinations that are off and on. This is new for her. Daughter lives with her, she is concerned that maybe she has been getting dementia because of memory issues and now this. She has had a cough for the last 3 weeks or so, with some rhinorrhea/congestion. No fevers or chills. She was seen here in the ER diagnosed with sinusitis and placed on Augmentin which she finished, she states it did not help and she feels about the same except for the dyspnea now. Her cough is nonproductive. She denies any urinary or GI symptoms except for a bout of loose stool recently. She had Covid last year that was confirmed with a test, and she had similar hallucinations early on in the process of that illness. - Past Medical History (1) Non-ischemic cardiomyopathy Status: Chronic (2) Persistent atrial fibrillation Status: Chronic (3) History of permanent cardiac pacemaker placement Status: Chronic (4) Tachy-erica syndrome Status: Chronic (5) Acute on chronic combined systolic (congestive) and diastolic (congestive) heart failure Status: Chronic (6) Atherosclerotic heart disease of [place] coronary artery without angina pectoris Status: Chronic (7) Abdominal aortic aneurysm (AAA) Status: Chronic Comment: Redemonstration of infrarenal abdominal aortic aneurysm measuring up to 4.4 cm x 4.4 cm essentially similar to previous exam. 01/21/2019 (8) Essential (primary) hypertension Status: Chronic (9) HLD (hyperlipidemia) Status: Chronic (10) Peripheral vascular occlusive disease Status: Chronic Comment: Bilateral SFA stents. Occluded Right SFA and angioplasty of in-stent stenosis of her left SFA. (11) COPD (chronic obstructive pulmonary disease) Status: Chronic (12) BELLE (obstructive sleep apnea) Status: Chronic Comment: Bipap 17/13 cm of H2O Past Medical History - Allergies and Home Meds Allergies/Adverse Reactions: Allergies lisinopril Allergy (Verified 06/06/20 17:15) tongue swelling Primary Care Physician: Feng Hayes MD [Primary Care Provider] - Surgical History: pacemaker implantation, - - LE intervention for PAD per Dr. Gar, cardiac catheterizations w/ total PCI x 7, Lower back injections, DIOMEDES, T+A, R foot surgery. Lives: With Family Smoking Status: Former smoker - Family History Maternal Family History: Family History (Last Reviewed 06/06/20 @ 15:[address] Jaime Treviño MD) Father Heart disease Hypertension Seizures Sister CVA (cerebral vascular accident) Hypertension Other Family history of hypertension Family History: Reports: Diabetes, High Cholesterol, Heart Disease, Hypertension, Stroke Paternal Family History: Family History (Last Reviewed 06/06/20 @ 15:[address] Jaime Treviño MD) Father Heart disease Hypertension Seizures Sister CVA (cerebral vascular accident) Hypertension Other Family history of hypertension Family History: Reports: Diabetes, High Cholesterol, Heart Disease, Hypertension, Stroke Review of Systems General: Denies: Chills, Fever, Sweats Eyes: Denies: Visual changes - bilaterally, Diplopia ENT: Reports: Rhinorrhea. Denies: Bilateral ear pain, Sore throat Cardiovascular: Reports: Chest pain, Palpitations Respiratory: Reports: Cough, Dyspnea on exertion, Orthopnea. Denies: Sputum Gastrointestinal: Denies: Abdominal pain, Nausea, Vomiting, Diarrhea, Melena, Hematochezia Genitourinary: Denies: Dysuria, Hematuria, Frequency Musculoskeletal: Denies: Neck pain, Back pain, Swelling, Extremity Pain Skin: Denies: Rash, Wounds Neurological: Reports: Headache. Denies: Weakness, Numbness Psych: Reports: Anxiety - When she gets dyspneic, - - Intermittent visual and auditory hallucinations, see HPI. Denies: Suicidal thoughts, Suicidal ideations Physical Exam Vital Signs/Narrative: Vital Signs Temp Pulse Resp BP Pulse Ox 06/06/20 17:15 97.3 F L 104 H 16 126/83 H 95 Inital Vital Signs reviewed: Yes General: Well nourished, Well developed, No Acute Distress Head: Normocephalic, Atraumatic Eyes: Perrl, EOMI ENT: Moist mucous membranes, No rhinorrhea Neck: Supple, Nontender Cardiovascular: Regular rate, Regular rhythm, No murmurs Respiratory: No distress, Chest nontender, Rhonchi - Few bibasilar, Wheezing - Mild inspiratory. Negative for: Rales Abdomen: Soft, Nontender, Nondistended, Normal bowel sounds Back: Nontender, Normal Inspection Extremities: Nontender, No edema. Negative for: Calf Tenderness Skin: Normal color, No rash, No Trauma Neurological: Alert, Oriented x3, Cranial nerves II-XII grossly intact, Normal Strength, Normal Sensation Psychological: Normal affect, Normal Mood Diagnostic/Tx/Re-eval Impressions Brain CT 06/06/20 17:46 IMPRESSION: Mild periventricular white matter ischemic changes. No evidence for acute intracranial bleed Electronically Signed: Mahin Watkins MD at 18:46 EDT , Service support , Chest X-Ray 06/06/20 18:03 IMPRESSION: Findings suspicious for Covid 19 pneumonia however clinical correlation recommended. Electronically Signed: Mahin Watkins MD at 18:49 EDT , Service support , 06/06/20 17:46 Brain/Head without Contrast [CT] Stat 06/06/20 18:03 Chest 1 View (Portable) [RAD] Stat 06/06/20 18:00 Mucosa - Nose SARS-CoV-2 Antigen (Rapid) - Final -- NEGATIVE Laboratory Results 06/06/20 06/06/20 06/06/20 18:00 18:00 18:00 WBC 7.3 RBC 3.55 L Hgb 9.7 L Hct 30.8 L MCV 86.8 MCH 27.3 MCHC 31.5 L RDW Std Deviation 52.5 H RDW Coeff of Natalie 16.9 H Plt Count 196 MPV 11.3 Immature Gran % (Auto) 0.700 Neut % (Auto) 76.5 H Lymph % (Auto) 14.8 L [place] % (Auto) 7.3 Eos % (Auto) 0.4 Baso % (Auto) 0.3 Absolute Neuts (auto) 5.6 Absolute Lymphs (auto) 1.08 Nucleated RBC % 0 Sodium 139 Potassium 3.7 Chloride 107 Carbon Dioxide 24.0 Anion Gap 8 BUN 31 H Creatinine 1.12 H Estim Creat Clear Calc 36.44 Est GFR (MDRD) Af Amer 62 Est GFR (MDRD) Non-Af 51 L BUN/Creatinine Ratio 27.7 H Glucose 88 Calcium 8.6 Troponin I 0.055 H B-Natriuretic Peptide 2343.9 H Urine Color Urine Clarity Urine pH Ur Specific [place] Urine Protein Urine Glucose (UA) Urine Ketones Urine Occult Blood Urine Nitrite Urine Bilirubin Urine Urobilinogen Ur Leukocyte Esterase Urine RBC Urine WBC Ur Squamous Epith Cells Amorphous Sediment Urine Bacteria Urine Mucus 06/06/20 18:10 WBC RBC Hgb Hct MCV MCH MCHC RDW Std Deviation RDW Coeff of Natalie Plt Count MPV Immature Gran % (Auto) Neut % (Auto) Lymph % (Auto) [place] % (Auto) Eos % (Auto) Baso % (Auto) Absolute Neuts (auto) Absolute Lymphs (auto) Nucleated RBC % Sodium Potassium Chloride Carbon Dioxide Anion Gap BUN Creatinine Estim Creat Clear Calc Est GFR (MDRD) Af Amer Est GFR (MDRD) Non-Af BUN/Creatinine Ratio Glucose Calcium Troponin I B-Natriuretic Peptide Urine Color Yellow Urine Clarity Sl. Cloudy Urine pH 5.0 Ur Specific [place] 1.010 Urine Protein Negative Urine Glucose (UA) Normal Urine Ketones Negative Urine Occult Blood Negative Urine Nitrite Negative Urine Bilirubin Negative Urine Urobilinogen Normal Ur Leukocyte Esterase Negative Urine RBC 0 SEEN Urine WBC 0 SEEN Ur Squamous Epith Cells 0 SEEN Amorphous Sediment 1+ Urine Bacteria 0 SEEN Urine Mucus 0 SEEN - Rhythm Strip Rhythm Strip: Sinus Tach Rate: 101 Ectopy: None - EKG Initial EKG Interpretation: Sinus Rhythm - With intermittent ventricular pacing, AV Block - First-degree, Inverted T-Waves - Laterally, consistent with LV strain pattern Prior: Unchanged - Medical Decision Making Patient's work-up is consistent with CHF. On my interpretation 1 view chest x-ray shows the failure pattern. Radiology was concerned about a possible Covid pattern, a Covid test was already obtained and is negative, and I am more concerned about this being cardiogenic. She does not have a leukocytosis. She is having exertional chest heaviness and dyspnea and orthopnea. Her troponin is elevated. It is possible that her symptoms of delirium are related to all of this, possibly intermittent hypoxemia, and she actually is mildly hypoxic at rest here in the emergency department at 88% on room air. She was placed on oxygen nasal cannula 2 L. She is not having chest discomfort at rest at this time. She was given Lasix and plan is for admission further evaluation of work-up. ED Disposition - Plan for ED Patient: Disposition: [facility] Diagnosis: Delirium due to another medical condition, Acute exacerbation of congestive heart failure, Elevated troponin, Intermittent chest pain, Hypoxemia Referrals: Feng Hayes MD [Primary Care Provider] -
--- NOTE | 2020-06-06 18:03 | RAD_ITS ---
STUDY: X-RAY CHEST REASON FOR EXAM: Female, 70 years old. cough, sob TECHNIQUE: Cough and shortness of breath COMPARISON: 05/21/2020 FINDINGS: Diffuse bilateral interstitial thickening with focal areas of increased density more pronounced in the lower lobes possibly representing atypical viral pneumonia.. There is no demonstrated pleural abnormality. Pacer noted on the left with electrodes in satisfactory position. Heart is enlarged. Normal mediastinum and artis. Normal visualized pulmonary arteries. Tortuous mildly calcified aortic arch and descending thoracic aorta. Normal visualized thoracic spine. Normal visualized ribs, clavicles, and shoulders. There is no demonstrated abnormality of the visualized soft tissue structures of the upper abdomen. RAD/Chest 1 View (Portable) IMPRESSION: Findings suspicious for Covid 19 pneumonia however clinical correlation recommended. Electronically Signed: Mahin Watkins MD at 18:49 EDT , Service support ,
[2020-06-06 18:17] LABS: Absolute Lymphocyte Count 1.08 X10^3/uL (0.83-4.51); Absolute Neutrophil Count 5.6 X10^3/uL (2.0-7.7); Basophil# 0.02 X10^3/uL; Basophil% 0.3 % (0-1); Eosinophil# 0.03 X10^3/uL; Eosinophils% 0.4 % (0-5); Hematocrit 30.8 % (37-47); Hemoglobin 9.7 g/dL (12.0-15.0); Lymphocyte # 1.08 X10^3/ul (4.0); Lymphocyte % 14.8 % (19-41); Mean Corp Hgb Conc 31.5 g/dL (32-36); Mean Corpuscular Hgb 27.3 pg (27.0-32.0); Mean Corpuscular Volume 86.8 fL (81-99); Mean Platelet Vol. 11.3 fl (6.2-12.0); Monocyte# 0.53 X10^3/uL; Monocyte% 7.3 % (0-10); NRBC Flagged by Analyzer 0 % (0-5); Neutrophil % 76.5 % (47-70); Platelet Count 196 K/mm3 (150-450); RBC Distribution Width CV 16.9 % (11.6-14.6); RBC Distribution Width SD 52.5 fl (35.1-43.9); Red Blood Count 3.55 M/mm3 (4.2-5.4); White Blood Count 7.3 K/mm3 (4.4-11.0)
[2020-06-06 18:23] LABS: Bacteria 0 SEEN /hpf (None Seen); Mucous, Urine 0 SEEN /hpf (<or=2+); Red Blood Cells-Urine 0 SEEN /hpf (0-5); Squamous Epithelial Cells - UA 0 SEEN /hpf (5-10); White Blood Cells 0 SEEN /hpf (0-5)
[2020-06-06 18:26] LABS: Color, Urine Yellow (Yellow); Glucose, Dipstick Normal (Normal); Ketone-Dipstick Negative (Negative); Leukocyte Esterase-Dipstick Negative /ul (Negative); Nitrite-Dipstick Negative (Negative); Occult Blood-Urine Negative /ul (Negative); Protein-Dipstick Negative (Negative); Urine Bilirubin Dipstick Negative (Negative); Urine Clarity Sl. Cloudy (Clear); Urine Urobilinogen Normal (Normal)
[2020-06-06 18:31] LABS: Amorphous Sediment 1+
[2020-06-06 18:37] LABS: Anion Gap 8 (5-15); BNP,B-Type NATRIURETIC PEPTIDE 2343.9 pg/mL (0-100); BUN 31 mg/dL (7-18); BUN/Creat Ratio 27.7 RATIO (10-20); Calcium,Total 8.6 mg/dL (8.5-10.1); Chloride 107 mmol/L (98-107); Creatinine, Serum 1.12 mg/dL (0.55-1.02); EST Glomerular Filtration Rate 51 mL/min (>60); Est Glom Filt Rate - Afr Amer 62 mL/min (>60); Estimated Creatinine Clearance 36.44 ml/min; Glucose 88 mg/dL (74-106); Potassium 3.7 mmol/L (3.5-5.1); Sodium Level 139 mmol/L (136-145)
--- NOTE | 2020-06-06 19:54 | PCM.HP.STD ---
Problem List (1) Hypoxia Status: Acute (2) Acute exacerbation of congestive heart failure Status: Acute Qualifiers: Heart failure type: combined systolic and diastolic Qualified Code(s): I50.43 - Acute on chronic combined systolic (congestive) and diastolic (congestive) heart failure (3) Elevated troponin Status: Acute (4) Intermittent chest pain Status: Acute (5) Non-ischemic cardiomyopathy Status: Chronic (6) History of permanent cardiac pacemaker placement Status: Chronic (7) Tachy-erica syndrome Status: Chronic (8) Acute on chronic combined systolic (congestive) and diastolic (congestive) heart failure Status: Chronic (9) 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 (10) History of coronary artery stent placement Status: Chronic Comment: [id number] LCx and OM 03/20/99; PCI-CARMEN of distal RCA and POBA-ostium of posterolateral branch for stent jailing; PCI-CARMEN to RCA and PDA 02/20; PCI-CARMEN to ISR-RCA 04/21/2015; [id number] RPDA w/ 2.5 x 24 mm Promus Stent and Distal RCA w/ 3.0 x 16 mm Promus Stent and POBA Ostial RPLB 03/18/2019 (11) Paroxysmal atrial fibrillation Status: Chronic (12) Abdominal aortic aneurysm (AAA) Status: Chronic Qualifiers: Comment: Redemonstration of infrarenal abdominal aortic aneurysm measuring up to 4.4 cm x 4.4 cm essentially similar to previous exam. 01/21/2019 (13) Essential (primary) hypertension Status: Chronic (14) HLD (hyperlipidemia) Status: Chronic Qualifiers: Hyperlipidemia type: unspecified Qualified Code(s): E78.5 - Hyperlipidemia, unspecified (15) Peripheral vascular occlusive disease Status: Chronic Comment: Bilateral SFA stents. Occluded Right SFA and angioplasty of in-stent stenosis of her left SFA. (16) COPD (chronic obstructive pulmonary disease) Status: Chronic Qualifiers: COPD type: unspecified COPD Qualified Code(s): J44.9 - Chronic obstructive pulmonary disease, unspecified (17) BELLE (obstructive sleep apnea) Status: Chronic Comment: Bipap 17/13 cm of H2O (18) Nicotine dependence Status: Chronic Qualifiers: Nicotine product type: cigarettes Substance use status: unspecified nicotine-induced disorder Qualified Code(s): F17.219 - Nicotine dependence, cigarettes, with unspecified nicotine-induced disorders History of Present Illness Date of Admission: 06/06/20 Chief Complaint: Dyspnea, cough, orthopnea, chest pressure. The patient is a 70 y/o F w/ PMHx: CKD stage III, Chronic anemia, Hx Infrarenal AAA, Chronic Systolic/Dystolic CHF, HTN, HLD, CAD/PAD s/p significant PCI history, PVOD s/p BL SFA stents/angioplasties, Hx Tachy-erica syndrome s/p pacemaker placement, PAF, Anxiety and Depression, Chronic COPD, BELLE on BIPAP q HS who presents to the [facility] ED on 06/06/20 with history of increased confusion intermittently, visual and auditory hallucinations with also concurrent intermittent chest heaviness, midsternal without radiation with dyspnea associated, worse with exertion over the last approximate 1 week with reportedly dyspnea worse with certain activities including lying flat or bending over with also associated debility, fatigue as well as palpitations. Patient was previously seen secondary to recent cough, congestion, rhinorrhea with suspected sinusitis at that time with discharge on Augmentin regimen which she completed with no specific help or improvement with ongoing nonproductive cough with dyspnea. She does note recent loose stools but this is a singular episode. Patient did have episode of Covid 01/01/2020 which was test confirmed. At that time she had hallucinations per family report. Work-up in the ED included T 97.3 temporally, heart rate 104, BP 126/83, respiratory rate 16, 95% on room air, CBC with WBC 7.3, hemoglobin 9.7, platelet 196 without marked shift, BMP with BUN/creatinine 31/1.12, troponin 0 0.055, BNP 2343.9, urinalysis not marked appearing, Covid rapid antigen negative, CT the brain with mild periventricular white matter ischemic changes with no evidence of acute intracranial bleed, chest x-ray with findings suspicious for possible COVID-19 pneumonia however appearance more concerning for volume overload with CHF/congestion, EKG intermittent sinus tachycardia with ventricular pacing with AV block first-degree with inverted T waves laterally consistent with LV strain unchanged from prior. In the ED patient administered IV lasix 40 mg x 1. Past Medical History Past Medical History (Chronic Problems): Chronic Problems (Last Reviewed 06/06/20 @ 15:[address] 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 (Chronic) Non-STEMI (non-ST elevated myocardial infarction) (Chronic 03/19/19) 04/21/2015, 03/19/2019 History of coronary artery stent placement (Chronic 03/18/19) [id number] LCx and OM 03/20/99; PCI-CARMEN of distal RCA and POBA-ostium of posterolateral branch for stent jailing; PCI-CARMEN to RCA and PDA 02/20; PCI-CARMEN to ISR-RCA 04/21/2015; [id number] RPDA w/ 2.5 x 24 mm Promus Stent and Distal RCA w/ 3.0 x 16 mm Promus Stent and POBA Ostial RPLB 03/18/2019 Paroxysmal atrial fibrillation (Chronic) Abdominal aortic aneurysm (AAA) (Chronic) Redemonstration of infrarenal abdominal aortic aneurysm measuring up to 4.4 cm x 4.4 cm essentially similar to previous exam. 01/21/2019 Essential (primary) hypertension (Chronic) HLD (hyperlipidemia) (Chronic) Peripheral vascular occlusive disease (Chronic) Bilateral SFA stents. Occluded Right SFA and angioplasty of in-stent stenosis of her left SFA. COPD (chronic obstructive pulmonary disease) (Chronic) BELLE (obstructive sleep apnea) (Chronic) Bipap 17/13 cm of H2O Smoking greater than 30 pack years (Chronic) Low-dose CT lung screening due November 2020 Nicotine dependence (Chronic) Medical History: Medical History (Last Reviewed 06/06/20 @ 15:[address] 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 01/21/2019 Essential (primary) hypertension (Chronic) I10 HLD (hyperlipidemia) (Chronic) E78.5 Peripheral vascular occlusive disease (Chronic) I73.9 Bilateral SFA stents. Occluded Right SFA and angioplasty of in-stent stenosis of her left SFA. COPD (chronic obstructive pulmonary disease) (Chronic) J44.9 BELLE (obstructive sleep apnea) (Chronic) G47.33 Bipap 17/13 cm of H2O Smoking greater than 30 pack years (Chronic) F17.210 Low-dose CT lung screening due November 2020 Nicotine dependence (Chronic) F17.200 Anxiety and depression F41.8 Claudication in peripheral vascular disease I73.9 Emphysema of lung J43.9 IBS (irritable bowel syndrome) Obesity E66.9 Angina pectoris (Resolved) I20.9 Atrial fibrillation with RVR (Resolved) I48.91 Paroxsymal COVID-19 Onset Date: 01/01/20 U07.1 Hypokalemia (Resolved) E87.6 Pneumonia due to 2019 novel coronavirus Onset Date: 01/01/20 U07.1, J12.89 Sepsis Onset Date: 01/01/20 A41.9 Unstable angina pectoris due to coronary arteriosclerosis (Resolved) I25.110 Acute on chronic diastolic (congestive) heart failure (Inactive) I50.33 Dyspnea on exertion (Inactive) R06.09 PAD (peripheral artery disease) (Inactive) I73.9 Wheezing (Inactive) R06.2 Allergies lisinopril Allergy (Verified 06/06/20 17:15) tongue swelling Home Medications: Ambulatory Orders Medication Instructions Recorded albuterol sulfate 90 mcg/actuation 1 - 2 puff INHALATION Q4H PRN PRN 06/16/18 aerosol inhaler #1 inhaler atorvastatin 40 mg tablet 40 mg PO QHS tab 07/09/19 dicyclomine 10 mg capsule 10 mg PO 4X/DAY 07/09/19 famotidine 20 mg tablet 20 mg PO DAILY 07/09/19 gabapentin 300 mg capsule 300 mg PO TID 07/09/19 Clopidogrel Bisulfate [Plavix] 75 mg PO QHS 08/30/19 Fluticasone Propion/Salmeterol 1 each IH BID 04/22/20 [Wixela 500-50 Inhub] Potassium Chloride [K-Tab ER] 20 meq PO BID 04/22/20 Furosemide [Lasix] 40 mg PO DAILY 05/17/20 mirtazapine 15 mg tablet 15 mg PO QHS 05/26/20 Amiodarone HCl 200 mg PO .COMPLEX 06/06/20 Isosorbide Mononitrate [Isosorbide 60 mg PO DAILY 06/06/20 Mononitrate ER] Metoprolol Tartrate [Lopressor 100 mg PO BID 06/06/20 (beta declan)] Rivaroxaban [Xarelto] 20 mg PO DAILY@1700 06/06/20 Rotigotine [Neupro] 2 mg TOPICAL DAILY 06/06/20 Surgical History: Surgical History (Last Reviewed 06/06/20 @ 15:[address] Jaime Treviño MD) History of permanent cardiac pacemaker placement (Chronic) Onset Date: 03/27/20 Z95.0 History of coronary artery stent placement (Chronic) Onset Date: 03/18/19 Z95.5 [id number] LCx and OM 03/20/99; PCI-CARMEN of distal RCA and POBA-ostium of posterolateral branch for stent jailing; PCI-CARMEN to RCA and PDA 02/20; PCI-CARMEN to ISR-RCA 04/21/2015; [id number] RPDA w/ 2.5 x 24 mm Promus Stent and Distal RCA w/ 3.0 x 16 mm Promus Stent and POBA Ostial RPLB 03/18/2019 History of angioplasty of peripheral vessel Z98.62 Bilateral SFA stents. Occluded Right SFA and angioplasty of in-stent stenosis of her left SFA. History of bilateral leg stents History of bunionectomy of right great toe Z98.890 History of cardioversion Onset Date: 05/19/20 Z98.890 History of colonoscopy Onset Date: 06/2018 Z98.890 History of hysterectomy Z90.710 History of left heart catheterization Onset Date: 11/25/19 Z98.890 03/20/99, 07/31/99,12/21/02, 06/2003, 02/2007, 12/2010, 04/20/15, 11/25/2019 History of tonsillectomy Z90.89 Hx of APLL Right X2-01/05/15, 11/26/13 Left X2- 02/15/15, 09/23/2016 Hx of hysterectomy Z90.710 Status post left foot surgery Z98.890 Surgical History: pacemaker implantation, - - LE intervention for PAD per Dr. Gar, cardiac catheterizations w/ total PCI x 7, Lower back intervention, DIOMEDES, T+A, R foot surgery, pacemaker. 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 Tobacco Use: Non-smoker Alcohol: None Drugs: None - *Family History Maternal Family History: Family History (Last Reviewed 06/06/20 @ 15:[address] Jaime Treviño MD) Father Heart disease Hypertension Seizures Sister CVA (cerebral vascular accident) Hypertension Other Family history of hypertension History Items: Diabetes, High Cholesterol, Heart Disease, Hypertension, Stroke Paternal Family History: Family History (Last Reviewed 06/06/20 @ 15:[address] Jaime Treviño MD) Father Heart disease Hypertension Seizures Sister CVA (cerebral vascular accident) Hypertension Other Family history of hypertension History Items: Diabetes, High Cholesterol, Heart Disease, Hypertension, Stroke Review of Systems Constitutional: Reports: Malaise, Weakness, Fatigue. Denies: Anorexia, Chills, Fever, Weight Change HEENT: Reports: Head Aches. Denies: Sinus Congestion, Sinus Drainage Cardiovascular: Reports: Chest Pain, Chest Pressure, Heaviness, Orthopnea. Denies: Chest Tightness, Light Headedness, Palpitations, Syncope Respiratory: Reports: Cough, Shortness of Breath, Shortness of breath upon exertion. Denies: Shortness of breath at rest, Sputum production, Wheezing Gastrointestinal: Denies: Abdominal Pain, Nausea, Vomiting Genitourinary: Denies: Dysuria Musculoskeletal: Reports: Back Pain, Joint Pain. Denies: Joint Tenderness Skin: Denies: Rash, Wounds Neurological: Denies: Numbness, Tingling, Focal weakness Psychiatric: Reports: Anxiety, Depression. Denies: Homicidal Ideations, Suicidal Ideations Hematologic/ Lymphatic: Reports: Anemia, Easy Bruising, Easy Bleeding VTE Information - Inpt Only VTE Present on Admission: No VTE Mechan Device Prophylaxis: SCD's VTE Pharm Prophylaxis ordered?: No Reason prophylaxis not ordered:: Treatment Not Indicated - We will continue patient home anticoagulant therapy. Patient Problems: Active and Suspected Problems (Last Reviewed 06/06/20 @ 15:[address] Jaime Treviño MD) Delirium due to another medical condition (Acute) Acute exacerbation of congestive heart failure (Acute) Elevated troponin (Acute) Intermittent chest pain (Acute) Hypoxia (Acute) - Physical Exam Vitals/I&O's: Vital Signs Temp Pulse Resp BP Pulse Ox 97.3 F L 102 H 24 H 141/78 H 96 06/06/20 17:15 06/06/20 19:03 06/06/20 19:03 06/06/20 19:03 06/06/20 19:03 Oxygen Delivery Method Room Air Weight: 153 lb Body Mass Index (BMI) 28.0 Finger Stick Blood Glucose 132 Microbiology Past 72 Hours 06/06/20 18:00 Mucosa - Nose SARS-CoV-2 Antigen (Rapid) - Final Laboratory Results 06/06/20 18:00: Sodium 139, Potassium 3.7, Chloride 107, Carbon Dioxide 24.0, Anion Gap 8, BUN 31 H, Creatinine 1.12 H, Estim Creat Clear Calc 36.44, Est GFR (MDRD) Af Amer 62, Est GFR (MDRD) Non-Af 51 L, BUN/Creatinine Ratio 27.7 H, Glucose 88, Calcium 8.6, Troponin I 0.055 H 06/06/20 18:00: WBC 7.3, RBC 3.55 L, Hgb 9.7 L, Hct 30.8 L, MCV 86.8, MCH 27.3, MCHC 31.5 L, RDW Std Deviation 52.5 H, RDW Coeff of Natalie 16.9 H, Plt Count 196, MPV 11.3, Immature Gran % (Auto) 0.700, Neut % (Auto) 76.5 H, Lymph % (Auto) 14.8 L, [place] % (Auto) 7.3, Eos % (Auto) 0.4, Baso % (Auto) 0.3, Absolute Neuts (auto) 5.6, Absolute Lymphs (auto) 1.08, Nucleated RBC % 0 06/06/20 18:00: B-Natriuretic Peptide 2343.9 H 06/06/20 18:10: Urine Color Yellow, Urine Clarity Sl. Cloudy, Urine pH 5.0, Ur Specific [place] 1.010, Urine Protein Negative, Urine Glucose (UA) Normal, Urine Ketones Negative, Urine Occult Blood Negative, Urine Nitrite Negative, Urine Bilirubin Negative, Urine Urobilinogen Normal, Ur Leukocyte Esterase Negative, Urine RBC 0 SEEN, Urine WBC 0 SEEN, Ur Squamous Epith Cells 0 SEEN, Amorphous Sediment 1+, Urine Bacteria 0 SEEN, Urine Mucus 0 SEEN Assessment/Plan All Active Problems (Last Reviewed 06/06/20 @ 15:[address] Jaime Treviño MD) Delirium due to another medical condition (Acute) Acute exacerbation of congestive heart failure (Acute) Elevated troponin (Acute) Intermittent chest pain (Acute) Hypoxia (Acute) Angina pectoris (Resolved) Atrial fibrillation with RVR (Resolved) Atypical chest pain (Resolved) Chest pain (Resolved) Chest pain (Resolved 01/01/20) Encephalopathy acute (Resolved) Hypokalemia (Resolved) Pneumonia (Resolved) Preop cardiovascular exam (Resolved) Unstable angina pectoris due to coronary arteriosclerosis (Resolved) The patient is a 70 y/o F w/ PMHx: CKD stage III, Chronic anemia, Hx Infrarenal AAA, Chronic Systolic/Dystolic CHF, HTN, HLD, CAD/PAD s/p significant PCI history, PVOD s/p BL SFA stents/angioplasties, Hx Tachy-erica syndrome s/p pacemaker placement, PAF, Anxiety and Depression, Chronic COPD, BELLE on BIPAP q HS who presents to the [facility] ED on 06/06/20 with history of increased confusion intermittently, visual and auditory hallucinations with also concurrent intermittent chest heaviness with dyspnea associated, worse with exertion and concurrent headaches over the last approximate 1 week with reportedly dyspnea worse with certain activities including lying flat or bending over with also associated debility, fatigue as well as palpitations. 1. Acute Decompensated Systolic/Diastolic CHF with associated Hypoxia: CXR obtained in the ED w/ findings suspicious for reportedly possible Covid pneumonia however more consistent with volume overload especially given BNP and negative Covid testing. Patient administered IV lasix in the ED, will admit to PCU, maintain on cardiac telemetry, obtain cardiac enzyme series, obtain serial EKGs, continue IV lasix diuresis, monitor I/Os, maintain on intake restriction, continue medical therapy, obtain TSH and magnesium level. Most recent ECHO noted 03/28/20 w/ normal LV size, moderate global LV systolic dysfunction, EF 40%, mild concentric MVI, PASP 35 mmHg thus will defer repeating. PRN morphine to decrease afterload, continue oxygen supplementation, if necessary will position w/ upright position with legs off bed to decrease preload. 2. Indeterminate cardiac enzyme suspected secondary to demand: ED evaluation w/ chest x-ray with findings suspicious for possible COVID-19 pneumonia, EKG intermittent sinus tachycardia with ventricular pacing with AV block first-degree with inverted T waves laterally consistent with LV strain unchanged from prior, trop 0.055. Will place on a monitored bed to assure no acute myocardial infarction with serial cardiac enzymes and EKGs. Mag pending. ASA, NG, morphine. 3. CAD/PAD: s/p PCI notable history of RCA as well as first obtuse marginal branch, most recent intervention 11/2019 with at that time had proximal circumflex artery subtotally occluded with most recent stress testing 05/07 with evidence of jose-infarct ischemia with a basal inferior infarct with continue medical therapy recommendation at that time, continue home Xarelto, Plavix, metoprolol, statin therapy. ([id number] LCx and OM 03/20/99; PCI-CARMEN of distal RCA and POBA-ostium of posterolateral branch for stent jailing; PCI-CARMEN to RCA and PDA 02/20; PCI-CARMEN to ISR-RCA 04/21/2015; [id number]-JJH-[id number] RPDA w/ 2.5 x 24 mm Promus Stent and Distal RCA w/ 3.0 x 16 mm Promus Stent and POBA Ostial RPLB 03/18/2019) 4. Persistent AF w/ Hx tachy-erica syndrome concurrently: Patient status post dual-chamber pacemaker implantation, prior history of DC cardioversion, continue patient Xarelto, amiodarone, metoprolol home regimen. 5. CKD stage III: Admission BUN/creatinine 31/1.12, baseline prior 1.2-1.3 most recently, had been up to 1.63 on 05/17/2020, will continue to trend. 6. Hypertension: Continue home regimen including isosorbide, metoprolol, Lasix as noted, PRN hydralazine. 7. Hyperlipidemia: Continue home statin regimen. 8. PVOD: Status bilateral lower extremity SFA stents as well as angioplasty, continue patient statin, Xarelto, Plavix, hypertensive regimen as noted. 9. Chronic COPD: We will hold home inhalers, maintain on budesonide scheduled as well as as needed albuterol, encourage head of bed and I-S. 10. Chronic normocytic anemia: Admission hemoglobin 9.7, prior 9-11 range, stable, trend. 11. Anxiety and depression: We will continue patient home mirtazapine regimen. 12. GERD: We will maintain on famotidine home regimen. 13. Hx AAA, Infrarenal: Patient with infrarenal abdominal aortic aneurysm without rupture, most recent evaluation noting 4.4 cm x 4.4 cm similar to prior 01/21/2019 evaluation. 14. BELLE: Continue home BIPAP q HS. 15. Tobacco Abuse: Patient recent tobacco cessation this prior Friday, encouraged continued cessation, inpatient consultation per RT, NR if desired. 16. DVT prophylaxis: SCDs, continue home Xarelto regimen. 17. CODE status: Patient AMBER is her daughter who is present Argelia White and living will is currently in place. Discussed CODE status at length including difference between FULL code, DNR-CCA and DNR-CC status. Following discussions about the differences in these status, requested full code status. Advanced Care Planning Face to Face Time: 16 minutes. Inpatient E&M: 93419 Init Hosp L3 Procedures: [id number] Advncd Care Plan 30 Min
[2020-06-06] MEDS: Furosemide 40 MG/4 ML Vial IV (20:07)
[2020-06-06] MEDS: Amiodarone 200 MG Tablet PO (21:20)
[2020-06-06] MEDS: Gabapentin 300 MG Capsule PO (21:20)
[2020-06-06] MEDS: Mirtazapine 15 MG Tablet PO (21:21)
[2020-06-06] MEDS: Dicyclomine 10 MG Capsule PO (21:21)
[2020-06-06] MEDS: Metoprolol Tartrate 100 MG Tablet PO (21:21)
[2020-06-06] MEDS: Potassium Chloride Oral Tablet 20 MEQ PO (21:21)
[2020-06-06] MEDS: Atorvastatin Calcium 40 MG Tablet PO (21:21)
[2020-06-06] MEDS: Morphine 2 MG/ML Syringe IV (21:28)
[2020-06-06] MEDS: 0.9% Saline Lock 10 ML Syringe IV (21:29)
[2020-06-06 22:23] LABS: Procalcitonin 0.07 ng/mL (0.00-0.09)
[2020-06-07] VITALS (15 sets, daily range): BP systolic 96–124; BP diastolic 65–77; PULSE 98–103; RESP 12–23; TEMP 36.7–36.8; O2SAT 91–100
--- NOTE | 2020-06-07 05:55 | EKG12_ITS ---
Test Reason : AM EKG Blood Pressure : / mmHG Vent. Rate : 101 BPM Atrial Rate : 202 BPM P-R Int : 000 ms QRS Dur : 108 ms QT Int : 366 ms P-R-T Axes : 257 -04 265 degrees QTc Int : 474 ms Atrial flutter with variable A-V block with premature ventricular or aberrantly conducted complexes Incomplete left bundle branch block ST & T wave abnormality, consider inferior ischemia ST & T wave abnormality, consider anterolateral ischemia Abnormal ECG When compared with ECG of 06-JUN-2020 17:56, MANUAL COMPARISON REQUIRED, DATA IS UNCONFIRMED Confirmed by MARTIN JEAN-BAPTISTE, GABO ([id number]), stock handler LIGIA GUTIERREZ ([id number]) on 06/08/2020 12:42:01 PM Referred By: ANDREW Confirmed By:TITA SALAZAR MD
--- NOTE | 2020-06-07 05:55 | RAD_ITS ---
STUDY: X-RAY CHEST REASON FOR EXAM: Female, 70 years old. Dyspnea, cough TECHNIQUE: Single AP portable view of the chest. COMPARISON: Comparison is made with prior study 06/06/2020. FINDINGS: EKG electrodes are seen. Persistent increased interstitial markings in both lungs although there has been mild improvement. This is suggestive mild degree of CHF superimposed on scarring. There is no demonstrated pleural abnormality. Normal size heart. A left-sided dual-chamber pacemaker is seen. Normal mediastinum and artis. Normal visualized pulmonary arteries. There is atherosclerotic calcification of the aortic arch with tortuosity. There is a dextroscoliosis of the thoracic spine. Normal visualized ribs, clavicles, and shoulders. There is no demonstrated abnormality of the visualized soft tissue structures of the upper abdomen. RAD/Chest 1 View (Portable) IMPRESSION: Persistent increased interstitial markings in both lungs suggests a mild degree of CHF superimposed on mild degree of bibasilar scarring. There has been mild improvement. Electronically Signed: Brown Yanes MD at 8:07 EDT , Service support ,
[2020-06-07] MEDS: Dicyclomine 10 MG Capsule PO ×4 (06:47→21:45)
[2020-06-07] MEDS: Gabapentin 300 MG Capsule PO (06:47)
[2020-06-07 06:48] LABS: Absolute Lymphocyte Count 0.89 X10^3/uL (0.83-4.51); Absolute Neutrophil Count 4.3 X10^3/uL (2.0-7.7); Basophil# 0.02 X10^3/uL; Basophil% 0.3 % (0-1); Eosinophil# 0.07 X10^3/uL; Eosinophils% 1.2 % (0-5); Hematocrit 28.9 % (37-47); Hemoglobin 9.2 g/dL (12.0-15.0); Lymphocyte # 0.89 X10^3/ul (4.0); Lymphocyte % 15.3 % (19-41); Mean Corp Hgb Conc 31.8 g/dL (32-36); Mean Corpuscular Hgb 27.5 pg (27.0-32.0); Mean Corpuscular Volume 86.3 fL (81-99); Mean Platelet Vol. 10.8 fl (6.2-12.0); Monocyte# 0.54 X10^3/uL; Monocyte% 9.3 % (0-10); NRBC Flagged by Analyzer 0 % (0-5); Neutrophil # 4.28 X10^3/uL (2.7-7.7); Neutrophil % 73.4 % (47-70); Platelet Count 170 K/mm3 (150-450); RBC Distribution Width CV 17.1 % (11.6-14.6); RBC Distribution Width SD 52.8 fl (35.1-43.9); Red Blood Count 3.35 M/mm3 (4.2-5.4); White Blood Count 5.8 K/mm3 (4.4-11.0)
[2020-06-07] MEDS: Budesonide Respules 0.5 MG/2 ML AMPUL.NEB. INHALATION ×2 (07:06→19:25)
[2020-06-07 07:22] LABS: AST(SGOT) 19 U/L (15-37); Alanine Aminotransfer ALT/SGPT 19 U/L (13-56); Albumin, Serum 2.9 g/dL (3.2-5.0); Alkaline Phosphatase 85 U/L (45-117); Anion Gap 7 (5-15); BUN 29 mg/dL (7-18); Calcium,Total 8.1 mg/dL (8.5-10.1); Chloride 111 mmol/L (98-107); Cholesterol 103 mg/dL (200); Creatinine, Serum 0.97 mg/dL (0.55-1.02); EST Glomerular Filtration Rate 60 mL/min (>60); Est Glom Filt Rate - Afr Amer 73 mL/min (>60); Estimated Creatinine Clearance 42.07 ml/min; Globulin 2.9 g/dL (2.2-4.2); Glucose 79 mg/dL (74-106); High Density Lipoprotein 34 mg/dL; Potassium 3.6 mmol/L (3.5-5.1); Protein, Total 5.8 g/dL (6.4-8.2); Sodium Level 141 mmol/L (136-145); T4 Free Direct 1.31 ng/dL (0.76-1.46); Thyroid Stim Hormone (TSH) 3.12 uIU/mL (0.358-3.74); Triglycerides 98 mg/dL; Very Low Density Lipoprotein 20 mg/dL (5-40)
[2020-06-07] MEDS: 0.9% Saline Lock 10 ML Syringe IV (09:18)
[2020-06-07] MEDS: Potassium Chloride Oral Tablet 20 MEQ PO ×2 (09:18→21:45)
[2020-06-07] MEDS: Furosemide 40 MG/4 ML Vial IV ×2 (09:18→17:29)
[2020-06-07] MEDS: Famotidine 20 MG Tablet PO (09:18)
[2020-06-07] MEDS: Isosorbide Mononitrate 60 MG Tablet PO (09:19)
[2020-06-07] MEDS: Metoprolol Tartrate 100 MG Tablet PO ×2 (09:19→21:45)
[2020-06-07] MEDS: Amiodarone 200 MG Tablet PO ×2 (09:20→21:45)
--- NOTE | 2020-06-07 12:21 | NURSING ---
RN CM Assessment Introduced role of RN CM to patient.? Patient is alert, oriented and able?to participate in RN CM Assessment. ?Care providers, pharmacy, and demographics verified. Admit Dx: CHF exacerbation, Hypoxia Re-Admit: No Barriers/Issues: None PCP: Morgan Hayes Specialists: Cardio- Kamila, Pulm- Francisco J, Ortho- Laurie Gar [facility] Insurance: Toni Urena Rx Benefit:?Yes LNOK: Dtr Argelia Puri LW/HPOA: Has both and are on file at [facility]. HPOA- Dtr Argelia Puri Living Arrangements:? Lives with dtr and her son in a 3SH (including basement). Patient bedroom on 2nd level. 5-6 steps to enter home through front and 4-5 steps to enter through the back. ADL?s: Independent with ambulation and ADLs Transportation: Patient drives, dtr Argelia to transport upon DC DME: Rollator, CPAP-cannot recall DME company and has not used lately d/t current illness. HHC: None SNF: None Goal: Home and does not think will have any needs. Patient is currently at rest on room air. Aware RNCM will continue to follow should any needs arise. Aware nursing may perform walking O2 test prior to DC to ensure Home O2 is not needed on exertion and RNCM to f/u. Given in network list of DME companies and states preference would be [facility]. DC PLAN: Home with possible home O2. JENNIFER Hickman
[2020-06-07] MEDS: Gabapentin 100 MG Capsule 200 MG PO ×2 (12:44→17:29)
--- NOTE | 2020-06-07 15:12 | CASEMGMT ---
Pt qualifies for palliative c/s via [facility] palliative screening tool and Dr. Powers/pt agreeable to c/s. Referral faxed to palliative and Julianne at palliative notified. Barbara FALCON CM
[2020-06-07] MEDS: Rivaroxaban 20 MG Tablet PO (17:30)
--- NOTE | 2020-06-07 17:56 | PN_ITS ---
Patient Problems: Active and Suspected Problems (Last Reviewed 06/06/20 @ 15:[address] Jaime Treviño MD) Delirium due to another medical condition (Acute) Acute exacerbation of congestive heart failure (Acute) Elevated troponin (Acute) Intermittent chest pain (Acute) Hypoxia (Acute) Subjective: Patient was seen and examined today, earlier today she was on nasal cannula oxygen but later this afternoon when I examined her again she was off oxygen. Patient seems unaware that she has had a history of congestive heart failure even though she was admitted here in the past for congestive heart failure. Patient states that she takes gabapentin for nerve pain secondary to shingles, I have decided to reduce her gabapentin to see if this helps with her cognition. - Physical Exam Vitals/I&O's: Vital Signs Temp Pulse Resp BP Pulse Ox 98.1 F 102 H 16 96/77 97 06/07/20 14:50 06/07/20 15:10 06/07/20 14:50 06/07/20 14:50 06/07/20 14:50 Oxygen Flow Rate (L/min) 2 Oxygen Delivery Method Room Air Weight: 66.4 kg Body Mass Index (BMI) 27.1 Finger Stick Blood Glucose 132 Intake and Output for Last 24 Hours 06/05/20 06/06/20 06/07/20 23:59 23:59 23:59 Intake Total 240 / 240 960 / 960 Output Total 200 / 200 Balance 40 / 40 960 / 960 General: Alert, Oriented x3, Cooperative, No apparent distress, Well developed, Well nourished HEENT: Atraumatic, PERRLA, EOMI, Normocephalic Oral: Moist Mucosa Neck: Supple, No JVD, Negative Carotid Bruits Lungs: No rhonchi, No wheeze, Diminished Cardiovascular: Regular rate - Patient is in a paced rhythm, Regular Rhythm, Normal S1, Normal S2, No murmurs, PMI Normal, No rub noted Abdomen: Bowel Sounds Present, Soft, Non Tender Extremities: No edema, Capillary Refill Less than 3 Seconds Skin: No rashes, No breakdown Musculoskeletal: No Tenderness to Palpation of Joints or Extremities Neurological: Cranial nerves II-XII grossly intact, Neuro grossly intact, Sensory exam intact to light touch and pain, Coordination normal Psych/Mental Status: Normal Affect, Appropriate, Alert and oriented to time, place, person, mood and affect Microbiology Past 72 Hours 06/06/20 18:00 Mucosa - Nose SARS-CoV-2 Antigen (Rapid) - Final Laboratory Results 06/06/20 18:00: Sodium 139, Potassium 3.7, Chloride 107, Carbon Dioxide 24.0, Anion Gap 8, BUN 31 H, Creatinine 1.12 H, Estim Creat Clear Calc 36.44, Est GFR (MDRD) Af Amer 62, Est GFR (MDRD) Non-Af 51 L, BUN/Creatinine Ratio 27.7 H, Glucose 88, Calcium 8.6, Troponin I 0.055 H 06/06/20 18:00: WBC 7.3, RBC 3.55 L, Hgb 9.7 L, Hct 30.8 L, MCV 86.8, MCH 27.3, MCHC 31.5 L, RDW Std Deviation 52.5 H, RDW Coeff of Natalie 16.9 H, Plt Count 196, MPV 11.3, Immature Gran % (Auto) 0.700, Neut % (Auto) 76.5 H, Lymph % (Auto) 14.8 L, [place] % (Auto) 7.3, Eos % (Auto) 0.4, Baso % (Auto) 0.3, Absolute Neuts (auto) 5.6, Absolute Lymphs (auto) 1.08, Nucleated RBC % 0 06/06/20 18:00: B-Natriuretic Peptide 2343.9 H 06/06/20 18:00: Magnesium 2.0 06/06/20 18:10: Urine Color Yellow, Urine Clarity Sl. Cloudy, Urine pH 5.0, Ur Specific [place] 1.010, Urine Protein Negative, Urine Glucose (UA) Normal, Urine Ketones Negative, Urine Occult Blood Negative, Urine Nitrite Negative, Urine Bilirubin Negative, Urine Urobilinogen Normal, Ur Leukocyte Esterase Negative, Urine RBC 0 SEEN, Urine WBC 0 SEEN, Ur Squamous Epith Cells 0 SEEN, Amorphous Sediment 1+, Urine Bacteria 0 SEEN, Urine Mucus 0 SEEN 06/06/20 21:30: Procalcitonin 0.07 06/06/20 21:30: Troponin I 0.075 H 06/07/20 00:05: Troponin I 0.195 H 06/07/20 06:10: WBC 5.8, RBC 3.35 L, Hgb 9.2 L, Hct 28.9 L, MCV 86.3, MCH 27.5, MCHC 31.8 L, RDW Std Deviation 52.8 H, RDW Coeff of Natalie 17.1 H, Plt Count 170, MPV 10.8, Immature Gran % (Auto) 0.500, Neut % (Auto) 73.4 H, Lymph % (Auto) 15.3 L, [place] % (Auto) 9.3, Eos % (Auto) 1.2, Baso % (Auto) 0.3, Absolute Neuts (auto) 4.3, Absolute Lymphs (auto) 0.89, Nucleated RBC % 0 06/07/20 06:10: Sodium 141, Potassium 3.6, Chloride 111 H, Carbon Dioxide 23.0, Anion Gap 7, BUN 29 H, Creatinine 0.97, Estim Creat Clear Calc 42.07, Est GFR (MDRD) Af Amer 73, Est GFR (MDRD) Non-Af 60, BUN/Creatinine Ratio 30.0 H, Glucose 79, Calcium 8.1 L, Total Bilirubin 0.80, AST 19, ALT 19, Alkaline Phosphatase 85, Total Protein 5.8 L, Albumin 2.9 L, Globulin 2.9, Albumin/Globulin Ratio 1.0, Triglycerides 98, Cholesterol 103, LDL Cholesterol 49, VLDL Cholesterol 20, HDL Cholesterol 34 L, TSH 3.12, Free T4 1.31 Current Medications Acetaminophen (Acetaminophen 325 Mg Tablet) 650 mg PO Q6H PRN PRN PRN Reason: Pain Score 1-10/Temp > 100.7 F Albuterol Sulfate (Albuterol 2.5 Mg/3 Ml Vial.Neb.) 2.5 mg INHALATION Q2H PRN PRN PRN Reason: Dyspnea, wheezing Amiodarone HCl (Amiodarone 200 Mg Tablet) 200 mg PO BID JARED Stop: 06/08/20 22:01 Last Admin: 06/07/20 09:20 Dose: 200 mg Documented by: Amiodarone HCl (Amiodarone 200 Mg Tablet) 200 mg PO DAILY JARED Atorvastatin Calcium (Atorvastatin Calcium 40 Mg Tablet) 40 mg PO QHS JARED Last Admin: 06/06/20 21:21 Dose: 40 mg Documented by: Budesonide (Budesonide Respules 0.5 Mg/2 Ml Ampul.Neb.) 0.5 mg INHALATION BID.RT JARED Last Admin: 06/07/20 07:06 Dose: 0.5 mg Documented by: Clopidogrel Bisulfate (Clopidogrel Bisulfate 75 Mg Tablet) 75 mg PO QHS [facility] Last Admin: 06/06/20 22:42 Dose: Not Given Documented by: Dicyclomine HCl (Dicyclomine 10 Mg Capsule) 10 mg PO ACHS [facility] Last Admin: 06/07/20 17:29 Dose: 10 mg Documented by: Famotidine (Famotidine 20 Mg Tablet) 20 mg PO DAILY [facility] Last Admin: 06/07/20 09:18 Dose: 20 mg Documented by: Furosemide (Furosemide 40 Mg/4 Ml Vial) 40 mg IV BID@1000,1800 [facility] Last Admin: 06/07/20 17:29 Dose: 40 mg Documented by: Gabapentin (Gabapentin 100 Mg Capsule) 200 mg PO TIDCM [facility] Last Admin: 06/07/20 17:29 Dose: 200 mg Documented by: Isosorbide Mononitrate (Isosorbide Mononitrate 60 Mg Tablet) 60 mg PO DAILY [facility] Last Admin: 06/07/20 09:19 Dose: 60 mg Documented by: Magnesium Hydroxide (Magnesium Hydroxide 30 Ml Udc) 30 ml PO DAILY PRN PRN PRN Reason: Constipation Melatonin (Melatonin 3 Mg Tablet) 3 mg PO QHS PRN PRN PRN Reason: INSOMNIA Metoprolol Tartrate (Metoprolol Tartrate 100 Mg Tablet) 100 mg PO BID [facility] Last Admin: 06/07/20 09:19 Dose: 100 mg Documented by: Mirtazapine (Mirtazapine 15 Mg Tablet) 15 mg PO QHS [facility] Last Admin: 06/06/20 21:21 Dose: 15 mg Documented by: Morphine Sulfate (Morphine 2 Mg/Ml Syringe) 2 mg IV Q3H PRN PRN PRN Reason: Pain Score 6-10 Last Admin: 06/06/20 21:28 Dose: 2 mg Documented by: Nitroglycerin (Nitroglycerin (Inpatient Use) 0.4 Mg Tab.Subl) 0.4 mg SL Q5M PRN PRN Reason: CARDIAC/CHEST PAIN Ondansetron HCl (Ondansetron 4 Mg/2 Ml Vial) 4 mg IV Q8H PRN PRN PRN Reason: NAUSEA/VOMITING Potassium Chloride (Potassium Chloride Oral Tablet 20 Meq) 20 meq PO BID [facility] Last Admin: 06/07/20 09:18 Dose: 20 meq Documented by: Rivaroxaban (Rivaroxaban 20 Mg Tablet) 20 mg PO DAILY@1700 [facility] Last Admin: 06/07/20 17:30 Dose: 20 mg Documented by: Rotigotine (Rotigotine 2 Mg Patch) 2 mg TD DAILY [facility] Last Admin: 06/07/20 09:30 Dose: 2 mg Documented by: Senna/Docusate Sodium (Senna/Docusate Sodium 1 Tablet) 2 tablet PO BID PRN PRN PRN Reason: Constipation Sodium Chloride (0.9% Saline Lock 10 Ml Syringe) 10 - 40 ml IV UD PRN PRN Reason: SALINE FLUSH Last Admin: 06/07/20 09:18 Dose: 10 ml Documented by: Throat Lozenges (Benzocaine/Menthol 1 Lozenge) 1 lozenge MUCOUS MEM Q2H PRN PRN PRN Reason: SORE THROAT Medical Necessity - Tobacco Use Smoking Status: Former smoker Tobacco Use: Non-smoker Assessment/Plan All Active Problems (Last Reviewed 06/06/20 @ 15:[address] Jaime Treviño MD) Delirium due to another medical condition (Acute) Acute exacerbation of congestive heart failure (Acute) Elevated troponin (Acute) Intermittent chest pain (Acute) Hypoxia (Acute) Angina pectoris (Resolved) Atrial fibrillation with RVR (Resolved) Atypical chest pain (Resolved) Chest pain (Resolved) Chest pain (Resolved 01/01/20) Encephalopathy acute (Resolved) Hypokalemia (Resolved) Pneumonia (Resolved) Preop cardiovascular exam (Resolved) Unstable angina pectoris due to coronary arteriosclerosis (Resolved) #1 acute on chronic systolic congestive heart failure-continue IV Lasix, patient is improved over her status at admission #2 hypoxia secondary to #1-patient is currently on room air #3 altered mental status-patient's mental status has improved since her admission, she is a poor informant however, I have taken liberty's to reduce the patient's gabapentin, she will be further observed #4 coronary artery disease #5 peripheral vascular disease #6 chronic obstructive pulmonary disease #7 paroxysmal atrial fibrillation-status post pacemaker implantation March 27 2020 #8 intermediate troponin elevation-I do not feel this is significant #9 nonischemic cardiomyopathy #10 hyperlipidemia #11 essential hypertension Inpatient E&M: 40276 Subs Hosp L2
[2020-06-07] MEDS: Atorvastatin Calcium 40 MG Tablet PO (21:45)
[2020-06-07] MEDS: Mirtazapine 15 MG Tablet PO (21:45)
[2020-06-07] MEDS: Clopidogrel Bisulfate 75 MG Tablet PO (21:45)
[2020-06-07] MEDS: Morphine 2 MG/ML Syringe IV (21:46)
[2020-06-08] VITALS (7 sets, daily range): BP systolic 106–125; BP diastolic 56–63; PULSE 99–101; RESP 12–20; TEMP 36.4–37.1; O2SAT 95–100
[2020-06-08] MEDS: Dicyclomine 10 MG Capsule PO ×2 (06:38→11:35)
[2020-06-08 06:56] LABS: Anion Gap 6 (5-15); BUN 28 mg/dL (7-18); BUN/Creat Ratio 27.7 RATIO (10-20); Calcium,Total 8.2 mg/dL (8.5-10.1); Chloride 108 mmol/L (98-107); Creatinine, Serum 1.01 mg/dL (0.55-1.02); EST Glomerular Filtration Rate 57 mL/min (>60); Est Glom Filt Rate - Afr Amer 69 mL/min (>60); Estimated Creatinine Clearance 40.41 ml/min; Glucose 92 mg/dL (74-106); Potassium 3.8 mmol/L (3.5-5.1); Sodium Level 140 mmol/L (136-145)
[2020-06-08] MEDS: Budesonide Respules 0.5 MG/2 ML AMPUL.NEB. INHALATION (07:06)
[2020-06-08] MEDS: Famotidine 20 MG Tablet PO (09:05)
[2020-06-08] MEDS: Amiodarone 200 MG Tablet PO (09:06)
[2020-06-08] MEDS: Isosorbide Mononitrate 60 MG Tablet PO (09:06)
[2020-06-08] MEDS: Metoprolol Tartrate 100 MG Tablet PO (09:06)
[2020-06-08] MEDS: Gabapentin 100 MG Capsule 200 MG PO ×2 (09:06→11:34)
[2020-06-08] MEDS: Furosemide 40 MG Tablet PO (09:06)
[2020-06-08] MEDS: Potassium Chloride Oral Tablet 20 MEQ PO (09:06)
--- NOTE | 2020-06-08 13:04 | PCM.DC ---
- Discharge Diagnoses Current Active Problems: Current Active and Chronic Problems (Last Reviewed 06/06/20 @ 15:[address] Jaime Treviño MD) Delirium due to another medical condition (Acute) Acute exacerbation of congestive heart failure (Acute) Elevated troponin (Acute) Intermittent chest pain (Acute) Hypoxia (Acute) Non-ischemic cardiomyopathy (Chronic) Persistent atrial fibrillation (Chronic) History of permanent cardiac pacemaker placement (Chronic 03/27/20) Tachy-erica syndrome (Chronic) 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) Atherosclerotic heart disease of [place] coronary artery without angina pectoris (Chronic) History of coronary artery stent placement (Chronic 03/18/19) [id number] LCx and OM 03/20/99; PCI-CARMEN of distal RCA and POBA-ostium of posterolateral branch for stent jailing; PCI-CARMEN to RCA and PDA 02/20; PCI-CARMEN to ISR-RCA 04/21/2015; [id number] RPDA w/ 2.5 x 24 mm Promus Stent and Distal RCA w/ 3.0 x 16 mm Promus Stent and POBA Ostial RPLB 03/18/2019 Paroxysmal atrial fibrillation (Chronic) Abdominal aortic aneurysm (AAA) (Chronic) Redemonstration of infrarenal abdominal aortic aneurysm measuring up to 4.4 cm x 4.4 cm essentially similar to previous exam. 01/21/2019 Essential (primary) hypertension (Chronic) HLD (hyperlipidemia) (Chronic) Peripheral vascular occlusive disease (Chronic) Bilateral SFA stents. Occluded Right SFA and angioplasty of in-stent stenosis of her left SFA. COPD (chronic obstructive pulmonary disease) (Chronic) BELLE (obstructive sleep apnea) (Chronic) Bipap 17/13 cm of H2O Nicotine dependence (Chronic) You will use the following diet at home:: No restrictions Your food should be the consistency of: Regular Your liquids should be the consistency of: Regular/Thin Discharge Activity: Return to Normal Activity Weight Bearing Status: Full weight bearing Allergies/Adverse Reactions: Allergies lisinopril Allergy (Verified 06/06/20 17:15) tongue swelling Medications to take at Discharge albuterol sulfate 90 mcg/actuation aerosol inhaler 1 - 2 puff INHALATION Q4H PRN PRN #1 inhaler 06/16/18 atorvastatin 40 mg tablet 40 mg PO QHS tab 07/09/19 dicyclomine 10 mg capsule 10 mg PO 4X/DAY 07/09/19 famotidine 20 mg tablet 20 mg PO DAILY 07/09/19 Clopidogrel Bisulfate [Plavix] 75 mg PO QHS 08/30/19 Fluticasone Propion/Salmeterol [Wixela 500-50 Inhub] 1 each IH BID 04/22/20 Potassium Chloride [K-Tab ER] 20 meq PO BID 04/22/20 mirtazapine 15 mg tablet 15 mg PO QHS 05/26/20 Isosorbide Mononitrate [Isosorbide Mononitrate ER] 60 mg PO DAILY 06/06/20 Metoprolol Tartrate [Lopressor (beta declan)] 100 mg PO BID 06/06/20 Rivaroxaban [Xarelto] 20 mg PO DAILY@1700 06/06/20 Rotigotine [Neupro] 2 mg TOPICAL DAILY 06/06/20 Amiodarone HCl [Cordarone] 200 mg PO DAILY tablet 06/08/20 Furosemide [Lasix] 40 mg PO BID@1000,1800 #60 tablet 06/08/20 Gabapentin [Neurontin] 200 mg PO TIDCM #180 capsule 06/08/20 The following prescriptions were given: Furosemide [Lasix] 40 mg PO BID@1000,1800 #60 tablet Transmission Status: Pending to [facility]30 Gabapentin [Neurontin] 200 mg PO TIDCM #180 capsule Transmission Status: Pending to [facility] Primary Care Physician: Feng Hayes MD [Primary Care Provider] - Please follow up with your Primary Care Physician in: in two weeks Test Results: Test results from this visit will be discussed in further detail at your follow-up appointment, if applicable. Please Follow Up With: Jaime Treviño MD When: in 4 weeks
--- NOTE | 2020-06-09 14:23 | CASEMGMT ---
Addendum entered by Amanda Fuentes 06/09/20 14:27: EZEKIEL PALMER spoke w/hat sprayer w/Dr Hayes re: appt that was scheduled for tomorrow. Per hat sprayer, someone called in and re-scheduled that appt for 06/27 @ 3:40 PM. Original Note: EZEKIEL PALMER Discharge Follow-Up Phone Call. Lace: 14 Strata: 4 Discharge Date: 06/08/20 Adm Dx: CHF exac, hypoxia Attempted discharge f/u phone call. No answer and VM box is full. Unable to leave for pt to return call. Rayna CRANDALLN EZEKIEL CM
--- NOTE | 2020-06-09 16:53 | DS.PCM_ITS ---
Discharge Date and Diagnosis - Problem List Patient Problems: Active and Suspected Problems (Last Reviewed 06/06/20 @ 15:[address] Jaime Treviño MD) Delirium due to another medical condition (Acute) Acute exacerbation of congestive heart failure (Acute) Elevated troponin (Acute) Intermittent chest pain (Acute) Hypoxia (Acute) Date of Admission: 06/06/20 Date of Discharge: 06/08/20 - Primary Discharge Diagnosis Acute Problems: Active Problems (Last Reviewed 06/06/20 @ 15:[address] Jaime Treviño MD) #1 acute on chronic systolic congestive heart failure #2 hypoxia secondary to #1 #3 altered mental status/encephalopathy secondary to medication reaction (gabapentin) #4 coronary artery disease #5 peripheral vascular disease #6 chronic obstructive pulmonary disease #7 paroxysmal atrial fibrillation-status post pacemaker implantation March 27 2020 #8 intermediate troponin elevation-not significant #9 nonischemic cardiomyopathy #10 hyperlipidemia #11 essential hypertension #12 chronic kidney disease stage IIIa-etiology unclear - Secondary Discharge Diagnosis Chronic Problems: Chronic Problems (Last Reviewed 06/06/20 @ 15:[address] Jaime Treviño MD) Atrial fibrillation with RVR (Chronic) Non-ischemic cardiomyopathy (Chronic) Persistent atrial fibrillation (Chronic) History of permanent cardiac pacemaker placement (Chronic 03/27/20) Tachy-erica syndrome (Chronic) Sinus pause (Chronic) 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) Atherosclerotic heart disease of [place] coronary artery without angina pectoris (Chronic) Non-STEMI (non-ST elevated myocardial infarction) (Chronic 03/19/19) 04/21/2015, 03/19/2019 History of coronary artery stent placement (Chronic 03/18/19) [id number] LCx and OM 03/20/99; PCI-CARMEN of distal RCA and POBA-ostium of posterolateral branch for stent jailing; PCI-CARMEN to RCA and PDA 02/20; PCI- CARMEN to ISR-RCA 04/21/2015; [id number] RPDA w/ 2.5 x 24 mm Promus Stent and Distal RCA w/ 3.0 x 16 mm Promus Stent and POBA Ostial RPLB 03/18/2019 Paroxysmal atrial fibrillation (Chronic) Abdominal aortic aneurysm (AAA) (Chronic) Redemonstration of infrarenal abdominal aortic aneurysm measuring up to 4.4 cm x 4.4 cm essentially similar to previous exam. 01/21/2019 Essential (primary) hypertension (Chronic) HLD (hyperlipidemia) (Chronic) Peripheral vascular occlusive disease (Chronic) Bilateral SFA stents. Occluded Right SFA and angioplasty of in-stent stenosis of her left SFA. COPD (chronic obstructive pulmonary disease) (Chronic) BELLE (obstructive sleep apnea) (Chronic) Bipap 17/13 cm of H2O Smoking greater than 30 pack years (Chronic) Low-dose CT lung screening due November 2020 Nicotine dependence (Chronic) Hospital Course and Treatment Operations: None Procedures: None Summary of Care Provided: The patient is a 70 year old F seen in the emergency room at [facility] with complaints of dyspnea on exertion, intermittent chest heaviness, and visual and auditory hallucinations at home. Work-up in the emergency room included an EKG which showed a sinus rhythm with intermittent ventricular pacing, chest x-ray was consistent with congestive heart failure, Covid antigen test was obtained and this was negative. Troponin was slightly elevated. Patient was also mildly hypoxic in the emergency room with an 88% pulse ox on room air. Patient was admitted to PCU for acute on chronic systolic congestive heart failure and encephalopathy, her medications were adjusted and her gabapentin was decreased, this examiner felt that the gabapentin could have been causing problems with mentation for the patient. Patient was placed on IV diuretics and she was weaned off oxygen. On 06/08/2020, patient was seen and examined: On examination she appeared in good health and spirits, she does not appear to be in any distress. Vital signs as documented. Skin warm and dry and without overt rashes. Neck without JVD, thyroid appears normal, trachea is midline, neck is supple. Lungs clear, normal air movement was noted. Heart exam notable for regular rhythm, normal sounds and absence of murmurs, rubs or gallops. Abdomen unremarkable and without evidence of organomegaly, masses, or abdominal aortic enlargement, bowel sounds are present in all 4 quadrants, no abdominal tenderness was noted. Extremities nonedematous, no cyanosis was noted, no clubbing was noted. Neuro: Cranial nerves II through XII are grossly intact, no focal motor deficits were noted, sensation to light touch and pinprick is intact, motor exam 5/5 throughout. Psych: Patient is alert and oriented x3, she does not appear anxious or depressed, she does not appear agitated. Patient was discharged in stable condition on 06/08/2020. Patient Problems: Active and Suspected Problems (Last Reviewed 06/06/20 @ 15:[address] Jaime Treviño MD) Delirium due to another medical condition (Acute) Acute exacerbation of congestive heart failure (Acute) Elevated troponin (Acute) Intermittent chest pain (Acute) Hypoxia (Acute) - Physical Exam Vitals/I&O's: Vital Signs Temp Pulse Resp BP Pulse Ox 97.5 F L 100 18 125/63 H 95 06/08/20 14:38 06/08/20 14:38 06/08/20 14:38 06/08/20 14:38 06/08/20 14:38 Oxygen Flow Rate (L/min) 2 Oxygen Delivery Method Room Air Weight: 65.8 kg Body Mass Index (BMI) 27.1 Finger Stick Blood Glucose 132 Intake and Output for Last 24 Hours 06/07/20 06/08/20 06/09/20 23:59 23:59 23:59 Intake Total 960 / 1210 610 / 610 Balance 960 / 1210 610 / 610 Microbiology Past 72 Hours 06/06/20 18:00 Mucosa - Nose SARS-CoV-2 Antigen (Rapid) - Final Discharge Activity: Return to Normal Activity Weight Bearing Status: Full weight bearing Home Medications: Medications to take at Discharge albuterol sulfate 90 mcg/actuation aerosol inhaler 1 - 2 puff INHALATION Q4H PRN PRN #1 inhaler 06/16/18 atorvastatin 40 mg tablet 40 mg PO QHS tab 07/09/19 dicyclomine 10 mg capsule 10 mg PO 4X/DAY 07/09/19 famotidine 20 mg tablet 20 mg PO DAILY 07/09/19 Clopidogrel Bisulfate [Plavix] 75 mg PO QHS 08/30/19 Fluticasone Propion/Salmeterol [Wixela 500-50 Inhub] 1 each IH BID 04/22/20 Potassium Chloride [K-Tab ER] 20 meq PO BID 04/22/20 mirtazapine 15 mg tablet 15 mg PO QHS 05/26/20 Isosorbide Mononitrate [Isosorbide Mononitrate ER] 60 mg PO DAILY 06/06/20 Metoprolol Tartrate [Lopressor (beta declan)] 100 mg PO BID 06/06/20 Rivaroxaban [Xarelto] 20 mg PO DAILY@1700 06/06/20 Rotigotine [Neupro] 2 mg TOPICAL DAILY 06/06/20 Amiodarone HCl [Cordarone] 200 mg PO DAILY tablet 06/08/20 Furosemide [Lasix] 40 mg PO BID@1000,1800 #60 tablet 06/08/20 Gabapentin [Neurontin] 200 mg PO TIDCM #180 capsule 06/08/20 Following Prescriptions Were Given to Patient: Furosemide [Lasix] 40 mg PO BID@1000,1800 #60 tablet Transmission Status: Received by [facility] Gabapentin [Neurontin] 200 mg PO TIDCM #180 capsule Transmission Status: Received by [facility] Primary Care Physician: Feng Hayes MD [Primary Care Provider] - Please follow up with your Primary Care Physician in: in two weeks Please Follow Up With: Jaime Treviño MD When: in 4 weeks Please Follow Up With: Feng Hayes MD When: 2 WEEKS Disposition: Home Minutes spent on discharge:: 32 Patient Condition:: Stable Medical Necessity - Tobacco Use Smoking Status: Former smoker Tobacco Use: Non-smoker Meaningful Use Info Meaningful Use Diagnoses (Choose all that apply): CHF - CHF ARTURO/ARB ordered at discharge?: Yes Documented LVEF (%): 40 Inpatient E&M: 75384 Disch Hosp
== END 2020-06-08 14:34 | disposition home or self-care (01) | DRG 291 ==
LOC: ED 19:52 → PCU 06-07 07:01
PROVIDERS: Admitting Provider Family Medicine; Emergency Provider Emergency Medicine; PCP Family Medicine; Visit Provider Internal Medicine
DX: I13.0 Hypertensive heart and chronic kidney disease with heart failure and stage 1 through stage 4 chronic kidney disease, or unspecified chronic kidney disease (principal); G92 Toxic encephalopathy; I50.43 Acute on chronic combined systolic (congestive) and diastolic (congestive) heart failure; F05 Delirium due to known physiological condition; I25.10 Atherosclerotic heart disease of native coronary artery without angina pectoris; I42.8 Other cardiomyopathies; N18.31 Chronic kidney disease, stage 3a; I73.9 Peripheral vascular disease, unspecified; J44.9 Chronic obstructive pulmonary disease, unspecified; E78.5 Hyperlipidemia, unspecified; R79.89 Other specified abnormal findings of blood chemistry; R09.02 Hypoxemia; G47.33 Obstructive sleep apnea (adult) (pediatric); T42.6X5A Adverse effect of other antiepileptic and sedative-hypnotic drugs, initial encounter; Y92.9 Unspecified place or not applicable; I44.0 Atrioventricular block, first degree; F32.9 Major depressive disorder, single episode, unspecified; I25.2 Old myocardial infarction; D64.9 Anemia, unspecified; I48.19 Other persistent atrial fibrillation; I45.5 Other specified heart block; K58.9 Irritable bowel syndrome, unspecified; K21.9 Gastro-esophageal reflux disease without esophagitis; F41.8 Other specified anxiety disorders; Z79.01 Long term (current) use of anticoagulants; Z79.899 Other long term (current) drug therapy; Z79.02 Long term (current) use of antithrombotics/antiplatelets; Z95.0 Presence of cardiac pacemaker; Z95.5 Presence of coronary angioplasty implant and graft; Z86.19 Personal history of other infectious and parasitic diseases; Z86.16 Personal history of COVID-19; Z87.01 Personal history of pneumonia (recurrent); Z87.891 Personal history of nicotine dependence
CPT/HCPCS: 36415; 70450; 71045; 80048; 80053; 80061; 81001; 83735; 83880; 84145; 84439; 84443; 84484; 85025; 87426; 93005; 94002; 94003; 94640; 94762; 96374; 96375; 96376; 97161; 97166; 97802; 99218; 99251; 99285; P9612; A4216; G0378; G0463; J1940

== ENCOUNTER → 2020-07-06 14:13 | Outpatient (CLI) | payer MEDICARE, MEDICAID, SELFPAY ==
[2019-07-16 09:26] VITALS: BMI 29.5
[2020-07-06 12:58] VITALS: BMI 27.6
[2020-07-06 15:50] LABS: Absolute Lymphocyte Count 1.27 X10^3/uL (0.83-4.51); Absolute Neutrophil Count 5.9 X10^3/uL (2.0-7.7); Basophil# 0.06 X10^3/uL; Basophil% 0.7 % (0-1); Eosinophil# 0.09 X10^3/uL; Eosinophils% 1.1 % (0-5); Hematocrit 32.9 % (37-47); Lymphocyte # 1.27 X10^3/ul (0.83-4.51); Lymphocyte % 15.5 % (19-41); Mean Corp Hgb Conc 30.4 g/dL (32-36); Mean Corpuscular Volume 85.5 fL (81-99); Mean Platelet Vol. 10.8 fl (6.2-12.0); Monocyte# 0.81 X10^3/uL; Monocyte% 9.9 % (0-10); NRBC Flagged by Analyzer 0 % (0-5); Neutrophil # 5.93 X10^3/uL (2.7-7.7); Neutrophil % 72.3 % (47-70); Platelet Count 389 K/mm3 (150-450); RBC Distribution Width CV 15.7 % (11.6-14.6); RBC Distribution Width SD 48.5 fl (35.1-43.9); Red Blood Count 3.85 M/mm3 (4.2-5.4); White Blood Count 8.2 K/mm3 (4.4-11.0)
[2020-07-06 16:11] LABS: Anion Gap 6 (5-15); BUN 42 mg/dL (7-18); BUN/Creat Ratio 22.2 RATIO (10-20); Calcium,Total 8.7 mg/dL (8.5-10.1); Chloride 104 mmol/L (98-107); Creatinine, Serum 1.89 mg/dL (0.55-1.02); EST Glomerular Filtration Rate 28 mL/min (>60); Est Glom Filt Rate - Afr Amer 34 mL/min (>60); Glucose 95 mg/dL (74-106); Potassium 3.8 mmol/L (3.5-5.1); Sodium Level 140 mmol/L (136-145)
== END ==
PROVIDERS: PCP Family Medicine; Visit Provider Physician Assistant Medical
DX: I48.19 Other persistent atrial fibrillation (principal); I25.10 Atherosclerotic heart disease of native coronary artery without angina pectoris
CPT/HCPCS: 36415; 80048; 85025

== ENCOUNTER 2020-07-18 10:26 | Day surgery (SDC) | payer MEDICARE, MEDICAID, SELFPAY ==
[2019-07-16 09:26] VITALS: BMI 29.5
[2020-06-15 11:07] VITALS: BMI 27.1
[2020-07-06 12:58] VITALS: BMI 27.6
[2020-07-17 08:08] VITALS: BMI 27.6
--- NOTE | 2020-07-18 09:34 | HP_ITS ---
HPI HPI History of Present Illness Surgical H&P: Yes Details: This is a 71-year-old female that presents here today for a hospital follow-up. Patient was admitted on June 07, 2019 with acute on chronic congestive heart failure, encephalopathy felt to be related to gabapentin. Troponin was mildly elevated. She has a history of paroxysmal atrial fibrillation, coronary artery disease with angioplasty and stenting of her RCA and angioplasty of her first obtuse marginal and hyperlipidemia. Her last percutaneous intervention was in 2015. In March 2019 she underwent stenting of the posterior descending as well as the right posterior lateral. She also has a history of hypertension. She also has a history of peripheral arterial disease and apparently scheduled to undergo surgery on her right superficial femoral artery. She did have a pacemaker placed for tachybradycardia syndrome. She underwent a DC cardioversion on 19 May. Unfortunately this did not hold. We did add amiodarone and digoxin was discontinued. Plan was to proceed with cardioversion at a later date. PPM interrogations demonstrate paroxysmal atrial fibrillation/flutter with RVR. AT AF burden was 61% since May 19, 2020.We will attempt to DC cardioversion at a later date. This was initially scheduled however she needed to cancel due to her own personal schedule. This is in the process of being rescheduled. She is having episodes that do not necessarily correlate with what she is doing. Sometimes at rest or with activity- she finds that her breathing is fast and it is hard breath. She finds that she can not sleep at night. She is fatigued and still having issues with hallucinations. She does occasionally feel flushed. She does feel her heart racing. She is fatigued. She has fallen several times. She has not hit her head since she has been home from the hospital She tells me she does not have blood in her urine or stools. Intake Vital Signs 07/06/20 Pulse Oximetry (%) 90 07/06/20 Oxygen Delivery Method room air 07/06/20 Height 5 ft 2 in 07/06/20 Weight: 151 lb 07/06/20 BMI 27.6 07/06/20 BP 118/62 07/06/20 Blood Pressure Location Lt brachial 07/06/20 Position Sitting 07/06/20 Respiration 18 07/06/20 Pulse 96 07/06/20 Pulse Source Auscultation 07/06/20 Oxygen Delivery Method nasal canula 07/06/20 Oxygen Flow Rate (L/min) 2 07/06/20 Comment Supposed to wear when up and about. Not on at this appointment. 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 Accompanied by: Grandson Is patient in pain?: No Allergies lisinopril Allergy (Verified 07/06/20 13:04) tongue swelling Medications atorvastatin 40 mg tablet 40 mg PO QHS tablet 07/09/19 [History Confirmed 07/06/20] dicyclomine 10 mg capsule 10 mg PO 4X/DAY 07/09/19 [History Confirmed 07/06/20] famotidine 20 mg tablet 20 mg PO DAILY 07/09/19 [History Confirmed 07/06/20] Clopidogrel Bisulfate [Plavix] 75 mg PO QHS 08/30/19 [History Confirmed 07/06/20] Potassium Chloride [K-Tab ER] 20 meq PO BID 04/22/20 [History Confirmed 07/06/20] Isosorbide Mononitrate [Isosorbide Mononitrate ER] 60 mg PO DAILY 06/06/20 [History Confirmed 07/06/20] Metoprolol Tartrate [Lopressor (beta declan)] 100 mg PO BID 06/06/20 [History Confirmed 07/06/20] Rivaroxaban [Xarelto] 20 mg PO DAILY@1700 06/06/20 [History Confirmed 07/06/20] Rotigotine [Neupro] 2 mg TOPICAL DAILY 06/06/20 [History Confirmed 07/06/20] Gabapentin [Neurontin] 200 mg PO TIDCM #180 capsule 06/08/20 [Rx Confirmed 07/06/20] mirtazapine 30 mg tablet 30 mg PO QHS 06/22/20 [History Confirmed 07/06/20] albuterol sulfate 90 mcg/actuation aerosol inhaler 1 - 2 puff INHALATION Q4H PRN PRN #1 inhaler 07/06/20 [Rx] amiodarone 200 mg tablet 200 mg PO DAILY tablet 07/06/20 [History Confirmed 07/07/20] fluticasone 500 mcg-salmeterol 50 mcg/dose blistr powdr for inhalation 1 inh INHALATION BID #60 each 07/06/20 [Rx] furosemide 40 mg tablet 40 mg PO DAILY #0 tablet 07/06/20 [Rx Confirmed 07/07/20] Ejection fraction %: 40 to 44 [facility] Medical History Atrial fibrillation with RVR (Chronic) Non-ischemic cardiomyopathy (Chronic) Persistent atrial fibrillation (Chronic) Tachy-erica syndrome (Chronic) Sinus pause (Chronic) 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) Atherosclerotic heart disease of [place] coronary artery without angina pectoris (Chronic) Non-STEMI (non-ST elevated myocardial infarction) (Chronic 03/19/19) Paroxysmal atrial fibrillation (Chronic) Abdominal aortic aneurysm (AAA) (Chronic) Essential (primary) hypertension (Chronic) HLD (hyperlipidemia) (Chronic) Peripheral vascular occlusive disease (Chronic) COPD (chronic obstructive pulmonary disease) (Chronic) BELLE (obstructive sleep apnea) (Chronic) Smoking greater than 30 pack years (Chronic) Nicotine dependence (Chronic) Anxiety and depression (Chronic) Claudication in peripheral vascular disease (Chronic) Emphysema of lung (Chronic) IBS (irritable bowel syndrome) (Chronic) Obesity (Chronic) Angina pectoris (Resolved) Atrial fibrillation with RVR (Resolved) COVID-19 (Resolved 01/01/20) Hypokalemia (Resolved) Pneumonia due to 2019 novel coronavirus (Resolved 01/01/20) Sepsis (Resolved 01/01/20) Unstable angina pectoris due to coronary arteriosclerosis (Resolved) Acute on chronic diastolic (congestive) heart failure (Inactive) Dyspnea on exertion (Inactive) PAD (peripheral artery disease) (Inactive) Wheezing (Inactive) Surgical History History of permanent cardiac pacemaker placement (Chronic 03/27/20) History of coronary artery stent placement (Chronic 03/18/19) History of angioplasty of peripheral vessel (Resolved) History of bilateral leg stents (Resolved) History of bunionectomy of right great toe (Resolved) History of cardioversion (Resolved 05/19/20) History of colonoscopy (Resolved 06/2018) History of hysterectomy (Resolved) History of left heart catheterization (Resolved 11/25/19) History of tonsillectomy (Resolved) Hx of APLL (Resolved) Hx of hysterectomy (Resolved) Status post left foot surgery (Resolved) Family History Father Heart disease Hypertension Seizures Sister CVA (cerebral vascular accident) Hypertension Other Family history of hypertension Social History (Updated 07/10/20 @ 11:58 by Evelyn QUIROZ PA) Smoking Status: Former smoker how long ago did patient quit smokin months ago alcohol intake: never substance use type: does not use caffeine: No ROS Const Const: Positive for fatigue, weakness and frequent falls; negative for headache(s), difficulty sleeping or excessive sweating Eyes Eyes: Negative for loss of peripheral vision, transient loss of vision, blurry vision, double vision or tunnel vision ENT ENT: Positive for balance problems; negative for headache(s), dizziness or Nosebleed/epistaxis Cardio Chest Pain: Yes Frequency: more than once a day Character: other (throbbing) Onset: exercise, positional Location: other (Entire chest and shoulders) Duration: minutes Palpitations: Yes Edema: None Muscle aches with walking: None Resp Respiratory: Positive for SOB with activity, SOB at rest and Cough; negative for SOB orthopnea\SOB lying down or paroxysmal nocturnal dyspnea GI GI: Negative nausea, vomiting, heartburn or black,tarry stools : Negative for hematuria Musc Musc: Positive for muscle weakness, joint pain and balance problems; negative for muscle aches/ myalgia Skin Skin: Negative non-healing lesions, rash or unusual bruising Neuro Neuro: Positive for frequent falls, weakness and confusion; negative for dizziness, lightheadedness, near syncope, syncope, headache(s), blurry vision, double vision or lack of coordination Igor Hematologic/Lymphatic: Negative for easy bleeding or easy bruising Endo Endo: Positive for fatigue; negative for excessive sweating or increased thirst/drinking Psych Psych: Negative for anxiety or depression Allergy Allergy/Immunology: Negative for hives, Negative for rash Assessment & Plan 1. Persistent atrial fibrillation I48.19 Plan Patient's atrial fibrillation is persistent. We'll have her decrease her amiodarone to 200 mg a day. She will continue with her current dose of metoprolol. She is anticoagulated with a factor Xa inhibitor. She is scheduled for a cardioversion in the near future. Instructions were given to her. Patient symptoms of shortness of breath and palpitations could be related to her atrial fibrillation however they could also be related to anxiety. Patient Instructions I am decreasing your amiodarone to once a day Orders Orders: 12 Lead EKG performed by [facility] 07/06/20 Basic Metabolic Profile (BMP) 07/06/20 CBC W/Diff, Automated 07/06/20 2. Atherosclerosis of [place] coronary artery without angina pectoris, unspecified whether [place] or transplanted heart I25.10 Plan Stable, from a cardiac standpoint patient does not have any symptoms of angina. We recommend that they continue with current aggressive medical management and risk factor modification. Orders Orders: CBC W/Diff, Automated 07/06/20 3. Essential hypertension I10 Plan Blood pressure is well controlled on current medications, we do not recommend any changes at this time. 4. Hyperlipidemia, unspecified hyperlipidemia type E78.5 Plan Patient will continue with moderate intensity statin. 5. BELLE (obstructive sleep apnea) G47.33 Bipap 9/5 cm of H2O Plan Patient does appear fatigued in the office. She has not been compliant with using her CPAP. Feel that her fatigue is a large portion of her symptoms. Patient is not sleeping well did advise that she follow-up with her PCP for this. 6. Peripheral vascular occlusive disease I73.9 Bilateral SFA stents. Occluded Right SFA and angioplasty of in-stent stenosis of her left SFA. Plan Patient will continue with medications. She is not symptomatic. 7. History of permanent cardiac pacemaker placement Z95.0 Plan Pacemaker is functioning appropriately. We will continue to monitor at routine scheduled pacemaker interrogations. 8. Non-ischemic cardiomyopathy I42.8 Plan Patient currently does not have any symptoms of congestive heart failure. She will continue with her metoprolol and furosemide. We'll continue to monitor closely. 9. Anemia D64.9 Plan Patient does have a history of anemia. Would like to obtain blood counts for today. Patient Instructions Please obtain labs today Plan Detail Other Orders Orders: 12 Lead EKG performed by [facility] 07/06/20 I48.0 Other Medications Changed: From: amiodarone 200 mg PO twice a day for 2 weeks then once daily; 200 mg PO BID To: amiodarone 200 mg PO DAILY From: furosemide 40 mg PO BID@1000,1800 60 tabs 0RF To: furosemide 40 mg PO DAILY Follow Up 3 Months (MMM) Coding Level of Care Code Off vis,est,level 4 Diagnoses Persistent atrial fibrillation I48.19 Atherosclerosis of [place] coronary artery without angina pectoris, unspecified whether [place] or transplanted heart I25.10 ??[place] vs. transplanted heart: unspecified whether [place] or transplanted heart Essential hypertension I10 Hyperlipidemia, unspecified hyperlipidemia type E78.5 ??Hyperlipidemia type: unspecified BELLE (obstructive sleep apnea) G47.33 Peripheral vascular occlusive disease I73.9 History of permanent cardiac pacemaker placement Z95.0 Non-ischemic cardiomyopathy I42.8 Anemia D64.9 Coding Level of Care Code Off vis,est,level 4 Diagnoses Persistent atrial fibrillation I48.19 Atherosclerosis of [place] coronary artery without angina pectoris, unspecified whether [place] or transplanted heart I25.10 ??[place] vs. transplanted heart: unspecified whether [place] or transplanted heart Essential hypertension I10 Hyperlipidemia, unspecified hyperlipidemia type E78.5 ??Hyperlipidemia type: unspecified BELLE (obstructive sleep apnea) G47.33 Peripheral vascular occlusive disease I73.9 History of permanent cardiac pacemaker placement Z95.0 Non-ischemic cardiomyopathy I42.8 Anemia D64.9 Supplemental Info Supplemental Information Echocardiogram 03/2019: Normal LV size. Left ventricular systolic function is lower limits of normal. The estimated ejection fraction is 50 %. Unable to assess diastolic dysfunction due to arrhythmia. Moderate (2+) eccentric mitral valve insufficiency. The left atrium is moderately enlarged. Mild (1+) eccentric aortic valve insufficiency. Compared to the previous the wall motion abnormality is new CORONARY ANGIOGRAPHY 11/2019 DOMINANCE: Right Dominant LEFT HEART ASSESSMENT Left Ventricular Ejection Fraction: by LV Gram 60 % Normal LV wall motion Normal Left Ventricular systolic function LEFT MAIN: Mild calcification, No significant disease noted LEFT ANTERIOR DESCENDING ARTERY: Mild luminal irregularities DIAGONAL 2: Ostial - 60 % Stenosis CIRCUMFLEX ARTERY: PROX CIRC: subtotatly occluded RIGHT CORONARY ARTERY: MID RCA: Previously placed stent is patent DISTAL RCA: Previously placed stent is patent RT PLV: 60 % Stenosis COLLATERAL FLOW: Collateral flow from Left to Left Labs LDL Cholesterol 49 mg/dL (0-130) 06/07/20 HDL Cholesterol 34 mg/dL (40-) L 06/07/20 Triglycerides 98 mg/dL (-199) 06/07/20 VLDL Cholesterol 20 mg/dL (5-40) 06/07/20 Diagnostics Electrocardiogram 07/06/20 Pacemaker Check 06/19/20 Chest X-Ray 06/07/20 COVID (Procedure Consent) Procedure Criteria Procedure Criteria: Yes Elective The surgeon/proceduralist and patient have discussed in detail the risk of exposure to and/or potential harm posed by the COVID-19 virus with having a surgery/procedure at this time versus the risk of? delaying the surgery/procedure. It is not possible to know either the risk of delaying the surgery or procedure or chance of getting an infection with perfect accuracy, but a joint decision was made between the patient and the surgeon/proceduralist ?to proceed at this time with the scheduled surgery/procedure as indicated on the consent form.
--- NOTE | 2020-07-18 12:27 | OP.PCM_ITS ---
Operative Report Date of Procedure: 07/18/20 DC cardio version. 70-year-old lady with a history of persistent atrial fibrillation with mildly reduced left ventricular systolic function and coronary artery disease. Patient has been on anticoagulation for minimum of 4 weeks. Patient remains symptomatic and was brought to the cardiac catheterization lab. Patient was seen by Dr. Medina of the critical care division. Informed consent was obtained. Anterior- posterior pads were applied. The patient was administered 4 mg of intravenous etomidate and 200 J of synchronized DC cardioversion energy was applied with prompt reversal to AV sequentially paced rhythm. Conclusion: Successful DC cardioversion to AV sequentially paced. Continue current medications. Follow-up per office protocol.
--- NOTE | 2020-07-18 12:48 | PRO.PCM_ITS ---
Procedure Report Date of Procedure: 07/18/20 CONSCIOUS SEDATION REPORT DATE OF SERVICE: July 18, 2020 BRIEF HISTORY OF PRESENT ILLNESS: The patient is a 70-year-old female who presented to [facility] for an elective outpatient cardioversion due to underlying atrial fibrillation. The patient did undergo a prior cardioversion and May 2020, during which time, 4 mg of etomidate was utilized. The patient is systemically anticoagulated on Xarelto. Her last surface echocardiogram revealed an ejection fraction of appro ximately 40%. She does have a known history of COPD and obstructive sleep apnea, for which she reports compliance with the use of nocturnal Pap therapy. PHYSICAL EXAMINATION: VITAL SIGNS: Reviewed and were acceptable. GENERAL: The patient is a female, in no apparent distress, speaking in full sentences. HEENT: Normocephalic, atraumatic. Mucous membranes are moist and pink. Good mouth opening noted. Trachea is midline. CHEST: S1, S2 irregularly irregular. No murmurs, rubs or gallops were noted. LUNGS: Clear to auscultation bilaterally without appreciable wheezes, rales or rhonchi. ABDOMEN: Soft, nontender, nondistended. Positive bowel sounds. EXTREMITIES: There is no clubbing, cyanosis or edema. ASA Class: II DESCRIPTION OF PROCEDURE: After confirmation of informed consent, the patient's anesthesia plan was reviewed in detail. Etomidate was chosen. Risks and benefits were reviewed and the patient agreed to proceed. At 1223, the patient was given 4 mg of etomida te. The patient achieved an appropriate level of sedation and was given a 200 joule synchronized cardioversion by Dr. Treviño at the bedside. This was successful in achieving normal sinus rhythm. The patient was monitored until 1235, at which time she reached her baseline mental status and function. The patient tolerated the procedure well. COMPLICATIONS: None ESTIMATED BLOOD LOSS: None RECOMMENDATIONS: Okay to recover in usual fashion. Procedures Pulmonary [id number]: Other Procedure See Report ([id number])
== END 2020-07-18 13:40 | disposition home or self-care (01) ==
LOC: CLSP 10:26
PROVIDERS: PCP Family Medicine; Visit Provider Internal Medicine Cardiovascular Disease
DX: I48.19 Other persistent atrial fibrillation (principal); I50.43 Acute on chronic combined systolic (congestive) and diastolic (congestive) heart failure; E66.9 Obesity, unspecified; Z68.27 Body mass index [BMI] 27.0-27.9, adult; D64.9 Anemia, unspecified; E78.5 Hyperlipidemia, unspecified; I25.2 Old myocardial infarction; I71.4 Abdominal aortic aneurysm, without rupture; I73.9 Peripheral vascular disease, unspecified; I42.8 Other cardiomyopathies; I49.5 Sick sinus syndrome; J44.9 Chronic obstructive pulmonary disease, unspecified; I25.10 Atherosclerotic heart disease of native coronary artery without angina pectoris; G47.33 Obstructive sleep apnea (adult) (pediatric); K58.9 Irritable bowel syndrome, unspecified; I13.0 Hypertensive heart and chronic kidney disease with heart failure and stage 1 through stage 4 chronic kidney disease, or unspecified chronic kidney disease; N18.9 Chronic kidney disease, unspecified; I48.0 Paroxysmal atrial fibrillation; I25.110 Atherosclerotic heart disease of native coronary artery with unstable angina pectoris; F41.9 Anxiety disorder, unspecified; Z68.28 Body mass index [BMI] 28.0-28.9, adult; E87.6 Hypokalemia; Z86.16 Personal history of COVID-19; Z87.01 Personal history of pneumonia (recurrent); Z86.19 Personal history of other infectious and parasitic diseases; Z95.0 Presence of cardiac pacemaker; Z95.5 Presence of coronary angioplasty implant and graft; Z79.01 Long term (current) use of anticoagulants; Z79.02 Long term (current) use of antithrombotics/antiplatelets; Z79.899 Other long term (current) drug therapy; Z87.891 Personal history of nicotine dependence
CPT/HCPCS: 71045; 80048; 84484; 85025; 92960; 93005; 99152; 99153; 99283; J7040; A4216

== ENCOUNTER 2020-07-18 14:05 | Emergency (ER) | payer MEDICARE, MEDICAID, SELFPAY ==
[2019-07-16 09:26] VITALS: BMI 29.5
[2020-07-17 08:08] VITALS: BMI 27.6
[2020-07-18 14:07] VITALS: BP 126/81; PULSE 60; RESP 9; TEMP 36.6; O2SAT 99; BMI 28.8
--- NOTE | 2020-07-18 14:14 | EKG12_ITS ---
Test Reason : CP Blood Pressure : / mmHG Vent. Rate : 060 BPM Atrial Rate : 060 BPM P-R Int : 214 ms QRS Dur : 114 ms QT Int : 448 ms P-R-T Axes : 059 -09 238 degrees QTc Int : 448 ms Atrial-paced rhythm with prolonged AV conduction Anterior infarct , age undetermined ST & T wave abnormality, consider lateral ischemia Abnormal ECG Confirmed by HUYEN JEAN-BAPTISTE, TAYLOR ([id number]), slot editor MAREN GRIMES ([id number]) on 07/19/2020 9:23:33 AM Referred By: MYRNA Confirmed By:TAYLOR MATSON MD
--- NOTE | 2020-07-18 14:15 | ED.RN ---
THIS NURSE SPOKE WITH PT DAUGHTER LINCOLN AT [phone] TO UPDATE HER OF PT CONDITION PER PT REQUEST.
--- NOTE | 2020-07-18 14:21 | ED.VIS.CHEST ---
HPI History of Present Illness Chief Complaint: Chest Pain Informant: patient Onset/Context/Timing Activity at onset: sudden Timing: Continuous Quality: Positive for Tightness Location: Substernal Current Severity: 4/10 Maximum Severity: 4/10 Worsened By: Nothing Associated Symptoms: Negative for Nausea, Vomiting, Diaphoresis and Dyspnea Narrative Narrative: 70-year-old female known history of cardiac disease. 3 prior MIs. 10 cardiac stents. Also a pacemaker. Last heart cath was less than 6 months ago. Patient states she had a cardioversion done today for A. fib. She developed chest pain which she describes tightness after the procedure. Cornelia worse and a [employer]ER was called. She was then brought to the emergency department. She states she has had this before. She is never needed to be admitted for it. She said she has had this pain is not exertional and she does not think it is cardiac. She is on aspirin, Plavix and Xarelto. Prior Similar Symptoms: Yes Recent Illness/Hospitalization: Yes PE Risk Factors: Positive for Recent Immobilization [facility] Medical History Abdominal aortic aneurysm (AAA) Acute on chronic combined systolic (congestive) and diastolic (congestive) heart failure Acute on chronic diastolic (congestive) heart failure Angina pectoris Anxiety and depression Atherosclerotic heart disease of [place] coronary artery without angina pectoris Atrial fibrillation with RVR Atrial fibrillation with RVR Claudication in peripheral vascular disease Congestive heart failure (CHF) COPD (chronic obstructive pulmonary disease) COVID-19 (01/01/20) Dyspnea on exertion Emphysema of lung Essential (primary) hypertension HLD (hyperlipidemia) Hypokalemia IBS (irritable bowel syndrome) Nicotine dependence Non-ischemic cardiomyopathy Non-STEMI (non-ST elevated myocardial infarction) (03/19/19) Obesity BELLE (obstructive sleep apnea) PAD (peripheral artery disease) Paroxysmal atrial fibrillation Peripheral vascular occlusive disease Persistent atrial fibrillation Pneumonia due to 2019 novel coronavirus (01/01/20) Sepsis (01/01/20) Sinus pause Smoking greater than 30 pack years Tachy-erica syndrome Unstable angina pectoris due to coronary arteriosclerosis Wheezing Home Medications atorvastatin 40 mg tablet 40 mg PO QHS tablet 07/09/19 [History Last Taken 06/05/20] dicyclomine 10 mg capsule 10 mg PO 4X/DAY 07/09/19 [History Last Taken 06/06/20] famotidine 20 mg tablet 20 mg PO DAILY 07/09/19 [History Last Taken 07/18/20] clopidogrel 75 mg PO QHS 08/30/19 [History Last Taken 07/18/20] potassium chloride 20 meq PO BID 04/22/20 [History Last Taken 06/06/20] isosorbide mononitrate 60 mg PO DAILY 06/06/20 [History Last Taken 07/18/20] metoprolol tartrate 100 mg PO BID 06/06/20 [History Last Taken 07/18/20] rivaroxaban 20 mg PO DAILY@1700 06/06/20 [History Last Taken 07/18/20] rotigotine 2 mg TOPICAL DAILY 06/06/20 [History Last Taken 06/05/20] gabapentin 200 mg PO TIDCM #180 capsule 06/08/20 [Rx Last Taken Unknown] mirtazapine 30 mg tablet 30 mg PO QHS 06/22/20 [History Last Taken Unknown] albuterol sulfate 90 mcg/actuation aerosol inhaler 1 - 2 puff INHALATION Q4H PRN PRN #1 inhaler 07/06/20 [Rx Last Taken Unknown] amiodarone 200 mg tablet 200 mg PO DAILY tablet 07/06/20 [History Last Taken 07/18/20] fluticasone 500 mcg-salmeterol 50 mcg/dose blistr powdr for inhalation 1 inh INHALATION BID #60 each 07/06/20 [Rx Last Taken Unknown] furosemide 40 mg tablet 40 mg PO DAILY #0 tablet 07/06/20 [Rx Last Taken Unknown] Allergy/AdvReac Type Severity Reaction Status Date / Time lisinopril Allergy tongue Verified 07/17/20 08:16 swelling Family History Father Heart disease Hypertension Seizures Sister CVA (cerebral vascular accident) Hypertension Other Family history of hypertension Surgical History History of angioplasty of peripheral vessel History of bilateral leg stents History of bunionectomy of right great toe History of cardioversion (05/19/20) History of colonoscopy (06/2018) History of coronary artery stent placement (03/18/19) History of hysterectomy History of left heart catheterization (11/25/19) History of permanent cardiac pacemaker placement (03/27/20) History of tonsillectomy Hx of APLL Hx of hysterectomy Status post left foot surgery Social History Smoking Status: Former smoker how long ago did patient quit smokin months ago alcohol intake: never substance use type: does not use caffeine: No what type of physical activity do you participate in: none ROS ROS ED Review of Systems ROS Unobtainable: Denies due to encephalopathy Constitutional Constitutional ED: Denies fever(s) Eyes Eyes: Reports none; Denies change in vision ENT ENT ED: Denies sore throat Cardiovascular Cardiovascular: Reports as per HPI; Denies racing heartbeat Respiratory/Chest Respiratory/Chest: Denies cough, dyspnea or sputum Gastrointestinal Gastrointestinal: Denies abdominal pain, nausea or vomiting Genitourinary Genitourinary ED: Denies dysuria, hematuria or urinary frequency Musculoskeletal Musculoskeletal: Denies myalgias Integumentary Denies rash Neurologic Neurologic: Denies headache(s) Psychiatric Psychiatric: Denies depression Endocrine Endocrinology: Denies polyuria Hematologic/Lymphatic Hematologic/Lymphatic: Reports easy bruising Allergic/Immunologic Allergic/Immunologic ED: Denies urticaria EXAM Physical Exam Narrative Exam Narrative: Older female no acute distress. Sitting upright in bed. Vital signs stable. Afebrile. She does not look septic or toxic. She is in no distress. HEENT exam unremarkable. Lungs clear to auscultation bilaterally. Heart regular rhythm no murmur. Rate about 60. Abdomen soft nontender normal bowel sounds no peritoneal signs. Moving all 4 extremities. Calves are nontender without edema or cords. Neurologically she is awake and alert without focal motor deficits. Const Vital Signs: 07/18/20 14:07 07/18/20 14:22 Temperature 98 F Temperature Source Temporal Pulse Rate 60 Respiratory Rate 9 L Respiratory Effort Normal Non-Labored Respiratory Pattern Normal Blood Pressure 126/81 H Blood Pressure Mean 96 Pulse Ox 99 99 Oxygen Delivery Method Room Air Room Air Positive well nourished and well developed General Appearance ED: well developed HEENT normocephalic and atraumatic Eyes PERRL and EOMs intact bilaterally Neck no lymphadenopathy and supple Chest Wall inspection of chest normal Resp normal respiratory effort and clear to auscultation bilaterally Effort and Inspection: respiratory distress GI normal to inspection, nondistended, normoactive bowel sounds, soft to palpation, non-tender, non-distended and no masses Back/Spine no CVA tenderness Extremity normal to inspection General Extremety ED: Yes pulses abnormal and tenderness; Negative for edema General Extremity: pulses abnormal; Negative for edema Neuro oriented x3 and CN's II-XII intact bilaterally Sensorium / Orientation: awake, alert, oriented to person, oriented to place and oriented to time Motor Exam: strength 5/5 throughout Psych mental status grossly normal Skin no rashes or lesions noted and no wounds MDM MDM MDM Narrative Medical decision making narrative: 70-year-old female with a significant cardiac history. Describes chest tightness. She will undergo cardiac evaluation. I am not concerned for PE because she is on multiple different blood thinners. Patient is doing well at 3:10 PM. She wants no further evaluation. She and I went over all of her test results and she wants to be discharged home. Lab Data Labs: Laboratory Results - last 24 hr 07/18/20 07/18/20 14:20 14:20 WBC 7.0 RBC 4.21 Hgb 10.5 L Hct 34.9 L MCV 82.9 MCH 24.9 L MCHC 30.1 L RDW Std Deviation 50.1 H RDW Coeff of Natalie 16.8 H Plt Count 302 MPV 9.9 Immature Gran % (Auto) 0.400 Neut % (Auto) 76.7 H Lymph % (Auto) 14.1 L [place] % (Auto) 7.1 Eos % (Auto) 1.3 Baso % (Auto) 0.4 Absolute Neuts (auto) 5.4 Absolute Lymphs (auto) 0.99 Nucleated RBC % 0 Sodium 139 Potassium 3.4 L Chloride 103 Carbon Dioxide 27.0 Anion Gap 9 BUN 39 H Creatinine 1.98 H Estim Creat Clear Calc 20.61 Est GFR (MDRD) Af Amer 32 L Est GFR (MDRD) Non-Af 26 L BUN/Creatinine Ratio 19.7 Glucose 163 H Calcium 8.6 Troponin I 0.018 Patient has a chronic anemia. She has chronic renal insufficiency. Her troponins unremarkable. Her initial EKG was a paced rhythm with no acute signs of DC or ischemia. Unchanged from the one that earlier today at 1220 in the cardiac catheterization lab. Radiography Chest X-Ray - ED: 1 View, Lungs, Mediastinum, Bony Structures, No Acute Disease, Chronic Changes and Cardiomegaly Diagnostic Testing: Radiology Impression Chest X-Ray 07/18/20 14:40 IMPRESSION: Mild cardiomegaly. Electronically Signed: Brown Yanes MD at 14:48 EDT , Service support , Rhythm Strip Rhythm Strip: Sinus Rhythm Rate: 60 Ectopy: None Treatment and Re-Evaluation Comments:: Repeat exam patient is doing well at 3:10 PM. Symptom-free. Patient I discussed repeat cardiac enzymes and repeat EKGs which she deferred. She states she has had these episodes before and does not want any further evaluation. She does not believe it to be cardiac in etiology and was to be discharged home. Discharge Plan Triage Chief Complaint: Chest Pain ED Provider: Leighton Schwartz Dx/Rx/DC Orders Clinical Impression: Chest pain of uncertain etiology Instructions: ED Chest Pain, Uncertain Cause Prescriptions: No Action atorvastatin 40 mg tablet 40 mg PO QHS RF: 0 famotidine 20 mg tablet 20 mg PO DAILY RF: 0 dicyclomine 10 mg capsule 10 mg PO 4X/DAY RF: 0 amiodarone 200 mg tablet 200 mg PO DAILY RF: 0 furosemide 40 mg tablet 40 mg PO DAILY Qty: 0 RF: 0 clopidogrel 75 MG tablet 75 mg PO QHS RF: 0 potassium chloride 20 MEQ tablet extended release 20 meq PO BID RF: 0 rotigotine 2 MG patch 2 mg TOPICAL DAILY RF: 0 metoprolol tartrate 100 MG tablet 100 mg PO BID RF: 0 isosorbide mononitrate 60 MG tablet extended release 24 hr 60 mg PO DAILY RF: 0 rivaroxaban 20 MG tablet 20 mg PO DAILY@1700 RF: 0 gabapentin 100 MG capsule 200 mg PO TIDCM Qty: 180 RF: 0 mirtazapine 30 mg tablet 30 mg PO QHS RF: 0 albuterol sulfate 90 mcg/actuation HFA aerosol inhaler 1 - 2 puff INHALATION Q4H PRN PRN (Reason: Dyspnea, wheezing) Qty: 1 RF: 6 fluticasone propion-salmeterol 500-50 mcg/dose blister with device 1 inh INHALATION BID Qty: 60 RF: 6 Primary Care Provider: Feng Hayes Referrals: Feng Hayes MD [Primary Care Provider] - 3-5 Days if not improving Activity Restrictions/Additional Instructions: Your work-up today was unremarkable. Return if you are feeling worse. Follow-up with your doctor if not back to normal.
[2020-07-18 14:22] VITALS: O2SAT 99
[2020-07-18] MEDS: Aspirin 81 MG TAB.CHEW 324 MG PO (14:25)
[2020-07-18 14:40] LABS: Absolute Lymphocyte Count 0.99 X10^3/uL (0.83-4.51); Absolute Neutrophil Count 5.4 X10^3/uL (2.0-7.7); Basophil# 0.03 X10^3/uL; Basophil% 0.4 % (0-1); Eosinophil# 0.09 X10^3/uL; Eosinophils% 1.3 % (0-5); Hematocrit 34.9 % (37-47); Hemoglobin 10.5 g/dL (12.0-15.0); Lymphocyte # 0.99 X10^3/ul (0.83-4.51); Lymphocyte % 14.1 % (19-41); Mean Corp Hgb Conc 30.1 g/dL (32-36); Mean Corpuscular Hgb 24.9 pg (27.0-32.0); Mean Corpuscular Volume 82.9 fL (81-99); Mean Platelet Vol. 9.9 fl (6.2-12.0); Monocyte% 7.1 % (0-10); NRBC Flagged by Analyzer 0 % (0-5); Neutrophil # 5.36 X10^3/uL (2.7-7.7); Neutrophil % 76.7 % (47-70); Platelet Count 302 K/mm3 (150-450); RBC Distribution Width CV 16.8 % (11.6-14.6); RBC Distribution Width SD 50.1 fl (35.1-43.9); Red Blood Count 4.21 M/mm3 (4.2-5.4)
--- NOTE | 2020-07-18 14:40 | RAD_ITS ---
STUDY: X-RAY CHEST REASON FOR EXAM: Female, 70 years old. Chest pain TECHNIQUE: Single AP portable view of the chest. COMPARISON: Comparison is made with prior study of 06/07/2020. FINDINGS: EKG electrodes are seen. The lungs are clear and expanded. There is no demonstrated pleural abnormality. There is mild cardiac enlargement. A left-sided dual-chamber pacemaker is seen. Normal mediastinum and artis. Normal visualized pulmonary arteries. There is atherosclerotic calcification of the aortic arch with tortuosity. Normal visualized thoracic spine. Normal visualized ribs, clavicles, and shoulders. There is no demonstrated abnormality of the visualized soft tissue structures of the upper abdomen. RAD/Chest 1 View (Portable) IMPRESSION: Mild cardiomegaly. Electronically Signed: Brown Yanes MD at 14:48 EDT , Service support ,
[2020-07-18 14:54] LABS: Anion Gap 9 (5-15); BUN 39 mg/dL (7-18); BUN/Creat Ratio 19.7 RATIO (10-20); Calcium,Total 8.6 mg/dL (8.5-10.1); Chloride 103 mmol/L (98-107); Creatinine, Serum 1.98 mg/dL (0.55-1.02); EST Glomerular Filtration Rate 26 mL/min (>60); Est Glom Filt Rate - Afr Amer 32 mL/min (>60); Estimated Creatinine Clearance 20.61 ml/min; Glucose 163 mg/dL (74-106); Potassium 3.4 mmol/L (3.5-5.1); Sodium Level 139 mmol/L (136-145)
== END 2020-07-18 16:01 | disposition home or self-care (01) ==
LOC: ED 14:26
PROVIDERS: Emergency Provider Emergency Medicine; PCP Family Medicine
DX: R07.89 Other chest pain (principal); I13.0 Hypertensive heart and chronic kidney disease with heart failure and stage 1 through stage 4 chronic kidney disease, or unspecified chronic kidney disease; N18.9 Chronic kidney disease, unspecified; I48.0 Paroxysmal atrial fibrillation; I50.43 Acute on chronic combined systolic (congestive) and diastolic (congestive) heart failure; I71.4 Abdominal aortic aneurysm, without rupture; I73.9 Peripheral vascular disease, unspecified; I25.110 Atherosclerotic heart disease of native coronary artery with unstable angina pectoris; I48.19 Other persistent atrial fibrillation; E78.5 Hyperlipidemia, unspecified; F32.9 Major depressive disorder, single episode, unspecified; F41.9 Anxiety disorder, unspecified; G47.33 Obstructive sleep apnea (adult) (pediatric); E66.9 Obesity, unspecified; Z68.28 Body mass index [BMI] 28.0-28.9, adult; E87.6 Hypokalemia; K58.9 Irritable bowel syndrome, unspecified; I25.2 Old myocardial infarction; I49.5 Sick sinus syndrome; J44.9 Chronic obstructive pulmonary disease, unspecified; I42.8 Other cardiomyopathies; Z86.16 Personal history of COVID-19; Z87.01 Personal history of pneumonia (recurrent); Z86.19 Personal history of other infectious and parasitic diseases; Z95.0 Presence of cardiac pacemaker; Z95.5 Presence of coronary angioplasty implant and graft; Z79.01 Long term (current) use of anticoagulants; Z79.02 Long term (current) use of antithrombotics/antiplatelets; Z79.82 Long term (current) use of aspirin; Z79.899 Other long term (current) drug therapy; Z87.891 Personal history of nicotine dependence
CPT/HCPCS: 71045; 80048; 84484; 85025; 93005; 99283; A4216

== ENCOUNTER 2020-08-03 14:45 | Emergency (ER) | payer MEDICARE, MEDICAID, SELFPAY ==
[2019-07-16 09:26] VITALS: BMI 29.5
[2020-07-24 11:09] VITALS: BMI 28.8
[2020-08-03 14:46] VITALS: BP 158/78; PULSE 61; RESP 15; TEMP 36.4; O2SAT 95; BMI 28.9
--- NOTE | 2020-08-03 15:00 | RAD_ITS ---
STUDY: X-RAY CHEST REASON FOR EXAM: Female, 70 years old. Chest pain, history of trauma TECHNIQUE: PA and lateral views of the chest. COMPARISON: 07/18/2020 FINDINGS: Stable appearance of a left subclavian pacemaker Lungs are expanded, significant change since the previous study with development of diffuse interstitial and airspace opacifications in both lung ruffin. Differential includes pulmonary contusions from trauma but other possibilities include Covid pneumonia, or multifocal pneumonitis. There is a small left pleural effusion new since the previous study. Normal size heart. Normal mediastinum and artis. Normal visualized pulmonary arteries. There is atherosclerotic calcification of the aortic arch with tortuosity. There are diffuse degenerative changes of the visualized thoracic spine. There is degenerative osteoarthritis of the bilateral shoulders. There is no demonstrated abnormality of the visualized soft tissue structures of the upper abdomen. RAD/Chest PA and Lateral IMPRESSION: Development of diffuse interstitial and airspace opacifications since the previous study, differential as described above. Small left pleural effusion Electronically Signed: Bill Hsu MD at 15:19 EDT , Service support ,
--- NOTE | 2020-08-03 15:07 | EX.ED.UPPERE ---
HPI History of Present Illness Chief Complaint: Upper Extremity Injury Narrative Narrative: Patient sustained a mechanical fall prior to arrival earlier this morning. She is complaining of back pain especially when she takes a deep breath. She felt backwards hitting the furniture with her upper back region she denies any other injuries. She denies any head injury or neck pain no loss of consciousness. She is denying any extremity injuries or any other injuries. [facility] Medical History (Updated 08/03/20 @ 16:[address] Seven Mancilla MD) Abdominal aortic aneurysm (AAA) Acute on chronic combined systolic (congestive) and diastolic (congestive) heart failure Acute on chronic diastolic (congestive) heart failure Angina pectoris Anxiety and depression Atherosclerotic heart disease of [place] coronary artery without angina pectoris Atrial fibrillation with RVR Atrial fibrillation with RVR Chronic kidney disease, stage 4 (severe) Claudication in peripheral vascular disease Congestive heart failure (CHF) COPD (chronic obstructive pulmonary disease) COVID-19 (01/01/20) Dyspnea on exertion Emphysema of lung Essential (primary) hypertension HLD (hyperlipidemia) Hypokalemia IBS (irritable bowel syndrome) Nicotine dependence Non-ischemic cardiomyopathy Non-STEMI (non-ST elevated myocardial infarction) (03/19/19) Obesity BELLE (obstructive sleep apnea) PAD (peripheral artery disease) Paroxysmal atrial fibrillation Peripheral vascular occlusive disease Persistent atrial fibrillation Pneumonia due to 2019 novel coronavirus (01/01/20) Sepsis (01/01/20) Sinus pause Smoking greater than 30 pack years Tachy-erica syndrome Unstable angina pectoris due to coronary arteriosclerosis Wheezing Home Medications atorvastatin 40 mg tablet 40 mg PO QHS tablet 07/09/19 [History Last Taken 06/05/20] dicyclomine 10 mg capsule 10 mg PO 4X/DAY 07/09/19 [History Last Taken 06/06/20] famotidine 20 mg tablet 20 mg PO DAILY 07/09/19 [History Last Taken 07/18/20] clopidogrel 75 mg PO QHS 08/30/19 [History Last Taken 07/18/20] potassium chloride 20 meq PO BID 04/22/20 [History Last Taken 06/06/20] isosorbide mononitrate 60 mg PO DAILY 06/06/20 [History Last Taken 07/18/20] metoprolol tartrate 100 mg PO BID 06/06/20 [History Last Taken 07/18/20] rivaroxaban 20 mg PO DAILY@1700 06/06/20 [History Last Taken 07/18/20] rotigotine 2 mg TOPICAL DAILY 06/06/20 [History Last Taken 06/05/20] gabapentin 200 mg PO TIDCM #180 capsule 06/08/20 [Rx Last Taken Unknown] mirtazapine 30 mg tablet 30 mg PO QHS 06/22/20 [History Last Taken Unknown] albuterol sulfate 90 mcg/actuation aerosol inhaler 1 - 2 puff INHALATION Q4H PRN PRN #1 inhaler 07/06/20 [Rx Last Taken Unknown] amiodarone 200 mg tablet 200 mg PO DAILY tablet 07/06/20 [History Last Taken 07/18/20] fluticasone 500 mcg-salmeterol 50 mcg/dose blistr powdr for inhalation 1 inh INHALATION BID #60 each 07/06/20 [Rx Last Taken Unknown] furosemide 20 mg PO BID 07/26/20 [History Last Taken Unknown] Allergy/AdvReac Type Severity Reaction Status Date / Time lisinopril Allergy tongue Verified 08/03/20 14:47 swelling Family History Father Heart disease Hypertension Seizures Sister CVA (cerebral vascular accident) Hypertension Other Family history of hypertension Surgical History History of angioplasty of peripheral vessel History of bilateral leg stents History of bunionectomy of right great toe History of cardioversion (07/18/20) History of colonoscopy (06/2018) History of coronary artery stent placement (03/18/19) History of hysterectomy History of left heart catheterization (11/25/19) History of permanent cardiac pacemaker placement (03/27/20) History of tonsillectomy Hx of APLL Hx of hysterectomy Status post left foot surgery Social History Smoking Status: Former smoker how long ago did patient quit smokin months ago alcohol intake: never substance use type: does not use caffeine: No what type of physical activity do you participate in: none ROS ROS ED ROS Narrative Social: Noncontributory Medications: Reviewed in the computer. Significant for Plavix and Xarelto Past medical history: Reviewed, remarkable for CKD, CHF, A. fib, nonischemic cardiomyopathy hyperlipidemia, COPD, BELLE Review of systems General: Patient has no head injury or loss of consciousness HEENT: No facial injury Neck: No neck pain Cardiovascular: Patient denies any chest pain or palpitations Chest wall: No chest wall contusions Respiratory: There is no shortness of breath GI: There is no nausea vomiting diarrhea or abdominal pain, no abdominal wall contusions Skin: No lacerations or abrasions Neurological: Patient has no memory loss, confusion, or any focal weakness Psychiatric: No recent behavioral changes Back: Thoracic back pain especially with deep breaths. Musculoskeletal: No extremity injury All other systems are reviewed and normal EXAM Physical Exam Narrative Exam Narrative: Physical exam Vitals reviewed General: Does not appear in significant distress, no obvious injuries HEENT: No facial injury Head: No head injury Eyes: Extraocular movements intact Neck: No C-spine tenderness with full range of motion Heart: Regular rate normal pulses Chest wall: No chest wall pain Lungs clear lungs bilaterally with normal inspiration and expiration without tachypnea GI: Abdomen is soft and nontender there is no mass no guarding no abdominal wall contusion : Stable pelvis Musculoskeletal: No extremity injury, full range of motion Back: There is thoracic tenderness. It is paraspinal and in the thoracic region bilaterally over the ribs. No obvious contusions or hematomas or abrasions seen. Skin: No abrasions or laceration Neurological: Patient is alert and oriented with no focal deficits Const Vital Signs: 08/03/20 14:46 Temperature 97.5 F L Temperature Source Temporal Pulse Rate 61 Respiratory Rate 15 Blood Pressure 158/78 H Blood Pressure Mean 104 Pulse Ox 95 Oxygen Delivery Method Room Air MDM MDM MDM Narrative Medical decision making narrative: Patient does have x-ray consistent with increased pulmonary vasculature and/or pneumonitis, because of this I will add blood work, natruretic peptide as well as a Covid test. Patient will be turned over to the oncoming ED physician. Discharge Plan Triage Chief Complaint: Upper Extremity Injury ED Provider: Seven Mancilla Dx/Rx/DC Orders Clinical Impression: Back contusion, Shortness of breath Instructions: ED Back Contusion Prescriptions: No Action atorvastatin 40 mg tablet 40 mg PO QHS RF: 0 famotidine 20 mg tablet 20 mg PO DAILY RF: 0 dicyclomine 10 mg capsule 10 mg PO 4X/DAY RF: 0 amiodarone 200 mg tablet 200 mg PO DAILY RF: 0 clopidogrel 75 MG tablet 75 mg PO QHS RF: 0 potassium chloride 20 MEQ tablet extended release 20 meq PO BID RF: 0 furosemide 40 mg tablet 20 mg PO BID RF: 0 rotigotine 2 MG patch 2 mg TOPICAL DAILY RF: 0 metoprolol tartrate 100 MG tablet 100 mg PO BID RF: 0 isosorbide mononitrate 60 MG tablet extended release 24 hr 60 mg PO DAILY RF: 0 rivaroxaban 20 MG tablet 20 mg PO DAILY@1700 RF: 0 gabapentin 100 MG capsule 200 mg PO TIDCM Qty: 180 RF: 0 mirtazapine 30 mg tablet 30 mg PO QHS RF: 0 albuterol sulfate 90 mcg/actuation HFA aerosol inhaler 1 - 2 puff INHALATION Q4H PRN PRN (Reason: Dyspnea, wheezing) Qty: 1 RF: 6 fluticasone propion-salmeterol 500-50 mcg/dose blister with device 1 inh INHALATION BID Qty: 60 RF: 6 Primary Care Provider: Feng Hayes Referrals: Feng Hayes MD [Primary Care Provider] -
[2020-08-03] MEDS: Acetaminophen 500 MG Tablet 1000 MG PO (15:36)
--- NOTE | 2020-08-03 16:00 | EKG12_ITS ---
Test Reason : Blood Pressure : / mmHG Vent. Rate : 060 BPM Atrial Rate : 060 BPM P-R Int : 218 ms QRS Dur : 112 ms QT Int : 478 ms P-R-T Axes : 058 002 -74 degrees QTc Int : 478 ms Atrial-paced rhythm with prolonged AV conduction Incomplete left bundle branch block ST & T wave abnormality, consider lateral ischemia Prolonged QT Abnormal ECG Confirmed by MARTIN JEAN-BAPTISTE, GABO ([id number]), index editor MAREN GRIMES ([id number]) on 08/08/2020 10:02:42 A M Referred By: CYNDI Confirmed By:TITA SALAZAR MD
[2020-08-03 16:23] VITALS: BP 149/64; PULSE 61; RESP 18; O2SAT 93
[2020-08-03 16:40] LABS: Absolute Lymphocyte Count 0.84 X10^3/uL (0.83-4.51); Absolute Neutrophil Count 6.5 X10^3/uL (2.0-7.7); Basophil# 0.03 X10^3/uL; Basophil% 0.4 % (0-1); Eosinophil# 0.13 X10^3/uL; Eosinophils% 1.6 % (0-5); Hematocrit 33.8 % (37-47); Hemoglobin 10.2 g/dL (12.0-15.0); Lymphocyte # 0.84 X10^3/ul (0.83-4.51); Lymphocyte % 10.1 % (19-41); Mean Corp Hgb Conc 30.2 g/dL (32-36); Mean Corpuscular Hgb 25.1 pg (27.0-32.0); Mean Platelet Vol. 10.3 fl (6.2-12.0); Monocyte# 0.81 X10^3/uL; Monocyte% 9.7 % (0-10); NRBC Flagged by Analyzer 0 % (0-5); Neutrophil # 6.46 X10^3/uL (2.7-7.7); Neutrophil % 77.7 % (47-70); Platelet Count 318 K/mm3 (150-450); RBC Distribution Width CV 17.9 % (11.6-14.6); RBC Distribution Width SD 51.3 fl (35.1-43.9); Red Blood Count 4.07 M/mm3 (4.2-5.4); White Blood Count 8.3 K/mm3 (4.4-11.0)
[2020-08-03 17:00] LABS: ALB/GLOB Ratio 0.7 RATIO (0.9-2.4); AST(SGOT) 32 U/L (15-37); Alanine Aminotransfer ALT/SGPT 31 U/L (13-56); Albumin, Serum 2.6 g/dL (3.2-5.0); Alkaline Phosphatase 105 U/L (45-117); Anion Gap 7 (5-15); BUN 24 mg/dL (7-18); BUN/Creat Ratio 19.7 RATIO (10-20); Calcium,Total 8.3 mg/dL (8.5-10.1); Chloride 105 mmol/L (98-107); Creatinine, Serum 1.22 mg/dL (0.55-1.02); EST Glomerular Filtration Rate 46 mL/min (>60); Est Glom Filt Rate - Afr Amer 56 mL/min (>60); Estimated Creatinine Clearance 33.45 ml/min; Globulin 3.5 g/dL (2.2-4.2); Glucose 102 mg/dL (74-106); Potassium 4.1 mmol/L (3.5-5.1); Protein, Total 6.1 g/dL (6.4-8.2); Sodium Level 138 mmol/L (136-145)
--- NOTE | 2020-08-03 17:43 | EDS_ITS ---
HPI History of Present Illness Chief Complaint: Upper Extremity Injury [facility] Medical History (Updated 08/03/20 @ 16:[address] Seven Mancilla MD) Abdominal aortic aneurysm (AAA) Acute on chronic combined systolic (congestive) and diastolic (congestive) heart failure Acute on chronic diastolic (congestive) heart failure Angina pectoris Anxiety and depression Atherosclerotic heart disease of [place] coronary artery without angina pectoris Atrial fibrillation with RVR Atrial fibrillation with RVR Chronic kidney disease, stage 4 (severe) Claudication in peripheral vascular disease Congestive heart failure (CHF) COPD (chronic obstructive pulmonary disease) COVID-19 (01/01/20) Dyspnea on exertion Emphysema of lung Essential (primary) hypertension HLD (hyperlipidemia) Hypokalemia IBS (irritable bowel syndrome) Nicotine dependence Non-ischemic cardiomyopathy Non-STEMI (non-ST elevated myocardial infarction) (03/19/19) Obesity BELLE (obstructive sleep apnea) PAD (peripheral artery disease) Paroxysmal atrial fibrillation Peripheral vascular occlusive disease Persistent atrial fibrillation Pneumonia due to 2019 novel coronavirus (01/01/20) Sepsis (01/01/20) Sinus pause Smoking greater than 30 pack years Tachy-erica syndrome Unstable angina pectoris due to coronary arteriosclerosis Wheezing Home Medications atorvastatin 40 mg tablet 40 mg PO QHS tablet 07/09/19 [History Last Taken 06/05/20] dicyclomine 10 mg capsule 10 mg PO 4X/DAY 07/09/19 [History Last Taken 06/06/20] famotidine 20 mg tablet 20 mg PO DAILY 07/09/19 [History Last Taken 07/18/20] clopidogrel 75 mg PO QHS 08/30/19 [History Last Taken 07/18/20] potassium chloride 20 meq PO BID 04/22/20 [History Last Taken 06/06/20] isosorbide mononitrate 60 mg PO DAILY 06/06/20 [History Last Taken 07/18/20] metoprolol tartrate 100 mg PO BID 06/06/20 [History Last Taken 07/18/20] rivaroxaban 20 mg PO DAILY@1700 06/06/20 [History Last Taken 07/18/20] rotigotine 2 mg TOPICAL DAILY 06/06/20 [History Last Taken 06/05/20] gabapentin 200 mg PO TIDCM #180 capsule 06/08/20 [Rx Last Taken Unknown] mirtazapine 30 mg tablet 30 mg PO QHS 06/22/20 [History Last Taken Unknown] albuterol sulfate 90 mcg/actuation aerosol inhaler 1 - 2 puff INHALATION Q4H PRN PRN #1 inhaler 07/06/20 [Rx Last Taken Unknown] amiodarone 200 mg tablet 200 mg PO DAILY tablet 07/06/20 [History Last Taken 07/18/20] fluticasone 500 mcg-salmeterol 50 mcg/dose blistr powdr for inhalation 1 inh I NHALATION BID #60 each 07/06/20 [Rx Last Taken Unknown] furosemide 20 mg PO BID 07/26/20 [History Last Taken Unknown] Allergy/AdvReac Type Severity Reaction Status Date / Time lisinopril Allergy tongue Verified 08/03/20 14:47 swelling Family History Father Heart disease Hypertension Seizures Sister CVA (cerebral vascular accident) Hypertension Other Family history of hypertension Surgical History History of angioplasty of peripheral vessel History of bilateral leg stents History of bunionectomy of right great toe History of cardioversion (07/18/20) History of colonoscopy (06/2018) History of coronary artery stent placement (03/18/19) History of hysterectomy History of left heart catheterization (11/25/19) History of permanent cardiac pacemaker placement (03/27/20) History of tonsillectomy Hx of APLL Hx of hysterectomy Status post left foot surgery Social History Smoking Status: Former smoker how long ago did patient quit smokin months ago alcohol intake: never substance use type: does not use caffeine: No what type of physical activity do you participate in: none EXAM Physical Exam Const Vital Signs: 08/03/20 14:46 08/03/20 16:23 Temperature 97.5 F L Temperature Source Temporal Pulse Rate 61 61 Respiratory Rate 15 18 Blood Pressure 158/78 H 149/64 H Blood Pressure Mean 104 92 Pulse Ox 95 93 Oxygen Delivery Method Room Air Room Air MDM MDM MDM Narrative Medical decision making narrative: The patient was signed out to me pending results of labs. Her BNP is elevated consistent with her chest x-ray showing evidence of CHF. However, her cardiac enzymes are normal. Her Covid test was negative. I did discuss options with the patient. She wants to attempt outpatient therapy. She is not tachypneic or hypoxic. I did have the patient ambulate through the emergency department. She never became hypoxic or tachypneic. I am going to give her a dose of IV Lasix and she will continue her diuretics. The patient will be discharged home. Impression 1. CHF exacerbation 2. Back contusion Lab Data Attestation: I reviewed the patient's lab results. Labs: Laboratory Results - last 24 hr 08/03/20 08/03/20 08/03/20 16:24 16:24 16:24 WBC 8.3 RBC 4.07 L Hgb 10.2 L Hct 33.8 L MCV 83.0 MCH 25.1 L MCHC 30.2 L RDW Std Deviation 51.3 H RDW Coeff of Natalie 17.9 H Plt Count 318 MPV 10.3 Immature Gran % (Auto) 0.500 Neut % (Auto) 77.7 H Lymph % (Auto) 10.1 L [place] % (Auto) 9.7 Eos % (Auto) 1.6 Baso % (Auto) 0.4 Absolute Neuts (auto) 6.5 Absolute Lymphs (auto) 0.84 Nucleated RBC % 0 Sodium 138 Potassium 4.1 Chloride 105 Carbon Dioxide 26.0 Anion Gap 7 BUN 24 H Creatinine 1.22 H Estim Creat Clear Calc 33.45 Est GFR (MDRD) Af Amer 56 L Est GFR (MDRD) Non-Af 46 L BUN/Creatinine Ratio 19.7 Glucose 102 Calcium 8.3 L Total Bilirubin 0.50 AST 32 ALT 31 Alkaline Phosphatase 105 Troponin I < 0.015 B-Natriuretic Peptide 3596.4 H Total Protein 6.1 L Albumin 2.6 L Globulin 3.5 Albumin/Globulin Ratio 0.7 L Radiography Diagnostic Testing: Radiology Impression Chest X-Ray 08/03/20 15:00 IMPRESSION: Development of diffuse interstitial and airspace opacifications since the previous study, differential as described above. Small left pleural effusion Electronically Signed: Bill Hsu MD at 15:19 EDT , Service support , Discharge Plan Triage Chief Complaint: Upper Extremity Injury ED Provider: Antonio Mckeon Dx/Rx/DC Orders Clinical Impression: Back contusion, Shortness of breath Instructions: ED Back Contusion Prescriptions: No Action atorvastatin 40 mg tablet 40 mg PO QHS RF: 0 famotidine 20 mg tablet 20 mg PO DAILY RF: 0 dicyclomine 10 mg capsule 10 mg PO 4X/DAY RF: 0 amiodarone 200 mg tablet 200 mg PO DAILY RF: 0 clopidogrel 75 MG tablet 75 mg PO QHS RF: 0 potassium chloride 20 MEQ tablet extended release 20 meq PO BID RF: 0 furosemide 40 mg tablet 20 mg PO BID RF: 0 rotigotine 2 MG patch 2 mg TOPICAL DAILY RF: 0 metoprolol tartrate 100 MG tablet 100 mg PO BID RF: 0 isosorbide mononitrate 60 MG tablet extended release 24 hr 60 mg PO DAILY RF: 0 rivaroxaban 20 MG tablet 20 mg PO DAILY@1700 RF: 0 gabapentin 100 MG capsule 200 mg PO TIDCM Qty: 180 RF: 0 mirtazapine 30 mg tablet 30 mg PO QHS RF: 0 albuterol sulfate 90 mcg/actuation HFA aerosol inhaler 1 - 2 puff INHALATION Q4H PRN PRN (Reason: Dyspnea, wheezing) Qty: 1 RF: 6 fluticasone propion-salmeterol 500-50 mcg/dose blister with device 1 inh INHALATION BID Qty: 60 RF: 6 Primary Care Provider: Feng Hayes Referrals: Feng Hayes MD [Primary Care Provider] -
[2020-08-03] MEDS: Furosemide 40 MG/4 ML Vial IV (17:57)
[2020-08-03 18:04] VITALS: O2SAT 93
== END 2020-08-03 18:05 | disposition home or self-care (01) ==
PROVIDERS: Emergency Medicine; Emergency Provider Emergency Medicine; PCP Family Medicine
DX: I13.0 Hypertensive heart and chronic kidney disease with heart failure and stage 1 through stage 4 chronic kidney disease, or unspecified chronic kidney disease (principal); I50.43 Acute on chronic combined systolic (congestive) and diastolic (congestive) heart failure; N18.4 Chronic kidney disease, stage 4 (severe); S20.229A Contusion of unspecified back wall of thorax, initial encounter; W19.XXXA Unspecified fall, initial encounter; Y93.9 Activity, unspecified; Y92.9 Unspecified place or not applicable; E66.9 Obesity, unspecified; Z68.28 Body mass index [BMI] 28.0-28.9, adult; E78.5 Hyperlipidemia, unspecified; F32.9 Major depressive disorder, single episode, unspecified; F41.9 Anxiety disorder, unspecified; G47.33 Obstructive sleep apnea (adult) (pediatric); E87.6 Hypokalemia; I25.2 Old myocardial infarction; I44.7 Left bundle-branch block, unspecified; I48.0 Paroxysmal atrial fibrillation; I49.5 Sick sinus syndrome; I42.8 Other cardiomyopathies; I71.4 Abdominal aortic aneurysm, without rupture; I73.9 Peripheral vascular disease, unspecified; J44.9 Chronic obstructive pulmonary disease, unspecified; K58.9 Irritable bowel syndrome, unspecified; I25.119 Atherosclerotic heart disease of native coronary artery with unspecified angina pectoris; Z86.16 Personal history of COVID-19; Z87.01 Personal history of pneumonia (recurrent); Z86.19 Personal history of other infectious and parasitic diseases; Z95.5 Presence of coronary angioplasty implant and graft; Z79.01 Long term (current) use of anticoagulants; Z79.899 Other long term (current) drug therapy; Z87.891 Personal history of nicotine dependence
CPT/HCPCS: 71046; 80053; 83880; 84484; 85025; 87426; 93005; 96374; 99283; A4216; J1940

== ENCOUNTER 2020-08-22 08:03 | Emergency (ER) | payer MEDICARE, MEDICAID, SELFPAY ==
[2019-07-16 09:26] VITALS: BMI 29.5
[2020-08-22 08:05] VITALS: BP 161/82; PULSE 60; RESP 15; TEMP 36.5; O2SAT 94; BMI 28.0
--- NOTE | 2020-08-22 08:05 | EKG12_ITS ---
Test Reason : CP Blood Pressure : / mmHG Vent. Rate : 060 BPM Atrial Rate : 060 BPM P-R Int : 228 ms QRS Dur : 110 ms QT Int : 446 ms P-R-T Axes : 048 -03 016 degrees QTc Int : 446 ms Atrial-paced rhythm with prolonged AV conduction ST & T wave abnormality, consider anterolateral ischemia Abnormal ECG Confirmed by HUYEN JEAN-BAPTISTE, TAYLOR ([id number]), art editor LIGIA GUTIERREZ ([id number]) on 08/25/2020 8:24:13 AM Referred By: DADA Confirmed By:TAYLOR MATSON MD
[2020-08-22 08:13] LABS: Absolute Lymphocyte Count 0.92 X10^3/uL (0.83-4.51); Absolute Neutrophil Count 7.1 X10^3/uL (2.0-7.7); Basophil# 0.04 X10^3/uL; Basophil% 0.4 % (0-1); Eosinophil# 0.23 X10^3/uL; Eosinophils% 2.6 % (0-5); Hematocrit 33.9 % (37-47); Hemoglobin 10.3 g/dL (12.0-15.0); Lymphocyte # 0.92 X10^3/ul (0.83-4.51); Lymphocyte % 10.3 % (19-41); Mean Corp Hgb Conc 30.4 g/dL (32-36); Mean Corpuscular Hgb 25.4 pg (27.0-32.0); Mean Corpuscular Volume 83.5 fL (81-99); Mean Platelet Vol. 10.7 fl (6.2-12.0); Monocyte# 0.62 X10^3/uL; Monocyte% 6.9 % (0-10); NRBC Flagged by Analyzer 0 % (0-5); Neutrophil # 7.12 X10^3/uL (2.7-7.7); Neutrophil % 79.5 % (47-70); Platelet Count 242 K/mm3 (150-450); RBC Distribution Width CV 17.1 % (11.6-14.6); RBC Distribution Width SD 51.8 fl (35.1-43.9); Red Blood Count 4.06 M/mm3 (4.2-5.4)
--- NOTE | 2020-08-22 08:20 | RAD_ITS ---
STUDY: X-RAY CHEST REASON FOR EXAM: Female, 70 years old. Chest pain TECHNIQUE: Single AP portable view of the chest. COMPARISON: Comparison is made with prior study dated 08/03/2020. FINDINGS: EKG electrodes are seen. Mild residual increased interstitial markings in both lungs with areas of confluence although there has been a moderate degree of improvement as compared to prior study. I suspect a mild degree of superimposed CHF. There is no demonstrated pleural abnormality. There is borderline cardiomegaly. A left-sided dual-chamber pacemaker is seen. Normal mediastinum and artis. Normal visualized pulmonary arteries. There is atherosclerotic calcification of the aortic arch with tortuosity. Normal visualized thoracic spine. Normal visualized ribs, clavicles, and shoulders. There is no demonstrated abnormality of the visualized soft tissue structures of the upper abdomen. RAD/Chest 1 View (Portable) IMPRESSION: Mild residual increased interstitial markings in both lungs with areas of confluence as described. Superimposed CHF should be ruled out. Electronically Signed: Brown Yanes MD at 8:43 EDT , Service support ,
[2020-08-22 08:31] LABS: Anion Gap 7 (5-15); BUN 22 mg/dL (7-18); BUN/Creat Ratio 20.8 RATIO (10-20); Calcium,Total 8.7 mg/dL (8.5-10.1); Chloride 103 mmol/L (98-107); Creatinine, Serum 1.06 mg/dL (0.55-1.02); EST Glomerular Filtration Rate 54 mL/min (>60); Est Glom Filt Rate - Afr Amer 66 mL/min (>60); Glucose 109 mg/dL (74-106); Potassium 4.6 mmol/L (3.5-5.1); Sodium Level 138 mmol/L (136-145)
[2020-08-22] MEDS: LORazepam 2 MG/ML Syringe 0.5 MG IV (08:59)
[2020-08-22 09:15] VITALS: BP 167/61; PULSE 60; RESP 19; O2SAT 95
[2020-08-22 09:31] VITALS: O2SAT 96
--- NOTE | 2020-08-22 10:03 | EDS_ITS ---
HPI History of Present Illness Chief Complaint: Chest Pain Informant: patient Narrative Narrative: Patient is a 70-year-old female presenting with chest pain. Patient is a complex medical history including core coronary artery disease, AAA, nonischemic cardiomyopathy and combined systolic and diastolic heart failure. She states that last night when she was in bed she developed a sharp pain underneath her left breast and has had a chest pressure since. She states she feels very anxious. States she could not sleep at night. She states every time she tried to lay back she feels like she cannot sleep and so she could not sleep at all last night. She states that discomfort underneath her left breast has resolved but she still has pressure in her chest. Patient wears 2 L of oxygen intermittently at home. She states she has not really compliant with it. She denies any cough. Denies any swelling or abnormal weight gain. States she does weigh herself daily. She denies any fever or chills. No black or bloody stools. She states she has not missed any doses of her blood thinner. No other complaints at this time. Patient notes she has been very anxious with her recent health. She states that she is very anxious and feels that she needs medicine for anxiety. [facility] Medical History (Updated 08/22/20 @ 12:[address] Veronica Navarro, DO) Abdominal aortic aneurysm (AAA) Acute on chronic combined systolic (congestive) and diastolic (congestive) heart failure Acute on chronic diastolic (congestive) heart failure Angina pectoris Anxiety and depression Atherosclerotic heart disease of [place] coronary artery without angina pectoris Atrial fibrillation with RVR Atrial fibrillation with RVR Chronic kidney disease, stage 4 (severe) Claudication in peripheral vascular disease Congestive heart failure (CHF) COPD (chronic obstructive pulmonary disease) COVID-19 (01/01/20) Dyspnea on exertion Emphysema of lung Essential (primary) hypertension HLD (hyperlipidemia) Hypokalemia IBS (irritable bowel syndrome) Nicotine dependence Non-ischemic cardiomyopathy Non-STEMI (non-ST elevated myocardial infarction) (03/19/19) Obesity BELLE (obstructive sleep apnea) PAD (peripheral artery disease) Paroxysmal atrial fibrillation Peripheral vascular occlusive disease Persistent atrial fibrillation Pneumonia due to 2019 novel coronavirus (01/01/20) Sepsis (01/01/20) Sinus pause Smoking greater than 30 pack years Tachy-erica syndrome Unstable angina pectoris due to coronary arteriosclerosis Wheezing Home Medications atorvastatin 40 mg tablet 40 mg PO QHS tablet 07/09/19 [History Last Taken 06/05/20] dicyclomine 10 mg capsule 10 mg PO 4X/DAY 07/09/19 [History Last Taken 06/06/20] famotidine 20 mg tablet 20 mg PO DAILY 07/09/19 [History Last Taken 07/18/20] clopidogrel 75 mg PO QHS 08/30/19 [History Last Taken 07/18/20] potassium chloride 20 meq PO BID 04/22/20 [History Last Taken 06/06/20] isosorbide mononitrate 60 mg PO DAILY 06/06/20 [History Last Taken 07/18/20] metoprolol tartrate 100 mg PO BID 06/06/20 [History Last Taken 07/18/20] rivaroxaban 20 mg PO DAILY@1700 06/06/20 [History Last Taken 07/18/20] rotigotine 2 mg TOPICAL DAILY 06/06/20 [History Last Taken 06/05/20] mirtazapine 30 mg tablet 30 mg PO QHS 06/22/20 [History Last Taken Unknown] albuterol sulfate 90 mcg/actuation aerosol inhaler 1 - 2 puff INHALATION Q4H PRN PRN #1 inhaler 07/06/20 [Rx Last Taken Unknown] amiodarone 200 mg tablet 200 mg PO DAILY tablet 07/06/20 [History Last Taken 07/18/20] fluticasone 500 mcg-salmeterol 50 mcg/dose blistr powdr for inhalation 1 inh INHALATION BID #60 each 07/06/20 [Rx Last Taken Unknown] furosemide 40 mg tablet 40 mg PO DAILY tab 08/04/20 [History Last Taken Unknown] amlodipine 2.5 mg tablet 2.5 mg PO DAILY #30 tab 08/18/20 [Rx Last Taken Unknown] buspirone 5 mg PO BID #20 tab 08/22/20 [Rx Last Taken Unknown] gabapentin 300 mg PO TIDCM 08/22/20 [History Last Taken Unknown] Allergy/AdvReac Type Severity Reaction Status Date / Time lisinopril Allergy tongue Verified 08/22/20 08:09 swelling Family History Father Heart disease Hypertension Seizures Sister CVA (cerebral vascular accident) Hypertension Other Family history of hypertension Surgical History History of angioplasty of peripheral vessel History of bilateral leg stents History of bunionectomy of right great toe History of cardioversion (07/18/20) History of colonoscopy (06/2018) History of coronary artery stent placement (03/18/19) History of hysterectomy History of left heart catheterization (11/25/19) History of permanent cardiac pacemaker placement (03/27/20) History of tonsillectomy Hx of APLL Hx of hysterectomy Status post left foot surgery Social History (Updated 08/22/20 @ 08:14 by Lexis Gallegos) household members: children and other housing: house Smoking Status: Former smoker how long ago did patient quit smokin months ago alcohol intake: never substance use type: does not use caffeine: No what type of physical activity do you participate in: none ROS ROS ED Constitutional Constitutional ED: Denies fatigue, fever(s), subjective or weakness Eyes Eyes: Denies blurry vision or other visual disturbances Cardiovascular Cardiovascular: Reports chest pain and orthopnea Respiratory/Chest Respiratory/Chest: Reports orthopnea; Denies cough or dyspnea Gastrointestinal Gastrointestinal: Denies abdominal pain, nausea or vomiting Genitourinary Genitourinary ED: Denies decreased urination or dysuria Musculoskeletal Musculoskeletal: Reports other Details: no leg swelling ; Denies extremity pain Integumentary Denies new lesions or rash Neurologic Neurologic: Denies paresthesias or weakness Psychiatric Psychiatric: Denies anxiety or depression Hematologic/Lymphatic Hematologic/Lymphatic: Denies easy bleeding or easy bruising EXAM Physical Exam Const Vital Signs: 08/22/20 08:05 08/22/20 08:11 08/22/20 09:15 Temperature 97.7 F L Temperature Source Oral Pulse Rate 60 60 Respiratory Rate 15 19 H Respiratory Effort Normal Non-Labored Blood Pressure 161/82 H 167/61 H Blood Pressure Mean 108 96 Pulse Ox 94 95 Oxygen Delivery Method Nasal Cannula Nasal Cannula Nasal Cannula Oxygen Flow Rate (L/min) 1.5 2 1.5 08/22/20 10:13 08/22/20 11:02 Temperature Temperature Source Pulse Rate 60 60 Respiratory Rate 14 16 Respiratory Effort Blood Pressure 114/64 Blood Pressure Mean 80 Pulse Ox 97 92 Oxygen Delivery Method Nasal Cannula Room Air Oxygen Flow Rate (L/min) Positive alert and oriented x3 HEENT Reports normocephalic and moist mucous membranes normocephalic Mouth ED: Yes moist mucous membranes normal Eyes PERRL and EOMs intact bilaterally General Eye ED: Yes normal appearance of both eyes Pupil: PERRL Neck supple and no JVD Lymph Lymphatic: no lymphadenopathy noted Chest Wall inspection of chest normal and palpation of chest normal Resp normal respiratory effort and normal air movement Effort and Inspection: Negative for respiratory distress Auscultation: diminished lung sounds Cardio regular rate and regular rhythm Peripheral Pulses: pulses 2+ throughout GI normal to inspection, nondistended, normoactive bowel sounds, non-tender and non-distended Back/Spine no CVA tenderness and normal to inspection Extremity normal to inspection and full ROM General Extremety ED: Negative for edema or pulses abnormal General Extremity: Negative for edema or pulses abnormal Neuro oriented x3, moves all extremities and no focal motor deficits Sensorium / Orientation: awake Psych mental status grossly normal and thought process normal Mood & Affect: anxious and tearful Skin no rashes or lesions noted and no petechiae Heart Score History: Slightly/Non-Suspicious ECG: Nonspecific Repolarization Age: >/= 65 years Risk Factors: >/= 3 Risk Factors or History of CAD Troponin: </= Normal Limit Score: 5 MDM MDM MDM Narrative Medical decision making narrative: Patient is evaluated for chest tightness and discomfort since last night. She is very anxious. She does not have any acute EKG changes. Troponins negative x2. proBNP is elevated but actually trending down from 2 months ago. Her chest x-ray shows no acute process and improvement of pulmonary edema. Patient is ambulated on room air and stays at 98%. From a cardiac standpoint I think her work-up is largely negative. She is on long-term anticoagulation has not missed any doses am not worried about a PE. I do not think she requires admission for this chest discomfort as I think this is more anxiety related. Patient is given dose of Ativan and then Benadryl. Her daughters at the bedside who is wishing to try buspirone for her. Patient is previously been on Seroquel which she had an adverse reaction to. I discussed with PCP on-call, Dr. Wesley who was very agreeable with this plan. Patient be started on BuSpar 5 mg twice a day and given first dose in the emergency room. Patient is evaluated by case management in the ER offer her anxiety. She is safe to go home I do not think she requires [facility] psych at this time. Her PCP does tell me that she is currently under evaluation for cognitive decline/dementia. Daughter and patient are agreeable with this plan of care. Patient is given further local resources. Case is discussed with cardiology on- call, Dr. Carbajal. At this time we both agree that she does not need inpatient cardiac evaluation. In addition patient is currently pain-free. Patient is counseled on signs and symptoms requiring return to the emergency room. Patient verbalizes agreement and understand this plan. Patient discharged home in stable and improved condition. Lab Data Labs: Laboratory Results - last 24 hr 08/22/20 08/22/20 08/22/20 08:05 08:05 08:05 WBC 9.0 RBC 4.06 L Hgb 10.3 L Hct 33.9 L MCV 83.5 MCH 25.4 L MCHC 30.4 L RDW Std Deviation 51.8 H RDW Coeff of Natalie 17.1 H Plt Count 242 MPV 10.7 Immature Gran % (Auto) 0.300 Neut % (Auto) 79.5 H Lymph % (Auto) 10.3 L [place] % (Auto) 6.9 Eos % (Auto) 2.6 Baso % (Auto) 0.4 Absolute Neuts (auto) 7.1 Absolute Lymphs (auto) 0.92 Nucleated RBC % 0 Sodium 138 Potassium 4.6 Chloride 103 Carbon Dioxide 28.0 Anion Gap 7 BUN 22 H Creatinine 1.06 H Estim Creat Clear Calc 38.50 Est GFR (MDRD) Af Amer 66 Est GFR (MDRD) Non-Af 54 L BUN/Creatinine Ratio 20.8 H Glucose 109 H Calcium 8.7 Troponin I < 0.015 B-Natriuretic Peptide 1536.0 H 08/22/20 11:15 WBC RBC Hgb Hct MCV MCH MCHC RDW Std Deviation RDW Coeff of Natalie Plt Count MPV Immature Gran % (Auto) Neut % (Auto) Lymph % (Auto) [place] % (Auto) Eos % (Auto) Baso % (Auto) Absolute Neuts (auto) Absolute Lymphs (auto) Nucleated RBC % Sodium Potassium Chloride Carbon Dioxide Anion Gap BUN Creatinine Estim Creat Clear Calc Est GFR (MDRD) Af Amer Est GFR (MDRD) Non-Af BUN/Creatinine Ratio Glucose Calcium Troponin I < 0.015 B-Natriuretic Peptide Radiography Chest X-Ray - ED: 1 View, Read by ED Physician, Read by Radiologist and No Acute Disease Diagnostic Testing: Radiology Impression Chest X-Ray 08/22/20 08:20 IMPRESSION: Mild residual increased interstitial markings in both lungs with areas of confluence as described. Superimposed CHF should be ruled out. Electronically Signed: Brown Yanes MD at 8:43 EDT , Service support , Rhythm Strip Rhythm Strip: Paced Rate: 60 Ectopy: None EKG Initial EKG: Attestation: I personally reviewed and interpreted this EKG as follows: Interpretation: Paced Comments: Atrial paced rhythm at a rate of 60 Left axis deviation T wave inversions in the lateral precordial leads No change compared to prior EKG on 08/03/2020 Treatment and Re-Evaluation Comments:: Cardiac and CHF work-up largely negative. Patient given aspirin, Ativan and Benadryl. On reevaluation she has resolution of her chest pain and is much [place]. Evaluated by case management. Case discussed with cardiology as well as PCP on-call. Discharge Plan Triage Chief Complaint: Chest Pain ED Provider: Veronica Navarro Dx/Rx/DC Orders Clinical Impression: Intermittent chest pain, Anxiety Instructions: ED Anxiety Reaction, ED Chest Pain, Uncertain Cause Prescriptions: New buspirone 5 mg tablet 5 mg PO BID Qty: 20 RF: 0 No Action atorvastatin 40 mg tablet 40 mg PO QHS RF: 0 famotidine 20 mg tablet 20 mg PO DAILY RF: 0 dicyclomine 10 mg capsule 10 mg PO 4X/DAY RF: 0 amiodarone 200 mg tablet 200 mg PO DAILY RF: 0 clopidogrel 75 MG tablet 75 mg PO QHS RF: 0 potassium chloride 20 MEQ tablet extended release 20 meq PO BID RF: 0 rotigotine 2 MG patch 2 mg TOPICAL DAILY RF: 0 metoprolol tartrate 100 MG tablet 100 mg PO BID RF: 0 isosorbide mononitrate 60 MG tablet extended release 24 hr 60 mg PO DAILY RF: 0 rivaroxaban 20 MG tablet 20 mg PO DAILY@1700 RF: 0 gabapentin 100 MG capsule 300 mg PO TIDCM RF: 0 mirtazapine 30 mg tablet 30 mg PO QHS RF: 0 albuterol sulfate 90 mcg/actuation HFA aerosol inhaler 1 - 2 puff INHALATION Q4H PRN PRN (Reason: Dyspnea, wheezing) Qty: 1 RF: 6 fluticasone propion-salmeterol 500-50 mcg/dose blister with device 1 inh INHALATION BID Qty: 60 RF: 6 furosemide 40 mg tablet 40 mg PO DAILY RF: 0 amlodipine 2.5 mg tablet 2.5 mg PO DAILY Qty: 30 RF: 11 Primary Care Provider: Feng Hayes Referrals: Feng Hayes MD [Primary Care Provider] - Jaime Treviño MD [STAFF PHYSICIAN] - Disposition Disposition: Home, self care
[2020-08-22 10:13] VITALS: BP 114/64; PULSE 60; RESP 14; O2SAT 97
--- NOTE | 2020-08-22 10:35 | CM.ED ---
SOCIAL WORK Referral Source: Dr. Navarro Reason for Consult: Resources Dr. Navarro requesting this worker meet with patient to discuss mental health resources. Patient with anxiety. Met with patient in room. Introduced role and reason for referral. Patient on the phone with daughter. Patient reports increase in anxiety due to medical issues. Patient discussed frustrations with PCP and is thinking about changing. Education provided on local counseling services and provided list of local primary care physicians. Daughter reports patient is currently following with Malena Mitchell and will follow up. Plan: Patient to return home with daughter, resources provided Steph Baker MSW, [employer]
[2020-08-22 11:02] VITALS: PULSE 60; RESP 16; O2SAT 92
[2020-08-22] MEDS: DiphenhydrAMINE 50 MG/ML Syringe 25 MG IV (11:48)
[2020-08-22 12:20] VITALS: BP 161/82; PULSE 60; RESP 22; O2SAT 92
[2020-08-22] MEDS: busPIRone 5 MG Tablet PO (12:40)
== END 2020-08-22 12:41 | disposition home or self-care (01) ==
PROVIDERS: Emergency Provider Emergency Medicine; PCP Family Medicine
DX: R07.89 Other chest pain (principal); F41.9 Anxiety disorder, unspecified; E66.9 Obesity, unspecified; Z68.28 Body mass index [BMI] 28.0-28.9, adult; E78.5 Hyperlipidemia, unspecified; F32.9 Major depressive disorder, single episode, unspecified; G47.33 Obstructive sleep apnea (adult) (pediatric); I13.0 Hypertensive heart and chronic kidney disease with heart failure and stage 1 through stage 4 chronic kidney disease, or unspecified chronic kidney disease; I50.43 Acute on chronic combined systolic (congestive) and diastolic (congestive) heart failure; N18.4 Chronic kidney disease, stage 4 (severe); I49.5 Sick sinus syndrome; E87.6 Hypokalemia; I48.0 Paroxysmal atrial fibrillation; I71.4 Abdominal aortic aneurysm, without rupture; I73.9 Peripheral vascular disease, unspecified; J44.9 Chronic obstructive pulmonary disease, unspecified; I42.8 Other cardiomyopathies; I25.2 Old myocardial infarction; K58.9 Irritable bowel syndrome, unspecified; I25.119 Atherosclerotic heart disease of native coronary artery with unspecified angina pectoris; Z86.16 Personal history of COVID-19; Z86.19 Personal history of other infectious and parasitic diseases; Z87.01 Personal history of pneumonia (recurrent); Z79.01 Long term (current) use of anticoagulants; Z79.02 Long term (current) use of antithrombotics/antiplatelets; Z79.899 Other long term (current) drug therapy; Z87.891 Personal history of nicotine dependence
CPT/HCPCS: 71045; 80048; 83880; 84484; 85025; 93005; 96374; 96375; 99285; J7030; A4216

== ENCOUNTER → 2020-09-25 16:23 | Outpatient (CLI) | payer MEDICARE, MEDICAID, SELFPAY ==
[2019-07-16 09:26] VITALS: BMI 29.5
[2020-09-22 08:17] VITALS: BMI 28.9
== END ==
PROVIDERS: PCP Family Medicine; Visit Provider Nurse Practitioner Acute Care
DX: G47.33 Obstructive sleep apnea (adult) (pediatric) (principal)

== ENCOUNTER → 2020-10-16 09:46 | Outpatient (CLI) | payer MEDICARE, MEDICAID, SELFPAY ==
[2019-07-16 09:26] VITALS: BMI 29.5
[2020-10-06 09:33] VITALS: BMI 28.9
--- NOTE | 2020-10-16 09:47 | CDU_ITS ---
Reason For Study: CAROTID BRUIT Rt. Velocities/BP Lt. Velocities/BP Prox CCA 91.7/16.0 cm/sec. Prox CCA 69.8/7.2 cm/sec. Mid CCA 59.1/13.8 cm/sec. Mid CCA 69.8/13.8 cm/sec. Dist CCA 40.2/18.1 cm/sec. Dist CCA 60.0/12.7 cm/sec. Prox ICA 42.4/11.0 cm/sec. Prox ICA 86.9/23.0 cm/sec. Mid ICA 52.9/14.5 cm/sec. Mid ICA 94.7/18.5 cm/sec. Dist ICA 90.8/27.0 cm/sec. Dist ICA 118.0/21.2 cm/sec. Rt. ICA/CCA = 90.8/91.7=1.0. Lt. ICA/CCA = 118.0/69.8=1.7. Prox ECA 90.7/4.0 cm/sec. Prox ECA 165.5/10.2 cm/sec. Rt. Vert. 71.0/12.7 cm/sec. Lt. Vert. 43.1/12.9 cm/sec. Right Extracranial There is heterogeneous, smooth atherosclerotic plaque noted in the right common carotid artery. There is heterogeneous, irregular atherosclerotic plaque noted in the right internal carotid artery. There is intimal thickening but no significant atherosclerotic plaque noted in the right external carotid artery. Antegrade flow is noted in the right vertebral artery. Left Extracranial There is homogeneous, smooth atherosclerotic plaque noted in the left common carotid artery. There is heterogeneous, smooth atherosclerotic plaque noted in the left internal carotid artery. The tortuous nature of the left internal carotid artery may result in flow velocities overestimating the degree of stenosis. There is heterogeneous, irregular atherosclerotic plaque noted in the left external carotid artery. Antegrade flow is noted in the left vertebral artery. There is heterogeneous, irregular atherosclerotic plaque noted in the left bulb. VL/Carotid Duplex Ultrasound Interpretation Summary Mild irregular calcific plaque of the right internal carotid artery with less t baeza 50% stenosis Less than 50% stenosis right external carotid artery Irregular calcific plaque in the proximal left internal carotid artery with tor tuosity of the left internal carotid artery. Less than 50% stenosis left internal carotid artery Less than 50% stenosis left external carotid Patent and antegrade vertebral arteries bilaterally Ordering Physician: Evelyn Collier Referring Physician: Morgan Hayes Performed By: Laura Farah RVT, RDCS and Student
== END ==
PROVIDERS: PCP Family Medicine; Referring Provider Physician Assistant Medical; Visit Provider Physician Assistant Medical
DX: R09.89 Other specified symptoms and signs involving the circulatory and respiratory systems (principal)
CPT/HCPCS: 93880

== ENCOUNTER 2020-11-21 18:30 | Observation (INO) | payer MEDICARE, MEDICAID, SELFPAY ==
[2019-07-16 09:26] VITALS: BMI 29.5
[2020-11-21 18:31] VITALS: BP 142/61; PULSE 63; RESP 16; TEMP 36.8; O2SAT 98; BMI 24.7
[2020-11-21 21:32] LABS: Absolute Lymphocyte Count 0.98 X10^3/uL (0.83-4.51); Absolute Neutrophil Count 2.9 X10^3/uL (2.0-7.7); Basophil# 0.02 X10^3/uL; Basophil% 0.4 % (0-1); Eosinophil# 0.11 X10^3/uL; Eosinophils% 2.5 % (0-5); Hematocrit 21.5 % (37-47); Hemoglobin 6.7 g/dL (12.0-15.0); Lymphocyte # 0.98 X10^3/ul (0.83-4.51); Mean Corp Hgb Conc 31.2 g/dL (32-36); Mean Corpuscular Hgb 27.2 pg (27.0-32.0); Mean Corpuscular Volume 87.4 fL (81-99); Mean Platelet Vol. 10.3 fl (6.2-12.0); Monocyte# 0.41 X10^3/uL; Monocyte% 9.2 % (0-10); NRBC Flagged by Analyzer 0 % (0-5); Neutrophil # 2.93 X10^3/uL (2.7-7.7); Neutrophil % 65.7 % (47-70); Platelet Count 186 K/mm3 (150-450); RBC Distribution Width CV 12.5 % (11.6-14.6); RBC Distribution Width SD 39.8 fl (35.1-43.9); Red Blood Count 2.46 M/mm3 (4.2-5.4); White Blood Count 4.5 K/mm3 (4.4-11.0)
[2020-11-21 21:40] LABS: Anion Gap 2 (5-15); BUN 21 mg/dL (7-18); BUN/Creat Ratio 17.6 RATIO (10-20); Calcium,Total 8.2 mg/dL (8.5-10.1); Chloride 106 mmol/L (98-107); Creatinine, Serum 1.19 mg/dL (0.55-1.02); EST Glomerular Filtration Rate 47 mL/min (>60); Est Glom Filt Rate - Afr Amer 57 mL/min (>60); Estimated Creatinine Clearance 34.29 ml/min; Glucose 119 mg/dL (74-106); Potassium 3.7 mmol/L (3.5-5.1); Sodium Level 139 mmol/L (136-145)
[2020-11-21 22:12] VITALS: BP 148/58; PULSE 60
--- NOTE | 2020-11-21 22:15 | EKG12_ITS ---
Test Reason : ABD PAIN Blood Pressure : / mmHG Vent. Rate : 060 BPM Atrial Rate : 060 BPM P-R Int : 244 ms QRS Dur : 110 ms QT Int : 464 ms P-R-T Axes : 054 -07 014 degrees QTc Int : 464 ms Atrial-paced rhythm with prolonged AV conduction Incomplete left bundle branch block Abnormal ECG Confirmed by GILBERT JEAN-BAPTISTE, FRANCIS ([id number]), scientific publications editor MAREN GRIMES ([id number]) on 11/27/2020 12:52:06 PM Referred By: NAOMI Confirmed By:FRANCIS HUNT MD
--- NOTE | 2020-11-21 22:15 | ED.VIS.GI ---
HPI HPI - GI History of Present Illness Chief Complaint: Abd Pain Informant: patient Narrative Narrative: Sent in hemoglobin after lab work from urgent care today 7.4. Reports baseline hemoglobin 10-11. With noting black stools tarry stools for the past month at least once a day. She does not take iron. She is on Plavix and Xarelto history of coronary stents and paroxysmal atrial fibrillation. Her last doses was this morning. Denies any chest pains. Denies exertional dyspnea. Denies lightheaded symptoms. Denies history of upper endoscopies in the past. She states colonoscopy years ago. Reports 10 coronary stents in the past the last time this past summer. She does have a pacemaker. Prior similar symptoms: No PFSH PFS Medical History Abdominal aortic aneurysm (AAA) Acute on chronic combined systolic (congestive) and diastolic (congestive) heart failure Acute on chronic diastolic (congestive) heart failure Angina pectoris Anxiety and depression Atherosclerotic heart disease of [place] coronary artery without angina pectoris Atrial fibrillation with RVR Atrial fibrillation with RVR Chronic kidney disease, stage 4 (severe) Claudication in peripheral vascular disease Congestive heart failure (CHF) COPD (chronic obstructive pulmonary disease) COVID-19 (01/01/20) Dyspnea on exertion Emphysema of lung Essential (primary) hypertension HLD (hyperlipidemia) Hypokalemia IBS (irritable bowel syndrome) Nicotine dependence Non-ischemic cardiomyopathy Non-STEMI (non-ST elevated myocardial infarction) (03/19/19) Obesity BELLE (obstructive sleep apnea) PAD (peripheral artery disease) Paroxysmal atrial fibrillation Peripheral vascular occlusive disease Persistent atrial fibrillation Pneumonia due to 2019 novel coronavirus (01/01/20) Sepsis (01/01/20) Sinus pause Smoking greater than 30 pack years Tachy-erica syndrome Unstable angina pectoris due to coronary arteriosclerosis Wheezing Home Medications atorvastatin 40 mg tablet 40 mg PO QHS tablet 07/09/19 [History Last Taken 06/05/20] dicyclomine 10 mg capsule 10 mg PO 4X/DAY 07/09/19 [History Last Taken 06/06/20] famotidine 20 mg tablet 20 mg PO DAILY 07/09/19 [History Last Taken 07/18/20] clopidogrel 75 mg PO QHS 08/30/19 [History Last Taken 07/18/20] potassium chloride 20 meq PO BID 04/22/20 [History Last Taken 06/06/20] isosorbide mononitrate 60 mg PO DAILY 06/06/20 [History Last Taken 07/18/20] metoprolol tartrate 100 mg PO BID 06/06/20 [History Last Taken 07/18/20] rivaroxaban 20 mg PO DAILY@1700 06/06/20 [History Last Taken 07/18/20] albuterol sulfate 90 mcg/actuation aerosol inhaler 1 - 2 puff INHALATION Q4H PRN PRN #1 inhaler 07/06/20 [Rx Last Taken Unknown] amiodarone 200 mg tablet 200 mg PO DAILY tablet 07/06/20 [History Last Taken 07/18/20] fluticasone 500 mcg-salmeterol 50 mcg/dose blistr powdr for inhalation 1 inh INHALATION BID #60 each 07/06/20 [Rx Last Taken Unknown] furosemide 40 mg tablet 40 mg PO DAILY tab 08/04/20 [History Last Taken Unknown] amlodipine 2.5 mg tablet 2.5 mg PO DAILY #30 tab 08/18/20 [Rx Last Taken Unknown] gabapentin See Rx Instructions .ROUTE .COMPLEX 08/22/20 [History Last Taken Unknown] BuSpar See Rx Instructions .ROUTE .COMPLEX 09/21/20 [History Last Taken Unknown] multivitamin 1 tab PO DAILY 10/06/20 [History Last Taken Unknown] Allergy/AdvReac Type Severity Reaction Status Date / Time lisinopril Allergy tongue Verified 11/21/20 18:34 swelling Family History Father Heart disease Hypertension Seizures Sister CVA (cerebral vascular accident) Hypertension Other Family history of hypertension Surgical History History of angioplasty of peripheral vessel History of bilateral leg stents History of bunionectomy of right great toe History of cardioversion (07/18/20) History of colonoscopy (06/2018) History of coronary artery stent placement (03/18/19) History of hysterectomy History of left heart catheterization (11/25/19) History of permanent cardiac pacemaker placement (03/27/20) History of tonsillectomy Hx of APLL Hx of hysterectomy Status post left foot surgery Social History household members: children and other housing: house Smoking Status: Former smoker how long ago did patient quit smokin months ago alcohol intake: never substance use type: does not use caffeine: No what type of physical activity do you participate in: none ROS ROS ED Constitutional Constitutional ED: Denies chills, fever(s) or sweats Eyes Eyes: Denies change in vision ENT ENT ED: Denies dysphagia or sore throat Cardiovascular Cardiovascular: Denies chest pain, leg edema, palpitations or racing heartbeat Respiratory/Chest Respiratory/Chest: Denies cough, dyspnea or dyspnea on exertion Gastrointestinal Gastrointestinal: Reports melena; Denies abdominal pain, diarrhea, nausea or vomiting Genitourinary Genitourinary ED: Denies dysuria, hematuria or urinary frequency Musculoskeletal Musculoskeletal: Denies back pain, extremity pain or neck pain Integumentary Denies rash or wounds Neurologic Neurologic: Denies headache(s), paresthesias or weakness EXAM Physical Exam Const Vital Signs: 11/21/20 18:31 11/21/20 22:12 11/21/20 22:17 Temperature 98.3 F Temperature Source Temporal Pulse Rate 63 60 Pulse Rate [Lying] 60 Pulse Rate [Sitting] 60 Pulse Rate [Standing] 60 Respiratory Rate 16 Blood Pressure 142/61 H 148/58 H Blood Pressure [Lying] 148/58 H Blood Pressure [Sitting] 143/58 H Blood Pressure [Standing] 137/54 H Blood Pressure Mean 88 88 Blood Pressure Mean [Lying] 88 Blood Pressure Mean [Sitting] 86 Blood Pressure Mean [Standing] 81 Pulse Ox 98 Oxygen Delivery Method Room Air Oxygen Flow Rate (L/min) 11/22/20 00:20 11/22/20 00:22 11/22/20 01:13 Temperature 97.9 F Temperature Source Oral Pulse Rate 60 Pulse Rate [Lying] Pulse Rate [Sitting] Pulse Rate [Standing] Respiratory Rate 14 Blood Pressure 142/56 H Blood Pressure [Lying] Blood Pressure [Sitting] Blood Pressure [Standing] Blood Pressure Mean 84 Blood Pressure Mean [Lying] Blood Pressure Mean [Sitting] Blood Pressure Mean [Standing] Pulse Ox 86 100 100 Oxygen Delivery Method Nasal Cannula Nasal Cannula Venturi Mask Oxygen Flow Rate (L/min) 3 3 11/22/20 01:28 Temperature 98.6 F Temperature Source Oral Pulse Rate 60 Pulse Rate [Lying] Pulse Rate [Sitting] Pulse Rate [Standing] Respiratory Rate 16 Blood Pressure 160/63 H Blood Pressure [Lying] Blood Pressure [Sitting] Blood Pressure [Standing] Blood Pressure Mean 95 Blood Pressure Mean [Lying] Blood Pressure Mean [Sitting] Blood Pressure Mean [Standing] Pulse Ox 100 Oxygen Delivery Method Oxygen Flow Rate (L/min) Positive well nourished and well developed General Appearance ED: well developed, NAD and pallor HEENT Reports moist mucous membranes normocephalic and atraumatic Eyes PERRL, EOMs intact bilaterally and conjunctivae normal General Eye ED: Yes normal appearance of both eyes and pale conjunctiva Neck no lymphadenopathy and supple General: Negative for tenderness Chest Wall Chest: Negative for tenderness Resp normal respiratory effort and normal air movement Effort and Inspection: symmetric chest movement; Negative for respiratory distress Cardio regular rate, regular rhythm and no murmurs Peripheral Pulses: pulses 2+ throughout GI normal to inspection, nondistended, normoactive bowel sounds and non-tender GI Narrative: Rectal exam no hemorrhoids, black stools guaiac pending. Palpation: Negative for guarding or rebound tenderness present Back/Spine no CVA tenderness and no thoracic nor lumbar tenderness Extremity normal to inspection General Extremety ED: Negative for edema or tenderness General Extremity: Negative for edema Neuro oriented x3 and no sensory deficits noted Sensorium / Orientation: awake and alert Skin no rashes or lesions noted and no wounds General Skin Exam: pallor MDM MDM MDM Narrative Medical decision making narrative: Patient hemodynamically stable orthostatics was negative. Stool guaiac is positive. Hemoglobin 6.7. She is ordered for 2 units of blood to be transfused slowly with her CHF history. Lasix to be given in between. Protonix 80 mg IV given. I discussed with my hospitalist who requested specialist involvement. I discussed with on-call surgeon Dr. Carlisle, with her being on Plavix, requested I speak with labs for immediate platelets if needed. This would not be immediately available therefore he states she would need to be transferred. This was updated and spoke with the patient. INR is 4.1 she is not on Coumadin. She is on Xarelto her last dose of the medications were yesterday morning. I spoke with transfer line [facility] with Dr. Bailey, medicine [facility]. Accepts the patient when bed is available. Lab Data Labs: Laboratory Results - last 24 hr 11/21/20 11/21/2011/21/21 21:15 21:15 21:15 WBC 4.5 RBC 2.46 L Hgb 6.7 L Hct 21.5 L MCV 87.4 MCH 27.2 MCHC 31.2 L RDW Std Deviation 39.8 RDW Coeff of Natalie 12.5 Plt Count 186 MPV 10.3 Immature Gran % (Auto) 0.200 Neut % (Auto) 65.7 Lymph % (Auto) 22.0 [place] % (Auto) 9.2 Eos % (Auto) 2.5 Baso % (Auto) 0.4 Absolute Neuts (auto) 2.9 Absolute Lymphs (auto) 0.98 Nucleated RBC % 0 PT 38.8 H INR 4.1 H* APTT 36.3 H Sodium 139 Potassium 3.7 Chloride 106 Carbon Dioxide 31.0 Anion Gap 2 L BUN 21 H Creatinine 1.19 H Estim Creat Clear Calc 34.29 Est GFR (MDRD) Af Amer 57 L Est GFR (MDRD) Non-Af 47 L BUN/Creatinine Ratio 17.6 Glucose 119 H Calcium 8.2 L Blood Type Antibody Screen Crossmatch 11/21/20 21:15 WBC RBC Hgb Hct MCV MCH MCHC RDW Std Deviation RDW Coeff of Natalie Plt Count MPV Immature Gran % (Auto) Neut % (Auto) Lymph % (Auto) [place] % (Auto) Eos % (Auto) Baso % (Auto) Absolute Neuts (auto) Absolute Lymphs (auto) Nucleated RBC % PT INR APTT Sodium Potassium Chloride Carbon Dioxide Anion Gap BUN Creatinine Estim Creat Clear Calc Est GFR (MDRD) Af Amer Est GFR (MDRD) Non-Af BUN/Creatinine Ratio Glucose Calcium Blood Type A POSITIVE Antibody Screen NEGATIVE Crossmatch See Detail EKG Initial EKG: Attestation: I personally reviewed and interpreted this EKG as follows: Comments: Atrial paced rate of 60, no ST changes, isolated T wave inversion lead III. Discharge Plan Triage Chief Complaint: Abd Pain ED Provider: Raffi Huitron Dx/Rx/DC Orders Clinical Impression: Acute upper GI bleed, Paroxysmal atrial fibrillation, History of coronary artery stent placement, Acute blood loss anemia Prescriptions: No Action atorvastatin 40 mg tablet 40 mg PO QHS RF: 0 famotidine 20 mg tablet 20 mg PO DAILY RF: 0 dicyclomine 10 mg capsule 10 mg PO 4X/DAY RF: 0 amiodarone 200 mg tablet 200 mg PO DAILY RF: 0 multivitamin Tablet 1 tab PO DAILY RF: 0 clopidogrel 75 MG tablet 75 mg PO QHS RF: 0 potassium chloride 20 MEQ tablet extended release 20 meq PO BID RF: 0 BuSpar 5 mg See Rx Instructions .ROUTE .COMPLEX RF: 0 metoprolol tartrate 100 MG tablet 100 mg PO BID RF: 0 isosorbide mononitrate 60 MG tablet extended release 24 hr 60 mg PO DAILY RF: 0 rivaroxaban 20 MG tablet 20 mg PO DAILY@1700 RF: 0 gabapentin 100 MG capsule See Rx Instructions .ROUTE .COMPLEX RF: 0 albuterol sulfate 90 mcg/actuation HFA aerosol inhaler 1 - 2 puff INHALATION Q4H PRN PRN (Reason: Dyspnea, wheezing) Qty: 1 RF: 6 fluticasone propion-salmeterol 500-50 mcg/dose blister with device 1 inh INHALATION BID Qty: 60 RF: 6 furosemide 40 mg tablet 40 mg PO DAILY RF: 0 amlodipine 2.5 mg tablet 2.5 mg PO DAILY Qty: 30 RF: 11 Primary Care Provider: Cem Jewell Referrals: Cem Jewell MD [Primary Care Provider] - Disposition Disposition: Transfer to Another Type [facility]
[2020-11-21 22:17] VITALS: BP 137/54; BP 143/58; BP 148/58; PULSE 60
[2020-11-21 22:54] LABS: Prothrombin Time (Protime)PT. 38.8 SECONDS (11.7-14.9)
[2020-11-21 22:55] LABS: Partial Thromboplast Time 36.3 Seconds (24.1-36.2)
[2020-11-21 23:00] LABS: International Normalized Ratio 4.1
[2020-11-22] VITALS (21 sets, daily range): BP systolic 132–190; BP diastolic 47–79; PULSE 60–67; RESP 11–18; TEMP 36.6–37.4; O2SAT 86–100; BMI 24.8; BMI 24.7
[2020-11-22] MEDS: Furosemide 20 MG/2 ML VIAL IV (03:43)
--- NOTE | 2020-11-22 07:12 | HP.PCM.HOS_ITS ---
HPI - General General Date of Admission: 11/22/20 HPI Narrative CURLY MORALES, is a 70 F with an extensive PMH as outlined who presents with a complaint of low hemoglobin, per labs done at an urgent care center. She presented at the urgent care with a complaint of dark tarry stools for 1 month prior to admission, with no associated lightheadedness, dizziness, nausea or vomiting. She also complained of lower abdominal pain, but denied any over the counter pain meds. She hasnt had such symptoms in the past before. She is on plavix and xarelto due to a history of CAD s/o stents. Review of systems was otherwise negative. Hemoglobin on admission was 6.7. SHe was transfused with 2 units of PRBCs and is being managed for acute anemia due to probable UGI bleed. Plan was initially to transfer her to [facility] due to nonavailability of platelets in blood bank as she was on plavix. Per blood bank, we dont have platelets in house, but if needed, can be ordered and should arrive from [place] in ~ 2-3 hours. I discussed case with Dr Chu the surgeon medication aide today who agreed to evaluate patient on admission, and was ok with patient staying here. [facility] Medical History Abdominal aortic aneurysm (AAA) Acute on chronic combined systolic (congestive) and diastolic (congestive) heart failure Acute on chronic diastolic (congestive) heart failure Angina pectoris Anxiety and depression Atherosclerotic heart disease of [place] coronary artery without angina pectoris Atrial fibrillation with RVR Atrial fibrillation with RVR Chronic kidney disease, stage 4 (severe) Claudication in peripheral vascular disease Congestive heart failure (CHF) COPD (chronic obstructive pulmonary disease) COVID-19 (01/01/20) Dyspnea on exertion Emphysema of lung Essential (primary) hypertension HLD (hyperlipidemia) Hypokalemia IBS (irritable bowel syndrome) Nicotine dependence Non-ischemic cardiomyopathy Non-STEMI (non-ST elevated myocardial infarction) (03/19/19) Obesity BELLE (obstructive sleep apnea) PAD (peripheral artery disease) Paroxysmal atrial fibrillation Peripheral vascular occlusive disease Persistent atrial fibrillation Pneumonia due to 2019 novel coronavirus (01/01/20) Sepsis (01/01/20) Sinus pause Smoking greater than 30 pack years Tachy-erica syndrome Unstable angina pectoris due to coronary arteriosclerosis Wheezing Home Medications atorvastatin 40 mg tablet 40 mg PO QHS tablet 07/09/19 [History Last Taken 06/05/20] dicyclomine 10 mg capsule 10 mg PO 4X/DAY 07/09/19 [History Last Taken 06/06/20] famotidine 20 mg tablet 20 mg PO DAILY 07/09/19 [History Last Taken 07/18/20] clopidogrel 75 mg PO QHS 08/30/19 [History Last Taken 07/18/20] potassium chloride 20 meq PO BID 04/22/20 [History Last Taken 06/06/20] isosorbide mononitrate 60 mg PO DAILY 06/06/20 [History Last Taken 07/18/20] metoprolol tartrate 100 mg PO BID 06/06/20 [History Last Taken 07/18/20] rivaroxaban 20 mg PO DAILY@1700 06/06/20 [History Last Taken 07/18/20] albuterol sulfate 90 mcg/actuation aerosol inhaler 1 - 2 puff INHALATION Q4H PRN PRN #1 inhaler 07/06/20 [Rx Last Taken Unknown] amiodarone 200 mg tablet 200 mg PO DAILY tablet 07/06/20 [History Last Taken 07/18/20] fluticasone 500 mcg-salmeterol 50 mcg/dose blistr powdr for inhalation 1 inh INHALATION BID #60 each 07/06/20 [Rx Last Taken Unknown] furosemide 40 mg tablet 40 mg PO DAILY tab 08/04/20 [History Last Taken Unknown] gabapentin See Rx Instructions .ROUTE .COMPLEX 08/22/20 [History Last Taken Unknown] BuSpar 10 mg PO/SL TID 09/21/20 [History Last Taken Unknown] multivitamin 1 tab PO DAILY 10/06/20 [History Last Taken Unknown] amlodipine 2.5 mg PO DAILY 11/22/20 [History Last Taken Unknown] melatonin 10 mg PO QHS 11/22/20 [History Last Taken Unknown] trazodone 150 mg PO QHS 11/22/20 [History Last Taken Unknown] Allergy/AdvReac Type Severity Reaction Status Date / Time lisinopril Allergy tongue Verified 11/21/20 18:34 swelling Family History Father Heart disease Hypertension Seizures Sister CVA (cerebral vascular accident) Hypertension Other Family history of hypertension Surgical History History of angioplasty of peripheral vessel History of bilateral leg stents History of bunionectomy of right great toe History of cardioversion (07/18/20) History of colonoscopy (06/2018) History of coronary artery stent placement (03/18/19) History of hysterectomy History of left heart catheterization (11/25/19) History of permanent cardiac pacemaker placement (03/27/20) History of tonsillectomy Hx of APLL Hx of hysterectomy Status post left foot surgery Social History household members: children and other housing: house Smoking Status: Former smoker how long ago did patient quit smokin months ago alcohol intake: never substance use type: does not use caffeine: No what type of physical activity do you participate in: none ROS Constitutional Constitutional: Denies anorexia, change in weight, chills, fatigue, fever(s), malaise or weakness Eyes Eyes: Denies change in vision ENT HEENT: Denies dysphagia, headache(s), nasal discharge or sore throat Cardiovascular Cardiovascular: Denies chest pain, dyspnea on exertion, edema, lightheadedness, orthopnea, palpitations, paroxysmal nocturnal dyspnea, rapid heart rate or syncope Respiratory/Chest Respiratory/Chest: Denies cough, dyspnea, hemoptysis, shortness of breath at rest or shortness of breath with exertion Gastrointestinal Gastrointestinal: Denies abdominal pain or constipation Genitourinary Genitourinary: Denies burning urination, dysuria or urinary frequency Neurologic Neurologic: Denies confusion, dizziness, focal weakness or numbness Psychiatric Psychiatric: Denies anxiety Hematologic/Lymphatic Hematologic/Lymphatic: Reports anemia Vital Signs Vital Signs Vital Signs: 11/21/20 18:31 11/21/20 22:12 11/21/20 22:17 Temperature 98.3 F Temperature Source Temporal Pulse Rate 63 60 Pulse Rate [Lying] 60 Pulse Rate [Sitting] 60 Pulse Rate [Standing] 60 Respiratory Rate 16 Blood Pressure 142/61 H 148/58 H Blood Pressure [Lying] 148/58 H Blood Pressure [Sitting] 143/58 H Blood Pressure [Standing] 137/54 H Blood Pressure Mean 88 88 Blood Pressure Mean [Lying] 88 Blood Pressure Mean [Sitting] 86 Blood Pressure Mean [Standing] 81 Pulse Ox 98 Oxygen Delivery Method Room Air Oxygen Flow Rate (L/min) 11/22/20 00:20 11/22/20 00:22 11/22/20 01:13 Temperature 97.9 F Temperature Source Oral Pulse Rate 60 Pulse Rate [Lying] Pulse Rate [Sitting] Pulse Rate [Standing] Respiratory Rate 14 Blood Pressure 142/56 H Blood Pressure [Lying] Blood Pressure [Sitting] Blood Pressure [Standing] Blood Pressure Mean 84 Blood Pressure Mean [Lying] Blood Pressure Mean [Sitting] Blood Pressure Mean [Standing] Pulse Ox 86 100 100 Oxygen Delivery Method Nasal Cannula Nasal Cannula Venturi Mask Oxygen Flow Rate (L/min) 3 3 11/22/20 01:28 11/22/20 03:22 11/22/20 03:43 Temperature 98.6 F 98.1 F Temperature Source Oral Oral Pulse Rate 60 60 60 Pulse Rate [Lying] Pulse Rate [Sitting] Pulse Rate [Standing] Respiratory Rate 16 14 18 Blood Pressure 160/63 H 168/79 H 185/72 H Blood Pressure [Lying] Blood Pressure [Sitting] Blood Pressure [Standing] Blood Pressure Mean 95 108 109 Blood Pressure Mean [Lying] Blood Pressure Mean [Sitting] Blood Pressure Mean [Standing] Pulse Ox 100 96 99 Oxygen Delivery Method Nasal Cannula Nasal Cannula Oxygen Flow Rate (L/min) 3 11/22/20 03:54 11/22/20 04:09 11/22/20 04:19 Temperature 97.9 F 98.9 F 98.1 F Temperature Source Oral Oral Oral Pulse Rate 60 60 60 Pulse Rate [Lying] Pulse Rate [Sitting] Pulse Rate [Standing] Respiratory Rate 13 18 14 Blood Pressure 185/72 H 155/74 H 190/60 H Blood Pressure [Lying] Blood Pressure [Sitting] Blood Pressure [Standing] Blood Pressure Mean 109 101 103 Blood Pressure Mean [Lying] Blood Pressure Mean [Sitting] Blood Pressure Mean [Standing] Pulse Ox 99 99 99 Oxygen Delivery Method Nasal Cannula Room Air Nasal Cannula Oxygen Flow Rate (L/min) 11/22/20 05:09 Temperature Temperature Source Pulse Rate 60 Pulse Rate [Lying] Pulse Rate [Sitting] Pulse Rate [Standing] Respiratory Rate 15 Blood Pressure 132/47 H Blood Pressure [Lying] Blood Pressure [Sitting] Blood Pressure [Standing] Blood Pressure Mean 75 Blood Pressure Mean [Lying] Blood Pressure Mean [Sitting] Blood Pressure Mean [Standing] Pulse Ox Oxygen Delivery Method Oxygen Flow Rate (L/min) Weight Weight: 135 lb Body Mass Index (BMI) 24.7 Physical Exam Const alert, oriented x3 and no apparent distress General Appearance: cooperative HEENT normocephalic, head/scalp atraumatic, hearing grossly normal bilaterally and azael st oral mucous membranes Eyes PERRL, EOMs intact bilaterally and conjunctivae normal Neck no lymphadenopathy Resp normal respiratory effort, no retractions, no use of accessory muscles and clear to auscultation bilaterally Cardio regular rate, regular rhythm, S1 normal heart sound, S2 normal heart sound and no murmurs GI normal to inspection, nondistended, normoactive bowel sounds, soft to palpation, non-tender and non-distended Extremity normal to inspection, full ROM and no clubbing, cyanosis or edema Peripheral Pulses: Yes pulses 2+ throughout Skin no rashes or lesions noted Neuro oriented x3, CN's II-XII intact bilaterally and moves all extremities Sensorium / Orientation: awake and alert Motor Exam: strength 5/5 throughout Psych affect normal Results Lab / Micro Data Result Diagrams: 11/22/20 14:40 11/21/20 21:15 Labs: Laboratory Results - last 24 hr 11/21/20 21:15: WBC 4.5, RBC 2.46 L, Hgb 6.7 L, Hct 21.5 L, MCV 87.4, MCH 27.2, MCHC 31.2 L, RDW Std Deviation 39.8, RDW Coeff of Natalie 12.5, Plt Count 186, MPV 10.3, Immature Gran % (Auto) 0.200, Neut % (Auto) 65.7, Lymph % (Auto) 22.0, [place] % (Auto) 9.2, Eos % (Auto) 2.5, Baso % (Auto) 0.4, Absolute Neuts (auto) 2.9, Absolute Lymphs (auto) 0.98, Nucleated RBC % 0 11/21/20 21:15: Sodium 139, Potassium 3.7, Chloride 106, Carbon Dioxide 31.0, Anion Gap 2 L, BUN 21 H, Creatinine 1.19 H, Estim Creat Clear Calc 34.29, Est GFR (MDRD) Af Amer 57 L, Est GFR (MDRD) Non-Af 47 L, BUN/Creatinine Ratio 17.6, Glucose 119 H, Calcium 8.2 L 11/21/20 21:15: PT 38.8 H, INR 4.1 H*, APTT 36.3 H 11/21/20 21:15: Blood Type A POSITIVE, Antibody Screen NEGATIVE, Crossmatch See Detail Micro: Microbiology 11/21/20 22:25 Nasal Secretion SARS-CoV-2 Antigen (Rapid) - Final 11/21/20 22:25 Stool Stool Occult Blood (HOLLI) - Final Occult Blood Positive Assessment & Plan Assessment/Plan (1) Acute upper GI bleed: (2) Acute blood loss anemia: PLAN: #Acute on chronic anemia due to UGI bleed * admitted with a complaint of dark tarry stools for one month prior to admission * Hb at urgent care was 7.4; Hb on admission in ED was 6.7 * being transfused wtih 2 units of PRBCs * hold xarelto; general surgery ok with patient being on plavix in light of her history of 10 stents. * IV pantoprazole drip. * hydrate gently with IVF * trend Hb * consult general surgery: Dr Chu informed * for EGD tomorrow * #UGI bleed: as above #CAD s/p stents * On imdur and statin * per general surgeyr, ok to continue plavix in light of her extensive cardiac history and having [address]. * #Persistent afib: xarelto on hold. On amiodarone and metoprolol #Hypertension: on amlodipine and metoprolol DVT prophylaxis: SCDs. No anticoagulation o/a of GI bleed. COde status: full code * Patient and her daughter counseled extensively about different types of CODE STATUS including full code, DNR CCA and DNR CCA. Patient elects to be full code. * Total vzal-vl-huok time 17 minutes. Charges/Coding Visit Charges Inpatient E&M: 70343 Init Hosp L3 Procedures Hospitalists Procedures: 90425 Advncd Care Plan 30 Min
--- NOTE | 2020-11-22 08:40 | EX.PCM.CON.S ---
Assessment & Plan Assessment/Plan (1) Acute upper GI bleed: (2) Acute blood loss anemia: PLAN: Patient has anemia with melena. Patient is on Xarelto and Plavix due to A. fib and heart stents. The patient is not on a PPI. The patient had transfusion and is receiving PPI. Patient may have clear liquids today as the Xarelto wears off. I would hold the Xarelto but continue the Plavix. Plan for n.p.o. after midnight with EGD tomorrow. I explained endoscopy in detail to the patient. I explained the risks including but not limited to stroke or heart attack with anesthesia, perforation of the GI tract, bleeding, infection. I explained that any of these could necessitate further emergency surgery. The patient understands and all questions were answered sufficiently. The patient wishes to proceed with procedure. Jean Chu MD Pager: [facility] [address] [place] [address], [address] [place] [address] Office: HPI Consult Data Date of Consult: 11/22/20 HPI Narrative HPI Narrative: CURLY MORALES, is a 70 F who presents to the emergency after having anemia on a blood draw. The patient reports she has been having lower abdominal pain as well as black tarry stools for the last month. She is on Xarelto and Plavix due to A. fib and recent heart stents this summer. Patient does not report any history of EGD and does not remember her last colonoscopy. She is not on a PPI. Patient did have 1 dark tarry stool since admission. Patient has received 2 units of blood. Patient does not have any lightheadedness or chest pain. [facility] Medical History Abdominal aortic aneurysm (AAA) Acute on chronic combined systolic (congestive) and diastolic (congestive) heart failure Acute on chronic diastolic (congestive) heart failure Angina pectoris Anxiety and depression Atherosclerotic heart disease of [place] coronary artery without angina pectoris Atrial fibrillation with RVR Atrial fibrillation with RVR Chronic kidney disease, stage 4 (severe) Claudication in peripheral vascular disease Congestive heart failure (CHF) COPD (chronic obstructive pulmonary disease) COVID-19 (01/01/20) Dyspnea on exertion Emphysema of lung Essential (primary) hypertension HLD (hyperlipidemia) Hypokalemia IBS (irritable bowel syndrome) Nicotine dependence Non-ischemic cardiomyopathy Non-STEMI (non-ST elevated myocardial infarction) (03/19/19) Obesity BELLE (obstructive sleep apnea) PAD (peripheral artery disease) Paroxysmal atrial fibrillation Peripheral vascular occlusive disease Persistent atrial fibrillation Pneumonia due to 2019 novel coronavirus (01/01/20) Sepsis (01/01/20) Sinus pause Smoking greater than 30 pack years Tachy-erica syndrome Unstable angina pectoris due to coronary arteriosclerosis Wheezing Home Medications atorvastatin 40 mg tablet 40 mg PO QHS tablet 07/09/19 [History Last Taken 06/05/20] dicyclomine 10 mg capsule 10 mg PO 4X/DAY 07/09/19 [History Last Taken 06/06/20] famotidine 20 mg tablet 20 mg PO DAILY 07/09/19 [History Last Taken 07/18/20] clopidogrel 75 mg PO QHS 08/30/19 [History Last Taken 07/18/20] potassium chloride 20 meq PO BID 04/22/20 [History Last Taken 06/06/20] isosorbide mononitrate 60 mg PO DAILY 06/06/20 [History Last Taken 07/18/20] metoprolol tartrate 100 mg PO BID 06/06/20 [History Last Taken 07/18/20] rivaroxaban 20 mg PO DAILY@1700 06/06/20 [History Last Taken 07/18/20] albuterol sulfate 90 mcg/actuation aerosol inhaler 1 - 2 puff INHALATION Q4H PRN PRN #1 inhaler 07/06/20 [Rx Last Taken Unknown] amiodarone 200 mg tablet 200 mg PO DAILY tablet 07/06/20 [History Last Taken 07/18/20] fluticasone 500 mcg-salmeterol 50 mcg/dose blistr powdr for inhalation 1 inh INHALATION BID #60 each 07/06/20 [Rx Last Taken Unknown] furosemide 40 mg tablet 40 mg PO DAILY tab 08/04/20 [History Last Taken Unknown] amlodipine 2.5 mg tablet 2.5 mg PO DAILY #30 tab 08/18/20 [Rx Last Taken Unknown] gabapentin See Rx Instructions .ROUTE .COMPLEX 08/22/20 [History Last Taken Unknown] BuSpar See Rx Instructions .ROUTE .COMPLEX 09/21/20 [History Last Taken Unknown] multivitamin 1 tab PO DAILY 10/06/20 [History Last Taken Unknown] Allergy/AdvReac Type Severity Reaction Status Date / Time lisinopril Allergy tongue Verified 11/21/20 18:34 swelling Family History Father Heart disease Hypertension Seizures Sister CVA (cerebral vascular accident) Hypertension Other Family history of hypertension Surgical History History of angioplasty of peripheral vessel History of bilateral leg stents History of bunionectomy of right great toe History of cardioversion (07/18/20) History of colonoscopy (06/2018) History of coronary artery stent placement (03/18/19) History of hysterectomy History of left heart catheterization (11/25/19) History of permanent cardiac pacemaker placement (03/27/20) History of tonsillectomy Hx of APLL Hx of hysterectomy Status post left foot surgery Social History household members: children and other housing: house Smoking Status: Former smoker how long ago did patient quit smokin months ago alcohol intake: never substance use type: does not use caffeine: No what type of physical activity do you participate in: none ROS ENT HEENT: Reports as per HPI Cardiovascular Cardiovascular: Denies chest pain Respiratory/Chest Respiratory/Chest: Denies cough Gastrointestinal Gastrointestinal: Reports abdominal pain and melena; Denies constipation, diarrhea or vomiting Musculoskeletal Musculoskeletal: Reports none Neurologic Neurologic: Reports none Psychiatric Psychiatric: Reports none Hematologic/Lymphatic Hematologic/Lymphatic: Reports none; Denies easy bleeding Physical Exam Const alert and oriented x3 Eyes PERRL Neck full ROM Lymph Lymphatic: no lymphadenopathy noted Resp normal respiratory effort and normal air movement Cardio regular rate and regular rhythm GI soft to palpation, non-tender and non-distended Skin No no wounds Neuro CN's II-XII intact bilaterally Lab / Micro Data Result Diagrams: 11/21/20 21:15 11/21/20 21:15 Labs: Laboratory Results - last 24 hr 11/21/20 21:15: WBC 4.5, RBC 2.46 L, Hgb 6.7 L, Hct 21.5 L, MCV 87.4, MCH 27.2, MCHC 31.2 L, RDW Std Deviation 39.8, RDW Coeff of Natalie 12.5, Plt Count 186, MPV 10.3, Immature Gran % (Auto) 0.200, Neut % (Auto) 65.7, Lymph % (Auto) 22.0, [place] % (Auto) 9.2, Eos % (Auto) 2.5, Baso % (Auto) 0.4, Absolute Neuts (auto) 2.9, Absolute Lymphs (auto) 0.98, Nucleated RBC % 0 11/21/20 21:15: Sodium 139, Potassium 3.7, Chloride 106, Carbon Dioxide 31.0, Anion Gap 2 L, BUN 21 H, Creatinine 1.19 H, Estim Creat Clear Calc 34.29, Est GFR (MDRD) Af Amer 57 L, Est GFR (MDRD) Non-Af 47 L, BUN/Creatinine Ratio 17.6, Glucose 119 H, Calcium 8.2 L 11/21/20 21:15: PT 38.8 H, INR 4.1 H*, APTT 36.3 H 11/21/20 21:15: Blood Type A POSITIVE, Antibody Screen NEGATIVE, Crossmatch See Detail Micro: Microbiology 11/21/20 22:25 Nasal Secretion SARS-CoV-2 Antigen (Rapid) - Final 11/21/20 22:25 Stool Stool Occult Blood (HOLLI) - Final Occult Blood Positive
[2020-11-22] MEDS: 0.9% Normal Saline 1,000 ML 100 ML IV ×2 (09:57→20:53)
[2020-11-22] MEDS: Dicyclomine 10 MG Capsule PO ×3 (14:35→20:53)
[2020-11-22] MEDS: busPIRone 5 MG Tablet 10 MG PO ×2 (14:35→20:53)
[2020-11-22] MEDS: Acetaminophen 325 MG Tablet 650 MG PO (14:45)
[2020-11-22 14:56] LABS: Hematocrit 31.3 % (37-47); Hemoglobin 9.9 g/dL (12.0-15.0)
[2020-11-22] MEDS: Isosorbide Mononitrate 60 MG Tablet PO (15:27)
[2020-11-22] MEDS: Amiodarone 200 MG Tablet PO (15:27)
[2020-11-22] MEDS: amLODIPine 2.5 MG Tablet PO (15:27)
[2020-11-22] MEDS: Albuterol 2.5 MG/3 ML VIAL.NEB. INHALATION (19:04)
[2020-11-22] MEDS: Budesonide Respules 0.5 MG/2 ML AMPUL.NEB. INHALATION (19:05)
[2020-11-22] MEDS: MELATONIN 10 MG TABLET PO (20:52)
[2020-11-22] MEDS: Clopidogrel Bisulfate 75 MG Tablet PO (20:52)
[2020-11-22] MEDS: traZODone 50 MG Tablet 150 MG PO (20:52)
[2020-11-22] MEDS: Atorvastatin Calcium 40 MG Tablet PO (20:53)
[2020-11-22] MEDS: Metoprolol Tartrate 100 MG Tablet PO (20:53)
[2020-11-23] VITALS (9 sets, daily range): BP systolic 147–168; BP diastolic 50–72; PULSE 60–61; RESP 16–18; TEMP 36.6–37.1; O2SAT 94–100; BMI 24.7
[2020-11-23] MEDS: Albuterol 2.5 MG/3 ML VIAL.NEB. INHALATION (06:44)
[2020-11-23] MEDS: Budesonide Respules 0.5 MG/2 ML AMPUL.NEB. INHALATION (06:44)
--- NOTE | 2020-11-23 07:28 | PN.SURG_ITS ---
Subjective Subjective Patient had ongoing black bowel movements yesterday Objective Data Objective Data Vital Signs: Vital Signs Temp Pulse Resp BP Pulse Ox 98.4 F 61 18 161/53 H 96 11/23/20 03:30 11/23/20 06:45 11/23/20 06:45 11/23/20 03:30 11/23/20 06:45 Oxygen Flow Rate (L/min) 3 Oxygen Delivery Method Room Air Weight: 134 lb 15.825 oz Body Mass Index (BMI) 24.7 Intake & Output: Intake and Output for Last 24 Hours 11/21/20 11/22/20 11/23/20 23:59 23:59 23:59 Intake Total 35 / 35 1493.5 / 1493.5 1863.83 / 1863.83 Balance 35 / 35 1493.5 / 1493.5 1863.83 / 1863.83 Medical Nutrition Assessment Dietitian: Malnutrition Criteria Met Start: 11/22/20 16:34 Freq: Status: Active Protocol: Document 11/22/20 16:36 RMA (Rec: 11/22/20 16:36 RMA [id number]) Nutrition Malnutrition Evidence of Malnutrition Exists Yes Malnutrition (severe): Acute Illness/Injury Evidenced By Suboptimal Energy Intake ( Moderate),Weight Loss (Severe) Clinical Problem Acute Disease or Injury Related Malnutrition Etiology Moderate to Severe protein- calorie malnutrition in the context of acute illness related to ongoing decreased appetite and possible increased energy expenditure Signs/Symptoms as evidenced by 10% wt loss x past 4-6 months and PO intake meeting less than 50-75% estimated nutrition needs in same time frame. Status Active Problem Recommendation Dietitian Recommendations/Changes Will add 240ml ensure clear TID w/ meals while on clear liquid diet. Rec advance PO as tolerated to Transitional diet with goal diet of Cardiac/sodium- restricted; FR as needed. Adjust ONS as diet advanced from clear liquids. Lab / Micro Data Result Diagrams: 11/22/20 14:40 11/21/20 21:15 Labs: Laboratory Results - last 24 hr 11/21/20 21:15: Crossmatch See Detail 11/22/20 14:40: Hgb 9.9 L, Hct 31.3 L Micro: Microbiology 11/21/20 22:25 Nasal Secretion SARS-CoV-2 Antigen (Rapid) - Final 09/07/21 22:25 Stool Stool Occult Blood (HOLLI) - Final Occult Blood Positive Physical Exam Const oriented x3 and no apparent distress Resp normal respiratory effort Cardio regular rate and regular rhythm GI soft to palpation and non-tender Assessment & Plan Assessment/Plan (1) Acute upper GI bleed: PLAN: Patient has had ongoing melanotic stools. Hemoglobin recheck is pending. Xarelto is being held but Plavix is being continued due to heart stents. EGD later today. If EGD does not elucidate the source I will perform a bowel prep and colonoscopy tomorrow. Jean Chu MD Pager: [facility] [address] [place] [address], [address] [place] [phone] Office:
[2020-11-23 07:44] LABS: Absolute Lymphocyte Count 0.65 X10^3/uL (0.83-4.51); Absolute Neutrophil Count 3.3 X10^3/uL (2.0-7.7); Basophil# 0.02 X10^3/uL; Basophil% 0.5 % (0-1); Eosinophil# 0.13 X10^3/uL; Eosinophils% 2.9 % (0-5); Hematocrit 28.9 % (37-47); Hemoglobin 9.1 g/dL (12.0-15.0); Lymphocyte # 0.65 X10^3/ul (0.83-4.51); Lymphocyte % 14.6 % (19-41); Mean Corp Hgb Conc 31.5 g/dL (32-36); Mean Corpuscular Hgb 27.7 pg (27.0-32.0); Mean Corpuscular Volume 87.8 fL (81-99); Mean Platelet Vol. 10.6 fl (6.2-12.0); Monocyte# 0.38 X10^3/uL; Monocyte% 8.6 % (0-10); NRBC Flagged by Analyzer 0 % (0-5); Neutrophil # 3.25 X10^3/uL (2.7-7.7); Neutrophil % 73.2 % (47-70); Platelet Count 183 K/mm3 (150-450); RBC Distribution Width CV 12.6 % (11.6-14.6); RBC Distribution Width SD 40.1 fl (35.1-43.9); Red Blood Count 3.29 M/mm3 (4.2-5.4); White Blood Count 4.4 K/mm3 (4.4-11.0)
[2020-11-23 08:23] LABS: Anion Gap 5 (5-15); BUN 12 mg/dL (7-18); BUN/Creat Ratio 14.1 RATIO (10-20); Calcium,Total 8.4 mg/dL (8.5-10.1); Chloride 109 mmol/L (98-107); Creatinine, Serum 0.85 mg/dL (0.55-1.02); EST Glomerular Filtration Rate 70 mL/min (>60); Est Glom Filt Rate - Afr Amer 85 mL/min (>60); Estimated Creatinine Clearance 48.01 ml/min; Glucose 91 mg/dL (74-106); Potassium 3.6 mmol/L (3.5-5.1); Sodium Level 141 mmol/L (136-145)
--- NOTE | 2020-11-23 11:17 | OP.EGD_ITS ---
Patient Name: Kathy Puri Procedure Date: 11/23/2020 10:44 AM Date of : 1950 Age: 70 Procedure: Upper GI endoscopy Indications: Melena Providers: Jean Chu MD Medicines: Propofol per Anesthesia Patient Profile: This is a 70 year old female. Refer to note in patient chart for documentation of history and physical. Complications: No immediate complications. Procedure: Pre-Anesthesia Assessment: - Prior to the procedure, a History and Physical was performed, and patient medications and allergies were reviewed. The patient's tolerance of previous anesthesia was also reviewed. The risks and benefits of the procedure and the sedation options and risks were discussed with the patient. All questions were answered, and informed consent was obtained. Prior Anticoagulants: The patient has taken Plavix (clopidogrel), last dose was day of procedure. After reviewing the risks and benefits, the patient was deemed in satisfactory condition to undergo the procedure. After obtaining informed consent, the endoscope was passed under direct vision. Throughout the procedure, the patient's blood pressure, pulse, and oxygen saturations were monitored continuously. The Endoscope was introduced through the mouth, and advanced to the fourth part of duodenum. The upper GI endoscopy was accomplished without difficulty. The patient tolerated the procedure well. Scope In: 10:53:41 AM Scope Out: 10:58:16 AM Total Procedure Duration Time 0 hours 4 minutes 35 seconds Findings: The esophagus was normal. The stomach was normal. The examined duodenum was normal. Impression: - Normal esophagus. - Normal stomach. - Normal examined duodenum. - No specimens collected. Recommendation: - Return patient to [facility] for ongoing care. - Clear liquid diet. - Continue present medications. Procedure Code(s): --- Professional --- 90180, Esophagogastroduodenoscopy, flexible, transoral; diagnostic, including collection of specimen(s) by brushing or washing, when performed (separate procedure) Diagnosis Code(s): --- Professional --- K92.1, Melena (includes Hematochezia) CPT copyright 2017 [employer]. All rights reserved. The codes documented in this report are preliminary and upon auditing coder review may be revised to meet current compliance requirements. Jean Chu MD 11/23/2020 11:16:40 AM This report has been signed electronically. Number of Addenda: 0 Note Initiated On: 11/23/2020 10:44 AM
--- NOTE | 2020-11-23 11:18 | OP.CCLET_ITS ---
11/23/2020 Cem Jewell [address] [place] [address] Re : Upper GI endoscopy procedure for Kathy Puri Dear Dr. Jewell This procedure was performed on November. My impressions and recommendations are as follows: Impressions : - Normal esophagus. - Normal stomach. - Normal examined duodenum. - No specimens collected. Recommendations : - [facility]. - Clear liquid diet. - Continue present medications. My findings are described in the full procedure note, which is enclosed. If I can be of further assistance, please feel free to contact me at Doctor phone number(s): , Work: . Sincerely, Jean Chu MD 11/23/2020 11:16:40 AM This report has been signed electronically.
--- NOTE | 2020-11-23 12:02 | PN.HOSP_ITS ---
Subjective Subjective Patient seen and examined. She had no complaints today and felt well. She states she did have some dark stools again overnight but otherwise feels well. Review of systems otherwise negative. Hemoglobin today is 9.1. She is due for EGD today. Objective Data Objective Data Vital Signs: Vital Signs Temp Pulse Resp BP Pulse Ox 98.2 F 60 16 156/61 H 94 11/23/20 11:23 11/23/20 11:23 11/23/20 11:23 11/23/20 11:23 11/23/20 11:23 Oxygen Flow Rate (L/min) 2 Oxygen Delivery Method Nasal Cannula Weight: 134 lb 15.825 oz Body Mass Index (BMI) 24.7 Intake & Output: Intake and Output for Last 24 Hours 11/21/20 11/22/20 11/23/20 23:59 23:59 23:59 Intake Total 35 / 35 1493.5 / 1493.5 1863.83 / 1863.83 Balance 35 / 35 1493.5 / 1493.5 1863.83 / 1863.83 Medical Nutrition Assessment Dietitian: Malnutrition Criteria Met Start: 11/22/20 16:34 Freq: Status: Active Protocol: Document 11/22/20 16:36 RMA (Rec: 11/22/20 16:36 RMA [id number]) Nutrition Malnutrition Evidence of Malnutrition Exists Yes Malnutrition (severe): Acute Illness/Injury Evidenced By Suboptimal Energy Intake ( Moderate),Weight Loss (Severe) Clinical Problem Acute Disease or Injury Related Malnutrition Etiology Moderate to Severe protein- calorie malnutrition in the context of acute illness related to ongoing decreased appetite and possible increased energy expenditure Signs/Symptoms as evidenced by 10% wt loss x past 4-6 months and PO intake meeting less than 50-75% estimated nutrition needs in same time frame. Status Active Problem Recommendation Dietitian Recommendations/Changes Will add 240ml ensure clear TID w/ meals while on clear liquid diet. Rec advance PO as tolerated to Transitional diet with goal diet of Cardiac/sodium- restricted; FR as needed. Adjust ONS as diet advanced from clear liquids. Lab / Micro Data Result Diagrams: 11/23/20 06:40 11/23/20 06:40 Labs: Laboratory Results - last 24 hr 11/21/20 21:15: Crossmatch See Detail 11/22/20 14:40: Hgb 9.9 L, Hct 31.3 L 11/23/20 06:40: WBC 4.4, RBC 3.29 L, Hgb 9.1 L, Hct 28.9 L, MCV 87.8, MCH 27.7, MCHC 31.5 L, RDW Std Deviation 40.1, RDW Coeff of Natalie 12.6, Plt Count 183, MPV 10.6, Immature Gran % (Auto) 0.200, Neut % (Auto) 73.2 H, Lymph % (Auto) 14.6 L, Hitchcock % (Auto) 8.6, Eos % (Auto) 2.9, Baso % (Auto) 0.5, Absolute Neuts (auto) 3.3, Absolute Lymphs (auto) 0.65 L, Nucleated RBC % 0 11/23/20 06:40: Sodium 141, Potassium 3.6, Chloride 109 H, Carbon Dioxide 27.0, Anion Gap 5, BUN 12, Creatinine 0.85, Estim Creat Clear Calc 48.01, Est GFR (MDRD) Af Amer 85, Est GFR (MDRD) Non-Af 70, BUN/Creatinine Ratio 14.1, Glucose 91, Calcium 8.4 L Micro: Microbiology 11/21/20 22:25 Nasal Secretion SARS-CoV-2 Antigen (Rapid) - Final 11/21/20 22:25 Stool Stool Occult Blood (HOLLI) - Final Occult Blood Positive Physical Exam Const alert, oriented x3 and no apparent distress General Appearance: cooperative Exam Limitations: no limitations HEENT normocephalic, head/scalp atraumatic, hearing grossly normal bilaterally and moist oral mucous membranes Head and Scalp: normocephalic Eyes PERRL, EOMs intact bilaterally and conjunctivae normal Neck no lymphadenopathy Resp normal respiratory effort, no retractions, no use of accessory muscles and clear to auscultation bilaterally Cardio regular rate, regular rhythm, S1 normal heart sound, S2 normal heart sound and no murmurs GI normal to inspection, nondistended, normoactive bowel sounds, soft to palpation, non-tender and non-distended Extremity normal to inspection, full ROM and no clubbing, cyanosis or edema Peripheral Pulses: Yes pulses 2+ throughout Skin no rashes or lesions noted Neuro oriented x3, CN's II-XII intact bilaterally and moves all extremities Sensorium / Orientation: awake and alert Motor Exam: strength 5/5 throughout Psych affect normal Assessment & Plan Assessment/Plan (1) Acute upper GI bleed: (2) Acute blood loss anemia: PLAN: #Acute on chronic anemia due to UGI bleed * s/p transfusion of 2 units of PRBCs * xarelto on hold. still on plavix due to her history of CAD with 10 previous stents * had EGD today which didn't show any ulcer or gastritis. * per general surgery, for colonoscopy tomorrow. * Hb of 9.1 * #UGI bleed: as above #CAD s/p stents * On imdur and statin; plavix continued in light of her history of 10 previous stens * * #Persistent afib: xarelto on hold. On amiodarone and metoprolol #Hypertension: on amlodipine and metoprolol DVT prophylaxis: SCDs. No anticoagulation o/a of GI bleed. COde status: full code * Charges/Coding Visit Charges Inpatient E&M: 33747 Subs Hosp L2
--- NOTE | 2020-11-23 12:09 | CHAPLAIN ---
Type of Pastoral Visit _x__ Initial Visit ___ Follow-up Visit ___ On-call Visit ___ General Patient Visit ___ Spiritual Assessment ___ Family Conference ___ Bereavement ___ Rapid Response ___ Code Blue ___ Other (describe below) Pastoral Care Referral From _x__ Patient ___ Family ___ Nurse ___ Physician ___ Cream Dumper ___ Paper Folding Machine Operator ___ Other (describe below) Sacrament/Intervention ___ Active listening ___ Anointing ___ Quaker ___ Bereavement ___ Communion ___ Ursula exploration ___ ___ Life review ___ Prayer ___ Reconciliation ___ Sacrament of Sick _x__ Supportive presence ___ Wedding ___ Other (describe below) Pastoral Comments patient has been cleared for discharge; offer of support given; no further concerns
--- NOTE | 2020-11-23 12:20 | CASEMGMT ---
EZEKIEL PALMER assessment: Face to Face with patient for initial transition planning/care coordination assessment. EZEKIEL PALMER introduced self and role at [facility], pt voices understanding and consents to assessment. Pt is pacing in room in no distress on room air. Pt is A/Ox4 and answers all questions appropriately. Care providers, pharmacy, and demographics verified. Presentation: Pt c/o abd pain/black stools x1 month Admitting dx: Acute on Chronic anemia, UGI bleed PCP: [facility] Specialists: Specialist at [facility] [place], unsure what Preferred Pharmacy: [facility]: [facility] Prescription Benefit: Yes Living Will/HPOA: Pt has LW/HPOA and is aware that they are on file at [facility]. Pt states her daughter, Argelia Puri, is HPOA. LNOK: Argelia Puri, daughter Living Arrangements: Pt states lives with daughter in home and states no concerns at home. Pt is independent w/ ADL's. Transportation: Pt states drives self and states no transportation concerns. DME/HHC: Pt states has a BSC and walker and states no need for any further DME. Pt states no hx of HHC or SNF. Pt states no concerns with going home at time of discharge. Pt is retired. Pt does not smoke cigarettes or drink ETOH. Pt states voices no further concerns/needs. CM to follow for any further discharge planning/needs. Advised pt to ask for CM if any further questions/concerns/needs arise, voices understanding. Pt Goal: Home Plan: [place] EZEKIEL PALMER
== END 2020-11-23 12:45 | disposition home or self-care (01) | DRG 378 ==
LOC: ED 11-22 01:40 → MS3 11-22 07:46 → PCU 11-22 10:06
PROVIDERS: Surgery; Admitting Provider Student in an Organized Health Care Education/Training Program; Emergency Provider Emergency Medicine; PCP Family Medicine; Visit Provider Student in an Organized Health Care Education/Training Program
PROC: 0DJ08ZZ Inspection of Upper Intestinal Tract, Via Natural or Artificial Opening Endoscopic (ICD-10-PCS; CPT 43235; principal; 2020-11-23 10:25)
DX: K92.1 Melena (principal); E44.0 Moderate protein-calorie malnutrition; D62 Acute posthemorrhagic anemia; I42.8 Other cardiomyopathies; I48.19 Other persistent atrial fibrillation; N18.4 Chronic kidney disease, stage 4 (severe); I12.9 Hypertensive chronic kidney disease with stage 1 through stage 4 chronic kidney disease, or unspecified chronic kidney disease; Z68.24 Body mass index [BMI] 24.0-24.9, adult; E78.5 Hyperlipidemia, unspecified; F32.9 Major depressive disorder, single episode, unspecified; F41.9 Anxiety disorder, unspecified; I25.10 Atherosclerotic heart disease of native coronary artery without angina pectoris; I25.2 Old myocardial infarction; I49.5 Sick sinus syndrome; I71.4 Abdominal aortic aneurysm, without rupture; I73.9 Peripheral vascular disease, unspecified; K58.9 Irritable bowel syndrome, unspecified; G47.33 Obstructive sleep apnea (adult) (pediatric); J44.9 Chronic obstructive pulmonary disease, unspecified; Z86.16 Personal history of COVID-19; Z87.01 Personal history of pneumonia (recurrent); Z95.0 Presence of cardiac pacemaker; Z95.5 Presence of coronary angioplasty implant and graft; Z79.02 Long term (current) use of antithrombotics/antiplatelets; Z79.01 Long term (current) use of anticoagulants; Z79.899 Other long term (current) drug therapy; Z87.891 Personal history of nicotine dependence
CPT/HCPCS: 43235; 36415; 36430; 80048; 82274; 85014; 85018; 85025; 85610; 85730; 86850; 86900; 86901; 86920; 86922; 87426; 93005; 94640; 96365; 96366; 96375; 97162; 97802; 99218; 99285; H0012; J7030; P9016; A4216; G0378; J1940; J2405; J3490

== ENCOUNTER 2020-11-24 08:35 | Observation (INO) | payer MEDICARE, MEDICAID, SELFPAY ==
[2019-07-16 09:26] VITALS: BMI 29.5
[2020-11-24] VITALS (12 sets, daily range): BP systolic 154–178; BP diastolic 60–97; PULSE 59–78; RESP 15–20; TEMP 36.2–37; O2SAT 90–100; BMI 25.7; BMI 25.3
--- NOTE | 2020-11-24 09:00 | CT_ITS ---
EXAM: CT ABDOMEN AND PELVIS WITHOUT INTRAVENOUS CONTRAST : 1950 CLINICAL INDICATION: lower abd pain, melena TECHNIQUE: Helically acquired images were obtained of the abdomen and pelvis without intravenous contrast. This CT exam was performed using one or more of the following dose reduction techniques: automated exposure control, adjustment of the mA and/or kV according to patient size, and/or use of iterative reconstruction technique. This report was created using [email or web address] report generation technology. COMPARISON: 01/31/2019 FINDINGS: LOWER THORAX: There is a small left-sided pleural effusion. Lung bases are clear. No cardiomegaly. ABDOMEN: LIVER: Unremarkable. Homogeneous. GALLBLADDER AND BILE DUCTS: Unremarkable. No calcified gallstones. No gallbladder distention or wall edema. No intra- or extrahepatic biliary ductal dilation. PANCREAS: Unremarkable. No focal cystic mass. SPLEEN: Unremarkable. Normal size without focal cystic or solid mass. ADRENALS: Unremarkable. No nodules. KIDNEYS AND URETERS: There is a low-density mass of the right kidney compatible with a simple cyst. No follow-up imaging is necessary. No hydronephrosis. STOMACH AND BOWEL: There is sigmoid diverticulosis with no evidence of diverticulitis. No stomach or bowel distention. PELVIS: APPENDIX: No evidence of acute appendicitis. BLADDER: Unremarkable. REPRODUCTIVE: Unremarkable as visualized. No mass. ABDOMEN and PELVIS: INTRAPERITONEAL SPACE: Unremarkable. No ascites or other fluid collection. No free air. BONES/JOINTS: Unremarkable. No suspicious lytic or blastic abnormality. SOFT TISSUES: Unremarkable. No discrete abdominal or pelvic wall hernia. VASCULATURE: There is an infrarenal abdominal aortic aneurysm that measures 4.9 cm in AP diameter. This is increased in size from the reference exam when it measured 4.3 cm. LYMPH NODES: Unremarkable. No enlarged lymph nodes. CT/Abdomen/Pelvis without Cont IMPRESSION: Infrarenal abdominal aortic aneurysm which is mildly increased in size measuring 4.9 cm on today's exam compared to 4.3 cm on the previous examination. There is no evidence of rupture or leakage. No acute abnormalities are identified. There is sigmoid diverticulosis with no evidence of diverticulitis. Individualized dose optimization techniques were used for this CT. at 1050 Reported and signed by: Wilman Mckay MD Electronically Signed: Wilman Mckay MD at 10:49 EDT Tel , Service support ,
--- NOTE | 2020-11-24 09:09 | EDS_ITS ---
HPI HPI - GI History of Present Illness Chief Complaint: Abd Pain Informant: patient Narrative Narrative: Patient returns to the ED after leaving AMA yesterday for reevaluation. She was seen by myself 3 days ago admitted for upper GI bleed concerns with melena. Patient is on Plavix and Xarelto history of coronary stents along with paroxysmal atrial fibrillation. She states after her upper endoscopy by Dr. Chu, she was upset with nursing and left AMA around noon yesterday. She reports negative upper endoscopy there was plans for colonoscopy at 10:30 AM today. Patient went home states she still has continuous melena. She did not take any Xarelto however states she did take Plavix last evening. Reporting increasing lower abdominal pain since leaving. Denies urinary symptoms. Nausea without vomiting. Denies fevers. She was transfused 2 units of blood on admission, she states she did not receive any additional blood during hospitalization. History of hysterectomy. Prior similar symptoms: Yes PFSH PFS Medical History (Updated 11/24/20 @ 13:38 by Marline Hernandez) Abdominal aortic aneurysm (AAA) Acute on chronic combined systolic (congestive) and diastolic (congestive) heart failure Acute on chronic diastolic (congestive) heart failure Angina pectoris Anxiety and depression Atherosclerotic heart disease of [place] coronary artery without angina pectoris Atrial fibrillation with RVR Atrial fibrillation with RVR Cancer Chronic kidney disease, stage 4 (severe) Claudication in peripheral vascular disease Congestive heart failure (CHF) COPD (chronic obstructive pulmonary disease) COVID-19 (01/01/20) Dyspnea on exertion Emphysema of lung Essential (primary) hypertension GERD (gastroesophageal reflux disease) HLD (hyperlipidemia) Hypokalemia IBS (irritable bowel syndrome) Injury of head and neck Nicotine dependence Non-ischemic cardiomyopathy Non-STEMI (non-ST elevated myocardial infarction) (03/19/19) Obesity BELLE (obstructive sleep apnea) PAD (peripheral artery disease) Paroxysmal atrial fibrillation Peripheral vascular occlusive disease Persistent atrial fibrillation Pneumonia due to 2019 novel coronavirus (01/01/20) Rheumatic fever Rheumatoid arthritis Sepsis (01/01/20) Sinus pause Smoking greater than 30 pack years Tachy-erica syndrome Unstable angina pectoris due to coronary arteriosclerosis Wheezing Home Medications atorvastatin 40 mg tablet 40 mg PO QHS tablet 07/09/19 [History Last Taken 06/05/20] dicyclomine 10 mg capsule 10 mg PO 4X/DAY 07/09/19 [History Last Taken 06/06/20] famotidine 20 mg tablet 20 mg PO BID 07/09/19 [History Last Taken 07/18/20] clopidogrel 75 mg PO QHS 08/30/19 [History Last Taken 07/18/20] isosorbide mononitrate 60 mg PO DAILY 06/06/20 [History Last Taken 07/18/20] metoprolol tartrate 100 mg PO BID 06/06/20 [History Last Taken 07/18/20] rivaroxaban 20 mg PO DAILY@1700 06/06/20 [History Last Taken 07/18/20] albuterol sulfate 90 mcg/actuation aerosol inhaler 1 - 2 puff INHALATION Q4H PRN PRN #1 inhaler 07/06/20 [Rx Last Taken Unknown] furosemide 40 mg tablet 20 mg PO BID tab 08/04/20 [History Last Taken Unknown] gabapentin See Rx Instructions .ROUTE .COMPLEX 08/22/20 [History Last Taken Unknown] BuSpar 10 mg PO/SL TID 09/21/20 [History Last Taken 11/24/20] multivitamin 1 tab PO DAILY 10/06/20 [History Last Taken Unknown] ascorbic acid (vitamin C) [Vitamin C] 500 mg PO DAILY 11/24/20 [History Last Taken 11/24/20] fluticasone propion-salmeterol [Wixela Inhub] 1 inh INHALATION BID 11/24/20 [ History Last Taken Unknown] lidocaine [Lidoderm] 1 patch TOPICAL Q12H 11/24/20 [History Last Taken Unknown] nitroglycerin [Nitrostat] 0.4 mg SUBLINGUAL Q5M PRN 11/24/20 [History Last Taken Unknown] vitamin E 2 cap PO DAILY 11/24/20 [History Last Taken 11/24/20] Allergy/AdvReac Type Severity Reaction Status Date / Time lisinopril Allergy tongue Verified 11/24/20 08:48 swelling Family History Father Heart disease Hypertension Seizures Sister CVA (cerebral vascular accident) Hypertension Other Family history of hypertension Surgical History History of angioplasty of peripheral vessel History of bilateral leg stents History of bunionectomy of right great toe History of cardioversion (07/18/20) History of colonoscopy (06/2018) History of coronary artery stent placement (03/18/19) History of hysterectomy History of left heart catheterization (11/25/19) History of permanent cardiac pacemaker placement (03/27/20) History of tonsillectomy Hx of APLL Hx of hysterectomy Status post left foot surgery Social History household members: children and other housing: house Smoking Status: Former smoker how long ago did patient quit smokin months ago alcohol intake: never substance use type: does not use caffeine: No what type of physical activity do you participate in: none ROS ROS ED Constitutional Constitutional ED: Denies chills, fever(s) or sweats Eyes Eyes: Denies change in vision ENT ENT ED: Denies dysphagia or sore throat Cardiovascular Cardiovascular: Denies chest pain, leg edema, palpitations or racing heartbeat Respiratory/Chest Respiratory/Chest: Denies cough, dyspnea or dyspnea on exertion Gastrointestinal Gastrointestinal: Reports abdominal pain, melena and nausea; Denies diarrhea or vomiting Genitourinary Genitourinary ED: Denies dysuria, hematuria or urinary frequency Musculoskeletal Musculoskeletal: Denies back pain, extremity pain or neck pain Integumentary Denies rash or wounds Neurologic Neurologic: Denies headache(s), paresthesias or weakness EXAM Physical Exam Const Vital Signs: 11/24/20 08:35 11/24/20 11:51 Temperature 97.1 F L 98.6 F Temperature Source Temporal Oral Pulse Rate 61 78 Respiratory Rate 20 H 16 Blood Pressure 154/76 H 160/97 H Blood Pressure Mean 102 118 Pulse Ox 90 Oxygen Delivery Method Room Air Positive well nourished and well developed General Appearance ED: well developed and NAD HEENT Reports moist mucous membranes normocephalic and atraumatic Eyes PERRL, EOMs intact bilaterally and conjunctivae normal General Eye ED: Yes normal appearance of both eyes Neck no lymphadenopathy and supple General: Negative for tenderness Chest Wall Chest: Negative for tenderness Resp normal respiratory effort and normal air movement Effort and Inspection: symmetric chest movement; Negative for respiratory distress Cardio regular rate, regular rhythm and no murmurs Peripheral Pulses: pulses 2+ throughout GI normal to inspection, nondistended, normoactive bowel sounds GI Narrative: Mild tenderness suprapubic, negative Rivera's or McBurney's tenderness. No guarding or rebound. Palpation: Negative for guarding or rebound tenderness present Back/Spine no CVA tenderness and no thoracic nor lumbar tenderness Extremity normal to inspection General Extremety ED: Negative for edema or tenderness General Extremity: Negative for edema Neuro oriented x3 and no sensory deficits noted Sensorium / Orientation: awake and alert Skin no rashes or lesions noted and no wounds MDM MDM MDM Narrative Medical decision making narrative: Patient returns to the ED for reevaluation. Reporting multiple dark stools yesterday after leaving AMA. Reporting having increasing lower abdominal discomfort. Was given Zofran for nausea. She has nonsurgical abdomen. Recheck labs hemoglobin 9.7 and is stable. Vitals are stable. Liver and lipase normal. With her reported increasing pain CT scan obtained noting increasing size of her infrarenal aortic aneurysm to 4.9 cm, previously 4.3 to 4.4 cm. She is followed by vascular surgery at [facility]. She had a planned colonoscopy today. With her reporting continued melena, will be discussed with hospitalist service. Discussed with Dr. Santos who admit the patient further inpatient management. Lab Data Attestation: I reviewed the patient's lab results. Labs: Laboratory Results - last 24 hr 11/24/20 11/24/20 11/24/20 09:10 09:10 09:10 WBC 5.8 RBC 3.46 L Hgb 9.7 L Hct 30.9 L MCV 89.3 MCH 28.0 MCHC 31.4 L RDW Std Deviation 41.4 RDW Coeff of Natalie 12.9 Plt Count 184 MPV 10.1 Immature Gran % (Auto) 0.300 Neut % (Auto) 77.0 H Lymph % (Auto) 11.2 L Blount % (Auto) 9.1 Eos % (Auto) 2.2 Baso % (Auto) 0.2 Absolute Neuts (auto) 4.5 Absolute Lymphs (auto) 0.65 L Nucleated RBC % 0 PT 28.6 H INR 2.8 APTT 32.2 Sodium 140 Potassium 4.0 Chloride 110 H Carbon Dioxide 27.0 Anion Gap 3 L BUN 13 Creatinine 0.95 Estim Creat Clear Calc 42.96 Est GFR (MDRD) Af Amer 74 Est GFR (MDRD) Non-Af 61 BUN/Creatinine Ratio 13.7 Glucose 89 Calcium 8.7 Total Bilirubin 0.70 Direct Bilirubin 0.22 AST 31 ALT 23 Alkaline Phosphatase 101 Total Protein 6.5 Albumin 3.4 Globulin 3.1 Lipase 175 Urine Color Urine Clarity Urine pH Ur Specific [place] Urine Protein Urine Glucose (UA) Urine Ketones Urine Occult Blood Urine Nitrite Urine Bilirubin Urine Urobilinogen Ur Leukocyte Esterase Urine RBC Urine WBC Ur Squamous Epith Cells Urine Bacteria Urine Mucus 11/24/20 09:40 WBC RBC Hgb Hct MCV MCH MCHC RDW Std Deviation RDW Coeff of Natalie Plt Count MPV Immature Gran % (Auto) Neut % (Auto) Lymph % (Auto) Blount % (Auto) Eos % (Auto) Baso % (Auto) Absolute Neuts (auto) Absolute Lymphs (auto) Nucleated RBC % PT INR APTT Sodium Potassium Chloride Carbon Dioxide Anion Gap BUN Creatinine Estim Creat Clear Calc Est GFR (MDRD) Af Amer Est GFR (MDRD) Non-Af BUN/Creatinine Ratio Glucose Calcium Total Bilirubin Direct Bilirubin AST ALT Alkaline Phosphatase Total Protein Albumin Globulin Lipase Urine Color Yellow Urine Clarity Clear Urine pH 5.0 Ur Specific Atlantic 1.015 Urine Protein Negative Urine Glucose (UA) Normal Urine Ketones Negative Urine Occult Blood 10 H Urine Nitrite Negative Urine Bilirubin Negative Urine Urobilinogen Normal Ur Leukocyte Esterase 25 H Urine RBC 0 SEEN Urine WBC 0 SEEN Ur Squamous Epith Cells 0-5 SEEN Urine Bacteria 0 SEEN Urine Mucus 0 SEEN Radiography Diagnostic Testing: Radiology Impression Abdomen/Pelvis CT 11/24/20 09:00 IMPRESSION: Infrarenal abdominal aortic aneurysm which is mildly increased in size measuring 4.9 cm on today's exam compared to 4.3 cm on the previous examination. There is no evidence of rupture or leakage. No acute abnormalities are identified. There is sigmoid diverticulosis with no evidence of diverticulitis. Individualized dose optimization techniques were used for this CT. at 1050 Reported and signed by: Wilman Mckay MD Electronically Signed: Wilman Mckay MD at 10:49 EDT Tel , Service support , Discharge Plan Dx/Rx/DC Orders Clinical Impression: Melena, AAA (abdominal aortic aneurysm) without rupture, Anemia Disposition Disposition: Acute Care [facility] Discharge Date/Time: 11/24/20 13:24
[2020-11-24] MEDS: Ondansetron 4 MG/2 ML Vial IV (09:20)
[2020-11-24 09:23] LABS: Absolute Lymphocyte Count 0.65 X10^3/uL (0.83-4.51); Absolute Neutrophil Count 4.5 X10^3/uL (2.0-7.7); Basophil# 0.01 X10^3/uL; Basophil% 0.2 % (0-1); Eosinophil# 0.13 X10^3/uL; Eosinophils% 2.2 % (0-5); Hematocrit 30.9 % (37-47); Hemoglobin 9.7 g/dL (12.0-15.0); Lymphocyte # 0.65 X10^3/ul (0.83-4.51); Lymphocyte % 11.2 % (19-41); Mean Corp Hgb Conc 31.4 g/dL (32-36); Mean Corpuscular Volume 89.3 fL (81-99); Mean Platelet Vol. 10.1 fl (6.2-12.0); Monocyte# 0.53 X10^3/uL; Monocyte% 9.1 % (0-10); NRBC Flagged by Analyzer 0 % (0-5); Neutrophil # 4.46 X10^3/uL (2.7-7.7); Platelet Count 184 K/mm3 (150-450); RBC Distribution Width CV 12.9 % (11.6-14.6); RBC Distribution Width SD 41.4 fl (35.1-43.9); Red Blood Count 3.46 M/mm3 (4.2-5.4); White Blood Count 5.8 K/mm3 (4.4-11.0)
[2020-11-24 09:35] LABS: International Normalized Ratio 2.8; Prothrombin Time (Protime)PT. 28.6 SECONDS (11.7-14.9)
[2020-11-24 09:36] LABS: Partial Thromboplast Time 32.2 Seconds (24.1-36.2)
[2020-11-24 09:46] LABS: AST(SGOT) 31 U/L (15-37); Alanine Aminotransfer ALT/SGPT 23 U/L (13-56); Albumin, Serum 3.4 g/dL (3.2-5.0); Alkaline Phosphatase 101 U/L (45-117); Anion Gap 3 (5-15); BUN 13 mg/dL (7-18); BUN/Creat Ratio 13.7 RATIO (10-20); Bilirubin, Direct 0.22 mg/dL (0.00-0.30); Calcium,Total 8.7 mg/dL (8.5-10.1); Chloride 110 mmol/L (98-107); Creatinine, Serum 0.95 mg/dL (0.55-1.02); EST Glomerular Filtration Rate 61 mL/min (>60); Est Glom Filt Rate - Afr Amer 74 mL/min (>60); Estimated Creatinine Clearance 42.96 ml/min; Globulin 3.1 g/dL (2.2-4.2); Glucose 89 mg/dL (74-106); Lipase 175 U/L (73-393); Protein, Total 6.5 g/dL (6.4-8.2); Sodium Level 140 mmol/L (136-145)
[2020-11-24 09:48] LABS: Bacteria 0 SEEN /hpf (None Seen); Mucous, Urine 0 SEEN /hpf (<or=2+); Red Blood Cells-Urine 0 SEEN /hpf (0-5); White Blood Cells 0 SEEN /hpf (0-5)
[2020-11-24 09:50] LABS: Color, Urine Yellow (Yellow); Glucose, Dipstick Normal (Normal); Ketone-Dipstick Negative (Negative); Leukocyte Esterase-Dipstick 25 /ul (Negative); Nitrite-Dipstick Negative (Negative); Occult Blood-Urine 10 /ul (Negative); Protein-Dipstick Negative (Negative); Specific Gravity, Urine 1.015 (1.002-1.030); Urine Bilirubin Dipstick Negative (Negative); Urine Clarity Clear (Clear); Urine Urobilinogen Normal (Normal)
[2020-11-24 09:55] LABS: Squamous Epithelial Cells - UA 0-5 SEEN /hpf (5-10)
--- NOTE | 2020-11-24 11:41 | HP.PCM.HOS_ITS ---
[facility] - General General Date of Admission: 11/24/20 HPI Narrative CURLY MORALES, is a 70 F with an extensive past medical history as outlined who presents via the ED on 11/24/2020 with a complaint of dark stools and abdominal pain. Patient was actually admitted about 3 days ago for the same symptoms and had an EGD done yesterday. EGD was normal. Plan was for patient to have a colonoscopy today. Patient however signed out AGAINST MEDICAL ADVICE yesterday. She went home and got something to eat and subsequently started having abdominal pain with associated dark tarry stools. A colonoscopy had been scheduled for this morning so she came back to the ED because she thought she could come in and have her colonoscopy today. At time of review she complained of some lower abdominal pain but review of symptoms otherwise negative. Vitals showed blood pressure of 167/70, pulse rate of 59 and respiratory of 18 with temperature of 97.4 Fahrenheit. She took her Plavix last night but has not taken her Xarelto. CT of the abdomen and pelvis done showed enlargement of her infrarenal abdominal aortic aneurysm from 4.3 cm on previous examination to 4.9 cm with no evidence of rupture or leakage. She has been admitted to be managed for GI bleed. [facility] Medical History (Updated 11/24/20 @ 13:38 by Marline Hernandez) Abdominal aortic aneurysm (AAA) Acute on chronic combined systolic (congestive) and diastolic (congestive) heart failure Acute on chronic diastolic (congestive) heart failure Angina pectoris Anxiety and depression Atherosclerotic heart disease of [place] coronary artery without angina pectoris Atrial fibrillation with RVR Atrial fibrillation with RVR Cancer Chronic kidney disease, stage 4 (severe) Claudication in peripheral vascular disease Congestive heart failure (CHF) COPD (chronic obstructive pulmonary disease) COVID-19 (01/01/20) Dyspnea on exertion Emphysema of lung Essential (primary) hypertension GERD (gastroesophageal reflux disease) HLD (hyperlipidemia) Hypokalemia IBS (irritable bowel syndrome) Injury of head and neck Nicotine dependence Non-ischemic cardiomyopathy Non-STEMI (non-ST elevated myocardial infarction) (03/19/19) Obesity BELLE (obstructive sleep apnea) PAD (peripheral artery disease) Paroxysmal atrial fibrillation Peripheral vascular occlusive disease Persistent atrial fibrillation Pneumonia due to 2019 novel coronavirus (01/01/20) Rheumatic fever Rheumatoid arthritis Sepsis (01/01/20) Sinus pause Smoking greater than 30 pack years Tachy-erica syndrome Unstable angina pectoris due to coronary arteriosclerosis Wheezing Home Medications atorvastatin 40 mg tablet 40 mg PO QHS tablet 07/09/19 [History Last Taken 06/05/20] dicyclomine 10 mg capsule 10 mg PO 4X/DAY 07/09/19 [History Last Taken 06/06/20] famotidine 20 mg tablet 20 mg PO BID 07/09/19 [History Last Taken 07/18/20] clopidogrel 75 mg PO QHS 08/30/19 [History Last Taken 07/18/20] isosorbide mononitrate 60 mg PO DAILY 06/06/20 [History Last Taken 07/18/20] metoprolol tartrate 100 mg PO BID 06/06/20 [History Last Taken 07/18/20] rivaroxaban 20 mg PO DAILY@1700 06/06/20 [History Last Taken 07/18/20] albuterol sulfate 90 mcg/actuation aerosol inhaler 1 - 2 puff INHALATION Q4H PRN PRN #1 inhaler 07/06/20 [Rx Last Taken Unknown] furosemide 40 mg tablet 20 mg PO BID tab 08/04/20 [History Last Taken Unknown] gabapentin See Rx Instructions .ROUTE .COMPLEX 08/22/20 [History Last Taken Unknown] BuSpar 10 mg PO/SL TID 09/21/20 [History Last Taken 11/24/20] multivitamin 1 tab PO DAILY 10/06/20 [History Last Taken Unknown] ascorbic acid (vitamin C) [Vitamin C] 500 mg PO DAILY 11/24/20 [History Last Taken 11/24/20] fluticasone propion-salmeterol [Wixela Inhub] 1 inh INHALATION BID 11/24/20 [History Last Taken Unknown] lidocaine [Lidoderm] 1 patch TOPICAL Q12H 11/24/20 [History Last Taken Unknown] nitroglycerin [Nitrostat] 0.4 mg SUBLINGUAL Q5M PRN 11/24/20 [History Last Taken Unknown] vitamin E 2 cap PO DAILY 11/24/20 [History Last Taken 11/24/20] Allergy/AdvReac Type Severity Reaction Status Date / Time lisinopril Allergy tongue Verified 11/24/20 08:48 swelling Family History Father Heart disease Hypertension Seizures Sister CVA (cerebral vascular accident) Hypertension Other Family history of hypertension Surgical History History of angioplasty of peripheral vessel History of bilateral leg stents History of bunionectomy of right great toe History of cardioversion (07/18/20) History of colonoscopy (06/2018) History of coronary artery stent placement (03/18/19) History of hysterectomy History of left heart catheterization (11/25/19) History of permanent cardiac pacemaker placement (03/27/20) History of tonsillectomy Hx of APLL Hx of hysterectomy Status post left foot surgery Social History household members: children and other housing: house Smoking Status: Former smoker how long ago did patient quit smokin months ago alcohol intake: never substance use type: does not use caffeine: No what type of physical activity do you participate in: none ROS Constitutional Constitutional: Denies anorexia, change in weight, chills, fatigue, fever(s), malaise or weakness Eyes Eyes: Denies change in vision ENT HEENT: Denies dysphagia or headache(s) Cardiovascular Cardiovascular: Denies chest pain, dyspnea on exertion, edema, lightheadedness, orthopnea, palpitations, paroxysmal nocturnal dyspnea or rapid heart rate Respiratory/Chest Respiratory/Chest: Denies cough, hemoptysis, productive cough, shortness of breath at rest or shortness of breath with exertion Gastrointestinal Gastrointestinal: Reports abdominal pain and hematochezia; Denies coffee ground emesis, constipation, diarrhea, dyspepsia, hematemesis, loose stools, melena, nausea or vomiting Genitourinary Genitourinary: Denies burning urination, dysuria or urinary frequency Musculoskeletal Musculoskeletal: Denies arthralgias or back pain Neurologic Neurologic: Denies confusion, dizziness, focal weakness or headache(s) Psychiatric Psychiatric: Denies anxiety Endocrine Endocrinology: Denies change in body appearance Hematologic/Lymphatic Hematologic/Lymphatic: Denies anemia or easy bleeding Vital Signs Vital Signs Vital Signs: 11/24/20 08:35 Temperature 97.1 F L Temperature Source Temporal Pulse Rate 61 Respiratory Rate 20 H Blood Pressure 154/76 H Blood Pressure Mean 102 Weight Weight: 140 lb 14.006 oz Body Mass Index (BMI) 25.7 Physical Exam Const alert, oriented x3 and no apparent distress General Appearance: cooperative HEENT normocephalic, head/scalp atraumatic, hearing grossly normal bilaterally and moist oral mucous membranes Eyes PERRL, EOMs intact bilaterally and conjunctivae normal Neck no lymphadenopathy, supple, no JVD and no carotid bruits Resp normal respiratory effort, no retractions, no use of accessory muscles and clear to auscultation bilaterally Cardio regular rate, regular rhythm, S1 normal heart sound, S2 normal heart sound and no murmurs GI normal to inspection, nondistended, normoactive bowel sounds and soft to palpation GI Narrative: mild suprapubic tenderness, no guarding or rebound tenderness. Extremity normal to inspection, full ROM and no clubbing, cyanosis or edema Peripheral Pulses: Yes pulses 2+ throughout Skin no rashes or lesions noted Neuro oriented x3, CN's II-XII intact bilaterally and moves all extremities Sensorium / Orientation: awake and alert Psych affect normal Results Lab / Micro Data Result Diagrams: 11/24/20 09:10 11/24/20 09:10 Labs: Laboratory Results - last 24 hr 11/24/20 09:10: WBC 5.8, RBC 3.46 L, Hgb 9.7 L, Hct 30.9 L, MCV 89.3, MCH 28.0, MCHC 31.4 L, RDW Std Deviation 41.4, RDW Coeff of Natalie 12.9, Plt Count 184, MPV 10.1, Immature Gran % (Auto) 0.300, Neut % (Auto) 77.0 H, Lymph % (Auto) 11.2 L, [place] % (Auto) 9.1, Eos % (Auto) 2.2, Baso % (Auto) 0.2, Absolute Neuts (auto) 4.5, Absolute Lymphs (auto) 0.65 L, Nucleated RBC % 0 11/24/20 09:10: PT 28.6 H, INR 2.8, APTT 32.2 11/24/20 09:10: Sodium 140, Potassium 4.0, Chloride 110 H, Carbon Dioxide 27.0, Anion Gap 3 L, BUN 13, Creatinine 0.95, Estim Creat Clear Calc 42.96, Est GFR (MDRD) Af Amer 74, Est GFR (MDRD) Non-Af 61, BUN/Creatinine Ratio 13.7, Glucose 89, Calcium 8.7, Total Bilirubin 0.70, Direct Bilirubin 0.22, AST 31, ALT 23, Alkaline Phosphatase 101, Total Protein 6.5, Albumin 3.4, Globulin 3.1, Lipase 175 11/24/20 09:40: Urine Color Yellow, Urine Clarity Clear, Urine pH 5.0, Ur Spe cific [place] 1.015, Urine Protein Negative, Urine Glucose (UA) Normal, Urine Ketones Negative, Urine Occult Blood 10 H, Urine Nitrite Negative, Urine Bilirubin Negative, Urine Urobilinogen Normal, Ur Leukocyte Esterase 25 H, Urine RBC 0 SEEN, Urine WBC 0 SEEN, Ur Squamous Epith Cells 0-5 SEEN, Urine Bacteria 0 SEEN, Urine Mucus 0 SEEN Radiology Impression Abdomen/Pelvis CT 11/24/20 09:00 IMPRESSION: Infrarenal abdominal aortic aneurysm which is mildly increased in size measuring 4.9 cm on today's exam compared to 4.3 cm on the previous examination. There is no evidence of rupture or leakage. No acute abnormalities are identified. There is sigmoid diverticulosis with no evidence of diverticulitis. Individualized dose optimization techniques were used for this CT. at 1050 Reported and signed by: Wilman Mckay MD Electronically Signed: Wilman Mckay MD at 10:49 EDT Tel , Service support , Assessment & Plan Assessment/Plan (1) Acute upper GI bleed: (2) AAA (abdominal aortic aneurysm) without rupture: (3) Anemia: PLAN: #Acute GI bleed * Patient did have an upper GI endoscopy 1 day ago which was normal. * Gastroenterology consulted. Per gastroenterology, she would need a lower GI scope. Thinking is that his symptoms are consistent with ischemic colitis and there is a possibility of AVMs or telangiectasias involving the upper GI tract or small bowel. * Currently n.p.o. Colon prep as per gastroenterology. * Hydrate gently with IV fluids. * hold anticoagulation * #Abdominal aortic aneurysm * This increased in size from 4.2 cm to 4.9 cm today. Imaging done of the abdomen. * She follows up with the vascular surgeon Gianni Galvez. CT angiogram of the abdomen ordered as patient was on Xarelto and Plavix, to evaluate for any bl eeding * #CAD s/p stents: On Imdur and statin. Will hold Plavix today. #Persistent A. fib: On amiodarone and metoprolol. Xarelto on hold. #Hypertension: On amlodipine and metoprolol. DVT prophylaxis: SCDs. No anticoagulation on account of GI bleed. CODE STATUS: Full code Charges/Coding Visit Charges Inpatient E&M: 69851 Subs Hosp L3
--- NOTE | 2020-11-24 11:45 | NURSING ---
DR HUI HORN
--- NOTE | 2020-11-24 12:22 | DS.PCM_ITS ---
Providers Date of Admission: 11/22/20 Primary Care Physician: Dr. Cem Jewell MD Reason For Visit: MELENA STOOLS Diagnosis Discharge Diagnosis (1) Acute upper GI bleed: Status: Acute Code(s): K92.2 - Gastrointestinal hemorrhage, unspecified (2) Acute blood loss anemia: Status: Acute Code(s): D62 - Acute posthemorrhagic anemia Medications at Discharge Home Medications atorvastatin 40 mg tablet 40 mg PO QHS tablet 07/09/19 dicyclomine 10 mg capsule 10 mg PO 4X/DAY 07/09/19 famotidine 20 mg tablet 20 mg PO BID 07/09/19 clopidogrel 75 mg PO QHS 08/30/19 isosorbide mononitrate 60 mg PO DAILY 06/06/20 metoprolol tartrate 100 mg PO BID 06/06/20 rivaroxaban 20 mg PO DAILY@1700 06/06/20 albuterol sulfate 90 mcg/actuation aerosol inhaler 1 - 2 puff INHALATION Q4H PRN PRN #1 inhaler 07/06/20 furosemide 40 mg tablet 20 mg PO BID tab 08/04/20 gabapentin See Rx Instructions .ROUTE .COMPLEX 08/22/20 BuSpar 10 mg PO/SL TID 09/21/20 multivitamin 1 tab PO DAILY 10/06/20 ascorbic acid (vitamin C) [Vitamin C] 500 mg PO DAILY 11/24/20 fluticasone propion-salmeterol [Wixela Inhub] 1 inh INHALATION BID 11/24/20 lidocaine [Lidoderm] 1 patch TOPICAL Q12H 11/24/20 nitroglycerin [Nitrostat] 0.4 mg SUBLINGUAL Q5M PRN 11/24/20 vitamin E 2 cap PO DAILY 11/24/20 Hospital Course Operations None Procedures EGD Summary of Care Provided Minutes Spent on Discharge: 40 Hospital Course: CURLY MORALES, is a 70 F with an extensive PMH as outlined who presents with a complaint of low hemoglobin, per labs done at an urgent care center. She presented at the urgent care with a complaint of dark tarry stools for 1 month prior to admission, with no associated lightheadedness, dizziness, nausea or vomiting. She also complained of lower abdominal pain, but denied any over the counter pain meds. She hasnt had such symptoms in the past before. She is on plavix and xarelto due to a history of CAD s/o stents. Review of systems was otherwise negative. Hemoglobin on admission was 6.7. SHe was transfused with 2 units of PRBCs and is being managed for acute anemia due to probable UGI bleed. Plan was initially to transfer her to [facility] due to nonavailab ility of platelets in blood bank as she was on plavix. Per blood bank, we dont have platelets in house, but if needed, can be ordered and should arrive from [place] in ~ 2-3 hours. I discussed case with Dr Chu the surgeon motion picture camera operator who agreed to evaluate patient on admission, and was ok with patient staying here. Patient was admitted and managed for acute GI bleed and acute on chronic anemia. Her aspirin was held but per discussion with surgery, due to her history of multiple cardiac stents, her Plavix was continued. Hemoglobin came up to above 9. She had EGD on 11/23/2020 which was negative for any evidence of bleeding. Plan was for patient to have colonoscopy on 11/24/2020. However patient left AGAINST MEDICAL ADVICE on 11/23/2020. Patient was seen and examined prior to discharge. She had come back from EGD and had no complaints and felt well. However she later decided to sign out AGAINST MEDICAL ADVICE. Labs and vitals reviewed. Physical Exam Const alert, oriented x3 and no apparent distress General Appearance: cooperative and comfortable Orientation / Consciousness: awake Exam Limitations: no limitations HEENT normocephalic, head/scalp atraumatic, hearing grossly normal bilaterally and moist oral mucous membranes Eyes PERRL, EOMs intact bilaterally and conjunctivae normal Neck no lymphadenopathy, supple, no JVD and no carotid bruits Resp normal respiratory effort, no retractions, no use of accessory muscles and clear to auscultation bilaterally Cardio regular rate, regular rhythm, S1 normal heart sound, S2 normal heart sound and no murmurs GI normal to inspection, nondistended, normoactive bowel sounds and soft to palpation GI Narrative: mild suprapubic tenderness, no guarding or rebound tenderness. Extremity normal to inspection, full ROM and no clubbing, cyanosis or edema Skin no rashes or lesions noted Neuro oriented x3, CN's II-XII intact bilaterally and moves all extremities Sensorium / Orientation: awake and alert Psych affect normal Weight / BMI Weight Weight: 140 lb 14.006 oz Body Mass Index (BMI) 25.7 ABG / Lab / Microbiology Data Result Diagrams: 11/24/20 09:10 11/24/20 09:10 Laboratory: Laboratory Results - last 24 hr 11/24/20 09:10: WBC 5.8, RBC 3.46 L, Hgb 9.7 L, Hct 30.9 L, MCV 89.3, MCH 28.0, MCHC 31.4 L, RDW Std Deviation 41.4, RDW Coeff of Natalie 12.9, Plt Count 184, MPV 10.1, Immature Gran % (Auto) 0.300, Neut % (Auto) 77.0 H, Lymph % (Auto) 11.2 L, [place] % (Auto) 9.1, Eos % (Auto) 2.2, Baso % (Auto) 0.2, Absolute Neuts (auto) 4.5, Absolute Lymphs (auto) 0.65 L, Nucleated RBC % 0 11/24/20 09:10: PT 28.6 H, INR 2.8, APTT 32.2 11/24/20 09:10: Sodium 140, Potassium 4.0, Chloride 110 H, Carbon Dioxide 27.0, Anion Gap 3 L, BUN 13, Creatinine 0.95, Estim Creat Clear Calc 42.96, Est GFR (MDRD) Af Amer 74, Est GFR (MDRD) Non-Af 61, BUN/Creatinine Ratio 13.7, Glucose 89, Calcium 8.7, Total Bilirubin 0.70, Direct Bilirubin 0.22, AST 31, ALT 23, Alkaline Phosphatase 101, Total Protein 6.5, Albumin 3.4, Globulin 3.1, Lipase 175 11/24/20 09:40: Urine Color Yellow, Urine Clarity Clear, Urine pH 5.0, Ur Specific [place] 1.015, Urine Protein Negative, Urine Glucose (UA) Normal, Urine Ketones Negative, Urine Occult Blood 10 H, Urine Nitrite Negative, Urine Bilirubin Negative, Urine Urobilinogen Normal, Ur Leukocyte Esterase 25 H, Urine RBC 0 SEEN, Urine WBC 0 SEEN, Ur Squamous Epith Cells 0-5 SEEN, Urine Bacteria 0 SEEN, Urine Mucus 0 SEEN Radiography Diagnostic Testing: Radiology Impression D/C Instructions Discharge Diet: Low fat / Low cholesterol Discharge Activity: Return to Normal Activity Call your doctor if you observe: Fever of 101 or Higher, Swelling in the ankles and Increased palpitations (irregular heartbeat) Meaningful Use Info Meaningful Use Diagnoses (Choose all that apply): None applicable Discharge Plan Admission Admit Date/Time: 11/24/20 12:21 Primary Reason for Your Visit: acute GI bleed, acute blood loss anemia Attending Provider: Anjana Santos Primary Care Provider: Cem Jewell Instructions Patient Instructions: Bleeding Gastrointestinal, Anemia Discharge Orders/Prescriptions Prescriptions: No Action atorvastatin 40 mg tablet 40 mg PO QHS RF: 0 famotidine 20 mg tablet 20 mg PO BID RF: 0 dicyclomine 10 mg capsule 10 mg PO 4X/DAY RF: 0 multivitamin Tablet 1 tab PO DAILY RF: 0 clopidogrel 75 MG tablet 75 mg PO QHS RF: 0 BuSpar 5 mg 10 mg PO/SL TID RF: 0 metoprolol tartrate 100 MG tablet 100 mg PO BID RF: 0 isosorbide mononitrate 60 MG tablet extended release 24 hr 60 mg PO DAILY RF: 0 rivaroxaban 20 MG tablet 20 mg PO DAILY@1700 RF: 0 gabapentin 100 MG capsule See Rx Instructions .ROUTE .COMPLEX RF: 0 ascorbic acid (vitamin C) [Vitamin C] 500 mg Tablet 500 mg PO DAILY RF: 0 lidocaine [Lidoderm] 5 % Adhesive Patch,Medicated 1 patch TOPICAL Q12H RF: 0 nitroglycerin [Nitrostat] 0.4 mg Tablet, Sublingual 0.4 mg SUBLINGUAL Q5M PRN (Reason: Chest Pain) RF: 0 vitamin E 1,200 unit Capsule 2 cap PO DAILY RF: 0 fluticasone propion-salmeterol [Wixela Inhub] 500-50 mcg/dose blister with device 1 inh INHALATION BID RF: 0 albuterol sulfate 90 mcg/actuation HFA aerosol inhaler 1 - 2 puff INHALATION Q4H PRN PRN (Reason: Dyspnea, wheezing) Qty: 1 RF: 6 furosemide 40 mg tablet 20 mg PO BID RF: 0 Referrals / Follow Up: Cem Jewell MD [Primary Care Provider] - Disposition Disposition (needs filled in before D/C Order can be placed): Against Medical Advice Charges/Coding Visit Charges Inpatient E&M: 81189 Disch Hosp
--- NOTE | 2020-11-24 13:16 | NURSING ---
317 KORAM MELENA, ANEMIA, GI BLEED
--- NOTE | 2020-11-24 15:48 | CASEMGMT ---
EZEKIEL PALMER Assessment: Face to Face with pt for initial transition planning/care coordination assessment. RN ESTELA introduced self and role at [facility], pt voices understanding and consents to assessment. Pt is A/O x4 and answers all questions appropriately at this time. Pt sitting up in bed with dtr at bedside in no distress. Care providers, pharmacy, and demographics verified/updated. Admitting Dx: melena stools PCP:[facility] Specialists:Pt has a vascular surgeon from [place] and a nephro from [place], she is not sure of the names. Pt also sees Kamila, cardio and Julien neuro. Preferred Pharmacy: [facility] Insurance: [employer] Prescription Benefit: yes LW/HPOA: Pt has a LW/DPOA on file at [facility]. Her DPOA is her dtr Argelia Puri. LNOK: Argelia White, dtr Living Arrangements: Pt lives with dtr and grandson in a two story house with 4 steps to enter from the back and 5 on the front. Pt uses both levels. Pt states she was I in ADL's prior to hospitalization and denies concerns at home. Transportation: Pt drives self and denies concerns with transportation. DME/HHC/SNF: Pt has a walker but does not use, a Bipap and BSC. Pt has had HHC in the past but cannot recall the name of it. Pt has CCN currently seeing her to manage her med setup. She also sees Palliative Care. She states Nahomy was just in to see her here in her room. [facility] but states she has not seen a counselor yet. She does see Cayla at [facility]. Pt has been in [facility] in [place] after she had COVID. Pt states no concerns with going home at time of dc. Pt states no further concerns/needs. CM to follow. Advised pt to ask CM if any further question/concerns/needs arise, voices understanding. Pt Goal: Home with resuming outpt services Plan: Home with resuming of outpt services Notified Donaldo in [facility] that patient is currently in the hospital.
--- NOTE | 2020-11-24 16:25 | CON.PCM.GI_ITS ---
HPI Consult Data Date of Consult: 11/24/20 HPI Narrative HPI Narrative: CURLY MORALES, is a 70 F who presents recurrent GI bleeding. She presented to the ED on 11/21/2020 after being seen as an outpatient and was determined to have a severely low hemoglobin at 6. She came to the ED and was determined to be normotensive and afebrile. Although she did feel very dizzy. In the ED her biochemical analysis showed that her hemoglobin was 6.7 with a elevated BUN/creatinine ratio of 21:6. She has a history of coronary artery disease status post PTCA with stent x10 on Plavix. She also has a history of paroxysmal A. fib on Xarelto. She underwent CT scan abdomen pelvis and it showed a 4.9 cm aortic aneurysm, which was previously 4.3 cm. She underwent upper endoscopy and was discovered to have no signs of bleeding in upper GI tract. She was supposed to stay the next day and have a colonoscopy. However she had some problems with possible sundowning and did not take the colonoscopy prep; therefore she went home. She came back to the hospital today after having worsening diarrhea with dark stools followed by abdominal pain and bloody diarrhea. She has not been back on her Xarelto therapy; however she is still takes Plavix therapy. COUNT INCLUDES THE [facility] Medical History (Updated 11/24/20 @ 13:38 by Marline Hernandez) Abdominal aortic aneurysm (AAA) Acute on chronic combined systolic (congestive) and diastolic (congestive) heart failure Acute on chronic diastolic (congestive) heart failure Angina pectoris Anxiety and depression Atherosclerotic heart disease of [place] coronary artery without angina pectoris Atrial fibrillation with RVR Atrial fibrillation with RVR Cancer Chronic kidney disease, stage 4 (severe) Claudication in peripheral vascular disease Congestive heart failure (CHF) COPD (chronic obstructive pulmonary disease) COVID-19 (01/01/20) Dyspnea on exertion Emphysema of lung Essential (primary) hypertension GERD (gastroesophageal reflux disease) HLD (hyperlipidemia) Hypokalemia IBS (irritable bowel syndrome) Injury of head and neck Nicotine dependence Non-ischemic cardiomyopathy Non-STEMI (non-ST elevated myocardial infarction) (03/19/19) Obesity BELLE (obstructive sleep apnea) PAD (peripheral artery disease) Paroxysmal atrial fibrillation Peripheral vascular occlusive disease Persistent atrial fibrillation Pneumonia due to 2019 novel coronavirus (01/01/20) Rheumatic fever Rheumatoid arthritis Sepsis (01/01/20) Sinus pause Smoking greater than 30 pack years Tachy-erica syndrome Unstable angina pectoris due to coronary arteriosclerosis Wheezing Home Medications atorvastatin 40 mg tablet 40 mg PO QHS tablet 07/09/19 [History Last Taken 06/05/20] dicyclomine 10 mg capsule 10 mg PO 4X/DAY 07/09/19 [History Last Taken 06/06/20] famotidine 20 mg tablet 20 mg PO BID 07/09/19 [History Last Taken 07/18/20] clopidogrel 75 mg PO QHS 08/30/19 [History Last Taken 07/18/20] isosorbide mononitrate 60 mg PO DAILY 06/06/20 [History Last Taken 07/18/20] metoprolol tartrate 100 mg PO BID 06/06/20 [History Last Taken 07/18/20] rivaroxaban 20 mg PO DAILY@1700 06/06/20 [History Last Taken 07/18/20] albuterol sulfate 90 mcg/actuation aerosol inhaler 1 - 2 puff INHALATION Q4H PRN PRN #1 inhaler 07/06/20 [Rx Last Taken Unknown] furosemide 40 mg tablet 20 mg PO BID tab 08/04/20 [History Last Taken Unknown] gabapentin See Rx Instructions .ROUTE .COMPLEX 08/22/20 [History Last Taken Unknown] BuSpar 10 mg PO/SL TID 09/21/20 [History Last Taken 11/24/20] multivitamin 1 tab PO DAILY 10/06/20 [History Last Taken Unknown] ascorbic acid (vitamin C) [Vitamin C] 500 mg PO DAILY 11/24/20 [History Last Taken 11/24/20] fluticasone propion-salmeterol [Wixela Inhub] 1 inh INHALATION BID 11/24/20 [History Last Taken Unknown] lidocaine [Lidoderm] 1 patch TOPICAL Q12H 11/24/20 [History Last Taken Unknown] nitroglycerin [Nitrostat] 0.4 mg SUBLINGUAL Q5M PRN 11/24/20 [History Last Taken Unknown] vitamin E 2 cap PO DAILY 11/24/20 [History Last Taken 11/24/20] Allergy/AdvReac Type Severity Reaction Status Date / Time lisinopril Allergy tongue Verified 11/24/20 08:48 swelling Family History Father Heart disease Hypertension Seizures Sister CVA (cerebral vascular accident) Hypertension Other Family history of hypertension Surgical History History of angioplasty of peripheral vessel History of bilateral leg stents History of bunionectomy of right great toe History of cardioversion (07/18/20) History of colonoscopy (06/2018) History of coronary artery stent placement (03/18/19) History of hysterectomy History of left heart catheterization (11/25/19) History of permanent cardiac pacemaker placement (03/27/20) History of tonsillectomy Hx of APLL Hx of hysterectomy Status post left foot surgery Social History household members: children and other housing: house Smoking Status: Former smoker how long ago did patient quit smokin months ago alcohol intake: never substance use type: does not use caffeine: No what type of physical activity do you participate in: none Lab / Micro Data Result Diagrams: 11/24/20 09:10 11/24/20 09:10 Labs: Laboratory Results - last 24 hr 11/24/20 09:10: WBC 5.8, RBC 3.46 L, Hgb 9.7 L, Hct 30.9 L, MCV 89.3, MCH 28.0, MCHC 31.4 L, RDW Std Deviation 41.4, RDW Coeff of Natalie 12.9, Plt Count 184, MPV 10.1, Immature Gran % (Auto) 0.300, Neut % (Auto) 77.0 H, Lymph % (Auto) 11.2 L, [place] % (Auto) 9.1, Eos % (Auto) 2.2, Baso % (Auto) 0.2, Absolute Neuts (auto) 4.5, Absolute Lymphs (auto) 0.65 L, Nucleated RBC % 0 11/24/20 09:10: PT 28.6 H, INR 2.8, APTT 32.2 11/24/20 09:10: Sodium 140, Potassium 4.0, Chloride 110 H, Carbon Dioxide 27.0, Anion Gap 3 L, BUN 13, Creatinine 0.95, Estim Creat Clear Calc 42.96, Est GFR (MDRD) Af Amer 74, Est GFR (MDRD) Non-Af 61, BUN/Creatinine Ratio 13.7, Glucose 89, Calcium 8.7, Total Bilirubin 0.70, Direct Bilirubin 0.22, AST 31, ALT 23, Alkaline Phosphatase 101, Total Protein 6.5, Albumin 3.4, Globulin 3.1, Lipase 175 11/24/20 09:40: Urine Color Yellow, Urine Clarity Clear, Urine pH 5.0, Ur Specific [place] 1.015, Urine Protein Negative, Urine Glucose (UA) Normal, Urine Ketones Negative, Urine Occult Blood 10 H, Urine Nitrite Negative, Urine Bilirubin Negative, Urine Urobilinogen Normal, Ur Leukocyte Esterase 25 H, Urine RBC 0 SEEN, Urine WBC 0 SEEN, Ur Squamous Epith Cells 0-5 SEEN, Urine Bacteria 0 SEEN, Urine Mucus 0 SEEN Radiology Impression Abdomen/Pelvis CT 11/24/20 09:00 IMPRESSION: Infrarenal abdominal aortic aneurysm which is mildly increased in size measuring 4.9 cm on today's exam compared to 4.3 cm on the previous examination. There is no evidence of rupture or leakage. No acute abnormalities are identified. There is sigmoid diverticulosis with no evidence of diverticulitis. Individualized dose optimization techniques were used for this CT. at 1050 Reported and signed by: Wilman Mckay MD Electronically Signed: Wilman Mckay MD at 10:49 EDT Tel , Service support , Assessment & Plan Assessment/Plan (1) Acute blood loss anemia: PLAN: There is a possibility that she still had an upper GI bleed that was closer to the ligament of Treitz. There is also possibility of AVMs or telangiectasias involving the upper GI tract or small bowel. Her symptoms are also consistent with ischemic colitis, due to the fact that she had diarrhea followed by bloody diarrhea. She should undergo upper and lower endoscopy to evaluate as much as possible of the GI tract. If that is negative for signs of bleeding then she should have a capsule endoscopy. She was explained the al ternatives, risk, benefits including an outstanding bleeding, infection, sepsis, perforation, need for emergent surgery and . She would have an ASA of 3. (2) Abdominal aortic aneurysm (AAA): PLAN: I will order a CT angiography due to the fact that her aortic aneurysm got bigger and she is on Plavix and Xarelto therapy. (3) Paroxysmal atrial fibrillation: PLAN: I recommend holding anticoagulation at this time although she is high risk for a thromboembolic event.
[2020-11-24] MEDS: Lidocaine 5% Patch 1 PATCH TOPICAL (16:31)
[2020-11-24] MEDS: Dicyclomine 10 MG Capsule PO ×3 (16:33→22:25)
[2020-11-24] MEDS: busPIRone 5 MG Tablet 10 MG PO ×2 (16:33→22:25)
[2020-11-24] MEDS: Bisacodyl 5 MG Tablet 20 MG PO (16:41)
[2020-11-24] MEDS: Polyethylene Glycol 3350 BOWEL PREP PO (18:30)
[2020-11-24] MEDS: Albuterol 2.5 MG/3 ML VIAL.NEB. INHALATION (18:55)
[2020-11-24] MEDS: Budesonide Respules 0.5 MG/2 ML AMPUL.NEB. INHALATION (18:55)
[2020-11-24] MEDS: Furosemide 20 MG Tablet PO (22:25)
[2020-11-24] MEDS: Atorvastatin Calcium 40 MG Tablet PO (22:25)
[2020-11-24] MEDS: Metoprolol Tartrate 100 MG Tablet PO (22:29)
[2020-11-24] MEDS: traZODone 100 MG Tablet 150 MG PO (23:02)
[2020-11-25] VITALS (13 sets, daily range): BP systolic 132–183; BP diastolic 47–64; PULSE 60–81; RESP 14–18; TEMP 36.2–37; O2SAT 92–98; BMI 25.2
--- NOTE | 2020-11-25 | IMM_PTH ---
PATIENT: CURLY MORALES LOC: MS3 U#:[id number] AGE/SX: 70/F ROOM: [place]317 RE11/24/[address]: Dr. Anjana Santos MD : 1950 BED: 1 DIS: 11/25/2020 SPEC #: [id number] RECD: 11/27/20 09:48 STATUS: SULLY REGrant #: [id number] KIM: 11/25/20 00:[address]: Matheus Abdul DEPT: IMMUNOHISTOCHEMISTRY RECD BY: Angie Alston ENTERED: 11/27/20 09:49 SP TYPE: IMMUNO OTHR DR: MD Dr. Anjana Rosales MD Tissues: A - Stomach, NOS Procedures: H Pylori (initial) KI-67 (add) P53 (add) PHYSICIAN & INSTITUTION [place] [id number] SPECIMEN INFORMATION: Tissue Source: A ? Antrum biopsy Clinical Info: Acute blood loss anemia, abdominal aortic aneurysm Specimen Number: [id number] CPT code: 22906, 04262 x2 METHODOLOGY: Deparaffinized sections of prefer/formalin-fixed tissue or PAP/DQ stained slides are incubated with monoclonal/polyclonal antibodies/oligonucleotide probes. Localization is made via biotin free immunoperoxidase method. Appropriate controls are performed and reacted as expected. Results on target cell population are indicated in the following table: RESULTS: ANTIBODY / CLONE RESULT Block A H Pylori (polyclonal) negative P53 (DO-7) negative Ki-67 (30-9) positive, low These tests were developed and their performance characteristics determined by [facility]. They may not have been cleared or approved by the U.S. Food and Drug Administration. The FDA has determined that such clearance or approval is not necessary. The above immunohistochemical/dualISH markers are ordered and reviewed by the Pathologist. INTERPRETATION: A. Antrum biopsy: No evidence of dysplasia. Negative for Helicobacter pylori organisms. AM:margaret 11/29/2020
--- NOTE | 2020-11-25 01:27 | PCS.PANDOC ---
PANDEMIC DOCUMENTATION INITIATED: Date: 10/30/2020 Time: 190
[2020-11-25] MEDS: Lidocaine 5% Patch 1 PATCH TOPICAL ×2 (02:38→13:40)
[2020-11-25] MEDS: Metoprolol Tartrate 100 MG Tablet PO (05:16)
[2020-11-25] MEDS: 0.9% Saline Lock 10 ML Syringe IV ×2 (06:17→06:55)
--- NOTE | 2020-11-25 07:05 | EGD_PTH ---
PATIENT: CURLY MORALES LOC: MS3 U#:[id number] AGE/SX: 70/F ROOM: [place]317 RE11/24/[address]: Dr. Anjana Santos MD : 1950 BED: 1 DIS: 11/25/2020 SPEC #: [id number] RECD: 11/25/20 08:06 STATUS: SULLY LYNCHGrant #: [id number] KIM: 11/25/20 07:[address]: Matheus Abdul DEPT: SURGICAL PATHOLOGY RECD BY: Nelia Sullivan ENTERED: 11/27/20 09:06 SP TYPE: EGD BIOPSY OTHR DR: MD Dr. Anjana Rosales MD Tissues: A - Gastric mucous membrane B - Descending colon C - Sigmoid colon biopsy Procedures: Surgery Specimen Level IV Comments: @ Ordering doctor for SUIV edited from to @ by ELVIA at 11/27/20 1452 @ Submitting doctor edited from to @ by RGOOD at 11/27/20 1455 HEADER OPERATION: Colonoscopy, EGD ([facility] [place] PRE-OP DIAGNOSIS: Acute blood loss anemia, abdominal aortic aneurysm TISSUE SUBMITTED: A ? Antrum biopsy for H. pylori and path, B ? Biopsy of descending colon polyp, C ? Sigmoid polyp biopsy MICROSCOPIC DIAGNOSIS A. Gastric antrum, biopsy: Mild chronic gastritis. Intestinal metaplasia. No evidence of dysplasia. See comment. B. Descending colon polyp, biopsy: Tubular adenoma. C. Sigmoid colon polyp, biopsy: Fragments of tubular adenoma. AM:margaert 11/28/2020 COMMENT A. The results of immunohistochemistry for Helicobacter pylori will be reported separately ([id number]). AB/PAS stain with matched control supports the diagnosis. MICROSCOPIC DESCRIPTION Slides are reviewed. GROSS DESCRIPTION A - Received in fixative is one container labeled with the patient's name and designated antrum biopsy. The specimen consists of one irregular fragment of light duong soft tissue that measures 0.3 x 0.3 x 0.1 cm. The specimen is totally submitted in one cassette. B - Received in fixative is one container labeled with the patient's name and designated biopsy of descending colon. The specimen consists of two irregular fragments of light duong soft tissue that in aggregate measure 0.5 x 0.3 x 0.1 cm. The specimen is totally submitted in one cassette. C - Received in fixative is one container labeled with the patient's name and designated sigmoid polyp biopsy. The specimen consists of three irregular fragments of light duong soft tissue that in aggregate measure 1 x 0.6 x 0.1 cm. The specimen is totally submitted in one cassette. / AM:margaret 11/27/20 TC:3 CPT: 67904 x3 , 24435
[2020-11-25] MEDS: Lactated Ringers 1,000 ML 100 ML IV ×2 (07:45→09:01)
--- NOTE | 2020-11-25 08:18 | OP.EGD_ITS ---
Patient Name: Kathy Puri Procedure Date: 11/25/2020 6:22 AM Date of : 1950 Age: 70 Procedure: Upper GI endoscopy Indications: GI bleed Providers: Matheus Abdul DO Complications: No complications No immediate complications. Procedure: Pre-Anesthesia Assessment: - After reviewing the risks and benefits, the patient was deemed in satisfactory condition to undergo the procedure. - Using IV propofol under the supervision of an anesthesiologist was determined to be medically necessary for this procedure based on review of the patient's medical history, medications, and prior anesthesia history. - Mental Status Examination: alert and oriented. Airway Examination: normal oropharyngeal airway and neck mobility. Respiratory Examination: clear to auscultation. CV Examination: normal. Abdominal Examination: bowel sounds present. - After reviewing the risks and benefits, the patient was deemed in satisfactory condition to undergo the procedure. - Using IV propofol under the supervision of an anesthesiologist was determined to be medically necessary for this procedure based on review of the patient's medical history, medications, and prior anesthesia history. - The heart rate, respiratory rate, oxygen saturations, blood pressure, adequacy of pulmonary ventilation, and response to care were monitored throughout the procedure. After obtaining informed consent, the endoscope was passed under direct vision. Throughout the procedure, the patient's blood pressure, pulse, and oxygen saturations were monitored continuously. The Colonoscope was introduced through the mouth, and advanced to the fourth part of duodenum. After obtaining informed consent, the endoscope was passed under direct vision. Throughout the procedure, the patient's blood pressure, pulse, and oxygen saturations were monitored continuously. Scope In: 7:14:40 AM Scope Out: 7:23:30 AM Total Procedure Duration Time 0 hours 8 minutes 50 seconds Findings: She had a normal-appearing esophagus. The GE junction was 38 cm from the incisors without irregularity. Once the pediatric colonoscope entered stomach there was diffuse gastritis seen in the gastric antrum. Biopsies and HARI were taken of the gastric antrum. The pediatric colonoscope was then used to visualize all way up until the fourth portion of the duodenum. There were no abnormalities seen. The colonoscope was then removed from the patient and she tolerated procedure without any problems. Non-severe esophagitis with no bleeding was found 38 cm from the incisors. Localized moderate inflammation characterized by erythema, friability and linear erosions was found in the gastric antrum. This was biopsied with a cold jumbo forceps for Helicobacter pylori testing using CLOtest. The fourth portion of the duodenum was normal. Impression: Antral gastritis - Non-severe non-erosive esophagitis. - Acute gastritis. Biopsied. - Normal fourth portion of the duodenum. - The examination was suspicious for esophagitis. - Chronic gastritis. - Normal fourth portion of the duodenum. Recommendation: Await CLOtest - Post-Procedure Resumption of Antiplatelet Medications: Restart Plavix (clopidogrel) today 75 mg PO daily. Refer to managing physician for further adjustment of therapy. Procedure Code(s): --- Professional --- 49338, Esophagogastroduodenoscopy, flexible, transoral; with biopsy, single or multiple CPT copyright 2017 [employer]. All rights reserved. The codes documented in this report are preliminary and upon nursing specialist review may be revised to meet current compliance requirements. Matheus Abdul DO 11/25/2020 8:17:55 AM This report has been signed electronically. Number of Addenda: 0 Note Initiated On: 11/25/2020 6:22 AM
--- NOTE | 2020-11-25 08:19 | OP.CCLET_ITS ---
11/25/2020 Cem Jewell [address] [place] [address] Re : Upper GI endoscopy procedure for Kathy Puri Dear Dr. Jewell This procedure was performed on Wednesday, November 25, 2020. My impressions and recommendations are as follows: Impressions : Antral gastritis - Non-severe non-erosive esophagitis. - Acute gastritis. Biopsied. - Normal fourth portion of the duodenum. - The examination was suspicious for esophagitis. - Chronic gastritis. - Normal fourth portion of the duodenum. Recommendations : Await CLOtest - Post-Procedure Resumption of Antiplatelet Medications: Restart Plavix (clopidogrel) today 75 mg PO daily. Refer to managing physician for further adjustment of therapy. My findings are described in the full procedure note, which is enclosed. If I can be of further assistance, please feel free to contact me at . Sincerely, Matheus Abdul, 11/25/2020 8:17:55 AM This report has been signed electronically.
--- NOTE | 2020-11-25 08:28 | OP.COLON_ITS ---
Patient Name: Kathy Puri Procedure Date: 11/25/2020 7:24 AM Date of : 1950 Age: 70 Procedure: Colonoscopy Indications: Hematochezia, Acute post hemorrhagic anemia Providers: Matheus Abdul DO Medicines: Propofol per Anesthesia Patient Profile: Last Colonoscopy: 1 year ago. Complications: No immediate complications. Procedure: Pre-Anesthesia Assessment: - After reviewing the risks and benefits, the patient was deemed in satisfactory condition to undergo the procedure. - Using IV propofol under the supervision of an anesthesiologist was determined to be medically necessary for this procedure based on review of the patient's medical history, medications, and prior anesthesia history. - Mental Status Examination: alert and oriented. Airway Examination: normal oropharyngeal airway and neck mobility. Respiratory Examination: clear to auscultation. CV Examination: normal. Abdominal Examination: bowel sounds present. - After reviewing the risks and benefits, the patient was deemed in satisfactory condition to undergo the procedure. - Using IV propofol under the supervision of an anesthesiologist was determined to be medically necessary for this procedure based on review of the patient's medical history, medications, and prior anesthesia history. - The heart rate, respiratory rate, oxygen saturations, blood pressure, adequacy of pulmonary ventilation, and response to care were monitored throughout the procedure. After I obtained informed consent, the scope was passed under direct vision. Throughout the procedure, the patient's blood pressure, pulse, and oxygen saturations were monitored continuously. The colonoscope was introduced through the anus and advanced to the cecum, identified by appendiceal orifice and ileocecal valve. The entire colon was examined. Scope In: 7:27:04 AM Scope Withdrawal Time 0 hours 13 minutes 24 seconds Scope Out: 7:54:29 AM Total Procedure Duration Time 0 hours 27 minutes 25 seconds Findings: Multiple large-mouthed diverticula were found in the proximal sigmoid colon. There was evidence of recent bleeding from the diverticular opening. Two flat polyps were found in the sigmoid colon, descending colon and mid descending colon. The polyps were 2 mm in size. These polyps were removed with a jumbo cold forceps. Resection and retrieval were complete. No additional abnormalities were found on retroflexion. Impression: - Moderate diverticulosis in the proximal sigmoid colon. There was evidence of recent bleeding from the diverticular opening. - Two 2 mm polyps in the sigmoid colon, in the descending colon and in the mid descending colon, removed with a jumbo cold forceps. Resected and retrieved. Recommendation: - [facility] the [facility] same day. - Resume previous diet. - Repeat colonoscopy is recommended for surveillance of multiple polyps. The colonoscopy date will be determined after pathology results from today's exam become available for review. - Resume Plavix (clopidogrel) at prior dose today. Refer to managing physician for further adjustment of therapy. Procedure Code(s): --- Professional --- 44275, Colonoscopy, flexible; with biopsy, single or multiple CPT copyright 2017 [employer]. All rights reserved. The codes documented in this report are preliminary and upon rodent exterminator review may be revised to meet current compliance requirements. Matheus Abdul DO 11/25/2020 8:27:56 AM This report has been signed electronically. Number of Addenda: 2 Note Initiated On: 11/25/2020 7:24 AM Addendum Number: 1 Addendum Date: 11/15/2021 3:37:21 PM MAC was used instead of moderate sedation for this patient. Matheus Abdul DO 11/15/2021 3:39:15 PM This report has been signed electronically. Addendum Number: 2 Addendum Date: 11/15/2021 3:39:33 PM MAC was used instead of moderate sedation for this patient. Matheus Abdul DO 11/15/2021 3:39:50 PM This report has been signed electronically.
--- NOTE | 2020-11-25 08:29 | OP.CCLET_ITS ---
11/15/2021 Cem Jewell [address] [place] [address] Re : Colonoscopy procedure for Kathy Puri Dear Dr. Jewell This procedure was performed on Wednesday, November 25, 2020. My impressions and recommendations are as follows: Impressions : - Moderate diverticulosis in the proximal sigmoid colon. There was evidence of recent bleeding from the diverticular opening. - Two 2 mm polyps in the sigmoid colon, in the descending colon and in the mid descending colon, removed with a jumbo cold forceps. Resected and retrieved. Recommendations : - Ad[facility] the [facility] for [facility] same day. - Resume previous diet. - Repeat colonoscopy is recommended for surveillance of multiple polyps. The colonoscopy date will be determined after pathology results from today's exam become available for review. - Resume Plavix (clopidogrel) at prior dose today. Refer to managing physician for further adjustment of therapy. My findings are described in the full procedure note, which is enclosed. If I can be of further assistance, please feel free to contact me at . Sincerely, Matheus Abdul, 11/25/2020 8:27:56 AM This report has been signed electronically.
[2020-11-25] MEDS: Ascorbic Acid 500 MG Tablet PO (08:43)
[2020-11-25] MEDS: Isosorbide Mononitrate 60 MG Tablet PO (08:43)
[2020-11-25] MEDS: Dicyclomine 10 MG Capsule PO ×2 (08:43→13:37)
[2020-11-25] MEDS: Multivitamins,Therapeutic Tablet 1 TABLET PO (08:43)
[2020-11-25] MEDS: Furosemide 20 MG Tablet PO (08:44)
[2020-11-25] MEDS: busPIRone 5 MG Tablet 10 MG PO ×2 (08:44→13:38)
[2020-11-25 09:27] LABS: Absolute Lymphocyte Count 0.44 X10^3/uL (0.83-4.51); Absolute Neutrophil Count 4.3 X10^3/uL (2.0-7.7); Basophil# 0.02 X10^3/uL; Basophil% 0.4 % (0-1); Eosinophil# 0.15 X10^3/uL; Eosinophils% 2.9 % (0-5); Hematocrit 31.1 % (37-47); Hemoglobin 9.7 g/dL (12.0-15.0); Lymphocyte # 0.44 X10^3/ul (0.83-4.51); Lymphocyte % 8.4 % (19-41); Mean Corp Hgb Conc 31.2 g/dL (32-36); Mean Corpuscular Hgb 27.6 pg (27.0-32.0); Mean Corpuscular Volume 88.4 fL (81-99); Mean Platelet Vol. 9.8 fl (6.2-12.0); Monocyte# 0.32 X10^3/uL; Monocyte% 6.1 % (0-10); NRBC Flagged by Analyzer 0 % (0-5); Neutrophil # 4.29 X10^3/uL (2.7-7.7); POSITIVE DIFFERENTIAL YES; Platelet Count 180 K/mm3 (150-450); RBC Distribution Width CV 12.8 % (11.6-14.6); RBC Distribution Width SD 40.4 fl (35.1-43.9); Red Blood Count 3.52 M/mm3 (4.2-5.4); White Blood Count 5.2 K/mm3 (4.4-11.0)
[2020-11-25 09:29] LABS: Differential Indicated SCAN CRITERIA MET
[2020-11-25 09:44] LABS: Anion Gap 4 (5-15); BUN 7 mg/dL (7-18); BUN/Creat Ratio 8.4 RATIO (10-20); Calcium,Total 8.4 mg/dL (8.5-10.1); Chloride 110 mmol/L (98-107); Creatinine, Serum 0.84 mg/dL (0.55-1.02); EST Glomerular Filtration Rate 71 mL/min (>60); Est Glom Filt Rate - Afr Amer 86 mL/min (>60); Estimated Creatinine Clearance 48.58 ml/min; Glucose 92 mg/dL (74-106); Potassium 3.9 mmol/L (3.5-5.1); Sodium Level 140 mmol/L (136-145)
[2020-11-25 10:17] LABS: Differential Comment SCANNED
--- NOTE | 2020-11-25 11:51 | DS.PCM_ITS ---
Providers Date of Admission: 11/24/20 Primary Care Physician: Dr. Cem Jewell MD Consultations 11/24/20 13:23 Consult: Gastroenterology Routine Consulting Provider: Sudeep Gastroenterology Reason for Consult: melena EMERGENT Consult: No MD Notified: Yes Date Notified: 11/24/20 Time Notified: 12:20 Method of Notification: Text Reason For Visit: MELENA STOOLS Diagnosis Discharge Diagnosis (1) Acute upper GI bleed: Status: Acute Code(s): K92.2 - Gastrointestinal hemorrhage, unspecified (2) Acute blood loss anemia: Status: Acute Code(s): D62 - Acute posthemorrhagic anemia Medications at Discharge Home Medications atorvastatin 40 mg tablet 40 mg PO QHS tablet 07/09/19 dicyclomine 10 mg capsule 10 mg PO 4X/DAY 07/09/19 clopidogrel 75 mg PO QHS 08/30/19 isosorbide mononitrate 60 mg PO DAILY 06/06/20 metoprolol tartrate 100 mg PO BID 06/06/20 albuterol sulfate 90 mcg/actuation aerosol inhaler 1 - 2 puff INHALATION Q4H PRN PRN #1 inhaler 07/06/20 furosemide 40 mg tablet 20 mg PO BID tab 08/04/20 gabapentin See Rx Instructions .ROUTE .COMPLEX 08/22/20 BuSpar 10 mg PO/SL TID 09/21/20 multivitamin 1 tab PO DAILY 10/06/20 ascorbic acid (vitamin C) [Vitamin C] 500 mg PO DAILY 11/24/20 fluticasone propion-salmeterol [Wixela Inhub] 1 inh INHALATION BID 11/24/20 lidocaine [Lidoderm] 1 patch TOPICAL Q12H 11/24/20 nitroglycerin [Nitrostat] 0.4 mg SUBLINGUAL Q5M PRN 11/24/20 trazodone 150 mg PO QHS 11/24/20 vitamin E 2 cap PO DAILY 11/24/20 pantoprazole 40 mg PO DAILY #30 tab 11/25/20 Hospital Course Operations None Procedures Colonoscopy and EGD Summary of Care Provided Minutes Spent on Discharge: 45 Hospital Course: CURLY MORALES, is a 70 F with an extensive past medical history as outlined who presents via the ED on 11/24/2020 with a complaint of dark stools and abdominal pain. Patient was actually admitted about 3 days prior to this admission. for the same symptoms and had an EGD done yesterday. EGD was normal. Plan was for patient to have a colonoscopy today. Patient however signed out AGAINST MEDICAL ADVICE yesterday. She went home and got something to eat and subsequently started having abdominal pain with associated dark tarry stools. A colonoscopy had been scheduled for this morning so she came back to the ED because she thought she could come in and have her colonoscopy today. At time of review she complained of some lower abdominal pain but review of symptoms otherwise negative. Vitals showed blood pressure of 167/70, pulse rate of 59 and respiratory of 18 with temperature of 97.4 Fahrenheit. She took her Plavix last night but has not taken her Xarelto. CT of the abdomen and pelvis done showed enlargement of her infrarenal abdominal aortic aneurysm from 4.3 cm on previous examination to 4.9 cm with no evidence of rupture or leakage. She w as admitted to be managed for GI bleed. Gastroenterology was consulted and she had an EGD which showed antral gastritis and nonsevere nonerosive esophagitis as well as acute gastritis and also chronic gastritis. Colonoscopy showed moderate diverticulosis in the proximal sigmoid colon with evidence of recent bleeding from the diverticular opening and 2 mm polyps in the sigmoid colon in the descending colon and the mid descending colon which were removed. A diet was resumed and patient was stable. Hemoglobin remained stable at around 9. Per discussion with gastroenterology, patient was to stop taking the Xarelto but could continue on the Plavix. Patient was counseled about her increased risk of stroke and thromboembolic phenomenon from A. fib since that Xarelto has been discontinued, but was counseled that her risk of bleeding was increased whilst on the Xarelto. Patient confirmed understanding of this. She was discharged home on 11/25/2020. She was discharged on oral PPI and is to follow-up with her primary care doctor and gastroenterology. Of note, gastroenterology thought t hat her bleeding was likely diverticular in origin. Patient seen and examined prior to discharge. She had no complaints and felt well. She had not had any more dark stools. Review systems otherwise negative. Labs and vitals reviewed. Home medication reviewed and reconciled. Physical Exam Const alert, oriented x3 and no apparent distress General Appearance: cooperative and comfortable Orientation / Consciousness: awake Exam Limitations: no limitations HEENT normocephalic, head/scalp atraumatic, hearing grossly normal bilaterally and moist oral mucous membranes Eyes PERRL, EOMs intact bilaterally and conjunctivae normal Neck no lymphadenopathy, supple, no JVD and no carotid bruits Resp normal respiratory effort, no retractions, no use of accessory muscles and clear to auscultation bilaterally Cardio regular rate, regular rhythm, S1 normal heart sound, S2 normal heart sound and no murmurs GI normal to inspection, nondistended, normoactive bowel sounds and soft to palpation GI Narrative: no tenderness, guarding or rebound tenderness. Extremity normal to inspection, full ROM and no clubbing, cyanosis or edema Skin no rashes or lesions noted Neuro oriented x3, CN's II-XII intact bilaterally and moves all extremities Sensorium / Orientation: awake and alert Psych affect normal Weight / BMI Weight Weight: 138 lb 3.677 oz Body Mass Index (BMI) 25.2 ABG / Lab / Microbiology Data Result Diagrams: 11/25/20 09:15 11/25/20 09:15 Laboratory: Laboratory Results - last 24 hr 11/25/20 09:15: WBC 5.2, RBC 3.52 L, Hgb 9.7 L, Hct 31.1 L, MCV 88.4, MCH 27.6, MCHC 31.2 L, RDW Std Deviation 40.4, RDW Coeff of Natalie 12.8, Plt Count 180, MPV 9.8, Immature Gran % (Auto) 0.200, Neut % (Auto) 82.0 H, Lymph % (Auto) 8.4 L, [place] % (Auto) 6.1, Eos % (Auto) 2.9, Baso % (Auto) 0.4, Absolute Neuts (auto) 4.3, Absolute Lymphs (auto) 0.44 L, Nucleated RBC % 0, Differential Comment SCANNED 11/25/20 09:15: Sodium 140, Potassium 3.9, Chloride 110 H, Carbon Dioxide 26.0, Anion Gap 4 L, BUN 7, Creatinine 0.84, Estim Creat Clear Calc 48.58, Est GFR (MDRD) Af Amer 86, Est GFR (MDRD) Non-Af 71, BUN/Creatinine Ratio 8.4 L, Glucose 92, Calcium 8.4 L D/C Instructions Discharge Diet: Low fat / Low cholesterol Call your doctor if you observe: Fever of 101 or Higher, Swelling in the ankles and Increased palpitations (irregular heartbeat) Meaningful Use Info Meaningful Use Diagnoses (Choose all that apply): None applicable Discharge Plan Admission Admit Date/Time: 11/24/20 12:21 Primary Reason for Your Visit: acute GI bleed, acute blood loss anemia Attending Provider: Anjana Santos Primary Care Provider: Cem Jewell Instructions Patient Instructions: Bleeding Gastrointestinal, Anemia Discharge Orders/Prescriptions Prescriptions: New pantoprazole 40 mg tablet,delayed release (DR/EC) 40 mg PO DAILY Qty: 30 RF: 1 Continued atorvastatin 40 mg tablet 40 mg PO QHS RF: 0 dicyclomine 10 mg capsule 10 mg PO 4X/DAY RF: 0 multivitamin Tablet 1 tab PO DAILY RF: 0 clopidogrel 75 MG tablet 75 mg PO QHS RF: 0 BuSpar 5 mg 10 mg PO/SL TID RF: 0 metoprolol tartrate 100 MG tablet 100 mg PO BID RF: 0 isosorbide mononitrate 60 MG tablet extended release 24 hr 60 mg PO DAILY RF: 0 gabapentin 100 MG capsule See Rx Instructions .ROUTE .COMPLEX RF: 0 ascorbic acid (vitamin C) [Vitamin C] 500 mg Tablet 500 mg PO DAILY RF: 0 lidocaine [Lidoderm] 5 % Adhesive Patch,Medicated 1 patch TOPICAL Q12H RF: 0 nitroglycerin [Nitrostat] 0.4 mg Tablet, Sublingual 0.4 mg SUBLINGUAL Q5M PRN (Reason: Chest Pain) RF: 0 vitamin E 1,200 unit Capsule 2 cap PO DAILY RF: 0 fluticasone propion-salmeterol [Wixela Inhub] 500-50 mcg/dose blister with device 1 inh INHALATION BID RF: 0 trazodone 150 mg Tablet 150 mg PO QHS RF: 0 albuterol sulfate 90 mcg/actuation HFA aerosol inhaler 1 - 2 puff INHALATION Q4H PRN PRN (Reason: Dyspnea, wheezing) Qty: 1 RF: 6 furosemide 40 mg tablet 20 mg PO BID RF: 0 Discontinued famotidine 20 mg tablet 20 mg PO BID RF: 0 rivaroxaban 20 MG tablet 20 mg PO DAILY@1700 RF: 0 Referrals / Follow Up: Cem Jewell MD [Primary Care Provider] - Disposition Disposition (needs filled in before D/C Order can be placed): Home, Self Care Charges/Coding Visit Charges Inpatient E&M: 80112 Disch Hosp
--- NOTE | 2020-11-30 16:26 | CASEMGMT ---
EZEKIEL PALMER Discharge Follow-up Phone Call: HEVER: Bernabe Strata: 3 Call Date: 11/30/20 Discharge Date: 11/25/20 Time of Call: 1625 Admitting Diagnosis: GI Bleed This EZEKIEL CM contacted pt via phone in follow-up to her discharge. Pt states she has been doing alright and denies any dizziness, bright red stool, or difficulty eating or drinking. Pt states her stools had been black but today was brown. Pt states she was eating a steak and potatoes at this time. Pt states Dr. Abdul's office did call her and she called them back and she is awaiting a return call to determine the next steps. Pt denied any questions regarding her discharge instructions or medications. Irineo Zavala RN CM
== END 2020-11-25 14:15 | disposition home or self-care (01) | DRG 378 ==
LOC: ED 12:36 → MS3 14:46
PROVIDERS: Internal Medicine Gastroenterology; Admitting Provider Student in an Organized Health Care Education/Training Program; Emergency Provider Emergency Medicine; PCP Family Medicine; Visit Provider Student in an Organized Health Care Education/Training Program
PROC: 0DJD8ZZ Inspection of Lower Intestinal Tract, Via Natural or Artificial Opening Endoscopic (ICD-10-PCS; CPT 45378; principal; 2020-11-25 07:00)
DX: K57.31 Diverticulosis of large intestine without perforation or abscess with bleeding (principal); D62 Acute posthemorrhagic anemia; D12.4 Benign neoplasm of descending colon; D12.5 Benign neoplasm of sigmoid colon; N18.4 Chronic kidney disease, stage 4 (severe); I50.42 Chronic combined systolic (congestive) and diastolic (congestive) heart failure; I13.0 Hypertensive heart and chronic kidney disease with heart failure and stage 1 through stage 4 chronic kidney disease, or unspecified chronic kidney disease; E78.5 Hyperlipidemia, unspecified; I48.19 Other persistent atrial fibrillation; M06.9 Rheumatoid arthritis, unspecified; I73.9 Peripheral vascular disease, unspecified; G47.33 Obstructive sleep apnea (adult) (pediatric); I25.10 Atherosclerotic heart disease of native coronary artery without angina pectoris; I25.2 Old myocardial infarction; I42.8 Other cardiomyopathies; F32.9 Major depressive disorder, single episode, unspecified; K21.00 Gastro-esophageal reflux disease with esophagitis, without bleeding; F41.9 Anxiety disorder, unspecified; K29.50 Unspecified chronic gastritis without bleeding; J44.9 Chronic obstructive pulmonary disease, unspecified; K58.9 Irritable bowel syndrome, unspecified; I71.4 Abdominal aortic aneurysm, without rupture; Z79.01 Long term (current) use of anticoagulants; Z79.02 Long term (current) use of antithrombotics/antiplatelets; Z86.16 Personal history of COVID-19; Z79.899 Other long term (current) drug therapy; Z95.5 Presence of coronary angioplasty implant and graft; Z95.0 Presence of cardiac pacemaker; Z87.01 Personal history of pneumonia (recurrent); Z86.19 Personal history of other infectious and parasitic diseases; Z87.891 Personal history of nicotine dependence
CPT/HCPCS: 43239; 45380; 74176; 80048; 80076; 81001; 83690; 85025; 85610; 85730; 87086; 87088; 88305; 88341; 88342; 94640; 96365; 96366; 96375; 97802; 99218; 99284; J7120; A4216; G0378; J2405

== ENCOUNTER → 2020-12-07 08:33 | Outpatient (CLI) | payer MEDICARE, MEDICAID, SELFPAY ==
[2019-07-16 09:26] VITALS: BMI 29.5
[2020-12-07 08:52] LABS: Absolute Neutrophil Count 5.5 X10^3/uL (2.0-7.7); Basophil# 0.03 X10^3/uL; Basophil% 0.4 % (0-1); Eosinophil# 0.15 X10^3/uL; Eosinophils% 2.1 % (0-5); Hematocrit 32.2 % (37-47); Lymphocyte % 13.9 % (19-41); Mean Corp Hgb Conc 31.1 g/dL (32-36); Mean Corpuscular Hgb 27.2 pg (27.0-32.0); Mean Corpuscular Volume 87.5 fL (81-99); Mean Platelet Vol. 10.2 fl (6.2-12.0); Monocyte# 0.54 X10^3/uL; Monocyte% 7.5 % (0-10); NRBC Flagged by Analyzer 0 % (0-5); Neutrophil # 5.47 X10^3/uL (2.7-7.7); Neutrophil % 75.7 % (47-70); Platelet Count 218 K/mm3 (150-450); RBC Distribution Width CV 12.6 % (11.6-14.6); RBC Distribution Width SD 40.2 fl (35.1-43.9); Red Blood Count 3.68 M/mm3 (4.2-5.4); White Blood Count 7.2 K/mm3 (4.4-11.0)
[2020-12-07 09:21] LABS: Iron 29 ug/dL (50-170); Iron Binding Capacity,Total 383 ug/dL (250-450); PERCENT IRON SATURATION 7.6 % (15.0-55.0)
== END ==
PROVIDERS: PCP Family Medicine; Referring Provider Surgery; Visit Provider Surgery
DX: D64.9 Anemia, unspecified (principal)
CPT/HCPCS: 36415; 83540; 83550; 85025

== ENCOUNTER → 2020-12-11 07:55 | Outpatient (CLI) | payer MEDICARE, MEDICAID, SELFPAY ==
[2019-07-16 09:26] VITALS: BMI 29.5
[2020-12-11 15:24] LABS: Vitamin D,25 Hydroxy 46.3 ng/mL
[2020-12-11 15:38] LABS: AST(SGOT) 20 U/L (15-37); Alanine Aminotransfer ALT/SGPT 22 U/L (13-56); Albumin, Serum 3.5 g/dL (3.2-5.0); Alkaline Phosphatase 108 U/L (45-117); Anion Gap 10 (5-15); BUN 22 mg/dL (7-18); BUN/Creat Ratio 18.5 RATIO (10-20); Calcium,Total 8.6 mg/dL (8.5-10.1); Chloride 101 mmol/L (98-107); Cholesterol 141 mg/dL (200); Creatinine, Serum 1.19 mg/dL (0.55-1.02); EST Glomerular Filtration Rate 47 mL/min (>60); Est Glom Filt Rate - Afr Amer 57 mL/min (>60); Globulin 3.6 g/dL (2.2-4.2); Glucose 87 mg/dL (74-106); High Density Lipoprotein 49 mg/dL; Magnesium 2.1 mg/dL (1.6-2.6); Potassium 3.9 mmol/L (3.5-5.1); Protein, Total 7.1 g/dL (6.4-8.2); Sodium Level 141 mmol/L (136-145); T4 Free Direct 1.05 ng/dL (0.76-1.46); Thyroid Stim Hormone (TSH) 2.86 uIU/mL (0.358-3.74); Triglycerides 110 mg/dL; Very Low Density Lipoprotein 22 mg/dL (5-40)
== END ==
PROVIDERS: PCP Family Medicine; Referring Provider Surgery; Visit Provider Surgery
DX: I48.91 Unspecified atrial fibrillation (principal); E04.1 Nontoxic single thyroid nodule; E55.9 Vitamin D deficiency, unspecified; D64.9 Anemia, unspecified; I10 Essential (primary) hypertension
CPT/HCPCS: 36415; 80053; 80061; 82274; 82306; 83735; 84439; 84443

== ENCOUNTER → 2020-12-14 10:16 | Outpatient (CLI) | payer MEDICARE, MEDICAID, SELFPAY ==
[2019-07-16 09:26] VITALS: BMI 29.5
--- NOTE | 2020-12-14 10:18 | US_ITS ---
STUDY: THYROID ULTRASOUND REASON FOR EXAM: Female, 70 years old. Thyroid nodules. TECHNIQUE: Ultrasound evaluation of the thyroid was performed with real-time and static martines-scale imaging. COMPARISON: None. FINDINGS: RIGHT LOBE: The right lobe of the thyroid gland is enlarged and measures 5.8 cm x 2.6 x 2.1 cm. There is a heterogeneous echotexture. There are 3 solid and cystic nodules in the right lobe. The largest heterogeneous solid and cystic nodule is in the midportion of the right lobe of the thyroid measuring 1.6 cm x 1.3 cm x 0.8 cm. Nodular vascularity is also seen. There is a 1.3 cm x 1.3 cm x 0.8 cm cystic nodule in the upper pole. There is an 8 mm x 6 mm x 4 mm solid and cystic nodule in the inferior pole. LEFT LOBE: The left lobe of the thyroid gland is enlarged and measures 5.8 cm x 2.2 cm x 1.9 cm. There is a heterogeneous echotexture. 3 solid and cystic nodules are seen. The largest solid and cystic nodule measures 1 cm x 0.87 x 0.6 cm and is in the upper pole. ISTHMUS: The isthmus measures 4 mm. The regional lymph nodes are normal. US/Thyroid IMPRESSION: Heterogeneous enlargement of both lobes of the thyroid of bilateral nodules as described. A dominant solid and cystic nodule is seen in the right lobe measuring 1.6 cm x 1.3 cm x 0.8 cm. Biopsy recommended. Electronically Signed: Brown Yanes MD at 14:09 EDT , Service support ,
== END ==
PROVIDERS: PCP Family Medicine; Referring Provider Family Medicine; Visit Provider Family Medicine
DX: E04.1 Nontoxic single thyroid nodule (principal)
CPT/HCPCS: 76536

== ENCOUNTER → 2020-12-19 08:35 | Outpatient (CLI) | payer MEDICARE, SELFPAY ==
[2019-07-16 09:26] VITALS: BMI 29.5
[2020-12-19 09:00] LABS: Absolute Lymphocyte Count 0.78 X10^3/uL (0.83-4.51); Absolute Neutrophil Count 3.5 X10^3/uL (2.0-7.7); Basophil# 0.02 X10^3/uL; Basophil% 0.4 % (0-1); Eosinophil# 0.14 X10^3/uL; Eosinophils% 2.9 % (0-5); Hematocrit 31.9 % (37-47); Hemoglobin 10.3 g/dL (12.0-15.0); Lymphocyte # 0.78 X10^3/ul (0.83-4.51); Mean Corp Hgb Conc 32.3 g/dL (32-36); Mean Corpuscular Hgb 28.1 pg (27.0-32.0); Mean Corpuscular Volume 86.9 fL (81-99); Mean Platelet Vol. 10.7 fl (6.2-12.0); Monocyte# 0.39 X10^3/uL; NRBC Flagged by Analyzer 0 % (0-5); Neutrophil # 3.53 X10^3/uL (2.7-7.7); Neutrophil % 72.3 % (47-70); Platelet Count 195 K/mm3 (150-450); RBC Distribution Width CV 13.6 % (11.6-14.6); RBC Distribution Width SD 41.2 fl (35.1-43.9); Red Blood Count 3.67 M/mm3 (4.2-5.4); White Blood Count 4.9 K/mm3 (4.4-11.0)
== END ==
PROVIDERS: PCP Family Medicine; Referring Provider Internal Medicine Gastroenterology; Visit Provider Internal Medicine Gastroenterology
DX: D64.9 Anemia, unspecified (principal)
CPT/HCPCS: 36415; 85025

== ENCOUNTER → 2020-12-29 11:57 | Outpatient (CLI) | payer MEDICARE, SELFPAY ==
[2019-07-16 09:26] VITALS: BMI 29.5
[2020-02-02 12:50] VITALS: BMI 29.9
[2020-12-29 12:23] VITALS: PULSE 62; PULSE 63; PULSE 64; PULSE 65; O2SAT 91; O2SAT 92; O2SAT 93; O2SAT 94
--- NOTE | 2020-12-29 15:51 | WT_ITS ---
PSN 6 Minute Walk Test 6 Minute Walk Test 6 Minute Walk Test: 6 Minute Walk Test PSN:6-Minute Walk Test Start: 12/29/20 12:23 Freq: Status: Active Protocol: [id number] Document 12/29/20 12:23 [facility] (Rec: 12/29/20 12:26 [facility] [id number]) 6 Minute Walk Test Date Performed 12/29/20 Time Performed 12:15 Height 5 ft 2 in Weight: 62.142 kg Weight in Pounds 137.[address]: Zack Marx Assistive device used: None Pre-test Oxygen Delivery Method Room Air Pulse Ox (%) 93 Pulse Rate (60-100 beats/min) 63 Dyspnea Sadie Scale (0-10) 0 1st minute Oxygen Delivery Method Room Air Pulse Ox (%) 94 Pulse Rate (60-100 beats/min) 62 Dyspnea Sadie Scale (0-10) 0 Number of Rests Taken 0 2nd minute Oxygen Delivery Method Room Air Pulse Ox (%) 92 Pulse Rate (60-100 beats/min) 64 Dyspnea Sadie Scale (0-10) 0 Number of Rests Taken 0 3rd minute Oxygen Delivery Method Room Air Pulse Ox (%) 92 Pulse Rate (60-100 beats/min) 65 Dyspnea Sadie Scale (0-10) 0 Number of Rests Taken 0 4th minute Oxygen Delivery Method Room Air Pulse Ox (%) 91 Pulse Rate (60-100 beats/min) 64 Dyspnea Sadie Scale (0-10) 0 Number of Rests Taken 0 5th minute Oxygen Delivery Method Room Air Pulse Ox (%) 92 Pulse Rate (60-100 beats/min) 64 Dyspnea Sadie Scale (0-10) 0 Number of Rests Taken 0 6th minute Oxygen Delivery Method Room Air Pulse Ox (%) 91 Pulse Rate (60-100 beats/min) 63 Dyspnea Sadie Scale (0-10) 0 Number of Rests Taken 0 Post-test Oxygen Delivery Method Room Air Pulse Ox (%) 94 Pulse Rate (60-100 beats/min) 62 Dyspnea Sadie Scale (0-10) 0 Full Laps Walked 16 Partial Lap, Number of Tiles Walked 27 Total Distance Walked (ft) 971 Interpretation Interpretation: The patient was able to ambulate 971 feet over the course of 6 minutes on room air with no assistive devices or breaks. The patient had an oxygen tameka of 91% and a peak heart rate of 64 bpm. These findings are consistent with a normal walking oximetry. Recommendations Recommendations: No supplemental oxygen is indicated at this time. However, given decreased baseline saturations this will be needed to be followed closely.
== END ==
PROVIDERS: PCP Family Medicine; Referring Provider Internal Medicine Critical Care Medicine; Visit Provider Internal Medicine Critical Care Medicine
DX: J41.0 Simple chronic bronchitis (principal)
CPT/HCPCS: 94618

== ENCOUNTER → 2021-01-03 11:57 | Outpatient (CLI) | payer MEDICARE, SELFPAY ==
[2019-07-16 09:26] VITALS: BMI 29.5
[2021-01-03 15:08] LABS: Absolute Lymphocyte Count 0.85 X10^3/uL (0.83-4.51); Absolute Neutrophil Count 4.8 X10^3/uL (2.0-7.7); Basophil# 0.03 X10^3/uL; Basophil% 0.5 % (0-1); Eosinophil# 0.11 X10^3/uL; Eosinophils% 1.8 % (0-5); Hematocrit 33.9 % (37-47); Hemoglobin 10.7 g/dL (12.0-15.0); Lymphocyte # 0.85 X10^3/ul (0.83-4.51); Lymphocyte % 13.8 % (19-41); Mean Corp Hgb Conc 31.6 g/dL (32-36); Mean Corpuscular Hgb 27.6 pg (27.0-32.0); Mean Corpuscular Volume 87.6 fL (81-99); Mean Platelet Vol. 11.4 fl (6.2-12.0); Monocyte# 0.41 X10^3/uL; Monocyte% 6.6 % (0-10); NRBC Flagged by Analyzer 0 % (0-5); Neutrophil # 4.77 X10^3/uL (2.7-7.7); Neutrophil % 77.1 % (47-70); Platelet Count 153 K/mm3 (150-450); RBC Distribution Width SD 46.6 fl (35.1-43.9); Red Blood Count 3.87 M/mm3 (4.2-5.4); White Blood Count 6.2 K/mm3 (4.4-11.0)
[2021-01-03 15:28] LABS: Ferritin 59 ng/mL (8-252); Iron 50 ug/dL (50-170); Iron Binding Capacity,Total 314 ug/dL (250-450)
== END ==
PROVIDERS: PCP Family Medicine; Referring Provider Family Medicine; Visit Provider Family Medicine
DX: D50.9 Iron deficiency anemia, unspecified (principal)
CPT/HCPCS: 36415; 82728; 83540; 83550; 85025

== ENCOUNTER → 2021-01-09 15:09 | Outpatient (CLI) | payer MEDICARE, SELFPAY ==
[2019-07-16 09:26] VITALS: BMI 29.5
--- NOTE | 2021-01-09 12:30 | FLU_PTH ---
PATIENT: CURLY MORALES LOC: [facility] U#:[id number] AGE/SX: 75/F ROOM: RE01/09/[address]: Dr. Sathish Gar MD : 1950 BED: DIS: SPEC #: [id number] RECD: 01/09/21 14:57 STATUS: SULLY MORALES #: [id number] KIM: 01/09/21 12:[address]: Sathish Gar DEPT: CYTOLOGY RECD BY: Nelia Sullivan ENTERED: 01/10/21 10:25 SP TYPE: Fluid OTHR DR: Dr. Cem Jewell MD Tissues: A - Thyroid gland, NOS B - Thyroid gland, NOS Procedures: Special Stain Group II Surgery Specimen Level IV Cytospin Fluid Cytology Other HEADER OPERATION: Right thyroid, fine needle aspiration PRE-OP DIAGNOSIS: Multiple thyroid nodules TISSUE SUBMITTED: A - Right upper thyroid cystic/solid nodule fluid, B - Right upper thyroid cystic/solid nodule x6 slides DIAGNOSIS CYTOLOGY A. Fine needle aspiration, right upper thyroid cyst/solid nodule (cytospin and cell block): Negative for malignant cells. See comment. B. Fine needle aspiration, right upper thyroid cyst/solid nodule (smears): Adequate for evaluation. Negative, consistent with benign follicular/colloid nodule. AM:margaret 01/11/2021 COMMENT A. The specimen contains rare benign follicular cells. CYTOLOGY STUDY Slides are reviewed. CYTOLOGY GROSS A - Received is 1 ml of duong-brownish cloudy fluid labeled with the patient's name and and designated per the requisition as right thyroid. Submitted for cytology preparation including cell block. B - Received are six smears labeled with the patient's name and designated per the requisition as right thyroid. Submitted for staining. / margaret 01/10/2021 TC:5 CPT: 08933, 36039, 89757
== END ==
PROVIDERS: PCP Family Medicine; Referring Provider Surgery; Visit Provider Surgery
DX: E04.2 Nontoxic multinodular goiter (principal)
CPT/HCPCS: 88108; 88161; 88305; 88313

== ENCOUNTER 2021-02-10 22:11 | Observation (INO) | payer MEDICARE, SELFPAY ==
[2019-07-16 09:26] VITALS: BMI 29.5
[2021-02-10 22:12] VITALS: BP 182/65; PULSE 64; RESP 22; TEMP 36.2; O2SAT 65; BMI 28.0
[2021-02-10 22:14] VITALS: O2SAT 84
--- NOTE | 2021-02-10 22:44 | EKG12_ITS ---
Test Reason : CP Blood Pressure : / mmHG Vent. Rate : 061 BPM Atrial Rate : 061 BPM P-R Int : 178 ms QRS Dur : 126 ms QT Int : 444 ms P-R-T Axes : 069 000 126 degrees QTc Int : 446 ms Normal sinus rhythm Non-specific intra-ventricular conduction block T wave abnormality, consider lateral ischemia Abnormal ECG Confirmed by HUYEN JEAN-BAPTISTE, TAYLOR ([id number]), scientific publications editor MAREN GRIMES ([id number]) on 02/13/2021 9:11:46 AM Referred By: Confirmed By:TAYLOR MATSON MD
--- NOTE | 2021-02-10 22:44 | CT_ITS ---
EXAM: CT ANGIOGRAPHY CHEST WITHOUT AND WITH INTRAVENOUS CONTRAST : 1950 CLINICAL INDICATION: hypoxia TECHNIQUE: Helically acquired angiography images were obtained of the chest without and with intravenous contrast. This CT exam was performed using one or more of the following dose reduction techniques: automated exposure control, adjustment of the mA and/or kV according to patient size, and/or use of iterative reconstruction technique. This report was created using [employer] report generation technology. MIP reconstructed images were created and reviewed. CONTRAST: IV 100mL [id number] COMPARISON: None. FINDINGS: PULMONARY ARTERIES: Unremarkable. Normal in caliber. No evidence of pulmonary embolism. AORTA: Unremarkable. Normal in caliber. No evidence of dissection. GREAT VESSELS OF AORTIC ARCH: Unremarkable. Normal in caliber. No evidence of dissection. LUNGS AND PLEURAL SPACES: Diffuse interstitial edema as well as patchy alveolar opacities. Small pleural effusions. No mass. No pneumothorax. HEART: Mild cardiomegaly. No pericardial effusion. No signs of right heart strain, ratio of right ventricle to left ventricle measures less than 1. MEDIASTINUM: Unremarkable. No mediastinal or hilar adenopathy. Esophagus is unremarkable. No hiatal hernia. THYROID: Unremarkable. No thyroid lesions. BONES/JOINTS: Degenerative changes of the spine. No suspicious lytic or blastic abnormality. TUBES, LINES AND DEVICES: Left chest pacer. CT/CTA Chest W/WO Contrast IMPRESSION: 1. No evidence of pulmonary embolism. 2. Diffuse interstitial edema as well as patchy alveolar opacities. Findings may indicate diffuse pulmonary edema, but superimposed infection is not excluded. 3. Small pleural effusions. Individualized dose optimization techniques were used for this CT. at 0007 Reported and signed by: Robb Morales MD Electronically Signed: Robb Morales MD at 0:06 EST Tel , Service support ,
--- NOTE | 2021-02-10 22:49 | EDS_ITS ---
HPI History of Present Illness Chief Complaint: Chest Pain Narrative Narrative: Patient is a 71-year-old female who states that she has had multiple heart issues with 10 stents placed. She states today around 7:00 she noticed diffuse chest discomfort with shortness of breath. She states there is been no fevers or chills and she denies any recent trauma. She states she waited for a few hours to see if the symptoms would resolve and as they have not she presents for evaluation. [facility] Medical History AAA (abdominal aortic aneurysm) without rupture Abdominal aortic aneurysm (AAA) Acute on chronic combined systolic (congestive) and diastolic (congestive) heart failure Acute on chronic diastolic (congestive) heart failure Anemia Anemia Angina pectoris Anxiety and depression Atherosclerotic heart disease of [place] coronary artery without angina pectoris Atrial fibrillation with RVR Atrial fibrillation with RVR Cancer Chronic kidney disease, stage 4 (severe) Claudication in peripheral vascular disease Congestive heart failure (CHF) COPD (chronic obstructive pulmonary disease) COVID-19 (01/01/20) Dyspnea on exertion Emphysema of lung Essential (primary) hypertension GERD (gastroesophageal reflux disease) HLD (hyperlipidemia) Hypokalemia IBS (irritable bowel syndrome) Injury of head and neck Nicotine dependence Non-ischemic cardiomyopathy Non-STEMI (non-ST elevated myocardial infarction) (03/19/19) Obesity BELLE (obstructive sleep apnea) PAD (peripheral artery disease) Paroxysmal atrial fibrillation Peripheral vascular occlusive disease Persistent atrial fibrillation Pneumonia due to 2019 novel coronavirus (01/01/20) Rheumatic fever Rheumatoid arthritis Sepsis (01/01/20) Sinus pause Smoking greater than 30 pack years Tachy-erica syndrome Unstable angina pectoris due to coronary arteriosclerosis Wheezing Home Medications dicyclomine 10 mg capsule 10 mg PO 4X/DAY 07/09/19 [History Last Taken 06/06/20] clopidogrel 75 mg PO QHS 08/30/19 [History Last Taken 07/18/20] isosorbide mononitrate 60 mg PO DAILY 06/06/20 [History Last Taken 07/18/20] metoprolol tartrate 100 mg PO BID 06/06/20 [History Last Taken 07/18/20] albuterol sulfate 90 mcg/actuation aerosol inhaler 1 - 2 puff INHALATION Q4H PRN PRN #1 inhaler 07/06/20 [Rx Last Taken Unknown] furosemide 40 mg tablet 20 mg PO BID tab 08/04/20 [History Last Taken Unknown] gabapentin See Rx Instructions .ROUTE .COMPLEX 08/22/20 [History Last Taken Unknown] BuSpar 10 mg PO/SL TID 09/21/20 [History Last Taken 11/24/20] fluticasone propion-salmeterol [Wixela Inhub] 1 inh INHALATION BID 11/24/20 [History Last Taken Unknown] nitroglycerin [Nitrostat] 0.4 mg SUBLINGUAL Q5M PRN 11/24/20 [History Last Taken Unknown] trazodone 150 mg PO QHS 11/24/20 [History Last Taken Unknown] pantoprazole 40 mg PO DAILY #30 tab 11/25/20 [Rx Last Taken Unknown] amiodarone 200 mg DAILY 11/30/20 [History Last Taken Unknown] amlodipine 2.5 mg DAILY 11/30/20 [History Last Taken Unknown] atorvastatin 40 mg tablet 40 mg PO DAILY 12/07/20 [History Last Taken Unknown] potassium chloride 20 mEq tablet,extended release 20 meq PO DAILY 12/07/20 [Hi story Last Taken Unknown] duloxetine 30 mg PO DAILY 02/10/21 [History Last Taken Unknown] Allergy/AdvReac Type Severity Reaction Status Date / Time lisinopril Allergy tongue Verified 02/10/21 22:14 swelling Family History Father Heart disease Hypertension Seizures Sister CVA (cerebral vascular accident) Hypertension Other Family history of hypertension Surgical History History of angioplasty of peripheral vessel History of bilateral leg stents History of bunionectomy of right great toe History of cardioversion (07/18/20) History of colonoscopy (06/2018) History of coronary artery stent placement (03/18/19) History of hysterectomy History of left heart catheterization (11/25/19) History of permanent cardiac pacemaker placement (03/27/20) History of tonsillectomy Hx of APLL Hx of hysterectomy Status post left foot surgery Social History household members: children and other housing: house Smoking Status: Former smoker how long ago did patient quit smokin months ago alcohol intake: never substance use type: does not use caffeine: No what type of physical activity do you participate in: none ROS ROS ED Constitutional Constitutional ED: Denies chills or fever(s) ENT ENT ED: Denies sore throat Cardiovascular Cardiovascular: Reports chest pain; Denies palpitations or racing heartbeat Respiratory/Chest Respiratory/Chest: Reports cough; Denies dyspnea Gastrointestinal Gastrointestinal: Denies abdominal pain, diarrhea, nausea or vomiting Genitourinary Genitourinary ED: Denies dysuria Musculoskeletal Musculoskeletal: Denies myalgias Integumentary Denies rash Neurologic Neurologic: Denies headache(s) Hematologic/Lymphatic Hematologic/Lymphatic: Reports easy bleeding and easy bruising EXAM Physical Exam Const Vital Signs: 02/10/21 22:12 02/10/21 22:14 02/10/21 22:18 Temperature 97.1 F L Temperature Source Temporal Pulse Rate 64 Respiratory Rate 22 H Respiratory Effort Short of Breath Respiratory Pattern Blood Pressure 182/65 H Blood Pressure Mean 104 Pulse Ox 65 84 Oxygen Delivery Method Room Air Nasal Cannula Oxygen Flow Rate (L/min) 6 Fraction of Inspired Oxygen (FIO2) 02/10/21 23:32 02/11/21 00:00 02/11/21 00:21 Temperature Temperature Source Pulse Rate 60 60 60 Respiratory Rate 18 15 16 Respiratory Effort Respiratory Pattern Normal Normal Blood Pressure 165/60 H 167/100 H Blood Pressure Mean 95 122 Pulse Ox 83 88 Oxygen Delivery Method Warm Humidified Isolette Airvo Oxygen Flow Rate (L/min) Fraction of Inspired Oxygen (FIO2) 100 02/11/21 00:33 02/11/21 00:53 02/11/21 01:05 Temperature Temperature Source Pulse Rate 60 60 60 Respiratory Rate 18 16 Respiratory Effort Respiratory Pattern Normal Blood Pressure 167/100 H 156/76 H Blood Pressure Mean 102 Pulse Ox 94 96 Oxygen Delivery Method Bi-pap Oxygen Flow Rate (L/min) 100 Fraction of Inspired Oxygen (FIO2) 100 02/11/21 01:06 Temperature 98.0 F Temperature Source Temporal Pulse Rate 60 Respiratory Rate 19 H Respiratory Effort Respiratory Pattern Blood Pressure 156/76 H Blood Pressure Mean 102 Pulse Ox 97 Oxygen Delivery Method Bi-pap Oxygen Flow Rate (L/min) Fraction of Inspired Oxygen (FIO2) Positive well nourished and well developed General Appearance ED: well developed HEENT Reports moist mucous membranes HEENT Narrative: No tongue or lip swelling no oral lesions no airway edema or compromise Eyes PERRL and EOMs intact bilaterally General Eye ED: Yes pale conjunctiva Neck supple and no JVD Chest Wall palpation of chest normal Chest Narrative: No bony deformity or crepitance no reproducible pain with palpation Resp normal respiratory effort Resp Narrative: Patient has diminished breath sounds throughout with diffuse rhonchi present Cardio regular rate and regular rhythm Rate: other Other Details: Radial pulses are +2-4 bilaterally are equal and symmetric GI normal to inspection, nondistended, normoactive bowel sounds, non-tender, non- distended and no masses GI Narrative: No voluntary guarding or rigidity no pulsatile mass Auscultation: normoactive bowel sounds Palpation: soft Extremity normal to inspection Extremity Narrative: No asymmetric edema no pitting edema negative Homans' sign bilaterally Neuro oriented x3 and CN's II-XII intact bilaterally Sensorium / Orientation: alert Motor Exam: strength 5/5 throughout Psych mental status grossly normal Skin no rashes or lesions noted Skin Narrative: Skin is pale in color MDM MDM MDM Narrative Medical decision making narrative: Patient presented to the ER satting in the low 80s on room air. She reported no need for supplemental oxygen at home. With this derangement to her vital signs as well as her report of chest discomfort I did elect to perform a CTA. CTA revealed no pulmonary embolus but does show diffuse interstitial edema. Her proBNP is also elevated at approximately 500. She was placed on high flow nasal cannula oxygen given steroids because of her history of COPD but had minimal improvement. Once the proBNP resulted and was elevated along with the CT read she was given Lasix and 1 sublingual nitro to help reduce preload. Patient did have slight improvement of her symptoms with this but still pulse ox remained in the mid to high 80s. Therefore should be transitioned to BiPAP secondary to the interstitial edema and congestive heart failure. Her initial and delta troponin are normal indicating no overt signs of cardiac damage. As she does not have a fever or white count I do not feel that this is infectious in nature and therefore do not believe there is need to provide antibiotic. Patient will be admitted to the hospital secondary to her acute on chronic respiratory failure with hypoxia from her congestive heart failure as she will require continued noninvasive pressure ventilation and supplemental oxygen. Lab Data Attestation: I reviewed the patient's lab results. Labs: Laboratory Results - last 24 hr 02/10/21 02/10/21 02/10/21 22:23 22:23 22:23 WBC 8.0 RBC 4.07 L Hgb 11.7 L Hct 34.9 L MCV 85.7 MCH 28.7 MCHC 33.5 RDW Std Deviation 49.3 H RDW Coeff of Natalie 15.6 H Plt Count 147 L MPV 11.0 Immature Gran % (Auto) 0.300 Neut % (Auto) 77.7 H Lymph % (Auto) 14.1 L [place] % (Auto) 6.5 Eos % (Auto) 1.1 Baso % (Auto) 0.3 Absolute Neuts (auto) 6.2 Absolute Lymphs (auto) 1.13 Nucleated RBC % 0 PT 15.3 H INR 1.3 APTT 26.8 Sodium 139 Potassium 3.4 L Chloride 104 Carbon Dioxide 27.0 Anion Gap 8 BUN 25 H Creatinine 1.20 H Estim Creat Clear Calc 31.98 Est GFR (MDRD) Af Amer 57 L Est GFR (MDRD) Non-Af 47 L BUN/Creatinine Ratio 20.8 H Glucose 117 H Calcium 8.7 Magnesium 1.9 Troponin I High Sens 14 B-Natriuretic Peptide 02/10/21 02/11/21 22:23 00:16 WBC RBC Hgb Hct MCV MCH MCHC RDW Std Deviation RDW Coeff of Natalie Plt Count MPV Immature Gran % (Auto) Neut % (Auto) Lymph % (Auto) [place] % (Auto) Eos % (Auto) Baso % (Auto) Absolute Neuts (auto) Absolute Lymphs (auto) Nucleated RBC % PT INR APTT Sodium Potassium Chloride Carbon Dioxide Anion Gap BUN Creatinine Estim Creat Clear Calc Est GFR (MDRD) Af Amer Est GFR (MDRD) Non-Af BUN/Creatinine Ratio Glucose Calcium Magnesium Troponin I High Sens 14 B-Natriuretic Peptide 518.9 H Radiography Diagnostic Testing: Clinical Impression(s) from Imaging Studies Chest CTA 02/10/21 22:44 IMPRESSION: 1. No evidence of pulmonary embolism. 2. Diffuse interstitial edema as well as patchy alveolar opacities. Findings may indicate diffuse pulmonary edema, but superimposed infection is not excluded. 3. Small pleural effusions. Individualized dose optimization techniques were used for this CT. at 0007 Reported and signed by: Robb Morales MD Electronically Signed: Robb Morales MD at 0:06 EST Tel , Service support , Critical Care Time Critical Care Time: Yes Critical care time (excluding procedures): - (Please note critical care time of 37 minutes) Discharge Plan Dx/Rx/DC Orders Clinical Impression: Acute respiratory failure with hypoxia, CHF exacerbation Disposition Disposition: Acute Care Hospital [facility]
[2021-02-10] MEDS: MethylPREDNISolone 125 MG/2 ML Vial IV (22:50)
[2021-02-10 22:52] LABS: Absolute Lymphocyte Count 1.13 X10^3/uL (0.83-4.51); Absolute Neutrophil Count 6.2 X10^3/uL (2.0-7.7); Basophil# 0.02 X10^3/uL; Basophil% 0.3 % (0-1); Eosinophil# 0.09 X10^3/uL; Eosinophils% 1.1 % (0-5); Hematocrit 34.9 % (37-47); Hemoglobin 11.7 g/dL (12.0-15.0); Lymphocyte # 1.13 X10^3/ul (0.83-4.51); Lymphocyte % 14.1 % (19-41); Mean Corp Hgb Conc 33.5 g/dL (32-36); Mean Corpuscular Hgb 28.7 pg (27.0-32.0); Mean Corpuscular Volume 85.7 fL (81-99); Monocyte# 0.52 X10^3/uL; Monocyte% 6.5 % (0-10); NRBC Flagged by Analyzer 0 % (0-5); Neutrophil # 6.22 X10^3/uL (2.7-7.7); Neutrophil % 77.7 % (47-70); Platelet Count 147 K/mm3 (150-450); RBC Distribution Width CV 15.6 % (11.6-14.6); RBC Distribution Width SD 49.3 fl (35.1-43.9); Red Blood Count 4.07 M/mm3 (4.2-5.4)
[2021-02-10] MEDS: Aspirin 325 MG Tablet PO (22:55)
[2021-02-10 22:57] LABS: International Normalized Ratio 1.3; Prothrombin Time (Protime)PT. 15.3 SECONDS (11.7-14.9)
[2021-02-10 22:58] LABS: Partial Thromboplast Time 26.8 Seconds (24.1-36.2)
[2021-02-10 23:07] LABS: Anion Gap 8 (5-15); BUN 25 mg/dL (7-18); BUN/Creat Ratio 20.8 RATIO (10-20); Calcium,Total 8.7 mg/dL (8.5-10.1); Chloride 104 mmol/L (98-107); EST Glomerular Filtration Rate 47 mL/min (>60); Est Glom Filt Rate - Afr Amer 57 mL/min (>60); Estimated Creatinine Clearance 31.98 ml/min; Glucose 117 mg/dL (74-106); Magnesium 1.9 mg/dL (1.6-2.6); Potassium 3.4 mmol/L (3.5-5.1); Sodium Level 139 mmol/L (136-145); Troponin-I HS 14 pg/mL (3.0-54.0)
[2021-02-10 23:32] VITALS: BP 165/60; PULSE 60; RESP 18; O2SAT 83
[2021-02-10 23:37] LABS: BNP,B-Type NATRIURETIC PEPTIDE 518.9 pg/mL (0-100)
[2021-02-11] VITALS (24 sets, daily range): BP systolic 137–167; BP diastolic 54–100; PULSE 60–72; RESP 14–24; TEMP 36.3–37; O2SAT 88–98; BMI 27.1
[2021-02-11] MEDS: Albuterol 2.5 MG/3 ML VIAL.NEB. INHALATION ×4 (00:19→19:15)
[2021-02-11] MEDS: Ipratropium/Albuterol Sulfate 3 ML AMPUL.NEB INHALATION (00:19)
[2021-02-11] MEDS: Furosemide 40 MG/4 ML Vial IV ×3 (00:30→17:30)
[2021-02-11] MEDS: Nitroglycerin SL (ED/IMG/CATH) 0.4 MG TABLET SL (00:33)
--- NOTE | 2021-02-11 00:37 | ED.RN ---
pt's pulse ox fluctuates from mid 80's to low 90's will monitor.did receieve lasix and is on aervo fi02 100%
[2021-02-11 00:39] LABS: Troponin-I HS 14 pg/mL (3.0-54.0)
--- NOTE | 2021-02-11 00:46 | ED.RN ---
rt notified for bipap,pulse ox 86%.pt states that has been on bipap and feels comfortable about it.
--- NOTE | 2021-02-11 01:53 | PCM.HP.STD ---
HPI - General General Date of Admission: 02/11/21 HPI Narrative CURLY MORALES, is a 71 F with a significant history of CAD status post 7 stents; atrial fibrillation who presents to the emergency department sudden onset of a persistent chest pain that started about 2 hours before presentation. Initially the chest pain was at her left chest and under her left breast but later it radiated to under her left breast. She described her chest pain as tightness and heaviness. The chest pain improved with bending. She denies any ameliorating factors for chest pain. She denies nausea vomiting or diaphoresis. She report that while emergency department she had hemoptysis. [facility] Medical History AAA (abdominal aortic aneurysm) without rupture Abdominal aortic aneurysm (AAA) Acute on chronic combined systolic (congestive) and diastolic (congestive) heart failure Acute on chronic diastolic (congestive) heart failure Anemia Anemia Angina pectoris Anxiety and depression Atherosclerotic heart disease of [place] coronary artery without angina pectoris Atrial fibrillation with RVR Atrial fibrillation with RVR Cancer Chronic kidney disease, stage 4 (severe) Claudication in peripheral vascular disease Congestive heart failure (CHF) COPD (chronic obstructive pulmonary disease) COVID-19 (01/01/20) Dyspnea on exertion Emphysema of lung Essential (primary) hypertension GERD (gastroesophageal reflux disease) HLD (hyperlipidemia) Hypokalemia IBS (irritable bowel syndrome) Injury of head and neck Nicotine dependence Non-ischemic cardiomyopathy Non-STEMI (non-ST elevated myocardial infarction) (03/19/19) Obesity BELLE (obstructive sleep apnea) PAD (peripheral artery disease) Paroxysmal atrial fibrillation Peripheral vascular occlusive disease Persistent atrial fibrillation Pneumonia due to 2019 novel coronavirus (01/01/20) Rheumatic fever Rheumatoid arthritis Sepsis (01/01/20) Sinus pause Smoking greater than 30 pack years Tachy-erica syndrome Unstable angina pectoris due to coronary arteriosclerosis Wheezing Home Medications dicyclomine 10 mg capsule 10 mg PO 4X/DAY 07/09/19 [History Last Taken 06/06/20] clopidogrel 75 mg PO QHS 08/30/19 [History Last Taken 07/18/20] isosorbide mononitrate 60 mg PO DAILY 06/06/20 [History Last Taken 07/18/20] metoprolol tartrate 100 mg PO BID 06/06/20 [History Last Taken 07/18/20] albuterol sulfate 90 mcg/actuation aerosol inhaler 1 - 2 puff INHALATION Q4H PRN PRN #1 inhaler 07/06/20 [Rx Last Taken Unknown] furosemide 40 mg tablet 20 mg PO BID tab 08/04/20 [History Last Taken Unknown] gabapentin See Rx Instructions .ROUTE .COMPLEX 08/22/20 [History Last Taken Unknown] BuSpar 10 mg PO/SL TID 09/21/20 [History Last Taken 11/24/20] fluticasone propion-salmeterol [Wixela Inhub] 1 inh INHALATION BID 11/24/20 [History Last Taken Unknown] nitroglycerin [Nitrostat] 0.4 mg SUBLINGUAL Q5M PRN 11/24/20 [History Last Taken Unknown] trazodone 150 mg PO QHS 11/24/20 [History Last Taken Unknown] pantoprazole 40 mg PO DAILY #30 tab 11/25/20 [Rx Last Taken Unknown] amiodarone 200 mg DAILY 11/30/20 [History Last Taken Unknown] amlodipine 2.5 mg DAILY 11/30/20 [History Last Taken Unknown] atorvastatin 40 mg tablet 40 mg PO DAILY 12/07/20 [History Last Taken Unknown] potassium chloride 20 mEq tablet,extended release 20 meq PO DAILY 12/07/20 [History Last Taken Unknown] duloxetine 30 mg PO DAILY 02/10/21 [History Last Taken Unknown] Calcium + Vitamin D 1 tab DAILY 02/11/21 [History Last Taken Unknown] Allergy/AdvReac Type Severity Reaction Status Date / Time lisinopril Allergy tongue Verified 02/10/21 22:14 swelling Family History Father Heart disease Hypertension Seizures Sister CVA (cerebral vascular accident) Hypertension Other Family history of hypertension Surgical History History of angioplasty of peripheral vessel History of bilateral leg stents History of bunionectomy of right great toe History of cardioversion (07/18/20) History of colonoscopy (06/2018) History of coronary artery stent placement (03/18/19) History of hysterectomy History of left heart catheterization (11/25/19) History of permanent cardiac pacemaker placement (03/27/20) History of tonsillectomy Hx of APLL Hx of hysterectomy Status post left foot surgery Social History household members: children and other housing: house Smoking Status: Former smoker how long ago did patient quit smokin months ago alcohol intake: never substance use type: does not use caffeine: No what type of physical activity do you participate in: none ROS ROS Narrative Constitutional: Denies fever, chills, fatigue. Eyes: Denies blurry vision, change in eye color, change in vision, discharge from eye(s), double vision, erythema, eye pain, loss of vision or other HEENT: Denies abnormal hearing, dysphagia, ear pain, epistaxis, headache(s), hearing loss, nasal congestion, nasal discharge, post nasal drip, sinus pressure, sore throat or other Cardiovascular: Reports chest pain. Denies orthopnea or proximal nocturnal dyspnea. Respiratory/Chest: Reports hemoptysis. Reports shortness of breath. Gastrointestinal: Denies abdominal pain, coffee ground emesis, constipation, diarrhea, dyspepsia, hematemesis, hematochezia, loose stools, melena, nausea, vomiting or other Genitourinary: Denies burning urination, difficulty urinating, dysuria, hematuria, nocturia, urinary frequency, urinary hesitancy, urinary incontinence, urinary urgency or other Musculoskeletal: Denies arthralgias, back pain, joint pain, joint stiffness, joint swelling, myalgias, neck pain or other Neurologic: Denies abnormal gait, abnormal speech, confusion, disequilibrium, dizziness, focal weakness, headache(s), numbness, paresthesias, seizure-like activity, seizures, syncope, tingling, tremor(s) or other Psychiatric: Denies anxiety, depression, homicidal ideation, suicidal ideation or other Endocrinology: Denies change in body appearance, cold intolerance, excessive sweating, heat intolerance, polydipsia, polyuria or other Hematologic/Lymphatic: Denies anemia, easy bleeding, easy bruising, lymphadenopathy or other Integumentary: Denies rashes Allergic/Immunologic: Denies rhinitis, hives, eczema, asthma or other Vital Signs Vital Signs Vital Signs: 02/10/21 22:12 02/10/21 22:14 02/10/21 22:18 Temperature 97.1 F L Temperature Source Temporal Pulse Rate 64 Respiratory Rate 22 H Respiratory Effort Short of Breath Respiratory Pattern Blood Pressure 182/65 H Blood Pressure Mean 104 Pulse Ox 65 84 Oxygen Delivery Method Room Air Nasal Cannula Oxygen Flow Rate (L/min) 6 Fraction of Inspired Oxygen (FIO2) 02/10/21 23:32 02/11/21 00:00 02/11/21 00:21 Temperature Temperature Source Pulse Rate 60 60 60 Respiratory Rate 18 15 16 Respiratory Effort Respiratory Pattern Normal Normal Blood Pressure 165/60 H 167/100 H Blood Pressure Mean 95 122 Pulse Ox 83 88 Oxygen Delivery Method Warm Humidified Isolette Airvo Oxygen Flow Rate (L/min) Fraction of Inspired Oxygen (FIO2) 100 02/11/21 00:33 02/11/21 00:53 02/11/21 01:05 Temperature Temperature Source Pulse Rate 60 60 60 Respiratory Rate 18 16 Respiratory Effort Respiratory Pattern Normal Blood Pressure 167/100 H 156/76 H Blood Pressure Mean 102 Pulse Ox 94 96 Oxygen Delivery Method Bi-pap Oxygen Flow Rate (L/min) 100 Fraction of Inspired Oxygen (FIO2) 100 02/11/21 01:06 Temperature 98.0 F Temperature Source Temporal Pulse Rate 60 Respiratory Rate 19 H Respiratory Effort Respiratory Pattern Blood Pressure 156/76 H Blood Pressure Mean 102 Pulse Ox 97 Oxygen Delivery Method Bi-pap Oxygen Flow Rate (L/min) Fraction of Inspired Oxygen (FIO2) Weight Weight: 67.4 kg Body Mass Index (BMI) 28.0 Physical Exam Narrative Physical exam: General: Well-nourished, well-developed. Head: Normocephalic, atraumatic, no tenderness Eyes: PERRLA, EOMI ENT, no trauma, moist mucous membranes, no rhinorrhea Neck: Nontender, full range of motion, no spinal tenderness, deformities, step-off CVS: Regular rate and rhythm. S1-S2 present. No murmur, gallop or rub. Respiratory : On AVAPS. Rales. No wheezing Abdomen: Soft, nontender, nondistended, normal bowel sounds, no masses : Deferred Back: Nontender, no CVA tenderness, no midline spinal tenderness, deformities, step-offs Extremities: Nontender full range of motion, no trauma Skin: Normal color, no trauma, abrasions Neuro: Alert, oriented, cranial nerves II through XII grossly intact. Psychiatry: Normal mood. Normal affect. Not depressed. Not anxious. Results Lab / Micro Data Result Diagrams: 02/10/21 22:23 02/10/21 22:23 Labs: Laboratory Results - last 24 hr 02/10/21 22:23: WBC 8.0, RBC 4.07 L, Hgb 11.7 L, Hct 34.9 L, MCV 85.7, MCH 28.7, MCHC 33.5, RDW Std Deviation 49.3 H, RDW Coeff of Natalie 15.6 H, Plt Count 147 L, MPV 11.0, Immature Gran % (Auto) 0.300, Neut % (Auto) 77.7 H, Lymph % (Auto) 14.1 L, [place] % (Auto) 6.5, Eos % (Auto) 1.1, Baso % (Auto) 0.3, Absolute Neuts (auto) 6.2, Absolute Lymphs (auto) 1.13, Nucleated RBC % 0 02/10/21 22:23: PT 15.3 H, INR 1.3, APTT 26.8 02/10/21 22:23: Sodium 139, Potassium 3.4 L, Chloride 104, Carbon Dioxide 27.0, Anion Gap 8, BUN 25 H, Creatinine 1.20 H, Estim Creat Clear Calc 31.98, Est GFR (MDRD) Af Amer 57 L, Est GFR (MDRD) Non-Af 47 L, BUN/Creatinine Ratio 20.8 H, Glucose 117 H, Calcium 8.7, Magnesium 1.9, Troponin I High Sens 14 02/10/21 22:23: B-Natriuretic Peptide 518.9 H 02/11/21 00:16: Troponin I High Sens 14 Micro: Microbiology 02/10/21 22:56 Nasal Secretion SARS-CoV-2 Antigen (Rapid) - Final Radiology Impression Chest CTA 02/10/21 22:44 IMPRESSION: 1. No evidence of pulmonary embolism. 2. Diffuse interstitial edema as well as patchy alveolar opacities. Findings may indicate diffuse pulmonary edema, but superimposed infection is not excluded. 3. Small pleural effusions. Individualized dose optimization techniques were used for this CT. at 0007 Reported and signed by: Robb Morales MD Electronically Signed: Robb Morales MD at 0:06 EST Tel , Service support , Assessment & Plan Assessment/Plan (1) Acute respiratory failure with hypoxia: (2) CHF exacerbation: QUALIFIERS: Heart failure type: systolic Qualified Code(s): I50.23 - Acute on chronic systolic (congestive) heart failure PLAN: Acute on chronic heart failure with reduced ejection fraction Place on monitored bed on PCU Weight on admission to the floor; and then daily Strict I&O's Chest CTA without pulmonary embolism but with interstitial edema. I agree with cristian interpretation above. EKG independently confirms T-wave inversions in leads V5 and V6 which are new compared to EKG on 11/21/2020. Emergency department labs reviewed elevated BNP of 518.9. Received Lasix 40 mg IV push x1 at the emergency department. Lasix 40 mg IV push twice daily ordered. Hold home p.o. Lasix. Escalate home potassium dosing. Review of records showed echocardiogram on 03/28/2020 was remarkable for estimated ejection fraction of 40%. Mild eccentric mitral valve insufficiency; mild to moderate tricuspid valve insufficiency. Pulmonary artery systolic pressure was 35 mmHg. Mild focal aortic valve calcifications. Echo ordered to evaluate LVEF and wall motion. Monitor electrolytes and renal function Trend blood pressure Titrate diuretics and heart failure/blood pressure medications with blood pressure. Fluid restriction of 1500 mls daily Cardiac diet ordered. Received nitroglycerin sublingual emergency department. Home Imdur continued. Metoprolol continued. Of note patient has lisinopril allergy of tongue swelling. Started on AVAPS at emergency department and continued. Paroxysmal A. fib Status post history of cardioversion. Amiodarone continued. Of note patient reported 3 months ago her Xarelto was stopped. Review of records shows that patient to admitted on 11/24/2020 and discharged on 11/25/2020 for GI bleed. She had an EGD and colonoscopy. Findings were antral gastritis; nonsevere nonerosive esophagitis ; acute gastritis and also chronic gastritis. Her bleeding was attributed to likely diverticular bleed. Plavix continued per GI recommendations. History of CAD CAD status post stent Plavix continued. High intensity statin continued. History of GI bleed Protonix continued. Anxiety disorder BuSpar continued. Hypertension Blood pressure is not within goal Imdur, amlodipine, and metoprolol continued Trend blood pressure and adjust blood pressure medications. Obstructive sleep apnea Start him afebrile emergency department. When patient is able to wean AVAPS, BiPAP ordered nightly. DVT prophylaxis: SCD ordered. No chemical prophylaxis secondary to recent history of GI bleed. Charges/Coding Visit Charges Inpatient E&M: 44847 Init Hosp L3
--- NOTE | 2021-02-11 02:48 | PCS.PANDOC ---
PANDEMIC DOCUMENTATION INITIATED: Date: 10/30/2020 Time: 190
--- NOTE | 2021-02-11 04:05 | NURSING ---
Pt not given oral potassium as they are on bipap at 100% d/t respiratory status and cannot tolerate taking bipap off at this time.
[2021-02-11 04:54] LABS: Absolute Lymphocyte Count 0.47 X10^3/uL (0.83-4.51); Absolute Neutrophil Count 7.1 X10^3/uL (2.0-7.7); Basophil# 0.01 X10^3/uL; Basophil% 0.1 % (0-1); Hematocrit 33.9 % (37-47); Hemoglobin 11.4 g/dL (12.0-15.0); Lymphocyte # 0.47 X10^3/ul (0.83-4.51); Lymphocyte % 6.1 % (19-41); Mean Corp Hgb Conc 33.6 g/dL (32-36); Mean Corpuscular Hgb 28.6 pg (27.0-32.0); Mean Corpuscular Volume 85.2 fL (81-99); Monocyte# 0.09 X10^3/uL; Monocyte% 1.2 % (0-10); NRBC Flagged by Analyzer 0 % (0-5); Neutrophil # 7.05 X10^3/uL (2.7-7.7); Neutrophil % 92.1 % (47-70); POSITIVE DIFFERENTIAL YES; Platelet Count 129 K/mm3 (150-450); RBC Distribution Width CV 15.5 % (11.6-14.6); RBC Distribution Width SD 47.5 fl (35.1-43.9); Red Blood Count 3.98 M/mm3 (4.2-5.4); White Blood Count 7.7 K/mm3 (4.4-11.0)
[2021-02-11 05:02] LABS: Differential Indicated SCAN CRITERIA MET
[2021-02-11 05:18] LABS: Anion Gap 8 (5-15); BUN 25 mg/dL (7-18); BUN/Creat Ratio 21.7 RATIO (10-20); Calcium,Total 8.4 mg/dL (8.5-10.1); Chloride 104 mmol/L (98-107); Creatinine, Serum 1.15 mg/dL (0.55-1.02); EST Glomerular Filtration Rate 49 mL/min (>60); Est Glom Filt Rate - Afr Amer 60 mL/min (>60); Estimated Creatinine Clearance 33.37 ml/min; Glucose 144 mg/dL (74-106); Potassium 3.8 mmol/L (3.5-5.1); Sodium Level 140 mmol/L (136-145); Troponin-I HS 14 pg/mL (3.0-54.0)
[2021-02-11 05:27] LABS: Differential Comment SCANNED
[2021-02-11] MEDS: Budesonide Respules 0.5 MG/2 ML AMPUL.NEB. INHALATION ×2 (07:39→19:15)
[2021-02-11] MEDS: Dicyclomine 10 MG Capsule PO ×4 (08:45→21:22)
[2021-02-11] MEDS: Calcium Carb/Vitamin D 1 TABLET Tablet PO (08:46)
[2021-02-11] MEDS: Amiodarone 200 MG Tablet PO (08:47)
[2021-02-11] MEDS: Metoprolol Tartrate 100 MG Tablet PO ×2 (08:47→21:21)
[2021-02-11] MEDS: amLODIPine 2.5 MG Tablet PO (08:47)
[2021-02-11] MEDS: Pantoprazole Sodium 40 MG Tablet PO (08:47)
[2021-02-11] MEDS: DULoxetine Hcl 30 MG Capsule PO (08:48)
[2021-02-11] MEDS: Enoxaparin 40 MG/0.4 ML Syringe SC (08:49)
[2021-02-11] MEDS: Isosorbide Mononitrate 60 MG Tablet PO (08:49)
[2021-02-11] MEDS: Potassium Chloride Oral Tablet 20 MEQ 40 MEQ PO (08:50)
[2021-02-11] MEDS: busPIRone 5 MG Tablet 10 MG PO ×3 (08:55→21:22)
--- NOTE | 2021-02-11 09:07 | NURSING ---
charge nurse Valorie will assess cardiac monitoring/tele strips
[2021-02-11] MEDS: Gabapentin 300 MG Capsule PO ×2 (14:32→17:29)
--- NOTE | 2021-02-11 15:00 | PCM.HOSP.N ---
Hospitalist Note Mrs. Puri is a 71-year-old female that has had multiple cardiac issues and presented to the emergency department late last evening with chest discomfort and shortness of breath. Upon presentation she was found of oxygen saturations in the 80s on room air. At baseline she is not on supplemental oxygen. A CTA was performed to rule out PE and she was found not to have pulmonary embolus but did show diffuse interstitial edema consistent with heart failure. Her proBNP was also elevated at 500. She was given Lasix and sublingual nitro to reduce preload and did have slight improvement in her symptoms but her pulse ox still remained into the mid to high 80s and she was placed on BiPAP. Her initial and delta troponin were normal. She did not have any signs or symptoms of infection. She was admitted to the PCU and continued on BiPAP and given diuresis with significant improvement and had been weaned to 8 L supplemental oxygen by 9 AM on 02/11/2021. She had diuresed almost a liter in the first several hours of admission. Her last echocardiogram was performed on 03/28/2020 and showed an EF of 40% with moderate global left ventricular systolic dysfunction and pulmonary artery pressures at 35 mmHg. We will repeat an echocardiogram tomorrow. Continue diuresis, I's and O's, fluid and salt restriction at this time. Patient may be ready for discharge in the next 24 hours if we are able to continue to wean her off oxygen and continue diuresis.
[2021-02-11] MEDS: Ferrous Sulfate 325 MG Tablet PO (17:29)
[2021-02-11] MEDS: 0.9% Saline Lock 10 ML Syringe IV (17:30)
[2021-02-11] MEDS: Clopidogrel Bisulfate 75 MG Tablet PO (21:21)
[2021-02-11] MEDS: Atorvastatin Calcium 40 MG Tablet PO (21:21)
[2021-02-11] MEDS: Gabapentin 600 MG Tablet PO (21:21)
[2021-02-11] MEDS: traZODone 50 MG Tablet 150 MG PO (21:22)
[2021-02-12] VITALS (9 sets, daily range): BP systolic 136–142; BP diastolic 54–60; PULSE 59–64; RESP 14–18; TEMP 36.6–37.1; O2SAT 92–99
[2021-02-12] MEDS: busPIRone 5 MG Tablet 10 MG PO (06:22)
[2021-02-12 06:48] LABS: Absolute Lymphocyte Count 0.97 X10^3/uL (0.83-4.51); Absolute Neutrophil Count 4.4 X10^3/uL (2.0-7.7); Basophil# 0.01 X10^3/uL; Basophil% 0.2 % (0-1); Eosinophil# 0.02 X10^3/uL; Eosinophils% 0.3 % (0-5); Hematocrit 31.2 % (37-47); Hemoglobin 10.4 g/dL (12.0-15.0); Lymphocyte # 0.97 X10^3/ul (0.83-4.51); Lymphocyte % 16.4 % (19-41); Mean Corp Hgb Conc 33.3 g/dL (32-36); Mean Corpuscular Hgb 28.7 pg (27.0-32.0); Mean Platelet Vol. 11.5 fl (6.2-12.0); Monocyte# 0.45 X10^3/uL; Monocyte% 7.6 % (0-10); NRBC Flagged by Analyzer 0 % (0-5); Neutrophil # 4.43 X10^3/uL (2.7-7.7); Neutrophil % 75.2 % (47-70); Platelet Count 142 K/mm3 (150-450); RBC Distribution Width CV 15.5 % (11.6-14.6); RBC Distribution Width SD 48.8 fl (35.1-43.9); Red Blood Count 3.63 M/mm3 (4.2-5.4); White Blood Count 5.9 K/mm3 (4.4-11.0)
[2021-02-12] MEDS: Albuterol 2.5 MG/3 ML VIAL.NEB. INHALATION (06:58)
[2021-02-12] MEDS: Budesonide Respules 0.5 MG/2 ML AMPUL.NEB. INHALATION (06:58)
[2021-02-12 07:07] LABS: Anion Gap 6 (5-15); BUN 27 mg/dL (7-18); BUN/Creat Ratio 25.7 RATIO (10-20); Calcium,Total 8.1 mg/dL (8.5-10.1); Chloride 106 mmol/L (98-107); Creatinine, Serum 1.05 mg/dL (0.55-1.02); EST Glomerular Filtration Rate 55 mL/min (>60); Est Glom Filt Rate - Afr Amer 66 mL/min (>60); Estimated Creatinine Clearance 36.55 ml/min; Glucose 86 mg/dL (74-106); Potassium 3.1 mmol/L (3.5-5.1); Sodium Level 143 mmol/L (136-145)
[2021-02-12] MEDS: Dicyclomine 10 MG Capsule PO (08:16)
[2021-02-12] MEDS: Calcium Carb/Vitamin D 1 TABLET Tablet PO (08:17)
[2021-02-12] MEDS: Amiodarone 200 MG Tablet PO (08:17)
[2021-02-12] MEDS: Potassium Chloride Oral Tablet 20 MEQ 40 MEQ PO (08:18)
[2021-02-12] MEDS: Pantoprazole Sodium 40 MG Tablet PO (08:18)
[2021-02-12] MEDS: amLODIPine 2.5 MG Tablet PO (08:18)
[2021-02-12] MEDS: Isosorbide Mononitrate 60 MG Tablet PO (08:19)
[2021-02-12] MEDS: DULoxetine Hcl 30 MG Capsule PO (08:19)
[2021-02-12] MEDS: Ferrous Sulfate 325 MG Tablet PO (08:23)
--- NOTE | 2021-02-12 09:40 | CASEMGMT ---
Call to Palliative and pt is active with them at this time. Pt is also active with [facility]. Per Donaldo at [facility], pt's daughter is on hospice for cancer and pt is concerned about her 13yo grandson, whom she assists daughter in caring for. Pt lives with daughter and grandson. CM to follow for home oxygen need and any further discharge planning/needs. Barbara FALCON CM
--- NOTE | 2021-02-12 10:35 | CASEMGMT ---
EZEKIEL PALMER assessment: Face to Face with patient for initial transition planning/care coordination assessment. EZEKIEL PALMER introduced self and role at [facility], pt voices understanding and consents to assessment. Pt is sitting up in chair in no distress on room air. Pt is A/Ox4 and answers all questions appropriately. Pt states did not really watch sodium intake over the holiday. Care providers, pharmacy, and demographics verified/updated. Presentation: Pt c/o CP with oxygen sat 65% Admitting dx: Acute on chronic HF PCP: [facility] Specialists: Kamila, cardio; [facility] vasc surgeon Leonor [facility] Prescription Benefit: Yes Living Will/HPOA: Pt states has LW/HPOA and is aware that they are on file at [facility]. Pt's daughter, Argelia Puri, is listed as HPOA with her son Gary as 2nd. Pt states she would like to complete new HPOA at this time and Zarina SW aware, voices understanding. LNOK: Argelia Puri, daughter; Christine Puri, [id number] Living Arrangements: Pt lives with daughter and grandson in 2 story home and states no concerns at home. Pt states is independent with ADL's. Pt is caring for her daughter with cancer and assists with 13yo grandson. Per pt, daughter is getting chemo and 'she's going to beat this', which is a conflicting report from [facility]. Pt does state that palliative is coming out to meet with daughter. Transportation: Pt states drives self and states no transportation concerns. DME/HHC: Pt has the following DME: cane, walker, and BSC. Pt states no need for any further DME. Pt states has had HHC in the past but has not been to SNF. Pt is active with [facility] and [facility] palliative. Palliative is aware of pt admission. Pt states no concerns with going home at time of discharge. Pt is retired. Pt states does not smoke cigarettes or drink ETOH. Pt states no further concerns/needs. CM to follow for home oxygen testing and any further discharge planning/needs. Pt states no preference for home oxygen company if qualifies at discharge. Advised pt to ask for CM if any further questions/concerns/needs arise, voices understanding. Pt Goal: Home Plan: Home w/ family [place] EZEKIEL PALMER
--- NOTE | 2021-02-12 10:48 | DCINST_ITS ---
Discharge Instructions Diet Discharge Diet: No restrictions Activity Discharge Activity: Return to Normal Activity Weight Bearing Status: Weight bearing as tolerated Dressing / Incision Call your doctor if you observe: Fever of 101 or Higher, Numbness or Tingling, Shortness of breath, Dizziness, Chest pain, Increased palpitations (irregular heartbeat) and Calf discomfort Follow Up Care Please Follow Up With: Primary care provider When: Within the next two weeks. Test Results: Test results from this visit will be discussed in further detail at your follow-up appointment, if applicable. Discharge Plan Admission Admit Date/Time: 02/11/21 01:36 Primary Reason for Your Visit: Heart failure exacerbation. Attending Provider: Stephan Newton Primary Care Provider: Cem Jewell Discharge Orders/Prescriptions Prescriptions: Continued dicyclomine 10 mg capsule 10 mg PO 4X/DAY RF: 0 atorvastatin 40 mg tablet 40 mg PO DAILY RF: 0 potassium chloride 20 mEq tablet extended release 20 meq PO DAILY RF: 0 clopidogrel 75 MG tablet 75 mg PO QHS RF: 0 BuSpar 10 mg 10 mg PO/SL TID RF: 0 amiodarone 200 mg 200 mg DAILY RF: 0 amlodipine 2.5 mg tablet 2.5 mg DAILY RF: 0 metoprolol tartrate 100 MG tablet 100 mg PO BID RF: 0 isosorbide mononitrate 60 MG tablet extended release 24 hr 60 mg PO DAILY RF: 0 gabapentin 100 MG capsule See Rx Instructions .ROUTE .COMPLEX RF: 0 nitroglycerin [Nitrostat] 0.4 mg Tablet, Sublingual 0.4 mg SUBLINGUAL Q5M PRN (Reason: Chest Pain) RF: 0 fluticasone propion-salmeterol [Wixela Inhub] 500-50 mcg/dose blister with device 1 inh INHALATION BID RF: 0 trazodone 150 mg Tablet 150 mg PO QHS RF: 0 pantoprazole 40 mg tablet,delayed release (DR/EC) 40 mg PO DAILY Qty: 30 RF: 1 duloxetine 30 mg capsule,delayed release(DR/EC) 30 mg PO DAILY RF: 0 Calcium + Vitamin D 1 tab DAILY RF: 0 ferrous sulfate 325 mg (65 mg iron) Tablet 325 mg PO BID RF: 0 albuterol sulfate 90 mcg/actuation HFA aerosol inhaler 1 - 2 puff INHALATION Q4H PRN PRN (Reason: Dyspnea, wheezing) Qty: 1 RF: 6 furosemide 40 mg tablet 20 mg PO BID RF: 0 Referrals / Follow Up: Cem Jewell MD [Primary Care Provider] - Within 2 Weeks Evelyn Collier PA [PHYSICIAN PHYSICIAN CODER] - Within 2 Weeks Disposition Disposition (needs filled in before D/C Order can be placed): Home, Self Care
--- NOTE | 2021-02-12 11:22 | ECHOD_ITS ---
Reason For Study: HEART FAILURE Procedure This was a 2D Doppler, Color Flow transthoracic echocardiogram. Exam performed portable in patient room. Left Ventricle Normal LV size. Mild concentric left ventricular hypertrophy. Left ventricular systolic function is normal. Stage 3 diastolic dysfunction. No regional wall motion abnormalities noted. Right Ventricle Normal RV size. Normal systolic function. Atria Normal left atrium. Normal right atrium. Mitral Valve Normal mitral valve. Moderate (2+) eccentric mitral valve insufficiency. Tricuspid Valve Normal tricuspid valve. Mild (1+) tricuspid valve insufficiency. Pulmonary artery systolic pressure is 38 mmHg. Aortic Valve Trisinus/trileaflet aortic valve. Mild (1+) aortic valve insufficiency. Great Vessels Normal aortic root. The pulmonary artery is normal size. Normal inferior vena cava. Pericardium/Pleural No pericardial effusion. MMode/2D Measurements & Calculations LVIDd: 5.2 cm IVSd: 1.2 cm Ao root diam: 3.5 cm LVIDs: 3.8 cm LVPWd: 1.3 cm RVDd: 3.5 cm FS: 27.1 % LAV(MOD-bp): 87.3 ml LA A4 area: 22.1 cm2 LA dimension(2D): 5.1 cm LAV(MOD-bp) Indexed: 53.6 ml/m2 LAV(MOD-sp2): 98.7 ml LAV(MOD-sp4): 69.1 ml RA A4 area: 15.9 cm2 Time Measurements MV dec time: 0.17 sec Doppler Measurements & Calculations MV E max johan: 150.8 cm/sec Lat Peak E' Johan: 7.0 cm/sec Med Peak E' Johan: 6.0 cm/sec MV A max johan: 45.7 cm/sec E/E' lat: 21.4 E/E' med: 25.1 MV E/A: 3.3 MV V2 max: 165.7 cm/sec Ao V2 max: 137.2 cm/sec AI max johan: 363.0 cm/sec MV max P.0 mmHg Ao max P.5 mmHg AI max P.8 mmHg MV V2 mean: 68.0 cm/sec AI dec slope: 205.3 cm/sec2 MV mean P.4 mmHg AI P1/2t: 517.9 msec MV V2 VTI: 35.9 cm LV V1 max: 98.8 cm/sec MR max johan: 527.2 cm/sec PA V2 max: 103.8 cm/sec LV V1 max P.9 mmHg MR max P.2 mmHg TR max johan: 288.1 cm/sec TR max P.5 mmHg ECHO/Echo Complete Interpretation Summary Normal LV size. Mild concentric left ventricular hypertrophy. Left ventricular systolic function is normal. Stage 3 diastolic dysfunction. Moderate (2+) eccentric mitral valve insufficiency. Mild (1+) aortic valve insufficiency. Ordering Physician: Brian Oliver Referring Physician: Cem Jewell Performed By: Laura Farah RDCS, RVT
[2021-02-12] MEDS: Metoprolol Tartrate 100 MG Tablet PO (11:34)
[2021-02-12] MEDS: Gabapentin 300 MG Capsule PO (11:35)
[2021-02-12] MEDS: Furosemide 40 MG/4 ML Vial IV (11:35)
[2021-02-12] MEDS: 0.9% Saline Lock 10 ML Syringe IV (11:36)
--- NOTE | 2021-02-12 11:42 | CASEMGMT ---
Per Heather FALCON, pt does not qualify for home oxygen at this time. Pt voices no further questions/concerns/needs. Barbara FALCON CM
--- NOTE | 2021-02-12 11:48 | CASEMGMT ---
SW assisted pt in completing POA for Healthcare, pt put daughter in law Christine White as healthcare POA. SW gave pt original and copy, and a copy was placed on the chart. SW also reviewed LW, pt was not ready to complete this document today. SW gave pt the form, should she want to complete it at a later time. NESTOR Galindo
--- NOTE | 2021-02-12 14:08 | DS.PCM_ITS ---
Documented by User: Cem QUIROZ 02/12/21 14:17 Providers Date of Admission: 02/11/21 Primary Care Physician: Dr. Cem Jewell MD Reason For Visit: ACUTE ON CHRONIC HEART FAILURE WITH REDUCED EF Diagnosis Discharge Diagnosis (1) Acute respiratory failure with hypoxia: Status: Acute Code(s): J96.01 - Acute respiratory failure with hypoxia (2) CHF exacerbation: Status: Chronic Code(s): I50.9 - Heart failure, unspecified Qualifiers: Heart failure type: systolic Qualified Code(s): I50.23 - Acute on chronic systolic (congestive) heart failure Medications at Discharge Home Medications dicyclomine 10 mg capsule 10 mg PO 4X/DAY 07/09/19 clopidogrel 75 mg PO QHS 08/30/19 isosorbide mononitrate 60 mg PO DAILY 06/06/20 metoprolol tartrate 100 mg PO BID 06/06/20 albuterol sulfate 90 mcg/actuation aerosol inhaler 1 - 2 puff INHALATION Q4H PRN PRN #1 inhaler 07/06/20 furosemide 40 mg tablet 20 mg PO BID tab 08/04/20 gabapentin See Rx Instructions .ROUTE .COMPLEX 08/22/20 BuSpar 10 mg PO/SL TID 09/21/20 fluticasone propion-salmeterol [Wixela Inhub] 1 inh INHALATION BID 11/24/20 nitroglycerin [Nitrostat] 0.4 mg SUBLINGUAL Q5M PRN 11/24/20 trazodone 150 mg PO QHS 11/24/20 pantoprazole 40 mg PO DAILY #30 tab 11/25/20 amiodarone 200 mg DAILY 11/30/20 amlodipine 2.5 mg DAILY 11/30/20 atorvastatin 40 mg tablet 40 mg PO DAILY 12/07/20 potassium chloride 20 mEq tablet,extended release 20 meq PO DAILY 12/07/20 duloxetine 30 mg PO DAILY 02/10/21 Calcium + Vitamin D 1 tab DAILY 02/11/21 ferrous sulfate 325 mg PO BID 02/11/21 Hospital Course Procedures 2-D Echocardiogram and Transthoracic echo Summary of Care Provided Minutes Spent on Discharge: 35 Hospital Course: Patient is a 71-year-old female who was admitted on the evening of 02/11/2021 due to shortness of breath for acute on chronic CHF exacerbation with reduced ejection fraction. Patient was placed on IV diuretics and updated echocardiogram was obtained. New echocardiogram demonstrated normal LV size and systolic function, moderate mitral valve insufficiency and stage III diastolic dysfunction. Patient's breathing is significantly improved overnight on a course of IV diuretics. Home CHF regimen includes Lasix 20 mg daily and metoprolol. Patient is not on ARTURO/ARB therapy due to allergies. Patient did not need home oxygen on discharge. All home medications were continued and patient is to follow-up with cardiology and primary care provider within the next 2 weeks. Patient seen by Cem Kessler PA-C, under the supervision of Dr. Newton. Physical Exam Narrative Patient is a 71-year-old female comfortably resting in a chair, alert and orient x3. Patient reports that her shortness of breath and admission has improved. Denies development of any new symptoms overnight. Does not appear in acute distress. Const alert, oriented x3 and no apparent distress HEENT normocephalic, head/scalp atraumatic, hearing grossly normal bilaterally and moist oral mucous membranes Eyes PERRL, EOMs intact bilaterally and conjunctivae normal Neck no lymphadenopathy, supple and no JVD Resp normal respiratory effort, no retractions, no use of accessory muscles and clear to auscultation bilaterally Cardio regular rate, regular rhythm, no murmurs and no JVD GI normal to inspection, nondistended, normoactive bowel sounds, soft to palpation and non-tender Extremity normal to inspection, full ROM and no clubbing, cyanosis or edema Skin no rashes or lesions noted, no wounds and skin turgor normal Neuro CN's II-XII intact bilaterally Psych affect normal Weight / BMI Weight Weight: 141 lb 12.116 oz Body Mass Index (BMI) 27.1 ABG / Lab / Microbiology Data Result Diagrams: 02/12/21 05:35 02/12/21 05:35 Laboratory: Laboratory Results - last 24 hr 02/12/21 05:35: WBC 5.9, RBC 3.63 L, Hgb 10.4 L, Hct 31.2 L, MCV 86.0, MCH 28.7, MCHC 33.3, RDW Std Deviation 48.8 H, RDW Coeff of Natalie 15.5 H, Plt Count 142 L, MPV 11.5, Immature Gran % (Auto) 0.300, Neut % (Auto) 75.2 H, Lymph % (Auto) 16.4 L, [place] % (Auto) 7.6, Eos % (Auto) 0.3, Baso % (Auto) 0.2, Absolute Neuts (auto) 4.4, Absolute Lymphs (auto) 0.97, Nucleated RBC % 0 02/12/21 05:35: Sodium 143, Potassium 3.1 L, Chloride 106, Carbon Dioxide 31.0, Anion Gap 6, BUN 27 H, Creatinine 1.05 H, Estim Creat Clear Calc 36.55, Est GFR (MDRD) Af Amer 66, Est GFR (MDRD) Non-Af 55 L, BUN/Creatinine Ratio 25.7 H, Glucose 86, Calcium 8.1 L Microbiology: Microbiology 02/10/21 22:56 Nasal Secretion SARS-CoV-2 Antigen (Rapid) - Final Radiography Diagnostic Testing: Radiology Impression Echocardiogram 02/12/21 11:22 Interpretation Summary Normal LV size. Mild concentric left ventricular hypertrophy. Left ventricular systolic function is normal. Stage 3 diastolic dysfunction. Moderate (2+) eccentric mitral valve insufficiency. Mild (1+) aortic valve insufficiency. Ordering Physician: Brian Oliver Referring Physician: Cem Jewell Performed By: Laura Farah RDCS, RVT D/C Instructions Discharge Diet: No restrictions Weight Bearing Status: Weight bearing as tolerated Call your doctor if you observe: Fever of 101 or Higher, Numbness or Tingling, Shortness of breath, Dizziness, Chest pain, Increased palpitations (irregular heartbeat) and Calf discomfort Please Follow Up With: Primary care provider When: Within the next two weeks. Meaningful Use Info Meaningful Use Diagnoses (Choose all that apply): CHF CHF ARTURO/ARB ordered at discharge?: No Reason ARTURO/ARB not ordered?: Allergy Documented LVEF (%): 40 Discharge Plan Admission Admit Date/Time: 02/11/21 01:36 Primary Reason for Your Visit: Heart failure exacerbation. Attending Provider: Stephan Newton Primary Care Provider: Cem Jewell Discharge Orders/Prescriptions Prescriptions: Continued dicyclomine 10 mg capsule 10 mg PO 4X/DAY RF: 0 atorvastatin 40 mg tablet 40 mg PO DAILY RF: 0 potassium chloride 20 mEq tablet extended release 20 meq PO DAILY RF: 0 clopidogrel 75 MG tablet 75 mg PO QHS RF: 0 BuSpar 10 mg 10 mg PO/SL TID RF: 0 amiodarone 200 mg 200 mg DAILY RF: 0 amlodipine 2.5 mg tablet 2.5 mg DAILY RF: 0 metoprolol tartrate 100 MG tablet 100 mg PO BID RF: 0 isosorbide mononitrate 60 MG tablet extended release 24 hr 60 mg PO DAILY RF: 0 gabapentin 100 MG capsule See Rx Instructions .ROUTE .COMPLEX RF: 0 nitroglycerin [Nitrostat] 0.4 mg Tablet, Sublingual 0.4 mg SUBLINGUAL Q5M PRN (Reason: Chest Pain) RF: 0 fluticasone propion-salmeterol [Wixela Inhub] 500-50 mcg/dose blister with d evice 1 inh INHALATION BID RF: 0 trazodone 150 mg Tablet 150 mg PO QHS RF: 0 pantoprazole 40 mg tablet,delayed release (DR/EC) 40 mg PO DAILY Qty: 30 RF: 1 duloxetine 30 mg capsule,delayed release(DR/EC) 30 mg PO DAILY RF: 0 Calcium + Vitamin D 1 tab DAILY RF: 0 ferrous sulfate 325 mg (65 mg iron) Tablet 325 mg PO BID RF: 0 albuterol sulfate 90 mcg/actuation HFA aerosol inhaler 1 - 2 puff INHALATION Q4H PRN PRN (Reason: Dyspnea, wheezing) Qty: 1 RF: 6 furosemide 40 mg tablet 20 mg PO BID RF: 0 Referrals / Follow Up: Cem Jewell MD [Primary Care Provider] - 02/19/21 1:30 pm () Evelyn Collier PA [PHYSICIAN DIGITAL DEVELOPER] - 02/26/21 2:00 pm Disposition Disposition (needs filled in before D/C Order can be placed): Home, Self Care Documented by User: Dr. Stephan Newton MD 02/12/21 15:15 Providers Date of Admission: 02/11/21 Reason For Visit: ACUTE ON CHRONIC HEART FAILURE WITH REDUCED EF Medications at Discharge Home Medications dicyclomine 10 mg capsule 10 mg PO 4X/DAY 07/09/19 clopidogrel 75 mg PO QHS 08/30/19 isosorbide mononitrate 60 mg PO DAILY 06/06/20 metoprolol tartrate 100 mg PO BID 06/06/20 albuterol sulfate 90 mcg/actuation aerosol inhaler 1 - 2 puff INHALATION Q4H PRN PRN #1 inhaler 07/06/20 furosemide 40 mg tablet 20 mg PO BID tab 08/04/20 gabapentin See Rx Instructions .ROUTE .COMPLEX 08/22/20 BuSpar 10 mg PO/SL TID 09/21/20 fluticasone propion-salmeterol [Wixela Inhub] 1 inh INHALATION BID 11/24/20 nitroglycerin [Nitrostat] 0.4 mg SUBLINGUAL Q5M PRN 11/24/20 trazodone 150 mg PO QHS 11/24/20 pantoprazole 40 mg PO DAILY #30 tab 11/25/20 amiodarone 200 mg DAILY 11/30/20 amlodipine 2.5 mg DAILY 11/30/20 atorvastatin 40 mg tablet 40 mg PO DAILY 12/07/20 potassium chloride 20 mEq tablet,extended release 20 meq PO DAILY 12/07/20 duloxetine 30 mg PO DAILY 02/10/21 Calcium + Vitamin D 1 tab DAILY 02/11/21 ferrous sulfate 325 mg PO BID 02/11/21 Hospital Course Operations None Summary of Care Provided Minutes Spent on Discharge: 35 Hospital Course: This patient was seen in conjunction with Cem Kessler PA-C. I have independently interviewed and examined the patient and reviewed pertinent historical, laboratory, and other data. Please refer to Cem Kessler PA-C's note for details of this patient's presentation, findings, and recommendations. I have reviewed Cem Kessler PA-C's note and concur with documented find ings. In brief, patient 71-year-old lady admitted with shortness of breath diagnosed with acute on chronic congestive heart failure with reduced ejection fraction admitted to monitored bed for subsequent management Hospital course; as documented above ABG / Lab / Microbiology Data Result Diagrams: 02/12/21 05:35 02/12/21 05:35 Discharge Plan Admission Admit Date/Time: 02/11/21 01:36 Primary Reason for Your Visit: Heart failure exacerbation. Attending Provider: Stephan Newton Primary Care Provider: Cem Jewell Discharge Orders/Prescriptions Prescriptions: Continued dicyclomine 10 mg capsule 10 mg PO 4X/DAY RF: 0 atorvastatin 40 mg tablet 40 mg PO DAILY RF: 0 potassium chloride 20 mEq tablet extended release 20 meq PO DAILY RF: 0 clopidogrel 75 MG tablet 75 mg PO QHS RF: 0 BuSpar 10 mg 10 mg PO/SL TID RF: 0 amiodarone 200 mg 200 mg DAILY RF: 0 amlodipine 2.5 mg tablet 2.5 mg DAILY RF: 0 metoprolol tartrate 100 MG tablet 100 mg PO BID RF: 0 isosorbide mononitrate 60 MG tablet extended release 24 hr 60 mg PO DAILY RF: 0 gabapentin 100 MG capsule See Rx Instructions .ROUTE .COMPLEX RF: 0 nitroglycerin [Nitrostat] 0.4 mg Tablet, Sublingual 0.4 mg SUBLINGUAL Q5M PRN (Reason: Chest Pain) RF: 0 fluticasone propion-salmeterol [Wixela Inhub] 500-50 mcg/dose blister with device 1 inh INHALATION BID RF: 0 trazodone 150 mg Tablet 150 mg PO QHS RF: 0 pantoprazole 40 mg tablet,delayed release (DR/EC) 40 mg PO DAILY Qty: 30 RF: 1 duloxetine 30 mg capsule,delayed release(DR/EC) 30 mg PO DAILY RF: 0 Calcium + Vitamin D 1 tab DAILY RF: 0 ferrous sulfate 325 mg (65 mg iron) Tablet 325 mg PO BID RF: 0 albuterol sulfate 90 mcg/actuation HFA aerosol inhaler 1 - 2 puff INHALATION Q4H PRN PRN (Reason: Dyspnea, wheezing) Qty: 1 RF: 6 furosemide 40 mg tablet 20 mg PO BID RF: 0 Referrals / Follow Up: Cem Jewell MD [Primary Care Provider] - 02/19/21 1:30 pm () Evelyn Collier PA [PHYSICIAN DIGITAL DEVELOPER] - 02/26/21 2:00 pm Disposition Disposition (needs filled in before D/C Order can be placed): Home, Self Care Charges/Coding Visit Charges Inpatient E&M: 92613 Disch Hosp Hospital Course Imaging Results Imaging Results: 02/12/21 11:22 Echo Complete [ECHO] Routine Operations None
== END 2021-02-12 13:11 | disposition home or self-care (01) | DRG 291 ==
LOC: ED 02-11 01:01 → PCU 02-11 02:06
PROVIDERS: Internal Medicine; Admitting Provider Hospitalist; Emergency Provider Emergency Medicine; PCP Family Medicine; Visit Provider Internal Medicine
DX: I13.0 Hypertensive heart and chronic kidney disease with heart failure and stage 1 through stage 4 chronic kidney disease, or unspecified chronic kidney disease (principal); M06.9 Rheumatoid arthritis, unspecified; J44.9 Chronic obstructive pulmonary disease, unspecified; I50.23 Acute on chronic systolic (congestive) heart failure; I42.8 Other cardiomyopathies; N18.4 Chronic kidney disease, stage 4 (severe); I73.9 Peripheral vascular disease, unspecified; J96.01 Acute respiratory failure with hypoxia; I48.0 Paroxysmal atrial fibrillation; E78.5 Hyperlipidemia, unspecified; F32.A Depression, unspecified; G47.33 Obstructive sleep apnea (adult) (pediatric); F41.9 Anxiety disorder, unspecified; E66.9 Obesity, unspecified; Z68.28 Body mass index [BMI] 28.0-28.9, adult; I25.2 Old myocardial infarction; I25.10 Atherosclerotic heart disease of native coronary artery without angina pectoris; K21.9 Gastro-esophageal reflux disease without esophagitis; K58.9 Irritable bowel syndrome, unspecified; Z87.01 Personal history of pneumonia (recurrent); Z86.16 Personal history of COVID-19; Z95.0 Presence of cardiac pacemaker; Z95.5 Presence of coronary angioplasty implant and graft; Z79.02 Long term (current) use of antithrombotics/antiplatelets; Z79.899 Other long term (current) drug therapy; Z87.891 Personal history of nicotine dependence
CPT/HCPCS: 36415; 71275; 80048; 83735; 83880; 84484; 85025; 85610; 85730; 87426; 93005; 93306; 94002; 94640; 96372; 96374; 96375; 96376; 99218; 99284; Q9967; A4216; G0378; J1940

== ENCOUNTER → 2021-02-16 09:17 | Outpatient (CLI) | payer MEDICARE, SELFPAY ==
[2019-07-16 09:26] VITALS: BMI 29.5
--- NOTE | 2021-02-16 09:21 | RAD_ITS ---
PROCEDURE: Fluoroscopic guided Hip Injection DATE: 02/16/2021. INDICATION: Female, 71 years old. Chronic left hip pain. PHYSICIAN: Brown Yanes M.D. MEDICATIONS: 40 mg of KENALOG and 4 cc of 1% LIDOCAINE. 2% lidocaine administered subcutaneously for local anesthesia. ACCESS SITE: Left hip. NEEDLE: 22-gauge spinal needle. FLUOROSCOPY TIME (if supplied): (1:04) minutes/seconds. One image was obtained. FINDINGS: The risks, benefits, and alternatives to the procedure were explained to the patient. The specific risks of bleeding, infection, and neurovascular injury were detailed and accepted. Witnessed informed consent was obtained. A 22-gauge spinal needle was positioned under radiographic fluoroscopic localization. Approximately 2 cc of [id number] instilled for localization purposes. Medication was then injected. The patient tolerated the procedure well without any immediate complications. RAD/Inj/Asp Luis Jt Should/Hip/Knee IMPRESSION: 1. Successful fluoroscopic guided hip injection. Electronically Signed: Brown Yanes MD at 10:07 EST , Service support ,
== END ==
PROVIDERS: PCP Family Medicine; Referring Provider Family Medicine; Visit Provider Family Medicine
DX: M16.12 Unilateral primary osteoarthritis, left hip (principal)
CPT/HCPCS: 20610; 77002

== ENCOUNTER → 2021-02-19 13:39 | Outpatient (CLI) | payer MEDICARE, SELFPAY ==
[2019-07-16 09:26] VITALS: BMI 29.5
[2021-02-19 15:31] LABS: Anion Gap 10 (5-15); BUN 23 mg/dL (7-18); BUN/Creat Ratio 19.8 RATIO (10-20); Calcium,Total 8.6 mg/dL (8.5-10.1); Chloride 102 mmol/L (98-107); Creatinine, Serum 1.16 mg/dL (0.55-1.02); EST Glomerular Filtration Rate 49 mL/min (>60); Est Glom Filt Rate - Afr Amer 59 mL/min (>60); Glucose 82 mg/dL (74-106); Potassium 4.4 mmol/L (3.5-5.1); Sodium Level 141 mmol/L (136-145)
== END ==
PROVIDERS: PCP Family Medicine; Referring Provider Family Medicine; Visit Provider Nurse Practitioner Family
DX: I50.22 Chronic systolic (congestive) heart failure (principal)
CPT/HCPCS: 36415; 80048

== ENCOUNTER 2021-05-23 13:34 | Emergency (ER) | payer MEDICARE, MEDICAID, SELFPAY ==
[2019-07-16 09:26] VITALS: BMI 29.5
[2021-05-23 13:37] VITALS: BP 159/106; PULSE 84; RESP 14; TEMP 36.7; O2SAT 95; BMI 27.7
--- NOTE | 2021-05-23 14:15 | CT_ITS ---
HISTORY: Trauma. TECHNIQUE: Helically acquired images were obtained of the cervical spine. 2D reformatted images were reviewed. A radiation dose optimization technique was used for this scan. # of images incl. paperwork: 464. IV Contrast dosage and agent: None. COMPARISON: None. FINDINGS: VERTEBRAE: No acute fracture identified. VERTEBRAL ALIGNMENT: No significant anterior or posterior subluxation. Straightening of the cervical lordosis. DISCS: Degenerative endplate changes of C4-5, C5-6, and C6-7. Posterior disc bulge osteophyte complexes with uncovertebral and facet arthropathy. C2-3: Minimal narrowing of the thecal sac. C3-4: Mild central canal stenosis. C4-5: Mild central canal stenosis. C5-6: Mild central canal stenosis. C6-7: Minimal narrowing of the thecal sac. Foraminal narrowing at multiple levels. SOFT TISSUES: No prevertebral soft tissue swelling. Multinodular thyroid. Mediastinal cyst noted. CT/Spine Cervical without Contras IMPRESSION: No evidence of acute cervical spinal fracture or dislocation. Multilevel degenerative disc disease as described above. Individualized dose optimization techniques were used for this CT. at 1535 Reported and signed by: Linda Gómez MD Electronically Signed: Linda Gómez MD at 15:34 EST Reading Location ID and State: [facility] / [place] Tel , Service support ,
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
--- NOTE | 2021-05-23 14:15 | EKG12_ITS ---
Test Reason : CP Blood Pressure : / mmHG Vent. Rate : 083 BPM Atrial Rate : 083 BPM P-R Int : 280 ms QRS Dur : 114 ms QT Int : 418 ms P-R-T Axes : 000 -17 -89 degrees QTc Int : 491 ms Sinus rhythm with 1st degree A-V block Incomplete left bundle branch block Marked ST abnormality, possible inferior subendocardial injury Prolonged QT Abnormal ECG Confirmed by HUYEN JEAN-BAPTISTE, TAYLOR ([id number]), photograph editor MAREN GRIMES ([id number]) on 05/24/2021 10:14:43 AM Referred By: ER Confirmed By:TAYLOR MATSON MD
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
[2021-05-23 14:27] LABS: Absolute Lymphocyte Count 1.06 X10^3/uL (0.83-4.51); Basophil# 0.04 X10^3/uL; Basophil% 0.6 % (0-1); Eosinophil# 0.22 X10^3/uL; Eosinophils% 3.2 % (0-5); Hematocrit 39.5 % (37-47); Hemoglobin 13.4 g/dL (12.0-15.0); Lymphocyte # 1.06 X10^3/ul (0.83-4.51); Lymphocyte % 15.5 % (19-41); Mean Corp Hgb Conc 33.9 g/dL (32-36); Mean Corpuscular Hgb 30.1 pg (27.0-32.0); Mean Corpuscular Volume 88.8 fL (81-99); Mean Platelet Vol. 10.8 fl (6.2-12.0); Monocyte# 0.49 X10^3/uL; Monocyte% 7.2 % (0-10); NRBC Flagged by Analyzer 0 % (0-5); Neutrophil % 72.9 % (47-70); Platelet Count 203 K/mm3 (150-450); RBC Distribution Width CV 13.2 % (11.6-14.6); RBC Distribution Width SD 42.5 fl (35.1-43.9); Red Blood Count 4.45 M/mm3 (4.2-5.4); White Blood Count 6.9 K/mm3 (4.4-11.0)
[2021-05-23] MEDS: Morphine 4 MG/ML Syringe IV (14:28)
[2021-05-23] MEDS: Ondansetron 4 MG/2 ML Vial IV (14:28)
[2021-05-23 14:30] VITALS: O2SAT 82
[2021-05-23 14:40] VITALS: BP 141/78; PULSE 81; RESP 10; O2SAT 90
[2021-05-23 14:43] LABS: ALB/GLOB Ratio 1.1 RATIO (0.9-2.4); AST(SGOT) 19 U/L (15-37); Alanine Aminotransfer ALT/SGPT 19 U/L (13-56); Alkaline Phosphatase 117 U/L (45-117); Anion Gap 4 (5-15); BUN 22 mg/dL (7-18); BUN/Creat Ratio 18.6 RATIO (10-20); Calcium,Total 9.1 mg/dL (8.5-10.1); Chloride 103 mmol/L (98-107); Creatinine, Serum 1.18 mg/dL (0.55-1.02); EST Glomerular Filtration Rate 48 mL/min (>60); Est Glom Filt Rate - Afr Amer 58 mL/min (>60); Estimated Creatinine Clearance 34.08 ml/min; Globulin 3.6 g/dL (2.2-4.2); Glucose 101 mg/dL (74-106); Potassium 4.1 mmol/L (3.5-5.1); Protein, Total 7.6 g/dL (6.4-8.2); Sodium Level 140 mmol/L (136-145); Troponin-I HS 8 pg/mL (3.0-54.0)
--- NOTE | 2021-05-23 14:45 | RAD_ITS ---
STUDY: X-RAY CHEST REASON FOR EXAM: Female, 71 years old. Chest pain TECHNIQUE: Single AP portable view of the chest. COMPARISON: Comparison is made with prior study dated 08/22/2020. FINDINGS: EKG electrodes are seen. The lungs are clear and expanded. There is no demonstrated pleural abnormality. There is moderate cardiac enlargement. A left-sided dual-chamber pacemaker is seen. Normal mediastinum and artis. Normal visualized pulmonary arteries. There is atherosclerotic calcification of the aortic arch with tortuosity. Normal visualized thoracic spine. Normal visualized ribs, clavicles, and shoulders. There is no demonstrated abnormality of the visualized soft tissue structures of the upper abdomen. RAD/Chest 1 View (Portable) IMPRESSION: Cardiomegaly. The lungs are clear. Electronically Signed: Brown Yanes MD at 15:03 EST ,
[2021-05-23 16:00] VITALS: O2SAT 99
[2021-05-23 16:18] VITALS: BP 141/68; PULSE 81; RESP 14; O2SAT 100
== END 2021-05-23 16:54 | disposition home or self-care (01) ==
PROVIDERS: Emergency Provider Emergency Medicine; PCP Family Medicine; Visit Provider Emergency Medicine
DX: S20.20XA Contusion of thorax, unspecified, initial encounter (principal); M06.9 Rheumatoid arthritis, unspecified; J44.9 Chronic obstructive pulmonary disease, unspecified; I50.9 Heart failure, unspecified; I42.8 Other cardiomyopathies; I13.0 Hypertensive heart and chronic kidney disease with heart failure and stage 1 through stage 4 chronic kidney disease, or unspecified chronic kidney disease; N18.4 Chronic kidney disease, stage 4 (severe); I71.4 Abdominal aortic aneurysm, without rupture; I73.9 Peripheral vascular disease, unspecified; I48.0 Paroxysmal atrial fibrillation; S09.90XA Unspecified injury of head, initial encounter; E78.5 Hyperlipidemia, unspecified; I25.10 Atherosclerotic heart disease of native coronary artery without angina pectoris; V49.40XA Driver injured in collision with unspecified motor vehicles in traffic accident, initial encounter; Z87.891 Personal history of nicotine dependence; S16.1XXA Strain of muscle, fascia and tendon at neck level, initial encounter; F41.9 Anxiety disorder, unspecified; F32.A Depression, unspecified; K21.9 Gastro-esophageal reflux disease without esophagitis; K58.9 Irritable bowel syndrome, unspecified; G47.33 Obstructive sleep apnea (adult) (pediatric); I25.2 Old myocardial infarction; Z86.19 Personal history of other infectious and parasitic diseases; Z87.01 Personal history of pneumonia (recurrent); Z86.16 Personal history of COVID-19; Z79.899 Other long term (current) drug therapy; Z79.02 Long term (current) use of antithrombotics/antiplatelets; Z95.5 Presence of coronary angioplasty implant and graft; Z95.0 Presence of cardiac pacemaker; I44.0 Atrioventricular block, first degree; I44.7 Left bundle-branch block, unspecified; G62.9 Polyneuropathy, unspecified; Y93.9 Activity, unspecified; Y92.9 Unspecified place or not applicable
CPT/HCPCS: 70450; 71045; 71260; 72125; 74177; 80053; 84484; 85025; 93005; 96374; 96375; 99285; Q9967; A4216; J2405

== ENCOUNTER 2021-05-31 16:40 | Emergency (ER) | payer MEDICARE, SELFPAY ==
[2019-07-16 09:26] VITALS: BMI 29.5
[2021-05-31 16:41] VITALS: BP 143/75; PULSE 77; RESP 12; TEMP 37.1; O2SAT 95; BMI 27.7
--- NOTE | 2021-05-31 17:02 | EKG12_ITS ---
Test Reason : CP Blood Pressure : / mmHG Vent. Rate : 082 BPM Atrial Rate : 087 BPM P-R Int : 000 ms QRS Dur : 112 ms QT Int : 382 ms P-R-T Axes : 000 -06 -34 degrees QTc Int : 446 ms Atrial Flutter with occasional ventricular-paced complexes Incomplete left bundle branch block ST depression, consider subendocardial injury Nonspecific T wave abnormality Abnormal ECG Confirmed by MARTIN JEAN-BAPTISTE, GABO ([id number]), offline editor MAREN GRIMES ([id number]) on 06/04/2021 10:56:06 A M Referred By: DIOGENES/AMY Confirmed By:TITA SALAZAR MD
--- NOTE | 2021-05-31 17:05 | RAD_ITS ---
STUDY: X-RAY CHEST REASON FOR EXAM: Female, 71 years old. Chest pain TECHNIQUE: Single frontal view of the chest. COMPARISON: CT and chest radiograph dated 05/23/2021 FINDINGS: There is no new focal consolidation. Normal size heart. There is a cardiac pacer device in place. Normal mediastinum and artis. Normal visualized pulmonary arteries. There is atherosclerotic calcification of the aortic arch with tortuosity. Normal visualized thoracic spine. Normal visualized ribs, clavicles, and shoulders. There is no demonstrated abnormality of the visualized soft tissue structures of the upper abdomen. RAD/Chest 1 View (Portable) IMPRESSION: No acute cardiopulmonary process. Electronically Signed: Kadi Tirado MD at 17:19 EDT ,
[2021-05-31] MEDS: Aspirin 81 MG TAB.CHEW 324 MG PO (17:10)
[2021-05-31 17:27] LABS: Anion Gap 6 (5-15); BUN 19 mg/dL (7-18); BUN/Creat Ratio 14.8 RATIO (10-20); Calcium,Total 8.7 mg/dL (8.5-10.1); Chloride 107 mmol/L (98-107); Creatinine, Serum 1.28 mg/dL (0.55-1.02); EST Glomerular Filtration Rate 44 mL/min (>60); Est Glom Filt Rate - Afr Amer 53 mL/min (>60); Estimated Creatinine Clearance 31.42 ml/min; Glucose 90 mg/dL (74-106); Potassium 3.6 mmol/L (3.5-5.1); Sodium Level 143 mmol/L (136-145); Troponin-I HS 10 pg/mL (3.0-54.0)
[2021-05-31 17:28] LABS: Basophil# 0.03 X10^3/uL; Basophil% 0.5 % (0-1); Eosinophil# 0.21 X10^3/uL; Eosinophils% 3.5 % (0-5); Hematocrit 35.1 % (37-47); Hemoglobin 11.8 g/dL (12.0-15.0); Lymphocyte % 20.1 % (19-41); Mean Corp Hgb Conc 33.6 g/dL (32-36); Mean Corpuscular Hgb 29.6 pg (27.0-32.0); Mean Platelet Vol. 10.7 fl (6.2-12.0); Monocyte# 0.48 X10^3/uL; NRBC Flagged by Analyzer 0 % (0-5); Neutrophil # 4.04 X10^3/uL (2.7-7.7); Neutrophil % 67.7 % (47-70); Platelet Count 185 K/mm3 (150-450); RBC Distribution Width CV 12.9 % (11.6-14.6); RBC Distribution Width SD 41.4 fl (35.1-43.9); Red Blood Count 3.99 M/mm3 (4.2-5.4)
--- NOTE | 2021-05-31 18:41 | EDS_ITS ---
HPI History of Present Illness Chief Complaint: Chest Pain Informant: patient Onset/Context/Timing Onset: Days (3) Activity at onset: gradual Timing: Continuous Quality: Positive for Tightness Location: Substernal Worsened By: Movement of Torso Relieved By: Nothing Associated Symptoms: Negative for Nausea, Vomiting, Diaphoresis, Dyspnea, Cough, Fever, Lightheadedness, Acid Reflux and Palpitations Narrative Narrative: Patient presents with chest pain that has been gradually getting worse over the last 3 days. Patient states it has been constant. Patient describes as a tightness. Patient states it is over the substernal area and radiates to both shoulders. Patient states it radiates into her neck and back as well. Patient states it is worse with movement. Patient states nothing seems to help with it. Patient denies any nausea or vomiting. Patient denies any diaphoresis. Patient denies any shortness of breath or cough. CVD Risk Factors: Positive for Hypertension; Negative for Diabetes, Hypercholesterolemia, Family History 1' </=55 and Smoking PE Risk Factors: Positive for Cancer; Negative for Recent Travel/Surgery, Recent Immobilization, Prior DVT or PE and OCP + Smoking + >/=35 PFSH [facility] Medical History AAA (abdominal aortic aneurysm) without rupture Abdominal aortic aneurysm (AAA) Acute on chronic combined systolic (congestive) and diastolic (congestive) heart failure Acute on chronic diastolic (congestive) heart failure Acute respiratory failure with hypoxia Anemia Anemia Angina pectoris Anxiety and depression Atherosclerotic heart disease of [place] coronary artery without angina pectoris Atrial fibrillation with RVR Atrial fibrillation with RVR Cancer CHF exacerbation Chronic kidney disease, stage 4 (severe) Claudication in peripheral vascular disease Congestive heart failure (CHF) COPD (chronic obstructive pulmonary disease) COVID-19 (01/01/20) Dyspnea on exertion Emphysema of lung Essential (primary) hypertension GERD (gastroesophageal reflux disease) HLD (hyperlipidemia) Hypokalemia IBS (irritable bowel syndrome) Injury of head and neck Nicotine dependence Non-ischemic cardiomyopathy Non-STEMI (non-ST elevated myocardial infarction) (03/19/19) Obesity BELLE (obstructive sleep apnea) PAD (peripheral artery disease) Paroxysmal atrial fibrillation Peripheral vascular occlusive disease Persistent atrial fibrillation Pneumonia due to 2019 novel coronavirus (01/01/20) Rheumatic fever Rheumatoid arthritis Sepsis (01/01/20) Sinus pause Smoking greater than 30 pack years Tachy-erica syndrome Unstable angina pectoris due to coronary arteriosclerosis Wheezing Home Medications dicyclomine 10 mg capsule 10 mg PO 4X/DAY 07/09/19 [History Last Taken 06/06/20] albuterol sulfate 90 mcg/actuation aerosol inhaler 1 - 2 puff INHALATION Q4H PRN PRN #1 inhaler 07/06/20 [Rx Last Taken Unknown] nitroglycerin [Nitrostat] 0.4 mg SUBLINGUAL Q5M PRN 11/24/20 [History Last Taken Unknown] trazodone 150 mg PO QHS 11/24/20 [History Last Taken Unknown] pantoprazole 40 mg PO DAILY #30 tab 11/25/20 [Rx Last Taken Unknown] atorvastatin 40 mg tablet 40 mg PO DAILY 12/07/20 [History Last Taken Unknown] duloxetine 60 mg PO DAILY 02/10/21 [History Last Taken Unknown] ferrous sulfate 325 mg PO BID 02/11/21 [History Last Taken Unknown] amiodarone 200 mg tablet 200 mg PO DAILY tab 02/22/21 [History Last Taken Unknown] buspirone 10 mg tablet 10 mg PO TID tab 02/22/21 [History Last Taken Unknown] calcium carbonate 600 mg-vitamin D3 12.5 mcg (500 unit) capsule 1 cap PO DAILY cap 02/22/21 [History Last Taken Unknown] furosemide 40 mg tablet 40 mg PO DAILY tab 02/22/21 [History Last Taken Unknown] gabapentin 300 mg capsule 300 mg PO .COMPLEX cap 02/22/21 [History Last Taken Unknown] amlodipine 10 mg tablet 10 mg PO DAILY #90 tab 02/27/21 [Rx Last Taken Unknown] lorazepam 1 mg PO/SL BID PRN PRN 03/14/21 [History Last Taken Unknown] fluticasone 500 mcg-salmeterol 50 mcg/dose blistr powdr for inhalation 1 inh INHALATION BID #60 ea 05/15/21 [Rx Last Taken Unknown] clopidogrel 75 mg tablet 75 mg PO QHS #90 tab 05/17/21 [Rx Last Taken Unknown] hydrocodone-acetaminophen 1 tab PO Q6H PRN 3 Days #12 tab 05/23/21 [Rx Last Taken Unknown] ondansetron 4 mg PO Q8H PRN #10 tab 05/23/21 [Rx Last Taken Unknown] potassium chloride 20 mEq tablet,extended release 20 meq PO DAILY #30 tab 05/23/21 [Rx Last Taken Unknown] metoprolol tartrate 100 mg tablet 100 mg PO BID #180 tab 05/25/21 [Rx Last Taken Unknown] isosorbide mononitrate 60 mg tablet,extended release 24 hr 60 mg PO DAILY #90 tab 05/28/21 [Rx Last Taken Unknown] Allergy/AdvReac Type Severity Reaction Status Date / Time lisinopril Allergy tongue Verified 05/23/21 13:39 swelling Family History Father Heart disease Hypertension Seizures Sister CVA (cerebral vascular accident) Hypertension Other Family history of hypertension Surgical History History of angioplasty of peripheral vessel History of bilateral leg stents History of bunionectomy of right great toe History of cardioversion (07/18/20) History of colonoscopy (06/2018) History of coronary artery stent placement (03/18/19) History of hysterectomy History of left heart catheterization (11/25/19) History of permanent cardiac pacemaker placement (03/27/20) History of tonsillectomy Hx of APLL Hx of hysterectomy Status post left foot surgery Social History household members: children and other housing: house Smoking Status: Former smoker how long ago did patient quit smoking: May 2020 alcohol intake: never substance use type: does not use caffeine: No what type of physical activity do you participate in: none ROS ROS ED Constitutional Constitutional ED: Denies chills or fever(s) Eyes Eyes: Denies blurry vision or change in vision ENT ENT ED: Reports rhinorrhea; Denies sore throat Cardiovascular Cardiovascular: Reports chest pain; Denies palpitations Respiratory/Chest Respiratory/Chest: Denies cough or dyspnea Gastrointestinal Gastrointestinal: Denies abdominal pain, nausea or vomiting Genitourinary Genitourinary ED: Denies dysuria or hematuria Musculoskeletal Musculoskeletal: Reports back pain and neck pain Integumentary Denies abscess or rash Neurologic Neurologic: Denies headache(s) or weakness Allergic/Immunologic Allergic/Immunologic ED: Denies mouth swelling or urticaria EXAM Physical Exam Const Vital Signs: 05/31/21 16:41 05/31/21 16:47 Temperature 98.8 F Temperature Source Temporal Pulse Rate 77 Respiratory Rate 12 Respiratory Effort Normal Non-Labored Blood Pressure 143/75 H Blood Pressure Mean 97 Pulse Ox 95 Oxygen Delivery Method Room Air Positive well nourished and well developed General Appearance ED: well developed and NAD HEENT normocephalic and atraumatic Eyes PERRL and EOMs intact bilaterally Neck supple and no JVD Chest Wall palpation of chest normal Resp normal respiratory effort and clear to auscultation bilaterally Effort and Inspection: Negative for respiratory distress Cardio regular rate, regular rhythm and no murmurs GI normal to inspection, nondistended, normoactive bowel sounds, soft to palpation, non-tender and non-distended Extremity normal to inspection General Extremety ED: Negative for edema or tenderness General Extremity: Negative for edema Neuro oriented x3, CN's II-XII intact bilaterally and no sensory deficits noted Sensorium / Orientation: awake and alert Motor Exam: strength 5/5 throughout Psych mental status grossly normal Heart Score History: Slightly/Non-Suspicious ECG: Nonspecific Repolarization Age: >/= 65 years Risk Factors: >/= 3 Risk Factors or History of CAD Troponin: </= Normal Limit Score: 5 MDM MDM MDM Narrative Medical decision making narrative: Patient was given aspirin here. EKG was obtained. On my interpretation, it shows a normal sinus rhythm with a rate of 82. There is an incomplete left bundle branch block. There is some nonspecific ST-T wave changes noted. This was unchanged compared to previous EKG dated 05/23/2021. Portable 1 view chest x-ray was obtained. On my interpretation, lung ruffin are clear. There is normal cardiac silhouette. Bony thorax is normal. There is no acute process noted. Radiologist also interpreted the x-ray and agrees. CBC was within normal limits. Basic metabolic profile showed a slightly elevated creatinine of 1.28 and a BUN of 19. These are consistent with prior results. Initial high-sensitivity troponin was normal at 10. 2-hour repeat high-sensitivity troponin was normal at 7. Patient feels better on reevaluation. Patient was advised of her findings. Patient was instructed to follow-up with her primary care physician in 3 to 5 days for further evaluation. Patient was instructed to return if worse in any way. Patient understood and was agreeable with the plan. All questions were answered. Lab Data Attestation: I reviewed the patient's lab results. Labs: Laboratory Results - last 24 hr 05/31/21 05/31/21 05/31/21 16:50 16:50 18:55 WBC 6.0 RBC 3.99 L Hgb 11.8 L Hct 35.1 L MCV 88.0 MCH 29.6 MCHC 33.6 RDW Std Deviation 41.4 RDW Coeff of Natalie 12.9 Plt Count 185 MPV 10.7 Immature Gran % (Auto) 0.200 Neut % (Auto) 67.7 Lymph % (Auto) 20.1 [place] % (Auto) 8.0 Eos % (Auto) 3.5 Baso % (Auto) 0.5 Absolute Neuts (auto) 4.0 Absolute Lymphs (auto) 1.20 Nucleated RBC % 0 Sodium 143 Potassium 3.6 Chloride 107 Carbon Dioxide 30.0 Anion Gap 6 BUN 19 H Creatinine 1.28 H Estim Creat Clear Calc 31.42 Est GFR (MDRD) Af Amer 53 L Est GFR (MDRD) Non-Af 44 L BUN/Creatinine Ratio 14.8 Glucose 90 Calcium 8.7 Troponin I High Sens 10 7 Radiography Chest X-Ray - ED: 1 View, Read by ED Physician, Read by Radiologist, Normal and No Acute Disease Diagnostic Testing: Clinical Impression(s) from Imaging Studies Chest X-Ray 05/31/21 17:05 IMPRESSION: No acute cardiopulmonary process. Electronically Signed: Kadi Tirado MD at 17:19 EDT Reading Location ID and State: [facility] / [place] Tel , Service support , EKG Initial EKG: Attestation: I personally reviewed and interpreted this EKG as follows: Interpretation: Sinus Rhythm, LBBB (Incomplete) and Non-Specific ST Changes Prior EKG tracings: available for review Prior: Unchanged (05/23/2021) Discharge Plan Triage Chief Complaint: Chest Pain ED Provider: Angel Can Dx/Rx/DC Orders Clinical Impression: Chest pain Instructions: ED Chest Pain, Uncertain Cause Prescriptions: No Action dicyclomine 10 mg capsule 10 mg PO 4X/DAY RF: 0 atorvastatin 40 mg tablet 40 mg PO DAILY RF: 0 amiodarone 200 mg tablet 200 mg PO DAILY RF: 0 buspirone 10 mg tablet 10 mg PO TID RF: 0 gabapentin 300 mg capsule 300 mg PO .COMPLEX RF: 0 calcium carbonate-vitamin D3 [Calcium 600 with Vitamin D3] 600 mg(1,500mg) - 500 unit capsule 1 cap PO DAILY RF: 0 lorazepam 0.5 mg 1 mg PO/SL BID PRN PRN (Reason: Anxiety) RF: 0 nitroglycerin [Nitrostat] 0.4 mg Tablet, Sublingual 0.4 mg SUBLINGUAL Q5M PRN (Reason: Chest Pain) RF: 0 trazodone 150 mg Tablet 150 mg PO QHS RF: 0 pantoprazole 40 mg tablet,delayed release (DR/EC) 40 mg PO DAILY Qty: 30 RF: 1 duloxetine 30 mg capsule,delayed release(DR/EC) 60 mg PO DAILY RF: 0 ferrous sulfate 325 mg (65 mg iron) Tablet 325 mg PO BID RF: 0 hydrocodone-acetaminophen 5-325 mg tablet 1 tab PO Q6H PRN (Reason: pain) 3 Days Qty: 12 RF: 0 ondansetron 4 mg tablet,disintegrating 4 mg PO Q8H PRN (Reason: nausea and vomiting) Qty: 10 RF: 0 albuterol sulfate 90 mcg/actuation HFA aerosol inhaler 1 - 2 puff INHALATION Q4H PRN PRN (Reason: Dyspnea, wheezing) Qty: 1 RF: 6 furosemide 40 mg tablet 40 mg PO DAILY RF: 0 amlodipine 10 mg tablet 10 mg PO DAILY Qty: 90 RF: 3 fluticasone propion-salmeterol [Wixela Inhub] 500-50 mcg/dose blister with dev ice 1 inh INHALATION BID Qty: 60 RF: 6 clopidogrel 75 mg tablet 75 mg PO QHS Qty: 90 RF: 3 potassium chloride 20 mEq tablet extended release 20 meq PO DAILY Qty: 30 RF: 0 metoprolol tartrate 100 mg tablet 100 mg PO BID Qty: 180 RF: 3 isosorbide mononitrate 60 mg tablet extended release 24 hr 60 mg PO DAILY Qty: 90 RF: 3 Primary Care Provider: Cem Jewell Referrals: Jaime Treviño MD [STAFF PHYSICIAN] - [facility] appointment Cem Jewell MD [Primary Care Provider] - [facility] appointment Disposition Disposition: Home, Self Care
[2021-05-31 19:28] LABS: Troponin-I HS 7 pg/mL (3.0-54.0)
[2021-05-31 20:32] VITALS: BP 123/74; PULSE 71; RESP 16; O2SAT 97
== END 2021-05-31 20:33 | disposition home or self-care (01) ==
PROVIDERS: Emergency Provider Emergency Medicine; PCP Family Medicine; Visit Provider Emergency Medicine
DX: R07.89 Other chest pain (principal); M06.9 Rheumatoid arthritis, unspecified; J44.9 Chronic obstructive pulmonary disease, unspecified; I13.0 Hypertensive heart and chronic kidney disease with heart failure and stage 1 through stage 4 chronic kidney disease, or unspecified chronic kidney disease; I50.9 Heart failure, unspecified; I42.8 Other cardiomyopathies; N18.4 Chronic kidney disease, stage 4 (severe); I73.9 Peripheral vascular disease, unspecified; I71.4 Abdominal aortic aneurysm, without rupture; I48.0 Paroxysmal atrial fibrillation; E78.5 Hyperlipidemia, unspecified; I25.10 Atherosclerotic heart disease of native coronary artery without angina pectoris; Z87.891 Personal history of nicotine dependence; F41.9 Anxiety disorder, unspecified; F32.A Depression, unspecified; K58.9 Irritable bowel syndrome, unspecified; K21.9 Gastro-esophageal reflux disease without esophagitis; I25.2 Old myocardial infarction; Z86.16 Personal history of COVID-19; Z87.01 Personal history of pneumonia (recurrent); Z86.19 Personal history of other infectious and parasitic diseases; G47.33 Obstructive sleep apnea (adult) (pediatric); Z79.899 Other long term (current) drug therapy; D64.9 Anemia, unspecified; Z95.818 Presence of other cardiac implants and grafts; Z95.5 Presence of coronary angioplasty implant and graft; I44.7 Left bundle-branch block, unspecified
CPT/HCPCS: 71045; 80048; 84484; 85025; 93005; 99284; A4216

== ENCOUNTER 2021-06-03 11:13 | Emergency (ER) | payer MEDICARE, MEDICAID, SELFPAY ==
[2019-07-16 09:26] VITALS: BMI 29.5
[2021-06-03 11:13] VITALS: BP 137/82; PULSE 129; RESP 14; TEMP 36.3; O2SAT 97; BMI 27.0
--- NOTE | 2021-06-03 11:35 | CT_ITS ---
STUDY: CTA CHEST REASON FOR EXAM: Female, 71 years old. trauma 11 days ago, chest pain RADIATION DOSAGE (If Supplied By Facility): CTDIvol = ( 6.81 ) mGy, DLP = ( 258.38 ) mGycm TECHNIQUE: The examination was performed with the intravenous administration of IV 100mL Isovue-370. Post-processing of the angiographic images was performed, with multiplanar reformation and 3D reconstruction. Individualized dose optimization techniques were used for this CT. COMPARISON: 05/23/2021 FINDINGS: Left subclavian pacemaker. Normal enhancement of the main pulmonary artery and right and left pulmonary arteries. Normal enhancement of the bilateral peripheral pulmonary arteries. There is no demonstrated pulmonary embolism. Normal thoracic aorta and visualized great vessels. There is no demonstrated aortic dissection. There is cardiomegaly. Normal mediastinum. Normal hilar regions. Normal visualized trachea and bronchi. The lungs are well expanded. Normal pulmonary parenchyma. Normal pleura. Normal chest wall structures. Normal osseous structures. Normal visualized upper abdomen. CT/CTA Chest W/WO Contrast IMPRESSION: Normal CTA chest examination, without a demonstrated pulmonary embolism or arterial dissection. Electronically Signed: Daniel Kimbrough MD at 13:33 EDT ,
--- NOTE | 2021-06-03 11:35 | EKG12_ITS ---
Test Reason : CP Blood Pressure : / mmHG Vent. Rate : 113 BPM Atrial Rate : 113 BPM P-R Int : 200 ms QRS Dur : 106 ms QT Int : 360 ms P-R-T Axes : 091 -12 206 degrees QTc Int : 493 ms Sinus tachycardia with Premature supraventricular complexes Incomplete left bundle branch block ST & T wave abnormality, consider inferolateral ischemia Abnormal ECG Confirmed by HUYEN JEAN-BAPTISTE, TAYLOR ([id number]), publications editor MAREN GRIMES ([id number]) on 06/07/2021 9:17:29 AM Referred By: PL/HARIKA Confirmed By:TAYLOR MATSON MD
--- NOTE | 2021-06-03 11:35 | RAD_ITS ---
STUDY: X-RAY CHEST REASON FOR EXAM: Female, 71 years old. chest pain TECHNIQUE: Single AP portable view of the chest. COMPARISON: 05/31/2021 FINDINGS: Left subclavian pacemaker which is unchanged. The lungs are clear and expanded. There is no demonstrated pleural abnormality. There is moderate cardiac enlargement. Normal mediastinum and artis. Normal visualized pulmonary arteries. Normal visualized aortic arch and descending thoracic aorta. Normal visualized thoracic spine. Normal visualized ribs, clavicles, and shoulders. There is no demonstrated abnormality of the visualized soft tissue structures of the upper abdomen. RAD/Chest 1 View (Portable) IMPRESSION: No active disease. Electronically Signed: Daniel Kimbrough MD at 12:25 EDT ,
[2021-06-03 11:54] LABS: Absolute Lymphocyte Count 0.82 X10^3/uL (0.83-4.51); Absolute Neutrophil Count 4.1 X10^3/uL (2.0-7.7); Basophil# 0.02 X10^3/uL; Basophil% 0.4 % (0-1); Eosinophil# 0.19 X10^3/uL; Eosinophils% 3.4 % (0-5); Hematocrit 35.4 % (37-47); Lymphocyte # 0.82 X10^3/ul (0.83-4.51); Lymphocyte % 14.7 % (19-41); Mean Corp Hgb Conc 33.9 g/dL (32-36); Mean Corpuscular Hgb 29.9 pg (27.0-32.0); Mean Corpuscular Volume 88.1 fL (81-99); Mean Platelet Vol. 10.4 fl (6.2-12.0); Monocyte# 0.36 X10^3/uL; Monocyte% 6.5 % (0-10); NRBC Flagged by Analyzer 0 % (0-5); Neutrophil # 4.11 X10^3/uL (2.7-7.7); Neutrophil % 73.9 % (47-70); Platelet Count 157 K/mm3 (150-450); RBC Distribution Width CV 12.8 % (11.6-14.6); RBC Distribution Width SD 41.5 fl (35.1-43.9); Red Blood Count 4.02 M/mm3 (4.2-5.4); White Blood Count 5.6 K/mm3 (4.4-11.0)
[2021-06-03] MEDS: Morphine 4 MG/ML Syringe IV (11:54)
[2021-06-03] MEDS: Ondansetron 4 MG/2 ML Vial IV (11:55)
[2021-06-03 11:58] VITALS: BP 119/78; PULSE 106; RESP 14; O2SAT 96
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
[2021-06-03 12:37] LABS: Anion Gap 5 (5-15); BUN 19 mg/dL (7-18); Calcium,Total 8.3 mg/dL (8.5-10.1); Chloride 106 mmol/L (98-107); Creatinine, Serum 0.95 mg/dL (0.55-1.02); EST Glomerular Filtration Rate 61 mL/min (>60); Est Glom Filt Rate - Afr Amer 74 mL/min (>60); Estimated Creatinine Clearance 42.34 ml/min; Glucose 119 mg/dL (74-106); Potassium 3.5 mmol/L (3.5-5.1); Sodium Level 140 mmol/L (136-145); Troponin-I HS 34 pg/mL (3.0-54.0)
[2021-06-03 13:50] VITALS: BP 139/74; PULSE 102; RESP 16; O2SAT 100
[2021-06-03 14:24] VITALS: BP 133/82; PULSE 102; RESP 15; O2SAT 100
[2021-06-03 14:26] LABS: Troponin-I HS 28 pg/mL (3.0-54.0)
== END 2021-06-03 15:05 | disposition home or self-care (01) ==
PROVIDERS: Emergency Provider Emergency Medicine; PCP Family Medicine; Visit Provider Emergency Medicine
DX: S20.312A Abrasion of left front wall of thorax, initial encounter (principal); M06.9 Rheumatoid arthritis, unspecified; J44.9 Chronic obstructive pulmonary disease, unspecified; I13.0 Hypertensive heart and chronic kidney disease with heart failure and stage 1 through stage 4 chronic kidney disease, or unspecified chronic kidney disease; I50.9 Heart failure, unspecified; I42.8 Other cardiomyopathies; N18.4 Chronic kidney disease, stage 4 (severe); I71.4 Abdominal aortic aneurysm, without rupture; I73.9 Peripheral vascular disease, unspecified; I48.0 Paroxysmal atrial fibrillation; R07.89 Other chest pain; E78.5 Hyperlipidemia, unspecified; Z87.891 Personal history of nicotine dependence; I25.10 Atherosclerotic heart disease of native coronary artery without angina pectoris; Z95.5 Presence of coronary angioplasty implant and graft; F32.A Depression, unspecified; F41.9 Anxiety disorder, unspecified; K21.9 Gastro-esophageal reflux disease without esophagitis; K58.9 Irritable bowel syndrome, unspecified; Z86.16 Personal history of COVID-19; I25.2 Old myocardial infarction; G47.33 Obstructive sleep apnea (adult) (pediatric); Z87.01 Personal history of pneumonia (recurrent); Z86.19 Personal history of other infectious and parasitic diseases; E66.9 Obesity, unspecified; Z79.899 Other long term (current) drug therapy; Z79.02 Long term (current) use of antithrombotics/antiplatelets; I49.1 Atrial premature depolarization; V89.2XXA Person injured in unspecified motor-vehicle accident, traffic, initial encounter; Y93.9 Activity, unspecified; Y92.9 Unspecified place or not applicable; Z63.79 Other stressful life events affecting family and household
CPT/HCPCS: 71045; 71275; 80048; 84484; 85025; 93005; 96361; 96374; 96375; 99284; J7040; Q9967; A4216; J2405

== ENCOUNTER 2021-06-07 11:22 | Outpatient (CLI) | payer MEDICARE, SELFPAY ==
[2019-07-16 09:26] VITALS: BMI 29.5
[2021-06-07 15:08] LABS: Absolute Lymphocyte Count 0.77 X10^3/uL (0.83-4.51); Absolute Neutrophil Count 5.3 X10^3/uL (2.0-7.7); Basophil# 0.03 X10^3/uL; Basophil% 0.4 % (0-1); Eosinophils% 4.3 % (0-5); Hematocrit 35.3 % (37-47); Hemoglobin 11.8 g/dL (12.0-15.0); Lymphocyte # 0.77 X10^3/ul (0.83-4.51); Lymphocyte % 11.1 % (19-41); Mean Corp Hgb Conc 33.4 g/dL (32-36); Mean Corpuscular Hgb 30.3 pg (27.0-32.0); Mean Corpuscular Volume 90.7 fL (81-99); Mean Platelet Vol. 11.4 fl (6.2-12.0); Monocyte# 0.49 X10^3/uL; NRBC Flagged by Analyzer 0 % (0-5); Neutrophil # 5.34 X10^3/uL (2.7-7.7); Neutrophil % 76.8 % (47-70); Platelet Count 194 K/mm3 (150-450); RBC Distribution Width CV 13.2 % (11.6-14.6); RBC Distribution Width SD 42.6 fl (35.1-43.9); Red Blood Count 3.89 M/mm3 (4.2-5.4)
[2021-06-07 15:23] LABS: Vitamin D,25 Hydroxy 55.4 ng/mL
[2021-06-07 15:34] LABS: ALB/GLOB Ratio 1.1 RATIO (0.9-2.4); AST(SGOT) 19 U/L (15-37); Alanine Aminotransfer ALT/SGPT 18 U/L (13-56); Albumin, Serum 3.5 g/dL (3.2-5.0); Alkaline Phosphatase 105 U/L (45-117); Anion Gap 4 (5-15); BUN 16 mg/dL (7-18); BUN/Creat Ratio 14.4 RATIO (10-20); Calcium,Total 8.3 mg/dL (8.5-10.1); Chloride 104 mmol/L (98-107); Cholesterol 106 mg/dL (200); Creatinine, Serum 1.11 mg/dL (0.55-1.02); EST Glomerular Filtration Rate 51 mL/min (>60); Est Glom Filt Rate - Afr Amer 62 mL/min (>60); Ferritin 92 ng/mL (8-252); Globulin 3.2 g/dL (2.2-4.2); Glucose 94 mg/dL (74-106); High Density Lipoprotein 40 mg/dL; Iron 75 ug/dL (50-170); Iron Binding Capacity,Total 268 ug/dL (250-450); Magnesium 2.1 mg/dL (1.6-2.6); Potassium 3.6 mmol/L (3.5-5.1); Protein, Total 6.7 g/dL (6.4-8.2); Sodium Level 140 mmol/L (136-145); Thyroid Stim Hormone (TSH) 4.14 uIU/mL (0.358-3.74); Triglycerides 100 mg/dL; Very Low Density Lipoprotein 20 mg/dL (5-40)
== END 2021-06-07 23:59 | disposition home or self-care (01) ==
LOC: MFPLAB 11:25
PROVIDERS: PCP Family Medicine; Referring Provider Family Medicine; Visit Provider Family Medicine
DX: I10 Essential (primary) hypertension (principal); I48.91 Unspecified atrial fibrillation; D50.9 Iron deficiency anemia, unspecified; E55.9 Vitamin D deficiency, unspecified
CPT/HCPCS: 36415; 80053; 80061; 82306; 82728; 83540; 83550; 83735; 84443; 85025

== ENCOUNTER 2021-06-11 18:45 | Emergency (ER) | payer MEDICARE, SELFPAY ==
[2019-07-16 09:26] VITALS: BMI 29.5
[2021-06-11 18:47] VITALS: BP 148/85; PULSE 102; RESP 14; TEMP 36.8; O2SAT 98; BMI 28.4
[2021-06-11 18:58] VITALS: BP 142/79; PULSE 92; RESP 12; O2SAT 94
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
--- NOTE | 2021-06-11 19:27 | RAD_ITS ---
STUDY: X-RAY CHEST REASON FOR EXAM: Female, 71 years old. Chest pain and cough TECHNIQUE: PA and lateral COMPARISON: 06/03/2021 FINDINGS: Reticulonodular interstitial thickening is seen in both lower lobes possibly inflammatory. There is no demonstrated pleural abnormality. Heart is enlarged.. Normal mediastinum and artis. Normal visualized pulmonary arteries. Tortuous mildly calcified aortic arch and descending thoracic aorta. Pacer noted on the left with electrodes in satisfactory position Normal visualized thoracic spine. Normal visualized ribs, clavicles, and shoulders. There is no demonstrated abnormality of the visualized soft tissue structures of the upper abdomen. RAD/Chest PA and Lateral IMPRESSION: Reticulonodular interstitial thickening in the lower lobes possibly inflammatory. Clinical correlation recommended Electronically Signed: Mahin Watkins MD at 20:17 EDT ,
[2021-06-11 20:05] VITALS: PULSE 82; RESP 16; O2SAT 99
== END 2021-06-11 20:09 | disposition home or self-care (01) ==
PROVIDERS: Emergency Provider Emergency Medicine; PCP Family Medicine; Visit Provider Emergency Medicine
DX: R05.9 Cough, unspecified (principal); M06.9 Rheumatoid arthritis, unspecified; J44.9 Chronic obstructive pulmonary disease, unspecified; I13.0 Hypertensive heart and chronic kidney disease with heart failure and stage 1 through stage 4 chronic kidney disease, or unspecified chronic kidney disease; I42.8 Other cardiomyopathies; I50.9 Heart failure, unspecified; N18.4 Chronic kidney disease, stage 4 (severe); I71.4 Abdominal aortic aneurysm, without rupture; I73.9 Peripheral vascular disease, unspecified; I48.91 Unspecified atrial fibrillation; R07.89 Other chest pain; Z87.891 Personal history of nicotine dependence; M25.511 Pain in right shoulder; E78.5 Hyperlipidemia, unspecified; I25.10 Atherosclerotic heart disease of native coronary artery without angina pectoris; V89.2XXA Person injured in unspecified motor-vehicle accident, traffic, initial encounter; Y93.9 Activity, unspecified; Y92.9 Unspecified place or not applicable; J34.89 Other specified disorders of nose and nasal sinuses; F32.A Depression, unspecified; F41.9 Anxiety disorder, unspecified; Z86.16 Personal history of COVID-19; K21.9 Gastro-esophageal reflux disease without esophagitis; K58.9 Irritable bowel syndrome, unspecified; I25.2 Old myocardial infarction; E66.9 Obesity, unspecified; G47.33 Obstructive sleep apnea (adult) (pediatric); Z87.01 Personal history of pneumonia (recurrent); Z95.818 Presence of other cardiac implants and grafts; Z79.01 Long term (current) use of anticoagulants; Z79.899 Other long term (current) drug therapy; D64.9 Anemia, unspecified
CPT/HCPCS: 71046; 99282

== ENCOUNTER 2021-12-05 13:01 | Inpatient (IN) | payer MEDICARE, SELFPAY ==
[2019-07-16 09:26] VITALS: BMI 29.5
[2021-12-05] VITALS (15 sets, daily range): BP systolic 137–157; BP diastolic 74–107; PULSE 86–134; RESP 12–20; TEMP 36.4–36.9; O2SAT 82–95; BMI 27.8; BMI 27.2
--- NOTE | 2021-12-05 13:16 | ED.VIS.CHEST ---
HPI History of Present Illness Chief Complaint: Chest Pain Informant: patient Onset/Context/Timing Onset: Hours (4) Timing: Intermittent (5-6 episodes) and Lasts (around 15 min) Quality: Positive for Pain and Sharp Location: Substernal Current Severity: Gone Maximum Severity: Moderate Worsened By: Nothing; Not Worsened By Breathing Relieved By: Nothing Associated Symptoms: Positive for Diaphoresis, Dyspnea, Cough and Palpitations; Negative for Nausea, Vomiting or Lightheadedness Narrative Narrative: Patient presenting with chest discomfort that felt similar to prior cardiac pain off and on this morning, associated with palpitations, dyspnea. She has also had some orthopnea this morning and a cough with some frothy pink sputum just for the past day. No edema in her legs. She states she is had a total of 10 stents in her heart over the past 10 years or so. Last time she had a heart cath was in 2019, she did have some 60% stenoses but needed no PCI at that time. Last echocardiogram was almost 1 year ago, showed stage III diastolic dysfunction but normal LV systolic function. [facility] Medical History AAA (abdominal aortic aneurysm) without rupture Acute on chronic combined systolic (congestive) and diastolic (congestive) heart failure Acute on chronic diastolic (congestive) heart failure Acute respiratory failure with hypoxia Acute upper GI bleed Anemia Anxiety Anxiety and depression Atherosclerotic heart disease of [place] coronary artery without angina pectoris Atrial fibrillation with RVR Atrial fibrillation with RVR Back contusion Bilateral carotid bruits Cancer Carpal tunnel syndrome, bilateral Chronic kidney disease, stage 4 (severe) Claudication in peripheral vascular disease Congestive heart failure (CHF) COPD (chronic obstructive pulmonary disease) COVID-19 (01/01/20) Delirium due to another medical condition Dyspnea on exertion Emphysema of lung Essential (primary) hypertension GERD (gastroesophageal reflux disease) HLD (hyperlipidemia) Hypokalemia IBS (irritable bowel syndrome) Injury of head and neck Melena Multinodular thyroid Nicotine dependence Non-ischemic cardiomyopathy Non-STEMI (non-ST elevated myocardial infarction) (03/19/19) Obesity BELLE (obstructive sleep apnea) PAD (peripheral artery disease) Paroxysmal atrial fibrillation Peripheral vascular occlusive disease Persistent atrial fibrillation Pneumonia due to 2019 novel coronavirus (01/01/20) Rheumatic fever Rheumatoid arthritis Sepsis (01/01/20) Sinus pause Smoking greater than 30 pack years Tachy-erica syndrome Unstable angina pectoris due to coronary arteriosclerosis Wheezing Home Medications albuterol sulfate 90 mcg/actuation aerosol inhaler 1 - 2 puff inhalation Q4H PRN PRN Dyspnea, wheezing ##1 07/06/20 [Rx Last Taken 12/05/21] nitroglycerin 0.4 mg sublingual tablet (Nitrostat) 0.4 mg sublingual Q5M PRN Chest Pain 11/24/20 [History Last Taken Unknown] trazodone 150 mg tablet 150 mg PO QHS sleep 11/24/20 [History Last Taken 12/04/21] pantoprazole 40 mg tablet,delayed release 40 mg PO DAILY #30 tabs 11/25/20 [Rx Last Taken 12/04/21] atorvastatin 40 mg tablet 40 mg PO DAILY cholesterol 12/07/20 [History Last Taken 12/05/21] ferrous sulfate 325 mg (65 mg iron) tablet 325 mg PO BID supplement 02/11/21 [History Last Taken 12/05/21] buspirone 10 mg tablet 10 mg PO TID 02/22/21 [History Last Taken 12/05/21] calcium carbonate 600 mg-vitamin D3 12.5 mcg (500 unit) capsule (Calcium 600 with Vitamin D3) 1 cap PO DAILY 02/22/21 [History Last Taken 12/05/21] furosemide 40 mg tablet 40 mg PO DAILY diuretic 02/22/21 [History Last Taken 12/05/21] gabapentin 300 mg capsule 300 mg PO BID 02/22/21 [History Last Taken 12/05/21] fluticasone 500 mcg-salmeterol 50 mcg/dose blistr powdr for inhalation (Jhonnyela Inhub) 1 inh inhalation BID breathing #60 ea 05/15/21 [Rx Last Taken 12/05/21] isosorbide mononitrate 60 mg tablet,extended release 24 hr 60 mg PO DAILY HEART #90 tabs 05/28/21 [Rx Last Taken 12/05/21] diltiazem HCl 240 mg capsule,extended release 24 hr 240 mg PO DAILY #30 caps 06/11/21 [Rx Last Taken 12/04/21] amiodarone 200 mg tablet 200 mg PO DAILY #90 tabs 07/23/21 [Rx Last Taken 12/05/21] apixaban 5 mg tablet (Eliquis) 5 mg PO BID #60 tabs 08/02/21 [Rx Last Taken 12/05/21] ascorbic acid (vitamin C) 1,000 mg tablet (Vitamin C) 1,000 mg PO DAILY supplement 12/05/21 [History Last Taken 12/04/21] clopidogrel 75 mg tablet 75 mg PO DAILY antiplatelet 12/05/21 [History Last Taken 12/05/21] dicyclomine 10 mg capsule 10 mg PO 4X/DAY ibs 12/05/21 [History Last Taken 12/05/21] duloxetine 30 mg capsule,delayed release 30 mg PO DAILY 12/05/21 [History Last Taken 12/05/21] gabapentin 300 mg capsule 300 - 600 mg PO DAILY 12/05/21 [History Last Taken 12/04/21] lorazepam 1 mg tablet 1 mg PO TID 12/05/21 [History Last Taken 12/05/21] metoprolol tartrate 100 mg tablet 100 mg PO BID HEART 12/05/21 [History Last Taken 12/05/21] potassium chloride 20 mEq tablet,extended release 20 meq PO BID supplement 12/05/21 [History Last Taken 12/04/21] vitamin E (dl, acetate) 45 mg (100 unit) capsule 45 mg PO DAILY supplement 12/05/21 [History Last Taken 12/04/21] Allergy/AdvReac Type Severity Reaction Status Date / Time lisinopril Allergy tongue Verified 12/05/21 13:06 swelling Family History Father Heart disease Hypertension Seizures Sister CVA (cerebral vascular accident) Hypertension Other Family history of hypertension Surgical History History of angioplasty of peripheral vessel History of bilateral leg stents History of bunionectomy of right great toe History of cardioversion (07/18/20) History of colonoscopy (06/2018) History of coronary artery stent placement (03/18/19) History of hysterectomy History of left heart catheterization (11/25/19) History of permanent cardiac pacemaker placement (03/27/20) History of tonsillectomy Hx of APLL Hx of hysterectomy Status post left foot surgery Social History household members: children and other housing: house Smoking Status: Former smoker how long ago did patient quit smoking: May 2020 alcohol intake: never substance use type: does not use caffeine: No what type of physical activity do you participate in: none ROS ROS ED Constitutional Constitutional ED: Reports sweats; Denies chills or fever(s) Eyes Eyes: Denies change in vision or diplopia ENT ENT ED: Denies rhinorrhea or sore throat Cardiovascular Cardiovascular: Reports chest pain and orthopnea; Denies leg edema or palpitations Respiratory/Chest Respiratory/Chest: Reports cough, dyspnea and orthopnea Gastrointestinal Gastrointestinal: Denies abdominal pain, diarrhea, nausea or vomiting Genitourinary Genitourinary ED: Denies dysuria or hematuria Musculoskeletal Musculoskeletal: Denies back pain or neck pain Integumentary Denies abscess or rash Neurologic Neurologic: Denies headache(s), paresthesias or weakness Psychiatric Psychiatric: Denies anxiety or suicidal thoughts EXAM Physical Exam Const Vital Signs: 12/05/21 13:02 12/05/21 13:06 12/05/21 13:06 Temperature 98.1 F 98.1 F Temperature Source Oral Oral Pulse Rate 111 H 91 Respiratory Rate 20 H 17 Respiratory Effort Blood Pressure 156/80 H 156/80 H Blood Pressure Mean 105 105 Pulse Ox 82 92 92 Oxygen Delivery Method Room Air Nasal Cannula Nasal Cannula Oxygen Flow Rate (L/min) 2 2 12/05/21 13:06 12/05/21 13:21 12/05/21 13:28 Temperature Temperature Source Pulse Rate 93 Respiratory Rate Respiratory Effort Short of Breath Blood Pressure 141/80 H Blood Pressure Mean Pulse Ox 82 Oxygen Delivery Method Room Air Oxygen Flow Rate (L/min) 12/05/21 14:10 Temperature 97.8 F Temperature Source Temporal Pulse Rate 86 Respiratory Rate 14 Respiratory Effort Blood Pressure 141/81 H Blood Pressure Mean 101 Pulse Ox 93 Oxygen Delivery Method Room Air Oxygen Flow Rate (L/min) Positive well nourished and well developed General Appearance ED: well developed and NAD HEENT Reports moist mucous membranes normocephalic and atraumatic Eyes PERRL and EOMs intact bilaterally Neck full ROM, supple and no JVD Resp normal respiratory effort Resp Narrative: Bibasilar rhonchi Cardio no murmurs Rate: Negative for tachycardic Rhythm: abnormal rhythm irregularly irregular GI non-tender and non-distended Auscultation: normoactive bowel sounds Palpation: soft Back/Spine no CVA tenderness General Back: other FROM Extremity normal to inspection General Extremety ED: Negative for edema, pulses abnormal or tenderness General Extremity: Negative for edema or pulses abnormal Neuro oriented x3, CN's II-XII intact bilaterally and no sensory deficits noted Sensorium / Orientation: awake and alert Motor Exam: strength 5/5 throughout Psych mental status grossly normal Skin no rashes or lesions noted and no wounds MDM MDM MDM Narrative Medical decision making narrative: Work-up is consistent with acute congestive heart failure. Initial troponin is negative, the second has not yet been performed but is ordered. EKG shows no acute injury pattern but is consistent with atrial fibrillation and some nonspecific ST-T wave abnormalities. Patient is still having some chest discomfort despite nitroglycerin, Lasix, and although feeling a little better with regards to malaise and dyspnea, still hypoxic on room air at 86%. She is requiring 2 L nasal cannula. Last echocardiogram showed no systolic dysfunction. Patient is not on Lasix at home, I recommend admission given all of this. Lab Data Attestation: I reviewed the patient's lab results. Labs: Laboratory Results - last 24 hr 12/05/21 12/05/21 12/05/21 13:17 13:17 13:17 WBC 9.3 RBC 4.14 L Hgb 12.7 Hct 38.4 MCV 92.8 MCH 30.7 MCHC 33.1 RDW Std Deviation 47.7 H RDW Coeff of Natalie 14.3 Plt Count 182 MPV 10.9 Immature Gran % (Auto) 0.500 Neut % (Auto) 86.7 H Lymph % (Auto) 7.0 L Sullivan % (Auto) 4.7 Eos % (Auto) 0.8 Baso % (Auto) 0.3 Absolute Neuts (auto) 8.1 H Absolute Lymphs (auto) 0.65 L Nucleated RBC % 0 Sodium 142 Potassium 4.3 Chloride 108 H Carbon Dioxide 27.0 Anion Gap 7 BUN 19 H Creatinine 1.18 H Estim Creat Clear Calc 34.08 Est GFR (MDRD) Af Amer 58 L Est GFR (MDRD) Non-Af 48 L BUN/Creatinine Ratio 16.1 Glucose 113 H Calcium 8.8 Troponin I High Sens 17 B-Natriuretic Peptide 1436.8 H Radiography Diagnostic Testing: Clinical Impression(s) from Imaging Studies Chest X-Ray 12/05/21 13:25 IMPRESSION: Prominence of the bronchovascular and interstitial lung markings is seen demonstrating no significant change in comparison to the prior study consistent with chronic interstitial lung disease, cannot rule out superimposed air trapping, congestion or infiltrates would recommend clinical correlation Electronically Signed: Tye Browning MD at 13:43 EDT Reading Location ID and State: [facility] / [place] Tel , Service support , Rhythm Strip Rhythm Strip: A-fib Rate: 90 Ectopy: None EKG Initial EKG: Attestation: I personally reviewed and interpreted this EKG as follows: Interpretation: Atrial Fibrillation and S-T Depression (infero-lat; no recip TAWNYA) Discharge Plan Dx/Rx/DC Orders Clinical Impression: Acute CHF, Persistent atrial fibrillation, Chest pain, Hypoxemia Disposition Disposition: Acute Care Hospital [facility]
--- NOTE | 2021-12-05 13:25 | RAD_ITS ---
INDICATION: chest pain, sob EXAMINATION/TECHNIQUE: X-RAY - XR Chest 2 Views COMPARISON: 06/03/2021. FINDINGS: LINES/DEVICES: AICD visualized in the left chest with 2 leads in the heart. EKG leads are seen superimposing the chest. LUNGS: Peribronchial cuffing bilateral hilar prominence, mild prominence of the bronchovascular interstitial lung markings is visualized bilaterally demonstrating no significant increase in comparison to the prior study, patchy bilateral airspace opacification is visualized in bilateral lung ruffin. Biapical prominence demonstrates no change consistent with COPD changes. Mild blunting of the left costophrenic angle is seen demonstrating no change. Unremarkable aeration of the right costophrenic angle. MEDIASTINUM AND CARDIOVASCULAR STRUCTURES: Cardiac silhouette is slightly prominent in size but demonstrates no significant change in comparison to the prior study. BONES AND SOFT TISSUES: Unremarkable. RAD/Chest PA and Lateral IMPRESSION: Prominence of the bronchovascular and interstitial lung markings is seen demonstrating no significant change in comparison to the prior study consistent with chronic interstitial lung disease, cannot rule out superimposed air trapping, congestion or infiltrates would recommend clinical correlation Electronically Signed: Tye Browning MD at 13:43 EDT ,
[2021-12-05] MEDS: Furosemide 40 MG/4 ML Vial IV ×2 (13:28→17:23)
[2021-12-05] MEDS: Nitroglycerin SL (ED/IMG/CATH) 0.4 MG TABLET SL (13:28)
[2021-12-05 13:29] LABS: Absolute Lymphocyte Count 0.65 X10^3/uL (0.83-4.51); Absolute Neutrophil Count 8.1 X10^3/uL (2.0-7.7); Basophil# 0.03 X10^3/uL; Basophil% 0.3 % (0-1); Eosinophil# 0.07 X10^3/uL; Eosinophils% 0.8 % (0-5); Hematocrit 38.4 % (37-47); Hemoglobin 12.7 g/dL (12.0-15.0); Lymphocyte # 0.65 X10^3/ul (0.83-4.51); Mean Corp Hgb Conc 33.1 g/dL (32-36); Mean Corpuscular Hgb 30.7 pg (27.0-32.0); Mean Corpuscular Volume 92.8 fL (81-99); Mean Platelet Vol. 10.9 fl (6.2-12.0); Monocyte# 0.44 X10^3/uL; Monocyte% 4.7 % (0-10); NRBC Flagged by Analyzer 0 % (0-5); Neutrophil # 8.08 X10^3/uL (2.7-7.7); Neutrophil % 86.7 % (47-70); Platelet Count 182 K/mm3 (150-450); RBC Distribution Width CV 14.3 % (11.6-14.6); RBC Distribution Width SD 47.7 fl (35.1-43.9); Red Blood Count 4.14 M/mm3 (4.2-5.4); White Blood Count 9.3 K/mm3 (4.4-11.0)
[2021-12-05 13:42] LABS: Anion Gap 7 (5-15); BUN 19 mg/dL (7-18); BUN/Creat Ratio 16.1 RATIO (10-20); Calcium,Total 8.8 mg/dL (8.5-10.1); Chloride 108 mmol/L (98-107); Creatinine, Serum 1.18 mg/dL (0.55-1.02); EST Glomerular Filtration Rate 48 mL/min (>60); Est Glom Filt Rate - Afr Amer 58 mL/min (>60); Estimated Creatinine Clearance 34.08 ml/min; Glucose 113 mg/dL (74-106); Potassium 4.3 mmol/L (3.5-5.1); Sodium Level 142 mmol/L (136-145); Troponin-I HS (w/2H Reflex) 17 pg/mL (3.0-54.0)
[2021-12-05 13:48] LABS: BNP,B-Type NATRIURETIC PEPTIDE 1436.8 pg/mL (0-100)
--- NOTE | 2021-12-05 14:48 | HP.PCM.HOS_ITS ---
HPI - General General Date of Admission: 12/05/21 Date of Service: 12/05/21 Chief Complaint: chest pain HPI Narrative CURLY MORALES, is a 71 F with a PMh as outlined who presents via the ED on 12/05/2021 with a complaint of chest pain. It had been episodic since morning of admission, and was described as pressure like, with no aggravating or relieving factors. She had associated shortness of breath and orthopnea and also complained of a cough which was productive of pinkish sputum. She denied any lower extremity edema, palpitations, dizziness, nausea or vomiting. Review of systems was otherwise negative. Vitals in the ED were BP of 141/81, MN of 86, RR of 14 adn temp of 97.8F. She was saturating at 93% on room air. CBC was unremarkable, and BMP showed Cr of 1.18, but was otherwise unremarkable. BNP was 1436.8. EKG showed afib. She was hypoxic on room air on admission at 86%. CXR showed prominence of hte bronchovascular and interstitial lung markings consistent with chronic interstitial lung disease, cannot rule out superimposed air trapping, congestion or infiltrates. She is being admitted to be managed for acute on chronic heart failure. [facility] Medical History AAA (abdominal aortic aneurysm) without rupture Acute on chronic combined systolic (congestive) and diastolic (congestive) heart failure Acute on chronic diastolic (congestive) heart failure Acute respiratory failure with hypoxia Acute upper GI bleed Anemia Anxiety Anxiety and depression Atherosclerotic heart disease of [place] coronary artery without angina pectoris Atrial fibrillation with RVR Atrial fibrillation with RVR Back contusion Bilateral carotid bruits Cancer Carpal tunnel syndrome, bilateral Chronic kidney disease, stage 4 (severe) Claudication in peripheral vascular disease Congestive heart failure (CHF) COPD (chronic obstructive pulmonary disease) COVID-19 (01/01/20) Delirium due to another medical condition Dyspnea on exertion Emphysema of lung Essential (primary) hypertension GERD (gastroesophageal reflux disease) HLD (hyperlipidemia) Hypokalemia IBS (irritable bowel syndrome) Injury of head and neck Melena Multinodular thyroid Nicotine dependence Non-ischemic cardiomyopathy Non-STEMI (non-ST elevated myocardial infarction) (03/19/19) Obesity BELLE (obstructive sleep apnea) PAD (peripheral artery disease) Paroxysmal atrial fibrillation Peripheral vascular occlusive disease Persistent atrial fibrillation Pneumonia due to 2019 novel coronavirus (01/01/20) Rheumatic fever Rheumatoid arthritis Sepsis (01/01/20) Sinus pause Smoking greater than 30 pack years Tachy-erica syndrome Unstable angina pectoris due to coronary arteriosclerosis Wheezing Home Medications albuterol sulfate 90 mcg/actuation aerosol inhaler 1 - 2 puff inhalation Q4H PRN PRN Dyspnea, wheezing ##1 07/06/20 [Rx Last Taken 12/05/21] nitroglycerin 0.4 mg sublingual tablet (Nitrostat) 0.4 mg sublingual Q5M PRN Chest Pain 11/24/20 [History Last Taken Unknown] trazodone 150 mg tablet 150 mg PO QHS sleep 11/24/20 [History Last Taken 12/04/21] pantoprazole 40 mg tablet,delayed release 40 mg PO DAILY #30 tabs 11/25/20 [Rx Last Taken 12/04/21] atorvastatin 40 mg tablet 40 mg PO DAILY cholesterol 12/07/20 [History Last Taken 12/05/21] ferrous sulfate 325 mg (65 mg iron) tablet 325 mg PO BID supplement 02/11/21 [History Last Taken 12/05/21] buspirone 10 mg tablet 10 mg PO TID 02/22/21 [History Last Taken 12/05/21] calcium carbonate 600 mg-vitamin D3 12.5 mcg (500 unit) capsule (Calcium 600 with Vitamin D3) 1 cap PO DAILY 02/22/21 [History Last Taken 12/05/21] furosemide 40 mg tablet 40 mg PO DAILY diuretic 02/22/21 [History Last Taken 12/05/21] fluticasone 500 mcg-salmeterol 50 mcg/dose blistr powdr for inhalation (Wifabianela Inhub) 1 inh inhalation BID breathing #60 ea 05/15/21 [Rx Last Taken 12/05/21] isosorbide mononitrate 60 mg tablet,extended release 24 hr 60 mg PO DAILY HEART #90 tabs 05/28/21 [Rx Last Taken 12/05/21] diltiazem HCl 240 mg capsule,extended release 24 hr 240 mg PO DAILY #30 caps 06/11/21 [Rx Last Taken 12/04/21] amiodarone 200 mg tablet 200 mg PO DAILY #90 tabs 07/23/21 [Rx Last Taken 12/05/21] apixaban 5 mg tablet (Eliquis) 5 mg PO BID #60 tabs 08/02/21 [Rx Last Taken 12/05/21] ascorbic acid (vitamin C) 1,000 mg tablet (Vitamin C) 1,000 mg PO DAILY supplement 12/05/21 [History Last Taken 12/04/21] clopidogrel 75 mg tablet 75 mg PO DAILY antiplatelet 12/05/21 [History Last Taken 12/05/21] dicyclomine 10 mg capsule 10 mg PO 4X/DAY ibs 12/05/21 [History Last Taken 12/05/21] duloxetine 30 mg capsule,delayed release 30 mg PO DAILY 12/05/21 [History Last Taken 12/05/21] gabapentin 300 mg capsule 300 - 600 mg PO TID 12/05/21 [History Last Taken 12/04/21] lorazepam 1 mg tablet 1 mg PO TID PRN Anxiety 12/05/21 [History Last Taken 12/05/21] metoprolol tartrate 100 mg tablet 100 mg PO BID HEART 12/05/21 [History Last Taken 12/05/21] potassium chloride 20 mEq tablet,extended release 20 meq PO BID supplement 12/05/21 [History Last Taken 12/04/21] vitamin E (dl, acetate) 45 mg (100 unit) capsule 45 mg PO DAILY supplement 12/05/21 [History Last Taken 12/04/21] apixaban 5 mg tablet (Eliquis) 5 mg PO BID 12/06/21 [History Last Taken Unknown] duloxetine 60 mg capsule,delayed release 60 mg PO DAILY 12/06/21 [History Last Taken Unknown] Allergy/AdvReac Type Severity Reaction Status Date / Time lisinopril Allergy tongue Verified 12/05/21 13:06 swelling Family History Father Heart disease Hypertension Seizures Sister CVA (cerebral vascular accident) Hypertension Other Family history of hypertension Surgical History History of angioplasty of peripheral vessel History of bilateral leg stents History of bunionectomy of right great toe History of cardioversion (07/18/20) History of colonoscopy (06/2018) History of coronary artery stent placement (03/18/19) History of hysterectomy History of left heart catheterization (11/25/19) History of permanent cardiac pacemaker placement (03/27/20) History of tonsillectomy Hx of APLL Hx of hysterectomy Status post left foot surgery Social History household members: children and other housing: house Smoking Status: Former smoker how long ago did patient quit smoking: May 2020 alcohol intake: never substance use type: does not use caffeine: No what type of physical activity do you participate in: none ROS Review of Systems ROS Unobtainable: Denies due to encephalopathy Constitutional Constitutional: Reports malaise and weakness; Denies anorexia, chills, fatigue or fever(s) Eyes Eyes: Denies change in vision ENT HEENT: Denies dysphagia, headache(s) or sore throat Cardiovascular Cardiovascular: Reports chest pain, dyspnea on exertion, orthopnea, palpitations and paroxysmal nocturnal dyspnea; Denies edema, lightheadedness, rapid heart rate or syncope Respiratory/Chest Respiratory/Chest: Reports cough, dyspnea, hemoptysis, shortness of breath at rest and shortness of breath with exertion; Denies excessive phlegm production, productive cough or wheezing Gastrointestinal Gastrointestinal: Denies abdominal pain or constipation Genitourinary Genitourinary: Denies dysuria or hematuria Musculoskeletal Musculoskeletal: Denies arthralgias or back pain Neurologic Neurologic: Denies confusion, dizziness, focal weakness, headache(s), numbness or seizure-like activity Psychiatric Psychiatric: Denies anxiety or depression Hematologic/Lymphatic Hematologic/Lymphatic: Denies anemia Vital Signs Vital Signs Vital Signs: 12/05/21 13:02 12/05/21 13:06 12/05/21 13:06 Temperature 98.1 F 98.1 F Temperature Source Oral Oral Pulse Rate 111 H 91 Respiratory Rate 20 H 17 Respiratory Effort Blood Pressure 156/80 H 156/80 H Blood Pressure Mean 105 105 Pulse Ox 82 92 92 Oxygen Delivery Method Room Air Nasal Cannula Nasal Cannula Oxygen Flow Rate (L/min) 2 2 12/05/21 13:06 12/05/21 13:21 12/05/21 13:28 Temperature Temperature Source Pulse Rate 93 Respiratory Rate Respiratory Effort Short of Breath Blood Pressure 141/80 H Blood Pressure Mean Pulse Ox 82 Oxygen Delivery Method Room Air Oxygen Flow Rate (L/min) 12/05/21 14:10 Temperature 97.8 F Temperature Source Temporal Pulse Rate 86 Respiratory Rate 14 Respiratory Effort Blood Pressure 141/81 H Blood Pressure Mean 101 Pulse Ox 93 Oxygen Delivery Method Room Air Oxygen Flow Rate (L/min) Weight Weight: 152 lb 1.903 oz Body Mass Index (BMI) 27.8 Physical Exam Const alert, oriented x3 and no apparent distress General Appearance: cooperative HEENT normocephalic, head/scalp atraumatic, hearing grossly normal bilaterally and azael st oral mucous membranes Mouth: oral and palatal mucosa normal Eyes PERRL, EOMs intact bilaterally and conjunctivae normal Neck no lymphadenopathy, supple and no JVD Resp Resp Narrative: diminished breath sounds bibasally, no wheezes or crackles. On room air, satu rating at 93% on 3L of oxygen Cardio S1 normal heart sound, S2 normal heart sound and no murmurs Cardio Narrative: afib, rate controlled GI normal to inspection, nondistended, normoactive bowel sounds, soft to palpation, non-tender and non-distended Extremity normal to inspection, full ROM and no clubbing, cyanosis or edema Neuro oriented x3, CN's II-XII intact bilaterally and moves all extremities Sensorium / Orientation: awake and alert Motor Exam: strength 5/5 throughout Psych affect normal Results Lab / Micro Data Result Diagrams: 12/06/21 05:03 12/06/21 05:03 Labs: Laboratory Results - last 24 hr 12/05/21 13:17: WBC 9.3, RBC 4.14 L, Hgb 12.7, Hct 38.4, MCV 92.8, MCH 30.7, MCHC 33.1, RDW Std Deviation 47.7 H, RDW Coeff of Natalie 14.3, Plt Count 182, MPV 10.9, Immature Gran % (Auto) 0.500, Neut % (Auto) 86.7 H, Lymph % (Auto) 7.0 L, Miner % (Auto) 4.7, Eos % (Auto) 0.8, Baso % (Auto) 0.3, Absolute Neuts (auto) 8.1 H, Absolute Lymphs (auto) 0.65 L, Nucleated RBC % 0 12/05/21 13:17: Sodium 142, Potassium 4.3, Chloride 108 H, Carbon Dioxide 27.0, Anion Gap 7, BUN 19 H, Creatinine 1.18 H, Estim Creat Clear Calc 34.08, Est GFR (MDRD) Af Amer 58 L, Est GFR (MDRD) Non-Af 48 L, BUN/Creatinine Ratio 16.1, Glucose 113 H, Calcium 8.8, Troponin I High Sens 17 12/05/21 13:17: B-Natriuretic Peptide 1436.8 H Radiology Impression Chest X-Ray 12/05/21 13:25 IMPRESSION: Prominence of the bronchovascular and interstitial lung markings is seen demonstrating no significant change in comparison to the prior study consistent with chronic interstitial lung disease, cannot rule out superimposed air trapping, congestion or infiltrates would recommend clinical correlation Electronically Signed: Tye Browning MD at 13:43 EDT , Assessment & Plan Assessment/Plan (1) Acute CHF: (2) Chest pain: PLAN: Plan #Acute on chronic heart failure with preserved EF * admit to pcu * start diuresis with IV lasix 40mg bid * monitor intake and output. Fluid restriction to 1500cc daily * 2D echo from January 2021 showed EF of 55-59% with stage 3 diastolic dysfunction and no regional wall motion abnormalities seen, and mild concentric LVH and 2+ mitral valve insufficiency * breathing treatment with bronchodilators * titrate oxygen to maintain sats >90% * order 2D echo * cycle troponins * #CHest pain to rule out ACS * may be due to heart failure * initial troponin negative * EKG showed no acute st changes * cycle troponins * PO aspirin * #CAD s/p stents * has had 10 stents; had stenting of the posterior descending as well as right posterior lateral artery in March 2019 * on aspirin and statin as well as plavix * #Afib * rate controlled. On amiodarone and eliquis. 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 Patient elects to be full code. * Total [id number] time 16 minutes. Charges/Coding Visit Charges Inpatient E&M: 42251 Init Hosp L3 Procedures Hospitalists Procedures: 30873 Advncd Care Plan 30 Min
[2021-12-05 15:22] LABS: Reflex Troponin-HS? (from REC) Y
[2021-12-05] MEDS: Ferrous Sulfate 325 MG Tablet PO (16:22)
[2021-12-05] MEDS: Potassium Chloride Oral Tablet 20 MEQ PO (16:22)
[2021-12-05] MEDS: Gabapentin 300 MG Capsule PO (16:23)
[2021-12-05 17:02] LABS: Troponin-I HS 16 pg/mL (3.0-54.0)
--- NOTE | 2021-12-05 17:02 | CM.ED ---
Social Work This clinical social work therapist notified by nursing staff about concerns of patient leaving AMA as it is being recommended for patient to admit to acute care setting. Nursing reports that main reason patient wants to leave AMA is because patient is not able to obtain care for 14 year old grandson that patient is primary caregiver for. This clinical social work therapist met with patient in room. Introduced self and clinical social work therapist role. Patient agreeable to speak with this clinical social work therapist. Patient states to now be agreeable to admission to acute care unit. This clinical social work therapist inquired about status of care for patient grandson, patient states to have friends that are picking up patient grandson, Richard and providing care for grandson. Patient states to feel comfortable with plan for care of Richard. Patient states to be glad that patient decided to stay in the hospital I think it was best. Patient now needs oxygen and typically does not wear oxygen at home. Patient states plan to return to home. Patient reports to have had custody of Richard since June 2021 when patient daughter from colon cancer. This clinical social work therapist able to discuss the grief process and offer support for patient. Patient reports to have been living with daughter and Richard for the past 6 years as it was just easier. Patient reports to typically be independent and care for self. Active support and listening provided. Social work to continue to follow as needed. Naga BEST, NESTOR
[2021-12-05] MEDS: Dicyclomine 10 MG Capsule PO ×2 (17:23→20:31)
[2021-12-05] MEDS: 0.9% Saline Lock 10 ML Syringe IV (17:25)
[2021-12-05 19:34] LABS: Troponin-I HS 19 pg/mL (3.0-54.0)
[2021-12-05] MEDS: Metoprolol Tartrate 100 MG Tablet PO (20:03)
[2021-12-05] MEDS: LORazepam 1 MG Tablet PO (20:31)
[2021-12-05] MEDS: traZODone 100 MG Tablet 150 MG PO (20:32)
[2021-12-05] MEDS: busPIRone 5 MG Tablet 10 MG PO (20:34)
[2021-12-05] MEDS: APIXABAN 5 MG TABLET PO (20:35)
[2021-12-05] MEDS: Atorvastatin Calcium 40 MG Tablet PO (20:35)
[2021-12-05] MEDS: Gabapentin 300 MG Capsule 600 MG PO (20:36)
[2021-12-05] MEDS: Budesonide Respules 0.5 MG/2 ML AMPUL.NEB. INHALATION (21:44)
[2021-12-06] VITALS (18 sets, daily range): BP systolic 127–152; BP diastolic 65–82; PULSE 75–138; RESP 12–20; TEMP 36.1–36.8; O2SAT 92–96
[2021-12-06] MEDS: busPIRone 5 MG Tablet 10 MG PO ×2 (05:28→21:32)
[2021-12-06] MEDS: LORazepam 1 MG Tablet PO ×2 (05:28→21:31)
[2021-12-06 05:29] LABS: Absolute Lymphocyte Count 0.76 X10^3/uL (0.83-4.51); Absolute Neutrophil Count 6.3 X10^3/uL (2.0-7.7); Basophil# 0.03 X10^3/uL; Basophil% 0.4 % (0-1); Eosinophil# 0.09 X10^3/uL; Eosinophils% 1.2 % (0-5); Hemoglobin 12.5 g/dL (12.0-15.0); Lymphocyte # 0.76 X10^3/ul (0.83-4.51); Lymphocyte % 9.8 % (19-41); Mean Corp Hgb Conc 34.7 g/dL (32-36); Mean Corpuscular Hgb 31.6 pg (27.0-32.0); Mean Corpuscular Volume 91.1 fL (81-99); Mean Platelet Vol. 10.8 fl (6.2-12.0); Monocyte% 7.7 % (0-10); NRBC Flagged by Analyzer 0 % (0-5); Neutrophil # 6.29 X10^3/uL (2.7-7.7); Neutrophil % 80.8 % (47-70); Platelet Count 160 K/mm3 (150-450); RBC Distribution Width CV 14.1 % (11.6-14.6); RBC Distribution Width SD 46.9 fl (35.1-43.9); Red Blood Count 3.95 M/mm3 (4.2-5.4); White Blood Count 7.8 K/mm3 (4.4-11.0)
[2021-12-06 05:50] LABS: Anion Gap 8 (5-15); BUN 23 mg/dL (7-18); Calcium,Total 8.5 mg/dL (8.5-10.1); Chloride 106 mmol/L (98-107); Creatinine, Serum 1.21 mg/dL (0.55-1.02); EST Glomerular Filtration Rate 46 mL/min (>60); Est Glom Filt Rate - Afr Amer 56 mL/min (>60); Estimated Creatinine Clearance 33.24 ml/min; Glucose 101 mg/dL (74-106); Potassium 3.7 mmol/L (3.5-5.1); Sodium Level 141 mmol/L (136-145)
[2021-12-06] MEDS: Budesonide Respules 0.5 MG/2 ML AMPUL.NEB. INHALATION (06:49)
[2021-12-06] MEDS: Albuterol 2.5 MG/3 ML VIAL.NEB. INHALATION ×2 (06:49→12:39)
[2021-12-06] MEDS: Calcium Carb/Vitamin D 1 TABLET Tablet PO (08:18)
[2021-12-06] MEDS: Potassium Chloride Oral Tablet 20 MEQ PO ×2 (08:18→17:58)
[2021-12-06] MEDS: Ferrous Sulfate 325 MG Tablet PO ×2 (08:18→17:58)
[2021-12-06] MEDS: Isosorbide Mononitrate 60 MG Tablet PO (08:19)
[2021-12-06] MEDS: Ascorbic Acid 500 MG Tablet 1000 MG PO (08:19)
[2021-12-06] MEDS: Amiodarone 200 MG Tablet PO (08:19)
[2021-12-06] MEDS: Clopidogrel Bisulfate 75 MG Tablet PO (08:19)
[2021-12-06] MEDS: dilTIAZem CD 240 MG Capsule PO (08:19)
[2021-12-06] MEDS: Dicyclomine 10 MG Capsule PO ×3 (08:19→21:32)
[2021-12-06] MEDS: DULoxetine Hcl 30 MG Capsule PO (08:19)
[2021-12-06] MEDS: APIXABAN 5 MG TABLET PO ×2 (08:19→21:32)
[2021-12-06] MEDS: Pantoprazole Sodium 40 MG Tablet PO (08:19)
[2021-12-06] MEDS: Metoprolol Tartrate 100 MG Tablet PO ×2 (08:20→21:32)
[2021-12-06] MEDS: Vitamin E 400 UNITS Capsule PO (08:20)
[2021-12-06] MEDS: Furosemide 40 MG/4 ML Vial IV ×2 (10:45→17:58)
[2021-12-06] MEDS: 0.9% Saline Lock 10 ML Syringe IV (10:45)
--- NOTE | 2021-12-06 11:10 | CASEMGMT ---
RN ESTELA Face to Face with patient for initial transition planning/care coordination assessment. RN CM introduced self and role at [facility]. Patient lying in bed, alert and oriented. Patient willing to participate in assessment and is able to answer all questions appropriately. Care providers, pharmacy, and demographics verified. Patient wishes to discharge home, denies need for home health at this time. Patient states she has no further needs or concerns at this time. CM to follow for discharge planning needs that may arise. PCP: [facility] Specialists: Kamila, art dealer; Francisco J, cutting and creasing press operator; Preferred Pharmacy: [facility] Insurance: [facility] dual Prescription Benefit: yes Living Will/HPOA: ye, son Néstor Puri, HPOA LNOK: sons Living Arrangements: Patient lives with 13yo grandson, that is staying with her son, in a 2 story home. Patient states she is independent and able to ambulate stairs. Transportation: self, son DME/HHC: Patien thas shower chair, grab bars walker, wheelchair, bipap, and pulse ox at home. Will monitor for home oxygen at discharge, patient states she prefers [facility] if it is in-network with her insurance. Patient denies previous HHC or SNF Disposition Plan: Patient to discharge home with family support and follow-up plans in place. Jacqueline DHILLON, RN, CM
--- NOTE | 2021-12-06 12:14 | ECHOD_ITS ---
Reason For Study: DYSPNEA/SOB Procedure This was a 2D Doppler, Color Flow transthoracic echocardiogram. Exam performed portable in patient room. Left Ventricle Mildly dilated left ventricle. Severe global left ventricular systolic dysfunction. The estimated ejection fraction is 15-20 %. Right Ventricle Normal right ventricle. Atria The left atrium is severely enlarged. Normal right atrium. Mitral Valve Mild mitral annular calcification. Severe (4+) eccentric mitral valve insufficiency. Tricuspid Valve Trivial tricuspid valve insufficiency. Aortic Valve Aortic sclerosis, no stenosis. Mild-Moderate (1-2+) aortic valve insufficiency. Pulmonic Valve The pulmonic valve is not well visualized. Mild (1+) eccentric pulmonic valve insufficiency. Great Vessels Normal sized aortic root. Pericardium/Pleural No pericardial effusion. MMode/2D Measurements & Calculations LVIDd: 5.6 cm IVSd: 1.2 cm Ao root diam: 3.0 cm LVIDs: 3.9 cm LVPWd: 1.1 cm RVDd: 3.3 cm FS: 29.4 % LAV(MOD-bp): 163.3 ml LVAd ap4: 31.6 cm2 LVAd ap2: 27.4 cm2 LAV(MOD-bp) Indexed: 96.0 ml/m2 LVLd ap4: 7.7 cm LVLd ap2: 7.2 cm LAV(MOD-sp2): 162.3 ml EDV(MOD-sp4): 105.9 ml EDV(MOD-sp2): 89.4 ml LAV(MOD-sp4): 144.1 ml EDV(sp4-el): 110.9 ml EDV(sp2-el): 88.2 ml LVAs ap4: 25.2 cm2 LVAs ap2: 22.5 cm2 LVLs ap4: 6.9 cm LVLs ap2: 6.7 cm ESV(MOD-sp4): 76.8 ml ESV(MOD-sp2): 67.0 ml ESV(sp4-el): 77.6 ml ESV(sp2-el): 64.5 ml EF(MOD-sp4): 27.5 % EF(MOD-sp2): 25.1 % EF(sp4-el): 30.0 % SV(MOD-sp4): 29.2 ml SV(MOD-sp2): 22.4 ml SV(sp4-el): 33.3 ml LA dimension(2D): 4.9 cm LA A4 area: 36.8 cm2 RA A4 area: 18.3 cm2 Doppler Measurements & Calculations Ao V2 max: 125.0 cm/sec AI max isaac: 455.4 cm/sec LV V1 max: 92.8 cm/sec Ao max P.7 mmHg AI max P.1 mmHg LV V1 max P.7 mmHg Ao V2 mean: 85.5 cm/sec AI dec slope: 263.5 cm/sec2 LV V1 mean P.8 mmHg Ao mean P.5 mmHg AI P1/2t: 506.3 msec LV V1 mean: 58.5 cm/sec Ao V2 VTI: 17.6 cm LV V1 VTI: 12.4 cm MR max isaac: 478.8 cm/sec PA V2 max: 130.5 cm/sec MR max P.6 mmHg MR mean isaac: 336.8 cm/sec MR mean P.1 mmHg MR VTI: 122.5 cm ECHO/Echo Complete Interpretation Summary Mildly dilated left ventricle. Severe global left ventricular systolic dysfunction. The estimated ejection fraction is 15-20 %. Mild mitral annular calcification. Severe (4+) eccentric mitral valve insufficiency. Mild-Moderate (1-2+) aortic valve insufficiency. Mild (1+) eccentric pulmonic valve insufficiency. Ordering Physician: Anjana Santos Referring Physician: Cem Jewell Performed By: Laura Farah, HORACE, RVT
--- NOTE | 2021-12-06 12:31 | PN.HOSP_ITS ---
Subjective Subjective Patient seen and examined. She had no complaints today and felt much better. She had an uneventful night. Review of systems is otherwise negative. She passed 1.4L of urine since admission and says her shortness of breath is much better. Labs and vitals reviewed. Objective Data Objective Data Vital Signs: Vital Signs Temp Pulse Resp BP Pulse Ox O2 Del Method O2 Flow Rate 97.5 F L 91 18 143/74 H 96 Nasal Cannula 2 12/06/21 10:00 12/06/21 10:00 12/06/21 10:00 12/06/21 10:00 12/06/21 10:00 12/06/21 10:00 12/06/21 10:00 FiO2 28 12/06/21 05:26 Oxygen Flow Rate (L/min) 2 Oxygen Delivery Method Nasal Cannula Weight: 149 lb 0.52 oz Body Mass Index (BMI) 27.2 Intake & Output: Intake and Output for Last 24 Hours 12/04/21 12/05/21 12/06/21 23:59 23:59 23:59 Intake Total 240 / 240 200 / 200 Output Total 1600 / 1600 Balance 240 / 240 -1400 / -1400 Lab / Micro Data Result Diagrams: 12/06/21 05:03 12/06/21 05:03 Labs: Laboratory Results - last 24 hr 12/05/21 13:17: WBC 9.3, RBC 4.14 L, Hgb 12.7, Hct 38.4, MCV 92.8, MCH 30.7, MCHC 33.1, RDW Std Deviation 47.7 H, RDW Coeff of Natalie 14.3, Plt Count 182, MPV 10.9, Immature Gran % (Auto) 0.500, Neut % (Auto) 86.7 H, Lymph % (Auto) 7.0 L, Bacon % (Auto) 4.7, Eos % (Auto) 0.8, Baso % (Auto) 0.3, Absolute Neuts (auto) 8.1 H, Absolute Lymphs (auto) 0.65 L, Nucleated RBC % 0 12/05/21 13:17: Sodium 142, Potassium 4.3, Chloride 108 H, Carbon Dioxide 27.0, Anion Gap 7, BUN 19 H, Creatinine 1.18 H, Estim Creat Clear Calc 34.08, Est GFR (MDRD) Af Amer 58 L, Est GFR (MDRD) Non-Af 48 L, BUN/Creatinine Ratio 16.1, Glucose 113 H, Calcium 8.8, Troponin I High Sens 17 12/05/21 13:17: B-Natriuretic Peptide 1436.8 H 12/05/21 16:20: Troponin I High Sens 16 12/05/21 19:00: Troponin I High Sens 19 12/06/21 05:03: WBC 7.8, RBC 3.95 L, Hgb 12.5, Hct 36.0 L, MCV 91.1, MCH 31.6, MCHC 34.7, RDW Std Deviation 46.9 H, RDW Coeff of Natalie 14.1, Plt Count 160, MPV 10.8, Immature Gran % (Auto) 0.100, Neut % (Auto) 80.8 H, Lymph % (Auto) 9.8 L, Bacon % (Auto) 7.7, Eos % (Auto) 1.2, Baso % (Auto) 0.4, Absolute Neuts (auto) 6.3, Absolute Lymphs (auto) 0.76 L, Nucleated RBC % 0 12/06/21 05:03: Sodium 141, Potassium 3.7, Chloride 106, Carbon Dioxide 27.0, Anion Gap 8, BUN 23 H, Creatinine 1.21 H, Estim Creat Clear Calc 33.24, Est GFR (MDRD) Af Amer 56 L, Est GFR (MDRD) Non-Af 46 L, BUN/Creatinine Ratio 19.0, Glucose 101, Calcium 8.5 Radiography Diagnostic Testing: Radiology Impression Chest X-Ray 12/05/21 13:25 IMPRESSION: Prominence of the bronchovascular and interstitial lung markings is seen demonstrating no significant change in comparison to the prior study consistent with chronic interstitial lung disease, cannot rule out superimposed air trapping, congestion or infiltrates would recommend clinical correlation Electronically Signed: Tye Browning MD at 13:43 EDT , Rhythm Strip Rhythm Strip: A-fib Rate: 90 Ectopy: None Physical Exam Const alert, oriented x3 and no apparent distress General Appearance: cooperative HEENT normocephalic, head/scalp atraumatic, hearing grossly normal bilaterally and moist oral mucous membranes Eyes PERRL, EOMs intact bilaterally and conjunctivae normal Neck no lymphadenopathy, supple and no JVD Resp Resp Narrative: diminished breath sounds bibasally, no wheezes or crackles. On room air Cardio S1 normal heart sound, S2 normal heart sound and no murmurs Cardio Narrative: afib, rate controlled GI normal to inspection, nondistended, normoactive bowel sounds, soft to palpation, non-tender and non-distended Extremity normal to inspection, full ROM and no clubbing, cyanosis or edema Neuro oriented x3, CN's II-XII intact bilaterally and moves all extremities Sensorium / Orientation: awake and alert Motor Exam: strength 5/5 throughout Psych affect normal Assessment & Plan Assessment/Plan (1) Acute CHF: (2) Chest pain: PLAN: Plan #Acute on chronic heart failure with preserved EF * feeling much better today; SOB has improved * diuresed 1.4L of urine since admission * continue IV lasix * 2D echo done, read pending * monitor intake and output. Fluid restriction to 1500cc daily * 2D echo from January 2021 showed EF of 55-59% with stage 3 diastolic dysfunction and no regional wall motion abnormalities seen, and mild concentric LVH and 2+ mitral valve insufficiency * breathing treatment with bronchodilators * titrate oxygen to maintain sats >90% * troponins x 3 were negative * #CHest pain to rule out ACS * likely due to heart failure * troponins x 3 were negative * on PO aspirin * * #CAD s/p stents * has had 10 stents; had stenting of the posterior descending as well as right posterior lateral artery in March 2019 * on aspirin and statin as well as plavix * #Afib * rate controlled. On amiodarone and eliquis. 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
--- NOTE | 2021-12-06 12:31 | CHAPLAIN ---
Type of Pastoral Visit _x__ Initial Visit ___ Follow-up Visit ___ On-call Visit ___ General Patient Visit ___ Spiritual Assessment ___ Family Conference ___ Bereavement ___ Rapid Response ___ Code Blue ___ Other (describe below) Pastoral Care Referral From _x__ Patient ___ Family ___ Nurse ___ Physician ___ Fuel Cell Binder ___ Cytology Teacher ___ Other (describe below) Sacrament/Intervention _x__ Active listening ___ Anointing ___ Adventist ___ Bereavement ___ Communion _x__ Ursula exploration ___ _x__ Life review _x__ Prayer ___ Reconciliation ___ Sacrament of Sick _x__ Supportive presence ___ Wedding ___ Other (describe below) Pastoral Comments patient is open to talk about her loss of daughter and granddaughter while now responsible for raising her grandson; pt gives some life review and discussion about how she susana and finds her peace; pt looks first to her spiritual resources and ursula; pt welcomes presence and prayer for spiritual care
[2021-12-06] MEDS: Gabapentin 300 MG Capsule PO ×2 (12:45→17:58)
[2021-12-06] MEDS: traZODone 100 MG Tablet 150 MG PO (21:32)
[2021-12-06] MEDS: Atorvastatin Calcium 40 MG Tablet PO (21:32)
[2021-12-06] MEDS: Gabapentin 300 MG Capsule 600 MG PO (21:33)
[2021-12-07] VITALS (8 sets, daily range): BP systolic 117–129; BP diastolic 67–69; PULSE 76–105; RESP 16; TEMP 36.5–36.6; O2SAT 94–95
[2021-12-07] MEDS: busPIRone 5 MG Tablet 10 MG PO (06:18)
[2021-12-07] MEDS: LORazepam 1 MG Tablet PO (06:18)
[2021-12-07 06:28] LABS: Absolute Lymphocyte Count 0.92 X10^3/uL (0.83-4.51); Absolute Neutrophil Count 3.9 X10^3/uL (2.0-7.7); Basophil# 0.03 X10^3/uL; Basophil% 0.5 % (0-1); Eosinophil# 0.17 X10^3/uL; Eosinophils% 3.1 % (0-5); Hematocrit 34.6 % (37-47); Hemoglobin 11.7 g/dL (12.0-15.0); Lymphocyte # 0.92 X10^3/ul (0.83-4.51); Lymphocyte % 16.8 % (19-41); Mean Corp Hgb Conc 33.8 g/dL (32-36); Mean Corpuscular Hgb 31.5 pg (27.0-32.0); Mean Corpuscular Volume 93.3 fL (81-99); Mean Platelet Vol. 10.5 fl (6.2-12.0); Monocyte# 0.44 X10^3/uL; NRBC Flagged by Analyzer 0 % (0-5); Neutrophil % 71.2 % (47-70); Platelet Count 165 K/mm3 (150-450); RBC Distribution Width CV 13.8 % (11.6-14.6); RBC Distribution Width SD 46.5 fl (35.1-43.9); Red Blood Count 3.71 M/mm3 (4.2-5.4); White Blood Count 5.5 K/mm3 (4.4-11.0)
[2021-12-07 06:55] LABS: Anion Gap 7 (5-15); BUN 25 mg/dL (7-18); BUN/Creat Ratio 19.2 RATIO (10-20); Calcium,Total 8.7 mg/dL (8.5-10.1); Chloride 106 mmol/L (98-107); EST Glomerular Filtration Rate 43 mL/min (>60); Est Glom Filt Rate - Afr Amer 52 mL/min (>60); Estimated Creatinine Clearance 30.94 ml/min; Glucose 97 mg/dL (74-106); Potassium 3.4 mmol/L (3.5-5.1); Sodium Level 143 mmol/L (136-145)
[2021-12-07] MEDS: Potassium Chloride Oral Tablet 20 MEQ PO (08:54)
[2021-12-07] MEDS: Ferrous Sulfate 325 MG Tablet PO (08:54)
[2021-12-07] MEDS: Calcium Carb/Vitamin D 1 TABLET Tablet PO (08:54)
[2021-12-07] MEDS: APIXABAN 5 MG TABLET PO (10:01)
[2021-12-07] MEDS: Ascorbic Acid 500 MG Tablet 1000 MG PO (10:01)
[2021-12-07] MEDS: dilTIAZem CD 240 MG Capsule PO (10:01)
[2021-12-07] MEDS: Amiodarone 200 MG Tablet PO (10:02)
[2021-12-07] MEDS: Vitamin E 400 UNITS Capsule PO (10:02)
[2021-12-07] MEDS: DULoxetine Hcl 30 MG Capsule PO (10:02)
[2021-12-07] MEDS: Dicyclomine 10 MG Capsule PO (10:02)
[2021-12-07] MEDS: Isosorbide Mononitrate 60 MG Tablet PO (10:02)
[2021-12-07] MEDS: Pantoprazole Sodium 40 MG Tablet PO (10:02)
[2021-12-07] MEDS: Metoprolol Tartrate 100 MG Tablet PO (10:03)
[2021-12-07] MEDS: Furosemide 40 MG Tablet PO (10:03)
[2021-12-07] MEDS: Clopidogrel Bisulfate 75 MG Tablet PO (10:08)
--- NOTE | 2021-12-07 10:29 | DS.PCM_ITS ---
Providers Date of Admission: 12/05/21 Date of Discharge: 12/07/21 Primary Care Physician: Dr. Cem Jewell MD Reason For Visit: ACUTE CHF, CHEST PAIN, AFIB, HYPOXEMIA Diagnosis Discharge Diagnosis (1) Acute CHF: Status: Acute Code(s): I50.9 - Heart failure, unspecified (2) Chest pain: Status: Acute Code(s): R07.9 - Chest pain, unspecified Plan #Acute on chronic heart failure with preserved EF * admit to pcu * start diuresis with IV lasix 40mg bid * monitor intake and output. Fluid restriction to 1500cc daily * 2D echo from January 2021 showed EF of 55-59% with stage 3 diastolic dysfunction and no regional wall motion abnormalities seen, and mild concentric LVH and 2+ mitral valve insufficiency * breathing treatment with bronchodilators * titrate oxygen to maintain sats >90% * order 2D echo * cycle troponins * #CHest pain to rule out ACS * may be due to heart failure * initial troponin negative * EKG showed no acute st changes * cycle troponins * PO aspirin * #CAD s/p stents * has had 10 stents; had stenting of the posterior descending as well as right posterior lateral artery in March 2019 * on aspirin and statin as well as plavix * #Afib * rate controlled. On amiodarone and eliquis. 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 Patient elects to be full code. * Total [id number] time 16 minutes. Medications at Discharge Home Medications albuterol sulfate 90 mcg/actuation aerosol inhaler 1 - 2 puff inhalation Q4H PRN PRN Dyspnea, wheezing ##1 07/06/20 nitroglycerin 0.4 mg sublingual tablet (Nitrostat) 0.4 mg sublingual Q5M PRN Chest Pain 11/24/20 trazodone 150 mg tablet 150 mg PO QHS sleep 11/24/20 pantoprazole 40 mg tablet,delayed release 40 mg PO DAILY #30 tabs 11/25/20 atorvastatin 40 mg tablet 40 mg PO DAILY cholesterol 12/07/20 ferrous sulfate 325 mg (65 mg iron) tablet 325 mg PO BID supplement 02/11/21 buspirone 10 mg tablet 10 mg PO TID 02/22/21 calcium carbonate 600 mg-vitamin D3 12.5 mcg (500 unit) capsule (Calcium 600 with Vitamin D3) 1 cap PO DAILY 02/22/21 fluticasone 500 mcg-salmeterol 50 mcg/dose blistr powdr for inhalation (Wixela Inhub) 1 inh inhalation BID breathing #60 ea 05/15/21 isosorbide mononitrate 60 mg tablet,extended release 24 hr 60 mg PO DAILY HEART #90 tabs 05/28/21 diltiazem HCl 240 mg capsule,extended release 24 hr 240 mg PO DAILY #30 caps 06/11/21 amiodarone 200 mg tablet 200 mg PO DAILY #90 tabs 07/23/21 apixaban 5 mg tablet (Eliquis) 5 mg PO BID #60 tabs 08/02/21 ascorbic acid (vitamin C) 1,000 mg tablet (Vitamin C) 1,000 mg PO DAILY supplement 12/05/21 clopidogrel 75 mg tablet 75 mg PO DAILY antiplatelet 12/05/21 dicyclomine 10 mg capsule 10 mg PO 4X/DAY ibs 12/05/21 duloxetine 30 mg capsule,delayed release 30 mg PO DAILY 12/05/21 gabapentin 300 mg capsule 300 - 600 mg PO TID 12/05/21 lorazepam 1 mg tablet 1 mg PO TID PRN Anxiety 12/05/21 metoprolol tartrate 100 mg tablet 100 mg PO BID HEART 12/05/21 potassium chloride 20 mEq tablet,extended release 20 meq PO BID supplement 12/05/21 vitamin E (dl, acetate) 45 mg (100 unit) capsule 45 mg PO DAILY supplement 12/05/21 apixaban 5 mg tablet (Eliquis) 5 mg PO BID Check with primary doctor 12/06/21 duloxetine 60 mg capsule,delayed release 60 mg PO DAILY Check with primary doctor 12/06/21 furosemide 40 mg tablet 40 mg PO BID diuretic #60 tabs 12/07/21 Hospital Course Operations None Procedures 2-D Echocardiogram Summary of Care Provided Minutes Spent on Discharge: 45 Hospital Course: CURLY MORALES, is a 71 F with a PMH as outlined who presents via the ED on 12/05/2021 with a complaint of chest pain. It had been episodic since morning of admission, and was described as pressure like, with no aggravating or relieving factors. She had associated shortness of breath and orthopnea and also complained of a cough which was productive of pinkish sputum. She denied any lower extremity edema, palpitations, dizziness, nausea or vomiting. Review of systems was otherwise negative. Vitals in the ED were BP of 141/81, LA of 86, RR of 14 adn temp of 97.8F. She was saturating at 93% on room air. CBC was unremarkable, and BMP showed Cr of 1.18, but was otherwise unremarkable. BNP was 1436.8. EKG showed afib. She was hypoxic on room air on admission at 86%. CXR showed prominence of hte bronchovascular and interstitial lung markings consistent with chronic interstitial lung disease, cannot rule out superimposed air trapping, congestion or infiltrates. She was admitted to be managed for acute on chronic heart failure. She was diuresed with IV lasix 40mg bid. Her shortness of breath resolved and she felt much better. 2D echo from January 2021 showed EF of 55- 60% with stage 3 diastolic dysfunction. Her symptoms resolved and she felt much better. Her shortness of breath resolved and she felt much better. 2D echo showed EF of 15-20%; the significant reduction in EF was discussed with cardiology and as patient's symptoms had resolved, she was to follow up with cardiology on outpatient basis within 1 week. Patient seen and examined prior to discharge. She felt much better and had no active complaints. Review of systems is otherwise negative. Labs and vitals reviewed. Home meds reviewed and reconciled. Physical Exam Const alert, oriented x3 and no apparent distress General Appearance: cooperative and comfortable Orientation / Consciousness: awake Exam Limitations: no limitations HEENT normocephalic, head/scalp atraumatic, hearing grossly normal bilaterally and moist oral mucous membranes Mouth: oral and palatal mucosa normal Eyes PERRL, EOMs intact bilaterally and conjunctivae normal Neck no lymphadenopathy, supple and no JVD Resp Resp Narrative: diminished breath sounds bibasally, no wheezes or crackles. On room air Cardio S1 normal heart sound, S2 normal heart sound and no murmurs Cardio Narrative: afib, rate controlled GI normal to inspection, nondistended, normoactive bowel sounds, soft to palpation, non-tender and non-distended Extremity normal to inspection, full ROM and no clubbing, cyanosis or edema Skin no rashes or lesions noted Neuro oriented x3, CN's II-XII intact bilaterally and moves all extremities Sensorium / Orientation: awake and alert Motor Exam: strength 5/5 throughout Psych affect normal Weight / BMI Weight Weight: 145 lb 15.136 oz Body Mass Index (BMI) 27.2 ABG / Lab / Microbiology Data Result Diagrams: 12/07/21 05:45 12/07/21 05:45 Laboratory: Laboratory Results - last 24 hr 12/07/21 05:45: WBC 5.5, RBC 3.71 L, Hgb 11.7 L, Hct 34.6 L, MCV 93.3, MCH 31.5, MCHC 33.8, RDW Std Deviation 46.5 H, RDW Coeff of Natalie 13.8, Plt Count 165, MPV 10.5, Immature Gran % (Auto) 0.400, Neut % (Auto) 71.2 H, Lymph % (Auto) 16.8 L, Whitman % (Auto) 8.0, Eos % (Auto) 3.1, Baso % (Auto) 0.5, Absolute Neuts (auto) 3.9, Absolute Lymphs (auto) 0.92, Nucleated RBC % 0 12/07/21 05:45: Sodium 143, Potassium 3.4 L, Chloride 106, Carbon Dioxide 30.0, Anion Gap 7, BUN 25 H, Creatinine 1.30 H, Estim Creat Clear Calc 30.94, Est GFR (MDRD) Af Amer 52 L, Est GFR (MDRD) Non-Af 43 L, BUN/Creatinine Ratio 19.2, Glucose 97, Calcium 8.7 Radiography Diagnostic Testing: Radiology Impression Echocardiogram 12/06/21 12:14 Interpretation Summary Mildly dilated left ventricle. Severe global left ventricular systolic dysfunction. The estimated ejection fraction is 15-20 %. Mild mitral annular calcification. Severe (4+) eccentric mitral valve insufficiency. Mild-Moderate (1-2+) aortic valve insufficiency. Mild (1+) eccentric pulmonic valve insufficiency. Ordering Physician: Anjana Santos Referring Physician: Cem Jewell Performed By: Laura Farah, HORACE, RVT D/C Instructions Discharge Diet: Low fat / Low cholesterol Weight Bearing Status: Weight bearing as tolerated Call your doctor if you observe: Fever of 101 or Higher, Shortness of breath, Dizziness, Swelling in the ankles, Chest pain and Increased palpitations (irregular heartbeat) Meaningful Use Info Meaningful Use Diagnoses (Choose all that apply): CHF CHF ARTURO/ARB ordered at discharge?: No Reason ARTURO/ARB not ordered?: Allergy Documented LVEF (%): 15 Discharge Plan Admission Admit Date/Time: 12/05/21 15:15 Primary Reason for Your Visit: acute on chronic HFrEF Attending Provider: Anjana Santos Primary Care Provider: Cem Jewell Consulting Providers: Jaime Treviño Instructions Patient Instructions: Heart Failure Discharge Orders/Prescriptions Prescriptions: Continued Eliquis 5 mg tablet 5 mg PO BID Qty: 60 3RF atorvastatin 40 mg tablet 40 mg PO DAILY buspirone 10 mg tablet 10 mg PO TID Label Comments: TAKE 1 TABLET BY MOUTH THREE TIMES DAILY calcium carbonate-vitamin D3 [Calcium 600 with Vitamin D3] 600 mg(1,500mg) - 500 unit capsule 1 cap PO DAILY duloxetine 60 mg Capsule,Delayed Release(Dr/Ec) 60 mg PO DAILY Eliquis 5 mg Tablet 5 mg PO BID nitroglycerin [Nitrostat] 0.4 mg Tablet, Sublingual 0.4 mg SUBLINGUAL Q5M PRN (Reason: Chest Pain) trazodone 150 mg Tablet 150 mg PO QHS pantoprazole 40 mg tablet,delayed release (DR/EC) 40 mg PO DAILY Qty: 30 1RF ferrous sulfate 325 mg (65 mg iron) Tablet 325 mg PO BID ascorbic acid (vitamin C) [Vitamin C] 1,000 mg tablet 1,000 mg PO DAILY gabapentin 300 mg capsule 300 - 600 mg PO TID Rx Instructions: 1 CAPSULE TWICE DAILY, 2 CAPSULES @ HS. lorazepam 1 mg tablet 1 mg PO TID PRN (Reason: Anxiety) Rx Instructions: TAKE 1 TABLET BY MOUTH THREE TIMES A DAY AND 1 TABLET TWICE A DAY NEEDED FOR ANXIETY/RESTLESSNESS (PALLIATIVE CARE) dicyclomine 10 mg capsule 10 mg PO 4X/DAY Label Comments: TAKE 1 CAPSULE BY MOUTH FOUR TIMES DAILY duloxetine 30 mg capsule,delayed release(DR/EC) 30 mg PO DAILY vitamin E (dl, acetate) 45 mg (100 unit) capsule 45 mg PO DAILY metoprolol tartrate 100 mg tablet 100 mg PO BID clopidogrel 75 mg tablet 75 mg PO DAILY potassium chloride 20 mEq tablet extended release 20 meq PO BID albuterol sulfate 90 mcg/actuation HFA aerosol inhaler 1 - 2 puff INHALATION Q4H PRN PRN (Reason: Dyspnea, wheezing) Qty: 1 6RF fluticasone propion-salmeterol [Wixela Inhub] 500-50 mcg/dose blister with device 1 inh INHALATION BID Qty: 60 6RF isosorbide mononitrate 60 mg tablet extended release 24 hr 60 mg PO DAILY Qty: 90 3RF diltiazem HCl 240 mg capsule,extended release 24hr 240 mg PO DAILY Qty: 30 11RF amiodarone 200 mg tablet 200 mg PO DAILY Qty: 90 3RF Changed furosemide 40 mg tablet 40 mg PO BID Qty: 60 1RF Referrals / Follow Up: Jaime Treviño MD [Med Staff - Active Staff] - Within 1 Week Cem Jewell MD [Primary Care Provider] - Within 2 Weeks Disposition Disposition (needs filled in before D/C Order can be placed): Home, Self Care Charges/Coding Visit Charges Inpatient E&M: 06851 [facility] Hosp
[2021-12-07] MEDS: Gabapentin 300 MG Capsule PO (11:17)
--- NOTE | 2021-12-07 12:00 | CASEMGMT ---
Per Donaldo at [facility], pt is active with them currently. Per therapy, no further therapy needed for discharge. Pt does not qualify for home oxygen at this time and states no further questions/concerns/needs. Barbara FALCON CM
== END 2021-12-07 13:56 | disposition home or self-care (01) | DRG 291 ==
LOC: ED 14:47 → PCU 15:19
PROVIDERS: Admitting Provider Student in an Organized Health Care Education/Training Program; Emergency Provider Emergency Medicine; PCP Family Medicine; Visit Provider Student in an Organized Health Care Education/Training Program
DX: I13.0 Hypertensive heart and chronic kidney disease with heart failure and stage 1 through stage 4 chronic kidney disease, or unspecified chronic kidney disease (principal); I50.33 Acute on chronic diastolic (congestive) heart failure; I48.19 Other persistent atrial fibrillation; N18.4 Chronic kidney disease, stage 4 (severe); I42.8 Other cardiomyopathies; I73.9 Peripheral vascular disease, unspecified; I71.4 Abdominal aortic aneurysm, without rupture; J44.9 Chronic obstructive pulmonary disease, unspecified; M06.9 Rheumatoid arthritis, unspecified; F41.9 Anxiety disorder, unspecified; K21.9 Gastro-esophageal reflux disease without esophagitis; K58.9 Irritable bowel syndrome, unspecified; G47.33 Obstructive sleep apnea (adult) (pediatric); I25.2 Old myocardial infarction; I25.10 Atherosclerotic heart disease of native coronary artery without angina pectoris; E78.5 Hyperlipidemia, unspecified; I34.0 Nonrheumatic mitral (valve) insufficiency; F32.A Depression, unspecified; Z86.16 Personal history of COVID-19; Z79.899 Other long term (current) drug therapy; Z79.01 Long term (current) use of anticoagulants; Z95.810 Presence of automatic (implantable) cardiac defibrillator; Z87.891 Personal history of nicotine dependence; R09.02 Hypoxemia; Z66 Do not resuscitate
CPT/HCPCS: 36415; 71046; 80048; 83880; 84484; 85025; 93005; 93306; 94002; 94003; 94640; 97162; 97166; 97802; 99285; A4216; J1940

== ENCOUNTER 2022-01-31 10:56 | Outpatient (CLI) | payer MEDICARE, SELFPAY ==
[2019-07-16 09:26] VITALS: BMI 29.5
[2022-01-31 12:16] LABS: Creatinine, Serum 1.54 mg/dL (0.55-1.02); EST Glomerular Filtration Rate 35 mL/min (>60); Est Glom Filt Rate - Afr Amer 43 mL/min (>60)
== END 2022-01-31 23:59 | disposition home or self-care (01) ==
LOC: LAB 10:59
PROVIDERS: PCP Internal Medicine; Referring Provider Surgery Trauma Surgery; Visit Provider Surgery Trauma Surgery
DX: I71.40 Abdominal aortic aneurysm, without rupture, unspecified (principal)
CPT/HCPCS: 36415; 82565

== ENCOUNTER → 2022-02-26 | Outpatient (CLI) | payer MEDICARE, MEDICAID, SELFPAY ==
[2019-07-16 09:26] VITALS: BMI 29.5
--- NOTE | 2022-02-26 08:44 | CT_ITS ---
STUDY: CTA ABDOMEN AND PELVIS WITH CONTRAST REASON FOR EXAM: Female, 72 years old. Abdominal pain and anemia, AAA RADIATION DOSAGE (If Supplied By Facility): CTDIvol = ( 30.32 ) mGy, DLP = ( 480.08 ) mGycm TECHNIQUE: Transaxial images were obtained from the dome of the diaphragm to the symphysis pubis without oral contrast. IV 100mL Isovue-300 was administered. Sagittal and coronal images were reconstructed. Individualized dose optimization techniques were used for this CT. COMPARISON: Comparison is made with prior examination of 11/24/2020. FINDINGS: Mild increased linear markings at the lung bases suggestive of bibasilar scarring. A dual-chamber pacemaker is seen. There is coronary artery calcification. Mild hepatomegaly. Normal gallbladder and extrahepatic biliary system. There is moderate splenomegaly. Normal pancreas. Normal bilateral adrenal glands. There is a 2.1 cm cyst in the posterolateral aspect of the right kidney. Mild atrophy of the left kidney. Normal visualized stomach. Normal small intestine. There are multiple colonic diverticula consistent with diverticulosis. The appendix is visualized and appears normal. There is evidence of a fusiform infrarenal abdominal aortic aneurysm with a transverse dimension of 5 cm and AP dimension of 4.9 cm. There is thrombus within the aneurysm. This extends down to the aortic bifurcation with a mild dilatation of the proximal common iliac arteries. The right common iliac artery measures 1.3 cm. The proximal portion of the left common iliac artery measures 1.4 cm. Normal inferior vena cava. Normal retroperitoneum. Normal urinary bladder. There is absence of the uterus consistent with a prior hysterectomy. Normal abdominal wall. There are diffuse degenerative changes of the visualized lumbar spine. CT/CT ANGIO ABD&PEL W/O&W/DYE IMPRESSION: Fusiform infrarenal abdominal aortic aneurysm with a transverse dimension of 5 cm. Thrombus is seen. Mild dilatation of the origin of the right and left common iliac arteries. Sigmoid diverticulosis. Stable right renal cyst. Mild hepatosplenomegaly. Electronically Signed: Brown Yanes MD at 9:45 EST ,
== END | disposition home or self-care (01) ==
PROVIDERS: PCP Internal Medicine; Referring Provider Surgery Trauma Surgery; Visit Provider Surgery Trauma Surgery
DX: I71.40 Abdominal aortic aneurysm, without rupture, unspecified (principal); Z95.0 Presence of cardiac pacemaker; R16.2 Hepatomegaly with splenomegaly, not elsewhere classified; K57.30 Diverticulosis of large intestine without perforation or abscess without bleeding; N28.1 Cyst of kidney, acquired; D64.9 Anemia, unspecified; I71.43 Infrarenal abdominal aortic aneurysm, without rupture
CPT/HCPCS: 74174; Q9967

== ENCOUNTER → 2022-03-30 | Outpatient (CLI) | payer MEDICARE, MEDICAID, SELFPAY ==
[2019-07-16 09:26] VITALS: BMI 29.5
[2022-03-30 14:24] LABS: Mucous, Urine 0 SEEN /hpf (<or=2+)
[2022-03-30 14:31] LABS: Color, Urine Yellow (Yellow); Glucose, Dipstick 250 mg/dl (Normal); Ketone-Dipstick Negative (Negative); Leukocyte Esterase-Dipstick 500 /ul (Negative); Nitrite-Dipstick Negative (Negative); Occult Blood-Urine 150 /ul (Negative); Protein-Dipstick 30 mg/dl (Negative); Specific Gravity, Urine 1.015 (1.002-1.030); Urine Bilirubin Dipstick Negative (Negative); Urine Clarity Clear (Clear); Urine Urobilinogen Normal (Normal)
[2022-03-30 14:42] LABS: Bacteria 1+ /hpf (None Seen); Red Blood Cells-Urine 10-25 SEEN /hpf (0-5); Squamous Epithelial Cells - UA 0-5 SEEN /hpf (5-10); White Blood Cells 25-50 SEEN /hpf (0-5)
== END | disposition home or self-care (01) ==
PROVIDERS: PCP Internal Medicine; Visit Provider Physician Assistant Surgical
DX: N39.0 Urinary tract infection, site not specified (principal)
CPT/HCPCS: 81001; 87086; 87088

== ENCOUNTER 2022-04-09 12:02 | Emergency (ER) | payer MEDICARE, SELFPAY ==
[2019-07-16 09:26] VITALS: BMI 29.5
[2022-04-09 12:03] VITALS: BP 139/85; PULSE 78; RESP 18; TEMP 36.4; O2SAT 99; BMI 23.8
--- NOTE | 2022-04-09 12:29 | CT_ITS ---
INDICATION: back pain/injury, fatigue, anticoagulated -- attn: spine, retroperitoneum EXAMINATION: CT ABDOMEN AND PELVIS WITH CONTRAST - CT Abdomen And Pelvis W/ Contrast Injection TECHNIQUE: Helically acquired images were obtained of the abdomen and pelvis following IV contrast. A radiation dose optimization technique was used for this scan. IV Contrast dosage and agent: 100 cc of Isovue-300 Oral contrast: None. COMPARISON: February 26, 2022 FINDINGS: LOWER CHEST: Lung bases are clear. There is cardiomegaly. There are coronary artery calcifications. LIVER: Homogeneous. No focal mass. GALLBLADDER AND BILIARY TREE: No calcified gallstones. No gallbladder distension or wall edema. No intra- or extrahepatic biliary ductal dilation. PANCREAS: No focal cystic or solid mass. SPLEEN: There is stable mild cardiomegaly. ADRENAL GLANDS: No nodules. KIDNEYS AND URETERS: Normal renal size and position. No hydronephrosis. There is a stable ill-defined low-attenuation focus involving the cortical medullary region of the upper pole of the right kidney involving the cortical medullary region. There is a stable right renal cyst. PERITONEUM: No ascites or free air. No other fluid collection. BOWEL: No evidence of acute appendicitis. No stomach or bowel distension. There are diverticula arising from the colon No focal inflammatory change. LYMPH NODES: No enlarged mesenteric or retroperitoneal lymph nodes. VESSELS: There is a stable fusiform infrarenal abdominal aortic aneurysm measuring up to 5.2 cm in the transverse dimension. There is a grossly stable mural thrombus. There are extensive vascular calcifications. There are stents within the common femoral arteries. With persistent incomplete opacification of the right. URINARY BLADDER: Unremarkable. REPRODUCTIVE ORGANS: No pelvic masses. ABDOMINAL WALL: No discrete abdominal or pelvic wall hernia. BONES: There are degenerative changes of the visualized thoracic and lumbar spine. There is a fracture of the left L2 transverse process. CT/Abdomen/Pelvis W IV Cont ONLY IMPRESSION: Stable fusiform infrarenal abdominal aortic aneurysm measuring up to 5.2 cm. Left L2 transverse process fracture. Indeterminate stable low-attenuation focus within the upper pole of the right kidney may be secondary to prior scarring however cannot entirely exclude an underlying neoplastic process, consider ultrasound or MRI for further characterization. Stable splenomegaly. Colonic diverticulosis. Degenerative changes of the visualized thoracic and lumbar spine. Electronically Signed: Kadi Tirado MD at 14:36 EST ,
--- NOTE | 2022-04-09 12:29 | RAD_ITS ---
INDICATION: pain, fall EXAMINATION/TECHNIQUE: X-RAY - XR Spine Thoracic 3 Views COMPARISON: CT dated February 26, 2022 FINDINGS: There is multilevel degenerative disc disease. No acute fracture nor dislocation is visualized. There are vascular calcifications. There is a cardiac pacer device in place. RAD/Thoracic Spine 3 Views IMPRESSION: Multilevel degenerative changes. Electronically Signed: Kadi Tirado MD at 14:19 EST ,
--- NOTE | 2022-04-09 12:29 | CT_ITS ---
INDICATION: fall/trauma EXAMINATION: CT BRAIN - CT Head or Brain W/O Contrast Injection TECHNIQUE: Multiple axial images were obtained of the head without intravenous contrast. A radiation dose optimization technique was used for this scan. IV Contrast dosage and agent: None. COMPARISON: May 23, 2021 FINDINGS: BRAIN PARENCHYMA: No intra- or extra-axial hemorrhage. No evidence of acute infarct. No intracranial mass or mass effect. There is preservation of the martines/white matter interface. Posterior fossa structures are unremarkable. CSF SPACES: Appropriate for age. No hydrocephalus. Basal cisterns are patent. CALVARIUM, SKULL BASE, PARANASAL SINUSES AND MASTOID AIR CELLS: There is partial opacification of the visualized left maxillary sinus consistent with a history of sinusitis. ORBITS: Both globes, extraocular muscles, optic nerves and retrobulbar fat appear unremarkable. CT/Brain/Head without Contrast IMPRESSION: No acute intracranial process. Electronically Signed: Kadi Tirado MD at 14:25 EST ,
--- NOTE | 2022-04-09 12:31 | EKG12_ITS ---
Test Reason : Blood Pressure : / mmHG Vent. Rate : 078 BPM Atrial Rate : 078 BPM P-R Int : 202 ms QRS Dur : 112 ms QT Int : 422 ms P-R-T Axes : 000 -03 250 degrees QTc Int : 481 ms Atrial flutter with controlled rate Septal infarct , age undetermined Marked ST abnormality, possible inferior subendocardial injury Marked ST abnormality, possible anterior subendocardial injury Abnormal ECG Reconfirmed by HUYEN JEAN-BAPTISTE, TAYLOR ([id number]), purchase request editor MAREN GRIMES ([id number]) on 04/11/2022 12:57:42 PM Referred By: BB Confirmed By:TAYLOR MATSON MD
--- NOTE | 2022-04-09 12:36 | ED.VIS.FALL ---
HPI HPI - Fall History of Present Illness Chief Complaint: Fall Informant: patient and PCP (Dr. Ayoub, prior to pt's arrival) Occured/Mechanism Occurred: Weeks (1) Narrative Narrative: Patient sent in by her PCP out of concern for a head injury, she fell 1 week ago and was just being seen today. She is on Eliquis because of a history of tachybradycardia syndrome, presumably associated with atrial fibrillation. She states she does not remember a lot about the fall but thinks she may have been getting off of the toilet when it happened. The next thing she remembers is the next day. She did not remember going to bed that evening that she fell. Since the last week when this occurred, she has been drowsy and tired but having no headaches, vomiting, focal neurologic complaints, just pain in her back that she apparently injured from the fall. She denies any other pain or injury. Her neck does not hurt. She denies any abdominal pain, hematuria, hematochezia, nausea or vomiting. Her grandson is with her, seems delayed/mentally challenged. He states that he was asleep when all of this happened, and agrees that she has been tired but otherwise the same as usual in the past week. Additionally, and a separate problem, patient has been having urinary symptoms for about the past month. She states her doctor put her on some medications that she thinks might have been an antibiotic but she does not remember which 1 it was, and it did not change anything and she is still having the symptoms. No true retention although sometimes she feels like she urinates some and she still needs to go, she denies any hematuria. [facility] Medical History AAA (abdominal aortic aneurysm) without rupture Acute on chronic combined systolic (congestive) and diastolic (congestive) heart failure Acute on chronic diastolic (congestive) heart failure Acute respiratory failure with hypoxia Acute upper GI bleed Anemia Anxiety and depression Atherosclerotic heart disease of [place] coronary artery without angina pectoris Atrial fibrillation with RVR Back contusion Bilateral carotid bruits Cancer Carpal tunnel syndrome, bilateral Chronic kidney disease, stage 4 (severe) Claudication in peripheral vascular disease Congestive heart failure (CHF) COPD (chronic obstructive pulmonary disease) COVID-19 (01/01/20) Delirium due to another medical condition Dyspnea on exertion Emphysema of lung Essential (primary) hypertension GERD (gastroesophageal reflux disease) HLD (hyperlipidemia) Hypokalemia IBS (irritable bowel syndrome) Injury of head and neck Kidney disease Melena Multinodular thyroid Nicotine dependence Non-ischemic cardiomyopathy Non-STEMI (non-ST elevated myocardial infarction) (03/19/19) Obesity BELLE (obstructive sleep apnea) PAD (peripheral artery disease) Peripheral vascular occlusive disease Persistent atrial fibrillation Pneumonia due to 2019 novel coronavirus (01/01/20) Rheumatic fever Rheumatoid arthritis Sepsis (01/01/20) Sinus pause Smoking greater than 30 pack years Tachy-erica syndrome Unstable angina pectoris due to coronary arteriosclerosis Wheezing Home Medications trazodone 150 mg tablet 150 mg PO QHS sleep 11/24/20 [History Last Taken 12/04/21] calcium carbonate 600 mg-vitamin D3 12.5 mcg (500 unit) capsule (Calcium 600 with Vitamin D3) 1 cap PO DAILY supplement 02/22/21 [History Last Taken 12/05/21] isosorbide mononitrate 60 mg tablet,extended release 24 hr 60 mg PO DAILY HEART #90 tabs 05/28/21 [Rx Last Taken 12/05/21] diltiazem HCl 240 mg capsule,extended release 24 hr 240 mg PO DAILY #30 caps 06/11/21 [Rx Last Taken 12/04/21] amiodarone 200 mg tablet 200 mg PO DAILY #90 tabs 07/23/21 [Rx Last Taken 12/05/21] ascorbic acid (vitamin C) 1,000 mg tablet (Vitamin C) 1,000 mg PO DAILY supplement 12/05/21 [History Last Taken 12/04/21] clopidogrel 75 mg tablet 75 mg PO DAILY antiplatelet 12/05/21 [History Last Taken 12/05/21] lorazepam 1 mg tablet 1 mg PO TID PRN Anxiety 12/05/21 [History Last Taken 12/05/21] metoprolol tartrate 100 mg tablet 100 mg PO BID HEART 12/05/21 [History Last Taken 12/05/21] potassium chloride 20 mEq tablet,extended release 20 meq PO BID supplement 12/05/21 [History Last Taken 12/04/21] vitamin E (dl, acetate) 45 mg (100 unit) capsule 45 mg PO DAILY supplement 12/05/21 [History Last Taken 12/04/21] apixaban 5 mg tablet (Eliquis) 5 mg PO BID blood thinner #180 tabs 12/26/21 [Rx Last Taken Unknown] nitroglycerin 0.4 mg sublingual tablet (Nitrostat) 0.4 mg sublingual Q5M PRN Chest Pain #25 tabs 02/18/22 [Rx Last Taken Unknown] buspirone 10 mg tablet 10 mg PO TID mental health #90 tabs 02/19/22 [Rx Last Taken Unknown] dapagliflozin 10 mg tablet (Farxiga) 10 mg PO DAILY #30 tabs 02/19/22 [Rx Last Taken Unknown] dicyclomine 10 mg capsule 10 mg PO 4X/DAY ibs #120 caps 02/19/22 [Rx Last Taken Unknown] duloxetine 30 mg capsule,delayed release 30 mg PO DAILY mental health #30 caps 02/19/22 [Rx Last Taken Unknown] duloxetine 60 mg capsule,delayed release 60 mg PO DAILY mental health #30 caps 02/19/22 [Rx Last Taken Unknown] ferrous sulfate 325 mg (65 mg iron) tablet 325 mg PO BID supplement #60 tabs 02/19/22 [Rx Last Taken Unknown] atorvastatin 40 mg tablet 40 mg PO DAILY cholesterol #90 tabs 03/13/22 [Rx Last Taken Unknown] furosemide 40 mg tablet 40 mg PO BID diuretic #60 tabs 03/13/22 [Rx Last Taken Unknown] gabapentin 300 mg capsule See Rx Instructions .Route .COMPLEX #90 caps 03/13/22 [Rx Last Taken Unknown] pantoprazole 40 mg tablet,delayed release 40 mg PO DAILY #90 tabs 03/13/22 [Rx Last Taken Unknown] albuterol sulfate 90 mcg/actuation aerosol inhaler 1 - 2 puff inhalation Q4H PRN PRN Dyspnea, wheezing ##1 04/04/22 [Rx Last Taken Unknown] fluticasone 500 mcg-salmeterol 50 mcg/dose blistr powdr for inhalation (Wixela Inhub) 1 inh inhalation BID breathing #60 ea 04/04/22 [Rx Last Taken Unknown] tiotropium bromide 2.5 mcg/actuation mist for inhalation (Spiriva Respimat) 2 puff inhalation DAILY #4 grams 04/04/22 [Rx Last Taken Unknown] cephalexin 500 mg capsule 500 mg PO TID #21 CAPSULES 04/09/22 [Rx Last Taken Unknown] hydrocodone-acetaminophen 5-325mg 5mg-325mg 1 tab PO Q6H PRN PRN Pain 4 days #15 TABLETS 04/09/22 [Rx Last Taken Unknown] Allergy/AdvReac Type Severity Reaction Status Date / Time lisinopril Allergy tongue Verified 04/09/22 12:05 swelling Family History Father Heart disease Hypertension Seizures Sister Hypertension Son CVA (cerebral vascular accident) Daughter Cancer stomach Other Family history of hypertension Surgical History Cataract extraction status History of angioplasty of peripheral vessel History of bilateral leg stents History of bunionectomy of right great toe History of cardioversion (07/18/20) History of colonoscopy (06/2018) History of coronary artery stent placement (03/18/19) History of left heart catheterization (11/25/19) History of permanent cardiac pacemaker placement (03/27/20) History of tonsillectomy Hx of APLL Hx of hysterectomy Status post left foot surgery Social History household members: other details: grandson housing: house 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al status: retired 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 Smoking Status: Former smoker quit date: 04/17/20 pack-years: 20 Electronic Cigarette Use: not used how long ago did patient quit smoking: May 2020 alcohol intake: never substance use type: does not use caffeine: No what type of physical activity do you participate in: none do you feel safe at home: Yes ROS ROS ED Constitutional Constitutional ED: Reports malaise and weakness; Denies chills or fever(s) Eyes Eyes: Denies change in vision or diplopia ENT ENT ED: Denies ear pain, epistaxis, facial pain or rhinorrhea Cardiovascular Cardiovascular: Denies chest pain or palpitations Respiratory/Chest Respiratory/Chest: Denies cough or dyspnea Gastrointestinal Gastrointestinal: Denies abdominal pain, diarrhea, melena, nausea or vomiting Genitourinary Genitourinary ED: Reports difficulty urinating, dysuria, urinary frequency and urinary urgency; Denies hematuria Musculoskeletal Musculoskeletal: Reports back pain; Denies extremity pain or neck pain Integumentary Denies abscess, Abrasions, laceration or rash Neurologic Neurologic: Denies confusion, headache(s), paresthesias or weakness EXAM Physical Exam Const Vital Signs: 04/09/22 12:03 04/09/22 12:26 04/09/22 15:23 Temperature 97.6 F L Temperature Source Temporal Pulse Rate 78 75 Respiratory Rate 18 15 Respiratory Effort Normal Respiratory Depth Normal Respiratory Pattern Normal Blood Pressure 139/85 H 141/78 H Blood Pressure Mean 103 99 Pulse Ox 99 98 Oxygen Delivery Method Room Air Room Air Positive well nourished and well developed General Appearance ED: well developed and NAD HEENT Reports TM's clear and nasal mucous membranes and turbinates normal HEENT Narrative: No dupree sign. There is a birthmark at the base of the occiput there is no tenderness or signs of injury. No signs of facial trauma no raccoon eyes. atraumatic Face and Sinus: Negative for facial tenderness Tympanic Membrane ED: Yes TM's clear Eyes PERRL and EOMs intact bilaterally Visual Acuity: other Other Details: no entrapment or pain with extraocular movements Neck full ROM and supple General: Negative for tenderness Chest Wall inspection of chest normal and palpation of chest normal Chest: symmetrical chest wall rise; Negative for crepitus or tenderness Resp normal respiratory effort and clear to auscultation bilaterally Percussion: other equal BS bilat Cardio no murmurs Rate: regular rate; Negative for tachycardic Rhythm: regular rhythm GI normal to inspection, nondistended, normoactive bowel sounds, soft to palpation and non-tender Back/Spine Back/Spine Narrative: Normal for range of motion without apparent difficulty, little discomfort in her lower back when she does. Despite this she is tender throughout the spine. To the left of midline in the lower thoracic/upper lumbar spine/back, there is a large purpuric/ecchymotic area around a linear almost rectangular area that almost appears to be a healing sutured wound. The patient states she has never had any surgery or lacerations or sutures in this area, and given that, it looks like something rectangular that struck her bluntly at this area. There is no sign of any infection or recent bleeding/scabbing. Cervical Spine: Negative for cervical spine tenderness Thoracic Spine / Upper Back: thoracic spinal tenderness Lumbar Spine / Lower Back: lumbar spinal tenderness Extremity normal to inspection and full ROM Extremity Narrative: Atraumatic all 4 extremities. General Extremety ED: Negative for tenderness Neuro oriented x3, CN's II-XII intact bilaterally, moves all extremities, no focal motor deficits and no sensory deficits noted Kishan Coma Scale: document GCS findings Spontaneous Obeys Commands Oriented 15 Sensorium / Orientation: awake and alert Psych mental status grossly normal and thought process normal Skin no wounds Lesions: no lesions Rashes: no rashes MDM MDM MDM Narrative Medical decision making narrative: Patient has large contusion and markings as if she hit something very solid and rectangular on her back. This could be magnified because she is on Eliquis, less likely it could be traffic workforce representative of something internal like a retroperitoneal hematoma although she does not have any true Serrano Trujillo or Henry sign. However given this I thought it was reasonable to obtain a CT of the area so I did the entire abdomen/pelvis to also evaluate the retroperitoneum in addition to the spine. I reviewed the CT images myself. She appears to have a fusiform AAA with clot. Luckily this is unchanged compared with her prior CT, and on further discussion with the patient, this is known and she has repair planned with vascular surgery. My interpretation of the CT agrees with that of the radiologist. She does appear to have a isolated L2 transverse process fracture which is consistent with the area where her clinical hematoma/contusion is. I do not think this is the only source of her pain but certainly contributing to it and probably will be the last place to get better. I think supportive care is reasonable here with Robinson which she was given here, CT of her head I reviewed as well and is negative. My interpretation of the CT agrees with that of the radiologist. I also obtain 2 view x-ray series of the thoracic spine which mitral rotation is negative for any acute, radiology was in agreement. Furthermore-her urinalysis shows indicators of infection although she does not have significant pyuria. She does have symptoms so I think putting her on an antibiotic is most reasonable. I reviewed an outpatient urinalysis and culture that was obtained 10 days ago, the urinalysis was suspicious for infection and the culture was essentially negative; I am sending another culture and putting her on cephalexin 3 times daily for a week. I attempted to touch base with her Dr. Ayoub for courtesy follow up but their office was already closed. Lab Data Attestation: I reviewed the patient's lab results. Labs: Laboratory Results - last 24 hr 04/09/22 04/09/22 04/09/22 12:40 12:40 13:45 WBC 6.3 RBC 4.14 L Hgb 12.4 Hct 38.3 MCV 92.5 MCH 30.0 MCHC 32.4 RDW Std Deviation 46.7 H RDW Coeff of Natalie 14.2 Plt Count 201 MPV 11.0 Immature Gran % (Auto) 0.500 Neut % (Auto) 78.2 H Lymph % (Auto) 12.5 L Starr % (Auto) 5.2 Eos % (Auto) 3.0 Baso % (Auto) 0.6 Absolute Neuts (auto) 4.9 Absolute Lymphs (auto) 0.79 L Nucleated RBC % 0 Sodium 142 Potassium 4.1 Chloride 106 Carbon Dioxide 31.0 Anion Gap 5 BUN 27 H Creatinine 1.43 H Estim Creat Clear Calc 27.71 Est GFR (MDRD) Af Amer 46 L Est GFR (MDRD) Non-Af 38 L BUN/Creatinine Ratio 18.9 Glucose 104 Calcium 8.7 Troponin I High Sens 10 Urine Color Yellow Urine Clarity Clear Urine pH 7.0 Ur Specific [place] 1.010 Urine Protein 15 H Urine Glucose (UA) 250 H Urine Ketones Negative Urine Occult Blood Negative Urine Nitrite Positive H Urine Bilirubin Negative Urine Urobilinogen Normal Ur Leukocyte Esterase 500 H Urine RBC 0 SEEN Urine WBC 0 SEEN Ur Squamous Epith Cells 0-5 SEEN Urine Bacteria 0 SEEN Urine Mucus 0 SEEN Radiography Diagnostic Testing: Clinical Impression(s) from Imaging Studies Abdomen/Pelvis CT 04/09/22 12:29 IMPRESSION: Stable fusiform infrarenal abdominal aortic aneurysm measuring up to 5.2 cm. Left L2 transverse process fracture. Indeterminate stable low-attenuation focus within the upper pole of the right kidney may be secondary to prior scarring however cannot entirely exclude an underlying neoplastic process, consider ultrasound or MRI for further characterization. Stable splenomegaly. Colonic diverticulosis. Degenerative changes of the visualized thoracic and lumbar spine. Electronically Signed: Kadi Tirado MD at 14:36 EST , Brain CT 04/09/22 12:29 IMPRESSION: No acute intracranial process. Electronically Signed: Kadi Tirado MD at 14:25 EST , Thoracic Spine X-Ray 04/09/22 12:29 IMPRESSION: Multilevel degenerative changes. Electronically Signed: Kadi Tirado MD at 14:19 EST , Rhythm Strip Rhythm Strip: Sinus Rhythm Rate: 80 Ectopy: None EKG Initial EKG: Attestation: I personally reviewed and interpreted this EKG as follows: Interpretation: Sinus Rhythm, No Acute Injury Pattern and Inverted T-Waves (inf; V3-6 w/ associated STD 0-1mm) Comments: no ST elevation Discharge Plan Triage Chief Complaint: Fall ED Provider: Federico Jimenez Dx/Rx/DC Orders Clinical Impression: Lumbar transverse process fracture, Back contusion, Syncope and collapse, Acute UTI, Anticoagulated Instructions: ED Cystitis Female Adult, ED Transverse Process Fracture Prescriptions: New hydrocodone-acetaminophen [hydrocodone-acetaminophen] 5-325 mg tablet 1 tab PO Q6H PRN PRN (Reason: Pain) 4 Days Qty: 15 0RF cephalexin [cephalexin] 500 mg capsule 500 mg PO TID Qty: 21 0RF No Action calcium carbonate-vitamin D3 [Calcium 600 with Vitamin D3] 600 mg(1,500mg) -500 unit capsule 1 cap PO DAILY albuterol sulfate 90 mcg/actuation HFA aerosol inhaler 1 - 2 puff INHALATION Q4H PRN PRN (Reason: Dyspnea, wheezing) Qty: 1 6RF fluticasone propion-salmeterol [Wixela Inhub] 500-50 mcg/dose blister with device 1 inh INHALATION BID Qty: 60 6RF Spiriva Respimat 2.5 mcg/actuation mist 2 puff inhalation DAILY Qty: 4 6RF trazodone 150 mg Tablet 150 mg PO QHS ascorbic acid (vitamin C) [Vitamin C] 1,000 mg tablet 1,000 mg PO DAILY lorazepam 1 mg tablet 1 mg PO TID PRN (Reason: Anxiety) Rx Instructions: TAKE 1 TABLET BY MOUTH THREE TIMES A DAY AND 1 TABLET TWICE A DAY NEEDED FOR ANXIETY/RESTLESSNESS (PALLIATIVE CARE) vitamin E (dl, acetate) 45 mg (100 unit) capsule 45 mg PO DAILY metoprolol tartrate 100 mg tablet 100 mg PO BID clopidogrel 75 mg tablet 75 mg PO DAILY potassium chloride 20 mEq tablet extended release 20 meq PO BID isosorbide mononitrate 60 mg tablet extended release 24 hr 60 mg PO DAILY Qty: 90 3RF diltiazem HCl 240 mg capsule,extended release 24hr 240 mg PO DAILY Qty: 30 11RF amiodarone 200 mg tablet 200 mg PO DAILY Qty: 90 3RF Eliquis 5 mg tablet 5 mg PO BID Qty: 180 3RF nitroglycerin [Nitrostat] 0.4 mg tablet, sublingual 0.4 mg SUBLINGUAL Q5M PRN (Reason: Chest Pain) Qty: 25 3RF buspirone 10 mg tablet 10 mg PO TID Qty: 90 5RF Farxiga 10 mg tablet 10 mg PO DAILY Qty: 30 5RF dicyclomine 10 mg capsule 10 mg PO 4X/DAY Qty: 120 5RF duloxetine 30 mg capsule,delayed release(DR/EC) 30 mg PO DAILY Qty: 30 5RF duloxetine 60 mg capsule,delayed release(DR/EC) 60 mg PO DAILY Qty: 30 5RF ferrous sulfate 325 mg (65 mg iron) tablet 325 mg PO BID Qty: 60 5RF gabapentin 300 mg capsule See Rx Instructions .ROUTE .COMPLEX Qty: 90 0RF Dose Instruction: TAKE 1 CAPSULE BY MOUTH IN THE MORNING and TAKE 2 CAPSULES BY MOUTH AT BEDTIME Rx Instructions: TAKE 1 CAPSULE BY MOUTH IN THE MORNING and TAKE 2 CAPSULES BY MOUTH AT BEDTIME atorvastatin 40 mg tablet 40 mg PO DAILY Qty: 90 1RF pantoprazole 40 mg tablet,delayed release (DR/EC) 40 mg PO DAILY Qty: 90 1RF furosemide 40 mg tablet 40 mg PO BID Qty: 60 6RF Primary Care Provider: Opal Ayoub Referrals: Opal Ayoub MD [Primary Care Provider] - 1 Week if not improving Disposition Disposition: Home, Self Care
[2022-04-09 13:21] LABS: Absolute Lymphocyte Count 0.79 X10^3/uL (0.83-4.51); Absolute Neutrophil Count 4.9 X10^3/uL (2.0-7.7); Basophil# 0.04 X10^3/uL; Basophil% 0.6 % (0-1); Eosinophil# 0.19 X10^3/uL; Hematocrit 38.3 % (37-47); Hemoglobin 12.4 g/dL (12.0-15.0); Lymphocyte # 0.79 X10^3/ul (0.83-4.51); Lymphocyte % 12.5 % (19-41); Mean Corp Hgb Conc 32.4 g/dL (32-36); Mean Corpuscular Volume 92.5 fL (81-99); Monocyte# 0.33 X10^3/uL; Monocyte% 5.2 % (0-10); NRBC Flagged by Analyzer 0 % (0-5); Neutrophil # 4.92 X10^3/uL (2.7-7.7); Neutrophil % 78.2 % (47-70); Platelet Count 201 K/mm3 (150-450); RBC Distribution Width CV 14.2 % (11.6-14.6); RBC Distribution Width SD 46.7 fl (35.1-43.9); Red Blood Count 4.14 M/mm3 (4.2-5.4); White Blood Count 6.3 K/mm3 (4.4-11.0)
[2022-04-09 13:31] LABS: Anion Gap 5 (5-15); BUN 27 mg/dL (7-18); BUN/Creat Ratio 18.9 RATIO (10-20); Calcium,Total 8.7 mg/dL (8.5-10.1); Chloride 106 mmol/L (98-107); Creatinine, Serum 1.43 mg/dL (0.55-1.02); EST Glomerular Filtration Rate 38 mL/min (>60); Est Glom Filt Rate - Afr Amer 46 mL/min (>60); Estimated Creatinine Clearance 27.71 ml/min; Glucose 104 mg/dL (74-106); Potassium 4.1 mmol/L (3.5-5.1); Sodium Level 142 mmol/L (136-145); Troponin-I HS 10 pg/mL (3.0-54.0)
[2022-04-09 13:50] LABS: Bacteria 0 SEEN /hpf (None Seen); Mucous, Urine 0 SEEN /hpf (<or=2+); Red Blood Cells-Urine 0 SEEN /hpf (0-5); White Blood Cells 0 SEEN /hpf (0-5)
[2022-04-09 14:06] LABS: Color, Urine Yellow (Yellow); Glucose, Dipstick 250 mg/dl (Normal); Ketone-Dipstick Negative (Negative); Leukocyte Esterase-Dipstick 500 /ul (Negative); Nitrite-Dipstick Positive (Negative); Occult Blood-Urine Negative /ul (Negative); Protein-Dipstick 15 mg/dl (Negative); Urine Bilirubin Dipstick Negative (Negative); Urine Clarity Clear (Clear); Urine Urobilinogen Normal (Normal)
[2022-04-09 14:26] LABS: Squamous Epithelial Cells - UA 0-5 SEEN /hpf (5-10)
[2022-04-09 15:23] VITALS: BP 141/78; PULSE 75; RESP 15; O2SAT 98
== END 2022-04-09 16:45 | disposition home or self-care (01) ==
PROVIDERS: Emergency Provider Emergency Medicine; PCP Internal Medicine; Visit Provider Emergency Medicine
DX: S32.028A Other fracture of second lumbar vertebra, initial encounter for closed fracture (principal); M06.9 Rheumatoid arthritis, unspecified; J43.9 Emphysema, unspecified; I50.9 Heart failure, unspecified; I13.0 Hypertensive heart and chronic kidney disease with heart failure and stage 1 through stage 4 chronic kidney disease, or unspecified chronic kidney disease; N18.4 Chronic kidney disease, stage 4 (severe); I73.9 Peripheral vascular disease, unspecified; I49.5 Sick sinus syndrome; S20.229A Contusion of unspecified back wall of thorax, initial encounter; N39.0 Urinary tract infection, site not specified; I25.10 Atherosclerotic heart disease of native coronary artery without angina pectoris; E78.5 Hyperlipidemia, unspecified; R55 Syncope and collapse; F41.9 Anxiety disorder, unspecified; F32.A Depression, unspecified; K21.9 Gastro-esophageal reflux disease without esophagitis; K58.9 Irritable bowel syndrome, unspecified; I25.2 Old myocardial infarction; Z87.891 Personal history of nicotine dependence; W19.XXXA Unspecified fall, initial encounter; Z79.01 Long term (current) use of anticoagulants; Z95.5 Presence of coronary angioplasty implant and graft; Z95.0 Presence of cardiac pacemaker; Z79.899 Other long term (current) drug therapy; Z86.16 Personal history of COVID-19
CPT/HCPCS: 70450; 72072; 74177; 80048; 81001; 84484; 85025; 87086; 93005; 99284; Q9967

== ENCOUNTER 2022-04-23 12:38 | Emergency (ER) | payer MEDICARE, SELFPAY ==
[2019-07-16 09:26] VITALS: BMI 29.5
[2022-04-23] VITALS (8 sets, daily range): BP systolic 115–130; BP diastolic 67–95; PULSE 78–178; RESP 12–18; TEMP 35.8; O2SAT 96–98; BMI 25.9
--- NOTE | 2022-04-23 12:45 | EKG12_ITS ---
Test Reason : REPEAT Blood Pressure : / mmHG Vent. Rate : 083 BPM Atrial Rate : 083 BPM P-R Int : 170 ms QRS Dur : 116 ms QT Int : 444 ms P-R-T Axes : 000 -06 220 degrees QTc Int : 521 ms Normal sinus rhythm Left ventricular hypertrophy with QRS widening and repolarization abnormality ( Orange product ) Prolonged QT Abnormal ECG Confirmed by HUYEN JEAN-BAPTISTE, TAYLOR ([id number]), editor department MAREN GRIMES ([id number]) on 04/25/2022 11:37:23 AM Referred By: WEI Confirmed By:TAYLOR MATSON MD
--- NOTE | 2022-04-23 13:07 | EKG12_ITS ---
Test Reason : Blood Pressure : / mmHG Vent. Rate : 117 BPM Atrial Rate : 117 BPM P-R Int : 000 ms QRS Dur : 106 ms QT Int : 274 ms P-R-T Axes : 000 -12 225 degrees QTc Int : 382 ms Atrial fibrillation Minimal voltage criteria for LVH, may be normal variant ( Hammond product ) Marked ST abnormality, possible inferior subendocardial injury Abnormal ECG Confirmed by HUYEN JEAN-BAPTISTE, TAYLOR ([id number]), online editor MAREN GRIMES ([id number]) on 04/25/2022 11:37:42 AM Referred By: DADA Confirmed By:TAYLOR MATSON MD
[2022-04-23 13:11] LABS: Absolute Lymphocyte Count 0.88 X10^3/uL (0.83-4.51); Absolute Neutrophil Count 6.8 X10^3/uL (2.0-7.7); Basophil# 0.04 X10^3/uL; Basophil% 0.5 % (0-1); Eosinophil# 0.13 X10^3/uL; Eosinophils% 1.5 % (0-5); Hematocrit 43.2 % (37-47); Hemoglobin 14.5 g/dL (12.0-15.0); Lymphocyte # 0.88 X10^3/ul (0.83-4.51); Lymphocyte % 10.3 % (19-41); Mean Corp Hgb Conc 33.6 g/dL (32-36); Mean Corpuscular Hgb 30.8 pg (27.0-32.0); Mean Corpuscular Volume 91.7 fL (81-99); Mean Platelet Vol. 10.2 fl (6.2-12.0); Monocyte# 0.61 X10^3/uL; Monocyte% 7.2 % (0-10); NRBC Flagged by Analyzer 0 % (0-5); Neutrophil # 6.83 X10^3/uL (2.7-7.7); Neutrophil % 80.3 % (47-70); Platelet Count 261 K/mm3 (150-450); RBC Distribution Width CV 14.1 % (11.6-14.6); RBC Distribution Width SD 47.3 fl (35.1-43.9); Red Blood Count 4.71 M/mm3 (4.2-5.4); White Blood Count 8.5 K/mm3 (4.4-11.0)
[2022-04-23] MEDS: 0.9% Normal Saline 1,000 ML 150 ML IV (13:26)
[2022-04-23 13:30] LABS: Anion Gap 8 (5-15); BUN 21 mg/dL (7-18); BUN/Creat Ratio 13.5 RATIO (10-20); Calcium,Total 9.6 mg/dL (8.5-10.1); Chloride 102 mmol/L (98-107); Creatinine, Serum 1.55 mg/dL (0.55-1.02); EST Glomerular Filtration Rate 35 mL/min (>60); Est Glom Filt Rate - Afr Amer 42 mL/min (>60); Estimated Creatinine Clearance 25.57 ml/min; Glucose 140 mg/dL (74-106); Potassium 3.9 mmol/L (3.5-5.1); Sodium Level 141 mmol/L (136-145); Troponin-I HS 19 pg/mL (3.0-54.0)
--- NOTE | 2022-04-23 13:40 | RAD_ITS ---
EXAM: XR CHEST, 2 VIEWS CLINICAL INDICATION: Chest pain. TECHNIQUE: Frontal and lateral views of the chest. This report was created using [employer] report generation technology. COMPARISON: 12/05/2021. FINDINGS: LUNGS AND PLEURAL SPACES: Unremarkable. No consolidation or edema. No pneumothorax. No effusion. HEART: Mild cardiomegaly is unchanged. MEDIASTINUM: Central airways and mediastinal contour are unremarkable. BONES/JOINTS: Unremarkable. SOFT TISSUES: Unremarkable. TUBES, LINES AND DEVICES: Dual-chamber pacing lead tips remain in the right atrium and right ventricle. RAD/Chest PA and Lateral IMPRESSION: No acute findings in the chest and unchanged when compared to 12/05/2021. Electronically Signed: Tao Jimenez MD at 14:05 EST ,
--- NOTE | 2022-04-23 13:46 | ED.VIS.CHEST ---
HPI History of Present Illness Chief Complaint: Palpitations Informant: patient Narrative Narrative: Patient is a 72 year old female with history of coronary artery disease status post stenting, heart failure with reduced ejection fraction, tachybradycardia syndrome, atrial fibrillation, hypertension, hyperlipidemia, COPD, tobacco use, CKD 4 and AAA presenting with palpitation, chest discomfort and generalized malaise. Patient states she felt fine this morning and got her grandson to school. She then felt like her heart was racing and started to feel lightheaded. States he had symptoms or couple hours before coming into the ER. She reports a history of atrial fibrillation. She notes that she was taken off of her metoprolol about 2 weeks ago but does not recall why. She states has been compliant with her Eliquis and has not missed any doses. She states she is felt like this before but it always resolved on its own so she never had it evaluated. No other complaints at this time. 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 Treviño. She did she is having discomfort rating up into her bilateral neck/jaw. Denies any difficulty breathing. No other complaints at this time [facility] Medical History AAA (abdominal aortic aneurysm) without rupture Acute on chronic combined systolic (congestive) and diastolic (congestive) heart failure Acute on chronic diastolic (congestive) heart failure Acute respiratory failure with hypoxia Acute upper GI bleed Anemia Anxiety and depression Atherosclerotic heart disease of [place] coronary artery without angina pectoris Atrial fibrillation with RVR Back contusion Bilateral carotid bruits Cancer Carpal tunnel syndrome, bilateral Chronic kidney disease, stage 4 (severe) Claudication in peripheral vascular disease Congestive heart failure (CHF) COPD (chronic obstructive pulmonary disease) COVID-19 (01/01/20) Delirium due to another medical condition Dyspnea on exertion Emphysema of lung Essential (primary) hypertension GERD (gastroesophageal reflux disease) HLD (hyperlipidemia) Hypokalemia IBS (irritable bowel syndrome) Injury of head and neck Kidney disease Melena Multinodular thyroid Nicotine dependence Non-ischemic cardiomyopathy Non-STEMI (non-ST elevated myocardial infarction) (03/19/19) Obesity BELLE (obstructive sleep apnea) PAD (peripheral artery disease) Peripheral vascular occlusive disease Persistent atrial fibrillation Pneumonia due to 2019 novel coronavirus (01/01/20) Rheumatic fever Rheumatoid arthritis Sepsis (01/01/20) Sinus pause Smoking greater than 30 pack years Tachy-erica syndrome Unstable angina pectoris due to coronary arteriosclerosis Wheezing Home Medications trazodone 150 mg tablet 150 mg PO QHS sleep 11/24/20 [History Last Taken 12/04/21] calcium carbonate 600 mg-vitamin D3 12.5 mcg (500 unit) capsule (Calcium 600 with Vitamin D3) 1 cap PO DAILY supplement 02/22/21 [History Last Taken 12/05/21] isosorbide mononitrate 60 mg tablet,extended release 24 hr 60 mg PO DAILY HEART #90 tabs 05/28/21 [Rx Last Taken 12/05/21] amiodarone 200 mg tablet 200 mg PO DAILY #90 tabs 07/23/21 [Rx Last Taken 12/05/21] ascorbic acid (vitamin C) 1,000 mg tablet (Vitamin C) 1,000 mg PO DAILY supplement 12/05/21 [History Last Taken 12/04/21] clopidogrel 75 mg tablet 75 mg PO DAILY antiplatelet 12/05/21 [History Last Taken 12/05/21] lorazepam 1 mg tablet 1 mg PO TID PRN Anxiety 12/05/21 [History Last Taken 12/05/21] potassium chloride 20 mEq tablet,extended release 20 meq PO BID supplement 12/05/21 [History Last Taken 12/04/21] vitamin E (dl, acetate) 45 mg (100 unit) capsule 45 mg PO DAILY supplement 12/05/21 [History Last Taken 12/04/21] apixaban 5 mg tablet (Eliquis) 5 mg PO BID blood thinner #180 tabs 12/26/21 [Rx Last Taken Unknown] nitroglycerin 0.4 mg sublingual tablet (Nitrostat) 0.4 mg sublingual Q5M PRN Chest Pain #25 tabs 02/18/22 [Rx Last Taken Unknown] buspirone 10 mg tablet 10 mg PO TID mental health #90 tabs 02/19/22 [Rx Last Taken Unknown] dapagliflozin 10 mg tablet (Farxiga) 10 mg PO DAILY #30 tabs 02/19/22 [Rx Last Taken Unknown] dicyclomine 10 mg capsule 10 mg PO 4X/DAY ibs #120 caps 02/19/22 [Rx Last Taken Unknown] duloxetine 30 mg capsule,delayed release 30 mg PO DAILY mental health #30 caps 02/19/22 [Rx Last Taken Unknown] duloxetine 60 mg capsule,delayed release 60 mg PO DAILY mental health #30 caps 02/19/22 [Rx Last Taken Unknown] ferrous sulfate 325 mg (65 mg iron) tablet 325 mg PO BID supplement #60 tabs 02/19/22 [Rx Last Taken Unknown] atorvastatin 40 mg tablet 40 mg PO DAILY cholesterol #90 tabs 03/13/22 [Rx Last Taken Unknown] furosemide 40 mg tablet 40 mg PO BID diuretic #60 tabs 03/13/22 [Rx Last Taken Unknown] gabapentin 300 mg capsule See Rx Instructions .Route .COMPLEX #90 caps 03/13/22 [Rx Last Taken Unknown] pantoprazole 40 mg tablet,delayed release 40 mg PO DAILY #90 tabs 03/13/22 [Rx Last Taken Unknown] albuterol sulfate 90 mcg/actuation aerosol inhaler 1 - 2 puff inhalation Q4H PRN PRN Dyspnea, wheezing ##1 04/04/22 [Rx Last Taken Unknown] fluticasone 500 mcg-salmeterol 50 mcg/dose blistr powdr for inhalation (Wixela Inhub) 1 inh inhalation BID breathing #60 ea 04/04/22 [Rx Last Taken Unknown] tiotropium bromide 2.5 mcg/actuation mist for inhalation (Spiriva Respimat) 2 puff inhalation DAILY #4 grams 04/04/22 [Rx Last Taken Unknown] hydrocodone-acetaminophen 5-325mg 5mg-325mg 1 tab PO Q6H PRN PRN Pain 4 days #15 TABLETS 04/09/22 [Rx Last Taken Unknown] diltiazem HCl 240 mg capsule,24 hr,extended release 240 mg PO DAILY #30 caps 04/23/22 [Rx Last Taken Unknown] metoprolol tartrate 100 mg tablet 100 mg PO BID #60 tabs 04/23/22 [Rx Last Taken Unknown] Allergy/AdvReac Type Severity Reaction Status Date / Time lisinopril Allergy tongue Verified 04/23/22 12:40 swelling Family History Father Heart disease Hypertension Seizures Sister Hypertension Son CVA (cerebral vascular accident) Daughter Cancer stomach Other Family history of hypertension Surgical History Cataract extraction status History of angioplasty of peripheral vessel History of bilateral leg stents History of bunionectomy of right great toe History of cardioversion (07/18/20) History of colonoscopy (06/2018) History of coronary artery stent placement (03/18/19) History of left heart catheterization (11/25/19) History of permanent cardiac pacemaker placement (03/27/20) History of tonsillectomy Hx of APLL Hx of hysterectomy Status post left foot surgery Social History household members: other details: grandson housing: house 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al status: retired 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 Smoking Status: Former smoker quit date: 04/17/20 pack-years: 20 Electronic Cigarette Use: not used how long ago did patient quit smoking: May 2020 alcohol intake: never substance use type: does not use caffeine: No what type of physical activity do you participate in: none do you feel safe at home: Yes ROS ROS ED Constitutional Constitutional ED: Denies chills or fever(s) Eyes Eyes: Denies blurry vision ENT ENT ED: Denies rhinorrhea or sore throat Cardiovascular Cardiovascular: Reports as per HPI, chest pain, palpitations and racing heartbeat Respiratory/Chest Respiratory/Chest: Denies cough or dyspnea Gastrointestinal Gastrointestinal: Denies abdominal pain Musculoskeletal Musculoskeletal: Reports neck pain; Denies arthralgias or myalgias Integumentary Denies rash Neurologic Neurologic: Denies headache(s), paresthesias or weakness Psychiatric Psychiatric: Denies anxiety EXAM Physical Exam Const Vital Signs: 04/23/22 12:38 04/23/22 13:04 04/23/22 13:04 Temperature 96.5 F L Temperature Source Temporal Pulse Rate 176 H 117 H Respiratory Rate 18 12 Respiratory Effort Blood Pressure 115/95 H 129/67 H Blood Pressure Mean 101 87 Pulse Ox 97 96 Oxygen Delivery Method Room Air Room Air Room Air 04/23/22 13:06 04/23/22 12:45 04/23/22 13:32 Temperature Temperature Source Pulse Rate 178 H 87 Respiratory Rate 16 Respiratory Effort Normal Non-Labored Blood Pressure 130/75 H Blood Pressure Mean 93 Pulse Ox 96 Oxygen Delivery Method Room Air Positive well nourished and well developed General Appearance ED: well developed and pallor HEENT Reports moist mucous membranes normocephalic and atraumatic Eyes PERRL Neck supple and no JVD Neck Narrative: Mild left paraspinal tenderness palpation Chest Wall inspection of chest normal and palpation of chest normal Resp normal respiratory effort and clear to auscultation bilaterally Cardio regular rhythm and no murmurs Rate: tachycardic Peripheral Pulses: pulses 2+ throughout GI normal to inspection, nondistended, normoactive bowel sounds and soft to palpation Extremity normal to inspection General Extremety ED: Negative for edema or pulses abnormal General Extremity: Negative for edema or pulses abnormal Neuro oriented x3 Sensorium / Orientation: awake and alert Motor Exam: Negative for general weakness Psych mental status grossly normal Mood & Affect: anxious Skin no rashes or lesions noted General Skin Exam: pallor MDM MDM MDM Narrative Medical decision making narrative: Patient is evaluated for sudden onset of racing heartbeat, lightheadedness and palpitations. She has some associated chest discomfort. She also notes that she is having some neck pain worse on the left side. On arrival patient appears to be in SVT with heart rate of 175. Vagal maneuver performed and patient slowly has improvement of her heart rate initially down to the 1 teens and then into the 80s without any further intervention. Her symptoms have improved. Patient does have a history of atrial fibrillation and follows with cardiology, Dr. Treviño. She states about 2 weeks ago she was switched from metoprolol to carvedilol but does not know exactly why. She states her A-fib is usually asymptomatic. Do not see record of this recent medication change. Patient has serial EKGs which show improvement of rates and on her third EKG is now normal sinus rhythm. She does have some ischemic changes to the inferior lateral leads however this is actually improved from her EKG on 04/09/2022. Patient's delta high-sensitivity troponin is stable at 19 and 18. Her BNP is below her baseline.Her creatinine is mildly elevated at 1.55 but at her baseline. Will contact cardiology for further recommendations but given the patient is asymptomatic at this time with resolution of arrhythmia likely can follow-up outpatient. Patient does continue to have some neck pain but I do feel this is muscle skeletal on repeat physical exam. Is given Tylenol for it. EKG is at baseline with stable high-sensitivity so low suspicion for ACS. She is on chronic anticoagulations I do not suspect pulmonary emboli.She has no change in her aortic notch nebula suspicion for arctic rupture especially as her symptoms are more palpitation and heart racing and not tearing chest pain. We do not think CT is indicated at this time. Patient's blood pressure is normal in the ER. No findings distant with pneumonia or acute infection. No significant electrolyte abnormality and her TSH is normal I do not think this is thyroid storm. Case discussed with cardiology on-call, Dr. Treviño. He cannot figure out exactly why or when her medications were changed at this time. We will switch her back to metoprolol 100 mg twice daily as well as diltiazem 240 daily. She will stop taking the carvedilol. Patient is comfortable this plan of care. She will given a new prescription for these medications. Patient is given return precautions. She is encouraged to follow-up with cardiology outpatient. She is discharged home in improved and stable condition. Lab Data Attestation: I reviewed the patient's lab results. Labs: Laboratory Results - last 24 hr 04/23/22 04/23/22 04/23/22 13:00 13:00 13:00 WBC 8.5 RBC 4.71 Hgb 14.5 Hct 43.2 MCV 91.7 MCH 30.8 MCHC 33.6 RDW Std Deviation 47.3 H RDW Coeff of Natalie 14.1 Plt Count 261 MPV 10.2 Immature Gran % (Auto) 0.200 Neut % (Auto) 80.3 H Lymph % (Auto) 10.3 L [place] % (Auto) 7.2 Eos % (Auto) 1.5 Baso % (Auto) 0.5 Absolute Neuts (auto) 6.8 Absolute Lymphs (auto) 0.88 Nucleated RBC % 0 Sodium 141 Potassium 3.9 Chloride 102 Carbon Dioxide 31.0 Anion Gap 8 BUN 21 H Creatinine 1.55 H Estim Creat Clear Calc 25.57 Est GFR (MDRD) Af Amer 42 L Est GFR (MDRD) Non-Af 35 L BUN/Creatinine Ratio 13.5 Glucose 140 H Calcium 9.6 Magnesium 2.6 Troponin I High Sens 19 B-Natriuretic Peptide TSH 3.50 04/23/22 04/23/22 13:00 Unknown WBC RBC Hgb Hct MCV MCH MCHC RDW Std Deviation RDW Coeff of Natalie Plt Count MPV Immature Gran % (Auto) Neut % (Auto) Lymph % (Auto) [place] % (Auto) Eos % (Auto) Baso % (Auto) Absolute Neuts (auto) Absolute Lymphs (auto) Nucleated RBC % Sodium Potassium Chloride Carbon Dioxide Anion Gap BUN Creatinine Estim Creat Clear Calc Est GFR (MDRD) Af Amer Est GFR (MDRD) Non-Af BUN/Creatinine Ratio Glucose Calcium Magnesium Troponin I High Sens 18 B-Natriuretic Peptide 506.6 H TSH Radiography Chest X-Ray - ED: 2 View, Read by ED Physician, Read by Radiologist and No Acute Disease Diagnostic Testing: Clinical Impression(s) from Imaging Studies Chest X-Ray 04/23/22 13:40 IMPRESSION: No acute findings in the chest and unchanged when compared to 12/05/2021. Electronically Signed: Tao Jimenez MD at 14:05 EST Reading Location ID and State: [facility] / [place] , Service support , Rhythm Strip Rhythm Strip: SVT Rate: 175 Ectopy: None EKG Initial EKG: Attestation: I personally reviewed and interpreted this EKG as follows: Comments: Supraventricular tachycardia at a rate of [address] segment abnormalities likely consistent with strain pattern Prior: Changed Follow-up EKG: Attestation: I personally reviewed and interpreted this EKG as follows: Comments: Narrow complex rhythm at a rate of 117 bpm, possibly atrial flutter with variable conduction Minimal voltage criteria for LVH ST depressions in lead II as well as lateral leads with no reciprocal changes 3: Attestation: I personally reviewed and interpreted this EKG as follows: Interpretation: Sinus Rhythm Comments: Normal sinus rhythm at a rate of 83 bpm Left axis deviation LVH with repolarization abnormalities ST depressions in 2, V4 - V6 Compared to prior EKG on 04/09/2022, patient has improvement of her ST abnormalities And is no longer in atrial flutter Discharge Plan Triage Chief Complaint: Palpitations ED Provider: Veronica Navarro Dx/Rx/DC Orders Clinical Impression: SVT (supraventricular tachycardia), Heart palpitations Instructions: ED Understanding Supraventricular Tachycardia (SVT), ED Palpitations Prescriptions: New metoprolol tartrate 100 mg tablet 100 mg PO BID Qty: 60 0RF diltiazem HCl 240 mg capsule,extended release 24 hr 240 mg PO DAILY Qty: 30 0RF Discontinued carvedilol [Coreg] 25 mg tablet 25 mg PO BID Qty: 60 6RF Rx Instructions: must administer with a meal/food No Action calcium carbonate-vitamin D3 [Calcium 600 with Vitamin D3] 600 mg(1,500mg) -500 unit capsule 1 cap PO DAILY albuterol sulfate 90 mcg/actuation HFA aerosol inhaler 1 - 2 puff INHALATION Q4H PRN PRN (Reason: Dyspnea, wheezing) Qty: 1 6RF fluticasone propion-salmeterol [Wixela Inhub] 500-50 mcg/dose blister with device 1 inh INHALATION BID Qty: 60 6RF Spiriva Respimat 2.5 mcg/actuation mist 2 puff inhalation DAILY Qty: 4 6RF trazodone 150 mg Tablet 150 mg PO QHS ascorbic acid (vitamin C) [Vitamin C] 1,000 mg tablet 1,000 mg PO DAILY lorazepam 1 mg tablet 1 mg PO TID PRN (Reason: Anxiety) Rx Instructions: TAKE 1 TABLET BY MOUTH THREE TIMES A DAY AND 1 TABLET TWICE A DAY NEEDED FOR ANXIETY/RESTLESSNESS (PALLIATIVE CARE) vitamin E (dl, acetate) 45 mg (100 unit) capsule 45 mg PO DAILY clopidogrel 75 mg tablet 75 mg PO DAILY potassium chloride 20 mEq tablet extended release 20 meq PO BID hydrocodone-acetaminophen [hydrocodone-acetaminophen] 5-325 mg tablet 1 tab PO Q6H PRN PRN (Reason: Pain) 4 Days Qty: 15 0RF isosorbide mononitrate 60 mg tablet extended release 24 hr 60 mg PO DAILY Qty: 90 3RF amiodarone 200 mg tablet 200 mg PO DAILY Qty: 90 3RF Eliquis 5 mg tablet 5 mg PO BID Qty: 180 3RF nitroglycerin [Nitrostat] 0.4 mg tablet, sublingual 0.4 mg SUBLINGUAL Q5M PRN (Reason: Chest Pain) Qty: 25 3RF buspirone 10 mg tablet 10 mg PO TID Qty: 90 5RF Farxiga 10 mg tablet 10 mg PO DAILY Qty: 30 5RF dicyclomine 10 mg capsule 10 mg PO 4X/DAY Qty: 120 5RF duloxetine 30 mg capsule,delayed release(DR/EC) 30 mg PO DAILY Qty: 30 5RF duloxetine 60 mg capsule,delayed release(DR/EC) 60 mg PO DAILY Qty: 30 5RF ferrous sulfate 325 mg (65 mg iron) tablet 325 mg PO BID Qty: 60 5RF gabapentin 300 mg capsule See Rx Instructions .ROUTE .COMPLEX Qty: 90 0RF Dose Instruction: TAKE 1 CAPSULE BY MOUTH IN THE MORNING and TAKE 2 CAPSULES BY MOUTH AT BEDTIME Rx Instructions: TAKE 1 CAPSULE BY MOUTH IN THE MORNING and AFTERNOON. TAKE 2 CAPSULES BY MOUTH AT BEDTIME atorvastatin 40 mg tablet 40 mg PO DAILY Qty: 90 1RF pantoprazole 40 mg tablet,delayed release (DR/EC) 40 mg PO DAILY Qty: 90 1RF furosemide 40 mg tablet 40 mg PO BID Qty: 60 6RF Primary Care Provider: Opal Ayoub Referrals: Opal Ayoub MD [Primary Care Provider] - Jaime Treviño MD [Med Staff - Active Staff] - 1-2 Weeks Disposition Disposition: Home, Self Care
[2022-04-23 14:34] LABS: BNP,B-Type NATRIURETIC PEPTIDE 506.6 pg/mL (0-100)
--- NOTE | 2022-04-23 14:42 | EKG12_ITS ---
Test Reason : Blood Pressure : / mmHG Vent. Rate : 175 BPM Atrial Rate : 000 BPM P-R Int : 000 ms QRS Dur : 110 ms QT Int : 246 ms P-R-T Axes : 000 020 233 degrees QTc Int : 419 ms Supraventricular tachycardia Marked ST abnormality, possible inferior subendocardial injury Marked ST abnormality, possible anterolateral subendocardial injury Abnormal ECG Confirmed by HUYEN JEAN-BAPTISTE, TAYLOR ([id number]), tape editor MAREN GRIMES ([id number]) on 04/25/2022 1:03:17 PM Referred By: TRA Confirmed By:TAYLOR MATSON MD
[2022-04-23 15:14] LABS: Troponin-I HS 18 pg/mL (3.0-54.0)
[2022-04-23 15:32] LABS: Magnesium 2.6 mg/dL (1.6-2.6)
[2022-04-23] MEDS: Acetaminophen 325 MG Tablet 650 MG PO (16:03)
[2022-04-23] MEDS: Metoprolol Tartrate 100 MG Tablet PO (17:46)
== END 2022-04-23 17:56 | disposition home or self-care (01) ==
PROVIDERS: Emergency Provider Emergency Medicine; PCP Internal Medicine; Visit Provider Emergency Medicine
DX: I47.1 Supraventricular tachycardia (principal); J43.9 Emphysema, unspecified; I13.0 Hypertensive heart and chronic kidney disease with heart failure and stage 1 through stage 4 chronic kidney disease, or unspecified chronic kidney disease; I50.89 Other heart failure; N18.4 Chronic kidney disease, stage 4 (severe); R07.9 Chest pain, unspecified; E78.5 Hyperlipidemia, unspecified; I25.10 Atherosclerotic heart disease of native coronary artery without angina pectoris; Z87.891 Personal history of nicotine dependence; R00.2 Palpitations; Z95.1 Presence of aortocoronary bypass graft; Z79.01 Long term (current) use of anticoagulants; Z79.899 Other long term (current) drug therapy
CPT/HCPCS: 71046; 80048; 83735; 83880; 84443; 84484; 85025; 93005; 99285; J7030; A4216

== ENCOUNTER → 2022-05-16 | Outpatient (CLI) | payer MEDICARE, SELFPAY ==
[2019-07-16 09:26] VITALS: BMI 29.5
--- NOTE | 2022-05-16 17:31 | US_ITS ---
EXAM: US RETROPERITONEAL LIMITED, RENAL CLINICAL INDICATION: low attenuated focus of right kidney TECHNIQUE: Limited grayscale and color Doppler sonographic evaluation of the retroperitoneum was performed. This report was created using [employer] technology. COMPARISON: None. FINDINGS: RIGHT KIDNEY: Right kidney measures 8.0 x 4.2 x 5.1 cm. The right renal cortex measures 1.4 cm. There is a 2.0 x 1.8 x 1.8 cm anechoic structure in the right kidney compatible with a cyst. No hydronephrosis. No shadowing calculus. No perinephric collection is demonstrated. LEFT KIDNEY: The left kidney measures 8.9 x 4.2 x 3.7 cm. Left renal cortex measures 1.7 cm. No hydronephrosis. No shadowing calculus. No perinephric collection is demonstrated. BLADDER: The bladder measures 6.0 x 7.1 x 9.2 cm for volume of 207 mL. The urinary bladder wall measures 3 mm. Post void the bladder measures 2.6 x 0.9 x 3.2 cm for volume of 4 mL. US/Kidney and Bladder IMPRESSION: Anechoic structure in the right kidney compatible with a cyst. No other abnormalities are seen in the right kidney. Electronically Signed: Wilman Mckay MD at 23:58 EST ,
== END | disposition home or self-care (01) ==
LOC: US 17:30
PROVIDERS: PCP Internal Medicine; Visit Provider Internal Medicine
DX: R93.89 Abnormal findings on diagnostic imaging of other specified body structures (principal)
CPT/HCPCS: 76770

== ENCOUNTER 2022-06-02 15:23 | Emergency (ER) | payer MEDICARE, SELFPAY ==
[2019-07-16 09:26] VITALS: BMI 29.5
[2022-06-02 15:25] VITALS: PULSE 72; RESP 13; TEMP 36.2; O2SAT 98; BMI 25.7
--- NOTE | 2022-06-02 15:31 | CT_ITS ---
STUDY: CT BRAIN WITHOUT CONTRAST REASON FOR EXAM: Female, 72 years old. head injury RADIATION DOSAGE (If Supplied By Facility): CTDIvol = ( 44.99 ) mGy, DLP = ( 796.11 ) mGycm TECHNIQUE: Transaxial CT imaging of the brain was performed without administration of intravenous contrast material. Individualized dose optimization techniques were used for this CT. COMPARISON: 04/09/2022 FINDINGS: Normal soft tissue structures. There is hyperostosis frontalis internus. Normal size ventricles and extra-axial spaces for the patient''s age. Normal white matter tracts of the cerebral hemispheres. Normal basal ganglia and thalami. Normal brainstem. Normal cerebellum. There is no intracranial hemorrhage. There are no findings of an acute ischemic infarction. Normal visualized paranasal sinuses. CT/Brain/Head without Contrast IMPRESSION: Normal unenhanced CT scan of the brain. Electronically Signed: Daniel Kimbrough MD at 16:28 EDT ,
--- NOTE | 2022-06-02 15:31 | CT_ITS ---
STUDY: CT CERVICAL SPINE WITHOUT CONTRAST REASON FOR EXAM: Female, 72 years old. polytrauma RADIATION DOSAGE (If Supplied By Facility): CTDIvol = ( 16.81 ) mGy, DLP = ( 383.21 ) mGycm TECHNIQUE: High resolution transaxial imaging was performed without contrast material. Sagittal and coronal images were reconstructed. Individualized dose optimization techniques were used for this CT. COMPARISON: 05/23/2021 FINDINGS: Normal craniovertebral junction. There are degenerative changes of the anterior atlantoaxial articulation. Normal odontoid process. There is straightening of the normal cervical lordosis. Normal vertebral bodies and posterior osseous elements. C2-3: Mild left facet hypertrophy produces mild left neural foraminal stenosis. No central spinal stenosis. C3-4: Normal endplates. Normal disc height and morphology. Normal central canal and intervertebral neuroforamina. C4-5: Mild broad disc osteophyte complex produces mild spinal stenosis. No neural foraminal stenosis. C5-6: Mild broad disc osteophyte complex produces mild spinal stenosis. No neural foraminal stenosis. C6-7: Mild broad disc osteophyte complex produces mild spinal stenosis. No neural foraminal stenosis. C7-T1: Normal endplates. Normal disc height and morphology. Normal central canal and intervertebral neuroforamina. Normal visualized soft tissue structures. CT/Spine Cervical without Contras IMPRESSION: No acute fracture or subluxation. Electronically Signed: Daniel Kimbrough MD at 16:35 EDT ,
[2022-06-02 15:32] VITALS: BP 126/71; PULSE 72; RESP 16; O2SAT 96
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
== END 2022-06-02 16:51 | disposition home or self-care (01) ==
PROVIDERS: Emergency Provider Emergency Medicine; PCP Internal Medicine; Visit Provider Emergency Medicine
DX: I48.0 Paroxysmal atrial fibrillation (principal); J43.9 Emphysema, unspecified; I13.0 Hypertensive heart and chronic kidney disease with heart failure and stage 1 through stage 4 chronic kidney disease, or unspecified chronic kidney disease; I50.42 Chronic combined systolic (congestive) and diastolic (congestive) heart failure; N18.4 Chronic kidney disease, stage 4 (severe); V48.5XXA Car driver injured in noncollision transport accident in traffic accident, initial encounter; Z87.891 Personal history of nicotine dependence; Z95.5 Presence of coronary angioplasty implant and graft; Z79.01 Long term (current) use of anticoagulants; E78.00 Pure hypercholesterolemia, unspecified; Z79.899 Other long term (current) drug therapy; F32.A Depression, unspecified; Z95.0 Presence of cardiac pacemaker; F41.9 Anxiety disorder, unspecified; K58.9 Irritable bowel syndrome, unspecified; K21.9 Gastro-esophageal reflux disease without esophagitis
CPT/HCPCS: 70450; 72125; 99283

== ENCOUNTER → 2022-06-11 | Outpatient (CLI) | payer MEDICARE, SELFPAY ==
[2019-07-16 09:26] VITALS: BMI 29.5
--- NOTE | 2022-06-11 13:47 | ECHOL_ITS ---
Version 2 Reason For Study: Cardiomyopathy Procedure This was a limited 2D transthoracic echocardiogram. Exam performed in department. Left Ventricle Normal LV size. Moderate concentric left ventricular hypertrophy. The estimated ejection fraction is 30 %. There is moderate to severe global hypokinesis of the left ventricle. Right Ventricle Normal RV size. Normal systolic function. Atria The left atrium is moderately enlarged. Normal right atrium. Mitral Valve Bileaflet diffuse mitral valve thickening. Moderately severe (3+) eccentric mitral valve insufficiency. Tricuspid Valve Normal tricuspid valve. Moderate (2+) tricuspid valve insufficiency. Pulmonary artery systolic pressure is 42 mmHg. Aortic Valve Trisinus/trileaflet aortic valve. Mild focal aortic valve calcification. Mild (1+) aortic valve insufficiency. Pulmonic Valve Normal pulmonic valve. Great Vessels Normal aortic root. The pulmonary artery is normal size. Normal inferior vena cava. Pericardium/Pleural No pericardial effusion. MMode/2D Measurements & Calculations LVIDd: 5.3 cm IVSd: 1.5 cm LA dimension: 5.5 cm LVIDs: 4.4 cm LVPWd: 1.4 cm RVDd: 4.2 cm FS: 16.6 % LAV(MOD-bp): 105.7 ml LA A4 area: 30.6 cm2 RA A4 area: 15.2 cm2 LAV(MOD-bp) Indexed: 65.5 ml/m2 LAV(MOD-sp2): 100.4 ml LAV(MOD-sp4): 106.5 ml Doppler Measurements & Calculations Lat Peak E' Johan: 9.5 cm/sec Med Peak E' Johan: 7.8 cm/sec AI max johan: 428.5 cm/sec AI max P.4 mmHg AI dec slope: 330.6 cm/sec2 AI P1/2t: 379.7 msec MR max johan: 661.4 cm/sec TR max johan: 310.7 cm/sec MR max P.0 mmHg TR max P.6 mmHg MR mean johan: 432.4 cm/sec MR mean P.8 mmHg MR VTI: 208.2 cm ECHO/Echo, Limited Study Interpretation Summary Normal LV size. The estimated ejection fraction is 30 %. There is moderate to severe global hypokinesis of the left ventricle. Moderate concentric left ventricular hypertrophy. Pulmonary artery systolic pressure is 42 mmHg. The global longitudinal strain is severely abnormal. The global longitudinal st rain = -8% (abnormal). Ordering Physician: Cem Zuñiga Referring Physician: Masha Ayoub Performed By: Donis Hammond RCS
--- NOTE | 2022-06-11 13:47 | CT_ITS ---
STUDY: LOW DOSE CT LUNG CANCER SCREENING REASON FOR EXAM: Female, 72 years old. Patient smoked half a pack per day for 58 years. COPD. RADIATION DOSAGE (If Supplied By Facility): CTDIvol = ( 2.39 ) mGy, DLP = ( 82.20 ) mGycm TECHNIQUE: No contrast was administered. Low dose technique was utilized (average mAS-38 and kVp 120). 1.25 mm axial source images with a slice interval of 1.25-mm were reconstructed in lung windows. 2.5 mm axial source images with a slice interval of 2.5-mm were reconstructed in lung windows. 5.0 mm axial source images with a slice interval of 5.0-mm were reconstructed in soft tissue windows. COMPARISON: Comparison is made with prior study of May 23, 2021. NODULES: No suspicious nodules are seen. Emphysema: Thickening of the posterior aspect of the right major fissure medially. Mild degree of increased markings at the lung bases as well as the right middle lobe and lingular segment of the left upper lobe suggestive of scarring. Endobronchial lesion: Unremarkable Aorta: Calcified atherosclerotic plaques. CORONARY ARTERIES: Coronary artery calcification is seen. Heart: Unremarkable Pulmonary artery: Unremarkable Mediastinal nodes: Small benign-appearing mediastinal lymph nodes. Other chest and abdominal findings: CT/Low Dose CT Lung Screening IMPRESSION: Lung-RADS category 2 - Continue annual screening with LDCT in 12 months. IMPORTANT NOTES FOR USE: ACR Lung-RADS Version 1.1 Assessment Categories Release Date: 2018 Category: Coded 0-4 bases on nodule(s) with highest degree of suspicion. Negative screen is defined as categories 1 and 2; a positive screen is defined as categories 3 and 4. Category 3 and 4A nodules that are unchanged on interval CT should be coded as category 2, and individuals returned to screening in 12 months. Category 4X: Category 3 or 4 nodules with additional imaging findings that increase the suspicion of lung cancer, such as spiculation, GGN that doubles in size in 1 year, enlarged lymph notes, etc. Category Modifiers: S (significant finding unrelated to lung cancer) Electronically Signed: Brown Yanes MD at 11:02 EDT ,
== END | disposition home or self-care (01) ==
LOC: CVS 13:46
PROVIDERS: PCP Internal Medicine; Visit Provider Nurse Practitioner Gerontology
DX: R07.9 Chest pain, unspecified (principal); I50.20 Unspecified systolic (congestive) heart failure; F17.210 Nicotine dependence, cigarettes, uncomplicated
CPT/HCPCS: 71271; 93308

== ENCOUNTER → 2022-08-14 | Outpatient (CLI) | payer MEDICARE, MEDICAID, SELFPAY ==
[2019-07-16 09:26] VITALS: BMI 29.5
[2022-08-14 16:50] LABS: Absolute Lymphocyte Count 0.74 X10^3/uL (0.83-4.51); Absolute Neutrophil Count 4.3 X10^3/uL (2.0-7.7); Basophil# 0.02 X10^3/uL; Basophil% 0.4 % (0-1); Eosinophil# 0.15 X10^3/uL; Eosinophils% 2.7 % (0-5); Hematocrit 32.5 % (37-47); Hemoglobin 10.1 g/dL (12.0-15.0); Lymphocyte # 0.74 X10^3/ul (0.83-4.51); Lymphocyte % 13.3 % (19-41); Mean Corp Hgb Conc 31.1 g/dL (32-36); Mean Corpuscular Hgb 29.3 pg (27.0-32.0); Mean Corpuscular Volume 94.2 fL (81-99); Mean Platelet Vol. 10.7 fl (6.2-12.0); Monocyte# 0.35 X10^3/uL; Monocyte% 6.3 % (0-10); NRBC Flagged by Analyzer 0 % (0-5); Neutrophil # 4.29 X10^3/uL (2.7-7.7); Neutrophil % 77.1 % (47-70); Platelet Count 204 K/mm3 (150-450); RBC Distribution Width CV 13.4 % (11.6-14.6); RBC Distribution Width SD 45.9 fl (35.1-43.9); Red Blood Count 3.45 M/mm3 (4.2-5.4); White Blood Count 5.6 K/mm3 (4.4-11.0)
[2022-08-14 17:14] LABS: AST(SGOT) 20 U/L (15-37); Alanine Aminotransfer ALT/SGPT 14 U/L (13-56); Albumin, Serum 3.2 g/dL (3.2-5.0); Alkaline Phosphatase 119 U/L (45-117); Anion Gap 5 (5-15); BUN 19 mg/dL (7-18); BUN/Creat Ratio 11.7 RATIO (10-20); Calcium,Total 8.2 mg/dL (8.5-10.1); Chloride 104 mmol/L (98-107); Cholesterol 113 mg/dL (200); Creatinine, Serum 1.62 mg/dL (0.55-1.02); EST Glomerular Filtration Rate 33 mL/min (>60); Est Glom Filt Rate - Afr Amer 40 mL/min (>60); Globulin 3.3 g/dL (2.2-4.2); Glucose 88 mg/dL (74-106); High Density Lipoprotein 41 mg/dL; Potassium 3.9 mmol/L (3.5-5.1); Protein, Total 6.5 g/dL (6.4-8.2); Sodium Level 141 mmol/L (136-145); Triglycerides 103 mg/dL; Very Low Density Lipoprotein 21 mg/dL (5-40)
[2022-08-14 17:23] LABS: Hemoglobin A1c < 3.8 % (3.8-5.6)
== END | disposition home or self-care (01) ==
LOC: BIMLAB 14:48
PROVIDERS: PCP Internal Medicine; Visit Provider Internal Medicine
DX: I25.10 Atherosclerotic heart disease of native coronary artery without angina pectoris (principal); N18.30 Chronic kidney disease, stage 3 unspecified; R73.09 Other abnormal glucose
CPT/HCPCS: 36415; 80053; 80061; 83036; 85025

== ENCOUNTER → 2022-11-21 | Outpatient (CLI) | payer MEDICARE, MEDICAID, SELFPAY ==
[2019-07-16 09:26] VITALS: BMI 29.5
[2022-11-21 15:33] LABS: Color, Urine Yellow (Yellow); Glucose, Dipstick 100 mg/dl (Normal); Ketone-Dipstick Negative (Negative); Leukocyte Esterase-Dipstick 100 /ul (Negative); Nitrite-Dipstick Negative (Negative); Occult Blood-Urine Negative /ul (Negative); Protein-Dipstick Negative (Negative); Specific Gravity, Urine 1.015 (1.002-1.030); Urine Bilirubin Dipstick Negative (Negative); Urine Clarity Clear (Clear); Urine Urobilinogen Normal (Normal)
[2022-11-21 15:35] LABS: Absolute Lymphocyte Count 0.55 X10^3/uL (0.83-4.51); Absolute Neutrophil Count 3.8 X10^3/uL (2.0-7.7); Basophil# 0.02 X10^3/uL; Basophil% 0.4 % (0-1); Eosinophil# 0.11 X10^3/uL; Eosinophils% 2.3 % (0-5); Hematocrit 35.4 % (37-47); Hemoglobin 11.7 g/dL (12.0-15.0); Lymphocyte # 0.55 X10^3/ul (0.83-4.51); Lymphocyte % 11.6 % (19-41); Mean Corp Hgb Conc 33.1 g/dL (32-36); Mean Corpuscular Volume 90.8 fL (81-99); Mean Platelet Vol. 10.6 fl (6.2-12.0); Monocyte# 0.28 X10^3/uL; Monocyte% 5.9 % (0-10); NRBC Flagged by Analyzer 0 % (0-5); Neutrophil # 3.79 X10^3/uL (2.7-7.7); Neutrophil % 79.6 % (47-70); POSITIVE DIFFERENTIAL YES; Platelet Count 174 K/mm3 (150-450); RBC Distribution Width CV 14.2 % (11.6-14.6); RBC Distribution Width SD 46.1 fl (35.1-43.9); White Blood Count 4.8 K/mm3 (4.4-11.0)
[2022-11-21 15:45] LABS: Vitamin B12 518 pg/mL (211-911)
[2022-11-21 15:45] LABS: Differential Indicated SCAN CRITERIA MET
[2022-11-21 16:08] LABS: AST(SGOT) 19 U/L (15-37); Alanine Aminotransfer ALT/SGPT 24 U/L (13-56); Albumin, Serum 3.4 g/dL (3.2-5.0); Alkaline Phosphatase 139 U/L (45-117); Anion Gap 8 (5-15); BUN 26 mg/dL (7-18); BUN/Creat Ratio 19.8 RATIO (10-20); Calcium,Total 8.4 mg/dL (8.5-10.1); Chloride 108 mmol/L (98-107); Creatinine, Serum 1.31 mg/dL (0.55-1.02); EST Glomerular Filtration Rate 42 mL/min (>60); Est Glom Filt Rate - Afr Amer 51 mL/min (>60); Globulin 3.4 g/dL (2.2-4.2); Glucose 92 mg/dL (74-106); Potassium 3.4 mmol/L (3.5-5.1); Protein, Total 6.8 g/dL (6.4-8.2); Sodium Level 142 mmol/L (136-145); Thyroid Stim Hormone (TSH) 4.73 uIU/mL (0.358-3.74)
[2022-11-21 16:34] LABS: Differential Comment SCANNED
== END | disposition home or self-care (01) ==
LOC: BIMLAB 12:34
PROVIDERS: PCP Internal Medicine; Visit Provider Internal Medicine
DX: R53.83 Other fatigue (principal)
CPT/HCPCS: 36415; 80053; 81002; 82607; 84443; 85025; 87077; 87086; 87088; 87186

== ENCOUNTER → 2023-04-14 | Outpatient (CLI) | payer MEDICARE, SELFPAY ==
[2019-07-16 09:26] VITALS: BMI 29.5
--- NOTE | 2023-04-14 14:29 | CT_ITS ---
EXAM: CT HEAD WITHOUT INTRAVENOUS CONTRAST CLINICAL INDICATION: cognitive decline, fall with head injury TECHNIQUE: Multiple axial images were obtained of the head without intravenous contrast. This CT exam was performed using one or more of the following dose reduction techniques: automated exposure control, adjustment of the mA and/or kV according to patient size, and/or use of iterative reconstruction technique. COMPARISON: CT head 06/02/2022. FINDINGS: BRAIN AND EXTRA-AXIAL SPACES: No hemorrhage or mass effect. No acute ischemia. Areas of diminished white matter density noted within both cerebral hemispheres suggestive of chronic microvascular change. Prominence of the cortical sulci and ventricles related to volume loss change. BONES/JOINTS: No suspicious lytic or blastic abnormality. SINUSES: No acute sinusitis. MASTOID AIR CELLS: Normal. Clear. CT/Brain/Head without Contrast IMPRESSION: 1. No acute intracranial abnormality. 2. Stable senescent changes. Electronically Signed: Rob Rios MD at 17:02 EST ,
--- OUTSIDE RECORDS SUMMARY | 2023-04-14 14:51 | XMS RPT_ITS | CCD ---
Author Name Unknown Address [address] [place] [address] Organization [facility] Care Team Providers Care Braze Operator Name Role Phone Abigail JEAN-BAPTISTE, Cathi Hinojosa Primary Care Provider Cathi Hayes MD Primary Care Provider Cem Jewell MD(Historical) Primary Care Provi mariya Unavailable Anitra JEAN-BAPTISTE, Alexandre Yeager Primary Care Provider Keith JEAN-BAPTISTE, Lana Unavailable Anitra JEAN-BAPTISTE, Alexandre Yeager Primary Care Provider [phone] Keith JEAN-BAPTISTE, Lana Unavailable Kamila, Jaime Unavailable Zack Marx Unavailable KEITH, LANA Attending Unavailable ANITRA, ALEXANDRE Primary Care Unavailable KEITH, LANA Admitting Unavailable KEITH, LANA Attending Unavailable ANITRA, ALEXANDRE Primary Care Unavailable MARIBEL MENG Referring Unavailable ANITRA, ALEXANDRE Primary Care Unavailable KEITH, LAAN Attending Unavailable KEITH, LANA Referring Unavailable ANITRA, ALEXANDRE Primary Care Unavailable ANITRA, ALEXANDRE Primary Care Unavailable KEITH, LANA Attending Unavailable ANITRA, ALEXANDRE Primary Care Unavailable KEITH, LANA Attending Unavailable ANITRA, ALEXANDRE Primary Care Unavailable Allergies Allergy Classification Reported Allergen(s) Allergy Type Date of Onset Reaction(s) Facility (6 sources) Lisinopril Drug Allergy 0 Other: See Comments [facility] (11 sources) Lisinopril Allergy to substance 0 [facility] Medications Current Medications Medication Drug Class(es) Dates Sig (Normalized) Sig (Original) acetaminophen 325 mg / oxyCODONE hydrochloride 5 mg oral tablet (2 sources) Opioid Agonist Start: 07-09-2022 End: 07-14-2022 take 1 tablet by mouth every six hours as needed for pain oxyCODONE-acetami nophen (Percocet) 5-325 MG tablet Indications: Infrarenal abdominal aortic aneurysm (AAA) without rupture (HCC) Take 1 tablet by mouth every 6 hours as needed for severe pain (7-10) for up to 5 days. 20 tablet 0 07/09/2022 07/14/2022 Active amiodarone hydrochloride 200 mg oral tablet (16 sources) Antiarrhythmic Start: 02-19-2022 End: 07-10-2022 take 1 tablet by mouth once daily amiodarone (Pacerone) 200 MG tablet Take 200 mg by mouth daily. 0 02/19/2022 Active Completed/Discontinued Medications Medication Drug Class(es) Dates Sig (Normalized) Sig (Original) acetaminophen 500 mg oral tablet (19 sources) Start: 07-05-2022 End: 07-05-2022 acetaminophen (Tylenol) tablet 1,000 mg Problems Active Problems Problem Classification Problem Date Documented Date Episodic/Chronic Anxiety disorders (11 sources) Anxiety; Translations: [Anxiety disorder, unspecified] Onset: 01-31-2022 05-23-2022 Chronic Aortic; peripheral; and visceral artery aneurysms (20 sources) Abdominal aortic aneurysm without rupture; Translations: [Abdominal aortic aneurysm, without rupture] Onset: 09-14-2019 09-14-2019 Chronic Cardiac dysrhythmias (17 sources) Atrial fibrillation; Translations: [Unspecified atrial fibrillation] Onset: 07-16-2011 07-16-2011 Chronic Chronic kidney disease (11 sources) Chronic kidney disease stage 4; Translations: [Chronic kidney disease, stage 4 (severe)] Onset: 01-31-2022 05-23-2022 Chronic Chronic obstructive pulmonary disease and bronchiectasis (11 sources) Chronic obstructive lung disease; Translations: [Chronic obstructive pulmonary disease, unspecified] Onset: 06-25-2021 05-23-2022 Chronic Coronary atherosclerosis and other heart disease (20 sources) History of myocardial infarction; Translations: [Old myocardial infarction] Onset: 08-15-2011 08-15-2011 Chronic Disorders of lipid metabolism (20 sources) Dyslipidemia; Translations: [Hyperlipidemia, unspecified] Onset: 08-31-2014 08-31-2014 Chronic Esophageal disorders (17 sources) Gastroesophageal reflux disease; Translations: [Gastro-esophageal reflux disease without esophagitis] Onset: 05-23-2022 01-29-2017 Chronic Essential hypertension (6 sources) Hypertensive disorder; Translations: [Essential (primary) hypertension] 07-16-2011 Chronic Other circulatory disease (2 sources) Personal history of other diseases of the circulatory system; Translations: [Personal history of other diseases of the circulatory system] Onset: 08-08-2022 Episodic Other hereditary and degenerative nervous system conditions (17 sources) Restless legs; Translations: [Restless legs syndrome] Onset: 07-16-2011 07-16-2011 Chronic Other nervous system disorders (17 sources) Chronic pain; Translations: [Other chronic pain] Onset: 01-15-2013 01-15-2013 Chronic Other screening for suspected conditions (not mental disorders or infectious disease) (1 source) Patient encounter status; Translations: [Encounter for screening mammogram for malignant neoplasm of breast] Episodic Peripheral and visceral atherosclerosis (17 sources) Peripheral vascular disease, unspecified; Translations: [Peripheral vascular disease, unspecified] Onset: 08-13-2011 08-13-2011 Chronic Residual codes; unclassified (6 sources) Sleep apnea; Translations: [Sleep apnea, unspecified] 06-25-2019 Chronic Residual codes; unclassified (11 sources) Obstructive sleep apnea syndrome; Translations: [Obstructive sleep apnea (adult) (pediatric)] Onset: 06-25-2021 05-23-2022 Chronic Residual codes; unclassified (2 sources) History of cardiovascular surgery; Translations: [Other specified postprocedural states] Episodic Residual codes; unclassified (2 sources) Other specified postprocedural states; Translations: [Other specified postprocedural states] Onset: 08-08-2022 Episodic Spondylosis; intervertebral disc disorders; other back problems (17 sources) Degeneration of lumbar intervertebral disc; Translations: [Other intervertebral disc degeneration, lumbar region] Onset: 01-15-2013 01-15-2013 Chronic Unclassified (2 sources) Post-op; Translations: [Post-op] Onset: 08-19-2022 Unclassified (1 source) Infrarenal abdominal aortic aneurysm, without rupture (HCC); Translations: [Infrarenal abdominal aortic aneurysm, without rupture (HCC)] Onset: 07-05-2022 Unclassified (2 sources) New Patient; Translations: [New Patient] Onset: 05-27-2022 Past or Other Problems Problem Classification Problem Date Documented Da te Episodic/Chronic Cancer of ovary (6 sources) History of malignant neoplasm of ovary; Translations: [Personal history of malignant neoplasm of ovary] Onset: 05-08-2012 05-08-2012 Episodic Deficiency and other anemia (11 sources) Anemia; Translations: [Anemia, unspecified] Onset: 05-25-2021 05-23-2022 Episodic Malaise and fatigue (11 sources) Fatigue; Translations: [Other fatigue] Onset: 05-23-2022 05-23-2022 Episodic Other connective tissue disease (6 sources) Recurrent falls ; Translations: [Repeated falls] Onset: 12-31-2017 12-31-2017 Episodic Other gastrointestinal disorders (11 sources) Splenomegaly; Translations: [Splenomegaly, not elsewhere classified] Onset: 05-23-2022 05-23-2022 Episodic Other liver diseases (11 sources) Raised cardiac enzyme or marker; Translations: [Abnormal levels of other serum enzymes] Onset: 05-23-2022 05-23-2022 Episodic Other nervous system disorders (6 sources) Abnormal gait; Translations: [Unspecified abnormalities of gait and mobility] Onset: 05-16-2020 05-16-2020 Episodic Residual codes; unclassified (6 sources) Tobacco user; Translations: [Tobacco use] Onset: 08-31-2014 08-31-2014 Episodic Residual codes; unclassified (11 sources) Delirium; Translations: [Disorientation, unspecified] Onset: 05-23-2022 05-23-2022 Episodic Spondylosis; intervertebral disc disorders; other back problems (12 sources) Lumbar radiculopathy; Translations: [Radiculopathy, lumbar region] Onset: 01-15-2013 01-15-2013 Episodic Unclassified (1 source) Infrarenal abdominal aortic aneurysm, without rupture (HCC); Translations: [Infrarenal abdominal aortic aneurysm, without rupture (HCC)] Onset: 07-05-2022 Viral infection (11 sources) Herpes zoster; Translations: [Zoster without complications] Onset: 05-23-2022 05-23-2022 Episodic Results Test Name Value Interpretation Reference Range Facil ity Vital Signs Date Time Vital Sign Value Performing Clinician Faci lity 08-19-2022 09:43-0400 Body temperature 96.91 [degF] Lana Parker MD Work Phone: [facility] 08-19-2022 09:43-0400 Diastolic blood pressure 73 mm[Hg] Lana Parker MD Work Phone: [facility] 08-19-2022 09:43-0400 Heart rate 74 /min Lana Parker MD Work Phone: [facility] 08-19-2022 09:43-0400 Systolic blood pressure 132 mm[Hg] Lana Parker MD Work Phone: [facility] 07-24-2022 13:46-0400 Body temperature 97.3 [degF] Lana Parker MD Work Phone: [facility] 07-24-2022 13:46-0400 Diastolic blood pressure 67 mm[Hg] Lana Parker MD Work Phone: [facility] 07-24-2022 13:46-0400 Heart rate 61 /min Lana Parker MD Work Phone: [facility] 07-24-2022 13:46-0400 Systolic blood pressure 132 mm[Hg] Lana Parker MD Work Phone: [facility] 07-10-2022 11:06-0400 Body temperature 97.81 [degF] Lana Parker MD Work Phone: [facility] 07-10-2022 11:06-0400 Diastolic blood pressure 48 mm[Hg] Lana Parker MD Work Phone: [facility] 07-10-2022 11:06-0400 Heart rate 61 /min Lana Parker MD Work Phone: [facility] 07-10-2022 11:06-0400 Respiratory rate 18 /min Lana Parker MD Work Phone: [facility] 07-10-2022 11:06-0400 SaO2% (BldA) [Mass fraction] 96 % Lana Parker MD Work Phone: [facility] 07-10-2022 11:06-0400 Systolic blood pressure 130 mm[Hg] Lana Parker MD Work Phone: [facility] 07-09-2022 09:22-0400 SaO2% (BldA) [Mass fraction] 88.5 % Lana Parker MD Work Phone: [facility] 07-07-2022 10:40-0400 Body height 152.4 cm Lana Parker MD Work Phone: [facility] 05-27-2022 09:04-0400 Body temperature 96.91 [degF] Lana Parker MD Work Phone: [facility] 05-27-2022 09:04-0400 Body weight 59.42 kg Lana Parker MD Work Phone: [facility] 05-27-2022 09:04-0400 Diastolic blood pressure 80 mm[Hg] Lana Parker MD Work Phone: [facility] 05-27-2022 09:04-0400 Systolic blood pressure 132 mm[Hg] Lana Parker MD Work Phone: [facility] Encounters Encounter Date Encounter Type Care Provider Facility Start: 08-19-2022 End: 08-19-2022 ambulatory LANA PARKER [facility] Start: 08-19-2022 End: 08-19-2022 Patient encounter status Lana Parker MD Work Phone: [facility] Start: 08-19-2022 End: 08-19-2022 Postop follow up visit related to original px Lana Parker MD Work Phone: [facility] Procedures Date Procedure Procedure Detail Performing Clinician Start: 07-10-2022 Basic metabolic pane l calcium total Raji Ontiveros MD Work Phone: Start: 07-10-2022 Basic metabolic pane l calcium total Raji Ontiveros MD Work Phone: Start: 07-09-2022 Blood gases any combination ph pco2 po2 co2 hco3 Stephan Liao MD Work Phone: Start: 07-09-2022 Urnls dip stick/tabl et reagent auto microscopy Stephan Liao MD Work Phone: Start: 07-09-2022 Ct head/brain w/o contrast material Stephan Liao MD Work Phone: Start: 07-09-2022 Glucose quantitative blood xcpt reagent strip Lana Parker MD Work Phone: Start: 07-09-2022 Basic metabolic pane l calcium total Raji Ontiveros MD Work Phone: Start: 07-08-2022 Ct abdomen & pelvis w/o contrast material Franklin Ontiveros MD Work Phone: Start: 07-08-2022 Basic metabolic pane l calcium total Raji Ontiveros MD Work Phone: Start: 07-07-2022 Ecg routine ecg w/le ast 12 lds trcg only w/o i&r Isa A Weyanoke DO Work Phone: Start: 07-07-2022 Basic metabolic pane l calcium total Raji Ontiveros MD Work Phone: Start: 07-06-2022 Potassium serum plasma/whole blood Raji Ontiveros MD Work Phone: Start: 07-06-2022 Blood count hemoglobin Raji Ontiveros MD Work Phone: Start: 07-06-2022 Basic metabolic pane l calcium total Raji Ontiveros MD Work Phone: Start: 07-05-2022 FL GUIDANCE OR USE O NLY - NON-RESULTABLE Lana Parker MD Work Phone: Start: 07-05-2022 End: 07-05-2022 Evasc rpr dplmnt cavyw-bx-rxfhc ndgft Lana Parker MD Work Phone: Start: 07-05-2022 End: 07-05-2022 Opn fem art expos dlvr evasc prosth uni Lana Parker MD Work Phone: Start: 06-26-2022 Radiologic exam ches t 2 views Maribel QUIROZ Work Phone: Start: 11-25-2020 Colonoscopy Aminata gibson ATHLETIC TRAINER.OUTPATIENT PSYCHIATRIST Work Phone: Start: 09-14-2020 Adult depression screening assessment Aminata Barrera ATHLETIC TRAINER.OUTPATIENT PSYCHIATRIST Work Phone: Start: 09-06-2020 Mammography Aminata gibosn ATHLETIC TRAINER.OUTPATIENT PSYCHIATRIST Work Phone: Start: 04-21-2015 History of placement of stent for coronary artery disease History of coronary artery stent placement Lana Parker MD Work Phone: Start: 08-31-2014 History of placement of stent for coronary artery disease S/P coronary artery stent placement Aminata Barrera ATHLETIC TRAINER.OUTPATIENT PSYCHIATRIST Work Phone: Plan of Treatment Date Care Activity Detail Author Start: 11-25-2030 Screening for malign ant neoplasm of colon [facility] Start: 03-05-2028 Urine microalbumin profile DTAP,TDAP,TD (3 - Td or Tdap) [facility] Start: 11-25-2025 Colonoscopy COLONOSCOPY [facility] Start: 11-25-2025 COLORECTAL CANCER SCREENING COLORECTAL CANCER SCREENING [facility] Start: 12-27-2024 LIPID SCREEN LIPID SCREEN [facility] Start: 11-22-2023 DIABETES SCREEN DIABETES SCREEN [facility] Start: 07-11-2023 Creatinine measurement Creatinine [facility] Start: 07-11-2023 [facility] Start: 07-10-2023 Diabetes mellitus screening Diabetes Screening [facility] Start: 06-27-2023 Creatinine measurement Creatinine Le [facility] Start: 06-27-2023 Potassium measurement Potassium Leve l [facility] Start: 02-18-2023 End: 08-20-2023 Creatinine [Mass/volume] in Serum or Plasma Creatinine, Serum Lab Routine Status post endovascular aneurysm repair (EVAR) Pre-procedure lab exam Expected: 02/18/2023 (Approximate), Expires: 08/20/2023 [facility] Immunizations Immunization Date Immunization Notes Care Provider Fa cility 01-03-2021 influenza virus vacc ine, unspecified formulation Lana Parker MD Work Phone: [facility] 09-22-2020 zoster vaccine recombinant Aminata Podlogar ATHLETIC TRAINER.OUTPATIENT PSYCHIATRIST Work Phone: [facility] Work Phone: 07-20-2020 COVID-19 vaccine, fu ll dose (MODERNA) Aminata Podlogar ATHLETIC TRAINER.OUTPATIENT PSYCHIATRIST Work Phone: [facility] Work Phone: 06-22-2020 COVID-19 vaccine, fu ll dose (MODERNA) Aminata Podlogar ATHLETIC TRAINER.OUTPATIENT PSYCHIATRIST Work Phone: [facility] Work Phone: 05-17-2020 zoster vaccine recombinant Aminata Podlogar ATHLETIC TRAINER.[facility] Work Phone: [facility] Work Phone: 04-26-2019 influenza, high dose seasonal, preservative-free Aminata Podlogar ATHLETIC TRAINER.[facility] Work Phone: [facility] 03-05-2018 tetanus and diphther ia toxoids, adsorbed, preservative free, for adult use (5 Lf of tetanus toxoid and 2 Lf of diphtheria toxoid) Aminata Podlogar ATHLETIC TRAINER.[facility] Work Phone: [facility] 12-08-2017 influenza, high dose seasonal, preservative-free Aminata Podlogar ATHLETIC TRAINER.OUTPATIENT PSYCHIATRIST Work Phone: [facility] 09-05-2017 pneumococcal polysaccharide vaccine, 23 valent Aminata Podlogar ATHLETIC TRAINER.OUTPATIENT PSYCHIATRIST Work Phone: [facility] 01-29-2017 influenza, high dose seasonal, preservative-free Aminata Podlogar ATHLETIC TRAINER.OUTPATIENT PSYCHIATRIST Work Phone: [facility] 01-29-2017 pneumococcal conjuga te vaccine, 13 valent Aminata Podlogar ATHLETIC TRAINER.OUTPATIENT PSYCHIATRIST Work Phone: [facility] 12-15-2013 influenza, injectabl e, quadrivalent, contains preservative Aminata Podlogar ATHLETIC TRAINER.OUTPATIENT PSYCHIATRIST Work Phone: [facility] 06-16-2012 pneumococcal polysaccharide vaccine, 23 valent Aminata Podlogar ATHLETIC TRAINER.OUTPATIENT PSYCHIATRIST Work Phone: [facility] Payers Date Payer Category Payer Medicare [id number] 2022 Medicare [id number] 2020 Unknown ANTHEM BLUE CROS S AND BLUE SHIELD ANTHEM MEDIBLUE HMO [id number] 2020-Present [phone] [address] [place] [address] HMO [id number] 2014 Medicaid MEDICAID [facility] MEDICAID [id number] 2014-Present [phone] [address] [place] [address] Medicaid [id number] Social History Date Type Detail Facility Start: 04-28-2017 End: 06-26-2022 Tobacco smoking status NHIS Ex-smoker [facility] End: 03-17-2020 History of tobacco use Current smoker [facility] End: 03-17-2020 History of tobacco use Cigarette Smoker [facility] Start: 04-28-2017 End: 06-26-2022 Tobacco use and exposure Smokeless tobacco non-user [facility] Start: 11-20-2020 End: 12-27-2020 Alcohol intake Current non-drinker of alcohol (finding) [facility] Start: 09-14-2020 History SDOH Alcohol Frequency 1 [facility] Start: 09-14-2020 History SDOH Alcohol Std Drinks 98 [facility] Start: 09-14-2020 History SDOH Social Connections Phone 2 [facility] Start: 09-14-2020 History SDOH Social Connections Get Together 3 [facility] Start: 09-14-2020 History SDOH Social Connections Living 5 [facility] Start: 09-14-2020 Education 10 [facility] Start: 09-07-2020 Tobacco Comment <5 per day, pt reported starting 04/2019 [facility] Start: 1950 Sex Assigned At Female [facility] Start: 06-18-2021 End: 08-19-2022 Exposure to SARS-CoV-2 (event) Not sure [facility] Start: 11-09-2014 Tobacco Comment <5 per day [facility] Start: 05-27-2022 Alcohol intake Lifetime non-d rashard (finding) [facility] Start: 1950 Sex Assigned At Not on file [facility] Start: 06-26-2022 Cigarettes smoked cu rrent (pack per day) - Reported 0.5 [facility] Start: 06-26-2022 End: 08-19-2022 Alcohol intake Ex-drinker (finding) [facility] Start: 06-26-2022 Alcohol Comment former social drinker; none for years [facility] Medical Equipment Procedure Code Equipment Code Equipment Origin al Text Equipment Identifier Dates Stent Carlos 10mm 7 fr 25mm 135cm - [id number] Start: 07-05-2022 Clinical Notes 12-06-2015 to 09-18-2022 Lana Parker MD - 08/19/2022 9:45 AM Evans Parker MD - 07/24/2022 1:45 PM Ginger Caro RN - 07/10/2022 1:47 PM Ginger Caro RN - 07/10/2022 1:47 PM EDT Note Date & Type Note Facility 09-18-2022 Note Patient Outreach (IN [facility]) KATHY PURI ([id number]) 1950 F Date Time Provider Department 09/18/22 CATHI HAYES During your visit today, we recorded the following information about you: Allergies As of Date: 09/18/2022 Noted Allergy Reaction LISINOPRIL 05/31/2019 14 - Other: See Comments Comments: Numbness to tongue Date Reviewed: 12/27/2020 Reviewed by: Yuly Galloway, CT - Fully Assessed Visit Diagnosis:Encounter for screening mammogram for breast cancer [Z12.31] Order(s):[facility] SCREENING [[id number]] Order #: [id number] FUTURE Prescriptions as of 09/23/2022 - clopidogrel (PLAVIX) 75 mg tablet Take 1 tablet by mouth once daily. - amLODIPine (NORVASC) 2.5 mg tablet Take 2.5 mg by mouth once daily. - pantoprazole (PROTONIX) 40 mg grps - traZODone (DESYREL) 100 mg tablet Take 150 mg by mouth daily at bedtime. - albuterol HFA (PROVENTIL HFA, VENTOLIN HFA) 90 mcg/actuation inhaler INHALE 1-2 PUFFS EVERY FOUR HOURS NEEDED FOR DYSPNEA/WHEEZING - amiodarone (PACERONE) 200 mg tablet TAKE 1 TABLET BY MOUTH TWICE DAILY for 2 (TWO) weeks, then TAKE 1 TABLET EVERY DAY thereafter. - potassium chloride 20 mEq TbER Take 1 tablet by mouth twice daily. - ferrous sulfate 325 mg (65 mg iron) tablet Take 325 mg by mouth twice daily with meals. - gabapentin (NEURONTIN) 300 mg capsule Take 1 cap at lunch, 1 cap at dinner and 1-2 caps at bedtime. - busPIRone (BUSPAR) 10 mg tablet Take 1 tablet by mouth three times daily. - dicyclomine (BENTYL) 10 mg capsule Take 1 capsule by mouth before meals and at bedtime. - fluticasone-salmeterol (WIXELA INHUB) 500-50 mcg/dose dsdv Inhale 1 Puff as instructed twice daily. - furosemide (LASIX) 40 mg tablet Take 0.5 tablets by mouth twice daily. Added at recent hospital stay [facility]. - BIPAP Initiate BiPAP @ 9/5 cm of water with humidification. Mask (per patient preference) optional chin strap (if indicated) , filters, tubing, humidifier and lifetime supplies. - metoprolol tartrate, short acting, (LOPRESSOR) 100 mg tablet Take 100 mg by mouth twice daily. - atorvastatin (LIPITOR) 40 mg tablet Take 1 tablet by mouth once daily. - nitroglycerin sublingual (NITROSTAT) 0.4 mg SL tablet Dissolve 1 tablet under the tongue as needed. FOR CHEST PAIN. IF NO RELIEF CALL 911 - isosorbide mononitrate ER (IMDUR) 60 mg 24 hr tablet Take 1 tablet by mouth once daily. - ADVAIR DISKUS 500-50 mcg/dose dsdv Inhale 1 Puff as instructed once daily. - Cholecalciferol, Vitamin D3, (VITAMIN D) 1,000 unit cap Take 1,000 Units by mouth once daily. - ascorbic acid, vitamin C, (VITAMIN C) 500 mg tablet Take 500 mg by mouth once daily. - ALBUTEROL SULFATE (VENTOLIN HFA INHALATION) Inhale 1 Puff as instructed as needed. - Multivitamin capsule Take 1 capsule by mouth once daily. - VITAMIN E, BULK, MISC - acetaminophen (TYLENOL EXTRA STRENGTH) 500 mg tablet Take 500 mg by mouth every 6 hours as needed. - lidocaine (LIDODERM) 5 %(700 mg/patch) Apply 1 Patch as directed every 12 hours. Problem List As Of Date 09/18/2022 Noted Resolved Vulvovaginitis [N76.0] 07/16/2011 01/13/2014 Atrial fibrillation [I48.91] 07/16/2011 Restless leg syndrome [G25.81] 07/16/2011 Hypertension [I10] Heart disease [I51.9] 01/29/2017 Pelvic mass in female [R19.00] 07/23/2011 05/07/2013 PAD (peripheral artery disease) [I73.9] 08/13/2011 History of myocardial infarction [I25.2] 08/15/2011 Ovarian cancer [C56.9] 09/13/2011 05/07/2013 Cellulitis, abdominal wall [L03.311] 09/20/2011 01/29/2017 Personal history of malignant neoplasm of ovary*05/08/2012 Chronic pain [G89.29] 01/15/2013 Lumbar radiculopathy [M54.16] 01/15/2013 DDD (degenerative disc disease), lumbar [M51.36]01/15/2013 Myofascial pain [M79.18] 01/15/2013 03/15/2019 Pelvic pain 05/07/2013 01/02/2016 Urinary frequency [R35.0] 05/07/2013 03/15/2019 Hematuria, microscopic [R31.29] 05/07/2013 03/15/2019 Nocturia [R35.1] 05/07/2013 03/15/2019 S/P coronary artery stent placement [Z95.5] 08/31/2014 Tobacco abuse [Z72.0] 08/31/2014 Family history of ischemic heart disease [Z82.4*08/31/2014 03/15/2019 Dyslipidemia [E78.5] 08/31/2014 Shortness of breath [R06.02] 11/04/2014 03/15/2019 Pain of left lower extremity [M79.605] 12/06/2015 03/15/2019 CAD (coronary artery disease) [I25.10] GERD (gastroesophageal reflux disease) [K21.9] Multiple falls [R29.6] 12/31/2017 Sleep apnea [G47.30] Abdominal aortic aneurysm (AAA) without rupture*09/14/2019 Abnormality of gait [R26.9] 05/16/2020 Neck pain [M54.2] 10/02/2020 Encounter Status:Closed by EDIS PRODUSER on 09/23/22 [facility] 08-19-2022 History of Present illness Narrative 08/19/2022 Kathy Puri 1950 Chief Complaint Patient presents with Post-op EVAR 07/05/2022 / Discuss CTA 08/08/2024 Patient returns for post operative evaluation status post endovascular repair of abdominal aortic aneurysm. The patient denies any unexpected problems since hospital discharge. Her incisions are healing well. She is tolerating PO intake. She notes some pain in her legs however this is bilateral and unchanged since prior to surgery. She underwent her first post-operative CTA and is here to discuss the results. She notes that her PCP recently did lab work and told her there are two things that are not good. She notes she was told to drink lots of water prior to a new lab work. It is unclear if this is related to her kidney's or not. She has plans for repeat lab work at some point but has not yet followed up. No labs are available in chart review or care everywhere as there were performed in [place]. Past Surgical History: Procedure Laterality Date ABDOMINAL AORTIC ANEURYSM REPAIR 07/05/2022 ENDOVASCULAR REPAIR OF ABDOMINAL AORTIC ANEURYSM, OPEN FEMORAL ARTERY EXPOSURE FOR DELIVERY OF ENDOVASCULAR PROSTHESIS BREAST BIOPSY Bilateral neg CORONARY STENT PLACEMENT X10 per pt. HYSTERECTOMY with BSO for CA INSERT / REPLACE / REMOVE PACEMAKER PACEMAKER (HISTORICAL) 2019 STENT INSERTION (HISTORICAL) TONSILLECTOMY Physical Exam: The incisions are healing without evidence of infection. There is a small exposed suture on the lateral aspect of the right femoral incision. Heart rhythm is regular. Abdomen is soft and non-tender. IMAGING: CTA Abdomen and pelvis performed 07/24/2022: Maximal aortic diameter is 5.2 cm. No endoleak visualized. Assessment: Post-operative endovascular repair abdominal aortic aneurysm. Problem List Items Addressed This Visit None Visit Diagnoses Status post endovascular aneurysm repair (EVAR) - Primary Relevant Orders CTA abdomen pelvis angiogram w and/or wo IV contrast Creatinine, Serum Pre-procedure lab exam Relevant Orders Creatinine, Serum Plan for repeat CTA in 6 months. No endoleak was visualized on this exam however completion imaging did show a Type 1A endoleak so close follow up is recommended. Follow up in 6 months followin CTA. Should there be concern for renal dysfunction at the time, will consider Ultrasound imaging. Lana Parker MD Vascular Surgery documented in this encounter [facility] 07-24-2022 History of Present illness Narrative 07/24/2022 Kathy Puri 1950 Chief Complaint Patient presents with Post-op 1st PO EVAR of AAA 07/05/2022 Patient returns for post operative evaluation status post endovascular repair of abdominal aortic aneurysm on 07/05/22 with ovation graft. The patient reports some thigh numbness, especially on the right as well as bruising. She is not eating well however this is secondary to poor appetite and not liking the taste of the foods she is trying to eat. She is having normal, non-bloody bowel movements. She denies abdominal pain. Her back pain that was present post-operatively has resolved. She denies foot and leg pain. She has no wounds. Past Surgical History: Procedure Laterality Date ABDOMINAL AORTIC ANEURYSM REPAIR 07/05/2022 ENDOVASCULAR REPAIR OF ABDOMINAL AORTIC ANEURYSM, OPEN FEMORAL ARTERY EXPOSURE FOR DELIVERY OF ENDOVASCULAR PROSTHESIS BREAST BIOPSY Bilateral neg CORONARY STENT PLACEMENT X10 per pt. HYSTERECTOMY with BSO for CA INSERT / REPLACE / REMOVE PACEMAKER PACEMAKER (HISTORICAL) 2018 STENT INSERTION (HISTORICAL) TONSILLECTOMY Physical Exam: The incision(s) are healing without evidence of infection (bilateral femoral cutdown). Heart rhythm is regular. PT signals present bilaterally. DP signal present on the left. No DP or AT signal present on the right. Abdomen is soft, non-tender. No pulsatile mass appreciated. Assessment: Post-operative EVAR for infrarenal abdominal aortic aneurysm measuring 5.5 cm. Problem List Items Addressed This Visit Circulatory Infrarenal abdominal aortic aneurysm (AAA) without rupture (HCC) - Primary Relevant Orders CTA abdomen pelvis angiogram w and/or wo IV contrast Other Visit Diagnoses Status post endovascular aneurysm repair (EVAR) Relevant Orders CTA abdomen pelvis angiogram w and/or wo IV contrast I reviewed with the patient that normal activities can be resumed as tolerated. She is on ASA, Plavix, and Eliquis (A-fib). She was noted to have a Type 1 endoleak present on completion imaging which was significantly improved but remained present with Palmaz stent placement. All images were reviewed with the patient at today's office visit. Plan for CTA abdomen and pelvis approximately 1 month post-operatively for evaluation of the endograft. Follow up following the CTA to review images and establish surveillance schedule. Lana Parker MD Vascular Surgery documented in this encounter [facility] 07-10-2022 Nurse Note Discharged to home. Instructions given to pt and her sister. Prescriptions filled by meds to beds pharmacy. [facility] 07-10-2022 Nurse Note Discharged to home. Instructions given to pt and her sister. Prescriptions filled by meds to beds pharmacy. Patient states she takes lorazepam every night before bed and asking if she can get it here. I called and clarified with her pharmacy active medication. Dr Ontiveros aware. Per patient request Dr Ontiveros messaged because she states she takes lorazepam at hs. In chair, encouraged incentive spirometer. Patient awakens for assessment. She is sleepy but follows all commands. She answers all questions appropriately. Neuro checks are within normal limits. She is oriented x4. Able to demonstrate use of call light. Bed alarm on for safety. Dr Ontiveros updated. Sister Maia updated on plan of care. paged in regards to patient elevated BP. documented in this encounter [facility] 07-10-2022 Note Vascular Surgery Dis charge Summary Kathy Puri is a 72 y.o. female INPATIENT HOSPITAL SUMMARY: Kathy Puri is a 72 y.o. female was admitted to the hospital on 07/05/2022 5:57 AM for treatment of infrarenal abdominal aortic aneurysm. On the day of admission, a endovascular pair of abdominal aortic aneurysm, open femoral artery exposure was performed. The patient's hospital course was uncomplicated and consisted of physical therapy, incision observation, and a return to normal oral intake. The patient was discharged on 07/10/22 tolerating a diet, moving bowels, and urinating without difficulty. The incisions were clean and intact. The patient was discharged to [facility] in satisfactory condition with instructions to call the office for a follow up appointment. Hospital Problem List: Principal Problem: Infrarenal abdominal aortic aneurysm (AAA) without rupture (HCC) Procedure(s) (LRB): ENDOVASCULAR REPAIR OF ABDOMINAL AORTIC ANEURYSM (N/A) OPEN FEMORAL ARTERY EXPOSURE FOR DELIVERY OF ENDOVASCULAR PROSTHESIS (Bilateral) Discharge Medications: Current Outpatient Medications Medication Instructions acetaminophen (TYLENOL) 500 mg, Oral, Every 6 hours PRN albuterol 108 (90 Base) MCG/ACT inhaler Inhale 1 - 2 puffs by mouth every 4 hours as needed for Dyspnea, wheezing amiodarone (PACERONE) 200 mg, Oral, Daily amLODIPine (NORVASC) 2.5 mg, Oral, Daily ascorbic acid (VITAMIN C) 500 mg, Oral, Daily [START ON 07/11/2022] aspirin 81 mg, Oral, Daily atorvastatin (LIPITOR) 40 mg, Oral, Daily, for cholesterol busPIRone (BUSPAR) 10 mg, Oral, 3 times daily cholecalciferol (VITAMIN D-3) 1,000 Units, Oral, Daily clopidogrel (PLAVIX) 75 mg, Oral, Nightly dicyclomine (Bentyl) 10 MG capsule TAKE 1 CAPSULE BY MOUTH FOUR TIMES DAILY for ibs Eliquis 5 MG tablet TAKE 1 TABLET BY MOUTH TWICE DAILY (blood thinner) ferrous sulfate 325 mg, Oral Fluticasone-Salmeterol 500-50 MCG/ACT aerosol powder 1 puff, Inhalation, 2 times daily furosemide (LASIX) 40 mg, Oral, 2 times daily gabapentin (Neurontin) 300 MG capsule TAKE 1 CAPSULE BY MOUTH IN THE MORNING AND TAKE 2 CAPSULES BY MOUTH AT BEDTIME isosorbide mononitrate ER (Imdur) 60 MG 24 hr tablet TAKE 1 TABLET BY MOUTH DAILY FOR HEART lidocaine (Lidoderm) 5 % patch 1 patch, TransDERmal, 2 times daily LORazepam (ATIVAN) 1 mg, Oral, Nightly metoprolol tartrate (LOPRESSOR) 100 mg, Oral, 2 times daily Multiple Vitamin (MULTIVITAMIN ADULT PO) 1 capsule, Oral, Daily nitroglycerin (Nitrostat) 0.4 MG SL tablet 0.4 mg sublingually every 5 minutes As Needed for Chest Pain oxyCODONE-acetaminophen (Percocet) 5-325 MG tablet 1 tablet, Oral, Every 6 hours PRN pantoprazole (PROTONIX) 40 mg, Oral, Daily potassium chloride CR (K-Tab) 20 MEQ ER tablet 20 mEq, Oral, 2 times daily traZODone (DESYREL) 150 mg, Oral, Nightly Vitamin E 100 units tablet Other Is the patient discharged on ASA? Yes Is the patient discharged on an Antiplatelet other than ASA? Yes Is the patient discharged on an anticoagulant? Yes Is the patient discharged on a statin? Yes [facility] 07-10-2022 Hospital course Narrative Vascular Surgery Discharge Summary Kathy Puri is a 72 y.o. female INPATIENT HOSPITAL SUMMARY: Kathy Puri is a 72 y.o. female was admitted to the hospital on 07/05/2022 5:57 AM for treatment of infrarenal abdominal aortic aneurysm. On the day of admission, a endovascular pair of abdominal aortic aneurysm, open femoral artery exposure was performed. The patient's hospital course was uncomplicated and consisted of physical therapy, incision observation, and a return to normal oral intake. The patient was discharged on 07/10/22 tolerating a diet, moving bowels, and urinating without difficulty. The incisions were clean and intact. The patient was discharged to [facility] in satisfactory condition with instructions to call the office for a follow up appointment. Hospital Problem List: Principal Problem: Infrarenal abdominal aortic aneurysm (AAA) without rupture (HCC) Procedure(s) (LRB): ENDOVASCULAR REPAIR OF ABDOMINAL AORTIC ANEURYSM (N/A) OPEN FEMORAL ARTERY EXPOSURE FOR DELIVERY OF ENDOVASCULAR PROSTHESIS (Bilateral) Discharge Medications: Current Outpatient Medications Medication Instructions acetaminophen (TYLENOL) 500 mg, Oral, Every 6 hours PRN albuterol 108 (90 Base) MCG/ACT inhaler Inhale 1 - 2 puffs by mouth every 4 hours as needed for Dyspnea, wheezing amiodarone (PACERONE) 200 mg, Oral, Daily amLODIPine (NORVASC) 2.5 mg, Oral, Daily ascorbic acid (VITAMIN C) 500 mg, Oral, Daily [START ON 07/11/2022] aspirin 81 mg, Oral, Daily atorvastatin (LIPITOR) 40 mg, Oral, Daily, for cholesterol busPIRone (BUSPAR) 10 mg, Oral, 3 times daily cholecalciferol (VITAMIN D-3) 1,000 Units, Oral, Daily clopidogrel (PLAVIX) 75 mg, Oral, Nightly dicyclomine (Bentyl) 10 MG capsule TAKE 1 CAPSULE BY MOUTH FOUR TIMES DAILY for ibs Eliquis 5 MG tablet TAKE 1 TABLET BY MOUTH TWICE DAILY (blood thinner) ferrous sulfate 325 mg, Oral Fluticasone-Salmeterol 500-50 MCG/ACT aerosol powder 1 puff, Inhalation, 2 times daily furosemide (LASIX) 40 mg, Oral, 2 times daily gabapentin (Neurontin) 300 MG capsule TAKE 1 CAPSULE BY MOUTH IN THE MORNING AND TAKE 2 CAPSULES BY MOUTH AT BEDTIME isosorbide mononitrate ER (Imdur) 60 MG 24 hr tablet TAKE 1 TABLET BY MOUTH DAILY FOR HEART lidocaine (Lidoderm) 5 % patch 1 patch, TransDERmal, 2 times daily LORazepam (ATIVAN) 1 mg, Oral, Nightly metoprolol tartrate (LOPRESSOR) 100 mg, Oral, 2 times daily Multiple Vitamin (MULTIVITAMIN ADULT PO) 1 capsule, Oral, Daily nitroglycerin (Nitrostat) 0.4 MG SL tablet 0.4 mg sublingually every 5 minutes As Needed for Chest Pain oxyCODONE-acetaminophen (Percocet) 5-325 MG tablet 1 tablet, Oral, Every 6 hours PRN pantoprazole (PROTONIX) 40 mg, Oral, Daily potassium chloride CR (K-Tab) 20 MEQ ER tablet 20 mEq, Oral, 2 times daily traZODone (DESYREL) 150 mg, Oral, Nightly Vitamin E 100 units tablet Other Is the patient discharged on ASA? Yes Is the patient discharged on an Antiplatelet other than ASA? Yes Is the patient discharged on an anticoagulant? Yes Is the patient discharged on a statin? Yes documented in this encounter [facility] 07-10-2022 Note Department of Surger y - Progress Note -Vascular PATIENT NAME: Kathy Puri : 1950 ATTENDING PHYSICIAN: Lana Parker MD ADMIT DATE: 07/05/2022 TODAY'S DATE: 07/10/2022 SUBJECTIVE: No acute events overnight. Patient reports she got good sleep overnight, reports she is feeling well. Tolerating diet. Passing flatus. Voiding spontaneously. Has been out of bed working with physical therapy. States back pain slowly resolving. Denies have any nausea/vomiting/fever/chills/ches t pain/shortness of breath. ROS: As above unless otherwise noted OBJECTIVE: VITALS: Patient Vitals for the past 24 hrs: BP Temp Temp src Pulse Resp SpO2 07/10/22 0209 (!) 143/54 (!) 35.9 ?C (96.7 ?F) Temporal 61 20 99 % 07/09/22 2345 (!) 156/71 (!) 35.8 ?C (96.5 ?F) Temporal 61 18 96 % 07/09/222002 (!) 141/53 36.4 ?C (97.6 ?F) Temporal 60 17 94 % 07/09/22 1621 (!) 130/46 36.2 ?C (97.2 ?F) Temporal 61 16 98 % 07/09/22 1300 -- -- -- -- -- 93 % 07/09/22 1120 135/56 36.5 ?C (97.7 ?F) Temporal 60 18 99 % 07/09/22 0957 -- -- -- 60 12 91 % 07/09/22 0752 (!) 186/61 36.9 ?C (98.4 ?F) Temporal 68 18 95 % INTAKE/OUTPUT: I/O last 3 completed shifts: In: 2776.7 [P.O.:1740; IV Piggyback:1036.7] Out: 1750 [Urine:1750] I/O this shift: In: 400 [P.O.:400] Out: 1000 [Urine:1000] Physical Exam Vitals and nursing note reviewed. Constitutional: General: She is awake. She is not in acute distress. Appearance: She is not ill-appearing, toxic-appearing or diaphoretic. HENT: Head: Normocephalic and atraumatic. Right Ear: External ear normal. Left Ear: External ear normal. Nose: Nose normal. No rhinorrhea. Mouth/Throat: Mouth: Mucous membranes are moist. Pharynx: No oropharyngeal exudate or posterior oropharyngeal erythema. Eyes: General: Right eye: No discharge. Left eye: No discharge. Cardiovascular: Rate and Rhythm: Normal rate. Pulses: Carotid pulses are 2+ on the right side and 2+ on the left side. Radial pulses are 2+ on the right side and 2+ on the left side. Femoral pulses are 2+ on the right side and 2+ on the left side. Popliteal pulses are 2+ on the right side and 2+ on the left side. Dorsalis pedis pulses are detected w/ Doppler on the right side and detected w/ Doppler on the left side. Posterior tibial pulses are 1+ on the right side and 1+ on the left side. Pulmonary: Effort: Pulmonary effort is normal. No respiratory distress. Breath sounds: No stridor. No wheezing. Abdominal: General: There is no distension. Palpations: Abdomen is soft. There is no mass or pulsatile mass. Tenderness: There is no abdominal tenderness. There is no guarding or rebound. Musculoskeletal: Cervical back: Normal range of motion. Skin: General: Skin is warm. Capillary Refill: Capillary refill takes less than 2 seconds. Findings: Wound (Surgical incision clean dry and intact on exam, no hematomas appreciated) present. Neurological: General: No focal deficit present. Mental Status: She is alert and oriented to person, place, and time. Mental status is at baseline. GCS: GCS eye subscore is 4. GCS verbal subscore is 5. GCS motor subscore is 6. Sensory: Sensation is intact. Motor: Motor function is intact. Psychiatric: Mood and Affect: Mood normal. Behavior: Behavior normal. Behavior is cooperative. Thought Content: Thought content normal. Judgment: Judgment normal. Data: Recent Labs 07/08/22 0138 07/09/22 0143 07/09/22 0914 07/10/22 0327 WBC 10.0 6.8 -- 5.2 HGB 7.5* 7.1* 8.5 7.0* PLT 156 153 -- 160 Recent Labs 07/08/22 0138 07/09/22 0143 07/10/22 0327 NA 134* 136 136 K 3.5 3.3* 3.7 CL 103 102 103 CO2 26 28 29 BUN 24* 23* 23* CREATININE 1.12* 1.16* 1.26* GLUCOSE 101* 101* 95 No results for input(s): AST, ALT, BILITOT, ALKPHOS in the last 72 hours. No lab exists for component: ALB IMAGING: [place] GUIDANCE OR USE ONLY - NON RESULTABLE Result Date: 07/05/2022 There is no interpretation needed for this exam. Current Inpatient Medications amiodarone, 200 mg, Oral, Daily amLODIPine, 2.5 mg, Oral, Daily apixaban, 5 mg, Oral, BID aspirin, 81 mg, Oral, Daily atorvastatin, 40 mg, Oral, Daily busPIRone, 10 mg, Oral, TID clopidogrel, 75 mg, Oral, Nightly furosemide, 40 mg, Oral, BID gabapentin, 300 mg, Oral, BID isosorbide mononitrate ER, 60 mg, Oral, Daily lactated ringers, 500 mL, IntraVENous, Once metoprolol tartrate, 100 mg, Oral, BID Multiple Vitamins, 1 tablet, Oral, Daily pantoprazole, 40 mg, Oral, Daily potassium chloride CR, 20 mEq, Oral, BID sodium chloride 0.9%, 10 mL, IntraVENous, 2 times per day traZODone, 150 mg, Oral, Nightly PRN medications: albuterol, hydrALAZINE, [DISCONTINUED] HYDROmorphone OR HYDROmorphone, labetalol, LORazepam, melatonin, ondansetron ODT OR ondansetron, oxyCODONE, sodium chloride, sodium chloride 0.9% ASSESSMENT AND PLAN: Principal Problem: Infrarenal abdomina (more content not included)... [facility] 07-10-2022 History of Present illness Narrative Images from the original note were not included. Department of Surgery - Progress Note -Vascular PATIENT NAME: Kathy Puri : 1950 ATTENDING PHYSICIAN: Lana Parker MD ADMIT DATE: 07/05/2022 TODAY'S DATE: 07/10/2022 SUBJECTIVE: No acute events overnight. Patient reports she got good sleep overnight, reports she is feeling well. Tolerating diet. Passing flatus. Voiding spontaneously. Has been out of bed working with physical therapy. States back pain slowly resolving. Denies have any nausea/vomiting/fever/chills/ches t pain/shortness of breath. ROS: As above unless otherwise noted OBJECTIVE: VITALS: Patient Vitals for the past 24 hrs: BP Temp Temp src Pulse Resp SpO2 07/10/22 0209 (!) 143/54 (!) 35.9 C (96.7 F) Temporal 61 20 99 % 07/09/22 2345 (!) 156/71 (!) 35.8 C (96.5 F) Temporal 61 18 96 % 07/09/222002 (!) 141/53 36.4 C (97.6 F) Temporal 60 17 94 % 07/09/22 1621 (!) 130/46 36.2 C (97.2 F) Temporal 61 16 98 % 07/09/22 1300 -- -- -- -- -- 93 % 07/09/22 1120 135/56 36.5 C (97.7 F) Temporal 60 18 99 % 07/09/22 0957 -- -- -- 60 12 91 % 07/09/22 0752 (!) 186/61 36.9 C (98.4 F) Temporal 68 18 95 % INTAKE/OUTPUT: I/O last 3 completed shifts: In: 2776.7 [P.O.:1740; IV Piggyback:1036.7] Out: 1750 [Urine:1750] I/O this shift: In: 400 [P.O.:400] Out: 1000 [Urine:1000] Physical Exam Vitals and nursing note reviewed. Constitutional: General: She is awake. She is not in acute distress. Appearance: She is not ill-appearing, toxic-appearing or diaphoretic. HENT: Head: Normocephalic and atraumatic. Right Ear: External ear normal. Left Ear: External ear normal. Nose: Nose normal. No rhinorrhea. Mouth/Throat: Mouth: Mucous membranes are moist. Pharynx: No oropharyngeal exudate or posterior oropharyngeal erythema. Eyes: General: Right eye: No discharge. Left eye: No discharge. Cardiovascular: Rate and Rhythm: Normal rate. Pulses: Carotid pulses are 2+ on the right side and 2+ on the left side. Radial pulses are 2+ on the right side and 2+ on the left side. Femoral pulses are 2+ on the right side and 2+ on the left side. Popliteal pulses are 2+ on the right side and 2+ on the left side. Dorsalis pedis pulses are detected w/ Doppler on the right side and detected w/ Doppler on the left side. Posterior tibial pulses are 1+ on the right side and 1+ on the left side. Pulmonary: Effort: Pulmonary effort is normal. No respiratory distress. Breath sounds: No stridor. No wheezing. Abdominal: General: There is no distension. Palpations: Abdomen is soft. There is no mass or pulsatile mass. Tenderness: There is no abdominal tenderness. There is no guarding or rebound. Musculoskeletal: Cervical back: Normal range of motion. Skin: General: Skin is warm. Capillary Refill: Capillary refill takes less than 2 seconds. Findings: Wound (Surgical incision clean dry and intact on exam, no hematomas appreciated) present. Neurological: General: No focal deficit present. Mental Status: She is alert and oriented to person, place, and time. Mental status is at baseline. GCS: GCS eye subscore is 4. GCS verbal subscore is 5. GCS motor subscore is 6. Sensory: Sensation is intact. Motor: Motor function is intact. Psychiatric: Mood and Affect: Mood normal. Behavior: Behavior normal. Behavior is cooperative. Thought Content: Thought content normal. Judgment: Judgment normal. Data: Recent Labs 07/08/22 0138 07/09/22 0143 07/09/22 0914 07/10/22 0327 WBC 10.0 6.8 -- 5.2 HGB 7.5* 7.1* 8.5 7.0* PLT 156 153 -- 160 Recent Labs 07/08/22 0138 07/09/22 0143 07/10/22 0327 NA 134* 136 136 K 3.5 3.3* 3.7 CL 103 102 103 CO2 26 28 29 BUN 24* 23* 23* CREATININE 1.12* 1.16* 1.26* GLUCOSE 101* 101* 95 No results for input(s): AST, ALT, BILITOT, ALKPHOS in the last 72 hours. No lab exists for component: ALB IMAGING: [place] GUIDANCE OR USE ONLY - NON RESULTABLE Result Date: 07/05/2022 There is no interpretation needed for this exam. Current Inpatient Medications amiodarone, 200 mg, Oral, Daily amLODIPine, 2.5 mg, Oral, Daily apixaban, 5 mg, Oral, BID aspirin, 81 mg, Oral, Daily atorvastatin, 40 mg, Oral, Daily busPIRone, 10 mg, Oral, TID clopidogrel, 75 mg, Oral, Nightly furosemide, 40 mg, Oral, BID gabapentin, 300 mg, Oral, BID isosorbide mononitrate ER, 60 mg, Oral, Daily lactated ringers, 500 mL, IntraVENous, Once metoprolol tartrate, 100 mg, Oral, BID Multiple Vitamins, 1 tablet, Oral, Daily pantoprazole, 40 mg, Oral, Daily potassium chloride CR, 20 mEq, Oral, BID sodium chloride 0.9%, 10 mL, IntraVENous, 2 times per day traZODone, 150 mg, Oral, Nightly PRN medications: albuterol, hydrALAZINE, [DISCONTINUED] HYDROmorphone OR HYDROmorphone, labetalol, LORazepam, melatonin, ondansetron ODT OR ondansetron, oxyCODONE, sodium chloride, sodium chloride 0.9% ASSESSMENT AND PLAN: Principal Problem: Infrarenal abdominal aortic aneurysm (AAA) without rupture (HCC) Kathy Puri is a 72 y.o. female status post EVAR. OR date 07/05/2022 Much improved from yesterday morning, delirious episode appears to have resolved All imaging/test were negative Progressing well postoperatively Continue home anti-hypertensives and lasix Ambulation as tolerated Diet as tolerated OOB/IS encouraged Encouraged to work with PT - home w/assist PRN Disposition: Home likely later today Continue Eliquis, aspirin, atorvastatin, clopidogrel, as needed analgesics/antiemetics/BP as needed meds Will discuss with Dr. Nuñez NG / iogyn Secure Chat: From 6a-6p (-s): iogyn Secure Chat (FIRST) or Pager above (EMERGENT/Second) From 6p-6a (-): Find resident provider under [facility] Surgery - General - Surgical ICU Patients: Select 'ACH GEN SURG Night Float ICU RES' or Page [phone] - Surgical Floor Patients: Select 'ACH GEN SURG Night Float Floor RES' or Page [phone] Disclaimers: INFORMED CONSENT: The nature and purpose of the proposed treatment and/or procedure have been discussed. The risks and benefits of the proposed treatment or procedures have been reviewed. Alternatives have been reviewed in addition to the risks and benefits of not receiving treatments or undergoing procedures. Pursuant to this discussion, the patient agrees to undergo the proposed treatment or procedure. Captured images seen in this note are not a substitute for a comprehensive interpretation of the entire data set as reflected by the interpreting physician with regard to radiology, echocardiography, and other diagnostic images. This note may have been dictated using [employer] Practice Edition and/or [employer] Voice Recognition Feature. The document was proofread; however, unrecognized voice recognition production control supervisor errors may be present Physical Therapy Facility/Department: 1C Physical Therapy Daily Treatment Note NAME: Kathy Puri : 1950 Date of Service: 07/09/2022 Discharge Recommendations: Home with assist PRN PT Equipment Recommendations Equipment Needed: No Assessment Requires PT Follow-Up: Yes Assessment: Pt in chair and agreeable to Tx. Unable to pause IV at this time; could not attempt stairs. Pt ambulated one lap around unit and began to c/o hip pain bilaterally. Pt remained CGA for 200ft ambulation and transfers from chair, secondary to x1 LOB final 50ft of ambulation that was self corrected + Min-A from SPTA. Pt should progress to home with assist PRN at disch. Performance Deficits/Impairments: Decreased functional mobility , Decreased endurance, Increased pain Treatment Diagnosis: decreased functional independence, pain. Decision Making: Low Complexity Patient Diagnosis(es): The encounter diagnosis was Infrarenal abdominal aortic aneurysm (AAA) without rupture. has a past medical history of Anemia, Anxiety, Arrhythmia, Arthritis, Cancer (CMS/HCC) ([facility]), CHF (congestive heart failure) (CMS/HCC) ([facility]), CKD (chronic kidney disease), COPD (chronic obstructive pulmonary disease) ([facility]), Depression, GERD (gastroesophageal reflux disease), Heart valve disease, Hyperlipidemia, Hypertension, Irritable bowel syndrome, Joint pain, Myocardial infarction (CMS/HCC) ([facility]), Pacemaker, PAD (peripheral artery disease) ([facility]), and Sleep apnea. has a past surgical history that includes stent insertion (historical); pacemaker (historical) (2018); Hysterectomy; Breast biopsy (Bilateral); Insert / replace / remove pacemaker; Coronary stent placement; Tonsillectomy; and Abdominal aortic aneurysm repair (07/05/2022). Restrictions Restrictions/Precautions Restrictions/Precautions: General Precautions Implants present? : (chronic pacemaker) Position Activity Restriction Other position/activity restrictions: She moves slow, needs little assist,no device. Vision/Hearing Subjective General Chart Reviewed: Yes Patient Assessed for Rehabilitation Services: Yes Additional Pertinent Hx: She complains of incisional soreness/tenderness Response To Previous Treatment: Patient with no complaints from previous session. Family / Caregiver Present: No Diagnosis: s/p repair of AAA without rupture Follows Commands: Within Functional Limits General Comment Comments: SPTA wore gloves this Tx Subjective Subjective: Pt reports I feel good . Agreeable to ambulation around unit and returning to chair. C/o Bilat hip tightness post ambulation. Patient Stated Goal: To go home and heal from this surgery, get back to herself. Cognition/Orientation Overall Cognitive Status: WFL Overall Orientation Status: Within Functional Limits Objective Transfers Sit to Stand: Contact guard assistance Stand to sit: Contact guard assistance Comment: x1 chair; CGA for safety Ambulation Ambulation: Yes Ambulation 1 Surface 1: Level tile Device 1: No device Other Apparatus 1: (PIV, Tele) Assistance 1: Contact guard Quality of Gait 1: slow kenisha, No LOB Quality of Gait Comment 1: slow kenisha; x1 LOB self corrected + min-a from SPTA Distance (ft) 1: 200ft Balance Posture: Good Sitting - Static: Good Sitting - Dynamic: Good Standing - Static: Good, - Standing - Dynamic: Good, - Plan Times per Week: 5 Times per Day: Daily Plan Weeks: 2 Current Treatment Recommendations: Strengthening, Functional Mobility Training, Transfer Training, Stair training, Gait Training Plan Comment: Cont PT POC Safety Safety Devices Safety Devices in Place: Yes Type of Devices: Nurse notified, Call light within reach, Left in chair Restraints Restraints Initially in Place: No Outcomes Score AM-PAC Score AM-PAC Inpatient Mobility Raw Score: 17 Mobility Inpatient [facility] G-Code Modifier: CK Goals Encounter Problems Encounter Problems (Active) Mobility Patient will ambulate 200 feet with independence and no assistive device in order to improve safety and independence with mobility. (Progressing) Start: 07/08/22 Patient will ascend and descend 7 stairs with one railing and modified independence in order to safely negotiate home. (Not Addressed) Start: 07/08/22 Pain - Adult Transfers Patient will perform bed mobility with independence in order to improve independence and prepare for out of bed mobility. (Not Addressed) Start: 07/08/22 Patient will complete functional transfer with no assistive device with independence in order to prepare for ambulation. (Progressing) Start: 07/08/22 Education Education Given To: Patient Education Provided: PT Role, Plan of Care, Goals Education Method: Verbal Barriers to Learning: None Education Outcome: Verbalized understanding Therapy Time Individual Co-treatment Time In 1521 Time Out 1544 Minutes 23 Timed Code Treatment Minutes: 23 Minutes (FAx1; GTx1) Katya Richardson, SPTA Antonio Cedeno, EDUCATIONAL DIRECTOR Patient re-evaluated at bedside. She recalls the events of the morning and apologizes - she agrees that she feels that her behavior may have been multifactorial but related to being hospitalized, recent surgery, medications, etc. She is alert and oriented, tolerated lunch, has been ambulatory. She is eager for home-going if able. CT head WNL, ABG largely unconcerning, as well as blood glucose and UA. Will discuss potential PM discharge with Dr. Parker. Department of Surgery #[id number] Images from the original note were not included. Department of Surgery - Progress Note -Vascular PATIENT NAME: Kathy Puri : 1950 ATTENDING PHYSICIAN: Lana Parker MD ADMIT DATE: 07/05/2022 TODAY'S DATE: 07/09/2022 SUBJECTIVE: NAEON; however, on AM rounds, patient is difficult to arouse. With very strong stimulation she is able to tell us her name and lashes out. With very strong stimulation she is able to follow commands. She was not recently medicated with any narcotics. Labs and vitals have been stable. This morning she was also covered in her own urine despite diaper being in place. ROS: As above unless otherwise noted OBJECTIVE: VITALS: Patient Vitals for the past 24 hrs: BP Temp Temp src Pulse Resp SpO2 07/09/22 0752 (!) 186/61 36.9 C (98.4 F) Temporal 68 18 95 % 07/09/22 0355 (!) 132/48 36.2 C (97.1 F) Temporal 62 16 -- 07/09/22 0145 (!) 177/43 -- -- 63 13 -- 07/09/22 0123 (!) 158/54 -- -- 62 -- -- 07/09/22 0015 (!) 150/58 -- -- 61 15 -- 07/09/22 0000 -- -- -- 60 17 -- 07/08/22 2300 -- -- -- 62 15 -- 07/08/22 2233 (!) 149/53 36 C (96.8 F) Temporal 61 12 95 % 07/08/222002 (!) 160/60 (!) 35.9 C (96.6 F) Temporal 61 17 98 % 07/08/22 1537 137/50 36.3 C (97.4 F) Temporal 60 20 96 % 07/08/22 1108 -- -- -- 60 18 -- 07/08/22 1107 (!) 128/48 36.1 C (97 F) Temporal 60 -- 91 % 07/08/22 1018 (!) 135/42 -- -- 60 12 -- 07/08/22 0838 (!) 167/54 36.3 C (97.3 F) Temporal 65 16 98 % 07/08/22 0811 (!) 167/54 -- -- -- -- -- INTAKE/OUTPUT: I/O last 3 completed shifts: In: 800 [P.O.:800] Out: 950 [Urine:950] No intake/output data recorded. Physical Exam Vitals and nursing note reviewed. Constitutional: General: She is awake. She is not in acute distress. Appearance: She is not ill-appearing, toxic-appearing or diaphoretic. Comments: She is more delirious and difficult to arouse HENT: Head: Normocephalic and atraumatic. Right Ear: External ear normal. Left Ear: External ear normal. Nose: Nose normal. No rhinorrhea. Mouth/Throat: Mouth: Mucous membranes are moist. Pharynx: No oropharyngeal exudate or posterior oropharyngeal erythema. Eyes: General: Right eye: No discharge. Left eye: No discharge. Cardiovascular: Rate and Rhythm: Normal rate. Pulses: Carotid pulses are 2+ on the right side and 2+ on the left side. Radial pulses are 2+ on the right side and 2+ on the left side. Femoral pulses are 2+ on the right side and 2+ on the left side. Popliteal pulses are 2+ on the right side and 2+ on the left side. Dorsalis pedis pulses are detected w/ Doppler on the right side and detected w/ Doppler on the left side. Posterior tibial pulses are 1+ on the right side and 1+ on the left side. Pulmonary: Effort: Pulmonary effort is normal. No respiratory distress. Breath sounds: No stridor. No wheezing. Abdominal: General: There is no distension. Palpations: Abdomen is soft. There is no mass or pulsatile mass. Tenderness: There is no abdominal tenderness. There is no guarding or rebound. Musculoskeletal: Cervical back: Normal range of motion. Skin: General: Skin is warm. Capillary Refill: Capillary refill takes less than 2 seconds. Findings: Wound (Surgical incision clean dry and intact on exam, no hematomas appreciated) present. Neurological: General: No focal deficit present. Mental Status: She is alert. GCS: GCS eye subscore is 4. GCS verbal subscore is 5. GCS motor subscore is 6. Sensory: Sensation is intact. Motor: Motor function is intact. Comments: She is more delirious and difficult to arouse Psychiatric: Behavior: Behavior is cooperative. Comments: She is more delirious and difficult to arouse Data: Recent Labs 07/07/22 0126 07/08/22 0138 07/09/22 0143 WBC 11.4* 10.0 6.8 HGB 8.6* 7.5* 7.1* PLT 168 156 153 Recent Labs 07/06/22 1309 07/07/22 0126 07/08/22 0138 07/09/22 0143 NA -- 136 134* 136 K 5.0 4.5 3.5 3.3* CL -- 106 103 102 CO2 -- 26 26 28 BUN -- 22* 24* 23* CREATININE -- 0.95 1.12* 1.16* GLUCOSE -- 115* 101* 101* No results for input(s): AST, ALT, BILITOT, ALKPHOS in the last 72 hours. No lab exists for component: ALB IMAGING: FL GUIDANCE OR USE ONLY - NON RESULTABLE Result Date: 07/05/2022 There is no interpretation needed for this exam. Current Inpatient Medications amiodarone, 200 mg, Oral, Daily amLODIPine, 2.5 mg, Oral, Daily apixaban, 5 mg, Oral, BID aspirin, 81 mg, Oral, Daily atorvastatin, 40 mg, Oral, Daily busPIRone, 10 mg, Oral, TID clopidogrel, 75 mg, Oral, Nightly furosemide, 40 mg, Oral, BID gabapentin, 300 mg, Oral, BID isosorbide mononitrate ER, 60 mg, Oral, Daily metoprolol tartrate, 100 mg, Oral, BID Multiple Vitamins, 1 tablet, Oral, Daily pantoprazole, 40 mg, Oral, Daily potassium chloride (KCl) in 500 mL IVPB (peripheral line), 40 mEq, IntraVENous, Once potassium chloride CR, 20 mEq, Oral, BID sodium chloride 0.9%, 10 mL, IntraVENous, 2 times per day traZODone, 150 mg, Oral, Nightly PRN medications: albuterol, hydrALAZINE, [DISCONTINUED] HYDROmorphone OR HYDROmorphone, labetalol, melatonin, ondansetron ODT OR ondansetron, oxyCODONE, sodium chloride, sodium chloride 0.9% ASSESSMENT AND PLAN: Principal Problem: Infrarenal abdominal aortic aneurysm (AAA) without rupture (HCC) Kathy Puri is a 72 y.o. female status post EVAR. OR date 07/05/2022 Suspect aforementioned acute changes in mentation today related to hospital delirium; however, broad differential for now. Will need further workup. I do not feel that these changes represent a more serious operative or post-operative complication at this time. CT head UA ABG Continue home anti-hypertensives and lasix Ambulation as tolerated Diet as tolerated OOB/IS encouraged Encouraged to work with PT - home w/assist PRN Disposition: Home pending improvements in suspected delirium, further workup Continue Eliquis, aspirin, atorvastatin, clopidogrel, as needed analgesics/antiemetics/BP as needed meds Will discuss with Dr. Parker NG / iogyn Secure Chat: From 6a-6p (-s): Epic Secure Chat (FIRST) or Pager above (EMERGENT/Second) From 6p-6a (-s): Find resident provider under [facility] Surgery - General - Surgical ICU Patients: Select 'ACH GEN SURG Night Float ICU RES' or Page [phone] - Surgical Floor Patients: Select 'ACH GEN SURG Night Float Floor RES' or Page [phone] Disclaimers: INFORMED CONSENT: The nature and purpose of the proposed treatment and/or procedure have been discussed. The risks and benefits of the proposed treatment or procedures have been reviewed. Alternatives have been reviewed in addition to the risks and benefits of not receiving treatments or undergoing procedures. Pursuant to this discussion, the patient agrees to undergo the proposed treatment or procedure. Captured images seen in this note are not a substitute for a comprehensive interpretation of the entire data set as reflected by the interpreting physician with regard to radiology, echocardiography, and other diagnostic images. This note may have been dictated using [employer] Practice Edition and/or [employer]er Voice Recognition Feature. The document was proofread; however, unrecognized voice recognition production control supervisor errors may be present Associated attestation - Lana Parker MD - 07/09/2022 3:56 PM EDT I saw and evaluated the patient. I agree with the findings and plan of care as documented in the resident s note unless otherwise noted below. Morning lethargy noted. On exam this afternoon she is doing well without concerns. Femoral incisions are c/d/I. No evidence of swelling or hematoma. DP and PT signals present bilaterally. Creatinine slightly elevated however patient had elevated creatinine on lab testing performed 13 days ago so this may be within her normal limits. Urine output good. Given this mornings lethargy, will watch overnight one more day. Anticipate discharge home tomorrow. Physical Therapy 1C Physical Therapy Initial Evaluation NAME: Kathy Puri : 1950 Date of Service: 07/08/2022 Discharge Recommendations: Home with assist PRN PT Equipment Recommendations Equipment Needed: No Assessment Requires PT Follow-Up: Yes Assessment: Kathy Puri was admitted with AAA without rupture, is now s/p repair. She was up in the chair at onset and end of this session. She ambulated 200' around the unit slowly , without a device. She is pleasant and cooperative with therapy. She lives in a house; her 14 yr. old grandson lives with her. 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 She will have assistance from her mother or her sister when she goes home. Recommend home with assist upon discharge. Performance Deficits/Impairments: Decreased functional mobility , Decreased endurance, Increased pain Treatment Diagnosis: decreased functional independence, pain. Decision Making: Low Complexity Activity Tolerance Activity Tolerance: Patient limited by endurance, Patient limited by pain Patient Diagnosis(es): The encounter diagnosis was Infrarenal abdominal aortic aneurysm (AAA) without rupture. has a past medical history of Anemia, Anxiety, Arrhythmia, Arthritis, Cancer ([facility]/HCC) ([facility]), CHF (congestive heart failure) (CMS/HCC) ([facility]), CKD (chronic kidney disease), COPD (chronic obstructive pulmonary disease) ([facility]), Depression, GERD (gastroesophageal reflux disease), Heart valve disease, Hyperlipidemia, Hypertension, Irritable bowel syndrome, Joint pain, Myocardial infarction (CMS/HCC) ([facility]), Pacemaker, PAD (peripheral artery disease) ([facility]), and Sleep apnea. has a past surgical history that includes stent insertion (historical); pacemaker (historical) (2018); Hysterectomy; Breast biopsy (Bilateral); Insert / replace / remove pacemaker; Coronary stent placement; Tonsillectomy; and Abdominal aortic aneurysm repair (07/05/2022). Restrictions Restrictions/Precautions Restrictions/Precautions: General Precautions Implants present? : (chronic pacemaker) Position Activity Restriction Other position/activity restrictions: She moves slow, needs little assist,no device. Vision/Hearing Vision: Within Functional Limits Hearing: Functional/adequate for paticipation in therapy Cognition/Orientation Overall Cognitive Status: WFL Overall Orientation Status: Within Functional Limits Subjective General Chart Reviewed: Yes Patient Assessed for Rehabilitation Services: Yes Additional Pertinent Hx: She complains of incisional soreness/tenderness Response To Previous Treatment: Not applicable Family / Caregiver Present: No Diagnosis: s/p repair of AAA without rupture Follows Commands: Within Functional Limits General Comment Comments: She was up in the chair at onset and end of session. She is pleasant and cooperative. Subjective Subjective: Pt is willing to ambulate in halls with PT. Patient Stated Goal: To go home and heal from this surgery, get back to herself. 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 Objective Observation/Palpation Posture: Good Observation: She stated she felt better after ambulating in the halls this morning. AROM RLE (degrees) RLE AROM: WFL AROM LLE (degrees) LLE AROM : WFL Strength RLE Comment: 4/5 Strength LLE Comment: 4/5 Tone RLE RLE Tone: (lightly deconditioned) Tone LLE LLE Tone: (lightly deconditioned) Coordination Rapid Alternating Movements: Normal Bed mobility Bridging: Unable to assess Rolling to Left: Unable to assess Transfers Sit to Stand: Contact guard assistance Stand to sit: Contact guard assistance Bed to Chair: Minimal assistance Ambulation Ambulation: Yes Ambulation 1 Surface 1: Level tile Device 1: No device Assistance 1: Contact guard Quality of Gait 1: slow kenisha Distance (ft) 1: 200' Balance Posture: Good Sitting - Static: Good Sitting - Dynamic: Good Standing - Static: Good, - Standing - Dynamic: Good, - Other exercises Other exercises?: Yes Other exercises 1: IS x 10 to [id number] ml Plan Times per Week: 5 Times per Day: Daily Plan Weeks: 2 Current Treatment Recommendations: Strengthening, Functional Mobility Training, Transfer Training, Stair training, Gait Training Safety Safety Devices Safety Devices in Place: Yes Type of Devices: Nurse notified, Call light within reach, Left in chair Restraints Restraints Initially in Place: No Outcomes Score AM-PAC Score AM-PAC Inpatient Mobility Raw Score: 17 Mobility Inpatient [facility] G-Code Modifier: CK Goals Encounter Problems Encounter Problems (Active) Mobility Patient will ambulate 200 feet with independence and no assistive device in order to improve safety and independence with mobility. Start: 07/08/22 Patient will ascend and descend 7 stairs with one railing and modified independence in order to safely negotiate home. Start: 07/08/22 Pain - Adult Transfers Patient will perform bed mobility with independence in order to improve independence and prepare for out of bed mobility. Start: 07/08/22 Patient will complete functional transfer with no assistive device with independence in order to prepare for ambulation. Start: 07/08/22 Education Education Given To: Patient Education Provided: PT Role, Plan of Care, Goals Education Method: Verbal Barriers to Learning: None Education Outcome: Verbalized understanding Therapy Time Individual Co-treatment Time In 0830 Time Out 0855 Minutes 25 Timed Code Treatment Minutes: 11 Minutes Rosmery Beck PT Images from the original note were not included. Department of Surgery - Progress Note -Vascular PATIENT NAME: Kathy Puri : 1950 ATTENDING PHYSICIAN: Lana Parker MD ADMIT DATE: 07/05/2022 TODAY'S DATE: 07/08/2022 SUBJECTIVE: Overnight: Patient noted to go into a flutter, quickly resolved. Patient continues to report intermittent back pain, which she contributes to the stent placement, controlled with current pain regimen. Denies have any nausea/vomiting/fever/chills/ches t pain/shortness of breath. Vomited spontaneously. Out of bed yesterday working with PT. Tolerating diet ROS: As above unless otherwise noted OBJECTIVE: VITALS: Patient Vitals for the past 24 hrs: BP Temp Temp src Pulse Resp SpO2 Height 07/08/22 0438 102/56 -- -- 68 -- -- -- 07/08/22 0330 (!) 150/60 36.7 C (98 F) Temporal 68 16 92 % -- 07/07/22 2300 -- -- -- -- -- 91 % -- 07/07/22 2233 (!) 151/73 36.5 C (97.7 F) Temporal 64 13 (!) 89 % -- 07/07/22 1914 (!) 127/49 36.4 C (97.6 F) Temporal 63 17 91 % -- 07/07/22 1750 (!) 146/69 -- -- (!) 127 18 -- -- 07/07/22 1622 136/64 -- -- (!) 130 18 -- -- 07/07/22 1522 95/51 36.1 C (97 F) Temporal (!) 127 17 95 % -- 07/07/22 1044 -- (!) 35.3 C (95.5 F) Temporal 60 -- 92 % -- 07/07/22 1040 -- -- -- -- -- -- 5' (1.524 m) 07/07/22 1012 (!) 161/41 -- -- -- -- -- -- 07/07/22 0730 (!) 156/60 36.1 C (96.9 F) Temporal -- -- -- -- INTAKE/OUTPUT: No intake/output data recorded. No intake/output data recorded. Physical Exam Vitals and nursing note reviewed. Constitutional: General: She is awake. She is not in acute distress. Appearance: She is not ill-appearing, toxic-appearing or diaphoretic. HENT: Head: Normocephalic and atraumatic. Right Ear: External ear normal. Left Ear: External ear normal. Nose: Nose normal. No rhinorrhea. Mouth/Throat: Mouth: Mucous membranes are moist. Pharynx: No oropharyngeal exudate or posterior oropharyngeal erythema. Eyes: General: Right eye: No discharge. Left eye: No discharge. Cardiovascular: Rate and Rhythm: Normal rate. Pulses: Carotid pulses are 2+ on the right side and 2+ on the left side. Radial pulses are 2+ on the right side and 2+ on the left side. Femoral pulses are 2+ on the right side and 2+ on the left side. Popliteal pulses are 2+ on the right side and 2+ on the left side. Dorsalis pedis pulses are detected w/ Doppler on the right side and detected w/ Doppler on the left side. Posterior tibial pulses are 1+ on the right side and 1+ on the left side. Pulmonary: Effort: Pulmonary effort is normal. No respiratory distress. Breath sounds: No stridor. No wheezing. Abdominal: General: There is no distension. Palpations: Abdomen is soft. There is no mass or pulsatile mass. Tenderness: There is no abdominal tenderness. There is no guarding or rebound. Musculoskeletal: Cervical back: Normal range of motion. Skin: General: Skin is warm. Capillary Refill: Capillary refill takes less than 2 seconds. Findings: Wound (Surgical incision clean dry and intact on exam, no hematomas appreciated) present. Neurological: General: No focal deficit present. Mental Status: She is alert and oriented to person, place, and time. Mental status is at baseline. GCS: GCS eye subscore is 4. GCS verbal subscore is 5. GCS motor subscore is 6. Sensory: Sensation is intact. Motor: Motor function is intact. Psychiatric: Mood and Affect: Mood normal. Behavior: Behavior normal. Behavior is cooperative. Thought Content: Thought content normal. Judgment: Judgment normal. Data: Recent Labs 07/06/22 0040 07/06/22 0211 07/07/22 0126 07/08/22 0138 WBC 10.0 -- 11.4* 10.0 HGB 7.0* 9.7* 8.6* 7.5* PLT 111* -- 168 156 Recent Labs 07/06/22 0040 07/06/22 1309 07/07/22 0126 07/08/22 0138 NA 140 -- 136 134* K 2.9* 5.0 4.5 3.5 CL 116* -- 106 103 CO2 18* -- 26 26 BUN 17 -- 22* 24* CREATININE 0.76 -- 0.95 1.12* GLUCOSE 91 -- 115* 101* No results for input(s): AST, ALT, BILITOT, ALKPHOS in the last 72 hours. No lab exists for component: ALB IMAGING: FL GUIDANCE OR USE ONLY - NON RESULTABLE Result Date: 07/05/2022 There is no interpretation needed for this exam. Current Inpatient Medications amiodarone, 200 mg, Oral, Daily amLODIPine, 2.5 mg, Oral, Daily apixaban, 5 mg, Oral, BID aspirin, 81 mg, Oral, Daily atorvastatin, 40 mg, Oral, Daily busPIRone, 10 mg, Oral, TID clopidogrel, 75 mg, Oral, Nightly furosemide, 40 mg, Oral, BID gabapentin, 300 mg, Oral, BID isosorbide mononitrate ER, 60 mg, Oral, Daily metoprolol tartrate, 100 mg, Oral, BID Multiple Vitamins, 1 tablet, Oral, Daily pantoprazole, 40 mg, Oral, Daily potassium chloride CR, 20 mEq, Oral, BID sodium chloride 0.9%, 10 mL, IntraVENous, 2 times per day traZODone, 150 mg, Oral, Nightly PRN medications: albuterol, hydrALAZINE, [DISCONTINUED] HYDROmorphone OR HYDROmorphone, labetalol, ondansetron ODT OR ondansetron, oxyCODONE, sodium chloride, sodium chloride 0.9% ASSESSMENT AND PLAN: Principal Problem: Infrarenal abdominal aortic aneurysm (AAA) without rupture (HCC) Kathy Puri is a 72 y.o. female status post EVAR. OR date 07/05/2022 Progressing well A flutter overnight, quickly resolved Hypertensive overnight, as needed BP meds administered Home antihypertensives restarted Mild leukocytosis, now resolved Ambulation as tolerated Diet as tolerated OOB/IS encouraged Encouraged to work with PT Disposition: 24-48 hours Continue Eliquis, aspirin, atorvastatin, clopidogrel, as needed analgesics/antiemetics/BP as needed meds Restarted home Lasix yesterday Will discuss with Dr. Parker Raji Ontiveros M.D. Department of Surgery Pager: [phone] PAGING / iogyn Secure Chat: From 6a-6p (-s): iogyn Secure Chat (FIRST) or Pager above (EMERGENT/Second) From 6p- (-): Find resident provider under [facility] Surgery - General - Surgical ICU Patients: Select 'ACH GEN SURG Night Float ICU RES' or Page [phone] - Surgical Floor Patients: Select 'ACH GEN SURG Night Float Floor RES' or Page [phone] Disclaimers: INFORMED CONSENT: The nature and purpose of the proposed treatment and/or procedure have been discussed. The risks and benefits of the proposed treatment or procedures have been reviewed. Alternatives have been reviewed in addition to the risks and benefits of not receiving treatments or undergoing procedures. Pursuant to this discussion, the patient agrees to undergo the proposed treatment or procedure. Captured images seen in this note are not a substitute for a comprehensive interpretation of the entire data set as reflected by the interpreting physician with regard to radiology, echocardiography, and other diagnostic images. This note may have been dictated using [employer] Practice Edition and/or [employer]er Voice Recognition Feature. The document was proofread; however, unrecognized voice recognition production control supervisor errors may be present. Associated attestation - Lana Parker MD - 07/08/2022 5:32 PM EDT I saw and evaluated the patient. I agree with the findings and plan of care as documented in the resident s note unless otherwise noted below. Doing well today. She feels she is ready to go home. Increased creatinine today, likely related to contrast from surgery. CT shows no evidence of retroperitoneal hematoma. Small hematoma present at the bilateral femoral access site. Nothing on physical exam to suggest pseudoaneurysm or continued bleeding. PT pulse palpable on the left. DP and PT signals present bilaterally. Continue hydration and current medications. Will recheck labs in AM. Anticipate discharge home tomorrow. Nutrition Assessment Type and Reason for Visit: Initial, Positive Nutrition Screen (MST 2) Nutrition Recommendations/Plan: Per MNT protocol will modify diet to include 3-4 g ADRIEN low sodium restriction, which is more appropriate for pt Supplement(s): Added Ensure Clear 2x/day (provides 240 kcals, 8 grams protein, 8 oz per serving) per MNT protocol Will continue to monitor labs, meds, po intakes and/or enteral nutrition tolerance, skin integrity, wt trends, and overall nutrition status - RD to follow weekly Malnutrition Assessment: Malnutrition Status: At risk for malnutrition (Comment) Context: Acute Illness Findings of the 6 clinical characteristics of malnutrition: Energy Intake: Mild decrease in energy intake (Comment) (NPO, N/V post op) Weight Loss: No significant weight loss Body Fat Loss: Unable to assess Muscle Mass Loss: Unable to assess Fluid Accumulation: No significant fluid accumulation 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 72F w/ PMHx: CAD s/p PCI, CHF with reduced EF (11/2021 of 15-20%; 06/11/22 EF 30%), Pacemaker for tachy-erica syndrome, atrial fibrillation on Eliquis, COPD, and emphysema. She also has a history of bilateral SFA stenting. Admitted to [facility] for infrarenal abdominal aortic aneurysm without rupture, POD#2 s/p EVAR. Having hypertensive episodes this admission, prn antihypertensive given. Advanced to a regular diet, overall vance diet. Having some back pain, likely from stent placement. Endorses some nausea today w/ associated emesis. Hypoactive BS. Estimated Daily Nutrient Needs: Energy Requirements Based On: Kcal/kg Weight Used for Energy Requirements: [place] Weight for Energy Calculation (kg): 45 kg Total Energy Requirements (kcals/day): 1350 Weight Used for Protein Requirements: [place] Weight in Kg Used for Protein Requirements: 45 kg Estimated Total Protein (g/day): 54 Estimated Daily Total Fluid (ml/day): per MD Nutrition Related Findings: Wound Type: Surgical Incision (x2) Food Allergies: NKFA Room Service: Assist Roosevelt Scale Score: 19 Net IO Since Admission: -470.83 mL [07/07/22 1059] Peripheral Vascular (WDL): Exceptions to WDL Bowel Sounds (All Quadrants): Hypoactive GI symptoms: N/V Nutrition History: Independent of feeding Labs/Meds Reviewed: amiodarone, 200 mg, Oral, Daily amLODIPine, 2.5 mg, Oral, Daily apixaban, 5 mg, Oral, BID aspirin, 81 mg, Oral, Daily atorvastatin, 40 mg, Oral, Daily busPIRone, 10 mg, Oral, TID clopidogrel, 75 mg, Oral, Nightly furosemide, 40 mg, Oral, BID gabapentin, 300 mg, Oral, BID isosorbide mononitrate ER, 60 mg, Oral, Daily metoprolol tartrate, 100 mg, Oral, BID Multiple Vitamins, 1 tablet, Oral, Daily pantoprazole, 40 mg, Oral, Daily potassium chloride CR, 20 mEq, Oral, BID sodium chloride 0.9%, 10 mL, IntraVENous, 2 times per day traZODone, 150 mg, Oral, Nightly BMP: Recent Labs 07/06/22 0040 07/06/22 1309 07/07/22 0126 NA 140 -- 136 K 2.9* 5.0 4.5 CL 116* -- 106 CO2 18* -- 26 BUN 17 -- 22* CREATININE 0.76 -- 0.95 GLUCOSE 91 -- 115* CALCIUM 6.0* -- 8.1* Current Nutrition Therapies: Adult diet Regular Current Oral Intake Average Meal Intake: 76-100% Average Supplements Intake: None Ordered Anthropometric Measures: Height: 152.4 cm (5') Current Body Weight: 59.4 kg (131 lb) [place] Body Weight (lbs) (Calculated): 100 lbs [place] Body Weight (Kg) (Calculated): 45 kg % [place] Body Weight (Calculated): 131 % BMI (kg/m2) (Calculated): 25.6 Weight Adjustment For: No Adjustment BMI Categories: Overweight (BMI 25.0-29.9) Weight History: Wt Readings from Last 10 Encounters: 06/26/22 59.8 kg (131 lb 14.4 oz) 05/27/22 59.4 kg (131 lb) Nutrition Diagnosis: Increased nutrient needs related to increase demand for energy/nutrients, acute injury/trauma as evidenced by wounds, nausea, vomiting Nutrition Interventions: Nutrition Education/Counseling: No recommendation at this time Coordination of Nutrition Care: Continue to monitor while inpatient Goals: Goals: Meet at least 75% of estimated needs Nutrition Monitoring and Evaluation: Behavioral-Environmental Outcomes: None Identified Food/Nutrient Intake Outcomes: Food and Nutrient Intake, Supplement Intake Physical Signs/Symptoms Outcomes: Skin, GI Status, Nausea or Vomiting, Hemodynamic Status Discharge Planning: Too soon to determine Jacqueline Lion MS, RD, LD Contact: or iogyn Chat Images from the original note were not included. Department of Surgery - Progress Note -Vascular PATIENT NAME: Kathy Puri : 1950 ATTENDING PHYSICIAN: Lana Parker MD ADMIT DATE: 07/05/2022 TODAY'S DATE: 07/07/2022 SUBJECTIVE: NAEON. Patient does report some back pain, likely secondary to stent placement, pain controlled with current regimen. Reported nausea with associated emesis, antiemetics to assist with nausea control. Denies any fever/chills/chest pain/shortness of breath. Voiding spontaneously ROS: As above unless otherwise noted OBJECTIVE: VITALS: Patient Vitals for the past 24 hrs: BP Temp Temp src Pulse Resp SpO2 07/07/22 0730 -- 36.1 C (96.9 F) Temporal -- -- -- 07/07/22 0500 (!) 171/37 -- -- 64 11 98 % 07/07/22 0459 (!) 172/46 -- -- -- -- -- 07/07/22 0400 -- -- -- 64 13 96 % 07/07/22 0300 (!) 171/49 -- -- 63 11 97 % 07/07/22 0223 (!) 175/52 36.4 C (97.5 F) Temporal 65 15 95 % 07/07/22 0200 (!) 175/52 -- -- 64 14 -- 07/07/22 0100 (!) 169/46 -- -- 65 12 95 % 07/07/22 0008 (!) 180/47 -- -- -- -- -- 07/06/22 2300 (!) 161/45 -- -- 60 11 -- 07/06/22 2219 (!) 166/44 36.4 C (97.5 F) Temporal 60 13 97 % 07/06/222011 (!) 164/44 -- -- -- -- -- 07/06/221999 (!) 164/44 -- -- 60 12 96 % 07/06/22 1906 (!) 177/55 36 C (96.8 F) Temporal 61 12 94 % 07/06/22 1900 (!) 177/55 -- -- 63 13 93 % 07/06/22 1455 -- 36.3 C (97.3 F) Temporal -- -- -- 07/06/22 1134 (!) 162/42 36.4 C (97.5 F) Temporal 60 16 92 % INTAKE/OUTPUT: I/O last 3 completed shifts: In: 550 [P.O.:550] Out: 1625 [Urine:1625] No intake/output data recorded. Physical Exam Vitals and nursing note reviewed. Constitutional: General: She is awake. She is not in acute distress. Appearance: She is not ill-appearing, toxic-appearing or diaphoretic. HENT: Head: Normocephalic and atraumatic. Right Ear: External ear normal. Left Ear: External ear normal. Nose: Nose normal. No rhinorrhea. Mouth/Throat: Mouth: Mucous membranes are moist. Pharynx: No oropharyngeal exudate or posterior oropharyngeal erythema. Eyes: General: Right eye: No discharge. Left eye: No discharge. Cardiovascular: Rate and Rhythm: Normal rate. Pulses: Carotid pulses are 2+ on the right side and 2+ on the left side. Radial pulses are 2+ on the right side and 2+ on the left side. Femoral pulses are 2+ on the right side and 2+ on the left side. Popliteal pulses are 2+ on the right side and 2+ on the left side. Dorsalis pedis pulses are detected w/ Doppler on the right side and detected w/ Doppler on the left side. Posterior tibial pulses are detected w/ Doppler on the right side and detected w/ Doppler on the left side. Pulmonary: Effort: Pulmonary effort is normal. No respiratory distress. Breath sounds: No stridor. No wheezing. Abdominal: General: There is no distension. Palpations: Abdomen is soft. There is no mass or pulsatile mass. Tenderness: There is no abdominal tenderness. There is no guarding or rebound. Musculoskeletal: Cervical back: Normal range of motion. Skin: General: Skin is warm. Capillary Refill: Capillary refill takes less than 2 seconds. Findings: Wound (Surgical incision clean dry and intact on exam, no hematomas appreciated) present. Neurological: General: No focal deficit present. Mental Status: She is alert and oriented to person, place, and time. Mental status is at baseline. GCS: GCS eye subscore is 4. GCS verbal subscore is 5. GCS motor subscore is 6. Sensory: Sensation is intact. Motor: Motor function is intact. Psychiatric: Mood and Affect: Mood normal. Behavior: Behavior normal. Behavior is cooperative. Thought Content: Thought content normal. Judgment: Judgment normal. Data: Recent Labs 07/06/22 0040 07/06/22 0211 07/07/22 0126 WBC 10.0 -- 11.4* HGB 7.0* 9.7* 8.6* PLT 111* -- 168 Recent Labs 07/06/22 0040 07/06/22 1309 07/07/22 0126 NA 140 -- 136 K 2.9* 5.0 4.5 CL 116* -- 106 CO2 18* -- 26 BUN 17 -- 22* CREATININE 0.76 -- 0.95 GLUCOSE 91 -- 115* No results for input(s): AST, ALT, BILITOT, ALKPHOS in the last 72 hours. No lab exists for component: ALB IMAGING: FL GUIDANCE OR USE ONLY - NON RESULTABLE Result Date: 07/05/2022 There is no interpretation needed for this exam. Current Inpatient Medications amiodarone, 200 mg, Oral, Daily amLODIPine, 2.5 mg, Oral, Daily apixaban, 5 mg, Oral, BID aspirin, 81 mg, Oral, Daily atorvastatin, 40 mg, Oral, Daily busPIRone, 10 mg, Oral, TID clopidogrel, 75 mg, Oral, Nightly gabapentin, 300 mg, Oral, BID isosorbide mononitrate ER, 60 mg, Oral, Daily metoprolol tartrate, 100 mg, Oral, BID Multiple Vitamins, 1 tablet, Oral, Daily pantoprazole, 40 mg, Oral, Daily potassium chloride CR, 20 mEq, Oral, BID sodium chloride 0.9%, 10 mL, IntraVENous, 2 times per day traZODone, 150 mg, Oral, Nightly PRN medications: albuterol, hydrALAZINE, [DISCONTINUED] HYDROmorphone OR HYDROmorphone, labetalol, ondansetron ODT OR ondansetron, oxyCODONE, sodium chloride, sodium chloride 0.9% ASSESSMENT AND PLAN: Principal Problem: Infrarenal abdominal aortic aneurysm (AAA) without rupture (HCC) Kathy Puri is a 72 y.o. female status post EVAR. OR date 07/05/2022 Progressing as well Hypertensive overnight, as needed BP meds administered Home antihypertensives restarted Hypokalemia resolved, now 4.5 from 2.9 Very mild leukocytosis, expected after surgery Ambulation as tolerated Diet as tolerated OOB/IS encouraged Disposition: 24-48 hours Continue Eliquis, aspirin, atorvastatin, clopidogrel, as needed analgesics/antiemetics/BP as needed meds Will discuss with Dr. Parker Raji Ontiveros M.D. Department of Surgery Pager: [phone] PAGING / iogyn Secure Chat: From 6a-6p (6a-10a weekends): iogyn Secure Chat (FIRST) or Pager above (EMERGENT/Second) From 6p-6a (10a-6a weekends): Find resident provider under [facility] Surgery - General - Surgical ICU Patients: Select 'ACH GEN SURG Night Float ICU RES' or Page [phone] - Surgical Floor Patients: Select 'ACH GEN SURG Night Float Floor RES' or Page [phone] Disclaimers: INFORMED CONSENT: The nature and purpose of the proposed treatment and/or procedure have been discussed. The risks and benefits of the proposed treatment or procedures have been reviewed. Alternatives have been reviewed in addition to the risks and benefits of not receiving treatments or undergoing procedures. Pursuant to this discussion, the patient agrees to undergo the proposed treatment or procedure. Captured images seen in this note are not a substitute for a comprehensive interpretation of the entire data set as reflected by the interpreting physician with regard to radiology, echocardiography, and other diagnostic images. This note may have been dictated using [employer] Practice Edition and/or [employer] Voice Recognition Feature. The document was proofread; however, unrecognized voice recognition production control supervisor errors may be present. Images from the original note were not included. Department of Surgery - Progress Note -Vascular PATIENT NAME: Kathy Puri : 1950 ATTENDING PHYSICIAN: Lana Parker MD ADMIT DATE: 07/05/2022 TODAY'S DATE: 07/06/2022 SUBJECTIVE: NAEON Patient reports their pain is well controlled with current regimen Patient denies any N/V/F/C/CP/SOB Tolerating diet ROS: As above unless otherwise noted OBJECTIVE: VITALS: Patient Vitals for the past 24 hrs: BP Temp Temp src Pulse Resp SpO2 07/06/22 0606 (!) 183/53 -- -- -- -- -- 07/06/22 0600 (!) 183/53 -- -- 73 18 (!) 87 % 07/06/22 0500 (!) 171/46 -- -- 64 12 92 % 07/06/22 0400 (!) 164/47 -- -- 62 10 95 % 07/06/22 0347 (!) 177/50 -- -- -- -- -- 07/06/22 0330 (!) 177/50 -- -- 66 10 94 % 07/06/22 0324 (!) 167/61 36.7 C (98 F) Temporal 67 16 93 % 07/06/22 0300 (!) 176/49 -- -- 65 11 92 % 07/06/22 0230 (!) 176/50 -- -- 63 (!) 9 94 % 07/06/22 0200 (!) 170/50 -- -- 61 10 97 % 07/06/22 0130 (!) 173/54 -- -- 63 10 -- 07/06/22 0100 (!) 187/47 -- -- 64 11 97 % 07/06/22 0015 (!) 177/65 36.7 C (98.1 F) Temporal 66 16 97 % 07/06/22 0000 (!) 182/60 -- -- 60 13 98 % 07/05/22 2300 (!) 174/50 -- -- 60 11 98 % 07/05/22 2200 (!) 162/54 -- -- 60 (!) 9 98 % 07/05/22 2100 (!) 145/45 -- -- 60 12 98 % 07/05/22 2000 (!) 151/42 -- -- 60 10 94 % 07/05/22 1935 (!) 162/45 36.5 C (97.7 F) Temporal 60 11 98 % 07/05/22 1900 (!) 164/53 -- -- 60 10 96 % 07/05/22 1800 (!) 147/45 -- -- 60 12 90 % 07/05/22 1756 -- -- -- 60 17 90 % 07/05/22 1739 (!) 159/57 -- -- 60 -- -- 07/05/22 1712 -- -- -- 60 12 98 % 07/05/22 1709 (!) 193/79 -- -- -- -- -- 07/05/22 1700 -- -- -- 60 -- 97 % 07/05/22 1645 -- -- -- 60 16 98 % 07/05/22 1630 (!) 149/62 -- -- 60 16 99 % 07/05/22 1615 -- 36.8 C (98.2 F) Temporal 60 18 99 % 07/05/22 1600 132/55 -- -- 60 18 99 % 07/05/22 1545 -- -- -- 60 16 100 % 07/05/22 1530 -- -- -- 60 18 100 % 07/05/22 1515 -- -- -- 60 15 99 % 07/05/22 1500 134/56 -- -- 60 -- 99 % 07/05/22 1445 -- -- -- 60 20 98 % 07/05/22 1430 -- -- -- 60 16 100 % 07/05/22 1415 (!) 14361 -- -- 60 18 99 % 07/05/22 1401 (!) 143 36.6 C (97.8 F) Temporal 60 16 99 % INTAKE/OUTPUT: I/O last 3 completed shifts: In: 1304.2 [P.O.:550; I.V.:526.7; IV Piggyback:227.5] Out: 1075 [Urine:975; Blood:100] No intake/output data recorded. Physical Exam Vitals and nursing note reviewed. Constitutional: General: She is not in acute distress. Appearance: She is not ill-appearing, toxic-appearing or diaphoretic. HENT: Head: Normocephalic and atraumatic. Right Ear: External ear normal. Left Ear: External ear normal. Nose: Nose normal. No rhinorrhea. Mouth/Throat: Mouth: Mucous membranes are moist. Pharynx: No oropharyngeal exudate or posterior oropharyngeal erythema. Eyes: General: Right eye: No discharge. Left eye: No discharge. Cardiovascular: Rate and Rhythm: Normal rate. Pulses: Carotid pulses are 2+ on the right side and 2+ on the left side. Radial pulses are 2+ on the right side and 2+ on the left side. Femoral pulses are 2+ on the right side and 2+ on the left side. Popliteal pulses are 2+ on the right side and 2+ on the left side. Dorsalis pedis pulses are 2+ on the right side and 2+ on the left side. Posterior tibial pulses are 2+ on the right side and 2+ on the left side. Pulmonary: Effort: Pulmonary effort is normal. No respiratory distress. Breath sounds: No stridor. No wheezing. Abdominal: General: There is no distension. Palpations: Abdomen is soft. There is no mass or pulsatile mass. Tenderness: There is no abdominal tenderness. There is no guarding or rebound. Musculoskeletal: Cervical back: Normal range of motion. Skin: General: Skin is warm. Capillary Refill: Capillary refill takes less than 2 seconds. Findings: Wound (Surgical incision clean dry and intact on exam, no hematomas appreciated) present. Neurological: General: No focal deficit present. Mental Status: She is alert and oriented to person, place, and time. Mental status is at baseline. GCS: GCS eye subscore is 4. GCS verbal subscore is 5. GCS motor subscore is 6. Sensory: Sensation is intact. Motor: Motor function is intact. Psychiatric: Mood and Affect: Mood normal. Behavior: Behavior normal. Behavior is cooperative. Thought Content: Thought content normal. Judgment: Judgment normal. Data: Recent Labs 07/06/22 0040 07/06/22 0211 WBC 10.0 -- HGB 7.0* 9.7* PLT 111* -- Recent Labs 07/06/22 0040 NA 140 K 2.9* CL 116* CO2 18* BUN 17 CREATININE 0.76 GLUCOSE 91 No results for input(s): AST, ALT, BILITOT, ALKPHOS in the last 72 hours. No lab exists for component: ALB IMAGING: [place] GUIDANCE OR USE ONLY - NON RESULTABLE Result Date: 07/05/2022 There is no interpretation needed for this exam. Current Inpatient Medications amiodarone, 200 mg, Oral, Daily apixaban, 5 mg, Oral, BID aspirin, 81 mg, Oral, Daily atorvastatin, 40 mg, Oral, Daily busPIRone, 10 mg, Oral, TID ceFAZolin, 2,000 mg, IntraVENous, q8h clopidogrel, 75 mg, Oral, Nightly gabapentin, 300 mg, Oral, BID metoprolol tartrate, 100 mg, Oral, BID pantoprazole, 40 mg, Oral, Daily potassium chloride (KCl) in 500 mL IVPB (peripheral line), 40 mEq, IntraVENous, Once potassium chloride (KCl) in 500 mL IVPB (peripheral line), 40 mEq, IntraVENous, Once sodium chloride 0.9%, 10 mL, IntraVENous, 2 times per day traZODone, 150 mg, Oral, Nightly PRN medications: albuterol, hydrALAZINE, [DISCONTINUED] HYDROmorphone OR HYDROmorphone, labetalol, ondansetron ODT OR ondansetron, oxyCODONE, sodium chloride, sodium chloride 0.9% ASSESSMENT AND PLAN: Principal Problem: Infrarenal abdominal aortic aneurysm (AAA) without rupture (HCC) Kathy Puri is a 72 y.o. female status post EVAR. OR date 07/05/2022 Progressing as expected Hypertensive overnight, as needed's to assist with BP control We will remove Jones/A-line this a.m. Ambulation as tolerated after Jones/A-line removal OOB/IS encouraged Disposition: Possibly later this evening, tomorrow a.m. Continue Eliquis, aspirin, atorvastatin, clopidogrel, as needed analgesics/antiemetics/BP as needed meds Will discuss with Dr. Parker Raji Ontiveros M.D. Department of Surgery Pager: [phone] PAGING / iogyn Secure Chat: From 6a-6p (-s): iogyn Secure Chat (FIRST) or Pager above (EMERGENT/Second) From 6p-6a (-s): Find resident provider under [facility] Surgery - General - Surgical ICU Patients: Select 'ACH GEN SURG Night Float ICU RES' or Page [phone] - Surgical Floor Patients: Select 'ACH GEN SURG Night Float Floor RES' or Page [phone] Disclaimers: INFORMED CONSENT: The nature and purpose of the proposed treatment and/or procedure have been discussed. The risks and benefits of the proposed treatment or procedures have been reviewed. Alternatives have been reviewed in addition to the risks and benefits of not receiving treatments or undergoing procedures. Pursuant to this discussion, the patient agrees to undergo the proposed treatment or procedure. Captured images seen in this note are not a substitute for a comprehensive interpretation of the entire data set as reflected by the interpreting physician with regard to radiology, echocardiography, and other diagnostic images. This note may have been dictated using [employer] Edition and/or [employer] Voice Recognition Feature. The document was proofread; however, unrecognized voice recognition production control supervisor errors may be present. Associated attestation - Laan Parker MD - 07/06/2022 12:34 PM EDT I saw and evaluated the patient. I agree with the findings and plan of care as documented in the resident s note unless otherwise noted below. Hypertensive overnight requiring PRN administration. SBP 165 during my evaluation. Will ensure home medications have been restarted. She notes back pain but thinks it may be related to her laying position. DP and PT signals are present bilaterally. Motion and sensation intact bilaterally in all extremities. Femoral incisions are c/d/I without hematoma. PT/OT. documented in this encounter [facility] 07-09-2022 Note Care Management Prog ress Note Patient remains on 1C s/p EVAR POD # 4. Weaned to RA, patient re-eval by vascular from this am-now alert/oriented, ambulatory and tolerating diet. PT recommending home with assist.-patient stated to TCC mom and sister planning on staying/assisting her at pr. Patient from home with grandson, anticipate discharge home with no needs. Discharge Milestones and Delays Expected Date/Time: 07/10/[address] discharge order Enter post-discharge transportation status Complete med reconciliation Case mgmt discharge readiness Expected Discharge History Expected Date/Time Set By Reviewed At 07/10/2022 ARAVIND Kothari 07/09/2022 10:04 AM Disposition: Home pending improvements in suspected delirium, further workup 07/09/2022 ARAVIND Kothari 07/08/2022 10:17 AM Disposition: 24-48 hours 07/08/2022 Raji Ontiveros MD 07/05/2022 5:12 PM 07/08/2022 Kaila Davey PA-C 07/05/2022 6:13 AM Length of Stay (Days): 4 GMLOS: 1.5 [facility] 07-09-2022 Nurse Note Patient states she takes lorazepam every night before bed and asking if she can get it here. I called and clarified with her pharmacy active medication. Dr Ontiveros aware. [facility] 07-09-2022 Nurse Note Per patient request Dr Ontiveros messaged because she states she takes lorazepam at . [facility] 07-09-2022 Note Formatting of this n ote is different from the original. Images from the original note were not included. Care Management Progress Note Patient remains on 1C s/p EVAR POD # 4. Weaned to RA, patient re-eval by vascular from this am-now alert/oriented, ambulatory and tolerating diet. PT recommending home with assist.-patient stated to TCC mom and sister planning on staying/assisting her at dc. Patient from home with grandson, anticipate discharge home with no needs. Discharge Milestones and Delays Expected Date/Time: 07/10/[address] discharge order Enter post-discharge transportation status Complete med reconciliation Case mgmt discharge readiness Expected Discharge History Expected Date/Time Set By Reviewed At 07/10/2022 ARAVIND Kothari 07/09/2022 10:04 AM Disposition: Home pending improvements in suspected delirium, further workup 07/09/2022 ARAVIND Kothari 07/08/2022 10:17 AM Disposition: 24-48 hours 07/08/2022 Raji Ontiveros MD 07/05/2022 5:12 PM 07/08/2022 Kaila Davey PA-C 07/05/2022 6:13 AM Length of Stay (Days): 4 GMLOS: 1.5 [facility] 07-09-2022 Note Formatting of this n ote is different from the original. Images from the original note were not included. Care Management Progress Note Patient remains on 1C s/p EVAR POD # 4. Weaned to RA, patient re-eval by vascular from this am-now alert/oriented, ambulatory and tolerating diet. PT recommending home with assist.-patient stated to TCC mom and sister planning on staying/assisting her at dc. Patient from home with grandson, anticipate discharge home with no needs. Discharge Milestones and Delays Expected Date/Time: 07/10/[address] discharge order Enter post-discharge transportation status Complete med reconciliation Case mgmt discharge readiness Expected Discharge History Expected Date/Time Set By Reviewed At 07/10/2022 ARAVIND Kothari 07/09/2022 10:04 AM Disposition: Home pending improvements in suspected delirium, further workup 07/09/2022 ARAVIND Kothari 07/08/2022 10:17 AM Disposition: 24-48 hours 07/08/2022 Raji Ontiveros MD 07/05/2022 5:12 PM 07/08/2022 Kaila Davey PA-C 07/05/2022 6:13 AM Length of Stay (Days): 4 GMLOS: 1.5 [facility] 07-09-2022 Miscellaneous Notes Images from the original note were not included. Care Management Progress Note Patient remains on 1C s/p EVAR POD # 4. Weaned to RA, patient re-eval by vascular from this am-now alert/oriented, ambulatory and tolerating diet. PT recommending home with assist.-patient stated to TCC mom and sister planning on staying/assisting her at dc. Patient from home with grandson, anticipate discharge home with no needs. Discharge Milestones and Delays Expected Date/Time: 07/10/[address] discharge order Enter post-discharge transportation status Complete med reconciliation Case mgmt discharge readiness Expected Discharge History Expected Date/Time Set By Reviewed At 07/10/2022 ARAVIND Kothari 07/09/2022 10:04 AM Disposition: Home pending improvements in suspected delirium, further workup 07/09/2022 ARAVIND Kothari 07/08/2022 10:17 AM Disposition: 24-48 hours 07/08/2022 Raji Ontiveros MD 07/05/2022 5:12 PM 07/08/2022 Kaila Davey PA-C 07/05/2022 6:13 AM Length of Stay (Days): 4 GMLOS: 1.5 Problem: Pain - Adult Goal: Verbalizes/displays adequate comfort level or baseline comfort level Outcome: Progressing Problem: Safety - Adult Goal: Free from fall injury Outcome: Progressing Care Managment Initial Assessment Date: 07/08/2022 Patient Name: Kathy Puri : 1950 Patient Information Source of Information: Patient Cognition/Language: WFL - Within Functional Limits Permission given to speak with patient security systems sales representative/caregiver as indicated: Confirmation of Payer with patient/family: Yes Payer Name: [facility] Dual : No Confirmation of Primary Care Physician: Confirmed PCP Name: Dr. Ayoub Seen in last 2 years?: Yes Primary Caregiver: Self If assistance needed, confirmed caregiver ready, willing and able to care for patient at discharge: Confirmed with: Living Arrangements Current Residence: House Number of Floors 2 Number of Entry Steps: 5 or more Bed/Bath Levels: Both second floor Facility: Facility Name: Plan to Return: Lives with: Extended family members (grandson) Support Systems: Family members, Children, Parent Activities of Daily Living Ambulation: Independent Bathing/Dressing: Independent Elimination/Continence/Toileting: Independent Feeding: Independent Who Assists with Activities of Daily Living: Instrumental Activities of Daily Living Prescription Coverage: Yes Pharmacy Used: [facility] Medication Management: (picks up rx, student fills weekly pill box.) Transportation/Shopping: Assistance Provider Transportation/Shopping Assistance Provider Name: family Transportation Mode: Car Needs Assistance with Transportation at Discharge: No Meal Preparation: Independent Laundry/Cleaning: Independent Finances/Bill Paying: Independent Communication: Independent Types of Care Services/Equipment Utilized Care Services: Dialysis Type: Durable Medical Equipment: Walker, Bedside Commode, Shower Seat (pill box filled weekly) Patient's Goal/Discharge Plan Patient expects to be discharged to: home Discharge Planning Actions: Continue to follow Patient's Choice Rights and [employer] and Collaborative Relationships Disclosed as Indicated for Post-Acute Care: Interdisciplinary Team Engagement: Social Work Referral for: Additional Information: Patient admitted to 1C s/p EVAR POD # 3. Spoke with patient at bedside, introduced self and role. Patient from home with teenage grandson, is independent, has DME if needed, will have a ride home and currently denies discharge needs. TCC to follow. Jackie Kelly RN Problem: Pain - Adult Goal: Verbalizes/displays adequate comfort level or baseline comfort level Outcome: Progressing Problem: Safety - Adult Goal: Free from fall injury Outcome: Progressing Problem: Discharge Planning Goal: Discharge to home or other facility with appropriate resources Outcome: Progressing Problem: Pain - Adult Goal: Verbalizes/displays adequate comfort level or baseline comfort level Outcome: Progressing Problem: Safety - Adult Goal: Free from fall injury Outcome: Progressing Problem: Pain - Adult Goal: Verbalizes/displays adequate comfort level or baseline comfort level Outcome: Progressing Problem: Safety - Adult Goal: Free from fall injury Outcome: Progressing Problem: Discharge Planning Goal: Discharge to home or other facility with appropriate resources Outcome: Progressing Updated pt's sister over phone that pt is doing well in recovery and will be admitted to 1 C- 133 A shortly. Sistermaia updated via phone call on pt status. OPERATIVE REPORT DATE OF SERVICE: 07/05/2022 PRE-PROCEDURE DIAGNOSIS: Infrarenal Abdominal aortic aneurysm POST-PROCEDURE DIAGNOSIS: As above PROCEDURE PERFORMED: 1) Bilateral open femoral artery exposure for delivery of endoprosthesis 2) Endovascular infrarenal abdominal aortic aneurysm repair with 29 mm Endologix [place] endograft 3) Placement of 10 mm x 37 mm Balloon expandable stent placement to the right common iliac limb 4) Palmaz stent placement to the infrarenal aortic neck SURGEON: Lana Parker MD ASSISTANTS: Jolynn Meza APRN-KARLA, Raji Ontiveros MD (PGY-1), Brian Nuñez MD FINDINGS: Type Ia endoleak present on initial completion angiography requiring placement of a Palmaz stent proximally. There is significant improvement in the type Ia endoleak with slowing of flow. Good flow throughout the aortic repair. DP and PT signals present bilaterally at the conclusion of the case. ANESTHESIA: General ESTIMATED BLOOD LOSS: 300 ml COMPLICATIONS: None SPECIMENS: None IMPLANTS: 1) 29 mm Endologix [place] Main body 2) 14 x 120 mm Ovation iX left iliac limb 3) 16 x 120 mm Ovation iX right iliac limb 4) Palmaz XL stent to Aortic neck 5) 10 x 39 mm [employer] express balloon expandable stent placement to right common iliac limb WOUND CLASS: 1 FLUORO TIME: 96.7 min DOSE: 2598 mGy CONTRAST: 118 ml INDICATIONS FOR PROCEDURE: The patient is a 72-year-old female who was found to have an infrarenal abdominal aortic aneurysm measuring approximately 5.5 cm. Endovascular repair was recommended as the patient had a significant cardiac history with ejection fraction of 30% as well as a significant pulmonary history. Risks benefits and alternatives were discussed at length with the patient and she elected to proceed. PROCEDURE IN DETAIL: Patient was taken to the operating room and placed in the supine position. General anesthesia was induced. Perioperative antibiotics were administered. The patient's abdomen and bilateral groins were prepped and draped in usual sterile fashion. A timeout was performed verifying the correct patient, side, site, and procedure to be performed. And oblique incision was made overlying the patient's right common femoral artery. Dissection was carried down through the subcutaneous tissues using electrocautery. The femoral sheath was encountered and incised. The common femoral artery was then identified and cleared of surrounding tissues both proximally and distally until approximately 4 cm of the artery had been exposed. A significant amount of scar tissue was present from prior access. Control was obtained proximally and distally using Silastic Vesseloops. This was performed in a similar fashion on the left. An access needle was then used to obtain access to the common femoral artery on the right. Seldinger technique was used to place a 6 [place] sheath. This was again performed in a similar fashion on the left with placement of an 8 [place] sheath. The patient was then given 6000 units of heparin for systemic anticoagulation. This was redosed throughout the case as needed. On the right, a Adam catheter was used to obtain access to the descending thoracic aorta and the Bentson wire was exchanged for a Lunderquist wire. The catheter was then removed. On the left, a pigtail catheter was positioned in the infrarenal abdominal aorta and angiography was performed. The location of the renal arteries were marked bilaterally on the screen. A 29 mm alto aortic body endograft was selected. Attempts were made to pass the main body from the right however it was unable to be passed into the infrarenal abdominal aorta through the right common iliac artery. Because of this, the decision was made to place the main body from the left. A Lunderquist wire was placed through the pigtail catheter and positioned in the descending thoracic aorta. The pigtail catheter was then removed and the main body was placed from the left up into the infrarenal abdominal aorta. On the right, a 14 [place] sheath was placed once the graft was removed. A pigtail catheter was then placed from the right and positioned in the mesenteric segment of the abdominal aorta. Angiography was performed to again locate the renal arteries bilaterally. The aortic body delivery system was advanced over the guidewire until the implant radiopaque markers were approximately 1 cm proximal to the intended landing site. The outer sheath was then retracted from the delivery system until the sheath retraction knob met the handle. The first segment of the proximal stent was then deployed by turning the first stent release knob and then steadily removing this from the handle. The white cath was then removed from the balloon injection port and inflated to open the mid crown. The balloon was then deflated. The implant radiopaque markers were then ensured to be positioned at the final proximal landing site. The remainder of the proximal stent was then deployed. The polymer injection port was then opened and the syringe was attached with the autoinjector. The aortic body guidewire was retracted back until the stiff the floppy transition was with in the ipsilateral limb. Once 15 minutes had passed, balloon angioplasty was performed to ensure adequate apposition. Once completely filled, the delivery system was removed and a 16 [place] sheath was placed on the left. As the pollen refilled, the contralateral gate appeared to be superimposed on the ipsilateral limb. Because of this, the decision was made to place the ipsilateral limb prior to the contralateral limb in order to ensure access into the contralateral gate. A pigtail catheter was placed through the ipsilateral limb and angiography was performed from the femoral sheath to marco the approximate location of the internal iliac artery takeoff. A 14 x 120 mm ovation iX iliac limb was selected. The pigtail catheter was removed after placement of the Lunderquist wire and the limb was appropriately positioned and deployed. From the contralateral side, attempts were made to access the gate and despite multiple attempts with multiple different catheters and wires this was unable to be successfully completed. Because of this, an Omni Flush catheter as well as a Glidewire were used from the ipsilateral side to come up and over the aortic body and out to the contralateral gate. The wire was then snared from the right and the wire was brought out through the right side sheath. The pigtail catheter was then placed over the Glidewire and positioned in the aortic body. The wire was then removed. Angiography was performed to the sheath to marco the approximate location of the right internal iliac artery. A 16 x 120 mm ovation iX limb was selected. The Lunderquist wire was then placed in the pigtail catheter and positioned in the distal descending thoracic aorta. The pigtail catheter was then removed and the limb was positioned and deployed. The delivery system was then removed. Lunderquist wires were then positioned from both sides above the level of the graft. Balloon angioplasty was then performed of the overlap of the limbs as well as into the iliac vessels to ensure adequate seal using 12 mm balloons. The balloons were then removed. As there was difficulty with passing anything larger than a 12 [place] catheter from the right, the decision was made to place a balloon expandable stent at the approximate location of the right common iliac artery origin to ensure the limb had extra support. This was appropriately positioned and deployed with balloon protection on the left to ensure the limb was not crushed. A 10 x 39 mm balloon expandable stent was placed and deployed to graft apposition. A [place] catheter was then positioned in the abdominal aorta with removal of the Lunderquist wire from the right. The pigtail catheter was then placed in the mesenteric segment of the abdominal aorta from the right to perform completion angiography. On completion angiography, there was good filling of the mesenteric vessels as well as the bilateral renal arteries. There was a type Ia endoleak present is on the left does not appear that the polymer met the aortic neck with appropriate apposition. Distally there did not appear to be a type II or type III endoleak with good wall apposition. Because of the presence of a type Ia endoleak, a pulm stent was brought onto the field and prepared over the Q50 X balloon. The sheath was advanced to the level of the renal arteries from the left. The Palmaz stent was then placed through the sheath and positioned the sheath was then pulled back exposing the stent. Stent was then deployed at the proximal portion of the aortic graft to the level of the renal arteries. Completion angiography after deployment of the Palmaz stent revealed improvement in the type Ia endoleak with only a small amount of contrast visualized. As the patient remained heparinized and there was significant improvement, the decision was made to conclude the case. All catheters and wires were removed. On the right, the sheath was removed and control was obtained of the proximal common femoral artery using a Kartchner clamp. A DeBakey clamp was used to control the distal common femoral artery. The artery was flushed with heparinized saline and repaired with interrupted 5-0 Prolene suture. Prior to completion of the repair, backbleeding and forward bleeding was allowed in order to vent the artery of air and debris. The repair was then completed. Inflow was then restored followed by outflow. A good pulse was present at the common femoral artery and good Doppler signals were obtained distally from the repair this was performed in a similar fashion on the left also with good inflow noted and a good Doppler signal obtained distal to the repair. Hemostasis was achieved at each of the incisions. Patient was given protamine for reversal of anticoagulation. Once hemostasis was secured we proceeded with closure. The femoral sheath was reapproximated using 2-0 Vicryl suture. The subcutaneous tissues were reapproximated using 3-0 Vicryl suture. 3-0 Vicryl deep dermal sutures were then placed followed by running 4-0 Monocryl subcuticular suture at this end. Dermabond skin glue was placed as sterile dressing. All sponge and needle counts were correct at the conclusion of the case The patient was awakened from general anesthesia and transferred to the recovery area in stable condition. DP and PT signals were present at the conclusion of the case. Lana Parker MD Vascular Surgery Date: 07/05/2022 Location: [facility] OR Name: Kathy Puri, : 1950, Diagnosis Pre-op Diagnosis * Infrarenal abdominal aortic aneurysm, without rupture (HCC) [I71.43] Post-op Diagnosis * Infrarenal abdominal aortic aneurysm, without rupture (HCC) [I71.43] Procedures ENDOVASCULAR REPAIR OF ABDOMINAL AORTIC ANEURYSM 93610 - [place] EVASC RPR DPLMNT [id number] OPEN FEMORAL ARTERY EXPOSURE FOR DELIVERY OF ENDOVASCULAR PROSTHESIS 88584 - [place] OPN FEM ART EXPOS DLVR EVASC PROSTH UNI Surgeons * Lana Parker - Primary * Brian Nuñez - Assisting Procedure Summary Anesthesia: General ASA: IV Estimated Blood Loss: Minimal Drains: Urethral Catheter 16 Fr. (Active) Implants Type Name Action Serial No. Stent TM ABDOMINAL STENT GRAFT SYSTEM Implanted Stent ILIAC STENT GRAFT Implanted Stent ILIAC STENT GRAFT Implanted Stent palmaz xl Implanted Stent LD Iliac/Biliary Implanted Stent STENT CARLOS 10MM 7FR 25MM 135CM - [id number] Implanted Staff: Image Scientist: Georgina Daley RN Nurse Practitioner: Jolynn Meza, ATHLETIC TRAINER - OUTPATIENT PSYCHIATRIST Relief Scrub: Fercho Crystal Scrub Person: Landy David Findings: See full op note for details. Complications: None; patient tolerated the procedure well. Specimens Collected: Order Name Source Comment Collection Info Order Time POTASSIUM WITH MG REFLEX For patients on dialysis to draw potassium day of surgery 07/05/2022 6:13 AM PROTHROMBIN TIME If patient on coumadin within 4 days prior. 07/05/2022 6:13 AM Wound Class: Class I: Clean Blood Products: None Prophylactic Antibiotics: Procedure appropriate prophylactic antibiotic(s) given within 1 hour of surgical incision (two hours if receiving Vancomycin or flouroquinolone) documented in this encounter [facility] 07-09-2022 Hospital Discharge instructions Franklin Ontiveros MD - 07/09/2022 2:55 PM EDT Discharge Instructions for Endovascular Repair of Abdominal Aortic Aneurysm Call Dr. Parker's office [phone] for follow-up appointment. During endovascular repair, the doctor guides catheters through both groin arteries up to the aortic aneurysm in the abdomen. A stent graft is placed in the weakened area to strengthen it. Steps to Take Home Care Follow these guidelines after surgery: Rest. Try to move as tolerated. A mix of rest and light activity improves healing. The incision area may be sore for a few days. To minimize pain and soreness: Take pain medicine as directed. Avoid strenuous activity and heavy lifting. Keep the incision area clean and dry. Follow your doctor's instructions for changing the bandages, such as: Wash your hands thoroughly. Cleanse the site with lukewarm water and mild soap. Use a soft wash cloth to gently wipe the incision area. Gently sponge bathe or shower. Do not scrub the incision areas. Avoid baths or swimming for one week. Diet You can return to your regular diet. You may work with a train system operator who will help you follow a heart-healthy diet. Physical Activity You will feel sore after the surgery. Try to walk steadily within two weeks. You may be able to return to normal activities within 1-3 weeks. While recovering, you will need to avoid strenuous activities, like heavy lifting. Ask your doctor when you will be able to return to work. Do not drive unless your doctor has given you permission to do so. Medications Your doctor may recommend: [id number] or prescription pain medicine Aspirin or a cholesterol-lowering drug to prevent complications If you had to stop medicines before the procedure, ask your doctor when you can start again. Medicines that may have been stopped include: Anti-inflammatory drugs (eg, aspirin, ibuprofen) Blood thinners, like warfarin (Coumadin) Clopidogrel (Plavix) When taking medicines: Take your medicine as directed. Do not change the amount or the schedule. Do not stop taking them without talking to your doctor. Do not share them. Know what results and side effects to look for. Report them to your doctor. Some drugs can be dangerous when mixed. Talk to a doctor or pharmacist if you are taking more than one drug. This includes [id number] medicines and herb or dietary supplements. Plan ahead for refills so you do not run out. Lifestyle Changes You and your doctor will plan lifestyle changes that will help you recover. Some things to keep in mind include: Atherosclerosis and high blood pressure should be carefully managed. This can be done with medicines and a healthy lifestyle. If you smoke, talk to your doctor about quitting. Follow-up To check for stent graft problems, schedule regular follow-up testing as directed by your doctor. Be sure to go to all of your appointments. Call Your Doctor If Any of the Following Occurs After you leave the hospital, call your doctor if any of the following occurs: Redness, swelling, increasing pain, excessive bleeding, or discharge at the incision site Signs of infection, including fever and chills New abdominal pain Back pain Any change of color or sensation in your legs or feet Burning, pain, or other problems when urinating Nausea or vomiting Abdominal cramps or diarrhea Unusual fatigue or depression Disorientation or confusion Numbness or tingling in the legs New, unexplained symptoms Cough Call 911 or go to the emergency room right away if you have: Shortness of breath Chest pain If you think you have an emergency, CALL 911. documented in this encounter [facility] 07-09-2022 Nurse Note In chair, encouraged incentive spirometer. [facility] 07-09-2022 Nurse Note Patient awakens for assessment. She is sleepy but follows all commands. She answers all questions appropriately. Neuro checks are within normal limits. She is oriented x4. Able to demonstrate use of call light. Bed alarm on for safety. Dr Ontiveros updated. [facility] 07-08-2022 Note Problem: Pain - Adul t Goal: Verbalizes/displays adequate comfort level or baseline comfort level Outcome: Progressing Problem: Safety - Adult Goal: Free from fall injury Outcome: Progressing [facility] 07-08-2022 Plan of care note Problem: Pain - Adult Goal: Verbalizes/displays adequate comfort level or baseline comfort level Outcome: Progressing Problem: Safety - Adult Goal: Free from fall injury Outcome: Progressing [facility] 07-08-2022 Note Sister Maia update d on plan of care. [facility] 07-08-2022 Note Formatting of this n ote might be different from the original. 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 Ayoub Seen in last 2 years?: Yes Primary Caregiver: Self If assistance needed, confirmed caregiver ready, willing and able to care for patient at discharge: Confirmed with: Living Arrangements Current Residence: House Number of Floors 2 Number of Entry Steps: 5 or more Bed/Bath Levels: Both second floor Facility: Facility Name: Plan to Return: Lives with: Extended family members (grandson) Support Systems: Family members, Children, Parent Activities of Daily Living Ambulation: Independent Bathing/Dressing: Independent Elimination/Continence/Toileting: Independent Feeding: Independent Who Assists with Activities of Daily Living: Instrumental Activities of Daily Living Prescription Coverage: Yes Pharmacy Used: [facility] Medication Management: (picks up rx, student fills weekly pill box.) Transportation/Shopping: Assistance Provider Transportation/Shopping Assistance Provider Name: family Transportation Mode: Car Needs Assistance with Transportation at Discharge: No Meal Preparation: Independent Laundry/Cleaning: Independent Finances/Bill Paying: Independent Communication: Independent Types of Care Services/Equipment Utilized Care Services: Dialysis Type: Durable Medical Equipment: Walker, Bedside Commode, Shower Seat (pill box filled weekly) Patient's Goal/Discharge Plan Patient expects to be discharged to: home Discharge Planning Actions: Continue to follow Patient's Choice Rights and [employer] and Collaborative Relationships Disclosed as Indicated for Post-Acute Care: Interdisciplinary Team Engagement: Social Work Referral for: Additional Information: Patient admitted to 1C s/p EVAR POD # 3. Spoke with patient at bedside, introduced self and role. Patient from home with teenage grandson, is independent, has DME if needed, will have a ride home and currently denies discharge needs. TCC to follow. Jackie Kelly RN [facility] 07-08-2022 Note Formatting of this n ote might be different from the original. 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 Ayoub Seen in last 2 years?: Yes Primary Caregiver: Self If assistance needed, confirmed caregiver ready, willing and able to care for patient at discharge: Confirmed with: Living Arrangements Current Residence: House Number of Floors 2 Number of Entry Steps: 5 or more Bed/Bath Levels: Both second floor Facility: Facility Name: Plan to Return: Lives with: Extended family members (grandson) Support Systems: Family members, Children, Parent Activities of Daily Living Ambulation: Independent Bathing/Dressing: Independent Elimination/Continence/Toileting: Independent Feeding: Independent Who Assists with Activities of Daily Living: Instrumental Activities of Daily Living Prescription Coverage: Yes Pharmacy Used: [facility] Medication Management: (picks up rx, student fills weekly pill box.) Transportation/Shopping: Assistance Provider Transportation/Shopping Assistance Provider Name: family Transportation Mode: Car Needs Assistance with Transportation at Discharge: No Meal Preparation: Independent Laundry/Cleaning: Independent Finances/Bill Paying: Independent Communication: Independent Types of Care Services/Equipment Utilized Care Services: Dialysis Type: Durable Medical Equipment: Walker, Bedside Commode, Shower Seat (pill box filled weekly) Patient's Goal/Discharge Plan Patient expects to be discharged to: home Discharge Planning Actions: Continue to follow Patient's Choice Rights and [employer] and Collaborative Relationships Disclosed as Indicated for Post-Acute Care: Interdisciplinary Team Engagement: Social Work Referral for: Additional Information: Patient admitted to 1C s/p EVAR POD # 3. Spoke with patient at bedside, introduced self and role. Patient from home with teenage grandson, is independent, has DME if needed, will have a ride home and currently denies discharge needs. TCC to follow. Jackie Kelly RN T [facility] 07-08-2022 Note Physical Therapy 1C Physical Therapy Initial Evaluation NAME: Kathy Puri : 1950 Date of Service: 07/08/2022 Discharge Recommendations: Home with assist PRN PT Equipment Recommendations Equipment Needed: No Assessment Requires PT Follow-Up: Yes Assessment: Kathy Puri was admitted with AAA without rupture, is now s/p repair. She was up in the chair at onset and end of this session. She ambulated 200' around the unit slowly , without a device. She is pleasant and cooperative with therapy. She lives in a house; her 14 yr. old grandson lives with her. 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 She will have assistance from her mother or her sister when she goes home. Recommend home with assist upon discharge. Performance Deficits/Impairments: Decreased functional mobility , Decreased endurance, Increased pain Treatment Diagnosis: decreased functional independence, pain. Decision Making: Low Complexity Activity Tolerance Activity Tolerance: Patient limited by endurance, Patient limited by pain Patient Diagnosis(es): The encounter diagnosis was Infrarenal abdominal aortic aneurysm (AAA) without rupture. has a past medical history of Anemia, Anxiety, Arrhythmia, Arthritis, Cancer ([facility]/HCC) ([facility]), CHF (congestive heart failure) ([facility]) ([facility]), CKD (chronic kidney disease), COPD (chronic obstructive pulmonary disease) ([facility]), Depression, GERD (gastroesophageal reflux disease), Heart valve disease, Hyperlipidemia, Hypertension, Irritable bowel syndrome, Joint pain, Myocardial infarction ([facility]/HCC) ([facility]), Pacemaker, PAD (peripheral artery disease) ([facility]), and Sleep apnea. has a past surgical history that includes stent insertion (historical); pacemaker (historical) (2018); Hysterectomy; Breast biopsy (Bilateral); Insert / replace / remove pacemaker; Coronary stent placement; Tonsillectomy; and Abdominal aortic aneurysm repair (07/05/2022). Restrictions Restrictions/Precautions Restrictions/Precautions: General Precautions Implants present? : (chronic pacemaker) Position Activity Restriction Other position/activity restrictions: She moves slow, needs little assist,no device. Vision/Hearing Vision: Within Functional Limits Hearing: Functional/adequate for paticipation in therapy Cognition/Orientation Overall Cognitive Status: WFL Overall Orientation Status: Within Functional Limits Subjective General Chart Reviewed: Yes Patient Assessed for Rehabilitation Services: Yes Additional Pertinent Hx: She complains of incisional soreness/tenderness Response To Previous Treatment: Not applicable Family / Caregiver Present: No Diagnosis: s/p repair of AAA without rupture Follows Commands: Within Functional Limits General Comment Comments: She was up in the chair at onset and end of session. She is pleasant and cooperative. Subjective Subjective: Pt is willing to ambulate in halls with PT. Patient Stated Goal: To go home and heal from this surgery, get back to herself. 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 Objective Observation/Palpation Posture: Good Observation: She stated she felt better after ambulating in the halls this morning. AROM RLE (degrees) RLE AROM: WFL AROM LLE (degrees) LLE AROM : WFL Strength RLE Comment: 4/5 Strength LLE Comment: 4/5 Tone RLE RLE Tone: (lightly deconditioned) Tone LLE LLE Tone: (lightly deconditioned) Coordination Rapid Alternating Movements: Normal Bed mobility Bridging: Unable to assess Rolling to Left: Unable to assess Transfers Sit to Stand: Contact guard assistance Stand to sit: Contact guard assistance Bed to Chair: Minimal assistance Ambulation Ambulation: Yes Ambulation 1 Surface 1: Level tile Device 1: No device Assistance 1: Contact guard Quality of Gait 1: slow kenisha Distance (ft) 1: 200' Balance Posture: Good Sitting - Static: Good Sitting - Dynamic: Good Standing - Static: Good, - Standing - Dynamic: Good, - Other exercises Other exercises?: Yes Other exercises 1: IS x 10 to [id number] ml Plan Times per Week: 5 Times per Day: Daily Plan Weeks: 2 Current Treatment Recommendations: Strengthening, Func (more content not included)... [facility] 07-08-2022 Nurse Note Sister Maia updated on plan of care. T [facility] 07-08-2022 Plan of care note Problem: Pain - Adult Goal: Verbalizes/displays adequate comfort level or baseline comfort level Outcome: Progressing Problem: Safety - Adult Goal: Free from fall injury Outcome: Progressing Problem: Discharge Planning Goal: Discharge to home or other facility with appropriate resources Outcome: Progressing T [facility] 07-07-2022 Note Problem: Pain - Adul t Goal: Verbalizes/displays adequate comfort level or baseline comfort level Outcome: Progressing Problem: Safety - Adult Goal: Free from fall injury Outcome: Progressing [facility] 07-07-2022 Plan of care note Problem: Pain - Adult Goal: Verbalizes/displays adequate comfort level or baseline comfort level Outcome: Progressing Problem: Safety - Adult Goal: Free from fall injury Outcome: Progressing [facility] 07-07-2022 Note Department of Surger y - Progress Note -Vascular PATIENT NAME: Kathy Puri : 1950 ATTENDING PHYSICIAN: Lana Parker MD ADMIT DATE: 07/05/2022 TODAY'S DATE: 07/07/2022 SUBJECTIVE: NAEON. Patient does report some back pain, likely secondary to stent placement, pain controlled with current regimen. Reported nausea with associated emesis, antiemetics to assist with nausea control. Denies any fever/chills/chest pain/shortness of breath. Voiding spontaneously ROS: As above unless otherwise noted OBJECTIVE: VITALS: Patient Vitals for the past 24 hrs: BP Temp Temp src Pulse Resp SpO2 07/07/22 0730 -- 36.1 ?C (96.9 ?F) Temporal -- -- -- 07/07/22 0500 (!) 171/37 -- -- 64 11 98 % 07/07/22 0459 (!) 172/46 -- -- -- -- -- 07/07/22 0400 -- -- -- 64 13 96 % 07/07/22 0300 (!) 171/49 -- -- 63 11 97 % 07/07/22 0223 (!) 175/52 36.4 ?C (97.5 ?F) Temporal 65 15 95 % 07/07/22 0200 (!) 175/52 -- -- 64 14 -- 07/07/22 0100 (!) 169/46 -- -- 65 12 95 % 07/07/22 0008 (!) 180/47 -- -- -- -- -- 07/06/22 2300 (!) 161/45 -- -- 60 11 -- 07/06/222218 (!) 166/44 36.4 ?C (97.5 ?F) Temporal 60 13 97 % 07/06/222011 (!) 164/44 -- -- -- -- -- 07/06/221999 (!) 164/44 -- -- 60 12 96 % 07/06/22 1906 (!) 177/55 36 ?C (96.8 ?F) Temporal 61 12 94 % 07/06/22 1900 (!) 177/55 -- -- 63 13 93 % 07/06/22 1455 -- 36.3 ?C (97.3 ?F) Temporal -- -- -- 07/06/22 1134 (!) 162/42 36.4 ?C (97.5 ?F) Temporal 60 16 92 % INTAKE/OUTPUT: I/O last 3 completed shifts: In: 550 [P.O.:550] Out: 1625 [Urine:1625] No intake/output data recorded. Physical Exam Vitals and nursing note reviewed. Constitutional: General: She is awake. She is not in acute distress. Appearance: She is not ill-appearing, toxic-appearing or diaphoretic. HENT: Head: Normocephalic and atraumatic. Right Ear: External ear normal. Left Ear: External ear normal. Nose: Nose normal. No rhinorrhea. Mouth/Throat: Mouth: Mucous membranes are moist. Pharynx: No oropharyngeal exudate or posterior oropharyngeal erythema. Eyes: General: Right eye: No discharge. Left eye: No discharge. Cardiovascular: Rate and Rhythm: Normal rate. Pulses: Carotid pulses are 2+ on the right side and 2+ on the left side. Radial pulses are 2+ on the right side and 2+ on the left side. Femoral pulses are 2+ on the right side and 2+ on the left side. Popliteal pulses are 2+ on the right side and 2+ on the left side. Dorsalis pedis pulses are detected w/ Doppler on the right side and detected w/ Doppler on the left side. Posterior tibial pulses are detected w/ Doppler on the right side and detected w/ Doppler on the left side. Pulmonary: Effort: Pulmonary effort is normal. No respiratory distress. Breath sounds: No stridor. No wheezing. Abdominal: General: There is no distension. Palpations: Abdomen is soft. There is no mass or pulsatile mass. Tenderness: There is no abdominal tenderness. There is no guarding or rebound. Musculoskeletal: Cervical back: Normal range of motion. Skin: General: Skin is warm. Capillary Refill: Capillary refill takes less than 2 seconds. Findings: Wound (Surgical incision clean dry and intact on exam, no hematomas appreciated) present. Neurological: General: No focal deficit present. Mental Status: She is alert and oriented to person, place, and time. Mental status is at baseline. GCS: GCS eye subscore is 4. GCS verbal subscore is 5. GCS motor subscore is 6. Sensory: Sensation is intact. Motor: Motor function is intact. Psychiatric: Mood and Affect: Mood normal. Behavior: Behavior normal. Behavior is cooperative. Thought Content: Thought content normal. Judgment: Judgment normal. Data: Recent Labs 07/06/22 0040 07/06/22 0211 07/07/22 0126 WBC 10.0 -- 11.4* HGB 7.0* 9.7* 8.6* PLT 111* -- 168 Recent Labs 07/06/22 0040 07/06/22 1309 07/07/22 0126 NA 140 -- 136 K 2.9* 5.0 4.5 CL 116* -- 106 CO2 18* -- 26 BUN 17 -- 22* CREATININE 0.76 -- 0.95 GLUCOSE 91 -- 115* No results for input(s): AST, ALT, BILITOT, ALKPHOS in the last 72 hours. No lab exists for component: ALB IMAGING: FL GUIDANCE OR USE ONLY - NON RESULTABLE Result Date: 07/05/2022 There is no interpretation needed for this exam. Current Inpatient Medications amiodarone, 200 mg, Oral, Daily amLODIPine, 2.5 mg, Oral, Daily apixaban, 5 mg, Oral, BID aspirin, 81 mg, Oral, Daily atorvastatin, 40 mg, Oral, Daily busPIRone, 10 mg, Oral, TID clopidogrel, 75 mg, Oral, Nightly gabapentin, 300 mg, Oral, BID isosorbide mononitrate ER, 60 mg, Oral, Daily metoprolol tartrate, 100 mg, Oral, BID Multiple Vitamins, 1 tablet, Oral, Daily pantoprazole, 40 mg, Oral, Daily potassium chloride CR, 20 mEq, Oral, BID sodium chloride 0.9%, 10 mL, IntraVENous, 2 times per day traZODone, 150 mg, Oral, Nightly PRN medications: albuterol, hydrALAZINE, [DISCONTINUED] HYDROmorphone OR HYDROmo (more content not included)... [facility] 07-06-2022 Plan of care note Problem: Pain - Adult Goal: Verbalizes/displays adequate comfort level or baseline comfort level Outcome: Progressing Problem: Safety - Adult Goal: Free from fall injury Outcome: Progressing Problem: Discharge Planning Goal: Discharge to home or other facility with appropriate resources Outcome: Progressing [facility] 07-05-2022 Nurse Note paged in regards to patient elevated BP. [facility] 07-05-2022 Note Formatting of this n ote might be different from the original. Updated pt's sister over phone that pt is doing well in recovery and will be admitted to 1 C- 133 A shortly. [facility] 07-05-2022 Note Formatting of this n ote might be different from the original. Updated pt's sister over phone that pt is doing well in recovery and will be admitted to 1 C- 133 A shortly. T [facility] 07-05-2022 Note Patient: Kathy tierney Procedure Summary Date: 07/05/22 Room / Location: [facility] OR [facility] Operating Room Anesthesia Start: 730 Anesthesia Stop: 1412 Procedures: ENDOVASCULAR REPAIR OF ABDOMINAL AORTIC ANEURYSM OPEN FEMORAL ARTERY EXPOSURE FOR DELIVERY OF ENDOVASCULAR PROSTHESIS (Bilateral) Diagnosis: Infrarenal abdominal aortic aneurysm, without rupture (HCC) (Infrarenal abdominal aortic aneurysm, without rupture (HCC) [I71.43]) Surgeons: Lana Parker MD Responsible Provider: Elgin Castro MD Anesthesia Type: general ASA Status: 4 Anesthesia Type: general Vitals Value Taken Time BP 143/53 07/05/22 1406 Temp 36.5 07/05/22 1415 Pulse 60 07/05/22 1415 Resp 18 07/05/22 1415 SpO2 99 % 07/05/22 1415 Vitals shown include unvalidated device data. Anesthesia Post Evaluation Patient location during evaluation: PACU Patient participation: complete - patient participated Level of consciousness: awake and alert Pain management: adequate Airway patency: patent Dental Injury: no Cardiovascular status: acceptable Respiratory status: acceptable Hydration status: acceptable Nausea/Vomiting: controlled No notable events documented. Patient can be discharged once all PACU criteria has been met. [facility] 07-05-2022 Note Patient: Kathy tierney Procedure Summary Date: 07/05/22 Room / Location: [facility] Operating Room Anesthesia Start: 730 Anesthesia Stop: 1412 Procedures: ENDOVASCULAR REPAIR OF ABDOMINAL AORTIC ANEURYSM OPEN FEMORAL ARTERY EXPOSURE FOR DELIVERY OF ENDOVASCULAR PROSTHESIS (Bilateral) Diagnosis: Infrarenal abdominal aortic aneurysm, without rupture (HCC) (Infrarenal abdominal aortic aneurysm, without rupture (HCC) [I71.43]) Surgeons: Lana Parker MD Responsible Provider: Elgin Castro MD Anesthesia Type: general ASA Status: 4 Anesthesia Type: general Vitals Value Taken Time BP 143/53 07/05/22 1406 Temp 36.5 07/05/22 1413 Pulse 60 07/05/22 1413 Resp 18 07/05/22 1413 SpO2 100 % 07/05/22 1413 Vitals shown include unvalidated device data. Anesthesia Post Evaluation Patient location during evaluation: PACU Patient participation: complete - patient participated Level of consciousness: awake and alert Pain score: 2 Pain management: adequate Multimodal analgesia pain management approach Airway patency: patent Two or more strategies used to mitigate risk of obstructive sleep apnea Cardiovascular status: acceptable Respiratory status: acceptable Hydration status: acceptable No notable events documented. MIPS #[id number] PONV Patient received an inhalational anesthetic (4554F) Patient exhibits three or more risk factors for PONV (4556F) Patient received at aset 2 prophylactic Rx PONV anti-emtic agents of different classes preop and/or intraop (G9775) MIPS # 424 Perioperative Temperature Management Anesthesia time was 60 minutes or longer (4255F) Anesthesai administered was General (inhalational or TIVA) or Neuraxial block (X0424) At least one body temperature greater than 95.8F/35.5C achieved within the 30 mins immediately prior to or the 15 minutes immediately following anesthesia end time (G9771) MIPS #477 Multimodal Pain Management Not emergent case Patient was administered multimodal pain management (two or more drugs and/or interventions excluding systemic opioids) in the periopeartive period occurring at some time between 6 hours prior to anesthesia start time until discharged from PACU (G2149) [facility] #404 Anesthesiology Smoking Abstinence The patient is not a current smoker (e.g. cigarette, cigar, pipe, e-cigarette/vaping/marijuana) If no stop here (XX404) I completed my handoff to the receiving clinician during which we: 1. Identified the patient 2. Identified the responsible provider 3. Reviewed the pertinent medical history 4. Discussed the surgical course 5. Reviewed intra-op anesthesia management and issues during anesthesia 6. Set expectations for post-procedure period 7. Allowed opportunity for questions and acknowledgement of understanding. [facility] 07-05-2022 Note Formatting of this n ote might be different from the original. maia Marcum updated via phone call on pt status. T [facility] 07-05-2022 Note Formatting of this n ote might be different from the original. maia Marcum updated via phone call on pt status. T [facility] 07-05-2022 Note Airway Date/Time: 07/05/2022 7:49 AM Urgency: scheduled Airway not difficult General Information and Staff Patient location during procedure: Procedural Anesthesiologist: Elgin Castro MD Resident/TURF FARMER: Antonio Mast APRN - TURF FARMER Performed: SRNA Indications and Patient Condition Indications for airway management: anesthesia and airway protection Sedation level: Asleep Preoxygenated: yes Patient position: sniffing MILS maintained throughout Mask difficulty assessment: 1 - vent by mask Final Airway Details Final airway type: endotracheal airway Successful airway: ETT Cuffed: yes Successful intubation technique: direct laryngoscopy Facilitating devices/methods: intubating stylet Endotracheal tube insertion site: oral Blade: Ilir Blade size: #3 ETT size (mm): 7.0 Cormack-Lehane Classification: grade I - full view of glottis Placement verified by: chest auscultation and capnometry Measured from: lips ETT to lips (cm): 21 Number of attempts at approach: 1 Ventilation between attempts: none [facility] 07-05-2022 Note OPERATIVE REPORT DATE OF SERVICE: 07/05/2022 PRE-PROCEDURE DIAGNOSIS: Infrarenal Abdominal aortic aneurysm POST-PROCEDURE DIAGNOSIS: As above PROCEDURE PERFORMED: 1) Bilateral open femoral artery exposure for delivery of endoprosthesis 2) Endovascular infrarenal abdominal aortic aneurysm repair with 29 mm Endologix [place] endograft 3) Placement of 10 mm x 37 mm Balloon expandable stent placement to the right common iliac limb 4) Palmaz stent placement to the infrarenal aortic neck SURGEON: Lana Parker MD ASSISTANTS: Jolynn Meza APRN-KARLA, Raji Ontiveros MD (PGY-1), Brian Nuñez MD FINDINGS: Type Ia endoleak present on initial completion angiography requiring placement of a Palmaz stent proximally. There is significant improvement in the type Ia endoleak with slowing of flow. Good flow throughout the aortic repair. DP and PT signals present bilaterally at the conclusion of the case. ANESTHESIA: General ESTIMATED BLOOD LOSS: 300 ml COMPLICATIONS: None SPECIMENS: None IMPLANTS: 1) 29 mm Endologix [place] Main body 2) 14 x 120 mm Ovation iX left iliac limb 3) 16 x 120 mm Ovation iX right iliac limb 4) Palmaz XL stent to Aortic neck 5) 10 x 39 mm [employer] express balloon expandable stent placement to right common iliac limb WOUND CLASS: 1 FLUORO TIME: 96.7 min DOSE: 2598 mGy CONTRAST: 118 ml INDICATIONS FOR PROCEDURE: The patient is a 72-year-old female who was found to have an infrarenal abdominal aortic aneurysm measuring approximately 5.5 cm. Endovascular repair was recommended as the patient had a significant cardiac history with ejection fraction of 30% as well as a significant pulmonary history. Risks benefits and alternatives were discussed at length with the patient and she elected to proceed. PROCEDURE IN DETAIL: Patient was taken to the operating room and placed in the supine position. General anesthesia was induced. Perioperative antibiotics were administered. The patient's abdomen and bilateral groins were prepped and draped in usual sterile fashion. A timeout was performed verifying the correct patient, side, site, and procedure to be performed. And oblique incision was made overlying the patient's right common femoral artery. Dissection was carried down through the subcutaneous tissues using electrocautery. The femoral sheath was encountered and incised. The common femoral artery was then identified and cleared of surrounding tissues both proximally and distally until approximately 4 cm of the artery had been exposed. A significant amount of scar tissue was present from prior access. Control was obtained proximally and distally using Silastic Vesseloops. This was performed in a similar fashion on the left. An access needle was then used to obtain access to the common femoral artery on the right. Seldinger technique was used to place a 6 Green[place]ic sheath. This was again performed in a similar fashion on the left with placement of an 8 [place]ic sheath. The patient was then given 6000 units of heparin for systemic anticoagulation. This was redosed throughout the case as needed. On the right, a [place] catheter was used to obtain access to the descending thoracic aorta and the Bentson wire was exchanged for a Lunderquist wire. The catheter was then removed. On the left, a pigtail catheter was positioned in the infrarenal abdominal aorta and angiography was performed. The location of the renal arteries were marked bilaterally on the screen. A 29 mm alto aortic body endograft was selected. Attempts were made to pass the main body from the right however it was unable to be passed into the infrarenal abdominal aorta through the right common iliac artery. Because of this, the decision was made to place the main body from the left. A Lunderquist wire was placed through the pigtail catheter and positioned in the descending thoracic aorta. The pigtail catheter was then removed and the main body was placed from the left up into the infrarenal abdominal aorta. On the right, a 14 [place] sheath was placed once the graft was removed. A pigtail catheter was then placed from the right and positioned in the mesenteric segment of the abdominal aorta. Angiography was performed to again locate the renal arteries bilaterally. The aortic body delivery system was advanced over the guidewire until the implant radiopaque markers were approximately 1 cm proximal to the intended landing site. The outer sheath was then retracted from the delivery system until the sheath retraction knob met the handle. The first segment of the proximal stent was then deployed by turning the first stent release knob and then steadily removing this from the handle. The white cath was then removed from the balloon injection port and inflated to open the mid crown. The balloon was then deflated. The implant radiopaque markers were then ensured to be positioned at the final proximal l (more content not included)... [facility] 07-05-2022 Note H&P reviewed. The gabriella hassan was examined and there are no changes to the H&P. The patient presents to the pre-operative area accompanied by her mother. We discussed the surgery as planned and she in her own words said that you are going to repair my abdominal aneurysm. We discussed the risks of surgery including bleeding, infection, damage to surrounding structures and cardiac event. All questions were answered. She has elected to proceed. [facility] 07-05-2022 Attending History and physical note H&P reviewed. The patient was examined and there are no changes to the H&P. The patient presents to the pre-operative area accompanied by her mother. We discussed the surgery as planned and she in her own words said that you are going to repair my abdominal aneurysm. We discussed the risks of surgery including bleeding, infection, damage to surrounding structures and cardiac event. All questions were answered. She has elected to proceed. Source Note - GABRIELLA Valle - 06/26/2022 12:00 PM EDT Images from the original note were not included. Comprehensive PreSurgical History and Physical Name: Kathy Puri : 1950 (Age-72 y.o.) Date of Service: Pt seen/examined on 06/26/2022 Procedure Information Date/Time: 07/05/22 0730 Procedures: ENDOVASCULAR REPAIR OF ABDOMINAL AORTIC ANEURYSM OPEN FEMORAL ARTERY EXPOSURE FOR DELIVERY OF ENDOVASCULAR PROSTHESIS (Bilateral) Location: [facility] OR [facility] Operating Room Surgeons: Lana Parker MD Chief Complaint: Infrarenal abdominal aortic aneurysm, without rupture (HCC) [I71.43] History Of Present Illness: 72 y.o. female who we are asked to see/evaluate by Dr. Parker for pre-operative evaluation prior to the above procedure. OV with Dr. Parker on 05/27/22 The patient is a 72 y.o. female who presents to the clinic today for discussion of AAA. She was seen by one of my previous partners for AAA with plans for endovascular repair however given her significant medical comorbidities, she was felt to need a higher level perioperative care. These include CAD s/p PCI, CHF with reduced EF (11/2021 of 15-20%), Pacemaker for tachy-erica syndrome, atrial fibrillation on Eliquis, COPD, and emphysema. She also has a history of bilateral SFA stenting. The patient reports leg pain that is present at rest and with ambulation. She also reports a history of lower back pain after a fall she sustained some months ago. When asked what she knew about her aneurysm, she responds I don't know anything but I want to know everything . She is on Eliquis (Per OSH notes) and plavix. She is on statin. She is a former smoker. ? Patient denies exertional chest pain/shortness of breath. Denies dizziness, syncope, lightheadedness. Denies fever, chills, weakness or fatigue. Patient denies hx of TIA/CVA, diabetes, asthma, DVT/PE. Patient had chest pain 1 week ago, she has a hx of intermittent chest pain, no other associated symptoms at that time, did not use her nitroglycerin, lasted less than 10 minutes and resolved without intervention, patient was doing laundry at that time, no episodes of chest pain since that time. Past Medical History: Past Medical History: No date: Anemia No date: Anxiety No date: Arrhythmia Comment: afib No date: Arthritis No date: Cancer ([facility] ([facility]) Comment: ovarian No date: CHF (congestive heart failure) ([facility] ([facility]) No date: CKD (chronic kidney disease) No date: COPD (chronic obstructive pulmonary disease) ([facility]) No date: Depression No date: GERD (gastroesophageal reflux disease) No date: Heart valve disease No date: Hyperlipidemia No date: Hypertension No date: Irritable bowel syndrome No date: Joint pain No date: Myocardial infarction ([facility]) ([facility]) No date: Pacemaker No date: PAD (peripheral artery disease) ([facility]) No date: Sleep apnea Comment: uses CPAP Past Surgical History: Past Surgical History: No date: BREAST BIOPSY; Bilateral Comment: neg No date: CORONARY STENT PLACEMENT Comment: X10 per pt. No date: HYSTERECTOMY Comment: with BSO for CA No date: INSERT / REPLACE / REMOVE PACEMAKER 2019: PACEMAKER (HISTORICAL) No date: STENT INSERTION (HISTORICAL) Comment: No date: TONSILLECTOMY Medications Prior to Admission: Current Outpatient Medications on File Prior to Visit Medication Sig Dispense Refill acetaminophen (Tylenol) 500 MG tablet Take 500 mg by mouth every 6 hours as needed. albuterol 108 (90 Base) MCG/ACT inhaler Inhale 1 - 2 puffs by mouth every 4 hours as needed for Dyspnea, wheezing amiodarone (Pacerone) 200 MG tablet Take 200 mg by mouth daily. amLODIPine (Norvasc) 2.5 MG tablet Take 2.5 mg by mouth in the morning. ascorbic acid (Vitamin C) 500 MG tablet Take 500 mg by mouth in the morning. atorvastatin (Lipitor) 40 MG tablet Take 40 mg by mouth daily. for cholesterol busPIRone (Buspar) 10 MG tablet Take 10 mg by mouth in the morning and 10 mg at noon and 10 mg in the evening. cholecalciferol (Vitamin D-3) 25 MCG (1000 UT) capsule Take 1,000 Units by mouth in the morning. clopidogrel (Plavix) 75 MG tablet Take 75 mg by mouth Nightly. dicyclomine (Bentyl) 10 MG capsule TAKE 1 CAPSULE BY MOUTH FOUR TIMES DAILY for ibs Eliquis 5 MG tablet TAKE 1 TABLET BY MOUTH TWICE DAILY (blood thinner) ferrous sulfate 325 (65 Fe) MG tablet Take 325 mg by mouth. Fluticasone-Salmeterol 500-50 MCG/ACT aerosol powder Inhale 1 puff in the morning and 1 puff in the evening. furosemide (Lasix) 40 MG tablet Take 40 mg by mouth 2 times daily. gabapentin (Neurontin) 300 MG capsule TAKE 1 CAPSULE BY MOUTH IN THE MORNING AND TAKE 2 CAPSULES BY MOUTH AT BEDTIME isosorbide mononitrate ER (Imdur) 60 MG 24 hr tablet TAKE 1 TABLET BY MOUTH DAILY FOR HEART lidocaine (Lidoderm) 5 % patch Place 1 patch on the skin in the morning and 1 patch in the evening. metoprolol tartrate (Lopressor) 100 MG tablet Take 100 mg by mouth 2 times daily. Multiple Vitamin (MULTIVITAMIN ADULT PO) Take 1 capsule by mouth in the morning. pantoprazole (ProtoNix) 40 MG EC tablet Take 40 mg by mouth daily. potassium chloride CR (K-Tab) 20 MEQ ER tablet Take 20 mEq by mouth 2 times daily. traZODone (Desyrel) 150 MG tablet Take 150 mg by mouth Nightly. Vitamin E 100 units tablet by Other route. nitroglycerin (Nitrostat) 0.4 MG SL tablet 0.4 mg sublingually every 5 minutes As Needed for Chest Pain No current facility-administered medications on file prior to visit. CHRONIC NARCOTIC USE: No Allergies: Lisinopril Can the patient take acetaminophen: Yes Social History: TOBACCO: reports that she quit smoking about 2 years ago. Her smoking use included cigarettes. She has a 22.50 pack-year smoking history. She has never used smokeless tobacco. ETOH: reports that she does not currently use alcohol. Social History Substance and Sexual Activity Drug Use Never Family History: Family History Problem Relation Name Age of Onset Hypertension Sister Hyperlipidemia Sister REVIEW OF SYSTEMS: Review of Systems Constitutional: Negative for fatigue and fever. HENT: Negative for congestion. Respiratory: Negative for cough and shortness of breath. Cardiovascular: Negative for palpitations. Gastrointestinal: Negative for diarrhea and vomiting. Skin: Negative for rash and wound. Neurological: Negative for syncope, weakness and headaches. Psychiatric/Behavioral: Negative for agitation. Physical Exam: Physical Exam Constitutional: Appearance: Normal appearance. HENT: Head: Normocephalic and atraumatic. Nose: Nose normal. Eyes: Extraocular Movements: Extraocular movements intact. Cardiovascular: Rate and Rhythm: Normal rate and regular rhythm. Heart sounds: Normal heart sounds. Pulmonary: Effort: Pulmonary effort is normal. Breath sounds: Normal breath sounds. Musculoskeletal: General: Normal range of motion. Cervical back: Neck supple. Skin: General: Skin is warm and dry. Neurological: General: No focal deficit present. Mental Status: She is alert. Psychiatric: Mood and Affect: Mood normal. Behavior: Behavior normal. Vitals: Vitals Value Taken Time BP 140/94 06/26/22 1209 Temp 35.7 C (96.3 F) 06/26/22 1209 Pulse 61 06/26/22 1209 Resp 15 06/26/22 1209 SpO2 95 % 06/26/22 1209 Labs: No results found for: WBC, HGB, HCT, MCV, PLT No results found for: NA, K, CL, CO2, BUN, CREATININE, GLUCOSE, CALCIUM, PROT, BILIRUBINFL, ALKPHOS, AST, ALT, EGFR, GLOB Chato's Simple Cardiac Risk Index: CHATO'S SIMPLE CARDIAC RISK SCORE: 3 Interpretation: 0 Points Class I 0.5% 1 Point Class II 1.3% 2 Points Class III 3.6% 3+ Points Class IV 9.1% METS >4 METS (Able to climb a flight of stairs with no chest pain or shortness of breath): Yes PAT Pain Score: Postop Pain Management Plan (Pain consult ordered?): Pain consult not indicated at this time ? EKG: Yes ordered - reviewed with MD Kirk, please see conversation below EKG ECHO and EF:Echo 06/11/22 ASSESSMENT/PLAN: Patient is considered high risk for this high risk procedure/surgery. 1) Infrarenal abdominal aortic aneurysm, without rupture (HCC) [I71.43] - Managed per surgery - Ordered per PAT protocol - EKG, CXR, T&C, T&S, CMP, CBC - Clearances per Dr. Parker's office staff below 2) Atrial fibrillation - Managed on amiodarone, Eliquis - Hold Eliquis x 2 days prior to procedure per cardiology - OP cardiology 3) CAD - Hx of IN and stent insertion 1998, 2002 - Managed on Eliquis, statin, metoprolol, Plavix, Imdur - Continue Plavix per surgeon. Hold Eliquis x 2 days prior to procedure per surgeon. 4) COPD - Continue inhalers - Patient feels her symptoms are well controlled 5) CHF - Managed on Lasix, potassium supplement - 06/11/22 EF 30% - Follows OP cardiology 6) Tachy-erica syndrome - Pacemaker placed 2020 - 02/27/22 Pacemaker check - full report scanned into media 05/29/22 7) HTN - Managed on amlodipine BP Readings from Last 3 Encounters: 06/26/22 (!) 140/94 05/27/22 132/80 8) PAD - Managed on Plavix, statin 9) CKD - Noted 10) BELLE - Noncompliant with CPAP for the past 1.5 months 11) Anemia - Continue iron supplementation 12) GERD - Continue PPI 13) Tobacco use, remote - 22.50 pack year history - Quit 2020 14) HLD - Continue statin 15) Depression - Buspar, trazodone Visit Type: Pre-Admission Testing Visit Labs Ordered: YES - PER PAT PROTOCOL Sleep Referral Ordered: NO - ALREADY DIAGNOSED WITH BELLE AND PATIENT IS NOT COMPLIANT WITH CPAP Electronically signed by: GABRIELLA Valle Date: 06/26/2022 at 12:52 PM PAT Protocol referenced includes: 1. Anesthesia Lab Protocol Orders 2. Perioperative Cardiovascular Risk Assessment 3. Anesthesia Assessment 4. Pain Assessment and Acute Pain Service Consult (if appropriate) 5. Medical Clearance/Consult from Internal Medicine ([facility]) 6. Shower/Wash Order (for designated surgeries) 7. BELLE Screen and Sleep Clinic Referral (if appropriate) [facility] [place] Phone: 07-05-2022 Note Formatting of this n ote might be different from the original. OPERATIVE REPORT DATE OF SERVICE: 07/05/2022 PRE-PROCEDURE DIAGNOSIS: Infrarenal Abdominal aortic aneurysm POST-PROCEDURE DIAGNOSIS: As above PROCEDURE PERFORMED: 1) Bilateral open femoral artery exposure for delivery of endoprosthesis 2) Endovascular infrarenal abdominal aortic aneurysm repair with 29 mm Endologix [place] endograft 3) Placement of 10 mm x 37 mm Balloon expandable stent placement to the right common iliac limb 4) Palmaz stent placement to the infrarenal aortic neck SURGEON: Lana Parker MD ASSISTANTS: Jolynn Meza APRN-OUTPATIENT PSYCHIATRIST, Raji Ontiveros MD (PGY-1), Brian Nuñez MD FINDINGS: Type Ia endoleak present on initial completion angiography requiring placement of a Palmaz stent proximally. There is significant improvement in the type Ia endoleak with slowing of flow. Good flow throughout the aortic repair. DP and PT signals present bilaterally at the conclusion of the case. ANESTHESIA: General ESTIMATED BLOOD LOSS: 300 ml COMPLICATIONS: None SPECIMENS: None IMPLANTS: 1) 29 mm Endologix [place] Main body 2) 14 x 120 mm Ovation iX left iliac limb 3) 16 x 120 mm Ovation iX right iliac limb 4) Palmaz XL stent to Aortic neck 5) 10 x 39 mm [employer] express balloon expandable stent placement to right common iliac limb WOUND CLASS: 1 FLUORO TIME: 96.7 min DOSE: 2598 mGy CONTRAST: 118 ml INDICATIONS FOR PROCEDURE: The patient is a 72-year-old female who was found to have an infrarenal abdominal aortic aneurysm measuring approximately 5.5 cm. Endovascular repair was recommended as the patient had a significant cardiac history with ejection fraction of 30% as well as a significant pulmonary history. Risks benefits and alternatives were discussed at length with the patient and she elected to proceed. PROCEDURE IN DETAIL: Patient was taken to the operating room and placed in the supine position. General anesthesia was induced. Perioperative antibiotics were administered. The patient's abdomen and bilateral groins were prepped and draped in usual sterile fashion. A timeout was performed verifying the correct patient, side, site, and procedure to be performed. And oblique incision was made overlying the patient's right common femoral artery. Dissection was carried down through the subcutaneous tissues using electrocautery. The femoral sheath was encountered and incised. The common femoral artery was then identified and cleared of surrounding tissues both proximally and distally until approximately 4 cm of the artery had been exposed. A significant amount of scar tissue was present from prior access. Control was obtained proximally and distally using Silastic Vesseloops. This was performed in a similar fashion on the left. An access needle was then used to obtain access to the common femoral artery on the right. Seldinger technique was used to place a 6 Greenlandic sheath. This was again performed in a similar fashion on the left with placement of an 8 [place]ic sheath. The patient was then given 6000 units of heparin for systemic anticoagulation. This was redosed throughout the case as needed. On the right, a [place] catheter was used to obtain access to the descending thoracic aorta and the Bentson wire was exchanged for a Lunderquist wire. The catheter was then removed. On the left, a pigtail catheter was positioned in the infrarenal abdominal aorta and angiography was performed. The location of the renal arteries were marked bilaterally on the screen. A 29 mm alto aortic body endograft was selected. Attempts were made to pass the main body from the right however it was unable to be passed into the infrarenal abdominal aorta through the right common iliac artery. Because of this, the decision was made to place the main body from the left. A Lunderquist wire was placed through the pigtail catheter and positioned in the descending thoracic aorta. The pigtail catheter was then removed and the main body was placed from the left up into the infrarenal abdominal aorta. On the right, a 14 Greenlandic sheath was placed once the graft was removed. A pigtail catheter was then placed from the right and positioned in the mesenteric segment of the abdominal aorta. Angiography was performed to again locate the renal arteries bilaterally. The aortic body delivery system was advanced over the guidewire until the implant radiopaque markers were approximately 1 cm proximal to the intended landing site. The outer sheath was then retracted from the delivery system until the sheath retraction knob met the handle. The first segment of the proximal stent was then deployed by turning the first stent release knob and then steadily removing this from the handle. The white cath was then removed from the balloon injection port and inflated to open the mid crown. The balloon was then deflated. The implant radiopaque markers were then ensured to be positioned at the final proximal landing site. The remainder of the proximal stent was then deployed. The polymer injection port was then opened and the syringe was attached with the autoinjector. The aortic body guidewire was retracted back until the stiff the floppy transition was with in the ipsilateral limb. Once 15 minutes had passed, balloon angioplasty was performed to ensure adequate apposition. Once completely filled, the delivery system was removed and a 16 Green[place]ic sheath was placed on the left. As the pollen refilled, the contralateral gate appeared to be superimposed on the ipsilateral limb. Because of this, the decision was made to place the ipsilateral limb prior to the contralateral limb in order to ensure access into the contralateral gate. A pigtail catheter was placed through the ipsilateral limb and angiography was performed from the femoral sheath to marco the approximate location of the internal iliac artery takeoff. A 14 x 120 mm ovation iX iliac limb was selected. The pigtail catheter was removed after placement of the Lunderquist wire and the limb was appropriately positioned and deployed. From the contralateral side, attempts were made to access the gate and despite multiple attempts with multiple different catheters and wires this was unable to be successfully completed. Because of this, an Omni Flush catheter as well as a Glidewire were used from the ipsilateral side to come up and over the aortic body and out to the contralateral gate. The wire was then snared from the right and the wire was brought out through the right side sheath. The pigtail catheter was then placed over the Glidewire and positioned in the aortic body. The wire was then removed. Angiography was performed to the sheath to marco the approximate location of the right internal iliac artery. A 16 x 120 mm ovation iX limb was selected. The Lunderquist wire was then placed in the pigtail catheter and positioned in the distal descending thoracic aorta. The pigtail catheter was then removed and the limb was positioned and deployed. The delivery system was then removed. Lunderquist wires were then positioned from both sides above the level of the graft. Balloon angioplasty was then performed of the overlap of the limbs as well as into the iliac vessels to ensure adequate seal using 12 mm balloons. The balloons were then removed. As there was difficulty with passing anything larger than a 12 Greenlandic catheter from the right, the decision was made to place a balloon expandable stent at the approximate location of the right common iliac artery origin to ensure the limb had extra support. This was appropriately positioned and deployed with balloon protection on the left to ensure the limb was not crushed. A 10 x 39 mm balloon expandable stent was placed and deployed to graft apposition. A [place] catheter was then positioned in the abdominal aorta with removal of the Lunderquist wire from the right. The pigtail catheter was then placed in the mesenteric segment of the abdominal aorta from the right to perform completion angiography. On completion angiography, there was good filling of the mesenteric vessels as well as the bilateral renal arteries. There was a type Ia endoleak present is on the left does not appear that the polymer met the aortic neck with appropriate apposition. Distally there did not appear to be a type II or type III endoleak with good wall apposition. Because of the presence of a type Ia endoleak, a pulm stent was brought onto the field and prepared over the Q50 X balloon. The sheath was advanced to the level of the renal arteries from the left. The Palmaz stent was then placed through the sheath and positioned the sheath was then pulled back exposing the stent. Stent was then deployed at the proximal portion of the aortic graft to the level of the renal arteries. Completion angiography after deployment of the Palmaz stent revealed improvement in the type Ia endoleak with only a small amount of contrast visualized. As the patient remained heparinized and there was significant improvement, the decision was made to conclude the case. All catheters and wires were removed. On the right, the sheath was removed and control was obtained of the proximal common femoral artery using a Kartchner clamp. A DeBakey clamp was used to control the distal common femoral artery. The artery was flushed with heparinized saline and repaired with interrupted 5-0 Prolene suture. Prior to completion of the repair, backbleeding and forward bleeding was allowed in order to vent the artery of air and debris. The repair was then completed. Inflow was then restored followed by outflow. A good pulse was present at the common femoral artery and good Doppler signals were obtained distally from the repair this was performed in a similar fashion on the left also with good inflow noted and a good Doppler signal obtained distal to the repair. Hemostasis was achieved at each of the incisions. Patient was given protamine for reversal of anticoagulation. Once hemostasis was secured we proceeded with closure. The femoral sheath was reapproximated using 2-0 Vicryl suture. The subcutaneous tissues were reapproximated using 3-0 Vicryl suture. 3-0 Vicryl deep dermal sutures were then placed followed by running 4-0 Monocryl subcuticular suture at this end. Dermabond skin glue was placed as sterile dressing. All sponge and needle counts were correct at the conclusion of the case The patient was awakened from general anesthesia and transferred to the recovery area in stable condition. DP and PT signals were present at the conclusion of the case. Lana Parker MD Vascular Surgery T [facility] 07-05-2022 Note Formatting of this n ote is different from the original. Date: 07/05/2022 Location: [facility] OR Name: Kathy Puri, : 1950, Diagnosis Pre-op Diagnosis * Infrarenal abdominal aortic aneurysm, without rupture (HCC) [I71.43] Post-op Diagnosis * Infrarenal abdominal aortic aneurysm, without rupture (HCC) [I71.43] Procedures ENDOVASCULAR REPAIR OF ABDOMINAL AORTIC ANEURYSM 47409 - [place] EVASC RPR DPLMNT [id number] OPEN FEMORAL ARTERY EXPOSURE FOR DELIVERY OF ENDOVASCULAR PROSTHESIS 70854 - [place] OPN FEM ART EXPOS DLVR EVASC PROSTH UNI Surgeons * Lana Parker - Primary * Brian Nuñez - Assisting Procedure Summary Anesthesia: General ASA: IV Estimated Blood Loss: Minimal Drains: Urethral Catheter 16 Fr. (Active) Implants Type Name Action Serial No. Stent TM ABDOMINAL STENT GRAFT SYSTEM Implanted Stent ILIAC STENT GRAFT Implanted Stent ILIAC STENT GRAFT Implanted Stent palmaz xl Implanted Stent LD Iliac/Biliary Implanted Stent STENT CARLOS 10MM 7FR 25MM 135CM - [id number] Implanted Staff: Image Scientist: Georgina Daley RN Nurse Practitioner: Jolynn Meza, ATHLETIC TRAINER - OUTPATIENT PSYCHIATRIST Relief Scrub: Fercho Crystal Scrub Person: Landy David Findings: See full op note for details. Complications: None; patient tolerated the procedure well. Specimens Collected: Order Name Source Comment Collection Info Order Time POTASSIUM WITH MG REFLEX For patients on dialysis to draw potassium day of surgery 07/05/2022 6:13 AM PROTHROMBIN TIME If patient on coumadin within 4 days prior. 07/05/2022 6:13 AM Wound Class: Class I: Clean Blood Products: None Prophylactic Antibiotics: Procedure appropriate prophylactic antibiotic(s) given within 1 hour of surgical incision (two hours if receiving Vancomycin or flouroquinolone) [facility] 07-05-2022 Note Formatting of this n ote might be different from the original. OPERATIVE REPORT DATE OF SERVICE: 07/05/2022 PRE-PROCEDURE DIAGNOSIS: Infrarenal Abdominal aortic aneurysm POST-PROCEDURE DIAGNOSIS: As above PROCEDURE PERFORMED: 1) Bilateral open femoral artery exposure for delivery of endoprosthesis 2) Endovascular infrarenal abdominal aortic aneurysm repair with 29 mm Endologix [place] endograft 3) Placement of 10 mm x 37 mm Balloon expandable stent placement to the right common iliac limb 4) Palmaz stent placement to the infrarenal aortic neck SURGEON: Lana Parker MD ASSISTANTS: Jolynn Meza APRN-KARLA, Raji Ontiveros MD (PGY-1), Brian Nuñez MD FINDINGS: Type Ia endoleak present on initial completion angiography requiring placement of a Palmaz stent proximally. There is significant improvement in the type Ia endoleak with slowing of flow. Good flow throughout the aortic repair. DP and PT signals present bilaterally at the conclusion of the case. ANESTHESIA: General ESTIMATED BLOOD LOSS: 300 ml COMPLICATIONS: None SPECIMENS: None IMPLANTS: 1) 29 mm Endologix [place] Main body 2) 14 x 120 mm Ovation iX left iliac limb 3) 16 x 120 mm Ovation iX right iliac limb 4) Palmaz XL stent to Aortic neck 5) 10 x 39 mm [employer] express balloon expandable stent placement to right common iliac limb WOUND CLASS: 1 FLUORO TIME: 96.7 min DOSE: 2598 mGy CONTRAST: 118 ml INDICATIONS FOR PROCEDURE: The patient is a 72-year-old female who was found to have an infrarenal abdominal aortic aneurysm measuring approximately 5.5 cm. Endovascular repair was recommended as the patient had a significant cardiac history with ejection fraction of 30% as well as a significant pulmonary history. Risks benefits and alternatives were discussed at length with the patient and she elected to proceed. PROCEDURE IN DETAIL: Patient was taken to the operating room and placed in the supine position. General anesthesia was induced. Perioperative antibiotics were administered. The patient's abdomen and bilateral groins were prepped and draped in usual sterile fashion. A timeout was performed verifying the correct patient, side, site, and procedure to be performed. And oblique incision was made overlying the patient's right common femoral artery. Dissection was carried down through the subcutaneous tissues using electrocautery. The femoral sheath was encountered and incised. The common femoral artery was then identified and cleared of surrounding tissues both proximally and distally until approximately 4 cm of the artery had been exposed. A significant amount of scar tissue was present from prior access. Control was obtained proximally and distally using Silastic Vesseloops. This was performed in a similar fashion on the left. An access needle was then used to obtain access to the common femoral artery on the right. Seldinger technique was used to place a 6 Green[place]ic sheath. This was again performed in a similar fashion on the left with placement of an 8 [place]ic sheath. The patient was then given 6000 units of heparin for systemic anticoagulation. This was redosed throughout the case as needed. On the right, a Adam catheter was used to obtain access to the descending thoracic aorta and the Bentson wire was exchanged for a Lunderquist wire. The catheter was then removed. On the left, a pigtail catheter was positioned in the infrarenal abdominal aorta and angiography was performed. The location of the renal arteries were marked bilaterally on the screen. A 29 mm alto aortic body endograft was selected. Attempts were made to pass the main body from the right however it was unable to be passed into the infrarenal abdominal aorta through the right common iliac artery. Because of this, the decision was made to place the main body from the left. A Lunderquist wire was placed through the pigtail catheter and positioned in the descending thoracic aorta. The pigtail catheter was then removed and the main body was placed from the left up into the infrarenal abdominal aorta. On the right, a 14 Greenlandic sheath was placed once the graft was removed. A pigtail catheter was then placed from the right and positioned in the mesenteric segment of the abdominal aorta. Angiography was performed to again locate the renal arteries bilaterally. The aortic body delivery system was advanced over the guidewire until the implant radiopaque markers were approximately 1 cm proximal to the intended landing site. The outer sheath was then retracted from the delivery system until the sheath retraction knob met the handle. The first segment of the proximal stent was then deployed by turning the first stent release knob and then steadily removing this from the handle. The white cath was then removed from the balloon injection port and inflated to open the mid crown. The balloon was then deflated. The implant radiopaque markers were then ensured to be positioned at the final proximal landing site. The remainder of the proximal stent was then deployed. The polymer injection port was then opened and the syringe was attached with the autoinjector. The aortic body guidewire was retracted back until the stiff the floppy transition was with in the ipsilateral limb. Once 15 minutes had passed, balloon angioplasty was performed to ensure adequate apposition. Once completely filled, the delivery system was removed and a 16 Green[place]ic sheath was placed on the left. As the pollen refilled, the contralateral gate appeared to be superimposed on the ipsilateral limb. Because of this, the decision was made to place the ipsilateral limb prior to the contralateral limb in order to ensure access into the contralateral gate. A pigtail catheter was placed through the ipsilateral limb and angiography was performed from the femoral sheath to marco the approximate location of the internal iliac artery takeoff. A 14 x 120 mm ovation iX iliac limb was selected. The pigtail catheter was removed after placement of the Lunderquist wire and the limb was appropriately positioned and deployed. From the contralateral side, attempts were made to access the gate and despite multiple attempts with multiple different catheters and wires this was unable to be successfully completed. Because of this, an Omni Flush catheter as well as a Glidewire were used from the ipsilateral side to come up and over the aortic body and out to the contralateral gate. The wire was then snared from the right and the wire was brought out through the right side sheath. The pigtail catheter was then placed over the Glidewire and positioned in the aortic body. The wire was then removed. Angiography was performed to the sheath to marco the approximate location of the right internal iliac artery. A 16 x 120 mm ovation iX limb was selected. The Lunderquist wire was then placed in the pigtail catheter and positioned in the distal descending thoracic aorta. The pigtail catheter was then removed and the limb was positioned and deployed. The delivery system was then removed. Lunderquist wires were then positioned from both sides above the level of the graft. Balloon angioplasty was then performed of the overlap of the limbs as well as into the iliac vessels to ensure adequate seal using 12 mm balloons. The balloons were then removed. As there was difficulty with passing anything larger than a 12 Green[place]ic catheter from the right, the decision was made to place a balloon expandable stent at the approximate location of the right common iliac artery origin to ensure the limb had extra support. This was appropriately positioned and deployed with balloon protection on the left to ensure the limb was not crushed. A 10 x 39 mm balloon expandable stent was placed and deployed to graft apposition. A Adam catheter was then positioned in the abdominal aorta with removal of the Lunderquist wire from the right. The pigtail catheter was then placed in the mesenteric segment of the abdominal aorta from the right to perform completion angiography. On completion angiography, there was good filling of the mesenteric vessels as well as the bilateral renal arteries. There was a type Ia endoleak present is on the left does not appear that the polymer met the aortic neck with appropriate apposition. Distally there did not appear to be a type II or type III endoleak with good wall apposition. Because of the presence of a type Ia endoleak, a pulm stent was brought onto the field and prepared over the Q50 X balloon. The sheath was advanced to the level of the renal arteries from the left. The Palmaz stent was then placed through the sheath and positioned the sheath was then pulled back exposing the stent. Stent was then deployed at the proximal portion of the aortic graft to the level of the renal arteries. Completion angiography after deployment of the Palmaz stent revealed improvement in the type Ia endoleak with only a small amount of contrast visualized. As the patient remained heparinized and there was significant improvement, the decision was made to conclude the case. All catheters and wires were removed. On the right, the sheath was removed and control was obtained of the proximal common femoral artery using a Kartchner clamp. A DeBakey clamp was used to control the distal common femoral artery. The artery was flushed with heparinized saline and repaired with interrupted 5-0 Prolene suture. Prior to completion of the repair, backbleeding and forward bleeding was allowed in order to vent the artery of air and debris. The repair was then completed. Inflow was then restored followed by outflow. A good pulse was present at the common femoral artery and good Doppler signals were obtained distally from the repair this was performed in a similar fashion on the left also with good inflow noted and a good Doppler signal obtained distal to the repair. Hemostasis was achieved at each of the incisions. Patient was given protamine for reversal of anticoagulation. Once hemostasis was secured we proceeded with closure. The femoral sheath was reapproximated using 2-0 Vicryl suture. The subcutaneous tissues were reapproximated using 3-0 Vicryl suture. 3-0 Vicryl deep dermal sutures were then placed followed by running 4-0 Monocryl subcuticular suture at this end. Dermabond skin glue was placed as sterile dressing. All sponge and needle counts were correct at the conclusion of the case The patient was awakened from general anesthesia and transferred to the recovery area in stable condition. DP and PT signals were present at the conclusion of the case. Lana Parker MD Vascular Surgery T [facility] 07-05-2022 Note Formatting of this n ote is different from the original. Date: 07/05/2022 Location: [facility] OR Name: Kathy Puri, : 1950, Diagnosis Pre-op Diagnosis * Infrarenal abdominal aortic aneurysm, without rupture (HCC) [I71.43] Post-op Diagnosis * Infrarenal abdominal aortic aneurysm, without rupture (HCC) [I71.43] Procedures ENDOVASCULAR REPAIR OF ABDOMINAL AORTIC ANEURYSM 16529 - [place] EVASC RPR DPLMNT [id number] NDGFT OPEN FEMORAL ARTERY EXPOSURE FOR DELIVERY OF ENDOVASCULAR PROSTHESIS 07081 - [place] OPN FEM ART EXPOS DLVR EVASC PROSTH UNI Surgeons * Lana Parker - Primary * Brian Nuñez - Assisting Procedure Summary Anesthesia: General ASA: IV Estimated Blood Loss: Minimal Drains: Urethral Catheter 16 Fr. (Active) Implants Type Name Action Serial No. Stent TM ABDOMINAL STENT GRAFT SYSTEM Implanted Stent ILIAC STENT GRAFT Implanted Stent ILIAC STENT GRAFT Implanted Stent palmaz xl Implanted Stent LD Iliac/Biliary Implanted Stent STENT CARLOS 10MM 7FR 25MM 135CM - [id number] Implanted Staff: Image Scientist: Georgina Daley RN Nurse Practitioner: Jolynn Meza APRN - OUTPATIENT PSYCHIATRIST Relief Scrub: Fercho Crystal Scrub Person: Landy David Findings: See full op note for details. Complications: None; patient tolerated the procedure well. Specimens Collected: Order Name Source Comment Collection Info Order Time POTASSIUM WITH MG REFLEX For patients on dialysis to draw potassium day of surgery 07/05/2022 6:13 AM PROTHROMBIN TIME If patient on coumadin within 4 days prior. 07/05/2022 6:13 AM Wound Class: Class I: Clean Blood Products: None Prophylactic Antibiotics: Procedure appropriate prophylactic antibiotic(s) given within 1 hour of surgical incision (two hours if receiving Vancomycin or flouroquinolone) [facility] 07-05-2022 History and physical note H&P reviewed. The patient was examined and there are no changes to the H&P. The patient presents to the pre-operative area accompanied by her mother. We discussed the surgery as planned and she in her own words said that you are going to repair my abdominal aneurysm. We discussed the risks of surgery including bleeding, infection, damage to surrounding structures and cardiac event. All questions were answered. She has elected to proceed. Source Note - GABRIELLA Valle - 06/26/2022 12:00 PM EDT Images from the original note were not included. Comprehensive PreSurgical History and Physical Name: Kathy Puri : 1950 (Age-72 y.o.) Date of Service: Pt seen/examined on 06/26/2022 Procedure Information Date/Time: 07/05/22 0730 Procedures: ENDOVASCULAR REPAIR OF ABDOMINAL AORTIC ANEURYSM OPEN FEMORAL ARTERY EXPOSURE FOR DELIVERY OF ENDOVASCULAR PROSTHESIS (Bilateral) Location: [facility] OR [facility] Operating Room Surgeons: Lana Parker MD Chief Complaint: Infrarenal abdominal aortic aneurysm, without rupture (HCC) [I71.43] History Of Present Illness: 72 y.o. female who we are asked to see/evaluate by Dr. Parker for pre-operative evaluation prior to the above procedure. OV with Dr. Parker on 05/27/22 The patient is a 72 y.o. female who presents to the clinic today for discussion of AAA. She was seen by one of my previous partners for AAA with plans for endovascular repair however given her significant medical comorbidities, she was felt to need a higher level perioperative care. These include CAD s/p PCI, CHF with reduced EF (11/2021 of 15-20%), Pacemaker for tachy-erica syndrome, atrial fibrillation on Eliquis, COPD, and emphysema. She also has a history of bilateral SFA stenting. The patient reports leg pain that is present at rest and with ambulation. She also reports a history of lower back pain after a fall she sustained some months ago. When asked what she knew about her aneurysm, she responds I don't know anything but I want to know everything . She is on Eliquis (Per OSH notes) and plavix. She is on statin. She is a former smoker. ? Patient denies exertional chest pain/shortness of breath. Denies dizziness, syncope, lightheadedness. Denies fever, chills, weakness or fatigue. Patient denies hx of TIA/CVA, diabetes, asthma, DVT/PE. Patient had chest pain 1 week ago, she has a hx of intermittent chest pain, no other associated symptoms at that time, did not use her nitroglycerin, lasted less than 10 minutes and resolved without intervention, patient was doing laundry at that time, no episodes of chest pain since that time. Past Medical History: Past Medical History: No date: Anemia No date: Anxiety No date: Arrhythmia Comment: afib No date: Arthritis No date: Cancer ([facility] ([facility]) Comment: ovarian No date: CHF (congestive heart failure) ([facility] ([facility]) No date: CKD (chronic kidney disease) No date: COPD (chronic obstructive pulmonary disease) ([facility]) No date: Depression No date: GERD (gastroesophageal reflux disease) No date: Heart valve disease No date: Hyperlipidemia No date: Hypertension No date: Irritable bowel syndrome No date: Joint pain No date: Myocardial infarction ([facility]) ([facility]) No date: Pacemaker No date: PAD (peripheral artery disease) (HCC) No date: Sleep apnea Comment: uses CPAP Past Surgical History: Past Surgical History: No date: BREAST BIOPSY; Bilateral Comment: neg No date: CORONARY STENT PLACEMENT Comment: X10 per pt. No date: HYSTERECTOMY Comment: with BSO for CA No date: INSERT / REPLACE / REMOVE PACEMAKER 2019: PACEMAKER (HISTORICAL) No date: STENT INSERTION (HISTORICAL) Comment: No date: TONSILLECTOMY Medications Prior to Admission: Current Outpatient Medications on File Prior to Visit Medication Sig Dispense Refill acetaminophen (Tylenol) 500 MG tablet Take 500 mg by mouth every 6 hours as needed. albuterol 108 (90 Base) MCG/ACT inhaler Inhale 1 - 2 puffs by mouth every 4 hours as needed for Dyspnea, wheezing amiodarone (Pacerone) 200 MG tablet Take 200 mg by mouth daily. amLODIPine (Norvasc) 2.5 MG tablet Take 2.5 mg by mouth in the morning. ascorbic acid (Vitamin C) 500 MG tablet Take 500 mg by mouth in the morning. atorvastatin (Lipitor) 40 MG tablet Take 40 mg by mouth daily. for cholesterol busPIRone (Buspar) 10 MG tablet Take 10 mg by mouth in the morning and 10 mg at noon and 10 mg in the evening. cholecalciferol (Vitamin D-3) 25 MCG (1000 UT) capsule Take 1,000 Units by mouth in the morning. clopidogrel (Plavix) 75 MG tablet Take 75 mg by mouth Nightly. dicyclomine (Bentyl) 10 MG capsule TAKE 1 CAPSULE BY MOUTH FOUR TIMES DAILY for ibs Eliquis 5 MG tablet TAKE 1 TABLET BY MOUTH TWICE DAILY (blood thinner) ferrous sulfate 325 (65 Fe) MG tablet Take 325 mg by mouth. Fluticasone-Salmeterol 500-50 MCG/ACT aerosol powder Inhale 1 puff in the morning and 1 puff in the evening. furosemide (Lasix) 40 MG tablet Take 40 mg by mouth 2 times daily. gabapentin (Neurontin) 300 MG capsule TAKE 1 CAPSULE BY MOUTH IN THE MORNING AND TAKE 2 CAPSULES BY MOUTH AT BEDTIME isosorbide mononitrate ER (Imdur) 60 MG 24 hr tablet TAKE 1 TABLET BY MOUTH DAILY FOR HEART lidocaine (Lidoderm) 5 % patch Place 1 patch on the skin in the morning and 1 patch in the evening. metoprolol tartrate (Lopressor) 100 MG tablet Take 100 mg by mouth 2 times daily. Multiple Vitamin (MULTIVITAMIN ADULT PO) Take 1 capsule by mouth in the morning. pantoprazole (ProtoNix) 40 MG EC tablet Take 40 mg by mouth daily. potassium chloride CR (K-Tab) 20 MEQ ER tablet Take 20 mEq by mouth 2 times daily. traZODone (Desyrel) 150 MG tablet Take 150 mg by mouth Nightly. Vitamin E 100 units tablet by Other route. nitroglycerin (Nitrostat) 0.4 MG SL tablet 0.4 mg sublingually every 5 minutes As Needed for Chest Pain No current facility-administered medications on file prior to visit. CHRONIC NARCOTIC USE: No Allergies: Lisinopril Can the patient take acetaminophen: Yes Social History: TOBACCO: reports that she quit smoking about 2 years ago. Her smoking use included cigarettes. She has a 22.50 pack-year smoking history. She has never used smokeless tobacco. ETOH: reports that she does not currently use alcohol. Social History Substance and Sexual Activity Drug Use Never Family History: Family History Problem Relation Name Age of Onset Hypertension Sister Hyperlipidemia Sister REVIEW OF SYSTEMS: Review of Systems Constitutional: Negative for fatigue and fever. HENT: Negative for congestion. Respiratory: Negative for cough and shortness of breath. Cardiovascular: Negative for palpitations. Gastrointestinal: Negative for diarrhea and vomiting. Skin: Negative for rash and wound. Neurological: Negative for syncope, weakness and headaches. Psychiatric/Behavioral: Negative for agitation. Physical Exam: Physical Exam Constitutional: Appearance: Normal appearance. HENT: Head: Normocephalic and atraumatic. Nose: Nose normal. Eyes: Extraocular Movements: Extraocular movements intact. Cardiovascular: Rate and Rhythm: Normal rate and regular rhythm. Heart sounds: Normal heart sounds. Pulmonary: Effort: Pulmonary effort is normal. Breath sounds: Normal breath sounds. Musculoskeletal: General: Normal range of motion. Cervical back: Neck supple. Skin: General: Skin is warm and dry. Neurological: General: No focal deficit present. Mental Status: She is alert. Psychiatric: Mood and Affect: Mood normal. Behavior: Behavior normal. Vitals: Vitals Value Taken Time BP 140/94 06/26/22 1209 Temp 35.7 C (96.3 F) 06/26/22 1209 Pulse 61 06/26/22 1209 Resp 15 06/26/22 1209 SpO2 95 % 06/26/22 1209 Labs: No results found for: WBC, HGB, HCT, MCV, PLT No results found for: NA, K, CL, CO2, BUN, CREATININE, GLUCOSE, CALCIUM, PROT, BILIRUBINFL, ALKPHOS, AST, ALT, EGFR, GLOB Chato's Simple Cardiac Risk Index: CHATO'S SIMPLE CARDIAC RISK SCORE: 3 Interpretation: 0 Points Class I 0.5% 1 Point Class II 1.3% 2 Points Class III 3.6% 3+ Points Class IV 9.1% METS >4 METS (Able to climb a flight of stairs with no chest pain or shortness of breath): Yes PAT Pain Score: Postop Pain Management Plan (Pain consult ordered?): Pain consult not indicated at this time ? EKG: Yes ordered - reviewed with MD Kirk, please see conversation below EKG ECHO and EF:Echo 06/11/22 ASSESSMENT/PLAN: Patient is considered high risk for this high risk procedure/surgery. 1) Infrarenal abdominal aortic aneurysm, without rupture (HCC) [I71.43] - Managed per surgery - Ordered per PAT protocol - EKG, CXR, T&C, T&S, CMP, CBC - Clearances per Dr. Parker's office staff below 2) Atrial fibrillation - Managed on amiodarone, Eliquis - Hold Eliquis x 2 days prior to procedure per cardiology - OP cardiology 3) CAD - Hx of IN and stent insertion 1998, 2002 - Managed on Eliquis, statin, metoprolol, Plavix, Imdur - Continue Plavix per surgeon. Hold Eliquis x 2 days prior to procedure per surgeon. 4) COPD - Continue inhalers - Patient feels her symptoms are well controlled 5) CHF - Managed on Lasix, potassium supplement - 06/11/22 EF 30% - Follows OP cardiology 6) Tachy-erica syndrome - Pacemaker placed 2020 - 02/27/22 Pacemaker check - full report scanned into media 05/29/22 7) HTN - Managed on amlodipine BP Readings from Last 3 Encounters: 06/26/22 (!) 140/94 05/27/22 132/80 8) PAD - Managed on Plavix, statin 9) CKD - Noted 10) BELLE - Noncompliant with CPAP for the past 1.5 months 11) Anemia - Continue iron supplementation 12) GERD - Continue PPI 13) Tobacco use, remote - 22.50 pack year history - Quit 2020 14) HLD - Continue statin 15) Depression - Buspar, trazodone Visit Type: Pre-Admission Testing Visit Labs Ordered: YES - PER PAT PROTOCOL Sleep Referral Ordered: NO - ALREADY DIAGNOSED WITH BELLE AND PATIENT IS NOT COMPLIANT WITH CPAP Electronically signed by: GABRIELLA Valle Date: 06/26/2022 at 12:52 PM PAT Protocol referenced includes: 1. Anesthesia Lab Protocol Orders 2. Perioperative Cardiovascular Risk Assessment 3. Anesthesia Assessment 4. Pain Assessment and Acute Pain Service Consult (if appropriate) 5. Medical Clearance/Consult from Internal Medicine (IMS) 6. Shower/Wash Order (for designated surgeries) 7. BELLE Screen and Sleep Clinic Referral (if appropriate) documented in this encounter [facility] 06-28-2022 Telephone encounter Note I have tried to call patient back for 2 days her voice mail box is full. At no point in her OV or in surgical scheduling did she mention a senior care. I find nothing in her chart. Trying to find out what facility called. [facility] 06-28-2022 Miscellaneous Notes I have tried to call patient back for 2 days her voice mail box is full. At no point in her OV or in surgical scheduling did she mention a senior care. I find nothing in her chart. Trying to find out what facility called. ALYSSIA Spoke with Matt at nursing facility that patient resides in, nurse asking what medications are to be held/continued. Below information given SURGERY: ENDOVASCULAR REPAIR OF AAA DATE OF SURGERY: 07/05/2022 7:30 AM PRE TESTIN06/26/2022 12:00 AUTH #: [id number] CARDIAC CLEARANCE YES CARDIAC DR TREVIÑO , PULMONARY DR MARX 05/28/2022 POST OP OR OV: 07/17/2022 10:15 MEDS TO HOLD: ELIQUIS HOLD 48 HOURS PRIOR, THE MORNING OF SURGERY HOLD FUROSEMIDE MEDS TO CONTINUE: PLAVIX, OTHERS documented in this encounter [facility] 06-27-2022 Telephone encounter Note ALYSSIA Spoke with Matt at nursing facility that patient resides in, nurse asking what medications are to be held/continued. Below information given [facility] 06-27-2022 Miscellaneous Notes ALYSSIA Spoke with Matt at nursing facility that patient resides in, nurse asking what medications are to be held/continued. Below information given SURGERY: ENDOVASCULAR REPAIR OF AAA DATE OF SURGERY: 07/05/2022 7:30 AM PRE TESTIN06/26/2022 12:00 AUTH #: [id number] CARDIAC CLEARANCE YES CARDIAC DR TREVIÑO , PULMONARY DR MARX 05/28/2022 POST OP OR OV: 07/17/2022 10:15 MEDS TO HOLD: ELIQUIS HOLD 48 HOURS PRIOR, THE MORNING OF SURGERY HOLD FUROSEMIDE MEDS TO CONTINUE: PLAVIX, OTHERS documented in this encounter [facility] 06-26-2022 Note Patient: Kathy tierney Procedure Information Date/Time: 07/05/22 0730 Procedures: ENDOVASCULAR REPAIR OF ABDOMINAL AORTIC ANEURYSM OPEN FEMORAL ARTERY EXPOSURE FOR DELIVERY OF ENDOVASCULAR PROSTHESIS (Bilateral) Location: [facility] OR [facility] Operating Room Surgeons: Lana Parker MD Past Medical History: Past Medical History: No date: Anemia No date: Anxiety No date: Arrhythmia Comment: afib No date: Arthritis No date: Cancer (CMS/HCC) (HCC) Comment: ovarian No date: CHF (congestive heart failure) ([facility] ([facility]) No date: CKD (chronic kidney disease) No date: COPD (chronic obstructive pulmonary disease) ([facility]) No date: Depression No date: GERD (gastroesophageal reflux disease) No date: Heart valve disease No date: Hyperlipidemia No date: Hypertension No date: Irritable bowel syndrome No date: Joint pain No date: Myocardial infarction ([facility] ([facility]) No date: Pacemaker No date: PAD (peripheral artery disease) ([facility]) No date: Sleep apnea Comment: uses CPAP Past Surgical History: Past Surgical History: No date: BREAST BIOPSY; Bilateral Comment: neg No date: CORONARY STENT PLACEMENT Comment: X10 per pt. No date: HYSTERECTOMY Comment: with BSO for CA No date: INSERT / REPLACE / REMOVE PACEMAKER 2019: PACEMAKER (HISTORICAL) No date: STENT INSERTION (HISTORICAL) Comment: No date: TONSILLECTOMY Social History: TOBACCO: reports that she quit smoking about 2 years ago. Her smoking use included cigarettes. She has a 22.50 pack-year smoking history. She has never used smokeless tobacco. ETOH: reports that she does not currently use alcohol. Social History Substance and Sexual Activity Drug Use Never Family History: Family History Problem Relation Name Age of Onset ? Hypertension Sister ? Hyperlipidemia Sister Screening: Hysterectomy Clinical information reviewed: Tobacco Allergies Meds Med Hx Surg Hx OB Status Fam Hx Soc Hx Physical Exam Airway Mallampati: II TM distance: >3 FB Neck ROM: full Mouth Open: normalendotracheal tube not in place Cardiovascular Dental (+) Upper Dentures, Missing Pulmonary Abdominal Anesthesia Plan ASA 4 general The patient is not a current smoker. Anesthetic plan and risks discussed with patient. Use of blood products discussed with who consented to blood products. General ERAS BELLE Screening +BELLE +CPAP non compliant last 1.5 months Labs: No results found for: WBC, HGB, HCT, MCV, PLT No results found for: NA, K, CL, CO2, BUN, CREATININE, GLUCOSE, CALCIUM, PROT, BILIRUBINFL, ALKPHOS, AST, ALT, EGFR, GLOB - Clearances per Dr. Parker's office staff below EKG 06/26/2022 IMPRESSION: Atrial-paced rhythm Incomplete left bundle branch block ST depr, consider ischemia, anterolateral lds Was reviewed by Dr Kirk No need for further work up ECHO and EF:Echo 06/11/22 ?Pacemaker [employer] scanned into media last check 02/2022 No echocardiogram results found for the past 14 days No results found for this or any previous visit. [facility] 06-26-2022 Note Comprehensive PreSur gical History and Physical Name: Kathy Puri : 1950 (Age-72 y.o.) Date of Service: Pt seen/examined on 06/26/2022 Procedure Information Date/Time: 07/05/22 0730 Procedures: ENDOVASCULAR REPAIR OF ABDOMINAL AORTIC ANEURYSM OPEN FEMORAL ARTERY EXPOSURE FOR DELIVERY OF ENDOVASCULAR PROSTHESIS (Bilateral) Location: [facility] OR [facility] Operating Room Surgeons: Lana Parker MD Chief Complaint: Infrarenal abdominal aortic aneurysm, without rupture (HCC) [I71.43] History Of Present Illness: 72 y.o. female who we are asked to see/evaluate by Dr. Parker for pre-operative evaluation prior to the above procedure. OV with Dr. Parker on 05/27/22 The patient is a 72 y.o. female who presents to the clinic today for discussion of AAA. She was seen by one of my previous partners for AAA with plans for endovascular repair however given her significant medical comorbidities, she was felt to need a higher level perioperative care. These include CAD s/p PCI, CHF with reduced EF (11/2021 of 15-20%), Pacemaker for tachy-erica syndrome, atrial fibrillation on Eliquis, COPD, and emphysema. She also has a history of bilateral SFA stenting. The patient reports leg pain that is present at rest and with ambulation. She also reports a history of lower back pain after a fall she sustained some months ago. When asked what she knew about her aneurysm, she responds I don't know anything but I want to know everything . She is on Eliquis (Per OSH notes) and plavix. She is on statin. She is a former smoker. ? Patient denies exertional chest pain/shortness of breath. Denies dizziness, syncope, lightheadedness. Denies fever, chills, weakness or fatigue. Patient denies hx of TIA/CVA, diabetes, asthma, DVT/PE. Patient had chest pain 1 week ago, she has a hx of intermittent chest pain, no other associated symptoms at that time, did not use her nitroglycerin, lasted less than 10 minutes and resolved without intervention, patient was doing laundry at that time, no episodes of chest pain since that time. Past Medical History: Past Medical History: No date: Anemia No date: Anxiety No date: Arrhythmia Comment: afib No date: Arthritis No date: Cancer ([facility] ([facility]) Comment: ovarian No date: CHF (congestive heart failure) ([facility] ([facility]) No date: CKD (chronic kidney disease) No date: COPD (chronic obstructive pulmonary disease) ([facility]) No date: Depression No date: GERD (gastroesophageal reflux disease) No date: Heart valve disease No date: Hyperlipidemia No date: Hypertension No date: Irritable bowel syndrome No date: Joint pain No date: Myocardial infarction ([facility] ([facility]) No date: Pacemaker No date: PAD (peripheral artery disease) ([facility]) No date: Sleep apnea Comment: uses CPAP Past Surgical History: Past Surgical History: No date: BREAST BIOPSY; Bilateral Comment: neg No date: CORONARY STENT PLACEMENT Comment: X10 per pt. No date: HYSTERECTOMY Comment: with BSO for CA No date: INSERT / REPLACE / REMOVE PACEMAKER 2019: PACEMAKER (HISTORICAL) No date: STENT INSERTION (HISTORICAL) Comment: No date: TONSILLECTOMY Medications Prior to Admission: Current Outpatient Medications on File Prior to Visit Medication Sig Dispense Refill acetaminophen (Tylenol) 500 MG tablet Take 500 mg by mouth every 6 hours as needed. albuterol 108 (90 Base) MCG/ACT inhaler Inhale 1 - 2 puffs by mouth every 4 hours as needed for Dyspnea, wheezing amiodarone (Pacerone) 200 MG tablet Take 200 mg by mouth daily. amLODIPine (Norvasc) 2.5 MG tablet Take 2.5 mg by mouth in the morning. ascorbic acid (Vitamin C) 500 MG tablet Take 500 mg by mouth in the morning. atorvastatin (Lipitor) 40 MG tablet Take 40 mg by mouth daily. for cholesterol busPIRone (Buspar) 10 MG tablet Take 10 mg by mouth in the morning and 10 mg at noon and 10 mg in the evening. cholecalciferol (Vitamin D-3) 25 MCG (1000 UT) capsule Take 1,000 Units by mouth in the morning. clopidogrel (Plavix) 75 MG tablet Take 75 mg by mouth Nightly. dicyclomine (Bentyl) 10 MG capsule TAKE 1 CAPSULE BY MOUTH FOUR TIMES DAILY for ibs Eliquis 5 MG tablet TAKE 1 TABLET BY MOUTH TWICE DAILY (blood thinner) ferrous sulfate 325 (65 Fe) MG tablet Take 325 mg by mouth. Fluticasone-Salmeterol 500-50 MCG/ACT aerosol powder Inhale 1 puff in the morning and 1 puff in the evening. furosemide (Lasix) 40 MG tablet Take 40 mg by mouth 2 times daily. gabapentin (Neurontin) 300 MG capsule TAKE 1 CAPSULE BY MOUTH IN THE MORNING AND TAKE 2 CAPSULES BY MOUTH AT BEDTIME isosorbide mononitrate ER (Imdur) 60 MG 24 hr tablet TAKE 1 TABLET BY MOUTH DAILY FOR HEART lidocaine (Lidoderm) 5 % patch Place 1 patch on the skin in the morning and 1 patch in the evening. metoprolol tartrate (Lopressor) 100 MG tablet Take 100 mg by mouth 2 times daily. Multiple Vitamin (MULTIVITAMIN ADULT PO) Take 1 (more content not included)... [facility] 06-26-2022 Note Comprehensive PreSur gical History and Physical Name: Kathy Puri : 1950 (Age-72 y.o.) Date of Service: Pt seen/examined on 06/26/2022 Procedure Information Date/Time: 07/05/22 2858 Procedures: ENDOVASCULAR REPAIR OF ABDOMINAL AORTIC ANEURYSM OPEN FEMORAL ARTERY EXPOSURE FOR DELIVERY OF ENDOVASCULAR PROSTHESIS (Bilateral) Location: [facility] OR [facility] Operating Room Surgeons: Lana Parker MD Chief Complaint: Infrarenal abdominal aortic aneurysm, without rupture (HCC) [I71.43] History Of Present Illness: 72 y.o. female who we are asked to see/evaluate by Dr. Parker for pre-operative evaluation prior to the above procedure. OV with Dr. Parker on 05/27/22 The patient is a 72 y.o. female who presents to the clinic today for discussion of AAA. She was seen by one of my previous partners for AAA with plans for endovascular repair however given her significant medical comorbidities, she was felt to need a higher level perioperative care. These include CAD s/p PCI, CHF with reduced EF (11/2021 of 15-20%), Pacemaker for tachy-erica syndrome, atrial fibrillation on Eliquis, COPD, and emphysema. She also has a history of bilateral SFA stenting. The patient reports leg pain that is present at rest and with ambulation. She also reports a history of lower back pain after a fall she sustained some months ago. When asked what she knew about her aneurysm, she responds I don't know anything but I want to know everything . She is on Eliquis (Per OSH notes) and plavix. She is on statin. She is a former smoker. ? Patient denies exertional chest pain/shortness of breath. Denies dizziness, syncope, lightheadedness. Denies fever, chills, weakness or fatigue. Patient denies hx of TIA/CVA, diabetes, asthma, DVT/PE. Patient had chest pain 1 week ago, she has a hx of intermittent chest pain, no other associated symptoms at that time, did not use her nitroglycerin, lasted less than 10 minutes and resolved without intervention, patient was doing laundry at that time, no episodes of chest pain since that time. Past Medical History: Past Medical History: No date: Anemia No date: Anxiety No date: Arrhythmia Comment: afib No date: Arthritis No date: Cancer ([facility] ([facility]) Comment: ovarian No date: CHF (congestive heart failure) ([facility]) No date: CKD (chronic kidney disease) No date: COPD (chronic obstructive pulmonary disease) ([facility]) No date: Depression No date: GERD (gastroesophageal reflux disease) No date: Heart valve disease No date: Hyperlipidemia No date: Hypertension No date: Irritable bowel syndrome No date: Joint pain No date: Myocardial infarction ([facility] ([facility]) No date: Pacemaker No date: PAD (peripheral artery disease) ([facility]) No date: Sleep apnea Comment: uses CPAP Past Surgical History: Past Surgical History: No date: BREAST BIOPSY; Bilateral Comment: neg No date: CORONARY STENT PLACEMENT Comment: X10 per pt. No date: HYSTERECTOMY Comment: with BSO for CA No date: INSERT / REPLACE / REMOVE PACEMAKER 2019: PACEMAKER (HISTORICAL) No date: STENT INSERTION (HISTORICAL) Comment: No date: TONSILLECTOMY Medications Prior to Admission: Current Outpatient Medications on File Prior to Visit Medication Sig Dispense Refill acetaminophen (Tylenol) 500 MG tablet Take 500 mg by mouth every 6 hours as needed. albuterol 108 (90 Base) MCG/ACT inhaler Inhale 1 - 2 puffs by mouth every 4 hours as needed for Dyspnea, wheezing amiodarone (Pacerone) 200 MG tablet Take 200 mg by mouth daily. amLODIPine (Norvasc) 2.5 MG tablet Take 2.5 mg by mouth in the morning. ascorbic acid (Vitamin C) 500 MG tablet Take 500 mg by mouth in the morning. atorvastatin (Lipitor) 40 MG tablet Take 40 mg by mouth daily. for cholesterol busPIRone (Buspar) 10 MG tablet Take 10 mg by mouth in the morning and 10 mg at noon and 10 mg in the evening. cholecalciferol (Vitamin D-3) 25 MCG (1000 UT) capsule Take 1,000 Units by mouth in the morning. clopidogrel (Plavix) 75 MG tablet Take 75 mg by mouth Nightly. dicyclomine (Bentyl) 10 MG capsule TAKE 1 CAPSULE BY MOUTH FOUR TIMES DAILY for ibs Eliquis 5 MG tablet TAKE 1 TABLET BY MOUTH TWICE DAILY (blood thinner) ferrous sulfate 325 (65 Fe) MG tablet Take 325 mg by mouth. Fluticasone-Salmeterol 500-50 MCG/ACT aerosol powder Inhale 1 puff in the morning and 1 puff in the evening. furosemide (Lasix) 40 MG tablet Take 40 mg by mouth 2 times daily. gabapentin (Neurontin) 300 MG capsule TAKE 1 CAPSULE BY MOUTH IN THE MORNING AND TAKE 2 CAPSULES BY MOUTH AT BEDTIME isosorbide mononitrate ER (Imdur) 60 MG 24 hr tablet TAKE 1 TABLET BY MOUTH DAILY FOR HEART lidocaine (Lidoderm) 5 % patch Place 1 patch on the skin in the morning and 1 patch in the evening. metoprolol tartrate (Lopressor) 100 MG tablet Take 100 mg by mouth 2 times daily. Multiple Vitamin (MULTIVITAMIN ADULT PO) Take 1 (more content not included)... [facility] 06-14-2022 Telephone encounter Note SURGERY: ENDOVASCULAR REPAIR OF AAA DATE OF SURGERY: 07/05/2022 7:30 AM PRE TESTIN06/26/2022 12:00 AUTH #: [id number] CARDIAC CLEARANCE YES CARDIAC DR TREVIÑO , PULMONARY DR MARX 05/28/2022 POST OP OR OV: 07/17/2022 10:15 MEDS TO HOLD: ELIQUIS HOLD 48 HOURS PRIOR, THE MORNING OF SURGERY HOLD FUROSEMIDE MEDS TO CONTINUE: PLAVIX, OTHERS [facility] 06-13-2022 Telephone encounter Note Received final cardiac clearance and copy of Echo done 06/11/22. Dr. TreviñoIarbu-Hcqumtimwjkz-hobeaim patient on 06/12/22 Dr. Zack MarxLcrced-Bzqoptnpj-Pumcmsy patient on 05/28/22. Dr. Parker reviewed the clearances and signed off on them. I will reach out to patient to schedule the surgery. [facility] 06-13-2022 Miscellaneous Notes Received final cardiac clearance and copy of Echo done 06/11/22. Dr. TreviñoVwmtw-Vsgztragndfz-cwjfzlg patient on 06/12/22 Dr. Zack MarxMyiecz-Hmisipnji-Wgxdhfo patient on 05/28/22. Dr. Parker reviewed the clearances and signed off on them. I will reach out to patient to schedule the surgery. Call placed to Dr. Treviño's office and spoke with Adeline to make sure patient had the Echo done on 06/11/22. Patient did complete the Echo per Adeline and our form for Cardiac Clearance/Optimization was re-faxed for confirmation after new Echo complete. Pending final outcome. Noted will await Echocardiogram results. I called the patient back and answered her questions regarding surgery. She asked if there was an option where she does not have surgery. I explained to her that there is always the option of not proceeding with surgical intervention. I explained that the risks of not having surgery is approximately 1-11% per year risk of rupture of the aneurysm. We discussed that should the aneurysm rupture, many people do not make it to the hospital in time to consider repair and should that occur, there is a high risk of some complication occurring whether that be kidney damage, cardiac event, or need for prolonged intubation and hospital stay. We also discussed the importance that she goes to her ECHO appointment as this is needed to determine her risk of surgery (last ECHO showed EF of 15-20% in November 2021). She expressed understanding and states that she will be at her appointment as scheduled. All questions were answered to the patient's satisfaction. Patient is going to be scheduled for: Endovascular Repair Of Abdominal Aortic Aneurysm, pending out come of Echocardiogram on 06/11/[address] Treviño. Patient is asking if she really has to have this surgery? She would like to speak with Dr. Parker again. Patient# [phone] Clearance has been received from Dr. Treviño's office. Call placed to Dr. Treviño's office to confirm that they are going to rescheduled the Echocardiogram that patient no showed to on 05/23/22. The office told me that since patient no showed the scheduling department will not allow them to reschedule it. I was told that it is the patient's responsibility to reschedule the test. With even knowing that this is needed before surgery they refused. I asked for their scheduling line number so I could help the patient. . I called the patient and explained that the echocardiogram is needed before we can schedule her surgery. She agreed to have it done so I dialed the number and got Blank on the line and transferred the patient directly for rescheduling. Echocardiogram is now on 06/11/22 at 2:00 pm at [facility]. documented in this encounter [facility] 06-12-2022 Telephone encounter Note Call placed to Dr. Treviño's office and spoke with Adeline to make sure patient had the Echo done on 06/11/22. Patient did complete the Echo per Adeline and our form for Cardiac Clearance/Optimization was re-faxed for confirmation after new Echo complete. Pending final outcome. [facility] 05-31-2022 Telephone encounter Note Noted will await Echocardiogram results. T [facility] 05-30-2022 Telephone encounter Note I called the patient back and answered her questions regarding surgery. She asked if there was an option where she does not have surgery. I explained to her that there is always the option of not proceeding with surgical intervention. I explained that the risks of not having surgery is approximately 1-11% per year risk of rupture of the aneurysm. We discussed that should the aneurysm rupture, many people do not make it to the hospital in time to consider repair and should that occur, there is a high risk of some complication occurring whether that be kidney damage, cardiac event, or need for prolonged intubation and hospital stay. We also discussed the importance that she goes to her ECHO appointment as this is needed to determine her risk of surgery (last ECHO showed EF of 15-20% in November 2021). She expressed understanding and states that she will be at her appointment as scheduled. All questions were answered to the patient's satisfaction. [facility] Work Phone: 05-30-2022 Telephone encounter Note Patient is going to be scheduled for: Endovascular Repair Of Abdominal Aortic Aneurysm, pending out come of Echocardiogram on 06/11/[address] Treviño. Patient is asking if she really has to have this surgery? She would like to speak with Dr. Parker again. Patient# [phone] [facility] 05-30-2022 Telephone encounter Note Clearance has been received from Dr. Treviño's office. Call placed to Dr. Treviño's office to confirm that they are going to rescheduled the Echocardiogram that patient no showed to on 05/23/22. The office told me that since patient no showed the scheduling department will not allow them to reschedule it. I was told that it is the patient's responsibility to reschedule the test. With even knowing that this is needed before surgery they refused. I asked for their scheduling line number so I could help the patient. . I called the patient and explained that the echocardiogram is needed before we can schedule her surgery. She agreed to have it done so I dialed the number and got Blank on the line and transferred the patient directly for rescheduling. Echocardiogram is now on 06/11/22 at 2:00 pm at [facility]. [facility] 05-27-2022 Note Vascular Surgery Out patient Consultation Chief Complaint Patient presents with New Patient (Dr Marroquin) Eval AAA; CTA 02/26/22 (in Pacs-measured by [employer] rep) Reason for Consult: Abdominal aortic aneurysm Requesting Physician: Dr. Marroquin HISTORY OF PRESENTILLNESS: The patient is a 72 y.o. female who presents to the clinic today for discussion of AAA. She was seen by one of my previous partners for AAA with plans for endovascular repair however given her significant medical comorbidities, she was felt to need a higher level perioperative care. These include CAD s/p PCI, CHF with reduced EF (11/2021 of 15-20%), Pacemaker for tachy-eriac syndrome, atrial fibrillation on Eliquis, COPD, and emphysema. She also has a history of bilateral SFA stenting. The patient reports leg pain that is present at rest and with ambulation. She also reports a history of lower back pain after a fall she sustained some months ago. When asked what she knew about her aneurysm, she responds I don't know anything but I want to know everything . She is on Eliquis (Per OSH notes) and plavix. She is on statin. She is a former smoker. Past Medical History: Past Medical History: Diagnosis Date CKD (chronic kidney disease) Hyperlipidemia Hypertension PAD (peripheral artery disease) (HCC) Past SurgicalHistory: Past Surgical History: Procedure Laterality Date STENT INSERTION (HISTORICAL) Current Medications: Prior to Admission medications Medication Sig Start Date End Date Taking? Authorizing Provider acetaminophen (Tylenol) 500 MG tablet Take 500 mg by mouth every 6 hours as needed. Yes Historical Provider, albuterol 108 (90 Base) MCG/ACT inhaler Inhale 1 - 2 puffs by mouth every 4 hours as needed for Dyspnea, wheezing 04/04/22 Yes Historical Provider, amiodarone (Pacerone) 200 MG tablet Take 200 mg by mouth daily. 02/19/22 Yes Historical Provider, amLODIPine (Norvasc) 2.5 MG tablet Take 2.5 mg by mouth in the morning. 12/01/20 Yes Historical Provider, ascorbic acid (Vitamin C) 500 MG tablet Take 500 mg by mouth in the morning. Yes Historical Provider, atorvastatin (Lipitor) 40 MG tablet Take 40 mg by mouth daily. for cholesterol 03/13/22 Yes Historical Provider, busPIRone (Buspar) 10 MG tablet Take 10 mg by mouth in the morning and 10 mg at noon and 10 mg in the evening. 12/07/20 Yes Historical Provider, cholecalciferol (Vitamin D-3) 25 MCG (1000 UT) capsule Take 1,000 Units by mouth in the morning. Yes Historical Provider, clopidogrel (Plavix) 75 MG tablet Take 75 mg by mouth Nightly. 04/09/22 Yes Historical Provider, dicyclomine (Bentyl) 10 MG capsule TAKE 1 CAPSULE BY MOUTH FOUR TIMES DAILY for ibs 05/07/22 Yes Historical Provider, ferrous sulfate 325 (65 Fe) MG tablet Take 325 mg by mouth. Yes Historical Provider, Fluticasone-Salmeterol 500-50 MCG/ACT aerosol powder Inhale 1 puff in the morning and 1 puff in the evening. Yes Historical Provider, furosemide (Lasix) 40 MG tablet Take 40 mg by mouth 2 times daily. 05/07/22 Yes Historical Provider, isosorbide mononitrate ER (Imdur) 60 MG 24 hr tablet TAKE 1 TABLET BY MOUTH DAILY FOR HEART 04/17/22 Yes Historical Provider, lidocaine (Lidoderm) 5 % patch Place 1 patch on the skin in the morning and 1 patch in the evening. Yes Historical Provider, metoprolol tartrate (Lopressor) 100 MG tablet Take 100 mg by mouth 2 times daily. 04/23/22 Yes Historical Provider, Multiple Vitamin (MULTIVITAMIN ADULT PO) Take 1 capsule by mouth in the morning. Yes Historical Provider, nitroglycerin (Nitrostat) 0.4 MG SL tablet 0.4 mg sublingually every 5 minutes As Needed for Chest Pain 02/19/22 Yes Historical Provider, pantoprazole (ProtoNix) 40 MG EC tablet Take 40 mg by mouth daily. 03/13/22 Yes Historical Provider, potassium chloride CR (K-Tab) 20 MEQ ER tablet Take 20 mEq by mouth 2 times daily. 04/17/22 Yes Historical Provider, traZODone (Desyrel) 150 MG tablet Take 150 mg by mouth Nightly. 04/14/22 Yes Historical Provider, Vitamin E 100 units tablet by Other route. Yes Historical Provider, gabapentin (Neurontin) 300 MG capsule TAKE 1 CAPSULE BY MOUTH IN THE MORNING AND TAKE 2 CAPSULES BY MOUTH AT BEDTIME 03/19/22 Historical Provider, Allergies: Lisinopril Social History Socioeconomic History Marital status: Spouse name: Not on file Number of children: Not on file Years of education: Not on file Highest education level: Not on file Occupational History Not on file Tobacco Use Smoking status: Former Types: Cigarettes Quit date: 2020 Years since quittin.1 Smokeless tobacco: Never Substance and Sexual Activity Alcohol use: Never Drug use: Never Sexual activity: Not on file Other Topics Concern Not on file Social History Narrative Not on file Social Determinants of Health Financial Resource Strain: Not on file Food Insecurity: (more content not included)... [facility] 05-27-2022 History of Present illness Narrative Vascular Surgery Outpatient Consultation Chief Complaint Patient presents with New Patient (Dr Marroquin) Eval AAA; CTA 02/26/22 (in Pacs-measured by [employer] rep) Reason for Consult: Abdominal aortic aneurysm Requesting Physician: Dr. Marroquin HISTORY OF PRESENTILLNESS: The patient is a 72 y.o. female who presents to the clinic today for discussion of AAA. She was seen by one of my previous partners for AAA with plans for endovascular repair however given her significant medical comorbidities, she was felt to need a higher level perioperative care. These include CAD s/p PCI, CHF with reduced EF (11/2021 of 15-20%), Pacemaker for tachy-erica syndrome, atrial fibrillation on Eliquis, COPD, and emphysema. She also has a history of bilateral SFA stenting. The patient reports leg pain that is present at rest and with ambulation. She also reports a history of lower back pain after a fall she sustained some months ago. When asked what she knew about her aneurysm, she responds I don't know anything but I want to know everything . She is on Eliquis (Per OSH notes) and plavix. She is on statin. She is a former smoker. Past Medical History: Past Medical History: Diagnosis Date CKD (chronic kidney disease) Hyperlipidemia Hypertension PAD (peripheral artery disease) ([facility]) Past SurgicalHistory: Past Surgical History: Procedure Laterality Date STENT INSERTION (HISTORICAL) Current Medications: Prior to Admission medications Medication Sig Start Date End Date Taking? Authorizing Provider acetaminophen (Tylenol) 500 MG tablet Take 500 mg by mouth every 6 hours as needed. Yes Historical Provider, albuterol 108 (90 Base) MCG/ACT inhaler Inhale 1 - 2 puffs by mouth every 4 hours as needed for Dyspnea, wheezing 04/04/22 Yes Historical Provider, amiodarone (Pacerone) 200 MG tablet Take 200 mg by mouth daily. 02/19/22 Yes Historical Provider, amLODIPine (Norvasc) 2.5 MG tablet Take 2.5 mg by mouth in the morning. 12/01/20 Yes Historical Provider, ascorbic acid (Vitamin C) 500 MG tablet Take 500 mg by mouth in the morning. Yes Historical Provider, atorvastatin (Lipitor) 40 MG tablet Take 40 mg by mouth daily. for cholesterol 03/13/22 Yes Historical Provider, busPIRone (Buspar) 10 MG tablet Take 10 mg by mouth in the morning and 10 mg at noon and 10 mg in the evening. 12/07/20 Yes Historical Provider, cholecalciferol (Vitamin D-3) 25 MCG (1000 UT) capsule Take 1,000 Units by mouth in the morning. Yes Historical Provider, clopidogrel (Plavix) 75 MG tablet Take 75 mg by mouth Nightly. 04/09/22 Yes Historical Provider, dicyclomine (Bentyl) 10 MG capsule TAKE 1 CAPSULE BY MOUTH FOUR TIMES DAILY for ibs 05/07/22 Yes Historical Provider, ferrous sulfate 325 (65 Fe) MG tablet Take 325 mg by mouth. Yes Historical Provider, Fluticasone-Salmeterol 500-50 MCG/ACT aerosol powder Inhale 1 puff in the morning and 1 puff in the evening. Yes Historical Provider, furosemide (Lasix) 40 MG tablet Take 40 mg by mouth 2 times daily. 05/07/22 Yes Historical Provider, isosorbide mononitrate ER (Imdur) 60 MG 24 hr tablet TAKE 1 TABLET BY MOUTH DAILY FOR HEART 04/17/22 Yes Historical Provider, lidocaine (Lidoderm) 5 % patch Place 1 patch on the skin in the morning and 1 patch in the evening. Yes Historical Provider, metoprolol tartrate (Lopressor) 100 MG tablet Take 100 mg by mouth 2 times daily. 04/23/22 Yes Historical Provider, Multiple Vitamin (MULTIVITAMIN ADULT PO) Take 1 capsule by mouth in the morning. Yes Historical Provider, nitroglycerin (Nitrostat) 0.4 MG SL tablet 0.4 mg sublingually every 5 minutes As Needed for Chest Pain 02/19/22 Yes Historical Provider, pantoprazole (ProtoNix) 40 MG EC tablet Take 40 mg by mouth daily. 03/13/22 Yes Historical Provider, potassium chloride CR (K-Tab) 20 MEQ ER tablet Take 20 mEq by mouth 2 times daily. 04/17/22 Yes Historical Provider, traZODone (Desyrel) 150 MG tablet Take 150 mg by mouth Nightly. 04/14/22 Yes Historical Provider, Vitamin E 100 units tablet by Other route. Yes Historical Provider, gabapentin (Neurontin) 300 MG capsule TAKE 1 CAPSULE BY MOUTH IN THE MORNING AND TAKE 2 CAPSULES BY MOUTH AT BEDTIME 03/19/22 Historical Provider, Allergies: Lisinopril Social History Socioeconomic History Marital status: Spouse name: Not on file Number of children: Not on file Years of education: Not on file Highest education level: Not on file Occupational History Not on file Tobacco Use Smoking status: Former Types: Cigarettes Quit date: 2020 Years since quittin.1 Smokeless tobacco: Never Substance and Sexual Activity Alcohol use: Never Drug use: Never Sexual activity: Not on file Other Topics Concern Not on file Social History Narrative Not on file Social Determinants of Health Financial Resource Strain: Not on file Food Insecurity: Not on file Transportation Needs: Not on file Physical Activity: Not on file Stress: Not on file Social Connections: Not on file Intimate Partner Violence: Not on file Housing Stability: Not on file Family History Problem Relation Name Age of Onset Hypertension Sister Hyperlipidemia Sister Review of Systems HENT: Negative. Negative for hearing loss, trouble swallowing and voice change. Eyes: Negative. Negative for pain, redness and visual disturbance. Respiratory: Positive for apnea (does not wear CPAP) and shortness of breath. Negative for chest tightness and wheezing. Cardiovascular: Positive for chest pain (PACEMAKER). Negative for palpitations and leg swelling. Gastrointestinal: Negative. Negative for anal bleeding and blood in stool. Genitourinary: Negative. Negative for difficulty urinating and hematuria. Musculoskeletal: Negative. Negative for gait problem, neck pain and neck stiffness. Neurological: Positive for light-headedness and numbness (bilat hands). Negative for dizziness and syncope. LABS: No results found for: CREATININE No results found for: WBC, HGB, HCT, MCV, PLT No results found for: INR, PROTIME No results found for: VLDL PHYSICAL EXAM: CONSTITUTIONAL: awake, alert, cooperative, no apparent distress, and appears stated age EYES: Perrla, Eomi ENT: normocepalic, without obvious abnormality, atraumatic NECK: supple, symmetrical, trachea midline, no jugular venous distension, no masses LUNGS: no increased work of breathing, good air exchange and clear to auscultation CARDIOVASCULAR: regular rate and rhythm and no murmur noted ABDOMEN: soft, non-distended, non-tender, expansile mass present in mid abdomen SKIN: no lesions EXTREMITIES: Left PT pulse is palpable. Left DP and right DP/PT doppler signals present. There are no wounds or discoloration. IMAGING STUDIES: CTA abdomen and pelvis available in PACS system was reviewed. This shows a 5.3 cm infrarenal AAA. Left common iliac artery stenosis. IMPRESSION/RECOMMENDATIONS: Problem List Items Addressed This Visit Circulatory Abdominal aortic aneurysm (AAA) without rupture - Primary The patient appears to be an endovascular AAA repair candidate from an anatomy standpoint. She has had no recent cardiac imaging and her last ECHO showed an EF of 15-20%. A new ECHO had been ordered by her emr specialist in [place] however she did not show for the appointment. This will need to be completed prior to consideration of intervention. We will also reach out to her mobile crane operator in [place] as she has had a recent evaluation however these records are unavailable. Should she be a suitable candidate from a cardiac and pulmonary standpoint, we will plan to proceed with EVAR. All questions were answered. Lana Parker MD Vascular Surgery documented in this encounter [facility] 05-16-2022 Note Received referral fr Dr Marroquin for Eval AAA. CTA 02/26/22 images in Pacs Measured by [employer]. Have tried to reach patient several times: 05/07/22; 05/10/22; 05/16/22 Voice Mailbox is full. To be scheduled with Dr Parker or Dr Angel. Scanned into [employer] [facility] [employer] [facility] 10-10-2021 Note Patient Outreach (IN [facility]) KATHY PURI ([id number]) 1950 F Date Time Provider Department 10/10/21 CATHI HAYES During your visit today, we recorded the following information about you: Allergies As of Date: 10/10/2021 Noted Allergy Reaction LISINOPRIL 05/31/2019 14 - Other: See Comments Comments: Numbness to tongue Date Reviewed: 12/27/2020 Reviewed by: Yuly Galloway, CT - Fully Assessed Visit Diagnosis:Encounter for screening mammogram for breast cancer [Z12.31] Order(s):[facility] SCREENING [[id number]] Order #: [id number] FUTURE Prescriptions as of 10/15/2021 - clopidogrel (PLAVIX) 75 mg tablet Take 1 tablet by mouth once daily. - amLODIPine (NORVASC) 2.5 mg tablet Take 2.5 mg by mouth once daily. - pantoprazole (PROTONIX) 40 mg grps - traZODone (DESYREL) 100 mg tablet Take 150 mg by mouth daily at bedtime. - albuterol HFA (PROVENTIL HFA, VENTOLIN HFA) 90 mcg/actuation inhaler INHALE 1-2 PUFFS EVERY FOUR HOURS NEEDED FOR DYSPNEA/WHEEZING - amiodarone (PACERONE) 200 mg tablet TAKE 1 TABLET BY MOUTH TWICE DAILY for 2 (TWO) weeks, then TAKE 1 TABLET EVERY DAY thereafter. - potassium chloride 20 mEq TbER Take 1 tablet by mouth twice daily. - ferrous sulfate 325 mg (65 mg iron) tablet Take 325 mg by mouth twice daily with meals. - gabapentin (NEURONTIN) 300 mg capsule Take 1 cap at lunch, 1 cap at dinner and 1-2 caps at bedtime. - busPIRone (BUSPAR) 10 mg tablet Take 1 tablet by mouth three times daily. - dicyclomine (BENTYL) 10 mg capsule Take 1 capsule by mouth before meals and at bedtime. - fluticasone-salmeterol (WIXELA INHUB) 500-50 mcg/dose dsdv Inhale 1 Puff as instructed twice daily. - furosemide (LASIX) 40 mg tablet Take 0.5 tablets by mouth twice daily. Added at recent hospital stay [facility]. - BIPAP Initiate BiPAP @ 9/5 cm of water with humidification. Mask (per patient preference) optional chin strap (if indicated) , filters, tubing, humidifier and lifetime supplies. - metoprolol tartrate, short acting, (LOPRESSOR) 100 mg tablet Take 100 mg by mouth twice daily. - atorvastatin (LIPITOR) 40 mg tablet Take 1 tablet by mouth once daily. - nitroglycerin sublingual (NITROSTAT) 0.4 mg SL tablet Dissolve 1 tablet under the tongue as needed. FOR CHEST PAIN. IF NO RELIEF CALL 911 - isosorbide mononitrate ER (IMDUR) 60 mg 24 hr tablet Take 1 tablet by mouth once daily. - ADVAIR DISKUS 500-50 mcg/dose dsdv Inhale 1 Puff as instructed once daily. - Cholecalciferol, Vitamin D3, (VITAMIN D) 1,000 unit cap Take 1,000 Units by mouth once daily. - ascorbic acid, vitamin C, (VITAMIN C) 500 mg tablet Take 500 mg by mouth once daily. - ALBUTEROL SULFATE (VENTOLIN HFA INHALATION) Inhale 1 Puff as instructed as needed. - Multivitamin capsule Take 1 capsule by mouth once daily. - VITAMIN E, BULK, MISC - acetaminophen (TYLENOL EXTRA STRENGTH) 500 mg tablet Take 500 mg by mouth every 6 hours as needed. - lidocaine (LIDODERM) 5 %(700 mg/patch) Apply 1 Patch as directed every 12 hours. Problem List As Of Date 10/10/2021 Noted Resolved Vulvovaginitis [N76.0] 07/16/2011 01/13/2014 Atrial fibrillation [I48.91] 07/16/2011 Restless leg syndrome [G25.81] 07/16/2011 Hypertension [I10] Heart disease [I51.9] 01/29/2017 Pelvic mass in female [R19.00] 07/23/2011 05/07/2013 PAD (peripheral artery disease) [I73.9] 08/13/2011 History of myocardial infarction [I25.2] 08/15/2011 Ovarian cancer [C56.9] 09/13/2011 05/07/2013 Cellulitis, abdominal wall [L03.311] 09/20/2011 01/29/2017 Personal history of malignant neoplasm of ovary*05/08/2012 Chronic pain [G89.29] 01/15/2013 Lumbar radiculopathy [M54.16] 01/15/2013 DDD (degenerative disc disease), lumbar [M51.36]01/15/2013 Myofascial pain [M79.18] 01/15/2013 03/15/2019 Pelvic pain 05/07/2013 01/02/2016 Urinary frequency [R35.0] 05/07/2013 03/15/2019 Hematuria, microscopic [R31.29] 05/07/2013 03/15/2019 Nocturia [R35.1] 05/07/2013 03/15/2019 S/P coronary artery stent placement [Z95.5] 08/31/2014 Tobacco abuse [Z72.0] 08/31/2014 Family history of ischemic heart disease [Z82.4*08/31/2014 03/15/2019 Dyslipidemia [E78.5] 08/31/2014 Shortness of breath [R06.02] 11/04/2014 03/15/2019 Pain of left lower extremity [M79.605] 12/06/2015 03/15/2019 CAD (coronary artery disease) [I25.10] GERD (gastroesophageal reflux disease) [K21.9] Multiple falls [R29.6] 12/31/2017 Sleep apnea [G47.30] Abdominal aortic aneurysm (AAA) without rupture*09/14/2019 Abnormality of gait [R26.9] 05/16/2020 Neck pain [M54.2] 10/02/2020 Encounter Status:Closed by SURY RANDHAWA on 10/15/21 [facility] 06-23-2021 Miscellaneous Notes All scheduled in June Please call patient to schedule US ABB prior to appt 06/26/21 Please change her to an established patient she has seen a previous vascular provider in our office Thank you documented in this encounter [facility] 05-16-2021 Miscellaneous Notes Left message to call office. 05/16/2021 2:03 PM. Virgen Britton LPN Patient is due for follow-up. Please assist in scheduling. Aminata Barrera APRN.KARLA DAMARI 10/16/20 NOV not scheduled at this time Mona Vaughn Ma Patient has been identified by name and date of : Yes Pending Prescriptions Disp Refills CLOPIDOGREL 75 MG TABLET 90 tablet 1 Sig: Take 1 tablet by mouth once daily. MOUNA: No RX INSTRUCTIONS: Patient aware RX will be sent to pharmacy. No need to notify patient. Yoanna Morris Pss documented in this encounter [facility] 11-22-2020 Miscellaneous Notes On the way. Dianne Mccullough LPN Please pull ER visit from yesterday. Thanks, Aminata Barrera APRN.KARLA documented in this encounter [facility] 09-19-2020 Miscellaneous Notes Second call placed to discuss medication. No answer and brief voicemail left. Called patient to discuss medication. No response. Voicemail left with brief note. Will attempt to call again later in evening. Phone call placed, additional information gathered in regards to sleep schedule. Patient reported Gabapentin 600 mg PM, 1/2 glass carbonated water, sets up BiPap machine unable to fall asleep, reported reading books, watching TV to pass the time typically falls asleep approximately two hours before it is time to get up for the day. Restless leg syndrome is well controlled not causing sleep issues per patient, previously taken 9 mg Melatonin (no current use) to help fall asleep, reported it's no longer effective. Patient declined to take naps during the day, requested additional suggestions to help with sleep. Florencia Hwang LPN documented in this encounter [facility] 08-22-2020 Miscellaneous Notes Thanks. Hospital notes collected and placed in you inbox on desk. Will see when gets released and schedule office visit. Reviewed. Please pull ER report tomorrow and will schedule OV once released from hospital. Daughter and EDILMA Argelia, want's pcp to know, first of all, patient just left via squad to [facility] ER, for c/o CP. Depending on how that goes, Argelia anticipates patient will f/u with pcp. Wanted pcp to know, patient is having terrible anxiety: unable to sleep, and it is getting the best of her. States something needs to be done. Patient saw product planner yesterday, who advised daughter, patient needs to contact pcp to treat her anxiety. Daughter states she does not want the treatment to be ativan or xanax. Wanted to give pcp a heads up that this is something that needs to be addressed in the near future. documented in this encounter [facility] documented as of this encounter (statuses as of 05/16/2021) [facility] History of Past illness Narrative* Problem Noted Date Resolved Date Pain of left lower extremity 12/06/2015 Shortness of breath 11/04/2014 03/15/2019 Family history of ischemic heart disease 015 03/15/2019 Pelvic pain 05/07/2013 01/02/2016 Urinary frequency 05/07/2013 03/15/2019 Hematuria, microscopic 05/07/2013 9 Nocturia 05/07/2013 03/15/2019 Myofascial pain 01/15/2013 03/15/2019 Cellulitis, abdominal wall 09/20/201101/29 Ovarian cancer 09/13/2011 05/07/2013 Pelvic mass in female 07/23/2011 05/07/2013 Vulvovaginitis 07/16/2011 01/13/2014 Heart disease 01/29/2017 Overview: Heart Attack (2) documented as of this encounter (statuses as of 06/26/2021) [facility] History of Past illness Narrative* Problem Noted Date Resolved Date Pain of left lower extremity 12/06/2015 Shortness of breath 11/04/2014 03/15/2019 Family history of ischemic heart disease 015 03/15/2019 Pelvic pain 05/07/2013 01/02/2016 Urinary frequency 05/07/2013 03/15/2019 Hematuria, microscopic 05/07/2013 9 Nocturia 05/07/2013 03/15/2019 Myofascial pain 01/15/2013 03/15/2019 Cellulitis, abdominal wall 09/20/201101/29 Ovarian cancer 09/13/2011 05/07/2013 Pelvic mass in female 07/23/2011 05/07/2013 Vulvovaginitis 07/16/2011 01/13/2014 Heart disease 01/29/2017 Overview: Heart Attack (2) documented as of this encounter (statuses as of 08/15/2021) [facility] History of Past illness Narrative* Problem Noted Date Resolved Date Pain of left lower extremity 12/06/2015 Shortness of breath 11/04/2014 03/15/2019 Family history of ischemic heart disease 015 03/15/2019 Pelvic pain 05/07/2013 01/02/2016 Urinary frequency 05/07/2013 03/15/2019 Hematuria, microscopic 05/07/2013 9 Nocturia 05/07/2013 03/15/2019 Myofascial pain 01/15/2013 03/15/2019 Cellulitis, abdominal wall 09/20/201101/29 Ovarian cancer 09/13/2011 05/07/2013 Pelvic mass in female 07/23/2011 05/07/2013 Vulvovaginitis 07/16/2011 01/13/2014 Heart disease 01/29/2017 Overview: Heart Attack (2) documented as of this encounter (statuses as of 08/23/2021) [facility] of Past illness Narrative* Problem Noted Date Resolved Date Pain of left lower extremity 12/06/2015 Shortness of breath 11/04/2014 03/15/2019 Family history of ischemic heart disease 015 03/15/2019 Pelvic pain 05/07/2013 01/02/2016 Urinary frequency 05/07/2013 03/15/2019 Hematuria, microscopic 05/07/2013 9 Nocturia 05/07/2013 03/15/2019 Myofascial pain 01/15/2013 03/15/2019 Cellulitis, abdominal wall 09/20/201101/29 Ovarian cancer 09/13/2011 05/07/2013 Pelvic mass in female 07/23/2011 05/07/2013 Vulvovaginitis 07/16/2011 01/13/2014 Heart disease 01/29/2017 Overview: Heart Attack (2) documented as of this encounter (statuses as of 10/05/2021) [facility] of Past illness Narrative* Problem Noted Date Resolved Date Pain of left lower extremity 12/06/2015 Shortness of breath 11/04/2014 03/15/2019 Family history of ischemic heart disease 015 03/15/2019 Pelvic pain 05/07/2013 01/02/2016 Urinary frequency 05/07/2013 03/15/2019 Hematuria, microscopic 05/07/2013 9 Nocturia 05/07/2013 03/15/2019 Myofascial pain 01/15/2013 03/15/2019 Cellulitis, abdominal wall 09/20/201101/29 Ovarian cancer 09/13/2011 05/07/2013 Pelvic mass in female 07/23/2011 05/07/2013 Vulvovaginitis 07/16/2011 01/13/2014 Heart disease 01/29/2017 Overview: Heart Attack (2) documented as of this encounter (statuses as of 10/15/2021) [facility] Diagnosis Encounter for screening mammogram for breast cancer [facility] Diagnosis Infrarenal abdominal aortic aneurysm (AAA) without rupture- Primary documented in this encounter [facility] note* Diagnosis Infrarenal abdominal aortic aneurysm (AAA) without rupture (HCC)- Primary Infrarenal abdominal aortic aneurysm, without rupture (HCC) documented in this encounter [facility] note* Diagnosis Preop testing Unspecified pre-operative examination Infrarenal abdominal aortic aneurysm, without rupture (HCC) documented in this encounter [facility] note* Diagnosis Infrarenal abdominal aortic aneurysm (AAA) without rupture (HCC)- Primary Infrarenal abdominal aortic aneurysm (AAA) without rupture (HCC) documented in this encounter [facility] note* Diagnosis Infrarenal abdominal aortic aneurysm (AAA) without rupture (HCC)- Primary Status post endovascular aneurysm repair (EVAR) documented in this encounter [facility] note* Diagnosis Status post endovascular aneurysm repair (EVAR)- Primary Pre-procedure lab exam Pre-procedural laboratory examination documented in this encounter [facility] for referral (narrative)* Diagnostic Procedure Only (Routine) - Pending Review Specialty Diagnoses / Procedures Referred By Nadira don Referred To Contact [facility] Diagnoses Encounter for screening mammogram for breast cancer Procedures [facility] SCREENING SCREENING MAMMOGRAPHY BI 2-VIEW BREAST INC CAD Cathi Hayes MD [address] [place] [address] [facility] [address] [place] [id number] Referral ID Status Reason Start Date Expiration Date Visits Requested Visits Authorized [id number] Pending Review Auto-Generat ed Referral 10/10/2021 11/09/2022 1 1 [facility] Advance Directives No Advanced Directives Records FoundDocuments on File Type Date Recorded Patient Insurance Defense Paralegal Expl anation Advance Directive(s) 09/08/2012 10:30 AM Documents on File Type Date Recorded Patient Insurance Defense Paralegal Expl anation Advance Directive(s) 09/08/2012 10:30 AM Latest Code Status on File Code Status Date Activated Date Inactivated Comments Full Code 07/05/2022 2:16 PM 07/10/2022 4:06 PM Code Status History Code Status Date Activated Date Inactivated Comments Full Code 07/05/2022 6:13 AM 07/05/2022 2:16 PM Reason for Referral Specialty Diagnoses / Procedures Referred By Contac t Referred To Contact Radiology Diagnoses Infrarenal abdominal aortic aneurysm (AAA) without rupture (HCC) Status post endovascular aneurysm repair (EVAR) Procedures CTA abdomen pelvis angiogram w and/or wo IV contrast Lana Parker MD [address] [place] [id number] Referral ID Status Reason Start Date Expiration Date V isits Requested Visits Authorized [id number] Pending Review 07/24/2022 01/20/2023 1 1 Specialty Diagnoses / Procedures Referred By Contac t Referred To Contact Radiology Diagnoses Status post endovascular aneurysm repair (EVAR) Procedures CTA abdomen pelvis angiogram w and/or wo IV contrast Lana Parker MD [address] [place] [id number] Referral ID Status Reason Start Date Expiration Date V isits Requested Visits Authorized [id number] Pending Review 08/19/2022 02/15/2023 1 1 Summary Purpose Family History No Family History Records FoundNo Family History Records Found Additional Source Comments Source Comments (unrecognize d section and content) In the event this informatio n is protected by the Federal Confidentiality of Alcohol and Drug Abuse Patient Records regulations: The Federal rules restrict any use of the information to criminally investigate or prosecute any alcohol or drug abuse patient.[facility] the event this information is protected by the Federal Confidentiality of Alcohol and Drug Abuse Patient Records regulations: The Federal rules restrict any use of the information to criminally investigate or prosecute any alcohol or drug abuse patient.[facility] the event this information is protected by the Federal Confidentiality of Alcohol and Drug Abuse Patient Records regulations: The Federal rules restrict any use of the information to criminally investigate or prosecute any alcohol or drug abuse patient.[facility] the event this information is protected by the Federal Confidentiality of Alcohol and Drug Abuse Patient Records regulations: The Federal rules restrict any use of the information to criminally investigate or prosecute any alcohol or drug abuse patient.[facility] the event this information is protected by the Federal Confidentiality of Alcohol and Drug Abuse Patient Records regulations: The Federal rules restrict any use of the information to criminally investigate or prosecute any alcohol or drug abuse patient.[facility] the event this information is protected by the Federal Confidentiality of Alcohol and Drug Abuse Patient Records regulations: The Federal rules restrict any use of the information to criminally investigate or prosecute any alcohol or drug abuse patient.[facility] Reason for Visit (unrecogniz ed section and content) Reason Comments Appointment Reason Comments Anxiety Reason Comments Patient Question Gabapentin Reason Comments Request Outside Medical Records Reason Comments New Patient ( Cara) Eval AAA ; CTA 02/26/22 (in Pacs-measured by Ovation rep) Reason Onset Date Comments Advice Only 05/30/2022 Rescheduling of echocardiogram Surgery Scheduling 05/30/2022 Wants to spea k with doctor Cardiac Clearance 05/30/2022 RECEIVED PULMONARY CLEARANCE 05/30/2022 RECEIVED Reason Onset Date Comments Surgery Scheduling 06/14/2022 Specialty Diagnoses / Procedures Referred By Nadira t Referred To Contact Diagnoses Infrarenal abdominal aortic aneurysm, without rupture (HCC) Infrarenal abdominal aortic aneurysm, without rupture (HCC) [I71.43] Procedures AZ EVASC RPR DPLMNT [id number] NDGFT [place] OPN FEM ART EXPOS DLVR EVASC PROSTH UNI ENDOVASCULAR REPAIR OF ABDOMINAL AORTIC ANEURYSM OPEN FEMORAL ARTERY EXPOSURE FOR DELIVERY OF ENDOVASCULAR PROSTHESIS Lana Parker MD [address] [place] [address] [address] [place] [address] Referral ID Status Reason Start Date Expiration Date Visits Re quested Visits Authorized [id number] 1 1 Reason Comments Post-op 1st PO EVAR of AAA 0 07/05/2022 Reason Comments Post-op EVAR 07/05/2022 / Dis cuss CTA 08/08/2024 Care Teams (unrecognized sec tion and content) Braze Operator Relationship Specialty Start Date End Date Cathi Hayes MD [address] [place] [address] PCP - General Family Practice 05/16/21 Braze Operator Relationship Specialty Start Date End Date Cathi Hayes MD [address] [place] [address] PCP - General Family Practice 01/29/17 12/24/20 Cem Jewell(Historical)MD PCP - General Family Practice 12/25/20 Cathi Hayes MD [address] [facility] [place] [address] PCP - General Family Practice 05/16/21 Braze Operator Relationship Specialty Start Date End Date Cathi Hayes MD [address] [facility] [place] [address] PCP - General Family Practice 01/29/17 12/24/20 Cem Jewell(Historical)MD PCP - General Family Practice 12/25/20 Cathi Hayes MD [address] [facility] [place] [address] PCP - General Family Practice 05/16/21 Braze Operator Relationship Specialty Start Date End Date Cathi Hayes MD [address] [facility] [place] [address] PCP - General Family Practice 05/16/21 Braze Operator Relationship Specialty Start Date End Date Alexandre Ayoub MD [address] [place] [address] PCP - General 05/27/22 Lana Parker MD [address] [facility] [address] [place] [address] Consulting Physician Vascular Surgery 05/27/22 Braze Operator Relationship Specialty Start Date End Date Alexandre Ayoub MD [address] [place] [address] PCP - General Plastic Production Machine Setter 05/27/22 Lana Parker MD [address] [place] [address] Surgeon Vascular Surgery 05/27/22 [place] [address] Rehab Physician Internal Medicine Cardiovascular Disease 05/28/22 Zack Marx [address] [place] [address] Instructional Technology Director Pulmonology 05/28/22 Sharlene Moffett -Device nurse at Dr Treviño's Office 05/29/22 Braze Operator Relationship Specialty Start Date End Date Alexandre Ayoub MD [address] [place] [address] PCP - General Plastic Production Machine Setter 05/27/22 Lana Parker MD [address] [id number] Surgeon Vascular Surgery 05/27/22 Jaime Treviño [address] [place] [address] Rehab Physician Internal Medicine Cardiovascular Disease 05/28/22 Zack Marx [address] [place] [address] Instructional Technology Director Pulmonology 05/28/22 Sharlene Moffett -Device nurse at Dr Treviño's Office 05/29/22 Braze Operator Relationship Specialty Start Date End Date Alexandre Ayoub MD [address] [place] [address] PCP - General Plastic Production Machine Setter 05/27/22 Lana Parker MD [address] [address] Surgeon Vascular Surgery 05/27/22 Jaime Treviño [address] [place] [address] Rehab Physician Internal Medicine Cardiovascular Disease 05/28/22 Zack Marx [address] [place] [address] Instructional Technology Director Pulmonology 05/28/22 Sharlene Moffett -Device nurse at Dr Treviño's Office 05/29/22 Braze Operator Relationship Specialty Start Date End Date Alexandre Ayoub MD [address] [place] [address] PCP - General Plastic Production Machine Setter 05/27/22 Lana Parker MD [address] [facility] 2 [place] [address] Surgeon Vascular Surgery 05/27/22 Jaime Treviño [address] [facility] [place] [address] Rehab Physician Internal Medicine Cardiovascular Disease 05/28/[address] [place] [address] Instructional Technology Director Pulmonology 05/28/22 Sharlene Moffett -Device nurse at Dr Treviño's Office 05/29/22 Braze Operator Relationship Specialty Start Date End Date Alexandre Ayoub MD [address] [place] [address] PCP - General Plastic Production Machine Setter 05/27/22 Lana Parker MD [address] [facility] 2 [place] [address] Surgeon Vascular Surgery 05/27/22 Jaime Treviño [address] [place] [address] Rehab Physician Internal Medicine Cardiovascular Disease 05/28/[address] [place] [id number] Instructional Technology Director Pulmonology 05/28/22 Sharlene Moffett -Device nurse at Dr Treviño's Office 05/29/22 Braze Operator Relationship Specialty Start Date End Date Alexandre Ayuob MD [address] [place] [address] PCP - General Plastic Production Machine Setter 05/27/22 Lana Parker MD [address] [address] Surgeon Vascular Surgery 05/27/22 Jaime Treviño [address] [facility] [place] [address] Rehab Physician Internal Medicine Cardiovascular Disease 05/28/22 Zack Marx [address] [place] [address] Instructional Technology Director Pulmonology 05/28/22 Sharlene Moffett -Device nurse at Dr Treviño's Office 05/29/22 Braze Operator Relationship Specialty Start Date End Date Alexandre Ayoub MD [address] [place] [address] PCP - General Plastic Production Machine Setter 05/27/22 Lana Parker MD [address] [address] Surgeon Vascular Surgery 05/27/22 Jaime Treviño [address] [facility] [place] [address] Rehab Physician Internal Medicine Cardiovascular Disease 05/28/22 Zack Marx [address] [place] [address] Instructional Technology Director Pulmonology 05/28/22 Sharlene Zuhair -Device nurse at Dr Treviño's Office 05/29/22 Braze Operator Relationship Specialty Start Date End Date Alexandre Ayoub MD [address] [place], [place] [id number] PCP - General Plastic Production Machine Setter 05/27/22 Lana Parker MD [address] [facility] 2 [place] [address] Surgeon Vascular Surgery 05/27/22 Jaime Treviño [address] [facility] [place] [address] Rehab Physician Internal Medicine Cardiovascular Disease 05/28/22 Zack Marx [address] [place] [phone] Instructional Technology Director Pulmonology 05/28/22 Sharlene Moffett -Device nurse at Dr Treviño's Office 05/29/22 Scheduled Active and Recently Administ ered Medications (unrecognized section and content) PRN Medication Order 07/08/2022 07/09/2022 07/10/2022 albuterol 108 (90 Base) MCG/ACT inhaler 2 puff 2 puff, Inhalation, Every 4 hours PRN, wheezing, Starting on Fri07/05/22 at 1431, Phase II/On Unit hydrALAZINE (Apresoline) injection 10 mg 10 mg, IntraVENous, Every 1 hour PRN, high blood pressure, Starting on Fri07/05/22 at 1713, Phase II/On Unit, 2nd Line: Give for SBP GREATER than 140 mmHG and HR LESS than 110 BPM 0336 (Given - Provider: Kayy Kaur RN) 0126 (Given - Provider: Kayy Kaur, EZEKIEL) HYDROmorphone (Dilaudid) injection 0.5 mg 0.5 mg, IntraVENous, Every 3 hours PRN, severe pain (7-10), Starting on Fri07/05/22 at 1713, Phase II/On Unit, If oral and IV narcotics ordered, use oral first and only use IV if oral is ineffective or cannot take oral. Do Not give oral and IV within 1 hour of each other unless specifically ordered. labetalol (Normodyne,Trandate) injection 10 mg 10 mg, IntraVENous, Every 2 hour PRN, high blood pressure, Starting on Fri07/05/22 at 1713, Phase II/On Unit, 1st Line: Give for SBP GREATER than 140 mmHG and HR GREATER than 60 BPM 2349 (Given - Provider: Kayy Kaur RN) LORazepam (Ativan) tablet 1 mg 1 mg, Oral, Nightly PRN, anxiety, Starting on Fri07/09/22 at 1551 2040 (Given - Provider: Fercho Peacock, EZEKIEL) melatonin tablet 5 mg 5 mg, Oral, Nightly PRN, sleep, Starting on Fri07/08/22 at 2044 2102 (Given - Provider: Kayy Kaur RN) 2040 (Given - Provider: Fercho Peacock, EZEKIEL) ondansetron (Zofran) injection 4 mg(Linked Group 1) 4 mg, IntraVENous, Every 6 hours PRN, nausea, vomiting, Starting on Fri07/05/22 at 1713, Phase II/On Unit, 1st Line. Give IV if patient is unable to take orally. If inadequate response within 60 minutes, proceed to next-line agent or contact provider if no further options ordered. ondansetron ODT (Zofran-ODT) disintegrating tablet 4 mg(Linked Group 1) 4 mg, Oral, Every 8 hours PRN, nausea, vomiting, Starting on Fri07/05/22 at 1713, Phase II/On Unit, 1st Line. If inadequate response within 60 minutes, proceed to next-line agent or contact provider if no further options ordered. Patient should allow tablet to dissolve on tongue. Do not remove from blister pack until just before administering. oxyCODONE (Roxicodone) immediate release tablet 5 mg 5 mg, Oral, Every 4 hours PRN, moderate pain (4-6), severe pain (7-10), Starting on Fri07/05/22 at 1713, Phase II/On Unit 0805 (Given - Provider: Kaila Luke RN) 1141 (Given - Provider: Lexis Aguilar RN) sodium chloride 0.9 % infusion 5-250 mL/hr, IntraVENous, PRN, if patient receiving piggyback infusions and maintenance fluids are not ordered OR KVO fluids to protect IV site / prevent frequent line interruptions/ long duration, Starting on Fri07/05/22 at 1713, Phase II/On Unit, For piggyback infusion, administer at same rate as piggyback for a total of 25 mL. Enter 25 mL into dose field and piggyback rate into rate field of order. If piggyback is infusing at a rate less than 100 mL/hr, enter 25 mL into dose field and 100 mL/hr into rate field of order. For KVO fluids, enter rate of 20 mL/hr or less into rate field of order. sodium chloride 0.9% (NS) flush 10 mL 10 mL, IntraVENous, PRN, line care, Starting on Fri07/05/22 at 1713, Phase II/On Unit, After every IV line use Linked Groups Order Group 1: ondansetron ODT (Zofran-ODT) disintegrating tablet 4 mgJump to med 4 mg, Oral, Every 8 hours PRN, nausea, vomiting, Starting on Fri07/05/22 at 1713, Phase II/On Unit
1st Line. If inadequate response within 60 minutes, proceed to next-line agent or contact provider if no further options ordered. Patient should allow tablet to dissolve on tongue. Do not remove from blister pack until just before administering.
Or ondansetron (Zofran) injection 4 mgJump to med 4 mg, IntraVENous, Every 6 hours PRN, nausea, vomiting, Starting on Fri07/05/22 at 1713, Phase II/On Unit
1st Line. Give IV if patient is unable to take orally. If inadequate response within 60 minutes, proceed to next-line agent or contact provider if no further options ordered.
INFORMATION SOURCE (unrecogn ized section and content) DATE CREATED AUTHOR AUTHOR'S ORGANIZ ATION 09/23/2022 [facility] FOR RECORDS PERTAINING TO PATIENTS WHO ARE OR HAVE BEEN ENROLLED IN A CHEMICAL DEPENDENCY/SUBSTANCEABUSE PROGRAM, SOME INFORMATION MAY BE OMITTED. This clinical summary was aggregated from multiple sources. Caution should be exercised in using it in the provision of clinical care. This summary normalizes information from multiple sources, and as a consequence, information in this document may materially change the coding, format and clinical context of patient data. In addition, data may be omitted in some cases. CLINICAL DECISIONS SHOULD BE BASED ON THE PRIMARY CLINICAL RECORDS. [employer] [facility]. provides no warranty or guarantee of the accuracy or completeness of information in this document.
== END | disposition home or self-care (01) ==
LOC: CT 14:29
PROVIDERS: PCP Internal Medicine; Referring Provider Internal Medicine; Visit Provider Internal Medicine
DX: R41.89 Other symptoms and signs involving cognitive functions and awareness (principal); R29.6 Repeated falls
CPT/HCPCS: 70450

== ENCOUNTER → 2023-04-22 | Outpatient (CLI) | payer MEDICARE, MEDICAID, SELFPAY ==
[2019-07-16 09:26] VITALS: BMI 29.5
[2023-04-22 09:00] LABS: Bacteria 0 SEEN /hpf (None Seen); Mucous, Urine 0 SEEN /hpf (<or=2+); Red Blood Cells-Urine 0 SEEN /hpf (0-5); Squamous Epithelial Cells - UA 0 SEEN /hpf (5-10); White Blood Cells 0 SEEN /hpf (0-5)
[2023-04-22 09:29] LABS: Absolute Lymphocyte Count 0.77 X10^3/uL (0.83-4.51); Absolute Neutrophil Count 5.5 X10^3/uL (2.0-7.7); Basophil# 0.03 X10^3/uL; Basophil% 0.4 % (0-1); Eosinophil# 0.19 X10^3/uL; Eosinophils% 2.7 % (0-5); Hemoglobin 10.2 g/dL (12.0-15.0); Lymphocyte # 0.77 X10^3/ul (0.83-4.51); Mean Corp Hgb Conc 31.9 g/dL (32-36); Mean Corpuscular Hgb 29.8 pg (27.0-32.0); Mean Corpuscular Volume 93.6 fL (81-99); Mean Platelet Vol. 10.3 fl (6.2-12.0); Monocyte# 0.43 X10^3/uL; Monocyte% 6.2 % (0-10); NRBC Flagged by Analyzer 0 % (0-5); Neutrophil # 5.54 X10^3/uL (2.7-7.7); Neutrophil % 79.4 % (47-70); Platelet Count 199 K/mm3 (150-450); RBC Distribution Width CV 15.3 % (11.6-14.6); RBC Distribution Width SD 51.7 fl (35.1-43.9); Red Blood Count 3.42 M/mm3 (4.2-5.4)
[2023-04-22 09:34] LABS: Color, Urine Yellow (Yellow); Glucose, Dipstick 100 mg/dl (Normal); Ketone-Dipstick Negative (Negative); Leukocyte Esterase-Dipstick Negative /ul (Negative); Nitrite-Dipstick Negative (Negative); Occult Blood-Urine Negative /ul (Negative); Protein-Dipstick Negative (Negative); Urine Bilirubin Dipstick Negative (Negative); Urine Clarity Clear (Clear); Urine Urobilinogen 1 mg/dl (Normal); Urine pH 6.5 (5.0 - 8.0)
[2023-04-22 10:39] LABS: AST(SGOT) 13 U/L (15-37); Alanine Aminotransfer ALT/SGPT 15 U/L (13-56); Albumin, Serum 3.2 g/dL (3.2-5.0); Alkaline Phosphatase 132 U/L (45-117); Anion Gap 1 (5-15); BUN 36 mg/dL (7-18); BUN/Creat Ratio 20.9 RATIO (10-20); Calcium,Total 8.3 mg/dL (8.5-10.1); Chloride 105 mmol/L (98-107); Creatinine, Serum 1.72 mg/dL (0.55-1.02); EST Glomerular Filtration Rate 31 mL/min (>60); Est Glom Filt Rate - Afr Amer 37 mL/min (>60); Globulin 3.2 g/dL (2.2-4.2); Glucose 88 mg/dL (74-106); Potassium 3.8 mmol/L (3.5-5.1); Protein, Total 6.4 g/dL (6.4-8.2); Sodium Level 136 mmol/L (136-145); Thyroid Stim Hormone (TSH) 8.79 uIU/mL (0.358-3.74)
[2023-04-22 12:52] LABS: BNP,B-Type NATRIURETIC PEPTIDE 723.2 pg/mL (0-100)
== END | disposition home or self-care (01) ==
PROVIDERS: Physician Assistant Medical; PCP Internal Medicine; Referring Provider Internal Medicine; Visit Provider Internal Medicine
DX: R29.6 Repeated falls (principal); I50.20 Unspecified systolic (congestive) heart failure; I48.21 Permanent atrial fibrillation; R41.89 Other symptoms and signs involving cognitive functions and awareness; I25.10 Atherosclerotic heart disease of native coronary artery without angina pectoris
CPT/HCPCS: 36415; 80053; 81001; 83880; 84443; 85025

== ENCOUNTER 2023-05-06 17:12 | Emergency (ER) | payer MEDICARE, SELFPAY ==
[2019-07-16 09:26] VITALS: BMI 29.5
[2023-05-06 17:14] VITALS: BP 77/67; PULSE 124; RESP 18; TEMP 36.6; O2SAT 94; BMI 27.3
--- NOTE | 2023-05-06 18:00 | EKG12_ITS ---
Test Reason : CONFUSED Blood Pressure : / mmHG Vent. Rate : 103 BPM Atrial Rate : 000 BPM P-R Int : 000 ms QRS Dur : 114 ms QT Int : 366 ms P-R-T Axes : 000 018 267 degrees QTc Int : 479 ms ATIRAL FIBRILLATION Septal infarct , age undetermined Marked ST abnormality, possible anterior subendocardial injury Abnormal ECG Confirmed by HUYEN JEAN-BAPTISTE, TAYLOR ([id number]), food editor KANDY GARDINER ([id number]) on 05/07/2023 9:11:48 AM Referred By: MAURISIO/JILLIAN Confirmed By:TAYLOR MATSON MD
--- NOTE | 2023-05-06 18:00 | CT_ITS ---
INDICATION: chest and abdominal pain EXAMINATION: CTA CHEST, ABDOMEN AND PELVIS WITH CONTRAST - TECHNIQUE: A CTA of the chest, abdomen, and pelvis is obtained with sagittal and coronal reconstructed MIP views. Three-dimensional surface rendered sequence of the thoracic and abdominal aorta was obtained. A radiation dose optimization technique was used for this scan. mL of Isovue-370. Oral contrast: None. COMPARISON: None. FINDINGS: CT CHEST: THORACIC AORTA: Atherosclerotic changes of the aorta without evidence for aneurysm periaortic leak or dissection ABDOMINAL AORTA: No aneurysm or dissection. No significant atheromatous disease. The iliac arteries are unremarkable. LUNGS: Mild chronic interstitial changes in the lower lobes. . There is interstitial thickening and groundglass opacities within the right upper lobe possibly representing inflammatory changes and similar findings to a lesser extent in the right middle lobes No effusions or pneumothorax. MEDIASTINUM: Retrosternal goiter noted. No mediastinal or hilar adenopathy. HEART: Heart is enlarged.. No pericardial effusion. Multivessel coronary artery calcification CT ABDOMEN AND PELVIS: LIVER: Mild nonspecific fatty infiltration of liver without mass or bile duct dilatation. No masses identified. GALLBLADDER: The CBD is normal. Normal gallbladder. SPLEEN: Normal. PANCREAS: Pancreas is normal size. There is a tiny cyst in the body of the pancreas possibly representing pseudocyst due to chronic pancreatitis or nonspecific cystadenoma. ADRENAL GLANDS: Normal. KIDNEYS AND URETERS: The kidneys both enhance appropriately. There are normal size and shape. No hydronephrosis or nephrolithiasis. There is a simple cyst in right kidney which will not require additional imaging STOMACH: Normal. SMALL BOWEL: No abnormal distention of the small bowel. MESENTERY: No mesenteric inflammation. No ascites. COLON: Fecal retention noted throughout the colon Diffuse diverticular changes of the descending and sigmoid colon without evidence for acute diverticulitis. The colon otherwise is normal. There is a large fatty ileocecal valve. APPENDIX: No evidence for acute appendicitis. IVC: Normal. There is a large fusiform aortic aneurysm with maximum dimension of 5.3 x 5.2 cm approximately 7.9 cm in length status post aortoiliac grafting. There is faint contrast noted within the normal lumen which may be consistent with endoleak. RETROPERITONEUM: No retroperitoneal lymphadenopathy. PELVIC STRUCTURES: Normal bladder. Uterus not visualized status post hysterectomy SOFT TISSUES ABDOMEN: The anterior abdominal wall is normal. SOFT TISSUE CHEST: The extrathoracic soft tissues are normal. BONES: Dorsal spine demonstrates mild spondylosis CT/CTA Chst, Abd, Pel W and/or WO IMPRESSION: ASHD and interstitial thickening in the right upper and middle lobes with groundglass opacity possibly inflammatory. Cannot exclude Covid pneumonia.. Atherosclerotic changes of the thoracic aorta without evidence for aneurysm. There is a mid to distal abdominal aortic aneurysm measuring approximately 5.3 x 5.2 cm and approximately 7.9 cm in length status post aortoiliac grafting. There is a small amount of contrast within the [place] lumen following contrast injection which may be consistent with an endoleak of uncertain clinical significance.. Diverticular disease of the descending and sigmoid colon without evidence for acute diverticulitis Other findings as above Electronically Signed: Mahin Watkins MD at 19:39 EST ,
[2023-05-06 18:15] LABS: Absolute Lymphocyte Count 0.83 X10^3/uL (0.83-4.51); Absolute Neutrophil Count 7.6 X10^3/uL (2.0-7.7); Basophil# 0.03 X10^3/uL; Basophil% 0.3 % (0-1); Eosinophil# 0.11 X10^3/uL; Eosinophils% 1.2 % (0-5); Hematocrit 39.3 % (37-47); Hemoglobin 12.9 g/dL (12.0-15.0); Lymphocyte # 0.83 X10^3/ul (0.83-4.51); Mean Corp Hgb Conc 32.8 g/dL (32-36); Mean Corpuscular Hgb 29.8 pg (27.0-32.0); Mean Corpuscular Volume 90.8 fL (81-99); Monocyte# 0.67 X10^3/uL; Monocyte% 7.3 % (0-10); NRBC Flagged by Analyzer 0 % (0-5); Neutrophil # 7.58 X10^3/uL (2.7-7.7); Platelet Count 228 K/mm3 (150-450); RBC Distribution Width CV 13.2 % (11.6-14.6); RBC Distribution Width SD 43.9 fl (35.1-43.9); Red Blood Count 4.33 M/mm3 (4.2-5.4); White Blood Count 9.2 K/mm3 (4.4-11.0)
--- NOTE | 2023-05-06 18:15 | EX.ED.DYSGE1 ---
HPI History of Present Illness Chief Complaint: Confusion Narrative Narrative: Patient presenting for evaluation. Apparently home health point of care specialist found her blood pressure to be low at home. Patient seems to be confused and is not a good informant. She does state that she feels confused. She is not able to describe further. She knows the month. She states that earlier today she had some pain in the left flank which radiated to her right axilla and she stated it felt like a punch or repeated punching to her body. She states he is not in any pain now. Patient has a history of aortic aneurysm with repair about a year ago. It is also reported that patient has urinary incontinence. No known fevers or chills. [facility] Medical History AAA (abdominal aortic aneurysm) without rupture Acute on chronic combined systolic (congestive) and diastolic (congestive) heart failure Acute on chronic diastolic (congestive) heart failure Acute respiratory failure with hypoxia Acute upper GI bleed Anemia Anxiety and depression Arthritis Atherosclerotic heart disease of [place] coronary artery without angina pectoris Atrial fibrillation with RVR Back contusion Bilateral carotid bruits BiPAP (biphasic positive airway pressure) dependence Cancer Cardiology follow-up encounter Carpal tunnel syndrome, bilateral Chest pain Chronic kidney disease, stage 4 (severe) Claudication in peripheral vascular disease Congestive heart failure (CHF) COPD (chronic obstructive pulmonary disease) COVID-19 (01/01/20) Delirium due to another medical condition Depression Dyspnea on exertion Emphysema of lung Essential (primary) hypertension Former smoker GERD (gastroesophageal reflux disease) High cholesterol History of CHF (congestive heart failure) History of irregular heartbeat History of stress test HLD (hyperlipidemia) Hx of echocardiogram Hypertension Hypokalemia IBS (irritable bowel syndrome) Injury of back Injury of head and neck Kidney disease Melena Multinodular thyroid Nicotine dependence Non-ischemic cardiomyopathy Non-STEMI (non-ST elevated myocardial infarction) (03/19/19) Obesity On home oxygen therapy BELLE (obstructive sleep apnea) Pacemaker PAD (peripheral artery disease) Peripheral vascular occlusive disease Persistent atrial fibrillation Pneumonia due to 2019 novel coronavirus (01/01/20) Post-menopausal Rheumatic fever Rheumatoid arthritis Sepsis (01/01/20) Sinus pause Sleep apnea Smoking greater than 30 pack years Tachy-erica syndrome Unstable angina pectoris due to coronary arteriosclerosis Wears dentures Wears glasses Wheezing Home Medications trazodone 150 mg tablet 150 mg PO QHS sleep 11/24/20 [History Last Taken 12/04/21] calcium carbonate 600 mg-vitamin D3 12.5 mcg (500 unit) capsule (Calcium 600 with Vitamin D3) 1 cap PO DAILY supplement 02/22/21 [History Last Taken 12/05/21] ascorbic acid (vitamin C) 1,000 mg tablet (Vitamin C) 1,000 mg PO DAILY supplement 12/05/21 [History Last Taken 12/04/21] lorazepam 1 mg tablet 1 mg PO TID PRN Anxiety 12/05/21 [History Last Taken 12/05/21] vitamin E (dl, acetate) 45 mg (100 unit) capsule 45 mg PO DAILY supplement 12/05/21 [History Last Taken 12/04/21] apixaban 5 mg tablet (Eliquis) 5 mg PO BID blood thinner #180 tabs 12/26/21 [Rx Last Taken Unknown] cholecalciferol (vitamin D3) 25 mcg (1,000 unit) capsule (Vitamin D3) 25 mcg PO DAILY SUPPLEMENT 04/25/22 [History Last Taken Unknown] clopidogrel 75 mg tablet 75 mg PO DAILY antiplatelet #90 tabs 06/12/22 [Rx Last Taken Unknown] metoprolol tartrate 100 mg tablet 100 mg PO BID BP #180 tabs 06/12/22 [Rx Last Taken Unknown] diltiazem HCl 240 mg capsule,24 hr,extended release 240 mg PO DAILY BP #90 caps 06/21/22 [Rx Last Taken Unknown] isosorbide mononitrate 60 mg tablet,extended release 24 hr 60 mg PO DAILY HEART #90 tabs 06/21/22 [Rx Last Taken Unknown] nitroglycerin 0.4 mg sublingual tablet (Nitrostat) 0.4 mg sublingual Q5M PRN Chest Pain #25 tabs 06/27/22 [Rx Last Taken Unknown] potassium chloride 20 mEq tablet,extended release 20 meq PO BID supplement #180 tabs 08/06/22 [Rx Last Taken Unknown] dapagliflozin propanediol 10 mg tablet (Farxiga) See Rx Instructions .Route .COMPLEX #30 TABLETS 08/20/22 [Rx Last Taken Unknown] buspirone 10 mg tablet 10 mg PO TID mental health #90 tabs 09/24/22 [Rx Last Taken Unknown] furosemide 40 mg tablet 40 mg PO BID diuretic #60 tabs 10/29/22 [Rx Last Taken Unknown] duloxetine 60 mg capsule,delayed release 60 mg PO DAILY mental health #30 caps 11/21/22 [Rx Last Taken Unknown] albuterol sulfate 90 mcg/actuation aerosol inhaler 1 - 2 puff inhalation Q4H PRN PRN Dyspnea, wheezing ##1 01/15/23 [Rx Last Taken Unknown] fluticasone 500 mcg-salmeterol 50 mcg/dose blistr powdr for inhalation (Wixela Inhub) 1 inh inhalation BID breathing #60 ea 01/15/23 [Rx Last Taken Unknown] tiotropium bromide 2.5 mcg/actuation mist for inhalation (Spiriva Respimat) 2 puff inhalation DAILY COPD #4 grams 01/15/23 [Rx Last Taken Unknown] duloxetine 30 mg capsule,delayed release 30 mg PO DAILY mental health #30 caps 03/04/23 [Rx Last Taken Unknown] atorvastatin 40 mg tablet 40 mg PO DAILY cholesterol #90 tabs 03/18/23 [Rx Last Taken Unknown] pantoprazole 40 mg tablet,delayed release 40 mg PO DAILY GERD #90 tabs 03/18/23 [Rx Last Taken Unknown] ferrous sulfate 325 mg (65 mg iron) tablet 325 mg PO BID supplement #60 tabs 03/25/23 [Rx Last Taken Unknown] dicyclomine 10 mg capsule 10 mg PO 4X/DAY ibs #120 caps 04/21/23 [Rx Last Taken Unknown] amiodarone 200 mg tablet 100 mg (1/2 x 200 mg) PO DAILY BP #90 tabs 04/22/23 [Rx Last Taken Unknown] spironolactone 25 mg tablet 25 mg PO DAILY #30 tabs 04/22/23 [Rx Last Taken Unknown] levothyroxine 25 mcg tablet (Synthroid) 25 mcg PO DAILY #30 tabs 04/23/23 [Rx Last Taken Unknown] gabapentin 300 mg capsule See Rx Instructions .Route .COMPLEX #120 caps 04/25/23 [Rx Last Taken Unknown] Allergy/AdvReac Type Severity Reaction Status Date / Time lisinopril Allergy tongue Verified 05/06/23 17:13 swelling Family History Father Heart disease Hypertension Seizures Sister Hypertension Son CVA (cerebral vascular accident) Daughter Cancer stomach Other Family history of hypertension Surgical History Cataract extraction status History of angioplasty of peripheral vessel History of bilateral leg stents History of bunionectomy of right great toe History of cardioversion (07/18/20) History of colonoscopy (06/2018) History of coronary artery stent placement (03/18/19) History of left heart catheterization (11/25/19) History of permanent cardiac pacemaker placement (03/27/20) History of tonsillectomy Hx of APLL Hx of cardiac cath Hx of colonoscopy Hx of hysterectomy S/P AAA repair Status post left foot surgery Social History household members: other details: grandson housing: house 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al status: retired 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 Smoking Status: Former smoker quit date: 04/17/20 pack-years: 20 Electronic Cigarette Use: not used how long ago did patient quit smoking: May 2020 alcohol intake: never substance use type: does not use caffeine: No what type of physical activity do you participate in: none do you feel safe at home: Yes ROS ROS ED Constitutional Constitutional ED: Denies chills or fever(s) Eyes Eyes: Denies change in vision ENT ENT ED: Denies rhinorrhea or sore throat Cardiovascular Cardiovascular: Denies chest pain or palpitations Respiratory/Chest Respiratory/Chest: Denies cough or dyspnea Gastrointestinal Gastrointestinal: Reports abdominal pain Genitourinary Genitourinary ED: Denies dysuria or hematuria Musculoskeletal Musculoskeletal: Denies arthralgias Integumentary Denies abscess Neurologic Neurologic: Denies headache(s) Psychiatric Psychiatric: Denies anxiety or depression EXAM Physical Exam Const Vital Signs: 05/06/23 17:14 05/06/23 19:04 05/06/23 20:00 Temperature 97.9 F Temperature Source Temporal Pulse Rate 124 H 101 H 97 Respiratory Rate 18 14 14 Blood Pressure 77/67 L 119/82 H 121/92 H Blood Pressure Mean 70 94 101 Pulse Ox 94 91 94 Oxygen Delivery Method Room Air Room Air Positive well nourished General Appearance ED: NAD HEENT Reports moist mucous membranes Eyes PERRL Chest Wall inspection of chest normal Resp normal respiratory effort and clear to auscultation bilaterally Auscultation: Negative for rales, rhonchi or wheezes Cardio regular rate and regular rhythm MDM MDM MDM Narrative Medical decision making narrative: Patient presenting with abdominal pain, confusion. Concern initially is that she has a history of aortic graft and AAA. She is complaining of pain from the left hip to the right axilla which feels like a stabbing or punching in the area. CT of the chest abdomen pelvis was ordered out of concern for dissection. Patient currently pain-free at this moment. She given IV fluids. Differential includes dehydration, electrolyte abnormalities, UTI, COVID, flu, RSV. Patient was having some urinary incontinence but she is also little bit confused. There is nobody in the room on the initial evaluation. CBC ultimately shows normal white blood cell count 9.2 hemoglobin 12.9. Platelets 228. Electrolytes are normal however the patient's creatinine is 2.94 this is elevated it also may be the reason why she is hypotensive. Given that she had a CTA I discussed with radiology they gave you the protocol for fluids which is 3 cc/kg/h. Patient is now normotensive. Urinalysis was negative. Lipase was normal. CTA of the chest abdomen pelvis shows concern for endovascular leak of undetermined significance. Spoke with [facility] and particularly to vascular surgery Dr. (Dr. Angel) who because of the pain wanted her to be transferred to be evaluated. Will send her images digitally. Patient remained medically stable and was consented for transfer. CTA also showed some groundglass opacities in the lungs however COVID, influenza, RSV are all negative. Patient transported in stable condition at 9:40 PM. Impression: 1. Acute kidney injury 2. Hypotension?resolved 3. History of aortic aneurysm with endovascular leak 4. Confusion Lab Data Attestation: I reviewed the patient's lab results. Labs: Laboratory Results - last 24 hr 05/06/23 05/06/23 17:20 18:56 WBC 9.2 RBC 4.33 Hgb 12.9 Hct 39.3 MCV 90.8 MCH 29.8 MCHC 32.8 RDW Std Deviation 43.9 RDW Coeff of Natalie 13.2 Plt Count 228 MPV 11.0 Immature Gran % (Auto) 0.200 Neut % (Auto) 82.0 H Lymph % (Auto) 9.0 L Frontier % (Auto) 7.3 Eos % (Auto) 1.2 Baso % (Auto) 0.3 Absolute Neuts (auto) 7.6 Absolute Lymphs (auto) 0.83 Nucleated RBC % 0 Sodium 134 L Potassium 5.0 Chloride 103 Carbon Dioxide 25.0 Anion Gap 6 BUN 66 H Creatinine 2.94 H Estim Creat Clear Calc 15.18 Est GFR (MDRD) Af Amer 20 L Est GFR (MDRD) Non-Af 17 L BUN/Creatinine Ratio 22.4 H Glucose 110 H Calcium 8.9 Total Bilirubin 0.50 AST 11 L ALT 9 L Alkaline Phosphatase 143 H Total Protein 7.7 Albumin 3.7 Globulin 4.0 Albumin/Globulin Ratio 0.9 Lipase 55 Urine Color Yellow Urine Clarity Clear Urine pH 5.0 Ur Specific [place] 1.015 Urine Protein Negative Urine Glucose (UA) 50 H Urine Ketones Negative Urine Occult Blood Negative Urine Nitrite Negative Urine Bilirubin Negative Urine Urobilinogen Normal Ur Leukocyte Esterase Negative Urine RBC 0 SEEN Urine WBC 0 SEEN Ur Squamous Epith Cells 0 SEEN Urine Bacteria 0 SEEN Urine Mucus 0 SEEN Radiography Diagnostic Testing: Clinical Impression(s) from Imaging Studies Chest/Abdomen/Pelvis CTA 05/06/23 18:00 IMPRESSION: ASHD and interstitial thickening in the right upper and middle lobes with groundglass opacity possibly inflammatory. Cannot exclude Covid pneumonia.. Atherosclerotic changes of the thoracic aorta without evidence for aneurysm. There is a mid to distal abdominal aortic aneurysm measuring approximately 5.3 x 5.2 cm and approximately 7.9 cm in length status post aortoiliac grafting. There is a small amount of contrast within the [place] lumen following contrast injection which may be consistent with an endoleak of uncertain clinical significance.. Diverticular disease of the descending and sigmoid colon without evidence for acute diverticulitis Other findings as above Electronically Signed: Mahin Watkins MD at 19:39 EST , Discharge Plan Triage Chief Complaint: Confusion ED Provider: Jovani Kearns Dx/Rx/DC Orders Prescriptions: No Action calcium carbonate-vitamin D3 [Calcium 600 with Vitamin D3] 600 mg(1,500mg) -500 unit capsule 1 cap PO DAILY duloxetine 60 mg capsule,delayed release(DR/EC) 60 mg PO DAILY Qty: 30 5RF albuterol sulfate 90 mcg/actuation HFA aerosol inhaler 1 - 2 puff INHALATION Q4H PRN PRN (Reason: Dyspnea, wheezing) Qty: 1 6RF fluticasone propion-salmeterol [Wixela Inhub] 500-50 mcg/dose blister with device 1 inh INHALATION BID Qty: 60 6RF Spiriva Respimat 2.5 mcg/actuation mist 2 puff inhalation DAILY Qty: 4 11RF trazodone 150 mg Tablet 150 mg PO QHS ascorbic acid (vitamin C) [Vitamin C] 1,000 mg tablet 1,000 mg PO DAILY lorazepam 1 mg tablet 1 mg PO TID PRN (Reason: Anxiety) Rx Instructions: TAKE 1 TABLET BY MOUTH THREE TIMES A DAY AND 1 TABLET TWICE A DAY NEEDED FOR ANXIETY/RESTLESSNESS (PALLIATIVE CARE) vitamin E (dl, acetate) 45 mg (100 unit) capsule 45 mg PO DAILY cholecalciferol (vitamin D3) [Vitamin D3] 25 mcg (1,000 unit) Capsule 25 mcg PO DAILY Eliquis 5 mg tablet 5 mg PO BID Qty: 180 3RF clopidogrel 75 mg tablet 75 mg PO DAILY Qty: 90 3RF metoprolol tartrate 100 mg tablet 100 mg PO BID Qty: 180 3RF diltiazem HCl 240 mg capsule,extended release 24 hr 240 mg PO DAILY Qty: 90 3RF isosorbide mononitrate 60 mg tablet extended release 24 hr 60 mg PO DAILY Qty: 90 3RF nitroglycerin [Nitrostat] 0.4 mg tablet, sublingual 0.4 mg SUBLINGUAL Q5M PRN (Reason: Chest Pain) Qty: 25 3RF potassium chloride 20 mEq tablet extended release 20 meq PO BID Qty: 180 3RF Farxiga 10 mg tablet See Rx Instructions .ROUTE .COMPLEX Qty: 30 5RF Dose Instruction: TAKE 1 TABLET BY MOUTH DAILY Rx Instructions: TAKE 1 TABLET BY MOUTH DAILY buspirone 10 mg tablet 10 mg PO TID Qty: 90 5RF furosemide 40 mg tablet 40 mg PO BID Qty: 60 12RF duloxetine 30 mg capsule,delayed release(DR/EC) 30 mg PO DAILY Qty: 30 5RF pantoprazole 40 mg tablet,delayed release (DR/EC) 40 mg PO DAILY Qty: 90 0RF atorvastatin 40 mg tablet 40 mg PO DAILY Qty: 90 0RF ferrous sulfate 325 mg (65 mg iron) tablet 325 mg PO BID Qty: 60 5RF dicyclomine 10 mg capsule 10 mg PO 4X/DAY Qty: 120 0RF spironolactone 25 mg tablet 25 mg PO DAILY Qty: 30 11RF amiodarone 200 mg tablet 100 mg PO DAILY Qty: 90 3RF levothyroxine [Synthroid] 25 mcg tablet 25 mcg PO DAILY Qty: 30 1RF gabapentin 300 mg capsule See Rx Instructions .ROUTE .COMPLEX Qty: 120 0RF Dose Instruction: TAKE 1 CAPSULE BY MOUTH IN THE MORNING and AFTERNOON. TAKE 2 (TWO) CAPSULES BY MOUTH AT BEDTIME Rx Instructions: TAKE 1 CAPSULE BY MOUTH IN THE MORNING and AFTERNOON. TAKE 2 (TWO) CAPSULES BY MOUTH AT BEDTIME Primary Care Provider: Opal Ayoub Referrals: Opal Ayoub MD [Primary Care Provider] -
[2023-05-06 18:32] LABS: ALB/GLOB Ratio 0.9 RATIO (0.9-2.4); AST(SGOT) 11 U/L (15-37); Alanine Aminotransfer ALT/SGPT 9 U/L (13-56); Albumin, Serum 3.7 g/dL (3.2-5.0); Alkaline Phosphatase 143 U/L (45-117); Anion Gap 6 (5-15); BUN 66 mg/dL (7-18); BUN/Creat Ratio 22.4 RATIO (10-20); Calcium,Total 8.9 mg/dL (8.5-10.1); Chloride 103 mmol/L (98-107); Creatinine, Serum 2.94 mg/dL (0.55-1.02); EST Glomerular Filtration Rate 17 mL/min (>60); Est Glom Filt Rate - Afr Amer 20 mL/min (>60); Estimated Creatinine Clearance 15.18 ml/min; Glucose 110 mg/dL (74-106); Lipase 55 U/L (13-75); Protein, Total 7.7 g/dL (6.4-8.2); Sodium Level 134 mmol/L (136-145)
[2023-05-06] MEDS: 0.9% Normal Saline (1000mL) 1,000 ML 1000 ML IV (18:34)
[2023-05-06 19:04] VITALS: BP 119/82; PULSE 101; RESP 14; O2SAT 91
[2023-05-06 19:15] LABS: Bacteria 0 SEEN /hpf (None Seen); Mucous, Urine 0 SEEN /hpf (<or=2+); Red Blood Cells-Urine 0 SEEN /hpf (0-5); Squamous Epithelial Cells - UA 0 SEEN /hpf (5-10); White Blood Cells 0 SEEN /hpf (0-5)
[2023-05-06 19:48] LABS: Color, Urine Yellow (Yellow); Glucose, Dipstick 50 mg/dl (Normal); Ketone-Dipstick Negative (Negative); Leukocyte Esterase-Dipstick Negative /ul (Negative); Nitrite-Dipstick Negative (Negative); Occult Blood-Urine Negative /ul (Negative); Protein-Dipstick Negative (Negative); Specific Gravity, Urine 1.015 (1.002-1.030); Urine Bilirubin Dipstick Negative (Negative); Urine Clarity Clear (Clear); Urine Urobilinogen Normal (Normal)
[2023-05-06] MEDS: 0.9% Normal Saline (1000mL) 1,000 ML 200 ML IV (19:49)
[2023-05-06 20:00] VITALS: BP 121/92; PULSE 97; RESP 14; O2SAT 94
[2023-05-06 21:00] VITALS: BP 117/71; PULSE 92; RESP 16; O2SAT 95
--- NOTE | 2023-05-06 21:05 | ED.RN ---
CALLED PHYSICIANS AT 2054 FOR TRANSFER TO [facility], GAVE AN ETA OF 2-3 HRS. I REQESTED [facility] THEY ARE TO CALL ME BACK HERE SHORTLY.
[2023-05-06 21:52] VITALS: BP 111/67; PULSE 94; RESP 14; TEMP 36.6; O2SAT 95
--- NOTE | 2023-05-06 21:54 | ED.RN ---
DUANE MORALES, SON CALLED TO NOTIFY OF PT'S TRANSFER TO [facility].
== END 2023-05-06 21:58 | disposition short-term general hospital (02) ==
LOC: ED 19:54
PROVIDERS: Emergency Provider Student in an Organized Health Care Education/Training Program; PCP Internal Medicine; Visit Provider Student in an Organized Health Care Education/Training Program
DX: R41.0 Disorientation, unspecified (principal); T82.310A Breakdown (mechanical) of aortic (bifurcation) graft (replacement), initial encounter; N17.9 Acute kidney failure, unspecified; J44.9 Chronic obstructive pulmonary disease, unspecified; I50.43 Acute on chronic combined systolic (congestive) and diastolic (congestive) heart failure; I13.0 Hypertensive heart and chronic kidney disease with heart failure and stage 1 through stage 4 chronic kidney disease, or unspecified chronic kidney disease; N18.4 Chronic kidney disease, stage 4 (severe); I48.19 Other persistent atrial fibrillation; M79.621 Pain in right upper arm; Z87.891 Personal history of nicotine dependence; I95.9 Hypotension, unspecified; I25.10 Atherosclerotic heart disease of native coronary artery without angina pectoris; E78.00 Pure hypercholesterolemia, unspecified; I25.2 Old myocardial infarction; G47.33 Obstructive sleep apnea (adult) (pediatric); Z99.81 Dependence on supplemental oxygen; Z95.0 Presence of cardiac pacemaker; Z79.899 Other long term (current) drug therapy; F41.8 Other specified anxiety disorders; Z79.01 Long term (current) use of anticoagulants; Z79.02 Long term (current) use of antithrombotics/antiplatelets; Z79.51 Long term (current) use of inhaled steroids; K21.9 Gastro-esophageal reflux disease without esophagitis; Z98.49 Cataract extraction status, unspecified eye; Z95.5 Presence of coronary angioplasty implant and graft; Z90.710 Acquired absence of both cervix and uterus; M25.551 Pain in right hip
CPT/HCPCS: 71275; 74174; 80053; 81001; 83690; 85025; 87631; 93005; 96360; 96361; 99284; J7030; Q9967; A4216

== ENCOUNTER 2023-05-15 19:19 | Emergency (ER) | payer MEDICARE, SELFPAY ==
[2019-07-16 09:26] VITALS: BMI 29.5
[2023-05-15 19:20] VITALS: BP 100/54; PULSE 69; RESP 18; TEMP 36.1; O2SAT 100; BMI 23.8
--- NOTE | 2023-05-15 19:33 | EKG12_ITS ---
Test Reason : DYSRHYTHMIA Blood Pressure : / mmHG Vent. Rate : 073 BPM Atrial Rate : 073 BPM P-R Int : 292 ms QRS Dur : 116 ms QT Int : 390 ms P-R-T Axes : 102 -03 249 degrees QTc Int : 429 ms Sinus rhythm with 1st degree A-V block Left ventricular hypertrophy with QRS widening and repolarization abnormality ( [place] product ) Cannot rule out Septal infarct , age undetermined Abnormal ECG Confirmed by MARTIN JEAN-BAPTISTE, GABO ([id number]), social media editor KANDY GARDINER ([id number]) on 05/19/2023 9:09:26 AM Referred By: NAOMI Confirmed By:TITA SALAZAR MD
--- NOTE | 2023-05-15 19:34 | EX.ED.DYSGE1 ---
HPI <GABRIELLA Tay - Last Filed: 05/15/23 21:28> History of Present Illness Chief Complaint: Palpitations Narrative Narrative: Patient presenting today due to concerns for A-fib RVR. She reports that she was at her PCPs office today and they noticed that she was tachycardic and performed a EKG which showed that she was in A-fib RVR. Patient did not have any palpitations at that time. Patient reports that her PCP ordered outpatient lab work and then called her this afternoon and told her to come in for evaluation. She denies any fevers, chills, shortness of breath, and chest pain. She has a history of atrial fibrillation and is on Eliquis. PFS <GABRIELLA Tay - Last Filed: 05/15/23 21:28> [facility] Medical History AAA (abdominal aortic aneurysm) without rupture Acute on chronic combined systolic (congestive) and diastolic (congestive) heart failure Acute on chronic diastolic (congestive) heart failure Acute respiratory failure with hypoxia Acute upper GI bleed Anemia Anxiety and depression Arthritis Atherosclerotic heart disease of [place] coronary artery without angina pectoris Atrial fibrillation with RVR Back contusion Bilateral carotid bruits BiPAP (biphasic positive airway pressure) dependence Cancer Cardiology follow-up encounter Carpal tunnel syndrome, bilateral Chest pain Chronic kidney disease, stage 4 (severe) Claudication in peripheral vascular disease Congestive heart failure (CHF) COPD (chronic obstructive pulmonary disease) COVID-19 (01/01/20) Delirium due to another medical condition Depression Dyspnea on exertion Emphysema of lung Essential (primary) hypertension Former smoker GERD (gastroesophageal reflux disease) High cholesterol History of CHF (congestive heart failure) History of irregular heartbeat History of stress test HLD (hyperlipidemia) Hx of echocardiogram Hypertension Hypokalemia IBS (irritable bowel syndrome) Injury of back Injury of head and neck Kidney disease Melena Multinodular thyroid Nicotine dependence Non-ischemic cardiomyopathy Non-STEMI (non-ST elevated myocardial infarction) (03/19/19) Obesity On home oxygen therapy BELLE (obstructive sleep apnea) Pacemaker PAD (peripheral artery disease) Peripheral vascular occlusive disease Persistent atrial fibrillation Pneumonia due to 2019 novel coronavirus (01/01/20) Post-menopausal Rheumatic fever Rheumatoid arthritis Sepsis (01/01/20) Sinus pause Sleep apnea Smoking greater than 30 pack years Tachy-erica syndrome Unstable angina pectoris due to coronary arteriosclerosis Wears dentures Wears glasses Wheezing Home Medications trazodone 150 mg tablet 150 mg PO QHS sleep 11/24/20 [History Last Taken 12/04/21] calcium carbonate 600 mg-vitamin D3 12.5 mcg (500 unit) capsule (Calcium 600 with Vitamin D3) 1 cap PO DAILY supplement 02/22/21 [History Last Taken 12/05/21] ascorbic acid (vitamin C) 1,000 mg tablet (Vitamin C) 1,000 mg PO DAILY supplement 12/05/21 [History Last Taken 12/04/21] lorazepam 1 mg tablet 1 mg PO TID PRN Anxiety 12/05/21 [History Last Taken 12/05/21] vitamin E (dl, acetate) 45 mg (100 unit) capsule 45 mg PO DAILY supplement 12/05/21 [History Last Taken 12/04/21] apixaban 5 mg tablet (Eliquis) 5 mg PO BID blood thinner #180 tabs 12/26/21 [Rx Last Taken Unknown] cholecalciferol (vitamin D3) 25 mcg (1,000 unit) capsule (Vitamin D3) 25 mcg PO DAILY SUPPLEMENT 04/25/22 [History Last Taken Unknown] clopidogrel 75 mg tablet 75 mg PO DAILY antiplatelet #90 tabs 06/12/22 [Rx Last Taken Unknown] metoprolol tartrate 100 mg tablet 100 mg PO BID BP #180 tabs 06/12/22 [Rx Last Taken Unknown] diltiazem HCl 240 mg capsule,24 hr,extended release 240 mg PO DAILY BP #90 caps 06/21/22 [Rx Last Taken Unknown] isosorbide mononitrate 60 mg tablet,extended release 24 hr 60 mg PO DAILY HEART #90 tabs 06/21/22 [Rx Last Taken Unknown] nitroglycerin 0.4 mg sublingual tablet (Nitrostat) 0.4 mg sublingual Q5M PRN Chest Pain #25 tabs 06/27/22 [Rx Last Taken Unknown] potassium chloride 20 mEq tablet,extended release 20 meq PO BID supplement #180 tabs 08/06/22 [Rx Last Taken Unknown] dapagliflozin propanediol 10 mg tablet (Farxiga) See Rx Instructions .Route .COMPLEX #30 TABLETS 08/20/22 [Rx Last Taken Unknown] furosemide 40 mg tablet 40 mg PO BID diuretic #60 tabs 10/29/22 [Rx Last Taken Unknown] duloxetine 60 mg capsule,delayed release 60 mg PO DAILY mental health #30 caps 11/21/22 [Rx Last Taken Unknown] albuterol sulfate 90 mcg/actuation aerosol inhaler 1 - 2 puff inhalation Q4H PRN PRN Dyspnea, wheezing ##1 01/15/23 [Rx Last Taken Unknown] fluticasone 500 mcg-salmeterol 50 mcg/dose blistr powdr for inhalation (Wixela Inhub) 1 inh inhalation BID breathing #60 ea 01/15/23 [Rx Last Taken Unknown] tiotropium bromide 2.5 mcg/actuation mist for inhalation (Spiriva Respimat) 2 puff inhalation DAILY COPD #4 grams 01/15/23 [Rx Last Taken Unknown] duloxetine 30 mg capsule,delayed release 30 mg PO DAILY mental health #30 caps 03/04/23 [Rx Last Taken Unknown] atorvastatin 40 mg tablet 40 mg PO DAILY cholesterol #90 tabs 03/18/23 [Rx Last Taken Unknown] pantoprazole 40 mg tablet,delayed release 40 mg PO DAILY GERD #90 tabs 03/18/23 [Rx Last Taken Unknown] ferrous sulfate 325 mg (65 mg iron) tablet 325 mg PO BID supplement #60 tabs 03/25/23 [Rx Last Taken Unknown] dicyclomine 10 mg capsule 10 mg PO 4X/DAY ibs #120 caps 04/21/23 [Rx Last Taken Unknown] amiodarone 200 mg tablet 100 mg (1/2 x 200 mg) PO DAILY BP #90 tabs 04/22/23 [Rx Last Taken Unknown] spironolactone 25 mg tablet 25 mg PO DAILY #30 tabs 04/22/23 [Rx Last Taken Unknown] levothyroxine 25 mcg tablet (Synthroid) 25 mcg PO DAILY #30 tabs 04/23/23 [Rx Last Taken Unknown] gabapentin 300 mg capsule See Rx Instructions .Route .COMPLEX #120 caps 04/25/23 [Rx Last Taken Unknown] buspirone 10 mg tablet 10 mg PO TID mental health #90 tabs 05/14/23 [Rx Last Taken Unknown] Allergy/AdvReac Type Severity Reaction Status Date / Time lisinopril Allergy tongue Verified 05/16/23 18:22 swelling Family History Father Heart disease Hypertension Seizures Sister Hypertension Son CVA (cerebral vascular accident) Daughter Cancer stomach Other Family history of hypertension Surgical History Cataract extraction status History of angioplasty of peripheral vessel History of bilateral leg stents History of bunionectomy of right great toe History of cardioversion (07/18/20) History of colonoscopy (06/2018) History of coronary artery stent placement (03/18/19) History of left heart catheterization (11/25/19) History of permanent cardiac pacemaker placement (03/27/20) History of tonsillectomy Hx of APLL Hx of cardiac cath Hx of colonoscopy Hx of hysterectomy S/P AAA repair Status post left foot surgery Social History household members: other details: grandson housing: house 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al status: retired 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: worked in a [place] [employer] Smoking Status: Former smoker quit date: 04/17/20 pack-years: 20 Electronic Cigarette Use: not used how long ago did patient quit smoking: May 2020 alcohol intake: never substance use type: does not use caffeine: No what type of physical activity do you participate in: none do you feel safe at home: Yes ROS <GABRIELLA Tay - Last Filed: 05/15/23 21:28> ROS ED Constitutional Constitutional ED: Denies chills or fever(s) Cardiovascular Cardiovascular: Denies chest pain or palpitations Respiratory/Chest Respiratory/Chest: Denies cough or dyspnea Gastrointestinal Gastrointestinal: Denies abdominal pain, nausea or vomiting Musculoskeletal Musculoskeletal: Denies arthralgias or myalgias Integumentary Denies rash Neurologic Neurologic: Denies weakness EXAM <GABRIELLA Tay - Last Filed: 05/15/23 21:28> Physical Exam Const Vital Signs: 05/15/23 19:20 05/15/23 19:37 05/15/23 21:08 Temperature 96.9 F L 97.8 F Temperature Source Temporal Pulse Rate 69 75 Respiratory Rate 18 16 Respiratory Effort Normal Blood Pressure 100/54 L 96/54 L Blood Pressure Mean 69 68 Pulse Ox 100 99 Oxygen Delivery Method Room Air Positive well nourished, well developed and no apparent distress General Appearance ED: well developed HEENT Reports normocephalic and head/scalp atraumatic Mouth ED: Yes moist mucous membranes normal Eyes PERRL and EOMs intact bilaterally Neck full ROM and supple Chest Wall inspection of chest normal Resp normal respiratory effort and clear to auscultation bilaterally Cardio regular rate and regular rhythm GI soft to palpation, non-tender, non-distended and no masses Back/Spine normal ROM and normal to inspection Extremity normal to inspection and full ROM Neuro oriented x3, CN's II-XII intact bilaterally, moves all extremities, no focal motor deficits and no sensory deficits noted Sensorium / Orientation: awake and alert Psych mental status grossly normal and thought process normal Skin no rashes or lesions noted and no wounds <Dr. Jovani Kearns DO - Last Filed: 05/16/23 22:15> Physical Exam Const Vital Signs: 05/15/23 19:20 05/15/23 19:37 05/15/23 21:08 Temperature 96.9 F L 97.8 F Temperature Source Temporal Pulse Rate 69 75 Respiratory Rate 18 16 Respiratory Effort Normal Blood Pressure 100/54 L 96/54 L Blood Pressure Mean 69 68 Pulse Ox 100 99 Oxygen Delivery Method Room Air MDM <GABRIELLA Tay - Last Filed: 05/15/23 21:28> [facility] MDM Narrative Medical decision making narrative: Patient presenting due to concerns for A-fib RVR. She saw her PCP today, I was able to review this note. She does have a history of atrial fibrillation, Dr. Ayoub consulted cardiology and spoke with Dr. Hudson who recommended having the patient take an extra 100 mg of her amiodarone tonight and tomorrow morning and then following up in their office tomorrow. She does have a history of confusion, PCP is working this up. She does appear to have some confusion on exam and reports that her PCP told her to come in today to be evaluated, however, I do not see this anywhere in the PCP note. Patient also reports that her PCP did not perform an EKG on her, however, PCP reports that the EKG was performed and showed atrial fibrillation. Outpatient labs were obtained today, I did review these and CBC shows a WBC of 16.1, CMP showed a sodium of 133, BUN of 53, creatinine 2.93, alkaline phosphatase 126. Kidney function is consistent with previous labs. Chest x-ray does not show any acute findings. Troponin obtained here and is WNL. She is not in atrial fibrillation here. I did remind patient that cardiology recommends the extra dose of amiodarone tonight and tomorrow morning, I did write this down for her and verbalized this to her son and they both understand. Cardiology is to see them tomorrow morning, I have given her the phone number so that she can call to make the appointment. Return instructions were given and she will be discharged home in stable condition. Lab Data Attestation: I reviewed the patient's lab results. Labs: Laboratory Results - last 24 hr 05/15/23 19:35 Troponin I High Sens 19 Radiography X-Ray: Read by ED Physician and Read by Radiologist Diagnostic Testing: Clinical Impression(s) from Imaging Studies Chest X-Ray 05/15/23 19:45 IMPRESSION: No active disease. Cardiomegaly. Electronically Signed: Daniel Kimbrough MD at 20:27 EST , EKG Initial EKG: Comments: 71 bpm, sinus rhythm with first-degree AV block, left ventricular hypertrophy, no ST elevation, reviewed and interpreted by attending ED physician <Dr. Jovani Kearns, DO - Last Filed: 05/16/23 22:15> [facility] Narrative Medical decision making narrative: Patient presenting due to concerns for A-fib RVR. She saw her PCP today, I was able to review this note. She does have a history of atrial fibrillation, Dr. Ayoub consulted cardiology and spoke with Dr. Hudson who recommended having the patient take an extra 100 mg of her amiodarone tonight and tomorrow morning and then following up in their office tomorrow. She does have a history of confusion, PCP is working this up. She does appear to have some confusion on exam and reports that her PCP told her to come in today to be evaluated, however, I do not see this anywhere in the PCP note. Patient also reports that her PCP did not perform an EKG on her, however, PCP reports that the EKG was performed and showed atrial fibrillation. Outpatient labs were obtained today, I did review these and CBC shows a WBC of 16.1, CMP showed a sodium of 133, BUN of 53, creatinine 2.93, alkaline phosphatase 126. Kidney function is consistent with previous labs. Chest x-ray does not show any acute findings. Troponin obtained here and is WNL. She is not in atrial fibrillation here. I did remind patient that cardiology recommends the extra dose of amiodarone tonight and tomorrow morning, I did write this down for her and verbalized this to her son and they both understand. Cardiology is to see them tomorrow morning, I have given her the phone number so that she can call to make the appointment. Return instructions were given and she will be discharged home in stable condition. This patient was seen with a PA/PROFESSOR [employer] Individually assessed they patient including history and physical. I have reviewed everything on the chart that is available and agree with the documentation provided by the PA/[employer] including discussion about the assessment, treatment plan, discussion, and return precautions. Patient presenting with A-fib. This is in her history that she is a little tachycardic tonight but she is already been seen for this please see above. Patient had full workup here today creatinine near what it was last visit. She was given some IV fluids and some Cardizem. We recommended that she follow-up with cardiology and her PCP. [facility] and they recommended outpatient follow-up as well with them. Lab Data Labs: Laboratory Results - last 24 hr 05/15/23 19:35 Troponin I High Sens 19 Radiography Diagnostic Testing: Clinical Impression(s) from Imaging Studies Chest X-Ray 05/15/23 19:45 IMPRESSION: No active disease. Cardiomegaly. Electronically Signed: Daniel Kimbrough MD at 20:27 EST , Discharge Plan Triage Chief Complaint: Palpitations ED Midlevel Provider: Lisa Joy ED Provider: Jovani Kearns Dx/Rx/DC Orders Clinical Impression: Atrial fibrillation Instructions: AFib Dc Prescriptions: No Action calcium carbonate-vitamin D3 [Calcium 600 with Vitamin D3] 600 mg(1,500mg) -500 unit capsule 1 cap PO DAILY duloxetine 60 mg capsule,delayed release(DR/EC) 60 mg PO DAILY Qty: 30 5RF albuterol sulfate 90 mcg/actuation HFA aerosol inhaler 1 - 2 puff INHALATION Q4H PRN PRN (Reason: Dyspnea, wheezing) Qty: 1 6RF fluticasone propion-salmeterol [Wixela Inhub] 500-50 mcg/dose blister with device 1 inh INHALATION BID Qty: 60 6RF Spiriva Respimat 2.5 mcg/actuation mist 2 puff inhalation DAILY Qty: 4 11RF trazodone 150 mg Tablet 150 mg PO QHS ascorbic acid (vitamin C) [Vitamin C] 1,000 mg tablet 1,000 mg PO DAILY lorazepam 1 mg tablet 1 mg PO TID PRN (Reason: Anxiety) Rx Instructions: TAKE 1 TABLET BY MOUTH THREE TIMES A DAY AND 1 TABLET TWICE A DAY NEEDED FOR ANXIETY/RESTLESSNESS (PALLIATIVE CARE) vitamin E (dl, acetate) 45 mg (100 unit) capsule 45 mg PO DAILY cholecalciferol (vitamin D3) [Vitamin D3] 25 mcg (1,000 unit) Capsule 25 mcg PO DAILY Eliquis 5 mg tablet 5 mg PO BID Qty: 180 3RF clopidogrel 75 mg tablet 75 mg PO DAILY Qty: 90 3RF metoprolol tartrate 100 mg tablet 100 mg PO BID Qty: 180 3RF diltiazem HCl 240 mg capsule,extended release 24 hr 240 mg PO DAILY Qty: 90 3RF isosorbide mononitrate 60 mg tablet extended release 24 hr 60 mg PO DAILY Qty: 90 3RF nitroglycerin [Nitrostat] 0.4 mg tablet, sublingual 0.4 mg SUBLINGUAL Q5M PRN (Reason: Chest Pain) Qty: 25 3RF potassium chloride 20 mEq tablet extended release 20 meq PO BID Qty: 180 3RF Farxiga 10 mg tablet See Rx Instructions .ROUTE .COMPLEX Qty: 30 5RF Dose Instruction: TAKE 1 TABLET BY MOUTH DAILY Rx Instructions: TAKE 1 TABLET BY MOUTH DAILY furosemide 40 mg tablet 40 mg PO BID Qty: 60 12RF duloxetine 30 mg capsule,delayed release(DR/EC) 30 mg PO DAILY Qty: 30 5RF pantoprazole 40 mg tablet,delayed release (DR/EC) 40 mg PO DAILY Qty: 90 0RF atorvastatin 40 mg tablet 40 mg PO DAILY Qty: 90 0RF ferrous sulfate 325 mg (65 mg iron) tablet 325 mg PO BID Qty: 60 5RF dicyclomine 10 mg capsule 10 mg PO 4X/DAY Qty: 120 0RF spironolactone 25 mg tablet 25 mg PO DAILY Qty: 30 11RF amiodarone 200 mg tablet 100 mg PO DAILY Qty: 90 3RF levothyroxine [Synthroid] 25 mcg tablet 25 mcg PO DAILY Qty: 30 1RF gabapentin 300 mg capsule See Rx Instructions .ROUTE .COMPLEX Qty: 120 0RF Dose Instruction: TAKE 1 CAPSULE BY MOUTH IN THE MORNING and AFTERNOON. TAKE 2 (TWO) CAPSULES BY MOUTH AT BEDTIME Rx Instructions: TAKE 1 CAPSULE BY MOUTH IN THE MORNING and AFTERNOON. TAKE 2 (TWO) CAPSULES BY MOUTH AT BEDTIME buspirone 10 mg tablet 10 mg PO TID Qty: 90 1RF Primary Care Provider: Opal Ayoub Referrals: Opal Ayoub MD [Primary Care Provider] - As Needed Antonio Hudson MD [Med Staff - Active Staff] - 1 Day Activity Restrictions/Additional Instructions: Please follow-up with cardiology tomorrow. They recommended that you take an extra dose of your amiodarone this evening, for total of 200 mg. they also recommended that you take an extra dose of the amiodarone in the morning for a total of 200 mg. Please return for any worsening of your symptoms. Disposition Disposition: Home, Self Care Discharge Date/Time: 05/15/23 21:12
--- NOTE | 2023-05-15 19:45 | RAD_ITS ---
STUDY: X-RAY CHEST REASON FOR EXAM: Female, 73 years old. palpitations TECHNIQUE: PA and lateral views of the chest. COMPARISON: 04/23/2022 FINDINGS: Left subclavian pacemaker which is unchanged. The lungs are clear and expanded. There is no demonstrated pleural abnormality. There is moderate cardiac enlargement. Normal mediastinum and artis. Normal visualized pulmonary arteries. Normal visualized aortic arch and descending thoracic aorta. Normal visualized thoracic spine. Normal visualized ribs, clavicles, and shoulders. There is no demonstrated abnormality of the visualized soft tissue structures of the upper abdomen. RAD/Chest PA and Lateral IMPRESSION: No active disease. Cardiomegaly. Electronically Signed: Daniel Kimbrough MD at 20:27 EST ,
[2023-05-15 20:10] LABS: Troponin-I HS 19 pg/mL (3.0-54.0)
[2023-05-15 21:08] VITALS: BP 96/54; PULSE 75; RESP 16; TEMP 36.6; O2SAT 99
== END 2023-05-15 21:12 | disposition home or self-care (01) ==
PROVIDERS: Physician Assistant; Emergency Provider Student in an Organized Health Care Education/Training Program; PCP Internal Medicine; Visit Provider Student in an Organized Health Care Education/Training Program
DX: I48.91 Unspecified atrial fibrillation (principal); J44.9 Chronic obstructive pulmonary disease, unspecified; I13.0 Hypertensive heart and chronic kidney disease with heart failure and stage 1 through stage 4 chronic kidney disease, or unspecified chronic kidney disease; I50.43 Acute on chronic combined systolic (congestive) and diastolic (congestive) heart failure; N18.4 Chronic kidney disease, stage 4 (severe); Z87.891 Personal history of nicotine dependence; I25.10 Atherosclerotic heart disease of native coronary artery without angina pectoris; E78.00 Pure hypercholesterolemia, unspecified; I25.2 Old myocardial infarction; Z99.81 Dependence on supplemental oxygen; G47.33 Obstructive sleep apnea (adult) (pediatric); Z95.0 Presence of cardiac pacemaker; F41.8 Other specified anxiety disorders; Z79.01 Long term (current) use of anticoagulants; Z79.02 Long term (current) use of antithrombotics/antiplatelets; Z79.51 Long term (current) use of inhaled steroids; K21.9 Gastro-esophageal reflux disease without esophagitis; Z98.49 Cataract extraction status, unspecified eye; Z95.5 Presence of coronary angioplasty implant and graft
CPT/HCPCS: 71046; 84484; 93005; 99283

== ENCOUNTER → 2023-05-15 | Outpatient (CLI) | payer MEDICARE, MEDICAID, SELFPAY ==
[2019-07-16 09:26] VITALS: BMI 29.5
[2023-05-15 15:38] LABS: Absolute Lymphocyte Count 1.02 X10^3/uL (0.83-4.51); Absolute Neutrophil Count 13.7 X10^3/uL (2.0-7.7); Basophil# 0.05 X10^3/uL; Basophil% 0.3 % (0-1); Eosinophil# 0.11 X10^3/uL; Eosinophils% 0.7 % (0-5); Hematocrit 38.6 % (37-47); Hemoglobin 12.6 g/dL (12.0-15.0); Lymphocyte # 1.02 X10^3/ul (0.83-4.51); Lymphocyte % 6.3 % (19-41); Mean Corp Hgb Conc 32.6 g/dL (32-36); Mean Corpuscular Hgb 29.4 pg (27.0-32.0); Mean Platelet Vol. 10.9 fl (6.2-12.0); Monocyte# 1.09 X10^3/uL; Monocyte% 6.8 % (0-10); NRBC Flagged by Analyzer 0 % (0-5); Neutrophil % 85.3 % (47-70); Platelet Count 283 K/mm3 (150-450); RBC Distribution Width CV 13.2 % (11.6-14.6); RBC Distribution Width SD 42.5 fl (35.1-43.9); Red Blood Count 4.29 M/mm3 (4.2-5.4); White Blood Count 16.1 K/mm3 (4.4-11.0)
[2023-05-15 16:28] LABS: Vitamin B12 531 pg/mL (211-911); Vitamin D,25 Hydroxy 60.9 ng/mL
[2023-05-15 16:43] LABS: AST(SGOT) 12 U/L (15-37); Alanine Aminotransfer ALT/SGPT 14 U/L (13-56); Albumin, Serum 3.8 g/dL (3.2-5.0); Alkaline Phosphatase 126 U/L (45-117); Anion Gap 8 (5-15); BUN 53 mg/dL (7-18); BUN/Creat Ratio 18.1 RATIO (10-20); Calcium,Total 8.7 mg/dL (8.5-10.1); Chloride 99 mmol/L (98-107); Creatinine, Serum 2.93 mg/dL (0.55-1.02); EST Glomerular Filtration Rate 17 mL/min (>60); Est Glom Filt Rate - Afr Amer 20 mL/min (>60); Globulin 3.7 g/dL (2.2-4.2); Glucose 111 mg/dL (74-106); Potassium 4.6 mmol/L (3.5-5.1); Protein, Total 7.5 g/dL (6.4-8.2); Sodium Level 133 mmol/L (136-145); Thyroid Stim Hormone (TSH) 2.36 uIU/mL (0.358-3.74)
== END | disposition home or self-care (01) ==
LOC: BIMLAB 12:42
PROVIDERS: PCP Internal Medicine; Referring Provider Internal Medicine; Visit Provider Internal Medicine
DX: I48.91 Unspecified atrial fibrillation (principal); N18.4 Chronic kidney disease, stage 4 (severe); R41.0 Disorientation, unspecified
CPT/HCPCS: 36415; 80053; 82306; 82607; 84443; 85025

== ENCOUNTER 2023-05-16 18:20 | Inpatient (IN) | payer MEDICARE, SELFPAY ==
[2019-07-16 09:26] VITALS: BMI 29.5
[2023-05-16 18:22] VITALS: BP 96/55; PULSE 71; RESP 16; TEMP 36.6; O2SAT 99; BMI 23.8
--- NOTE | 2023-05-16 18:54 | EDS_ITS ---
HPI History of Present Illness Chief Complaint: Abn Labs Informant: patient Narrative Narrative: Referred back to the ED today by her PCP office due to concerning kidney function from labs yesterday. Creatinine 2.93. Patient baseline creatinine 1.5. Denies recent vomiting diarrhea denies any difficulties with urination. Denies fevers. Denies cough. Seen yesterday due to atrial fibrillation followed by cardiology. She is on Eliquis. Denies recent illness. She does have history of pacemaker with her atrial fibrillation history. PFSH PFS Medical History AAA (abdominal aortic aneurysm) without rupture Acute on chronic combined systolic (congestive) and diastolic (congestive) heart failure Acute on chronic diastolic (congestive) heart failure Acute respiratory failure with hypoxia Acute upper GI bleed Anemia Anxiety and depression Arthritis Atherosclerotic heart disease of [place] coronary artery without angina pectoris Atrial fibrillation with RVR Back contusion Bilateral carotid bruits BiPAP (biphasic positive airway pressure) dependence Cancer Cardiology follow-up encounter Carpal tunnel syndrome, bilateral Chest pain Chronic kidney disease, stage 4 (severe) Claudication in peripheral vascular disease Congestive heart failure (CHF) COPD (chronic obstructive pulmonary disease) COVID-19 (01/01/20) Delirium due to another medical condition Depression Dyspnea on exertion Emphysema of lung Essential (primary) hypertension Former smoker GERD (gastroesophageal reflux disease) High cholesterol History of CHF (congestive heart failure) History of irregular heartbeat History of stress test HLD (hyperlipidemia) Hx of echocardiogram Hypertension Hypokalemia IBS (irritable bowel syndrome) Injury of back Injury of head and neck Kidney disease Melena Multinodular thyroid Nicotine dependence Non-ischemic cardiomyopathy Non-STEMI (non-ST elevated myocardial infarction) (03/19/19) Obesity On home oxygen therapy BELLE (obstructive sleep apnea) Pacemaker PAD (peripheral artery disease) Peripheral vascular occlusive disease Persistent atrial fibrillation Pneumonia due to 2019 novel coronavirus (01/01/20) Post-menopausal Rheumatic fever Rheumatoid arthritis Sepsis (01/01/20) Sinus pause Sleep apnea Smoking greater than 30 pack years Tachy-erica syndrome Unstable angina pectoris due to coronary arteriosclerosis Wears dentures Wears glasses Wheezing Home Medications trazodone 150 mg tablet 150 mg PO QHS sleep 11/24/20 [History Last Taken 12/04/21] calcium carbonate 600 mg-vitamin D3 12.5 mcg (500 unit) capsule (Calcium 600 with Vitamin D3) 1 cap PO DAILY supplement 02/22/21 [History Last Taken 12/05/21] ascorbic acid (vitamin C) 1,000 mg tablet (Vitamin C) 1,000 mg PO DAILY supplement 12/05/21 [History Last Taken 12/04/21] lorazepam 1 mg tablet 1 mg PO TID PRN Anxiety 12/05/21 [History Last Taken 12/05/21] vitamin E (dl, acetate) 45 mg (100 unit) capsule 45 mg PO DAILY supplement 12/05/21 [History Last Taken 12/04/21] apixaban 5 mg tablet (Eliquis) 5 mg PO BID blood thinner #180 tabs 12/26/21 [Rx Last Taken Unknown] cholecalciferol (vitamin D3) 25 mcg (1,000 unit) capsule (Vitamin D3) 25 mcg PO DAILY SUPPLEMENT 04/25/22 [History Last Taken Unknown] clopidogrel 75 mg tablet 75 mg PO DAILY antiplatelet #90 tabs 06/12/22 [Rx Last Taken Unknown] metoprolol tartrate 100 mg tablet 100 mg PO BID BP #180 tabs 06/12/22 [Rx Last Taken Unknown] diltiazem HCl 240 mg capsule,24 hr,extended release 240 mg PO DAILY BP #90 caps 06/21/22 [Rx Last Taken Unknown] isosorbide mononitrate 60 mg tablet,extended release 24 hr 60 mg PO DAILY HEART #90 tabs 06/21/22 [Rx Last Taken Unknown] nitroglycerin 0.4 mg sublingual tablet (Nitrostat) 0.4 mg sublingual Q5M PRN Chest Pain #25 tabs 06/27/22 [Rx Last Taken Unknown] potassium chloride 20 mEq tablet,extended release 20 meq PO BID supplement #180 tabs 08/06/22 [Rx Last Taken Unknown] dapagliflozin propanediol 10 mg tablet (Farxiga) See Rx Instructions .Route .COMPLEX #30 TABLETS 08/20/22 [Rx Last Taken Unknown] furosemide 40 mg tablet 40 mg PO BID diuretic #60 tabs 10/29/22 [Rx Last Taken Unknown] duloxetine 60 mg capsule,delayed release 60 mg PO DAILY mental health #30 caps 11/21/22 [Rx Last Taken Unknown] albuterol sulfate 90 mcg/actuation aerosol inhaler 1 - 2 puff inhalation Q4H PRN PRN Dyspnea, wheezing ##1 01/15/23 [Rx Last Taken Unknown] fluticasone 500 mcg-salmeterol 50 mcg/dose blistr powdr for inhalation (Wixela Inhub) 1 inh inhalation BID breathing #60 ea 01/15/23 [Rx Last Taken Unknown] tiotropium bromide 2.5 mcg/actuation mist for inhalation (Spiriva Respimat) 2 puff inhalation DAILY COPD #4 grams 01/15/23 [Rx Last Taken Unknown] duloxetine 30 mg capsule,delayed release 30 mg PO DAILY mental health #30 caps 03/04/23 [Rx Last Taken Unknown] atorvastatin 40 mg tablet 40 mg PO DAILY cholesterol #90 tabs 03/18/23 [Rx Last Taken Unknown] pantoprazole 40 mg tablet,delayed release 40 mg PO DAILY GERD #90 tabs 03/18/23 [Rx Last Taken Unknown] ferrous sulfate 325 mg (65 mg iron) tablet 325 mg PO BID supplement #60 tabs 03/25/23 [Rx Last Taken Unknown] dicyclomine 10 mg capsule 10 mg PO 4X/DAY ibs #120 caps 04/21/23 [Rx Last Taken Unknown] amiodarone 200 mg tablet 100 mg (1/2 x 200 mg) PO DAILY BP #90 tabs 04/22/23 [Rx Last Taken Unknown] spironolactone 25 mg tablet 25 mg PO DAILY #30 tabs 04/22/23 [Rx Last Taken Unknown] levothyroxine 25 mcg tablet (Synthroid) 25 mcg PO DAILY #30 tabs 04/23/23 [Rx Last Taken Unknown] gabapentin 300 mg capsule See Rx Instructions .Route .COMPLEX #120 caps 04/25/23 [Rx Last Taken Unknown] buspirone 10 mg tablet 10 mg PO TID mental health #90 tabs 05/14/23 [Rx Last Taken Unknown] Allergy/AdvReac Type Severity Reaction Status Date / Time lisinopril Allergy tongue Verified 05/16/23 18:22 swelling Family History Father Heart disease Hypertension Seizures Sister Hypertension Son CVA (cerebral vascular accident) Daughter Cancer stomach Other Family history of hypertension Surgical History Cataract extraction status History of angioplasty of peripheral vessel History of bilateral leg stents History of bunionectomy of right great toe History of cardioversion (07/18/20) History of colonoscopy (06/2018) History of coronary artery stent placement (03/18/19) History of left heart catheterization (11/25/19) History of permanent cardiac pacemaker placement (03/27/20) History of tonsillectomy Hx of APLL Hx of cardiac cath Hx of colonoscopy Hx of hysterectomy S/P AAA repair Status post left foot surgery Social History household members: other details: grandson housing: house 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al status: retired 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: worked 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 long-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 Smoking Status: Former smoker quit date: 04/17/20 pack-years: 20 Electronic Cigarette Use: not used how long ago did patient quit smoking: May 2020 alcohol intake: never substance use type: does not use caffeine: No what type of physical activity do you participate in: none do you feel safe at home: Yes ROS ROS ED Constitutional Constitutional ED: Denies chills, fever(s) or sweats Eyes Eyes: Denies change in vision ENT ENT ED: Denies dysphagia or sore throat Cardiovascular Cardiovascular: Denies chest pain, leg edema, palpitations or racing heartbeat Respiratory/Chest Respiratory/Chest: Denies cough, dyspnea or dyspnea on exertion Gastrointestinal Gastrointestinal: Denies abdominal pain, diarrhea, nausea or vomiting Genitourinary Genitourinary ED: Denies dysuria, hematuria or urinary frequency Musculoskeletal Musculoskeletal: Denies back pain, extremity pain or neck pain Integumentary Denies rash or wounds Neurologic Neurologic: Denies headache(s), paresthesias or weakness EXAM Physical Exam Const Vital Signs: 05/16/23 18:22 05/16/23 19:54 05/16/23 19:54 Temperature 97.9 F Temperature Source Temporal Pulse Rate 71 71 Respiratory Rate 16 16 Respiratory Pattern Normal Blood Pressure 96/55 L 109/61 Blood Pressure Mean 68 77 Pulse Ox 99 96 Oxygen Delivery Method Room Air Room Air 05/16/23 20:59 Temperature 97.9 F Temperature Source Pulse Rate 71 Respiratory Rate 12 Respiratory Pattern Blood Pressure 116/62 Blood Pressure Mean 80 Pulse Ox 95 Oxygen Delivery Method Positive well nourished and well developed General Appearance ED: well developed and NAD HEENT Reports moist mucous membranes normocephalic and atraumatic Eyes PERRL, EOMs intact bilaterally and conjunctivae normal General Eye ED: Yes normal appearance of both eyes Neck no lymphadenopathy and supple General: Negative for tenderness Chest Wall Chest: Negative for tenderness Resp normal respiratory effort and normal air movement Effort and Inspection: symmetric chest movement; Negative for respiratory distr ess Cardio regular rate, regular rhythm and no murmurs Peripheral Pulses: pulses 2+ throughout GI normal to inspection, nondistended, normoactive bowel sounds and non-tender Palpation: Negative for guarding or rebound tenderness present Back/Spine no CVA tenderness and no thoracic nor lumbar tenderness Extremity normal to inspection General Extremety ED: Negative for edema or tenderness General Extremity: Negative for edema Neuro oriented x3 and no sensory deficits noted Sensorium / Orientation: awake and alert Skin no rashes or lesions noted and no wounds MDM MDM MDM Narrative Medical decision making narrative: Interventions / MDM: Differential diagnosis: Kidney injury, electrolyte abnormalities Diagnosis considered but do not suspect: No clinical obstructive SAM. My EKG interpretation: Sinus first-degree AV block rate of 73. No ST changes. T wave inversions lateral leads. Similar T wave inversions from a month ago. Imaging independently reviewed and interpreted by myself: N/A External documents reviewed: Reviewed labs creatinine typically around 1.5 a month ago had elevation 10 days ago, 2.93 yesterday. Test considered but not ordered:N/A ED course: Patient nontoxic vital stable clinically not dehydrated. No recent vomiting or diarrhea. She is urinary without any difficulties. Labs reordered check 500 cc normal saline urine ordered. EKG is sinus rhythm. 2010: Lab results worsening SAM creatinine 3.04. Normal potassium 4.9. GFR is 16. She states she previously seen nephrology in [place] however due to distance, stopped seeing them. Will discuss with hospital service for admission. Discussed with hospitalist for admission. Re-evaluation: stable Disposition discussed with patient/family/significant other: Patient Case discussed with consulting clinician: Hospitalist This note was generated with [employer] dictation software. It may contain incorrect words, spelling, and punctuation that were not noted in checking the note before signing. Lab Data Attestation: I reviewed the patient's lab results. Labs: Laboratory Results - last 24 hr 05/16/23 05/16/23 19:40 20:15 WBC 7.4 RBC 3.81 L Hgb 11.3 L Hct 34.2 L MCV 89.8 MCH 29.7 MCHC 33.0 RDW Std Deviation 42.5 RDW Coeff of Natalie 13.1 Plt Count 219 MPV 10.2 Immature Gran % (Auto) 0.400 Neut % (Auto) 74.0 H Lymph % (Auto) 11.7 L [place] % (Auto) 8.2 Eos % (Auto) 5.4 H Baso % (Auto) 0.3 Absolute Neuts (auto) 5.4 Absolute Lymphs (auto) 0.86 Nucleated RBC % 0 Sodium 134 L Potassium 4.9 Chloride 102 Carbon Dioxide 29.0 Anion Gap 3 L BUN 61 H Creatinine 3.04 H Estim Creat Clear Calc 12.84 Est GFR (MDRD) Af Amer 19 L Est GFR (MDRD) Non-Af 16 L BUN/Creatinine Ratio 20.1 H Glucose 101 Calcium 9.1 Urine Color Yellow Urine Clarity Clear Urine pH 6.0 Ur Specific [place] 1.010 Urine Protein Negative Urine Glucose (UA) Normal Urine Ketones Negative Urine Occult Blood Negative Urine Nitrite Negative Urine Bilirubin Negative Urine Urobilinogen Normal Ur Leukocyte Esterase 500 H Urine RBC 0 SEEN Urine WBC 0-5 SEEN Ur Squamous Epith Cells 0-5 SEEN Urine Bacteria RARE Urine Mucus 0 SEEN Discharge Plan Dx/Rx/DC Orders Clinical Impression: SAM (acute kidney injury), Chronic anticoagulation, Paroxysmal A-fib Disposition Disposition: [facility] Discharge Date/Time: 05/16/23 21:35
--- NOTE | 2023-05-16 18:59 | EKG12_ITS ---
Test Reason : AFIB Blood Pressure : / mmHG Vent. Rate : 071 BPM Atrial Rate : 071 BPM P-R Int : 282 ms QRS Dur : 118 ms QT Int : 380 ms P-R-T Axes : 103 -02 220 degrees QTc Int : 412 ms ATRIAL TACHYCARDIA WITH 2:1 BLOCK Left ventricular hypertrophy with QRS widening and repolarization abnormality ( Coy product ) Abnormal ECG Confirmed by MARTIN JEAN-BAPTISTE, GABO ([id number]), features editor KANDY GARDINER ([id number]) on 05/19/2023 9:53:07 AM Referred By: TIMBO Confirmed By:TITA SALAZAR MD
--- OUTSIDE RECORDS SUMMARY | 2023-05-16 19:32 | XMS RPT_ITS | CCD ---
Author Name Unknown Address [address] [place] [address] Organization [facility] Care Team Providers Care French Edge Operator Name Role Phone Abigail JEAN-BAPTISTE, Cathi Hinojosa Primary Care Provider Abigail JEAN-BAPTISTE, Cathi Hinojosa Primary Care Provider Ector Jewell MD(Historical) Primary Care Provi mariya Unavailable Anitra JEAN-BAPTISTE, Alexandre Yeager Primary Care Provider Keith JEAN-BAPTISTE, Lana Unavailable Alexandre Ayoub MD Primary Care Provider [phone] Keith JEAN-BAPTISTE, Lana Unavailable Kamila, Vadito Unavailable Zack Tobar Unavailable KEITH, LANA Attending Unavailable ANITRA, ALEXANDRE Primary Care Unavailable ANITRA, ALEXANDRE Primary Care Unavailable KEITH, LANA Admitting Unavailable KEITH, LANA Attending Unavailable ANITRA, ALEXANDRE Primary Care Unavailable ECTOR WHITING Referring Unavailable ANITRA, ALEXANDRE Primary Care Unavailable ECTOR WHITING Admitting Unavailable ECTOR WHITING Attending Unavailable KEITH, LANA Attending Unavailable ANITRA, ALEXANDRE Primary Care Unavailable MARIBEL MENG Referring Unavailable ANITRA, ALEXANDRE Primary Care Unavailable KEITH, LANA Attending Unavailable KEITH, LANA Referring Unavailable ANITRA, ALEXANDRE Primary Care Unavailable KEITH, LANA Attending Unavailable ANITRA, ALEXANDRE Primary Care Unavailable Anitra JEAN-BAPTISTE, Alexandre Yeager Primary Care Provider Keith JEAN-BAPTISTE, Lana Unavailable Kamila, Vadito Unavailable Zack Tobar Unavailable Allergies Allergy Classification Reported Allergen(s) Allergy Type Date of Onset Reaction(s) Facility (6 sources) Lisinopril Drug Allergy 0 Other: See Comments [facility] (13 sources) Lisinopril Allergy to substance 0 [facility] Medications Current Medications Medication Drug Class(es) Dates Sig (Normalized) Sig (Original) acetaminophen 325 mg / oxyCODONE hydrochloride 5 mg oral tablet (2 sources) Opioid Agonist Start: 07-09-2022 End: 07-14-2022 take 1 tablet by mouth every six hours as needed for pain oxyCODONE-acetaminop hen (Percocet) 5-325 MG tablet Indications: Infrarenal abdominal aortic aneurysm (AAA) without rupture (HCC) Take 1 tablet by mouth every 6 hours as needed for severe pain (7-10) for up to 5 days. 20 tablet 0 07/09/2022 07/14/2022 Active aspirin 81 mg chewable tablet (5 sources) Platelet Aggregation Inhibitor, Nonsteroidal Anti-inflammatory Drug Start: 07-05-2022 End: 08-10-2022 aspirin 81 MG chewable tablet Chew 1 tablet (81 mg) daily. Do not start before July 11, 2022. 30 tablet 0 07/11/2022 08/10/2022 Active cholecalciferol 0.025 mg oral capsule (19 sources) Vitamin D take 1 capsule by mouth in the morning cholecalciferol (Vitamin D-3) 25 MCG (1000 UT) capsule Take 1,200 Units by mouth in the morning. 0 Active Completed/Discontinued Medications Medication Drug Class(es) Dates Sig (Normalized) Sig (Original) Acetaminophen (20 sources) Start: 05-07-2023 End: 05-07-2023 take 1 tablet by mouth every six hours as needed for pain and fever acetaminophen (Tylenol) tablet 650 mg Problems Active Problems Problem Classification Problem Date Documented Date Episodic/Chronic Anxiety disorders (13 sources) Anxiety; Translations: [Anxiety disorder, unspecified] Onset: 01-31-2022 05-23-2022 Chronic Aortic; peripheral; and visceral artery aneurysms (20 sources) Abdominal aortic aneurysm without rupture; Translations: [Abdominal aortic aneurysm, without rupture] Onset: 09-14-2019 09-14-2019 Chronic Cardiac dysrhythmias (19 sources) Atrial fibrillation; Translations: [Unspecified atrial fibrillation] Onset: 07-16-2011 07-16-2011 Chronic Chronic kidney disease (13 sources) Chronic kidney disease stage 4; Translations: [Chronic kidney disease, stage 4 (severe)] Onset: 01-31-2022 05-23-2022 Chronic Chronic obstructive pulmonary disease and bronchiectasis (13 sources) Chronic obstructive lung disease; Translations: [Chronic obstructive pulmonary disease, unspecified] Onset: 06-25-2021 05-23-2022 Chronic Complication of device; implant or graft (8 sources) Breakdown (mechanical) of aortic (bifurcation) graft (replacement), initial encounter; Translations: [Mechanical complication of other vascular device, implant, and graft] Onset: 05-07-2023 Episodic Coronary atherosclerosis and other heart disease (20 sources) History of myocardial infarction; Translations: [Old myocardial infarction] Onset: 08-15-2011 08-15-2011 Chronic Disorders of lipid metabolism (20 sources) Dyslipidemia; Translations: [Hyperlipidemia, unspecified] Onset: 08-31-2014 08-31-2014 Chronic Esophageal disorders (19 sources) Gastroesophageal reflux disease; Translations: [Gastro-esophageal reflux disease without esophagitis] Onset: 05-23-2022 01-29-2017 Chronic Essential hypertension (6 sources) Hypertensive disorder; Translations: [Essential (primary) hypertension] 07-16-2011 Chronic Other hereditary and degenerative nervous system conditions (19 sources) Restless legs; Translations: [Restless legs syndrome] Onset: 07-16-2011 07-16-2011 Chronic Other nervous system disorders (19 sources) Chronic pain; Translations: [Other chronic pain] Onset: 01-15-2013 01-15-2013 Chronic Other screening for suspected conditions (not mental disorders or infectious disease) (1 source) Patient encounter status; Translations: [Encounter for screening mammogram for malignant neoplasm of breast] Episodic Peripheral and visceral atherosclerosis (19 sources) Peripheral vascular disease, unspecified; Translations: [Peripheral vascular disease, unspecified] Onset: 08-13-2011 08-13-2011 Chronic Residual codes; unclassified (6 sources) Sleep apnea; Translations: [Sleep apnea, unspecified] 06-25-2019 Chronic Residual codes; unclassified (13 sources) Obstructive sleep apnea syndrome; Translations: [Obstructive sleep apnea (adult) (pediatric)] Onset: 06-25-2021 05-23-2022 Chronic Residual codes; unclassified (2 sources) History of cardiovascular surgery; Translations: [Other specified postprocedural states] Episodic Spondylosis; intervertebral disc disorders; other back problems (19 sources) Degeneration of lumbar intervertebral disc; Translations: [...] 05-08-2012 05-08-2012 Episodic Deficiency and other anemia (13 sources) Anemia; Translations: [Anemia, unspecified] Onset: 05-25-2021 05-23-2022 Episodic Malaise and fatigue (13 sources) Fatigue; Translations: [Other fatigue] Onset: 05-23-2022 05-23-2022 Episodic Other circulatory disease (2 sources) Personal history of other diseases of the circulatory system; Translations: [Personal history of other diseases of the circulatory system] Onset: 07-24-2022 Episodic Other connective tissue disease (6 sources) Recurrent falls ; Translations: [Repeated falls] Onset: 12-31-2017 12-31-2017 Episodic Other gastrointestinal disorders (13 sources) Splenomegaly; Translations: [Splenomegaly, not elsewhere classified] Onset: 05-23-2022 05-23-2022 Episodic Other liver diseases (13 sources) Raised cardiac enzyme or marker; Translations: [Abnormal levels of other serum enzymes] Onset: 05-23-2022 05-23-2022 Episodic Other nervous system disorders (6 sources) Abnormal gait; Translations: [Unspecified abnormalities of gait and mobility] Onset: 05-16-2020 05-16-2020 Episodic Residual codes; unclassified (6 sources) Tobacco user; Translations: [Tobacco use] Onset: 08-31-2014 08-31-2014 Episodic Residual codes; unclassified (13 sources) Delirium; Translations: [Disorientation, unspecified] Onset: 05-23-2022 05-23-2022 Episodic Residual codes; unclassified (2 sources) Other specified postprocedural states; Translations: [Other specified postprocedural states] Onset: 07-24-2022 Episodic Spondylosis; intervertebral disc disorders; other back problems (12 sources) Lumbar radiculopathy; Translations: [Radiculopathy, lumbar region] Onset: 01-15-2013 01-15-2013 Episodic Unclassified (1 source) Infrarenal abdominal aortic aneurysm, without rupture (HCC); Translations: [Infrarenal abdominal aortic aneurysm, without rupture (HCC)] Onset: 07-05-2022 Viral infection (13 sources) Herpes zoster; Translations: [Zoster without complications] Onset: 05-23-2022 05-23-2022 Episodic Results Test Name Value Interpretation Reference Range Facil ity Vital Signs Date Time Vital Sign Value Performing Clinician Faci lity 05-07-2023 15:38-0500 Body temperature 97.5 [degF] Kanwal Nuñez Work Phone: [facility] 05-07-2023 15:38-0500 Diastolic blood pressure 66 mm[Hg] Kanwal Durbin MD Work Phone: [facility] 05-07-2023 15:38-0500 Heart rate 82 /min Kanwal Nuñez Work Phone: [facility] 05-07-2023 15:38-0500 Respiratory rate 16 /min Kanwal Nuñez Work Phone: [facility] 05-07-2023 15:38-0500 SaO2% (BldA) [Mass fraction] 93 % Kanwal Durbin MD Work Phone: [facility] 05-07-2023 15:38-0500 Systolic blood pressure 151 mm[Hg] Kanwal Durbin MD Work Phone: [facility] 05-07-2023 03:10-0500 Body height 157.5 cm Kanwal Nuñez Work Phone: [facility] 05-07-2023 03:10-0500 Body mass index (BMI) [Ratio] 25.05 kg/m2 Kanwal Durbin MD Work Phone: [facility] 05-07-2023 03:10-0500 Body weight 62.14 kg Kanwal Nuñez Work Phone: [facility] 08-19-2022 09:43-0400 Body temperature 96.91 [degF] Lana Parker MD Work Phone: [facility] 08-19-2022 09:43-0400 Diastolic blood pressure 73 mm[Hg] Lana Parker MD Work Phone: [facility] 08-19-2022 09:43-0400 Heart rate 74 /min Lana Parker MD Work Phone: [facility] 08-19-2022 09:43-0400 Systolic blood pressure 132 mm[Hg] Lana Parker MD Work Phone: [facility] 07-24-2022 13:46-0400 Body temperature 97.3 [degF] Lana Parker MD Work Phone: [facility] 07-24-2022 13:46-0400 Diastolic blood pressure 67 mm[Hg] Lana Parker MD Work Phone: [facility] 07-24-2022 13:46-0400 Heart rate 61 /min Lana Parker MD Work Phone: [facility] 07-24-2022 13:46-0400 Systolic blood pressure 132 mm[Hg] Lana Parker MD Work Phone: [facility] 07-10-2022 11:06-0400 Body temperature 97.81 [degF] Lana Parker MD Work Phone: [facility] 07-10-2022 11:06-0400 Diastolic blood pressure 48 mm[Hg] Lana Parker MD Work Phone: [facility] 07-10-2022 11:06-0400 Heart rate 61 /min Lana Parker MD Work Phone: [facility] 07-10-2022 11:06-0400 Respiratory rate 18 /min Lana Parker MD Work Phone: [facility] 07-10-2022 11:06-0400 SaO2% (BldA) [Mass fraction] 96 % Lana Parker MD Work Phone: [facility] 07-10-2022 11:06-0400 Systolic blood pressure 130 mm[Hg] Lana Parker MD Work Phone: [facility] 07-09-2022 09:22-0400 SaO2% (BldA) [Mass fraction] 88.5 % Lana Parker MD Work Phone: [facility] 07-07-2022 10:40-0400 Body height 152.4 cm Lana Parker MD Work Phone: [facility] 05-27-2022 09:04-0400 Body temperature 96.91 [degF] Lana Parker MD Work Phone: [facility] 05-27-2022 09:04-0400 Body weight 59.42 kg Lana Parker MD Work Phone: [facility] 05-27-2022 09:04-0400 Diastolic blood pressure 80 mm[Hg] Lana Parker MD Work Phone: [facility] 05-27-2022 09:04-0400 Systolic blood pressure 132 mm[Hg] Lana Parker MD Work Phone: [facility] Encounters Encounter Date Encounter Type Care Provider Facility Start: 05-07-2023 End: 05-07-2023 [facility] Start: 05-06-2023 End: 05-07-2023 Evaluation and management of inpatient Kanwal Durbin MD Work Phone: [facility] Procedures Date Procedure Procedure Detail Performing Clinician Start: 05-07-2023 Glucose quantitative blood xcpt reagent strip Ector Whiting MD Work Phone: Start: 05-07-2023 Basic metabolic pane l calcium total Raji Ontiveros MD Work Phone: Start: 05-07-2023 Antibody screen RICHY PARKER Plan of Treatment Date Care Activity Detail Author Start: 11-25-2030 Screening for malign ant neoplasm of colon [facility] Start: 03-05-2028 Urine microalbumin profile DTAP,TDAP,TD (3 - Td or Tdap) [facility] Start: 11-25-2025 Colonoscopy COLONOSCOPY [facility] Start: 11-25-2025 COLORECTAL CANCER SCREENING COLORECTAL CANCER SCREENING [facility] Start: 12-27-2024 LIPID SCREEN LIPID SCREEN [facility] Start: 11-22-2023 DIABETES SCREEN DIABETES SCREEN [facility] Start: 07-11-2023 Creatinine measurement Creatinine [facility] Start: 07-11-2023 Potassium measurement Potassium Leve l [facility] Start: 07-10-2023 Diabetes mellitus screening Diabetes Screening [facility] Start: 06-27-2023 Creatinine measurement Creatinine [facility] Start: 06-27-2023 Potassium measurement Potassium Leve l [facility] Start: 02-18-2023 End: 08-20-2023 Creatinine [Mass/volume] in Serum or Plasma Creatinine, Serum Lab Routine Status post endovascular aneurysm repair (EVAR) Pre-procedure lab exam Expected: 02/18/2023 (Approximate), Expires: 08/20/2023 [facility] Immunizations Immunization Date Immunization Notes Care Provider Fa cility 01-03-2021 influenza virus vacc ine, unspecified formulation Lana Parker MD Work Phone: [facility] 09-22-2020 zoster vaccine recombinant Aminata Barrera INSULATION HELPER.[employer] Work Phone: [facility] Work Phone: 07-20-2020 COVID-19 vaccine, fu ll dose (MODERNA) Aminata Barrera INSULATION HELPER.[employer] Work Phone: [facility] Work Phone: 06-22-2020 COVID-19 vaccine, fu ll dose (MODERNA) Aminata Podlogar INSULATION HELPER.[facility] Work Phone: [facility] Work Phone: 05-17-2020 zoster vaccine recombinant Aminata Podlogar INSULATION HELPER.[facility] Work Phone: [facility] Work Phone: 04-26-2019 influenza, high dose seasonal, preservative-free Aminata Podlogar INSULATION HELPER.[facility] Work Phone: [facility] 03-05-2018 tetanus and diphther ia toxoids, adsorbed, preservative free, for adult use (5 Lf of tetanus toxoid and 2 Lf of diphtheria toxoid) Aminata Podlogar INSULATION HELPER.[facility] Work Phone: [facility] 12-08-2017 influenza, high dose seasonal, preservative-free Aminata Podlogar INSULATION HELPER.[facility] Work Phone: [facility] 09-05-2017 pneumococcal polysaccharide vaccine, 23 valent Aminata Podlogar INSULATION HELPER.[facility] Work Phone: [facility] 01-29-2017 influenza, high dose seasonal, preservative-free Aminata Podlogar INSULATION HELPER.[facility] Work Phone: [facility] 01-29-2017 pneumococcal conjuga te vaccine, 13 valent Aminata Podlogar INSULATION HELPER.[facility] Work Phone: [facility] 12-15-2013 influenza, injectabl e, quadrivalent, contains preservative Aminata Podlogar INSULATION HELPER.[facility] Work Phone: [facility] 08-31-2011 pneumococcal polysaccharide vaccine, 23 valent Aminata Podlogar INSULATION HELPER.[facility] Work Phone: [facility] Payers Date Payer Category Payer Medicare [id number] 2022 Medicare [id number] 2020 Unknown [employer]THEM [employer] AND BLUE [facility] [id number] 2020-Present [phone] [address] [place] [address] [facility] [id number] 2014 Medicaid MEDICAID [facility] MEDICAID [id number] 2014-Present [phone] [address] [place] [address] Medicaid [id number] Social History Date Type Detail Facility Start: 04-28-2017 End: 06-26-2022 Tobacco smoking status NHIS Ex-smoker [facility] End: 03-17-2020 History of tobacco use Current smoker [facility] End: 03-17-2020 History of tobacco use Cigarette Smoker [facility] Start: 04-28-2017 End: 06-26-2022 Tobacco use and exposure Smokeless tobacco non-user [facility] Start: 11-20-2020 End: 12-27-2020 Alcohol intake Current non-drinker of alcohol (finding) [facility] Start: 09-14-2020 History SDOH Alcohol Frequency 1 [facility] Start: 09-14-2020 History SDOH Alcohol Std Drinks 98 [facility] Start: 09-14-2020 History SDOH Social Connections Phone 2 [facility] Start: 09-14-2020 History SDOH Social Connections Get Together 3 [facility] Start: 09-14-2020 History SDOH Social Connections Living 5 [facility] Start: 09-14-2020 Education 10 [facility] Start: 09-07-2020 Tobacco Comment <5 per day, pt reported starting 04/2019 [facility] Start: 1950 Sex Assigned At Female C [facility] Start: 06-18-2021 End: 08-19-2022 Exposure to SARS-CoV-2 (event) Not sure [facility] Start: 11-09-2014 Tobacco Comment <5 [facility] day [facility] Start: 05-27-2022 Alcohol intake Lifetime non-d rashard (finding) [facility] Start: 1950 Sex Assigned At Not on file S [facility] Start: 06-26-2022 End: 08-19-2022 Cigarettes smoked current (pack per day) - Reported 0.5 [facility] Start: 06-26-2022 End: 08-19-2022 Alcohol intake Ex-drinker (finding) [facility] Start: 06-26-2022 Alcohol Comment former social drinker; none for years [facility] Start: 08-19-2022 Tobacco use panel [facility] Medical Equipment Procedure Code Equipment Code Equipment Origin al Text Equipment Identifier Dates Stent Carlos 10mm 7 fr 25mm 135cm - [id number] Start: 07-05-2022 Tm Abdominal Raul nt Graft System [id number] Start: 07-05-2022 Clinical Notes 12-06-2015 to 05-07-2023 Jane Coates RN - 05/07/2023 5:11 PM Pieter Coates RN - 05/07/2023 5:11 PM Pieter Coates RN - 05/07/2023 9:24 AM Nellie Wagner MD - 05/07/2023 4:24 PM ESTDischarge Instructions Note Date & Type Note Facility 05-07-2023 Note [facility] Vascular Surgery Discharge Summary Name: Kathy Puri Age: (73 y.o.) INPATIENT HOSPITAL SUMMARY: Admission Date: 05/06/2023 10:32 PM Admission Diagnosis: Stable Aneurysm Sac Surgery/Intervention: None Consults: None Discharge Date: 05/07/2023 Discharge Diagnosis: Stable Aneurysm Sac 5.2 cm The patient was admitted for further workup and observation. She was noted to have a stable aneurysm sac that has been unchanged since prior CT scan. She has a prior EVAR history with endologix ovation graft with Palmaz stent placement. Abdomen exam was unremarkable and without evidence of pulsatile mass. The patient's hospital course was uncomplicated and consisted of observation and a return to normal oral intake without abdominal pain. The patient was discharged tolerating a diet, moving bowels, and urinating without difficulty. The patient was discharged in satisfactory condition with instructions to call the office for a follow up appointment as needed. Per nursing medication reconciliation, patient is now taking cardizem, farxiga and aldactone as prescribed by outside provider, and she is no longer taking Norvasc. No new medications have been prescribed on this admission nor on discharge from vascular perspective. Patient declined home-going pain medications. 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) Discharge Medications: Medication List CONTINUE taking these medications acetaminophen 500 MG tablet Commonly known as: Tylenol albuterol 108 (90 Base) MCG/ACT inhaler amiodarone 200 MG tablet Commonly known as: Pacerone ascorbic acid 500 MG tablet Commonly known as: Vitamin C atorvastatin 40 MG tablet Commonly known as: Lipitor busPIRone 10 MG tablet Commonly known as: Buspar cholecalciferol 25 MCG (1000 UT) capsule Commonly known as: Vitamin D-3 clopidogrel 75 MG tablet Commonly known as: Plavix dicyclomine 10 MG capsule Commonly known as: Bentyl dilTIAZem HCl ER 240 MG tablet sustained-release 24 hour DULoxetine [address] capsule Commonly known as: Cymbalta Eliquis 5 MG tablet Generic drug: apixaban Farxiga 10 MG tablet Generic drug: dapagliflozin ferrous sulfate 325 (65 Fe) MG tablet Fluticasone-Salmeterol 500-50 MCG/ACT aerosol powder furosemide 40 MG tablet Commonly known as: Lasix gabapentin 300 MG capsule Commonly known as: Neurontin isosorbide mononitrate ER 60 MG 24 hr tablet Commonly known as: Imdur levothyroxine 25 MCG tablet Commonly known as: Synthroid, Levoxyl LORazepam 1 MG tablet Commonly known as: Ativan metoprolol tartrate 100 MG tablet Commonly known as: Lopressor MULTIVITAMIN ADULT PO nitroglycerin 0.4 MG SL tablet Commonly known as: Nitrostat pantoprazole 40 MG EC tablet Commonly known as: ProtoNix spironolactone 25 MG tablet Commonly known as: Aldactone tiotropium 18 MCG inhalation capsule Commonly known as: Spiriva traZODone 150 MG tablet Commonly known as: Desyrel Vitamin E 100 units tablet zinc gluconate 50 MG tablet STOP taking these medications amLODIPine 2.5 MG tablet Commonly known as: Norvasc lidocaine 5 % patch Commonly known as: Lidoderm potassium chloride CR 20 MEQ ER tablet Commonly known as: K-Tab Is the patient discharged on an antiplatelet or anticoagulant medication? Yes - Eliquis and Plavix Is the patient discharged on a statin? Yes If yes, which one? Atorvastatin If not, why? N/A Discharge Pulse Exam: Pulse Examination Right Left Carotid was not needed. was not needed. Axillary was not needed. was not needed. Brachial was not needed. was not needed. Radial was not needed. was not needed. Femoral was not needed. was not needed. Popliteal was not needed. was not needed. Dorsalis Pedis No Signal Doppler Posterior Tibial Doppler Doppler Note: Please fill in as necessary, if selections are not made then the chart will appear blank upon closing the note. Papo Wagner MD General Surgery PGY-1 Pager [phone] [facility] 05-07-2023 Nurse Note Tele and IV discontinued. Patient educated on meds and discharge instructions. States she understands. Has all belongings in hand. [facility] 05-07-2023 Nurse Note Tele and IV discontinued. Patient educated on meds and discharge instructions. States she understands. Has all belongings in hand. Walked into pt room at 0915 and wrong breakfast tray was sitting on bedside table. Pt has already eaten everything. MD Wagner and dietary notified. Pt was informed this morning she was NPO today and she ate the tray anyway. documented in this encounter [facility] 05-07-2023 Hospital course Narrative [facility] Vascular Surgery Discharge Summary Name: Kathy Puri Age: (73 y.o.) INPATIENT HOSPITAL SUMMARY: Admission Date: 05/06/2023 10:32 PM Admission Diagnosis: Stable Aneurysm Sac Surgery/Intervention: None Consults: None Discharge Date: 05/07/2023 Discharge Diagnosis: Stable Aneurysm Sac 5.2 cm The patient was admitted for further workup and observation. She was noted to have a stable aneurysm sac that has been unchanged since prior CT scan. She has a prior EVAR history with endologix ovation graft with Palmaz stent placement. Abdomen exam was unremarkable and without evidence of pulsatile mass. The patient's hospital course was uncomplicated and consisted of observation and a return to normal oral intake without abdominal pain. The patient was discharged tolerating a diet, moving bowels, and urinating without difficulty. The patient was discharged in satisfactory condition with instructions to call the office for a follow up appointment as needed. Per nursing medication reconciliation, patient is now taking cardizem, farxiga and aldactone as prescribed by outside provider, and she is no longer taking Norvasc. No new medications have been prescribed on this admission nor on discharge from vascular perspective. Patient declined home-going pain medications. 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) Discharge Medications: Medication List CONTINUE taking these medications acetaminophen 500 MG tablet Commonly known as: Tylenol albuterol 108 (90 Base) MCG/ACT inhaler amiodarone 200 MG tablet Commonly known as: Pacerone ascorbic acid 500 MG tablet Commonly known as: Vitamin C atorvastatin 40 MG tablet Commonly known as: Lipitor busPIRone 10 MG tablet Commonly known as: Buspar cholecalciferol 25 MCG (1000 UT) capsule Commonly known as: Vitamin D-3 clopidogrel 75 MG tablet Commonly known as: Plavix dicyclomine 10 MG capsule Commonly known as: Bentyl dilTIAZem HCl ER 240 MG tablet sustained-release 24 hour DULoxetine [address] capsule Commonly known as: Cymbalta Eliquis 5 MG tablet Generic drug: apixaban Farxiga 10 MG tablet Generic drug: dapagliflozin ferrous sulfate 325 (65 Fe) MG tablet Fluticasone-Salmeterol 500-50 MCG/ACT aerosol powder furosemide 40 MG tablet Commonly known as: Lasix gabapentin 300 MG capsule Commonly known as: Neurontin isosorbide mononitrate ER 60 MG 24 hr tablet Commonly known as: Imdur levothyroxine 25 MCG tablet Commonly known as: Synthroid, Levoxyl LORazepam 1 MG tablet Commonly known as: Ativan metoprolol tartrate 100 MG tablet Commonly known as: Lopressor MULTIVITAMIN ADULT PO nitroglycerin 0.4 MG SL tablet Commonly known as: Nitrostat pantoprazole 40 MG EC tablet Commonly known as: ProtoNix spironolactone 25 MG tablet Commonly known as: Aldactone tiotropium 18 MCG inhalation capsule Commonly known as: Spiriva traZODone 150 MG tablet Commonly known as: Desyrel Vitamin E 100 units tablet zinc gluconate 50 MG tablet STOP taking these medications amLODIPine 2.5 MG tablet Commonly known as: Norvasc lidocaine 5 % patch Commonly known as: Lidoderm potassium chloride CR 20 MEQ ER tablet Commonly known as: K-Tab Is the patient discharged on an antiplatelet or anticoagulant medication? Yes - Eliquis and Plavix Is the patient discharged on a statin? Yes If yes, which one? Atorvastatin If not, why? N/A Discharge Pulse Exam: Pulse Examination Right Left Carotid was not needed. was not needed. Axillary was not needed. was not needed. Brachial was not needed. was not needed. Radial was not needed. was not needed. Femoral was not needed. was not needed. Popliteal was not needed. was not needed. Dorsalis Pedis No Signal Doppler Posterior Tibial Doppler Doppler Note: Please fill in as necessary, if selections are not made then the chart will appear blank upon closing the note. Papo Wagner MD General Surgery PGY-1 Pager [phone] documented in this encounter [facility] 05-07-2023 Hospital Discharge instructions Papo Wagner MD - 05/07/2023 4:22 PM EST Images from the original note were not included. Discharge Instructions Call your surgeon in 1 to 2 days to schedule a follow-up appointment in 1-2 weeks to discuss how you're doing after this admission. OK for diet as tolerated, we recommend taking it slow and starting with soft foods, if you get nauseated try only clear liquids for a few hours. OK to shower today. OK for activity as tolerated. Resume your previous level of activity. Constipation is very common with opiate (oxycodone, norco, hydrocodone, percocet) medications, you may take an over the counter stool softener while on narcotics for constipation as needed (colace, miralax, etc). Call your Physician or return to the Emergency Room if you experience: -New or increased pain. -New or increased bleeding. -Nausea & vomiting. -Fever & chills. -Shortness of breath. -Chest pain. -Abdominal distention. documented in this encounter [facility] 05-07-2023 Note Formatting of this n ote might be different from the original. Care Managment Initial Assessment Date: 05/07/2023 Patient Name: Kathy Puri : 1950 Patient Information Source of Information: Patient Cognition/Language: WFL - Within Functional Limits Permission given to speak with patient counter sales representative/caregiver as indicated: Yes Confirmation of Payer with patient/family: Yes Payer Name: [facility] Medicare : No Confirmation of Primary Care Physician: [...] floor Facility: Facility Name: Plan to Return: Yes Lives with: Extended family members (Grandson) Support Systems: Children, Parent, Family members Activities of Daily Living Ambulation: Independent Bathing/Dressing: Independent Elimination/Continence/Toileting: Independent Feeding: Independent Who Assists with Activities of Daily Living: Instrumental Activities of Daily Living Prescription Coverage: Yes Pharmacy Used: [facility] Medication Management: Prescription pick-up Transportation/Shopping: Assistance Provider Transportation/Shopping Assistance Provider Name: Family Transportation Mode: Car Needs Assistance with Transportation at Discharge: No Meal Preparation: Independent Laundry/Cleaning: Independent Finances/Bill Paying: Independent Communication: Independent Types of Care Services/Equipment Utilized Care Services: Dialysis Type: NA Durable Medical Equipment: Walker, Bedside Commode, Other (Comment) (Pill Box filled weekly.) Patient's Goal/Discharge Plan Patient expects to be discharged to: Home Discharge Planning Actions: Continue to follow Patient's Choice Rights and [employer] and Collaborative Relationships Disclosed as Indicated for Post-Acute Care: Interdisciplinary Team Engagement: Social Work Referral for: Additional Information: Patient admitted to with concern for endoleak. Vascular Surgery consulted. Discharge plan TBD at this time. Nela Vera RN [facility] 05-07-2023 Note Formatting of this n ote might be different from the original. Care Managment Initial Assessment Date: 05/07/2023 Patient Name: Kathy Puri : 1950 Patient Information Source of Information: Patient Cognition/Language: WFL - Within Functional Limits Permission given to speak with patient counter sales representative/caregiver as indicated: Yes Confirmation of Payer with patient/family: Yes Payer Name: [employer] Medicare : No Confirmation of Primary Care Physician: [...] floor Facility: Facility Name: Plan to Return: Yes Lives with: Extended family members (Grandson) Support Systems: Children, Parent, Family members Activities of Daily Living Ambulation: Independent Bathing/Dressing: Independent Elimination/Continence/Toileting: Independent Feeding: Independent Who Assists with Activities of Daily Living: Instrumental Activities of Daily Living Prescription Coverage: Yes Pharmacy Used: [facility] Medication Management: Prescription pick-up Transportation/Shopping: Assistance Provider Transportation/Shopping Assistance Provider Name: Family Transportation Mode: Car Needs Assistance with Transportation at Discharge: No Meal Preparation: Independent Laundry/Cleaning: Independent Finances/Bill Paying: Independent Communication: Independent Types of Care Services/Equipment Utilized Care Services: Dialysis Type: NA Durable Medical Equipment: Walker, Bedside Commode, Other (Comment) (Pill Box filled weekly.) Patient's Goal/Discharge Plan Patient expects to be discharged to: Home Discharge Planning Actions: Continue to follow Patient's Choice Rights and [employer] and Collaborative Relationships Disclosed as Indicated for Post-Acute Care: Interdisciplinary Team Engagement: Social Work Referral for: Additional Information: Patient admitted to with concern for endoleak. Vascular Surgery consulted. Discharge plan TBD at this time. Nela Vera RN [facility] 05-07-2023 Miscellaneous Notes Care Managment Initial Assessment Date: 05/07/2023 Patient Name: Kathy Puri : 1950 Patient Information Source of Information: Patient Cognition/Language: WFL - Within Functional Limits Permission given to speak with patient counter sales representative/caregiver as indicated: Yes Confirmation of Payer with patient/family: Yes Payer Name: [facility] Medicare : No Confirmation of Primary Care Physician: [...] floor Facility: Facility Name: Plan to Return: Yes Lives with: Extended family members (Grandson) Support Systems: Children, Parent, Family members Activities of Daily Living Ambulation: Independent Bathing/Dressing: Independent Elimination/Continence/Toileting: Independent Feeding: Independent Who Assists with Activities of Daily Living: Instrumental Activities of Daily Living Prescription Coverage: Yes Pharmacy Used: [facility] Medication Management: Prescription pick-up Transportation/Shopping: Assistance Provider Transportation/Shopping Assistance Provider Name: Family Transportation Mode: Car Needs Assistance with Transportation at Discharge: No Meal Preparation: Independent Laundry/Cleaning: Independent Finances/Bill Paying: Independent Communication: Independent Types of Care Services/Equipment Utilized Care Services: Dialysis Type: NA Durable Medical Equipment: Walker, Bedside Commode, Other (Comment) (Pill Box filled weekly.) Patient's Goal/Discharge Plan Patient expects to be discharged to: Home Discharge Planning Actions: Continue to follow Patient's Choice Rights and [employer] and Collaborative Relationships Disclosed as Indicated for Post-Acute Care: Interdisciplinary Team Engagement: Social Work Referral for: Additional Information: Patient admitted to with concern for endoleak. Vascular Surgery consulted. Discharge plan TBD at this time. Nela Vera RN Pt alert and oriented to self, place, situation, and time on admission. Upon entering the room to check her monitor, the patient is found to have unhooked her ECG and SpO2 monitor and pulled out the IV in her R AC. When asked orientation questions the pt was only able to correctly state her name/ and the month and year. notified about change in LOC. MD replied that this would be passed on to the day team and they would evaluate. Problem: Pain - Adult Goal: Verbalizes/displays adequate comfort level or baseline comfort level Outcome: Progressing Problem: Safety - Adult Goal: Free from fall injury Outcome: Progressing documented in this encounter [facility] 05-07-2023 Nurse Note Walked into pt room at 0915 and wrong breakfast tray was sitting on bedside table. Pt has already eaten everything. MD Wagner and nolberto notified. Pt was informed this morning she was NPO today and she ate the tray anyway. [facility] 05-07-2023 Note Formatting of this n ote might be different from the original. Pt alert and oriented to self, place, situation, and time on admission. Upon entering the room to check her monitor, the patient is found to have unhooked her ECG and SpO2 monitor and pulled out the IV in her R AC. When asked orientation questions the pt was only able to correctly state her name/ and the month and year. notified about change in LOC. MD replied that this would be passed on to the day team and they would evaluate. [facility] 05-07-2023 Note Formatting of this n ote might be different from the original. Pt alert and oriented to self, place, situation, and time on admission. Upon entering the room to check her monitor, the patient is found to have unhooked her ECG and SpO2 monitor and pulled out the IV in her R AC. When asked orientation questions the pt was only able to correctly state her name/ and the month and year. MD notified about change in LOC. MD replied that this would be passed on to the day team and they would evaluate. [facility] 05-07-2023 Note Problem: Pain - Adul t Goal: Verbalizes/displays adequate comfort level or baseline comfort level Outcome: Progressing Problem: Safety - Adult Goal: Free from fall injury Outcome: Progressing [facility] 05-07-2023 Plan of care note Problem: Pain - Adult Goal: Verbalizes/displays adequate comfort level or baseline comfort level Outcome: Progressing Problem: Safety - Adult Goal: Free from fall injury Outcome: Progressing [facility] 05-07-2023 Note Attestation signed by Lana Parker MD at 05/07/2023 1:20 PM I saw and evaluated the patient. I agree with the findings and plan of care as documented in the resident?s note unless otherwise noted below. The patient has a stable aneurysm sac size at 5.2 cm and no clear evidence of endoleak on her CT performed at [place] which was reviewed in the PACS system. She has a prior history of EVAR with endologix ovation graft with Palmaz stent placement for a Type 1A endoleak on the completion imaging. The CT is overall similar in appearance to her scan performed in July of 2022 in which no endoleak was present. She has a soft abdomen without evidence of a pulsatile mass. DP and PT doppler signals are present on the left and PT doppler signal is present on the right which is consistent with her last known pulse exam. From a vascular surgery standpoint, there is no need for admission and the patient is ok for discharge. OK for diet and resume home medications. Vascular Surgery H&P Note Reason for Consult: concern for endoleak History Of Present Illness: Kathy Puri is a 73 y.o. female with PMHx significant for hypertension, hyperlipidemia, CKD, myocardial infarction, CHF, COPD, GERD, BELLE, anemia, IBS, PAD, and PSHx of cardiac stents, pacemaker placement, hysterectomy, tonsillectomy, EVAR (2022, Dr. Parker), (additional history below) who presents to [facility] ED with a chief complaint of abdominal pain/confusion. Patient was transferred from [facility] for evaluation by [facility] vascular surgery team. Imaging completed at [facility], demonstrated concern for endoleak. Vascular surgery was consulted for the evaluation and management of endoleak. Patient reports the following: mild abdominal pain that starts from her left flank and radiates across to her right, intermittent, achy. Associated symptoms include: fatigue Denies: fever/chills/chest pain/shortness of breath/bilateral lower extremity pain/loss of motor/sensation. Former smoker. Denies any drug or alcohol use. Taking clopidogrel and apixaban as prescribed, last dose was 05/06/19 4 in the AM. IMPRESSION: Kathy Puri is a 73 y.o. female with a known type Ia endoleak. RECOMMENDATIONS: No acute vascular intervention tonight Will admit to vascular surgery N.p.o./MIVF Hold anticoagulation Imaging to be reviewed by primary vascular surgeon Dr. Parker in the a.m. and intervention TBD Case will be discussed with Dr. Whiting, on-call for Dr. Parker Past Medical History: Diagnosis Date Anemia Anxiety Arrhythmia afib Arthritis Cancer (CMS/HCC) (HCC) ovarian CHF (congestive heart failure) (CMS/HCC) (HCC) CKD (chronic kidney disease) COPD (chronic obstructive pulmonary disease) (HCC) Depression GERD (gastroesophageal reflux disease) Heart valve disease Hyperlipidemia Hypertension Irritable bowel syndrome Joint pain Myocardial infarction (CMS/HCC) (HCC) Pacemaker PAD (peripheral artery disease) (HCC) Sleep apnea uses CPAP Past Surgical History: Procedure Laterality Date ABDOMINAL AORTIC ANEURYSM REPAIR 07/05/2022 ENDOVASCULAR REPAIR OF ABDOMINAL AORTIC ANEURYSM, OPEN FEMORAL ARTERY EXPOSURE FOR DELIVERY OF ENDOVASCULAR PROSTHESIS BREAST BIOPSY Bilateral neg CORONARY STENT PLACEMENT X10 per pt. HYSTERECTOMY with BSO for CA INSERT / REPLACE / REMOVE PACEMAKER PACEMAKER (HISTORICAL) 2018 STENT INSERTION (HISTORICAL) TONSILLECTOMY Current Medications: doxycycline, 100 mg, Oral, BID sodium chloride, 1,000 mL, IntraVENous, Once Allergies: Lisinopril Social History Socioeconomic History Marital status: Spouse name: Not on file Number of children: Not on file Years of education: Not on file Highest education level: Not on file Occupational History Not on file Tobacco Use Smoking status: Former Packs/day: 0.50 Years: 45.00 Additional pack years: 0.00 Total pack years: 22.50 Types: Cigarettes Quit date: 2020 Years since quittin.1 Smokeless tobacco: Never Vaping Use Vaping Use: Never used Substance and Sexual Activity Alcohol use: Not Currently Comment: former social drinker; none for years Drug use: Never Sexual activity: Not on [...] Hypertension Sister Hyperlipidemia Sister REVIEW OF SYSTEMS: The chart was reviewed. Review of Systems Consti (more content not included)... [facility] 05-07-2023 History and physical note Vascular Surgery H&P Note Reason for Consult: concern for endoleak History Of Present Illness: Kathy Puri is a 73 y.o. female with PMHx significant for hypertension, hyperlipidemia, CKD, myocardial infarction, CHF, COPD, GERD, BELLE, anemia, IBS, PAD, and PSHx of cardiac stents, pacemaker placement, hysterectomy, tonsillectomy, EVAR (2022, Dr. Parker), (additional history below) who presents to [facility] ED with a chief complaint of abdominal pain/confusion. Patient was transferred from [facility] for evaluation by [facility] vascular surgery team. Imaging completed at [facility], demonstrated concern for endoleak. Vascular surgery was consulted for the evaluation and management of endoleak. Patient reports the following: mild abdominal pain that starts from her left flank and radiates across to her right, intermittent, achy. Associated symptoms include: fatigue Denies: fever/chills/chest pain/shortness of breath/bilateral lower extremity pain/loss of motor/sensation. Former smoker. Denies any drug or alcohol use. Taking clopidogrel and apixaban as prescribed, last dose was 05/06/19 4 in the AM. IMPRESSION: Kathy Puri is a 73 y.o. female with a known type Ia endoleak. RECOMMENDATIONS: No acute vascular intervention tonight Will admit to vascular surgery N.p.o./MDVF Hold anticoagulation Imaging to be reviewed by primary vascular surgeon Dr. Parker in the a.m. and intervention TBD Case will be discussed with Dr. Whiting, on-call for Dr. Parker Past Medical History: Diagnosis Date Anemia Anxiety Arrhythmia afib Arthritis Cancer (CMS/HCC) (HCC) ovarian CHF (congestive heart failure) (CMS/HCC) (HCC) CKD (chronic kidney disease) COPD (chronic obstructive pulmonary disease) (HCC) Depression GERD (gastroesophageal reflux disease) Heart valve disease Hyperlipidemia Hypertension Irritable bowel syndrome Joint pain Myocardial infarction (CMS/HCC) (HCC) Pacemaker PAD (peripheral artery disease) (HCC) Sleep apnea uses CPAP Past Surgical History: Procedure Laterality Date ABDOMINAL AORTIC ANEURYSM REPAIR 07/05/2022 ENDOVASCULAR REPAIR OF ABDOMINAL AORTIC ANEURYSM, OPEN FEMORAL ARTERY EXPOSURE FOR DELIVERY OF ENDOVASCULAR PROSTHESIS BREAST BIOPSY Bilateral neg CORONARY STENT PLACEMENT X10 per pt. HYSTERECTOMY with BSO for CA INSERT / REPLACE / REMOVE PACEMAKER PACEMAKER (HISTORICAL) 2019 STENT INSERTION (HISTORICAL) TONSILLECTOMY Current Medications: doxycycline, 100 mg, Oral, BID sodium chloride, 1,000 mL, IntraVENous, Once Allergies: Lisinopril Social History Socioeconomic History Marital status: Spouse name: Not on file Number of children: Not on file Years of education: Not on file Highest education level: Not on file Occupational History Not on file Tobacco Use Smoking status: Former Packs/day: 0.50 Years: 45.00 Additional pack years: 0.00 Total pack years: 22.50 Types: Cigarettes Quit date: 2020 Years since quittin.1 Smokeless tobacco: Never Vaping Use Vaping Use: Never used Substance and Sexual Activity Alcohol use: Not Currently Comment: former social drinker; none for years Drug use: Never Sexual activity: Not on [...] Hypertension Sister Hyperlipidemia Sister REVIEW OF SYSTEMS: The chart was reviewed. Review of Systems Constitutional: Positive for fatigue. Negative for appetite change, chills, diaphoresis, fever and unexpected weight change. HENT: Negative for nosebleeds and postnasal drip. Eyes: Negative for pain and itching. Respiratory: Negative for apnea and shortness of breath. Cardiovascular: Negative for chest pain and palpitations. Gastrointestinal: Positive for abdominal pain. Negative for abdominal distention, constipation, diarrhea, nausea and vomiting. Genitourinary: Negative for difficulty urinating and dysuria. Skin: Negative for color change and rash. Neurological: Negative for seizures and numbness. All other systems reviewed and are negative. LABS: Lab Results Component Value Date CREATININE 2.19 (H) 05/06/2023 Lab Results Component Value Date WBC 6.4 05/06/2023 HGB 11.2 (L) 05/06/2023 HCT 33.2 (L) 05/06/2023 MCV 90.1 05/06/2023 PLT 158 05/06/2023 Lab Results Component Value Date INR 1.4 (H) 05/07/2023 PROTIME 14.7 (H) 05/07/2023 No results found for: VLDL PHYSICAL EXAM: Vitals: 05/06/23 2251 BP: 101/76 Pulse: 74 Resp: 14 SpO2: 96% Vascular Physical Exam Vitals and nursing note reviewed. Constitutional: General: She is awake. HENT: Head: Normocephalic and atraumatic. Right Ear: External ear normal. Left Ear: External ear normal. Nose: Nose normal. No rhinorrhea. Mouth/Throat: Mouth: Mucous membranes are moist. Eyes: General: Right eye: No discharge. Left eye: No discharge. Conjunctiva/sclera: Conjunctivae normal. Cardiovascular: Rate and Rhythm: Normal rate. Pulses: Carotid pulses are 2+ on the right side and 2+ on the left side. Radial pulses are 2+ on the right side and 2+ on the left side. Femoral pulses are 2+ on the right side and 2+ on the left side. Dorsalis pedis pulses are detected w/ Doppler on the right side and non-palpable on the left side. Right dorsalis pedis pulse signal is biphasic. Posterior tibial pulses are detected w/ Doppler on the right side and detected w/ Doppler on the left side. Right posterior tibial pulse signal is biphasic. Left posterior tibial pulse signal is biphasic. Pulmonary: Effort: Pulmonary effort is normal. No respiratory distress. Breath sounds: No wheezing. Abdominal: Palpations: Abdomen is soft. Skin: General: Skin is warm. Capillary Refill: Capillary refill takes less than 2 seconds. Findings: No wound. Neurological: Mental Status: She is alert. GCS: GCS eye subscore is 4. GCS verbal subscore is 5. GCS motor subscore is 6. Sensory: Sensation is intact. Motor: Motor function is intact. LABS: Lab Results Component Value Date WBC 6.4 05/06/2023 HGB 11.2 (L) 05/06/2023 HCT 33.2 (L) 05/06/2023 PLT 158 05/06/2023 PROTIME 14.7 (H) 05/07/2023 INR 1.4 (H) 05/07/2023 K 4.3 05/06/2023 BUN 58 (H) 05/06/2023 CREATININE 2.19 (H) 05/06/2023 VASCULAR TESTING: CTA (see PACS imaging for scan) Raji Ontiveros M.D. Department of Surgery General Surgery Resident Pager: [phone] PAGING / [employer] Secure Chat: From 6a-6p (- weekends): Epic Secure Chat (FIRST) or Pager above (EMERGENT/Second) From 6p-6a (- weekends): Find resident physician under [facility] Surgery - General - Surgical ICU Patients: [...] This note may have been dictated using [employer] and/or [employer] Voice Recognition Feature. The document was proofread; however, unrecognized voice recognition team cdl driver errors may be present. Associated attestation - Lana Parker MD - 05/07/2023 1:20 PM EST I saw and evaluated the patient. I agree with the findings and plan of care as documented in the resident s note unless otherwise noted below. The patient has a stable aneurysm sac size at 5.2 cm and no clear evidence of endoleak on her CT performed at [place] which was reviewed in the PACS system. She has a prior history of EVAR with endologix ovation graft with Palmaz stent placement for a Type 1A endoleak on the completion imaging. The CT is overall similar in appearance to her scan performed in July of 2022 in which no endoleak was present. She has a soft abdomen without evidence of a pulsatile mass. DP and PT doppler signals are present on the left and PT doppler signal is present on the right which is consistent with her last known pulse exam. From a vascular surgery standpoint, there is no need for admission and the patient is ok for discharge. OK for diet and resume home medications. [facility] System 05-07-2023 History and physical note Vascular Surgery H&P Note Reason for Consult: concern for endoleak History Of Present Illness: Kathy Puri is a 73 y.o. female with PMHx significant for hypertension, hyperlipidemia, CKD, myocardial infarction, CHF, COPD, GERD, BELLE, anemia, IBS, PAD, and PSHx of cardiac stents, pacemaker placement, hysterectomy, tonsillectomy, EVAR (2022, Dr. Parker), (additional history below) who presents to [facility] ED with a chief complaint of abdominal pain/confusion. Patient was transferred from [facility] for evaluation by [facility] vascular surgery team. Imaging completed at [facility], demonstrated concern for endoleak. Vascular surgery was consulted for the evaluation and management of endoleak. Patient reports the following: mild abdominal pain that starts from her left flank and radiates across to her right, intermittent, achy. Associated symptoms include: fatigue Denies: fever/chills/chest pain/shortness of breath/bilateral lower extremity pain/loss of motor/sensation. Former smoker. Denies any drug or alcohol use. Taking clopidogrel and apixaban as prescribed, last dose was 05/06/19 4 in the AM. IMPRESSION: Kathy Puri is a 73 y.o. female with a known type Ia endoleak. RECOMMENDATIONS: No acute vascular intervention tonight Will admit to vascular surgery N.p.o./MIVF Hold anticoagulation Imaging to be reviewed by primary vascular surgeon Dr. Parker in the a.m. and intervention TBD Case will be discussed with Dr. Whiting, on-call for Dr. Parker Past Medical History: Diagnosis Date Anemia Anxiety Arrhythmia afib Arthritis Cancer ([facility]/HCC) ([facility]) ovarian CHF (congestive heart failure) ([facility]) ([facility]) CKD (chronic kidney disease) COPD (chronic obstructive pulmonary disease) ([facility]) Depression GERD (gastroesophageal reflux disease) Heart valve disease Hyperlipidemia Hypertension Irritable bowel syndrome Joint pain Myocardial infarction ([facility]) ([facility]) Pacemaker PAD (peripheral artery disease) ([facility]) Sleep apnea uses CPAP Past Surgical History: Procedure Laterality Date ABDOMINAL AORTIC ANEURYSM REPAIR 07/05/2022 ENDOVASCULAR REPAIR OF ABDOMINAL AORTIC ANEURYSM, OPEN FEMORAL ARTERY EXPOSURE FOR DELIVERY OF ENDOVASCULAR PROSTHESIS BREAST BIOPSY Bilateral neg CORONARY STENT PLACEMENT X10 per pt. HYSTERECTOMY with BSO for CA INSERT / REPLACE / REMOVE PACEMAKER PACEMAKER (HISTORICAL) 2019 STENT INSERTION (HISTORICAL) TONSILLECTOMY Current Medications: doxycycline, 100 mg, Oral, BID sodium chloride, 1,000 mL, IntraVENous, Once Allergies: Lisinopril Social History Socioeconomic History Marital status: Spouse name: Not on file Number of children: Not on file Years of education: Not on file Highest education level: Not on file Occupational History Not on file Tobacco Use Smoking status: Former Packs/day: 0.50 Years: 45.00 Additional pack years: 0.00 Total pack years: 22.50 Types: Cigarettes Quit date: 2020 Years since quittin.1 Smokeless tobacco: Never Vaping Use Vaping Use: Never used Substance and Sexual Activity Alcohol use: Not Currently Comment: former social drinker; none for years Drug use: Never Sexual activity: Not on [...] Hypertension Sister Hyperlipidemia Sister REVIEW OF SYSTEMS: The chart was reviewed. Review of Systems Constitutional: Positive for fatigue. Negative for appetite change, chills, diaphoresis, fever and unexpected weight change. HENT: Negative for nosebleeds and postnasal drip. Eyes: Negative for pain and itching. Respiratory: Negative for apnea and shortness of breath. Cardiovascular: Negative for chest pain and palpitations. Gastrointestinal: Positive for abdominal pain. Negative for abdominal distention, constipation, diarrhea, nausea and vomiting. Genitourinary: Negative for difficulty urinating and dysuria. Skin: Negative for color change and rash. Neurological: Negative for seizures and numbness. All other systems reviewed and are negative. LABS: Lab Results Component Value Date CREATININE 2.19 (H) 05/06/2023 Lab Results Component Value Date WBC 6.4 05/06/2023 HGB 11.2 (L) 05/06/2023 HCT 33.2 (L) 05/06/2023 MCV 90.1 05/06/2023 PLT 158 05/06/2023 Lab Results Component Value Date INR 1.4 (H) 05/07/2023 PROTIME 14.7 (H) 05/07/2023 No results found for: VLDL PHYSICAL EXAM: Vitals: 05/06/23 2251 BP: 101/76 Pulse: 74 Resp: 14 SpO2: 96% Vascular Physical Exam Vitals and nursing note reviewed. Constitutional: General: She is awake. HENT: Head: Normocephalic and atraumatic. Right Ear: External ear normal. Left Ear: External ear normal. Nose: Nose normal. No rhinorrhea. Mouth/Throat: Mouth: Mucous membranes are moist. Eyes: General: Right eye: No discharge. Left eye: No discharge. Conjunctiva/sclera: Conjunctivae normal. Cardiovascular: Rate and Rhythm: Normal rate. Pulses: Carotid pulses are 2+ on the right side and 2+ on the left side. Radial pulses are 2+ on the right side and 2+ on the left side. Femoral pulses are 2+ on the right side and 2+ on the left side. Dorsalis pedis pulses are detected w/ Doppler on the right side and non-palpable on the left side. Right dorsalis pedis pulse signal is biphasic. Posterior tibial pulses are detected w/ Doppler on the right side and detected w/ Doppler on the left side. Right posterior tibial pulse signal is biphasic. Left posterior tibial pulse signal is biphasic. Pulmonary: Effort: Pulmonary effort is normal. No respiratory distress. Breath sounds: No wheezing. Abdominal: Palpations: Abdomen is soft. Skin: General: Skin is warm. Capillary Refill: Capillary refill takes less than 2 seconds. Findings: No wound. Neurological: Mental Status: She is alert. GCS: GCS eye subscore is 4. GCS verbal subscore is 5. GCS motor subscore is 6. Sensory: Sensation is intact. Motor: Motor function is intact. LABS: Lab Results Component Value Date WBC 6.4 05/06/2023 HGB 11.2 (L) 05/06/2023 HCT 33.2 (L) 05/06/2023 PLT 158 05/06/2023 PROTIME 14.7 (H) 05/07/2023 INR 1.4 (H) 05/07/2023 K 4.3 05/06/2023 BUN 58 (H) 05/06/2023 CREATININE 2.19 (H) 05/06/2023 VASCULAR TESTING: CTA (see PACS imaging for scan) Raji Ontiveros M.D. Department of Surgery General Surgery Resident Pager: [phone] PAGING / [employer]Rocket Secure Chat: From 6a-6p (- weekends): Epic Secure Chat (FIRST) or Pager above (EMERGENT/Second) From 6p-6a (-s): Find resident physician under [facility] Surgery - General - Surgical ICU Patients: [...] This note may have been dictated using [employer] Edition and/or [employer] Voice Recognition Feature. The document was proofread; however, unrecognized voice recognition team cdl driver errors may be present. Associated attestation - Lana Parker MD - 05/07/2023 1:20 PM EST I saw and evaluated the patient. I agree with the findings and plan of care as documented in the resident s note unless otherwise noted below. The patient has a stable aneurysm sac size at 5.2 cm and no clear evidence of endoleak on her CT performed at [place] which was reviewed in the PACS system. She has a prior history of EVAR with endologix ovation graft with Palmaz stent placement for a Type 1A endoleak on the completion imaging. The CT is overall similar in appearance to her scan performed in July of 2022 in which no endoleak was present. She has a soft abdomen without evidence of a pulsatile mass. DP and PT doppler signals are present on the left and PT doppler signal is present on the right which is consistent with her last known pulse exam. From a vascular surgery standpoint, there is no need for admission and the patient is ok for discharge. OK for diet and resume home medications. documented in this encounter [facility] 05-07-2023 Emergency department Note Surgery at bedside. Sánchez Jimenez 05/07/23 0042 [facility] 05-07-2023 Emergency department Note Surgery at bedside. Sánchez Jimenez 05/07/23 0042 Emergency Department Encounter [facility] EMERGENCY DEPT Patient: Kathy Puri : 1950 Date of Evaluation: 05/06/2023 ED Supervising Physician: Kanwal Durbin MD I independently examined and evaluated Kathy Puri. In brief, Kathy Puri is a 73 y.o. female with a past medical history significant for AAA status post left hand repair, irritable bowel syndrome, CKD, and congestive heart failure with COPD who presents to the emergency department for evaluation for an endoleak. Patient states has been having abdominal pain. She states that today the pain was worse. She states her home health nurse took her blood pressure and it was low hence sending her to close by emergency department. Patient was evaluated at that facility with CTA chest abdomen and pelvis completed. She states that she was told that she is having some leaking and hence transferred here for further evaluation and management. She denies lightheadedness or dizziness. She denies chest pain. She denies intra-abdominal trauma. She also denied uncontrolled hypertension. ED Triage Vitals [05/06/23 2251] Temp Heart Rate Resp BP -- 74 14 101/76 SpO2 Temp src Heart Rate Source Patient Position 96 % -- Monitor Lying BP Location FiO2 (%) Left arm -- Focused exam: [id number] in no acute distress. Alert and oriented X 3. Lungs clear to auscultation bilaterally with no wheezes or crackles appreciated. Heart rate and rhythm regular with no murmurs. Abdomen soft tender to palpation in the upper quadrants, nondistended with positive bowel sounds. No edema appreciated on the lower extremities bilaterally. Brief ED course/MDM: XR chest 1 view Final Result Lines, tubes, and devices: Dual-chamber pacemaker with leads project over the right atrium and right ventricle, unchanged. Lungs and pleura: Diffuse interstitial coarsening, likely chronic. Patchy airspace opacities in the right lung, likely infectious infiltrate. No sizable pleural fusion or pneumothorax. Cardiomediastinal silhouette: Stable enlarged cardiomediastinal silhouette.Atherosclerotic calcifications of the aortic arch Other: Degenerative changes of the spine and shoulders. Stent graft of the descending aorta is noted. Report Dictated on Electronically Signed By: Brandyn Gibbons MD Electronically Signed Date/Time: 05/07/2023 12:05 AM EST Labs Reviewed CBC WITH AUTO DIFFERENTIAL - Abnormal Result Value Auto WBC 6.4 RBC 3.68 (*) Hemoglobin 11.2 (*) Hematocrit 33.2 (*) MCV 90.1 MCH 30.5 MCHC 33.8 RDW 13.8 Platelets 158 MPV 8.6 nRBC 0.0 Neutrophils Relative 77.1 Lymphocytes Relative 13.9 (*) Monocytes Relative 6.9 Eosinophils Relative 1.7 Basophils Relative 0.4 Neutrophils Absolute 4.9 Lymphocytes Absolute 0.9 (*) Monocytes Absolute 0.4 Eosinophils Absolute 0.1 Basophils Absolute 0.0 BASIC METABOLIC PANEL - Abnormal SODIUM 136 POTASSIUM 4.3 CHLORIDE 108 (*) CARBON DIOXIDE 22 UREA NITROGEN 58 (*) CREATININE 2.19 (*) GLUCOSE 91 CALCIUM 7.9 (*) ANION GAP 6 eGFR 23.1 (*) HEPATIC FUNCTION PANEL - Abnormal BILIRUBIN, TOTAL 0.5 BILIRUBIN, DIRECT 0.0 ALKALINE PHOSPHATASE 100 AST (SGOT) 16 ALT 6 ALBUMIN 3.5 TOTAL PROTEIN 6.2 (*) PROTIME & APTT - Abnormal PROTHROMBIN TIME 14.7 (*) INR 1.4 (*) APTT 26.5 BLOOD TYPE AND SCREEN GEL ABO Grouping A Antibody Screen NEG Rh Type POS COMPLETE URINALYSIS WITH REFLEX TO CULTURE Narrative: The following orders were created for panel order Complete Urinalysis with reflex to Culture. Procedure Abnormality Status --------- ------ Complete Urinalysis[[id number]] Please view results for these tests on the individual orders. 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 Given presentation reviewed imaging from the outside hospital. Obtain blood work in the department. Blood work with an SAM with a creatinine of 2.19 from 2.94 at the outside hospital, with no electrode abnormalities, no renal function impairment, no transaminitis, mild anemia appreciated with a hemoglobin of 11.2 this is decreased from 12.4 at the outside hospital. Chest x-ray with opacities appreciated. EKG with [place] rhythm with a rate of [address] elevations or depressions concerning for STEMI. Patient with nonspecific ST depressions in the lateral leads present on previous EKG from June 2022. Reviewed paperwork from [facility]. Urinalysis on that paperwork with no UTI. Surgery was consulted to evaluate the patient. They recommended admitting the patient to their service. Plan discussed with the patient and patient agreeable with plan. Patient admitted in stable condition. All diagnostic, treatment, and disposition decisions were made by myself in conjunction with the Resident. I also supervised duncan portions of any procedures performed by the Resident. For all further details of the patient's emergency department visit, please see their documentation. (Please note that portions of this note may have been completed with a voice recognition program. Efforts were made to edit the dictations but occasionally words are mis-transcribed.) MD Kanwal Sherman MD 05/07/23 0131 documented in this encounter [facility] 05-06-2023 Physician Emergency department Note Emergency Department Encounter [facility] EMERGENCY DEPT Patient: Kathy Puri : 1950 Date of Evaluation: 05/06/2023 ED Supervising Physician: Kanwal Durbin MD I independently examined and evaluated Kathy Puri. In brief, Kathy Puri is a 73 y.o. female with a past medical history significant for AAA status post left hand repair, irritable bowel syndrome, CKD, and congestive heart failure with COPD who presents to the emergency department for evaluation for an endoleak. Patient states has been having abdominal pain. She states that today the pain was worse. She states her home health nurse took her blood pressure and it was low hence sending her to close by emergency department. Patient was evaluated at that facility with CTA chest abdomen and pelvis completed. She states that she was told that she is having some leaking and hence transferred here for further evaluation and management. She denies lightheadedness or dizziness. She denies chest pain. She denies intra-abdominal trauma. She also denied uncontrolled hypertension. ED Triage Vitals [05/06/23 2251] Temp Heart Rate Resp BP -- 74 14 101/76 SpO2 Temp src Heart Rate Source Patient Position 96 % -- Monitor Lying BP Location FiO2 (%) Left arm -- Focused exam: [id number]-[id number] in no acute distress. Alert and oriented X 3. Lungs clear to auscultation bilaterally with no wheezes or crackles appreciated. Heart rate and rhythm regular with no murmurs. Abdomen soft tender to palpation in the upper quadrants, nondistended with positive bowel sounds. No edema appreciated on the lower extremities bilaterally. Brief ED course/MDM: XR chest 1 view Final Result Lines, tubes, and devices: Dual-chamber pacemaker with leads project over the right atrium and right ventricle, unchanged. Lungs and pleura: Diffuse interstitial coarsening, likely chronic. Patchy airspace opacities in the right lung, likely infectious infiltrate. No sizable pleural fusion or pneumothorax. Cardiomediastinal silhouette: Stable enlarged cardiomediastinal silhouette.Atherosclerotic calcifications of the aortic arch Other: Degenerative changes of the spine and shoulders. Stent graft of the descending aorta is noted. Report Dictated on Electronically Signed By: Brandyn Gibbons MD Electronically Signed Date/Time: 05/07/2023 12:05 AM EST Labs Reviewed CBC WITH AUTO DIFFERENTIAL - Abnormal Result Value Auto WBC 6.4 RBC 3.68 (*) Hemoglobin 11.2 (*) Hematocrit 33.2 (*) MCV 90.1 MCH 30.5 MCHC 33.8 RDW 13.8 Platelets 158 MPV 8.6 nRBC 0.0 Neutrophils Relative 77.1 Lymphocytes Relative 13.9 (*) Monocytes Relative 6.9 Eosinophils Relative 1.7 Basophils Relative 0.4 Neutrophils Absolute 4.9 Lymphocytes Absolute 0.9 (*) Monocytes Absolute 0.4 Eosinophils Absolute 0.1 Basophils Absolute 0.0 BASIC METABOLIC PANEL - Abnormal SODIUM 136 POTASSIUM 4.3 CHLORIDE 108 (*) CARBON DIOXIDE 22 UREA NITROGEN 58 (*) CREATININE 2.19 (*) GLUCOSE 91 CALCIUM 7.9 (*) ANION GAP 6 eGFR 23.1 (*) HEPATIC FUNCTION PANEL - Abnormal BILIRUBIN, TOTAL 0.5 BILIRUBIN, DIRECT 0.0 ALKALINE PHOSPHATASE 100 AST (SGOT) 16 ALT 6 ALBUMIN 3.5 TOTAL PROTEIN 6.2 (*) PROTIME & APTT - Abnormal PROTHROMBIN TIME 14.7 (*) INR 1.4 (*) APTT 26.5 BLOOD TYPE AND SCREEN GEL ABO Grouping A Antibody Screen NEG Rh Type POS COMPLETE URINALYSIS WITH REFLEX TO CULTURE Narrative: The following orders were created for panel order Complete Urinalysis with reflex to Culture. Procedure Abnormality Status --------- ------ Complete Urinalysis[[id number]] Please view results for these tests on the individual orders. 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 Given presentation reviewed imaging from the outside hospital. Obtain blood work in the department. Blood work with an SAM with a creatinine of 2.19 from 2.94 at the outside hospital, with no electrode abnormalities, no renal function impairment, no transaminitis, mild anemia appreciated with a hemoglobin of 11.2 this is decreased from 12.4 at the outside hospital. Chest x-ray with opacities appreciated. EKG with Shemar rhythm with a rate of [address] elevations or depressions concerning for STEMI. Patient with nonspecific ST depressions in the lateral leads present on previous EKG from June 2022. Reviewed paperwork from [facility]. Urinalysis on that paperwork with no UTI. Surgery was consulted to evaluate the patient. They recommended admitting the patient to their service. Plan discussed with the patient and patient agreeable with plan. Patient admitted in stable condition. All diagnostic, treatment, and disposition decisions were made by myself in conjunction with the Resident. I also supervised duncan portions of any procedures performed by the Resident. For all further details of the patient's emergency department visit, please see their documentation. (Please note that portions of this note may have been completed with a voice recognition program. Efforts were made to edit the dictations but occasionally words are mis-transcribed.) MD Kanwal Sherman MD 05/07/23 0131 [employer] Phone: 09-18-2022 Note Patient Outreach (IN TMMN) KATHY PURI ([id number]) 1950 F Date Time Provider Department 09/18/22 CATHI HAYES During your visit today, we recorded the following information about you: Allergies As of Date: 09/18/2022 Noted Allergy Reaction LISINOPRIL 05/31/2019 14 - Other: See Comments Comments: Numbness to tongue Date Reviewed: 12/27/2020 Reviewed by: Yuly Galloway, NARENDRA - Fully Assessed Visit Diagnosis:Encounter for screening mammogram for breast cancer [Z12.31] Order(s):[facility] SCREENING [[id number]] Order #: [id number] FUTURE Prescriptions as of 09/23/2022 - clopidogrel [...] twice daily. Added at recent hospital stay health system. - BIPAP Initiate BiPAP @ 9/5 cm [...] Neck pain [M54.2] 10/02/2020 Encounter Status:Closed by EDIS, PRODUSER on 09/23/22 [facility] 08-19-2022 History of Present illness Narrative [...] care everywhere as there were performed in [place]. Past Surgical History: Procedure Laterality Date ABDOMINAL [...] MD Vascular Surgery documented in this encounter [facility] 07-24-2022 History of Present illness Narrative 07/24/2022 [...] MD Vascular Surgery documented in this encounter [facility] 07-10-2022 Nurse Note Discharged to home. Instructions given to pt and her sister. Prescriptions filled by meds to beds pharmacy. [facility] 07-10-2022 Nurse Note Discharged to home. Instructions [...] patient elevated BP. documented in this encounter [facility] 07-10-2022 Note Vascular Surgery Dis charge Summary [...] the patient discharged on a statin? Yes [facility] 07-10-2022 Hospital course Narrative Vascular Surgery [...] a statin? Yes documented in this encounter [facility] 07-10-2022 Note Department of Surger y - [...] Problem: Infrarenal abdomina (more content not included)... [facility] 07-10-2022 History of Present illness Narrative [...] (96.5 F) Temporal 61 18 96 % 07/09/22 2003 (!) 141/53 36.4 C (97.6 F) Temporal [...] Will discuss with Dr. Nuñez NG / Epic Secure Chat: From 6a-6p (- weekends): Epic Secure Chat (FIRST) or Pager above (EMERGENT/Second) From 6p-6a (-s): Find resident provider under [facility] Surgery - General - Surgical ICU Patients: [...] This note may have been dictated using [employer] Edition and/or [employer] Voice Recognition Feature. The document was proofread; however, unrecognized voice recognition team cdl driver errors may be present Physical Therapy Facility/Department: [...] history of Anemia, Anxiety, Arrhythmia, Arthritis, Cancer ([facility]) ([facility]), CHF (congestive heart failure) ([facility]) ([facility]), CKD (chronic kidney disease), COPD (chronic obstructive pulmonary disease) ([facility]), Depression, GERD (gastroesophageal reflux disease), Heart valve disease, Hyperlipidemia, Hypertension, Irritable bowel syndrome, Joint pain, Myocardial infarction ([facility]) ([facility]), Pacemaker, PAD (peripheral artery disease) ([facility]), and Sleep apnea. has a past surgical [...] Inpatient Mobility Raw Score: 17 Mobility Inpatient CMS G-Code Modifier: CK Goals Encounter Problems Encounter [...] Code Treatment Minutes: 23 Minutes (FAx1; GTx1) KEITH Ernandez PTA Patient re-evaluated at bedside. She recalls the [...] discharge with Dr. Parker. Department of Surgery #[id number] Images from the original note were not [...] Will discuss with Dr. Parker NG / [employer] Secure Chat: From 6a-6p (-s): [employer] Secure Chat (FIRST) or Pager above (EMERGENT/Second) From 6p-6a (-): Find resident provider under [facility] Surgery - General - Surgical ICU Patients: [...] This note may have been dictated using [employer] Edition and/or [employer] Voice Recognition Feature. 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 She will have assistance from her mother [...] of Anemia, Anxiety, Arrhythmia, Arthritis, Cancer (CMS/HCC) ([facility]), CHF (congestive heart failure) (CMS/HCC) ([facility]), CKD (chronic kidney disease), COPD (chronic obstructive pulmonary disease) ([facility]), Depression, GERD (gastroesophageal reflux disease), Heart valve disease, Hyperlipidemia, Hypertension, Irritable bowel syndrome, Joint pain, Myocardial infarction (CMS/HCC) ([facility]), Pacemaker, PAD (peripheral artery disease) ([facility]), and Sleep apnea. has a past surgical [...] With device?: No Transfer Assistance: Independent Active Ordnance Engineer: Yes Mode of Transportation: Car Additional [...] Other exercises 1: IS x 10 to [id number] ml Plan Times per Week: 5 Times [...] Inpatient Mobility Raw Score: 17 Mobility Inpatient CMS G-Code Modifier: CK Goals Encounter Problems Encounter [...] Raji Ontiveros M.D. Department of Surgery Pager: [phone] PAGING / AdRocket Secure Chat: From 6a-6p (- weekends): [employer] Secure Chat (FIRST) or Pager above (EMERGENT/Second) From 6p-6a (-s): Find resident provider under [facility] Surgery - General - Surgical ICU Patients: [...] This note may have been dictated using Ch[employer] Sh[employer] Practice Edition and/or [employer] Voice Recognition Feature. The document was proofread; however, unrecognized voice recognition team cdl driver errors may be present. Associated attestation - [...] assess Fluid Accumulation: No significant fluid accumulation Spinner Hand Strength: Not Performed Nutrition Assessment: +Nutrition screen. 72F w/ PMHx: CAD s/p PCI, CHF with reduced EF (11/2021 of 15-20%; 06/11/22 EF 30%), Pacemaker for tachy-erica syndrome, atrial fibrillation on Eliquis, COPD, and emphysema. She also has a history of bilateral SFA stenting. Admitted to [facility] for infrarenal abdominal aortic aneurysm without rupture, POD#2 s/p EVAR. Having hypertensive episodes this admission, prn antihypertensive given. Advanced to a regular diet, overall vance diet. Having some back pain, likely from stent placement. Endorses some nausea today w/ associated emesis. Hypoactive BS. Estimated Daily Nutrient Needs: Energy Requirements Based On: Kcal/kg Weight Used for Energy Requirements: [place] Weight for Energy Calculation (kg): 45 kg Total Energy Requirements (kcals/day): 1350 Weight Used for Protein Requirements: [place] Weight in Kg Used for Protein Requirements: [...] Current Body Weight: 59.4 kg (131 lb) [place] Body Weight (lbs) (Calculated): 100 lbs [place] Body Weight (Kg) (Calculated): 45 kg % [place] Body Weight (Calculated): 131 % BMI (kg/m2) [...] Jacqueline Lion MS, RD, LD Contact: or AdRocket Chat Images from the original note were [...] -- -- 60 12 96 % 07/06/22 190 (!) 177/55 36 C (96.8 F) Temporal [...] Raji Ontiveros M.D. Department of Surgery Pager: [phone] PAGING / AdRocket Secure Chat: From 6a-6p (-s): [employer] Secure Chat (FIRST) or Pager above (EMERGENT/Second) From 6p-6a (-): Find resident provider under [facility] Surgery - General - Surgical ICU Patients: [...] This note may have been dictated using Ch[employer] Shorts Practice Edition and/or [employer] Voice Recognition Feature. The document was proofread; however, unrecognized voice recognition team cdl driver errors may be present. Images from the [...] 145/45 -- -- 60 12 98 % 07/05/221999 (!) 151/42 -- -- 60 10 94 [...] 60 16 100 % 07/05/22 1415 (!) 143/61 -- -- 60 18 99 % 07/05/22 1401 (!) 143/61 36.6 C (97.8 F) Temporal 60 16 [...] Raji Ontiveros M.D. Department of Surgery Pager: [phone] PAGING / AdRocket Secure Chat: From 6a-p (-s): [employer] Secure Chat (FIRST) or Pager above (EMERGENT/Second) From 6p-6a (-): Find resident provider under [facility] Surgery - General - Surgical ICU Patients: [...] This note may have been dictated using Chubbies Shorts Practice Edition and/or [employer] Voice Recognition Feature. The document was proofread; however, unrecognized voice recognition team cdl driver errors may be present. Associated attestation - Lana Parker MD - 07/06/2022 12:34 PM EDT [...] without hematoma. PT/OT. documented in this encounter [facility] 07-09-2022 Note Care Management Prog ress Note Patient remains on 1C s/p EVAR POD # 4. Weaned to RA, patient re-eval by vascular from this am-now alert/oriented, ambulatory and tolerating diet. PT recommending home with assist.-patient stated to TCC mom and sister planning on staying/assisting her at de. Patient from home with grandson, anticipate discharge [...] Length of Stay (Days): 4 GMLOS: 1.5 [facility] 07-09-2022 Nurse Note Patient states she takes lorazepam every night before bed and asking if she can get it here. I called and clarified with her pharmacy active medication. Dr Ontiveros aware. [facility] 07-09-2022 Nurse Note Per patient request Dr Ontiveros messaged because she states she takes lorazepam at hs. T [facility] 07-09-2022 Note Formatting of this n ote [...] Raji Ontiveros MD 07/05/2022 5:12 PM 07/08/2022 aKila Davey PA-C 07/05/2022 6:13 AM Length of Stay (Days): 4 GMLOS: 1.5 [facility] 07-09-2022 Note Formatting of this n ote [...] and sister planning on staying/assisting her at de. Patient from home with grandson, anticipate discharge [...] Length of Stay (Days): 4 GMLOS: 1.5 T [facility] 07-09-2022 Miscellaneous Notes Images from the original [...] Limits Permission given to speak with patient counter sales representative/caregiver as indicated: Confirmation of Payer with patient/family: Yes Payer Name: [facility] Dual [place]: No Confirmation of Primary Care Physician: Confirmed [...] Living Prescription Coverage: Yes Pharmacy Used: [facility] Medication Management: (picks up rx, student fills [...] in recovery and will be admitted to [address] [place] [address] A [facility]. Sistermaia updated via phone call on pt status. OPERATIVE REPORT DATE OF SERVICE: 07/05/2022 PRE-PROCEDURE DIAGNOSIS: Infrarenal Abdominal aortic aneurysm POST-PROCEDURE DIAGNOSIS: As above PROCEDURE PERFORMED: 1) Bilateral open femoral artery exposure for delivery of endoprosthesis 2) Endovascular infrarenal abdominal aortic aneurysm repair with 29 mm Endologix [place] endograft 3) Placement of 10 mm x 37 mm Balloon expandable stent placement to the right common iliac limb 4) Palmaz stent placement to the infrarenal aortic neck SURGEON: Lana Parker MD ASSISTANTS: Jolynn Meza APRN-SCHOOL PLANT CONSULTANT, aRji Ontiveros MD (PGY-1), Brian Nuñez MD FINDINGS: [...] SPECIMENS: None IMPLANTS: 1) 29 mm Endologix [place] Main body 2) 14 x 120 mm Ovation iX left iliac limb 3) 16 x 120 mm Ovation iX right iliac limb 4) Palmaz XL stent to Aortic neck 5) 10 x 39 mm [place] [employer] [employer] balloon expandable stent placement to [...] technique was used to place a 6 [place] sheath. This was again performed in a similar fashion on the left with placement of an 8 [place]i sheath. The patient was then given 6000 [...] abdominal aorta. On the right, a 14 [place] sheath was placed once the graft was [...] delivery system was removed and a 16 [place] sheath was placed on the left. As [...] with passing anything larger than a 12 [place] catheter from the right, the decision was [...] Parker MD Vascular Surgery Date: 07/05/2022 Location: [facility] OR Name: Kathy Puri, : 1950, Diagnosis Pre-op Diagnosis * Infrarenal abdominal aortic aneurysm, without rupture (HCC) [I71.43] Post-op Diagnosis * Infrarenal abdominal aortic aneurysm, without rupture (HCC) [I71.43] Procedures ENDOVASCULAR REPAIR OF ABDOMINAL AORTIC ANEURYSM 42952 - SC EVASC RPR DPLMNT [id number]-RI-[id number] NDGFT OPEN FEMORAL ARTERY EXPOSURE FOR DELIVERY OF ENDOVASCULAR PROSTHESIS 06844 - SC OPN FEM ART EXPOS DLVR EVASC PROSTH [...] STENT CARLOS 10MM 7FR 25MM 135CM - [id number] Implanted Staff: Rivet Sticker: Georgina Daley RN Nurse Practitioner: Jolynn Meza, INSULATION HELPER - SCHOOL PLANT CONSULTANT Relief Scrub: Fercho Crystal Scrub Person: Landy [...] Vancomycin or flouroquinolone) documented in this encounter [facility] 07-09-2022 Hospital Discharge instructions Franklin Ontiveros MD - 07/09/2022 2:55 PM EDT Discharge Instructions for Endovascular Repair of Abdominal Aortic Aneurysm Call Dr. Parker's office [phone] for follow-up appointment. During endovascular repair, the [...] regular diet. You may work with a key sander who will help you follow a heart-healthy [...] do so. Medications Your doctor may recommend: Vzbp-opo-kngwrjn or prescription pain medicine Aspirin or a [...] taking more than one drug. This includes gife-ine-tvqztoz medicines and herb or dietary supplements. Plan [...] emergency, CALL 911. documented in this encounter [facility] 07-09-2022 Nurse Note In chair, encouraged incentive spirometer. [facility] 07-09-2022 Nurse Note Patient awakens for assessment. She is sleepy but follows all commands. She answers all questions appropriately. Neuro checks are within normal limits. She is oriented x4. Able to demonstrate use of call light. Bed alarm on for safety. Dr Ontiveros updated. [facility] 07-08-2022 Note Problem: Pain - Adul t Goal: Verbalizes/displays adequate comfort level or baseline comfort level Outcome: Progressing Problem: Safety - Adult Goal: Free from fall injury Outcome: Progressing [facility] 07-08-2022 Plan of care note Problem: Pain - Adult Goal: Verbalizes/displays adequate comfort level or baseline comfort level Outcome: Progressing Problem: Safety - Adult Goal: Free from fall injury Outcome: Progressing [facility] 07-08-2022 Note Sister Maia update d on plan of care. [facility] 07-08-2022 Note Formatting of this n ote might be different from the original. Care Managment Initial Assessment Date: 07/08/2022 Patient Name: Kathy Puri : 1950 Patient Information Source of Information: Patient Cognition/Language: WFL - Within Functional Limits Permission given to speak with patient counter sales representative/caregiver as indicated: Confirmation of Payer with patient/family: Yes Payer Name: [facility] Dual [place]: No Confirmation of Primary Care Physician: Confirmed [...] Living Prescription Coverage: Yes Pharmacy Used: [facility] Medication Management: (picks up rx, student fills [...] needs. TCC to follow. Jackie Kelly RN [facility] 07-08-2022 Note Formatting of this n ote might be different from the original. Care Managment Initial Assessment Date: 07/08/2022 Patient Name: Kathy Puri : 1950 Patient Information Source of Information: Patient Cognition/Language: WFL - Within Functional Limits Permission given to speak with patient counter sales representative/caregiver as indicated: Confirmation of Payer with patient/family: Yes Payer Name: [facility] Dual : No Confirmation of [...] Living Prescription Coverage: Yes Pharmacy Used: [facility] Medication Management: (picks up rx, student fills [...] needs. TCC to follow. 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 She will have assistance from her mother [...] of Anemia, Anxiety, Arrhythmia, Arthritis, Cancer (CMS/HCC) ([facility]), CHF (congestive heart failure) (CMS/HCC) ([facility]), CKD (chronic kidney disease), COPD (chronic obstructive pulmonary disease) ([facility]), Depression, GERD (gastroesophageal reflux disease), Heart valve disease, Hyperlipidemia, Hypertension, Irritable bowel syndrome, Joint pain, Myocardial infarction (CMS/HCC) ([facility]), Pacemaker, PAD (peripheral artery disease) ([facility]), and Sleep apnea. has a past surgical [...] With device?: No Transfer Assistance: Independent Active Ordnance Engineer: Yes Mode of Transportation: Car Additional [...] Other exercises 1: IS x 10 to 0597-3074 ml Plan Times per Week: 5 Times per Day: Daily Plan Weeks: 2 Current Treatment Recommendations: Strengthening, Func (more content not included)... [facility] 07-08-2022 Nurse Note Sister Maia updated on plan of care. [facility] 07-08-2022 Plan of care note Problem: Pain - Adult Goal: Verbalizes/displays adequate comfort level or baseline comfort level Outcome: Progressing Problem: Safety - Adult Goal: Free from fall injury Outcome: Progressing Problem: Discharge Planning Goal: Discharge to home or other facility with appropriate resources Outcome: Progressing [facility] 07-07-2022 Note Problem: Pain - Adul t Goal: Verbalizes/displays adequate comfort level or baseline comfort level Outcome: Progressing Problem: Safety - Adult Goal: Free from fall injury Outcome: Progressing [facility] 07-07-2022 Plan of care note Problem: Pain - Adult Goal: Verbalizes/displays adequate comfort level or baseline comfort level Outcome: Progressing Problem: Safety - Adult Goal: Free from fall injury Outcome: Progressing [facility] 07-07-2022 Note Department of Surger y - [...] 11 -- 07/06/22 2219 (!) 166/44 36.4 ?C (97.5 ?F) Temporal [...] HYDROmorphone OR HYDROmo (more content not included)... [facility] 07-06-2022 Plan of care note Problem: Pain - Adult Goal: Verbalizes/displays adequate comfort level or baseline comfort level Outcome: Progressing Problem: Safety - Adult Goal: Free from fall injury Outcome: Progressing Problem: Discharge Planning Goal: Discharge to home or other facility with appropriate resources Outcome: Progressing T [facility] 07-05-2022 Nurse Note paged in regards to patient elevated BP. T [facility] 07-05-2022 Note Formatting of this n ote might be different from the original. Updated pt's sister over phone that pt is doing well in recovery and will be admitted to 1 C[address] shortly. T [facility] 07-05-2022 Note Formatting of this n ote might be different from the original. Updated pt's sister over phone that pt is doing well in recovery and will be admitted to [facility] shortly. [facility] 07-05-2022 Note Patient: Kathy tierney Procedure Summary Date: 07/05/22 Room / Location: [facility] Operating Room Anesthesia Start: 730 Anesthesia Stop: [...] once all PACU criteria has been met. [facility] 07-05-2022 Note Patient: Kathy tierney Procedure Summary Date: 07/05/22 Room / Location: [facility] [place] Operating Room Anesthesia Start: 730 Anesthesia Stop: [...] factors for PONV (4556F) Patient received at leaset 2 prophylactic Rx PONV anti-emtic agents of [...] start time until discharged from PACU (G2149) MIPS #[id number] Anesthesiology Smoking Abstinence The patient is [...] opportunity for questions and acknowledgement of understanding. [facility] 07-05-2022 Note Formatting of this n ote might be different from the original. maia Marcum updated via phone call on pt status. [facility] 07-05-2022 Note Formatting of this n ote might be different from the original. maia Marcum updated via phone call on pt status. [facility] 07-05-2022 Note Airway Date/Time: 07/05/2022 7:49 AM Urgency: scheduled Airway not difficult General Information and Staff Patient location during procedure: Procedural Anesthesiologist: Elgin Castro MD Resident/CENTRAL OFFICE EQUIPMENT ENGINEER: Antonio Mast APRN - CENTRAL OFFICE EQUIPMENT ENGINEER Performed: SRNA Indications and Patient Condition Indications [...] at approach: 1 Ventilation between attempts: none [facility] 07-05-2022 Note OPERATIVE REPORT DATE OF SERVICE: 07/05/2022 PRE-PROCEDURE DIAGNOSIS: Infrarenal Abdominal aortic aneurysm POST-PROCEDURE DIAGNOSIS: As above PROCEDURE PERFORMED: 1) Bilateral open femoral artery exposure for delivery of endoprosthesis 2) Endovascular infrarenal abdominal aortic aneurysm repair with 29 mm Endologix [place] endograft 3) Placement of 10 mm x [...] SPECIMENS: None IMPLANTS: 1) 29 mm Endologix [place] Main body 2) 14 x 120 mm Ovation iX left iliac limb 3) 16 x 120 mm Ovation iX right iliac limb 4) Palmaz XL stent to Aortic neck 5) 10 x 39 mm [place] [employer] balloon expandable stent placement to [...] technique was used to place a 6 [place] sheath. This was again performed in a similar fashion on the left with placement of an 8 [place] sheath. The patient was then given 6000 [...] abdominal aorta. On the right, a 14 [place] sheath was placed once the graft was [...] final proximal l (more content not included)... [facility] 07-05-2022 Note H&P reviewed. The pa tient was examined and there are no changes [...] were answered. She has elected to proceed. [facility] 07-05-2022 Attending History and physical note [...] seen/examined on 06/26/2022 Procedure Information Date/Time: 07/05/22 8041 Procedures: ENDOVASCULAR REPAIR OF ABDOMINAL AORTIC ANEURYSM OPEN FEMORAL ARTERY EXPOSURE FOR DELIVERY OF ENDOVASCULAR PROSTHESIS (Bilateral) Location: [facility] Operating Room Surgeons: Lana Parker MD Chief [...] ovarian No date: CHF (congestive heart failure) ([facility]) ([facility]) No date: CKD (chronic kidney disease) No date: COPD (chronic obstructive pulmonary disease) ([facility]) No date: Depression No date: GERD (gastroesophageal reflux disease) No date: Heart valve disease No date: Hyperlipidemia No date: Hypertension No date: Irritable bowel syndrome No date: Joint pain No date: Myocardial infarction ([facility]) ([facility]) No date: Pacemaker No date: PAD (peripheral artery disease) ([facility]) No date: Sleep apnea Comment: uses CPAP [...] OP cardiology 3) CAD - Hx of MD and stent insertion 1998, 2002 - Managed on Eliquis, statin, metoprolol, Plavix, Imdur - Continue Plavix per surgeon. Hold Eliquis x 2 days prior to procedure per surgeon. 4) COPD - Continue inhalers - Patient feels her symptoms are well controlled 5) CHF - Managed on Lasix, potassium supplement - 06/11/22 EF 30% - Follows OP cardiology 6) Tachy-erica syndrome - Pacemaker placed 2020/14/22 Pacemaker check - full report scanned into [...] Screen and Sleep Clinic Referral (if appropriate) [employer] Work Phone: 07-05-2022 Note Formatting of this n ote might be different from the original. OPERATIVE REPORT DATE OF SERVICE: 07/05/2022 PRE-PROCEDURE DIAGNOSIS: Infrarenal Abdominal aortic aneurysm POST-PROCEDURE DIAGNOSIS: As above PROCEDURE PERFORMED: 1) Bilateral open femoral artery exposure for delivery of endoprosthesis 2) Endovascular infrarenal abdominal aortic aneurysm repair with 29 mm Endologix [place] endograft 3) Placement of 10 mm x 37 mm Balloon expandable stent placement to the right common iliac limb 4) Palmaz stent placement to the infrarenal aortic neck SURGEON: Lnaa Parker MD ASSISTANTS: Jolynn Meza APRN-SCHOOL PLANT CONSULTANT, Rjai Ontiveros MD (PGY-1), Brian Nuñez MD FINDINGS: [...] SPECIMENS: None IMPLANTS: 1) 29 mm Endologix [place] Main body 2) 14 x 120 mm Ovation iX left iliac limb 3) 16 x 120 mm Ovation iX right iliac limb 4) Palmaz XL stent to Aortic neck 5) 10 x 39 mm [place] balloon expandable stent placement to [...] technique was used to place a 6 [place] sheath. This was again performed in a similar fashion on the left with placement of an 8 [place] sheath. The patient was then given 6000 [...] abdominal aorta. On the right, a 14 [place]i sheath was placed once the graft was [...] delivery system was removed and a 16 [place] sheath was placed on the left. As [...] with passing anything larger than a 12 [place] catheter from the right, the decision was [...] placed and deployed to graft apposition. A [place] catheter was then positioned in the abdominal [...] the case. Lana Parker MD Vascular Surgery [facility] 07-05-2022 Note Formatting of this n ote is different from the original. Date: 07/05/2022 Location: [facility] OR Name: Kathy Puri, : 1950, Diagnosis Pre-op Diagnosis * Infrarenal abdominal aortic aneurysm, without rupture (HCC) [I71.43] Post-op Diagnosis * Infrarenal abdominal aortic aneurysm, without rupture (HCC) [I71.43] Procedures ENDOVASCULAR REPAIR OF ABDOMINAL AORTIC ANEURYSM 57523 - SC EVASC RPR DPLMNT [id number] NDGFT OPEN FEMORAL ARTERY EXPOSURE FOR DELIVERY OF ENDOVASCULAR PROSTHESIS 09214 - SC OPN FEM ART EXPOS DLVR EVASC PROSTH [...] STENT CARLOS 10MM 7FR 25MM 135CM - [id number] Implanted Staff: Rivet Sticker: Georgina Daley RN Nurse Practitioner: MAY Chiu CNP Relief Scrub: Fercho Crystal Scrub Person: Ladny David Findings: See full op note for [...] (two hours if receiving Vancomycin or flouroquinolone) [facility] 07-05-2022 Note Formatting of this n ote might be different from the original. OPERATIVE REPORT DATE OF SERVICE: 07/05/2022 PRE-PROCEDURE DIAGNOSIS: Infrarenal Abdominal aortic aneurysm POST-PROCEDURE DIAGNOSIS: As above PROCEDURE PERFORMED: 1) Bilateral open femoral artery exposure for delivery of endoprosthesis 2) Endovascular infrarenal abdominal aortic aneurysm repair with 29 mm Endologix [place] endograft 3) Placement of 10 mm x [...] SPECIMENS: None IMPLANTS: 1) 29 mm Endologix [place] Main body 2) 14 x 120 mm Ovation iX left iliac limb 3) 16 x 120 mm Ovation iX right iliac limb 4) Palmaz XL stent to Aortic neck 5) 10 x 39 mm [place] balloon expandable stent placement to [...] technique was used to place a 6 [place] sheath. This was again performed in a similar fashion on the left with placement of an 8 [place]mani sheath. The patient was then given 6000 units of heparin for systemic anticoagulation. This was redosed throughout the case as needed. On the right, a [place] catheter was used to obtain access to [...] abdominal aorta. On the right, a 14 [place] sheath was placed once the graft was [...] delivery system was removed and a 16 [place]mani sheath was placed on the left. As [...] with passing anything larger than a 12 [place] catheter from the right, the decision was [...] placed and deployed to graft apposition. A [place] catheter was then positioned in the abdominal [...] the case. Lana Parker MD Vascular Surgery [facility] 07-05-2022 Note Formatting of this n ote is different from the original. Date: 07/05/2022 Location: [facility] OR Name: Kathy Puri, : 1950, Diagnosis Pre-op Diagnosis * Infrarenal abdominal aortic aneurysm, without rupture (HCC) [I71.43] Post-op Diagnosis * Infrarenal abdominal aortic aneurysm, without rupture (HCC) [I71.43] Procedures ENDOVASCULAR REPAIR OF ABDOMINAL AORTIC ANEURYSM 51260 - SC EVASC RPR DPLMNT [id number] NDGFT OPEN FEMORAL ARTERY EXPOSURE FOR DELIVERY OF ENDOVASCULAR PROSTHESIS 07754 - SC OPN FEM ART EXPOS DLVR EVASC PROSTH [...] STENT CARLOS 10MM 7FR 25MM 135CM - [id number] Implanted Staff: Rivet Sticker: Georgina Daley RN Nurse Practitioner: Jolynn Meza APRN - SCHOOL PLANT CONSULTANT Relief Scrub: Fercho Crystal Scrub Person: Landy [...] (two hours if receiving Vancomycin or flouroquinolone) [facility] 07-05-2022 History and physical note H&P reviewed. [...] FOR DELIVERY OF ENDOVASCULAR PROSTHESIS (Bilateral) Location: [facility] Operating Room Surgeons: Lana Parker MD Chief [...] afib No date: Arthritis No date: Cancer ([facility]) ([facility]) Comment: ovarian No date: CHF (congestive heart failure) ([facility]) ([facility]) No date: CKD (chronic kidney disease) No date: COPD (chronic obstructive pulmonary disease) ([facility]) No date: Depression No date: GERD (gastroesophageal reflux disease) No date: Heart valve disease No date: Hyperlipidemia No date: Hypertension No date: Irritable bowel syndrome No date: Joint pain No date: Myocardial infarction ([facility]) ([facility]) No date: Pacemaker No date: PAD (peripheral artery disease) ([facility]) No date: Sleep apnea Comment: uses CPAP [...] OP cardiology 3) CAD - Hx of MD and stent insertion 1998, 2002 - Managed [...] Referral (if appropriate) documented in this encounter [facility] 06-28-2022 Telephone encounter Note I have tried to call patient back for 2 days her voice mail box is full. At no point in her OV or in surgical scheduling did she mention a jail. I find nothing in her chart. Trying to find out what facility called. [facility] 06-28-2022 Miscellaneous Notes I have tried to call patient back for 2 days her voice mail box is full. At no point in her OV or in surgical scheduling did she mention a jail. I find nothing in her chart. Trying to find out what facility called. ALYSSIA Spoke with Matt at nursing facility that patient resides in, nurse asking what medications are to be held/continued. Below information given SURGERY: ENDOVASCULAR REPAIR OF AAA DATE OF SURGERY: 07/05/2022 7:30 AM PRE TESTIN06/26/2022 12:00 AUTH #: [id number] CARDIAC CLEARANCE YES CARDIAC DR TREVIÑO , PULMONARY DR TOBAR 05/28/2022 POST OP OR OV: 07/17/2022 10:15 MEDS TO HOLD: ELIQUIS HOLD 48 HOURS PRIOR, THE MORNING OF SURGERY HOLD FUROSEMIDE MEDS TO CONTINUE: PLAVIX, OTHERS documented in this encounter [facility] 06-27-2022 Telephone encounter Note ALYSSIA Spoke with Matt at nursing facility that patient resides in, nurse asking what medications are to be held/continued. Below information given [facility] 06-27-2022 Miscellaneous Notes ALYSSIA Spoke with Matt at nursing facility that patient resides in, nurse asking what medications are to be held/continued. Below information given SURGERY: ENDOVASCULAR REPAIR OF AAA DATE OF SURGERY: 07/05/2022 7:30 AM PRE TESTIN06/26/2022 12:00 AUTH #: [id number] CARDIAC CLEARANCE YES CARDIAC DR TREVIÑO , PULMONARY DR TOBAR 05/28/2022 POST OP OR OV: 07/17/2022 10:15 MEDS TO HOLD: ELIQUIS HOLD 48 HOURS PRIOR, THE MORNING OF SURGERY HOLD FUROSEMIDE MEDS TO CONTINUE: PLAVIX, OTHERS documented in this encounter [facility] 06-26-2022 Note Patient: Kathy tierney Procedure Information Date/Time: 07/05/22729 Procedures: ENDOVASCULAR REPAIR OF ABDOMINAL AORTIC ANEURYSM OPEN FEMORAL ARTERY EXPOSURE FOR DELIVERY OF ENDOVASCULAR PROSTHESIS (Bilateral) Location: [facility] Operating Room Surgeons: Lana Parker MD Past Medical History: Past Medical History: No date: Anemia No date: Anxiety No date: Arrhythmia Comment: afib No date: Arthritis No date: Cancer ([facility] ([facility]) Comment: ovarian No date: CHF (congestive heart failure) ([facility]) ([facility]) No date: CKD (chronic kidney disease) No date: COPD (chronic obstructive pulmonary disease) ([facility]) No date: Depression No date: GERD (gastroesophageal reflux disease) No date: Heart valve disease No date: Hyperlipidemia No date: Hypertension No date: Irritable bowel syndrome No date: Joint pain No date: Myocardial infarction ([facility]) ([facility]) No date: Pacemaker No date: PAD (peripheral artery disease) ([facility]) No date: Sleep apnea Comment: uses CPAP [...] work up ECHO and EF:Echo 06/11/22 ?Pacemaker [employer] scanned into media last check 02/2022 No echocardiogram results found for the past 14 days No results found for this or any previous visit. [facility] 06-26-2022 Note Comprehensive PreSur gical History and Physical Name: Kathy Puri : 1950 (Age-72 y.o.) Date of Service: Pt seen/examined on 06/26/2022 Procedure Information Date/Time: 07/05/22 0730 Procedures: ENDOVASCULAR REPAIR OF ABDOMINAL AORTIC ANEURYSM OPEN FEMORAL ARTERY EXPOSURE FOR DELIVERY OF ENDOVASCULAR PROSTHESIS (Bilateral) Location: [facility] Operating Room Surgeons: Lana Parker MD Chief [...] afib No date: Arthritis No date: Cancer ([facility] ([facility]) Comment: ovarian No date: CHF (congestive heart failure) ([facility]) ([facility]) No date: CKD (chronic kidney disease) No date: COPD (chronic obstructive pulmonary disease) ([facility]) No date: Depression No date: GERD (gastroesophageal reflux disease) No date: Heart valve disease No date: Hyperlipidemia No date: Hypertension No date: Irritable bowel syndrome No date: Joint pain No date: Myocardial infarction ([facility]) ([facility]) No date: Pacemaker No date: PAD (peripheral artery disease) ([facility]) No date: Sleep apnea Comment: uses CPAP [...] PO) Take 1 (more content not included)... [facility] 06-26-2022 Note Comprehensive PreSur gical History and Physical Name: Kathy Puri : 1950 (Age-72 y.o.) Date of Service: Pt seen/examined on 06/26/2022 Procedure Information Date/Time: 07/05/22 0630 Procedures: ENDOVASCULAR REPAIR OF ABDOMINAL AORTIC ANEURYSM OPEN FEMORAL ARTERY EXPOSURE FOR DELIVERY OF ENDOVASCULAR PROSTHESIS (Bilateral) Location: [facility] Operating Room Surgeons: Lana Parker MD Chief [...] afib No date: Arthritis No date: Cancer ([facility]) ([facility]) Comment: ovarian No date: CHF (congestive heart failure) ([facility]) ([facility]) No date: CKD (chronic kidney disease) No date: COPD (chronic obstructive pulmonary disease) ([facility]) No date: Depression No date: GERD (gastroesophageal reflux disease) No date: Heart valve disease No date: Hyperlipidemia No date: Hypertension No date: Irritable bowel syndrome No date: Joint pain No date: Myocardial infarction (CMS/HCC) (HCC) No date: Pacemaker No date: PAD (peripheral [...] PO) Take 1 (more content not included)... [facility] 06-14-2022 Telephone encounter Note SURGERY: ENDOVASCULAR REPAIR OF AAA DATE OF SURGERY: 07/05/2022 7:30 AM PRE TESTIN06/26/2022 12:00 AUTH #: [id number] CARDIAC CLEARANCE YES CARDIAC DR TREVIÑO , PULMONARY DR TOBAR 05/28/2022 POST OP OR OV: 07/17/2022 10:15 MEDS TO HOLD: ELIQUIS HOLD 48 HOURS PRIOR, THE MORNING OF SURGERY HOLD FUROSEMIDE MEDS TO CONTINUE: PLAVIX, OTHERS [facility] 06-13-2022 Telephone encounter Note Received final cardiac clearance and copy of Echo done 06/11/22. Dr. TreviñoCmwsn-Tqizpysuusmc-tfuukgc patient on 06/12/22 Dr. Zack TobarAeznfk-Gxbwgfsgx-Qecmomr patient on 05/28/22. Dr. Parker reviewed the clearances and signed off on them. I will reach out to patient to schedule the surgery. [facility] 06-13-2022 Miscellaneous Notes Received final cardiac clearance and copy of Echo done 06/11/22. Dr. TreviñoCmbul-Wfryfpeatmkq-vcoocis patient on 06/12/22 Dr. Zack TobarAgpozn-Guzwqtfzy-Vuixlmd patient on 05/28/22. Dr. Parker reviewed the [...] to speak with Dr. Parker again. Patient# [phone] Clearance has been received from Dr. Treviño's [...] now on 06/11/22 at 2:00 pm at [facility]. documented in this encounter [facility] 06-12-2022 Telephone encounter Note Call placed to Dr. Treviño's office and spoke with Adeline to make sure patient had the Echo done on 06/11/22. Patient did complete the Echo per Adeline and our form for Cardiac Clearance/Optimization was re-faxed for confirmation after new Echo complete. Pending final outcome. [facility] 05-31-2022 Telephone encounter Note Noted will await Echocardiogram results. [facility] 05-30-2022 Telephone encounter Note I called the [...] questions were answered to the patient's satisfaction. [facility] Work Phone: 05-30-2022 Telephone encounter Note Patient is going to be scheduled for: Endovascular Repair Of Abdominal Aortic Aneurysm, pending out come of Echocardiogram on 06/11/[address] Treviño. Patient is asking if she really has to have this surgery? She would like to speak with Dr. Parker again. Patient# [phone] [facility] 05-30-2022 Telephone encounter Note Clearance has been [...] now on 06/11/22 at 2:00 pm at [facility]. [facility] 05-27-2022 Note Vascular Surgery Out patient Consultation Chief Complaint Patient presents with New Patient (Dr Marroquin) Eval AAA; CTA 02/26/22 (in Pacs-measured by [employer] rep) Reason for Consult: Abdominal aortic aneurysm [...] disease) Hyperlipidemia Hypertension PAD (peripheral artery disease) ([facility]) Past SurgicalHistory: Past Surgical History: Procedure Laterality [...] file Food Insecurity: (more content not included)... [facility] 05-27-2022 History of Present illness Narrative [...] disease) Hyperlipidemia Hypertension PAD (peripheral artery disease) ([facility]) Past SurgicalHistory: Past Surgical History: Procedure Laterality [...] new ECHO had been ordered by her big machine consultant in [place] however she did not show for the appointment. This will need to be completed prior to consideration of intervention. We will also reach out to her director of teenage activities in [place] as she has had a recent evaluation however these records are unavailable. Should she be a suitable candidate from a cardiac and pulmonary standpoint, we will plan to proceed with EVAR. All questions were answered. Lana Parker MD Vascular Surgery documented in this encounter [facility] 05-16-2022 Note Received referral fr om Dr Marroquin for Eval AAA. CTA 02/26/22 images in Pacs Measured by [facility]. Have tried to reach patient several times: 05/07/22; 05/10/22; 05/16/22 Voice Mailbox is full. To be scheduled with Dr Parker or Dr Whiting. Scanned into [facility] 10-10-2021 Note Patient Outreach (IN TMMN) KATHY PURI ([id number]) 1950 F Date Time Provider Department 10/10/21 CATHI HAYES During your visit today, we recorded the following information about you: Allergies As of Date: 10/10/2021 Noted Allergy Reaction LISINOPRIL 05/31/2019 14 - Other: See Comments Comments: Numbness to tongue Date Reviewed: 12/27/2020 Reviewed by: Yuly Galloway, CT - Fully Assessed Visit Diagnosis:Encounter for screening mammogram for breast cancer [Z12.31] Order(s):[facility] SCREENING [[id number]] Order #: [id number] FUTURE Prescriptions as of 10/15/2021 - clopidogrel [...] twice daily. Added at recent hospital stay health system. - BIPAP Initiate BiPAP @ 9/5 cm [...] Encounter Status:Closed by SURY RANDHAWA on 10/15/21 [facility] 06-23-2021 Miscellaneous Notes All scheduled in June Please call patient to schedule US ABB prior to appt 06/26/21 Please change her to an established patient she has seen a previous vascular provider in our office Thank you documented in this encounter [facility] 05-16-2021 Miscellaneous Notes Left message to call office. 05/16/2021 2:03 PM. Virgen Britton LPN Patient is due for follow-up. Please assist in scheduling. Aminata Barrera APRN.CNP [facility] 10/16/20 NOV not scheduled at this [...] Yoanna Morris Pss documented in this encounter [facility] 11-22-[address] On the way. Dianne Mccullough LPN Please pull ER visit from yesterday. Thanks, Aminata Barrera APRN.KRALA documented in this encounter [facility] 09-19-2020 Miscellaneous Notes Second call placed to [...] Florencia Hwang LPN documented in this encounter [facility] 08-22-2020 Miscellaneous Notes Thanks. Hospital notes collected and placed in you inbox on desk. Will see when gets released and schedule office visit. Reviewed. Please pull ER report tomorrow and will schedule OV once released from hospital. Daughter and Argelia FRANCE, want's pcp to know, first of all, patient just left via squad to [facility] ER, for c/o CP. Depending on how that goes, Argelia anticipates patient will f/u with pcp. Wanted pcp to know, patient is having terrible anxiety: unable to sleep, and it is getting the best of her. States something needs to be done. Patient saw card game operator yesterday, who advised daughter, patient needs to contact pcp to treat her anxiety. Daughter states she does not want the treatment to be ativan or xanax. Wanted to give pcp a heads up that this is something that needs to be addressed in the near future. documented in this encounter [facility] documented as of this encounter (statuses as of 05/16/2021) [facility]09-21-2016 History of Past illness Narrative* Problem Noted [...] of this encounter (statuses as of 06/26/2021) [facility] History of Past illness Narrative* Problem Noted [...] of this encounter (statuses as of 08/15/2021) [facility] History of Past illness Narrative* Problem Noted [...] of this encounter (statuses as of 08/23/2021) [facility] History of Past illness Narrative* Problem Noted [...] of this encounter (statuses as of 10/05/2021) [facility] History of Past illness Narrative* Problem Noted [...] of this encounter (statuses as of 10/15/2021) [facility] note* Diagnosis Encounter for screening mammogram for breast cancer documented in this encounter [facility] note* Diagnosis Infrarenal abdominal aortic aneurysm (AAA) without rupture- Primary [facility] Diagnosis Infrarenal abdominal aortic aneurysm (AAA) without rupture (HCC)- Primary Infrarenal abdominal aortic aneurysm, without rupture (HCC) [facility]* Diagnosis Preop testing Unspecified pre-operative examination Infrarenal abdominal aortic aneurysm, without rupture (HCC) [facility] Diagnosis Infrarenal abdominal aortic aneurysm (AAA) without rupture (HCC)- Primary Infrarenal abdominal aortic aneurysm (AAA) without rupture (HCC) [facility]* Diagnosis Infrarenal abdominal aortic aneurysm (AAA) without rupture (HCC)- Primary Status post endovascular aneurysm repair (EVAR) [facility]* Diagnosis Status post endovascular aneurysm repair (EVAR)- Primary Pre-procedure lab exam Pre-procedural laboratory examination documented [facility]* Diagnosis 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) [facility] (narrative)* Diagnostic Procedure Only (Routine) - Pending Review Specialty Diagnoses / Procedures Referred By Contac t Referred To Contact [facility] Diagnoses Encounter for screening mammogram for breast cancer Procedures [facility] SCREENING SCREENING MAMMOGRAPHY BI 2-VIEW BREAST INC CAD Cathi Hayes MD [address] [place] [address] [facility] [address] [place] [address] Referral ID Status Reason Start Date Expiration Date Visits Requested Visits Authorized [id number] Pending Review Auto-Generat ed Referral 10/10/2021 11/09/2022 1 1 [facility] Advance Directives Documents on File Type Date Recorded Patient Media Manager Expl anation Advance Directive(s) 09/08/2012 10:30 AM Documents on File Type Date Recorded Patient Media Manager Expl anation Advance Directive(s) 09/08/2012 10:30 AM Latest Code Status on File Code Status Date Activated Date Inactivated Comments Full Code 07/05/2022 2:16 PM 07/10/2022 4:06 PM Code Status History Code Status Date Activated Date Inactivated Comments Full Code 07/05/2022 6:13 AM 07/05/2022 2:16 PM Latest Code Status on File Code Status Date Activated Date Inactivated Comments Full Code 05/07/2023 4:48 AM 05/07/2023 7:15 PM Code Status History Code Status Date Activated Date Inactivated Comments Full Code 07/05/2022 2:16 PM 07/10/2022 4:06 PM Full Code 07/05/2022 6:13 AM 07/05/2022 2:16 PM Reason for Referral Specialty Diagnoses / Procedures Referred By Contac t Referred To Contact Radiology Diagnoses Infrarenal abdominal aortic aneurysm (AAA) without rupture (HCC) Status post endovascular aneurysm repair (EVAR) Procedures CTA abdomen pelvis angiogram w and/or wo IV contrast Lana Parker MD [address] [place] [address] Referral ID Status Reason Start Date Expiration Date V isits Requested Visits Authorized [id number] Pending Review 07/24/2022 01/20/2023 1 1 Specialty Diagnoses / Procedures Referred By Contac t Referred To Contact Radiology Diagnoses Status post endovascular aneurysm repair (EVAR) Procedures CTA abdomen pelvis angiogram w and/or wo IV contrast Lana Parker MD [address] [place] [address] Referral ID Status Reason Start Date Expiration Date V isits Requested Visits Authorized [id number] Pending Review 08/19/2022 02/15/2023 1 1 Summary [...] or prosecute any alcohol or drug abuse [facility] the event this information is protected by the Federal Confidentiality of Alcohol and Drug Abuse Patient Records regulations: The Federal rules restrict any use of the information to criminally investigate or prosecute any alcohol or drug abuse patient.[facility] the event this information is protected by the Federal Confidentiality of Alcohol and Drug Abuse Patient Records regulations: The Federal rules restrict any use of the information to criminally investigate or prosecute any alcohol or drug abuse patient.[facility] the event this information is protected by the Federal Confidentiality of Alcohol and Drug Abuse Patient Records regulations: The Federal rules restrict any use of the information to criminally investigate or prosecute any alcohol or drug abuse patient.[facility] the event this information is protected by the Federal Confidentiality of Alcohol and Drug Abuse Patient Records regulations: The Federal rules restrict any use of the information to criminally investigate or prosecute any alcohol or drug abuse patient.[facility] the event this information is protected by the Federal Confidentiality of Alcohol and Drug Abuse Patient Records regulations: The Federal rules restrict any use of the information to criminally investigate or prosecute any alcohol or drug abuse patient.[facility] Reason for Visit (unrecogniz ed section and content) Reason Comments Appointment Reason Comments Anxiety Reason Comments Patient Question Gabapentin Reason Comments Request Outside Medical Records Reason Comments New Patient (Dr Marroquin) Eval AAA ; CTA 02/26/22 (in Pacs-measured by [employer] rep) Reason Onset Date Comments Advice Only 05/30/2022 Rescheduling of echocardiogram Surgery Scheduling 05/30/2022 Wants to sandrita sykes with doctor Cardiac Clearance 05/30/2022 RECEIVED PULMONARY CLEARANCE 05/30/2022 RECEIVED Reason Onset Date Comments Surgery Scheduling 06/14/2022 Specialty Diagnoses / Procedures Referred By Contac t Referred To Contact Diagnoses Infrarenal abdominal aortic aneurysm, without rupture (HCC) Infrarenal abdominal aortic aneurysm, without rupture (HCC) [I71.43] Procedures SC EVASC RPR DPLMNT [id number] NDGFT SC OPN FEM ART EXPOS DLVR EVASC PROSTH UNI ENDOVASCULAR REPAIR OF ABDOMINAL AORTIC ANEURYSM OPEN FEMORAL ARTERY EXPOSURE FOR DELIVERY OF ENDOVASCULAR PROSTHESIS Lana Parker MD [address] [facility] [address] [place] [address] [address] [place] [address] Referral ID Status Reason Start Date Expiration Date Visits Re quested Visits Authorized [id number] 1 1 Reason Comments Post-op 1st PO EVAR of AAA 0 07/05/2022 Reason Comments Post-op EVAR 07/05/2022 / Dis cuss CTA 08/08/2024 Reason Comments Heart Problem Pt arrived by EMS fr [facility] (blue sheet) due cardiac issues( AAA leaking) . Upon assessment pt is a&ox3 msps intact - cp - sob - dizziness - n/v - pain. 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 Ector Whiting MD [address] [place] [address] [address] [place] [address] Referral ID Status Reason Start Date Expiration Date Visits Re quested Visits Authorized [id number] 1 1 Care Teams (unrecognized sec tion and content) French Edge Operator Relationship Specialty Start Date End Date Cathi Hayes MD [address], [place] [id number] PCP - General Family Practice 05/16/21 French Edge Operator Relationship Specialty Start Date End Date Cathi Hayes MD [address], [place] [id number] PCP - General Family Practice 01/29/17 12/24/20 Ector Jewell(Historical), PCP - General Family Practice 12/25/20 Cathi Hayes MD [address] [place] [address] PCP - General Family Practice 05/16/21 French Edge Operator Relationship Specialty Start Date End Date Cathi Hayes MD [address] [place] [address] PCP - General Family Practice 01/29/17 12/24/20 Ector Jewell(Historical)MD PCP - General Family Practice 12/25/20 Cathi Hayes MD [address] [place] [address] PCP - General Family Practice 05/16/21 French Edge Operator Relationship Specialty Start Date End Date Ctahi Hayes MD [address] [place] [address] PCP - General Family Practice 05/16/21 French Edge Operator Relationship Specialty Start Date End Date Alexandre Ayoub MD [address] [place] [address] PCP - General 05/27/22 Lana Parker MD [address] [facility] [address] [place] [address] Consulting Physician Vascular Surgery 05/27/22 French Edge Operator Relationship Specialty Start Date End Date Alexandre Ayoub MD [address] [place] [address] PCP - General Telephone Clerk Telegraph Office 05/27/22 Lana Parker MD [address] [place] [address] Surgeon Vascular Surgery 05/27/22 [place] [address] [employer] Processing Supervisor Internal Medicine Cardiovascular Disease 05/28/22 Zack Tobar [address] [place] [address] Rehabilitation Director Pulmonology 05/28/22 Sharlene Moffett -Device nurse at Dr Treviño's Office 05/29/22 French Edge Operator Relationship Specialty Start Date End Date Alexandre Ayoub MD [address] [place] [address] PCP - General Telephone Clerk Telegraph Office 05/27/22 Lana Parker MD [address] [facility] 2 [place] [address] Surgeon Vascular Surgery 05/27/22 Jaime Treviño [address] [facility] [place] [address] [employer] Processing Supervisor Internal Medicine Cardiovascular Disease 05/28/[address] [place] [address] Rehabilitation Director Pulmonology 05/28/22 Sharlene Moffett -Device nurse at Dr Treviño's Office 05/29/22 French Edge Operator Relationship Specialty Start Date End Date Alexandre Ayoub MD [address] [place] [address] PCP - General Telephone Clerk Telegraph Office 05/27/22 Lana Parker MD [address] [facility] [address] [place] [address] Surgeon Vascular Surgery 05/27/22 Jaime Treviño [address] [place] [address] [employer] Potato Processing Supervisor Internal Medicine Cardiovascular Disease 05/28/22 Zack Tob[address] [place] [address] Rehabilitation Director Pulmonology 05/28/22 Sharlene Moffett -Device nurse at [facility] Treviño[facility] 05/29/22 French Edge Operator Relationship Specialty Start Date End Date Alexandre Ayoub MD [address] [place] [address] PCP - General Telephone Clerk Telegraph Office 05/27/22 Lana Parker MD [address] [address] Surgeon Vascular Surgery 05/27/22 Jaime Treviño [address] [facility] [place] [address] [employer] Supervisor Internal Medicine Cardiovascular Disease 05/28/22 [place] [address] Rehabilitation Director Pulmonology 05/28/22 Sharlene Moffett -Device nurse at Dr Treviño's Office 05/29/22 French Edge Operator Relationship Specialty Start Date End Date Alexandre Ayoub MD [address] [place] [address] PCP - General Telephone Clerk Telegraph Office 05/27/22 Lana Parker MD [address] [address] Surgeon Vascular Surgery 05/27/22 Jaime Treviño [address] [place] [facility] [place] [address] [employer] Processing Supervisor Internal Medicine Cardiovascular Disease 05/28/22 Zack Tobar [address] [place] [address] Rehabilitation Director Pulmonology 05/28/22 Sharlene Moffett -Device nurse at Dr Treviño's Office 05/29/22 French Edge Operator Relationship Specialty Start Date End Date Alexandre Ayoub MD [address] [place] [address] PCP - General Telephone Clerk Telegraph Office 05/27/22 Lana Parker MD [address] [facility] 2 [place] [address] Surgeon Vascular Surgery 05/27/22 Jaime Treviño [address] [facility] [place] [address] [employer] Pot[employer] Processing Supervisor Internal Medicine Cardiovascular Disease 05/28/22 Zack Tobar [address] [place] [address] Rehabilitation Director Pulmonology 05/28/22 Sharlene Moffett -Device nurse at Dr Treviño's Office 05/29/22 French Edge Operator Relationship Specialty Start Date End Date Alexandre Ayoub MD [address] [place] [address] PCP - General Telephone Clerk Telegraph Office 05/27/22 Lana Parker MD [address] [facility] [place] [address] Surgeon Vascular Surgery 05/27/22 Pablito Treviñoril [address] [facility] [place] [address] [employer] Processing Supervisor Internal Medicine Cardiovascular Disease 05/28/22 Zack Tobar [address] [place] [address] Rehabilitation Director Pulmonology 05/28/22 Sharlene Moffett -Device nurse at Dr Treviño's Office 05/29/22 French Edge Operator Relationship Specialty Start Date End Date Alexandre Ayoub MD [address] [place] [address] PCP - General Telephone Clerk Telegraph Office 05/27/22 Lana Parker MD [address] [place] [address] Surgeon Vascular Surgery 05/27/22 Jaime Treviño [address] [place] [address] [employer] Processing Supervisor Internal Medicine Cardiovascular Disease 05/28/22 Zack Tobar [address] [facility] [place] [address] Rehabilitation Director Pulmonology 05/28/22 Sharlene Moffett -Device nurse at Dr Treviño's Office 05/29/22 French Edge Operator Relationship Specialty Start Date End Date Alexandre Ayoub MD [address] [place], [place] [address] PCP - General Telephone Clerk Telegraph Office 05/27/22 Lana Parker MD [address] [facility] [address] [place] [address] Surgeon Vascular Surgery 05/27/22 Jaime Treviño [address] [place] [address] [employer] Processing Supervisor Internal Medicine Cardiovascular Disease 05/28/22 Zack Tobar [address] [facility] [place] [address] Rehabilitation Director Pulmonology 05/28/22 Sharlene Moffett -Device nurse [...] Kaur RN) 0126 (Given - Provider: Kayy Kaur RN) HYDROmorphone (Dilaudid) injection 0.5 mg 0.5 mg, [...] Luke RN) 1141 (Given - Provider: Lexis Aguilar, EZEKIEL) sodium chloride 0.9 % infusion 5-250 mL/hr, [...] contact provider if no further options ordered.
Scheduled Medication Order 05/05/2023 05/06/2023 05/07/2023 amiodarone (Pacerone) tablet 200 mg 200 mg, Oral, Daily, First dose on Fri05/07/23 at 0900 0801 (Given - Provid er: Jane Coates RN) amLODIPine (Norvasc) tablet 2.5 mg 2.5 mg, Oral, Daily, First dose on Fri05/07/23 at 0800 0801 (Given - Provid er: Jane Coates RN) apixaban (Eliquis) tablet 5 mg 5 mg, Oral, 2 times daily, First dose on Fri05/07/23 at 1300, Anticoagulant 1317 (Given - Provid er: Sana Thibodeaux RN) ascorbic acid (Vitamin C) tablet 500 mg 500 mg, Oral, Daily, First dose on Fri05/07/23 at 0800 1317 (Given - Provid er: Sana Thibodeaux RN) atorvastatin (Lipitor) tablet 40 mg 40 mg, Oral, Daily, First dose on Fri05/07/23 at 0900 1316 (Given - Provid er: Sana Thibodeaux RN) busPIRone (Buspar) tablet 10 mg 10 mg, Oral, 3 times daily, First dose on Fri05/07/23 at 0900 0801 (Given - Provid er: Jane Coates RN)1317 (Not Given - Provider: Sana Thibodeaux RN - Reason: Patient/family refused - Comment: states she does not take 3 times a day. did not want.) cefTRIAXone (Rocephin) 1,000 mg in sodium chloride 0.9 % 50 mL IVPB Mini-Bag Plus (COMPLETED) 1,000 mg, IntraVENous, at 100 mL/hr, Administer over 30 Minutes, Once, On Fri05/07/23 at 0025, For 1 dose, Mini-Bag Plus bag, Suspected Indication (Select all that apply): Pneumonia (CAP) 0037 (New Bag - Prov ider: Isaias Prakash RN)0129 (Stopped - Provider: BALJINDER Rodriguez) clopidogrel (Plavix) tablet 75 mg 75 mg, Oral, Nightly, First dose on Fri05/07/23 at 2100 doxycycline (Monodox) capsule 100 mg (CANCELED) 100 mg, Oral, 2 times daily, First dose on Fri05/07/23 at 0025, Take with at least 8 ounces (large glass) of water, do not lie down for 30 minutes after, Suspected Indication (Select all that apply): Pneumonia (CAP) 0139 (Given - Provid er: Tahir Hall, BALJINDER) furosemide (Lasix) tablet 40 mg 40 mg, Oral, 2 times daily, First dose on Fri05/07/23 at 1300 1317 (Given - Provid er: Sana Thibodeaux RN) gabapentin (Neurontin) capsule 300 mg 300 mg, Oral, 2 times daily, First dose on Fri05/07/23 at 1300 1317 (Given - Provid er: Sana Thibodeaux RN) isosorbide mononitrate ER (Imdur) 24 hr tablet 60 mg 60 mg, Oral, Daily, First dose on Fri05/07/23 at 0900, Do not chew or crush ER tablets; may be divided in half. Due to insoluble matrix embedding, ER tablets that are scored may be split. 0801 (Given - Provid er: Jane Coates RN) LORazepam (Ativan) tablet 1 mg 1 mg, Oral, Nightly, First dose on Fri05/07/23 at 2100 melatonin tablet 3 mg 3 mg, Oral, Nightly, First dose on Fri05/07/23 at 2100 metoprolol tartrate (Lopressor) tablet 100 mg 100 mg, Oral, 2 times daily, First dose on Fri05/07/23 at 0900 0801 (Given - Provid er: Jane Coates RN) pantoprazole (ProtoNix) EC tablet 40 mg 40 mg, Oral, Daily, First dose on Fri05/07/23 at 0900, Do not crush, chew, or split. 0801 (Given - Provid er: Jane Coates RN) polyethylene glycol (PEG) 3350 (Miralax) packet 17 g 17 g, Oral, Daily, First dose on Fri05/07/23 at 0900, 1st line for treatment of constipation - give scheduled if no bowel movement in past 24 hours. 1200 (Not Given - Pr ovider: Sana Thibodeaux RN - Reason: Patient/family refused) sodium chloride 0.9 % bolus 1,000 mL (COMPLETED) 1,000 mL, IntraVENous, at 1,000 mL/hr, Administer over 1 Hours, Once, On Fri05/07/23 at 0025, For 1 dose 0037 (New Bag - Prov ider: Isaias Prakash RN)0137 (Due: Stopped - Provider: Isaias Prakash RN) traZODone (Desyrel) tablet 150 mg 150 mg, Oral, Nightly, First dose on Fri05/07/23 at 2100 Continuous Medication Order 05/05/2023 05/06/2023 05/07/2023 lactated Ringer's (LR) infusion (CANCELED) 100 mL/hr, IntraVENous, Continuous, Starting on Fri05/07/23 at 0500 0539 (New Bag - Prov ider: Shirin Luevano RN) PRN Medication Order 05/05/2023 05/06/2023 05/07/2023 acetaminophen (Tylenol) suppository 650 mg(Linked Group 1) 650 mg, Rectal, Every 6 hours PRN, mild pain (1-3), fever, For temp greater than 100.4 F (38 C), Starting on Fri05/07/23 at 0448, Administer if oral route cannot be used. Maximum dose of acetaminophen is 4000 mg from all sources in 24 hours. acetaminophen (Tylenol) tablet 650 mg(Linked Group 1) 650 mg, Oral, Every 6 hours PRN, mild pain (1-3), fever, For temp greater than 100.4 F (38 C), Starting on Fri05/07/23 at 0448, Maximum dose of acetaminophen is 4000 mg from all sources in 24 hours. albuterol 108 (90 Base) MCG/ACT inhaler 2 puff 2 puff, Inhalation, Every 4 hours PRN, wheezing, Starting on Fri05/07/23 at 0447 hydrALAZINE (Apresoline) injection 10 mg 10 mg, IntraVENous, Every 4 hours PRN, high blood pressure, Starting on Fri05/07/23 at 0449, 2nd line for SBP >140, do NOT admin if HR > 100 labetalol (Normodyne,Trandate) injection 10 mg 10 mg, IntraVENous, Every 4 hours PRN, high blood pressure, Starting on Fri05/07/23 at 0449, 1st line for SBP >140, do NOT admin if HR <60 ondansetron (Zofran) injection 4 mg(Linked Group 2) 4 mg, IntraVENous, Every 6 hours PRN, nausea, vomiting, Starting on Fri05/07/23 at 0448, 1st Line. Give IV if patient is unable to take orally. If inadequate response within 60 minutes, proceed to next-line agent or contact provider if no further options ordered. ondansetron ODT (Zofran-ODT) disintegrating tablet 4 mg(Linked Group 2) 4 mg, Oral, Every 8 hours PRN, nausea, vomiting, Starting on Fri05/07/23 at 0448, 1st Line. If inadequate response within 60 minutes, proceed to next-line agent or contact provider if no further options ordered. Patient should allow tablet to dissolve on tongue. Do not remove from blister pack until just before administering. Linked Groups Order Group 1: acetaminophen (Tylenol) tablet 650 mgJump to med 650 mg, Oral, Every 6 hours PRN, mild pain (1-3), fever, For temp greater than 100.4 F (38 C), Starting on Fri05/07/23 at 0448, Maximum dose of acetaminophen is 4000 mg from all sources in 24 hours. Or acetaminophen (Tylenol) suppository 650 mgJump to med 650 mg, Rectal, Every 6 hours PRN, mild pain (1-3), fever, For temp greater than 100.4 F (38 C), Starting on Fri05/07/23 at 0448, Administer if oral route cannot be used. Maximum dose of acetaminophen is 4000 mg from all sources in 24 hours. Group 2: ondansetron ODT (Zofran-ODT) disintegrating tablet 4 mgJump to med 4 mg, Oral, Every 8 hours PRN, nausea, vomiting, Starting on Fri05/07/23 at 0448, 1st Line. If inadequate response within 60 minutes, proceed to next-line agent or contact provider if no further options ordered. Patient should allow tablet to dissolve on tongue. Do not remove from blister pack until just before administering. Or ondansetron (Zofran) injection 4 mgJump to med 4 mg, IntraVENous, Every 6 hours PRN, nausea, vomiting, Starting on Fri05/07/23 at 0448, 1st Line. Give IV if patient is unable to take orally. If inadequate response within 60 minutes, proceed to next-line agent or contact provider if no further options ordered. INFORMATION SOURCE (unrecogn ized section and content) DATE CREATED AUTHOR AUTHOR'S ORGANIZ ATION 05/14/2023 [facility] FOR RECORDS PERTAINING TO PATIENTS WHO [...] BE BASED ON THE PRIMARY CLINICAL RECORDS. [facility]. provides no warranty or guarantee of the accuracy or completeness of information in this document.
[2023-05-16 19:47] LABS: Absolute Lymphocyte Count 0.86 X10^3/uL (0.83-4.51); Absolute Neutrophil Count 5.4 X10^3/uL (2.0-7.7); Basophil# 0.02 X10^3/uL; Basophil% 0.3 % (0-1); Eosinophils% 5.4 % (0-5); Hematocrit 34.2 % (37-47); Hemoglobin 11.3 g/dL (12.0-15.0); Lymphocyte # 0.86 X10^3/ul (0.83-4.51); Lymphocyte % 11.7 % (19-41); Mean Corpuscular Hgb 29.7 pg (27.0-32.0); Mean Corpuscular Volume 89.8 fL (81-99); Mean Platelet Vol. 10.2 fl (6.2-12.0); Monocyte% 8.2 % (0-10); NRBC Flagged by Analyzer 0 % (0-5); Neutrophil # 5.44 X10^3/uL (2.7-7.7); Platelet Count 219 K/mm3 (150-450); RBC Distribution Width CV 13.1 % (11.6-14.6); RBC Distribution Width SD 42.5 fl (35.1-43.9); Red Blood Count 3.81 M/mm3 (4.2-5.4); White Blood Count 7.4 K/mm3 (4.4-11.0)
[2023-05-16] MEDS: 0.9% Normal Saline (500mL Bag) 500 ML 999 ML IV (19:53)
[2023-05-16 19:54] VITALS: BP 109/61; PULSE 71; RESP 16; O2SAT 96
[2023-05-16 20:03] LABS: Anion Gap 3 (5-15); BUN 61 mg/dL (7-18); BUN/Creat Ratio 20.1 RATIO (10-20); Calcium,Total 9.1 mg/dL (8.5-10.1); Chloride 102 mmol/L (98-107); Creatinine, Serum 3.04 mg/dL (0.55-1.02); EST Glomerular Filtration Rate 16 mL/min (>60); Est Glom Filt Rate - Afr Amer 19 mL/min (>60); Estimated Creatinine Clearance 12.84 ml/min; Glucose 101 mg/dL (74-106); Potassium 4.9 mmol/L (3.5-5.1); Sodium Level 134 mmol/L (136-145)
[2023-05-16 20:19] LABS: Mucous, Urine 0 SEEN /hpf (<or=2+); Red Blood Cells-Urine 0 SEEN /hpf (0-5)
[2023-05-16 20:23] LABS: Color, Urine Yellow (Yellow); Glucose, Dipstick Normal (Normal); Ketone-Dipstick Negative (Negative); Leukocyte Esterase-Dipstick 500 /ul (Negative); Nitrite-Dipstick Negative (Negative); Occult Blood-Urine Negative /ul (Negative); Protein-Dipstick Negative (Negative); Urine Bilirubin Dipstick Negative (Negative); Urine Clarity Clear (Clear); Urine Urobilinogen Normal (Normal)
[2023-05-16 20:30] LABS: Bacteria RARE /hpf (None Seen); Squamous Epithelial Cells - UA 0-5 SEEN /hpf (5-10); White Blood Cells 0-5 SEEN /hpf (0-5)
--- NOTE | 2023-05-16 20:33 | HP.PCM.HOS_ITS ---
[facility] - General General Date of Admission: 05/16/23 Date of Service: 05/16/23 Chief Complaint: Elevating Creatinine. [facility] Narrative CURLY MORALES, is a 73 F with a past medical history of essential hypertension; with history of tongue swelling attributed to Lisinopril, hyperlipidemia, hypothyroidism, DM-2; of unknown control, paroxysmal atrial fibrillation; on Eliquis, history of SSS; s/p PPM (2020), chronic diastolic CHF; with preserved LEVF, CAD; s/p NSTEMI with stent (2019), history of AAA, PVD; s/p angioplasty of peripheral vessel with stents to both legs, remote history of rheumatic fever, history of GI bleed, BELLE; on BiPAP, history of tobacco abuse (quit 2020); with subsequent COPD, ZONIA, IBS, depression with anxiety, OA and CKD; stage IV; with baseline serum creatinine of 1.72 mg/dL on April 22, 2023 that then inexplicably nikhil to 2.94 mg/dL on May 06, 2023 and then remained elevated at 2.93 mg/dL on May 15, 2023 who presents to [facility] ER complaining that her PCP discovered her creatinine has now elevated to 3.04 mg/dL which caused her to be sent to the ER for further evaluation and treatme nt. A review of her MAR revealed she is on Lasix 40 mg PO BID with Spironolactone 25 mg PO QD and Metoprolol 100 mg PO BID. She denies nausea, vomiting, diarrhea, dysuria or hematuria. There was no report of recent illness, excessive NSAID use or other new potentially nephrotoxic medications. In the ER she was diagnosed with SAM; in the setting of stage IV CKD suspected to be due at least in part to an Adverse Drug Reaction to coadministration of multiple diuretic agents and she was then admitted to the general medical floor for ongoing care for a stay that is expected to be greater than 48 hours. [facility] Medical History AAA (abdominal aortic aneurysm) without rupture Acute on chronic combined systolic (congestive) and diastolic (congestive) heart failure Acute on chronic diastolic (congestive) heart failure Acute respiratory failure with hypoxia Acute upper GI bleed Anemia Anxiety and depression Arthritis Atherosclerotic heart disease of [place] coronary artery without angina pectoris Atrial fibrillation with RVR Back contusion Bilateral carotid bruits BiPAP (biphasic positive airway pressure) dependence Cancer Cardiology follow-up encounter Carpal tunnel syndrome, bilateral Chest pain Chronic kidney disease, stage 4 (severe) Claudication in peripheral vascular disease Congestive heart failure (CHF) COPD (chronic obstructive pulmonary disease) COVID-19 (01/01/20) Delirium due to another medical condition Depression Dyspnea on exertion Emphysema of lung Essential (primary) hypertension Former smoker GERD (gastroesophageal reflux disease) High cholesterol History of CHF (congestive heart failure) History of irregular heartbeat History of stress test HLD (hyperlipidemia) Hx of echocardiogram Hypertension Hypokalemia IBS (irritable bowel syndrome) Injury of back Injury of head and neck Kidney disease Melena Multinodular thyroid Nicotine dependence Non-ischemic cardiomyopathy Non-STEMI (non-ST elevated myocardial infarction) (03/19/19) Obesity On home oxygen therapy BELLE (obstructive sleep apnea) Pacemaker PAD (peripheral artery disease) Peripheral vascular occlusive disease Persistent atrial fibrillation Pneumonia due to 2019 novel coronavirus (01/01/20) Post-menopausal Rheumatic fever Rheumatoid arthritis Sepsis (01/01/20) Sinus pause Sleep apnea Smoking greater than 30 pack years Tachy-erica syndrome Unstable angina pectoris due to coronary arteriosclerosis Wears dentures Wears glasses Wheezing Home Medications trazodone 150 mg tablet 150 mg PO QHS sleep 11/24/20 [History Last Taken 12/04/21] calcium carbonate 600 mg-vitamin D3 12.5 mcg (500 unit) capsule (Calcium 600 with Vitamin D3) 1 cap PO DAILY supplement 02/22/21 [History Last Taken 12/05/21] ascorbic acid (vitamin C) 1,000 mg tablet (Vitamin C) 1,000 mg PO DAILY supplement 12/05/21 [History Last Taken 12/04/21] lorazepam 1 mg tablet 1 mg PO TID PRN Anxiety 12/05/21 [History Last Taken 12/05/21] vitamin E (dl, acetate) 45 mg (100 unit) capsule 45 mg PO DAILY supplement 12/05/21 [History Last Taken 12/04/21] apixaban 5 mg tablet (Eliquis) 5 mg PO BID blood thinner #180 tabs 12/26/21 [Rx Last Taken Unknown] cholecalciferol (vitamin D3) 25 mcg (1,000 unit) capsule (Vitamin D3) 25 mcg PO DAILY SUPPLEMENT 04/25/22 [History Last Taken Unknown] clopidogrel 75 mg tablet 75 mg PO DAILY antiplatelet #90 tabs 06/12/22 [Rx Last Taken Unknown] metoprolol tartrate 100 mg tablet 100 mg PO BID BP #180 tabs 06/12/22 [Rx Last Taken Unknown] diltiazem HCl 240 mg capsule,24 hr,extended release 240 mg PO DAILY BP #90 caps 06/21/22 [Rx Last Taken Unknown] isosorbide mononitrate 60 mg tablet,extended release 24 hr 60 mg PO DAILY HEART #90 tabs 06/21/22 [Rx Last Taken Unknown] nitroglycerin 0.4 mg sublingual tablet (Nitrostat) 0.4 mg sublingual Q5M PRN Chest Pain #25 tabs 06/27/22 [Rx Last Taken Unknown] potassium chloride 20 mEq tablet,extended release 20 meq PO BID supplement #180 tabs 08/06/22 [Rx Last Taken Unknown] dapagliflozin propanediol 10 mg tablet (Farxiga) See Rx Instructions .Route .COMPLEX #30 TABLETS 08/20/22 [Rx Last Taken Unknown] furosemide 40 mg tablet 40 mg PO BID diuretic #60 tabs 10/29/22 [Rx Last Taken Unknown] duloxetine 60 mg capsule,delayed release 60 mg PO DAILY mental health #30 caps 11/21/22 [Rx Last Taken Unknown] albuterol sulfate 90 mcg/actuation aerosol inhaler 1 - 2 puff inhalation Q4H PRN PRN Dyspnea, wheezing ##1 01/15/23 [Rx Last Taken Unknown] fluticasone 500 mcg-salmeterol 50 mcg/dose blistr powdr for inhalation (Wixela Inhub) 1 inh inhalation BID breathing #60 ea 01/15/23 [Rx Last Taken Unknown] tiotropium bromide 2.5 mcg/actuation mist for inhalation (Spiriva Respimat) 2 puff inhalation DAILY COPD #4 grams 01/15/23 [Rx Last Taken Unknown] duloxetine 30 mg capsule,delayed release 30 mg PO DAILY mental health #30 caps 03/04/23 [Rx Last Taken Unknown] atorvastatin 40 mg tablet 40 mg PO DAILY cholesterol #90 tabs 03/18/23 [Rx Last Taken Unknown] pantoprazole 40 mg tablet,delayed release 40 mg PO DAILY GERD #90 tabs 03/18/23 [Rx Last Taken Unknown] ferrous sulfate 325 mg (65 mg iron) tablet 325 mg PO BID supplement #60 tabs 03/25/23 [Rx Last Taken Unknown] dicyclomine 10 mg capsule 10 mg PO 4X/DAY ibs #120 caps 04/21/23 [Rx Last Taken Unknown] amiodarone 200 mg tablet 100 mg (1/2 x 200 mg) PO DAILY BP #90 tabs 04/22/23 [Rx Last Taken Unknown] spironolactone 25 mg tablet 25 mg PO DAILY #30 tabs 04/22/23 [Rx Last Taken Unknown] levothyroxine 25 mcg tablet (Synthroid) 25 mcg PO DAILY #30 tabs 04/23/23 [Rx Last Taken Unknown] gabapentin 300 mg capsule See Rx Instructions .Route .COMPLEX #120 caps 04/25/23 [Rx Last Taken Unknown] buspirone 10 mg tablet 10 mg PO TID mental health #90 tabs 05/14/23 [Rx Last Taken Unknown] Allergy/AdvReac Type Severity Reaction Status Date / Time lisinopril Allergy tongue Verified 05/16/23 18:22 swelling Family History Father Heart disease Hypertension Seizures Sister Hypertension Son CVA (cerebral vascular accident) Daughter Cancer stomach Other Family history of hypertension Surgical History Cataract extraction status History of angioplasty of peripheral vessel History of bilateral leg stents History of bunionectomy of right great toe History of cardioversion (07/18/20) History of colonoscopy (06/2018) History of coronary artery stent placement (03/18/19) History of left heart catheterization (11/25/19) History of permanent cardiac pacemaker placement (03/27/20) History of tonsillectomy Hx of APLL Hx of cardiac cath Hx of colonoscopy Hx of hysterectomy S/P AAA repair Status post left foot surgery Social History household members: other details: grandson housing: house 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al status: retired 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 Eyes: Patient denies changes in vision or discharge from eyes. ENT: Patient denies runny nose, sore throat or ear pain. CV: Patient denies chest pain, palpitations or LE edema. GI: Patient denies abdominal pain, nausea, vomiting or diarrhea. : Patient denies dysuria, hematuria or urinary frequency. MSK: Patient denies back pain, extremity pain or neck pain. Skin: Patient denies abscess, rash or wounds. Neurologic: Patient denies headache, paresthesias or focal neurologic weakness. Endocrinologic: Patient denies polyuria, polydipsia or polyphagia. Psychiatric: Patient denies uncontrolled depression or anxiety. 14 point ROS otherwise negative except for positives noted above in HPI. Vital Signs Vital Signs Vital Signs: 05/16/23 18:22 05/16/23 19:54 05/16/23 19:54 Temperature 97.9 F Temperature Source Temporal Pulse Rate 71 71 Respiratory Rate 16 16 Respiratory Pattern Normal Blood Pressure 96/55 L 109/61 Blood Pressure Mean 68 77 Pulse Ox 99 96 Oxygen Delivery Method Room Air Room Air Weight Weight: 130 lb Body Mass Index (BMI) 23.8 Physical Exam Const alert, oriented x3, no apparent distress, average body habitus and healthy appearing General Appearance: cooperative HEENT normocephalic, head/scalp atraumatic, hearing grossly normal bilaterally, moist oral mucous membranes and oropharynx normal Eyes PERRL, EOMs intact bilaterally and conjunctivae normal Neck no lymphadenopathy and supple Resp normal respiratory effort, no retractions, no use of accessory muscles and clear to auscultation bilaterally Cardio regular rate and regular rhythm GI normal to inspection, nondistended, normoactive bowel sounds, soft to palpation, non-tender and non-distended Extremity normal to inspection, full ROM and no clubbing, cyanosis or edema Skin Skin Narrative: Patient has no evidence of rash. Neuro oriented x3, CN's II-XII intact bilaterally, moves all extremities and no focal motor deficits Sensorium / Orientation: awake, alert, oriented to person, oriented to place and oriented to time Speech: speech normal Motor Exam: strength 5/5 throughout Psych affect normal Results Medical Records Data Attestation: I reviewed the patient's medical records Lab / Micro Data Attestation: I reviewed the patient's lab results. 05/17/23 06:41 05/16/23 19:40 Labs: Laboratory Results - last 24 hr 05/16/23 19:40: WBC 7.4, RBC 3.81 L, Hgb 11.3 L, Hct 34.2 L, MCV 89.8, MCH 29.7, MCHC 33.0, RDW Std Deviation 42.5, RDW Coeff of Natalie 13.1, Plt Count 219, MPV 10.2, Immature Gran % (Auto) 0.400, Neut % (Auto) 74.0 H, Lymph % (Auto) 11.7 L, Kimble % (Auto) 8.2, Eos % (Auto) 5.4 H, Baso % (Auto) 0.3, Absolute Neuts (auto) 5.4, Absolute Lymphs (auto) 0.86, Nucleated RBC % 0, Sodium 134 L, Potassium 4.9, Chloride 102, Carbon Dioxide 29.0, Anion Gap 3 L, BUN 61 H, Creatinine 3.04 H, Estim Creat Clear Calc 12.84, Est GFR (MDRD) Af Amer 19 L, Est GFR (MDRD) Non-Af 16 L, BUN/Creatinine Ratio 20.1 H, Glucose 101, Calcium 9.1 05/16/23 20:15: Urine Color Yellow, Urine Clarity Clear, Urine pH 6.0, Ur Specific [place] 1.010, Urine Protein Negative, Urine Glucose (UA) Normal, Urine Ketones Negative, Urine Occult Blood Negative, Urine Nitrite Negative, Urine Bilirubin Negative, Urine Urobilinogen Normal, Ur Leukocyte Esterase 500 H, Urine RBC 0 SEEN, Urine WBC 0-5 SEEN, Ur Squamous Epith Cells 0-5 SEEN, Urine Bacteria RARE, Urine Mucus 0 SEEN Assessment & Plan Assessment/Plan (1) SAM (acute kidney injury): (2) Chronic kidney disease, stage 4 (severe): (3) Adverse drug reaction: QUALIFIERS: Encounter type: initial encounter Qualified Code(s): T50.905A - Adverse effect of unspecified drugs, medicaments and biological substances, initial encounter PLAN: Plan 1. SAM; in the setting of stage IV CKD suspected to be due at least in part to an Adverse Drug Reaction to coadministration of multiple diuretic agents - Admit to general medical floor. Continue vigorous volume resuscitation and then recheck BMP in the AM to evaluate for improvement. Avoid potentially nephrotoxic agents and stop both Lasix and spironolactone until further notice. Finally, we will consult nephrology to see this patient on-rounds in the AM for further recommendations with help appreciated in advance. 2. Essential hypertension; with history of tongue swelling attributed to Lisinopril - Hold scheduled antihypertensives in light of #1. Give IV Hydralazine prn for systolic blood pressure > 160 mm Hg. 3. Hyperlipidemia - Resume statin and check lipid profile. 4. Hypothyroidism - Continue Synthroid and check TSH. 5. DM-2; of unknown control - ADA/Renal diet. FSBS q. AC/HS plus low-intensity SSI. Check HgbA1c. 6. Paroxysmal atrial fibrillation; on Eliquis - Stable. Resume Eliquis as previous. 7. History of SSS; s/p PPM (2020) - Stable. 8. Chronic diastolic CHF; with preserved LEVF - Noted. 9. CAD; s/p NSTEMI with stent (2019) - Stable. Continue current antiplatelet medications. 10. History of AAA - Noted with no history of rupture. 11. PVD; s/p angioplasty of peripheral vessel with stents to both legs - Stable. 12. Remote history of rheumatic fever - Noted. 13. History of GI bleed - Noted with 14. BELLE; on BiPAP - Resume BiPAP as pevious. 15. History of tobacco abuse (quit 2020); with subsequent COPD - Stable with no signs of flare. Continue prn nebulizers. 16. ZONIA - Noted. 17. IBS - Stable. 18. Depression with anxiety - Resume current management. 19. OA - Give Tylenol prn and avoid NSAID's. 20. DVT prophylaxis - Patient is already on Eliquis for #6 which will be co ntinued. Total time: Approximately 75 minutes. Charges/Coding Visit Charges Inpatient E&M: 51173 Init Hosp L3
--- OUTSIDE RECORDS SUMMARY | 2023-05-16 20:53 | XMS RPT_ITS | CCD ---
Author Name Unknown Address [address] [place] [address] Organization [facility] Care Team Providers Care Refrigeration Systems Installer Name Role Phone Abigail JEAN-BAPTISTE, Cathi Hinojosa Primary Care Provider Abigail JEAN-BAPTISTE, Cathi Hinojosa Primary Care Provider Ector Jewell MD(Historical) Primary Care Provi mariya Unavailable Anitra JEAN-BAPTISTE, Alexandre Yeager Primary Care Provider [phone] Keith JEAN-BAPTISTE, Lana Unavailable Alexandre Ayoub MD Primary Care Provider [phone] Keith JEAN-BAPTISTE, Lana Unavailable Kamila, [place] Unavailable Zack Tobar Unavailable KEITH, LANA Attending [...] Care Provider Keith JEAN-BAPTISTE, Lana Unavailable Kamila, [place] Unavailable Zack Tobar Unavailable Allergies Allergy Classification Reported Allergen(s) Allergy Type Date of Onset Reaction(s) Facility (6 sources) Lisinopril Drug Allergy 0 Other: See Comments [facility] (13 sources) Lisinopril Allergy to substance 0 [facility] Medications Current Medications Medication Drug Class(es) [...] temperature 97.5 [degF] Kanwal Nuñez Work Phone: [email or web address] 05-07-2023 15:38-0500 Diastolic blood pressure 66 mm[Hg] Kanwal Durbin MD Work Phone: [email or web address] 05-07-2023 15:38-0500 Heart rate 82 /min Kanwal Nuñez Work Phone: [email or web address] 05-07-2023 15:38-0500 Respiratory rate 16 /min Kanwal Nuñez Work Phone: [email or web address] 05-07-2023 15:38-0500 SaO2% (BldA) [Mass fraction] 93 % Kanwal Durbin MD Work Phone: [email or web address] 05-07-2023 15:38-0500 Systolic blood pressure 151 mm[Hg] Kanwal Durbin MD Work Phone: [facility] 05-07-2023 03:10-0500 Body height 157.5 cm Kanwal Nuñez Work Phone: [facility] 05-07-2023 03:10-0500 Body mass index (BMI) [Ratio] 25.05 kg/m2 Kanwal Durbin MD Work Phone: [facility] 05-07-2023 03:10-0500 Body weight 62.14 kg Kanwal Nuñez Work Phone: [facility] 08-19-2022 09:43-0400 Body temperature 96.91 [degF] Lana Parker MD Work Phone: [facility] 08-19-2022 09:43-0400 Diastolic blood pressure 73 mm[Hg] Lana Parker MD Work Phone: [facility] 08-19-2022 09:43-0400 Heart rate 74 /min Lana Parker MD Work Phone: [facility] 08-19-2022 09:43-0400 Systolic blood pressure 132 mm[Hg] Lana Parker MD Work Phone: [facility] 07-24-2022 13:46-0400 Body temperature 97.3 [degF] Lana Parker MD Work Phone: [facility] 07-24-2022 13:46-0400 Diastolic blood pressure 67 mm[Hg] Lana Parker MD Work Phone: [facility] 07-24-2022 13:46-0400 Heart rate 61 /min Lana Parker MD Work Phone: [facility] 07-24-2022 13:46-0400 Systolic blood pressure 132 mm[Hg] Lana Parker MD Work Phone: [facility] 07-10-2022 11:06-0400 Body temperature 97.81 [degF] Lana Parker MD Work Phone: [facility] 07-10-2022 11:06-0400 Diastolic blood pressure 48 mm[Hg] Lana Parker MD Work Phone: [facility] 07-10-2022 11:06-0400 Heart rate 61 /min Lana Parker MD Work Phone: [facility] 07-10-2022 11:06-0400 Respiratory rate 18 /min Lana Parker MD Work Phone: [facility] 07-10-2022 11:06-0400 SaO2% (BldA) [Mass fraction] 96 % Lana Parker MD Work Phone: [facility] 07-10-2022 11:06-0400 Systolic blood pressure 130 mm[Hg] Lana Parker MD Work Phone: [facility] 07-09-2022 09:22-0400 SaO2% (BldA) [Mass fraction] 88.5 % Lana Parker MD Work Phone: [facility] 07-07-2022 10:40-0400 Body height 152.4 cm Lana Parker MD Work Phone: [facility] 05-27-2022 09:04-0400 Body temperature 96.91 [degF] Lana Parker MD Work Phone: [facility] 05-27-2022 09:04-0400 Body weight 59.42 kg Lana Parker MD Work Phone: [facility] 05-27-2022 09:04-0400 Diastolic blood pressure 80 mm[Hg] Lana Parker MD Work Phone: [facility] 05-27-2022 09:04-0400 Systolic blood pressure 132 mm[Hg] Lana Parker MD Work Phone: [facility] Encounters Encounter Date Encounter Type Care Provider Facility Start: 05-07-2023 End: 05-07-2023 [facility] Start: 05-06-2023 End: 05-07-2023 Evaluation [...] Screening for malign ant neoplasm of colon [facility] Start: 03-05-2028 Urine microalbumin profile DTAP,TDAP,TD (3 - Td or Tdap) [facility] Start: 11-25-2025 Colonoscopy COLONOSCOPY [facility] Start: 11-25-2025 COLORECTAL CANCER SCREENING COLORECTAL CANCER SCREENING [facility] Start: 12-27-2024 LIPID SCREEN LIPID SCREEN [facility] Start: 11-22-2023 DIABETES SCREEN DIABETES SCREEN [facility] Start: 07-11-2023 Creatinine measurement Creatinine [facility] Start: 07-11-2023 Potassium measurement Potassium Leve l [facility] Start: 07-10-2023 Diabetes mellitus screening Diabetes Screening [facility] Start: 06-27-2023 Creatinine measurement Creatinine [facility] Start: 06-27-2023 Potassium measurement Potassium Leve l [facility] Start: 02-18-2023 End: 08-20-2023 Creatinine [Mass/volume] in Serum or Plasma Creatinine, Serum Lab Routine Status post endovascular aneurysm repair (EVAR) Pre-procedure lab exam Expected: 02/18/2023 (Approximate), Expires: 08/20/2023 [facility] Immunizations Immunization Date Immunization Notes Care Provider Fa cility 01-03-2021 influenza virus vacc ine, unspecified formulation Lana Parker MD Work Phone: [facility] 09-22-2020 zoster vaccine recombinant Aminata Barrera SHIRRING MACHINE OPERATOR AUTOMATIC.RATE EXAMINER Work Phone: [facility] Work Phone: 07-20-2020 COVID-19 vaccine, fu ll dose (MODERNA) Aminata Barrera SHIRRING MACHINE OPERATOR AUTOMATIC.RATE EXAMINER Work Phone: [facility] Work Phone: 06-22-2020 COVID-19 vaccine, fu ll dose (MODERNA) Aminata Podlogar SHIRRING MACHINE OPERATOR AUTOMATIC.[facility] Work Phone: [facility] Work Phone: 05-17-2020 zoster vaccine recombinant Aminata Podlogar SHIRRING MACHINE OPERATOR AUTOMATIC.[facility] Work Phone: [facility] Work Phone: 04-26-2019 influenza, high dose seasonal, preservative-free Aminata Podlogar SHIRRING MACHINE OPERATOR AUTOMATIC.[facility] Work Phone: [facility] 03-05-2018 tetanus and diphther ia toxoids, adsorbed, preservative free, for adult use (5 Lf of tetanus toxoid and 2 Lf of diphtheria toxoid) Aminata Podlogar SHIRRING MACHINE OPERATOR AUTOMATIC.[facility] Work Phone: [facility] 12-08-2017 influenza, high dose seasonal, preservative-free Aminata Podlogar SHIRRING MACHINE OPERATOR AUTOMATIC.[facility] Work Phone: [facility] 09-05-2017 pneumococcal polysaccharide vaccine, 23 valent Aminata Podlogar SHIRRING MACHINE OPERATOR AUTOMATIC.[facility] Work Phone: [facility] 01-29-2017 influenza, high dose seasonal, preservative-free Aminata Podlogar SHIRRING MACHINE OPERATOR AUTOMATIC.[facility] Work Phone: [facility] 01-29-2017 pneumococcal conjuga te vaccine, 13 valent Aminata Podlogar SHIRRING MACHINE OPERATOR AUTOMATIC.[facility] Work Phone: [facility] 12-15-2013 influenza, injectabl e, quadrivalent, contains preservative Aminata Podlogar SHIRRING MACHINE OPERATOR AUTOMATIC.[facility] Work Phone: [facility] 08-31-2011 pneumococcal polysaccharide vaccine, 23 valent Aminata Podlogar SHIRRING MACHINE OPERATOR AUTOMATIC.[facility] Work Phone: [facility] Payers Date Payer Category Payer Medicare [id number] 2022 Medicare [id number] 2020 Unknown ANTHEM BLUE CROS S AND BLUE [facility] [id number] 2020-Present [phone] [address] [place] [address] [facility] [id number] 2014 Medicaid MEDICAID [facility] MEDICAID [id number] 2014-Present [phone] [address] [place] [address] Medicaid [id number] Social History Date Type Detail Facility Start: 04-28-2017 End: 06-26-2022 Tobacco smoking status NHIS Ex-smoker [facility] End: 03-17-2020 History of tobacco use Current smoker [facility] End: 03-17-2020 History of tobacco use Cigarette Smoker [facility] Start: 04-28-2017 End: 06-26-2022 Tobacco use and exposure Smokeless tobacco non-user [facility] Start: 11-20-2020 End: 12-27-2020 Alcohol intake Current non-drinker of alcohol (finding) [facility] Start: 09-14-2020 History SDOH Alcohol Frequency 1 [facility] Start: 09-14-2020 History SDOH Alcohol Std Drinks 98 [facility] Start: 09-14-2020 History SDOH Social Connections Phone 2 [facility] Start: 09-14-2020 History SDOH Social Connections Get Together 3 [facility] Start: 09-14-2020 History SDOH Social Connections Living 5 [facility] Start: 09-14-2020 Education 10 [facility] Start: 09-07-2020 Tobacco Comment <5 per day, pt reported starting 04/2019 [facility] Start: 1950 Sex Assigned At Female [facility] Start: 06-18-2021 End: 08-19-2022 Exposure to SARS-CoV-2 (event) Not sure [facility] Start: 11-09-2014 Tobacco Comment <5 per day [facility] Start: 05-27-2022 Alcohol intake Lifetime non-d rashard (finding) [facility] Start: 1950 Sex Assigned At Not on file S [facility] Start: 06-26-2022 End: 08-19-2022 Cigarettes smoked current (pack per day) - Reported 0.5 [facility] Start: 06-26-2022 End: 08-19-2022 Alcohol intake Ex-drinker (finding) [facility] Start: 06-26-2022 Alcohol Comment former social drinker; none for years [facility] Start: 08-19-2022 Tobacco use panel [facility] Medical Equipment Procedure Code Equipment Code Equipment Origin al Text Equipment Identifier Dates Stent Carlos 10mm 7 fr 25mm 135cm - [id number] Start: 07-05-2022 Tm Abdominal Raul nt Graft System [id number] [facility] Start: 07-05-2022 Clinical Notes 12-06-2015 to 05-07-2023 Jane Coates RN - 05/07/2023 5:11 PM Pieter Coates RN - 05/07/2023 5:11 PM Pieter Coates RN - 05/07/2023 9:24 AM Nellie Wagner MD - 05/07/2023 4:24 PM ESTDischarge Instructions Note Date & Type Note Facility 05-07-2023 Note [facility] Vascular Surgery Discharge Summary Name: [...] Wagner MD General Surgery PGY-1 Pager [phone] [facility] 05-07-2023 Nurse Note Tele and IV discontinued. Patient educated on meds and discharge instructions. States she understands. Has all belongings in hand. [facility] 05-07-2023 Nurse Note Tele and IV [...] the tray anyway. documented in this encounter [facility] 05-07-2023 Hospital course Narrative [facility] Vascular Surgery Discharge Summary Name: [...] PGY-1 Pager [phone] documented in this encounter [facility] 05-07-2023 Hospital Discharge instructions Papo Wagner MD [...] pain. -Abdominal distention. documented in this encounter [facility] 05-07-2023 Note Formatting of this n ote might be different from the original. Care Managment Initial Assessment Date: 05/07/2023 Patient Name: Kathy Puri : 1950 Patient Information Source of Information: Patient Cognition/Language: WFL - Within Functional Limits Permission given to speak with patient retail sales representative/caregiver as indicated: Yes Confirmation of Payer with patient/family: Yes Payer Name: [facility] Medicare : No Confirmation of Primary Care [...] Living Prescription Coverage: Yes Pharmacy Used: [facility] Medication Management: Prescription pick-up Transportation/Shopping: Assistance Provider [...] TBD at this time. Nela Vera RN [facility] 05-07-2023 Note Formatting of this n ote might be different from the original. Care Managment Initial Assessment Date: 05/07/2023 Patient Name: Kathy Puri : 1950 Patient Information Source of Information: Patient Cognition/Language: WFL - Within Functional Limits Permission given to speak with patient retail sales representative/caregiver as indicated: Yes Confirmation of [...] Living Prescription Coverage: Yes Pharmacy Used: [facility] Medication Management: Prescription pick-up Transportation/Shopping: Assistance Provider [...] TBD at this time. Nela Vera RN [facility] 05-07-2023 Miscellaneous Notes Care Managment Initial Assessment Date: 05/07/2023 Patient Name: Kathy Puri : 1950 Patient Information Source of Information: Patient Cognition/Language: WFL - Within Functional Limits Permission given to speak with patient retail sales representative/caregiver as indicated: Yes Confirmation of Payer with patient/family: Yes Payer Name: [facility] Medicare : No Confirmation of Primary Care [...] Living Prescription Coverage: Yes Pharmacy Used: [facility] Medication Management: Prescription pick-up Transportation/Shopping: Assistance Provider [...] injury Outcome: Progressing documented in this encounter [facility] 05-07-2023 Nurse Note Walked into pt room at 0915 and wrong breakfast tray was sitting on bedside table. Pt has already eaten everything. MD Wagner and nolberto notified. Pt was informed this morning she was NPO today and she ate the tray anyway. [facility] 05-07-2023 Note Formatting of this n ote [...] the day team and they would evaluate. [facility] 05-07-2023 Note Formatting of this n ote [...] the day team and they would evaluate. [facility] 05-07-2023 Note Problem: Pain - Adul t Goal: Verbalizes/displays adequate comfort level or baseline comfort level Outcome: Progressing Problem: Safety - Adult Goal: Free from fall injury Outcome: Progressing [facility] 05-07-2023 Plan of care note Problem: Pain - Adult Goal: Verbalizes/displays adequate comfort level or baseline comfort level Outcome: Progressing Problem: Safety - Adult Goal: Free from fall injury Outcome: Progressing [facility] 05-07-2023 Note Attestation signed by Lana Parker MD at 05/07/2023 1:20 PM I saw and evaluated the patient. I agree with the findings and plan of care as documented in the resident?s note unless otherwise noted below. The patient has a stable aneurysm sac size at 5.2 cm and no clear evidence of endoleak on her CT performed at [place] which was reviewed in the PACS system. [...] Parker), (additional history below) who presents to [facility] ED with a chief complaint of abdominal pain/confusion. Patient was transferred from [facility] for evaluation by [facility] vascular surgery team. Imaging completed at [facility], demonstrated concern for endoleak. Vascular surgery was [...] of Systems Consti (more content not included)... [facility] 05-07-2023 History and physical note Vascular Surgery H&P Note Reason for Consult: concern for endoleak History Of Present Illness: Kathy Puri is a 73 y.o. female with PMHx significant for hypertension, hyperlipidemia, CKD, myocardial infarction, CHF, COPD, GERD, BELLE, anemia, IBS, PAD, and PSHx of cardiac stents, pacemaker placement, hysterectomy, tonsillectomy, EVAR (2022, Dr. Parker), (additional history below) who presents to [facility] ED with a chief complaint of abdominal pain/confusion. Patient was transferred from [facility] for evaluation by [facility] vascular surgery team. Imaging completed at [facility], demonstrated concern for endoleak. Vascular surgery was [...] intervention tonight Will admit to vascular surgery N.p.o./IDVF Hold anticoagulation Imaging to be reviewed by [...] Department of Surgery General Surgery Resident Pager: [phone] PAGING / TORIA Secure Chat: From 6a-6p (- weekends): Epic Secure Chat (FIRST) or Pager above (EMERGENT/Second) From 6p-6a (- weekends): Find resident physician under [facility] Surgery - General - Surgical [...] This note may have been dictated using BeLocal Edition and/or Cater to u Voice Recognition Feature. The document was proofread; however, unrecognized voice recognition stripper latex errors may be present. Associated attestation - Lana Parker MD - 05/07/2023 1:20 PM EST I saw and evaluated the patient. I agree with the findings and plan of care as documented in the resident s note unless otherwise noted below. The patient has a stable aneurysm sac size at 5.2 cm and no clear evidence of endoleak on her CT performed at [place] which was reviewed in the PACS system. [...] OK for diet and resume home medications. [facility] 05-07-2023 History and physical note Vascular Surgery H&P Note Reason for Consult: concern for endoleak History Of Present Illness: Kathy Puri is a 73 y.o. female with PMHx significant for hypertension, hyperlipidemia, CKD, myocardial infarction, CHF, COPD, GERD, BELLE, anemia, IBS, PAD, and PSHx of cardiac stents, pacemaker placement, hysterectomy, tonsillectomy, EVAR (2022, Dr. Parker), (additional history below) who presents to [facility] ED with a chief complaint of abdominal pain/confusion. Patient was transferred from [facility] for evaluation by [facility] vascular surgery team. Imaging completed at [facility], demonstrated concern for endoleak. Vascular surgery was [...] Date Anemia Anxiety Arrhythmia afib Arthritis Cancer ([facility]/HCC) ([facility]) ovarian CHF (congestive heart failure) ([facility]) ([facility]) CKD (chronic kidney disease) COPD (chronic obstructive pulmonary disease) ([facility]) Depression GERD (gastroesophageal reflux disease) Heart valve disease Hyperlipidemia Hypertension Irritable bowel syndrome Joint pain Myocardial infarction ([facility]) ([facility]) Pacemaker PAD (peripheral artery disease) ([facility]) Sleep apnea uses CPAP Past Surgical History: [...] Department of Surgery General Surgery Resident Pager: [phone] PAGING / TORIA Secure Chat: From 6a-6p (- weekends): Epic Secure Chat (FIRST) or Pager above (EMERGENT/Second) From 6p-6a (-s): Find resident physician under [facility] Surgery - General - Surgical [...] This note may have been dictated using BeLocal Edition and/or Cater to u Voice Recognition Feature. The document was proofread; however, unrecognized voice recognition stripper latex errors may be present. Associated attestation - Lana Parker MD - 05/07/2023 1:20 PM EST I saw and evaluated the patient. I agree with the findings and plan of care as documented in the resident s note unless otherwise noted below. The patient has a stable aneurysm sac size at 5.2 cm and no clear evidence of endoleak on her CT performed at [place] which was reviewed in the PACS system. [...] resume home medications. documented in this encounter [facility] 05-07-2023 Emergency department Note Surgery at bedside. Sánchez Jimenez 05/07/23 0042 [facility] 05-07-2023 Emergency department Note Surgery at bedside. Sánchez Jimenez 05/07/23 0042 Emergency Department Encounter [facility] EMERGENCY DEPT Patient: Kathy Puri [...] FiO2 (%) Left arm -- Focused exam: [id number] in no acute distress. Alert and oriented [...] Culture. Procedure Abnormality Status --------- ------ Complete Urinalysis[[id number]] Please view results for these tests on [...] Chest x-ray with opacities appreciated. EKG with Compton rhythm with a rate of [address] elevations or depressions concerning for STEMI. Patient with nonspecific ST depressions in the lateral leads present on previous EKG from June 2022. Reviewed paperwork from [facility]. Urinalysis on that paperwork with no UTI. [...] MD 05/07/23 0131 documented in this encounter [facility] 05-06-2023 Physician Emergency department Note Emergency Department Encounter [facility] EMERGENCY DEPT Patient: Kathy Puri [...] FiO2 (%) Left arm -- Focused exam: [id number] in no acute distress. Alert and oriented [...] Culture. Procedure Abnormality Status --------- ------ Complete Urinalysis[[id number]] Please view results for these tests on [...] EKG from June 2022. Reviewed paperwork from [facility]. Urinalysis on that paperwork with no UTI. [...] mis-transcribed.) MD Kanwal Sherman MD 05/07/23 0131 [facility] Phone: 09-18-2022 Note Patient Outreach (IN TMMN) KATHY PURI ([id number]) 1950 F Date Time Provider Department 09/18/22 CATHI HAYES During your visit today, we recorded the following information about you: Allergies As of Date: 09/18/2022 Noted Allergy Reaction LISINOPRIL 05/31/2019 14 - Other: See Comments Comments: Numbness to tongue Date Reviewed: 12/27/2020 Reviewed by: Yuly Galloway, NARENDRA - Fully Assessed Visit Diagnosis:Encounter for screening mammogram for breast cancer [Z12.31] Order(s):[facility] SCREENING [[id number]] Order #: [id number] FUTURE Prescriptions as of 09/23/2022 - clopidogrel [...] twice daily. Added at recent hospital stay [facility]. - BIPAP Initiate BiPAP @ 9/5 cm [...] Encounter Status:Closed by EDIS, PRODUSER on 09/23/22 [facility] 08-19-2022 History of Present illness Narrative [...] care everywhere as there were performed in [place]. Past Surgical History: Procedure Laterality Date ABDOMINAL [...] MD Vascular Surgery documented in this encounter [facility] 07-24-2022 History of Present illness Narrative [...] MD Vascular Surgery documented in this encounter [facility] 07-10-2022 Nurse Note Discharged to home. Instructions given to pt and her sister. Prescriptions filled by meds to beds pharmacy. [facility] 07-10-2022 Nurse Note Discharged to home. [...] patient elevated BP. documented in this encounter [facility] 07-10-2022 Note Vascular Surgery Dis charge [...] the patient discharged on a statin? Yes [facility] 07-10-2022 Hospital course Narrative Vascular Surgery Discharge [...] a statin? Yes documented in this encounter [facility] 07-10-2022 Note Department of Surger y [...] Problem: Infrarenal abdomina (more content not included)... [facility] 07-10-2022 History of Present illness Narrative Images [...] This note may have been dictated using FilmLoop Practice Edition and/or Cater to u Voice Recognition Feature. The document was proofread; however, unrecognized voice recognition stripper latex errors may be present Physical Therapy Facility/Department: [...] history of Anemia, Anxiety, Arrhythmia, Arthritis, Cancer ([facility]) ([facility]), CHF (congestive heart failure) ([facility]) ([facility]), CKD (chronic kidney disease), COPD (chronic obstructive pulmonary disease) ([facility]), Depression, GERD (gastroesophageal reflux disease), Heart valve disease, Hyperlipidemia, Hypertension, Irritable bowel syndrome, Joint pain, Myocardial infarction ([facility]) ([facility]), Pacemaker, PAD (peripheral artery disease) ([facility]), and Sleep apnea. has a past [...] discharge with Dr. Parker. Department of Surgery #[id number] Images from the original note were not [...] Will discuss with Dr. Parker NG / TORIA Secure Chat: From 6a-6p (-s): TORIA Secure Chat (FIRST) or Pager above (EMERGENT/Second) [...] This note may have been dictated using FilmLoop Practice Edition and/or Cater to u Voice Recognition Feature. The document was proofread; however, unrecognized voice recognition stripper latex errors may be present Associated attestation - [...] She is normally independent, drives, does the vp strategy. She will have assistance from her mother [...] of Anemia, Anxiety, Arrhythmia, Arthritis, Cancer (CMS/HCC) ([facility]), CHF (congestive heart failure) (CMS/HCC) ([facility]), CKD (chronic kidney disease), COPD (chronic obstructive pulmonary disease) ([facility]), Depression, GERD (gastroesophageal reflux disease), Heart valve disease, Hyperlipidemia, Hypertension, Irritable bowel syndrome, Joint pain, Myocardial infarction (CMS/HCC) ([facility]), Pacemaker, PAD (peripheral artery disease) ([facility]), and Sleep apnea. has a past [...] With device?: No Transfer Assistance: Independent Active Angiography Nurse: Yes Mode of Transportation: Car Additional Comments: [...] Other exercises 1: IS x 10 to 1815-4684 ml Plan Times per Week: 5 Times [...] Raji Ontiveros M.D. Department of Surgery Pager: [phone] PAGING / TORIA Secure Chat: From 6a-6p (- weekends): TORIA Secure Chat (FIRST) or Pager above (EMERGENT/Second) From 6p-6a (-s): Find resident provider under [facility] Surgery - General - Surgical [...] This note may have been dictated using FilmLoop Practice Edition and/or Cater to u Voice Recognition Feature. The document was proofread; however, unrecognized voice recognition stripper latex errors may be present. Associated attestation - [...] assess Fluid Accumulation: No significant fluid accumulation Beauty Specialist Strength: Not Performed Nutrition Assessment: +Nutrition screen. 72F w/ PMHx: CAD s/p PCI, CHF with reduced EF (11/2021 of 15-20%; 06/11/22 EF 30%), Pacemaker for tachy-erica syndrome, atrial fibrillation on Eliquis, COPD, and emphysema. She also has a history of bilateral SFA stenting. Admitted to [facility] for infrarenal abdominal aortic aneurysm without rupture, POD#2 s/p EVAR. Having hypertensive episodes this admission, prn antihypertensive given. Advanced to a regular diet, overall vance diet. Having some back pain, likely from stent placement. Endorses some nausea today w/ associated emesis. Hypoactive BS. Estimated Daily Nutrient Needs: Energy Requirements Based On: Kcal/kg Weight Used for Energy Requirements: [place] Weight for Energy Calculation (kg): 45 kg Total Energy Requirements (kcals/day): 1350 Weight Used for Protein Requirements: [place] Weight in Kg Used for Protein Requirements: [...] Current Body Weight: 59.4 kg (131 lb) [place] Body Weight (lbs) (Calculated): 100 lbs [place] Body Weight (Kg) (Calculated): 45 kg % [place] Body Weight (Calculated): 131 % BMI (kg/m2) [...] Jacqueline Lion MS, RD, LD Contact: or TORIA Chat Images from the original note were [...] Raji Ontiveros M.D. Department of Surgery Pager: [phone] PAGING / TORIA Secure Chat: From 6a-6p (-s): TORIA Secure Chat (FIRST) or Pager above (EMERGENT/Second) From 6p-6a (-): Find resident provider under [facility] Surgery - General - Surgical [...] This note may have been dictated using FilmLoop Practice Edition and/or Cater to u Voice Recognition Feature. The document was proofread; however, unrecognized voice recognition stripper latex errors may be present. Images from the [...] Raji Ontiveros M.D. Department of Surgery Pager: [phone] PAGING / TORIA Secure Chat: From 6a-p (-s): TORIA Secure Chat (FIRST) or Pager above (EMERGENT/Second) From 6p-6a (-): Find resident provider under [facility] Surgery - General - Surgical [...] This note may have been dictated using FilmLoop Practice Edition and/or Cater to u Voice Recognition Feature. The document was proofread; however, unrecognized voice recognition stripper latex errors may be present. Associated attestation - [...] without hematoma. PT/OT. documented in this encounter [facility] 07-09-2022 Note Care Management Prog ress Note Patient remains on 1C s/p EVAR POD # 4. Weaned to RA, patient re-eval by vascular from this am-now alert/oriented, ambulatory and tolerating diet. PT recommending home with assist.-patient stated to TCC mom and sister planning on staying/assisting her at ca. Patient from home with grandson, anticipate discharge [...] Length of Stay (Days): 4 GMLOS: 1.5 [facility] 07-09-2022 Nurse Note Patient states she takes lorazepam every night before bed and asking if she can get it here. I called and clarified with her pharmacy active medication. Dr Ontiveros aware. [facility] 07-09-2022 Nurse Note Per patient request Dr Ontiveros messaged because she states she takes lorazepam at hs. T [facility] 07-09-2022 Note Formatting of this n [...] Length of Stay (Days): 4 GMLOS: 1.5 [facility] 07-09-2022 Note Formatting of this n [...] and sister planning on staying/assisting her at ca. Patient from home with grandson, anticipate discharge [...] of Stay (Days): 4 GMLOS: 1.5 T [facility] 07-09-2022 Miscellaneous Notes Images from the [...] Limits Permission given to speak with patient retail sales representative/caregiver as indicated: Confirmation of Payer with patient/family: Yes Payer Name: [facility] Dual [place]: No Confirmation of Primary Care Physician: Confirmed [...] Living Prescription Coverage: Yes [facility]acy Used: [facility] Medication Management: (picks up rx, student fills [...] in recovery and will be admitted to [address] [place] [address] [facility]. Sistermaia updated via phone call on pt status. OPERATIVE REPORT DATE OF SERVICE: 07/05/2022 PRE-PROCEDURE DIAGNOSIS: Infrarenal Abdominal aortic aneurysm POST-PROCEDURE DIAGNOSIS: As above PROCEDURE PERFORMED: 1) Bilateral open femoral artery exposure for delivery of endoprosthesis 2) Endovascular infrarenal abdominal aortic aneurysm repair with 29 mm Endologix Taft endograft 3) Placement of 10 mm x 37 mm Balloon expandable stent placement to the right common iliac limb 4) Palmaz stent placement to the infrarenal aortic neck SURGEON: Lana Parker MD ASSISTANTS: Jolynn Meza APRN-RATE EXAMINER, Raji Ontiveros MD (PGY-1), Brian Nuñez MD [...] SPECIMENS: None IMPLANTS: 1) 29 mm Endologix Taft Main body 2) 14 x 120 mm Ovation iX left iliac limb 3) 16 x 120 mm Ovation iX right iliac limb 4) Palmaz XL stent to Aortic neck 5) 10 x 39 mm [employer] express balloon expandable stent placement to [...] technique was used to place a 6 Malagasy sheath. This was again performed in a similar fashion on the left with placement of an 8 Malagasy sheath. The patient was then given 6000 [...] abdominal aorta. On the right, a 14 Malagasy sheath was placed once the graft was [...] delivery system was removed and a 16 Malagasy sheath was placed on the left. As [...] with passing anything larger than a 12 Malagasy catheter from the right, the decision was [...] Parker MD Vascular Surgery Date: 07/05/2022 Location: [facility] OR Name: Kathy Puri, : 1950, Diagnosis Pre-op Diagnosis * Infrarenal abdominal aortic aneurysm, without rupture (HCC) [I71.43] Post-op Diagnosis * Infrarenal abdominal aortic aneurysm, without rupture (HCC) [I71.43] Procedures ENDOVASCULAR REPAIR OF ABDOMINAL AORTIC ANEURYSM 21144 - VT EVASC RPR DPLMNT [id number] NDGFT OPEN FEMORAL ARTERY EXPOSURE FOR DELIVERY OF ENDOVASCULAR PROSTHESIS 22907 - VT OPN FEM ART EXPOS DLVR EVASC PROSTH [...] STENT CARLOS 10MM 7FR 25MM 135CM - [id number] Implanted Staff: Econometrician: Georgina Daley RN Nurse Practitioner: Jolynn Meza, SHIRRING MACHINE OPERATOR AUTOMATIC - RATE EXAMINER Relief Scrub: Fercho Crystal Scrub Person: Landy [...] Vancomycin or flouroquinolone) documented in this encounter [facility] 07-09-2022 Hospital Discharge instructions Franklin Ontiveros MD - 07/09/2022 2:55 PM EDT Discharge Instructions for Endovascular Repair of Abdominal Aortic Aneurysm Call Dr. Parker's office [phone] for follow-up appointment. During endovascular repair, the [...] regular diet. You may work with a closed circuit screen watcher who will help you follow a heart-healthy [...] do so. Medications Your doctor may recommend: Yzdk-ffv-vxwvekh or prescription pain medicine Aspirin or a [...] taking more than one drug. This includes ecbv-fit-jwqvafl medicines and herb or dietary supplements. Plan [...] emergency, CALL 911. documented in this encounter [facility] 07-09-2022 Nurse Note In chair, encouraged incentive spirometer. [facility] 07-09-2022 Nurse Note Patient awakens for assessment. She is sleepy but follows all commands. She answers all questions appropriately. Neuro checks are within normal limits. She is oriented x4. Able to demonstrate use of call light. Bed alarm on for safety. Dr Ontiveros updated. [facility] 07-08-2022 Note Problem: Pain - Adul t Goal: Verbalizes/displays adequate comfort level or baseline comfort level Outcome: Progressing Problem: Safety - Adult Goal: Free from fall injury Outcome: Progressing [facility] 07-08-2022 Plan of care note Problem: Pain - Adult Goal: Verbalizes/displays adequate comfort level or baseline comfort level Outcome: Progressing Problem: Safety - Adult Goal: Free from fall injury Outcome: Progressing [facility] 07-08-2022 Note Sister Maia update d on plan of care. [facility] 07-08-2022 Note Formatting of this n ote might be different from the original. Care Managment Initial Assessment Date: 07/08/2022 Patient Name: Kathy Puri : 1950 Patient Information Source of Information: Patient Cognition/Language: WFL - Within Functional Limits Permission given to speak with patient retail sales representative/caregiver as indicated: Confirmation of Payer with patient/family: Yes Payer Name: [facility] Dual [place]: No Confirmation of Primary Care Physician: Confirmed [...] Living Prescription Coverage: Yes Pharmacy Used[facility] Medication Management: (picks up rx, student fills [...] TCC to follow. Jackie Kelly RN [facility] 07-08-2022 Note Formatting of this n ote might be different from the original. Care Managment Initial Assessment Date: 07/08/2022 Patient Name: Kathy Puri : 1950 Patient Information Source of Information: Patient Cognition/Language: WFL - Within Functional Limits Permission given to speak with patient retail sales representative/caregiver as indicated: Confirmation of Payer with patient/family: Yes Payer Name: [facility] Dual : No Confirmation of Primary Care [...] Living Prescription Coverage: Yes Pharmacy Used: [facility] Medication Management: (picks up rx, student fills [...] TCC to follow. Jackie Kelly RN [facility] 07-08-2022 Note Physical Therapy 1C Physical [...] She is normally independent, drives, does the vp strategy. She will have assistance from her mother [...] of Anemia, Anxiety, Arrhythmia, Arthritis, Cancer (CMS/HCC) ([facility]), CHF (congestive heart failure) (CMS/HCC) ([facility]), CKD (chronic kidney disease), COPD (chronic obstructive pulmonary disease) ([facility]), Depression, GERD (gastroesophageal reflux disease), Heart valve disease, Hyperlipidemia, Hypertension, Irritable bowel syndrome, Joint pain, Myocardial infarction (CMS/HCC) ([facility]), Pacemaker, PAD (peripheral artery disease) ([facility]), and Sleep apnea. has a past [...] With device?: No Transfer Assistance: Independent Active Angiography Nurse: Yes Mode of Transportation: Car Additional Comments: [...] Other exercises 1: IS x 10 to 1095-1099 ml Plan Times per Week: 5 Times per Day: Daily Plan Weeks: 2 Current Treatment Recommendations: Strengthening, Func (more content not included)... [facility] 07-08-2022 Nurse Note Sister Maia updated on plan of care. [facility] 07-08-2022 Plan of care note Problem: Pain - Adult Goal: Verbalizes/displays adequate comfort level or baseline comfort level Outcome: Progressing Problem: Safety - Adult Goal: Free from fall injury Outcome: Progressing Problem: Discharge Planning Goal: Discharge to home or other facility with appropriate resources Outcome: Progressing [facility] 07-07-2022 Note Problem: Pain - Adul t Goal: Verbalizes/displays adequate comfort level or baseline comfort level Outcome: Progressing Problem: Safety - Adult Goal: Free from fall injury Outcome: Progressing [facility] 07-07-2022 Plan of care note Problem: Pain - Adult Goal: Verbalizes/displays adequate comfort level or baseline comfort level Outcome: Progressing Problem: Safety - Adult Goal: Free from fall injury Outcome: Progressing [facility] 07-07-2022 Note Department of Surger y [...] HYDROmorphone OR HYDROmo (more content not included)... [facility] 07-06-2022 Plan of care note Problem: Pain - Adult Goal: Verbalizes/displays adequate comfort level or baseline comfort level Outcome: Progressing Problem: Safety - Adult Goal: Free from fall injury Outcome: Progressing Problem: Discharge Planning Goal: Discharge to home or other facility with appropriate resources Outcome: Progressing T [facility] 07-05-2022 Nurse Note paged in regards to patient elevated BP. T [facility] 07-05-2022 Note Formatting of this n ote might be different from the original. Updated pt's sister over phone that pt is doing well in recovery and will be admitted to 1 C- 133 A shortly. T [facility] 07-05-2022 Note Formatting of this n ote might be different from the original. Updated pt's sister over phone that pt is doing well in recovery and will be admitted to 1 C- 133 A shortly. [facility] 07-05-2022 Note Patient: Kathy tierney Procedure Summary Date: 07/05/22 Room / Location: [facility] OR [facility] Operating Room Anesthesia Start: 730 Anesthesia Stop: [...] once all PACU criteria has been met. [facility] 07-05-2022 Note Patient: Kathy tierney Procedure Summary Date: 07/05/22 Room / Location: [facility] Operating Room Anesthesia Start: 730 Anesthesia [...] opportunity for questions and acknowledgement of understanding. [facility] 07-05-2022 Note Formatting of this n ote might be different from the original. maia Marcum updated via phone call on pt status. [facility] 07-05-2022 Note Formatting of this n ote might be different from the original. maia Marcum updated via phone call on pt status. [facility] 07-05-2022 Note Airway Date/Time: 07/05/2022 7:49 AM Urgency: scheduled Airway not difficult General Information and Staff Patient location during procedure: Procedural Anesthesiologist: Elgin Castro MD Resident/DIESEL LOCOMOTIVE ENGINEER: Antonio Mast APRN - DIESEL LOCOMOTIVE ENGINEER Performed: SRNA Indications and Patient Condition [...] at approach: 1 Ventilation between attempts: none [facility] 07-05-2022 Note OPERATIVE REPORT DATE OF SERVICE: 07/05/2022 PRE-PROCEDURE DIAGNOSIS: Infrarenal Abdominal aortic aneurysm POST-PROCEDURE DIAGNOSIS: As above PROCEDURE PERFORMED: 1) Bilateral open femoral artery exposure for delivery of endoprosthesis 2) Endovascular infrarenal abdominal aortic aneurysm repair with 29 mm Endologix Taft endograft 3) Placement of 10 mm x [...] SPECIMENS: None IMPLANTS: 1) 29 mm Endologix Taft Main body 2) 14 x 120 mm Ovation iX left iliac limb 3) 16 x 120 mm Ovation iX right iliac limb 4) Palmaz XL stent to Aortic neck 5) 10 x 39 mm [employer] express balloon expandable stent placement to [...] technique was used to place a 6 Malagasy sheath. This was again performed in a similar fashion on the left with placement of an 8 Malagasy sheath. The patient was then given 6000 [...] abdominal aorta. On the right, a 14 Malagasy sheath was placed once the graft was [...] final proximal l (more content not included)... [facility] 07-05-2022 Note H&P reviewed. The pa tient [...] were answered. She has elected to proceed. [facility] 07-05-2022 Attending History and physical note H&P [...] seen/examined on 06/26/2022 Procedure Information Date/Time: 07/05/22 9207 Procedures: ENDOVASCULAR REPAIR OF ABDOMINAL AORTIC ANEURYSM OPEN FEMORAL ARTERY EXPOSURE FOR DELIVERY OF ENDOVASCULAR PROSTHESIS (Bilateral) Location: [facility] OR [facility] Operating Room Surgeons: Lana Parker MD Chief [...] ovarian No date: CHF (congestive heart failure) ([facility]) ([facility]) No date: CKD (chronic kidney disease) No date: COPD (chronic obstructive pulmonary disease) ([facility]) No date: Depression No date: GERD (gastroesophageal reflux disease) No date: Heart valve disease No date: Hyperlipidemia No date: Hypertension No date: Irritable bowel syndrome No date: Joint pain No date: Myocardial infarction ([facility]) ([facility]) No date: Pacemaker No date: PAD (peripheral artery disease) ([facility]) No date: Sleep apnea Comment: uses [...] OP cardiology 3) CAD - Hx of ID and stent insertion 1998, 2002 - Managed [...] Screen and Sleep Clinic Referral (if appropriate) [email or web address] Work Phone: 07-05-2022 Note Formatting of this n ote might be different from the original. OPERATIVE REPORT DATE OF SERVICE: 07/05/2022 PRE-PROCEDURE DIAGNOSIS: Infrarenal Abdominal aortic aneurysm POST-PROCEDURE DIAGNOSIS: As above PROCEDURE PERFORMED: 1) Bilateral open femoral artery exposure for delivery of endoprosthesis 2) Endovascular infrarenal abdominal aortic aneurysm repair with 29 mm Endologix Taft endograft 3) Placement of 10 mm x 37 mm Balloon expandable stent placement to the right common iliac limb 4) Palmaz stent placement to the infrarenal aortic neck SURGEON: Lana Parker MD ASSISTANTS: Jolynn Meza APRN-RATE EXAMINER, Raji Ontiveros MD (PGY-1), Brian Nuñez MD [...] SPECIMENS: None IMPLANTS: 1) 29 mm Endologix Taft Main body 2) 14 x 120 mm Ovation iX left iliac limb 3) 16 x 120 mm Ovation iX right iliac limb 4) Palmaz XL stent to Aortic neck 5) 10 x 39 mm [employer] express balloon expandable stent placement to [...] technique was used to place a 6 Malagasy sheath. This was again performed in a similar fashion on the left with placement of an 8 Malagasy sheath. The patient was then given 6000 [...] abdominal aorta. On the right, a 14 Malagasy sheath was placed once the graft was [...] delivery system was removed and a 16 Malagasy sheath was placed on the left. As [...] with passing anything larger than a 12 Malagasy catheter from the right, the decision was [...] placed and deployed to graft apposition. A Bluewater catheter was then positioned in the abdominal [...] case. Lana Parker MD Vascular Surgery [facility] 07-05-2022 Note Formatting of this n ote is different from the original. Date: 07/05/2022 Location: [facility] OR Name: Kathy Puri, : 1950, Diagnosis Pre-op Diagnosis * Infrarenal abdominal aortic aneurysm, without rupture (HCC) [I71.43] Post-op Diagnosis * Infrarenal abdominal aortic aneurysm, without rupture (HCC) [I71.43] Procedures ENDOVASCULAR REPAIR OF ABDOMINAL AORTIC ANEURYSM 84688 - VT EVASC RPR DPLMNT [id number] NDGFT OPEN FEMORAL ARTERY EXPOSURE FOR DELIVERY OF ENDOVASCULAR PROSTHESIS 86069 - VT OPN FEM ART EXPOS DLVR EVASC PROSTH [...] STENT CARLOS 10MM 7FR 25MM 135CM - [id number] Implanted Staff: Econometrician: Georgina Daley RN Nurse Practitioner: MAY Chiu CNP Relief Scrub: Fercho Crystal Scrub Person: Landy [...] hours if receiving Vancomycin or flouroquinolone) [facility] 07-05-2022 Note Formatting of this n ote might be different from the original. OPERATIVE REPORT DATE OF SERVICE: 07/05/2022 PRE-PROCEDURE DIAGNOSIS: Infrarenal Abdominal aortic aneurysm POST-PROCEDURE DIAGNOSIS: As above PROCEDURE PERFORMED: 1) Bilateral open femoral artery exposure for delivery of endoprosthesis 2) Endovascular infrarenal abdominal aortic aneurysm repair with 29 mm Endologix Taft endograft 3) Placement of 10 mm x [...] SPECIMENS: None IMPLANTS: 1) 29 mm Endologix Taft Main body 2) 14 x 120 mm Ovation iX left iliac limb 3) 16 x 120 mm Ovation iX right iliac limb 4) Palmaz XL stent to Aortic neck 5) 10 x 39 mm [employer] express balloon expandable stent placement to [...] technique was used to place a 6 Malagasy sheath. This was again performed in a similar fashion on the left with placement of an 8 Malagasy sheath. The patient was then given 6000 units of heparin for systemic anticoagulation. This was redosed throughout the case as needed. On the right, a Bluewater catheter was used to obtain access to [...] abdominal aorta. On the right, a 14 Malagasy sheath was placed once the graft was [...] delivery system was removed and a 16 Malagasy sheath was placed on the left. As [...] with passing anything larger than a 12 Malagasy catheter from the right, the decision was [...] placed and deployed to graft apposition. A Bluewater catheter was then positioned in the abdominal [...] case. Lana Parker MD Vascular Surgery [facility] 07-05-2022 Note Formatting of this n ote is different from the original. Date: 07/05/2022 Location: [facility] OR Name: Kathy Puri, : 1950, Diagnosis Pre-op Diagnosis * Infrarenal abdominal aortic aneurysm, without rupture (HCC) [I71.43] Post-op Diagnosis * Infrarenal abdominal aortic aneurysm, without rupture (HCC) [I71.43] Procedures ENDOVASCULAR REPAIR OF ABDOMINAL AORTIC ANEURYSM 55926 - VT EVASC RPR DPLMNT [id number] NDGFT OPEN FEMORAL ARTERY EXPOSURE FOR DELIVERY OF ENDOVASCULAR PROSTHESIS 14807 - VT OPN FEM ART EXPOS DLVR EVASC PROSTH [...] STENT CARLOS 10MM 7FR 25MM 135CM - [id number] Implanted Staff: Econometrician: Georgina Daley RN Nurse Practitioner: Jolynn Meza APRN - RATE EXAMINER Relief Scrub: Fercho Crystal Scrub Person: Landy [...] (two hours if receiving Vancomycin or flouroquinolone) [place] [facility] History and physical note H&P reviewed. [...] FOR DELIVERY OF ENDOVASCULAR PROSTHESIS (Bilateral) Location: [facility] OR [facility] Operating Room Surgeons: Lana Parker MD Chief [...] afib No date: Arthritis No date: Cancer ([facility]) ([facility]) Comment: ovarian No date: CHF (congestive heart failure) ([facility]) ([facility]) No date: CKD (chronic kidney disease) No date: COPD (chronic obstructive pulmonary disease) ([facility]) No date: Depression No date: GERD (gastroesophageal reflux disease) No date: Heart valve disease No date: Hyperlipidemia No date: Hypertension No date: Irritable bowel syndrome No date: Joint pain No date: Myocardial infarction ([facility]) ([facility]) No date: Pacemaker No date: PAD (peripheral artery disease) ([facility]) No date: Sleep apnea Comment: uses [...] OP cardiology 3) CAD - Hx of ID and stent insertion 1998, 2002 - Managed [...] Referral (if appropriate) documented in this encounter [facility] 06-28-2022 Telephone encounter Note I have tried to call patient back for 2 days her voice mail box is full. At no point in her OV or in surgical scheduling did she mention a [place] facility. I find nothing in her chart. Trying to find out what facility called. [facility] 06-28-2022 Miscellaneous Notes I have tried to call patient back for 2 days her voice mail box is full. At no point in her OV or in surgical scheduling did she mention a [place] facility. I find nothing in her chart. Trying to find out what facility called. ALYSSIA Spoke with Matt at nursing facility that patient resides in, nurse asking what medications are to be held/continued. Below information given SURGERY: ENDOVASCULAR REPAIR OF AAA DATE OF SURGERY: 07/05/2022 7:30 AM PRE TESTIN06/26/2022 12:00 AUTH #: [id number] CARDIAC CLEARANCE YES CARDIAC DR TREVIÑO , PULMONARY DR TOBAR 05/28/2022 POST OP OR OV: 07/17/2022 10:15 MEDS TO HOLD: ELIQUIS HOLD 48 HOURS PRIOR, THE MORNING OF SURGERY HOLD FUROSEMIDE MEDS TO CONTINUE: PLAVIX, OTHERS documented in this encounter [facility] 06-27-2022 Telephone encounter Note ALYSSIA Spoke with Matt at nursing facility that patient resides in, nurse asking what medications are to be held/continued. Below information given [facility] 06-27-2022 Miscellaneous Notes ALYSSIA Spoke with Matt at nursing facility that patient resides in, nurse asking what medications are to be held/continued. Below information given SURGERY: ENDOVASCULAR REPAIR OF AAA DATE OF SURGERY: 07/05/2022 7:30 AM PRE TESTIN06/26/2022 12:00 AUTH #: [id number] CARDIAC CLEARANCE YES CARDIAC DR TREVIÑO , PULMONARY DR TOBAR 05/28/2022 POST OP OR OV: 07/17/2022 10:15 MEDS TO HOLD: ELIQUIS HOLD 48 HOURS PRIOR, THE MORNING OF SURGERY HOLD FUROSEMIDE MEDS TO CONTINUE: PLAVIX, OTHERS documented in this encounter [facility] 06-26-2022 Note Patient: Kathy tierney Procedure Information Date/Time: 07/05/22729 Procedures: ENDOVASCULAR REPAIR OF ABDOMINAL AORTIC ANEURYSM OPEN FEMORAL ARTERY EXPOSURE FOR DELIVERY OF ENDOVASCULAR PROSTHESIS (Bilateral) Location: [facility] Operating Room Surgeons: Lana Parker MD Past Medical History: Past Medical History: No date: Anemia No date: Anxiety No date: Arrhythmia Comment: afib No date: Arthritis No date: Cancer ([facility]) ([facility]) Comment: ovarian No date: CHF (congestive heart failure) ([facility]) ([facility]) No date: CKD (chronic kidney disease) No date: COPD (chronic obstructive pulmonary disease) ([facility]) No date: Depression No date: GERD (gastroesophageal reflux disease) No date: Heart valve disease No date: Hyperlipidemia No date: Hypertension No date: Irritable bowel syndrome No date: Joint pain No date: Myocardial infarction ([facility]) ([facility]) No date: Pacemaker No date: PAD (peripheral artery disease) ([facility]) No date: Sleep apnea Comment: uses [...] work up ECHO and EF:Echo 06/11/22 ?Pacemaker [employer] scanned into media last check 02/2022 No echocardiogram results found for the past 14 days No results found for this or any previous visit. [facility] 06-26-2022 Note Comprehensive PreSur gical History and Physical Name: Kathy Puri : 1950 (Age-72 y.o.) Date of Service: Pt seen/examined on 06/26/2022 Procedure Information Date/Time: 07/05/22 0730 Procedures: ENDOVASCULAR REPAIR OF ABDOMINAL AORTIC ANEURYSM OPEN FEMORAL ARTERY EXPOSURE FOR DELIVERY OF ENDOVASCULAR PROSTHESIS (Bilateral) Location: [facility] Operating Room Surgeons: Lana Parker MD Chief [...] afib No date: Arthritis No date: Cancer ([facility]) ([facility]) Comment: ovarian No date: CHF (congestive heart failure) ([facility]) ([facility]) No date: CKD (chronic kidney disease) No date: COPD (chronic obstructive pulmonary disease) ([facility]) No date: Depression No date: GERD (gastroesophageal reflux disease) No date: Heart valve disease No date: Hyperlipidemia No date: Hypertension No date: Irritable bowel syndrome No date: Joint pain No date: Myocardial infarction ([facility]) ([facility]) No date: Pacemaker No date: PAD (peripheral artery disease) ([facility]) No date: Sleep apnea Comment: uses [...] PO) Take 1 (more content not included)... [facility] 06-26-2022 Note Comprehensive PreSur gical History and Physical Name: Kathy Puri : 1950 (Age-72 y.o.) Date of Service: Pt seen/examined on 06/26/2022 Procedure Information Date/Time: 07/05/22 2430 Procedures: ENDOVASCULAR REPAIR OF ABDOMINAL AORTIC ANEURYSM OPEN FEMORAL ARTERY EXPOSURE FOR DELIVERY OF ENDOVASCULAR PROSTHESIS (Bilateral) Location: [facility] Operating Room Surgeons: Lana Parker MD Chief [...] afib No date: Arthritis No date: Cancer ([facility]) ([facility]) Comment: ovarian No date: CHF (congestive heart failure) ([facility]) ([facility]) No date: CKD (chronic kidney disease) No date: COPD (chronic obstructive pulmonary disease) ([facility]) No date: Depression No date: GERD [...] PO) Take 1 (more content not included)... [facility] 06-14-2022 Telephone encounter Note SURGERY: ENDOVASCULAR REPAIR OF AAA DATE OF SURGERY: 07/05/2022 7:30 AM PRE TESTIN06/26/2022 12:00 AUTH #: [id number] CARDIAC CLEARANCE YES CARDIAC DR TREVIÑO , PULMONARY DR TOBAR 05/28/2022 POST OP OR OV: 07/17/2022 10:15 MEDS TO HOLD: ELIQUIS HOLD 48 HOURS PRIOR, THE MORNING OF SURGERY HOLD FUROSEMIDE MEDS TO CONTINUE: PLAVIX, OTHERS [facility] 06-13-2022 Telephone encounter Note Received final cardiac clearance and copy of Echo done 06/11/22. Dr. TreviñoGiuyp-Jdkqeuhdehie-iaqwwpo patient on 06/12/22 Dr. Zack TobarZahizb-Xnbgcawhg-Gxzsooa patient on 05/28/22. Dr. Parker reviewed the clearances and signed off on them. I will reach out to patient to schedule the surgery. [facility] 06-13-2022 Miscellaneous Notes Received final cardiac clearance and copy of Echo done 06/11/22. Dr. TreviñoQgdbq-Qsdflxgvrlam-equhmrc patient on 06/12/22 Dr. Zack TobarTsnfpd-Immqylpje-Bnuyfqz patient on 05/28/22. Dr. Parker reviewed the [...] to speak with Dr. Parker again. Patient# [phone] Clearance has been received from Dr. Treviño's [...] now on 06/11/22 at 2:00 pm at [facility]. documented in this encounter [facility] 06-12-2022 Telephone encounter Note Call placed to Dr. Treviño's office and spoke with Adeline to make sure patient had the Echo done on 06/11/22. Patient did complete the Echo per Adeline and our form for Cardiac Clearance/Optimization was re-faxed for confirmation after new Echo complete. Pending final outcome. [facility] 05-31-2022 Telephone encounter Note Noted will await Echocardiogram results. [facility] 05-30-2022 Telephone encounter Note I called [...] questions were answered to the patient's satisfaction. [email or web address] Work Phone: 05-30-2022 Telephone encounter Note Patient is going to be scheduled for: Endovascular Repair Of Abdominal Aortic Aneurysm, pending out come of Echocardiogram on 06/11/[address] Treviño. Patient is asking if she really has to have this surgery? She would like to speak with Dr. Parker again. Patient# [phone] [email or web address] 05-30-2022 Telephone encounter Note Clearance has been [...] now on 06/11/22 at 2:00 pm at [facility]. [facility] 05-27-2022 Note Vascular Surgery Out patient Consultation Chief Complaint Patient presents with New Patient (Dr Marroquin) Eval AAA; CTA 02/26/22 (in Pacs-measured by [employer] rep) Reason for Consult: Abdominal aortic aneurysm [...] disease) Hyperlipidemia Hypertension PAD (peripheral artery disease) ([facility]) Past SurgicalHistory: Past Surgical History: Procedure [...] file Food Insecurity: (more content not included)... [facility] 05-27-2022 History of Present illness Narrative Vascular [...] disease) Hyperlipidemia Hypertension PAD (peripheral artery disease) ([facility]) Past SurgicalHistory: Past Surgical History: Procedure [...] new ECHO had been ordered by her drill hand in [place] however she did not show for the appointment. This will need to be completed prior to consideration of intervention. We will also reach out to her sales support assistant in [place] as she has had a recent evaluation however these records are unavailable. Should she be a suitable candidate from a cardiac and pulmonary standpoint, we will plan to proceed with EVAR. All questions were answered. Lana Parker MD Vascular Surgery documented in this encounter [facility] 05-16-2022 Note Received referral fr om Dr Marroquin for Eval AAA. CTA 02/26/22 images in Pacs Measured by Shahab P. Tabatabai, Broker. Have tried to reach patient several times: 05/07/22; 05/10/22; 05/16/22 Voice Mailbox is full. To be scheduled with Dr Parker or Dr Whiting. Scanned into [facility] 10-10-2021 Note Patient Outreach (IN TMMN) KATHY PURI ([id number]) 1950 F Date Time Provider Department 10/10/21 CATHI HAYES During your visit today, we recorded the following information about you: Allergies As of Date: 10/10/2021 Noted Allergy Reaction LISINOPRIL 05/31/2019 14 - Other: See Comments Comments: Numbness to tongue Date Reviewed: 12/27/2020 Reviewed by: Yuly Galloway, CT - Fully Assessed Visit Diagnosis:Encounter for screening mammogram for breast cancer [Z12.31] Order(s):[facility] SCREENING [[id number]] Order #: [id number] FUTURE Prescriptions as of 10/15/2021 - clopidogrel [...] twice daily. Added at recent hospital stay [facility]. - BIPAP Initiate BiPAP @ 9/5 cm [...] Encounter Status:Closed by SURY RANDHAWA on 10/15/21 [facility] 06-23-2021 Miscellaneous Notes All scheduled in June Please call patient to schedule US ABB prior to appt 06/26/21 Please change her to an established patient she has seen a previous vascular provider in our office Thank you documented in this encounter [facility] 05-16-2021 Miscellaneous Notes Left message to [...] Yoanna Morris Pss documented in this encounter [facility] 11-22-[address] On the way. Dianne Mccullough LPN Please pull ER visit from yesterday. Thanks, Aminata Barrera APRN.KARLA documented in this encounter [facility] 09-19-2020 Miscellaneous Notes Second call placed [...] Florencia Hwang LPN documented in this encounter [facility] 08-22-2020 Miscellaneous Notes Thanks. Hospital notes collected and placed in you inbox on desk. Will see when gets released and schedule office visit. Reviewed. Please pull ER report tomorrow and will schedule OV once released from hospital. Daughter and Argelia FRANCE, want's pcp to know, first of all, patient just left via squad to [facility] ER, for c/o CP. Depending on how that goes, Argelia anticipates patient will f/u with pcp. Wanted pcp to know, patient is having terrible anxiety: unable to sleep, and it is getting the best of her. States something needs to be done. Patient saw hander in yesterday, who advised daughter, patient needs to contact pcp to treat her anxiety. Daughter states she does not want the treatment to be ativan or xanax. Wanted to give pcp a heads up that this is something that needs to be addressed in the near future. documented in this encounter [facility] documented as of this encounter (statuses as of 05/16/2021) [facility] History of Past illness Narrative* Problem [...] of this encounter (statuses as of 06/26/2021) [facility] History of Past illness Narrative* Problem [...] of this encounter (statuses as of 08/15/2021) [facility] History of Past illness Narrative* Problem [...] of this encounter (statuses as of 08/23/2021) [facility] History of Past illness Narrative* Problem [...] of this encounter (statuses as of 10/05/2021) [facility] History of Past illness Narrative* Problem [...] of this encounter (statuses as of 10/15/2021) [facility] note* Diagnosis Encounter for screening mammogram for breast cancer documented in this encounter [facility] note* Diagnosis Infrarenal abdominal aortic aneurysm (AAA) without rupture- Primary [facility] Diagnosis Infrarenal abdominal aortic aneurysm (AAA) without rupture (HCC)- Primary Infrarenal abdominal aortic aneurysm, without rupture (HCC) [facility]* Diagnosis Preop testing Unspecified pre-operative examination Infrarenal abdominal aortic aneurysm, without rupture (HCC) [facility] Diagnosis Infrarenal abdominal aortic aneurysm (AAA) without rupture (HCC)- Primary Infrarenal abdominal aortic aneurysm (AAA) without rupture (HCC) [facility]* Diagnosis Infrarenal abdominal aortic aneurysm (AAA) without rupture (HCC)- Primary Status post endovascular aneurysm repair (EVAR) [facility]* Diagnosis Status post endovascular aneurysm repair (EVAR)- Primary Pre-procedure lab exam Pre-procedural laboratory examination [facility]* Diagnosis 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) [facility]narrative)* Diagnostic Procedure Only (Routine) - Pending Review Specialty Diagnoses / Procedures Referred By Contac t Referred To Contact [facility] Diagnoses Encounter for screening mammogram for breast cancer Procedures [facility] SCREENING SCREENING MAMMOGRAPHY BI 2-VIEW BREAST INC CAD Cathi Hayes MD [address] [place] [address] [facility] [address] [place] [address] Referral ID Status Reason Start Date Expiration Date Visits Requested Visits Authorized [id number] Pending Review Auto-Generat ed Referral 10/10/2021 11/09/2022 1 1 [facility] Advance Directives Documents on File Type Date Recorded 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 Advance Directive(s) 09/08/2012 10:30 AM Documents on File Type Date Recorded 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 anation Advance Directive(s) 09/08/2012 10:30 AM [...] Lana Parker MD [address] [place] [id number] Referral ID Status Reason Start Date Expiration Date V isits Requested Visits Authorized [id number] Pending Review 07/24/2022 01/20/2023 1 1 Specialty Diagnoses / Procedures Referred By Contac t Referred To Contact Radiology Diagnoses Status post endovascular aneurysm repair (EVAR) Procedures CTA abdomen pelvis angiogram w and/or wo IV contrast Lana Parker MD [address] [place] [address] Referral ID Status Reason Start Date Expiration Date V isits Requested Visits Authorized [id number] Pending Review 08/19/2022 02/15/2023 1 1 Summary [...] or prosecute any alcohol or drug abuse patient.[facility] the event this information is protected by the Federal Confidentiality of Alcohol and Drug Abuse Patient Records regulations: The Federal rules restrict any use of the information to criminally investigate or prosecute any alcohol or drug abuse patient.[facility] the event this information is protected by the Federal Confidentiality of Alcohol and Drug Abuse Patient Records regulations: The Federal rules restrict any use of the information to criminally investigate or prosecute any alcohol or drug abuse patient.[facility] the event this information is protected by the Federal Confidentiality of Alcohol and Drug Abuse Patient Records regulations: The Federal rules restrict any use of the information to criminally investigate or prosecute any alcohol or drug abuse patient.[facility] Hospital[facility] the event this information is protected by the Federal Confidentiality of Alcohol and Drug Abuse Patient Records regulations: The Federal rules restrict any use of the information to criminally investigate or prosecute any alcohol or drug abuse patient.[facility] Hospital[facility] the event this information is protected by the Federal Confidentiality of Alcohol and Drug Abuse Patient Records regulations: The Federal rules restrict any use of the information to criminally investigate or prosecute any alcohol or drug abuse [facility] Reason for Visit (unrecogniz ed section [...] aortic aneurysm, without rupture (HCC) [I71.43] Procedures VT EVASC RPR DPLMNT [id number]-MX-[id number] NDGFT VT OPN FEM ART EXPOS DLVR EVASC PROSTH UNI ENDOVASCULAR REPAIR OF ABDOMINAL AORTIC ANEURYSM OPEN FEMORAL ARTERY EXPOSURE FOR DELIVERY OF ENDOVASCULAR PROSTHESIS Lana Parker MD [address] [facility] [address] [place] [address] [address] [place] [address] Referral ID Status Reason Start Date Expiration Date Visits Re quested Visits Authorized [id number] 1 1 Reason Comments Post-op 1st PO EVAR of AAA 0 07/05/2022 Reason Comments Post-op EVAR 07/05/2022 / Dis cuss CTA 08/08/2024 Reason Comments Heart Problem Pt arrived by EMS fr [facility] (blue sheet) due cardiac issues( AAA leaking) . Upon assessment pt is a&ox3 msps intact - cp - sob - dizziness - n/v - pain. 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 Ector Whiting MD [address] [place] [address] [address] [address] [place] [address] Referral ID Status Reason Start Date Expiration Date Visits Re quested Visits Authorized [id number] 1 1 Care Teams (unrecognized sec tion and content) [employer] Installer Relationship Specialty Start Date End Date Cathi Hayes MD [address] [place], [place] [id number] PCP - General Family Practice 05/16/21 [employer] Installer Relationship Specialty Start Date End Date Cathi Hayes MD [address] [place], [place] [id number] PCP - General Family Practice 01/29/17 12/24/20 Ector Jewell(Historical), PCP - General Family Practice 12/25/20 Cathi Hayes MD [address] [facility] [place] [address] PCP - General Family Practice 05/16/21 [employer] Installer Relationship Specialty Start Date End Date Cathi Hayes MD [address] [facility] [place] [address] PCP - General Family Practice 01/29/17 12/24/20 Ector Jewell(Historical)MD PCP - General Family Practice 12/25/20 Cathi Hayes MD [address] [facility] [place] [address] PCP - General Family Practice 05/16/21 [employer] Installer Relationship Specialty Start Date End Date Cathi Hayes MD [address] [place] [address] PCP - General Family Practice 05/16/21 [employer] Installer Relationship Specialty Start Date End Date Alexandre Ayoub MD [address] [place] [address] PCP - General 05/27/22 Lana Parker MD [address] [facility] [address] [place] [address] Consulting Physician Vascular Surgery 05/27/22 [employer] Installer Relationship Specialty Start Date End Date Alexandre Ayoub MD [address] [place] [address] PCP - General Charge Histotechnologist 05/27/22 Lana Parker MD [address] [place] [address] Surgeon Vascular Surgery 05/27/22 [place] [address] Vp Strategy Internal Medicine Cardiovascular Disease 05/28/22 Zack Tobar [address] [place] [address] Sleep Technician Pulmonology 05/28/22 Sharlene Moffett -Device nurse at Dr Treviño's Office 05/29/22 [employer] Installer Relationship Specialty Start Date End Date Alexandre Ayoub MD [address] [place] [address] PCP - General Charge Histotechnologist 05/27/22 Lana Parker MD [address] [facility] [address] [place] [address] Surgeon Vascular Surgery 05/27/22 Jaime Treviño [address] [facility] [place] [address] Vp Strategy Internal Medicine Cardiovascular Disease 05/28/[address] [place] [address] Sleep Technician Pulmonology 05/28/22 Sharlene Moffett -Device nurse at Dr Treviño's Office 05/29/22 [employer] Installer Relationship Specialty Start Date End Date Alexandre Ayoub MD [address] [place] [address] PCP - General Charge Histotechnologist 05/27/22 Lana Parker MD [address] [facility] [address] [place] [address] Surgeon Vascular Surgery 05/27/22 Jaime Treviño [address] [place] [address] Vp Strategy Internal Medicine Cardiovascular Disease 05/28/22 Zack Tobar [place] [address] Sleep Technician Pulmonology 05/28/22 Sharlene Moffett -Device nurse at Dr Treviño's Office 05/29/22 [employer] Installer Relationship Specialty Start Date End Date Alexandre Ayoub MD [address] [place] [address] PCP - General Charge Histotechnologist 05/27/22 Lana Parker MD [address] [address] Surgeon Vascular Surgery 05/27/22 Jaime Treviño [address] [facility] [place] [address] Vp Strategy Internal Medicine Cardiovascular Disease 05/28/22 [place] [address] Sleep Technician Pulmonology 05/28/22 Sharlene Moffett -Device nurse at Dr Treviño's Office 05/29/22 [employer] Installer Relationship Specialty Start Date End Date Alexandre Ayoub MD [address] [place] [address] PCP - General Charge Histotechnologist 05/27/22 Lana Parker MD [address] [address] Surgeon Vascular Surgery 05/27/22 Jaime Treviño [address] [place] [address] Vp Strategy Internal Medicine Cardiovascular Disease 05/28/22 Zack Tobar [address] [place] [address] Sleep Technician Pulmonology 05/28/22 Sharlene Moffett -Device nurse at Dr Treviño's Office 05/29/22 [employer] Installer Relationship Specialty Start Date End Date Alexandre Ayoub MD [address] [place] [address] PCP - General Charge Histotechnologist 05/27/22 Lana Parker MD [address] [facility] [address] [place] [address] Surgeon Vascular Surgery 05/27/22 Jaime Treviño [address] [facility] [place] [address] Vp Strategy Internal Medicine Cardiovascular Disease 05/28/22 Zack Tobar [address] [place] [address] Sleep Technician Pulmonology 05/28/22 Sharlene Moffett -Device nurse at Dr Treviño's Office 05/29/22 [employer] Installer Relationship Specialty Start Date End Date Alexandre Ayoub MD [address] [place] [address] PCP - General Charge Histotechnologist 05/27/22 Lana Parker MD [address] [facility] [address] [place] [address] Surgeon Vascular Surgery 05/27/22 Pablito Treviñoril [address] [facility] [place] [address] Vp Strategy Internal Medicine Cardiovascular Disease 05/28/22 Zack Tobar [address] [place] [address] Sleep Technician Pulmonology 05/28/22 Sharlene Moffett -Device nurse at Dr Treviño's Office 05/29/22 [employer] Installer Relationship Specialty Start Date End Date Alexandre Ayoub MD [address] [place] [address] PCP - General Charge Histotechnologist 05/27/22 Lana Parker MD [address] [place] [address] Surgeon Vascular Surgery 05/27/22 Jaime Treviño [address] [place] [address] Vp Strategy Internal Medicine Cardiovascular Disease 05/28/22 Zack Tobar [address] [facility] [place] [address] Sleep Technician Pulmonology 05/28/22 Sharlene Moffett -Device nurse at Dr Treviño's Office 05/29/22 [employer] Installer Relationship Specialty Start Date End Date Alexandre Ayoub MD [address] [place], [place] [address] PCP - General Charge Histotechnologist 05/27/22 Lana Parker MD [address] [facility] [address] [place] [address] Surgeon Vascular Surgery 05/27/22 Jaime Treviño [address] [place] [address] Vp Strategy Internal Medicine Cardiovascular Disease 05/28/22 Zack Tobar [address] [facility] [place] [address] Sleep Technician Pulmonology 05/28/22 Sharlene Moffett -Device nurse at [...] DATE CREATED AUTHOR AUTHOR'S ORGANIZ ATION 05/14/2023 [facility] FOR RECORDS PERTAINING TO PATIENTS WHO ARE [...] BE BASED ON THE PRIMARY CLINICAL RECORDS. [employer] [facility]. provides no warranty or guarantee of the accuracy or completeness of information in this document.
[2023-05-16 20:59] VITALS: BP 116/62; PULSE 71; RESP 12; TEMP 36.6; O2SAT 95
[2023-05-16 21:50] VITALS: BMI 23.6
[2023-05-16 21:51] VITALS: BP 114/59; PULSE 69; RESP 14; TEMP 35.9; O2SAT 98
--- OUTSIDE RECORDS SUMMARY | 2023-05-16 22:11 | XMS RPT_ITS | CCD ---
Author Name Unknown Address [address] [place] [address] Organization [facility] Care Team Providers Care Frameman Name Role Phone Abigail JEAN-BAPTISTE, Cathi Hinojosa Primary Care Provider Abigail JEAN-BAPTISTE, Cathi Hinojosa Primary Care Provider Ector Jewell MD(Historical) Primary Care Provi mariya Unavailable Anitra JEAN-BAPTISTE, Alexandre Yeager Primary Care Provider Keith JEAN-BAPTISTE, Lana Unavailable Alexandre Ayoub MD Primary Care Provider [phone] Keith JEAN-BAPTISTE, Lana Unavailable [phone] Kamila, [place] Unavailable Zack Tobar Unavailable KEITH, LANA Attending [...] Primary Care Provider Keith JEAN-BAPTISTE, Lana Unavailable [phone] Kamila, [place] Unavailable Zack Tobar Unavailable Allergies Allergy Classification Reported Allergen(s) Allergy Type Date of Onset Reaction(s) Facility (6 sources) Lisinopril Drug Allergy 0 Other: See Comments [facility] (13 sources) Lisinopril Allergy to substance 0 [facility] Medications Current Medications Medication Drug Class(es) [...] temperature 97.5 [degF] Kanwal Nuñez Work Phone: [employer] 05-07-2023 15:38-0500 Diastolic blood pressure 66 mm[Hg] Kanwal Durbin MD Work Phone: [employer] 05-07-2023 15:38-0500 Heart rate 82 /min Kanwal Nuñez Work Phone: [employer] 05-07-2023 15:38-0500 Respiratory rate 16 /min Kanwal Nuñez Work Phone: [employer] 05-07-2023 15:38-0500 SaO2% (BldA) [Mass fraction] 93 % Kanwal Durbin MD Work Phone: [employer] 05-07-2023 15:38-0500 Systolic blood pressure 151 mm[Hg] Kanwal Durbin MD Work Phone: [facility] [employer] 05-07-2023 03:10-0500 Body height 157.5 cm Kanwal Nuñez Work Phone: [facility] [employer] 05-07-2023 03:10-0500 Body mass index (BMI) [Ratio] 25.05 kg/m2 Kanwal Durbin MD Work Phone: [facility] [employer] 05-07-2023 03:10-0500 Body weight 62.14 kg Kanwal Nuñez Work Phone: [facility] [employer] 08-19-2022 09:43-0400 Body temperature 96.91 [degF] Lana Parker MD Work Phone: [facility] [employer] 08-19-2022 09:43-0400 Diastolic blood pressure 73 mm[Hg] Lana Parker MD Work Phone: [facility] [employer] 08-19-2022 09:43-0400 Heart rate 74 /min Lana Parker MD Work Phone: [facility] [employer] 08-19-2022 09:43-0400 Systolic blood pressure 132 mm[Hg] Lana Parker MD Work Phone: [facility] [employer] 07-24-2022 13:46-0400 Body temperature 97.3 [degF] Lana Parker MD Work Phone: [facility] [employer] 07-24-2022 13:46-0400 Diastolic blood pressure 67 mm[Hg] Lana Parker MD Work Phone: [facility] [employer] 07-24-2022 13:46-0400 Heart rate 61 /min Lana Parker MD Work Phone: [facility] [employer] 07-24-2022 13:46-0400 Systolic blood pressure 132 mm[Hg] Lana Parker MD Work Phone: [facility] [employer] 07-10-2022 11:06-0400 Body temperature 97.81 [degF] Lana Parker MD Work Phone: [facility] [employer] 07-10-2022 11:06-0400 Diastolic blood pressure 48 mm[Hg] Lana Parker MD Work Phone: [facility] [employer] 07-10-2022 11:06-0400 Heart rate 61 /min Lana Parker MD Work Phone: [facility] [employer] 07-10-2022 11:06-0400 Respiratory rate 18 /min Lana Parker MD Work Phone: [facility] [employer] 07-10-2022 11:06-0400 SaO2% (BldA) [Mass fraction] 96 % Lana Parker MD Work Phone: [facility] [employer] 07-10-2022 11:06-0400 Systolic blood pressure 130 mm[Hg] Lana Parker MD Work Phone: [facility] [employer] 07-09-2022 09:22-0400 SaO2% (BldA) [Mass fraction] 88.5 % Lana Parker MD Work Phone: [facility] [employer] 07-07-2022 10:40-0400 Body height 152.4 cm Lana Parker MD Work Phone: [facility] [employer] 05-27-2022 09:04-0400 Body temperature 96.91 [degF] Lana Parker MD Work Phone: [facility] [employer] 05-27-2022 09:04-0400 Body weight 59.42 kg Lana Parker MD Work Phone: [facility] [employer] 05-27-2022 09:04-0400 Diastolic blood pressure 80 mm[Hg] Lana Parker MD Work Phone: [facility] [employer] 05-27-2022 09:04-0400 Systolic blood pressure 132 mm[Hg] Lana Parker MD Work Phone: [facility] Encounters Encounter Date Encounter Type Care Provider Facility Start: 05-07-2023 End: 05-07-2023 [facility] Start: 05-06-2023 End: 05-07-2023 Evaluation [...] malign ant neoplasm of colon [facility] Start: 03-05-2028 Urine microalbumin profile DTAP,TDAP,TD (3 - Td or Tdap) [facility] Start: 11-25-2025 Colonoscopy COLONOSCOPY [facility] Start: 11-25-2025 COLORECTAL CANCER SCREENING COLORECTAL CANCER SCREENING [facility] Start: 12-27-2024 LIPID SCREEN LIPID SCREEN [facility] Start: 11-22-2023 DIABETES SCREEN DIABETES SCREEN [facility] Start: 07-11-2023 Creatinine measurement Creatinine [facility] Start: 07-11-2023 Potassium measurement Potassium Leve l [facility] Start: 07-10-2023 Diabetes mellitus screening Diabetes Screening [facility] Start: 06-27-2023 Creatinine measurement Creatinine [facility] Start: 06-27-2023 Potassium measurement Potassium Leve l [facility] Start: 02-18-2023 End: 08-20-2023 Creatinine [Mass/volume] in Serum or Plasma Creatinine, Serum Lab Routine Status post endovascular aneurysm repair (EVAR) Pre-procedure lab exam Expected: 02/18/2023 (Approximate), Expires: 08/20/2023 [facility] Immunizations Immunization Date Immunization Notes Care Provider Fa cility 01-03-2021 influenza virus vacc ine, unspecified formulation Lana Parker MD Work Phone: [facility] [employer] 09-22-2020 zoster vaccine recombinant Aminata Barrera NEUROLOGY TECHNICIAN.[employer] Work Phone: [facility] Work Phone: 07-20-2020 COVID-19 vaccine, fu ll dose (MODERNA) Aminata Barrera NEUROLOGY TECHNICIAN.ORACLE SECURITY CONSULTANT Work Phone: [facility] Work Phone: 06-22-2020 COVID-19 vaccine, fu ll dose (MODERNA) Aminata Podlogar NEUROLOGY TECHNICIAN.[facility] Work Phone: [facility] Work Phone: 05-17-2020 zoster vaccine recombinant Aminata Podlogar NEUROLOGY TECHNICIAN.[facility] Work Phone: [facility] Work Phone: 04-26-2019 influenza, high dose seasonal, preservative-free Aminata Podlogar NEUROLOGY TECHNICIAN.[facility] Work Phone: [facility] 03-05-2018 tetanus and diphther ia toxoids, adsorbed, preservative free, for adult use (5 Lf of tetanus toxoid and 2 Lf of diphtheria toxoid) Aminata Podlogar NEUROLOGY TECHNICIAN.[facility] Work Phone: [facility] 12-08-2017 influenza, high dose seasonal, preservative-free Aminata Podlogar NEUROLOGY TECHNICIAN.[facility] Work Phone: [facility] 09-05-2017 pneumococcal polysaccharide vaccine, 23 valent Aminata Podlogar NEUROLOGY TECHNICIAN.[facility] Work Phone: [facility] 01-29-2017 influenza, high dose seasonal, preservative-free Aminata Podlogar NEUROLOGY TECHNICIAN.[facility] Work Phone: [facility] 01-29-2017 pneumococcal conjuga te vaccine, 13 valent Aminata Podlogar NEUROLOGY TECHNICIAN.[facility] Work Phone: [facility] 12-15-2013 influenza, injectabl e, quadrivalent, contains preservative Aminata Podlogar NEUROLOGY TECHNICIAN.[facility] Work Phone: [facility] 08-31-2011 pneumococcal polysaccharide vaccine, 23 valent Aminata Podlogar NEUROLOGY TECHNICIAN.[facility] Work Phone: [facility] Payers Date Payer Category Payer Medicare [id number] 2022 Medicare [id number] 2020 Unknown [employer]M [employer] S AND BLUE [facility] [id number] 2020-Present [phone] [address] [place] [address] [facility] [id number] 2014 Medicaid MEDICAID [facility] MEDICAID [id number] 2014-Present [phone] [address] [place] [address] Medicaid [id number] Social History Date Type Detail Facility Start: 04-28-2017 End: 06-26-2022 Tobacco smoking status NHIS Ex-smoker [facility] End: 03-17-2020 History of tobacco use Current smoker [facility] End: 03-17-2020 History of tobacco use Cigarette Smoker [facility] Start: 04-28-2017 End: 06-26-2022 Tobacco use and exposure Smokeless tobacco non-user [facility] Start: 11-20-2020 End: 12-27-2020 Alcohol intake Current non-drinker of alcohol (finding) [facility] Start: 09-14-2020 History SDOH Alcohol Frequency 1 [facility] Start: 09-14-2020 History SDOH Alcohol Std Drinks 98 [facility] Start: 09-14-2020 History SDOH Social Connections Phone 2 [facility] Start: 09-14-2020 History SDOH Social Connections Get Together 3 [facility] Start: 09-14-2020 History SDOH Social Connections Living 5 [facility] Start: 09-14-2020 Education 10 [facility] Start: 09-07-2020 Tobacco Comment <5 per day, pt reported starting 04/2019 [facility] Start: 1950 Sex Assigned At Female [facility] Start: 06-18-2021 End: 08-19-2022 Exposure to SARS-CoV-2 (event) Not sure [facility] Start: 11-09-2014 Tobacco Comment <5 per day [facility] Start: 05-27-2022 Alcohol intake Lifetime non-d rashard (finding) [facility] Start: 1950 Sex Assigned At Not on file S [facility] Start: 06-26-2022 End: 08-19-2022 Cigarettes smoked current (pack per day) - Reported 0.5 [facility] Start: 06-26-2022 End: 08-19-2022 Alcohol intake Ex-drinker (finding) [facility] Start: 06-26-2022 Alcohol Comment former social drinker; none for years [facility] Start: 08-19-2022 Tobacco use panel [facility] Medical Equipment Procedure Code Equipment Code Equipment Origin al Text Equipment Identifier Dates Stent Carlos 10mm 7 fr 25mm 135cm - [id number] Start: 07-05-2022 Tm Abdominal Raul nt Graft System [id number] Start: 07-05-2022 Clinical Notes 12-06-2015 to 05-07-2023 Jane Coates RN - 05/07/2023 5:11 PM Pieter Coates RN - 05/07/2023 5:11 PM Pieter Coates RN - 05/07/2023 9:24 AM Nellie Wagner MD - 05/07/2023 4:24 PM ESTDischarge Instructions Note Date & Type Note Facility 05-07-2023 Note [facility] Vascular Surgery Discharge Summary Name: Kathy Puri [...] Wagner MD General Surgery PGY-1 Pager [phone] [facility] 05-07-2023 Nurse Note Tele and IV discontinued. Patient educated on meds and discharge instructions. States she understands. Has all belongings in hand. [facility] 05-07-2023 Nurse Note Tele and IV [...] anyway. documented in this encounter [facility] 05-07-2023 Hospital course Narrative [facility] Vascular Surgery Discharge Summary [...] [phone] documented in this encounter [facility] 05-07-2023 Hospital Discharge instructions Papo Wagner [...] distention. documented in this encounter [facility] 05-07-2023 Note Formatting of this n ote might be different from the original. Care Managment Initial Assessment Date: 05/07/2023 Patient Name: Kathy Puri : 1950 Patient Information Source of Information: Patient Cognition/Language: WFL - Within Functional Limits Permission given to speak with patient junior sales representative/caregiver as indicated: Yes Confirmation of Payer with patient/family: Yes Payer Name: [facility] Medicare : No Confirmation of [...] Living Prescription Coverage: Yes Pharmacy Used: [facility] Medication Management: Prescription pick-up Transportation/Shopping: Assistance Provider [...] this time. Nela Vera RN [facility] 05-07-2023 Note Formatting of this n ote might be different from the original. Care Managment Initial Assessment Date: 05/07/2023 Patient Name: Kathy Puri : 1950 Patient Information Source of Information: Patient Cognition/Language: WFL - Within Functional Limits Permission given to speak with patient junior sales representative/caregiver as indicated: Yes Confirmation of [...] Living Prescription Coverage: Yes Pharmacy Used: [facility] Medication Management: Prescription pick-up Transportation/Shopping: Assistance Provider [...] TBD at this time. Nela Vera RN [facility] 05-07-2023 Miscellaneous Notes Care Managment Initial Assessment Date: 05/07/2023 Patient Name: Kathy Puri : 1950 Patient Information Source of Information: Patient Cognition/Language: WFL - Within Functional Limits Permission given to speak with patient junior sales representative/caregiver as indicated: Yes Confirmation of Payer with patient/family: Yes Payer Name: [facility] Medicare : No Confirmation of [...] Living Prescription Coverage: Yes Pharmacy Used: [facility] Medication Management: Prescription pick-up Transportation/Shopping: Assistance Provider [...] Progressing documented in this encounter [facility] 05-07-2023 Nurse Note Walked into pt room at 0915 and wrong breakfast tray was sitting on bedside table. Pt has already eaten everything. MD Wagner and nolberto notified. Pt was informed this morning she was NPO today and she ate the tray anyway. [facility] 05-07-2023 Note Formatting of this n [...] team and they would evaluate. [facility] 05-07-2023 Note Formatting of this n [...] the day team and they would evaluate. [facility] 05-07-2023 Note Problem: Pain - Adul t Goal: Verbalizes/displays adequate comfort level or baseline comfort level Outcome: Progressing Problem: Safety - Adult Goal: Free from fall injury Outcome: Progressing [facility] 05-07-2023 Plan of care note Problem: Pain - Adult Goal: Verbalizes/displays adequate comfort level or baseline comfort level Outcome: Progressing Problem: Safety - Adult Goal: Free from fall injury Outcome: Progressing [facility] 05-07-2023 Note Attestation signed by Lana Parker MD at 05/07/2023 1:20 PM I saw and evaluated the patient. I agree with the findings and plan of care as documented in the resident?s note unless otherwise noted below. The patient has a stable aneurysm sac size at 5.2 cm and no clear evidence of endoleak on her CT performed at [place] which was reviewed in the PACS system. [...] Parker), (additional history below) who presents to [facility] with a chief complaint of abdominal pain/confusion. Patient was transferred from [facility] for evaluation by [facility] vascular surgery team. Imaging completed at [facility], demonstrated concern for endoleak. Vascular surgery [...] of Systems [employer] (more content not included)... [facility] 05-07-2023 History and physical note Vascular Surgery H&P Note Reason for Consult: concern for endoleak History Of Present Illness: Kathy Puri is a 73 y.o. female with PMHx significant for hypertension, hyperlipidemia, CKD, myocardial infarction, CHF, COPD, GERD, BELLE, anemia, IBS, PAD, and PSHx of cardiac stents, pacemaker placement, hysterectomy, tonsillectomy, EVAR (2022, Dr. Parker), (additional history below) who presents to [facility] with a chief complaint of abdominal pain/confusion. Patient was transferred from [facility] for evaluation by [facility] vascular surgery team. Imaging completed at [facility], demonstrated concern for endoleak. Vascular surgery [...] intervention tonight Will admit to vascular surgery N.p.o./NYVF Hold anticoagulation Imaging to be reviewed by [...] Department of Surgery General Surgery Resident Pager: [phone] PAGING / HITbills Secure Chat: From 6a-6p (- weekends): Epic Secure Chat (FIRST) or Pager above (EMERGENT/Second) From 6p-6a (- weekends): Find resident physician under [facility] Surgery - General - Surgical ICU Patients: [...] This note may have been dictated using Alfalight Edition and/or [employer]Plus Voice Recognition Feature. The document was proofread; however, unrecognized voice recognition geothermal electrical engineer errors may be present. Associated attestation - Lana Parker MD - 05/07/2023 1:20 PM EST I saw and evaluated the patient. I agree with the findings and plan of care as documented in the resident s note unless otherwise noted below. The patient has a stable aneurysm sac size at 5.2 cm and no clear evidence of endoleak on her CT performed at [place] which was reviewed in the PACS system. [...] diet and resume home medications. [facility] 05-07-2023 History and physical note Vascular Surgery H&P Note Reason for Consult: concern for endoleak History Of Present Illness: Kathy Puri is a 73 y.o. female with PMHx significant for hypertension, hyperlipidemia, CKD, myocardial infarction, CHF, COPD, GERD, BELLE, anemia, IBS, PAD, and PSHx of cardiac stents, pacemaker placement, hysterectomy, tonsillectomy, EVAR (2022, Dr. Parker), (additional history below) who presents to [facility] with a chief complaint of abdominal pain/confusion. Patient was transferred from [facility] for evaluation by [facility] vascular surgery team. Imaging completed at [facility], demonstrated concern for endoleak. Vascular surgery [...] Date Anemia Anxiety Arrhythmia afib Arthritis Cancer ([facility]) ([facility]) ovarian CHF (congestive heart failure) ([facility]) ([facility]) CKD (chronic kidney disease) COPD (chronic obstructive pulmonary disease) ([facility]) Depression GERD (gastroesophageal reflux disease) Heart valve disease Hyperlipidemia Hypertension Irritable bowel syndrome Joint pain Myocardial infarction ([facility]) ([facility]) Pacemaker PAD (peripheral artery disease) ([facility]) Sleep apnea uses CPAP Past Surgical [...] Department of Surgery General Surgery Resident Pager: [phone] PAGING / HITbills Secure Chat: From 6a-6p (- weekends): Epic Secure Chat (FIRST) or Pager above (EMERGENT/Second) From 6p-6a (-s): Find resident physician under [facility] Surgery - General - Surgical ICU Patients: [...] This note may have been dictated using Alfalight Edition and/or [employer] Voice Recognition Feature. The document was proofread; however, unrecognized voice recognition geothermal electrical engineer errors may be present. Associated attestation - Lana Parker MD - 05/07/2023 1:20 PM EST I saw and evaluated the patient. I agree with the findings and plan of care as documented in the resident s note unless otherwise noted below. The patient has a stable aneurysm sac size at 5.2 cm and no clear evidence of endoleak on her CT performed at [place] which was reviewed in the PACS system. [...] medications. documented in this encounter [facility] 05-07-2023 Emergency department Note Surgery at bedside. Sánchez Jimenez 05/07/23 0042 [facility] 05-07-2023 Emergency department Note Surgery at bedside. Sánchez Jimenez 05/07/23 0042 Emergency Department Encounter [facility] EMERGENCY DEPT Patient: Kathy Puri : 1950 [...] FiO2 (%) Left arm -- Focused exam: [id number] in no acute distress. Alert and oriented [...] Culture. Procedure Abnormality Status --------- ------ Complete Urinalysis[[id number]] Please view results for these tests on [...] Chest x-ray with opacities appreciated. EKG with Champion rhythm with a rate of [address] elevations or depressions concerning for STEMI. Patient with nonspecific ST depressions in the lateral leads present on previous EKG from June 2022. Reviewed paperwork from [facility]. Urinalysis on that paperwork with no [...] 0131 documented in this encounter [facility] 05-06-2023 Physician Emergency department Note Emergency Department Encounter [facility] EMERGENCY DEPT Patient: Kathy Puri : 1950 [...] FiO2 (%) Left arm -- Focused exam: [id number] in no acute distress. Alert and oriented [...] Culture. Procedure Abnormality Status --------- ------ Complete Urinalysis[[id number]] Please view results for these tests on [...] EKG from June 2022. Reviewed paperwork from [facility]. Urinalysis on that paperwork with no [...] mis-transcribed.) MD Kanwal Sherman MD 05/07/23 0131 [employer] [facility] Phone: 09-18-2022 Note Patient Outreach (IN [facility]) KATHY PURI ([id number]) 1950 F Date Time Provider Department 09/18/22 CATHI HAYES During your visit today, we recorded the following information about you: Allergies As of Date: 09/18/2022 Noted Allergy Reaction LISINOPRIL 05/31/2019 14 - Other: See Comments Comments: Numbness to tongue Date Reviewed: 12/27/2020 Reviewed by: Yuly Galloway, NARENDRA - Fully Assessed Visit Diagnosis:Encounter for screening mammogram for breast cancer [Z12.31] Order(s):[facility] SCREENING [[id number]] Order #: [id number] FUTURE Prescriptions as of 09/23/2022 - clopidogrel [...] twice daily. Added at recent hospital stay [facility]. - BIPAP Initiate BiPAP @ 9/5 [...] Encounter Status:Closed by EDIS, PRODUSER on 09/23/22 [facility] 08-19-2022 History of Present illness Narrative [...] care everywhere as there were performed in [place]. Past Surgical History: Procedure Laterality Date ABDOMINAL [...] Surgery documented in this encounter [facility] 07-24-2022 History of Present illness Narrative [...] Surgery documented in this encounter [facility] 07-10-2022 Nurse Note Discharged to home. Instructions given to pt and her sister. Prescriptions filled by meds to beds pharmacy. [facility] 07-10-2022 Nurse Note Discharged to home. [...] BP. documented in this encounter [facility] 07-10-2022 Note Vascular Surgery Dis charge [...] the patient discharged on a statin? Yes [facility] 07-10-2022 Hospital course Narrative Vascular Surgery [...] Yes documented in this encounter [facility] 07-10-2022 Note Department of Surger y [...] Problem: Infrarenal abdomina (more content not included)... [facility] 07-10-2022 History of Present illness Narrative [...] This note may have been dictated using Actifio Practice Edition and/or SyndicatePlus Voice Recognition Feature. The document was proofread; however, unrecognized voice recognition geothermal electrical engineer errors may be present Physical Therapy Facility/Department: [...] history of Anemia, Anxiety, Arrhythmia, Arthritis, Cancer ([facility]) ([facility]), CHF (congestive heart failure) ([facility]) ([facility]), CKD (chronic kidney disease), COPD (chronic obstructive pulmonary disease) ([facility]), Depression, GERD (gastroesophageal reflux disease), Heart valve disease, Hyperlipidemia, Hypertension, Irritable bowel syndrome, Joint pain, Myocardial infarction ([facility]) ([facility]), Pacemaker, PAD (peripheral artery disease) ([facility]), and Sleep apnea. has a past [...] discharge with Dr. Parker. Department of Surgery #[id number] Images from the original note were not [...] Will discuss with Dr. Parker NG / HITbills Secure Chat: From 6a-6p (-s): HITbills Secure Chat (FIRST) or Pager above (EMERGENT/Second) [...] This note may have been dictated using Actifio Practice Edition and/or SyndicatePlus Voice Recognition Feature. 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 She will have assistance from her mother [...] Anxiety, Arrhythmia, Arthritis, Cancer (CMS/HCC) ([facility]), CHF (congestive heart failure) (CMS/HCC) ([facility]), CKD (chronic kidney disease), COPD (chronic obstructive pulmonary disease) ([facility]), Depression, GERD (gastroesophageal reflux disease), Heart valve disease, Hyperlipidemia, Hypertension, Irritable bowel syndrome, Joint pain, Myocardial infarction (CMS/HCC) ([facility]), Pacemaker, PAD (peripheral artery disease) ([facility]), and Sleep apnea. has a past [...] With device?: No Transfer Assistance: Independent Active Steel Rigger: Yes Mode of Transportation: Car Additional Comments: [...] Other exercises 1: IS x 10 to 7070-0527 ml Plan Times per Week: 5 Times [...] Raji Ontiveros M.D. Department of Surgery Pager: [phone] PAGING / HITbills Secure Chat: From 6a-6p (- weekends): HITbills Secure Chat (FIRST) or Pager above (EMERGENT/Second) From 6p-6a (-s): Find resident provider under [facility] Surgery - General - Surgical ICU Patients: [...] This note may have been dictated using Actifio Practice Edition and/or SyndicatePlus Voice Recognition Feature. The document was proofread; however, unrecognized voice recognition geothermal electrical engineer errors may be present. Associated attestation - [...] will modify diet to include 3-4 g DARIEN low sodium restriction, which is more appropriate [...] assess Fluid Accumulation: No significant fluid accumulation [place] Hand Strength: Not Performed Nutrition Assessment: +Nutrition screen. 72F w/ PMHx: CAD s/p PCI, CHF with reduced EF (11/2021 of 15-20%; 06/11/22 EF 30%), Pacemaker for tachy-erica syndrome, atrial fibrillation on Eliquis, COPD, and emphysema. She also has a history of bilateral SFA stenting. Admitted to [facility] for infrarenal abdominal aortic aneurysm without rupture, POD#2 s/p EVAR. Having hypertensive episodes this admission, prn antihypertensive given. Advanced to a regular diet, overall vance diet. Having some back pain, likely from stent placement. Endorses some nausea today w/ associated emesis. Hypoactive BS. Estimated Daily Nutrient Needs: Energy Requirements Based On: Kcal/kg Weight Used for Energy Requirements: [place] Weight for Energy Calculation (kg): 45 kg Total Energy Requirements (kcals/day): 1350 Weight Used for Protein Requirements: [place] Weight in Kg Used for Protein Requirements: [...] Current Body Weight: 59.4 kg (131 lb) [place] Body Weight (lbs) (Calculated): 100 lbs [place] Body Weight (Kg) (Calculated): 45 kg % [place] Body Weight (Calculated): 131 % BMI (kg/m2) [...] Jacqueline Lion MS, RD, LD Contact: or HITbills Chat Images from the original note were [...] Raji Ontiveros M.D. Department of Surgery Pager: [phone] PAGING / HITbills Secure Chat: From 6a-6p (-s): HITbills Secure Chat (FIRST) or Pager above (EMERGENT/Second) From 6p-6a (-): Find resident provider under [facility] Surgery - General - Surgical ICU Patients: [...] This note may have been dictated using Actifio Practice Edition and/or SyndicatePlus Voice Recognition Feature. The document was proofread; however, unrecognized voice recognition geothermal electrical engineer errors may be present. Images from the [...] Raji Ontiveros M.D. Department of Surgery Pager: [phone] PAGING / HITbills Secure Chat: From 6a-p (-s): HITbills Secure Chat (FIRST) or Pager above (EMERGENT/Second) From 6p-6a (-): Find resident provider under [facility] Surgery - General - Surgical ICU Patients: [...] This note may have been dictated using Actifio Practice Edition and/or SyndicatePlus Voice Recognition Feature. The document was proofread; however, unrecognized voice recognition geothermal electrical engineer errors may be present. Associated attestation - [...] PT/OT. documented in this encounter [facility] 07-09-2022 Note Care Management Prog ress Note Patient remains on 1C s/p EVAR POD # 4. Weaned to RA, patient re-eval by vascular from this am-now alert/oriented, ambulatory and tolerating diet. PT recommending home with assist.-patient stated to TCC mom and sister [place] staying[place]. Patient from home with grandson, anticipate discharge [...] Length of Stay (Days): 4 GMLOS: 1.5 [facility] 07-09-2022 Nurse Note Patient states she takes lorazepam every night before bed and asking if she can get it here. I called and clarified with her pharmacy active medication. Dr Ontiveros aware. [facility] 07-09-2022 Nurse Note Per patient request Dr Ontiveros messaged because she states she takes lorazepam at hs. T [facility] 07-09-2022 Note Formatting of this n [...] Stay (Days): 4 GMLOS: 1.5 [facility] 07-09-2022 Note Formatting of this n [...] and sister planning on staying/[place] Patient from home with grandson, anticipate discharge [...] (Days): 4 GMLOS: 1.5 T [facility] 07-09-2022 Miscellaneous Notes Images from the [...] Limits Permission given to speak with patient junior sales representative/caregiver as indicated: Confirmation of Payer with patient/family: Yes Payer Name: [facility] Dual [place]: No Confirmation of Primary Care Physician: Confirmed [...] Living Prescription Coverage: Yes Pharmacy Used[facility] Medication Management: (picks up rx, student fills [...] in recovery and will be admitted to [address] [place] [address] [facility]. Sistermaia updated via phone call on pt status. OPERATIVE REPORT DATE OF SERVICE: 07/05/2022 PRE-PROCEDURE DIAGNOSIS: Infrarenal Abdominal aortic aneurysm POST-PROCEDURE DIAGNOSIS: As above PROCEDURE PERFORMED: 1) Bilateral open femoral artery exposure for delivery of endoprosthesis 2) Endovascular infrarenal abdominal aortic aneurysm repair with 29 mm Endologix Allenton endograft 3) Placement of 10 mm x 37 mm Balloon expandable stent placement to the right common iliac limb 4) Palmaz stent placement to the infrarenal aortic neck SURGEON: Lana Parker MD ASSISTANTS: Jolynn Meza APRN-ORACLE SECURITY CONSULTANT, Raji Ontiveros MD (PGY-1), Brian Nuñez MD [...] SPECIMENS: None IMPLANTS: 1) 29 mm Endologix Allenton Main body 2) 14 x 120 mm Ovation iX left iliac limb 3) 16 x 120 mm Ovation iX right iliac limb 4) Palmaz XL stent to Aortic neck 5) 10 x 39 mm [employer] express balloon expandable stent placement to [...] technique was used to place a 6 Palestinian sheath. This was again performed in a similar fashion on the left with placement of an 8 Palestinian sheath. The patient was then given 6000 [...] abdominal aorta. On the right, a 14 Palestinian sheath was placed once the graft was [...] delivery system was removed and a 16 Palestinian sheath was placed on the left. As [...] with passing anything larger than a 12 Palestinian catheter from the right, the decision was [...] Parker MD Vascular Surgery Date: 07/05/2022 Location: [facility] OR Name: Kathy Puri, : 1950, Diagnosis Pre-op Diagnosis * Infrarenal abdominal aortic aneurysm, without rupture (HCC) [I71.43] Post-op Diagnosis * Infrarenal abdominal aortic aneurysm, without rupture (HCC) [I71.43] Procedures ENDOVASCULAR REPAIR OF ABDOMINAL AORTIC ANEURYSM 34506 - IA EVASC RPR DPLMNT [id number] NDGFT OPEN FEMORAL ARTERY EXPOSURE FOR DELIVERY OF ENDOVASCULAR PROSTHESIS 69172 - IA OPN FEM ART EXPOS DLVR EVASC PROSTH [...] STENT CARLOS 10MM 7FR 25MM 135CM - [id number] Implanted Staff: Extension Edger: Georgina Daley RN Nurse Practitioner: Jolynn Meza, NEUROLOGY TECHNICIAN - ORACLE SECURITY CONSULTANT Relief Scrub: Fercho Crystal Scrub Person: [...] flouroquinolone) documented in this encounter [facility] 07-09-2022 Hospital Discharge instructions [facility] Ontiveros MD - 07/09/2022 2:55 PM EDT Discharge Instructions for Endovascular Repair of Abdominal Aortic Aneurysm Call Dr. Parker's office [phone] for follow-up appointment. During endovascular repair, the [...] regular diet. You may work with a dishwasher preparer who will help you follow a heart-healthy [...] do so. Medications Your doctor may recommend: Uomd-ywd-qbwtaxk or prescription pain medicine Aspirin or a [...] taking more than one drug. This includes eexx-wol-qdurihx medicines and herb or dietary supplements. Plan [...] 911. documented in this encounter [facility] 07-09-2022 Nurse Note In chair, encouraged incentive spirometer. [facility] 07-09-2022 Nurse Note Patient awakens for assessment. She is sleepy but follows all commands. She answers all questions appropriately. Neuro checks are within normal limits. She is oriented x4. Able to demonstrate use of call light. Bed alarm on for safety. Dr Ontiveros updated. [facility] 07-08-2022 Note Problem: Pain - Adul t Goal: Verbalizes/displays adequate comfort level or baseline comfort level Outcome: Progressing Problem: Safety - Adult Goal: Free from fall injury Outcome: Progressing [facility] 07-08-2022 Plan of care note Problem: Pain - Adult Goal: Verbalizes/displays adequate comfort level or baseline comfort level Outcome: Progressing Problem: Safety - Adult Goal: Free from fall injury Outcome: Progressing [facility] 07-08-2022 Note Sister Maia update d on plan of care. [facility] 07-08-2022 Note Formatting of this n ote might be different from the original. Care Managment Initial Assessment Date: 07/08/2022 Patient Name: Kathy Puri : 1950 Patient Information Source of Information: Patient Cognition/Language: WFL - Within Functional Limits Permission given to speak with patient junior sales representative/caregiver as indicated: Confirmation of Payer with patient/family: Yes Payer Name: [facility] Dual [place]: No Confirmation of Primary Care Physician: Confirmed [...] Living Prescription Coverage: Yes Pharmacy Used[facility] Medication Management: (picks up rx, student fills [...] needs. TCC to follow. Jackie Kelly RN [facility] 07-08-2022 Note Formatting of this n ote might be different from the original. Care Managment Initial Assessment Date: 07/08/2022 Patient Name: Kathy Puri : 1950 Patient Information Source of Information: Patient Cognition/Language: WFL - Within Functional Limits Permission given to speak with patient junior sales representative/caregiver as indicated: Confirmation of Payer with patient/family: Yes Payer Name: [facility] Dual : No Confirmation of [...] Living Prescription Coverage: Yes Pharmacy Used[facility] Medication Management: (picks up rx, student fills [...] needs. TCC to follow. 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 She will have assistance from her mother [...] Anxiety, Arrhythmia, Arthritis, Cancer (CMS/HCC) ([facility]), CHF (congestive heart failure) (CMS/HCC) ([facility]), CKD (chronic kidney disease), COPD (chronic obstructive pulmonary disease) ([facility]), Depression, GERD (gastroesophageal reflux disease), Heart valve disease, Hyperlipidemia, Hypertension, Irritable bowel syndrome, Joint pain, Myocardial infarction (CMS/HCC) ([facility]), Pacemaker, PAD (peripheral artery disease) ([facility]), and Sleep apnea. has a past [...] With device?: No Transfer Assistance: Independent Active Steel Rigger: Yes Mode of Transportation: Car Additional Comments: [...] Other exercises 1: IS x 10 to 8929-0926 ml Plan Times per Week: 5 Times per Day: Daily Plan Weeks: 2 Current Treatment Recommendations: Strengthening, Func (more content not included)... [facility] 07-08-2022 Nurse Note Sister Maia updated on plan of care. [facility] 07-08-2022 Plan of care note Problem: Pain - Adult Goal: Verbalizes/displays adequate comfort level or baseline comfort level Outcome: Progressing Problem: Safety - Adult Goal: Free from fall injury Outcome: Progressing Problem: Discharge Planning Goal: Discharge to home or other facility with appropriate resources Outcome: Progressing [facility] 07-07-2022 Note Problem: Pain - Adul t Goal: Verbalizes/displays adequate comfort level or baseline comfort level Outcome: Progressing Problem: Safety - Adult Goal: Free from fall injury Outcome: Progressing [facility] 07-07-2022 Plan of care note Problem: Pain - Adult Goal: Verbalizes/displays adequate comfort level or baseline comfort level Outcome: Progressing Problem: Safety - Adult Goal: Free from fall injury Outcome: Progressing [facility] 07-07-2022 Note Department of Surger y [...] HYDROmorphone OR HYDROmo (more content not included)... [facility] 07-06-2022 Plan of care note Problem: Pain - Adult Goal: Verbalizes/displays adequate comfort level or baseline comfort level Outcome: Progressing Problem: Safety - Adult Goal: Free from fall injury Outcome: Progressing Problem: Discharge Planning Goal: Discharge to home or other facility with appropriate resources Outcome: Progressing T [facility] 07-05-2022 Nurse Note paged in regards to patient elevated BP. T [facility] 07-05-2022 Note Formatting of this n ote might be different from the original. Updated pt's sister over phone that pt is doing well in recovery and will be admitted to 1 C[address] shortly. T [facility] 07-05-2022 Note Formatting of this n ote might be different from the original. Updated pt's sister over phone that pt is doing well in recovery and will be admitted to 1 [facility] A shortly. [facility] 07-05-2022 Note Patient: Kathy tierney Procedure Summary Date: 07/05/22 Room / Location: [facility] Operating Room Anesthesia Start: 730 Anesthesia Stop: [...] once all PACU criteria has been met. [facility] 07-05-2022 Note Patient: Kathy tierney Procedure Summary Date: 07/05/22 Room / Location: [facility] Operating Room Anesthesia Start: 730 Anesthesia Stop: [...] opportunity for questions and acknowledgement of understanding. [facility] 07-05-2022 Note Formatting of this n ote might be different from the original. maia Marcum updated via phone call on pt status. [facility] 07-05-2022 Note Formatting of this n ote might be different from the original. maia Marcum updated via phone call on pt status. [facility] 07-05-2022 Note Airway Date/Time: 07/05/2022 7:49 AM Urgency: scheduled Airway not difficult General Information and Staff Patient location during procedure: Procedural Anesthesiologist: Elgin Castro MD Resident/SOCIETY EDITOR: Antonio Mast APRN - SOCIETY EDITOR Performed: SRNA Indications and Patient Condition Indications [...] at approach: 1 Ventilation between attempts: none [facility] 07-05-2022 Note OPERATIVE REPORT DATE OF SERVICE: 07/05/2022 PRE-PROCEDURE DIAGNOSIS: Infrarenal Abdominal aortic aneurysm POST-PROCEDURE DIAGNOSIS: As above PROCEDURE PERFORMED: 1) Bilateral open femoral artery exposure for delivery of endoprosthesis 2) Endovascular infrarenal abdominal aortic aneurysm repair with 29 mm Endologix Allenton endograft 3) Placement of 10 mm x [...] SPECIMENS: None IMPLANTS: 1) 29 mm Endologix Allenton Main body 2) 14 x 120 mm Ovation iX left iliac limb 3) 16 x 120 mm Ovation iX right iliac limb 4) Palmaz XL stent to Aortic neck 5) 10 x 39 mm [employer] express balloon expandable stent placement to [...] technique was used to place a 6 Palestinian sheath. This was again performed in a similar fashion on the left with placement of an 8 Palestinian sheath. The patient was then given 6000 [...] abdominal aorta. On the right, a 14 Palestinian sheath was placed once the graft was [...] final proximal l (more content not included)... [facility] 07-05-2022 Note H&P reviewed. The pa [...] were answered. She has elected to proceed. [facility] 07-05-2022 Attending History and physical note [...] seen/examined on 06/26/2022 Procedure Information Date/Time: 07/05/22 8624 Procedures: ENDOVASCULAR REPAIR OF ABDOMINAL AORTIC ANEURYSM OPEN FEMORAL ARTERY EXPOSURE FOR DELIVERY OF ENDOVASCULAR PROSTHESIS (Bilateral) Location: [facility] Operating Room Surgeons: Lana Parker MD Chief [...] ovarian No date: CHF (congestive heart failure) ([facility]) ([facility]) No date: CKD (chronic kidney disease) No date: COPD (chronic obstructive pulmonary disease) ([facility]) No date: Depression No date: GERD (gastroesophageal reflux disease) No date: Heart valve disease No date: Hyperlipidemia No date: Hypertension No date: Irritable bowel syndrome No date: Joint pain No date: Myocardial infarction ([facility]) ([facility]) No date: Pacemaker No date: PAD (peripheral artery disease) ([facility]) No date: Sleep apnea Comment: uses [...] OP cardiology 3) CAD - Hx of [place] and stent insertion 1998, 2002 - Managed [...] Screen and Sleep Clinic Referral (if appropriate) [employer] Work Phone: 07-05-2022 Note Formatting of this n ote might be different from the original. OPERATIVE REPORT DATE OF SERVICE: 07/05/2022 PRE-PROCEDURE DIAGNOSIS: Infrarenal Abdominal aortic aneurysm POST-PROCEDURE DIAGNOSIS: As above PROCEDURE PERFORMED: 1) Bilateral open femoral artery exposure for delivery of endoprosthesis 2) Endovascular infrarenal abdominal aortic aneurysm repair with 29 mm Endologix Allenton endograft 3) Placement of 10 mm x 37 mm Balloon expandable stent placement to the right common iliac limb 4) Palmaz stent placement to the infrarenal aortic neck SURGEON: Lana Parker MD ASSISTANTS: Jolynn Meza APRN-ORACLE SECURITY CONSULTANT, Raji Ontiveros MD (PGY-1), Brian Nuñez MD [...] SPECIMENS: None IMPLANTS: 1) 29 mm Endologix Allenton Main body 2) 14 x 120 mm Ovation iX left iliac limb 3) 16 x 120 mm Ovation iX right iliac limb 4) Palmaz XL stent to Aortic neck 5) 10 x 39 mm [employer] express balloon expandable stent placement to [...] technique was used to place a 6 Palestinian sheath. This was again performed in a similar fashion on the left with placement of an 8 Palestinian sheath. The patient was then given 6000 [...] abdominal aorta. On the right, a 14 Palestinian sheath was placed once the graft was [...] delivery system was removed and a 16 Palestinian sheath was placed on the left. As [...] with passing anything larger than a 12 Palestinian catheter from the right, the decision was [...] placed and deployed to graft apposition. A Reading catheter was then positioned in the abdominal [...] the case. Lana Parker MD Vascular Surgery [facility] 07-05-2022 Note Formatting of this n ote is different from the original. Date: 07/05/2022 Location: [facility] OR Name: Kathy Puri, : 1950, Diagnosis Pre-op Diagnosis * Infrarenal abdominal aortic aneurysm, without rupture (HCC) [I71.43] Post-op Diagnosis * Infrarenal abdominal aortic aneurysm, without rupture (HCC) [I71.43] Procedures ENDOVASCULAR REPAIR OF ABDOMINAL AORTIC ANEURYSM 89098 - IA EVASC RPR DPLMNT [id number] NDGFT OPEN FEMORAL ARTERY EXPOSURE FOR DELIVERY OF ENDOVASCULAR PROSTHESIS 22540 - IA OPN FEM ART EXPOS DLVR EVASC PROSTH [...] STENT CARLOS 10MM 7FR 25MM 135CM - [id number] Implanted Staff: Extension Edger: Georgina Daley RN Nurse Practitioner: MAY Chiu [...] (two hours if receiving Vancomycin or flouroquinolone) [facility] 07-05-2022 Note Formatting of this n ote might be different from the original. OPERATIVE REPORT DATE OF SERVICE: 07/05/2022 PRE-PROCEDURE DIAGNOSIS: Infrarenal Abdominal aortic aneurysm POST-PROCEDURE DIAGNOSIS: As above PROCEDURE PERFORMED: 1) Bilateral open femoral artery exposure for delivery of endoprosthesis 2) Endovascular infrarenal abdominal aortic aneurysm repair with 29 mm Endologix Allenton endograft 3) Placement of 10 mm x [...] SPECIMENS: None IMPLANTS: 1) 29 mm Endologix Allenton Main body 2) 14 x 120 mm Ovation iX left iliac limb 3) 16 x 120 mm Ovation iX right iliac limb 4) Palmaz XL stent to Aortic neck 5) 10 x 39 mm [employer] express balloon expandable stent placement to [...] technique was used to place a 6 Palestinian sheath. This was again performed in a similar fashion on the left with placement of an 8 Palestinian sheath. The patient was then given 6000 units of heparin for systemic anticoagulation. This was redosed throughout the case as needed. On the right, a Reading catheter was used to obtain access to [...] abdominal aorta. On the right, a 14 Palestinian sheath was placed once the graft was [...] delivery system was removed and a 16 Palestinian sheath was placed on the left. As [...] with passing anything larger than a 12 Palestinian catheter from the right, the decision was [...] placed and deployed to graft apposition. A Reading catheter was then positioned in the abdominal [...] the case. Lana Parker MD Vascular Surgery [facility] 07-05-2022 Note Formatting of this n ote is different from the original. Date: 07/05/2022 Location: [facility] OR Name: Kathy Puri, : 1950, Diagnosis Pre-op Diagnosis * Infrarenal abdominal aortic aneurysm, without rupture (HCC) [I71.43] Post-op Diagnosis * Infrarenal abdominal aortic aneurysm, without rupture (HCC) [I71.43] Procedures ENDOVASCULAR REPAIR OF ABDOMINAL AORTIC ANEURYSM 55223 - IA EVASC RPR DPLMNT [id number] NDGFT OPEN FEMORAL ARTERY EXPOSURE FOR DELIVERY OF ENDOVASCULAR PROSTHESIS 47791 - IA OPN FEM ART EXPOS DLVR EVASC PROSTH [...] STENT CARLOS 10MM 7FR 25MM 135CM - [id number] Implanted Staff: Extension Edger: Georgina Daley RN Nurse Practitioner: Jolynn Meza APRN - ORACLE SECURITY CONSULTANT Relief Scrub: Fercho Crystal Scrub Person: [...] (two hours if receiving Vancomycin or flouroquinolone) [facility] 07-05-2022 History and physical note H&P reviewed. [...] (Bilateral) Location: [facility] Operating Room Surgeons: Lana Parker MD Chief [...] afib No date: Arthritis No date: Cancer ([facility]) ([facility]) Comment: ovarian No date: CHF (congestive heart failure) ([facility]) ([facility]) No date: CKD (chronic kidney disease) No date: COPD (chronic obstructive pulmonary disease) ([facility]) No date: Depression No date: GERD (gastroesophageal reflux disease) No date: Heart valve disease No date: Hyperlipidemia No date: Hypertension No date: Irritable bowel syndrome No date: Joint pain No date: Myocardial infarction ([facility]) ([facility]) No date: Pacemaker No date: PAD (peripheral artery disease) ([facility]) No date: Sleep apnea Comment: uses [...] OP cardiology 3) CAD - Hx of [place] and stent insertion 1998, 2002 - Managed [...] appropriate) documented in this encounter [facility] [employer] 06-28-2022 Telephone encounter Note I have tried to call patient back for 2 days her voice mail box is full. At no point in her OV or in surgical scheduling did she mention a halfway. I find nothing in her chart. Trying to find out what facility called. [facility] [employer] 06-28-2022 Miscellaneous Notes I have tried to call patient back for 2 days her voice mail box is full. At no point in her OV or in surgical scheduling did she mention a halfway. I find nothing in her chart. Trying to find out what facility called. ALYSSIA Spoke with Matt at nursing facility that patient resides in, nurse asking what medications are to be held/continued. Below information given SURGERY: ENDOVASCULAR REPAIR OF AAA DATE OF SURGERY: 07/05/2022 7:30 AM PRE TESTIN06/26/2022 12:00 AUTH #: [id number] CARDIAC CLEARANCE YES CARDIAC DR TREVIÑO , PULMONARY DR TOBAR 05/28/2022 POST OP OR OV: 07/17/2022 10:15 MEDS TO HOLD: ELIQUIS HOLD 48 HOURS PRIOR, THE MORNING OF SURGERY HOLD FUROSEMIDE MEDS TO CONTINUE: PLAVIX, OTHERS documented in this encounter [facility] 06-27-2022 Telephone encounter Note ALYSSIA Spoke with Matt at nursing facility that patient resides in, nurse asking what medications are to be held/continued. Below information given [facility] 06-27-2022 Miscellaneous Notes ALYSSIA Spoke with Matt at nursing facility that patient resides in, nurse asking what medications are to be held/continued. Below information given SURGERY: ENDOVASCULAR REPAIR OF AAA DATE OF SURGERY: 07/05/2022 7:30 AM PRE TESTIN06/26/2022 12:00 AUTH #: [id number] CARDIAC CLEARANCE YES CARDIAC DR TREVIÑO , PULMONARY DR TOBAR 05/28/2022 POST OP OR OV: 07/17/2022 10:15 MEDS TO HOLD: ELIQUIS HOLD 48 HOURS PRIOR, THE MORNING OF SURGERY HOLD FUROSEMIDE MEDS TO CONTINUE: PLAVIX, OTHERS documented in this encounter [facility] [employer] 06-26-2022 Note Patient: Kathy tierney Procedure Information Date/Time: 07/05/22729 Procedures: ENDOVASCULAR REPAIR OF ABDOMINAL AORTIC ANEURYSM OPEN FEMORAL ARTERY EXPOSURE FOR DELIVERY OF ENDOVASCULAR PROSTHESIS (Bilateral) Location: [facility] Operating Room Surgeons: Lana Parker MD Past Medical History: Past Medical History: No date: Anemia No date: Anxiety No date: Arrhythmia Comment: afib No date: Arthritis No date: Cancer ([facility]) ([facility]) Comment: ovarian No date: CHF (congestive heart failure) ([facility]) ([facility]) No date: CKD (chronic kidney disease) No date: COPD (chronic obstructive pulmonary disease) ([facility]) No date: Depression No date: GERD (gastroesophageal reflux disease) No date: Heart valve disease No date: Hyperlipidemia No date: Hypertension No date: Irritable bowel syndrome No date: Joint pain No date: Myocardial infarction ([facility]) ([facility]) No date: Pacemaker No date: PAD (peripheral artery disease) ([facility]) No date: Sleep apnea Comment: uses [...] work up ECHO and EF:Echo 06/11/22 ?Pacemaker [employer] scanned into media last check 02/2022 No echocardiogram results found for the past 14 days No results found for this or any previous visit. [facility] 06-26-2022 Note Comprehensive PreSur gical History and Physical Name: Kathy Puri : 1950 (Age-72 y.o.) Date of Service: Pt seen/examined on 06/26/2022 Procedure Information Date/Time: 07/05/22 0730 Procedures: ENDOVASCULAR REPAIR OF ABDOMINAL AORTIC ANEURYSM OPEN FEMORAL ARTERY EXPOSURE FOR DELIVERY OF ENDOVASCULAR PROSTHESIS (Bilateral) Location: [facility] Operating Room Surgeons: Lana Parker MD Chief [...] afib No date: Arthritis No date: Cancer ([facility]) ([facility]) Comment: ovarian No date: CHF (congestive heart failure) ([facility]) ([facility]) No date: CKD (chronic kidney disease) No date: COPD (chronic obstructive pulmonary disease) ([facility]) No date: Depression No date: GERD (gastroesophageal reflux disease) No date: Heart valve disease No date: Hyperlipidemia No date: Hypertension No date: Irritable bowel syndrome No date: Joint pain No date: Myocardial infarction ([facility]) ([facility]) No date: Pacemaker No date: PAD (peripheral artery disease) ([facility]) No date: Sleep apnea Comment: uses [...] PO) Take 1 (more content not included)... [facility] 06-26-2022 Note Comprehensive PreSur gical History and Physical Name: Kathy Puri : 1950 (Age-72 y.o.) Date of Service: Pt seen/examined on 06/26/2022 Procedure Information Date/Time: 07/05/22 9530 Procedures: ENDOVASCULAR REPAIR OF ABDOMINAL AORTIC ANEURYSM OPEN FEMORAL ARTERY EXPOSURE FOR DELIVERY OF ENDOVASCULAR PROSTHESIS (Bilateral) Location: [facility] Operating Room Surgeons: Lana Parker MD Chief [...] afib No date: Arthritis No date: Cancer ([facility]) ([facility]) Comment: ovarian No date: CHF (congestive heart failure) ([facility]) ([facility]) No date: CKD (chronic kidney disease) No date: COPD (chronic obstructive pulmonary disease) ([facility]) No date: Depression No date: GERD [...] PO) Take 1 (more content not included)... [facility] 06-14-2022 Telephone encounter Note SURGERY: ENDOVASCULAR REPAIR OF AAA DATE OF SURGERY: 07/05/2022 7:30 AM PRE TESTIN06/26/2022 12:00 AUTH #: [id number] CARDIAC CLEARANCE YES CARDIAC DR TREVIÑO , PULMONARY DR TOBAR 05/28/2022 POST OP OR OV: 07/17/2022 10:15 MEDS TO HOLD: ELIQUIS HOLD 48 HOURS PRIOR, THE MORNING OF SURGERY HOLD FUROSEMIDE MEDS TO CONTINUE: PLAVIX, OTHERS [facility] 06-13-2022 Telephone encounter Note Received final cardiac clearance and copy of Echo done 06/11/22. Dr. TreviñoQaqjv-Kmmmklkqeajy-kzyseyy patient on 06/12/22 Dr. Zack TobarDxvixg-Ixmrwykej-Zducqfi patient on 05/28/22. Dr. Parker reviewed the clearances and signed off on them. I will reach out to patient to schedule the surgery. [facility] 06-13-2022 Miscellaneous Notes Received final cardiac clearance and copy of Echo done 06/11/22. Dr. TreviñoCqlrf-Unebldrvktdd-fndsnuo patient on 06/12/22 Dr. Zack TobarIqelkb-Subngytyv-Bentypv patient on 05/28/22. Dr. Parker reviewed the [...] to speak with Dr. Parker again. Patient# [phone] Clearance has been received from Dr. Treviño's [...] now on 06/11/22 at 2:00 pm at [facility]. documented in this encounter [facility] 06-12-2022 Telephone encounter Note Call placed to Dr. Treviño's office and spoke with Adeline to make sure patient had the Echo done on 06/11/22. Patient did complete the Echo per Adeline and our form for Cardiac Clearance/Optimization was re-faxed for confirmation after new Echo complete. Pending final outcome. [facility] 05-31-2022 Telephone encounter Note Noted will await Echocardiogram results. [facility] 05-30-2022 Telephone encounter Note I called [...] questions were answered to the patient's satisfaction. [employer] Work Phone: 05-30-2022 Telephone encounter Note Patient is going to be scheduled for: Endovascular Repair Of Abdominal Aortic Aneurysm, pending out come of Echocardiogram on 06/11/[address] Treviño. Patient is asking if she really has to have this surgery? She would like to speak with Dr. Parker again. Patient# [phone] [employer] 05-30-2022 Telephone encounter Note Clearance has been [...] now on 06/11/22 at 2:00 pm at [facility]. [facility] 05-27-2022 Note Vascular Surgery Out patient Consultation Chief Complaint Patient presents with New Patient (Dr Marroquin) Eval AAA; CTA 02/26/22 (in Pacs-measured by [employer] rep) Reason for Consult: Abdominal aortic aneurysm [...] Hypertension PAD (peripheral artery disease) ([facility]) Past SurgicalHistory: Past Surgical History: Procedure [...] file Food Insecurity: (more content not included)... [facility] 05-27-2022 History of Present illness Narrative [...] Hypertension PAD (peripheral artery disease) ([facility]) Past SurgicalHistory: Past Surgical History: Procedure [...] new ECHO had been ordered by her boilermaker apprentice in [place] however she did not show for the appointment. This will need to be completed prior to consideration of intervention. We will also reach out to her electronic heat seal operator in [place] as she has had a recent evaluation however these records are unavailable. Should she be a suitable candidate from a cardiac and pulmonary standpoint, we will plan to proceed with EVAR. All questions were answered. Lana Parker MD Vascular Surgery documented in this encounter [facility] 05-16-2022 Note Received referral fr om Dr Marroquin for Eval AAA. CTA 02/26/22 images in Pacs Measured by [employer]. Have tried to reach patient several times: 05/07/22; 05/10/22; 05/16/22 Voice Mailbox is full. To be scheduled with Dr Parker or Dr Whiting. Scanned into [facility] 10-10-2021 Note Patient Outreach (IN TMMN) KATHY PURI ([id number]) 1950 F Date Time Provider Department 10/10/21 CATHI HAYES During your visit today, we recorded the following information about you: Allergies As of Date: 10/10/2021 Noted Allergy Reaction LISINOPRIL 05/31/2019 14 - Other: See Comments Comments: Numbness to tongue Date Reviewed: 12/27/2020 Reviewed by: Yuly Galloway, CT - Fully Assessed Visit Diagnosis:Encounter for screening mammogram for breast cancer [Z12.31] Order(s):[facility] SCREENING [[id number]] Order #: [id number] FUTURE Prescriptions as of 10/15/2021 - clopidogrel [...] twice daily. Added at recent hospital stay [facility]. - BIPAP Initiate BiPAP @ 9/5 [...] Encounter Status:Closed by SURY RANDHAWA on 10/15/21 [facility] 06-23-2021 Miscellaneous Notes All scheduled in June Please call patient to schedule US ABB prior to appt 06/26/21 Please change her to an established patient she has seen a previous vascular provider in our office Thank you documented in this encounter [facility] 05-16-2021 Miscellaneous Notes Left message to call [...] Yoanna Morris Pss documented in this encounter [facility] 11-22-2020 Misc[address] Notes On the way. Dianne Mccullough LPN Please pull ER visit from yesterday. Thanks, Aminata Barrera APRN.KARLA documented in this encounter [facility] 09-19-2020 Miscellaneous Notes Second call placed to [...] Florencia Hwang LPN documented in this encounter [facility] 08-22-2020 Miscellaneous Notes Thanks. Hospital notes collected and placed in you inbox on desk. Will see when gets released and schedule office visit. Reviewed. Please pull ER report tomorrow and will schedule OV once released from hospital. Daughter and Argelia FR[place], want's pcp to know, first of all, patient just left via squad to [facility] ER, for c/o CP. Depending on how that goes, Argelia anticipates patient will f/u with pcp. Wanted pcp to know, patient is having terrible anxiety: unable to sleep, and it is getting the best of her. States something needs to be done. Patient saw education program associate yesterday, who advised daughter, patient needs to contact pcp to treat her anxiety. Daughter states she does not want the treatment to be ativan or xanax. Wanted to give pcp a heads up that this is something that needs to be addressed in the near future. documented in this encounter [facility] documented as of this encounter (statuses as of 05/16/2021) [facility] History of Past illness Narrative* Problem Noted [...] of this encounter (statuses as of 06/26/2021) [facility] History of Past illness Narrative* Problem Noted [...] of this encounter (statuses as of 08/15/2021) [facility] History of Past illness Narrative* Problem Noted [...] of this encounter (statuses as of 08/23/2021) [facility] History of Past illness Narrative* Problem Noted [...] of this encounter (statuses as of 10/05/2021) [facility] History of Past illness Narrative* Problem Noted [...] of this encounter (statuses as of 10/15/2021) [facility] note* Diagnosis Encounter for screening mammogram for breast cancer documented in this encounter [facility] note* Diagnosis Infrarenal abdominal aortic aneurysm (AAA) without rupture- Primary [facility] Infrarenal abdominal aortic aneurysm (AAA) without rupture (HCC)- Primary Infrarenal abdominal aortic aneurysm, without rupture (HCC) [facility]* Diagnosis Preop testing Unspecified pre-operative examination Infrarenal abdominal aortic aneurysm, without rupture (HCC) [facility] Infrarenal abdominal aortic aneurysm (AAA) without rupture (HCC)- Primary Infrarenal abdominal aortic aneurysm (AAA) without rupture (HCC) documented [facility]* Diagnosis Infrarenal abdominal aortic aneurysm (AAA) without rupture (HCC)- Primary Status post endovascular aneurysm repair (EVAR) documented in [facility]* Diagnosis Status post endovascular aneurysm repair (EVAR)- Primary Pre-procedure lab exam Pre-procedural laboratory examination documented in this [facility]* Diagnosis 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) documented [facility] GearReason for referral (narrative)* Diagnostic Procedure Only (Routine) - Pending Review Specialty Diagnoses / Procedures Referred By Contac t Referred To Contact [facility] Diagnoses Encounter for screening mammogram for breast cancer Procedures DENTON SCREENING SCREENING MAMMOGRAPHY BI 2-VIEW BREAST INC CAD Cathi Hayes MD [address] [place] [address] [facility] [address] [place] [address] Referral ID Status Reason Start Date Expiration Date Visits Requested Visits Authorized [id number] Pending Review Auto-Generat ed Referral 10/10/2021 11/09/2022 1 1 [facility] Advance Directives Documents on File Type Date Recorded 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 Advance Directive(s) 09/08/2012 10:30 AM Documents on File Type Date Recorded 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 Advance Directive(s) 09/08/2012 10:30 AM [...] Lana Parker MD [address] [place] [id number] Referral ID Status Reason Start Date Expiration Date V isits Requested Visits Authorized [id number] Pending Review 07/24/2022 01/20/2023 1 1 Specialty Diagnoses / Procedures Referred By Contac t Referred To Contact Radiology Diagnoses Status post endovascular aneurysm repair (EVAR) Procedures CTA abdomen pelvis angiogram w and/or wo IV contrast Lana Parker MD [address] [place] [address] Referral ID Status Reason Start Date Expiration Date V isits Requested Visits Authorized [id number] Pending Review 08/19/2022 02/15/2023 1 1 Summary [...] or prosecute any alcohol or drug abuse patient.[facility] the event this information is protected by the Federal Confidentiality of Alcohol and Drug Abuse Patient Records regulations: The Federal rules restrict any use of the information to criminally investigate or prosecute any alcohol or drug abuse patient.[facility] the event this information is protected by the Federal Confidentiality of Alcohol and Drug Abuse Patient Records regulations: The Federal rules restrict any use of the information to criminally investigate or prosecute any alcohol or drug abuse patient.[facility] the event this information is protected by the Federal Confidentiality of Alcohol and Drug Abuse Patient Records regulations: The Federal rules restrict any use of the information to criminally investigate or prosecute any alcohol or drug abuse patient.[facility] the event this information is protected by the Federal Confidentiality of Alcohol and Drug Abuse Patient Records regulations: The Federal rules restrict any use of the information to criminally investigate or prosecute any alcohol or drug abuse patient.[facility] the event this information is protected by the Federal Confidentiality of Alcohol and Drug Abuse Patient Records regulations: The Federal rules restrict any use of the information to criminally investigate or prosecute any alcohol or drug abuse patient.[facility] Reason for Visit (unrecogniz ed section and [...] aortic aneurysm, without rupture (HCC) [I71.43] Procedures IA EVASC RPR DPLMNT [id number] NDGFT IA OPN FEM ART EXPOS DLVR EVASC PROSTH UNI ENDOVASCULAR REPAIR OF ABDOMINAL AORTIC ANEURYSM OPEN FEMORAL ARTERY EXPOSURE FOR DELIVERY OF ENDOVASCULAR PROSTHESIS Lana Parker MD [address] [facility] [address] [place] [address] [address] [place] [address] Referral ID Status Reason Start Date Expiration Date Visits Re quested Visits Authorized [id number] 1 1 Reason Comments Post-op 1st PO EVAR of AAA 0 07/05/2022 Reason Comments Post-op EVAR 07/05/2022 / Dis cuss CTA 08/08/2024 Reason Comments Heart Problem Pt arrived by EMS fr [facility] (blue sheet) due cardiac issues( AAA leaking) . Upon assessment pt is a&ox3 msps intact - cp - sob - dizziness - n/v - pain. 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 Ector Whiting MD [address] [place] [address] [address] [place] [address] Referral ID Status Reason Start Date Expiration Date Visits Re quested Visits Authorized [id number] 1 1 Care Teams (unrecognized sec tion and content) Frameman Relationship Specialty Start Date End Date Cathi Hayes MD [address] [place], [place] [id number] PCP - General Family Practice 05/16/21 Frameman Relationship Specialty Start Date End Date Cathi Hayes MD [address], [place] [id number] PCP - General Family Practice 01/29/17 12/24/20 Ector Jewell(Historical), PCP - General Family Practice 12/25/20 Cathi Hayes MD [address] [facility] [address] PCP - General Family Practice 05/16/21 Frameman Relationship Specialty Start Date End Date Cathi Hayes MD [address] [facility] [address] PCP - General Family Practice 01/29/17 12/24/20 Ector Jewell(Historical)MD PCP - General Family Practice 12/25/20 Cathi Hayes MD [address] [facility] [place] [address] PCP - General Family Practice 05/16/21 Frameman Relationship Specialty Start Date End Date Cathi Hayes MD [address] [place] [address] PCP - General Family Practice 05/16/21 Frameman Relationship Specialty Start Date End Date Alexandre Ayoub MD [address] [place] [address] PCP - General 05/27/22 Lana Parker MD [address] [place] [address] Consulting Physician Vascular Surgery 05/27/22 Frameman Relationship Specialty Start Date End Date Alexandre Ayoub MD [address] [place] [address] PCP - General Claims Auditor 05/27/22 Lana Parker MD [address] [place] [address] Surgeon Vascular Surgery 05/27/22 [place] [address] Work Order Clerk Internal Medicine Cardiovascular Disease 05/28/22 Zack Tobar [address] [place] [address] Dowel Pin Worker Pulmonology 05/28/22 Sharlene Moffett -Device nurse at Dr Treviño's Office 05/29/22 Frameman Relationship Specialty Start Date End Date Alexandre Ayoub MD [address] [place] [address] PCP - General Claims Auditor 05/27/22 Lana Parker MD [address] [facility] 2 [place] [address] Surgeon Vascular Surgery 05/27/22 Jaime Treviño [address] [facility] [place] [address] Work Order Clerk Internal Medicine Cardiovascular Disease 05/28/[address] [place] [address] Dowel Pin Worker Pulmonology 05/28/22 Sharlene Moffett -Device nurse at Dr Treviño's Office 05/29/22 Frameman Relationship Specialty Start Date End Date Alexandre Ayoub MD 6 [place] [address] PCP - General Claims Auditor 05/27/22 Lana Parker MD [address] [facility] 2 [place] [address] Surgeon Vascular Surgery 05/27/22 Jaime Treviño [address] [place] [address] Work Order Clerk Internal Medicine Cardiovascular Disease 05/28/22 Zack [place] [place] [address] Dowel Pin Worker Pulmonology 05/28/22 Sharlene Moffett -Device nurse at Dr Treviño's Office 05/29/22 Frameman Relationship Specialty Start Date End Date Alexandre Ayoub MD [address] [place] [address] PCP - General Claims Auditor 05/27/22 Lana Parker MD [address] [address] Surgeon Vascular Surgery 05/27/22 Jaime Treviño [address] [facility] [place] [address] Work Order Clerk Internal Medicine Cardiovascular Disease 05/28/22 [place] [address] Dowel Pin Worker Pulmonology 05/28/22 Sharlene Moffett -Device nurse at Dr Treviño's Office 05/29/22 Frameman Relationship Specialty Start Date End Date Alexandre Ayoub MD [address] [place] [address] PCP - General Claims Auditor 05/27/22 Lana Parker MD [address] [address] Surgeon Vascular Surgery 05/27/22 Jaime Treviño [address] [facility] [address] Work Order Clerk Internal Medicine Cardiovascular Disease 05/28/22 Zack Tobar [address] [place] [address] Dowel Pin Worker Pulmonology 05/28/22 Sharlene Moffett -Device nurse at Dr Treviño's Office 05/29/22 Frameman Relationship Specialty Start Date End Date Alexandre Ayoub MD [address] [place] [address] PCP - General Claims Auditor 05/27/22 Lana Parker MD [address] [facility] 2 [place] [address] Surgeon Vascular Surgery 05/27/22 Jaime Treviño [address] [facility] [place] [address] Work Order Clerk Internal Medicine Cardiovascular Disease 05/28/22 Zack Tobar [address] [place] [address] Dowel Pin Worker Pulmonology 05/28/22 Sharlene Moffett -Device nurse at Dr Treviño's Office 05/29/22 Frameman Relationship Specialty Start Date End Date Alexandre Ayoub MD [address] [place] [address] PCP - General Claims Auditor 05/27/22 Lana Parker MD [address] [facility] 2 [place] [address] Surgeon Vascular Surgery 05/27/22 Pablito Treviñoril [address] [facility] [place] [address] Work Order Clerk Internal Medicine Cardiovascular Disease 05/28/22 Zack Tobar [address] [place] [address] Dowel Pin Worker Pulmonology 05/28/22 Sharlene Moffett -Device nurse at Dr Treviño's Office 05/29/22 Frameman Relationship Specialty Start Date End Date Alexandre Ayoub MD [address] [place] [address] PCP - General Claims Auditor 05/27/22 Lana Parker MD [address] [place] [address] Surgeon Vascular Surgery 05/27/22 Jaime Treviño [address] [place] [address] Work Order Clerk Internal Medicine Cardiovascular Disease 05/28/22 Zack Tobar [address] [facility] [place] [address] Dowel Pin Worker Pulmonology 05/28/22 Sharlene Moffett -Device nurse at Dr Treviño's Office 05/29/22 Frameman Relationship Specialty Start Date End Date Alexandre Ayoub MD [address] [place], [place] [address] PCP - General Claims Auditor 05/27/22 Lana Parker MD [address] [facility] [address] [place] [address] Surgeon Vascular Surgery 05/27/22 Jaime Treviño [address] [place] [address] Work Order Clerk Internal Medicine Cardiovascular Disease 05/28/22 Zack Tobar [address] [facility] [place] [address] Dowel Pin Worker Pulmonology 05/28/22 Sharlene Moffett -Device nurse at [...] 0800 0801 (Given - Provid er: Jane Coatse RN) apixaban (Eliquis) tablet 5 mg 5 [...] DATE CREATED AUTHOR AUTHOR'S ORGANIZ ATION 05/14/2023 Formerly [facility] FOR RECORDS PERTAINING TO PATIENTS WHO [...] BE BASED ON THE PRIMARY CLINICAL RECORDS. [employer] [facility]. provides no warranty or guarantee of the accuracy or completeness of information in this document.
[2023-05-16] MEDS: 0.9% Normal Saline (1000mL) 1,000 ML 100 ML IV (22:20)
[2023-05-16] MEDS: 0.9% Saline Lock 10 ML Syringe IV (22:26)
[2023-05-16] MEDS: traZODone 50 MG Tablet 150 MG PO (22:57)
[2023-05-16] MEDS: Gabapentin 600 MG Tablet PO (22:57)
[2023-05-16] MEDS: Dicyclomine 10 MG Capsule PO (22:57)
[2023-05-16] MEDS: busPIRone 5 MG Tablet 10 MG PO (23:26)
[2023-05-16] MEDS: APIXABAN 5 MG TABLET PO (23:27)
[2023-05-16 23:37] LABS: Hemoglobin A1c 5.1 % (3.8-5.6)
[2023-05-17 03:00] VITALS: BP 113/60; PULSE 68; RESP 16; TEMP 36.6; O2SAT 94
[2023-05-17 06:00] VITALS: BMI 23.7
[2023-05-17] MEDS: Gabapentin 300 MG Capsule PO ×2 (06:06→13:43)
[2023-05-17] MEDS: busPIRone 5 MG Tablet 10 MG PO ×2 (06:06→21:50)
[2023-05-17] MEDS: LORazepam 1 MG Tablet PO ×3 (06:06→21:49)
[2023-05-17] MEDS: Levothyroxine 25 MCG TABLET PO (06:07)
[2023-05-17 07:17] VITALS: PULSE 65; RESP 12; O2SAT 95
[2023-05-17] MEDS: Ipratropium/Albuterol Sulfate 3 ML AMPUL.NEB INHALATION ×3 (07:17→19:25)
[2023-05-17] MEDS: Budesonide Respules 0.5 MG/2 ML AMPUL.NEB. INHALATION ×2 (07:17→19:25)
--- NOTE | 2023-05-17 07:39 | PN.HOSP_ITS ---
Subjective Subjective Feels better. Objective Data Objective Data Vital Signs: Vital Signs Temp Pulse Resp BP Pulse Ox O2 Del Method 36.6 C 68 16 113/60 94 Room Air 05/17/23 03:00 05/17/23 03:00 05/17/23 03:00 05/17/23 03:00 05/17/23 03:00 05/17/23 03:50 Oxygen Delivery Method Room Air Weight: 58.8 kg Body Mass Index (BMI) 23.7 Intake & Output: Intake and Output for Last 24 Hours 05/15/23 05/16/23 05/17/23 23:59 23:59 23:59 Intake Total 900 / 900 220 / 220 Balance 900 / 900 220 / 220 Lab / Micro Data 05/17/23 06:41 05/17/23 06:41 Labs: Laboratory Results - last 24 hr 05/16/23 19:40: WBC 7.4, RBC 3.81 L, Hgb 11.3 L, Hct 34.2 L, MCV 89.8, MCH 29.7, MCHC 33.0, RDW Std Deviation 42.5, RDW Coeff of Natalie 13.1, Plt Count 219, MPV 10.2, Immature Gran % (Auto) 0.400, Neut % (Auto) 74.0 H, Lymph % (Auto) 11.7 L, Shelby % (Auto) 8.2, Eos % (Auto) 5.4 H, Baso % (Auto) 0.3, Absolute Neuts (auto) 5.4, Absolute Lymphs (auto) 0.86, Nucleated RBC % 0, Sodium 134 L, Potassium 4.9, Chloride 102, Carbon Dioxide 29.0, Anion Gap 3 L, BUN 61 H, Creatinine 3.04 H, Estim Creat Clear Calc 12.84, Est GFR (MDRD) Af Amer 19 L, Est GFR (MDRD) Non-Af 16 L, BUN/Creatinine Ratio 20.1 H, Glucose 101, Hemoglobin A1c 5.1, Calcium 9.1 05/16/23 20:15: Urine Color Yellow, Urine Clarity Clear, Urine pH 6.0, Ur Specific [place] 1.010, Urine Protein Negative, Urine Glucose (UA) Normal, Urine Ketones Negative, Urine Occult Blood Negative, Urine Nitrite Negative, Urine Bilirubin Negative, Urine Urobilinogen Normal, Ur Leukocyte Esterase 500 H, Urine RBC 0 SEEN, Urine WBC 0-5 SEEN, Ur Squamous Epith Cells 0-5 SEEN, Urine Bacteria RARE, Urine Mucus 0 SEEN Physical Exam Const alert HEENT head/scalp atraumatic and moist oral mucous membranes Resp normal respiratory effort, no retractions, no use of accessory muscles and clear to auscultation bilaterally Cardio regular rate, regular rhythm, S1 normal heart sound and S2 normal heart sound GI normal to inspection, nondistended, normoactive bowel sounds, soft to palpation, non-tender and non-distended Assessment & Plan Assessment/Plan (1) SAM (acute kidney injury): PLAN: Plan Subacute kidney injury * baseline creatinine 1.72 on 04/22, noted to be 2.94 on 05/06, then 2.93 on the and 3.04 on 05/15. Appears stable over the past 10-plus days. * suspect due to overdiuresis. Therefore, furosemide and spironolactone held. Creatinine been elevated before but patient started having nausea and vomiting and not able to take orals feel that is also component of dehydration from likely gastroenteritis. * HLIV * UA unremarkable * check FEUrea * nephrology on consult Chronic conditions: * CAD, AAA, PAD: stable. atorvastatin, clopidogrel * HTN: stable. hold diuretics given kidney injury. * HLD: Continue statin * COPD: not in exacerbation. continue BDs. * BELLE * tobacco abuse * pAfib: on amiodarone, apixaban, metoprolol tartrate, dilt * hypothyroidism, continue levothyroxine. * CHF: compensated. Diuretics held. VTE prophylaxis: Not indicated as patient is already anticoagulated. Charges/Coding Visit Charges Inpatient E&M: 85388 Subs Hosp L2
[2023-05-17 07:53] LABS: Absolute Lymphocyte Count 0.91 X10^3/uL (0.83-4.51); Absolute Neutrophil Count 3.5 X10^3/uL (2.0-7.7); Basophil# 0.03 X10^3/uL; Basophil% 0.6 % (0-1); Eosinophil# 0.26 X10^3/uL; Eosinophils% 5.1 % (0-5); Hematocrit 29.2 % (37-47); Hemoglobin 9.9 g/dL (12.0-15.0); Lymphocyte # 0.91 X10^3/ul (0.83-4.51); Mean Corp Hgb Conc 33.9 g/dL (32-36); Mean Corpuscular Hgb 30.4 pg (27.0-32.0); Mean Corpuscular Volume 89.6 fL (81-99); Mean Platelet Vol. 10.7 fl (6.2-12.0); Monocyte# 0.34 X10^3/uL; Monocyte% 6.7 % (0-10); NRBC Flagged by Analyzer 0 % (0-5); Neutrophil # 3.48 X10^3/uL (2.7-7.7); Platelet Count 189 K/mm3 (150-450); RBC Distribution Width CV 13.1 % (11.6-14.6); RBC Distribution Width SD 42.6 fl (35.1-43.9); Red Blood Count 3.26 M/mm3 (4.2-5.4); White Blood Count 5.1 K/mm3 (4.4-11.0)
[2023-05-17 08:29] LABS: ALB/GLOB Ratio 0.9 RATIO (0.9-2.4); AST(SGOT) 15 U/L (15-37); Alanine Aminotransfer ALT/SGPT 9 U/L (13-56); Albumin, Serum 2.9 g/dL (3.2-5.0); Alkaline Phosphatase 97 U/L (45-117); Anion Gap 6 (5-15); BUN 56 mg/dL (7-18); BUN/Creat Ratio 20.7 RATIO (10-20); Calcium,Total 8.1 mg/dL (8.5-10.1); Chloride 107 mmol/L (98-107); EST Glomerular Filtration Rate 18 mL/min (>60); Est Glom Filt Rate - Afr Amer 22 mL/min (>60); Estimated Creatinine Clearance 14.46 ml/min; Globulin 3.2 g/dL (2.2-4.2); Glucose 117 mg/dL (74-106); Magnesium 2.3 mg/dL (1.6-2.6); Phosphorus 3.5 mg/dL (2.5-4.9); Potassium 3.8 mmol/L (3.5-5.1); Protein, Total 6.1 g/dL (6.4-8.2); Sodium Level 138 mmol/L (136-145); Thyroid Stim Hormone (TSH) 5.77 uIU/mL (0.358-3.74)
[2023-05-17] MEDS: 0.9% Normal Saline (1000mL) 1,000 ML 100 ML IV (08:32)
[2023-05-17 08:33] VITALS: BP 121/63; PULSE 71; RESP 16; TEMP 37; O2SAT 100
[2023-05-17] MEDS: Isosorbide Mononitrate 60 MG Tablet PO (08:35)
[2023-05-17] MEDS: Dicyclomine 10 MG Capsule PO ×4 (08:36→21:49)
[2023-05-17] MEDS: Amiodarone 200 MG Tablet 100 MG PO (08:36)
[2023-05-17] MEDS: DULoxetine Hcl 30 MG Capsule 90 MG PO (08:36)
[2023-05-17] MEDS: Clopidogrel Bisulfate 75 MG Tablet PO (08:37)
[2023-05-17] MEDS: Pantoprazole Sodium 40 MG Tablet PO (08:37)
[2023-05-17] MEDS: APIXABAN 5 MG TABLET PO ×2 (08:37→21:50)
[2023-05-17] MEDS: Ascorbic Acid 500 MG Tablet 1000 MG PO (08:38)
[2023-05-17] MEDS: Cholecalciferol (VIT D3) 25 MCG TABLET (1,000 UNITS) PO (08:38)
[2023-05-17] MEDS: dilTIAZem CD 240 MG Capsule PO (08:38)
--- NOTE | 2023-05-17 09:57 | CASEMGMT ---
EZEKIEL PALMER Assessment Face to Face with patient for initial transition planning/care coordination assessment. EZEKIEL PALMER introduced self and role at [facility], pt voices understanding. Pt is A&Ox4 and is resting comfortably in bed and is calm. Care providers, pharmacy, and demographics verified. Admitting dx: SAM PCP: Anitra Specialists: Kamila, pt refuses seeing a data typist Preferred Pharmacy: [facility] Insurance: [employer], [facility] Prescription Benefit: Yes LNOK: Néstor Puri (SON) Living Arrangements: Pt lives with her GS(age14) in a 3 level home with a BM with HR throughout and 6 steps to enter the home with HR and no issues. ADLs/IADLs: Ind Transportation: Pt drives. Pt states her son will drive her home from [facility] DME: Walker and cane at home but does not use. Shower chair with GB. Denies all other DME uses or needs. HHC/SNF: Denies history or needs. Pt?s goal: Home no needs. Plan: 6-Click is 23. Pt states that she does not anticipate needing HD. Pt states that she wants to [facility] home and states that she feels safe and comfortable doing so. Pt denies HHC or OP therapy needs at this time. Micaela Luevano RN, CM
[2023-05-17 11:33] LABS: Urea Nitrogen, Urine 289 mg/dL (NO RANGE EST.)
[2023-05-17] MEDS: Ferrous Sulfate 325 MG Tablet PO ×2 (11:48→17:44)
[2023-05-17 13:35] VITALS: PULSE 72; RESP 16
[2023-05-17 19:25] VITALS: PULSE 49; RESP 15; O2SAT 96
[2023-05-17 21:43] VITALS: BP 116/51; PULSE 66; RESP 18; TEMP 36.9; O2SAT 98
[2023-05-17] MEDS: Gabapentin 600 MG Tablet PO (21:49)
[2023-05-17] MEDS: traZODone 50 MG Tablet 150 MG PO (21:50)
[2023-05-17] MEDS: Atorvastatin Calcium 40 MG Tablet PO (21:51)
[2023-05-18] VITALS (7 sets, daily range): BP systolic 125–130; BP diastolic 54–68; PULSE 70–86; RESP 14–18; TEMP 36.7–37.1; O2SAT 92–99; BMI 23.5
--- NOTE | 2023-05-18 03:10 | NURSING ---
Pt set off bed exit, upon entering room patient was up and walking around the room. Patient confused, does not know where she is at or what time it is, attempted to reorient but patient was adamant on leaving. While patient was up this RN noticed a white prescription bottle cap. Patient had home meds found in purse. Lorazepam bottle was empty, patient stating it has been empty. Trazodone bottle and melatonin found. Patient denies taking any medications except for one trazodone. While helping patient get settled multiple lorazepam pills were found. Bed, blankets, and floor searched for medication. Patient got back into bed, bed exit on and call light within reach. This RN let primary RN know, who contacted the MD. Vitals stable.
--- NOTE | 2023-05-18 03:16 | NURSING ---
pt confused and getting up all shift. this RN in with admission when another RN called and stated they found pt home meds of lorazepam, trazodone and melotonin in her room. this RN went in room, pt up walking around, found lorazepam pills in sheet on chair. meds taken from room and doctor called. meds locked up. vital sign stable. pt in bed with bed alarm on and call light in reach
[2023-05-18] MEDS: busPIRone 5 MG Tablet 10 MG PO ×2 (05:14→21:11)
[2023-05-18] MEDS: Levothyroxine 25 MCG TABLET PO (05:14)
[2023-05-18 06:49] LABS: Anion Gap 5 (5-15); BUN 43 mg/dL (7-18); BUN/Creat Ratio 19.5 RATIO (10-20); Calcium,Total 8.9 mg/dL (8.5-10.1); Chloride 109 mmol/L (98-107); EST Glomerular Filtration Rate 23 mL/min (>60); Est Glom Filt Rate - Afr Amer 28 mL/min (>60); Estimated Creatinine Clearance 17.74 ml/min; Glucose 94 mg/dL (74-106); Potassium 3.9 mmol/L (3.5-5.1); Sodium Level 140 mmol/L (136-145)
--- NOTE | 2023-05-18 08:14 | PN.HOSP_ITS ---
Reason for Visit Reason for Visit: Diagnoses Acute kidney failure, unspecified (05/16/23) Chronic kidney disease, stage 4 (severe) (05/16/23) Adverse effect of unspecified drugs, medicaments and biological substances, initial encounter (05/16/23) Subjective Subjective Patient was having some bizarre behavior, accusing her nurse of peeing on blan kets. It was then found that patient had asked some medications including benzodiazepines. Subsequently, the patient was difficult to arouse. Objective Data Objective Data Vital Signs: Vital Signs Temp Pulse Resp BP Pulse Ox O2 Del Method O2 Flow Rate 36.7 C 79 18 126/64 H 97 Room Air 3 05/18/23 02:56 05/18/23 02:56 05/18/23 02:56 05/18/23 02:56 05/18/23 07:33 05/18/23 07:33 05/17/23 07:17 Oxygen Flow Rate (L/min) 3 Oxygen Delivery Method Room Air Weight: 58.4 kg Body Mass Index (BMI) 23.5 Intake & Output: Intake and Output for Last 24 Hours 05/16/23 05/17/23 05/18/23 23:59 23:59 23:59 Intake Total 900 / 900 2031.67 / 2031.67 Balance 900 / 900 2031.67 / 2031.67 Lab / Micro Data 05/17/23 06:41 05/18/23 05:50 Labs: Laboratory Results - last 24 hr 05/17/23 06:41: Sodium 138, Potassium 3.8, Chloride 107, Carbon Dioxide 25.0, Anion Gap 6, BUN 56 H, Creatinine 2.70 H, Estim Creat Clear Calc 14.46, Est GFR (MDRD) Af Amer 22 L, Est GFR (MDRD) Non-Af 18 L, BUN/Creatinine Ratio 20.7 H, Glucose 117 H, Calcium 8.1 L, Phosphorus 3.5, Magnesium 2.3, Total Bilirubin 0.40, AST 15, ALT 9 L, Alkaline Phosphatase 97, Total Protein 6.1 L, Albumin 2.9 L, Globulin 3.2, Albumin/Globulin Ratio 0.9, TSH 5.77 H 05/17/23 10:15: Urine Creatinine 31.20, Urine Urea Nitrogen 289 05/18/23 05:50: Sodium 140, Potassium 3.9, Chloride 109 H, Carbon Dioxide 26.0, Anion Gap 5, BUN 43 H, Creatinine 2.20 H, Estim Creat Clear Calc 17.74, Est GFR (MDRD) Af Amer 28 L, Est GFR (MDRD) Non-Af 23 L, BUN/Creatinine Ratio 19.5, Glucose 94, Calcium 8.9 Physical Exam Const Constitutional Narrative: Lethargic. Responds to noxious stimuli to sternal rub. Does not respond to verbal stimuli. Eyes Eyes Narrative: Pupils are pinpoint. No icterus Resp normal respiratory effort, no retractions, no use of accessory muscles and clear to auscultation bilaterally Cardio regular rate, regular rhythm, S1 normal heart sound and S2 normal heart sound GI normal to inspection, nondistended, normoactive bowel sounds, soft to palpation, non-tender and non-distended Extremity normal to inspection Assessment & Plan Assessment/Plan (1) SAM (acute kidney injury): PLAN: Plan Subacute kidney injury * improving * baseline creatinine 1.72 on 04/22, noted to be 2.94 on 05/06, then 2.93 on the and 3.04 on 05/15. Appears stable over the past 10-plus days. * suspect due to overdiuresis. Therefore, furosemide and spironolactone held. Creatinine been elevated before but patient started having nausea and vomiting and not able to take orals feel that is also component of dehydration from likely gastroenteritis. * HLIV * UA unremarkable * FEUrea 47%. * nephrology on consult Encephalopathy * Suspect toxic. Looking at the patient's OARRS, she does get prescriptions for lorazepam as well as gabapentin. Patient may have taken more lorazepam and gabapentin from her own's supply. Patient has not received any lorazepam since last night at 2149 and gabapentin at the same time. * Head CT has been ordered--personally reviewed--no acute process. Official read pending. ABG pending. * Check an ABG * Hold potentiating medications (lorazepam and gabapentin). * If unstable, consider narcan or flumazenil. Chronic conditions: * CAD, AAA, PAD: stable. atorvastatin, clopidogrel * HTN: stable. hold diuretics given kidney injury. * HLD: Continue statin * COPD: not in exacerbation. continue BDs. * BELLE * tobacco abuse * pAfib: on amiodarone, apixaban, metoprolol tartrate, dilt * hypothyroidism, continue levothyroxine. TSH 5.77. * HFrEF: compensated. Diuretics held. EF 30% on echo from May 2022. VTE prophylaxis: Not indicated as patient is already anticoagulated. Charges/Coding Visit Charges Inpatient E&M: 28096 Subs Hosp L2
--- NOTE | 2023-05-18 09:26 | CT_ITS ---
EXAM: CT HEAD WITHOUT INTRAVENOUS CONTRAST CLINICAL INDICATION: unresponsiveness TECHNIQUE: Multiple axial images were obtained of the head without intravenous contrast. This CT exam was performed using one or more of the following dose reduction techniques: automated exposure control, adjustment of the mA and/or kV according to patient size, and/or use of iterative reconstruction technique. COMPARISON: CT Head dated 04/14/2023 FINDINGS: BRAIN AND EXTRA-AXIAL SPACES: No hemorrhage or mass effect. No acute ischemia. Areas of diminished white matter density noted within both cerebral hemispheres suggestive of chronic microvascular change. Prominence of the cortical sulci and ventricles related to volume loss change. Prominent CSF space posterior fossa which may represent an incidental arachnoid cyst or prominent cisterna magna. BONES/JOINTS: Normal calvarium. SINUSES: No acute sinusitis. MASTOID AIR CELLS: Normal. Clear. CT/Brain/Head without Contrast IMPRESSION: 1. No acute intracranial abnormality. 2. Stable senescent changes. Electronically Signed: Rob Rios MD at 14:40 EST ,
--- NOTE | 2023-05-18 10:16 | NURSING ---
Pt is drowsy this AM. After RN got pt to open her eyes, Pt refused to take her medications and closed her eyes again. RN made MD aware. MD orderd head CT.
[2023-05-18 11:24] LABS: Allen Test Positive; Base Excess -2 mmol/L (-2 to +2); Bicarbonate 23.7 mmol/L (22-26); Blood Gas Specimen Type ART; Mode Not entered; O2 Delivery Device Room Air; PO2 68 mmHG (75-100); SITE R Brach; SO2 92 % (95-99); Total Carbon Dioxide 25 mmol/L; pCO2 43.3 mmHg (35-45); pH 7.35 (7.35-7.45)
[2023-05-18] MEDS: APIXABAN 5 MG TABLET PO ×2 (11:55→21:11)
[2023-05-18] MEDS: dilTIAZem CD 240 MG Capsule PO (11:55)
[2023-05-18] MEDS: Amiodarone 200 MG Tablet 100 MG PO (11:55)
[2023-05-18] MEDS: Clopidogrel Bisulfate 75 MG Tablet PO (12:01)
[2023-05-18] MEDS: Isosorbide Mononitrate 60 MG Tablet PO (12:01)
[2023-05-18] MEDS: DULoxetine Hcl 30 MG Capsule 90 MG PO (12:01)
[2023-05-18] MEDS: Budesonide Respules 0.5 MG/2 ML AMPUL.NEB. INHALATION ×2 (12:39→19:26)
[2023-05-18] MEDS: Ipratropium/Albuterol Sulfate 3 ML AMPUL.NEB INHALATION ×2 (12:39→19:26)
--- NOTE | 2023-05-18 16:08 | PCM.CONS.R ---
Assessment & Plan Assessment/Plan (1) SAM (acute kidney injury): PLAN: CKD stage IIIa. Baseline creatinine around 1.2-1.3. Came in with a creatinine of 3.0. Urine analysis is fairly benign. No obstructive symptoms. Multiple diuretics prior to coming in. Currently volume status is okay. Creatinine is steadily improving. Most likely SAM is related to volume depletion. Continue to hold diuretics for now. Discussed with hospitalist. No further workup needed. HPI Consult Data Date of Consult: 05/18/23 HPI Narrative Reason for Consultation: Acute renal failure HPI Narrative: CURLY MORALES, is a 73 F who presents To the hospital with elevated creatinine. She was fairly drowsy today, most of the history is obtained from the charts. It seems she has known history of CKD stage IIIa, baseline creatinine around 1.3 or so. Prior to this admission there was a creatinine of 1.7. Routine lab work showed a creatinine of 3.0 hence she was referred to the emergency room. No history of any obstructive symptoms. She is on multiple diuretics at home. [facility] Medical History AAA (abdominal aortic aneurysm) without rupture Acute on chronic combined systolic (congestive) and diastolic (congestive) heart failure Acute on chronic diastolic (congestive) heart failure Acute respiratory failure with hypoxia Acute upper GI bleed Anemia Anxiety and depression Arthritis Atherosclerotic heart disease of [place] coronary artery without angina pectoris Atrial fibrillation with RVR Back contusion Bilateral carotid bruits BiPAP (biphasic positive airway pressure) dependence Cancer Cardiology follow-up encounter Carpal tunnel syndrome, bilateral Chest pain Chronic kidney disease, stage 4 (severe) Claudication in peripheral vascular disease Congestive heart failure (CHF) COPD (chronic obstructive pulmonary disease) COVID-19 (01/01/20) Delirium due to another medical condition Depression Dyspnea on exertion Emphysema of lung Essential (primary) hypertension Former smoker GERD (gastroesophageal reflux disease) High cholesterol History of CHF (congestive heart failure) History of irregular heartbeat History of stress test HLD (hyperlipidemia) Hx of echocardiogram Hypertension Hypokalemia IBS (irritable bowel syndrome) Injury of back Injury of head and neck Kidney disease Melena Multinodular thyroid Nicotine dependence Non-ischemic cardiomyopathy Non-STEMI (non-ST elevated myocardial infarction) (03/19/19) Obesity On home oxygen therapy BELLE (obstructive sleep apnea) Pacemaker PAD (peripheral artery disease) Peripheral vascular occlusive disease Persistent atrial fibrillation Pneumonia due to 2019 novel coronavirus (01/01/20) Post-menopausal Rheumatic fever Rheumatoid arthritis Sepsis (01/01/20) Sinus pause Sleep apnea Smoking greater than 30 pack years Tachy-erica syndrome Unstable angina pectoris due to coronary arteriosclerosis Wears dentures Wears glasses Wheezing Home Medications trazodone 150 mg tablet 150 mg PO QHS sleep 11/24/20 [History Last Taken 12/04/21] calcium carbonate 600 mg-vitamin D3 12.5 mcg (500 unit) capsule (Calcium 600 with Vitamin D3) 1 cap PO DAILY supplement 02/22/21 [History Last Taken 12/05/21] ascorbic acid (vitamin C) 1,000 mg tablet (Vitamin C) 1,000 mg PO DAILY supplement 12/05/21 [History Last Taken 12/04/21] lorazepam 1 mg tablet 1 mg PO TID PRN Anxiety 12/05/21 [History Last Taken 12/05/21] vitamin E (dl, acetate) 45 mg (100 unit) capsule 45 mg PO DAILY supplement 12/05/21 [History Last Taken 12/04/21] apixaban 5 mg tablet (Eliquis) 5 mg PO BID blood thinner #180 tabs 12/26/21 [Rx Last Taken Unknown] cholecalciferol (vitamin D3) 25 mcg (1,000 unit) capsule (Vitamin D3) 25 mcg PO DAILY SUPPLEMENT 04/25/22 [History Last Taken Unknown] clopidogrel 75 mg tablet 75 mg PO DAILY antiplatelet #90 tabs 06/12/22 [Rx Last Taken Unknown] metoprolol tartrate 100 mg tablet 100 mg PO BID BP #180 tabs 06/12/22 [Rx Last Taken Unknown] diltiazem HCl 240 mg capsule,24 hr,extended release 240 mg PO DAILY BP #90 caps 06/21/22 [Rx Last Taken Unknown] isosorbide mononitrate 60 mg tablet,extended release 24 hr 60 mg PO DAILY HEART #90 tabs 06/21/22 [Rx Last Taken Unknown] nitroglycerin 0.4 mg sublingual tablet (Nitrostat) 0.4 mg sublingual Q5M PRN Chest Pain #25 tabs 06/27/22 [Rx Last Taken Unknown] potassium chloride 20 mEq tablet,extended release 20 meq PO BID supplement #180 tabs 08/06/22 [Rx Last Taken Unknown] dapagliflozin propanediol 10 mg tablet (Farxiga) See Rx Instructions .Route .COMPLEX #30 TABLETS 08/20/22 [Rx Last Taken Unknown] furosemide 40 mg tablet 40 mg PO BID diuretic #60 tabs 10/29/22 [Rx Last Taken Unknown] duloxetine 60 mg capsule,delayed release 60 mg PO DAILY mental health #30 caps 11/21/22 [Rx Last Taken Unknown] albuterol sulfate 90 mcg/actuation aerosol inhaler 1 - 2 puff inhalation Q4H PRN PRN Dyspnea, wheezing ##1 01/15/23 [Rx Last Taken Unknown] fluticasone 500 mcg-salmeterol 50 mcg/dose blistr powdr for inhalation (Wixela Inhub) 1 inh inhalation BID breathing #60 ea 01/15/23 [Rx Last Taken Unknown] tiotropium bromide 2.5 mcg/actuation mist for inhalation (Spiriva Respimat) 2 puff inhalation DAILY COPD #4 grams 01/15/23 [Rx Last Taken Unknown] duloxetine 30 mg capsule,delayed release 30 mg PO DAILY mental health #30 caps 03/04/23 [Rx Last Taken Unknown] atorvastatin 40 mg tablet 40 mg PO DAILY cholesterol #90 tabs 03/18/23 [Rx Last Taken Unknown] pantoprazole 40 mg tablet,delayed release 40 mg PO DAILY GERD #90 tabs 03/18/23 [Rx Last Taken Unknown] ferrous sulfate 325 mg (65 mg iron) tablet 325 mg PO BID supplement #60 tabs 03/25/23 [Rx Last Taken Unknown] dicyclomine 10 mg capsule 10 mg PO 4X/DAY ibs #120 caps 04/21/23 [Rx Last Taken Unknown] amiodarone 200 mg tablet 100 mg (1/2 x 200 mg) PO DAILY BP #90 tabs 04/22/23 [Rx Last Taken Unknown] spironolactone 25 mg tablet 25 mg PO DAILY #30 tabs 04/22/23 [Rx Last Taken Unknown] levothyroxine 25 mcg tablet (Synthroid) 25 mcg PO DAILY #30 tabs 04/23/23 [Rx Last Taken Unknown] gabapentin 300 mg capsule See Rx Instructions .Route .COMPLEX #120 caps 04/25/23 [Rx Last Taken Unknown] buspirone 10 mg tablet 10 mg PO TID mental health #90 tabs 05/14/23 [Rx Last Taken Unknown] Allergy/AdvReac Type Severity Reaction Status Date / Time lisinopril Allergy tongue Verified 05/16/23 18:22 swelling Family History Father Heart disease Hypertension Seizures Sister Hypertension Son CVA (cerebral vascular accident) Daughter Cancer stomach Other Family history of hypertension Surgical History Cataract extraction status History of angioplasty of peripheral vessel History of bilateral leg stents History of bunionectomy of right great toe History of cardioversion (07/18/20) History of colonoscopy (06/2018) History of coronary artery stent placement (03/18/19) History of left heart catheterization (11/25/19) History of permanent cardiac pacemaker placement (03/27/20) History of tonsillectomy Hx of APLL Hx of cardiac cath Hx of colonoscopy Hx of hysterectomy S/P AAA repair Status post left foot surgery Social History household members: other details: grandson housing: house 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al status: retired 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 Smoking Status: Former smoker quit date: 04/17/20 pack-years: 20 Electronic Cigarette Use: not used how long ago did patient quit smoking: May 2020 alcohol intake: never substance use type: does not use caffeine: No what type of physical activity do you participate in: none do you feel safe at home: Yes ROS ROS Narrative Unable to obtain due to mental status Physical Exam Narrative no obvious distress no pallor no icterus no JVD s1s2 no murmurs lungs clear abdomen soft no organomegaly no edema no cyanosis Lab / Micro Data 05/17/23 06:41 05/18/23 05:50 Labs: Laboratory Results - last 24 hr 05/18/23 05:50: Sodium 140, Potassium 3.9, Chloride 109 H, Carbon Dioxide 26.0, Anion Gap 5, BUN 43 H, Creatinine 2.20 H, Estim Creat Clear Calc 17.74, Est GFR (MDRD) Af Amer 28 L, Est GFR (MDRD) Non-Af 23 L, BUN/Creatinine Ratio 19.5, Glucose 94, Calcium 8.9 ABG Data ABG results: ABG 05/18/23 11:19 Specimen Type ART Sample Site R Brach pH 7.35 Bicarbonate Actual 23.7 Total CO2 25 Base Excess -2 O2 Saturation 92 L ABG pCO2 43.3 ABG pO2 68 L Shaan Test Positive O2 Delivery Device Room Air Vent Mode Not entered Imaging Radiology Impression Brain CT 05/18/23 09:26 IMPRESSION: 1. No acute intracranial abnormality. 2. Stable senescent changes. Electronically Signed: Rob Rios MD at 14:40 EST ,
[2023-05-18] MEDS: Ferrous Sulfate 325 MG Tablet PO (17:39)
[2023-05-18] MEDS: Atorvastatin Calcium 40 MG Tablet PO (21:11)
[2023-05-19] VITALS (9 sets, daily range): BP systolic 108–183; BP diastolic 58–167; PULSE 82–178; RESP 14–20; TEMP 36.6–37; O2SAT 94–98; BMI 23.4
[2023-05-19] MEDS: Levothyroxine 25 MCG TABLET PO (05:40)
[2023-05-19] MEDS: Gabapentin 300 MG Capsule PO ×2 (05:40→15:33)
[2023-05-19] MEDS: busPIRone 5 MG Tablet 10 MG PO ×2 (05:40→15:34)
[2023-05-19] MEDS: Budesonide Respules 0.5 MG/2 ML AMPUL.NEB. INHALATION (07:10)
[2023-05-19] MEDS: Ipratropium/Albuterol Sulfate 3 ML AMPUL.NEB INHALATION ×2 (07:10→13:05)
[2023-05-19 07:19] LABS: Anion Gap 5 (5-15); BUN 37 mg/dL (7-18); BUN/Creat Ratio 19.7 RATIO (10-20); Chloride 110 mmol/L (98-107); Creatinine, Serum 1.88 mg/dL (0.55-1.02); EST Glomerular Filtration Rate 28 mL/min (>60); Est Glom Filt Rate - Afr Amer 34 mL/min (>60); Estimated Creatinine Clearance 20.76 ml/min; Glucose 86 mg/dL (74-106); Potassium 4.5 mmol/L (3.5-5.1); Sodium Level 140 mmol/L (136-145)
[2023-05-19] MEDS: Pantoprazole Sodium 40 MG Tablet PO (07:53)
[2023-05-19] MEDS: DULoxetine Hcl 30 MG Capsule 90 MG PO (07:54)
[2023-05-19] MEDS: Ferrous Sulfate 325 MG Tablet PO (07:54)
[2023-05-19] MEDS: Cholecalciferol (VIT D3) 25 MCG TABLET (1,000 UNITS) PO (07:54)
[2023-05-19] MEDS: Isosorbide Mononitrate 60 MG Tablet PO (07:55)
[2023-05-19] MEDS: dilTIAZem CD 240 MG Capsule PO (07:55)
[2023-05-19] MEDS: Ascorbic Acid 500 MG Tablet 1000 MG PO (07:55)
[2023-05-19] MEDS: APIXABAN 5 MG TABLET PO (07:56)
[2023-05-19] MEDS: Clopidogrel Bisulfate 75 MG Tablet PO (07:56)
[2023-05-19] MEDS: Amiodarone 200 MG Tablet 100 MG PO (07:56)
--- NOTE | 2023-05-19 08:45 | NURSING ---
Patient called out stating that she felt like her heart was racing. Patient was placed on medical supervisor and found to be in SVT in 170's. BP 129/84, denies any other symptoms. Dr Pelaez paged and orders received for 5Mg IV Metoprolol.
[2023-05-19] MEDS: Metoprolol Tartrate 5 MG/5 ML Vial IV ×2 (09:33→11:42)
--- NOTE | 2023-05-19 11:20 | EKG12_ITS ---
Test Reason : Blood Pressure : / mmHG Vent. Rate : 141 BPM Atrial Rate : 159 BPM P-R Int : 280 ms QRS Dur : 118 ms QT Int : 334 ms P-R-T Axes : 102 003 251 degrees QTc Int : 511 ms Critical Test Result: High HR Sinus tachycardia with 1st degree A-V block with occasional Premature atrial complexes Left ventricular hypertrophy with QRS widening and repolarization abnormality ( [place] product ) Abnormal ECG Confirmed by Antonio Hudson ([id number]), advertising editor MAREN GRIMES ([id number]) on 05/20/2023 2:20:10 PM Referred By: ROBERTO Confirmed By:Antonio Hudson
[2023-05-19] MEDS: 0.9% Saline Lock 10 ML Syringe IV (11:37)
[2023-05-19] MEDS: Metoprolol Tartrate 100 MG Tablet PO (12:08)
--- NOTE | 2023-05-19 13:08 | PCM.DC ---
Discharge Instructions Diet Discharge Diet: No restrictions Activity Discharge Activity: No Restrictions Weight Bearing Status: Full weight bearing Follow Up Care Please Follow Up With: Jaime Treviño MD When: 1-2 weeks Test Results: Test results from this visit will be discussed in further detail at your follow-up appointment, if applicable. Discharge Plan Admission Admit Date/Time: 05/16/23 21:26 Primary Reason for Your Visit: acute kidney injury due to overdiuresis Attending Provider: Juan Carlos Abraham Primary Care Provider: Opal Ayoub Consulting Providers: Taylor Saldivar; Angel Vicente Instructions Additional Instructions / Restrictions: Take Lasix 40 mg only once daily for now. Take Spironolactone 25 mg daily as normal. Continue other home medications as before. Please have a repeat BMP drawn in 5-7 days to ensure your kidney function is continuing to improve. Follow up with your PCP and the operations label clerk in the next 1-2 weeks. Discharge Orders/Prescriptions Prescriptions: Continued calcium carbonate-vitamin D3 [Calcium 600 with Vitamin D3] 600 mg(1,500mg) -500 unit capsule 1 cap PO DAILY duloxetine 60 mg capsule,delayed release(DR/EC) 60 mg PO DAILY Qty: 30 5RF albuterol sulfate 90 mcg/actuation HFA aerosol inhaler 1 - 2 puff INHALATION Q4H PRN PRN (Reason: Dyspnea, wheezing) Qty: 1 6RF fluticasone propion-salmeterol [Wixela Inhub] 500-50 mcg/dose blister with device 1 inh INHALATION BID Qty: 60 6RF Spiriva Respimat 2.5 mcg/actuation mist 2 puff inhalation DAILY Qty: 4 11RF trazodone 150 mg Tablet 150 mg PO QHS ascorbic acid (vitamin C) [Vitamin C] 1,000 mg tablet 1,000 mg PO DAILY lorazepam 1 mg tablet 1 mg PO TID PRN (Reason: Anxiety) Rx Instructions: TAKE 1 TABLET BY MOUTH THREE TIMES A DAY AND 1 TABLET TWICE A DAY NEEDED FOR ANXIETY/RESTLESSNESS (PALLIATIVE CARE) vitamin E (dl, acetate) 45 mg (100 unit) capsule 45 mg PO DAILY cholecalciferol (vitamin D3) [Vitamin D3] 25 mcg (1,000 unit) Capsule 25 mcg PO DAILY Eliquis 5 mg tablet 5 mg PO BID Qty: 180 3RF clopidogrel 75 mg tablet 75 mg PO DAILY Qty: 90 3RF metoprolol tartrate 100 mg tablet 100 mg PO BID Qty: 180 3RF diltiazem HCl 240 mg capsule,extended release 24 hr 240 mg PO DAILY Qty: 90 3RF isosorbide mononitrate 60 mg tablet extended release 24 hr 60 mg PO DAILY Qty: 90 3RF nitroglycerin [Nitrostat] 0.4 mg tablet, sublingual 0.4 mg SUBLINGUAL Q5M PRN (Reason: Chest Pain) Qty: 25 3RF Farxiga 10 mg tablet See Rx Instructions .ROUTE .COMPLEX Qty: 30 5RF Dose Instruction: TAKE 1 TABLET BY MOUTH DAILY Rx Instructions: TAKE 1 TABLET BY MOUTH DAILY duloxetine 30 mg capsule,delayed release(DR/EC) 30 mg PO DAILY Qty: 30 5RF pantoprazole 40 mg tablet,delayed release (DR/EC) 40 mg PO DAILY Qty: 90 0RF atorvastatin 40 mg tablet 40 mg PO DAILY Qty: 90 0RF dicyclomine 10 mg capsule 10 mg PO 4X/DAY Qty: 120 0RF spironolactone 25 mg tablet 25 mg PO DAILY Qty: 30 11RF amiodarone 200 mg tablet 100 mg PO DAILY Qty: 90 3RF levothyroxine [Synthroid] 25 mcg tablet 25 mcg PO DAILY Qty: 30 1RF gabapentin 300 mg capsule See Rx Instructions .ROUTE .COMPLEX Qty: 120 0RF Dose Instruction: TAKE 1 CAPSULE BY MOUTH IN THE MORNING and AFTERNOON. TAKE 2 (TWO) CAPSULES BY MOUTH AT BEDTIME Rx Instructions: TAKE 1 CAPSULE BY MOUTH IN THE MORNING and AFTERNOON. TAKE 2 (TWO) CAPSULES BY MOUTH AT BEDTIME buspirone 10 mg tablet 10 mg PO TID Qty: 90 1RF Changed furosemide 40 mg tablet 40 mg PO DAILY Qty: 60 12RF ferrous sulfate 325 mg (65 mg iron) tablet 325 mg PO DAILY Qty: 60 5RF Discontinued potassium chloride 20 mEq tablet extended release 20 meq PO BID Qty: 180 3RF Referrals / Follow Up: Opal Ayoub MD [Primary Care Provider] - Disposition Disposition (needs filled in before D/C Order can be placed): Home, Self Care
--- NOTE | 2023-05-19 13:16 | PCM.DC.SUM ---
Providers Date of Admission: 05/16/23 Date of Discharge: 05/19/23 Primary Care Physician: Dr. Opal Ayoub MD Consultations 05/16/23 22:33 Consult: Nephrology Routine Consulting Provider: Taylor Saldivar Reason for Consult: elevated creatinine EMERGENT Consult: No MD Notified: Yes Date Notified: 05/17/23 Time Notified: 08:04 Method of Notification: Answering Service Reason For Visit: SAM; IN THE SETTING OF STAGE IV CKD Diagnosis Discharge Diagnosis (1) SAM (acute kidney injury): Status: Acute Code(s): N17.9 - Acute kidney failure, unspecified Medications at Discharge Home Medications trazodone 150 mg tablet 150 mg PO QHS sleep 11/24/20 calcium carbonate 600 mg-vitamin D3 12.5 mcg (500 unit) capsule (Calcium 600 with Vitamin D3) 1 cap PO DAILY supplement 02/22/21 ascorbic acid (vitamin C) 1,000 mg tablet (Vitamin C) 1,000 mg PO DAILY supplement 12/05/21 lorazepam 1 mg tablet 1 mg PO TID PRN Anxiety 12/05/21 vitamin E (dl, acetate) 45 mg (100 unit) capsule 45 mg PO DAILY supplement 12/05/21 apixaban 5 mg tablet (Eliquis) 5 mg PO BID blood thinner #180 tabs 12/26/21 cholecalciferol (vitamin D3) 25 mcg (1,000 unit) capsule (Vitamin D3) 25 mcg PO DAILY SUPPLEMENT 04/25/22 clopidogrel 75 mg tablet 75 mg PO DAILY antiplatelet #90 tabs 06/12/22 metoprolol tartrate 100 mg tablet 100 mg PO BID BP #180 tabs 06/12/22 diltiazem HCl 240 mg capsule,24 hr,extended release 240 mg PO DAILY BP #90 caps 06/21/22 isosorbide mononitrate 60 mg tablet,extended release 24 hr 60 mg PO DAILY HEART #90 tabs 06/21/22 nitroglycerin 0.4 mg sublingual tablet (Nitrostat) 0.4 mg sublingual Q5M PRN Chest Pain #25 tabs 06/27/22 dapagliflozin propanediol 10 mg tablet (Farxiga) See Rx Instructions .Route .COMPLEX #30 TABLETS 08/20/22 duloxetine 60 mg capsule,delayed release 60 mg PO DAILY mental health #30 caps 11/21/22 albuterol sulfate 90 mcg/actuation aerosol inhaler 1 - 2 puff inhalation Q4H PRN PRN Dyspnea, wheezing ##1 01/15/23 fluticasone 500 mcg-salmeterol 50 mcg/dose blistr powdr for inhalation (Wixela Inhub) 1 inh inhalation BID breathing #60 ea 01/15/23 tiotropium bromide 2.5 mcg/actuation mist for inhalation (Spiriva Respimat) 2 puff inhalation DAILY COPD #4 grams 01/15/23 duloxetine 30 mg capsule,delayed release 30 mg PO DAILY mental health #30 caps 03/04/23 atorvastatin 40 mg tablet 40 mg PO DAILY cholesterol #90 tabs 03/18/23 pantoprazole 40 mg tablet,delayed release 40 mg PO DAILY GERD #90 tabs 03/18/23 dicyclomine 10 mg capsule 10 mg PO 4X/DAY ibs #120 caps 04/21/23 amiodarone 200 mg tablet 100 mg (1/2 x 200 mg) PO DAILY BP #90 tabs 04/22/23 spironolactone 25 mg tablet 25 mg PO DAILY #30 tabs 04/22/23 levothyroxine 25 mcg tablet (Synthroid) 25 mcg PO DAILY #30 tabs 04/23/23 gabapentin 300 mg capsule See Rx Instructions .Route .COMPLEX #120 caps 04/25/23 buspirone 10 mg tablet 10 mg PO TID mental health #90 tabs 05/14/23 ferrous sulfate 325 mg (65 mg iron) tablet 325 mg PO DAILY supplement #60 tabs 05/19/23 furosemide 40 mg tablet 40 mg PO DAILY diuretic #60 tabs 05/19/23 Hospital Course Summary of Care Provided Minutes Spent on Discharge: 35 Hospital Course: Patient is a 73-year-old female who presented [facility] ED on 05/16/2023 with worsening kidney function noted on outpatient labs. 1. SAM on CKD stage IIIa, improving ? Nephrology followed. Baseline creatinine 1.2-1.3. UA fairly benign, no obstructive symptoms, noted to be on multiple diuretics prior to admission. Suspected that SAM was related to volume depletion. Diuretics held during admission with improving creatinine, creatinine 1.88 on discharge. Okay to resume diuretics at reduced dose of Lasix 40 mg daily, spironolactone 25 mg daily on discharge. Recommend repeat BMP in 5 to 7 days to ensure continued resolution of SAM. 2. Acute toxic encephalopathy, resolved ? Suspect the patient may have taken either lorazepam and/or gabapentin from her own supply during the admission. Had an episode of significant lethargy and decreased responsiveness on 05/17. CT head nonacute, ABG unremarkable. Mentation improved back to baseline on 05/18. 3. Paroxysmal A-fib with history of tachybradycardia syndrome s/p pacemaker placement ? Follows with outpatient cardiology. Home medications of amiodarone 100 mg daily, Lopressor 100 mg twice daily, diltiazem to 240 mg daily. Patient noted to have fairly significant runs of tachycardia to the 160s to 170s on morning of 05/18. Her Lopressor had been held due to SAM as noted above. Gave 2 doses of IV Lopressor 5 mg and restarted home Lopressor with improvement in heart rate to 110s to 120s. Blood pressure remained stable throughout, patient asymptomatic. Continue home medications on discharge, follow-up with outpatient cardiology as previously scheduled. Chronic medical conditions: ? CAD, AAA, PAD, HPL: Stable. Continue home atorvastatin and Plavix. ? Hypertension: Home Imdur and Lopressor held during admission due to SAM, okay to resume on discharge. ? COPD: Not in acute exacerbation. Continue home bronchodilators. ? BELLE: Continue home PAP therapy. ? Hypothyroidism: TSH 5.77 on admit. Continue home Synthroid. ? HFrEF: Compensated. EF 30% on echo from May 2022. Diuretics held on admit, okay to resume Lasix 40 mg daily and spironolactone 25 mg daily on discharge with close outpatient follow-up with cardiology. Total clinical time spent by myself addressing the patient's discharge needs: 35 minutes. Physical Exam Const alert, oriented x3, no apparent distress and average body habitus General Appearance: cooperative and comfortable HEENT normocephalic, head/scalp atraumatic, hearing grossly normal bilaterally, nasal mucous membranes and turbinates normal and moist oral mucous membranes Eyes PERRL, EOMs intact bilaterally and conjunctivae normal Neck full ROM Chest inspection of chest normal Resp normal respiratory effort, normal air movement, no use of accessory muscles and clear to auscultation bilaterally Cardio no murmurs and peripheral pulses 2+ throughout Cardio Narrative: Tachycardic, regular rhythm. GI normal to inspection, nondistended, normoactive bowel sounds, soft to palpation, non-tender and non-distended Back/Spine normal ROM Extremity normal to inspection, full ROM and no pedal edema Skin no rashes or lesions noted Neuro no focal motor deficits and no sensory deficits noted Speech: speech normal Psych mental status grossly normal Weight / BMI Weight Weight: 58.2 kg Body Mass Index (BMI) 23.4 ABG / Lab / Microbiology Data 05/17/23 06:41 05/19/23 06:17 Laboratory: Laboratory Results - last 24 hr 05/19/23 06:17: Sodium 140, Potassium 4.5, Chloride 110 H, Carbon Dioxide 25.0, Anion Gap 5, BUN 37 H, Creatinine 1.88 H, Estim Creat Clear Calc 20.76, Est GFR (MDRD) Af Amer 34 L, Est GFR (MDRD) Non-Af 28 L, BUN/Creatinine Ratio 19.7, Glucose 86, Calcium 9.0 Radiography Diagnostic Testing: Radiology Impression Brain CT 05/18/23 09:26 IMPRESSION: 1. No acute intracranial abnormality. 2. Stable senescent changes. Electronically Signed: Rob Rios MD at 14:40 EST Reading Location ID and State: [address] [place] [address] Tel , Service support , D/C Instructions Discharge Diet: No restrictions Weight Bearing Status: Full weight bearing Please Follow Up With: Jaime Treviño MD When: 1-2 weeks Meaningful Use Info Meaningful Use Diagnoses (Choose all that apply): None applicable Discharge Plan Admission Admit Date/Time: 05/16/23 21:26 Primary Reason for Your Visit: acute kidney injury due to overdiuresis Attending Provider: Juan Carlos Abraham Primary Care Provider: Opal Ayoub Consulting Providers: Taylor Saldivar; Angel Vicente Instructions Additional Instructions / Restrictions: Take Lasix 40 mg only once daily for now. Take Spironolactone 25 mg daily as normal. Continue other home medications as before. Please have a repeat BMP drawn in 5-7 days to ensure your kidney function is continuing to improve. Follow up with your PCP and the geriatric assistant in the next 1-2 weeks. Discharge Orders/Prescriptions Prescriptions: Continued calcium carbonate-vitamin D3 [Calcium 600 with Vitamin D3] 600 mg(1,500mg) -500 unit capsule 1 cap PO DAILY duloxetine 60 mg capsule,delayed release(DR/EC) 60 mg PO DAILY Qty: 30 5RF albuterol sulfate 90 mcg/actuation HFA aerosol inhaler 1 - 2 puff INHALATION Q4H PRN PRN (Reason: Dyspnea, wheezing) Qty: 1 6RF fluticasone propion-salmeterol [Wixela Inhub] 500-50 mcg/dose blister with device 1 inh INHALATION BID Qty: 60 6RF Spiriva Respimat 2.5 mcg/actuation mist 2 puff inhalation DAILY Qty: 4 11RF trazodone 150 mg Tablet 150 mg PO QHS ascorbic acid (vitamin C) [Vitamin C] 1,000 mg tablet 1,000 mg PO DAILY lorazepam 1 mg tablet 1 mg PO TID PRN (Reason: Anxiety) Rx Instructions: TAKE 1 TABLET BY MOUTH THREE TIMES A DAY AND 1 TABLET TWICE A DAY NEEDED FOR ANXIETY/RESTLESSNESS (PALLIATIVE CARE) vitamin E (dl, acetate) 45 mg (100 unit) capsule 45 mg PO DAILY cholecalciferol (vitamin D3) [Vitamin D3] 25 mcg (1,000 unit) Capsule 25 mcg PO DAILY Eliquis 5 mg tablet 5 mg PO BID Qty: 180 3RF clopidogrel 75 mg tablet 75 mg PO DAILY Qty: 90 3RF metoprolol tartrate 100 mg tablet 100 mg PO BID Qty: 180 3RF diltiazem HCl 240 mg capsule,extended release 24 hr 240 mg PO DAILY Qty: 90 3RF isosorbide mononitrate 60 mg tablet extended release 24 hr 60 mg PO DAILY Qty: 90 3RF nitroglycerin [Nitrostat] 0.4 mg tablet, sublingual 0.4 mg SUBLINGUAL Q5M PRN (Reason: Chest Pain) Qty: 25 3RF Farxiga 10 mg tablet See Rx Instructions .ROUTE .COMPLEX Qty: 30 5RF Dose Instruction: TAKE 1 TABLET BY MOUTH DAILY Rx Instructions: TAKE 1 TABLET BY MOUTH DAILY duloxetine 30 mg capsule,delayed release(DR/EC) 30 mg PO DAILY Qty: 30 5RF pantoprazole 40 mg tablet,delayed release (DR/EC) 40 mg PO DAILY Qty: 90 0RF atorvastatin 40 mg tablet 40 mg PO DAILY Qty: 90 0RF dicyclomine 10 mg capsule 10 mg PO 4X/DAY Qty: 120 0RF spironolactone 25 mg tablet 25 mg PO DAILY Qty: 30 11RF amiodarone 200 mg tablet 100 mg PO DAILY Qty: 90 3RF levothyroxine [Synthroid] 25 mcg tablet 25 mcg PO DAILY Qty: 30 1RF gabapentin 300 mg capsule See Rx Instructions .ROUTE .COMPLEX Qty: 120 0RF Dose Instruction: TAKE 1 CAPSULE BY MOUTH IN THE MORNING and AFTERNOON. TAKE 2 (TWO) CAPSULES BY MOUTH AT BEDTIME Rx Instructions: TAKE 1 CAPSULE BY MOUTH IN THE MORNING and AFTERNOON. TAKE 2 (TWO) CAPSULES BY MOUTH AT BEDTIME buspirone 10 mg tablet 10 mg PO TID Qty: 90 1RF Changed furosemide 40 mg tablet 40 mg PO DAILY Qty: 60 12RF ferrous sulfate 325 mg (65 mg iron) tablet 325 mg PO DAILY Qty: 60 5RF Discontinued potassium chloride 20 mEq tablet extended release 20 meq PO BID Qty: 180 3RF Referrals / Follow Up: Opal Ayoub MD [Primary Care Provider] - 06/10/23 9:30 am Disposition Disposition (needs filled in before D/C Order can be placed): Home, Self Care Charges/Coding Visit Charges Inpatient E&M: 99207 Disch Hosp >30min
--- NOTE | 2023-05-19 13:58 | CASEMGMT ---
Patient has order for discharge. RN CM in to discuss needs at discharge. Patient denies needs or additional help at discharge. Patient states son will take patient home at discharge. Patient is active with [facility]. Patient follow up with PCP and [facility]. Patient had no further questions or concerns.
--- NOTE | 2023-05-19 16:25 | CHAPLAIN ---
Type of Pastoral Visit _x__ Initial Visit ___ Follow-up Visit ___ On-call Visit ___ General Patient Visit ___ Spiritual Assessment ___ Family Conference ___ Bereavement ___ Rapid Response ___ Code Blue ___ Other (describe below) Pastoral Care Referral From _x__ Patient ___ Family ___ Nurse ___ Physician ___ Order Selector ___ Apartment Rental Agent ___ Other (describe below) Sacrament/Intervention _x__ Active listening ___ Anointing ___ Yarsani ___ Bereavement ___ Communion ___ Ursula exploration ___ _x__ Life review _x__ Prayer ___ Reconciliation ___ Sacrament of Sick _x__ Supportive presence ___ Wedding ___ Other (describe below) Pastoral Comments patient is welcoming of someone to talk with and to sit with her awhile; pt speaks of her health and of the of her daughter which has given her the now 15 year old grandson to raise; grandson is my life and jair ; pt has limited resources for her own support in transportation and care but expresses ursula and hope; pt welcomes prayer
== END 2023-05-19 16:50 | disposition home or self-care (01) | DRG 682 ==
LOC: ED 20:42 → PCU 20:52
PROVIDERS: Admitting Provider Internal Medicine; Emergency Provider Emergency Medicine; PCP Internal Medicine; Visit Provider Hospitalist
DX: N17.9 Acute kidney failure, unspecified (principal); G92.9 Unspecified toxic encephalopathy; I50.43 Acute on chronic combined systolic (congestive) and diastolic (congestive) heart failure; I13.0 Hypertensive heart and chronic kidney disease with heart failure and stage 1 through stage 4 chronic kidney disease, or unspecified chronic kidney disease; E11.22 Type 2 diabetes mellitus with diabetic chronic kidney disease; I48.0 Paroxysmal atrial fibrillation; E03.9 Hypothyroidism, unspecified; E86.9 Volume depletion, unspecified; N18.4 Chronic kidney disease, stage 4 (severe); J44.9 Chronic obstructive pulmonary disease, unspecified; E78.00 Pure hypercholesterolemia, unspecified; I25.10 Atherosclerotic heart disease of native coronary artery without angina pectoris; G47.33 Obstructive sleep apnea (adult) (pediatric); F41.8 Other specified anxiety disorders; M19.90 Unspecified osteoarthritis, unspecified site; I25.2 Old myocardial infarction; K21.9 Gastro-esophageal reflux disease without esophagitis; Z95.5 Presence of coronary angioplasty implant and graft; Z79.84 Long term (current) use of oral hypoglycemic drugs; Z79.02 Long term (current) use of antithrombotics/antiplatelets; Z87.891 Personal history of nicotine dependence; Z79.01 Long term (current) use of anticoagulants; Z99.81 Dependence on supplemental oxygen; Z79.899 Other long term (current) drug therapy; Z79.51 Long term (current) use of inhaled steroids; Z98.62 Peripheral vascular angioplasty status; Z95.0 Presence of cardiac pacemaker; Z90.710 Acquired absence of both cervix and uterus; T50.2X5A Adverse effect of carbonic-anhydrase inhibitors, benzothiadiazides and other diuretics, initial encounter
CPT/HCPCS: 36415; 36600; 70450; 80048; 80053; 81001; 82570; 82803; 83036; 83735; 84100; 84443; 84540; 85025; 93005; 94640; 94668; 97161; 97166; 99285; J7030; J7040; A4216

== ENCOUNTER → 2023-05-26 | Outpatient (CLI) | payer MEDICARE, MEDICAID, SELFPAY ==
[2019-07-16 09:26] VITALS: BMI 29.5
--- NOTE | 2023-05-26 14:10 | ECHOD_ITS ---
Reason For Study: Dyspnea/SOB Procedure This was a 2D Doppler, Color Flow transthoracic echocardiogram. Exam performed in department. Left Ventricle Normal LV size. Moderate concentric left ventricular hypertrophy. Mild to moderate global left ventricular systolic dysfunction. The left ventricular ejection fraction is 40 %. There is mild to moderate global hypokinesis of the left ventricle. Right Ventricle Normal RV size. ICD or pacer leads identified within the right ventricle. Normal systolic function. Mitral Valve Bileaflet diffuse mitral valve thickening. There is mild to moderate mitral annular calcification. Moderate (2+) eccentric mitral valve insufficiency. Tricuspid Valve Normal tricuspid valve. Mild (1+) tricuspid valve insufficiency. Aortic Valve Trisinus/trileaflet aortic valve. Mild focal aortic valve thickening. Mild-Moderate (1-2+) aortic valve insufficiency. Pulmonic Valve Normal pulmonic valve. Mild (1+) pulmonic valve insufficiency. Great Vessels Normal aortic root. The pulmonary artery is normal size. Pericardium/Pleural No pericardial effusion. MMode/2D Measurements & Calculations LVIDd: 4.9 cm IVSd: 1.6 cm Ao root diam: 3.1 cm LVIDs: 4.2 cm LVPWd: 1.2 cm LA dimension: 5.4 cm RVDd: 3.3 cm FS: 14.0 % LAV(MOD-bp): 120.3 ml LA A4 area: 30.8 cm2 RA A4 area: 13.0 cm2 LAV(MOD-bp) Indexed: 76.1 ml/m2 LAV(MOD-sp2): 131.4 ml LAV(MOD-sp4): 103.6 ml Time Measurements MV dec time: 0.17 sec Doppler Measurements & Calculations MV E max isaac: 106.1 cm/sec MV V2 max: 139.3 cm/sec MV P1/2t max isaac: 149.0 cm/sec MV A max isaac: 52.0 cm/sec MV max P.8 mmHg MV P1/2t: 61.2 msec MV E/A: 2.0 MV V2 mean: 76.5 cm/sec MV mean P.7 mmHg MV dec slope: 712.3 cm/sec2 MV V2 VTI: 29.0 cm MVA(P1/2t): 3.6 cm2 Ao V2 max: 118.9 cm/sec AI max isaac: 454.4 cm/sec LV V1 max: 90.5 cm/sec Ao max P.7 mmHg AI max P.8 mmHg LV V1 max P.3 mmHg Ao V2 mean: 76.4 cm/sec LV V1 mean P.7 mmHg Ao mean P.8 mmHg AI dec slope: 302.4 cm/sec2 LV V1 mean: 60.5 cm/sec Ao V2 VTI: 22.1 cm AI P1/2t: 440.1 msec LV V1 VTI: 18.7 cm AV (velocity ratio): 0.85 MR max isaac: 508.5 cm/sec PA V2 max: 80.6 cm/sec MR max P.4 mmHg PA V2 mean: 54.6 cm/sec PI dec slope: 189.5 cm/sec2 MR mean isaac: 353.4 cm/sec MR mean P.3 mmHg MR VTI: 176.7 cm TR max isaac: 233.6 cm/sec TR max P.8 mmHg ECHO/Echo Complete Interpretation Summary Normal LV size. The left ventricular ejection fraction is 40 %. Mild to moderate global left ventricular systolic dysfunction. Mild (1+) tricuspid valve insufficiency. Compared to previous study, the left ventricular systolic function has improved .. Ordering Physician: Evelyn Collier Referring Physician: Evelyn Collier Performed By: Donis Hammond RCS
== END | disposition home or self-care (01) ==
PROVIDERS: PCP Internal Medicine; Referring Provider Physician Assistant Medical; Visit Provider Physician Assistant Medical
DX: I25.10 Atherosclerotic heart disease of native coronary artery without angina pectoris (principal)
CPT/HCPCS: 93306

== ENCOUNTER → 2023-06-03 | Outpatient (CLI) | payer MEDICARE, MEDICAID, SELFPAY ==
[2019-07-16 09:26] VITALS: BMI 29.5
[2023-06-03 11:53] LABS: Absolute Lymphocyte Count 1.03 X10^3/uL (0.83-4.51); Absolute Neutrophil Count 5.4 X10^3/uL (2.0-7.7); Basophil# 0.05 X10^3/uL; Basophil% 0.7 % (0-1); Eosinophil# 0.28 X10^3/uL; Eosinophils% 3.9 % (0-5); Hematocrit 34.9 % (37-47); Hemoglobin 11.3 g/dL (12.0-15.0); Lymphocyte # 1.03 X10^3/ul (0.83-4.51); Lymphocyte % 14.2 % (19-41); Mean Corp Hgb Conc 32.4 g/dL (32-36); Mean Corpuscular Hgb 29.4 pg (27.0-32.0); Mean Corpuscular Volume 90.9 fL (81-99); Mean Platelet Vol. 10.3 fl (6.2-12.0); Monocyte# 0.47 X10^3/uL; Monocyte% 6.5 % (0-10); NRBC Flagged by Analyzer 0 % (0-5); Neutrophil % 74.3 % (47-70); Platelet Count 227 K/mm3 (150-450); RBC Distribution Width CV 13.8 % (11.6-14.6); RBC Distribution Width SD 45.4 fl (35.1-43.9); Red Blood Count 3.84 M/mm3 (4.2-5.4); White Blood Count 7.3 K/mm3 (4.4-11.0)
[2023-06-03 12:21] LABS: AST(SGOT) 14 U/L (15-37); Alanine Aminotransfer ALT/SGPT 10 U/L (13-56); Albumin, Serum 3.6 g/dL (3.2-5.0); Alkaline Phosphatase 114 U/L (45-117); Anion Gap 6 (5-15); BUN 60 mg/dL (7-18); BUN/Creat Ratio 17.3 RATIO (10-20); Bilirubin, Direct 0.17 mg/dL (0.00-0.30); Chloride 99 mmol/L (98-107); Cholesterol 115 mg/dL (200); Creatinine, Serum 3.46 mg/dL (0.55-1.02); EST Glomerular Filtration Rate 14 mL/min (>60); Est Glom Filt Rate - Afr Amer 17 mL/min (>60); Globulin 3.7 g/dL (2.2-4.2); Glucose 103 mg/dL (74-106); High Density Lipoprotein 39 mg/dL; Potassium 5.5 mmol/L (3.5-5.1); Protein, Total 7.3 g/dL (6.4-8.2); Sodium Level 135 mmol/L (136-145); Triglycerides 98 mg/dL; Very Low Density Lipoprotein 20 mg/dL (5-40)
[2023-06-03 12:34] LABS: BNP,B-Type NATRIURETIC PEPTIDE 345.2 pg/mL (0-100)
== END | disposition home or self-care (01) ==
PROVIDERS: PCP Internal Medicine; Referring Provider Nurse Practitioner Gerontology; Visit Provider Nurse Practitioner Gerontology
DX: I50.20 Unspecified systolic (congestive) heart failure (principal); N18.4 Chronic kidney disease, stage 4 (severe); R07.89 Other chest pain; E78.5 Hyperlipidemia, unspecified; Z51.81 Encounter for therapeutic drug level monitoring; Z79.899 Other long term (current) drug therapy
CPT/HCPCS: 36415; 80048; 80061; 80076; 83880; 85025

== ENCOUNTER 2023-06-19 18:45 | Inpatient (IN) | payer MEDICARE, MEDICAID, SELFPAY ==
[2019-07-16 09:26] VITALS: BMI 29.5
[2023-06-19 18:47] VITALS: BP 151/78; PULSE 86; RESP 17; TEMP 36.9; O2SAT 92; BMI 24.7
--- NOTE | 2023-06-19 19:13 | EX.ED.DYSGE1 ---
HPI <CHINO Esposito - Last Filed: 06/19/23 21:12> History of Present Illness Chief Complaint: Confusion Narrative Narrative: Patient is a 73-year-old female with history of paroxysmal atrial fibrillation, pacemaker, COPD, heart failure who presents to the emergency department for altered mental status. Per the patient who is alert and orient x 4 on arrival and for the squad was going through a significant stressful episode today. Per the patient, the sister who she lives with was moving the house. The patient was moving things and a person that checks on her once a week noticed that she was upset and called the ambulance. Patient denies any headache, she denies any cough shortness of breath fever chills nausea vomiting. Patient is unsure why she is here. PFSH <CHINO Esposito - Last Filed: 06/19/23 21:12> [facility] Medical History AAA (abdominal aortic aneurysm) without rupture Acute on chronic combined systolic (congestive) and diastolic (congestive) heart failure Acute on chronic diastolic (congestive) heart failure Acute respiratory failure with hypoxia Acute upper GI bleed Anemia Anxiety and depression Arthritis Atherosclerotic heart disease of [place] coronary artery without angina pectoris Atrial fibrillation with RVR Back contusion Bilateral carotid bruits BiPAP (biphasic positive airway pressure) dependence Cancer Cardiology follow-up encounter Carpal tunnel syndrome, bilateral Chest pain Chronic anticoagulation Chronic kidney disease, stage 4 (severe) Claudication in peripheral vascular disease Congestive heart failure (CHF) COPD (chronic obstructive pulmonary disease) COVID-19 (01/01/20) Delirium due to another medical condition Depression Dyspnea on exertion Emphysema of lung Essential (primary) hypertension Former smoker GERD (gastroesophageal reflux disease) High cholesterol History of CHF (congestive heart failure) History of irregular heartbeat History of stress test HLD (hyperlipidemia) Hx of echocardiogram Hypertension Hypokalemia IBS (irritable bowel syndrome) Injury of back Injury of head and neck Kidney disease Melena Multinodular thyroid Nicotine dependence Non-ischemic cardiomyopathy Non-STEMI (non-ST elevated myocardial infarction) (03/19/19) Obesity On home oxygen therapy BELLE (obstructive sleep apnea) Pacemaker PAD (peripheral artery disease) Paroxysmal A-fib Peripheral vascular occlusive disease Persistent atrial fibrillation Pneumonia due to 2019 novel coronavirus (01/01/20) Post-menopausal Rheumatic fever Rheumatoid arthritis Sepsis (01/01/20) Sinus pause Sleep apnea Smoking greater than 30 pack years Tachy-erica syndrome Unstable angina pectoris due to coronary arteriosclerosis Wears dentures Wears glasses Wheezing Home Medications trazodone 150 mg tablet 150 mg PO QHS sleep 11/24/20 [History Last Taken 12/04/21] calcium carbonate 600 mg-vitamin D3 12.5 mcg (500 unit) capsule (Calcium 600 with Vitamin D3) 1 cap PO DAILY supplement 02/22/21 [History Last Taken 12/05/21] ascorbic acid (vitamin C) 1,000 mg tablet (Vitamin C) 1,000 mg PO DAILY supplement 12/05/21 [History Last Taken 12/04/21] lorazepam 1 mg tablet 1 mg PO TID PRN Anxiety 12/05/21 [History Last Taken 12/05/21] vitamin E (dl, acetate) 45 mg (100 unit) capsule 45 mg PO DAILY supplement 12/05/21 [History Last Taken 12/04/21] apixaban 5 mg tablet (Eliquis) 5 mg PO BID blood thinner #180 tabs 12/26/21 [Rx Last Taken Unknown] clopidogrel 75 mg tablet 75 mg PO DAILY antiplatelet #90 tabs 06/12/22 [Rx Last Taken Unknown] metoprolol tartrate 100 mg tablet 100 mg PO BID BP #180 tabs 06/12/22 [Rx Last Taken Unknown] diltiazem HCl 240 mg capsule,24 hr,extended release 240 mg PO DAILY BP #90 caps 06/21/22 [Rx Last Taken Unknown] isosorbide mononitrate 60 mg tablet,extended release 24 hr 60 mg PO DAILY HEART #90 tabs 06/21/22 [Rx Last Taken Unknown] nitroglycerin 0.4 mg sublingual tablet (Nitrostat) 0.4 mg sublingual Q5M PRN Chest Pain #25 tabs 06/27/22 [Rx Last Taken Unknown] duloxetine 60 mg capsule,delayed release 60 mg PO DAILY mental health #30 caps 11/21/22 [Rx Last Taken Unknown] albuterol sulfate 90 mcg/actuation aerosol inhaler 1 - 2 puff inhalation Q4H PRN PRN Dyspnea, wheezing ##1 01/15/23 [Rx Last Taken Unknown] fluticasone 500 mcg-salmeterol 50 mcg/dose blistr powdr for inhalation (Ayo Dalton) 1 inh inhalation BID breathing #60 ea 01/15/23 [Rx Last Taken Unknown] tiotropium bromide 2.5 mcg/actuation mist for inhalation (Spiriva Respimat) 2 puff inhalation DAILY COPD #4 grams 01/15/23 [Rx Last Taken Unknown] duloxetine 30 mg capsule,delayed release 30 mg PO DAILY mental health #30 caps 03/04/23 [Rx Last Taken Unknown] atorvastatin 40 mg tablet 40 mg PO DAILY cholesterol #90 tabs 03/18/23 [Rx Last Taken Unknown] pantoprazole 40 mg tablet,delayed release 40 mg PO DAILY GERD #90 tabs 03/18/23 [Rx Last Taken Unknown] amiodarone 200 mg tablet 100 mg (1/2 x 200 mg) PO DAILY BP #90 tabs 04/22/23 [Rx Last Taken Unknown] levothyroxine 25 mcg tablet (Synthroid) 25 mcg PO DAILY #30 tabs 04/23/23 [Rx Last Taken Unknown] ferrous sulfate 325 mg (65 mg iron) tablet 325 mg PO BID supplement 05/26/23 [History Last Taken Unknown] dicyclomine 10 mg capsule 10 mg PO 4X/DAY #120 caps 05/29/23 [Rx Last Taken Unknown] furosemide 40 mg tablet 40 mg PO BID diuretic 06/04/23 [History Last Taken Unknown] buspirone 10 mg tablet 10 mg PO TID mental health #90 tabs 06/10/23 [Rx Last Taken Unknown] dapagliflozin propanediol 10 mg tablet (Farxiga) See Rx Instructions .Route .COMPLEX #30 TABLETS 06/10/23 [Rx Last Taken Unknown] gabapentin 300 mg capsule See Rx Instructions .Route .COMPLEX #120 caps 06/10/23 [Rx Last Taken Unknown] Allergy/AdvReac Type Severity Reaction Status Date / Time lisinopril Allergy tongue Verified 06/03/23 10:59 swelling Family History (Reviewed 06/03/23 @ 10:59 by Marisel Martin HONING MACHINE OPERATOR SEMIAUTOMATIC, HONING MACHINE OPERATOR SEMIAUTOMATIC-C) Father Heart disease Hypertension Seizures Sister Hypertension Son CVA (cerebral vascular accident) Daughter Cancer stomach Other Family history of hypertension Surgical History Cataract extraction status History of angioplasty of peripheral vessel History of bilateral leg stents History of bunionectomy of right great toe History of cardioversion (07/18/20) History of colonoscopy (06/2018) History of coronary artery stent placement (03/18/19) History of left heart catheterization (11/25/19) History of permanent cardiac pacemaker placement (03/27/20) History of tonsillectomy Hx of APLL Hx of cardiac cath Hx of colonoscopy Hx of hysterectomy S/P AAA repair Status post left foot surgery Social History (Reviewed 06/03/23 @ 10:59 by Marisel Martin HONING MACHINE OPERATOR SEMIAUTOMATIC, HONING MACHINE OPERATOR SEMIAUTOMATIC-C) household members: other details: grandson housing: house 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al status: retired 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: worked in a [employer] Smoking Status: Former smoker quit date: 04/17/20 pack-years: 20 Electronic Cigarette Use: not used how long ago did patient quit smoking: May 2020 alcohol intake: never substance use type: does not use caffeine: No what type of physical activity do you participate in: none do you feel safe at home: Yes ROS <CHINO Esposito - Last Filed: 06/19/23 21:12> ROS ED ROS Narrative Constitutional: Negative for fever, chills, weight loss, weakness Eyes: Negative for vision loss, vision change, double vision ENT: Negative for any sore throat, ear pain, congestion Cardiovascular: Negative for any chest pain, tightness, palpitations Respiratory: Negative for any cough, sputum production, hemoptysis, dyspnea, dyspnea on exertion, orthopnea Gastrointestinal: Negative for any abdominal pain, nausea, vomiting, diarrhea, constipation, blood in stool, blood in vomit : Negative for any urinary frequency, dysuria, retention, blood in urine Muscle skeletal: Negative for any neck pain, back pain Neurological: Negative for any headache, syncope, dizziness Skin: Negative for any rashes, itching, abrasions, lacerations Psychiatric: Negative for any depression, anxiety, stress, suicidal ideation, homicidal ideation. Positive slight anxiety Hematologic: Negative for any excessive bruising, easy bleeding EXAM <CHINO Esposito - Last Filed: 06/19/23 21:12> Physical Exam Narrative Exam Narrative: Vital signs reviewed. Patient does appear to be alert and orient x 4 however when discussing today's events, did get confusing. HEET: Head normocephalic atraumatic, TMs clear bilaterally. Posterior pharynx is clear, moist mucous membranes. Nares clear bilaterally. Neck: Supple with no lymphadenopathy or tenderness. No signs of meningismus. Cardiac: Regular rate and rhythm no murmurs gallops or rubs, equal peripheral pulses bilaterally. Respiratory: Lungs clear to auscultation bilaterally. No chest tenderness. Abdomen: Soft, nontender, nondistended. No abdominal bruit or pulsatile masses. No hepatosplenomegaly Extremities: No peripheral edema, no signs of gross trauma or deformity. Active full range of motion of all extremities. Neuro: Cranial nerves II through XII intact, no focal neurological deficits. NIH stroke scale 0 Skin: Clean dry and intact with no rash, purpura, petechiae, vesicles or pustules. Backs/flank: No CVA tenderness, no midline spinal tenderness, no deformity. Psych: Normal mood and affect. No SI, HI or acute psychosis. Const Vital Signs: 06/19/23 18:47 06/19/23 20:37 06/19/23 21:48 Temperature 98.4 F 96.9 F L 98 F Temperature Source Oral Temporal Pulse Rate 86 86 86 Respiratory Rate 17 18 17 Blood Pressure 151/78 H 144/78 H 125/89 H Blood Pressure Mean 102 100 101 Pulse Ox 92 98 99 Oxygen Delivery Method Room Air Room Air <Dr. Federico Jimenez MD - Last Filed: 06/19/23 21:59> Physical Exam Const Vital Signs: 06/19/23 18:47 06/19/23 20:37 06/19/23 21:48 Temperature 98.4 F 96.9 F L 98 F Temperature Source Oral Temporal Pulse Rate 86 86 86 Respiratory Rate 17 18 17 Blood Pressure 151/78 H 144/78 H 125/89 H Blood Pressure Mean 102 100 101 Pulse Ox 92 98 99 Oxygen Delivery Method Room Air Room Air [facility] <CHINO Esposito - Last Filed: 06/19/23 21:12> [facility] Lab Data Labs: Laboratory Results - last 24 hr 06/19/23 06/19/23 19:30 20:07 WBC 4.5 RBC 3.16 L Hgb 9.2 L Hct 29.1 L MCV 92.1 MCH 29.1 MCHC 31.6 L RDW Std Deviation 48.4 H RDW Coeff of Natalie 14.5 Plt Count 163 MPV 10.0 Immature Gran % (Auto) 0.200 Neut % (Auto) 78.5 H Lymph % (Auto) 11.5 L [place] % (Auto) 7.2 Eos % (Auto) 2.2 Baso % (Auto) 0.4 Absolute Neuts (auto) 3.5 Absolute Lymphs (auto) 0.51 L Nucleated RBC % 0 Sodium 143 Potassium 3.5 Chloride 112 H Carbon Dioxide 25.0 Anion Gap 6 BUN 30 H Creatinine 2.09 H Estim Creat Clear Calc 20.35 Est GFR (MDRD) Af Amer 30 L Est GFR (MDRD) Non-Af 25 L BUN/Creatinine Ratio 14.4 Glucose 86 Calcium 8.5 Magnesium 2.2 Total Bilirubin 0.50 Direct Bilirubin 0.21 AST 32 ALT 27 Alkaline Phosphatase 172 H Troponin I High Sens 18 Total Protein 6.4 Albumin 3.2 Globulin 3.2 Urine Color Yellow Urine Clarity Clear Urine pH 6.0 Ur Specific [place] 1.015 Urine Protein 15 H Urine Glucose (UA) 100 H Urine Ketones Negative Urine Occult Blood Negative Urine Nitrite Negative Urine Bilirubin Negative Urine Urobilinogen Normal Ur Leukocyte Esterase 25 H Urine RBC 0 SEEN Urine WBC 0 SEEN Ur Squamous Epith Cells 0-5 SEEN Urine Bacteria 0 SEEN Urine Mucus 0 SEEN Radiography Diagnostic Testing: Clinical Impression(s) from Imaging Studies Brain CT 06/19/23 19:17 IMPRESSION: There are no acute findings. Chronic involutional changes of the brain. Electronically Signed: Robb Prabhakar MD at 20:03 EDT , Chest X-Ray 06/19/23 19:46 IMPRESSION: Right sided pneumonia. Electronically Signed: Robb Prabhakar MD at 20:06 EDT , Treatment and Re-Evaluation :: Differential diagnosis includes however is not limited to: ACS, NE, stroke, electrolyte normality, situational stress Patient is in no obvious respiratory distress vital signs are stable, patient is alert and orient x 3 however patient does become confused when talking about the situation tonight. Patient does appear to be alert however when discussing what happened today, it is difficult to follow. Patient has no neurological focal deficit. Patient will receive a full workup including CT scan, chest x-ray as well as basic labs EKG. Patient will be reevaluated I spoke with the patient's helper that sees her once to twice a week to the [facility], he states that over the last 6 months, she has been having intermittent confusion episodes where she is unsure of her surroundings. The student that has been helping her has been her caregiver for 3 years. He states that she is getting worse. I spoke with the patient's sister, she also agrees that the patient is getting worse and may not be able to return home. Patient's chest x-ray shows concerning for right-sided pneumonia. Patient CT scan of the brain was unremarkable. Patient's laboratory values showed slight anemia with a hemoglobin 9.2, chemistry showed some renal sufficiency with a creatinine of 2.09, June 03, 2023 was 3.46, this is an improvement. Patient's urinalysis was negative for any infection. At this time secondary to the patient's confusion, I will speak with the hospitalist regarding admission. Patient be admitted to the hospital for metabolic encephalopathy, pneumonia. Patient will also see social work while she is here. Hospitals be down to evaluate the patient. <Dr. Federico Jimenez MD - Last Filed: 06/19/23 21:59> [facility] Narrative Medical decision making narrative: I have personally performed a face to face assessment of the patient and have reviewed the RUEL Note. I performed a substantive portion of the visit including all aspects of the following. My duncan findings include: History is chronic confusion but worse today since patient was carrying things out of her apartment, saying that she was moving my stuff out of the house that my sister lives in, I used to live there but they are moving the house and having a disconnect electric, plumbing, and everything to did get out of the ground and move it. Family states this is absolutely untrue, there is no house, she lives with her 15-year-old grandson in an apartment, and is getting more confused over the past 6 months, and now delusional and acting on them and they are concerned for her safety. Exam is normal physical exam except for irregularly irregular heart rhythm without tachycardia. Normal speech, seems somewhat delusional with regards to the story above which she continues to discuss. Otherwise oriented to situation, date, place, person. Medical Decison Making CT of the head, labs, screen for infections, metabolic disturbance, and suspect he may need to be admitted for placement. Other additions or changes: [None] Lab Data Labs: Laboratory Results - last 24 hr 06/19/23 06/19/23 19:30 20:07 WBC 4.5 RBC 3.16 L Hgb 9.2 L Hct 29.1 L MCV 92.1 MCH 29.1 MCHC 31.6 L RDW Std Deviation 48.4 H RDW Coeff of [place] 14.5 Plt Count 163 MPV 10.0 Immature Gran % (Auto) 0.200 Neut % (Auto) 78.5 H Lymph % (Auto) 11.5 L [place] % (Auto) 7.2 Eos % (Auto) 2.2 Baso % (Auto) 0.4 Absolute Neuts (auto) 3.5 Absolute Lymphs (auto) 0.51 L Nucleated RBC % 0 Sodium 143 Potassium 3.5 Chloride 112 H Carbon Dioxide 25.0 Anion Gap 6 BUN 30 H Creatinine 2.09 H Estim Creat Clear Calc 20.35 Est GFR (MDRD) Af Amer 30 L Est GFR (MDRD) Non-Af 25 L BUN/Creatinine Ratio 14.4 Glucose 86 Calcium 8.5 Magnesium 2.2 Total Bilirubin 0.50 Direct Bilirubin 0.21 AST 32 ALT 27 Alkaline Phosphatase 172 H Troponin I High Sens 18 Total Protein 6.4 Albumin 3.2 Globulin 3.2 Urine Color Yellow Urine Clarity Clear Urine pH 6.0 Ur Specific [place] 1.015 Urine Protein 15 H Urine Glucose (UA) 100 H Urine Ketones Negative Urine Occult Blood Negative Urine Nitrite Negative Urine Bilirubin Negative Urine Urobilinogen Normal Ur Leukocyte Esterase 25 H Urine RBC 0 SEEN Urine WBC 0 SEEN Ur Squamous Epith Cells 0-5 SEEN Urine Bacteria 0 SEEN Urine Mucus 0 SEEN Radiography Diagnostic Testing: Clinical Impression(s) from Imaging Studies Brain CT 06/19/23 19:17 IMPRESSION: There are no acute findings. Chronic involutional changes of the brain. Electronically Signed: Robb Prabhakar MD at 20:03 EDT , Chest X-Ray 06/19/23 19:46 IMPRESSION: Right sided pneumonia. Electronically Signed: Robb Prabhakar MD at 20:06 EDT , Discharge Plan Dx/Rx/DC Orders Clinical Impression: Acute metabolic encephalopathy, Pneumonia Disposition Disposition: Acute Care [facility]
--- NOTE | 2023-06-19 19:17 | CT_ITS ---
STUDY: CT BRAIN WITHOUT CONTRAST REASON FOR EXAM: Female, 73 years old. confusion Individualized dose optimization techniques were used for this CT. TECHNIQUE: Transaxial CT imaging of the brain was performed without administration of intravenous contrast material. COMPARISON: 05.18.23 FINDINGS: There are calcifications around the carotid artery. These are noted in the cavernous carotid arteries. Normal calvarium. Normal soft tissues. There is mild cerebral atrophy with widening of the extra-axial spaces and ventricular dilatation. There are areas of decreased attenuation within the white matter tracts of the supratentorial brain, consistent with microvascular disease changes. Normal basal ganglia and thalami. Normal brainstem. There is mild cerebellar atrophy. There is no intracranial hemorrhage. There are no findings of an acute ischemic infarction. There is a hypodense region which is likely an arachnoid cyst. This is noted between the cerebellar hemisphere. Normal visualized paranasal sinuses. ASPECTS Score for Acute Strokes: 10/ CT/Brain/Head without Contrast IMPRESSION: There are no acute findings. Chronic involutional changes of the brain. Electronically Signed: Robb Prabhakar MD at 20:03 EDT ,
[2023-06-19 19:45] LABS: Absolute Lymphocyte Count 0.51 X10^3/uL (0.83-4.51); Absolute Neutrophil Count 3.5 X10^3/uL (2.0-7.7); Basophil# 0.02 X10^3/uL; Basophil% 0.4 % (0-1); Eosinophils% 2.2 % (0-5); Hematocrit 29.1 % (37-47); Hemoglobin 9.2 g/dL (12.0-15.0); Lymphocyte # 0.51 X10^3/ul (0.83-4.51); Lymphocyte % 11.5 % (19-41); Mean Corp Hgb Conc 31.6 g/dL (32-36); Mean Corpuscular Hgb 29.1 pg (27.0-32.0); Mean Corpuscular Volume 92.1 fL (81-99); Monocyte# 0.32 X10^3/uL; Monocyte% 7.2 % (0-10); NRBC Flagged by Analyzer 0 % (0-5); Neutrophil # 3.49 X10^3/uL (2.7-7.7); Neutrophil % 78.5 % (47-70); POSITIVE DIFFERENTIAL YES; Platelet Count 163 K/mm3 (150-450); RBC Distribution Width CV 14.5 % (11.6-14.6); RBC Distribution Width SD 48.4 fl (35.1-43.9); Red Blood Count 3.16 M/mm3 (4.2-5.4); White Blood Count 4.5 K/mm3 (4.4-11.0)
--- NOTE | 2023-06-19 19:46 | RAD_ITS ---
STUDY: XR Chest 1 View 06/19/2023 7:46 PM REASON FOR EXAM: Female, 73 years old. cough COMPARISON: 05/15/2023 TECHNIQUE: XR Chest 1 View FINDINGS: There is no demonstrated pleural abnormality. There is a left sided pacemaker batterypack. Right lower lobe infiltrate. Enlarged heart size. Normal mediastinum. Normal artis. Prominent appearing increased interstitial lung markings. Normal visualized pulmonary arteries. There is atherosclerotic calcification of the aortic arch with tortuosity. There are diffuse degenerative changes of the visualized thoracic spine. There is degenerative osteoarthritis of the bilateral shoulders. There are no acute findings of the upper abdomen. RAD/Chest 1 View (Portable) IMPRESSION: Right sided pneumonia. Electronically Signed: Robb Prabhakar MD at 20:06 EDT ,
[2023-06-19 20:05] LABS: Anion Gap 6 (5-15); BUN 30 mg/dL (7-18); BUN/Creat Ratio 14.4 RATIO (10-20); Calcium,Total 8.5 mg/dL (8.5-10.1); Chloride 112 mmol/L (98-107); Creatinine, Serum 2.09 mg/dL (0.55-1.02); EST Glomerular Filtration Rate 25 mL/min (>60); Est Glom Filt Rate - Afr Amer 30 mL/min (>60); Estimated Creatinine Clearance 20.35 ml/min; Glucose 86 mg/dL (74-106); Potassium 3.5 mmol/L (3.5-5.1); Sodium Level 143 mmol/L (136-145); Troponin-I HS 18 pg/mL (3.0-54.0)
[2023-06-19 20:14] LABS: Bacteria 0 SEEN /hpf (None Seen); Mucous, Urine 0 SEEN /hpf (<or=2+); Red Blood Cells-Urine 0 SEEN /hpf (0-5); White Blood Cells 0 SEEN /hpf (0-5)
[2023-06-19 20:19] LABS: Color, Urine Yellow (Yellow); Glucose, Dipstick 100 mg/dl (Normal); Ketone-Dipstick Negative (Negative); Leukocyte Esterase-Dipstick 25 /ul (Negative); Nitrite-Dipstick Negative (Negative); Occult Blood-Urine Negative /ul (Negative); Protein-Dipstick 15 mg/dl (Negative); Specific Gravity, Urine 1.015 (1.002-1.030); Urine Bilirubin Dipstick Negative (Negative); Urine Clarity Clear (Clear); Urine Urobilinogen Normal (Normal)
[2023-06-19 20:37] VITALS: BP 144/78; PULSE 86; RESP 18; TEMP 36.1; O2SAT 98
--- NOTE | 2023-06-19 20:52 | ED.RN ---
pt and family asking about labs ordered for tomorrow by PCP, was going to call lab to inquire but pt is going to be admitted to [facility] per EVENTS MANAGER.
[2023-06-19 20:57] LABS: Squamous Epithelial Cells - UA 0-5 SEEN /hpf (5-10)
--- NOTE | 2023-06-19 21:06 | PCM.HP.STD ---
HPI - General General Date of Admission: 06/19/23 Date of Service: 06/19/23 Chief Complaint: Confusion. HPI Narrative The patient is a 73 y/o F w/ PMHx: Hypothyroidism, CKD stage IV, HTN, HLD, HFrEF, AAA without rupture s/p repair, Chronic anemia/AOCD, GERD w/ Hx GI bleed, Anxiety and Depression, PAF/Flutter, BELLE on BIPAP, COPD, Former tobacco use, CAD s/p PCI, PAD/PVOD s/p peripheral angioplasty, Rheumatoid Arthritis, Tachy-Gil syndrome s/p pacemaker placement who presents to the [facility] ED on 06/19/23 with history of ongoing several weeks to months of increased forgetfulness and concerns per family of possible underlying dementia as patient can give you current date, month and several recent appropriate data points but often times seems not to be able to perform her appropriate ADLs however this is increased recently and family noted that she day prior to presentation thought she was moving out of the house and was packing her furniture which was not the case in addition to recently found outside sleeping prompting family to bring her in for evaluation. Patient denies any recent upper respiratory type symptoms, cough, dyspnea, fever or chills but family is concerned that she is not the best historian. From review of recent outpatient PCP evaluation patient has been missing visits with cardiology, psychiatry among other specialists and has not been taking her medications nor using her BiPAP at night. From discussion with patient and family it does not appear that she is resistant but honestly seems unable to safely care for herself and do these things appropriately. Workup in the ED included T98.4, heart rate 86, BP 151/70, respiratory rate 17, 92% on room air, CBC with WBC 4.5, hemoglobin 9.2, MCV 92.1, platelet 163 with lymphopenia, BMP with chloride 112, BUN/creatinine 30/2.09 otherwise not marked appearing, troponin 18, urinalysis with protein 15, glucose 100, leukocyte Estrace 25 otherwise no marked findings, chest x-ray with evidence of a right-sided pneumonia with a right lower lobe infiltrate, EKG paced, CT of the brain with chronic involutional changes with no acute intracranial findings. In the ED patient administered IV Rocephin and IV azithromycin to be cautious. [facility] Medical History (Updated 06/19/23 @ 22:[address] Fernanda Puri MD) AAA (abdominal aortic aneurysm) without rupture Anemia Anxiety and depression Arthritis Atherosclerotic heart disease of [place] coronary artery without angina pectoris Back contusion Bilateral carotid bruits Carpal tunnel syndrome, bilateral Chronic anticoagulation CKD (chronic kidney disease), stage IV Claudication in peripheral vascular disease COPD (chronic obstructive pulmonary disease) COVID-19 (01/01/20) Emphysema of lung Essential (primary) hypertension Former tobacco use GERD (gastroesophageal reflux disease) HFrEF (heart failure with reduced ejection fraction) High cholesterol History of fall History of ovarian cancer HLD (hyperlipidemia) Hypertension IBS (irritable bowel syndrome) Multinodular thyroid Non-ischemic cardiomyopathy Non-STEMI (non-ST elevated myocardial infarction) (03/19/19) Obesity BELLE treated with BiPAP Pacemaker PAD (peripheral artery disease) Peripheral vascular occlusive disease Persistent atrial fibrillation Post-menopausal Rheumatic fever Rheumatoid arthritis Sinus pause Smoking greater than 30 pack years Tachy-gil syndrome Unstable angina pectoris due to coronary arteriosclerosis Wears dentures Wears glasses Home Medications trazodone 150 mg tablet 150 mg PO QHS sleep 11/24/20 [History Last Taken 12/04/21] calcium carbonate 600 mg-vitamin D3 12.5 mcg (500 unit) capsule (Calcium 600 with Vitamin D3) 1 cap PO DAILY supplement 02/22/21 [History Last Taken 12/05/21] ascorbic acid (vitamin C) 1,000 mg tablet (Vitamin C) 1,000 mg PO DAILY supplement 12/05/21 [History Last Taken 12/04/21] lorazepam 1 mg tablet 1 mg PO TID PRN Anxiety 12/05/21 [History Last Taken 12/05/21] vitamin E (dl, acetate) 45 mg (100 unit) capsule 45 mg PO DAILY supplement 12/05/21 [History Last Taken 12/04/21] apixaban 5 mg tablet (Eliquis) 5 mg PO BID blood thinner #180 tabs 12/26/21 [Rx Last Taken Unknown] clopidogrel 75 mg tablet 75 mg PO DAILY antiplatelet #90 tabs 06/12/22 [Rx Last Taken Unknown] metoprolol tartrate 100 mg tablet 100 mg PO BID BP #180 tabs 06/12/22 [Rx Last Taken Unknown] diltiazem HCl 240 mg capsule,24 hr,extended release 240 mg PO DAILY BP #90 caps 06/21/22 [Rx Last Taken Unknown] isosorbide mononitrate 60 mg tablet,extended release 24 hr 60 mg PO DAILY HEART #90 tabs 06/21/22 [Rx Last Taken Unknown] nitroglycerin 0.4 mg sublingual tablet (Nitrostat) 0.4 mg sublingual Q5M PRN Chest Pain #25 tabs 06/27/22 [Rx Last Taken Unknown] duloxetine 60 mg capsule,delayed release 60 mg PO DAILY mental health #30 caps 11/21/22 [Rx Last Taken Unknown] albuterol sulfate 90 mcg/actuation aerosol inhaler 1 - 2 puff inhalation Q4H PRN PRN Dyspnea, wheezing ##1 01/15/23 [Rx Last Taken Unknown] fluticasone 500 mcg-salmeterol 50 mcg/dose blistr powdr for inhalation (Wixela Inhub) 1 inh inhalation BID breathing #60 ea 01/15/23 [Rx Last Taken Unknown] tiotropium bromide 2.5 mcg/actuation mist for inhalation (Spiriva Respimat) 2 puff inhalation DAILY COPD #4 grams 01/15/23 [Rx Last Taken Unknown] duloxetine 30 mg capsule,delayed release 30 mg PO DAILY mental health #30 caps 03/04/23 [Rx Last Taken Unknown] atorvastatin 40 mg tablet 40 mg PO DAILY cholesterol #90 tabs 03/18/23 [Rx Last Taken Unknown] pantoprazole 40 mg tablet,delayed release 40 mg PO DAILY GERD #90 tabs 03/18/23 [Rx Last Taken Unknown] amiodarone 200 mg tablet 100 mg (1/2 x 200 mg) PO DAILY BP #90 tabs 04/22/23 [Rx Last Taken Unknown] levothyroxine 25 mcg tablet (Synthroid) 25 mcg PO DAILY #30 tabs 04/23/23 [Rx Last Taken Unknown] ferrous sulfate 325 mg (65 mg iron) tablet 325 mg PO BID supplement 05/26/23 [History Last Taken Unknown] dicyclomine 10 mg capsule 10 mg PO 4X/DAY #120 caps 05/29/23 [Rx Last Taken Unknown] furosemide 40 mg tablet 40 mg PO BID diuretic 06/04/23 [History Last Taken Unknown] buspirone 10 mg tablet 10 mg PO TID mental health #90 tabs 06/10/23 [Rx Last Taken Unknown] dapagliflozin propanediol 10 mg tablet (Premga) See Rx Instructions .Route .COMPLEX #30 TABLETS 06/10/23 [Rx Last Taken Unknown] gabapentin 300 mg capsule See Rx Instructions .Route .COMPLEX #120 caps 06/10/23 [Rx Last Taken Unknown] Allergy/AdvReac Type Severity Reaction Status Date / Time lisinopril Allergy tongue Verified 06/03/23 10:59 swelling Family History Father Heart disease Hypertension Seizures Sister Hypertension Son CVA (cerebral vascular accident) Daughter Cancer stomach Other Family history of hypertension Surgical History Cataract extraction status History of angioplasty of peripheral vessel History of bilateral leg stents History of bunionectomy of right great toe History of cardioversion (07/18/20) History of colonoscopy (06/2018) History of coronary artery stent placement (03/18/19) History of left heart catheterization (11/25/19) History of permanent cardiac pacemaker placement (03/27/20) History of tonsillectomy Hx of APLL Hx of cardiac cath Hx of colonoscopy Hx of hysterectomy S/P AAA repair Status post left foot surgery Social History household members: other details: grandson housing: house 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al status: retired 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 Admission Review of Systems: CONSTITUTIONAL: No weight loss, fever, chills, + weakness or fatigue. HEENT: Eyes: No visual loss, blurred vision, double vision or yellow sclerae. Ears, Nose, Throat: No hearing loss, sneezing, congestion, runny nose or sore throat. SKIN: No rash or itching, lesions, wounds. CARDIOVASCULAR: No chest pain, chest pressure or chest discomfort, palpitations, edema, orthopnea, syncopal events. RESPIRATORY: No shortness of breath, cough or sputum, wheezing, hemoptysis. GASTROINTESTINAL: No anorexia, nausea, vomiting or diarrhea, abdominal pain, melena, BRBPR. GENITOURINARY: No dysuria, frequency, urgency or retention. NEUROLOGICAL: + Confusion. No headache, dizziness, syncope, paralysis, ataxia, numbness or tingling in the extremities, focal weakness, change in bowel or bladder control, seizure. MUSCULOSKELETAL: + muscle, back pain, joint pain or stiffness. HEMATOLOGIC: + Chronic anemia, easy bleeding/bruising. LYMPHATICS: No enlarged nodes. No history of splenectomy. PSYCHIATRIC: + History of anxiety and depression. ENDOCRINOLOGIC: No reports of sweating, cold or heat intolerance. No polyuria or polydipsia. ALLERGIES: + History of angioedema. Vital Signs Vital Signs Vital Signs: 06/19/23 18:47 06/19/23 20:37 Temperature 98.4 F 96.9 F L Temperature Source Oral Temporal Pulse Rate 86 86 Respiratory Rate 17 18 Blood Pressure 151/78 H 144/78 H Blood Pressure Mean 102 100 Pulse Ox 92 98 Oxygen Delivery Method Room Air Room Air Weight Weight: 135 lb 2.294 oz Body Mass Index (BMI) 24.7 Physical Exam Narrative Physical Examination: General: Awake, alert, oriented to self, place, family present, year, remains cooperative, seated upright in the ED bed, fatigued but otherwise no acute distress. Skin: Normal color, normal turgor, no icterus, no cyanosis except occasional very staged ecchymoses including on the back and she does report running into things and fall history. HEENT: AT/NC, EOMI, PERRLA, mildly dry MM, no carotid bruits or JVD noted. Lungs: Diminished, greater bases, right greater than left, moderate effort, no evidence of any distress, no rales, ronchi or wheezing. Heart: Paced; no gallop, rub audible. Abdomen: Soft, NTTP, ND, mildly hyperactive BS, no specifically appreciated HSM. Extremities: No cyanosis, no clubbing, mild peripheral ankle edema. Neurological: Patient awake, alert, oriented as noted, cognitive function as noted with underlying concern for possible dementia however given acute presentation and worsening status certainly could be compounded, pupils equally reactive to light and accommodation, cranial nerves grossly normal, moving all 4 extremities, no focal deficits, strength mildly to moderately globally decreased. Psychiatric: Affect appears mildly flat, fatigued, no acute evidence of depressive or anxiety feelings but does have underlying history and suspect this may be involved as well. Results Lab / Micro Data 06/19/23 19:30 06/19/23 19:30 Labs: Laboratory Results - last 24 hr 06/19/23 19:30: WBC 4.5, RBC 3.16 L, Hgb 9.2 L, Hct 29.1 L, MCV 92.1, MCH 29.1, MCHC 31.6 L, RDW Std Deviation 48.4 H, RDW Coeff of Natalie 14.5, Plt Count 163, MPV 10.0, Immature Gran % (Auto) 0.200, Neut % (Auto) 78.5 H, Lymph % (Auto) 11.5 L, [place] % (Auto) 7.2, Eos % (Auto) 2.2, Baso % (Auto) 0.4, Absolute Neuts (auto) 3.5, Absolute Lymphs (auto) 0.51 L, Nucleated RBC % 0, Sodium 143, Potassium 3.5, Chloride 112 H, Carbon Dioxide 25.0, Anion Gap 6, BUN 30 H, Creatinine 2.09 H, Estim Creat Clear Calc 20.35, Est GFR (MDRD) Af Amer 30 L, Est GFR (MDRD) Non-Af 25 L, BUN/Creatinine Ratio 14.4, Glucose 86, Calcium 8.5, Troponin I High Sens 18 06/19/23 20:07: Urine Color Yellow, Urine Clarity Clear, Urine pH 6.0, Ur Specific [place] 1.015, Urine Protein 15 H, Urine Glucose (UA) 100 H, Urine Ketones Negative, Urine Occult Blood Negative, Urine Nitrite Negative, Urine Bilirubin Negative, Urine Urobilinogen Normal, Ur Leukocyte Esterase 25 H, Urine RBC 0 SEEN, Urine WBC 0 SEEN, Ur Squamous Epith Cells 0-5 SEEN, Urine Bacteria 0 SEEN, Urine Mucus 0 SEEN Imaging Radiology Impression Brain CT 06/19/23 19:17 IMPRESSION: There are no acute findings. Chronic involutional changes of the brain. Electronically Signed: Robb Prabhakar MD at 20:03 EDT , Chest X-Ray 06/19/23 19:46 IMPRESSION: Right sided pneumonia. Electronically Signed: Robb Prabhakar MD at 20:06 EDT Reading Location ID and State: [facility] / [place] , Service support , Assessment & Plan Assessment/Plan (1) Acute metabolic encephalopathy: (2) Pneumonia: PLAN: Plan The patient is a 73 y/o F w/ PMHx: Hypothyroidism, CKD stage IV, HTN, HLD, HFrEF, AAA without rupture s/p repair, Chronic anemia/AOCD, GERD w/ Hx GI bleed, Anxiety and Depression, PAF/Flutter, BELLE on BIPAP, COPD, Former tobacco use, CAD s/p PCI, PAD/PVOD s/p peripheral angioplasty, Rheumatoid Arthritis, Tachy-Gil syndrome s/p pacemaker placement who presents to the [facility] ED on 06/19/23 with history of ongoing several weeks to months of increased forgetfulness and concerns per family of possible underlying dementia as patient can give you current date, month and several recent appropriate data points but often times seems not to be able to perform her appropriate ADLs however this is increased recently and family noted that she day prior to presentation thought she was moving out of the house and was packing her furniture which was not the case in addition to recently found outside sleeping prompting family to bring her in for evaluation. #1. Acute Encephalopathy, suspect multifactorial with acute infectious encephalopathy secondary to right lower lobe possible pneumonia in addition to suspected underlying ongoing process possibly a component of underlying dementia but requires further outpatient workup and evaluation in the nonacute setting as well as polypharmacy contributing to adult failure to thrive: Will admit to MS, continue ATC budesonide, PRN albuterol, maintained on IV Rocephin and Azithromycin pending further evaluation for possible pneumonia as some concern this could be scarring as does have some similar findings previously and not supremely symptomatic but given increased confusion would still like to rule this out prior to de-escalation, HOB, IS parameters w/ pending sputum cultures, full respiratory viral panel, procalcitonin and urine antigens. Patient does have component of polypharmacy and her primary care Dr. Ayoub is working on this from review of her most recent evaluation 06/18/2023. PT/OT/case management for discharge planning. #2. CAD: S/p PCI, continue patient Plavix, apixaban, statin, metoprolol, not on ARTURO inhibitor/ARB with noted allergy. #3. PAD/PVOD: s/p peripheral angioplasty history as well as bilateral SFA stents, history of occluded right SFA and angioplasty of the in-stent stenosis of the left SFA, encourage continued outpatient follow-up with vascular surgery as previously arranged #4. Chronic COPD: From most recent PCP note patient had stopped using her inhalers however again this seems more her inability eat to make appropriate decisions, we will temporarily hold home inhalers in the interim maintain on ATC budesonide therapy, PRN albuterol, HOB, IS parameters. #5. Chronic normocytic anemia/AOCD/iron deficiency anemia: Admission hemoglobin 9.2, MCV 92.1, baseline hemoglobin recently ranging 9-11 with most recent prior to 06/03/2023 hemoglobin 11.3, previous to this 05/17/2023 hemoglobin 9.9, will continue to trend as does seem to vacillate. Continue iron supplementation orally. #6. Chronic Kidney Disease Stage IV: Admission BUN/Cr 30/2.09, GFR 25, baseline renal function has seemed to vacillate but appears primarily more recently 1.8-2.9 however increased 06/03/2023 creatinine 3.46, improved upon current presentation more near previous baseline, repeat BMP in AM. #7. BELLE: BiPAP 9/5 cmH2O with residual AHI of 4.8. Patient had not been using her BiPAP but from discussion does not seem specifically resistant to using it and strongly encouraged her to use it while she is here to which she seemed amenable. #8. HFrEF: Will judiciously hydrate as needed given history, continue patient home apixaban, Plavix, statin, metoprolol, Lasix, not on ARTURO inhibitor/ARB given allergy history. 05/26/2023 echocardiogram with normal LV size, EF 40%, mild to moderate global LV systolic dysfunction, mild TVI and when compared to previous study the LV systolic function was noted to have improved. #9. AAA without rupture: s/p repair, continue apixaban, Plavix, statin, hypertensive regimen, encourage continued outpatient follow-up as previously arranged. #10. Anxiety and Depression: We will continue patient home duloxetine regimen, will temporally hold patient sedated lorazepam as well as BuSpar but restart once acute infectious presentation is treated to be cautious to avoid withdrawal. Will temporally hold nightly trazodone also to avoid encephalopathy worsening. #11. Hypertension: Continue home regimen including metoprolol, isosorbide, Lasix, diltiazem, PRN hydralazine. #12. Hyperlipidemia: Will continue patient on statin therapy. #13. PAF/Flutter: Will continue patient home apixaban, amiodarone, diltiazem and metoprolol home regimen. #14. Rheumatoid Arthritis: Per current medication list does not appear to be on any chronic regimen, encourage continued outpatient follow-up with rheumatology as previously arranged. #15. Tachy-Gil syndrome: S/p pacemaker placement, encourage continued follow-up with cardiology as previously arranged. #16. Former tobacco use: Encourage continued tobacco cessation. #17. GERD w/ Hx GI bleed: We will continue patient on PPI. #18. Hypothyroidism: We will continue patient on levothyroxine regimen, TSH and free T4 requested. #19. DVT prophylaxis: We will continue patient home apixaban regimen. #20. CODE status: Patient HCPOA and living will she does not believe her in place but her brother and sister are present and following lengthy discussion with family her son Néstor is her medical decision-maker. Discussed CODE status at length including difference between FULL code, DNR-CCA and DNR-CC status. Following discussions about the differences in these status, requested DNR-CCA, no intubation status. Advanced Care Planning Face to Face Time: 16 minutes. Charges/Coding Multi Select Codes Visit Charges Visit Charges: 88291 Init Hosp L[facility] Hospitalists' Procedures Procedures: 36101 Advncd Care Plan 30 Min
[2023-06-19 21:35] LABS: AST(SGOT) 32 U/L (15-37); Alanine Aminotransfer ALT/SGPT 27 U/L (13-56); Albumin, Serum 3.2 g/dL (3.2-5.0); Alkaline Phosphatase 172 U/L (45-117); Bilirubin, Direct 0.21 mg/dL (0.00-0.30); Globulin 3.2 g/dL (2.2-4.2); Magnesium 2.2 mg/dL (1.6-2.6); Protein, Total 6.4 g/dL (6.4-8.2)
[2023-06-19] MEDS: Ceftriaxone 1 GM/50 ML BAG IV (21:47)
[2023-06-19 21:48] VITALS: BP 125/89; PULSE 86; RESP 17; TEMP 36.6; O2SAT 99
[2023-06-19 22:27] LABS: Procalcitonin 0.09 ng/mL (0.00-0.09)
[2023-06-19] MEDS: Azithromycin 500 MG in Dextrose 5%-Water (250mL Bag) 250 ML 250 MG IV (22:33)
[2023-06-19 22:49] VITALS: BMI 24.6
[2023-06-19 23:02] VITALS: BP 122/62; PULSE 89; RESP 16; TEMP 36.9; O2SAT 99
[2023-06-19] MEDS: Mag Hydrox/Al Hydrox/Simeth 30 ML UDC PO (23:15)
[2023-06-20] VITALS (10 sets, daily range): BP systolic 93–142; BP diastolic 47–96; PULSE 70–96; RESP 16–18; TEMP 36.7–37.4; O2SAT 92–98; BMI 24.7
[2023-06-20] MEDS: 0.9% Saline Lock 10 ML Syringe IV ×5 (00:05→23:01)
[2023-06-20] MEDS: MELATONIN 3 MG TABLET PO ×2 (00:05→21:24)
--- NOTE | 2023-06-20 00:47 | CPS ---
Pt refuses PAP at this time
[2023-06-20] MEDS: Levothyroxine 25 MCG TABLET PO (04:40)
--- NOTE | 2023-06-20 07:32 | PCM.PN.HOSP ---
Reason for Visit Reason for Visit: Diagnoses Metabolic encephalopathy (06/19/23) Pneumonia, unspecified organism (06/19/23) Subjective Subjective Patient is a 73-year-old lady admitted with altered mental status. Chest x-ray obtained did show right-sided pneumonia. Patient was also found to have positive leukocyte esterase in her urine. Admitted to regular nursing floor for further management Objective Data Objective Data Vital Signs: Vital Signs Temp Pulse Resp BP Pulse Ox O2 Del Method 98.9 F 70 16 142/70 H 95 Room Air 06/20/23 04:35 06/20/23 04:35 06/20/23 04:35 06/20/23 04:35 06/20/23 04:35 06/20/23 04:48 Oxygen Delivery Method Room Air Weight: 61.099 kg Body Mass Index (BMI) 24.7 Intake & Output: Intake and Output for Last 24 Hours 06/18/23 06/19/23 06/20/23 23:59 23:59 23:59 Intake Total 305 / 305 500 / 500 Balance 305 / 305 500 / 500 Lab / Micro Data 06/20/23 07:00 06/20/23 07:00 Labs: Laboratory Results - last 24 hr 06/19/23 19:30: WBC 4.5, RBC 3.16 L, Hgb 9.2 L, Hct 29.1 L, MCV 92.1, MCH 29.1, MCHC 31.6 L, RDW Std Deviation 48.4 H, RDW Coeff of Natalie 14.5, Plt Count 163, MPV 10.0, Immature Gran % (Auto) 0.200, Neut % (Auto) 78.5 H, Lymph % (Auto) 11.5 L, [place] % (Auto) 7.2, Eos % (Auto) 2.2, Baso % (Auto) 0.4, Absolute Neuts (auto) 3.5, Absolute Lymphs (auto) 0.51 L, Nucleated RBC % 0, Sodium 143, Potassium 3.5, Chloride 112 H, Carbon Dioxide 25.0, Anion Gap 6, BUN 30 H, Creatinine 2.09 H, Estim Creat Clear Calc 20.35, Est GFR (MDRD) Af Amer 30 L, Est GFR (MDRD) Non-Af 25 L, BUN/Creatinine Ratio 14.4, Glucose 86, Calcium 8.5, Magnesium 2.2, Total Bilirubin 0.50, Direct Bilirubin 0.21, AST 32, ALT 27, Alkaline Phosphatase 172 H, Troponin I High Sens 18, Total Protein 6.4, Albumin 3.2, Globulin 3.2 06/19/23 20:07: Urine Color Yellow, Urine Clarity Clear, Urine pH 6.0, Ur Specific [place] 1.015, Urine Protein 15 H, Urine Glucose (UA) 100 H, Urine Ketones Negative, Urine Occult Blood Negative, Urine Nitrite Negative, Urine Bilirubin Negative, Urine Urobilinogen Normal, Ur Leukocyte Esterase 25 H, Urine RBC 0 SEEN, Urine WBC 0 SEEN, Ur Squamous Epith Cells 0-5 SEEN, Urine Bacteria 0 SEEN, Urine Mucus 0 SEEN 06/19/23 21:45: Procalcitonin 0.09 Micro: Microbiology 06/19/23 23:25 Mucosa - Nasopharyngeal Respiratory Panel (PCR) - Final 06/19/23 20:07 Urine, Random Legionella Antigen - Final 06/19/23 20:07 Urine, Random Streptococcus pneumoniae Antigen (M - Final 06/19/23 20:50 Mucosa - Nose SARS-CoV-2, Influenza & RSV (PCR) - Final Radiography Diagnostic Testing: Radiology Impression Brain CT 06/19/23 19:17 IMPRESSION: There are no acute findings. Chronic involutional changes of the brain. Electronically Signed: Robb Prabhakar MD at 20:03 EDT , Chest X-Ray 06/19/23 19:46 IMPRESSION: Right sided pneumonia. Electronically Signed: Robb Prabhakar MD at 20:06 EDT , Physical Exam Narrative GENERAL: cooperative HEENT: Atraumatic; normocephalic EYES; Anicteric, Normal Conjunctiva NECK; supple, normal thyroid, RESPIRATORY: Diminished to auscultation CARDIOVASCULAR: Regular S1 S2, GI: soft, normoactive bowel sounds, : No Renal angle tenderness; EXTREMITIES: No edema, no clubbing, MUSCULOSKELETAL: no muscle wasting NEURO: Awake; no lateralizing signs. SKIN: No Rash PSYCH; Flat affect Assessment & Plan Assessment/Plan (1) Acute metabolic encephalopathy: (2) Pneumonia: PLAN: Plan Patient is a 73-year-old lady admitted with altered mental status. Chest x-ray obtained did show right-sided pneumonia. Patient was also found to have positive leukocyte esterase in her urine. Admitted to regular nursing floor for further management 1. Acute metabolic encephalopathy ? Secondary to infectious etiology from pneumonia as well as possible cystitis admitted to regular nursing floor with treatment of the underlying condition 2. Pneumonia - Suspected to be secondary to streptococcal pneumonia, Blood and sputum cultures sent. Patient placed on Rocephin and Zithromax and placed on oxygen titrated to keep Pulse Ox greater than 90 3. Acute cystitis ? Patient is on ceftriaxone 4. Hypothyroidism - Patient is on levothyroxine home dose continued 5. Dyslipidemia -Patient is on statin therapy, continued at home dose 6. Chronic kidney disease stage IIIb ? Kidney function at baseline. Creatinine actually much better than recent values 7. Obstructive sleep apnea ? Patient is on BiPAP at night 8. Anemia - Secondary to chronic disorder monitoring H&H and transfuse if patient becomes symptomatic or hemoglobin falls below 7 9. Peripheral arterial disease ?Patient is on antiplatelet 10. Paroxysmal atrial fibrillation ?Rate controlled patient is on beta-blockers as well as amiodarone in addition to systemic anticoagulation 11. COPD currently not in exacerbation ?Aerosol treatments as needed 12. Depression with anxiety ?Patient is on amitriptyline 13. History of tachybradycardia syndrome ? Status post pacemaker placement 14. Peripheral neuropathy ?Patient is on gabapentin apparently held in view of patient being encephalopathic on admission 15. 15. Coronary artery disease ? With previous PCI patient remains on guideline directed medical therapy 16. Chronic congestive heart failure with reduced ejection fraction ? Echo from 05/26/2023 demonstrated EF of 40%. Patient remains compensated. 17. DVT prophylaxis ?Patient is on Eliquis Time spent in the patient's overall evaluation,decision-making process, review of diagnostic data, adjustment of management, discussion with other providers, nursing nursing and ancillary staff involved in patient's care documentation, 53 Minutes Charges/Coding Visit Charges Inpatient E&M: 73810 [facility] L3
[2023-06-20 07:40] LABS: Absolute Lymphocyte Count 0.66 X10^3/uL (0.83-4.51); Absolute Neutrophil Count 5.2 X10^3/uL (2.0-7.7); Basophil# 0.04 X10^3/uL; Basophil% 0.6 % (0-1); Eosinophil# 0.16 X10^3/uL; Eosinophils% 2.5 % (0-5); Hematocrit 30.2 % (37-47); Hemoglobin 9.6 g/dL (12.0-15.0); Lymphocyte # 0.66 X10^3/ul (0.83-4.51); Lymphocyte % 10.2 % (19-41); Mean Corp Hgb Conc 31.8 g/dL (32-36); Mean Corpuscular Hgb 29.2 pg (27.0-32.0); Mean Corpuscular Volume 91.8 fL (81-99); Mean Platelet Vol. 10.1 fl (6.2-12.0); Monocyte% 6.2 % (0-10); NRBC Flagged by Analyzer 0 % (0-5); Neutrophil # 5.16 X10^3/uL (2.7-7.7); Platelet Count 200 K/mm3 (150-450); RBC Distribution Width CV 14.7 % (11.6-14.6); RBC Distribution Width SD 49.1 fl (35.1-43.9); Red Blood Count 3.29 M/mm3 (4.2-5.4); White Blood Count 6.5 K/mm3 (4.4-11.0)
[2023-06-20] MEDS: Budesonide Respules 0.5 MG/2 ML AMPUL.NEB. INHALATION (07:54)
[2023-06-20 08:36] LABS: AST(SGOT) 25 U/L (15-37); Alanine Aminotransfer ALT/SGPT 22 U/L (13-56); Albumin, Serum 3.2 g/dL (3.2-5.0); Alkaline Phosphatase 163 U/L (45-117); Anion Gap 8 (5-15); BUN 29 mg/dL (7-18); BUN/Creat Ratio 16.1 RATIO (10-20); Calcium,Total 8.2 mg/dL (8.5-10.1); Chloride 107 mmol/L (98-107); EST Glomerular Filtration Rate 29 mL/min (>60); Est Glom Filt Rate - Afr Amer 35 mL/min (>60); Estimated Creatinine Clearance 23.59 ml/min; Globulin 3.3 g/dL (2.2-4.2); Glucose 80 mg/dL (74-106); Potassium 3.2 mmol/L (3.5-5.1); Protein, Total 6.5 g/dL (6.4-8.2); Sodium Level 140 mmol/L (136-145); T4 Free Direct 1.01 ng/dL (0.76-1.46); Thyroid Stim Hormone (TSH) 4.79 uIU/mL (0.358-3.74)
[2023-06-20] MEDS: dilTIAZem CD 240 MG Capsule PO (09:01)
[2023-06-20] MEDS: Potassium Chloride Oral Tablet 20 MEQ 40 MEQ PO (09:01)
[2023-06-20] MEDS: Ferrous Sulfate 325 MG Tablet PO ×2 (09:01→17:57)
[2023-06-20] MEDS: Amiodarone 200 MG Tablet 100 MG PO (09:01)
[2023-06-20] MEDS: DULoxetine Hcl 60 MG Capsule PO (09:02)
[2023-06-20] MEDS: APIXABAN 5 MG TABLET PO ×4 (09:03→19:51)
[2023-06-20] MEDS: Isosorbide Mononitrate 60 MG Tablet PO (09:03)
[2023-06-20] MEDS: Furosemide 40 MG Tablet PO ×3 (09:03→17:57)
[2023-06-20] MEDS: Metoprolol Tartrate 100 MG Tablet PO ×3 (09:03→19:56)
[2023-06-20] MEDS: Clopidogrel Bisulfate 75 MG Tablet PO (09:04)
[2023-06-20] MEDS: Pantoprazole Sodium 40 MG Tablet PO (09:04)
[2023-06-20] MEDS: DULoxetine Hcl 30 MG Capsule PO (09:07)
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
[2023-06-20] MEDS: LORazepam 2 MG/ML Syringe 1 MG IV ×2 (15:25→18:41)
--- NOTE | 2023-06-20 16:14 | CHAPLAIN ---
Type of Pastoral Visit _x__ Initial Visit _x__ Follow-up Visit ___ On-call Visit ___ General Patient Visit ___ Spiritual Assessment ___ Family Conference ___ Bereavement ___ Rapid Response ___ Code Blue ___ Other (describe below) Pastoral Care Referral From _x__ Patient ___ Family ___ Nurse ___ Physician ___ Piano Mover ___ Fisher Dip Net _x__ Other (describe below) Sacrament/Intervention _x__ Active listening ___ Anointing ___ Episcopalian ___ Bereavement ___ Communion ___ Ursula exploration ___ _x__ Life review _x__ Prayer ___ Reconciliation ___ Sacrament of Sick _x__ Supportive presence ___ Wedding ___ Other (describe below) Pastoral Comments first visit it was obvious that the patient was not thinking clearly as she was confused about her whereabouts and how she arrived at hospital; pt was thinking that people were in the hallways talking about her and she appeared anxious; pt wanted to leave the hospital, not understanding why she was admitted; sat with pt and talked calmly, listened to her concerns, discovered that she had not eaten and asked for MANAGER FEDERAL to order menu; had prayer with patient a call came from HRO requesting a second visit to this patient who was not happy but willing to talk to this metrology engineer; met with pt again and the security systems integrator left the room; sat again for a long time and talked with pat; tried to help pt think about where she was and why she was in hospital; spoke of how everyone was trying to help her feel better so she could go home; talked about her family; [facility] officer came into room and added support; asked staff again to order food for the patient who had not eaten; pt said she was not hungry but meal did come to her; this metrology engineer gave many reassurances to pt that she was in a good place, that people here could be trusted, and that if patient she would be happier and feeling better soon; pt was calm at this point and this metrology engineer left the room
[2023-06-20] MEDS: Potassium Chloride Oral Tablet 20 MEQ PO (17:57)
--- NOTE | 2023-06-20 18:29 | NURSING ---
Patient became agitated, belligerent, yelling, cursing and unable to redirect this afternoon. Attempted to swing purse at staff and would try to go into other patients room. Security was called to help redirect patient, Patient required multiple attempts to redirect with no success. Erika Dang was in to speak with patient during this time. Dr. Newton Notified of patients behavior- Medication ordered for patient agitation- patient allowed this nurse to administer medication while Austin Ray was in speaking with patient. Patient continued to walk around in room and was still unable to redirect. Patient Son was called- Left message to return call-Son called back at a later time and states that he would come in after work- Son arrived 1800 and spoke with patient- patient yelled and cursed at Son and was trying to leave. Son states that he does not want to take patient home in this condition and wants the patient to get better. Son also states that this is not the first time she has acted in this way and that she has been having episodes like this for the past couple months. Son and patients sister have been looking into assisted living facilities for patient. Dr. Newton notified of patients behavior with Son, PRN medication ordered. Notified of the Son's wishes at this time.
--- NOTE | 2023-06-20 19:36 | NURSING ---
Pt sitting in Shelly chair at nurses station and twice in 5 min she tried to get out of the chair by lowering her self out of the chair. This RN is sitting with her at the desk. Pt is now coloring and distracted. This RN continues to sit with pt.
[2023-06-20] MEDS: Atorvastatin Calcium 40 MG Tablet PO (19:50)
[2023-06-20] MEDS: Ceftriaxone 1 GM/50 ML BAG IV (19:58)
--- NOTE | 2023-06-20 20:17 | PCM.HOSP.N ---
Hospitalist Note Patient restless, difficulty attempting to sleep, will restart her q HS trazodone.
[2023-06-20] MEDS: traZODone 100 MG Tablet 150 MG PO (20:48)
[2023-06-20] MEDS: Azithromycin 500 MG in Dextrose 5%-Water (250mL Bag) 250 ML 250 MG IV (21:24)
[2023-06-20] MEDS: Acetaminophen 325 MG Tablet 650 MG PO (21:24)
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
[2023-06-20] MEDS: Haloperidol Lactate 5 MG/ML Vial IV (23:01)
[2023-06-21] VITALS (11 sets, daily range): BP systolic 98–153; BP diastolic 55–83; PULSE 76–150; RESP 16–18; TEMP 36.4–37.1; O2SAT 92–100; BMI 24.3
--- NOTE | 2023-06-21 00:31 | EKG12_ITS ---
Test Reason : CHEST PAIN Blood Pressure : / mmHG Vent. Rate : 078 BPM Atrial Rate : 000 BPM P-R Int : 000 ms QRS Dur : 112 ms QT Int : 456 ms P-R-T Axes : 000 -06 -82 degrees QTc Int : 519 ms Atrial tachycardia at or equal to 150 BPM with variable AV conduction Cannot rule out Septal infarct , age undetermined NS ST & T wave abnormality, consider inferior ischemia ST & T wave abnormality, consider anterolateral ischemia Prolonged QT Abnormal ECG Confirmed by Antonio Hudson ([id number]), brands editor MARCO ANTONIO MACKAY ([id number]) on 06/23/2023 1:23:42 PM Referred By: ANDREW Confirmed By:Antonio Hudson
--- NOTE | 2023-06-21 00:57 | PCM.HOSP.N ---
Hospitalist Note Patient with onset chest pain. EKG obtained and ST-T changes noted from prior but no STEMI; however, difficult given PAF/Flutter and paced status, certainly altered from admit. Will cycle cardiac enzymes and obtain mag. Will closely monitor on telemetry. FS ASA. Maintained on eliquis. Plan repeat EKG. Low threshold pending work-up to transition to PCU from MS telemetry and low threshold to involve Cardiology pending work-up findings. Morphine 2 mg IV x 1.
[2023-06-21] MEDS: Morphine 2 MG/ML Syringe IV (01:13)
[2023-06-21] MEDS: Aspirin 325 MG Tablet PO (01:13)
[2023-06-21 01:55] LABS: Magnesium 2.2 mg/dL (1.6-2.6)
[2023-06-21 01:59] LABS: Troponin-I HS 18 pg/mL (3.0-54.0)
[2023-06-21 03:31] LABS: Troponin-I HS 18 pg/mL (3.0-54.0)
[2023-06-21] MEDS: Nitroglycerin (INPATIENT USE) 0.4 MG TAB.SUBL SL (03:59)
[2023-06-21] MEDS: Levothyroxine 25 MCG TABLET PO (05:57)
[2023-06-21 07:20] LABS: Absolute Lymphocyte Count 0.68 X10^3/uL (0.83-4.51); Absolute Neutrophil Count 4.5 X10^3/uL (2.0-7.7); Basophil# 0.03 X10^3/uL; Basophil% 0.5 % (0-1); Eosinophil# 0.13 X10^3/uL; Eosinophils% 2.3 % (0-5); Hematocrit 28.1 % (37-47); Hemoglobin 9.3 g/dL (12.0-15.0); Lymphocyte # 0.68 X10^3/ul (0.83-4.51); Lymphocyte % 11.8 % (19-41); Mean Corp Hgb Conc 33.1 g/dL (32-36); Mean Corpuscular Hgb 30.2 pg (27.0-32.0); Mean Corpuscular Volume 91.2 fL (81-99); Monocyte# 0.43 X10^3/uL; Monocyte% 7.5 % (0-10); NRBC Flagged by Analyzer 0 % (0-5); Neutrophil # 4.46 X10^3/uL (2.7-7.7); Neutrophil % 77.7 % (47-70); Platelet Count 179 K/mm3 (150-450); RBC Distribution Width CV 14.8 % (11.6-14.6); RBC Distribution Width SD 48.8 fl (35.1-43.9); Red Blood Count 3.08 M/mm3 (4.2-5.4); White Blood Count 5.7 K/mm3 (4.4-11.0)
--- NOTE | 2023-06-21 07:29 | PCM.PN.HOSP ---
Reason for Visit Reason for Visit: Diagnoses Metabolic encephalopathy (06/19/23) Pneumonia, unspecified organism (06/19/23) Subjective Subjective Patient seen patient was very aggressive and delirious the day prior. Per patient's son her mom's behavior has been ongoing for couple of months and has gotten progressively worse. Patient did receive Ativan as well as Haldol. Objective Data Objective Data Vital Signs: Vital Signs Temp Pulse Resp BP Pulse Ox O2 Del Method O2 Flow Rate 97.8 F 84 16 147/83 H 95 Nasal Cannula 2 06/21/23 03:55 06/21/23 03:59 06/21/23 03:55 06/21/23 03:59 06/21/23 03:55 06/21/23 03:55 06/21/23 03:55 Oxygen Flow Rate (L/min) 2 Oxygen Delivery Method Nasal Cannula Weight: 60 kg Body Mass Index (BMI) 24.3 Intake & Output: Intake and Output for Last 24 Hours 06/19/23 06/20/23 06/21/23 23:59 23:59 23:59 Intake Total 305 / 305 805 / 805 800 / 800 Balance 305 / 305 805 / 805 800 / 800 Lab / Micro Data 06/21/23 07:09 06/20/23 07:00 Labs: Laboratory Results - last 24 hr 06/20/23 07:00: WBC 6.5, RBC 3.29 L, Hgb 9.6 L, Hct 30.2 L, MCV 91.8, MCH 29.2, MCHC 31.8 L, RDW Std Deviation 49.1 H, RDW Coeff of Natalie 14.7 H, Plt Count 200, MPV 10.1, Immature Gran % (Auto) 0.500, Neut % (Auto) 80.0 H, Lymph % (Auto) 10.2 L, [place] % (Auto) 6.2, Eos % (Auto) 2.5, Baso % (Auto) 0.6, Absolute Neuts (auto) 5.2, Absolute Lymphs (auto) 0.66 L, Nucleated RBC % 0, Sodium 140, Potassium 3.2 L, Chloride 107, Carbon Dioxide 25.0, Anion Gap 8, BUN 29 H, Creatinine 1.80 H, Estim Creat Clear Calc 23.59, Est GFR (MDRD) Af Amer 35 L, Est GFR (MDRD) Non-Af 29 L, BUN/Creatinine Ratio 16.1, Glucose 80, Calcium 8.2 L, Total Bilirubin 0.60, AST 25, ALT 22, Alkaline Phosphatase 163 H, Total Protein 6.5, Albumin 3.2, Globulin 3.3, Albumin/Globulin Ratio 1.0, TSH 4.79 H, Free T4 1.01 06/21/23 01:23: Magnesium 2.2, Troponin I High Sens 18 06/21/23 03:00: Troponin I High Sens 18 06/21/23 07:09: WBC 5.7, RBC 3.08 L, Hgb 9.3 L, Hct 28.1 L, MCV 91.2, MCH 30.2, MCHC 33.1, RDW Std Deviation 48.8 H, RDW Coeff of [place] 14.8 H, Plt Count 179, MPV 10.0, Immature Gran % (Auto) 0.200, Neut % (Auto) 77.7 H, Lymph % (Auto) 11.8 L, [place] % (Auto) 7.5, Eos % (Auto) 2.3, Baso % (Auto) 0.5, Absolute Neuts (auto) 4.5, Absolute Lymphs (auto) 0.68 L, Nucleated RBC % 0 Micro: Microbiology 06/19/23 23:25 Mucosa - Nasopharyngeal Respiratory Panel (PCR) - Final 06/19/23 20:07 Urine, Random Legionella Antigen - Final 06/19/23 20:07 Urine, Random Streptococcus pneumoniae Antigen (M - Final 06/19/23 20:50 Mucosa - Nose SARS-CoV-2, Influenza & RSV (PCR) - Final Physical Exam Narrative GENERAL: Delirious HEENT: Atraumatic; normocephalic EYES; Anicteric, Normal Conjunctiva NECK; supple, normal thyroid, RESPIRATORY: Diminished to auscultation CARDIOVASCULAR: Regular S1 S2, GI: soft, normoactive bowel sounds, : No Renal angle tenderness; EXTREMITIES: No edema, no clubbing, MUSCULOSKELETAL: no muscle wasting NEURO: Awake; no lateralizing signs. SKIN: No Rash PSYCH; Flat affect Assessment & Plan Assessment/Plan (1) Acute metabolic encephalopathy: (2) Pneumonia: PLAN: Plan Patient is a 73-year-old lady admitted with altered mental status. Chest x-ray obtained did show right-sided pneumonia. Patient was also found to have positive leukocyte esterase in her urine. Admitted to regular nursing floor for further management 1. Acute metabolic encephalopathy ? Secondary to infectious etiology from pneumonia as well as possible cystitis admitted to regular nursing floor with treatment of the underlying condition ? 06/21/2023 patient was delirious and apparently belligerent the day prior. Suspicion of possible dementia with behavioral agitation exacerbated by her underlying infection 2. Pneumonia - Suspected to be secondary to streptococcal pneumonia, Blood and sputum cultures sent. Patient placed on Rocephin and Zithromax and placed on oxygen titrated to keep Pulse Ox greater than 90 3. Acute cystitis ? Patient is on ceftriaxone 4. Hypothyroidism - Patient is on levothyroxine home dose continued 5. Dyslipidemia -Patient is on statin therapy, continued at home dose 6. Chronic kidney disease stage IIIb ? Kidney function at baseline. Creatinine actually much better than recent values 7. Obstructive sleep apnea ? Patient is on BiPAP at night 8. Anemia - Secondary to chronic disorder monitoring H&H and transfuse if patient becomes symptomatic or hemoglobin falls below 7 9. Peripheral arterial disease ?Patient is on antiplatelet 10. Paroxysmal atrial fibrillation ?Rate controlled patient is on beta-blockers as well as amiodarone in addition to systemic anticoagulation 11. COPD currently not in exacerbation ?Aerosol treatments as needed 12. Depression with anxiety ?Patient is on amitriptyline 13. History of tachybradycardia syndrome ? Status post pacemaker placement 14. Peripheral neuropathy ?Patient is on gabapentin apparently held in view of patient being encephalopathic on admission 15. 15. Coronary artery disease ? With previous PCI patient remains on guideline directed medical therapy 16. Chronic congestive heart failure with reduced ejection fraction ? Echo from 05/26/2023 demonstrated EF of 40%. Patient remains compensated. 17. DVT prophylaxis ?Patient is on Eliquis 18. Suspected dementia with behavioral agitation ? Patient did receive Ativan which has been continued and placed on Seroquel 25 mg p.o. twice daily Time spent in the patient's overall evaluation,decision-making process, review of diagnostic data, adjustment of management, discussion with other providers, nursing nursing and ancillary staff involved in patient's care documentation, 50 Minutes Charges/Coding Visit Charges Inpatient E&M: 69614 [facility] L3
[2023-06-21 07:36] LABS: Troponin-I HS 16 pg/mL (3.0-54.0)
--- NOTE | 2023-06-21 07:53 | CPS ---
Pt refused aerosol. Refused CPAP, hasn't worn her machine in at least 2 years.
[2023-06-21 08:26] LABS: Anion Gap 7 (5-15); BUN 33 mg/dL (7-18); BUN/Creat Ratio 18.3 RATIO (10-20); Calcium,Total 8.1 mg/dL (8.5-10.1); Chloride 109 mmol/L (98-107); EST Glomerular Filtration Rate 29 mL/min (>60); Est Glom Filt Rate - Afr Amer 35 mL/min (>60); Estimated Creatinine Clearance 21.69 ml/min; Glucose 126 mg/dL (74-106); Magnesium 2.2 mg/dL (1.6-2.6); Phosphorus 3.1 mg/dL (2.5-4.9); Potassium 3.8 mmol/L (3.5-5.1); Sodium Level 139 mmol/L (136-145)
--- NOTE | 2023-06-21 08:38 | CASEMGMT ---
Social Work Pt needs assessed for [facility]ill[facility]-psych placement. SW called [facility], spoke w/Jacqueline, faxed over information. She will be here this morning to see pt. NESTOR Galindo
--- NOTE | 2023-06-21 08:43 | CASEMGMT ---
Social Work SDOH assessment deferred at this time as pt has been confused. NESTOR Galindo
[2023-06-21] MEDS: dilTIAZem CD 240 MG Capsule PO (09:58)
[2023-06-21] MEDS: Clopidogrel Bisulfate 75 MG Tablet PO (09:58)
[2023-06-21] MEDS: DULoxetine Hcl 60 MG Capsule PO (09:58)
[2023-06-21] MEDS: Furosemide 40 MG Tablet PO ×2 (09:58→17:06)
[2023-06-21] MEDS: Amiodarone 200 MG Tablet 100 MG PO (09:58)
[2023-06-21] MEDS: Isosorbide Mononitrate 60 MG Tablet PO (09:58)
[2023-06-21] MEDS: DULoxetine Hcl 30 MG Capsule PO (09:58)
[2023-06-21] MEDS: Ferrous Sulfate 325 MG Tablet PO ×2 (09:59→17:06)
[2023-06-21] MEDS: Pantoprazole Sodium 40 MG Tablet PO (09:59)
[2023-06-21] MEDS: Potassium Chloride Oral Tablet 20 MEQ PO ×2 (09:59→17:06)
[2023-06-21] MEDS: QUEtiapine 25 MG Tablet PO ×3 (09:59→22:57)
[2023-06-21] MEDS: Metoprolol Tartrate 100 MG Tablet PO ×2 (10:00→20:33)
--- NOTE | 2023-06-21 11:34 | CASEMGMT ---
Social Work KOKO received a call back from [place], where Jacqueline the preparation room worker was looking to get pt placed. As per Tess, the physician declined the referral as it is more of a medical/social issue and needs to be handled closer to home. KOKO called crisis, spoke w/Cem, let him know so he can relay the information to Jacqueline, he will do so. NESTOR Galindo
[2023-06-21] MEDS: Acetaminophen 325 MG Tablet 650 MG PO (19:35)
[2023-06-21] MEDS: MELATONIN 3 MG TABLET PO (19:35)
[2023-06-21] MEDS: Ondansetron 4 MG/2 ML Vial IV (19:35)
[2023-06-21] MEDS: 0.9% Saline Lock 10 ML Syringe IV (19:36)
[2023-06-21] MEDS: Ceftriaxone 1 GM/50 ML BAG IV (20:32)
[2023-06-21] MEDS: APIXABAN 5 MG TABLET PO (20:33)
[2023-06-21] MEDS: Atorvastatin Calcium 40 MG Tablet PO (20:34)
[2023-06-21 20:52] LABS: Amphetamine Urine VISTA NEGATIVE (<1000 ng/mL); Barbiturate Urine VISTA NEGATIVE (< 200 ng/mL); Benzodiazepine Urine VISTA NEGATIVE (< 200 ng/mL); Cocaine Urine VISTA NEGATIVE (< 300 ng/mL); Ecstacy Urine VISTA POSITIVE (< 500 ng/mL); Methadone Urine VISTA NEGATIVE (< 300 ng/mL); PCP Urine VISTA NEGATIVE (< 25 ng/mL); THC Urine VISTA NEGATIVE (< 50 ng/mL); Vista UDS pH Range 5
[2023-06-21] MEDS: Azithromycin 500 MG in Dextrose 5%-Water (250mL Bag) 250 ML 250 MG IV (21:25)
--- NOTE | 2023-06-21 22:37 | PCM.HOSP.N ---
Hospitalist Note Patient restless, anxious still, will dose with an additional low dose seroquel 25 mg x 1.
[2023-06-21] MEDS: proCHLORPERazine 10 MG/2 ML Vial 5 MG IV (22:50)
[2023-06-22] VITALS (7 sets, daily range): BP systolic 115–133; BP diastolic 54–63; PULSE 76–79; RESP 18; TEMP 36.6–36.8; O2SAT 94–100; BMI 23.6
--- NOTE | 2023-06-22 01:20 | NURSING ---
Crisis team called and want ekg, vitals and covid test results faxed to [facility] [phone]. results faxxed. Waiting for acceptance
[2023-06-22 05:23] LABS: Absolute Lymphocyte Count 0.55 X10^3/uL (0.83-4.51); Absolute Neutrophil Count 3.4 X10^3/uL (2.0-7.7); Basophil# 0.02 X10^3/uL; Basophil% 0.5 % (0-1); Eosinophil# 0.01 X10^3/uL; Eosinophils% 0.2 % (0-5); Hematocrit 25.1 % (37-47); Lymphocyte # 0.55 X10^3/ul (0.83-4.51); Lymphocyte % 12.6 % (19-41); Mean Corp Hgb Conc 31.9 g/dL (32-36); Mean Corpuscular Hgb 29.6 pg (27.0-32.0); Mean Platelet Vol. 10.2 fl (6.2-12.0); Monocyte% 9.2 % (0-10); NRBC Flagged by Analyzer 0 % (0-5); Neutrophil # 3.35 X10^3/uL (2.7-7.7); POSITIVE DIFFERENTIAL YES; Platelet Count 157 K/mm3 (150-450); RBC Distribution Width CV 14.6 % (11.6-14.6); RBC Distribution Width SD 48.3 fl (35.1-43.9); White Blood Count 4.4 K/mm3 (4.4-11.0)
[2023-06-22 05:40] LABS: Anion Gap 6 (5-15); BUN 36 mg/dL (7-18); BUN/Creat Ratio 16.8 RATIO (10-20); Calcium,Total 7.8 mg/dL (8.5-10.1); Chloride 104 mmol/L (98-107); Creatinine, Serum 2.14 mg/dL (0.55-1.02); EST Glomerular Filtration Rate 24 mL/min (>60); Est Glom Filt Rate - Afr Amer 29 mL/min (>60); Estimated Creatinine Clearance 18.24 ml/min; Glucose 96 mg/dL (74-106); Potassium 4.1 mmol/L (3.5-5.1); Sodium Level 138 mmol/L (136-145)
[2023-06-22] MEDS: Levothyroxine 25 MCG TABLET PO (06:33)
--- NOTE | 2023-06-22 07:25 | PN.HOSP_ITS ---
Reason for Visit Reason for Visit: Diagnoses Metabolic encephalopathy (06/19/23) Pneumonia, unspecified organism (06/19/23) Subjective Subjective Consult was placed to [facility]. Plan is for patient to be transferred pending approval Objective Data Objective Data Vital Signs: Vital Signs Temp Pulse Resp BP Pulse Ox O2 Del Method O2 Flow Rate 97.9 F 79 18 118/54 L 97 Room Air 2 06/22/23 06:34 06/22/23 06:34 06/22/23 06:34 06/22/23 06:34 06/22/23 06:34 06/22/23 06:34 06/22/23 06:34 Oxygen Flow Rate (L/min) 2 Oxygen Delivery Method Room Air Weight: 58.4 kg Body Mass Index (BMI) 23.6 Intake & Output: Intake and Output for Last 24 Hours 06/20/23 06/21/23 06/22/23 23:59 23:59 23:59 Intake Total 805 / 805 1105 / 1805 800 / 800 Balance 805 / 805 1105 / 1805 800 / 800 Lab / Micro Data 06/22/23 04:45 06/22/23 04:45 Labs: Laboratory Results - last 24 hr 06/21/23 07:09: Sodium 139, Potassium 3.8, Chloride 109 H, Carbon Dioxide 23.0, Anion Gap 7, BUN 33 H, Creatinine 1.80 H, Estim Creat Clear Calc 21.69, Est GFR (MDRD) Af Amer 35 L, Est GFR (MDRD) Non-Af 29 L, BUN/Creatinine Ratio 18.3, Glucose 126 H, Calcium 8.1 L, Phosphorus 3.1, Magnesium 2.2, Troponin I High Sens 16 06/21/23 20:20: Urine Opiates Screen POSITIVE H, Urine Methadone Screen NEGATIVE, Ur Barbiturates Screen NEGATIVE, Ur Phencyclidine Scrn NEGATIVE, Ur Amphetamines Screen NEGATIVE, MDMA (Ecstasy) Screen POSITIVE H, U Benzodiazep raghu Scrn NEGATIVE, Urine Cocaine Screen NEGATIVE, U Cannabinoids Screen NEGATIVE, Ur Drug Screen Comment 06/22/23 04:45: WBC 4.4, RBC 2.70 L, Hgb 8.0 L, Hct 25.1 L, MCV 93.0, MCH 29.6, MCHC 31.9 L, RDW Std Deviation 48.3 H, RDW Coeff of Natalie 14.6, Plt Count 157, MPV 10.2, Immature Gran % (Auto) 0.500, Neut % (Auto) 77.0 H, Lymph % (Auto) 12.6 L, Pepin % (Auto) 9.2, Eos % (Auto) 0.2, Baso % (Auto) 0.5, Absolute Neuts (auto) 3.4, Absolute Lymphs (auto) 0.55 L, Nucleated RBC % 0, Sodium 138, Potassium 4.1, Chloride 104, Carbon Dioxide 28.0, Anion Gap 6, BUN 36 H, Creatinine 2.14 H , Estim Creat Clear Calc 18.24, Est GFR (MDRD) Af Amer 29 L, Est GFR (MDRD) Non- Af 24 L, BUN/Creatinine Ratio 16.8, Glucose 96, Calcium 7.8 L Micro: Microbiology 06/19/23 23:25 Mucosa - Nasopharyngeal Respiratory Panel (PCR) - Final 06/19/23 20:07 Urine, Random Legionella Antigen - Final 06/19/23 20:07 Urine, Random Streptococcus pneumoniae Antigen (M - Final 06/19/23 20:50 Mucosa - Nose SARS-CoV-2, Influenza & RSV (PCR) - Final Physical Exam Narrative GENERAL: Delirious HEENT: Atraumatic; normocephalic EYES; Anicteric, Normal Conjunctiva NECK; supple, normal thyroid, RESPIRATORY: Diminished to auscultation CARDIOVASCULAR: Regular S1 S2, GI: soft, normoactive bowel sounds, : No Renal angle tenderness; EXTREMITIES: No edema, no clubbing, MUSCULOSKELETAL: no muscle wasting NEURO: Awake; no lateralizing signs. SKIN: No Rash PSYCH; Flat affect Assessment & Plan Assessment/Plan (1) Acute metabolic encephalopathy: (2) Pneumonia: PLAN: Plan Patient is a 73-year-old lady admitted with altered mental status. Chest x-ray obtained did show right-sided pneumonia. Patient was also found to have positive leukocyte esterase in her urine. Admitted to regular nursing floor for further management 1. Acute metabolic encephalopathy ? Secondary to infectious etiology from pneumonia as well as possible cystitis admitted to regular nursing floor with treatment of the underlying condition ? 06/21/2023 patient was delirious and apparently belligerent the day prior. Suspicion of possible dementia with behavioral agitation exacerbated by her underlying infection 2. Pneumonia - Suspected to be secondary to streptococcal pneumonia, Blood and sputum cultures sent. Patient placed on Rocephin and Zithromax and placed on oxygen titrated to keep Pulse Ox greater than 90 ? 06/22/2023 patient currently not requiring any oxygen 3. Acute cystitis ? Patient is on ceftriaxone 4. Hypothyroidism - Patient is on levothyroxine home dose continued 5. Dyslipidemia -Patient is on statin therapy, continued at home dose 6. Chronic kidney disease stage IIIb ? Kidney function at baseline. Creatinine actually much better than recent values 7. Obstructive sleep apnea ? Patient is on BiPAP at night 8. Anemia - Secondary to chronic disorder monitoring H&H and transfuse if patient becomes symptomatic or hemoglobin falls below 7 9. Peripheral arterial disease ?Patient is on antiplatelet 10. Paroxysmal atrial fibrillation ?Rate controlled patient is on beta-blockers as well as amiodarone in addition to systemic anticoagulation 11. COPD currently not in exacerbation ?Aerosol treatments as needed 12. Depression with anxiety ?Patient is on amitriptyline 13. History of tachybradycardia syndrome ? Status post pacemaker placement 14. Peripheral neuropathy ?Patient is on gabapentin apparently held in view of patient being encephalopathic on admission 15. Coronary artery disease ? With previous PCI patient remains on guideline directed medical therapy 16. Chronic congestive heart failure with reduced ejection fraction ? Echo from 05/26/2023 demonstrated EF of 40%. Patient remains compensated. 17. DVT prophylaxis ?Patient is on Eliquis 18. Suspected dementia with behavioral agitation ? Patient did receive Ativan which has been continued and placed on Seroquel 25 mg p.o. twice daily ? 06/22/2023;Consult was placed to [facility]. Plan is for patient to be transferred pending approval Time spent in the patient's overall evaluation,decision-making process, review of diagnostic data, adjustment of management, discussion with other providers, nursing nursing and ancillary staff involved in patient's care documentation, 35 minutes Charges/Coding Visit Charges Inpatient E&M: 15506 Subs Hosp L2
--- NOTE | 2023-06-22 07:50 | CPS ---
Pt continues to refuse aerosols and BIPAP.
[2023-06-22] MEDS: Potassium Chloride Oral Tablet 20 MEQ PO ×2 (10:15→17:04)
[2023-06-22] MEDS: Ferrous Sulfate 325 MG Tablet PO ×2 (10:15→17:04)
[2023-06-22] MEDS: dilTIAZem CD 240 MG Capsule PO (10:15)
[2023-06-22] MEDS: APIXABAN 5 MG TABLET PO ×2 (10:16→21:53)
[2023-06-22] MEDS: DULoxetine Hcl 60 MG Capsule PO (10:16)
[2023-06-22] MEDS: Isosorbide Mononitrate 60 MG Tablet PO (10:16)
[2023-06-22] MEDS: Pantoprazole Sodium 40 MG Tablet PO (10:16)
[2023-06-22] MEDS: Amiodarone 200 MG Tablet 100 MG PO (10:16)
[2023-06-22] MEDS: DULoxetine Hcl 30 MG Capsule PO (10:16)
[2023-06-22] MEDS: Furosemide 40 MG Tablet PO ×2 (10:16→17:04)
[2023-06-22] MEDS: Metoprolol Tartrate 100 MG Tablet PO ×2 (10:16→21:53)
[2023-06-22] MEDS: Clopidogrel Bisulfate 75 MG Tablet PO (10:16)
[2023-06-22] MEDS: QUEtiapine 25 MG Tablet PO ×2 (10:17→19:45)
[2023-06-22] MEDS: MELATONIN 3 MG TABLET PO (19:45)
[2023-06-22] MEDS: Ceftriaxone 1 GM/50 ML BAG IV (21:52)
[2023-06-22] MEDS: 0.9% Saline Lock 10 ML Syringe IV (21:52)
[2023-06-22] MEDS: Atorvastatin Calcium 40 MG Tablet PO (21:53)
[2023-06-22] MEDS: Acetaminophen 325 MG Tablet 650 MG PO (21:53)
[2023-06-22] MEDS: Azithromycin 500 MG in Dextrose 5%-Water (250mL Bag) 250 ML 250 MG IV (23:14)
[2023-06-23 02:29] VITALS: BP 126/81; PULSE 74; RESP 18; TEMP 36.5; O2SAT 99
[2023-06-23] MEDS: hydrOXYzine PAM 25 MG Capsule PO (02:33)
[2023-06-23 05:38] LABS: Absolute Lymphocyte Count 0.74 X10^3/uL (0.83-4.51); Absolute Neutrophil Count 3.7 X10^3/uL (2.0-7.7); Basophil# 0.02 X10^3/uL; Basophil% 0.4 % (0-1); Eosinophil# 0.15 X10^3/uL; Hematocrit 27.1 % (37-47); Hemoglobin 8.7 g/dL (12.0-15.0); Lymphocyte # 0.74 X10^3/ul (0.83-4.51); Lymphocyte % 14.8 % (19-41); Mean Corp Hgb Conc 32.1 g/dL (32-36); Mean Corpuscular Hgb 30.2 pg (27.0-32.0); Mean Corpuscular Volume 94.1 fL (81-99); Mean Platelet Vol. 9.9 fl (6.2-12.0); Monocyte# 0.34 X10^3/uL; Monocyte% 6.8 % (0-10); NRBC Flagged by Analyzer 0 % (0-5); Neutrophil # 3.73 X10^3/uL (2.7-7.7); Neutrophil % 74.8 % (47-70); Platelet Count 182 K/mm3 (150-450); RBC Distribution Width CV 14.5 % (11.6-14.6); RBC Distribution Width SD 49.3 fl (35.1-43.9); Red Blood Count 2.88 M/mm3 (4.2-5.4)
[2023-06-23 06:00] VITALS: BMI 23.6
[2023-06-23 06:05] LABS: Anion Gap 4 (5-15); BUN 39 mg/dL (7-18); BUN/Creat Ratio 18.1 RATIO (10-20); Calcium,Total 8.1 mg/dL (8.5-10.1); Chloride 108 mmol/L (98-107); Creatinine, Serum 2.16 mg/dL (0.55-1.02); EST Glomerular Filtration Rate 24 mL/min (>60); Est Glom Filt Rate - Afr Amer 29 mL/min (>60); Estimated Creatinine Clearance 18.07 ml/min; Glucose 87 mg/dL (74-106); Sodium Level 141 mmol/L (136-145)
[2023-06-23] MEDS: Levothyroxine 25 MCG TABLET PO (06:24)
[2023-06-23] MEDS: Ferrous Sulfate 325 MG Tablet PO ×2 (10:02→17:10)
[2023-06-23] MEDS: Pantoprazole Sodium 40 MG Tablet PO (10:02)
[2023-06-23] MEDS: Furosemide 40 MG Tablet PO ×2 (10:02→17:10)
[2023-06-23] MEDS: dilTIAZem CD 240 MG Capsule PO (10:02)
[2023-06-23] MEDS: APIXABAN 5 MG TABLET PO ×2 (10:02→22:00)
[2023-06-23 10:03] VITALS: PULSE 76
[2023-06-23] MEDS: Clopidogrel Bisulfate 75 MG Tablet PO (10:03)
[2023-06-23] MEDS: Potassium Chloride Oral Tablet 20 MEQ PO ×2 (10:03→17:10)
[2023-06-23] MEDS: Metoprolol Tartrate 100 MG Tablet PO ×2 (10:03→21:58)
[2023-06-23] MEDS: DULoxetine Hcl 60 MG Capsule PO (10:03)
[2023-06-23] MEDS: Isosorbide Mononitrate 60 MG Tablet PO (10:03)
[2023-06-23] MEDS: DULoxetine Hcl 30 MG Capsule PO (10:03)
[2023-06-23] MEDS: QUEtiapine 25 MG Tablet PO ×2 (10:06→22:00)
[2023-06-23 10:07] VITALS: BP 121/57; PULSE 76; RESP 18; TEMP 36.5; O2SAT 100
[2023-06-23] MEDS: Amiodarone 200 MG Tablet 100 MG PO (10:18)
--- NOTE | 2023-06-23 12:19 | CASEMGMT ---
Addendum entered by Candy Pinzon 06/23/23 15:06: Received tc back from Jacqu[facility] at [facility] who states referrals are out to [facility] as well as [facility]. She will update if she hears of acceptance or not and requests that if the unit is notified that RN ESTELA or SW notify [facility]. Addendum entered by Candy Pinzon 06/23/23 13:07: Faxed [facility] progress note and dc medications per request at this time. Original Note: TC to Shobha at [facility], she states pt was denied by many facilities as there were not beds or pt was too medically complex. Message to hospitalist, pt will be on po atb on dc and is medically cleared. [facility] is requesting a note stating that pt is medically cleared, will not be on IV's and a current med list. Will await for this and then fax to [phone]. Shobha states [facility] may reconsider with this info.
--- NOTE | 2023-06-23 12:55 | PCM.HOSP.N ---
Hospitalist Note Patient is medically optimized and stable for discharge to psychiatric facility. She is only on oral antibiotics at this point and will only need 3 more days of p.o. Augmentin. She does not require any oxygen except at night for which she wears 2 L for previous diagnosis of sleep apnea.
[2023-06-23 14:52] VITALS: BP 133/61; PULSE 72; RESP 18; TEMP 36.2; O2SAT 95
--- NOTE | 2023-06-23 16:42 | PCM.DC.SUM ---
Providers Date of Admission: 06/19/23 Date of Discharge: 06/23/23 Primary Care Physician: Dr. Opal Ayoub MD Reason For Visit: ENCEPHALOPATHY, PNA Diagnosis Discharge Diagnosis (1) Acute metabolic encephalopathy: Status: Acute Code(s): G93.41 - Metabolic encephalopathy (2) Pneumonia: Status: Acute Code(s): J18.9 - Pneumonia, unspecified organism Medications at Discharge Home Medications trazodone 150 mg tablet 150 mg PO QHS sleep 11/24/20 calcium carbonate 600 mg-vitamin D3 12.5 mcg (500 unit) capsule (Calcium 600 with Vitamin D3) 1 cap PO DAILY supplement 02/22/21 ascorbic acid (vitamin C) 1,000 mg tablet (Vitamin C) 1,000 mg PO DAILY supplement 12/05/21 lorazepam 1 mg tablet 1 mg PO TID PRN Anxiety 12/05/21 vitamin E (dl, acetate) 45 mg (100 unit) capsule 45 mg PO DAILY supplement 12/05/21 apixaban 5 mg tablet (Eliquis) 5 mg PO BID blood thinner #180 tabs 12/26/21 clopidogrel 75 mg tablet 75 mg PO DAILY antiplatelet #90 tabs 06/12/22 metoprolol tartrate 100 mg tablet 100 mg PO BID BP #180 tabs 06/12/22 diltiazem HCl 240 mg capsule,24 hr,extended release 240 mg PO DAILY BP #90 caps 06/21/22 isosorbide mononitrate 60 mg tablet,extended release 24 hr 60 mg PO DAILY HEART #90 tabs 06/21/22 nitroglycerin 0.4 mg sublingual tablet (Nitrostat) 0.4 mg sublingual Q5M PRN Chest Pain #25 tabs 06/27/22 duloxetine 60 mg capsule,delayed release 60 mg PO DAILY mental health #30 caps 11/21/22 albuterol sulfate 90 mcg/actuation aerosol inhaler 1 - 2 puff inhalation Q4H PRN PRN Dyspnea, wheezing ##1 01/15/23 fluticasone 500 mcg-salmeterol 50 mcg/dose blistr powdr for inhalation (Wixela Inhub) 1 inh inhalation BID breathing #60 ea 01/15/23 tiotropium bromide 2.5 mcg/actuation mist for inhalation (Spiriva Respimat) 2 puff inhalation DAILY COPD #4 grams 01/15/23 duloxetine 30 mg capsule,delayed release 30 mg PO DAILY mental health #30 caps 03/04/23 atorvastatin 40 mg tablet 40 mg PO DAILY cholesterol #90 tabs 03/18/23 pantoprazole 40 mg tablet,delayed release 40 mg PO DAILY GERD #90 tabs 03/18/23 amiodarone 200 mg tablet 100 mg (1/2 x 200 mg) PO DAILY BP #90 tabs 04/22/23 levothyroxine 25 mcg tablet (Synthroid) 25 mcg PO DAILY #30 tabs 04/23/23 ferrous sulfate 325 mg (65 mg iron) tablet 325 mg PO BID supplement 05/26/23 dicyclomine 10 mg capsule 10 mg PO 4X/DAY #120 caps 05/29/23 furosemide 40 mg tablet 40 mg PO BID diuretic 06/04/23 dapagliflozin propanediol 10 mg tablet (Farxiga) See Rx Instructions .Route .COMPLEX #30 TABLETS 06/10/23 gabapentin 300 mg capsule See Rx Instructions .Route .COMPLEX #120 caps 06/10/23 amoxicillin 875 mg-potassium clavulanate 125 mg tablet 1 tab PO BID #6 tabs 06/23/23 Hospital Course Operations None Procedures EKG and - (CT brain/chest x-ray) Summary of Care Provided Minutes Spent on Discharge: 38 Hospital Course: Ms. Puri is a 73-year-old female who presented to emergency department [facility] on 06/19/2023 due to confusion. She is extremely complicated past medical history but has been having several weeks to months of increasing forgetfulness and concerns by the family that she may have some underlying dementia. She has had difficulty performing appropriate ADLs and family noted that the day prior to presentation she was moving about the house and packing her furniture and was recently found outside sleeping which prompted the family to bring her in for evaluation. She denied any significant symptoms but family was indicating she may not be the best historian. She had missed multiple visits with her outpatient providers including cardiology, psychiatry and other specialist and apparently had not been taking her meds regularly or using her BiPAP at night. At the time of admission there was significant concern that she was not able to take care of herself and may be having issues related to her underlying psychiatric diagnoses. Her vital signs on presentation were unremarkable. Her CBC was unremarkable. Her urinalysis was not consistent with infection. Chest x-ray showed evidence of right-sided pneumonia with a right lower lobe infiltrate. Her EKG was paced. CT of the brain showed chronic involutional changes. In the emergency department she was started on Rocephin and azithromycin and admitted to the medical floor. During her hospitalization she had intermittent agitation and 1 episode of chest pain. An EKG was obtained and unchanged from prior and cardiac enzymes were unremarkable. She had issues with aggression and delirium throughout her hospitalization. When she was medically stabilized [facility] was consulted. They did agree that she needed ongoing [facility] care and were able to get her to [facility] on 06/23/2023. She was on room air at the time of discharge at rest and with exertion. She will need 2 more days of antibiotics to complete regimen for pneumonia. Oral antibiotics with Augmentin were continued for the next 48 hours and then may be discontinued. No other medications were changed at the time of discharge. She was able to be discharged to [facility] in stable condition on 06/23/2023. Discharge diagnoses: Community-acquired pneumonia-resolving Acute toxic/metabolic encephalopathy-resolving Suspected UTI--> continue antibiotics as prescribed above Hypothyroidism Hyperlipidemia CKD stage IIIb BELLE Anemia-chronic PAD PAF COPD Depression with anxiety History of tachybradycardia syndrome-status post pacemaker Peripheral neuropathy CAD Suspected dementia with behavioral issues Chronic heart failure with reduced ejection fraction secondary to systolic dysfunction History of tobacco abuse Physical Exam Const alert, oriented x3, no apparent distress, average body habitus and well nourished Constitutional Narrative: Older, white female, sitting up in a chair at the bedside, appears comfortable, nontoxic, eating breakfast and watching television General Appearance: cooperative, comfortable, well kempt and well developed Orientation / Consciousness: awake, oriented to person, oriented to place and oriented to time Exam Limitations: no limitations HEENT normocephalic, head/scalp atraumatic, hearing grossly normal bilaterally and moist oral mucous membranes HEENT Narrative: Dentition is poor, Mallampati is 2, no thrush Eyes PERRL and EOMs intact bilaterally Eyes Narrative: Conjunctiva are mildly pale bilaterally, no scleral icterus Neck no lymphadenopathy and supple Neck Narrative: Trachea midline, no thyroid enlargement Resp normal respiratory effort, no retractions, no use of accessory muscles and clear to auscultation bilaterally Resp Narrative: Diffusely diminished but clear Auscultation: Negative for rales, rhonchi or wheezes Cardio regular rate, regular rhythm, S1 normal heart sound, S2 normal heart sound, no murmurs, no rub, no gallops and no clicks GI normal to inspection, nondistended, normoactive bowel sounds, soft to palpation and non-tender Extremity no clubbing, cyanosis or edema Extremity Narrative: Pedal pulses are 1+ bilaterally in the distal lower extremities and radial pulses are 2+ Skin no rashes or lesions noted, no wounds, skin turgor normal and no jaundice Neuro oriented x3, CN's II-XII intact bilaterally, moves all extremities and no focal motor deficits Psych Psych Narrative: Currently calm however patient has intermittent behavioral abnormalities and issues both here and at home prior to presentation Weight / BMI Weight Weight: 58.2 kg Body Mass Index (BMI) 23.6 ABG / Lab / Microbiology Data 06/23/23 05:27 06/23/23 05:27 Laboratory: Laboratory Results - last 24 hr 06/23/23 05:27: WBC 5.0, RBC 2.88 L, Hgb 8.7 L, Hct 27.1 L, MCV 94.1, MCH 30.2, MCHC 32.1, RDW Std Deviation 49.3 H, RDW Coeff of Natalie 14.5, Plt Count 182, MPV 9.9, Immature Gran % (Auto) 0.200, Neut % (Auto) 74.8 H, Lymph % (Auto) 14.8 L, [place] % (Auto) 6.8, Eos % (Auto) 3.0, Baso % (Auto) 0.4, Absolute Neuts (auto) 3.7, Absolute Lymphs (auto) 0.74 L, Nucleated RBC % 0, Sodium 141, Potassium 4.0, Chloride 108 H, Carbon Dioxide 29.0, Anion Gap 4 L, BUN 39 H, Creatinine 2.16 H, Estim Creat Clear Calc 18.07, Est GFR (MDRD) Af Amer 29 L, Est GFR (MDRD) Non-Af 24 L, BUN/Creatinine Ratio 18.1, Glucose 87, Calcium 8.1 L Microbiology: Microbiology 06/19/23 23:25 Mucosa - Nasopharyngeal Respiratory Panel (PCR) - Final 06/19/23 20:07 Urine, Random Legionella Antigen - Final 06/19/23 20:07 Urine, Random Streptococcus pneumoniae Antigen (M - Final 06/19/23 20:50 Mucosa - Nose SARS-CoV-2, Influenza & RSV (PCR) - Final D/C Instructions Discharge Diet: Low fat / Low cholesterol Discharge Activity: Return to Normal Activity Meaningful Use Info Meaningful Use Diagnoses (Choose all that apply): None applicable Discharge Plan Admission Admit Date/Time: 06/19/23 21:07 Primary Reason for Your Visit: Altered mental status Attending Provider: Josselyn Reis Primary Care Provider: Opal Ayoub Consulting Providers: Fernanda Puri; Stephan Newton Discharge Orders/Prescriptions Prescriptions: New amoxicillin-pot clavulanate 875-125 mg tablet 1 tab PO BID Qty: 6 0RF Continued calcium carbonate-vitamin D3 [Calcium 600 with Vitamin D3] 600 mg(1,500mg) -500 unit capsule 1 cap PO DAILY duloxetine 60 mg capsule,delayed release(DR/EC) 60 mg PO DAILY Qty: 30 5RF albuterol sulfate 90 mcg/actuation HFA aerosol inhaler 1 - 2 puff INHALATION Q4H PRN PRN (Reason: Dyspnea, wheezing) Qty: 1 6RF fluticasone propion-salmeterol [Wixela Inhub] 500-50 mcg/dose blister with device 1 inh INHALATION BID Qty: 60 6RF Spiriva Respimat 2.5 mcg/actuation mist 2 puff inhalation DAILY Qty: 4 11RF ferrous sulfate 325 mg (65 mg iron) tablet 325 mg PO BID furosemide 40 mg tablet 40 mg PO BID trazodone 150 mg Tablet 150 mg PO QHS ascorbic acid (vitamin C) [Vitamin C] 1,000 mg tablet 1,000 mg PO DAILY lorazepam 1 mg tablet 1 mg PO TID PRN (Reason: Anxiety) Rx Instructions: TAKE 1 TABLET BY MOUTH THREE TIMES A DAY AND 1 TABLET TWICE A DAY NEEDED FOR ANXIETY/RESTLESSNESS (PALLIATIVE CARE) vitamin E (dl, acetate) 45 mg (100 unit) capsule 45 mg PO DAILY Eliquis 5 mg tablet 5 mg PO BID Qty: 180 3RF clopidogrel 75 mg tablet 75 mg PO DAILY Qty: 90 3RF metoprolol tartrate 100 mg tablet 100 mg PO BID Qty: 180 3RF diltiazem HCl 240 mg capsule,extended release 24 hr 240 mg PO DAILY Qty: 90 3RF isosorbide mononitrate 60 mg tablet extended release 24 hr 60 mg PO DAILY Qty: 90 3RF nitroglycerin [Nitrostat] 0.4 mg tablet, sublingual 0.4 mg SUBLINGUAL Q5M PRN (Reason: Chest Pain) Qty: 25 3RF duloxetine 30 mg capsule,delayed release(DR/EC) 30 mg PO DAILY Qty: 30 5RF pantoprazole 40 mg tablet,delayed release (DR/EC) 40 mg PO DAILY Qty: 90 0RF atorvastatin 40 mg tablet 40 mg PO DAILY Qty: 90 0RF amiodarone 200 mg tablet 100 mg PO DAILY Qty: 90 3RF levothyroxine [Synthroid] 25 mcg tablet 25 mcg PO DAILY Qty: 30 1RF dicyclomine 10 mg capsule 10 mg PO 4X/DAY Qty: 120 0RF Farxiga 10 mg tablet See Rx Instructions .ROUTE .COMPLEX Qty: 30 5RF Dose Instruction: TAKE 1 TABLET BY MOUTH DAILY Rx Instructions: TAKE 1 TABLET BY MOUTH DAILY gabapentin 300 mg capsule See Rx Instructions .ROUTE .COMPLEX Qty: 120 0RF Dose Instruction: TAKE 1 CAPSULE BY MOUTH IN THE MORNING and AFTERNOON. TAKE 2 (TWO) CAPSULES BY MOUTH AT BEDTIME Rx Instructions: TAKE 1 CAPSULE BY MOUTH IN THE MORNING and AFTERNOON. TAKE 2 (TWO) CAPSULES BY MOUTH AT BEDTIME Discontinued buspirone 10 mg tablet 10 mg PO TID Qty: 90 1RF Hold Instructions: pt states does not have Referrals / Follow Up: Opal Ayoub MD [Primary Care Provider] - Within 2 Weeks Disposition Disposition (needs filled in before D/C Order can be placed): Psychiatric Hospital or Unit Charges/Coding Visit Charges Inpatient E&M: 30375 Disch Hosp >30min
--- NOTE | 2023-06-23 18:05 | PCA ---
call placed to physicians to set up transport for patient to [facility], physicians stated that they have to many long distance trips scheduled tonight. transportation set up for 9am tomorrow, [facility], Dr. Reis and brother Néstor aware of this plan.
[2023-06-23 21:58] VITALS: BP 147/86; PULSE 76
[2023-06-23 22:00] VITALS: BP 147/86; PULSE 76; RESP 16; TEMP 36.9; O2SAT 100
[2023-06-23] MEDS: Atorvastatin Calcium 40 MG Tablet PO (22:01)
[2023-06-23] MEDS: Ceftriaxone 1 GM/50 ML BAG IV (22:06)
[2023-06-24] MEDS: Acetaminophen 325 MG Tablet 650 MG PO (00:33)
[2023-06-24] MEDS: MELATONIN 3 MG TABLET PO (00:33)
[2023-06-24 02:12] VITALS: BMI 23.6
[2023-06-24 04:00] VITALS: BP 123/70; PULSE 50; RESP 16; TEMP 36.6; O2SAT 95
[2023-06-24] MEDS: Levothyroxine 25 MCG TABLET PO (05:23)
[2023-06-24] MEDS: Ondansetron 4 MG/2 ML Vial IV (05:26)
--- NOTE | 2023-06-24 06:47 | PCM.HOSP.N ---
Hospitalist Note Discharge was delayed until this morning between 8 and 9 AM due to lack of transport to [facility].
[2023-06-24 08:12] VITALS: BP 128/62; PULSE 62; RESP 16; TEMP 36.5; O2SAT 97
[2023-06-24] MEDS: Potassium Chloride Oral Tablet 20 MEQ PO (08:15)
[2023-06-24] MEDS: Pantoprazole Sodium 40 MG Tablet PO (08:16)
[2023-06-24] MEDS: DULoxetine Hcl 30 MG Capsule PO (08:16)
[2023-06-24] MEDS: DULoxetine Hcl 60 MG Capsule PO (08:16)
[2023-06-24] MEDS: Ferrous Sulfate 325 MG Tablet PO (08:16)
[2023-06-24] MEDS: Clopidogrel Bisulfate 75 MG Tablet PO (08:20)
[2023-06-24 08:21] VITALS: BP 128/62; PULSE 62
[2023-06-24] MEDS: dilTIAZem CD 240 MG Capsule PO (08:21)
[2023-06-24] MEDS: Metoprolol Tartrate 100 MG Tablet PO (08:21)
[2023-06-24] MEDS: APIXABAN 5 MG TABLET PO (08:21)
[2023-06-24] MEDS: Amiodarone 200 MG Tablet 100 MG PO (08:21)
[2023-06-24] MEDS: Furosemide 40 MG Tablet PO (08:22)
[2023-06-24] MEDS: Isosorbide Mononitrate 60 MG Tablet PO (08:22)
[2023-06-24] MEDS: QUEtiapine 25 MG Tablet PO (08:25)
--- NOTE | 2023-06-24 09:53 | CASEMGMT ---
Addendum entered by Sallie Rao 06/24/23 10:17: Social Work Pt's son called back, he was aware pt went to [facility] in [place], KOKO let him know she went about 8:45 this morning. KOKO did also inquire if Richard is still staying w/him, Arya confirms he is staying w/Arya and his . No further needs at this time. NESTOR Galindo Original Note: Social Work Pt was discharged to [facility] today. [facility]O called [facility] to let them know. SW spoke w/Marcela, she states that as per their information, Richard is with his uncle Arya Puri. Because he is with a family member, they will not open a case as Richard's basic needs are being met. Marcela states if we find out anything different to call back. KOKO called [facility], spoke w/Shobha. Son Arya was not informed of pt's placement. KOKO called Arya to let him know, message left. KOKO will await call back. NESTOR Galindo
== END 2023-06-24 08:50 | DRG 193 ==
LOC: ED 21:22 → MS3 22:14
PROVIDERS: Internal Medicine; Nurse Practitioner; Admitting Provider Family Medicine; Emergency Provider Emergency Medicine; PCP Internal Medicine; Visit Provider Internal Medicine
DX: J15.4 Pneumonia due to other streptococci (principal); G93.41 Metabolic encephalopathy; G92.8 Other toxic encephalopathy; I13.0 Hypertensive heart and chronic kidney disease with heart failure and stage 1 through stage 4 chronic kidney disease, or unspecified chronic kidney disease; I42.8 Other cardiomyopathies; I50.22 Chronic systolic (congestive) heart failure; N18.4 Chronic kidney disease, stage 4 (severe); N30.00 Acute cystitis without hematuria; D63.8 Anemia in other chronic diseases classified elsewhere; F03.90 Unspecified dementia, unspecified severity, without behavioral disturbance, psychotic disturbance, mood disturbance, and anxiety; I48.0 Paroxysmal atrial fibrillation; M05.50 Rheumatoid polyneuropathy with rheumatoid arthritis of unspecified site; I73.9 Peripheral vascular disease, unspecified; E03.9 Hypothyroidism, unspecified; K21.9 Gastro-esophageal reflux disease without esophagitis; G47.33 Obstructive sleep apnea (adult) (pediatric); I25.10 Atherosclerotic heart disease of native coronary artery without angina pectoris; D50.9 Iron deficiency anemia, unspecified; F41.8 Other specified anxiety disorders; E78.5 Hyperlipidemia, unspecified; Z87.891 Personal history of nicotine dependence; Z51.5 Encounter for palliative care; Z82.3 Family history of stroke; Z95.5 Presence of coronary angioplasty implant and graft; Z79.02 Long term (current) use of antithrombotics/antiplatelets; Z79.01 Long term (current) use of anticoagulants; Z95.0 Presence of cardiac pacemaker; Z66 Do not resuscitate; Z86.16 Personal history of COVID-19; R45.1 Restlessness and agitation
CPT/HCPCS: 36415; 70450; 71045; 80048; 80053; 80076; 80307; 81001; 83735; 84100; 84145; 84439; 84443; 84484; 85025; 87449; 87631; 87633; 93005; 94640; 94668; 97116; 97161; 97165; 97530; 99284; J7040; A4216; J2405

== ENCOUNTER → 2023-08-04 | Outpatient (CLI) | payer MEDICARE, MEDICAID, SELFPAY ==
[2023-07-29 11:04] VITALS: BMI 29.5
[2023-08-04 12:44] LABS: Absolute Lymphocyte Count 1.02 X10^3/uL (0.83-4.51); Absolute Neutrophil Count 4.1 X10^3/uL (2.0-7.7); Basophil# 0.03 X10^3/uL; Basophil% 0.5 % (0-1); Eosinophils% 3.4 % (0-5); Hematocrit 29.4 % (37-47); Hemoglobin 9.3 g/dL (12.0-15.0); Lymphocyte # 1.02 X10^3/ul (0.83-4.51); Lymphocyte % 17.5 % (19-41); Mean Corp Hgb Conc 31.6 g/dL (32-36); Mean Corpuscular Hgb 29.1 pg (27.0-32.0); Mean Corpuscular Volume 91.9 fL (81-99); Mean Platelet Vol. 10.5 fl (6.2-12.0); Monocyte# 0.49 X10^3/uL; Monocyte% 8.4 % (0-10); NRBC Flagged by Analyzer 0 % (0-5); Neutrophil # 4.07 X10^3/uL (2.7-7.7); Neutrophil % 69.9 % (47-70); Platelet Count 243 K/mm3 (150-450); RBC Distribution Width CV 14.8 % (11.6-14.6); RBC Distribution Width SD 48.3 fl (35.1-43.9); White Blood Count 5.8 K/mm3 (4.4-11.0)
[2023-08-04 13:07] LABS: ALB/GLOB Ratio 1.1 RATIO (0.9-2.4); AST(SGOT) 9 U/L (15-37); Alanine Aminotransfer ALT/SGPT 12 U/L (13-56); Albumin, Serum 3.6 g/dL (3.2-5.0); Alkaline Phosphatase 89 U/L (45-117); Anion Gap 7 (5-15); BUN 41 mg/dL (7-18); BUN/Creat Ratio 14.2 RATIO (10-20); Calcium,Total 9.3 mg/dL (8.5-10.1); Chloride 99 mmol/L (98-107); Creatinine, Serum 2.88 mg/dL (0.55-1.02); EST Glomerular Filtration Rate 17 mL/min (>60); Est Glom Filt Rate - Afr Amer 21 mL/min (>60); Globulin 3.3 g/dL (2.2-4.2); Glucose 101 mg/dL (74-106); Potassium 5.6 mmol/L (3.5-5.1); Protein, Total 6.9 g/dL (6.4-8.2); Sodium Level 133 mmol/L (136-145)
== END | disposition home or self-care (01) ==
LOC: BIMLAB 10:18
PROVIDERS: PCP Internal Medicine; Visit Provider Internal Medicine
DX: I25.10 Atherosclerotic heart disease of native coronary artery without angina pectoris (principal); I50.20 Unspecified systolic (congestive) heart failure
CPT/HCPCS: 36415; 80053; 85025

== ENCOUNTER → 2023-08-19 | Outpatient (CLI) | payer MEDICARE, MEDICAID, SELFPAY ==
[2023-07-29 11:04] VITALS: BMI 29.5
[2023-08-19 12:29] LABS: Absolute Lymphocyte Count 0.67 X10^3/uL (0.83-4.51); Absolute Neutrophil Count 3.4 X10^3/uL (2.0-7.7); Basophil# 0.03 X10^3/uL; Basophil% 0.6 % (0-1); Eosinophil# 0.18 X10^3/uL; Eosinophils% 3.9 % (0-5); Hematocrit 32.1 % (37-47); Hemoglobin 9.8 g/dL (12.0-15.0); Lymphocyte # 0.67 X10^3/ul (0.83-4.51); Lymphocyte % 14.5 % (19-41); Mean Corp Hgb Conc 30.5 g/dL (32-36); Mean Corpuscular Hgb 29.3 pg (27.0-32.0); Mean Corpuscular Volume 95.8 fL (81-99); Mean Platelet Vol. 10.2 fl (6.2-12.0); Monocyte# 0.31 X10^3/uL; Monocyte% 6.7 % (0-10); NRBC Flagged by Analyzer 0 % (0-5); Neutrophil # 3.42 X10^3/uL (2.7-7.7); Neutrophil % 73.9 % (47-70); Platelet Count 189 K/mm3 (150-450); RBC Distribution Width CV 15.8 % (11.6-14.6); RBC Distribution Width SD 54.8 fl (35.1-43.9); Red Blood Count 3.35 M/mm3 (4.2-5.4); White Blood Count 4.6 K/mm3 (4.4-11.0)
[2023-08-19 13:16] LABS: Anion Gap 5 (5-15); BUN 28 mg/dL (7-18); BUN/Creat Ratio 14.4 RATIO (10-20); Calcium,Total 8.7 mg/dL (8.5-10.1); Chloride 110 mmol/L (98-107); Creatinine, Serum 1.95 mg/dL (0.55-1.02); EST Glomerular Filtration Rate 27 mL/min (>60); Est Glom Filt Rate - Afr Amer 32 mL/min (>60); Ferritin 140 ng/mL (8-252); Glucose 88 mg/dL (74-106); Iron 36 ug/dL (50-170); Iron Binding Capacity,Total 304 ug/dL (250-450); PERCENT IRON SATURATION 11.8 % (15.0-55.0); Sodium Level 139 mmol/L (136-145)
== END | disposition home or self-care (01) ==
LOC: BIMLAB 09:55
PROVIDERS: PCP Internal Medicine; Referring Provider Internal Medicine; Visit Provider Internal Medicine
DX: D64.9 Anemia, unspecified (principal); N17.9 Acute kidney failure, unspecified
CPT/HCPCS: 36415; 80048; 82728; 83540; 83550; 85025

== ENCOUNTER → 2023-09-04 | Outpatient (CLI) | payer MEDICARE, SELFPAY ==
[2023-07-29 11:04] VITALS: BMI 29.5
[2023-09-04 15:24] LABS: Absolute Lymphocyte Count 0.59 X10^3/uL (0.83-4.51); Absolute Neutrophil Count 4.8 X10^3/uL (2.0-7.7); Basophil# 0.04 X10^3/uL; Basophil% 0.7 % (0-1); Eosinophil# 0.05 X10^3/uL; Eosinophils% 0.9 % (0-5); Hematocrit 39.4 % (37-47); Hemoglobin 12.3 g/dL (12.0-15.0); Lymphocyte # 0.59 X10^3/ul (0.83-4.51); Lymphocyte % 10.3 % (19-41); Mean Corp Hgb Conc 31.2 g/dL (32-36); Mean Corpuscular Hgb 29.3 pg (27.0-32.0); Mean Corpuscular Volume 93.8 fL (81-99); Mean Platelet Vol. 10.9 fl (6.2-12.0); Monocyte# 0.29 X10^3/uL; Monocyte% 5.1 % (0-10); NRBC Flagged by Analyzer 0 % (0-5); Neutrophil # 4.75 X10^3/uL (2.7-7.7); Neutrophil % 82.7 % (47-70); POSITIVE DIFFERENTIAL YES; Platelet Count 227 K/mm3 (150-450); RBC Distribution Width SD 47.8 fl (35.1-43.9); White Blood Count 5.7 K/mm3 (4.4-11.0)
[2023-09-04 15:46] LABS: Anion Gap 9 (5-15); BUN 20 mg/dL (7-18); BUN/Creat Ratio 12.6 RATIO (10-20); Calcium,Total 9.3 mg/dL (8.5-10.1); Chloride 106 mmol/L (98-107); Creatinine, Serum 1.59 mg/dL (0.55-1.02); EST Glomerular Filtration Rate 34 mL/min (>60); Est Glom Filt Rate - Afr Amer 41 mL/min (>60); Glucose 99 mg/dL (74-106); Sodium Level 140 mmol/L (136-145)
[2023-09-04 15:58] LABS: ALB/GLOB Ratio 1.2 RATIO (0.9-2.4); AST(SGOT) 19 U/L (15-37); Alanine Aminotransfer ALT/SGPT 14 U/L (13-56); Alkaline Phosphatase 91 U/L (45-117); Anion Gap 8 (5-15); BUN 20 mg/dL (7-18); BUN/Creat Ratio 12.6 RATIO (10-20); Calcium,Total 9.5 mg/dL (8.5-10.1); Chloride 106 mmol/L (98-107); Creatinine, Serum 1.59 mg/dL (0.55-1.02); EST Glomerular Filtration Rate 34 mL/min (>60); Est Glom Filt Rate - Afr Amer 41 mL/min (>60); Globulin 3.4 g/dL (2.2-4.2); Glucose 96 mg/dL (74-106); Protein, Total 7.4 g/dL (6.4-8.2); Sodium Level 139 mmol/L (136-145); Thyroid Stim Hormone (TSH) 2.98 uIU/mL (0.358-3.74)
== END | disposition home or self-care (01) ==
LOC: BIMLAB 12:01
PROVIDERS: Nurse Practitioner Gerontology; PCP Internal Medicine; Referring Provider Internal Medicine; Visit Provider Internal Medicine
DX: G25.81 Restless legs syndrome (principal); E03.9 Hypothyroidism, unspecified; I25.10 Atherosclerotic heart disease of native coronary artery without angina pectoris; E87.5 Hyperkalemia; N17.9 Acute kidney failure, unspecified
CPT/HCPCS: 36415; 80048; 80053; 84443; 85025

== ENCOUNTER → 2023-09-05 | Outpatient (CLI) | payer MEDICARE, SELFPAY ==
[2023-07-29 11:04] VITALS: BMI 29.5
--- NOTE | 2023-09-05 12:37 | CT_ITS ---
EXAM: CT CHEST, LUNG CANCER SCREENING WITHOUT INTRAVENOUS CONTRAST CLINICAL INDICATION: 40 pack years, quit 2019 TECHNIQUE: Helically acquired images were obtained of the chest without intravenous contrast using low dose (LDCT) lung cancer screening protocol. This CT exam was performed using one or more of the following dose reduction techniques: automated exposure control, adjustment of the mA and/or kV according to patient size, and/or use of iterative reconstruction technique. COMPARISON: CT chest, 05/23/[address] lung cancer screening, 06/11/2022. FINDINGS: LUNGS AND PLEURAL SPACES: Mild centrilobular emphysema is identified. Calcified pulmonary nodule in the left upper lobe. Calcified pulmonary nodule in the superior segment of the left lower lobe. Noncalcified 3 mm parenchymal nodule in the left lower lobe (series 2, image 120) which is new compared to the most recent prior examination dated 06/11/2021. No pleural effusion or thickening. No pneumothorax. HEART: Coronary artery calcifications. Heart size is normal. No pericardial effusion. MEDIASTINUM: No significant abnormality. No mediastinal or hilar adenopathy. Esophagus is unremarkable. No hiatal hernia. THYROID: No significant abnormality. No thyroid lesions. BONES/JOINTS: No significant abnormality. No suspicious lytic or blastic abnormality. VASCULATURE: Partially visualized infrarenal abdominal aortic aneurysm with stent graft in place. Insofar visualized, this is unchanged from prior exams. Follow-up as clinically indicated. Atherosclerosis of the aorta. LYMPH NODES: No significant abnormality. No enlarged lymph nodes. TUBES, LINES AND DEVICES: Left-sided cardiac device. CT/Low Dose CT Lung Screening IMPRESSION: 1. ACR Lung CT Screening Reporting And Data System (Lung-RADS) score: 2S - Benign Appearance or Behavior. Additional clinically significant or potentially clinically significant findings are described. Recommend continued annual screening with a low-dose CT (LDCT) in 12 months. 2. Partially visualized infrarenal abdominal aortic aneurysm with stent graft in place. Insofar visualized, this is unchanged from prior exams. Follow-up as clinically indicated. 3. Mild centrilobular emphysema is identified. Electronically Signed: Walter Montes DO at 20:00 EDT ,
== END | disposition home or self-care (01) ==
LOC: CT 12:35
PROVIDERS: PCP Internal Medicine; Referring Provider Internal Medicine; Visit Provider Internal Medicine
DX: F17.219 Nicotine dependence, cigarettes, with unspecified nicotine-induced disorders (principal)
CPT/HCPCS: 71271

== ENCOUNTER → 2023-12-04 | Outpatient (CLI) | payer MEDICARE, SELFPAY ==
[2023-07-29 11:04] VITALS: BMI 29.5
[2023-12-04 11:33] LABS: Mucous, Urine 0 SEEN /hpf (<or=2+)
[2023-12-04 12:38] LABS: Absolute Lymphocyte Count 0.75 X10^3/uL (0.83-4.51); Absolute Neutrophil Count 5.5 X10^3/uL (2.0-7.7); Basophil# 0.02 X10^3/uL; Basophil% 0.3 % (0-1); Eosinophil# 0.11 X10^3/uL; Eosinophils% 1.6 % (0-5); Hematocrit 36.9 % (37-47); Hemoglobin 11.5 g/dL (12.0-15.0); Lymphocyte # 0.75 X10^3/ul (0.83-4.51); Lymphocyte % 10.9 % (19-41); Mean Corp Hgb Conc 31.2 g/dL (32-36); Mean Corpuscular Hgb 29.4 pg (27.0-32.0); Mean Corpuscular Volume 94.4 fL (81-99); Mean Platelet Vol. 11.7 fl (6.2-12.0); Monocyte# 0.38 X10^3/uL; Monocyte% 5.5 % (0-10); NRBC Flagged by Analyzer 0 % (0-5); Neutrophil # 5.51 X10^3/uL (2.7-7.7); Platelet Count 158 K/mm3 (150-450); RBC Distribution Width CV 15.1 % (11.6-14.6); RBC Distribution Width SD 51.7 fl (35.1-43.9); Red Blood Count 3.91 M/mm3 (4.2-5.4); White Blood Count 6.9 K/mm3 (4.4-11.0)
[2023-12-04 12:43] LABS: ALB/GLOB Ratio 1.1 RATIO (0.9-2.4); AST(SGOT) 21 U/L (15-37); Alanine Aminotransfer ALT/SGPT 33 U/L (13-56); Albumin, Serum 3.4 g/dL (3.2-5.0); Alkaline Phosphatase 115 U/L (45-117); Anion Gap 8 (5-15); BUN 28 mg/dL (7-18); BUN/Creat Ratio 13.5 RATIO (10-20); Calcium,Total 8.9 mg/dL (8.5-10.1); Chloride 109 mmol/L (98-107); Creatinine, Serum 2.08 mg/dL (0.55-1.02); EST Glomerular Filtration Rate 25 mL/min (>60); Est Glom Filt Rate - Afr Amer 30 mL/min (>60); Globulin 3.1 g/dL (2.2-4.2); Glucose 90 mg/dL (74-106); Potassium 4.6 mmol/L (3.5-5.1); Protein, Total 6.5 g/dL (6.4-8.2); Sodium Level 142 mmol/L (136-145)
[2023-12-04 15:03] LABS: Color, Urine Yellow (Yellow); Glucose, Dipstick 250 mg/dl (Normal); Ketone-Dipstick Negative (Negative); Leukocyte Esterase-Dipstick 100 /ul (Negative); Nitrite-Dipstick Negative (Negative); Occult Blood-Urine Negative /ul (Negative); Protein-Dipstick 15 mg/dl (Negative); Specific Gravity, Urine 1.015 (1.002-1.030); Urine Bilirubin Dipstick Negative (Negative); Urine Clarity Clear (Clear); Urine Urobilinogen 1 mg/dl (Normal)
[2023-12-04 15:14] LABS: White Blood Cells 5-10 SEEN /hpf (0-5)
[2023-12-04 15:15] LABS: Bacteria RARE /hpf (None Seen); Red Blood Cells-Urine 0-5 SEEN /hpf (0-5); Squamous Epithelial Cells - UA 0-5 SEEN /hpf (5-10); Transitional Epithelial - Ur 0-5 SEEN /hpf (0-5)
== END | disposition home or self-care (01) ==
LOC: BIMLAB 11:25
PROVIDERS: PCP Internal Medicine; Referring Provider Nurse Practitioner; Visit Provider Nurse Practitioner
DX: R42 Dizziness and giddiness (principal)
CPT/HCPCS: 36415; 80053; 81001; 85025

== ENCOUNTER → 2024-01-06 | Outpatient (CLI) | payer MEDICARE, SELFPAY ==
[2019-07-16 09:26] VITALS: BMI 29.5
[2023-07-29 11:04] VITALS: BMI 29.5
--- OUTSIDE RECORDS SUMMARY | 2024-01-06 06:40 | XMS RPT_ITS | CCD ---
Author Organization [facility] Inform ion Partnership 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 Name Role Phone Abigail JEAN-BAPTISTE, Cathi Hinojosa Primary Care Provider Abigail JEAN-BAPTISTE, Cathi Hinojosa Primary Care Provider Ector Jewell MD(Historical) Primary Care Provi mariya Unavailable Anitra JEAN-BAPTISTE, Alexandre Yeager Primary Care Provider [phone] Keith JEAN-BAPTISTE, Lana Unavailable Alexandre Ayoub MD Primary Care Provider Keith JEAN-BAPTISTE, Lana Unavailable Kamila, [place] Unavailable Zcak Tobar Unavailable KEITH, LANA Attending Unavailable ANITRA, [...] ALEXANDRE Primary Care Unavailable Anitra JEAN-BAPTISTE, Alexandre Shobha Primary Care Provider Keith JEAN-BAPTISTE, Lana Unavailable [phone] Kamila, [place] Unavailable Zack Tobar Unavailable Cathi Hayes MD Primary Care Provider Cathi Hayes MD Primary Care Provider Allergies Allergy Classification Reported Allergen(s) Allergy Type Date of Onset Reaction(s) Facility (9 sources) Lisinopril Drug Allergy 0 Other: See Comments [facility] (13 sources) Lisinopril Allergy to substance 0 [facility] Medications Current Medications Medication Drug Class(es) Dates Sig (Normalized) Sig (Original) acetaminophen 325 mg / oxyCODONE hydrochloride 5 mg oral tablet (2 sources) Opioid Agonist Start: 07-09-2022 End: 07-14-2022 take 1 tablet by mouth every six hours as needed for pain oxyCODONE-acetam inophen (Percocet) 5-325 MG tablet Indications: Infrarenal abdominal aortic aneurysm (AAA) without rupture (HCC) Take 1 tablet by mouth every 6 hours as needed for severe pain (7-10) for up to 5 days. 20 tablet 0 07/09/2022 07/14/2022 Active amLODIPine 2.5 mg oral tablet (20 sources) Dihydropyridine Calcium Channel Alyssa Start: 12-01-2020 End: 05-07-2023 take 1 tablet by mouth once daily amLODIPine (NORVASC) 2.5 mg tablet Take 2.5 mg by mouth once daily. 0 12/01/2020 Active Start: 02-18-2020 End: 04-28-2020 take 1 tablet by mouth once daily amLODIPine (NORVASC) 10 mg tablet Take 1 tablet by mouth once daily. 30 tablet 5 02/18/2020 04/28/2020 Discontinued Comment on above: Take 2.5 mg by mouth once daily. aspirin 81 mg chewable tablet (5 sources) Platelet Aggregation Inhibitor, Nonsteroidal Anti-inflammatory Drug Start: 3 End: 3 aspirin 81 MG chewable tablet Chew 1 tablet (81 mg) daily. Do not start before July 11, 2022. 30 tablet 0 07/11/2022 08/10/2022 Active atorvastatin 40 mg oral tablet (20 sources) HMG-CoA Reductase Inhibitor Start: 0 End: 4 take 1 tablet by mouth once daily atorvastatin (LIPITOR) 40 mg tablet Take 1 tablet by mouth once daily. 90 tablet 3 02/08/2020 Active Comment on above: Take 1 tablet by vi th once daily. BIPAP (8 sources) Start: BIPAP Indications: BELLE (obstructive sleep apnea) Initiate BiPAP @ 9/5 cm of water with humidification. Mask (per patient preference) optional chin strap (if indicated) , filters, tubing, humidifier and lifetime supplies. 1 Device 07/21/2020 Active Start: 07-21-2020 BIPAP Indicati ons: BELLE (obstructive sleep apnea) Initiate BiPAP @ 9/5 cm of water with humidification. Mask (per patient preference) optional chin strap (if indicated) , filters, tubing, humidifier and lifetime supplies. 1 Device 0 07/21/2020 Active Comment on above: Initiate BiPAP @ 9/5 cm of water with humidification. Mask (per patient preference) optional chin strap (if indicated) , filters, tubing, humidifier and lifetime supplies. cholecalciferol 0.025 mg oral capsule (20 sources) Vitamin D take 1 capsule by mouth once daily Cholecalciferol, Vitamin D3, (VITAMIN D) 1,000 unit cap Take 1,000 Units by mouth once daily. Active take 1 capsule by mouth in the m orning cholecalciferol (Vitamin D-3) 25 MCG (1000 UT) capsule Take 1,200 Units by mouth in the morning. 0 Active take 1 capsule by mouth in the m orning cholecalciferol (Vitamin D-3) 25 MCG (1000 UT) capsule Take 1,000 Units by mouth in the morning. 0 Active Comment on above: Take 1,000 Units by mouth once daily. dapagliflozin 10 mg oral tablet (2 sources) Sodium-Glucose Cotransporter 2 Inhibitor take 1 tablet by mouth once daily dapagliflozin (Farxiga) 10 MG tablet Take 10 mg by mouth daily. 0 Active 24 hr dilTIAZem hydrochloride 240 mg extended release oral tablet (2 sources) Calcium Channel Alyssa take 1 tablet by mouth once daily dilTIAZem HCl ER 240 MG tablet sustained-release 24 hour Take 240 mg by mouth daily. 0 Active ferrous sulfate 325 mg oral tablet (17 sources) take 1 tablet by mouth twice daily at mealtime ferrous sulfate 325 mg (65 mg iron) tablet Take 325 mg by mouth twice daily with meals. 0 Active Comment on above: Take 325 mg by mouth twice daily with meals. 60 actuat fluticasone propionate 0.5 mg/actuat / salmeterol 0.05 mg/actuat dry powder inhaler (20 sources) Corticosteroid, beta2-Adrenergic Agonist Start: 020 take 1 puff(s) by inhalation once daily ADVAIR DISKUS 500-50 mcg/dose dsdv Inhale 1 Puff as instructed once daily. 1 Inhaler 6 11/17/2019 Active take 1 puff(s) by in halation twice daily fluticasone-salmeterol (WIXELA INHUB) 50 0-50 mcg/dose dsdv Inhale 1 Puff as instructed twice daily. Active take 1 puff(s) by in halation in the morning Fluticasone-Salmeterol 500-50 MCG/ACT ae rosol powder Inhale 1 puff in the morning and 1 puff in the evening. 0 Active take 1 puff(s) by in halation twice daily fluticasone-salmeterol (WIXELA INHUB) 50 0-50 mcg/dose dsdv Inhale 1 Puff as instructed twice daily. 0 Active take 1 puff(s) by in halation twice daily fluticasone-salmeterol (WIXELA INHUB) 50 0-50 mcg/dose dsdv Inhale 1 Puff as instructed twice daily. 0 Active Comment on above: Inhale 1 Puff as ins tructed once daily. Inhale 1 Puff as ins tructed twice daily. 24 hr isosorbide mononitrate 60 mg extended release oral tablet (20 sources) Nitrate Vasodilator Start: 11-18-19 20 End: 05-07-19 24 take 1 tablet by mouth once daily isosorbide mononitrate ER (IMDUR) 60 mg 24 hr tablet Take 1 tablet by mouth once daily. 90 tablet 1 11/18/2019 Active Comment on above: Take 1 tablet by once daily. levothyroxine sodium 0.025 mg oral tablet (2 sources) l-Thyroxine take 1 tablet by mouth once daily before breakfast levothyroxine (Synthroid, Levoxyl) 25 MCG tablet Take 25 mcg by mouth every morning (before breakfast). 0 Active lidocaine 0.05 mg/mg medicated patch (20 sources) Antiarrhythmic, Amide Local Anesthetic lidocaine (LIDODERM) 5 %(700 mg/patch) Apply 1 Patch as directed every 12 hours. Active End: 05-07-2023 apply 1 dose transdermal route in the morning lidocaine (Lidoderm) 5 % patch Place 1 patch on the skin in the morning and 1 patch in the evening. 0 05/07/2023 Discontinued (Stop taking at discharge) Comment on above: Apply 1 Patch as dir ected every 12 hours. Multiple Vitamin (MULTIVITAMIN ADULT PO) (13 sources) take 1 capsule by mouth in the morning Multiple Vitamin (MULTIVITAMIN ADULT PO) Take 1 capsule by mouth in the morning. 0 Active Multivitamin capsule (9 sources) take 1 capsule by mouth once daily Multivitamin capsule Take 1 capsule by mouth once daily. Active take 1 capsule by mouth once [address] Multivitamin capsule Take 1 capsule by mouth once daily. 0 Active Comment on above: Take 1 capsule by mo [facility] once daily. nitroglycerin 0.4 mg sublingual tablet (20 sources) Nitrate Vasodilator Start: 02-19-2022 nitroglycerin (Nitrostat) 0.4 MG SL tablet 0.4 mg sublingually every 5 minutes As Needed for Chest Pain 0 02/19/2022 Active Start: 12-02-2019 nitroglycerin sublingual (NITROSTAT) 0.4 mg SL tablet Dissolve 1 tablet under the tongue as needed. FOR CHEST PAIN. IF NO RELIEF CALL 911 25 tablet 3 12/02/2019 Active Comment on above: Dissolve 1 tablet un mariya the tongue as needed. FOR CHEST PAIN. IF NO RELIEF CALL 911 spironolactone 25 mg oral tablet (2 sources) Aldosterone Antagonist take 1 tablet by mouth once daily spironolactone (Aldactone) 25 MG tablet Take 25 mg by mouth daily. 0 Active tiotropium 0.018 mg inhalation powder (2 sources) Anticholinergic take 1 capsule by inhalation once daily in the morning tiotropium (Spiriva) [address] 1 capsule into inhaler and inhale in the morning. 2 puffs daily. 0 Active vitamin e 100 unt oral tablet (13 sources) Vitamin E 100 un its tablet by Other route. 0 Active VITAMIN E, BULK, MISC (9 sources) VITAMIN E, BULK, MISC Active VITAMIN E, BULK, MISC zinc gluconate 50 mg oral tablet (2 sources) take 1 tablet by vi th once daily zinc gluconate 50 MG tablet Take 50 mg by mouth daily. 0 Active Completed/Discontinued Medications Medication Drug Class(es) Dates Sig (Normalized) Sig (Original) Acetaminophen (20 sources) Start: 05-07-2023 End: 05-07-2023 take 1 tablet by mouth every six hours as needed for pain and fever acetaminophen (Tylenol) tablet 650 mg Start: 07-05-2022 End: 07-05-2022 acetaminophen (Tylenol) tabl et 1,000 mg take 1 tablet by vi th every six hours as needed acetaminophen (TYLENOL EXTRA STRENGTH) 500 mg tablet Take 500 mg by mouth every 6 hours as needed. Active Comment on above: Take 500 mg by mouth every 6 hours as needed. [id number] 200 actuat albuterol 0.09 mg/actuat metered dose inhaler (20 sources) beta2-Adrenergic Agonist Start: 05-07-2023 End: 05-07-2023 take 2 puff(s) by inhalation every four hours as needed for wheezing 2 puff, Inhalation, Every 4 hours PRN, wheezing, Starting on Fri05/07/23 at 0447 Start: 07-05-2022 End: 07-10-2022 take 2 puff(s) by inhalation every four hours as needed for wheezing 2 puff, Inhalation, Every 4 hours PRN, wheezing, Starting on Fri07/05/22 at 1431, Phase II/On Unit Start: 12-01-2020 take 1-2 puff(s) by mouth every four hours as needed for dyspnea albuterol 108 (90 Base) MCG/ACT inhaler Inhale 1 - 2 puffs by mouth every 4 hours as needed for Dyspnea, wheezing 0 04/04/2022 Active ALBUTEROL SULFAT E (VENTOLIN HFA INHALATION) Inhale 1 Puff as instructed as needed. Active ALBUTEROL SULFAT E (VENTOLIN HFA INHALATION) Inhale 1 Puff as instructed as needed. 0 Active Comment on above: Inhale 1 Puff as ins tructed as needed. INHALE 1-2 PUFFS STUART RY FOUR HOURS NEEDED FOR DYSPNEA/WHEEZING ALPRAZolam 0.25 mg disintegrating oral tablet (2 sources) Benzodiazepine Start: 07-06-19 End: 07-06-19 ALPRAZolam (Xanax) disintegrating tablet 0.25 mg amiodarone hydrochloride 200 mg oral tablet (20 sources) Antiarrhythmic Start: 05-07-19 End: 05-07-19 take 200 mg by mouth once daily 200 mg, Oral, Daily, First dose on Fri05/07/23 at 0900 Start: 02-19-2022 amiodarone (Pa cerone) 200 MG tablet Take 100 mg by mouth daily. 0 02/19/2022 Active Start: 02-19-2022 End: 07-10-2022 take 1 tablet by mouth once daily amiodarone (Pacerone) 200 MG tablet Take 200 mg by mouth daily. 0 02/19/2022 Active Start: 12-01-2020 take 1 tablet by vi th twice daily, then take 1 tablet by mouth once daily amiodarone (PACERONE) 200 mg tablet TAKE 1 TABLET BY MOUTH TWICE DAILY for 2 (TWO) weeks, then TAKE 1 TABLET EVERY DAY thereafter. 0 12/01/2020 Active Comment on above: TAKE 1 TABLET BY VI TH TWICE DAILY for 2 (TWO) weeks, then TAKE 1 TABLET EVERY DAY thereafter. amitriptyline hydrochloride 25 mg oral tablet (1 source) Tricyclic Antidepressant Start: 03-08-20 End: 04-28-19 take 3 tablets by mouth once daily at bedtime amitriptyline (ELAVIL) 25 mg tablet Take 3 tablets by mouth daily at bedtime. 90 tablet 1 03/08/2020 04/28/2020 Discontinued apixaban 5 mg oral tablet (16 sources) Factor Xa Inhibitor Start: 05-07-19 End: 05-07-19 take 5 mg by mouth twice daily 5 mg, Oral, 2 times daily, First dose on Fri05/07/23 at 1300, Anticoagulant Start: 03-19-2022 End: 07-10-2022 take 1 tablet by mouth twice daily Eliquis 5 MG tablet TAKE 1 TABLET BY MOUTH TWICE DAILY (blood thinner) 0 03/19/2022 Active ascorbic acid 500 mg chewable tablet (20 sources) Vitamin C Start: 05-07-2023 End: 05-07-2023 take 500 mg by mouth once daily 500 mg, Oral, Daily, First dose on Fri05/07/23 at 0800 take 1 tablet by mouth once keanu y ascorbic acid, vitamin C, (VITAMIN C) 500 mg tablet Take 500 mg by mouth once daily. Active Comment on above: Take 500 mg by mouth once daily. busPIRone hydrochloride 10 mg oral tablet (20 sources) Start: 12-07-2020 End: 05-07-2023 take 10 mg by mouth three times daily 10 mg, Oral, 3 times daily, First dose on Fri05/07/23 at 0900 Start: 09-07-2020 End: 09-19-2020 take 2 tablets by mouth twice daily busPIRone (BUSPAR) 5 mg tablet Indications: VEE (generalized anxiety disorder) Take 2 tablets by mouth twice daily. 360 tablet 1 09/07/2020 09/19/2020 Discontinued Comment on above: Take 1 tablet by vi three times daily. calcium chloride 0.0014 meq/ml / potassium chloride 0.004 meq/ml / sodium chloride 0.103 meq/ml / sodium lactate 0.028 meq/ml injectable solution (4 sources) Start: 05-07-2023 End: 05-07-2023 take 100 mL intravenously every hour 100 mL/hr, IntraVENous, Continuous, Starting on Fri05/07/23 at 0500 Start: 07-10-2022 End: 07-10-2022 lactated ringers bolus 500 m L carvedilol 6.25 mg oral tablet (1 source) alpha-Adrenergic Alyssa, beta-Adrenergic Alyssa Start: 12-24-2019 End: 04-12-2020 take 1 tablet by mouth twice daily carvedilol (COREG) 6.25 mg tablet Indications: Coronary artery disease involving [place] coronary artery of [place] heart without angina pectoris Take 1 tablet by mouth twice daily. 12/24/2019 04/12/2020 Discontinued ceFAZolin 2000 mg injection (2 sources) Cephalosporin Antibacterial Start: 07-06-2022 End: 07-06-2022 take 2000 mg intravenously every eight hours ceFAZolin in dextrose 4% (Ancef) IVPB 2,000 mg ceFAZolin (Ancef) 1,000 mg in sodium chloride 0.9 % 50 mL IVPB (2 sources) Start: 07-05-2022 End: 07-05-2022 take 1000 mg intravenously every eight hours ceFAZolin (Ancef) 1,000 mg in sodium chloride 0.9 % 50 mL IVPB cefTRIAXone (Rocephin) 1,000 mg in sodium chloride 0.9 % 50 mL IVPB Mini-Bag Plus (2 sources) Start: 05-07-2023 End: 05-07-2023 cefTRIAXone (Rocephin) 1,000 mg in sodium chloride 0.9 % 50 mL IVPB Mini-Bag Plus clopidogrel 75 mg oral tablet (20 sources) [id number] Platelet Inhibitor Start: 05-07-2023 End: 05-07-2023 take 75 mg by mouth once daily 75 mg, Oral, Nightly, First dose on Fri05/07/23 at 2100 Start: 05-07-2023 End: 05-07-2023 take 75 mg by mouth once daily 75 mg, Oral, Nightly, F irst dose on Fri05/07/23 at 2099 Start: 10-27-2019 End: 07-10-2022 take 1 tablet by mouth once daily clopidogrel (PLAVIX) 75 mg tablet Take 1 tablet by mouth once daily. 90 tablet 1 08/08/2020 05/16/2021 Discontinued Comment on above: Take 1 tablet by vi once daily. dicyclomine hydrochloride 10 mg oral capsule (20 sources) Anticholinergic Start: 02-16-20 End: 10-11-19 take 1 capsule by mouth at bedtime dicyclomine (BENTYL) 10 mg capsule Indications: Irritable bowel syndrome with both constipation and diarrhea Take 1 capsule by mouth before meals and at bedtime. 120 capsule 5 02/16/2020 10/10/2020 Discontinued Comment on above: Take 1 capsule by mo [facility] before meals and at bedtime. doxazosin 2 mg oral tablet (1 source) alpha-Adrenergic Alyssa Start: 12-24-19 End: 04-11-19 doxazosin (CARDURA) 2 mg tablet Indications: Coronary artery disease involving [place] coronary artery of [place] heart without angina pectoris Take one tablet daily 12/24/2019 04/11/2020 Discontinued doxycycline monohydrate 100 mg oral capsule (2 sources) Tetracycline-class Drug Start: 05-07-19 End: 05-07-19 doxycycline (Monodox) capsule 100 mg DULoxetine 60 mg delayed release oral capsule (3 sources) Serotonin and Norepinephrine Reuptake Inhibitor Start: 12-24-19 End: 04-28-19 take 1 capsule by mouth once daily DULoxetine (CYMBALTA) 60 mg capsule Indications: Anxiety with depression Take 1 capsule by mouth once daily. 12/24/2019 04/28/2020 Discontinued DULoxetine (Cymb kimmie) [address] capsule Take 90 mg by mouth daily. Do not crush or chew. 0 Active famotidine 20 mg oral tablet (4 sources) Histamine-2 Receptor Antagonist Start: 07-05-2022 End: 07-05-2022 famotidine (Pepcid) tablet 20 mg Start: 12-02-2019 End: 12-25-2020 take 1 tablet by mouth twice daily famotidine (PEPCID) 20 mg tablet Take 1 tablet by mouth twice daily. 180 tablet 1 04/26/2020 12/25/2020 Discontinued furosemide 40 mg oral tablet (20 sources) Loop Diuretic Start: 05-07-2023 End: 05-07-2023 take 40 mg by mouth twice daily 40 mg, Oral, 2 times daily, First dose on Fri05/07/23 at 1300 Start: 05-07-2022 End: 07-10-2022 take 1 tablet by mouth twice daily furosemide (Lasix) 40 MG tablet Take 40 mg by mouth 2 times daily. 0 05/07/2022 Active Start: 07-24-2020 take 0.5 tablet by m outh twice daily furosemide (LASIX) 40 mg tablet Take 0.5 tablets by mouth twice daily. Added at recent hospital stay [facility]. 30 tablet 2 07/24/2020 Active Comment on above: Take 0.5 tablets by mouth twice daily. Added at recent hospital stay [facility]. gabapentin 300 mg oral capsule (20 sources) Anti-epileptic Agent Start: 05-07-2023 End: 05-07-2023 take 300 mg by mouth twice daily 300 mg, Oral, 2 times daily, First dose on Fri05/07/23 at 1300 Start: 03-19-2022 End: 07-10-2022 gabapentin (Neurontin) 300 M G capsule 1 cap at noon, 1 cap at 1600 ,and 2 caps at 2100 0 03/19/2022 Active Start: 12-25-2020 gabapentin (NE URONTIN) 300 mg capsule Indications: RLS (restless legs syndrome) Take 1 cap at lunch, 1 cap at dinner and 1-2 caps at bedtime. 120 capsule 5 12/25/2020 Active Start: 08-09-2020 End: 11-14-2020 gabapentin (NEURONTIN) 300 m g capsule Indications: RLS (restless legs syndrome) Take 1 cap at lunch, 1 cap at dinner and 1-2 caps at bedtime. 120 capsule 2 08/09/2020 11/14/2020 Discontinued Start: 12-26-2019 End: 04-11-2020 take 1 capsule by mouth three times daily gabapentin (NEURONTIN) 300 mg capsule Take 1 capsule by mouth three times daily for 90 days. 90 capsule 2 12/26/2019 04/11/2020 Discontinued Comment on above: Take 1 cap at lunch, 1 cap at dinner and 1-2 caps at bedtime. 1 ml hydrALAZINE hydrochloride 20 mg/ml injection (4 sources) Arteriolar Vasodilator Start: End: take 10 mg intravenously every four hours as needed for hypertension hydrALAZINE (Apresoline) injection 10 mg Start: 07-05-2022 End: 07-10-2022 10 mg, IntraVENous, Every 1 hour PRN, high blood pressure, Starting on Fri07/05/22 at 1713, Phase II/On Unit 2nd Line: Give for SBP GREATER than 140 mmHG and HR LESS than 110 BPM hydroCHLOROthiazide 25 mg oral tablet (1 source) Thiazide Diuretic Start: 12-13-2019 End: 05-26-2020 take 1 tablet by mouth once daily hydroCHLOROthiazide (HYDRODIURIL, ESIDRIX) 25 mg tablet Take 1 tablet by mouth once daily. 30 tablet 4 12/13/2019 05/26/2020 Discontinued 1 ml HYDROmorphone hydrochloride 1 mg/ml cartridge (6 sources) Opioid Agonist Start: 07-05-2022 End: 07-10-2022 take 0.5 mg by mouth every three hours as needed for pain 0.5 mg, IntraVENous, Every 3 hours PRN, severe pain (7-10), Starting on Fri07/05/22 at 1713, Phase II/On Unit If oral and IV narcotics ordered, use oral first and only use IV if oral is ineffective or cannot take oral. Do Not give oral and IV within 1 hour of each other unless specifically ordered. Start: 07-05-2022 End: 07-05-2022 HYDROmorphone (Dilaudid) inj ection 0.25 mg labetalol hydrochloride 5 mg/ml injectable solution (6 sources) beta-Adrenergic Alyssa Start: 05-07-2023 End: 05-07-2023 take 10 mg intravenously every four hours as needed for hypertension labetalol (Normodyne,Trandate) injection 10 mg Start: 07-05-2022 End: 07-05-2022 labetalol (Normodyne,Trandat e) injection 20 mg Start: 07-05-2022 End: 07-10-2022 10 mg, IntraVENous, Every 2 hour PRN, high blood pressure, Starting on Fri07/05/22 at 1713, Phase II/On Unit 1st Line: Give for SBP GREATER than 140 mmHG and HR GREATER than 60 BPM LORazepam 1 mg oral tablet (10 sources) Benzodiazepine Start: 05-07-2023 End: 05-07-2023 take 1 mg by mouth once daily 1 mg, Oral, Nightly, First dose on Fri05/07/23 at 2100 Start: 05-07-2023 End: 05-07-2023 take 1 mg by mouth once daily 1 mg, Oral, Nightly, Fir st dose on Fri05/07/23 at 2100 Start: 07-09-2022 End: 07-10-2022 LORazepam (Ativan) tablet 1 mg melatonin 3 mg oral tablet (5 sources) Start: 05-07-2023 End: 05-07-2023 take 3 mg by mouth once daily 3 mg, Oral, Nightly, First dose on Fri05/07/23 at 2100 Start: 05-07-2023 End: 05-07-2023 take 3 mg by mouth once daily 3 mg, Oral, Nightly, Fir st dose on Fri05/07/23 at 2100 Start: 07-08-2022 End: 07-10-2022 melatonin tablet 5 mg End: 04-28-2020 MELATONIN ORAL Take by mouth once daily. 04/28/2020 Discontinued metoprolol tartrate 100 mg oral tablet (20 sources) beta-Adrenergic Alyssa Start: 07-07-2022 metopr olol tartrate (Lopressor) injection 5 mg Start: 07-06-2022 End: 07-10-2022 take 100 mg by mouth twice daily 100 mg, Oral, 2 times daily, First dose on 07/06/22 at 0900, Phase II/On Unit Start: 04-24-2020 End: 05-07-2023 take 1 tablet by mouth twice daily metoprolol tartrate, short acting, (LOPRESSOR) 100 mg tablet Take 100 mg by mouth twice daily. 04/24/2020 Active Comment on above: Take 100 mg by mouth twice daily. multiple vitamin tablet (2 sources) Start: 023 End: take 1 tablet by mouth once daily 1 tablet, Oral, Daily, First dose on 07/06/22 at 1015 mupirocin 0.02 mg/mg topical ointment (1 source) RNA Synthetase Inhibitor Antibacterial Start: End: mupirocin (BACTROBAN) 2 % ointment Indications: Nasal sore Apply to affected area three times daily for 10 days. 22 g 09/05/2020 09/15/2020 ondansetron ODT (Zofran-ODT) disintegrating tablet 4 mg (4 sources) Start: 024 End: take 1 tablet by mouth every eight hours as needed for nausea and vomiting ondansetron ODT (Zofran-ODT) disintegrating tablet 4 mg Start: 07-05-2022 End: 07-10-2022 take 1 tablet by mouth every eight hours as needed for nausea and vomiting ondansetron ODT (Zofran-ODT) disintegrating tablet 4 mg oxyCODONE hydrochloride 5 mg oral tablet (2 sources) Opioid Agonist Start: 07-05-2022 End: 07-10-2022 take 1 tablet by mouth every four hours as needed for pain and pain 5 mg, Oral, Every 4 hours PRN, moderate pain (4-6), severe pain (7-10), Starting on Fri07/05/22 at 1713, Phase II/On Unit pantoprazole 40 mg delayed release oral tablet (20 sources) Proton Pump Inhibitor Start: 05-07-2023 End: 05-07-2023 take 40 mg by mouth once daily 40 mg, Oral, Daily, First dose on Fri05/07/23 at 0900, Do not crush, chew, or split. Start: 03-13-2022 End: 07-10-2022 take 1 tablet by mouth once daily pantoprazole (ProtoNix) 40 MG EC tablet Take 40 mg by mouth daily. 0 03/13/2022 Active pantoprazole (SC OTONIX) 40 mg grps polyethylene glycol 3350 18773 mg powder for oral solution (2 sources) Osmotic Laxative Start: 05-07-2023 End: 05-07-2023 take 1 dose by mouth every twenty-four hours for constipation 17 g, Oral, Daily, First dose on 05/07/23 at 0900, 1st line for treatment of constipation - give scheduled if no bowel movement in past 24 hours. microencapsulated potassium chloride 10 meq extended release oral tablet (19 sources) Start: 07-06-2022 End: 07-10-2022 20 mEq, Oral, 2 times daily, First dose on 07/06/22 at 1015 Best given with food and a glass of water to minimize gastric irritation. Do not crush or chew. Start: 12-01-2020 End: 05-07-2023 take 1 tablet by mouth twice daily potassium chloride CR (K-Tab) 20 MEQ ER tablet Take 20 mEq by mouth 2 times daily. 0 04/17/2022 05/07/2023 Discontinued (Stop taking at discharge) Comment on above: Take 1 tablet by [facility] twice daily. Potassium Chloride / Sodium Chloride (6 sources) Start: 07-09-2022 End: 07-09-2022 potassium chloride 40 mEq in sodium chloride 0.9 % 500 mL IVPB Start: 07-06-2022 End: 07-06-2022 potassium chloride 40 mEq in sodium chloride 0.9 % 500 mL IVPB Start: 07-06-2022 End: 07-06-2022 potassium chloride 40 mEq in sodium chloride 0.9 % 500 mL IVPB predniSONE 10 mg oral tablet (1 source) Start: 09-08-2020 End: 09-17-2020 predniSONE (DELTASONE) 10 mg tablet Indications: Cervicalgia Take 4 tabs daily for 3 days, then 2 tabs daily for 3 days, then 1 tab daily for 3 days with food. 21 tablet 09/08/2020 09/17/2020 rivaroxaban 20 mg oral tablet (2 sources) Factor Xa Inhibitor Start: 11-18-2019 End: 10-03-2020 take 1 tablet by mouth once daily at dinner rivaroxaban (XARELTO) 20 mg tablet Take 1 tablet by mouth daily with dinner. 90 tablet 1 11/18/2019 10/03/2020 Discontinued 24 hr rotigotine 0.0833 mg/hr transdermal system (1 source) Start: 02-22-2020 End: 05-16-2020 apply 1 dose transdermal route once daily rotigotine (NEUPRO) 2 mg/24 hour patch Apply 1 Patch as directed once daily. 30 Patch 2 02/22/2020 05/16/2020 Discontinued 50 ml sodium chloride 9 mg/ml injection (12 sources) Start: 05-07-2023 End: 05-07-2023 sodium chloride 0.9 % bolus 1,000 mL Start: 07-09-2022 End: 07-09-2022 sodium chloride 0.9 % bolus 500 mL Start: 07-05-2022 End: 07-10-2022 10 mL, IntraVENous, Every 12 hours scheduled (2 times per day), First dose on Fri07/05/22 at 2100, Phase II/On Unit Start: 07-05-2022 End: 07-10-2022 5-250 mL/hr, IntraVENous, SC N, if patient receiving piggyback infusions and maintenance fluids are not ordered OR KVO fluids to protect IV site / prevent frequent line interruptions/ long duration, Starting on Fri07/05/22 at 1713, Phase II/On Unit For piggyback infusion, administer at same rate [...] or less into rate field of order. Start: 07-05-2022 End: 07-10-2022 take 10 mL intravenously once 10 mL, IntraVENous, PRN, line care, Starting on Fri07/05/22 at 1713, Phase II/On Unit After every IV line use Start: 07-05-2022 End: 07-05-2022 sodium chloride 0.9 % infusi on traZODone hydrochloride 50 mg oral tablet (20 sources) Serotonin Reuptake Inhibitor Start: 05-07-2023 End: 05-07-2023 take 150 mg by mouth once daily 150 mg, Oral, Nightly, First dose on Fri05/07/23 at 2100 Start: 05-07-2023 End: 05-07-2023 take 150 mg by mouth once daily 150 mg, Oral, Nightly, First dose on Fri05/07/23 at 2100 Start: 04-14-2022 End: 07-10-2022 take 1 tablet by mouth once daily traZODone (Desyrel) 150 MG tablet Take 150 mg by mouth Nightly. 0 04/14/2022 Active Start: 11-13-2020 traZODone (CARMEN YREL) 100 mg tablet Take 150 mg by mouth daily at bedtime. 0 11/13/2020 Active Comment on above: Take 150 mg by mouth daily at bedtime. urea 400 mg/ml topical cream (2 sources) Start: 11-15-2019 End: 09-08-2020 urea (CARMOL) 40 % Apply to affected area as needed. 198.6 g 11 11/15/2019 09/08/2020 Discontinued Problems Active Problems Problem Classification Problem Date Documented Date Episodic/Chronic Anxiety disorders (13 sources) Anxiety; Translations: [Anxiety disorder, unspecified] Onset: 01-31-2022 05-23-2022 Chronic Aortic; peripheral; and visceral artery aneurysms (20 sources) Abdominal aortic aneurysm without rupture; Translations: [Abdominal aortic aneurysm, without rupture] Onset: 09-14-2019 09-14-2019 Chronic Cardiac dysrhythmias (20 sources) Atrial fibrillation; Translations: [Unspecified atrial fibrillation] [...] unspecified] Onset: 08-31-2014 08-31-2014 Chronic Esophageal disorders (20 sources) Gastroesophageal reflux disease; Translations: [Gastro-esophageal reflux disease without esophagitis] Onset: 05-23-2022 01-29-2017 Chronic Essential hypertension (9 sources) Hypertensive disorder; Translations: [Essential (primary) hypertension] 07-16-2011 Chronic Other hereditary and degenerative nervous system conditions (20 sources) Restless legs; Translations: [Restless legs syndrome] Onset: 07-16-2011 07-16-2011 Chronic Other nervous system disorders (20 sources) Chronic pain; Translations: [Other chronic pain] Onset: 01-15-2013 01-15-2013 Chronic Other screening for suspected conditions (not mental disorders or infectious disease) (2 sources) Patient encounter status; Translations: [Encounter for screening mammogram for malignant neoplasm of breast] Episodic Peripheral and visceral atherosclerosis (20 sources) Peripheral vascular disease, unspecified; Translations: [Peripheral vascular disease, unspecified] Onset: 08-13-2011 08-13-2011 Chronic Residual codes; unclassified (9 sources) Sleep apnea; Translations: [Sleep apnea, unspecified] 06-25-2019 Chronic Residual codes; unclassified (13 sources) Obstructive sleep apnea syndrome; Translations: [Obstructive sleep apnea (adult) (pediatric)] Onset: 06-25-2021 05-23-2022 Chronic Residual codes; unclassified (2 sources) History of cardiovascular surgery; Translations: [Other specified postprocedural states] Episodic Spondylosis; intervertebral disc disorders; other back problems (20 sources) Degeneration of lumbar intervertebral disc; Translations: [Other intervertebral disc degeneration, lumbar region] Onset: 01-15-2013 01-15-2013 Chronic Spondylosis; intervertebral disc disorders; other back problems (18 sources) Lumbar radiculopathy; Translations: [Radiculopathy, lumbar region] Onset: 01-15-2013 01-15-2013 Episodic Unclassified (2 sources) Post-op; Translations: [Post-op] Onset: 08-19-2022 Unclassified (1 source) Infrarenal abdominal aortic aneurysm, without rupture (HCC); Translations: [Infrarenal abdominal aortic aneurysm, without rupture (HCC)] Onset: 07-05-2022 Unclassified (2 sources) New Patient; Translations: [New Patient] Onset: 05-27-2022 Past or Other Problems Problem Classification Problem Date Documented Da te Episodic/Chronic Abdominal pain (3 sources) Pain in pelvis; Translations: [Pelvic pain] Onset: 05-07-2013 Resolved: 01-02-2016 01-02-2016 Episodic Cancer of ovary (3 sources) Malignant tumor of ovary; Translations: [Malignant neoplasm of unspecified ovary] Onset: 09-13-2011 Resolved: 05-07-2013 05-07-2013 Chronic Cancer of ovary (9 sources) History of malignant neoplasm of ovary; Translations: [Personal history of malignant neoplasm of ovary] Onset: 05-08-2012 05-08-2012 Episodic Deficiency and other anemia (13 sources) Anemia; Translations: [Anemia, unspecified] Onset: 05-25-2021 05-23-2022 Episodic Genitourinary symptoms and ill-defined conditions (9 sources) Increased frequency of urination; Translations: [Frequency of micturition] Onset: 05-07-2013 Resolved: 03-15-2019 03-15-2019 Episodic Inflammatory diseases of female pelvic organs (3 sources) Vulvovaginitis; Translations: [Acute vaginitis] Onset: 07-16-2011 Resolved: 01-13-2014 01-13-2014 Episodic Malaise and fatigue (13 sources) Fatigue; Translations: [Other fatigue] Onset: 05-23-2022 05-23-2022 Episodic Other and ill-defined heart disease (3 sources) Heart disease; Translations: [Heart disease, unspecified] Resolved: 01-29-2017 03-12-2021 Chronic Other circulatory disease (2 sources) Personal history of other diseases of the circulatory system; Translations: [Personal history of other diseases of the circulatory system] Onset: 07-24-2022 Episodic Other connective tissue disease (9 sources) Recurrent falls ; Translations: [Repeated falls] Onset: 12-31-2017 12-31-2017 Episodic Other connective tissue disease (3 sources) Myofascial pain; Translations: [Myalgia, other site] Onset: 01-15-2013 Resolved: 03-15-2019 03-15-2019 Episodic Other connective tissue disease (3 sources) Pain in left lower limb; Translations: [Pain in left leg] Onset: 12-06-2015 Resolved: 03-15-2019 03-15-2019 Episodic Other gastrointestinal disorders (13 sources) Splenomegaly; Translations: [Splenomegaly, not elsewhere classified] Onset: 05-23-2022 05-23-2022 Episodic Other gastrointestinal disorders (3 sources) Pelvic mass; Translations: [Intra-abdominal and pelvic swelling, mass and lump, unspecified site] Onset: 07-23-2011 Resolved: 05-07-2013 05-07-2013 Episodic Other liver diseases (13 sources) Raised cardiac enzyme or marker; Translations: [Abnormal levels of other serum enzymes] Onset: 05-23-2022 05-23-2022 Episodic Other lower respiratory disease (3 sources) Dyspnea; Translations: [Shortness of breath] Onset: 11-04-2014 Resolved: 03-15-2019 03-15-2019 Episodic Other nervous system disorders (8 sources) Abnormal gait; Translations: [Unspecified abnormalities of gait and mobility] Onset: 05-16-2020 05-16-2020 Episodic Residual codes; unclassified (9 sources) Tobacco user; Translations: [Tobacco use] Onset: 08-31-2014 08-31-2014 Episodic Residual codes; unclassified (13 sources) Delirium; Translations: [Disorientation, unspecified] Onset: 05-23-2022 05-23-2022 Episodic Residual codes; unclassified (2 sources) Other specified postprocedural states; Translations: [Other specified postprocedural states] Onset: 07-24-2022 Episodic Residual codes; unclassified (3 sources) Family history of ischemic heart disease; Translations: [Family history of ischemic heart disease and other diseases of the circulatory system] Onset: 08-31-2014 Resolved: 03-15-2019 03-15-2019 Episodic Skin and subcutaneous tissue infections (3 sources) Cellulitis of abdominal wall ; Translations: [Cellulitis of abdominal wall] Onset: 09-20-2011 Resolved: 01-29-2017 01-29-2017 Episodic Unclassified (1 source) Infrarenal abdominal aortic aneurysm, without rupture (HCC); Translations: [Infrarenal abdominal aortic aneurysm, without rupture (HCC)] Onset: 07-05-2022 Viral infection (13 sources) Herpes zoster; Translations: [Zoster without complications] Onset: 05-23-2022 05-23-2022 Episodic Results Test Name Value Interpretation Reference Range Facility [id number] 05-07-2023 [id number] Pt alert and oriente d to self, place, situation, and time on admission. Upon entering the room to check her monitor, the patient is found to have unhooked her ECG and SpO2 monitor and pulled out the IV in her R AC. When asked orientation questions the pt was only able to correctly state her name/ and the month and year. notified about change in LOC. replied that this would be passed on to the day team and they would evaluate. Normal [facility] BASIC METABOLIC PANELon 04-18 Anion gap [Moles/Vol] 8 mmol/L Normal 3-13 [facility] Comment on above: Performed By: #### L [id number] ####Heavy Equipment Mechanic: JOSE DELGADO ([id number])[address] Calcium [Mass/Vol] 7.8 mg/dL Low 8.4-10.4 [facility] Comment on above: Performed By: #### L [id number] ####Heavy Equipment Mechanic: JOSE DELGADO ([id number])[facility])[address] [place] [address] Chloride [Moles/Vol] 108 mmol/L High 98-107 [facility] Comment on above: Performed By: #### L [id number] ####Heavy Equipment Mechanic: JOSE DELGADO ([id number])[facility])[address] [place] [address] CO2 [Moles/Vol] 18 mmol/L Low 22-30 [facility] Comment on above: Performed By: #### L AB15 ####Heavy Equipment Mechanic: JOSE [id number])[facility])[address] [place] [address] Creatinine [Mass/Vol] 1.90 mg/dL High 0.52-1.04 [facility] Comment on above: Performed By: #### L [id number] ####Heavy Equipment Mechanic: JOSE DELGADO ([id number])[facility])[address] [place] [address] GLOMERULAR FILTRATION RATE ML/MIN/1.73 SQ M.PREDICTED 27.4 mL/min/1.73m*2 Low >60.0 [facility] Comment on above: Result Comment: Calc ulation based on the Chronic Kidney Disease Epidemiology Collaboration (CKD-EPI) equation refit without adjustment for race Performed By: #### L AB15 ####Heavy Equipment Mechanic: JOSE DELGADO ([id number])[facility])[address] [place] [address] Glucose [Mass/Vol] 78 mg/dL Normal 70-100 [facility] Comment on above: Performed By: #### L AB15 ####Heavy Equipment Mechanic: JOSE DELGADO ([id number])[facility])[address] [place] [address] Potassium [Moles/Vol] 3.9 mmol/L Normal 3.5-5.1 [facility] Comment on above: Performed By: #### L AB15 ####Heavy Equipment Mechanic: JOSE DELGADO ([id number])[facility])[address] [place] [address] [place] Sodium [Moles/Vol] 135 mmol/L Normal 135-145 [facility] Comment on above: Performed By: #### L AB15 ####Heavy Equipment Mechanic: JOSE DELGADO ([id number])[facility])[address] [place] [address] [place] Urea nitrogen [Mass/Vol] 51 mg/dL High 7-17 [facility] Comment on above: Performed By: #### L AB15 ####Heavy Equipment Mechanic: JOSE DELGADO ([id number])[facility])[address] [place] [address] [place] Anion gap [Moles/Vol] 6 mmol/L Normal 3-13 [facility] Comment on above: Performed By: #### L AB15, LAB20 ####Heavy Equipment Mechanic: JOSE DELGADO ([phone])[facility] [place] [address] Calcium [Mass/Vol] 7.9 mg/dL Low 8.4-10.4 [facility] Comment on above: Performed By: #### L AB15, LAB20 ####Heavy Equipment Mechanic: JOSE DELGADO ([id number])[facility] [place] [address] Chloride [Moles/Vol] 108 mmol/L High 98-107 [facility] Comment on above: Performed By: #### L AB15, LAB20 ####Heavy Equipment Mechanic: JOSE DELGADO ([id number])[facility] [place] [address] CO2 [Moles/Vol] 22 mmol/L Normal 22-30 [facility] Comment on above: Performed By: #### L AB15, LAB20 ####Heavy Equipment Mechanic: JOSE DELGADO ([id number])[facility] [place] [address] Creatinine [Mass/Vol] 2.19 mg/dL High 0.52-1.04 [facility] Comment on above: Performed By: #### L AB15, LAB20 ####Heavy Equipment Mechanic: JOSE DELGADO ([id number])[facility])[address] [place] [address] [place] GLOMERULAR FILTRATION RATE ML/MIN/1.73 SQ M.PREDICTED 23.1 mL/min/1.73m*2 Low >60.0 [facility] Comment on above: Result Comment: Calc ulation based on the Chronic Kidney Disease Epidemiology Collaboration (CKD-EPI) equation refit without adjustment for race Performed By: #### L AB15, LAB20 ####Heavy Equipment Mechanic: JOSE DELGADO ([id number])[facility] [place] [address] Glucose [Mass/Vol] 91 mg/dL Normal 70-100 [facility] Comment on above: Performed By: #### L AB15, LAB20 ####Heavy Equipment Mechanic: JOSE DELGADO ([id number])[facility])[address] [place] [address] Potassium [Moles/Vol] 4.3 mmol/L Normal 3.5-5.1 [facility] Comment on above: Performed By: #### L AB15, LAB20 ####Heavy Equipment Mechanic: JOSE DELGADO ([id number])[facility])[address] [place] [address] Sodium [Moles/Vol] 136 mmol/L Normal 135-145 [facility] Comment on above: Performed By: #### L AB15, LAB20 ####Heavy Equipment Mechanic: JOSE DELGADO ([id number])[facility])[address] [place] [address] Urea nitrogen [Mass/Vol] 58 mg/dL High 7-17 [facility] Comment on above: Performed By: #### L AB15, LAB20 ####Heavy Equipment Mechanic: JOSE DELGADO ([id number])[facility])[address] [place] [address] BLOOD TYPE AND SCREEN GELon 05-07-2023 ABO GROUPING A Normal [facility] Comment on above: Performed By: #### L [id number] ####Heavy Equipment Mechanic: JOSE DELGADO ([id number])[facility] ([facility])[address] [place] [address] RH TYPE IN BLOOD Positive Normal [facility] Comment on above: Performed By: #### L [id number] ####Heavy Equipment Mechanic: JOSE DELGADO ([id number])[facility] ([facility])[address] [place] [address] Basic metabolic 1998 panelon 05-07-2023 Anion gap [Moles/Vol] 8 mmol/L 3 - 13 mmol/L [facility] Calcium [Mass/Vol] 7.8 mg/dL Low 8.4 - 10. 4 mg/dL [facility] Chloride [Moles/Vol] 108 mmol/L High 98 - 10 7 mmol/L [facility] CO2 [Moles/Vol] 18 mmol/L Low 22 - 30 mmol/L [facility] Creatinine [Mass/Vol] 1.90 mg/dL High 0.52 - 1.04 mg/dL [facility] GFR/1.73 sq M.predicted MDRD (S/P/Bld) [Vol rate/Area] 27.4 mL/min/{1.73_m2} Low - PINF [facility] Comment on above: Calculation based on the Chronic Kidney Disease Epidemiology Collaboration (CKD-EPI) equation refit without adjustment for race Glucose [Mass/Vol] 78 mg/dL 70 - 100 mg/dL [facility] Interpretation and review of laboratory results Abnormal [facility] Potassium [Moles/Vol] 3.9 mmol/L 3.5 - 5.1 mmol/L [facility] Sodium [Moles/Vol] 135 mmol/L 135 - 145 mmol/L [facility] Urea nitrogen [Mass/Vol] 51 mg/dL High 7 - 17 mg/dL [facility] Blood type and Crossmatch pa verna (Bld)on 05-07-2023 ABO group Nom (Bld) A [facility] Blood group antibody screen GEL Ql Negative [facility] CelluComp D Ag Ql (RBC) Positive [facility] h [facility] CAREC[facility]ORDon [facility]-07-2023 [facility] Initial Assessment Date: 05/07/2023 Patient Name: Kathy Puri : 1950 Patient Information Source of Information: Patient Cognition/Language: WFL - Within Functional Limits Permission given to speak with patient route service [facility] as indicated: Yes Confirmation of Payer with patient/family: Yes Payer Name: [facility] Medicare [place]: No Confirmation of Primary Care Physician: Confirmed [...] of Daily Living Ambulation: Independent Bathing/Dressing: Independent Elimination/Continenc e/Toileting: Independent Feeding: Independent Who Assists with Activities of Daily Living: Instrumental Activities of Daily Living Prescription Coverage: Yes Pharmacy Used: [facility] Medication Management: Prescription pick-up Transportation/Shoppi ng: Assistance Provider Transportation/Shoppi ng Assistance Provider Name: Family Transportation Mode: Car [...] TBD at this time. Nela Vera RN Normal [facility] CBC W Auto Differential pane l (Bld)on 05-07-2023 Basophils (Bld) [#/Vol] 0.0 10*3/uL 0.0 - 0.2 10*3/uL [facility] Basophils/100 WBC (Bld) 0.6 % 0.0 - 2.0 % [facility] Eosinophils (Bld) [#/Vol] 0.1 10*3/uL 0.0 - 0.5 10*3/uL [facility] Eosinophils/100 WBC (Bld) 2.4 % 1.0 - 6.0 % [facility] Erythrocyte distribution width (RBC) [Ratio] 14.4 % 11.5 - 14.5 % [facility] Hematocrit (Bld) [Volume fraction] 31.6 % Low 35.0 - 47.0 % [facility] Hemoglobin (Bld) [Mass/Vol] 10.7 g/dL Low 11.7 - 16.0 g/dL [facility] Interpretation and review of laboratory results Abnormal [facility] Lymphocytes (Bld) [#/Vol] 0.9 10*3/uL Low 1.0 - 4.3 10*3/uL [facility] Lymphocytes/100 WBC (Bld) 15.5 % Low 20.0 - 40.0 % [facility] MCH (RBC) [Entitic mass] 30.7 pg 26.0 - 34.0 pg [facility] MCHC (RBC) [Mass/Vol] 33.9 % 32.0 - 36.0 % [facility] MCV (RBC) [Entitic vol] 90.6 fL 80.0 - 98.0 fL [facility] Monocytes (Bld) [#/Vol] 0.4 10*3/uL 0.0 - 0.8 10*3/uL [facility] Monocytes/100 WBC (Bld) 7.2 % 2.0 - 10.0 % [facility] Neutrophils (Bld) [#/Vol] 4.3 10*3/uL 1.8 - 7.0 10*3/uL [facility] Neutrophils/100 WBC (Bld) 74.3 % 40.0 - 80.0 % [facility] Nucleated RBC/100 WBC (Bld) [Ratio] 0.1 % [facility] Platelet mean volume (Bld) [Entitic vol] 9.0 fL 7.4 - 12.4 fL [facility] Platelets (Bld) [#/Vol] 154 10*3/uL 140 - 440 10*3/uL [facility] RBC (Bld) [#/Vol] 3.49 10*6/uL Low 3.8 - 5.20 10*6/uL [facility] WBC (Bld) [#/Vol] 5.8 10*3/uL 3.6 - 10.7 10*3/uL [facility] CBC WITH AUTO DIFFERENTIALon 05-07-2023 Basophils (Bld) [#/Vol] 0.0 10*3/uL Normal 0.0-0.2 [facility] Comment on above: Performed By: #### L [id number] ####Heavy Equipment Mechanic: JOSE DELGADO ([id number])[address] Basophils/100 WBC (Bld) 0.6 % Normal 0.0-2.0 [facility] Comment on above: Performed By: #### L [id number] ####Heavy Equipment Mechanic: JOSE [id number])[facility])[address] [place] [address] Eosinophils (Bld) [#/Vol] 0.1 10*3/uL Normal 0.0-0.5 [facility] Comment on above: Performed By: #### L [id number] ####Heavy Equipment Mechanic: JOSE DELGADO ([id number])[facility])[address] [place] [address] Eosinophils/100 WBC (Bld) 2.4 % Normal 1.0-6.0 [facility] Comment on above: Performed By: #### L [id number] ####Heavy Equipment Mechanic: JOSE DELGADO ([id number])[address] Erythrocyte distribution width (RBC) [Ratio] 14.4 % Normal 11.5-14.5 [facility] Comment on above: Performed By: #### L [id number] ####Heavy Equipment Mechanic: JOSE DELGADO ([id number])[address] ERYTHROCYTE MEAN CORPUSCULAR HEMOGLOBIN CONCENTRATION (G/DL) BY AUTOMATED 33.9 % Normal 32.0-36.0 [facility] Comment on above: Performed By: #### L [id number] ####Heavy Equipment Mechanic: JOSE DELGADO ([id number])[address] Hematocrit (Bld) [Volume fraction] 31.6 % Low 35.0-47.0 [facility] Comment on above: Performed By: #### L [id number] ####Heavy Equipment Mechanic: JOSE DELGADO ([id number])[address] Hemoglobin (Bld) [Mass/Vol] 10.7 g/dL Low 11.7-16.0 [facility] Comment on above: Performed By: #### L [id number] ####Heavy Equipment Mechanic: JOSE DELGADO ([id number])[facility])[address] [place] [address] Lymphocytes (Bld) [#/Vol] 0.9 10*3/uL Low 1.0-4.3 [facility] Comment on above: Performed By: #### L [id number] ####Heavy Equipment Mechanic: JOSE DELGADO ([id number])[facility])[address] [place] [address] Lymphocytes/100 WBC (Bld) 15.5 % Low 20.0-40.0 [facility] Comment on above: Performed By: #### L [id number] ####Heavy Equipment Mechanic: JOSE DELGADO ([id number])[facility])[address] [place] [address] MCH (RBC) [Entitic mass] 30.7 pg Normal 26.0-34.0 [facility] Comment on above: Performed By: #### L [id number] ####Heavy Equipment Mechanic: JOSE DELGADO ([id number])[facility])[address] [place] [address] MCV (RBC) [Entitic vol] 90.6 fL Normal 80.0-98.0 [facility] Comment on above: Performed By: #### L [id number] ####Heavy Equipment Mechanic: JOSE DELGADO ([id number])[facility])[address] [place] [address] Monocytes (Bld) [#/Vol] 0.4 10*3/uL Normal 0.0-0.8 [facility] Comment on above: Performed By: #### L [id number] ####Heavy Equipment Mechanic: JOSE DELGADO ([id number])[facility])[address] [place] [address] Monocytes/100 WBC (Bld) 7.2 % Normal 2.0-10.0 [facility] Comment on above: Performed By: #### L [id number] ####Heavy Equipment Mechanic: JOSE DELGADO ([id number])[facility])[address] [place] [address] Neutrophils (Bld) [#/Vol] 4.3 10*3/uL Normal 1.8-7.0 [facility] Comment on above: Performed By: #### L [id number] ####Heavy Equipment Mechanic: JOSE DELGADO ([id number])[facility])[address] [place] [address] Neutrophils/100 WBC (Bld) 74.3 % Normal 40.0-80.0 [facility] Comment on above: Performed By: #### L [id number] ####Heavy Equipment Mechanic: JOSE DELGADO ([id number])[facility] [facility] [place] [address] NRBC (PER 100 WBCS) BY AUTOMATED COUNT 0.1 /100 WBCs Normal 0.0-2.0 [facility] Comment on above: Performed By: #### L [id number] ####Heavy Equipment Mechanic: JOSE DELGADO ([id number])[facility] ([facility])[address] [place] [address] Platelet mean volume (Bld) [Entitic vol] 9.0 fL Normal 7.4-12.4 [facility] Comment on above: Performed By: #### L [id number] ####Heavy Equipment Mechanic: JOSE DELGADO ([id number])[facility] ([facility])[address] [place] [address] Platelets (Bld) [#/Vol] 154 10*3/uL Normal 140-440 [facility] Comment on above: Performed By: #### L [id number] ####Heavy Equipment Mechanic: JOSE DELGADO ([id number])[facility] ([facility])[address] [place] [address] [place] RBC (Bld) [#/Vol] 3.49 10*6/uL Low 3.8-5.20 [facility] Comment on above: Performed By: #### L [id number] ####Heavy Equipment Mechanic: JOSE DELGADO ([phone])[facility] ([facility])[address] [place] [address] [place] WBC (Bld) [#/Vol] 5.8 10*3/uL Normal 3.6-10.7 [facility] Comment on above: Performed By: #### L [id number] ####Heavy Equipment Mechanic: JOSE DELGADO ([phone])[facility])[address] [place] [address] Basophils (Bld) [#/Vol] 0.0 10*3/uL Normal 0.0-0.2 [facility] Comment on above: Performed By: #### L [id number] ####Heavy Equipment Mechanic: JOSE DELGADO ([phone])[facility] ([facility])[address] [place] [address] Basophils/100 WBC (Bld) 0.4 % Normal 0.0-2.0 [facility] Comment on above: Performed By: #### L [id number] ####Heavy Equipment Mechanic: JOSE DELGADO ([phone])[facility])[address] [place] [address] Eosinophils (Bld) [#/Vol] 0.1 10*3/uL Normal 0.0-0.5 [facility] Comment on above: Performed By: #### L [id number] ####Heavy Equipment Mechanic: JOSE DELGADO ([phone])[facility])[address] [place] [address] Eosinophils/100 WBC (Bld) 1.7 % Normal 1.0-6.0 [facility] Comment on above: Performed By: #### L [id number] ####Heavy Equipment Mechanic: JOSE DELGADO ([phone])[facility])[address] [place] [address] Erythrocyte distribution width (RBC) [Ratio] 13.8 % Normal 11.5-14.5 [facility] Comment on above: Performed By: #### L [id number] ####Heavy Equipment Mechanic: JOSE DELGADO ([phone])[facility])[address] [place] [address] ERYTHROCYTE MEAN CORPUSCULAR HEMOGLOBIN CONCENTRATION (G/DL) BY AUTOMATED 33.8 % Normal 32.0-36.0 [facility] Comment on above: Performed By: #### L [id number] ####Heavy Equipment Mechanic: JOSE DELGADO ([id number])[address] Hematocrit (Bld) [Volume fraction] 33.2 % Low 35.0-47.0 [facility] Comment on above: Performed By: #### L [id number] ####Heavy Equipment Mechanic: JOSE DELGADO ([id number])[facility])[address] [place] [address] Hemoglobin (Bld) [Mass/Vol] 11.2 g/dL Low 11.7-16.0 [facility] Comment on above: Performed By: #### L [id number] ####Heavy Equipment Mechanic: JOSE DELGADO ([id number])[address] Lymphocytes (Bld) [#/Vol] 0.9 10*3/uL Low 1.0-4.3 [facility] Comment on above: Performed By: #### L [id number] ####Heavy Equipment Mechanic: JOSE DELGADO ([id number])[address] Lymphocytes/100 WBC (Bld) 13.9 % Low 20.0-40.0 [facility] Comment on above: Performed By: #### L [id number] ####Heavy Equipment Mechanic: JOSE DELGADO ([id number])[address] MCH (RBC) [Entitic mass] 30.5 pg Normal 26.0-34.0 [facility] Comment on above: Performed By: #### L [id number] ####Heavy Equipment Mechanic: JOSE DELGADO ([id number])[address] MCV (RBC) [Entitic vol] 90.1 fL Normal 80.0-98.0 [facility] Comment on above: Performed By: #### L [id number] ####Heavy Equipment Mechanic: JOSE DELGADO ([id number])[facility])[address] [place] [address] Monocytes (Bld) [#/Vol] 0.4 10*3/uL Normal 0.0-0.8 [facility] Comment on above: Performed By: #### L [id number] ####Heavy Equipment Mechanic: JOSE DELGADO ([phone])[facility])[address] [place] [address] Monocytes/100 WBC (Bld) 6.9 % Normal 2.0-10.0 [facility] Comment on above: Performed By: #### L [id number] ####Heavy Equipment Mechanic: JOSE DELGADO ([phone])[facility])[address] [place] [address] Neutrophils (Bld) [#/Vol] 4.9 10*3/uL Normal 1.8-7.0 [facility] Comment on above: Performed By: #### L [id number] ####Heavy Equipment Mechanic: JOSE DELGADO ([phone])[facility])[address] [place] [address] Neutrophils/100 WBC (Bld) 77.1 % Normal 40.0-80.0 [facility] Comment on above: Performed By: #### L [id number] ####Heavy Equipment Mechanic: JOSE DELGADO ([phone])[facility])[address] [place] [address] NRBC (PER 100 WBCS) BY AUTOMATED COUNT 0.0 /100 WBCs Normal 0.0-2.0 [facility] Comment on above: Performed By: #### L [id number] ####Heavy Equipment Mechanic: JOSE DELGADO ([phone])[facility])[address] [place] [address] Platelet mean volume (Bld) [Entitic vol] 8.6 fL Normal 7.4-12.4 [facility] Comment on above: Performed By: #### L [id number] ####Heavy Equipment Mechanic: JOSE DELGADO ([phone])[facility])[address] [place] [address] Platelets (Bld) [#/Vol] 158 10*3/uL Normal 140-440 [facility] Comment on above: Performed By: #### L [id number] ####Heavy Equipment Mechanic: JOSE DELGADO ([phone])[facility] ([facility])[address] [place] [address] RBC (Bld) [#/Vol] 3.68 10*6/uL Low 3.8-5.20 [facility] Comment on above: Performed By: #### L [id number] ####Heavy Equipment Mechanic: JOSE DELGADO ([id number])[facility] ([facility])[address] [place] [address] WBC (Bld) [#/Vol] 6.4 10*3/uL Normal 3.6-10.7 [facility] Comment on above: Performed By: #### L [id number] ####Heavy Equipment Mechanic: JOSE DELGADO ([id number])[facility] ([facility])[address] [place] [address] COMPLETE URINALYSISon 2023 BACTERIA (#/HPF) IN URINE Negative Normal Negative [facility] Comment on above: Performed By: #### L [id number] ####Heavy Equipment Mechanic: JOSE DELGADO ([phone])[facility])[address] [place] [address] BILIRUBIN, TOTAL PRESENCE IN URINE Negative Normal Negative [facility] Comment on above: Performed By: #### L [id number] ####Heavy Equipment Mechanic: JOSE DELGADO ([phone])[facility] ([facility])[address] [place] [address] Clarity (U) Clear Normal Clear [facility] Comment on above: Performed By: #### L [id number] ####Heavy Equipment Mechanic: JOSE DELGADO ([id number])[facility] ([facility])[address] [place] [address] Color (U) Colorless Normal Lt. Yellow [facility] Comment on above: Performed By: #### L [id number] ####Heavy Equipment Mechanic: JOSE DELGADO ([id number])[facility] ([facility])[address] [place] [address] Glucose (U) [Mass/Vol] 100 mg/dL Abnormal Normal (<70) [facility] Comment on above: Performed By: #### L [id number] ####Heavy Equipment Mechanic: JOSE DELGADO ([id number])[facility] ([facility])[address] [place] [address] HEMOGLOBIN PRESENCE IN URINE Negative Normal Negative [facility] Comment on above: Performed By: #### L [id number] ####Heavy Equipment Mechanic: JOSE DELGADO ([id number])[facility])[address] [place] [address] HYALINE CASTS (#/LPF) IN URINE SEDIMENT BY MICROSCOPY Negative Normal Negative [facility] Comment on above: Performed By: #### L [id number] ####Heavy Equipment Mechanic: JOSE DELGADO ([id number])[facility] ([facility])[address] [place] [address] Ketones Ql (U) Negative Normal Negative [facility] Comment on above: Performed By: #### L [id number] ####Heavy Equipment Mechanic: JOSE DELGADO ([phone])[facility] ([facility])[address] [place] [address] LEUKOCYTE ESTERASE PRESENCE IN URINE BY TEST STRIP 25 Cristiana/uL Abnormal Negative [facility] Comment on above: Performed By: #### L [id number] ####Heavy Equipment Mechanic: JOSE DELGADO ([id number])[facility] ([facility])[address] [place] [address] NITRITE PRESENCE IN URINE Negative Normal Negative [facility] Comment on above: Performed By: #### L [id number] ####Heavy Equipment Mechanic: JOSE DELGADO ([id number])[facility] ([facility])[address] [place] [address] pH (U) 5.0 [pH] Normal 5.0-8.0 [facility] Comment on above: Performed By: #### L [id number] ####Heavy Equipment Mechanic: JOSE DELGADO ([id number])[facility] ([facility])[address] [place] [address] Protein (U) [Mass/Vol] Negative Normal Negative [facility] Comment on above: Performed By: #### L [id number] ####Heavy Equipment Mechanic: JOSE DELGADO ([id number])[facility] ([facility])[address] [place] [address] [place] RBC (#/HPF) IN URINE SEDIMENT 0-2 Normal 0-2 [facility] Comment on above: Performed By: #### L [id number] ####Heavy Equipment Mechanic: JOSE DELGADO ([id number])[facility])[address] [place] [address] Specific gravity (U) [Rel density] 1.023 Normal 1.005-1.030 [facility] Comment on above: Performed By: #### L [id number] ####Heavy Equipment Mechanic: JOSE DELGADO ([id number])[facility])[address] [place] [address] SQUAMOUS EPITHELIAL CELLS (#/HPF) IN URINE SEDIMENT 0-2 Normal 3-5 [facility] Comment on above: Performed By: #### L [id number] ####Heavy Equipment Mechanic: JOSE DELGADO ([phone])[facility])[address] [place] [address] UROBILINOGEN (MG/DL) IN URINE Normal Normal Normal (0-1) [facility] Comment on above: Performed By: #### L [id number] ####Heavy Equipment Mechanic: JOSE DELGADO ([phone])[facility] ([facility])[address] [place] [address] WBC (LEUKOCYTE) (#/HPF) IN URINE SEDIMENT 0-2 Normal 0-5 [facility] Comment on above: Performed By: #### L [id number] ####Heavy Equipment Mechanic: JOSE DELGADO ([phone])[facility] ([facility])[address] [place] [address] ECG 12-LEADon 05-07-2023 ECG 12-LEAD IMPRESSION: Sinus rhythm Prolonged SC interval Nonspecific IVCD with LAD Abnormal T, consider ischemia, diffuse leads No significant change compared to 07/07/2022 Electronically Signed On 05-07-2023 00:26:50 EST by Kanwal Soria [facility] ED Nursing Noteon 05-07-2023 ED Nursing Note Surgery at bedside. Sánchez Pereyralea 05/07/23 0042 [facility] ED Provider Noteon ED Provider Note EMERGENCY DEPARTMENT ENCOUNTER Pt Name: Kathy Puri Birthdate 1950 Date of evaluation: 05/06/2023 ED Provider: Raji Delacruz DO CHIEF COMPLAINT Chief Complaint Patient presents with Heart Problem Pt arrived by EMS from [facility] (blue sheet) due cardiac issues( AAA leaking) . Upon assessment pt is a&ox3 msps intact - cp - sob - dizziness - n/v - pain. HISTORY OF PRESENT ILLNESS (Location/Symptom, Timing/Onset, Context/Setting, Quality, Duration, Modifying Factors, Severity) Note limiting factors. I wore appropriate PPE for the entirety of this encounter. HPI Kathy Puri is a 73 y.o. s/p EVAR (07/05/[address] Parker) who presents to the emergency department as transfer from her history ED due to confusion, abdominal pain x 3 weeks, and concern for endoleak. She describes this intermittent abdominal pain as diffuse and radiating to her back. Nursing Notes were reviewed. Limitations to history: None Outside historians: None REVIEW OF SYSTEMS Review of Systems Constitutional: Negative for fever. HENT: Negative for congestion and rhinorrhea. Respiratory: Negative for cough and shortness of breath. Cardiovascular: Negative for chest pain. Gastrointestinal: Positive for abdominal pain. Negative for diarrhea, nausea and vomiting. All other systems reviewed and are negative. Pertinent positives and negatives as per HPI. PAST MEDICAL HISTORY Past Medical History: Diagnosis Date Anemia Anxiety Arrhythmia afib Arthritis Cancer (CMS/HCC) (HCC) ovarian CHF (congestive heart failure) (CMS/HCC) (HCC) CKD (chronic kidney disease) COPD (chronic obstructive pulmonary disease) (HCC) Depression GERD (gastroesophageal reflux disease) Heart valve disease Hyperlipidemia Hypertension Irritable bowel syndrome Joint pain Myocardial infarction (CMS/HCC) ([facility]) Pacemaker PAD (peripheral artery disease) ([facility]) Sleep apnea uses CPAP SURGICAL HISTORY Past Surgical History: Procedure Laterality Date ABDOMINAL AORTIC ANEURYSM REPAIR 07/05/2022 ENDOVASCULAR REPAIR OF ABDOMINAL AORTIC ANEURYSM, OPEN FEMORAL ARTERY EXPOSURE FOR DELIVERY OF ENDOVASCULAR PROSTHESIS BREAST BIOPSY Bilateral neg CORONARY STENT PLACEMENT X10 per pt. HYSTERECTOMY with BSO for CA INSERT / REPLACE / REMOVE PACEMAKER PACEMAKER (HISTORICAL) 2019 STENT INSERTION (HISTORICAL) TONSILLECTOMY CURRENT MEDICATIONS Previous Medications ACETAMINOPHEN (TYLENOL) 500 MG TABLET Take 500 mg by mouth every 6 hours as needed. ALBUTEROL 108 (90 BASE) MCG/ACT INHALER Inhale 1 - 2 puffs by mouth every 4 hours as needed for Dyspnea, wheezing AMIODARONE (PACERONE) 200 MG TABLET Take 200 mg by mouth daily. AMLODIPINE (NORVASC) 2.5 MG TABLET Take 2.5 mg by mouth in the morning. ASCORBIC ACID (VITAMIN C) 500 MG TABLET Take 500 mg by mouth in the morning. ATORVASTATIN (LIPITOR) 40 MG TABLET Take 40 mg by mouth daily. for cholesterol BUSPIRONE (BUSPAR) 10 MG TABLET Take 10 mg by mouth in the morning and 10 mg at noon and 10 mg in the evening. CHOLECALCIFEROL (VITAMIN D-3) 25 MCG (1000 UT) CAPSULE Take 1,000 Units by mouth in the morning. CLOPIDOGREL (PLAVIX) 75 MG TABLET Take 75 mg by mouth Nightly. DICYCLOMINE (BENTYL) 10 MG CAPSULE TAKE 1 CAPSULE BY MOUTH FOUR TIMES DAILY for ibs ELIQUIS 5 MG TABLET TAKE 1 TABLET BY MOUTH TWICE DAILY (blood thinner) FERROUS SULFATE 325 (65 FE) MG TABLET Take 325 mg by mouth. FLUTICASONE-SALMETERO L 500-50 MCG/ACT AEROSOL POWDER Inhale 1 puff in the morning and 1 puff in the evening. FUROSEMIDE (LASIX) 40 MG TABLET Take 40 mg by mouth 2 times daily. GABAPENTIN (NEURONTIN) 300 MG CAPSULE TAKE 1 CAPSULE BY MOUTH IN THE MORNING AND TAKE 2 CAPSULES BY MOUTH AT BEDTIME ISOSORBIDE MONONITRATE ER (IMDUR) 60 MG 24 HR TABLET TAKE 1 TABLET BY MOUTH DAILY FOR HEART LIDOCAINE (LIDODERM) 5 % PATCH Place 1 patch on the skin in the morning and 1 patch in the evening. LORAZEPAM (ATIVAN) 1 MG TABLET Take 1 mg by mouth Nightly. METOPROLOL TARTRATE (LOPRESSOR) 100 MG TABLET Take 100 mg by mouth 2 times daily. MULTIPLE VITAMIN (MULTIVITAMIN ADULT PO) Take 1 capsule by mouth in the morning. NITROGLYCERIN (NITROSTAT) 0.4 MG SL TABLET 0.4 mg sublingually every 5 minutes As Needed for Chest Pain PANTOPRAZOLE (PROTONIX) 40 MG EC TABLET Take 40 mg by mouth daily. POTASSIUM CHLORIDE CR (K-TAB) 20 MEQ ER TABLET Take 20 mEq by mouth 2 times daily. TRAZODONE (DESYREL) 150 MG TABLET Take 150 mg by mouth Nightly. VITAMIN E 100 UNITS TABLET by Other route. ALLERGIES Lisinopril FAMILY HISTORY Family History Problem Relation Name Age of Onset Hypertension Sister Hyperlipidemia Sister SOCIAL HISTORY Social History Socioeconomic History Marital status: Tobacco Use Smoking status: Former Packs/day: 0.50 Years: 45.00 Additional pack years: 0.00 Total pack years: 22.50 Types: Cigarettes Quit (more content not included)... Normal [facility] ED Provider Note Emergency Department Encounter [facility] EMERGENCY DEPT Patient: Kathy Puri : 1950 Date of Evaluation: 05/06/2023 ED Supervising Physician: Kanwal Jack MD I independently examined and evaluated Kathy [...] FiO2 (%) Left arm -- Focused exam: [id number] in no acute distress. Alert and oriented [...] or pneumothorax. Cardiomediastinal silhouette: Stable enlarged cardiomediastinal silhouette.Atheroscle rotic calcifications of the aortic arch Other: Degenerative [...] Culture. Procedure Abnormality Status --------- ------ Complete Urinalysis[[id number]] Please view results for these tests on [...] EKG from June 2022. Reviewed paperwork from [facility]. Urinalysis on that paperwork with no UTI. Surgery was consulted to evaluate the patient. They recommended admitting the patient to their service. Plan discussed with the patient and patient agreeable with plan. Patient admitted in stable condition. All diagnostic, treatment, and disposition decisions were made by myself in conjuncti (more content not included)... Normal [facility] HEPATIC FUNCTION PANELon Albumin [Mass/Vol] 3.5 g/dL Normal 3.5-5.0 [facility] Comment on above: Performed By: #### L AB15, LAB20 ####Heavy Equipment Mechanic: JOSE DELGADO ([id number])[address] ALP [Catalytic activity/Vol] 100 U/L Normal 38-126 [facility] Comment on above: Performed By: #### L AB15, LAB20 ####Heavy Equipment Mechanic: JOSE DELGADO ([id number])[facility])[address] [place] [address] ALT [Catalytic activity/Vol] 6 U/L Normal 0-34 [facility] Comment on above: Performed By: #### L AB15, LAB20 ####Heavy Equipment Mechanic: JOSE DELGADO ([id number])[address] AST [Catalytic activity/Vol] 16 U/L Normal 15-46 [facility] Comment on above: Performed By: #### L AB15, LAB20 ####Heavy Equipment Mechanic: JOSE DELGADO ([phone])[facility])[address] [place] [address] Bilirubin [Mass/Vol] 0.5 mg/dL Normal 0.2-1.3 [facility] Comment on above: Performed By: #### L AB15, LAB20 ####Heavy Equipment Mechanic: JOSE DELGADO ([id number])[address] Bilirubin.indirect [Mass/Vol] 0.0 mg/dL Normal 0.0-0.3 [facility] Comment on above: Performed By: #### L AB15, LAB20 ####Heavy Equipment Mechanic: JOSE DELGADO ([id number])[address] Protein [Mass/Vol] 6.2 g/dL Low 6.3-8.2 [facility] Comment on above: Performed By: #### L AB15, LAB20 ####Heavy Equipment Mechanic: JOSE DELGADO ([id number])[address] Laboratory - Chemistry and C hemistry - challengeon 05-07-2023 Glucose [Mass/Vol] 95 mg/dL 70 - 100 mg/dL [facility] Laboratory - Coagulationon 0 05-07-2023 aPTT Coag (PPP) [Time] 26.5 s 20.0 - 30.5 s [facility] INR Coag (PPP) [Relative time] 1.4 {INR} High 0.9 - 1.1 [facility] Comment on above: Recommended Anticoag ulant Therapy: SEE BELOW ----- INR of 2.0 - 3.0 : - Prophylaxis of Venous Thrombosis (high-risk surgery) - Treatment of Venous Thrombosis - Treatment of Pulmonary Embolism (Includes tissue heart valves, Acute Myocardial Infarction to prevent systemic embolism, Valvular Heart Disease, and Atrial Fibrillation) ----- INR of 2.5 - 3.5 : - Mechanical Prosthetic Valves (high risk) - If oral anticoagulant therapy is used to prevent Myocardial Infarction PT Coag (Bld) [Time] 14.7 s High 9.0 - 12.[address] [facility] No Panel Informationon 05-07 Interpretation and review of laboratory results Normal [facility] Performed by: [facility], [address] [place] [address], [place] [address] CLIA ID: [id number] [facility] Interpretation and review of laboratory results Abnormal [facility] P [place] 129 degrees [facility] SC Interval 299 ms [facility] QRS [place] -60 degrees [facility] QRSD Interval 121 ms [facility] h QT Interval 401 ms [facility] QTC Interval 445 ms [facility] T Wave [place] -64 degrees [facility] Sinus rhythm Prolonged SC interval Nonspecific IVCD with LAD Abnormal T, consider ischemia, diffuse leads No significant change compared to 07/07/2022 Electronically Signed On 05-07-2023 00:26:50 EST by Kanwal Kaur MD - 05/07/2023 IMPRESSION: Sinus rhythm Prolonged SC interval Nonspecific IVCD with LAD Abnormal T, consider ischemia, diffuse leads No significant change compared to 07/07/2022 Electronically Signed On 05-07-2023 00:26:50 EST by Kanwal Soria [facility] Radiology Study observation (narrative) [facility] Nursing Noteon 05-07-2023 Nursing Note Tele and IV discontinued. Patient educated on meds and discharge instructions. States she understands. Has all belongings in hand. Normal [facility] Nursing Note Walked into pt room at 0915 and wrong breakfast tray was sitting on bedside table. Pt has already eaten everything. MD Wagner and dietary notified. Pt was informed this morning she was NPO today and she ate the tray anyway. Normal [facility] PROTIME AND APTTon aPTT Coag (Bld) [Time] 26.5 s Normal 20.0-30.5 [facility] Comment on above: Performed By: #### L [id number] ####Heavy Equipment Mechanic: JOSE DELGADO ([id number])[facility])[address] [place] [address] INR Coag (PPP) [Relative time] 1.4 {INR} High 0.9-1.1 [facility] Comment on above: Result Comment: Torsten mmended Anticoagulant Therapy: SEE BELOW ----- INR of 2.0 - 3.0 : - Prophylaxis of Venous Thrombosis (high-risk surgery) - Treatment of Venous Thrombosis - Treatment of Pulmonary Embolism (Includes tissue heart valves, Acute Myocardial Infarction to prevent systemic embolism, Valvular Heart Disease, and Atrial Fibrillation) ----- INR of 2.5 - 3.5 : - Mechanical Prosthetic Valves (high risk) - If oral anticoagulant therapy is used to prevent Myocardial Infarction Performed By: #### Zachary [id number] ####Heavy Equipment Mechanic: JOSE DELGADO ([id number])[facility])[address] [place] [address] PT Coag (PPP) [Time] 14.7 s High 9.0-12.0 [facility] Comment on above: Performed By: #### Zachary [id number] ####Heavy Equipment Mechanic: JOSE DELGADO ([phone])[facility])[address] [place] [address] Urinalysis complete panel (U )Ordered By: Jean Wallace on 05-07-2023 Bacteria LM.HPF (Urine sed) [#/Area] Negative Negative /HPF [facility] Bilirubin Ql (U) Negative Negative mg/dL [facility] Clarity (U) Clear Clear [facility] Color (U) Colorless Lt. Yellow [facility] Epithelial cells.squamous LM.HPF (Urine sed) [#/Area] 0-2 [facility] Glucose Ql (U) 100 mg/dL Abnormal Normal (<70) [facility] Hemoglobin Ql (U) Negative Negative mg/dL [facility] Hyaline casts Auto (Urine sed) [#/Area] Negative Negative /LPF [facility] Interpretation and review of laboratory results Abnormal [facility] Ketones (U) [Mass/Vol] Negative Negat jessenia mg/dL [facility] Leukocyte esterase Test strip Ql (U) 25 Abnormal Negative Cristiana/uL [facility] Nitrite Ql (U) Negative Negative [facility] th pH (U) 5.0 [pH] 5.0 - 8.0 pH [facility] Protein (U) [Mass/Vol] Negative Negat jessenia mg/dL [facility] RBC LM.HPF (Urine sed) [#/Area] 0-2 [facility] Specific gravity (U) [Rel density] 1.023 1.005 - 1.030 [facility] Urobilinogen (U) [Mass/Vol] Normal Normal (0-1) mg/dL [facility] WBC LM.HPF (Urine sed) [#/Area] 0-2 [facility] Vital signson 05-07-2023 Heart rate 74 /min bpm [facility] XR Chest Single viewon 05-07 Lines, tubes, and devices: Dual-chamber pacemaker with leads project over the right atrium and right ventricle, unchanged. Lungs and pleura: Diffuse interstitial coarsening, likely chronic. Patchy airspace opacities in the right lung, likely infectious infiltrate. No sizable pleural fusion or pneumothorax. Cardiomediastinal silhouette: Stable enlarged cardiomediastinal silhouette.Atheroscle rotic calcifications of the aortic arch Other: Degenerative changes of the spine and shoulders. Stent graft of the descending aorta is noted. Report Dictated on Electronically Signed By: Brandyn Gibbons MD Electronically Signed Date/Time: 05/07/2023 12:05 AM [facility] Patient Name: KATHY PURI : 1950 Exam Date/Time: 05/06/2023 23:25 Procedure: XR CHEST 1 VIEW Ordering Provider: JACK PRISCA Reason For Exam: ams EXAMINATION: CHEST RADIOGRAPH (SINGLE VIEW AP OR PA) Clinical History: ams Comparison: Two-view chest radiograph 06/26/2022 RESULT: See [facility] SYSTEM Brandyn Gibbons MD - 05/07/2023 Patient Name: KATHY PURI : 1950 [facility]#: [id number] Exam Date/Time: 05/06/2023 23:25 Procedure: XR CHEST 1 VIEW Ordering Provider: JACK PRISCA Reason For Exam: ams EXAMINATION: CHEST RADIOGRAPH (SINGLE VIEW AP OR PA) Clinical History: ams Comparison: Two-view chest radiograph 06/26/2022 RESULT: See impression IMPRESSION: Lines, tubes, and devices: Dual-chamber pacemaker with leads project over the right atrium and right ventricle, unchanged. Lungs and pleura: Diffuse interstitial coarsening, likely chronic. Patchy airspace opacities in the right lung, likely infectious infiltrate. No sizable pleural fusion or pneumothorax. Cardiomediastinal silhouette: Stable enlarged cardiomediastinal silhouette.Atheroscle rotic calcifications of the aortic arch Other: Degenerative changes of the spine and shoulders. Stent graft of the descending aorta is noted. Report Dictated on Electronically Signed By: Brandyn Gibbons MD Electronically Signed Date/Time: 05/07/2023 12:05 AM EST [employer] XR Chest Single viewOrdered By: Brandyn Gibbons on 05-07-2023 [employer] Work Phone: Basic metabolic 1998 panelon 05-06-2023 Anion gap [Moles/Vol] 6 mmol/L 3 - 13 mmol/L [facility] [employer] [employer] Calcium [Mass/Vol] 7.9 mg/dL Low 8.4 - 10. 4 mg/dL [facility] [employer] [employer] Chloride [Moles/Vol] 108 mmol/L High 98 - 10 7 mmol/L [facility] [employer] CO2 [Moles/Vol] 22 mmol/L 22 - 30 mmol/L [facility] [employer] [employer] Creatinine [Mass/Vol] 2.19 mg/dL High 0.52 - 1.04 mg/dL [employer] GFR/1.73 sq M.predicted MDRD (S/P/Bld) [Vol rate/Area] 23.1 mL/min/{1.73_m2} Low - PINF [facility] th Comment on above: Calculation based on the Chronic Kidney Disease Epidemiology Collaboration (CKD-EPI) equation refit without adjustment for race Glucose [Mass/Vol] 91 mg/dL 70 - 100 mg/dL [facility] Potassium [Moles/Vol] 4.3 mmol/L 3.5 - 5.1 mmol/L [facility] Sodium [Moles/Vol] 136 mmol/L 135 - 145 mmol/L [facility] Urea nitrogen [Mass/Vol] 58 mg/dL High 7 - 17 mg/dL [facility] CBC W Auto Differential pane l (Bld)Ordered By: Sheila Gutierrez on 05-06-2023 Basophils (Bld) [#/Vol] 0.0 10*3/uL 0.0 - 0.2 10*3/uL [facility] Basophils/100 WBC (Bld) 0.4 % 0.0 - 2.0 % [facility] Eosinophils (Bld) [#/Vol] 0.1 10*3/uL 0.0 - 0.5 10*3/uL [facility] Eosinophils/100 WBC (Bld) 1.7 % 1.0 - 6.0 % [facility] Erythrocyte distribution width (RBC) [Ratio] 13.8 % 11.5 - 14.5 % [facility] Hematocrit (Bld) [Volume fraction] 33.2 % Low 35.0 - 47.0 % [facility] Hemoglobin (Bld) [Mass/Vol] 11.2 g/dL Low 11.7 - 16.0 g/dL [facility] Interpretation and review of laboratory results Abnormal [facility] Lymphocytes (Bld) [#/Vol] 0.9 10*3/uL Low 1.0 - 4.3 10*3/uL [facility] Lymphocytes/100 WBC (Bld) 13.9 % Low 20.0 - 40.0 % [facility] MCH (RBC) [Entitic mass] 30.5 pg 26.0 - 34.0 pg [facility] MCHC (RBC) [Mass/Vol] 33.8 % 32.0 - 36.0 % [facility] MCV (RBC) [Entitic vol] 90.1 fL 80.0 - 98.0 fL [facility] Monocytes (Bld) [#/Vol] 0.4 10*3/uL 0.0 - 0.8 10*3/uL [facility] Monocytes/100 WBC (Bld) 6.9 % 2.0 - 10.0 % [facility] Neutrophils (Bld) [#/Vol] 4.9 10*3/uL 1.8 - 7.0 10*3/uL [facility] Neutrophils/100 WBC (Bld) 77.1 % 40.0 - 80.0 % [facility] Nucleated RBC/100 WBC (Bld) [Ratio] 0.0 % [facility] Platelet mean volume (Bld) [Entitic vol] 8.6 fL 7.4 - 12.4 fL [facility] Platelets (Bld) [#/Vol] 158 10*3/uL 140 - 440 10*3/uL [facility] RBC (Bld) [#/Vol] 3.68 10*6/uL Low 3.8 - 5.20 10*6/uL [facility] WBC (Bld) [#/Vol] 6.4 10*3/uL 3.6 - 10.7 10*3/uL [facility] Hepatic function 2000 panelo n 05-06-2023 Albumin [Mass/Vol] 3.5 g/dL 3.5 - 5.0 g/dL [facility] ALP [Catalytic activity/Vol] 100 U/L 38 - 126 U/L [facility] ALT [Catalytic activity/Vol] 6 U/L 0 - 34 U/L [facility] AST [Catalytic activity/Vol] 16 U/L 15 - 46 U/L [facility] Bilirubin [Mass/Vol] 0.5 mg/dL 0.2 - 1 .3 mg/dL [facility] Bilirubin.conjugated [Mass/Vol] 0.0 mg/dL 0.0 - 0.3 mg/dL [facility] Protein [Mass/Vol] 6.2 g/dL Low 6.3 - 8.2 g/dL [facility] No Panel Informationon 05-06 Interpretation and review of laboratory results Abnormal [facility] XR Chest Single viewon 05-06 Radiology Study observation (narrative) [facility] Office Visiton 08-19-2022 Follow-up visit [id number] Darling Puri 1950 F Date Provider Department Center 08/19/2022 [id number], [place] [facility] None Family History Problem Relation Age of Onset Hypertension Sister Hyperlipidemia Sister Family Status - Relation Status Age at Sister Level of Service:76122 [place] POSTOP FOLLOW UP VISIT RELATED TO ORIGINAL PX Reason for Visit and Comments: Post-op [483] - EVAR 07/05/2022 / Discuss CTA 08/08/2024 [facility] Progress Noteon 08-19-2022 Progress Note 08/19/2022 Kathy Puri 1950 Chief Complaint Patient [...] care everywhere as there were performed in [place]. Past Surgical History: Procedure Laterality Date ABDOMINAL [...] Ultrasound imaging. Lana Parker MD Vascular Surgery [facility] CT ABDOMEN PELVIS ANGIOGRAM W AND/OR WO IV CONTRASTon 08-08-2022 CT ABDOMEN PELVIS ANGIOGRAM W AND/OR WO IV CONTRAST Patient Name: KATHY PURI : 1950 [id number] Exam Date/Time: 08/08/2022 14:41 Procedure: CT ABDOMEN PELVIS ANGIOGRAM W AND/OR WO IV CONTRAST Ordering Provider: PARKER MADELINE Reason For Exam: Aortic aneurysm (AAA), post-op CTA abdomen and pelvis and bilateral lower extremities with and without contrast HISTORY: Aneurysm Protocol: 1 mm axial images with and without intravenous contrast, 3-D rendering performed by me on an independent workstation COMPARISON: 07/08/2022 Dose reduction was employed with automated exposure control. Infrarenal abdominal aortic aneurysm treated with a bifurcated stent graft. The current maximum diameter of the abdominal aorta is 5.2 cm. No endoleak. The celiac and SMA are widely patent. The YADIEL origin is occluded. There may be stenoses at the origins of bilateral renal arteries. Occlusion of the right superficial femoral artery. The liver, spleen, pancreas, adrenals, and left kidney are normal. Small right renal cysts. Sigmoid diverticulosis. No bowel inflammation or bowel obstruction. No free fluid. The bladder is unremarkable. IMPRESSION: Infrarenal abdominal aortic aneurysm treated with a bifurcated stent graft. The current maximum diameter of the abdominal aorta is 5.2 cm. The YADIEL origin is occluded. There may be stenoses at the origins of bilateral renal arteries. Occlusion of the right SFA. Report Dictated on Electronically Signed By: Adin Mckinnon Electronically Signed Date/Time: 08/08/2022 4:41 PM EDT [facility] 36on 07-30-2022 36 SUYAPA Reyes called i n (via televisit through insurance) regarding her right groin incision. States patient has concerns with the incision being red, swollen, painful. Patient has appointment with PCP at 0900, scheduled her an OV with Kaila at 1045 here at [address] [facility] Office Visiton 07-24-2022 Follow-up visit [id number] JaxsonEmmanuelDarling niall 1950 F Date Provider Department Center 07/24/2022 [id number] [place] [facility] None Family History Problem Relation Age of Onset Hypertension Sister Hyperlipidemia Sister Family Status - Relation Status Age at Sister Level of Service:90554 [place] POSTOP FOLLOW UP VISIT RELATED TO ORIGINAL PX Reason for Visit and Comments: Post-op [483] - 1st PO EVAR of AAA 07/05/2022 Normal [facility] Progress Noteon 07-24-2022 Progress Note 07/24/2022 Kathy Jaxson 1950 Chief Complaint Patient presents with Post-op [...] surveillance schedule. Lana Parker MD Vascular Surgery Normal [facility] Basic metabolic 1998 panelon 07-10-2022 Anion gap [Moles/Vol] 3 mmol/L 3 - 13 mmol/L [facility] Calcium [Mass/Vol] 7.7 mg/dL Low 8.4 - 10. 4 mg/dL [facility] Chloride [Moles/Vol] 102 mmol/L 98 - 10 7 mmol/L [facility] CO2 [Moles/Vol] 28 mmol/L 22 - 30 mmol/L [facility] Creatinine [Mass/Vol] 1.17 mg/dL High 0.52 - 1.04 mg/dL [facility] GFR/1.73 sq M.predicted MDRD (S/P/Bld) [Vol rate/Area] 49.4 mL/min/{1.73_m2} Low - PINF [facility] Comment on above: Calculation based on the Chronic Kidney Disease Epidemiology Collaboration (CKD-EPI) equation refit without adjustment for race Glucose [Mass/Vol] 102 mg/dL High 70 - 100 mg/dL [facility] Interpretation and review of laboratory results Abnormal [facility] Potassium [Moles/Vol] 4.2 mmol/L 3.5 - 5.1 mmol/L [facility] Sodium [Moles/Vol] 133 mmol/L Low 135 - 145 mmol/L [facility] Urea nitrogen [Mass/Vol] 22 mg/dL High 7 - 17 mg/dL [facility] Anion gap [Moles/Vol] 4 mmol/L 3 - 13 mmol/L [facility] Calcium [Mass/Vol] 7.9 mg/dL Low 8.4 - 10. 4 mg/dL [facility] Chloride [Moles/Vol] 103 mmol/L 98 - 10 7 mmol/L [facility] CO2 [Moles/Vol] 29 mmol/L 22 - 30 mmol/L [facility] Creatinine [Mass/Vol] 1.26 mg/dL High 0.52 - 1.04 mg/dL [facility] GFR/1.73 sq M.predicted MDRD (S/P/Bld) [Vol rate/Area] 45.2 mL/min/{1.73_m2} Low - PINF [facility] Comment on above: Calculation based on the Chronic Kidney Disease Epidemiology Collaboration (CKD-EPI) equation refit without adjustment for race Glucose [Mass/Vol] 95 mg/dL 70 - 100 mg/dL [facility] Interpretation and review of laboratory results Abnormal [facility] Potassium [Moles/Vol] 3.7 mmol/L 3.5 - 5.1 mmol/L [facility] Sodium [Moles/Vol] 136 mmol/L 135 - 145 mmol/L [facility] Urea nitrogen [Mass/Vol] 23 mg/dL High 7 - 17 mg/dL [facility] CBC panel Auto (Bld)on 07-10 Erythrocyte distribution width (RBC) [Ratio] 14.3 % 11.5 - 14.5 % [facility] Hematocrit (Bld) [Volume fraction] 20.4 % Low 35.0 - 47.0 % [facility] Hemoglobin (Bld) [Mass/Vol] 7.0 g/dL Low 11.7 - 16.0 g/dL [facility] Interpretation and review of laboratory results Abnormal [facility] MCH (RBC) [Entitic mass] 31.3 pg 26.0 - 34.0 pg [facility] MCHC (RBC) [Mass/Vol] 34.5 % 32.0 - 36.0 % [facility] MCV (RBC) [Entitic vol] 90.8 fL 80.0 - 98.0 fL [facility] Platelet mean volume (Bld) [Entitic vol] 8.8 fL 7.4 - 12.4 fL [facility] Platelets (Bld) [#/Vol] 160 10*3/uL 140 - 440 10*3/uL [facility] RBC (Bld) [#/Vol] 2.25 10*6/uL Low 3.8 - 5.20 10*6/uL [facility] WBC (Bld) [#/Vol] 5.2 10*3/uL 3.6 - 10.7 10*3/uL [facility] Nursing Noteon 07-10-2022 Nursing Note Discharged to home. Instructions given to pt and her sister. Prescriptions filled by meds to beds pharmacy. Normal [facility] Basic metabolic 1998 panelon 07-09-2022 Anion gap [Moles/Vol] 5 mmol/L 3 - 13 mmol/L [facility] Calcium [Mass/Vol] 8.0 mg/dL Low 8.4 - 10. 4 mg/dL [facility] Chloride [Moles/Vol] 102 mmol/L 98 - 10 7 mmol/L [facility] CO2 [Moles/Vol] 28 mmol/L 22 - 30 mmol/L [facility] Creatinine [Mass/Vol] 1.16 mg/dL High 0.52 - 1.04 mg/dL [facility] GFR/1.73 sq M.predicted MDRD (S/P/Bld) [Vol rate/Area] 49.9 mL/min/{1.73_m2} Low - PINF [facility] Comment on above: Calculation based on the Chronic Kidney Disease Epidemiology Collaboration (CKD-EPI) equation refit without adjustment for race Glucose [Mass/Vol] 101 mg/dL High 70 - 100 mg/dL [facility] Interpretation and review of laboratory results Abnormal [facility] Potassium [Moles/Vol] 3.3 mmol/L Low 3.5 - 5.1 mmol/L [facility] Sodium [Moles/Vol] 136 mmol/L 135 - 145 mmol/L [facility] Urea nitrogen [Mass/Vol] 23 mg/dL High 7 - 17 mg/dL [facility] CBC panel Auto (Bld)Ordered By: Katya Gaviria on 07-09-2022 Erythrocyte distribution width (RBC) [Ratio] 14.2 % 11.5 - 14.5 % [facility] Hematocrit (Bld) [Volume fraction] 20.5 % Low 35.0 - 47.0 % [facility] Hemoglobin (Bld) [Mass/Vol] 7.1 g/dL Low 11.7 - 16.0 g/dL [facility] Interpretation and review of laboratory results Abnormal [facility] MCH (RBC) [Entitic mass] 31.2 pg 26.0 - 34.0 pg [facility] MCHC (RBC) [Mass/Vol] 34.5 % 32.0 - 36.0 % [facility] MCV (RBC) [Entitic vol] 90.2 fL 80.0 - 98.0 fL [facility] Platelet mean volume (Bld) [Entitic vol] 9.2 fL 7.4 - 12.4 fL [facility] Platelets (Bld) [#/Vol] 153 10*3/uL 140 - 440 10*3/uL [facility] RBC (Bld) [#/Vol] 2.27 10*6/uL Low 3.8 - 5.20 10*6/uL [facility] WBC (Bld) [#/Vol] 6.8 10*3/uL 3.6 - 10.7 10*3/uL [facility] CT HEAD WO IV CONTRASTon CT HEAD WO IV CONTRAST Patient Name: KATHY MAURER : 1950 Exam Date/Time: 07/09/2022 08:57 Procedure: CT HEAD WO IV CONTRAST Ordering Provider: PARKER MADELINE Reason For Exam: altered mental status CT HEAD: CLINICAL INDICATION: Altered mental status TECHNIQUE: Transaxial CT sequence performed through the head with 3 mm reconstruction. Sagittal and Coronal reconstruction images included. Dose reduction employed with automated exposure control. COMPARISON: None FINDINGS: Ventricles and Extra-axial spaces: The ventricles and sulci are enlarged consistent with diffuse cerebral volume loss. No abnormal extracerebral collection identified. 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 Cerebral and cerebellar parenchyma: Periventricular low attenuation areas are noted bilaterally, corresponding to chronic microvascular ischemic change. The martines-white differentiation is otherwise intact. No mass effect or midline shift. No intraparenchymal hemorrhage. Visualized Paranasal sinuses and mastoid air cells: There is mucosal thickening in the bilateral sphenoid sinuses, otherwise the visualized paranasal sinuses and mastoid air cells are clear. Calvarium and soft tissues: No displaced skull fracture. IMPRESSION: No acute intracranial abnormality. Report Dictated on Electronically Signed By: Yosef Corral Electronically Signed Date/Time: 07/09/2022 9:29 AM EDT Normal [facility] CT Head WO contraston 2022 No acute intracrania l abnormality. Report Dictated on Electronically Signed By: Yosef Corral Electronically Signed Date/Time: 07/09/2022 9:29 AM EDT [facility] Patient Name: KATHY PURI : 1950 Exam Date/Time: 07/09/2022 08:57 Procedure: CT HEAD WO IV CONTRAST Ordering Provider: PARKER MADELINE Reason For Exam: altered mental status CT HEAD: CLINICAL INDICATION: Altered mental status TECHNIQUE: Transaxial CT sequence performed through the head with 3 mm reconstruction. Sagittal and Coronal reconstruction images included. Dose reduction employed with automated exposure control. COMPARISON: None FINDINGS: Ventricles and Extra-axial spaces: The ventricles and sulci are enlarged consistent with diffuse cerebral volume loss. No abnormal extracerebral collection identified. 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 Cerebral and cerebellar parenchyma: Periventricular low attenuation areas are noted bilaterally, corresponding to chronic microvascular ischemic change. The martines-white differentiation is otherwise intact. No mass effect or midline shift. No intraparenchymal hemorrhage. Visualized Paranasal sinuses and mastoid air cells: There is mucosal thickening in the bilateral sphenoid sinuses, otherwise the visualized paranasal sinuses and mastoid air cells are clear. Calvarium and soft tissues: No displaced skull fracture. [facility] Yosef Corral MD - 07/09/2022 Patient Name: KATHY PURI : 1950 Exam Date/Time: 07/09/2022 08:57 Procedure: CT HEAD WO IV CONTRAST Ordering Provider: PARKER MADELINE Reason For Exam: altered mental status CT HEAD: CLINICAL INDICATION: Altered mental status TECHNIQUE: Transaxial CT sequence performed through the head with 3 mm reconstruction. Sagittal and Coronal reconstruction images included. Dose reduction employed with automated exposure control. COMPARISON: None FINDINGS: Ventricles and Extra-axial spaces: The ventricles and sulci are enlarged consistent with diffuse cerebral volume loss. No abnormal extracerebral collection identified. 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 Cerebral and cerebellar parenchyma: Periventricular low attenuation areas are noted bilaterally, corresponding to chronic microvascular ischemic change. The martines-white differentiation is otherwise intact. No mass effect or midline shift. No intraparenchymal hemorrhage. Visualized Paranasal sinuses and mastoid air cells: There is mucosal thickening in the bilateral sphenoid sinuses, otherwise the visualized paranasal sinuses and mastoid air cells are clear. Calvarium and soft tissues: No displaced skull fracture. IMPRESSION: No acute intracranial abnormality. Report Dictated on Electronically Signed By: Yosef Corral Electronically Signed Date/Time: 07/09/2022 9:29 AM EDT [facility] Radiology Study observation (narrative) [facility] CT Head WO contrastOrdered B y: Yosef Corral on 07-09-2022 [facility] Work Phone: Laboratory - Chemistry and C hemistry - challengeOrdered By: Lexi Dodson on 07-09-2022 Base excess Calc (Bld) [Moles/Vol] 2.1 mmol/L -3.0 - 3.0 mmol/L [facility] CO2 (Bld) [Partial pressure] 32.2 mm[Hg] Low - PINF [facility] CO2 [Moles/Vol] 26.0 mmol/L 23.0 - 27.0 mmol/L [facility] HCO3 (Bld) [Moles/Vol] 25.0 mmol/L 21.0 - 25.0 mmol/L [facility] Oxygen (Bld) [Partial pressure] 57.6 mm[Hg] Low [facility] pH (Bld) 7.508 [pH] High 7.350 - 7.450 [facility] Laboratory - Chemistry and C hemistry - challengeon 07-09-2022 Glucose [Mass/Vol] 107 mg/dL High 70 - 100 mg/dL [facility] Laboratory - Hematology and Cell countsOrdered By: Lexi Dodson on 07-09-2022 Hemoglobin (Bld) [Mass/Vol] 8.5 g/dL Screen Only [facility] No Panel InformationOrdered By: Lexi Dodson on 07-09-2022 Interpretation and review of laboratory results Abnormal [facility] Source Of Oxygen [facility] No Panel Informationon 07-09 Interpretation and review of laboratory results Abnormal [facility] Performed by: [facility], [address] [place] [address] CLIA ID: [id number] [facility] Nursing Noteon 07-09-2022 Nursing Note Patient states she takes lorazepam every night before bed and asking if she can get it here. I called and clarified with her pharmacy active medication. Dr Ontiveros aware. Normal [facility] Nursing Note Per patient request Dr Ontiveros messaged because she states she takes lorazepam at hs. Normal [facility] Nursing Note In chair, encouraged incentive spirometer. Normal [facility] Nursing Note Patient awakens for assessment. She is sleepy but follows all commands. She answers all questions appropriately. Neuro checks are within normal limits. She is oriented x4. Able to demonstrate use of call light. Bed alarm on for safety. Dr Ontiveros updated. [facility] Progress Noteon 07-09-2022 Progress Note Physical Therapy Facility/Department: Physical Therapy Daily Treatment Note NAME: Kathy [...] of Anemia, Anxiety, Arrhythmia, Arthritis, Cancer (CMS/HCC) ([facility]), CHF (congestive heart failure) (CMS/HCC) ([facility]), CKD (chronic kidney disease), COPD (chronic obstructive pulmonary disease) ([facility]), Depression, GERD (gastroesophageal reflux disease), Heart valve disease, Hyperlipidemia, Hypertension, Irritable bowel syndrome, Joint pain, Myocardial infarction (CMS/HCC) ([facility]), Pacemaker, PAD (peripheral artery disease) ([facility]), and Sleep apnea. has a past surgical history that includes stent insertion (historical); pacemaker (historical) (2019); Hysterectomy; Breast biopsy (Bilateral); Insert / replace / remove pacemaker; Coronary stent placement; Tonsillectomy; and Abdominal aortic aneurysm repair (07/05/2022). Restrictions Restrictions/Precauti ons Restrictions/Precauti ons: General Precautions Implants present? : (chronic pacemaker) [...] Inpatient Mobility Raw Score: 17 Mobility Inpatient [place] [facility] G-Code Modifier: CK Goals Encounter Problems [...] Out 1544 Minutes 23 Timed Code Treatment (more content not included)... [facility] Progress Note Patient re-evaluated at bedside. She recalls the [...] discharge with Dr. Parker. Department of Surgery #[id number] [facility] Progress Note - Attestation signed by Lnaa Parker MD at 07/09/2022 3:56 PM I saw and evaluated the patient. I agree with the findings and plan of care as documented in the resident?s note unless otherwise noted below. Morning lethargy [...] one more day. Anticipate discharge home tomorrow. Department of Surgery - Progress Note -Vascular [...] Resp SpO2 07/09/22 0752 (!) 186/61 36.9 ?C (98.4 ?F) Temporal 68 18 95 % 07/09/22 0355 (!) 132/48 36.2 ?C (97.1 ?F) Temporal 62 16 -- 07/09/22 0145 (!) 177/43 -- -- 63 13 -- 07/09/22 0123 (!) 158/54 -- -- 62 -- -- 07/09/22 0015 (!) 150/58 -- -- 61 15 -- 07/09/22 0000 -- -- -- 60 17 -- 07/08/22 2300 -- -- -- 62 15 -- 07/08/22 2233 (!) 149/53 36 ?C (96.8 ?F) Temporal 61 12 95 % 07/08/222002 (!) 160/60 (!) 35.9 ?C (96.6 ?F) 61 17 98 % 07/08/22 1537 137/50 36.3 ?C (97.4 ?F) Temporal 60 20 96 % 07/08/22 1108 -- -- -- 60 18 -- 07/08/22 1107 (!) 128/48 36.1 ?C (97 ?F) Temporal 60 -- 91 % 07/08/22 1018 (!) 135/42 -- -- 60 12 -- 07/08/22 0838 (!) 167/54 36.3 ?C (97.3 ?F) Temporal 65 16 98 % 07/08/22 0811 [...] ALT, BILITOT, ALKPHOS in the last 72 (more content not included)... Normal [facility] Urinalysis complete panel (U )Ordered By: Melvin Swab on 07-09-2022 Bacteria LM.HPF (Urine sed) [#/Area] Few Abnormal Negative /HPF [facility] Bilirubin Ql (U) Negative Negative mg/dL [facility] Calcium oxalate crystals LM.HPF (Urine sed) [#/Area] Few Abnormal Negative /HPF [facility] Clarity (U) Clear Clear [facility] Color (U) Light Yellow Lt. Yellow [facility] Epithelial cells.squamous LM.HPF (Urine sed) [#/Area] 0-2 [facility] Glucose Ql (U) 150 mg/dL Abnormal Normal (<70) [facility] Hemoglobin Ql (U) Negative Negative mg/dL [facility] Hyaline casts Auto (Urine sed) [#/Area] Negative Negative /LPF [facility] Interpretation and review of laboratory results Abnormal [facility] Ketones (U) [Mass/Vol] Negative Negat jessenia mg/dL [facility] Leukocyte esterase Test strip Ql (U) Negative Negative Cristiana/uL [facility] Nitrite Ql (U) Negative Negative [facility] pH (U) 6.0 [pH] 5.0 - 8.0 pH [facility] Protein (U) [Mass/Vol] 10 mg/dL Abnormal Negative [facility] RBC LM.HPF (Urine sed) [#/Area] 0-2 [facility] Specific gravity (U) [Rel density] 1.009 1.005 - 1.030 [facility] Urobilinogen (U) [Mass/Vol] Normal Normal (0-1) mg/dL [facility] WBC LM.HPF (Urine sed) [#/Area] 0-2 [facility] Basic metabolic 1998 panelOr dered By: Werner Camarena on 07-08-2022 Anion gap [Moles/Vol] 5 mmol/L 3 - 13 mmol/L [facility] Calcium [Mass/Vol] 7.6 mg/dL Low 8.4 - 10. 4 mg/dL [facility] Chloride [Moles/Vol] 103 mmol/L 98 - 10 7 mmol/L [facility] CO2 [Moles/Vol] 26 mmol/L 22 - 30 mmol/L [facility] Creatinine [Mass/Vol] 1.12 mg/dL High 0.52 - 1.04 mg/dL [facility] GFR/1.73 sq M.predicted MDRD (S/P/Bld) [Vol rate/Area] 52.0 mL/min/{1.73_m2} Low - PINF [facility] Comment on above: Calculation based on the Chronic Kidney Disease Epidemiology Collaboration (CKD-EPI) equation refit without adjustment for race Glucose [Mass/Vol] 101 mg/dL High 70 - 100 mg/dL [facility] Interpretation and review of laboratory results Abnormal [facility] Potassium [Moles/Vol] 3.5 mmol/L 3.5 - 5.1 mmol/L [facility] Sodium [Moles/Vol] 134 mmol/L Low 135 - 145 mmol/L [facility] Urea nitrogen [Mass/Vol] 24 mg/dL High 7 - 17 mg/dL [facility] CAREC[facility]ORDon [facility]-08-2022 [facility] Initial Assessment Date: 07/08/2022 Patient Name: Kathy Puri : 1950 Patient Information Source of Information: Patient Cognition/Language: WFL - Within Functional Limits Permission given to speak with patient route service representative/yungi chang as indicated: Confirmation of Payer with patient/family: Yes Payer Name: [facility] Dual : No Confirmation of Primary Care [...] of Daily Living Ambulation: Independent Bathing/Dressing: Independent Elimination/Continenc e/Toileting: Independent Feeding: Independent Who Assists with Activities of Daily Living: Instrumental Activities of Daily Living Prescription Coverage: Yes Pharmacy Used: [facility] Medication Management: (picks up rx, student fills weekly pill box.) Transportation/Shoppi ng: Assistance Provider Transportation/Shoppi ng Assistance Provider Name: family Transportation Mode: Car [...] needs. TCC to follow. Jackie Kelly RN [facility] CAREPLN Problem: Pain - Adul t Goal: Verbalizes/displays adequate comfort level or baseline comfort level Outcome: Progressing Problem: Safety - Adult Goal: Free from fall injury Outcome: Progressing Problem: Discharge Planning Goal: Discharge to home or other facility with appropriate resources Outcome: Progressing Normal [facility] CBC panel Auto (Bld)on 07-08 Erythrocyte distribution width (RBC) [Ratio] 14.3 % 11.5 - 14.5 % [facility] Hematocrit (Bld) [Volume fraction] 21.9 % Low 35.0 - 47.0 % [facility] Hemoglobin (Bld) [Mass/Vol] 7.5 g/dL Low 11.7 - 16.0 g/dL [facility] Interpretation and review of laboratory results Abnormal [facility] MCH (RBC) [Entitic mass] 31.3 pg 26.0 - 34.0 pg [facility] MCHC (RBC) [Mass/Vol] 34.1 % 32.0 - 36.0 % [facility] MCV (RBC) [Entitic vol] 91.6 fL 80.0 - 98.0 fL [facility] Platelet mean volume (Bld) [Entitic vol] 8.9 fL 7.4 - 12.4 fL [facility] Platelets (Bld) [#/Vol] 156 10*3/uL 140 - 440 10*3/uL [facility] RBC (Bld) [#/Vol] 2.39 10*6/uL Low 3.8 - 5.20 10*6/uL [facility] WBC (Bld) [#/Vol] 10.0 10*3/uL 3.6 - 10.7 10*3/uL [facility] CT ABDOMEN PELVIS WO IV CONT ISHMAELTon 07-08-2022 CT ABDOMEN PELVIS WO IV CONTRAST Patient Name: KATHY PURI : 1950 Exam Date/Time: 07/08/2022 11:29 Procedure: CT ABDOMEN PELVIS WO IV CONTRAST Ordering Provider: PARKER MADELINE Reason For Exam: s/p EVAR, eval for RP hematoma CT ABDOMEN AND PELVIS WITHOUT IV CONTRAST CLINICAL HISTORY: Abdominal aortic aneurysm status post endovascular repair on 07/05/2022. TECHNIQUE: CT of the abdomen and pelvis was performed without IV contrast using standard technique. Dose reduction was employed with automated exposure control. Contrast: None COMPARISON: CT 04/09/2022 RESULT: Limitations: Unenhanced imaging is limited for the evaluation of vascular structures and of some intra-abdominal and pelvic pathology. Liver: No mass. Biliary: No bile duct dilation. Hyperattenuation of the gallbladder may represent vicarious excretion of contrast from previous study. Presence of sludge is not excluded. Spleen: No mass. No splenomegaly. Pancreas: No mass or duct dilation. Adrenals:No mass. Kidneys: 2 cm cyst of the right interpolar kidney. Vascular calcifications noted in the right kidney. No obstructing renal calculi. No hydronephrosis. Persistent cortical enhancement of the left kidney suggesting a persistent mammogram. No significant enhancement of the right kidney. GI tract: No dilation. Appendix is nondilated. Diverticulosis without changes of diverticulitis. Lymph nodes: No abdominal lymphadenopathy. Mesentery/Peritoneum: No ascites or mass. Retroperitoneum: No mass. No hematoma. Mild stranding adjacent to the aorta and bilateral common iliac arteries is likely postoperative. Vasculature: Interval postoperative changes of infrarenal fusiform aortic aneurysm repair with aortobiiliac stent grafting with stenting material noted in the suprarenal aorta and extending to the bilateral common iliac arteries. Patency of the stent and integrity cannot be determined on noncontrast acquisition. Hyperattenuating contrast and air are noted in the excluded aneurysm sac, likely postoperative. Excluded aneurysm sac measures approximately 5.3 cm, not significantly change since prior CT. Pelvis: Stranding adjacent to the bilateral common iliac arteries, likely postoperative. Urinary bladder is suboptimally distended and suboptimally assessed. Bones/Soft Tissues: Postoperative changes in bilateral inguinal regions. New 2.6 x 1.8 cm hyperattenuating hematoma in the right inguinal region (series 3 image 121) and 1.6 x 1.7 cm hematoma in the left inguinal region (series 3 image 128). Midline rectus diastases. Trace subcutaneous soft tissue gas in the inguinal regions, likely postoperative. Degenerative changes of the lumbar spine. Lower thorax: Small left and trace right pleural effusions. Bibasilar atelectasis/scarring. Mild interlobular septal thickening and groundglass opacities are nonspecific though commonly seen with pulmonary edema. Cardiomegaly. Hypoattenuation of the blood pool relative to the interventricular septum, suggestive of anemia. Partially imaged cardiac device leads. IMPRESSION: No evidence of an acute intra-abdominal hematoma, specifically no retroperitoneal hematoma. Postoperative changes of infrarenal abdominal aorta aneurysm as discussed. Contrast material and air in excluded aneurysm sac is presumed be postoperative. Small hematomas in the bilateral inguinal regions, likely postoperative related to access. Persistent nephrogram on the left and vicarious excretion of contrast in the gallbladder, suggesting renal insufficiency, possibly related to acute tubular necrosis or contrast-induced nephropathy if in the appropriate clinical setting. Correlate with renal function. COMMUNICATION: Notification of these findings was made to LANA PARKER via [employer] Secure Chat on 07/08/2022 3:49 PM EDT. Report Dictated on Electronically Signed By: Brandyn Gibbons Electronically Signed Date/Time: 07/08/2022 3:50 PM EDT [facility] CT Abdomen WO contraston No evidence of an acute intra-abdominal hematoma, specifically no retroperitoneal hematoma. Postoperative changes of infrarenal abdominal aorta aneurysm as discussed. Contrast material and air in excluded aneurysm sac is presumed be postoperative. Small hematomas in the bilateral inguinal regions, likely postoperative related to access. Persistent nephrogram on the left and vicarious excretion of contrast in the gallbladder, suggesting renal insufficiency, possibly related to acute tubular necrosis or contrast-induced nephropathy if in the appropriate clinical setting. Correlate with renal function. COMMUNICATION: Notification of these findings was made to LANA PARKER via [employer] Chat on 07/08/2022 3:49 PM EDT. Report Dictated on Electronically Signed By: Brandyn Gibbons Electronically Signed Date/Time: 07/08/2022 3:50 PM EDT [facility] Patient Name: KATHY PURI : 1950 Exam Date/Time: 07/08/2022 11:29 Procedure: CT ABDOMEN PELVIS WO IV CONTRAST Ordering Provider: PARKER MADELINE Reason For Exam: s/p EVAR, eval for RP hematoma CT ABDOMEN AND PELVIS WITHOUT IV CONTRAST CLINICAL HISTORY: Abdominal aortic aneurysm status post endovascular repair on 07/05/2022. TECHNIQUE: CT of the abdomen and pelvis was performed without IV contrast using standard technique. Dose reduction was employed with automated exposure control. Contrast: None COMPARISON: CT 04/09/2022 RESULT: Limitations: Unenhanced imaging is limited for the evaluation of vascular structures and of some intra-abdominal and pelvic pathology. Liver: No mass. Biliary: No bile duct dilation. Hyperattenuation of the gallbladder may represent vicarious excretion of contrast from previous study. Presence of sludge is not excluded. Spleen: No mass. No splenomegaly. Pancreas: No mass or duct dilation. Adrenals:No mass. Kidneys: 2 cm cyst of the right interpolar kidney. Vascular calcifications noted in the right kidney. No obstructing renal calculi. No hydronephrosis. Persistent cortical enhancement of the left kidney suggesting a persistent mammogram. No significant enhancement of the right kidney. GI tract: No dilation. Appendix is nondilated. Diverticulosis without changes of diverticulitis. Lymph nodes: No abdominal lymphadenopathy. Mesentery/Peritoneum: No ascites or mass. Retroperitoneum: No mass. No hematoma. Mild stranding adjacent to the aorta and bilateral common iliac arteries is likely postoperative. Vasculature: Interval postoperative changes of infrarenal fusiform aortic aneurysm repair with aortobiiliac stent grafting with stenting material noted in the suprarenal aorta and extending to the bilateral common iliac arteries. Patency of the stent and integrity cannot be determined on noncontrast acquisition. Hyperattenuating contrast and air are noted in the excluded aneurysm sac, likely postoperative. Excluded aneurysm sac measures approximately 5.3 cm, not significantly change since prior CT. Pelvis: Stranding adjacent to the bilateral common iliac arteries, likely postoperative. Urinary bladder is suboptimally distended and suboptimally assessed. Bones/Soft Tissues: Postoperative changes in bilateral inguinal regions. New 2.6 x 1.8 cm hyperattenuating hematoma in the right inguinal region (series 3 image 121) and 1.6 x 1.7 cm hematoma in the left inguinal region (series 3 image 128). Midline rectus diastases. Trace subcutaneous soft tissue gas in the inguinal regions, likely postoperative. Degenerative changes of the lumbar spine. Lower thorax: Small left and trace right pleural effusions. Bibasilar atelectasis/scarring. Mild interlobular septal thickening and groundglass opacities are nonspecific though commonly seen with pulmonary edema. Cardiomegaly. Hypoattenuation of the blood pool relative to the interventricular septum, suggestive of anemia. Partially imaged cardiac device leads. [facility] Brandyn Gibbons MD - 07/08/2022 Patient Name: KATHY PURI : 1950 [id number] Exam Date/Time: 07/08/2022 11:29 Procedure: CT ABDOMEN PELVIS WO IV CONTRAST Ordering Provider: PARKER MADELINE Reason For Exam: s/p EVAR, eval for RP hematoma CT ABDOMEN AND PELVIS WITHOUT IV CONTRAST CLINICAL HISTORY: Abdominal aortic aneurysm status post endovascular repair on 07/05/2022. TECHNIQUE: CT of the abdomen and pelvis was performed without IV contrast using standard technique. Dose reduction was employed with automated exposure control. Contrast: None COMPARISON: CT 04/09/2022 RESULT: Limitations: Unenhanced imaging is limited for the evaluation of vascular structures and of some intra-abdominal and pelvic pathology. Liver: No mass. Biliary: No bile duct dilation. Hyperattenuation of the gallbladder may represent vicarious excretion of contrast from previous study. Presence of sludge is not excluded. Spleen: No mass. No splenomegaly. Pancreas: No mass or duct dilation. Adrenals:No mass. Kidneys: 2 cm cyst of the right interpolar kidney. Vascular calcifications noted in the right kidney. No obstructing renal calculi. No hydronephrosis. Persistent cortical enhancement of the left kidney suggesting a persistent mammogram. No significant enhancement of the right kidney. GI tract: No dilation. Appendix is nondilated. Diverticulosis without changes of diverticulitis. Lymph nodes: No abdominal lymphadenopathy. Mesentery/Peritoneum: No ascites or mass. Retroperitoneum: No mass. No hematoma. Mild stranding adjacent to the aorta and bilateral common iliac arteries is likely postoperative. Vasculature: Interval postoperative changes of infrarenal fusiform aortic aneurysm repair with aortobiiliac stent grafting with stenting material noted in the suprarenal aorta and extending to the bilateral common iliac arteries. Patency of the stent and integrity cannot be determined on noncontrast acquisition. Hyperattenuating contrast and air are noted in the excluded aneurysm sac, likely postoperative. Excluded aneurysm sac measures approximately 5.3 cm, not significantly change since prior CT. Pelvis: Stranding adjacent to the bilateral common iliac arteries, likely postoperative. Urinary bladder is suboptimally distended and suboptimally assessed. Bones/Soft Tissues: Postoperative changes in bilateral inguinal regions. New 2.6 x 1.8 cm hyperattenuating hematoma in the right inguinal region (series 3 image 121) and 1.6 x 1.7 cm hematoma in the left inguinal region (series 3 image 128). Midline rectus diastases. Trace subcutaneous soft tissue gas in the inguinal regions, likely postoperative. Degenerative changes of the lumbar spine. Lower thorax: Small left and trace right pleural effusions. Bibasilar atelectasis/scarring. Mild interlobular septal thickening and groundglass opacities are nonspecific though commonly seen with pulmonary edema. Cardiomegaly. Hypoattenuation of the blood pool relative to the interventricular septum, suggestive of anemia. Partially imaged cardiac device leads. IMPRESSION: No evidence of an acute intra-abdominal hematoma, specifically no retroperitoneal hematoma. Postoperative changes of infrarenal abdominal aorta aneurysm as discussed. Contrast material and air in excluded aneurysm sac is presumed be postoperative. Small hematomas in the bilateral inguinal regions, likely postoperative related to access. Persistent nephrogram on the left and vicarious excretion of contrast in the gallbladder, suggesting renal insufficiency, possibly related to acute tubular necrosis or contrast-induced nephropathy if in the appropriate clinical setting. Correlate with renal function. COMMUNICATION: Notification of these findings was made to LANA PARKER via [employer] Secure Chat on 07/08/2022 3:49 PM EDT. Report Dictated on Electronically Signed By: Brandyn Gibbons Electronically Signed Date/Time: 07/08/2022 3:50 PM EDT [employer] Radiology Study observation (narrative) [employer] CT Abdomen WO contrastOrdere d By: Brandyn Gibbons on 07-08-2022 [employer] Phone: ECG 12-LEADon 07-08-2022 ECG 12-LEAD IMPRESSION: Atrial flutter Electronically Signed On 07-08-2022 17:23:04 EDT by Sampson Jose Normal [employer] [facility] No Panel InformationOrdered By: Sampson Jose on 07-08-2022 P [place] degrees [employer] Phone: SC Interval ms [employer] Phone: QRS [place] 2 degrees [employer] Phone: QRSD Interval 123 ms [facility] [employer] Work Phone: QT Interval 344 ms [facility] [employer] Work Phone: QTC Interval 503 ms [facility] [employer] Work Phone: T Wave [place] 229 degrees [facility] [employer] Work Phone: [facility] [employer] Work Phone: No Panel Informationon 07-08 Atrial flutter Electronically Signed On 07-08-2022 17:23:04 EDT by Sampson Jose Sampson Hernández MD - 07/08/2022 IMPRESSION: Atrial flutter Electronically Signed On 07-08-2022 17:23:04 EDT by Sampson Jose [facility] Progress Noteon 07-08-2022 Progress Note - Attestation signed by Lana Parker MD at 07/08/2022 5:32 PM I saw and evaluated the patient. I agree with the findings and plan of care as documented in the resident?s note unless otherwise noted below. Doing well [...] labs in AM. Anticipate discharge home tomorrow. Department of Surgery - Progress Note -Vascular PATIENT NAME: Kathy Puri : 1950 ATTENDING PHYSICIAN: Lana Parker MD ADMIT DATE: 07/05/2022 TODAY'S DATE: 07/08/2022 SUBJECTIVE: Overnight: Patient noted to go into a flutter, quickly resolved. Patient continues to report intermittent back pain, which she contributes to the stent placement, controlled with current pain regimen. Denies have any nausea/vomiting/fever /chills/chest pain/shortness of breath. Vomited spontaneously. Out of bed yesterday working with PT. Tolerating diet ROS: As above unless otherwise noted OBJECTIVE: VITALS: Patient Vitals for the past 24 hrs: BP Temp Temp src Pulse Resp SpO2 Height 07/08/22 0438 102/56 -- -- 68 -- -- -- 07/08/22 0330 (!) 150/60 36.7 ?C (98 ?F) Temporal 68 16 92 % -- 07/07/22 2300 -- -- -- -- -- 91 % -- 07/07/22 2233 (!) 151/73 36.5 ?C (97.7 ?F) Temporal 64 13 (!) 89 % -- 07/07/22 1914 (!) 127/49 36.4 ?C (97.6 ?F) Temporal 63 17 91 % -- 07/07/22 1750 (!) 146/69 -- -- (!) 127 18 -- -- 07/07/22 1622 136/64 -- -- (!) 130 18 -- -- 07/07/22 1522 95/51 36.1 ?C (97 ?F) Temporal (!) 127 17 95 % -- 07/07/22 1044 -- (!) 35.3 ?C (95.5 ?F) Temporal 60 -- 92 % -- 07/07/22 1040 -- -- -- -- -- -- 5' (1.524 m) 07/07/22 1012 (!) 161/41 -- -- -- -- -- -- 07/07/22 0730 (!) 156/60 36.1 ?C (96.9 ?F) Temporal -- -- -- -- INTAKE/OUTPUT: No [...] No lab exists for component: ALB IMAGING: AROLDO CASTELLANOS (more content not included)... Normal [facility] [employer] [facility] Vital signsOrdered By: Angelia Jose on 07-08-2022 Heart rate 128 /min bpm [facility] [employer] Work Phone: Basic metabolic 1998 panelOr dered By: Kristine Griffin on 07-07-2022 Anion gap [Moles/Vol] 4 mmol/L 3 - 13 mmol/L [facility] [employer] Calcium [Mass/Vol] 8.1 mg/dL Low 8.4 - 10. 4 mg/dL [facility] [employer] Chloride [Moles/Vol] 106 mmol/L 98 - 10 7 mmol/L [facility] [employer] CO2 [Moles/Vol] 26 mmol/L 22 - 30 mmol/L [facility] [employer] Creatinine [Mass/Vol] 0.95 mg/dL 0.52 - 1.04 mg/dL [facility] GFR/1.73 sq M.predicted MDRD (S/P/Bld) [Vol rate/Area] 63.4 mL/min/{1.73_m2} - PINF [facility] Comment on above: Calculation based on the Chronic Kidney Disease Epidemiology Collaboration (CKD-EPI) equation refit without adjustment for race Glucose [Mass/Vol] 115 mg/dL High 70 - 100 mg/dL [facility] Interpretation and review of laboratory results Abnormal [facility] Potassium [Moles/Vol] 4.5 mmol/L 3.5 - 5.1 mmol/L [facility] Sodium [Moles/Vol] 136 mmol/L 135 - 145 mmol/L [facility] Urea nitrogen [Mass/Vol] 22 mg/dL High 7 - 17 mg/dL [facility] CBC panel Auto (Bld)Ordered By: Reny Lance on 07-07-2022 Erythrocyte distribution width (RBC) [Ratio] 14.9 % High 11.5 - 14.5 % [facility] Hematocrit (Bld) [Volume fraction] 25.6 % Low 35.0 - 47.0 % [facility] Hemoglobin (Bld) [Mass/Vol] 8.6 g/dL Low 11.7 - 16.0 g/dL [facility] Interpretation and review of laboratory results Abnormal [facility] MCH (RBC) [Entitic mass] 31.2 pg 26.0 - 34.0 pg [facility] MCHC (RBC) [Mass/Vol] 33.7 % 32.0 - 36.0 % [facility] MCV (RBC) [Entitic vol] 92.4 fL 80.0 - 98.0 fL [facility] Platelet mean volume (Bld) [Entitic vol] 8.9 fL 7.4 - 12.4 fL [facility] Platelets (Bld) [#/Vol] 168 10*3/uL 140 - 440 10*3/uL [facility] RBC (Bld) [#/Vol] 2.76 10*6/uL Low 3.8 - 5.20 10*6/uL [facility] WBC (Bld) [#/Vol] 11.4 10*3/uL High 3.6 - 10.7 10*3/uL [facility] Progress Noteon 07-07-2022 Progress Note Nutrition Assessment Type and Reason for Visit: [...] assess Fluid Accumulation: No significant fluid accumulation Apple Packing Header Strength: Not Performed Nutrition Assessment: +Nutrition screen. 72F w/ PMHx: CAD s/p PCI, CHF with reduced EF (11/2021 of 15-20%; 06/11/22 EF 30%), Pacemaker for tachy-erica syndrome, atrial fibrillation on Eliquis, COPD, and emphysema. She also has a history of bilateral SFA stenting. Admitted to [facility] for infrarenal abdominal aortic aneurysm without rupture, POD#2 s/p EVAR. Having hypertensive episodes this admission, prn antihypertensive given. Advanced to a regular diet, overall vance diet. Having some back pain, likely from stent placement. Endorses some nausea today w/ associated emesis. Hypoactive BS. Estimated Daily Nutrient Needs: Energy Requirements Based On: Kcal/kg Weight Used for Energy Requirements: [place] Weight for Energy Calculation (kg): 45 kg Total Energy Requirements (kcals/day): 1350 Weight Used for Protein Requirements: [place] Weight in Kg Used for Protein Requirements: [...] Current Body Weight: 59.4 kg (131 lb) [place] Body Weight (lbs) (Calculated): 100 lbs [place] Body Weight (Kg) (Calculated): 45 kg % [place] Body Weight (Calculated): 131 % BMI (kg/m2) [...] of estimated needs Nutrition Monitoring and Evaluation: Behavioral-Environmen marc Outcomes: None Identified Food/Nutrient Intake Outcomes: Food and Nutrient Intake, Supplement Intake Physical Signs/Symptoms Outcomes: Skin, GI Status, Nausea or Vomiting, Hemodynamic Status Discharge Planning: Too soon to determine Jacqueline Ayad MS, RD, LD Contact: or [facility] Basic metabolic 1998 panelon 07-06-2022 Anion gap [Moles/Vol] 6 mmol/L 3 - 13 mmol/L [facility] Calcium [Mass/Vol] 6.0 mg/dL Low 8.4 - 10. 4 mg/dL [facility] Chloride [Moles/Vol] 116 mmol/L High 98 - 10 7 mmol/L [facility] CO2 [Moles/Vol] 18 mmol/L Low 22 - 30 mmol/L [facility] Creatinine [Mass/Vol] 0.76 mg/dL 0.52 - 1.04 mg/dL [facility] GFR/1.73 sq M.predicted MDRD (S/P/Bld) [Vol rate/Area] 82.9 mL/min/{1.73_m2} - PINF [facility] Comment on above: Calculation based on the Chronic Kidney Disease Epidemiology Collaboration (CKD-EPI) equation refit without adjustment for race Glucose [Mass/Vol] 91 mg/dL 70 - 100 mg/dL [facility] Interpretation and review of laboratory results Abnormal [facility] Potassium [Moles/Vol] 2.9 mmol/L Low 3.5 - 5.1 mmol/L [facility] Sodium [Moles/Vol] 140 mmol/L 135 - 145 mmol/L [facility] Urea nitrogen [Mass/Vol] 17 mg/dL 7 - 17 mg/dL [facility] CAREPLNon 07-06-2022 CAREPLN Problem: Pain - Adul t Goal: Verbalizes/displays adequate comfort level or baseline comfort level Outcome: Progressing Problem: Safety - Adult Goal: Free from fall injury Outcome: Progressing Problem: Discharge Planning Goal: Discharge to home or other facility with appropriate resources Outcome: Progressing Normal [facility] CBC panel Auto (Bld)Ordered By: Brody Barrios on 07-06-2022 Erythrocyte distribution width (RBC) [Ratio] 14.5 % 11.5 - 14.5 % [facility] Hematocrit (Bld) [Volume fraction] 20.2 % Low 35.0 - 47.0 % [facility] Hemoglobin (Bld) [Mass/Vol] 7.0 g/dL Low 11.7 - 16.0 g/dL [facility] Interpretation and review of laboratory results Abnormal [facility] MCH (RBC) [Entitic mass] 32.0 pg 26.0 - 34.0 pg [facility] MCHC (RBC) [Mass/Vol] 34.7 % 32.0 - 36.0 % [facility] MCV (RBC) [Entitic vol] 92.3 fL 80.0 - 98.0 fL [facility] Platelet mean volume (Bld) [Entitic vol] 8.7 fL 7.4 - 12.4 fL [facility] Platelets (Bld) [#/Vol] 111 10*3/uL Low 140 - 440 10*3/uL [facility] RBC (Bld) [#/Vol] 2.19 10*6/uL Low 3.8 - 5.20 10*6/uL [facility] WBC (Bld) [#/Vol] 10.0 10*3/uL 3.6 - 10.7 10*3/uL [facility] Hemoglobin (Bld) [Mass/Vol]o n 07-06-2022 Interpretation and review of laboratory results Abnormal [facility] Laboratory - Chemistry and C hemistry - challengeOrdered By: Gini Gonzalez on 07-06-2022 Potassium [Moles/Vol] 5.0 mmol/L 3.5 - 5.1 mmol/L [facility] Laboratory - Hematology and Cell countson 07-06-2022 Hemoglobin (Bld) [Mass/Vol] 9.7 g/dL Low 11.7 - 16.0 g/dL [facility] Potassium [Moles/Vol]Ordered By: Gini Gonzalez on 07-06-2022 Interpretation and review of laboratory results Normal [facility] Progress Noteon 07-06-2022 Progress Note - Attestation signed by Lana Parker MD at 07/06/2022 12:34 PM I saw and evaluated the patient. I agree with the findings and plan of care as documented in the resident?s note unless otherwise noted below. Hypertensive overnight requiring PRN administration. SBP 165 during my evaluation. Will ensure home medications have been restarted. She notes back pain but thinks it may be related to her laying position. DP and PT signals are present bilaterally. Motion and sensation intact bilaterally in all extremities. Femoral incisions are c/d/I without hematoma. PT/OT. Department of Surgery - Progress Note -Vascular [...] 94 % 07/06/22 0324 (!) 167/61 36.7 ?C (98 ?F) Temporal 67 16 93 % 07/06/22 0300 (!) 176/49 -- -- 65 11 92 % 07/06/22 0230 (!) 176/50 -- -- 63 (!) 9 94 % 07/06/22 0200 (!) 170/50 -- -- 61 10 97 % 07/06/22 0130 (!) 173/54 -- -- 63 10 -- 07/06/22 0100 (!) 187/47 -- -- 64 11 97 % 07/06/22 0015 (!) 177/65 36.7 ?C (98.1 ?F) Temporal 66 16 97 % 07/06/22 0000 (!) 182/60 -- -- 60 13 98 % 07/05/22 2300 (!) 174/50 -- -- 60 11 98 % 07/05/22 2200 (!) 162/54 -- -- 60 (!) 9 98 % 07/05/22 2100 (!) 145/45 -- -- 60 12 98 % 07/05/22 2000 (!) 151/42 -- -- 60 10 94 % 07/05/22 1935 (!) 162/45 36.5 ?C (97.7 ?F) Temporal 60 11 98 % 07/05/22 1900 [...] 16 99 % 07/05/22 1615 -- 36.8 ?C (98.2 ?F) Temporal 60 18 99 % 07/05/22 1600 [...] 99 % 07/05/22 1401 (!) 143/61 36.6 ?C (97.8 ?F) Temporal 60 16 99 % INTAKE/OUTPUT: I/O [...] is intact. Motor: Motor function is intact. Psychiatric (more content not included)... Normal [facility] No Panel Informationon 07-05 There is no interpretation needed for this exam. IMAGING Nursing Noteon 07-05-[address]Lamb treviño in regards to patient elevated BP. Normal [facility] Nursing Note Updated pt's sister over phone that pt is doing well in recovery and will be admitted to 1 C- 133 A shortly. Normal [facility] Nursing Note Sistermaia updated via phone call on pt status. [facility] Op Noteon 07-05-2022 Op Note Date: 07/05/2022 Location: [facility] OR Name: Kathy Puri, : 1950, Diagnosis Pre-op Diagnosis * Infrarenal abdominal aortic aneurysm, without rupture (HCC) [I71.43] Post-op Diagnosis * Infrarenal abdominal aortic aneurysm, without rupture (HCC) [I71.43] Procedures ENDOVASCULAR REPAIR OF ABDOMINAL AORTIC ANEURYSM 18419 - SC EVASC RPR DPLMNT [id number] OPEN FEMORAL ARTERY EXPOSURE FOR DELIVERY OF ENDOVASCULAR PROSTHESIS 71795 - SC OPN FEM ART EXPOS DLVR [...] STENT CARLOS 10MM 7FR 25MM 135CM - [id number] Implanted Staff: Volunteer Services Manager: Georgina Daley RN Nurse Practitioner: Jolynn Meza APRN - CHEMICAL WASTE MANAGEMENT TECHNICIAN Relief Scrub: Fercho Crystal Scrub Person: Landy Daivd Findings: See full op note for details. [...] (two hours if receiving Vancomycin or flouroquinolone) [facility] 36on 07-02-2022 36 Patient is scheduled for EVAR repair AAA this 07/05/[address] Parker[address] Matt Brandon, Rn via [facility] calls to let us know that although she is a rn homecare for [facility], she is not able to see her post operatively if home care is needed (patient may state she already has home care). New home care order through [facility] would need to be placed if necessary. Dr Parker informed [facility] 36on 06-28-2022 36 I have tried to call patient back for 2 days her voice mail box is full. At no point in her OV or in surgical scheduling did she mention a mcc. I find nothing in her chart. Trying to find out what facility called. [facility] ECG 12-LEADon 06-28-2022 ECG 12-LEAD IMPRESSION: Atrial-paced rhythm Incomplete left bundle branch block ST depr, consider ischemia, anterolateral lds Electronically Signed On 06-28-2022 8:09:29 EDT by Elgin Kingston [facility] 36on 06-27-2022 36 FYI Spoke with Matt at nursing facility that patient resides in, nurse asking what medications are to be held/continued. Below information given [facility] XR CHEST 2 VIEWSon 3 XR CHEST 2 VIEWS Patient Name: KATHY PURI : 1950 Exam Date/Time: 06/26/2022 13:26 Procedure: XR CHEST 2 VIEWS Ordering Provider: MENG LAURA Reason For Exam: PRE-OP MAJOR SURGERY PA AND LATERAL CHEST CLINICAL INDICATION: PRE-OP MAJOR SURGERY TECHNIQUE: PA and Lateral chest COMPARISON: CT abdomen pelvis 04/09/2022 FINDINGS: Dual lead cardiac pacemaker. Calcification of the thoracic aorta. Unchanged mild prominence of the cardiac silhouette. No confluent consolidation. Reticular opacities in both lungs.. There is no sizable pleural effusion. No evidence of a pneumothorax. Degenerative change of the spine. IMPRESSION: Reticular opacities in both lungs. Differential considerations include interstitial scarring, interstitial edema, or atypical infection. Unchanged mild prominence of the cardiac silhouette. Report Dictated on Electronically Signed By: Kemi Parry Electronically Signed Date/Time: 06/27/2022 7:42 AM EDT [facility] XR Chest 2 Viewson 3 Reticular opacities in both lungs. Differential considerations include interstitial scarring, interstitial edema, or atypical infection. Unchanged mild prominence of the cardiac silhouette. Report Dictated on Electronically Signed By: Kemi Parry Electronically Signed Date/Time: 06/27/2022 7:42 AM EDT [facility] Patient Name: KATHY PURI : 1950 Exam Date/Time: 06/26/2022 13:26 Procedure: XR CHEST 2 VIEWS Ordering Provider: MENG LAURA Reason For Exam: PRE-OP MAJOR SURGERY PA AND LATERAL CHEST CLINICAL INDICATION: PRE-OP MAJOR SURGERY TECHNIQUE: PA and Lateral chest COMPARISON: CT abdomen pelvis 04/09/2022 FINDINGS: Dual lead cardiac pacemaker. Calcification of the thoracic aorta. Unchanged mild prominence of the cardiac silhouette. No confluent consolidation. Reticular opacities in both lungs.. There is no sizable pleural effusion. No evidence of a pneumothorax. Degenerative change of the spine. [facility] Kemi Parry M D - 06/27/2022 Patient Name: KATHY PURI : 1950 Exam Date/Time: 06/26/2022 13:26 Procedure: XR CHEST 2 VIEWS Ordering Provider: MENG LAURA Reason For Exam: PRE-OP MAJOR SURGERY PA AND LATERAL CHEST CLINICAL INDICATION: PRE-OP MAJOR SURGERY TECHNIQUE: PA and Lateral chest COMPARISON: CT abdomen pelvis 04/09/2022 FINDINGS: Dual lead cardiac pacemaker. Calcification of the thoracic aorta. Unchanged mild prominence of the cardiac silhouette. No confluent consolidation. Reticular opacities in both lungs.. There is no sizable pleural effusion. No evidence of a pneumothorax. Degenerative change of the spine. IMPRESSION: Reticular opacities in both lungs. Differential considerations include interstitial scarring, interstitial edema, or atypical infection. Unchanged mild prominence of the cardiac silhouette. Report Dictated on Electronically Signed By: Kemi Parry Electronically Signed Date/Time: 06/27/2022 7:42 AM EDT [employer] XR Chest 2 ViewsOrdered By: Kemi Parry on 06-27-2022 [employer] Work Phone: PREPROCINSon 06-26-2022 PREPROCINS Medication List Accurate as of June 26, 2022 12:52 PM. Always use your most recent med list. acetaminophen 500 MG tablet Commonly known as: Tylenol Medication Adjustments for Surgery: Take morning of surgery Notes to patient: If needed albuterol 108 (90 Base) MCG/ACT inhaler Medication Adjustments for Surgery: Take morning of surgery Notes to patient: If needed amiodarone 200 MG tablet Commonly known as: Pacerone Medication Adjustments for Surgery: Take morning of surgery amLODIPine 2.5 MG tablet Commonly known as: Norvasc Medication Adjustments for Surgery: Take morning of surgery ascorbic acid 500 MG tablet Commonly known as: Vitamin C Notes to patient: Hold day of surgery atorvastatin 40 MG tablet Commonly known as: Lipitor Medication Adjustments for Surgery: Take morning of surgery busPIRone 10 MG tablet Commonly known as: Buspar Medication Adjustments for Surgery: Take morning of surgery cholecalciferol 25 MCG (1000 UT) capsule Commonly known as: Vitamin D-3 Notes to patient: Hold day of surgery clopidogrel 75 MG tablet Commonly known as: Plavix Medication Adjustments for Surgery: Take night before surgery dicyclomine 10 MG capsule Commonly known as: Bentyl Medication Adjustments for Surgery: Take morning of surgery Eliquis 5 MG tablet Generic drug: apixaban Medication Adjustments for Surgery: Stop 2 days before surgery Notes to patient: Last dose on 07/02. ferrous sulfate 325 (65 Fe) MG tablet Notes to patient: Hold day of surgery Fluticasone-Salmetero l 500-50 MCG/ACT aerosol powder Medication Adjustments for Surgery: Take morning of surgery furosemide 40 MG tablet Commonly known as: Lasix Notes to patient: Hold day of surgery gabapentin 300 MG capsule Commonly known as: Neurontin Medication Adjustments for Surgery: Take morning of surgery isosorbide mononitrate ER 60 MG 24 hr tablet Commonly known as: Imdur Medication Adjustments for Surgery: Take morning of surgery lidocaine 5 % patch Commonly known as: Lidoderm Notes to patient: Hold day of surgery metoprolol tartrate 100 MG tablet Commonly known as: Lopressor Medication Adjustments for Surgery: Take morning of surgery MULTIVITAMIN ADULT PO Notes to patient: Hold day of surgery nitroglycerin 0.4 MG SL tablet Commonly known as: Nitrostat Notes to patient: Take if needed pantoprazole 40 MG EC tablet Commonly known as: ProtoNix Medication Adjustments for Surgery: Take morning of surgery potassium chloride CR 20 MEQ ER tablet Commonly known as: K-Tab Notes to patient: Hold day of surgery traZODone 150 MG tablet Commonly known as: Desyrel Medication Adjustments for Surgery: Take night before surgery Vitamin E 100 units tablet Notes to patient: Hold day of surgery Additional Instructions: You may take Tylenol for pain. NO Motrin, ibuprofen or Advil for 24 hours prior to surgery or longer if instructed by your surgeon. NO Aleve or Naprosyn for 3 days prior to surgery or longer if instructed by your surgeon. DO NOT take aspirin or aspirin containing products for 5 days before surgery, or longer if instructed by your surgeon. Follow any instructions given to you by Dr. Parker; call the office with any questions. Shower with an antibacterial soap such as Dial or Safeguard before coming to the hospital. No makeup, lotion, powder, deodorant or body spays. No hair products. Remove all jewelry and leave it at home. Wear loose comfortable clothing to go home in. You may brush your teeth morning of surgery. Do not wear contacts day of surgery. No marijuana (THC), smoking or alcohol for 24 hours prior to surgery. Please arrange for a responsible adult to drive you home after your surgery and that there is a responsible adult with you for 24 hours post discharge. If you have specific questions, please call your surgeon. You will receive a call the day before your surgery to verify your arrival time and date. You will be asked to arrive at least two hours prior to your scheduled surgery time. Please bring your [employer] Surgical folder and medication list with you day of surgery. We encourage you to write down any questions you may have for the surgeon, anesthesiologist, or other members of the surgical team and bring it with you the day of surgery. Please bring photo ID and insurance information. FILLING LAYER UP AND PARKING IN THE MAIN DECK ARE FREE DAY OF SURGERY. PARKING IN THE DECK-- AFTER PARKING TAKE THE ELEVATOR TO LEVEL ONE AND TAKE THE BRIDGE TO THE HOSPITAL. GO TO THE RIGHT AND GO AROUND THE CORNER TO THE SAME DAY SURGERY DESK AND CHECK IN THERE. IF GOING IN THE MAIN ENTRANCE FROM [facility]-- TURN LEFT AND GO DOWN THE ENRIQUEZ TO THE H ELEVATORS AND TAKE THEM TO ONE, LEFT OFF THE ELEVATOR AND GO AROUND TO THE SAME DAY DESK AND CHECK IN. Normal [facility] XR Chest 2 Viewson 3 Radiology Study observation (narrative) [address] 06-14-2022 36 SURGERY: ENDOVASCULA R REPAIR OF AAA DATE OF SURGERY: 07/05/2022 7:30 AM PRE TESTIN06/26/2022 12:00 AUTH #: [id number] CARDIAC CLEARANCE YES CARDIAC DR TREVIÑO , PULMONARY DR TOBAR 05/28/2022 POST OP OR OV: 07/17/2022 10:15 MEDS TO HOLD: ELIQUIS HOLD 48 HOURS PRIOR, THE MORNING OF SURGERY HOLD FUROSEMIDE MEDS TO CONTINUE: PLAVIX, OTHERS [address] 06-13-2022 36 Received final cardiac clearance and copy of Echo done 06/11/22. Dr. TreviñoBwzym-Lyiqckomcdgh-hh eared patient on 06/12/22 Dr. Zack TobarJjhvgm-Lsmgfsutn-Hkdi red patient on 05/28/22. Dr. Parker reviewed the clearances and signed off on them. I will reach out to patient to schedule the surgery. [address] 06-12-2022 [address] Treviño's office and spoke with Adeline to make sure patient had the Echo done on 06/11/22. Patient did complete the Echo per Adeline and our form for Cardiac Clearance/Optimizatio n was re-faxed for confirmation after new Echo complete. Pending final outcome. [address] 05-31-2022 36 Noted will await Echocardiogram results. Normal [address] 05-30-2022 36 I called the patient back and answered [...] questions were answered to the patient's satisfaction. [facility] 36 Patient is going to be scheduled for: Endovascular Repair Of Abdominal Aortic Aneurysm, pending out come of Echocardiogram on 06/11/[address] Treviño. Patient is asking if she really has to have this surgery? She would like to speak with Dr. Parker again. Patient# [phone] [facility] 36 Clearance has been received from Dr. Treviño's [...] now on 06/11/22 at 2:00 pm at [facility]. [facility] Office Visiton 05-27-2022 Follow-up visit [id number] Darling Puri 1950 F Date Provider Department Center 05/27/2022 [id number] COON [facility] None Family History Problem Relation Age of Onset Hypertension Sister Hyperlipidemia Sister Family Status - Relation Status Age at Sister Level of Service:83892 [place] OFFICE/OUTPATIENT NEW MODERATE MDM 45-59 MINUTES Reason for Visit and Comments: New Patient [542] - (Dr Marroquin) Eval AAA; CTA 02/26/22 (in Pacs-measured by [employer] rep) [facility] 36on 05-17-2022 36 Patient called. OV 05/27/22 Dr Parker-Melissa Office [facility] 36on 05-16-[address] Marroquin's office-Annemarie. She gave me a number for patient's son Gilfjm-[phone]. I called and left a message on his voicemail to have his mother contact our office. Normal [facility] XR Cervical spine AP and Lat eral and obliqueon 09-08-2020 IMPRESSION: Cervical spondylosis. Counting reference: Craniocervical junction. Anatomic Variants: None. [employer] Rock[employer] Operator: ALEXI Transcribe Date/Time: Sep 08 2020 1:13P Dictated by : Pernell CARSON MD This examination was interpreted and the report reviewed and electronically signed by: Pernell CARSON MD on Sep 08 2020 1:16PM [facility] DIVISION OF RADIOLOGY * * *Final Report* * * DATE OF EXAM: Sep 08 2020 1:09PM WOX [id number] - XR CERVICAL 4V AP/LAT/OBL / PROCEDURE REASON: Cervicalgia * * * * Physician Interpretation * * * * EXAM: XR CERVICAL 4V AP/LAT/OBL HISTORY: Cervicalgia. VIEWS: AP, lateral, bilateral oblique. COMPARISON: No. FINDINGS: Satisfactory alignment. Narrowed mid and lower cervical interspaces with endplate sclerosis and marginal endplate spurring. Uncovertebral osteophytes mildly encroach at C4-5 and C5-6 neural foramina. Apophyseal joint osteophytes encroach at posterior left C2-3 neural foramen. DIVISION OF RADIOLOGY Provider, [facility] - 09/08/2020 * * *Final Report* * * DATE OF EXAM: Sep 08 2020 1:09PM WOX 5311 - XR CERVICAL 4V AP/LAT/OBL / PROCEDURE REASON: Cervicalgia * * * * Physician Interpretation * * * * EXAM: XR CERVICAL 4V AP/LAT/OBL HISTORY: Cervicalgia. VIEWS: AP, lateral, bilateral oblique. COMPARISON: No. FINDINGS: Satisfactory alignment. Narrowed mid and lower cervical interspaces with endplate sclerosis and marginal endplate spurring. Uncovertebral osteophytes mildly encroach at C4-5 and C5-6 neural foramina. Apophyseal joint osteophytes encroach at posterior left C2-3 neural foramen. IMPRESSION IMPRESSION: Cervical spondylosis. Counting reference: Craniocervical junction. Anatomic Variants: None. Hydraulic Rockbreaker Operator: PSCB Transcribe Date/Time: Sep 08 2020 1:13P Dictated by : Pernell CARSON MD This examination was interpreted and the report reviewed and electronically signed by: Pernell CARSON MD on Sep 08 2020 1:16PM EST [facility] Radiology Study observation (narrative) [facility] XR Cervical spine AP and Lat eral and obliqueOrdered By: Ccf Provider on 09-08-2020 [facility] XR Sacrum and Coccyx 3 Views on 04-06-2020 IMPRESSION: Unremarkable sacrum and coccyx. Hydraulic Rockbreaker Operator: PSCB Transcribe Date/Time: Apr 06 2020 8:01A Dictated by : ROHAN PETTY MD This examination was interpreted and the report reviewed and electronically signed by: ROHAN PETTY MD on Apr 06 2020 8:03AM EST DIVISION OF RADIOLOGY * * *Final Report* * * DATE OF EXAM: Apr 05 2020 7:10PM WOX [id number] - XR SACRUM/COCCYX 3V AP/LAT / PROCEDURE REASON: Pain in the coccyx * * * * Physician Interpretation * * * * Clinical information: Fall, pain AP and lateral views of the sacrum and coccyx were obtained. There is no fracture or other bony abnormality. The sacroiliac joints appear unremarkable. Disc space narrowing and facet hypertrophy involving the visualized lower lumbar spine. Vascular stents both inguinal regions. DIVISION OF RADIOLOGY Provider, [facility] - 04/06/2020 * * *Final Report* * * DATE OF EXAM: Apr 05 2020 7:10PM WOX 5246 - XR SACRUM/COCCYX 3V AP/LAT / PROCEDURE REASON: Pain in the coccyx * * * * Physician Interpretation * * * * Clinical information: Fall, pain AP and lateral views of the sacrum and coccyx were obtained. There is no fracture or other bony abnormality. The sacroiliac joints appear unremarkable. Disc space narrowing and facet hypertrophy involving the visualized lower lumbar spine. Vascular stents both inguinal regions. IMPRESSION IMPRESSION: Unremarkable sacrum and coccyx. Hydraulic Rockbreaker Operator: ALEXI Transcribe Date/Time: Apr 06 2020 8:01A Dictated by : ROHAN PETTY MD This examination was interpreted and the report reviewed and electronically signed by: ROHAN PETTY MD on Apr 06 2020 8:03AM EST [facility] XR Sacrum and Coccyx 3 Views Ordered By: Ccf Provider on 04-06-2020 [facility] XR Sacrum and Coccyx 3 Views on 04-05-2020 Radiology Study observation (narrative) [facility] Vital Signs Date Time Vital Sign Value Performing Clinician Faci lity 05-07-2023 15:38-0500 Body temperature 97.5 [degF] Kanwal Nuñez Work Phone: [facility] [employer] 05-07-2023 15:38-0500 Diastolic blood pressure 66 mm[Hg] Kanwal Jack MD Work Phone: [facility] [employer] 05-07-2023 15:38-0500 Heart rate 82 /min Kanwal Nuñez Work Phone: [facility] [employer] 05-07-2023 15:38-0500 Respiratory rate 16 /min Kanwal Nuñez Work Phone: [facility] [employer] 05-07-2023 15:38-0500 SaO2% (BldA) [Mass fraction] 93 % Kanwal Jack MD Work Phone: [facility] [employer] 05-07-2023 15:38-0500 Systolic blood pressure 151 mm[Hg] Kanwal Jack MD Work Phone: [facility] [employer] 05-07-2023 03:10-0500 Body height 157.5 cm Kanwal Nuñez Work Phone: [facility] [employer] 05-07-2023 03:10-0500 Body mass index (BMI) [Ratio] 25.05 kg/m2 Kanwal Jack MD Work Phone: [facility] [employer] 05-07-2023 03:10-0500 Body weight 62.14 kg Kanwal Nuñez Work Phone: [facility] 08-19-2022 09:43-0400 Body temperature 96.91 [degF] Lana Parker MD Work Phone: [facility] 08-19-2022 09:43-0400 Diastolic blood pressure 73 mm[Hg] Lana Parker MD Work Phone: [facility] [employer] 08-19-2022 09:43-0400 Heart rate 74 /min Lana Parker MD Work Phone: [facility] 08-19-2022 09:43-0400 Systolic blood pressure 132 mm[Hg] Lana Parker MD Work Phone: [facility] 07-24-2022 13:46-0400 Body temperature 97.3 [degF] Lana Parker MD Work Phone: [facility] [employer] 07-24-2022 13:46-0400 Diastolic blood pressure 67 mm[Hg] Lana Parker MD Work Phone: [facility] 07-24-2022 13:46-0400 Heart rate 61 /min Lana Parker MD Work Phone: [facility] [employer] 07-24-2022 13:46-0400 Systolic blood pressure 132 mm[Hg] Lana Parker MD Work Phone: [facility] 07-10-2022 11:06-0400 Body temperature 97.81 [degF] Lana Parker MD Work Phone: [facility] [employer] 07-10-2022 11:06-0400 Diastolic blood pressure 48 mm[Hg] Lana Parker MD Work Phone: [facility] [employer] 07-10-2022 11:06-0400 Heart rate 61 /min Lana Parker MD Work Phone: [facility] [employer] 07-10-2022 11:06-0400 Respiratory rate 18 /min Lana Parker MD Work Phone: [facility] [employer] 07-10-2022 11:06-0400 SaO2% (BldA) [Mass fraction] 96 % Lana Parker MD Work Phone: [facility] [employer] 07-10-2022 11:06-0400 Systolic blood pressure 130 mm[Hg] Lana Parker MD Work Phone: [facility] [employer] 07-09-2022 09:22-0400 SaO2% (BldA) [Mass fraction] 88.5 % Lana Parker MD Work Phone: [facility] [employer] 07-07-2022 10:40-0400 Body height 152.4 cm Lana Parker MD Work Phone: [facility] [employer] 05-27-2022 09:04-0400 Body temperature 96.91 [degF] Lana Parker MD Work Phone: [facility] [employer] 05-27-2022 09:04-0400 Body weight 59.42 kg Lana Parker MD Work Phone: [facility] [employer] 05-27-2022 09:04-0400 Diastolic blood pressure 80 mm[Hg] Lana Parker MD Work Phone: [facility] [employer] 05-27-2022 09:04-0400 Systolic blood pressure 132 mm[Hg] Lana Parker MD Work Phone: [facility] [employer] Encounters Encounter Date Encounter Type Care Provider Facility Start: 08-20-2023 ambulatory Cathi Hayes MD Work Phone: Internal Medicine [facility] Start: 05-07-2023 End: 05-07-2023 Evaluation and management of inpatient [facility] Start: 05-06-2023 End: 05-07-2023 Evaluation and management of inpatient Kanwal Jack MD Work Phone: [facility] Comment on above: 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) Start: 08-19-2022 End: 08-19-2022 ambulatory LANA PARKER [facility] Start: 08-19-2022 End: 08-19-2022 Patient encounter status Lana Parker MD Work Phone: [facility] Start: 08-19-2022 End: 08-19-2022 Postop follow up visit related to original px Lana Parker MD Work Phone: [facility] Comment on above: Status post endovasc ular aneurysm repair (EVAR) (Primary Dx); Pre-procedure lab exam Start: 08-08-2022 End: 08-09-2022 ambulatory LANA KEITH [facility] Start: 07-24-2022 End: 07-24-2022 ambulatory LANA KEITH [facility] Start: 07-24-2022 End: 07-24-2022 Postop follow up visit related to original gabriel Parker MD Work Phone: [facility] Comment on above: Infrarenal abdominal aortic aneurysm (AAA) without rupture (HCC) (Primary Dx); Status post endovascular aneurysm repair (EVAR) Start: 07-05-2022 End: 07-10-2022 Evaluation and management of inpatient LANA PRADOD [facility] Start: 07-05-2022 End: 07-10-2022 Evaluation and management of inpatient Lana Parker MD Work Phone: [facility] Comment on above: Infrarenal abdominal aortic aneurysm (AAA) without rupture (Primary Dx) Start: 06-26-2022 End: 06-27-2022 ambulatory MARIBEL BURKETTSHERIN [facility] Start: 06-26-2022 End: 06-26-2022 Encounter for other preprocedural examination ALEXANDRE AYOUB [facility] Start: 06-26-2022 End: 06-26-2022 Patient encounter status Ach 1 [facility] Start: 06-26-2022 End: 06-26-2022 Subsequent hospital visit by physician Santa Xr Exam Room 1 [facility] Comment on above: Preop testing Start: 06-14-2022 ambulatory Kaila Davey Yohana Lopez Work Phone: [facility] Comment on above: Infrarenal abdominal aortic aneurysm (AAA) without rupture (Primary Dx) Start: 06-14-2022 Telephone encounter Lana ribeiro MD Work Phone: [facility] [place] Comment on above: Surgery Scheduling Start: 05-30-2022 Telephone encounter Lana ribeiro MD Work Phone: [facility] Comment on above: Advice Only (Resched uling of echocardiogram); Surgery Scheduling (Wants to speak with doctor); Cardiac Clearance (RECEIVED); PULMONARY CLEARANCE (RECEIVED) Start: 05-27-2022 End: 05-27-2022 ambulatory LANA PARKER [facility] Start: 05-27-2022 End: 05-27-2022 Office outpatient new 45 minutes Lana Parker MD Work Phone: [facility] Comment on above: Infrarenal abdominal aortic aneurysm (AAA) without rupture (Primary Dx) Start: 10-10-2021 ambulatory Cathi Hayes MD Work Phone: [facility] [place] Start: 06-19-2021 Telephone encounter Khushi Brooke DO Work Phone: Vascular Surgery Comment on above: Appointment Start: 05-16-2021 Refill Aminata Barrera ORE SAMPLER.CHEMICAL WASTE MANAGEMENT TECHNICIAN Work Phone: [facility] Comment on above: Refill Request Start: 11-22-2020 Telephone encounter Aminata gibson ORE SAMPLER.CHEMICAL WASTE MANAGEMENT TECHNICIAN Work Phone: [facility] [place] Comment on above: Request Outside [facility] Records Start: 09-14-2020 Telephone encounter Feng Hayes MD Work Phone: Neurology Comment on above: Patient Question (Juan M estrada) Start: 09-08-2020 End: 09-08-2020 Subsequent hospital visit by physician Miles [facility] [place] Work Phone: Radiology Comment on above: Cervicalgia [M54.2] Start: 08-22-2020 Telephone encounter Feng Hayes MD Work Phone: [facility] Comment on above: Anxiety Start: 04-05-2020 End: 04-05-2020 Subsequent hospital visit by physician [facility] Work Phone: Radiology Comment on above: Pain in the coccyx [ M53.3] Procedures Date Procedure Procedure Detail Performing Clinician Start: 05-07-2023 Glucose quantitative blood xcpt reagent strip Ector Whiting MD Work Phone: Start: 05-07-2023 Basic metabolic pane l calcium total Raji Ontiveros MD Work Phone: Start: 05-07-2023 Antibody screen RICH[facility] PARKER Comment on above: Performed By: #### L [id number] ####Heavy Equipment Mechanic: JOSE DELGADO ([id number])[facility] ([address] Start: 05-07-2023 Urinalysis complete panel - Urine Raji Delacruz DO Work Phone: Start: 05-07-2023 Urnls dip stick/tabl et reagent auto microscopy Raji Delacruz DO Work Phone: Start: 05-07-2023 Blood typing serolog ic abo Raji Delacruz DO Work Phone: Start: 05-06-2023 Radiologic exam ches t single view Raji Delacruz DO Work Phone: Start: 05-06-2023 End: 05-07-2023 Basic metabolic panel calcium total Raji Delacruz DO Work Phone: Start: 05-06-2023 Ecg routine ecg w/le ast 12 lds trcg only w/o i&r Rajinay Delacruz DO Work Phone: Start: 07-10-2022 Basic metabolic pane [...] lds trcg only w/o i&r Isa A Gladstone DO Work Phone: Start: 07-07-2022 Basic metabolic [...] Start: 07-05-2022 End: 07-05-2022 Evasc rpr dplmnt mlbti-vl-svatx ndgft Lana Parker MD Work Phone: Start: 07-05-2022 End: 07-05-2022 Opn fem art expos dlvr evasc prosth uni Lana Parker MD Work Phone: Start: 06-26-2022 Radiologic exam ches t 2 views Maribel QUIROZ Work Phone: Start: 11-25-2020 Colonoscopy Aminata gibson ORE SAMPLER.CHEMICAL WASTE MANAGEMENT TECHNICIAN Work Phone: Start: 09-14-2020 Adult depression screening assessment Aminata Barrera ORE SAMPLER.CHEMICAL WASTE MANAGEMENT TECHNICIAN Work Phone: Start: 09-08-2020 Radex spine cervical 4 or 5 views Bob Uriostegui MD Work Phone: Start: 09-06-2020 Mammography Aminata gibson ORE SAMPLER.CHEMICAL WASTE MANAGEMENT TECHNICIAN Work Phone: Start: 04-05-2020 Radex sacrum & coccy x minimum 2 views Aminata Barrera ORE SAMPLER.CHEMICAL WASTE MANAGEMENT TECHNICIAN Work Phone: Start: 12-28-2019 Lipid 1996 panel - S kobi or Plasma Cathi Hayes MD Work Phone: Start: 04-21-2015 History of placement of stent for coronary artery disease History of coronary artery stent placement Lana Parker MD Work Phone: Start: 08-31-2014 History of placement of stent for coronary artery disease S/P coronary artery stent placement Aminata Barrera ORE SAMPLER.[facility] Work Phone: Plan of Treatment Date Care Activity Detail Author Start: 11-25-2030 Screening for malign ant neoplasm of colon [facility] Start: 03-05-2028 Urine microalbumin profile [facility] Start: 11-25-2025 Colonoscopy COLONOSCOPY [facility] Start: 11-25-2025 COLORECTAL CANCER SCREENING COLORECTAL CANCER SCREENING [facility] Start: 11-25-2025 Screening for malign ant neoplasm of colon [facility] Start: 12-27-2024 Lipid panel Lipid Screening [facility] Start: 12-27-2024 LIPID SCREEN LIPID SCREEN [facility] Start: 01-24-2024 RSV Vaccine (1 - 1-d ose 75+ series) RSV Vaccine (1 - 1-dose 75+ series) [facility] Start: 11-22-2023 DIABETES SCREEN DIABETES SCREEN [facility] Start: 11-22-2023 Diabetes Screening Diabetes Screenin g [facility] Start: 11-16-2023 Covid-19 Vaccine ( season) Covid-19 Vaccine ( season) [facility] Start: 11-16-2023 Influenza vaccination C [facility] Start: 07-11-2023 Creatinine measurement Creatinine Le isaac [facility] Start: 07-11-2023 Potassium measurement Potassium Leve l [facility] Start: 07-10-2023 Diabetes mellitus screening Diabetes Screening [facility] Start: 06-27-2023 Creatinine measurement Creatinine Le isaac [facility] Start: 06-27-2023 Potassium measurement Potassium Leve l [facility] Start: 03-17-2023 Advance Directive Discussion Advance Directive Discussion [facility] Start: 03-17-2023 Behavioral Health Screening Behavioral Health Screening [facility] Start: 02-18-2023 End: 08-20-2023 Creatinine [Mass/volume] in Serum or Plasma Creatinine, Serum Lab Routine Status post endovascular aneurysm repair (EVAR) Pre-procedure lab exam Expected: 02/18/2023 (Approximate), Expires: 08/20/2023 [facility] Comment on above: Expected: 02/18/2023 (Approximate), Expires: 08/20/2023 Start: 02-18-2023 End: 08-20-2023 CT Abdomen and Pelvis W contrast IV CTA abdomen pelvis angiogram w and/or wo IV contrast Imaging Routine Status post endovascular aneurysm repair (EVAR) Expected: 02/18/2023, Expires: 08/20/2023 [facility] Work Phone: Comment on above: Expected: 02/18/2023 , Expires: 08/20/2023 Start: 11-15-2022 COVID-19 Vaccine ( season) COVID-19 Vaccine ( season) [facility] Start: 11-15-2022 Influenza vaccination Influenz a Vaccine (Season Ended) [facility] Start: 08-19-2022 End: 08-19-2022 Patient encounter procedure 08/19/2022 Office Visit Vascular Surgery Lana Parker MD [address] [facility] [address] [place], [place] [id number] [facility] Start: 08-08-2022 End: 08-08-2022 Patient encounter procedure 08/08/2022 Appointment Radiology [facility] Start: 08-04-2022 End: 07-25-2023 CT Abdomen and Pelvis W contrast IV CTA abdomen pelvis angiogram w and/or wo IV contrast Imaging Routine Infrarenal abdominal aortic aneurysm (AAA) without rupture (HCC) Status post endovascular aneurysm repair (EVAR) Expected: 08/04/2022, Expires: 07/25/2023 [facility] Work Phone: Comment on above: Expected: 08/04/2022 , Expires: 07/25/2023 Start: 07-17-2022 End: 07-17-2022 Patient encounter procedure 07/17/2022 Office Visit Vascular Surgery Lana Parker MD [address] [place] [phone] [facility] Start: 07-05-2022 End: 07-05-2022 Admission to same day surgery center 07/05/2022 Surgery Procedural Lana Parker MD [address] [place] [phone] ENDOVASCULAR REPAIR OF ABDOMINAL AORTIC ANEURYSM [50287 (CPT )] [facility] Comment on above: ENDOVASCULAR REPAIR OF ABDOMINAL AORTIC ANEURYSM [65462 (CPT )] Start: 07-05-2022 End: 07-05-2022 Anesthesia consultation 07/05/2022 Anesthesia Event Procedural Maribel Meng PA [address] [place] [address] [facility] Start: 07-05-2022 End: 07-05-2022 Evasc rpr dplmnt wyled-ot-pislr ndgft ENDOVASCULAR REPAIR INFRARENAL ABDOMINAL AORTIC ANEURYSM / DISSECTION WITH BIFURCATED PROSTHESIS Infrarenal abdominal aortic aneurysm, without rupture (HCC) 07/05/2022 7:30 AM EDT [facility] Start: 07-05-2022 End: 07-05-2022 Opn fem art expos dlvr evasc prosth uni OPEN FEMORAL ARTERY EXPOSURE FOR DELIVERY OF ENDOVASCULAR PROSTHESIS Infrarenal abdominal aortic aneurysm, without rupture (HCC) 07/05/2022 7:30 AM EDT [facility] Start: 07-05-2022 Subsequent hospital visit by physician 07/05/2022 Hospital Encounter Procedural Lana Parker MD [address] [place] [address] [facility] Start: 06-26-2022 End: 06-26-2022 Admission to establishment 06/26/2022 Pre-Admission Testing Pre-Admission Testing [facility] Pre-[facility]mit Testing Start: 11-15-2021 Influenza vaccination C [facility] Start: 10-16-2021 ANNUAL PCP TEAM PLUG SORTER ILANA DISEASE VISIT ANNUAL PCP TEAM CHRONIC DISEASE VISIT [facility] Start: 09-14-2021 Adult depression scr eening assessment DEPRESSION SCREENING [facility] Start: 09-06-2021 Mammography MAMMOGRAM [facility] Start: 09-06-2021 Screening for malign ant neoplasm of breast Mammogram Screening [facility] Start: 08-28-2021 FECAL OCCULT BLOOD FECAL OCCULT BLOO D [facility] Start: 08-28-2021 Screening for malign ant neoplasm of colon Fecal Occult Blood [facility] Start: 03-17-2021 ADVANCE DIRECTIVE DISCUSSION ADVANCE DIRECTIVE DISCUSSION [facility] Start: 12-27-2020 Hepatitis B surface antibody level LDL CHOLESTEROL [facility] Start: 12-20-2020 COVID-19 VACCINE (3 - Booster for Moderna series) COVID-19 VACCINE (3 - Booster for Moderna series) [facility] Start: 09-14-2020 COVID-19 Vaccine (3 - Booster for Moderna series) COVID-19 Vaccine (3 - Booster for Moderna series) [facility] Start: 12-08-2018 BP CONTROLLED (<130/80) BP CONTROLLE D (<130/80) [facility] Start: 03-06-2018 DTaP/Tdap/Td Vaccine s (1 - Tdap) DTaP/Tdap/Td Vaccines (1 - Tdap) [facility] Start: 2009 Hepatitis B Vaccines (1 of 3 - Risk 3-dose series) Hepatitis B Vaccines (1 of 3 - Risk 3-dose series) [facility] Start: 2009 RSV Immunization age d 60 or older (1 - 1-dose 60+ series) RSV Immunization aged 60 or older (1 - 1-dose 60+ series) [facility] Start: 2009 RSV Vaccine (1 - 1-d ose 60+ series) RSV Vaccine (1 - 1-dose 60+ series) [facility] Start: 1999 Screening for malign ant neoplasm of lung Lung Cancer Screening [facility] Start: 1994 COLOGUARD (FIT-DNA) COLOGUARD (FIT-D NA) [facility] Start: [address] COLONOGRAPHY [facility] Start: 1994 Screening for malign ant neoplasm of colon [facility] Start: 1994 SIGMOIDOSCOPY SIGMOIDOSCOPY [facility] Start: 1989 Screening for malign ant neoplasm of breast Mammogram [facility] Start: 01-24-1968 Hepatitis A Vaccines (1 of 2 - Risk 2-dose series) Hepatitis A Vaccines (1 of 2 - Risk 2-dose series) [facility] Start: 1967 Anxiety Screening Anxiety Screening [facility] Start: 1967 Depression Screening Depression Scre ening [facility] Start: 1967 Diabetes mellitus screening Diabetes Screening [facility] Start: 1967 Hepatitis C screening Hepatitis C Sc reening [facility] Start: 1961 Depression Screening Depression Scre ing [facility] Start: 1950 Hepatitis A Vaccines (1 of 2 - Risk 2-dose series) Hepatitis A Vaccines (1 of 2 - Risk 2-dose series) [facility] Start: 1949 Creatinine measurement Creatinine Le isaac [facility] Start: 1949 Echocardiography Echocardiogram [facility] Start: 1949 Lipid panel Lipid Panel [facility] Start: 1949 Medicare Advantage A nnual Wellness Visit (AWV) Medicare Advantage Annual Wellness Visit (AWV) [facility] Start: 1949 Potassium measurement Potassium Leve l [facility] Start: 1949 Screening for malign ant neoplasm of colon [facility] Start: 1949 Screening for osteoporosis Bone Dens ity Scan [facility] Start: 1949 Thyroid stimulating hormone measurement TSH Level [facility] End: 09-18-2024 MG Breast Screening [facility] Radiology Routine Encounter for screening mammogram for breast cancer 1 Occurrences starting 08/20/2023 until 09/18/2024 [facility] Work Phone: Comment on above: 1 Occurrences starti ng 08/20/2023 until 09/18/2024 End: 11-09-2022 Screening mammography bi 2-view breast inc cad [facility] SCREEN[facility] Radiology Routine Encounter for screening mammogram for breast cancer 1 Occurrences starting 10/10/2021 until 11/09/2022 [facility] Work Phone: Comment on above: 1 Occurrences starti ng 10/10/2021 until 11/09/2022 [facility] Immunizations Immunization Date Immunization Notes Care Provider [facility] 01-03-2021 influenza virus vaccine, unspecified formulation Lana Parker MD Work Phone: [facility] 12-18-2020 influenza virus vaccine, unspecified formulation Cathi Hayes MD Work Phone: [facility] 09-22-2020 zoster vaccine recombinant Aminata Podlogar ORE SAMPLER.CHEMICAL WASTE MANAGEMENT TECHNICIAN Work Phone: [facility] Work Phone: 07-20-2020 COVID-19 vaccine, fu ll dose (MODERNA) Aminata Podlogar ORE SAMPLER.CHEMICAL WASTE MANAGEMENT TECHNICIAN Work Phone: [facility] Work Phone: 06-22-2020 COVID-19 vaccine, fu ll dose (MODERNA) Aminata Podlogar ORE SAMPLER.CHEMICAL WASTE MANAGEMENT TECHNICIAN Work Phone: [facility] Work Phone: 05-17-2020 zoster vaccine recombinant Aminata Podlogar ORE SAMPLER.CHEMICAL WASTE MANAGEMENT TECHNICIAN Work Phone: [facility] Work Phone: 04-26-2019 influenza, high dose seasonal, preservative-free Aminata Podlogar ORE SAMPLER.CHEMICAL WASTE MANAGEMENT TECHNICIAN Work Phone: [facility] 03-05-2018 tetanus and diphther ia toxoids, adsorbed, preservative free, for adult use (5 Lf of tetanus toxoid and 2 Lf of diphtheria toxoid) Aminata Podlogar ORE SAMPLER.CHEMICAL WASTE MANAGEMENT TECHNICIAN Work Phone: [facility] 12-08-2017 influenza, high dose seasonal, preservative-free Aminata Podlogar ORE SAMPLER.CHEMICAL WASTE MANAGEMENT TECHNICIAN Work Phone: [facility] 09-05-2017 pneumococcal polysaccharide vaccine, 23 valent Aminata Podlogar ORE SAMPLER.CHEMICAL WASTE MANAGEMENT TECHNICIAN Work Phone: [facility] 01-29-2017 influenza, high dose seasonal, preservative-free Aminata Podlogar ORE SAMPLER.CHEMICAL WASTE MANAGEMENT TECHNICIAN Work Phone: [facility] 01-29-2017 pneumococcal conjuga te vaccine, 13 valent Aminata Podlogar ORE SAMPLER.CHEMICAL WASTE MANAGEMENT TECHNICIAN Work Phone: [facility] 12-15-2013 influenza, injectabl e, quadrivalent, contains preservative Aminata Podlogar ORE SAMPLER.CHEMICAL WASTE MANAGEMENT TECHNICIAN Work Phone: [facility] 08-31-2011 pneumococcal polysaccharide vaccine, 23 valent Aminata Podlogar ORE SAMPLER.CHEMICAL WASTE MANAGEMENT TECHNICIAN Work Phone: [facility] Payers Date Payer Category Payer Medicare [id number] 2020 Unknown [facility] ANTHEM MEDILUZ MARIAUE O [id number] 2020-Present [phone] [address] [place] [address] [facility] [id number] 2020 Unknown [id number] 2019 Medicare [id number] [facility] MEDICAID [id number] 2014-Present [phone] [address] [place] [address] Medicaid [id number] 2014 Medicaid [place]ICA[place] [id number] 2014-Present [phone] [address] [place] [address] Medicaid [id number] Social History Date Type Detail Facility Start: 04-28-2017 End: 09-07-2020 Tobacco smoking status NHIS Ex-smoker [facility] Start: 04-24-1970 End: 03-17-2020 History of tobacco use Current smoker [facility] Start: 04-24-1970 End: 03-17-2020 History of tobacco use Cigarette Smoker [facility] Start: 04-28-2017 End: 09-07-2020 Tobacco use and exposure Smokeless tobacco non-user [facility] Start: 04-05-2020 End: 12-27-2020 Alcohol intake Current non-drinker of alcohol (finding) [facility] Start: 09-14-2020 History SDOH Alcohol Frequency 1 [facility] Start: 09-14-2020 History SDOH Alcohol Std Drinks 98 [facility] Start: 09-14-2020 History SDOH Social Connections Phone 2 [facility] Start: 09-14-2020 History SDOH Social Connections Get Together 3 [facility] Start: 09-14-2020 History SDOH Social Connections Living 5 [facility] Start: 09-14-2020 Education 10 [facility] Start: 09-07-2020 Tobacco Comment <5 per day, pt reported starting 04/2019 [facility] Start: 1950 Sex Assigned At Female C [facility] Start: 03-06-2020 End: 08-19-2022 Exposure to SARS-CoV-2 (event) Not sure [facility] Start: 11-09-2014 Tobacco Comment <5 per day [facility] Start: 05-27-2022 Alcohol intake Lifetime non-d rashard (finding) [facility] Start: 1950 Sex Assigned At Not on file S [facility] Start: 02-20-2020 End: 06-26-2022 Cigarettes smoked current (pack per day) - Reported 0.5 [facility] Start: 06-26-2022 End: 08-19-2022 Alcohol intake Ex-drinker (finding) [place]: 06-26-2022 Alcohol Comment former social drinker; none for years [facility] Start: 02-20-2020 End: 08-19-2022 Tobacco use panel [facility] Do you belong to any clubs or organizations such as rastafari groups, unions, fraternal or athletic groups, or school groups? Yes [facility] Are you now , , , , never or living with a partner? [facility] How often to you hav e a drink containing alcohol? Never [facility] How many standard dr inks containing alcohol do you have on a typical day? Patient declined [facility] Do you feel stress - tense, restless, nervous, or anxious, or unable to sleep at night because your mind is troubled all the time - these days [OSQ] Very much [facility] (I/We) worried [place] er (my/our) food would run out before (I/we) got money to buy more. Never true [facility] In the past 12 month s, was there a time when you were not able to pay the mortgage or rent on time? No [facility] Start: 09-14-2020 Gender identity Identifies as female gender (finding) [facility] Start: 09-14-2020 Sexual orientation Heterosexual (rut johnston) [facility] Medical Equipment Procedure Code Equipment Code Equipment Origin al Text Equipment Identifier Dates Stent Carlos 10mm 7 fr 25mm 135cm - [id number] Start: 07-05-2022 Tm Abdominal Raul nt Graft System [id number] Start: 07-05-2022 Comment on above: Description: 29MM Iliac Stent Graft [id number] Start: 07-05-2022 Iliac Stent Graft [id number] Start: 07-05-2022 Palmaz Xl [id number] Start: 07-05-2022 Ld Iliac/Biliary [id number] Start: 07-05-2022 Clinical Notes 12-06-2015 to 08-20-2023 Jane Coates RN - 05/07/2023 5:11 PM Pieter Coates RN - 05/07/2023 5:11 PM Pieter Coates RN - 05/07/2023 9:24 AM Nellie Wagner MD - 05/07/2023 4:24 PM ESTDischarge Instructions Note Date & Type Note Facility 08-20-2023 Note Patient Outreach (IN TMMN) KATHY PURI ([id number]) 1950 F Date Time Provider Department 08/20/23 CATHI HAYES During your visit today, we recorded the following information about you: Allergies As of Date: 08/20/2023 Noted Allergy Reaction LISINOPRIL 05/31/2019 14 - Other: See Comments Comments: Numbness to tongue Date Reviewed: 12/27/2020 Reviewed by: Yuly Galloway, CT - Fully Assessed Visit Diagnosis:Encounter for screening mammogram for breast cancer [Z12.31] Order(s):[facility] SCREENING [[id number]] Order #: [id number] FUTURE Prescriptions as of 08/25/2023 - clopidogrel (PLAVIX) 75 mg tablet Take [...] twice daily. Added at recent hospital stay [facility]. - BIPAP Initiate BiPAP @ 9/5 cm [...] 12 hours. Problem List As Of Date 08/20/2023 Noted Resolved Vulvovaginitis [N76.0] 07/16/2011 01/13/2014 Atrial [...] 10/02/2020 Encounter Status:Closed by EDIS PRODUSER on 08/25/23 [facility] 05-07-2023 Note [facility] Vascular Surgery Discharge Summary Name: Kathy [...] Papo Wagner MD General Surgery PGY-1 Pager [phone] [facility] 05-07-2023 Nurse Note Tele and IV discontinued. Patient educated on meds and discharge instructions. States she understands. Has all belongings in hand. [facility] 05-07-2023 Nurse Note Tele and IV [...] the tray anyway. documented in this encounter [facility] 05-07-2023 Hospital course Narrative [facility] Vascular Surgery Discharge Summary [...] Papo Wagner MD General Surgery PGY-1 Pager [phone] documented in this encounter [facility] 05-07-2023 Hospital Discharge instructions Papo Wagner [...] pain. -Abdominal distention. documented in this encounter [facility] 05-07-2023 Note Formatting of this n ote might be different from the original. Care Managment Initial Assessment Date: 05/07/2023 Patient Name: Kathy Puri : 1950 Patient Information Source of Information: Patient Cognition/Language: WFL - Within Functional Limits Permission given to speak with patient route service representative/caregiver as indicated: Yes Confirmation of Payer with patient/family: Yes Payer Name: [employer] Medicare Pulteney: No Confirmation of Primary Care Physician: Confirmed [...] Living Prescription Coverage: Yes Pharmacy Used: [facility] Medication Management: Prescription pick-up Transportation/Shopping: Assistance Provider [...] this time. Nela Vera RN [facility] 05-07-2023 Note Formatting of this n ote might be different from the original. Care Managment Initial Assessment Date: 05/07/2023 Patient Name: Kathy Puri : 1950 Patient Information Source of Information: Patient Cognition/Language: WFL - Within Functional Limits Permission given to speak with patient route service representative/caregiver as indicated: Yes Confirmation of Payer with patient/family: Yes Payer Name: [employer] Medicare Pulteney: No Confirmation of Primary Care Physician: Confirmed [...] Living Prescription Coverage: Yes Pharmacy Used: [facility] Medication Management: Prescription pick-up Transportation/Shopping: Assistance Provider [...] this time. Nela Vera RN [facility] 05-07-2023 Miscellaneous Notes Care Managment Initial Assessment Date: 05/07/2023 Patient Name: Kathy Puri : 1950 Patient Information Source of Information: Patient Cognition/Language: WFL - Within Functional Limits Permission given to speak with patient route service representative/caregiver as indicated: Yes Confirmation of Payer with patient/family: Yes Payer Name: [facility] Medicare Pulteney: No Confirmation of Primary Care Physician: Confirmed [...] Living Prescription Coverage: Yes Pharmacy Used: [facility] Medication Management: Prescription pick-up Transportation/Shopping: Assistance Provider [...] injury Outcome: Progressing documented in this encounter [facility] 05-07-2023 Nurse Note Walked into pt room at 0915 and wrong breakfast tray was sitting on bedside table. Pt has already eaten everything. MD Wagner and nolberto notified. Pt was informed this morning she was NPO today and she ate the tray anyway. [facility] 05-07-2023 Note Formatting of this n ote [...] team and they would evaluate. [facility] 05-07-2023 Note Formatting of this n [...] team and they would evaluate. [facility] 05-07-2023 Note Problem: Pain - Adul [...] from fall injury Outcome: Progressing [facility] 05-07-2023 Note Attestation signed by Lana Parker MD at 05/07/2023 1:20 PM I saw and evaluated the patient. I agree with the findings and plan of care as documented in the resident?s note unless otherwise noted below. The patient has a stable aneurysm sac size at 5.2 cm and no clear evidence of endoleak on her CT performed at [place] which was reviewed in the PACS system. [...] Parker), (additional history below) who presents to [facility] ED with a chief complaint of abdominal pain/confusion. Patient was transferred from [facility] for evaluation by [facility] vascular surgery team. Imaging completed at [facility], demonstrated concern for endoleak. Vascular surgery [...] Parker), (additional history below) who presents to [facility] ED with a chief complaint of abdominal pain/confusion. Patient was transferred from [facility] for evaluation by [facility] vascular surgery team. Imaging completed at [facility], demonstrated concern for endoleak. Vascular surgery [...] TESTING: CTA (see PACS imaging for scan) Raij Ontiveros M.D. Department of Surgery General Surgery Resident Pager: [phone] PAGING / hovelstay Secure Chat: From 6a-6p (-s): Epic Secure Chat (FIRST) or Pager above (EMERGENT/Second) From 6p-6a (-s): Find resident physician under [facility] Surgery - General - Surgical [...] This note may have been dictated using Sword.com Practice Edition and/or Therosteon Voice Recognition Feature. The document was proofread; however, unrecognized voice recognition cargo service agent errors may be present. Associated attestation - Lana Parker MD - 05/07/2023 1:20 PM EST I saw and evaluated the patient. I agree with the findings and plan of care as documented in the resident s note unless otherwise noted below. The patient has a stable aneurysm sac size at 5.2 cm and no clear evidence of endoleak on her CT performed at [place] which was reviewed in the PACS system. [...] OK for diet and resume home medications. [facility] 05-07-2023 History and physical note Vascular Surgery H&P Note Reason for Consult: concern for endoleak History Of Present Illness: Kathy Puri is a 73 y.o. female with PMHx significant for hypertension, hyperlipidemia, CKD, myocardial infarction, CHF, COPD, GERD, BELLE, anemia, IBS, PAD, and PSHx of cardiac stents, pacemaker placement, hysterectomy, tonsillectomy, EVAR (2022, Dr. Parker), (additional history below) who presents to [facility] ED with a chief complaint of abdominal pain/confusion. Patient was transferred from [facility] for evaluation by [facility] vascular surgery team. Imaging completed at [facility], demonstrated concern for endoleak. Vascular surgery [...] Department of Surgery General Surgery Resident Pager: [phone] PAGING / [facility]velstay Secure Chat: From 6a-6p (-s): [facility] Secure Chat (FIRST) or Pager above (EMERGENT/Second) From 6p-6a (-s): Find resident physician under [facility] Surgery - General - Surgical ICU [...] This note may have been dictated using Sword.com Practice Edition and/or Therosteon Voice Recognition Feature. The document was proofread; however, unrecognized voice recognition cargo service agent errors may be present. Associated attestation - Lana Parker MD - 05/07/2023 1:20 PM EST I saw and evaluated the patient. I agree with the findings and plan of care as documented in the resident s note unless otherwise noted below. The patient has a stable aneurysm sac size at 5.2 cm and no clear evidence of endoleak on her CT performed at [place] which was reviewed in the PACS system. [...] resume home medications. documented in this encounter [facility] 05-07-2023 Emergency department Note Surgery at bedside. Sánchez Jimenez 05/07/23 0042 [facility] 05-07-2023 Emergency department Note Surgery at bedside. Sánchez Jimenez 05/07/23 0042 Emergency Department Encounter [facility] EMERGENCY DEPT Patient: Kathy Puri : 1950 Date of Evaluation: 05/06/2023 ED Supervising Physician: Kanwal Jack MD I independently examined and evaluated Kathy [...] BP -- 74 14 101/76 SpO2 Temp [facility] Heart Rate Source Patient Position 96 % -- Monitor Lying BP Location FiO2 (%) Left arm -- Focused exam: Oac-kxj-xtgxqlgbk in no acute distress. Alert and oriented [...] Culture. Procedure Abnormality Status --------- ------ Complete Urinalysis[[id number]] Please view results for these tests on [...] EKG from June 2022. Reviewed paperwork from [facility]. Urinalysis on that paperwork with no [...] are mis-transcribed.) MD Kanwal Sherman MD 05/07/23 013 documented in this encounter [facility] 05-06-2023 Physician Emergency department Note Emergency Department Encounter [facility] EMERGENCY DEPT Patient: Kathy Puri : 1950 Date of Evaluation: 05/06/2023 ED Supervising Physician: Kanwal Jack MD I independently examined and evaluated Kathy [...] FiO2 (%) Left arm -- Focused exam: Vcn-szt-mutkidmbm in no acute distress. Alert and oriented [...] Culture. Procedure Abnormality Status --------- ------ Complete Urinalysis[[id number]] Please view results for these tests on [...] EKG from June 2022. Reviewed paperwork from [facility]. Urinalysis on that paperwork with no [...] mis-transcribed.) MD Kanwal Sherman MD 05/07/23 0131 [employer] Phone: 09-18-2022 Note Patient Outreach (IN TMMN) KATHY PURI ([id number]) 1950 F Date Time Provider Department 09/18/22 CATHI HAYES During your visit today, we recorded the following information about you: Allergies As of Date: 09/18/2022 Noted Allergy Reaction LISINOPRIL 05/31/2019 14 - Other: See Comments Comments: Numbness to tongue Date Reviewed: 12/27/2020 Reviewed by: Yuly Galloway, NARENDRA - Fully Assessed Visit Diagnosis:Encounter for screening mammogram for breast cancer [Z12.31] Order(s):[facility] SCREENING [[id number]] Order #: [id number] FUTURE Prescriptions as of 09/23/2022 - clopidogrel [...] twice daily. Added at recent hospital stay [facility]. - BIPAP Initiate BiPAP @ 9/5 cm [...] Neck pain [M54.2] 10/02/2020 Encounter Status:Closed by EPIC, PRODUSER on 09/23/22 [facility] 08-19-2022 History of Present illness Narrative 08/19/2022 [...] care everywhere as there were performed in [place]. Past Surgical History: Procedure Laterality Date ABDOMINAL [...] MD Vascular Surgery documented in this encounter [facility] 07-24-2022 History of Present illness Narrative [...] MD Vascular Surgery documented in this encounter [facility] 07-10-2022 Nurse Note Discharged to home. Instructions given to pt and her sister. Prescriptions filled by meds to beds pharmacy. [facility] 07-10-2022 Nurse Note Discharged to home. [...] patient elevated BP. documented in this encounter [facility] 07-10-2022 Note Vascular Surgery Dis charge [...] a statin? Yes documented in this encounter [facility] 07-10-2022 Note Department of Surger y [...] PLT 156 153 -- 160 Recent Labs 07/08/228 07/09/22 0143 07/10/22 0327 NA 134* 136 [...] PLT 156 153 -- 160 Recent Labs 07/08/2213707/09/22 0143 07/10/22 0327 NA 134* 136 136 [...] Will discuss with Dr. Nuñez NG / [facility] Secure Chat: From 6a-6p (-): [facility] Secure Chat (FIRST) or Pager above (EMERGENT/Second) From 6p-6a (-): Find resident provider under [facility] Surgery - General - Surgical ICU [...] This note may have been dictated using Sword.com Practice Edition and/or Therosteon Voice Recognition Feature. The document was proofread; however, unrecognized voice recognition cargo service agent errors may be present Physical Therapy Facility/Department: [...] history of Anemia, Anxiety, Arrhythmia, Arthritis, Cancer ([facility]/HCC) ([facility]), CHF (congestive heart failure) (CMS/HCC) ([facility]), CKD (chronic kidney disease), COPD (chronic obstructive pulmonary disease) ([facility]), Depression, GERD (gastroesophageal reflux disease), Heart valve disease, Hyperlipidemia, Hypertension, Irritable bowel syndrome, Joint pain, Myocardial infarction (CMS/HCC) ([facility]), Pacemaker, PAD (peripheral artery disease) ([facility]), and Sleep apnea. has a past [...] Will discuss with Dr. Parker NG / [facility]stay Secure Chat: From -6p (-s): [facility] Secure Chat (FIRST) or Pager above (EMERGENT/Second) From 6p- (-s): Find resident provider under [facility] Surgery - General - Surgical ICU [...] This note may have been dictated using Truly Edition and/or Therosteon Voice Recognition Feature. 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 She will have assistance from her mother [...] history of Anemia, Anxiety, Arrhythmia, Arthritis, Cancer ([facility]/HCC) ([facility]), CHF (congestive heart failure) ([facility]) ([facility]), CKD (chronic kidney disease), COPD (chronic obstructive pulmonary disease) ([facility]), Depression, GERD (gastroesophageal reflux disease), Heart valve disease, Hyperlipidemia, Hypertension, Irritable bowel syndrome, Joint pain, Myocardial infarction ([facility]/HCC) ([facility]), Pacemaker, PAD (peripheral artery disease) ([facility]), and Sleep apnea. has a past [...] With device?: No Transfer Assistance: Independent Active Geospatial Image Analyst: Yes Mode of Transportation: Car Additional Comments: [...] Other exercises 1: IS x 10 to 5731-3653 ml Plan Times per Week: 5 Times [...] Inpatient Mobility Raw Score: 17 Mobility Inpatient [facility] G-Code Modifier: CK Goals Encounter Problems [...] Raji Ontiveros M.D. Department of Surgery Pager: [phone] PAGING / [facility]stay Secure Chat: From 6a-6p (-s): [facility] Secure Chat (FIRST) or Pager above (EMERGENT/Second) From 6p-6a (-s): Find resident provider under [facility] Surgery - General - Surgical ICU [...] This note may have been dictated using Sword.com Practice Edition and/or Therosteon Voice Recognition Feature. The document was proofread; however, unrecognized voice recognition cargo service agent errors may be present. Associated attestation - [...] assess Fluid Accumulation: No significant fluid accumulation Apple Packing Header Strength: Not Performed Nutrition Assessment: +Nutrition screen. 72F w/ PMHx: CAD s/p PCI, CHF with reduced EF (11/2021 of 15-20%; 06/11/22 EF 30%), Pacemaker for tachy-erica syndrome, atrial fibrillation on Eliquis, COPD, and emphysema. She also has a history of bilateral SFA stenting. Admitted to [facility] for infrarenal abdominal aortic aneurysm without rupture, POD#2 s/p EVAR. Having hypertensive episodes this admission, prn antihypertensive given. Advanced to a regular diet, overall vance diet. Having some back pain, likely from stent placement. Endorses some nausea today w/ associated emesis. Hypoactive BS. Estimated Daily Nutrient Needs: Energy Requirements Based On: Kcal/kg Weight Used for Energy Requirements: [place] Weight for Energy Calculation (kg): 45 kg Total Energy Requirements (kcals/day): 1350 Weight Used for Protein Requirements: [place] Weight in Kg Used for Protein Requirements: [...] Current Body Weight: 59.4 kg (131 lb) [place] Body Weight (lbs) (Calculated): 100 lbs [place] Body Weight (Kg) (Calculated): 45 kg % [place] Body Weight (Calculated): 131 % BMI (kg/m2) [...] Jacqueline Lion MS, RD, LD Contact: or hovelstay Chat Images from the original note were [...] Raji Ontiveros M.D. Department of Surgery Pager: [phone] PAGING / [facility]stay Secure Chat: From -p (-s): [facility] Secure Chat (FIRST) or Pager above (EMERGENT/Second) From 6p-6a (-s): Find resident provider under [facility] Surgery - General - Surgical ICU [...] This note may have been dictated using Truly Edition and/or Therosteon Voice Recognition Feature. The document was proofread; however, unrecognized voice recognition cargo service agent errors may be present. Images from the [...] Raji Ontiveros M.D. Department of Surgery Pager: [phone] PAGING / [facility]stay Secure Chat: From 6a-6p (-s): [facility]stay Secure Chat (FIRST) or Pager above (EMERGENT/Second) From 6p- (-): Find resident provider under [facility] Surgery - General - Surgical ICU [...] This note may have been dictated using Sword.com Practice Edition and/or Therosteon Voice Recognition Feature. The document was proofread; however, unrecognized voice recognition cargo service agent errors may be present. Associated attestation - [...] without hematoma. PT/OT. documented in this encounter [facility] 07-09-2022 Note Care Management Prog ress [...] her pharmacy active medication. Dr Ontiveros aware. [facility] 07-09-2022 Nurse Note Per patient request Dr Ontiveros messaged because she states she takes lorazepam at hs. [facility] 07-09-2022 Note Formatting of this n [...] of Stay (Days): 4 GMLOS: 1.5 T [facility] 07-09-2022 Note Formatting of this n [...] Length of Stay (Days): 4 GMLOS: 1.5 [facility] 07-09-2022 Miscellaneous Notes Images from the [...] Limits Permission given to speak with patient route service representative/caregiver as indicated: Confirmation of Payer with patient/family: Yes Payer Name: [facility] Dual Pulteney: No Confirmation of Primary Care Physician: Confirmed [...] Living Prescription Coverage: Yes Pharmacy Used: [facility] Medication Management: (picks up rx, student fills [...] in recovery and will be admitted to [address] [place] [address]. Sister, maia updated via phone call on pt status. OPERATIVE REPORT DATE OF SERVICE: 07/05/2022 PRE-PROCEDURE DIAGNOSIS: Infrarenal Abdominal aortic aneurysm POST-PROCEDURE DIAGNOSIS: As above PROCEDURE PERFORMED: 1) Bilateral open femoral artery exposure for delivery of endoprosthesis 2) Endovascular infrarenal abdominal aortic aneurysm repair with 29 mm Endologix [place] endograft 3) Placement of 10 mm x [...] SPECIMENS: None IMPLANTS: 1) 29 mm Endologix [place] Main body 2) 14 x 120 mm Ovation iX left iliac limb 3) 16 x 120 mm Ovation iX right iliac limb 4) Palmaz XL stent to Aortic neck 5) 10 x 39 mm [place] [employer] express balloon expandable stent placement to [...] technique was used to place a 6 [place] sheath. This was again performed in a similar fashion on the left with placement of an 8 [place] sheath. The patient was then given 6000 [...] abdominal aorta. On the right, a 14 [place] sheath was placed once the graft was [...] delivery system was removed and a 16 [place] sheath was placed on the left. As [...] with passing anything larger than a 12 [place] catheter from the right, the decision was [...] Procedures ENDOVASCULAR REPAIR OF ABDOMINAL AORTIC ANEURYSM 24238 - SC EVASC RPR DPLMNT [id number] NDGFT OPEN FEMORAL ARTERY EXPOSURE FOR DELIVERY OF ENDOVASCULAR PROSTHESIS 94293 - SC OPN FEM ART EXPOS DLVR [...] STENT CARLOS 10MM 7FR 25MM 135CM - [id number] Implanted Staff: Volunteer Services Manager: Georgina Daley RN Nurse Practitioner: Jolynn Meza APRN - CHEMICAL WASTE MANAGEMENT TECHNICIAN Relief Scrub: Fercho Crystal Scrub Person: Landy [...] Vancomycin or flouroquinolone) documented in this encounter [facility] 07-09-2022 Hospital Discharge instructions Franklin Ontiveros MD - 07/09/2022 2:55 PM EDT Discharge Instructions for Endovascular Repair of Abdominal Aortic Aneurysm Call Dr. Parker's office [phone] for follow-up appointment. During endovascular repair, the [...] regular diet. You may work with a emergency medical dispatcher who will help you follow a heart-healthy [...] do so. Medications Your doctor may recommend: Uycl-pcg-krewzpu or prescription pain medicine Aspirin or a [...] taking more than one drug. This includes ndvc-ttr-zhxltlf medicines and herb or dietary supplements. Plan [...] emergency, CALL 911. documented in this encounter [facility] 07-09-2022 Nurse Note In chair, encouraged incentive spirometer. [facility] 07-09-2022 Nurse Note Patient awakens for assessment. She is sleepy but follows all commands. She answers all questions appropriately. Neuro checks are within normal limits. She is oriented x4. Able to demonstrate use of call light. Bed alarm on for safety. Dr Ontiveros updated. [facility] 07-08-2022 Note Problem: Pain - Adul [...] Goal: Free from fall injury Outcome: Progressing [facility] [facility] Note Sister Maia francesco nuñez on plan of care. [facility] 07-08-2022 Note Formatting of this n ote might be different from the original. Care Managment Initial Assessment Date: 07/08/2022 Patient Name: Kathy Puri : 1950 Patient Information Source of Information: Patient Cognition/Language: WFL - Within Functional Limits Permission given to speak with patient route service representative/caregiver as indicated: Confirmation of Payer with patient/family: Yes Payer Name: [facility] Dual [place]: No Confirmation of Primary Care Physician: Confirmed [...] Living Prescription Coverage: Yes Pharmacy Used: [facility] Medication Management: (picks up rx, student fills [...] needs. TCC to follow. Jackie Kelly RN [facility] 07-08-2022 Note Formatting of this n ote might be different from the original. Care Managment Initial Assessment Date: 07/08/2022 Patient Name: Kathy Puri : 1950 Patient Information Source of Information: Patient Cognition/Language: WFL - Within Functional Limits Permission given to speak with patient route service representative/caregiver as indicated: Confirmation of Payer with patient/family: Yes Payer Name: [facility] Dual [place]: No Confirmation of Primary Care Physician: Confirmed [...] Living Prescription Coverage: Yes Pharmacy Used: [facility] Medication Management: (picks up rx, student fills [...] TCC to follow. 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 She will have assistance from her mother [...] of Anemia, Anxiety, Arrhythmia, Arthritis, Cancer (CMS/HCC) ([facility]), CHF (congestive heart failure) (CMS/HCC) ([facility]), CKD (chronic kidney disease), COPD (chronic obstructive pulmonary disease) ([facility]), Depression, GERD (gastroesophageal reflux disease), Heart valve disease, Hyperlipidemia, Hypertension, Irritable bowel syndrome, Joint pain, Myocardial infarction (CMS/HCC) ([facility]), Pacemaker, PAD (peripheral artery disease) ([facility]), and Sleep apnea. has a past [...] With device?: No Transfer Assistance: Independent Active Geospatial Image Analyst: Yes Mode of Transportation: Car Additional Comments: [...] Other exercises 1: IS x 10 to 9668-5169 ml Plan Times per Week: 5 Times per Day: Daily Plan Weeks: 2 Current Treatment Recommendations: Strengthening, Func (more content not included)... [facility] 07-08-2022 Nurse Note Sister Maia updated on plan of care. T [facility] 07-08-2022 Plan of care note Problem: Pain - Adult Goal: Verbalizes/displays adequate comfort level or baseline comfort level Outcome: Progressing Problem: Safety - Adult Goal: Free from fall injury Outcome: Progressing Problem: Discharge Planning Goal: Discharge to home or other facility with appropriate resources Outcome: Progressing T [facility] 07-07-2022 Note Problem: Pain - Adul [...] Goal: Free from fall injury Outcome: Progressing T [facility] 07-07-2022 Note Department of Surger y [...] 161/45 -- -- 60 11 -- 07/06/22 221 (!) 166/44 36.4 ?C (97.5 ?F) Temporal 60 13 97 % 07/06/222011 (!) 164/44 -- -- -- -- -- 07/06/221999 (!) 164/44 -- -- 60 12 96 % 07/06/22 190 (!) 177/55 36 ?C (96.8 ?F) Temporal 61 12 94 % 07/06/22 190 (!) 177/55 -- -- 63 13 93 [...] other facility with appropriate resources Outcome: Progressing [facility] 07-05-2022 Nurse Note paged in regards to patient elevated BP. [facility] 07-05-2022 Note Formatting of this n ote might be different from the original. Updated pt's sister over phone that pt is doing well in recovery and will be admitted to 1 C- 133 A shortly. [facility] 07-05-2022 Note Formatting of this n ote might be different from the original. Updated pt's sister over phone that pt is doing well in recovery and will be admitted to 1 C- 133 A shortly. [facility] 07-05-2022 Note Patient: Kathy xie Procedure Summary Date: 07/05/22 [place] [facility] [place] Anesthesia Start: 730 Anesthesia Stop: [...] [facility] 07-05-2022 Note Patient: Kathy xie Procedure Summary Date: 07/05/22 Room / Location: [facility] Operating Room Anesthesia Start: 07 Anesthesia Stop: 1413 Procedures: ENDOVASCULAR REPAIR OF ABDOMINAL AORTIC ANEURYSM [...] updated via phone call on pt status. [facility] 07-05-2022 Note Formatting of this n ote might be different from the original. maia Marcum updated via phone call on pt status. [facility] 07-05-2022 Note Airway Date/Time: 07/05/2022 7:49 AM Urgency: scheduled Airway not difficult General Information and Staff Patient location during procedure: Procedural Anesthesiologist: Elgin Castro MD Resident/AUTOMATED EQUIPMENT ENGINEER TECHNICIAN: Antonio Mast APRN - AUTOMATED EQUIPMENT ENGINEER TECHNICIAN Performed: SRNA Indications and Patient Condition Indications for airway management: anesthesia and airway protection Sedation level: Asleep Preoxygenated: yes Patient position: sniffing MILS maintained throughout Mask difficulty assessment: 1 - vent by mask Final Airway Details Final airway type: endotracheal airway Successful airway: ETT Cuffed: yes Successful intubation technique: direct laryngoscopy Facilitating devices/methods: intubating stylet Endotracheal tube insertion site: oral Blade: Liir Blade size: #3 ETT size (mm): 7.0 [...] aortic aneurysm repair with 29 mm End[employer]ix [place] endograft 3) Placement of 10 mm x 37 mm Balloon expandable stent placement to the right common iliac limb 4) Palmaz stent placement to the infrarenal aortic neck SURGEON: Lana Parker MD ASSISTANTS: Jolynn Meza APRN-CHEMICAL WASTE MANAGEMENT TECHNICIAN, Raji Ontiveros MD (PGY-1), Brian Nuñez MD [...] SPECIMENS: None IMPLANTS: 1) 29 mm Endologix [place] Main body 2) 14 x 120 mm Ovation iX left iliac limb 3) 16 x 120 mm Ovation iX right iliac limb 4) Palmaz XL stent to Aortic neck 5) 10 x 39 mm [employer] express balloon expandable stent placement to [...] technique was used to place a 6 Djiboutian sheath. This was again performed in a similar fashion on the left with placement of an 8 [place]ian sheath. The patient was then given 6000 units of heparin for systemic anticoagulation. This was redosed throughout the case as needed. On the right, a Kite catheter was used to obtain access to [...] abdominal aorta. On the right, a 14 [place]ib[place]ian sheath was placed once the graft was [...] seen/examined on 06/26/2022 Procedure Information Date/Time: 07/05/22 6730 Procedures: ENDOVASCULAR REPAIR OF ABDOMINAL AORTIC ANEURYSM OPEN FEMORAL ARTERY EXPOSURE FOR DELIVERY OF ENDOVASCULAR PROSTHESIS (Bilateral) Location: [facility] Operating Room Surgeons: Lana Parker MD [...] afib No date: Arthritis No date: Cancer ([facility]) ([facility]) Comment: ovarian No date: CHF (congestive heart failure) ([facility]) ([facility]) No date: CKD (chronic kidney disease) No date: COPD (chronic obstructive pulmonary disease) ([facility]) No date: Depression No date: GERD (gastroesophageal reflux disease) No date: Heart valve disease No date: Hyperlipidemia No date: Hypertension No date: Irritable bowel syndrome No date: Joint pain No date: Myocardial infarction ([facility]) ([facility]) No date: Pacemaker No date: PAD (peripheral artery disease) ([facility]) No date: Sleep apnea Comment: uses [...] OP cardiology 3) CAD - Hx of TN and stent insertion 2002 - Managed on Eliquis, statin, metoprolol, [...] Screen and Sleep Clinic Referral (if appropriate) [facility] Phone: 07-05-2022 Note Formatting of this n ote might be different from the original. OPERATIVE REPORT DATE OF SERVICE: 07/05/2022 PRE-PROCEDURE DIAGNOSIS: Infrarenal Abdominal aortic aneurysm POST-PROCEDURE DIAGNOSIS: As above PROCEDURE PERFORMED: 1) Bilateral open femoral artery exposure for delivery of endoprosthesis 2) Endovascular infrarenal abdominal aortic aneurysm repair with 29 mm Endologix [place] endograft 3) Placement of 10 mm x [...] SPECIMENS: None IMPLANTS: 1) 29 mm End[employer]ix [place] Main body 2) 14 x 120 mm Ovation iX left iliac limb 3) 16 x 120 mm Ovation iX right iliac limb 4) Palmaz XL stent to Aortic neck 5) 10 x 39 mm [employer] express balloon expandable stent placement to [...] technique was used to place a 6 [place]ib[place]ian sheath. This was again performed in a similar fashion on the left with placement of an 8 [place]ian sheath. The patient was then given 6000 units of heparin for systemic anticoagulation. This was redosed throughout the case as needed. On the right, a Kite catheter was used to obtain access to [...] abdominal aorta. On the right, a 14 [place]ib[place]ian sheath was placed once the graft was [...] delivery system was removed and a 16 [place]ib[place]ian sheath was placed on the left. As [...] with passing anything larger than a 12 [place]ib[place]ian catheter from the right, the decision was [...] the case. Lana Parker MD Vascular Surgery [facility] 07-05-2022 Note Formatting of this n ote is different from the original. Date: 07/05/2022 Location: [facility] OR Name: Kathy Puri, : 1950, Diagnosis Pre-op Diagnosis * Infrarenal abdominal aortic aneurysm, without rupture (HCC) [I71.43] Post-op Diagnosis * Infrarenal abdominal aortic aneurysm, without rupture (HCC) [I71.43] Procedures ENDOVASCULAR REPAIR OF ABDOMINAL AORTIC ANEURYSM 16083 - SC EVASC RPR DPLMNT EAVZI-OR-NICCC NDGFT OPEN FEMORAL ARTERY EXPOSURE FOR DELIVERY OF ENDOVASCULAR PROSTHESIS 57651 - SC OPN FEM ART EXPOS DLVR EVASC PROSTH UNI Surgeons * Laan Parker - Primary * Brian Nuñez - Assisting Procedure Summary Anesthesia: General ASA: IV Estimated Blood Loss: Minimal Drains: Urethral Catheter 16 Fr. (Active) Implants Type Name Action Serial No. Stent TM ABDOMINAL STENT GRAFT SYSTEM Implanted Stent ILIAC STENT GRAFT Implanted Stent ILIAC STENT GRAFT Implanted Stent palmaz xl Implanted Stent LD Iliac/Biliary Implanted Stent STENT CARLOS 10MM 7FR 25MM 135CM - [id number] Implanted Staff: Volunteer Services Manager: Georgina Daley RN Nurse Practitioner: Jolynn Meza APRN - CHEMICAL WASTE MANAGEMENT TECHNICIAN Relief Scrub: Fercho Crystal Scrub Person: Landy [...] (two hours if receiving Vancomycin or flouroquinolone) [facility] 07-05-2022 Note Formatting of this n ote might be different from the original. OPERATIVE REPORT DATE OF SERVICE: 07/05/2022 PRE-PROCEDURE DIAGNOSIS: Infrarenal Abdominal aortic aneurysm POST-PROCEDURE DIAGNOSIS: As above PROCEDURE PERFORMED: 1) Bilateral open femoral artery exposure for delivery of endoprosthesis 2) Endovascular infrarenal abdominal aortic aneurysm repair with 29 mm Endologix [place] endograft 3) Placement of 10 mm x [...] SPECIMENS: None IMPLANTS: 1) 29 mm End[employer]ix [place] Main body 2) 14 x 120 mm Ovation iX left iliac limb 3) 16 x 120 mm Ovation iX right iliac limb 4) Palmaz XL stent to Aortic neck 5) 10 x 39 mm [employer] express balloon expandable stent placement to [...] technique was used to place a 6 Djib[place]ian sheath. This was again performed in a similar fashion on the left with placement of an 8 [place]ib[place]ian sheath. The patient was then given 6000 [...] abdominal aorta. On the right, a 14 Djiboutian sheath was placed once the graft was [...] delivery system was removed and a 16 [place]ib[place]ian sheath was placed on the left. As [...] with passing anything larger than a 12 [place]ib[place]ian catheter from the right, the decision was [...] the case. Lana Parker MD Vascular Surgery [facility] 07-05-2022 Note Formatting of this n ote is different from the original. Date: 07/05/2022 Location: [facility] OR Name: Kathy Puri, : 1950, Diagnosis Pre-op Diagnosis * Infrarenal abdominal aortic aneurysm, without rupture (HCC) [I71.43] Post-op Diagnosis * Infrarenal abdominal aortic aneurysm, without rupture (HCC) [I71.43] Procedures ENDOVASCULAR REPAIR OF ABDOMINAL AORTIC ANEURYSM 86308 - SC EVASC RPR DPLMNT [id number] NDGFT OPEN FEMORAL ARTERY EXPOSURE FOR DELIVERY OF ENDOVASCULAR PROSTHESIS 70610 - SC OPN FEM ART EXPOS DLVR [...] STENT CARLOS 10MM 7FR 25MM 135CM - [id number] Implanted Staff: Volunteer Services Manager: Georgina Daley RN Nurse Practitioner: Jolynn Meza, ORE SAMPLER - CHEMICAL WASTE MANAGEMENT TECHNICIAN Relief Scrub: Fercho Crystal Scrub Person: Landy [...] (two hours if receiving Vancomycin or flouroquinolone) [facility] 07-05-2022 History and physical note H&P [...] FOR DELIVERY OF ENDOVASCULAR PROSTHESIS (Bilateral) Location: [facility] Operating Room Surgeons: Lana Parker MD [...] afib No date: Arthritis No date: Cancer ([facility]) ([facility]) Comment: ovarian No date: CHF (congestive heart failure) ([facility]) ([facility]) No date: CKD (chronic kidney disease) No date: COPD (chronic obstructive pulmonary disease) ([facility]) No date: Depression No date: GERD (gastroesophageal reflux disease) No date: Heart valve disease No date: Hyperlipidemia No date: Hypertension No date: Irritable bowel syndrome No date: Joint pain No date: Myocardial infarction ([facility]) ([facility]) No date: Pacemaker No date: PAD (peripheral artery disease) ([facility]) No date: Sleep apnea Comment: uses [...] OP cardiology 3) CAD - Hx of TN and stent insertion 1998, 2002 - Managed [...] Referral (if appropriate) documented in this encounter [facility] 06-28-2022 Telephone encounter Note I have tried to call patient back for 2 days her voice mail box is full. At no point in her OV or in surgical scheduling did she mention a mcc. I find nothing in her chart. Trying to find out what facility called. [facility] 06-28-2022 Miscellaneous Notes I have tried to call patient back for 2 days her voice mail box is full. At no point in her OV or in surgical scheduling did she mention a mcc. I find nothing in her chart. Trying to find out what facility called. ALYSSIA Spoke with Matt at nursing facility that patient resides in, nurse asking what medications are to be held/continued. Below information given SURGERY: ENDOVASCULAR REPAIR OF AAA DATE OF SURGERY: 07/05/2022 7:30 AM PRE TESTIN06/26/2022 12:00 AUTH #: [id number] CARDIAC CLEARANCE YES CARDIAC DR TREVIÑO , PULMONARY DR TOBAR 05/28/2022 POST OP OR OV: 07/17/2022 10:15 MEDS TO HOLD: ELIQUIS HOLD 48 HOURS PRIOR, THE MORNING OF SURGERY HOLD FUROSEMIDE MEDS TO CONTINUE: PLAVIX, OTHERS documented in this encounter [facility] 06-27-2022 Telephone encounter Note ALYSSIA Spoke with Matt at nursing facility that patient resides in, nurse asking what medications are to be held/continued. Below information given [facility] 06-27-2022 Miscellaneous Notes ALYSSIA Spoke with Matt at nursing facility that patient resides in, nurse asking what medications are to be held/continued. Below information given SURGERY: ENDOVASCULAR REPAIR OF AAA DATE OF SURGERY: 07/05/2022 7:30 AM PRE TESTIN06/26/2022 12:00 AUTH #: [id number] CARDIAC CLEARANCE YES CARDIAC DR TREVIÑO , PULMONARY DR TOBRA 05/28/2022 POST OP OR OV: 07/17/2022 10:15 MEDS TO HOLD: ELIQUIS HOLD 48 HOURS PRIOR, THE MORNING OF SURGERY HOLD FUROSEMIDE MEDS TO CONTINUE: PLAVIX, OTHERS documented in this encounter [facility] 06-26-2022 Note Patient: Kathy xie Procedure Information Date/Time: 07/05/22729 Procedures: ENDOVASCULAR REPAIR OF ABDOMINAL AORTIC ANEURYSM OPEN FEMORAL ARTERY EXPOSURE FOR DELIVERY OF ENDOVASCULAR PROSTHESIS (Bilateral) Location: [facility] Operating Room Surgeons: Lana Parker MD Past Medical History: Past Medical History: No date: Anemia No date: Anxiety No date: Arrhythmia Comment: afib No date: Arthritis No date: Cancer ([facility]) ([facility]) Comment: ovarian No date: CHF (congestive heart failure) ([facility]) ([facility]) No date: CKD (chronic kidney disease) No date: COPD (chronic obstructive pulmonary disease) ([facility]) No date: Depression No date: GERD (gastroesophageal reflux disease) No date: Heart valve disease No date: Hyperlipidemia No date: Hypertension No date: Irritable bowel syndrome No date: Joint pain No date: Myocardial infarction ([facility]) ([facility]) No date: Pacemaker No date: PAD (peripheral artery disease) ([facility]) No date: Sleep apnea Comment: uses [...] work up ECHO and EF:Echo 06/11/22 ?Pacemaker [employer] scanned into media last check 02/2022 [...] FOR DELIVERY OF ENDOVASCULAR PROSTHESIS (Bilateral) Location: [facility] Operating Room Surgeons: Lana Parker MD [...] afib No date: Arthritis No date: Cancer ([facility]) ([facility]) Comment: ovarian No date: CHF (congestive heart failure) ([facility]) ([facility]) No date: CKD (chronic kidney disease) No date: COPD (chronic obstructive pulmonary disease) ([facility]) No date: Depression No date: GERD (gastroesophageal reflux disease) No date: Heart valve disease No date: Hyperlipidemia No date: Hypertension No date: Irritable bowel syndrome No date: Joint pain No date: Myocardial infarction (CMS/HCC) (HCC) No date: Pacemaker No date: PAD (peripheral artery disease) ([facility]) No date: Sleep apnea Comment: uses [...] seen/examined on 06/26/2022 Procedure Information Date/Time: 07/05/22 8190 Procedures: ENDOVASCULAR REPAIR OF ABDOMINAL AORTIC ANEURYSM OPEN FEMORAL ARTERY EXPOSURE FOR DELIVERY OF ENDOVASCULAR PROSTHESIS (Bilateral) Location: [facility] Operating Room Surgeons: Lana Parker MD [...] afib No date: Arthritis No date: Cancer ([facility]) ([facility]) Comment: ovarian No date: CHF (congestive heart failure) ([facility]) ([facility]) No date: CKD (chronic kidney disease) No date: COPD (chronic obstructive pulmonary disease) ([facility]) No date: Depression No date: GERD (gastroesophageal reflux disease) No date: Heart valve disease No date: Hyperlipidemia No date: Hypertension No date: Irritable bowel syndrome No date: Joint pain No date: Myocardial infarction ([facility]) ([facility]) No date: Pacemaker No date: PAD (peripheral artery disease) ([facility]) No date: Sleep apnea Comment: uses [...] 7:30 AM PRE TESTIN06/26/2022 12:00 AUTH #: [id number] CARDIAC CLEARANCE YES CARDIAC DR TREVIÑO , PULMONARY DR TOBAR 05/28/2022 POST OP OR OV: 07/17/2022 10:15 MEDS TO HOLD: ELIQUIS HOLD 48 HOURS PRIOR, THE MORNING OF SURGERY HOLD FUROSEMIDE MEDS TO CONTINUE: PLAVIX, OTHERS [facility] 06-13-2022 Telephone encounter Note Received final cardiac clearance and copy of Echo done 06/11/22. Dr. TreviñoFqcrt-Tjmsxulfombd-qkuaidg patient on 06/12/22 Dr. Zack TobarDoxycv-Ngvzyshht-Ujokdcz patient on 05/28/22. Dr. Parker reviewed the clearances and signed off on them. I will reach out to patient to schedule the surgery. [facility] 06-13-2022 Miscellaneous Notes Received final cardiac clearance and copy of Echo done 06/11/22. Dr. TreviñoTcsub-Gmmhqtrpmgul-sejnpbf patient on 06/12/22 Dr. Zack TobarVcfvzv-Xcxkdbaxu-Yzrjpgr patient on 05/28/22. Dr. Parker reviewed the [...] to speak with Dr. Parker again. Patient# [phone] Clearance has been received from Dr. Treviño's [...] now on 06/11/22 at 2:00 pm at [facility]. documented in this encounter [facility] 06-12-2022 Telephone encounter Note Call placed to Dr. Treviño's office and spoke with Adeline to make sure patient had the Echo done on 06/11/22. Patient did complete the Echo per Adeline and our form for Cardiac Clearance/Optimization was re-faxed for confirmation after new Echo complete. Pending final outcome. [facility] 05-31-2022 Telephone encounter Note Noted will await Echocardiogram results. [facility] 05-30-2022 Telephone encounter Note I called the [...] questions were answered to the patient's satisfaction. [facility] Work Phone: 05-30-2022 Telephone encounter Note Patient is going to be scheduled for: Endovascular Repair Of Abdominal Aortic Aneurysm, pending out come of Echocardiogram on 06/11/[address] Treviño. Patient is asking if she really has to have this surgery? She would like to speak with Dr. Parker again. Patient# [phone] [facility] 05-30-2022 Telephone encounter Note Clearance has been received from Dr. Treviño's office. Call placed to Dr. Treviño's office to confirm that they are going to rescheduled the Echocardiogram that patient lulú showed to on 05/23/22. The office told [...] now on 06/11/22 at 2:00 pm at [facility]. [facility] 05-27-2022 Note Vascular Surgery Out patient [...] disease) Hyperlipidemia Hypertension PAD (peripheral artery disease) ([facility]) Past SurgicalHistory: Past Surgical History: Procedure [...] disease) Hyperlipidemia Hypertension PAD (peripheral artery disease) ([facility]) Past SurgicalHistory: Past Surgical History: Procedure [...] new ECHO had been ordered by her hydraulic oil tool operator in [place] however she did not show for the appointment. This will need to be completed prior to consideration of intervention. We will also reach out to her car electronics installer in [place] as she has had a recent evaluation however these records are unavailable. Should she be a suitable candidate from a cardiac and pulmonary standpoint, we will plan to proceed with EVAR. All questions were answered. Lana Parker MD Vascular Surgery documented in this encounter [facility] 05-16-2022 Note Received referral fr Dr Marroquin for Eval AAA. CTA 02/26/22 images in Pac[employer] Measured by [employer] rep. Have tried to reach patient several times: 05/07/22; 05/10/22; 05/16/22 Voice Mailbox is full. To be scheduled with Dr Parker or Dr Whiting. Scanned into [facility] 06-23-2021 Miscellaneous Notes All scheduled in June Please call patient to schedule US ABB prior to appt 06/26/21 Please change her to an established patient she has seen a previous vascular provider in our office Thank you documented in this encounter [facility] 05-16-2021 Miscellaneous Notes Left message to [...] Yoanna Morris Pss documented in this encounter [facility] 11-22-2020 Miscellaneous Notes On the way. Dianne Mccullough LPN Please pull ER visit from yesterday. Thanks, Aminata Barrera APRN.CNP documented in this encounter [facility] 09-19-2020 Miscellaneous Notes Second call placed [...] Florencia Hwang LPN documented in this encounter [facility] 09-08-2020 History of Present illness Narrative Radiology Service Progress Note PATIENT NAME: Kathy Puri DATE OF SERVICE: September 08, 2020 TIME: 1:09 PM PATIENT IDENTITY VERIFICATION COMPLETED USING TWO (2) IDENTIFIERS: Name and Date of confirmed by patient verbally. FALL SCREENING: Has the patient had 2 falls in the last year or 1 fall with injury or currently using an Ambulatory Assistive Device (Walker, Cane, Wheelchair, Crutches, etc.)? No PATIENT GENDER DATA: Female. status: : No status: NO. PATIENT RELEVANT IMPLANT DATA REVIEWED: Not Applicable RADIOLOGY DEPARTMENT: General X-ray: Exam(s) Completed: Spine X-Ray(s): Cervical AP / LAT / OBL PERIPHERAL IV DATA: Not applicable SIGNED BY: RT Carmen(R) September 08, 2020 1:09 PM documented in this encounter [facility] 08-22-2020 Miscellaneous Notes Thanks. Hospital notes collected and placed in you inbox on desk. Will see when gets released and schedule office visit. Reviewed. Please pull ER report tomorrow and will schedule OV once released from hospital. Daughter and Argelia [place], want's pcp to know, first of all, patient just left via squad to [facility] ER, for c/o CP. Depending on how that goes, Argelia anticipates patient will f/u with pcp. Wanted pcp to know, patient is having terrible anxiety: unable to sleep, and it is getting the best of her. States something needs to be done. Patient saw steward/stewardess second class yesterday, who advised daughter, patient needs to contact pcp to treat her anxiety. Daughter states she does not want the treatment to be ativan or xanax. Wanted to give pcp a heads up that this is something that needs to be addressed in the near future. documented in this encounter [facility] 04-05-2020 History of Present illness Narrative Radiology Service Progress Note PATIENT NAME: Kathy Puri DATE OF SERVICE: April 05, 2020 TIME: 7:00 PM PATIENT IDENTITY VERIFICATION COMPLETED USING TWO (2) IDENTIFIERS: Name and Date of confirmed by patient verbally. FALL SCREENING: Has the patient had 2 falls in the last year or 1 fall with injury or currently using an Ambulatory Assistive Device (Walker, Cane, Wheelchair, Crutches, etc.)? Yes, Patient High Risk for Falls What interventions were put in place to prevent falls during this visit? Instructed Patient to Call for Help if Needed and Increased Observations by Caregivers PATIENT GENDER DATA: Female. status: : No status: NO. PATIENT RELEVANT IMPLANT DATA REVIEWED: Not Applicable RADIOLOGY DEPARTMENT: General X-ray: Exam(s) Completed: Spine X-Ray(s): Sacrum/Coccyx PERIPHERAL IV DATA: Not applicable SIGNED BY: RT Hmuberto April 05, 2020 7:00 PM documented in this encounter [facility] 12-06-2015 History of Past i llness Narrative Problem Noted Date Resolved Date Pain of [...] of this encounter (statuses as of 05/16/2021) [facility] History of Past illness Narrative* Problem [...] of this encounter (statuses as of 06/26/2021) [facility] History of Past illness Narrative* Problem [...] of this encounter (statuses as of 08/15/2021) [facility] of Past illness Narrative* Problem [...] of this encounter (statuses as of 08/23/2021) [facility] of Past illness Narrative* Problem [...] of this encounter (statuses as of 10/05/2021) [facility] of Past [facility] Narrative* Problem Noted Date Resolved Date Pain of left lower extremity 12/06/2015 Shortness of breath 11/04/2014 03/15/2019 Family history of ischemic heart disease 2 015 03/15/2019 Pelvic pain 05/07/2013 01/02/2016 Urinary frequency 05/07/2013 03/15/2019 Hematuria, microscopic 05/07/2013 9 Nocturia 05/07/2013 03/15/2019 Myofascial pain 01/15/2013 03/15/2019 Cellulitis, abdominal wall 09/20/201101/29 Ovarian cancer 09/13/2011 05/07/2013 Pelvic mass in female 07/23/2011 05/07/2013 Vulvovaginitis 07/16/2011 01/13/2014 Heart disease 01/29/2017 Overview: Heart Attack (2) documented as of this encounter (statuses as of 10/15/2021) [facility] note* Diagnosis Encounter for screening mammogram for breast cancer documented in this encounter [facility] note* Diagnosis Infrarenal abdominal aortic aneurysm (AAA) without rupture- Primary documented in this encounter [facility] note* Diagnosis Infrarenal abdominal aortic aneurysm (AAA) without rupture (HCC)- Primary Infrarenal abdominal aortic aneurysm, without rupture (HCC) documented in this encounter [facility] note* Diagnosis Preop testing Unspecified pre-operative examination Infrarenal abdominal aortic aneurysm, without rupture (HCC) documented in this encounter [facility] note* Diagnosis Infrarenal abdominal aortic aneurysm (AAA) without rupture (HCC)- Primary Infrarenal abdominal aortic aneurysm (AAA) without rupture (HCC) documented in this encounter [facility] note* Diagnosis Infrarenal abdominal aortic aneurysm (AAA) without rupture (HCC)- Primary Status post endovascular aneurysm repair (EVAR) documented in this encounter [facility] note* Diagnosis Status post endovascular aneurysm repair (EVAR)- Primary Pre-procedure lab exam Pre-procedural laboratory examination documented in this encounter [facility] note* Diagnosis 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) documented in this encounter [facility] note* Diagnosis Encounter for screening mammogram for breast cancer documented in this encounter [facility] note* Diagnosis Cervicalgia documented in this encounter [facility] note* Diagnosis Pain in the coccyx Other disorder of coccyx documented in this encounter [facility] for referral (narrative)* Diagnostic Procedure Only (Routine) - Pending Review Specialty Diagnoses / Procedures Referred By Contac t Referred To Contact [facility] Diagnoses Encounter for screening mammogram for breast cancer Procedures DENTON SCREENING SCREENING MAMMOGRAPHY BI 2-VIEW BREAST INC Cathi Bennett MD [address] [place] [address] [facility] [address] [place] [address] Referral ID Status Reason Start Date Expiration Date Visits Requested Visits Authorized [id number] Pending Review Auto-Generat ed Referral 10/10/2021 11/09/2022 1 1 [facility] Diagnostic Procedure Only (Routine) - Pending Review Specialty Diagnoses / Procedures Referred By Contac t Referred To Contact [facility] Diagnoses Encounter for screening mammogram for breast cancer Procedures DENTON SCREENING SCREENING MAMMOGRAPHY BI 2-VIEW BREAST INC Cathi Bennett MD [address] [place] [address] [facility] [address] [place] [address] Referral ID Status Reason Start Date Expiration Date Visits Requested Visits Authorized [id number] Pending Review Auto-Generat ed Referral 08/20/2023 09/18/2024 1 1 T [facility] Advance Directives Documents on File Type Date Recorded Patient Hvac Manager Expl anation Advance Directive(s) 09/08/2012 10:30 AM Documents on File Type Date Recorded Patient Hvac Manager Expl anation Advance Directive(s) 09/08/2012 10:30 [...] Lana Parker MD [address] [place] [address] Referral ID Status Reason Start Date Expiration Date V isits Requested Visits Authorized [id number] Pending Review 07/24/2022 01/20/2023 1 1 Specialty Diagnoses / Procedures Referred By Contac t Referred To Contact Radiology Diagnoses Status post endovascular aneurysm repair (EVAR) Procedures CTA abdomen pelvis angiogram w and/or wo IV contrast Lana Parker MD [address] [place] [id number] Referral ID Status Reason Start Date Expiration Date V isits Requested Visits Authorized [id number] Pending Review 08/19/2022 02/15/2023 1 1 Summary [...] or prosecute any alcohol or drug abuse patient.[facility] the event this information is protected by the Federal Confidentiality of Alcohol and Drug Abuse Patient Records regulations: The Federal rules restrict any use of the information to criminally investigate or prosecute any alcohol or drug abuse patient.[facility] the event this information is protected by the Federal Confidentiality of Alcohol and Drug Abuse Patient Records regulations: The Federal rules restrict any use of the information to criminally investigate or prosecute any alcohol or drug abuse patient.[facility] the event this information is protected by the Federal Confidentiality of Alcohol and Drug Abuse Patient Records regulations: The Federal rules restrict any use of the information to criminally investigate or prosecute any alcohol or drug abuse patient.[facility] the event this information is protected by the Federal Confidentiality of Alcohol and Drug Abuse Patient Records regulations: The Federal rules restrict any use of the information to criminally investigate or prosecute any alcohol or drug abuse patient.[facility] the event this information is protected by the Federal Confidentiality of Alcohol and Drug Abuse Patient Records regulations: The Federal rules restrict any use of the information to criminally investigate or prosecute any alcohol or drug abuse patient.[facility] the event this information is protected by the Federal Confidentiality of Alcohol and Drug Abuse Patient Records regulations: The Federal rules restrict any use of the information to criminally investigate or prosecute any alcohol or drug abuse patient.[facility] the event this information is protected by the Federal Confidentiality of Alcohol and Drug Abuse Patient Records regulations: The Federal rules restrict any use of the information to criminally investigate or prosecute any alcohol or drug abuse patient.[facility] the event this information is protected by the Federal Confidentiality of Alcohol and Drug Abuse Patient Records regulations: The Federal rules restrict any use of the information to criminally investigate or prosecute any alcohol or drug abuse patient.[facility] Reason for Visit (unrecogniz ed section and content) Reason Onset Date Comments Refill Request 05/16/2021 Reason Comments Appointment Reason Comments Anxiety Reason [...] (HCC) [I71.43] Procedures SC EVASC RPR DPLMNT XBYMI-XO-ENERX NDGFT SC OPN FEM ART EXPOS DLVR EVASC PROSTH UNI ENDOVASCULAR REPAIR OF ABDOMINAL AORTIC ANEURYSM OPEN FEMORAL ARTERY EXPOSURE FOR DELIVERY OF ENDOVASCULAR PROSTHESIS Lana Parker MD [address] [facility] [address] [place] [address] [address] [place] [address] Referral ID Status Reason Start Date Expiration Date Visits Re quested Visits Authorized [id number] 1 1 Reason Comments Post-op 1st PO EVAR of AAA 0 07/05/2022 Reason Comments Post-op EVAR 07/05/2022 / Dis cuss CTA 08/08/2024 Reason Comments Heart Problem Pt arrived by EMS fr [facility] (blue sheet) due cardiac issues( AAA leaking) . Upon assessment pt is a&ox3 msps intact - cp - sob - dizziness - n/v - pain. 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 Ector Whiting MD [address] [place] [address] [address] [place] [address] Referral ID Status Reason Start Date Expiration Date Visits Re quested Visits Authorized [id number] 1 1 Care Teams (unrecognized sec tion and content) Cascara Bark Cutter Relationship Specialty Start Date End Date Cathi Hayes MD [address] [facility] [place] [address] PCP - General Family Practice 05/16/21 Cascara Bark Cutter Relationship Specialty Start Date End Date Cathi Hayes MD [address] [place] [place] [address] PCP - General Family Practice 05/16/21 Cascara Bark Cutter Relationship Specialty Start Date End Date Cathi Hayes MD [address] [facility] [place] [address] PCP - General Family Practice 01/29/17 12/24/20 Ector Jewell(Historical), PCP - General Family Practice 12/25/20 Cathi Hayes MD [address] [facility] [place] [address] PCP - General Family Practice 05/16/21 Cascara Bark Cutter Relationship Specialty Start Date End Date Cathi Hayes MD [address] [facility] [place] [address] PCP - General Family Practice 01/29/17 12/24/20 Ector Jewell(Historical), PCP - General Family Practice 12/25/20 Cathi Hayes MD [address] [facility] [place] [address] PCP - General Family Practice 05/16/21 Cascara Bark Cutter Relationship Specialty Start Date End Date Cathi Hayes MD [address] [place] [address] PCP - General Family Practice 05/16/21 Cascara Bark Cutter Relationship Specialty Start Date End Date Alexandre Ayoub MD [address] [facility] [place] [address] PCP - General 05/27/22 Lana Parker MD [address] [place] [address] Consulting Physician Vascular Surgery 05/27/22 Cascara Bark Cutter Relationship Specialty Start Date End Date Alexandre Ayoub MD [address] [facility] [place] [address] PCP - General Sales And Support Center Agent 05/27/22 Lana Parker MD [address] [facility] [address] [place] [address] Surgeon Vascular Surgery 05/27/22 Jaime Treviño [address] [facility] [address] Autographer Internal Medicine Cardiovascular Disease 05/28/22 Zack Tobar [address] [facility] [place] [address] Net Repairer Pulmonology 05/28/22 Sharlene Moffett -Device nurse at Dr Treviño's Office 05/29/22 Cascara Bark Cutter Relationship Specialty Start Date End Date Alexandre Ayoub MD [address] [facility] [place] [address] PCP - General Sales And Support Center Agent 05/27/22 Lana Parker MD [address] [address] Surgeon Vascular Surgery 05/27/22 Pablito Treviñoril [address] [facility] [place] [address] Autographer Internal Medicine Cardiovascular Disease 05/28/22 Zack Tobar [address] [place] [address] Net Repairer Pulmonology 05/28/22 Sharlene Moffett -Device nurse at Dr Treviño's Office 05/29/22 Cascara Bark Cutter Relationship Specialty Start Date End Date Alexandre Ayoub MD [address] [facility] [place] [address] PCP - General Sales And Support Center Agent 05/27/22 Lana Parker MD [address] [address] Surgeon Vascular Surgery 05/27/22 Jaime Treviño [address] [facility] [address] Autographer Internal Medicine Cardiovascular Disease 05/28/22 Zack Tobar [address] [place] [address] Net Repairer Pulmonology 05/28/22 Sharlene Moffett -Device nurse at Dr Treviño's Office 05/29/22 Cascara Bark Cutter Relationship Specialty Start Date End Date Alexandre Ayoub MD [address] [facility] [place] [address] PCP - General Sales And Support Center Agent 05/27/22 Lana Parker MD [address] [address] Surgeon Vascular Surgery 05/27/22 Jaime Treviño [address] [facility] [address] Autographer Internal Medicine Cardiovascular Disease 05/28/22 Zack Tobar [address] [place] [address] Net Repairer Pulmonology 05/28/22 Sharlene Moffett -Device nurse at Dr Treviño's Office 05/29/22 Cascara Bark Cutter Relationship Specialty Start Date End Date Alexandre Ayoub MD [address] [facility] [place] [address] PCP - General Sales And Support Center Agent 05/27/22 Lana Parker MD [address] [facility] [address] [place] [address] Surgeon Vascular Surgery 05/27/22 [facility] [address] [facility] [address] Autographer Internal Medicine Cardiovascular Disease 05/28/22 Zack Tobar [address] [place] [address] Net Repairer Pulmonology 05/28/22 Sharlene Moffett -Device nurse at Dr Treviño's Office 05/29/22 Cascara Bark Cutter Relationship Specialty Start Date End Date Alexandre Ayoub MD [address] [facility] [place] [address] PCP - General Sales And Support Center Agent 05/27/22 Lana Parker MD [address] [facility] [address] [place] [address] Surgeon Vascular Surgery 05/27/22 [facility] [address] [facility] [address] Autographer Internal Medicine Cardiovascular Disease 05/28/22 Zack Tobar [address] [facility] [place] [address] Net Repairer Pulmonology 05/28/22 Sharlene Moffett -Device nurse at Dr Treviño's Office 05/29/22 Cascara Bark Cutter Relationship Specialty Start Date End Date Alexandre Ayoub MD [address] [facility] [place] [address] PCP - General Sales And Support Center Agent 05/27/22 Lana Parker MD [address] [facility] [address] [place] [address] Surgeon Vascular Surgery 05/27/22 Jaime Treviño [address] [facility] [address] Autographer Internal Medicine Cardiovascular Disease 05/28/22 Zack Tobar [address] [facility] [place] [address] Net Repairer Pulmonology 05/28/22 Sharlene Moffett -Device nurse at Dr Treviño's Office 05/29/22 Cascara Bark Cutter Relationship Specialty Start Date End Date Alexandre Ayoub MD [address] [place], [place] [address] PCP - General Sales And Support Center Agent 05/27/22 Lana Parker MD [address] [facility] [address] [place] [address] Surgeon Vascular Surgery 05/27/22 Jaime Treviño [address] [facility] [address] Autographer Internal Medicine Cardiovascular Disease 05/28/22 Zack Tobar [address] [place] [address] Net Repairer Pulmonology 05/28/22 Sharlene Moffett -Device nurse at Dr Treviño's Office 05/29/22 Cascara Bark Cutter Relationship Specialty Start Date End Date Alexandre Ayoub MD [address] [place], [place] [address] PCP - General Sales And Support Center Agent 05/27/22 Lana Parker MD [address] [facility] [address] [place] [address] Surgeon Vascular Surgery 05/27/22 Jaime Treviño [address] [place] [address] Autographer Internal Medicine Cardiovascular Disease 05/28/22 Zack Tobar [address] [place] [address] Net Repairer Pulmonology 05/28/22 Sharlene Moffett -Device nurse at Dr Treviño's Office 05/29/22 Cascara Bark Cutter Relationship Specialty Start Date End Date Cathi Hayes MD [address] [place] [address] PCP - General Family Medicine 05/16/21 Cascara Bark Cutter Relationship Specialty Start Date End Date Cathi Hayes MD [address] [place], [place] [address] PCP - General Family Medicine 01/29/17 12/24/20 Cascara Bark Cutter Relationship Specialty Start Date End Date Cathi Hayes MD [address] [place], [place] [address] PCP - General Family Medicine 01/29/17 12/24/20 Scheduled Active and Recently Administ ered Medications (unrecognized section and content) Medication Order 07/08/2022 07/09/2022 07/10/2022 amiodarone (Pacerone) tablet 200 mg 200 mg, Oral, Daily, First dose on 07/06/22 at 0900, Phase II/On Unit 0806 (Given - Provider: Kaila Luke RN) 0831 (Given - Provider: Lexis Aguilar RN) 0952 (Incomplete - Provider: Gill Caro RN) amLODIPine (Norvasc) tablet 2.5 mg 2.5 mg, Oral, Daily, First dose on 07/06/22 at 1015 0806 (Given - Provider: Kaila Luke RN) 0831 (Given - Provider: Lexis Aguilar, EZEKIEL) 0952 (Incomplete - Provider: Gill Caro RN) apixaban (Eliquis) tablet 5 mg 5 mg, Oral, 2 times daily, First dose on 07/06/22 at 0900, Phase II/On Unit, Anticoagulant 0806 (Given - Provider: Kaila Luke RN)2102 (Given - Provider: Kayy Kaur RN) 08 (Given - Provider: Lexis Aguilar, EZEKIEL)2037 (Given - Provider: Fercho Peacock, EZEKIEL) 0953 (Incomplete - Provider: Gill Caro RN) aspirin chewable tablet 81 mg 81 mg, Oral, Daily, First dose on Fri07/05/22 at 1430, Recovery & On Unit 0805 (Given - Provider: Kaila Luke RN) 0831 (Given - Provider: Lexis Aguilar RN) 0952 (Incomplete - Provider: Gill Caro RN) atorvastatin (Lipitor) tablet 40 mg 40 mg, Oral, Daily, First dose on Fri07/05/22 at 2100, Phase II/On Unit 2103 (Given - Provider: Kayy Kaur RN) 2037 (Given - Provider: Fercho Peacock, EZEKIEL) busPIRone (Buspar) tablet 10 mg 10 mg, Oral, 3 times daily, First dose on Fri07/05/22 at 2100, Phase II/On Unit 0806 (Given - Provider: Kaila Luke RN)131 (Given - Provider: Kaila Luke RN)210 (Given - Provider: Kayy Kaur, EZEKIEL) 08 (Given - Provider: Lexis Aguilar, EZEKIEL)131 (Given - Provider: Lexis Aguilar RN)2038 (Given - Provider: Fercho Peacock RN) 0952 (Incomplete - Provider: Gill Caro, EZEKIEL)1400 (Canceled Entry - Provider: Automatic Discharge Provider - Comment: Automatically canceled at discontinue of medication order) clopidogrel (Plavix) tablet 75 mg 75 mg, Oral, Nightly, First dose on Fri07/05/22 at 2100, Phase II/On Unit 2102 (Given - Provider: Kayy Kaur RN) 2037 (Given - Provider: Fercho Peacock RN) furosemide (Lasix) tablet 40 mg 40 mg, Oral, 2 times daily, First dose on Fri07/07/22 at 0900 0806 (Given - Provider: Kaila Luke RN)2102 (Given - Provider: Kayy Kaur RN) 0831 (Given - Provider: Lexis Aguilar, EZEKIEL)2038 (Given - Provider: Fercho Peacock RN) 0953 (Incomplete - Provider: Gill Caro RN) gabapentin (Neurontin) capsule 300 mg 300 mg, Oral, 2 times daily, First dose on Fri07/05/22 at 1445, Phase II/On Unit 08 (Given - Provider: Kaila Luke RN)2102 (Given - Provider: Kayy Kaur RN) 0831 (Given - Provider: Lexis Aguilar, EZEKIEL)2038 (Given - Provider: Fercho Peacock RN) 0952 (Incomplete - Provider: Gill Caro RN) isosorbide mononitrate ER (Imdur) 24 hr tablet 60 mg 60 mg, Oral, Daily, First dose on Fri07/06/22 at 1015, Do not crush, chew, or split. 0805 (Given - Provider: Kaila Luke RN) 0831 (Given - Provider: Lexis Aguilar, EZEKIEL) 0952 (Incomplete - Provider: Gill Caro, EZEKIEL) lactated ringers bolus 500 mL (COMPLETED) 500 mL, IntraVENous, at 250 mL/hr, Administer over 2 Hours, Once, On Fri07/10/22 at 0645, For 1 dose 0640 (New Bag - Provider: Fercho Peacock, EZEKIEL)0840 (Stopped - Provider: Gill Caro RN) metoprolol tartrate (Lopressor) tablet 100 mg 100 mg, Oral, 2 times daily, First dose on Fri07/06/22 at 0900, Phase II/On Unit 0806 (Given - Provider: Kaila Luke RN)2100 (Not Given - Provider: Kayy Kaur RN - Reason: Contraindicated) 0831 (Given - Provider: Lexis Aguilar, EZEKIEL)2039 (Given - Provider: Fercho Peacock RN) 0952 (Incomplete - Provider: Gill Caro RN) multiple vitamin tablet 1 tablet, Oral, Daily, First dose on Fri07/06/22 at 1015 0806 (Given - Provider: Kaila Luke RN) 0831 (Given - Provider: Lexis Aguilar RN) 0952 (Incomplete - Provider: Gill Caro RN) pantoprazole (ProtoNix) EC tablet 40 mg 40 mg, Oral, Daily, First dose on Fri07/06/22 at 0900, Phase II/On Unit, Do not crush, chew, or split. 0806 (Given - Provider: Kaila Luke RN) 0831 (Given - Provider: Lexis Aguilar RN) 0900 (Canceled Entry - Provider: Automatic Discharge Provider - Comment: Automatically canceled at discontinue of medication order) potassium chloride 40 mEq in sodium chloride 0.9 % 500 mL IVPB (COMPLETED) 40 mEq, IntraVENous, at 130 mL/hr, Administer over 4 Hours, Once, On Fri07/09/22 at 0700, For 1 dose, Maximum infusion rate = 10 mEq/hour. 0833 (New Bag - Provider: Lexis Aguilar RN)1233 (Stopped - Provider: Lexis Aguilar RN) potassium chloride CR (Klor-Con M10) ER tablet 20 mEq 20 mEq, Oral, 2 times daily, First dose on 07/06/22 at 1015, Best given with food and a glass of water to minimize gastric irritation. Do not crush or chew. 0806 (Given - Provider: Kaila Luke RN)2102 (Given - Provider: Kayy Kaur RN) 0831 (Given - Provider: Lexis Aguilar, RN)2038 (Given - Provider: Fercho Peacock, RN) 0952 (Incomplete - Provider: Gill Caro RN) sodium chloride 0.9 % bolus 500 mL (COMPLETED) 500 mL, IntraVENous, at 250 mL/hr, Administer over 2 Hours, Once, On Fri07/09/22 at 1345, For 1 dose 1358 (New Bag - Provider: Lexis Aguilar, EZEKIEL)1558 (Stopped - Provider: Lexis Aguilar, RN) sodium chloride 0.9% (NS) flush 10 mL 10 mL, IntraVENous, Every 12 hours scheduled (2 times per day), First dose on Fri07/05/22 at 2100, Phase II/On Unit 08 (Given - Provider: Kaila Luke RN)2099 (Given - Provider: Kayy Kaur RN) 0900 (Not Given - Provider: Lexis Aguilar, EZEKIEL - Reason: Other)2038 (Given - Provider: Fercho Peacock, EZEKIEL) 0900 (Canceled Entry - Provider: Automatic Discharge Provider - Comment: Automatically canceled at discontinue of medication order) traZODone (Desyrel) tablet 150 mg 150 mg, Oral, Nightly, First dose on Fri07/05/22 at 2100, Phase II/On Unit 2101 (Given - Provider: Kayy Kaur, EZEKIEL) 2038 (Given - Provider: Fercho Peacock, RN) PRN Medication Order 07/08/2022 07/09/2022 07/10/2022 albuterol [...] at 1551 2040 (Given - Provider: Fercho Peacock RN) melatonin tablet 5 mg 5 mg, Oral, [...] Luke RN) 1141 (Given - Provider: Lexis Aguialr RN) sodium chloride 0.9 % infusion 5-250 [...] 6 hours PRN, nausea, vomiting, Starting on 4/21/23 at 1713, Phase II/On Unit
1st Line. [...] ider: Isaias Prakash RN)0129 (Stopped - Provider: Tahir Hall, EMT) clopidogrel (Plavix) tablet 75 mg 75 mg, [...] 0139 (Given - Provid er: Tahir Hall, EMT) furosemide (Lasix) tablet 40 mg 40 mg, [...] ized section and content) DATE CREATED AUTHOR 05/14/2023 [facility] [employer] [facility] DATE CREATED AUTHOR AUTHOR'S ORGANIZ ATION 08/25/2023 [facility] FOR RECORDS PERTAINING TO PATIENTS WHO ARE [...] BE BASED ON THE PRIMARY CLINICAL RECORDS. [employer] provides no warranty or guarantee of the accuracy or completeness of information in this document.
--- NOTE | 2024-01-06 12:45 | STRESSREP ---
Stress Test Report Pharmacologic myocardial perfusion stress test. 73-year-old lady with a history of chest pain Resting EKG demonstrates sinus tachycardia with a rate of 104 bpm. Resting blood pressure is 114/64 mmHg. 0.4 mg of regadenoson was infused per usual protocol followed by rapid intravenous saline flush injection. Continuous EKG monitoring was performed. The maximum heart rate was 118 bpm which was 80% of max impacted heart rate the maximum workload was 1 metabolic equivalent. At rest there were ST or T wave changes noted which were abnormal in the inferolateral leads and persisted throughout the infusion. No clinical angina is noted. The final blood pressure was 130/70 mmHg. Myocardial perfusion protocol. 9.5 mCi of technetium 99m sestamibi was injected at rest. 0.4 mg of regadenoson was infused per usual protocol. At peak infusion 31.7 mCi of technetium 99m sestamibi was injected stress images were obtained stress and rest images were reconstructed and compared in the short axis vertical long and horizontal long axis. Gated images were also obtained. Perfusion SPECT analysis: Review of the stress images demonstrate normal uptake of tracer noted in all areas of the myocardium. The resting images similar demonstrated normal uptake of tracer noted in all areas of the myocardium. No areas of reversibility are noted to suggest ischemia and no previous infarct is noted. Gated SPECT analysis: The gated ejection fraction is 28%. Conclusion: Normal pharmacologic myocardial perfusion stress test. Reduced ejection fraction.
== END | disposition home or self-care (01) ==
LOC: CVS 06:37
PROVIDERS: PCP Internal Medicine; Referring Provider Nurse Practitioner Gerontology; Visit Provider Nurse Practitioner Gerontology
DX: R07.9 Chest pain, unspecified (principal); Z95.5 Presence of coronary angioplasty implant and graft
CPT/HCPCS: 78452; 93017; A9500; A4216; J2785

== ENCOUNTER 2024-01-15 16:57 | Emergency (ER) | payer MEDICARE, SELFPAY ==
[2023-07-29 11:04] VITALS: BMI 29.5
[2024-01-15] VITALS (14 sets, daily range): BP systolic 128–155; BP diastolic 82–117; PULSE 98–119; RESP 18–26; TEMP 36.6; O2SAT 78–99; BMI 23.8
--- NOTE | 2024-01-15 17:32 | CT_ITS ---
EXAM: CT ANGIOGRAPHY CHEST, ABDOMEN AND PELVIS WITH INTRAVENOUS CONTRAST CLINICAL INDICATION: abd pain, hx of AAA TECHNIQUE: Helically acquired angiography images were obtained of the chest, abdomen and pelvis with intravenous contrast. This CT exam was performed using one or more of the following dose reduction techniques: automated exposure control, adjustment of the mA and/or kV according to patient size, and/or use of iterative reconstruction technique. MIP reconstructed images were created and reviewed. CONTRAST: IV 100mL [id number] RADIATION DOSE: CTDIvol = 10.92 mGy, DLP = 490.92 mGy-cm COMPARISON: No relevant prior studies available. FINDINGS: VASCULATURE: AORTA: There has been stent graft repair of abdominal aortic aneurysm. Greatest diameter of the torres martinez aneurysm sac is 5.2 cm. There is very little contrast opacification of the iliac stents and is not clear whether the iliac stents are patent. There is moderate contrast leak into the torres martinez aneurysm sac. There is no extravasation of contrast into the abdomen or retroperitoneum. No dissection. PULMONARY ARTERIES: Unremarkable. Normal in caliber. No obvious central pulmonary embolism although this study was not performed with the pulmonary embolism protocol. GREAT VESSELS OF AORTIC ARCH: Prominent calcified plaque. Normal in caliber. No dissection. CELIAC TRUNK AND MESENTERIC ARTERIES: No acute findings. No occlusion or significant stenosis. No dissection. CHEST: LUNGS AND PLEURAL SPACES: There is bilateral hyperexpansion of the lungs consistent with COPD. Moderate bilateral pleural effusions are seen with prominent compressive atelectasis in both lower lobes. There is prominent bilateral diffuse pulmonary parenchymal density most suggestive of mild diffuse pulmonary edema. However patchy areas of atelectasis or even infiltrate not excluded, especially in the left lung base. No definite mass. No pneumothorax. HEART: Moderate cardiomegaly. Prominent coronary artery calcifications. No pericardial effusion. MEDIASTINUM: Mediastinal adenopathy is suspected. Esophagus is unremarkable. No hiatal hernia. THYROID: Unremarkable. No thyroid lesions. ABDOMEN: LIVER: Unremarkable. Homogeneous. No focal mass. GALLBLADDER AND BILE DUCTS: Unremarkable. No calcified gallstones. No gallbladder distention or wall edema. No intra- or extrahepatic biliary ductal dilation. PANCREAS: Unremarkable. No focal cystic or solid mass. SPLEEN: Unremarkable. Normal size without focal cystic or solid mass. ADRENALS: Unremarkable. No nodules. KIDNEYS AND URETERS: No acute abnormalities.. Normal renal size and position. No hydronephrosis. STOMACH AND BOWEL: Evaluation of the GI tract is limited by absence of oral contrast. Cannot exclude stomach wall thickening. No dilated loops of bowel or evidence for obstruction. Cannot exclude segmental thickening of the barnett of the small or large bowel. Cannot exclude enteritis or colitis. Moderate diffuse fecal retention. Prominent diverticulosis of the sigmoid colon with a thickened wall. Cannot exclude low-grade diverticulitis. Appendix within normal limits. PELVIS: APPENDIX: No evidence of acute appendicitis. BLADDER: Unremarkable. REPRODUCTIVE: Unremarkable as visualized. No mass. CHEST, ABDOMEN and PELVIS: INTRAPERITONEAL SPACE: Unremarkable. No ascites or other fluid collection. No free air. BONES/JOINTS: Unremarkable. No suspicious lytic or blastic abnormality. SOFT TISSUES: Unremarkable. No discrete abdominal or pelvic wall hernia. LYMPH NODES: See above. CT/CTA Chst, Abd, Pel W and/or WO IMPRESSION: 1. In the chest, marked cardiomegaly. Bilateral moderate pleural effusions and compressive atelectasis of both lower lobes. Likely diffuse pulmonary edema and patchy areas of subsegmental atelectasis. Multifocal infiltrates are not excluded. Possible mediastinal adenopathy. 2. In the abdomen, patient has a 5.2 cm calcified torres martinez infrarenal abdominal aneurysm and there has been aortic biiliac stent graft. There is some extravasation of contrast into the torres martinez aneurysm sac but no evidence of retroperitoneal or intra-abdominal hemorrhage. 3. Prominent sigmoid diverticulosis. Low grade diverticulitis is not excluded. Electronically Signed: Everardo Lopez MD at 18:54 EDT ,
--- NOTE | 2024-01-15 17:32 | EKG12_ITS ---
Test Reason : AFIB Blood Pressure : */* mmHG Vent. Rate : 107 BPM Atrial Rate : * BPM P-R Int : * ms QRS Dur : 126 ms QT Int : 388 ms P-R-T Axes : * 58 -84 degrees QTcB Int : 517 ms Atrial fibrillation with rapid ventricular response Non-specific intra-ventricular conduction block T wave abnormality, consider inferior ischemia T wave abnormality, consider anterolateral ischemia Abnormal ECG Confirmed by HUYEN JEAN-BAPTISTE, TAYLOR ([id number]), assignment desk editor MAREN GRIMES ([id number]) on 01/16/2024 8:23:41 AM Referred By: Confirmed By: TAYLOR MATSNO MD
[2024-01-15] MEDS: fentaNYL 100 MCG/2 ML Ampul 25 MCG IV ×2 (17:49→20:38)
[2024-01-15] MEDS: 0.9% Normal Saline (500mL Bag) 500 ML 1000 ML IV (17:49)
[2024-01-15 18:00] LABS: Absolute Lymphocyte Count 0.83 X10^3/uL (0.83-4.51); Absolute Neutrophil Count 6.9 X10^3/uL (2.0-7.7); Basophil# 0.04 X10^3/uL; Basophil% 0.5 % (0-1); Eosinophil# 0.04 X10^3/uL; Eosinophils% 0.5 % (0-5); Hematocrit 38.2 % (37-47); Hemoglobin 12.4 g/dL (12.0-15.0); Lymphocyte # 0.83 X10^3/ul (0.83-4.51); Lymphocyte % 9.9 % (19-41); Mean Corp Hgb Conc 32.5 g/dL (32-36); Mean Corpuscular Hgb 29.8 pg (27.0-32.0); Mean Corpuscular Volume 91.8 fL (81-99); Mean Platelet Vol. 10.6 fl (6.2-12.0); Monocyte# 0.56 X10^3/uL; Monocyte% 6.7 % (0-10); NRBC Flagged by Analyzer 0 % (0-5); Neutrophil # 6.85 X10^3/uL (2.7-7.7); Neutrophil % 81.9 % (47-70); Platelet Count 273 K/mm3 (150-450); RBC Distribution Width CV 15.1 % (11.6-14.6); RBC Distribution Width SD 50.5 fl (35.1-43.9); Red Blood Count 4.16 M/mm3 (4.2-5.4); White Blood Count 8.4 K/mm3 (4.4-11.0)
[2024-01-15 18:03] LABS: International Normalized Ratio 2.7; Partial Thromboplast Time 29.4 Seconds (24.1-36.2); Prothrombin Time (Protime)PT. 28.8 SECONDS (11.7-14.9)
[2024-01-15 18:13] LABS: AST(SGOT) 17 U/L (15-37); Alanine Aminotransfer ALT/SGPT 20 U/L (13-56); Albumin, Serum 3.5 g/dL (3.2-5.0); Alkaline Phosphatase 96 U/L (45-117); Anion Gap 10 (5-15); BUN 34 mg/dL (7-18); BUN/Creat Ratio 21.5 RATIO (10-20); Bilirubin, Direct 0.42 mg/dL (0.00-0.30); Calcium,Total 8.7 mg/dL (8.5-10.1); Chloride 102 mmol/L (98-107); Creatinine, Serum 1.58 mg/dL (0.55-1.02); EST Glomerular Filtration Rate 34 mL/min (>60); Est Glom Filt Rate - Afr Amer 41 mL/min (>60); Estimated Creatinine Clearance 24.71 ml/min; Globulin 2.8 g/dL (2.2-4.2); Glucose 102 mg/dL (74-106); Lipase 23 U/L (13-75); Potassium 4.6 mmol/L (3.5-5.1); Protein, Total 6.3 g/dL (6.4-8.2); Sodium Level 130 mmol/L (136-145); Troponin-I HS (w/2H Reflex) 29 pg/mL (3.0-54.0)
--- NOTE | 2024-01-15 19:20 | EDS_ITS ---
HPI HPI - GI History of Present Illness Chief Complaint: Abd Pain Informant: patient and EMS Narrative Narrative: Brought in by EMS increasing upper abdominal pain over 3 days. No nausea or vomiting. Denies black or bloody stools. Normal bowel movements. No urinary symptoms. Upon arrival in triage she reported had dyspnea chest tightness. On the monitor per nursing noted she was A-fib with RVR. Patient states she has history of A-fib she is on Eliquis and metoprolol. She has been taking her medications. Denies any cough symptoms. Denies fever or chills. Reviewed her records noted she has no abdominal aneurysm, she was initially clear of anything was repaired. After taking at records and knowing she had an endoleak this past April she recalls it being repaired. Aneurysm was 5.3 cm. Per family later initial repair [address] Barragan. History of 10 total stents therefore is on Plavix. Prior similar symptoms: Yes PFSH PFSH Medical History Former smoker BiPAP (biphasic positive airway pressure) dependence Sleep apnea Atrial fibrillation History of fall Anxiety and depression History of ovarian cancer CKD (chronic kidney disease), stage IV Former tobacco use BELLE treated with BiPAP Chronic anticoagulation Wears glasses Wears dentures Post-menopausal Arthritis High cholesterol Pacemaker Hypertension HFrEF (heart failure with reduced ejection fraction) Carpal tunnel syndrome, bilateral Multinodular thyroid Anemia GERD (gastroesophageal reflux disease) Rheumatoid arthritis Rheumatic fever AAA (abdominal aortic aneurysm) without rupture Bilateral carotid bruits Back contusion Non-ischemic cardiomyopathy Persistent atrial fibrillation Sinus pause Tachy-erica syndrome COVID-19 (01/01/20) Smoking greater than 30 pack years Peripheral vascular occlusive disease COPD (chronic obstructive pulmonary disease) PAD (peripheral artery disease) Unstable angina pectoris due to coronary arteriosclerosis Claudication in peripheral vascular disease Essential (primary) hypertension Emphysema of lung Atherosclerotic heart disease of [place] coronary artery without angina pectoris HLD (hyperlipidemia) Non-STEMI (non-ST elevated myocardial infarction) (03/19/19) IBS (irritable bowel syndrome) Obesity Home Medications ?Medication ?Instructions ?Recorded ?Last Taken ?Type calcium 600 mg (as 1 cap PO DAILY supplement 02/22/21 12/05/21 History carbonate)-vitamin D3 12.5 mcg (500 unit) capsule (Calcium with Vit D3) apixaban 5 mg tablet (Eliquis) 5 mg PO BID blood thinner #180 tabs 12/26/21 Unknown Rx spironolactone 25 mg tablet 12.5 mg PO DAILY 09/04/23 Unknown History albuterol sulfate 90 mcg/actuation 2 puff inhalation Q6H PRN 09/24/23 Unknown Rx aerosol inhaler shortness of breath or wheezing #18 grams clopidogrel 75 mg tablet 75 mg PO DAILY antiplatelet #90 10/02/23 Unknown Rx tabs ferrous sulfate 325 mg (65 mg 325 mg PO BID supplement #180 tabs 10/02/23 Unknown Rx iron) tablet dapagliflozin propanediol 10 mg 10 mg PO DAILY #90 tabs 10/26/23 Unknown Rx tablet (Farxiga) memantine 5 mg tablet 5 mg PO QAM #90 tabs 10/26/23 Unknown Rx pantoprazole 40 mg tablet,delayed 40 mg PO DAILY GERD #90 tabs 10/26/23 Unknown Rx release atorvastatin 40 mg tablet 40 mg PO DAILY cholesterol #90 tabs 11/01/23 Unknown Rx amiodarone 200 mg tablet 200 mg PO DAILY BP #90 tabs 11/03/23 Unknown Rx duloxetine 30 mg capsule,delayed 30 mg PO DAILY mental health #30 12/04/23 Unknown Rx release caps levothyroxine 25 mcg tablet 25 mcg PO DAILY #90 tabs 12/04/23 Unknown Rx (Synthroid) trazodone 150 mg tablet 150 mg PO QHS #90 tabs 12/04/23 Unknown Rx nitroglycerin 0.4 mg sublingual 0.4 mg sublingual Q5-15M PRN chest 12/15/23 Unknown Rx tablet (Nitrostat) pain #25 tabs carvedilol 25 mg tablet 25 mg PO BID #60 tabs 12/17/23 Unknown Rx tiotropium bromide 2.5 2 inh inhalation QDAY #1 ea 12/17/23 Unknown Rx mcg/actuation mist for inhalation (Spiriva Respimat) buspirone 10 mg tablet 10 mg PO TID #270 tabs 01/05/24 Unknown Rx gabapentin 100 mg capsule 100 mg PO TID #180 caps 01/05/24 Unknown Rx fluticasone 100 mcg-salmeterol 50 1 inh inhalation BID #60 ea 01/15/24 Unknown Rx mcg/dose blistr powdr for inhalation (Advair Diskus) pramipexole 0.375 mg 0.375 mg PO QHS #90 tabs 01/15/24 Unknown Rx tablet,extended release 24 hr Allergy/AdvReac Type Severity Reaction Status Date / Time lisinopril Allergy tongue Verified 01/15/24 17:03 swelling Family History Father Heart disease Hypertension Seizures Sister Hypertension Son CVA (cerebral vascular accident) Daughter Cancer stomach Other Family history of hypertension Surgical History History of AAA (abdominal aortic aneurysm) repair S/P AAA repair Hx of cardiac cath Hx of colonoscopy Cataract extraction status History of cardioversion (07/18/20) History of permanent cardiac pacemaker placement (03/27/20) History of angioplasty of peripheral vessel History of coronary artery stent placement (03/18/19) History of colonoscopy (06/2018) Hx of hysterectomy Hx of APLL History of bilateral leg stents Status post left foot surgery History of bunionectomy of right great toe History of tonsillectomy History of left heart catheterization (11/25/19) Social History household members: other details: grandson housing: house 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al status: retired 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: worked in a [employer] Smoking Status: Former smoker quit date: 04/17/20 pack-years: 20 Electronic Cigarette Use: not used how long ago did patient quit smoking: May 2020 alcohol intake: never substance use type: does not use caffeine: No what type of physical activity do you participate in: none do you feel safe at home: Yes ROS ROS ED Constitutional Constitutional ED: Denies chills, fever(s) or sweats Eyes Eyes: Denies change in vision ENT ENT ED: Denies dysphagia or sore throat Cardiovascular Cardiovascular: Reports chest pain; Denies leg edema, palpitations or racing heartbeat Respiratory/Chest Respiratory/Chest: Reports dyspnea; Denies cough or dyspnea on exertion Gastrointestinal Gastrointestinal: Reports abdominal pain; Denies diarrhea, nausea or vomiting Genitourinary Genitourinary ED: Denies dysuria, hematuria or urinary frequency Musculoskeletal Musculoskeletal: Denies back pain, extremity pain or neck pain Integumentary Denies rash or wounds Neurologic Neurologic: Denies headache(s), paresthesias or weakness EXAM Physical Exam Const Vital Signs: 01/15/24 16:59 01/15/24 16:59 01/15/24 18:00 Temperature 97.8 F Temperature Source Oral Pulse Rate 106 H 113 H Respiratory Rate 20 H 18 Respiratory Pattern Blood Pressure 148/101 H 140/101 H 128/85 H Blood Pressure Mean 116 114 99 Pulse Ox 92 Oxygen Delivery Method Room Air Oxygen Flow Rate (L/min) Fraction of Inspired Oxygen (FIO2) 01/15/24 18:09 01/15/24 19:00 01/15/24 20:00 Temperature Temperature Source Pulse Rate 118 H 104 H Respiratory Rate 20 H 20 H Respiratory Pattern Blood Pressure 137/117 H 155/111 H Blood Pressure Mean 123 125 Pulse Ox 91 94 Oxygen Delivery Method Nasal Cannula Nasal Cannula Nasal Cannula Oxygen Flow Rate (L/min) 2 3.5 4.5 Fraction of Inspired Oxygen (FIO2) 01/15/24 20:44 01/15/24 20:47 01/15/24 20:50 Temperature Temperature Source Pulse Rate Respiratory Rate Respiratory Pattern Blood Pressure Blood Pressure Mean Pulse Ox 78 79 86 Oxygen Delivery Method High Flow High Flow High Flow Oxygen Flow Rate (L/min) 10 15 15 Fraction of Inspired Oxygen (FIO2) 01/15/24 20:51 01/15/24 21:00 01/15/24 21:09 Temperature Temperature Source Pulse Rate 102 H Respiratory Rate 23 H Respiratory Pattern Blood Pressure 131/86 H Blood Pressure Mean 101 Pulse Ox 89 88 91 Oxygen Delivery Method High Flow High Flow Airvo Oxygen Flow Rate (L/min) 15 15 50 Fraction of Inspired Oxygen (FIO2) 90 01/15/24 21:09 01/15/24 21:12 01/15/24 21:37 Temperature 97.8 F Temperature Source Pulse Rate 98 106 H Respiratory Rate 24 H 18 Respiratory Pattern Tachypnea Blood Pressure 148/86 H Blood Pressure Mean 106 Pulse Ox 91 95 95 Oxygen Delivery Method Airvo Oxygen Flow Rate (L/min) 50 Fraction of Inspired Oxygen (FIO2) 90 90 01/15/24 22:00 Temperature Temperature Source Pulse Rate 119 H Respiratory Rate 22 H Respiratory Pattern Blood Pressure 129/82 H Blood Pressure Mean 97 Pulse Ox 98 Oxygen Delivery Method Airvo Oxygen Flow Rate (L/min) 50 Fraction of Inspired Oxygen (FIO2) 90 Positive well nourished and well developed Constitutional Narrative: 2 L nasal cannula no respiratory distress. General Appearance ED: well developed and NAD HEENT Reports moist mucous membranes normocephalic and atraumatic Eyes EOMs intact bilaterally and conjunctivae normal General Eye ED: Yes normal appearance of both eyes Neck no lymphadenopathy and supple General: Negative for tenderness Chest Wall Chest: Negative for tenderness Resp normal respiratory effort and normal air movement Effort and Inspection: symmetric chest movement; Negative for respiratory distress Cardio no murmurs Rate: tachycardic Rhythm: abnormal rhythm Peripheral Pulses: pulses 2+ throughout GI normal to inspection, nondistended, normoactive bowel sounds GI Narrative: Tender to deep palpation bilateral upper abdominal. There is no pulsatile mass palpated. Palpation: Negative for guarding or rebound tenderness present Back/Spine no CVA tenderness and no thoracic nor lumbar tenderness Extremity normal to inspection General Extremety ED: Negative for edema or tenderness General Extremity: Negative for edema Neuro oriented x3 and no sensory deficits noted Sensorium / Orientation: awake and alert Skin no rashes or lesions noted and no wounds MDM MDM MDM Narrative Medical decision making narrative: Interventions / MDM: Differential diagnosis: AAA complication, atrial fibrillation, pleural effusions Diagnosis considered but do not suspect: N/A My EKG interpretation: A-fib rate of 107, no ST changes T wave inversion inferior leads and V6. T wave version in inferior leads new compared to earlier this month. No ST changes. Imaging independently reviewed and interpreted by myself: CTA chest abdomen pelvis: Extravasation stent into the aneurysm. There is no rupture noted. Per radiology report. Moderate pleural effusion bilaterally. External documents reviewed: N/A Test considered but not ordered:N/A ED course: Patient increasing abdominal pain history of AAA. No bloody stools. Known CKD however concerns with pain for complications from her abdominal stent. She is sent to CT. Fentanyl for pain control. EKG is A-fib with new T wave inversions inferior leads. Hemoglobin 12.4 white count 8.4. Creatinine 1.58. Sodium 130. Lipase normal liver enzymes normal. Troponin 29. 1900: CT scan per radiology report concerns for an endoleak that is contained in the aneurysm.Blood pressure systolic 130s. She is pain-free on reevaluation. She is on 3.5 L oxygen with her moderate pleural effusions. Questionable infiltrates per radiology report however she has no cough. With concerns of endoleak, page out to transfer to her doctors at [facility]. 193: I did discuss with transfer line at [facility] they are working on getting a physician. 2004: Heart rate 110s, systolic blood pressure 150s. Will give IV Lopressor. Noted per nursing oxygen up to 4.5 L. With her pleural effusion we will also give IV Lasix. Awaiting callback from transferring center. 2031: Called back to my nursing patient is more discomfort with difficulty breathing. Pulse ox good waveforms high 80s. Discomfort blood per systolic 170s. Will redosed with fentanyl, will monitor oxygenation. Lasix being given at this time. Will increase to high flow oxygenation if needed. 2099: Spoke with Dr. Whiting with vascular surgeon, his team did review the imagings they feel this is stable they did not want reversal of Eliquis. However discussion with her pleural effusion and her hypoxia they are more concerned as this now is her primary cause. They would like her sent to the ER so they can eval along with ER to evaluate with potential ICU evaluation. I spoke with the ED team, Dr. Barboza, discussed patient's presentation findings and history. Patient accepted under Dr. Turcios. Working on transport this time to the ED. 2109: With Lopressor heart rate 90s to low 100s blood pressure stable 130s. Patient updated. 2199: Stable on Airvo oxygenation. Blood pressure been stable. Awaiting transport to [facility] ED. Re-evaluation: stable Disposition discussed with patient/family/significant other: Patient and family Case discussed with consulting clinician: [facility] This note was generated with [employer] dictation software. It may contain incorrect words, spelling, and punctuation that were not noted in checking the note before signing. Lab Data Attestation: I reviewed the patient's lab results. Labs: Laboratory Results - last 24 hr 01/15/24 01/15/24 01/15/24 17:35 17:44 19:48 WBC 8.4 RBC 4.16 L Hgb 12.4 Hct 38.2 MCV 91.8 MCH 29.8 MCHC 32.5 RDW Std Deviation 50.5 H RDW Coeff of Natalie 15.1 H Plt Count 273 MPV 10.6 Immature Gran % (Auto) 0.500 Neut % (Auto) 81.9 H Lymph % (Auto) 9.9 L [place] % (Auto) 6.7 Eos % (Auto) 0.5 Baso % (Auto) 0.5 Absolute Neuts (auto) 6.9 Absolute Lymphs (auto) 0.83 Nucleated RBC % 0 PT 28.8 H INR 2.7 APTT 29.4 Sodium 130 L Potassium 4.6 Chloride 102 Carbon Dioxide 18.0 L Anion Gap 10 BUN 34 H Creatinine 1.58 H Estim Creat Clear Calc 24.71 Est GFR (MDRD) Af Amer 41 L Est GFR (MDRD) Non-Af 34 L BUN/Creatinine Ratio 21.5 H Glucose 102 Calcium 8.7 Total Bilirubin 1.30 H Direct Bilirubin 0.42 H AST 17 ALT 20 Alkaline Phosphatase 96 Troponin I High Sens 29 41 Total Protein 6.3 L Albumin 3.5 Globulin 2.8 Lipase 23 Blood Type A POSITIVE Antibody Screen NEGATIVE Radiography Diagnostic Testing: Clinical Impression(s) from Imaging Studies Chest/Abdomen/Pelvis CTA 01/15/24 17:32 IMPRESSION: 1. In the chest, marked cardiomegaly. Bilateral moderate pleural effusions and compressive atelectasis of both lower lobes. Likely diffuse pulmonary edema and patchy areas of subsegmental atelectasis. Multifocal infiltrates are not excluded. Possible mediastinal adenopathy. 2. In the abdomen, patient has a 5.2 cm calcified [place] infrarenal abdominal aneurysm and there has been aortic biiliac stent graft. There is some extravasation of contrast into the [place] aneurysm sac but no evidence of retroperitoneal or intra-abdominal hemorrhage. 3. Prominent sigmoid diverticulosis. Low grade diverticulitis is not excluded. Electronically Signed: Everardo Lopez MD at 18:54 EDT , Critical Care Time Critical Care Time: Yes Critical care time (excluding procedures): 30-74 minutes, Discussing w/Patient &/or Family/Cold Meat Cook, Discussing w/Consultants, Arranging Admission or Tr angel, Performing Direct Patient Care at Bedside and - (40 minutes) Discharge Plan Triage Chief Complaint: Abd Pain ED Provider: Raffi Huitron Dx/Rx/DC Orders Clinical Impression: Endoleak of aortic graft, Abdominal pain, Atrial fibrillation, Pleural effusion, bilateral, Chronic anticoagulation, CAD (coronary artery disease), CKD (chronic kidney disease) Prescriptions: No Action calcium carbonate-vitamin D3 [Calcium 600 with Vitamin D3] 600 mg(1,500mg) - 500 unit capsule 1 cap PO DAILY albuterol sulfate 90 mcg/actuation HFA aerosol inhaler 2 puff inhalation Q6H PRN (Reason: shortness of breath or wheezing) Qty: 18 6RF spironolactone 25 mg tablet 12.5 mg PO DAILY clopidogrel 75 mg tablet 75 mg PO DAILY Qty: 90 3RF ferrous sulfate 325 mg (65 mg iron) tablet 325 mg PO BID Qty: 180 0RF trazodone 150 mg tablet 150 mg PO QHS Qty: 90 0RF duloxetine 30 mg capsule,delayed release(DR/EC) 30 mg PO DAILY Qty: 30 5RF levothyroxine [Synthroid] 25 mcg tablet 25 mcg PO DAILY Qty: 90 0RF carvedilol 25 mg tablet 25 mg PO BID Qty: 60 11RF Rx Instructions: must administer with a meal/food Eliquis 5 mg tablet 5 mg PO BID Qty: 180 3RF dapagliflozin propanediol [Farxiga] 10 mg tablet 10 mg PO DAILY Qty: 90 0RF memantine 5 mg tablet 5 mg PO QAM Qty: 90 0RF pantoprazole 40 mg tablet,delayed release (DR/EC) 40 mg PO DAILY Qty: 90 0RF atorvastatin 40 mg tablet 40 mg PO DAILY Qty: 90 0RF amiodarone 200 mg tablet 200 mg PO DAILY Qty: 90 3RF nitroglycerin [Nitrostat] 0.4 mg tablet, sublingual 0.4 mg sublingual Q5-15M PRN (Reason: chest pain) Qty: 25 3RF Rx Instructions: do not exceed 3 doses per episode Spiriva Respimat 2.5 mcg/actuation mist 2 inh inhalation QDAY Qty: 1 6RF Rx Instructions: administer at approximately the same time(s) each day buspirone 10 mg tablet 10 mg PO TID Qty: 270 0RF gabapentin 100 mg capsule 100 mg PO TID Qty: 180 0RF fluticasone propion-salmeterol [Advair Diskus] 100-50 mcg/dose blister with device 1 inh inhalation BID Qty: 60 0RF pramipexole 0.375 mg tablet extended release 24 hr 0.375 mg PO QHS Qty: 90 0RF Primary Care Provider: Opal Ayoub Referrals: Opal Ayoub MD [Primary Care Provider] - Print Language: Citizen Of [place] Disposition Disposition: DC/Tx to Another Type of HCF
[2024-01-15 19:44] LABS: Reflex Troponin-HS? (from REC) Y
[2024-01-15 20:13] LABS: Troponin-I HS 41 pg/mL (3.0-54.0)
[2024-01-15] MEDS: Furosemide 40 MG/4 ML Vial IV (20:18)
[2024-01-15] MEDS: Metoprolol Tartrate 5 MG/5 ML Vial IV (20:25)
--- NOTE | 2024-01-15 20:52 | ED.RN ---
Dr. Huitron and nurse at bedside with pt adjusting oxygen level to maintain oxygen saturation level above 88%.
--- NOTE | 2024-01-15 21:12 | ED.RN ---
CALLED PHYSICIANS FOR PRIORITY 1 -[facility], DISPATCH SAID 2 HRS.
[2024-01-16] VITALS: BP 141/85; PULSE 106; RESP 22; O2SAT 96
[2024-01-16 00:17] VITALS: PULSE 109; RESP 12; RESP 31; O2SAT 97
[2024-01-16 01:00] VITALS: BP 162/144; PULSE 105; RESP 30; O2SAT 95
[2024-01-16 01:18] VITALS: BP 153/84; PULSE 111; RESP 27; O2SAT 97
[2024-01-16] MEDS: Diltiazem 125 MG in Dextrose 5%-Water (100mL Bag) 100 ML IV (01:18)
--- NOTE | 2024-01-16 01:23 | ED.RN ---
Physicians here and refused to transport patient, [facility] called for ground critical care transport, no ground crew available, helicopter requested due to emergent need in getting patient to facility.
--- NOTE | 2024-01-16 01:41 | ED.RN ---
IV cardizem drip stopped per [facility] flight. No cardizem drip upon transfer.
== END 2024-01-16 01:56 | disposition other institution (70) ==
PROVIDERS: Emergency Provider Emergency Medicine; PCP Internal Medicine; Visit Provider Emergency Medicine
DX: R10.10 Upper abdominal pain, unspecified (principal); N18.4 Chronic kidney disease, stage 4 (severe); I50.22 Chronic systolic (congestive) heart failure; I13.0 Hypertensive heart and chronic kidney disease with heart failure and stage 1 through stage 4 chronic kidney disease, or unspecified chronic kidney disease; J44.9 Chronic obstructive pulmonary disease, unspecified; I48.19 Other persistent atrial fibrillation; Z79.01 Long term (current) use of anticoagulants; I25.10 Atherosclerotic heart disease of native coronary artery without angina pectoris; E78.00 Pure hypercholesterolemia, unspecified; Z87.891 Personal history of nicotine dependence; Z90.710 Acquired absence of both cervix and uterus; Z79.899 Other long term (current) drug therapy; Z95.5 Presence of coronary angioplasty implant and graft; Z79.02 Long term (current) use of antithrombotics/antiplatelets; Z85.43 Personal history of malignant neoplasm of ovary; G47.33 Obstructive sleep apnea (adult) (pediatric); Z99.81 Dependence on supplemental oxygen; I25.2 Old myocardial infarction; Z79.84 Long term (current) use of oral hypoglycemic drugs; Z95.0 Presence of cardiac pacemaker; Z79.51 Long term (current) use of inhaled steroids; Z98.49 Cataract extraction status, unspecified eye; J90 Pleural effusion, not elsewhere classified; I97.89 Other postprocedural complications and disorders of the circulatory system, not elsewhere classified
CPT/HCPCS: 71275; 74174; 80048; 80076; 83690; 84484; 85025; 85610; 85730; 86850; 86900; 86901; 93005; 94002; 94660; 96361; 96365; 96375; 96376; 99285; J7040; Q9967; A4216; J1940

== ENCOUNTER → 2024-04-25 | Emergency (ER) | payer MEDICARE, MEDICAID, SELFPAY ==
[2023-07-29 11:04] VITALS: BMI 29.5
[2024-04-25 05:40] VITALS: PULSE 32; PULSE 40; TEMP 35.5; O2SAT 100; BMI 23.6
--- NOTE | 2024-04-25 06:05 | EX.ED.CRITCA ---
HPI History of Present Illness Chief Complaint: CPR Narrative Narrative: Chief complaint and HPI: Shortness of breath, cardiopulmonary arrest. 74-year-old female presents via EMS in cardiopulmonary arrest. EMS received a call for shortness of breath. Shortly after their arrival patient became unresponsive without pulse. ACLS protocol was initiated. Reported rhythm was asystole/PEA. Normal glucose. Patient received epinephrines prior to arrival. Downtime approximately 10 to 15 minutes. Unknown CODE STATUS. Only family available at the house was a 15-year-old autistic grandson. Review of systems: Unable to be performed secondary to critical condition Medications: Per chart Allergies: Per chart PFSH: Per chart Vital signs: As listed on the chart. Reviewed. Physical exam: Gen: Unresponsive Head: Normocephalic, atraumatic Eyes: Fixed, dilated, unreactive CV: Pulseless, CPR in progress Resp: No spontaneous breathing, being bagged masked with supraglottic airway-emesis in the airway GI: Abd soft, distended Musc: No spontaneous movement, unresponsive Skin: Cold, pale Neuro: Unresponsive PFSH PFSH Medical History Former smoker BiPAP (biphasic positive airway pressure) dependence Sleep apnea Atrial fibrillation History of fall Anxiety and depression History of ovarian cancer CKD (chronic kidney disease), stage IV Former tobacco use BELLE treated with BiPAP Chronic anticoagulation Wears glasses Wears dentures Post-menopausal Arthritis High cholesterol Pacemaker Hypertension HFrEF (heart failure with reduced ejection fraction) Carpal tunnel syndrome, bilateral Multinodular thyroid Anemia GERD (gastroesophageal reflux disease) Rheumatoid arthritis Rheumatic fever AAA (abdominal aortic aneurysm) without rupture Bilateral carotid bruits Back contusion Non-ischemic cardiomyopathy Persistent atrial fibrillation Sinus pause Tachy-erica syndrome COVID-19 (01/01/20) Smoking greater than 30 pack years Peripheral vascular occlusive disease COPD (chronic obstructive pulmonary disease) PAD (peripheral artery disease) Unstable angina pectoris due to coronary arteriosclerosis Claudication in peripheral vascular disease Essential (primary) hypertension Emphysema of lung Atherosclerotic heart disease of [place] coronary artery without angina pectoris HLD (hyperlipidemia) Non-STEMI (non-ST elevated myocardial infarction) (03/19/19) IBS (irritable bowel syndrome) Obesity Home Medications ?Medication ?Instructions ?Recorded ?Last Taken ?Type calcium 600 mg (as 1 cap PO DAILY supplement 02/22/21 12/05/21 History carbonate)-vitamin D3 12.5 mcg (500 unit) capsule (Calcium with Vit D3) apixaban 5 mg tablet (Eliquis) 5 mg PO BID blood thinner #180 tabs 12/26/21 Unknown Rx spironolactone 25 mg tablet 12.5 mg PO DAILY 09/04/23 Unknown History albuterol sulfate 90 mcg/actuation 2 puff inhalation Q6H PRN 09/24/23 Unknown Rx aerosol inhaler shortness of breath or wheezing #18 grams clopidogrel 75 mg tablet 75 mg PO DAILY antiplatelet #90 10/02/23 Unknown Rx tabs ferrous sulfate 325 mg (65 mg 325 mg PO BID supplement #180 tabs 10/02/23 Unknown Rx iron) tablet memantine 5 mg tablet 5 mg PO QAM #90 tabs 10/26/23 Unknown Rx atorvastatin 40 mg tablet 40 mg PO DAILY cholesterol #90 tabs 11/01/23 Unknown Rx amiodarone 200 mg tablet 200 mg PO DAILY BP #90 tabs 11/03/23 Unknown Rx levothyroxine 25 mcg tablet 25 mcg PO DAILY #90 tabs 12/04/23 Unknown Rx (Synthroid) nitroglycerin 0.4 mg sublingual 0.4 mg sublingual Q5-15M PRN chest 12/15/23 Unknown Rx tablet (Nitrostat) pain #25 tabs tiotropium bromide 2.5 2 inh inhalation QDAY #1 ea 12/17/23 Unknown Rx mcg/actuation mist for inhalation (Spiriva Respimat) fluticasone 100 mcg-salmeterol 50 1 inh inhalation BID #60 ea 01/15/24 Unknown Rx mcg/dose blistr powdr for inhalation (Advair Diskus) cholecalciferol (vitamin D3) 25 25 mcg PO QDAY #90 caps 02/25/24 Unknown Rx mcg (1,000 unit) capsule losartan 25 mg tablet 25 mg PO DAILY #90 tabs 02/25/24 Unknown Rx metoprolol succinate 50 mg 50 mg PO BID #180 tabs 02/25/24 Unknown Rx tablet,extended release 24 hr pramipexole 1.5 mg tablet,extended 1.5 mg PO QHS #30 tabs 02/25/24 Unknown Rx release 24 hr (Mirapex ER) torsemide 20 mg tablet 20 mg PO QDAY #90 tabs 02/25/24 Unknown Rx buspirone 15 mg tablet 15 mg PO TID #90 tabs 03/26/24 Unknown Rx dapagliflozin propanediol 10 mg See Rx Instructions .Route 03/26/24 Unknown Rx tablet (Farxiga) .COMPLEX #90 TABLETS dicyclomine 10 mg capsule 10 mg PO 4X/DAY ibs #120 caps 03/26/24 Unknown Rx duloxetine 30 mg capsule,delayed 30 mg PO DAILY mental health #90 03/26/24 Unknown Rx release caps gabapentin 100 mg capsule 100 mg PO TID #180 caps 03/26/24 Unknown Rx pantoprazole 40 mg tablet,delayed 40 mg PO DAILY GERD #90 tabs 03/26/24 Unknown Rx release trazodone 150 mg tablet 150 mg PO QHS #90 tabs 03/26/24 Unknown Rx Allergy/AdvReac Type Severity Reaction Status Date / Time lisinopril Allergy tongue Verified 03/26/24 10:47 swelling Family History Father Heart disease Hypertension Seizures Sister Hypertension Son CVA (cerebral vascular accident) Daughter Cancer stomach Other Family history of hypertension Surgical History History of AAA (abdominal aortic aneurysm) repair S/P AAA repair Hx of cardiac cath Hx of colonoscopy Cataract extraction status History of cardioversion (07/18/20) History of permanent cardiac pacemaker placement (03/27/20) History of angioplasty of peripheral vessel History of coronary artery stent placement (03/18/19) History of colonoscopy (06/2018) Hx of hysterectomy Hx of APLL History of bilateral leg stents Status post left foot surgery History of bunionectomy of right great toe History of tonsillectomy History of left heart catheterization (11/25/19) Social History household members: other details: grandson housing: house 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al status: retired 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 EMS was called out to the house for shortness of breath. Patient became unresponsive shortly after their arrival. On arrival patient is in cardiopulmonary arrest. [place] device is in place. Supraglottic airway and being bagged mask. There is emesis in the supraglottic airway. On arrival, patient was due for pulse check. Asystole. CPR was resumed. Epinephrine given. Given concern for airway protection, patient was intubated while CPR was in progress. Patient received multiple rounds of CPR, epinephrine, bicarb, calcium chloride but remained in asystole with occasional PEA. Final rhythm on the monitor was PEA. Ultrasound showed no cardiac activity. Patient was declared on 04/25/2024 at 0554. 20 minutes of critical care time utilized in managing the patient. This is due to high probability of and deterioration of the patient based on the patient's condition and excludes any separately billable procedures. Endotracheal Intubation Indication: Cardiopulmonary arrest Consent: Emergent Procedure: CPR in progress with ACLS protocol. Patient was unresponsive and therefore did not receive medication. Her upper dentures were removed. Cricoid pressure was maintained from the time the induction agent was given to the time of cuff balloon inflation. The supraglottic airway was removed and patient had copious amount of emesis in her throat. This was suctioned out. Using a glide laryngoscope and a size 7 endotracheal tube with stylet, the patient was intubated on the first attempt. The stylet was removed, and the cuff balloon was inflated. Appropriate endotracheal tube position was confirmed by direct visualization of vocal cord passage, fogging of the tube, CO2 colorimetric indicator and symmetric breath sounds. The tube was secured at 23 cm at the lips Impression: 1. Cardiopulmonary arrest, 2. Reported shortness of breath 3. Emesis Discharge Plan Triage Chief Complaint: CPR ED Provider: Donis Carter Dx/Rx/DC Orders Prescriptions: No Action calcium carbonate-vitamin D3 [Calcium 600 with Vitamin D3] 600 mg(1,500mg) -500 unit capsule 1 cap PO DAILY albuterol sulfate 90 mcg/actuation HFA aerosol inhaler 2 puff inhalation Q6H PRN (Reason: shortness of breath or wheezing) Qty: 18 6RF spironolactone 25 mg tablet 12.5 mg PO DAILY clopidogrel 75 mg tablet 75 mg PO DAILY Qty: 90 3RF ferrous sulfate 325 mg (65 mg iron) tablet 325 mg PO BID Qty: 180 0RF levothyroxine [Synthroid] 25 mcg tablet 25 mcg PO DAILY Qty: 90 0RF duloxetine 30 mg capsule,delayed release(DR/EC) 30 mg PO DAILY Qty: 90 1RF gabapentin 100 mg capsule 100 mg PO TID Qty: 180 0RF trazodone 150 mg tablet 150 mg PO QHS Qty: 90 0RF Farxiga 10 mg tablet See Rx Instructions .ROUTE .COMPLEX Qty: 90 0RF Dose Instruction: TAKE 1 TABLET BY MOUTH DAILY Rx Instructions: TAKE 1 TABLET BY MOUTH DAILY pantoprazole 40 mg tablet,delayed release (DR/EC) 40 mg PO DAILY Qty: 90 0RF dicyclomine 10 mg capsule 10 mg PO 4X/DAY Qty: 120 2RF buspirone 15 mg tablet 15 mg PO TID Qty: 90 2RF Eliquis 5 mg tablet 5 mg PO BID Qty: 180 3RF memantine 5 mg tablet 5 mg PO QAM Qty: 90 0RF atorvastatin 40 mg tablet 40 mg PO DAILY Qty: 90 0RF amiodarone 200 mg tablet 200 mg PO DAILY Qty: 90 3RF nitroglycerin [Nitrostat] 0.4 mg tablet, sublingual 0.4 mg sublingual Q5-15M PRN (Reason: chest pain) Qty: 25 3RF Rx Instructions: do not exceed 3 doses per episode Spiriva Respimat 2.5 mcg/actuation mist 2 inh inhalation QDAY Qty: 1 6RF Rx Instructions: administer at approximately the same time(s) each day fluticasone propion-salmeterol [Advair Diskus] 100-50 mcg/dose blister with device 1 inh inhalation BID Qty: 60 0RF torsemide 20 mg tablet 20 mg PO QDAY Qty: 90 3RF metoprolol succinate 50 mg tablet extended release 24 hr 50 mg PO BID Qty: 180 3RF losartan 25 mg tablet 25 mg PO DAILY Qty: 90 3RF pramipexole [Mirapex ER] 1.5 mg tablet extended release 24 hr 1.5 mg PO QHS Qty: 30 1RF cholecalciferol (vitamin D3) 25 mcg (1,000 unit) capsule 25 mcg PO QDAY Qty: 90 0RF Primary Care Provider: Opal Ayoub Referrals: Opal Ayoub MD [Primary Care Provider] - Print Language: Panamanian
--- NOTE | 2024-04-25 06:16 | ED.RN ---
pt received around 500cc of Normal Saline
--- NOTE | 2024-04-25 06:34 | ED.RN ---
approx 500ml normal saline given
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
== END ==
PROVIDERS: Emergency Provider Surgery; PCP Internal Medicine; Visit Provider Surgery
DX: I46.9 Cardiac arrest, cause unspecified (principal); N18.4 Chronic kidney disease, stage 4 (severe); I13.0 Hypertensive heart and chronic kidney disease with heart failure and stage 1 through stage 4 chronic kidney disease, or unspecified chronic kidney disease; I50.22 Chronic systolic (congestive) heart failure; J43.9 Emphysema, unspecified; R11.10 Vomiting, unspecified; I25.10 Atherosclerotic heart disease of native coronary artery without angina pectoris; E78.00 Pure hypercholesterolemia, unspecified; R40.4 Transient alteration of awareness; K21.9 Gastro-esophageal reflux disease without esophagitis; R06.02 Shortness of breath
CPT/HCPCS: 31500; 92950; 99285; A4216